=== PATIENT | male | born 1960 | race Caucasian/White ===

== ENCOUNTER → 2016-05-15 | Outpatient (CLI) | payer BC ==
[~2016-05-15] MED LIST: ASPI-808 PO; HYDR-3720 PO; TRAM50TA2 PO
[2016-05-15 11:01] LABS: BASOPHILS % (AUTO) 0 % (0-10); EOSINOPHILS # (AUTO) 0.2 10^3/uL (0.0-0.3); EOSINOPHILS % (AUTO) 3 % (0-10); LYMPHOCYTES # (AUTO) 2.2 X 10^3 (1.0-4.0); LYMPHOCYTES % (AUTO) 31 % (12-44); MEAN CORPUSCULAR HEMOGLOBIN 32 PG (25-34); MEAN CORPUSCULAR HGB CONC 36 G/DL (32-36); MEAN CORPUSCULAR VOLUME 90 FL (80-99); MEAN PLATELET VOLUME 10.5 FL (7.4-10.4); MONOCYTES # (AUTO) 0.4 X 10^3 (0.0-1.0); MONOCYTES % (AUTO) 6 % (0-12); NEUTROPHILS # (AUTO) 4.2 X 10^3 (1.8-7.8); NEUTROPHILS % (AUTO) 59 % (42-75); PLATELET COUNT 172 10^3/uL (130-400); RED BLOOD COUNT 4.81 10^6/uL (4.35-5.85); RED CELL DISTRIBUTION WIDTH 12.9 % (10.0-14.5); WHITE BLOOD COUNT 7.1 10^3/uL (4.3-11.0)
[2016-05-15 11:22] LABS: ALANINE AMINOTRANSFERASE 24 U/L (0-55); ALBUMIN 4.1 G/DL (3.2-4.5); ANION GAP 6 MMOL/L (5-14); ASPARTATE AMINO TRANSFERASE 23 U/L (5-34); BILIRUBIN,TOTAL 0.4 MG/DL (0.1-1.0); BLOOD UREA NITROGEN 10 MG/DL (7-18); BUN/CREATININE RATIO 10; CALCIUM 9.3 MG/DL (8.5-10.1); CARBON DIOXIDE 27 MMOL/L (21-32); CHLORIDE 107 MMOL/L (98-107); CHOLESTEROL 194 MG/DL (< 200); CREATININE SERUM 0.97 MG/DL (0.60-1.30); DIRECT LDL 136 MG/DL (1-129); GFR ESTIMATED > 60; GLUCOSE 147 MG/DL (70-105); MAGNESIUM 2.2 MG/DL (1.8-2.4); SODIUM 140 MMOL/L (135-145); TOTAL PROTEIN 7.5 G/DL (6.4-8.2); TRIGLYCERIDES 196 MG/DL (<150); VLDL CHOLESTEROL 39 MG/DL (5-40)
[2016-05-15 11:44] LABS: THYROID STIMULATING HORMONE 0.64 UIU/ML (0.35-4.94)
== END ==
LOC: LAB 10:39
PROVIDERS: ATTEND Internal Medicine Cardiovascular Disease
DX: I70.212 Atherosclerosis of native arteries of extremities with intermittent claudication, left leg (principal); R94.31 Abnormal electrocardiogram [ECG] [EKG]; Z72.0 Tobacco use
CPT/HCPCS: 36415; 80053; 80061; 83735; 84443; 85025

== ENCOUNTER → 2016-06-03 | Outpatient (CLI) | payer BC | LOC: RAD 11:46 | PROVIDERS: ATTEND Internal Medicine Cardiovascular Disease | DX: I70.212 Atherosclerosis of native arteries of extremities with intermittent claudication, left leg (principal); Z72.0 Tobacco use; R94.31 Abnormal electrocardiogram [ECG] [EKG] | CPT/HCPCS: 93923 ==

== ENCOUNTER 2016-07-22 07:27 | Day surgery (SDC) | payer BC ==
[2016-07-22] VITALS (10 sets, daily range): BP systolic 113–136; BP diastolic 54–81
[~2016-07-22] VITALS: Ht 193 cm; Wt 72.6 kg
[2016-07-22] MEDS ORDERED: NS IV 1000 ML 1,000 ML ONE (07:30)
[2016-07-22] MEDS ORDERED: LIDOCAINE 1% INJ 20 ML (XYLOCAINE) VIAL ONE ×3 (07:30→08:54)
[2016-07-22] MEDS ORDERED: HEParin (CATH LAB) 2,000 ML IV ONE (07:30)
[2016-07-22] MEDS ORDERED: PRAV20TA3 PO (07:49)
[2016-07-22 07:56] LABS: MEAN PLATELET VOLUME 10.3 FL (7.4-10.4); RED BLOOD COUNT 4.7 10^6/uL (4.35-5.85); RED CELL DISTRIBUTION WIDTH 12.9 % (10.0-14.5); WHITE BLOOD COUNT 7.1 10^3/uL (4.3-11.0)
[2016-07-22] MEDS ORDERED: NS IV 1000 ML 1,000 ML IV SCH (08:00)
[2016-07-22 08:05] LABS: INR 0.9 (0.8-1.4); PROTHROMBIN TIME PATIENT 12.2 SEC (12.2-14.7)
[2016-07-22 08:14] LABS: ANION GAP 11 MMOL/L (5-14); BLOOD UREA NITROGEN 12 MG/DL (7-18); BUN/CREATININE RATIO 13; CALCIUM 9.2 MG/DL (8.5-10.1); CARBON DIOXIDE 26 MMOL/L (21-32); CHLORIDE 104 MMOL/L (98-107); CREATININE SERUM 0.95 MG/DL (0.60-1.30); GFR ESTIMATED > 60; GLUCOSE 90 MG/DL (70-105); POTASSIUM 3.3 MMOL/L (3.6-5.0); SODIUM 141 MMOL/L (135-145)
[2016-07-22 08:15] LABS: ALANINE AMINOTRANSFERASE 23 U/L (0-55); ALBUMIN 4.2 G/DL (3.2-4.5); ASPARTATE AMINO TRANSFERASE 23 U/L (5-34); BILIRUBIN,TOTAL 0.7 MG/DL (0.1-1.0); CHOLESTEROL 160 MG/DL (< 200); DIRECT LDL 94 MG/DL (1-129); TOTAL PROTEIN 7.8 G/DL (6.4-8.2); TRIGLYCERIDES 224 MG/DL (<150); VLDL CHOLESTEROL 45 MG/DL (5-40)
[2016-07-22] MEDS ORDERED: diphenhydrAMINE 50 MG/ML INJ (BENADRYL) ONE (08:27)
[2016-07-22] MEDS ORDERED: MIDAZOLAM 5 MG/5 ML (VERSED) VIAL ONE (08:27)
[2016-07-22] MEDS ORDERED: fentaNYL INJECTION 100 MCG/2 ML AMP ONE ×2 (08:27→15:11)
[2016-07-22] MEDS ORDERED: HEParin 1000 UNIT/ML (10ML VIAL) FOR BOLUS ONE (09:17)
[2016-07-22] MEDS ORDERED: NITROGLYCERIN DRIP 25 MG/D5W 0 ML IV ONE (09:17)
[2016-07-22] MEDS ORDERED: CLOPIDOGREL 300 MG (PLAVIX) TABLET PO ONE (10:33)
[2016-07-22] MEDS ORDERED: ASPIRIN 81 MG CHEW (CHILDREN'S ASA) ONE (10:33)
[2016-07-22] MEDS ORDERED: PATIENT MAY USE OWN MEDS, ALL PO SCH (12:30)
--- NOTE | 2016-07-22 13:05 | Cardiac Procedure Note-CS/ASA ---
Pre-Procedure Note Pre-Op Procedure Note H&P Reviewed The H&P was reviewed, patient examined and no changes noted. Date H&P Reviewed: Jul 22, 2016 Time H&P Reviewed: 08:30 Conscious Sedation Pre-Proced Time Reviewed: 08:30 ASA Class: 3 Airway Mallampati Classification: (wichita appropriate class) I. II. III, IV Lungs Heart ASA score ASA 1: a normal healthy patient ASA 2: a patient with a mild systemic disease (mid diabetes, controlled hypertension, obesity ASA 3: a patient with a severe systemic disease that limits activity (angina , COPD, prior Myocardial infarction) ASA 4: a patient with an incapacitating disease that is a constant threat to life (CHF, renal failure) ASA 5: a moribund patient not expected to survive 24 hrs. (ruptured aneurysm) ASA 6: a declared brain patient whose organs are being harvested. For emergent operations, add the letter E after the classification Grade 2 Sedation Plan: Analgesia, Amnesia, Plan communicated to team members, Discussed options with patient/fam, Discussed risks with patient/fam Note The patient is an appropriate candidate to undergo the planned procedure, sedation, and anesthesia. The patient immediately re-assessed prior to indication. ZEE SOUSA MD FACP FACC CCDS Jul 22, 2016 13:05
--- NOTE | 2016-07-22 13:26 | CARDIAC CATHETERIZATION ---
DATE OF SERVICE: 07/22/2016 PERIPHERAL ANGIOGRAPHY AND INTERVENTION REPORT INDICATION FOR PROCEDURE: The patient is a 56-year-old man who has multiple coronary artery disease risk factors and is known to have peripheral arterial disease. He has been experiencing leg claudication and segmental pressures have been normal and indicative of significant bilateral peripheral arterial disease. Informed consent was obtained for peripheral angiography and ad hoc peripheral intervention, if needed. PROCEDURE: He was brought to the cardiac catheterization laboratory in a fasting state. Both groins were prepared and draped in the usual sterile fashion. Lidocaine 1% for local anesthesia. With considerable difficulty, we were able to access the right common femoral artery and able to advance a 5-[place] sheath using the Seldinger technique. This allowed angiography of the abdominal aorta with a 5-[place] pigtail catheter. The pigtail was then pulled back to the level just above the aortoiliac bifurcation and bilateral leg artery angiography was performed with runoff down to the level of the ankles. PERCUTANEOUS INTERVENTION TO THE LEFT COMMON ILIAC, RIGHT COMMON ILIAC AND LEFT EXTERNAL ILIAC ARTERIES: Following completion of the diagnostic procedure, we gained access into the left common femoral artery using the Seldinger technique. This was with the intent to carry out percutaneous intervention to the left common and external iliac arteries that were completely occluded. We used a 6-[place] sheath. We were then able to advance a [employer] wire across the lesion and the tip of the wire was placed in the descending thoracic aorta and we subsequently carried out balloon angioplasty with 7.0 mm x 100 mm balloon and an 8.0 mm x 60 mm balloon. The patient had a previously placed stent in the left common iliac artery, which is known to be an 8 mm x 57 mm stent placed by Dr. Muhammad at [facility] in 05/2013. Following balloon angioplasty, antegrade flow was restored. However, there was still considerable stenosis beyond the distal edge of the stent in the left external iliac artery. We proceeded with stenting to this part of the vessel. We used a self-expanding 7.0 mm x 100 mm stent. This was deployed to cover the lesion. The proximal portion of the stent extends into the distal portion of the previous stent. We then carried out balloon angioplasty of the overlapping areas in the middle portion of the newly placed stent with an 8.0 mm x 60 mm balloon. Full stent expansion was demonstrated. The stenosis was reduced from 100% to 0% and there was normal antegrade flow in the iliac and femoral arteries on the left side. During the balloon expansion of the proximal left common iliac artery, we also carried out kissing balloon angioplasty of the ostia of both common iliac arteries. On the L side we used first 7.0 x 100 mm balloon and then 8 x 60 mm baloon. On the right side, after exchanging the sheath over a wire for a 6-[place] sheath, we had advanced an 0.035 inch wire, over which we were able to advance a 7.0 mm x 60 mm balloon for kissing balloon angioplasty. The patient received a total of 6000 units of intravenous heparin. At the end of the procedure, we had carried out angiography of the femoral artery through the sheath, but the site of sheath deployment was not suitable for device closure. The sheaths were sutured in place and the patient was transferred to the floor for manual sheath removal. He tolerated the procedure well. ABDOMINAL AORTIC ANGIOGRAPHY: Did not indicate any significant abdominal aortic aneurysm or dissection. The renal arteries do not exhibit significant disease. The left common iliac artery was found to be occluded in its proximal portion. BILATERAL ILIAC ARTERY ANGIOGRAPHY: Indicated complete proximal occlusion of the left common iliac artery. This was a long lesion extending down to the distal portion of the left common iliac artery. To this, successful balloon angioplasty, followed by stenting, was carried out as detailed above. Following balloon angioplasty and stenting, there is 0% residual stenosis. The superficial and deep femoral arteries and the popliteal arteries on the left side are intact and do not exhibit significant disease. There is a 3-vessel runoff on the left side. On the right side, the left common iliac artery had approximately 50-60% stenosis. Kissing balloon angioplasty was carried out to both ostia (both common iliac arteries) and there is less than 30% residual stenosis in both ostia. The right external iliac artery, the right common femoral and the right deep femoral arteries are intact. The right superficial femoral artery is occluded in its distal portion. The very distal part of the right superficial femoral artery reconstitutes via collaterals and the popliteal artery is intact with an intact trifurcation. CONCLUSIONS: 1. 100% occlusion of the proximal left common iliac and the left external iliac arteries, to which successful balloon angioplasty and, then, successful stenting was carried out today, as detailed above. Following balloon angioplasty to a previously placed 8.0 mm x 57 mm stent (05/[address] Muhammad at [facility]) and placement of a new 7.0 mm x 100 mm stent in the left common and external iliac arteries, there is 0% residual stenosis and there is normal antegrade flow. 2. Balloon angioplasty of the ostia of both common iliac arteries with a residual stenosis of less than 30%. 3. 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 DISCUSSION AND RECOMMENDATIONS: Dual antiplatelet therapy has been initiated. He is being hospitalized for observation after today's procedure. Risk factor modification has been reviewed. Further recommendations will be based on the hospital course. Job ID: [id number] DocumentID: [id number] Dictated Date: 07/22/2016 10:46:38 Crm Coordinator Date: 07/22/2016 12:23:37 Dictated By: ZEE SOUSA MD, MA, FACP, FACC, MTDD
[2016-07-22] MEDS ORDERED: ATROPINE INJ 0.4 MG/ML SDV ONE (13:43)
[2016-07-22] MEDS: NS IV 1000 ML 1,000 ML IV SCH ×2 (15:08→22:27)
[2016-07-22] MEDS: fentaNYL INJECTION 100 MCG/2 ML AMP IVP PRN ×4 (16:41→22:08)
[2016-07-22] MEDS ORDERED: SIMvastatin 10 MG (ZOCOR) TAB PO SCH (21:00)
[2016-07-23] VITALS: BP 136/64
[2016-07-23] MEDS: fentaNYL INJECTION 100 MCG/2 ML AMP IVP PRN ×3 (00:45→05:48)
[2016-07-23 04:00] VITALS: BP 111/66
[2016-07-23 04:11] LABS: MEAN PLATELET VOLUME 10.7 FL (7.4-10.4); RED BLOOD COUNT 4.46 10^6/uL (4.35-5.85); RED CELL DISTRIBUTION WIDTH 12.7 % (10.0-14.5); WHITE BLOOD COUNT 8.6 10^3/uL (4.3-11.0)
[2016-07-23 04:27] LABS: ANION GAP 10 MMOL/L (5-14); BLOOD UREA NITROGEN 10 MG/DL (7-18); BUN/CREATININE RATIO 13; CALCIUM 8.7 MG/DL (8.5-10.1); CARBON DIOXIDE 21 MMOL/L (21-32); CHLORIDE 107 MMOL/L (98-107); GFR ESTIMATED > 60; GLUCOSE 108 MG/DL (70-105); POTASSIUM 3.9 MMOL/L (3.6-5.0); SODIUM 138 MMOL/L (135-145)
[2016-07-23 08:00] VITALS: BP 109/69
--- NOTE | 2016-07-23 08:08 | Progress Note-Cardiology ---
Cardiology SOAP Progress Note Subjective: No leg or groin discomfort No cp or palp or syncope Wishes to go home Objective: I&O/Vital Signs Vital Sign - Last 12Hours 07/22/16 07/22/16 07/23/16 07/23/16 21:00 22:00 00:00 01:00 Temp 99.8 Pulse 96 95 111 104 Resp 16 11 16 B/P (MAP) 118/62 127/64 136/64 Pulse Ox 99 99 98 07/23/16 04:00 Temp 100.1 Pulse 105 Resp 18 B/P (MAP) 111/66 Pulse Ox 96 Intake and Output 07/23/16 00:00 Intake Total 1900 ml Balance 1900 ml Weight (Pounds): 160 Weight (Ounces): 0.0 Weight (Calculated Kilograms): [id number] Groin site without hematoma: Yes Bruising: moderated bruising (mild bruising in the R groin; mod bruising and mild swelling in the L groin) Constitutional: AAO x 3, well-developed, well-nourished Respiratory: No accessory muscle use, No respiratory distress, lungs clear to percussion, lungs clear to auscultation Cardiovascular: regular rate-rhythm, S1 and S2, systolic murmur (soft MARCO A at cardiac base) Gastrointestional: No tender, soft, No guarding, No rebound, audible bowel sounds Extremities: No clubbing, No cyanosis, No significant edema Neurologic/Psychiatric: oriented x 3, grossly intact, power is 5/5 both on sides Skin: No rash on exposed areas, No ulcerations on exposed areas Results/Procedures: Labs Laboratory Tests 07/22/16 13:02: Activated Partial Thromboplast Time 50H 07/23/16 03:39: White Blood Count 8.6, Red Blood Count 4.46, Hemoglobin 14.0, Hematocrit 40, Mean Corpuscular Volume 90, Mean Corpuscular Hemoglobin 31, Mean Corpuscular Hemoglobin Concent 35, Red Cell Distribution Width 12.7, Platelet Count 163, Mean Platelet Volume 10.7H, Sodium Level 138, Potassium Level 3.9, Chloride Level 107, Carbon Dioxide Level 21, Anion Gap 10, Blood Urea Nitrogen 10, Creatinine 0.80, Estimat Glomerular Filtration Rate > 60, BUN/Creatinine Ratio 13, Glucose Level 108H, Calcium Level 8.7 Laboratory Tests 07/22/16 07:45 07/23/16 03:39 A/P: Assessment: PAD. Last peripheral angio and intervention on 07/22/16: 1) 100% occlusion of the proximal left common iliac and the left external iliac arteries, to which successful balloon angioplasty and, then, successful stenting was carried out today, as detailed above. Following balloon angioplasty to a previously placed 8.0 mm x 57 mm stent (05/[address] Muhammad at [facility]) and placement of a new 7.0 mm x 100 mm stent in the left common and external iliac arteries, there is 0% residual stenosis and there is normal antegrade flow. 2) Balloon angioplasty of the ostia of both common iliac arteries with a residual stenosis of less than 30%. 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 Trivial to mild MR and TR. No evidence of significant valvular stenosis. 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
[2016-07-23] MEDS ORDERED: ASPI-999 PO (08:16)
[2016-07-23] MEDS ORDERED: CLOP75TA28 PO (08:16)
--- NOTE | 2016-07-23 08:16 | Discharge Inst-Post CATH ---
Discharge Inst-CATH Post Cardiac Cath D/C Inst Follow Up/Plan F/u at our office next week CARDIAC CATH DISCHARGE INSTRUCTIONS *Hold Metformin for 48 hours post heart cath. ACTIVITY * Go Home directly and rest. * Limit activity of the leg (or wrist if it was used) for 7 days including aerobics, swimming, jogging, bicycling, etc. * Restrict stair-climbing for 7 days if possible, if not, climb up with your non -cath leg, then bring together on the same step. * Avoid lifting, pushing, pulling or excessive movement of the affected extremity for 7 days. * Customary sexual activity may be resumed after 2 days-use caution not to use a position that strains or causes pain to the affected extremity. * No driving for 24 hours. * NO SMOKING. * Avoid straining for bowel movements for 7 days. * Gentle walking on level ground is allowed. * Returning to work will depend on the type of procedure and the results. Your doctor will discuss this with you. CALL YOUR DOCTOR FOR ANY OF THE FOLLOWING: *If bleeding from the puncture site occurs- Apply gentle pressure to site with clean cloth and call your doctor or EMS. * If a knot or lump forms under the skin, increases in size, or causes pain. * If bruising appears to be worsening or moving further down your leg instead of disappearing. * Temperature above 101 F. CARE OF YOUR GROIN INCISION; * Bruising or purple discoloration of the skin near the puncture site is common. * You may shower only, no bathtub bathing for 5 days. Be careful to avoid slipping as your leg may feel stiff. * If a closure device was used on your femoral artery, please see the attached guide regarding care of the device and your leg. * REMOVE the dressing from your groin the next day after your procedure in the shower. CARE OF YOUR WRIST INCISION; * Bruising or purple discoloration of the skin near the puncture site is common. * You may shower. * DO NOT submerge wrist. * Remove dressing in 24 hours. ZEE SOUSA MD [facility] CCDS Jul 23, 2016 08:16
--- NOTE | 2016-07-23 08:17 | Discharge Inst-Cardiology ---
Discharge Inst-Cardiac Discharge Medications New Medications: Aspirin (Aspirin) 81 Mg Tab.chew 81 MG PO DAILY, #90 TAB 3 Refills Clopidogrel Bisulfate (Clopidogrel) 75 Mg Tablet 75 MG PO DAILY for 90 Days, #90 TAB 3 Refills Continued Medications: Pravastatin Sodium (Pravastatin Sodium) 20 Mg Tablet 20 MG PO DAILY, TAB Discontinued Medications: Aspirin (Aspirin) 325 Mg Tablet 325 MG PO DAILY, TAB Patient Instructions Patient Instructions: No tobacco use ZEE SOUSA MD FACP FAC CCDS Jul 23, 2016 08:17
--- NOTE | 2016-07-23 08:21 | Cardiology Discharge Summary ---
Diagnosis/Chief Complaint Date of Admission 07/22/16 Date of Discharge 07/23/16 Final/Discharge Diagnosis PAD. Last peripheral angio and intervention on 07/22/16: 1) 100% occlusion of the proximal left common iliac and the left external iliac arteries, to which successful balloon angioplasty and, then, successful stenting was carried out today, as detailed above. Following balloon angioplasty to a previously placed 8.0 mm x 57 mm stent (05/[address] Muhammad at [facility]) and placement of a new 7.0 mm x 100 mm stent in the left common and external iliac arteries, there is 0% residual stenosis and there is normal antegrade flow. 2) Balloon angioplasty of the ostia of both common iliac arteries with a residual stenosis of less than 30%. 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 Trivial to mild MR and TR. No evidence of significant valvular stenosis. 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 Please refer to peripheral angio and intervention report For condition at discharge please refer to today's progress note Time spent in pt interview, exam, labs review, discussion of results, answering questions, preparing discharge, and writing notes: 7:50 am to 8:20 Discharge Summary Procedures None. Hospital Course Pending Labs Laboratory Tests 07/23/16 03:39: White Blood Count 8.6, Red Blood Count 4.46, Hemoglobin 14.0, Hematocrit 40, Mean Corpuscular Volume 90, Mean Corpuscular Hemoglobin 31, Mean Corpuscular Hemoglobin Concent 35, Red Cell Distribution Width 12.7, Platelet Count 163, Mean Platelet Volume 10.7, Sodium Level 138, Potassium Level 3.9, Chloride Level 107, Carbon Dioxide Level 21, Anion Gap 10, Blood Urea Nitrogen 10, Creatinine 0.80, Estimat Glomerular Filtration Rate > 60, BUN/Creatinine Ratio 13, Glucose Level 108, Calcium Level 8.7 Discussion & Recommendations Home Medications Reviewed patient Home Medication Reconciliation Form Discharge Home Medications: Reviewed and agree with Discharge Medication list on patient's Discharge Instruction sheet Instructions to patient/family F/u at our office next week ZEE SOUSA MD FACP FACC CCDS Jul 23, 2016 08:21
[2016-07-23] MEDS ORDERED: ASPIRIN E.C. 81 MG (ECOTRIN) TAB PO SCH (09:00)
[2016-07-23] MEDS ORDERED: CLOPIDOGREL 75 MG (PLAVIX) TABLET PO SCH (09:00)
== END 2016-07-23 09:20 | disposition home or self-care (01) ==
LOC: CATH 07:27 → ICU 10:38 → CATH 07-23 09:20
PROVIDERS: ATTEND Internal Medicine Cardiovascular Disease
DX: I70.213 Atherosclerosis of native arteries of extremities with intermittent claudication, bilateral legs (principal); I70.92 Chronic total occlusion of artery of the extremities; R94.31 Abnormal electrocardiogram [ECG] [EKG]; Z72.0 Tobacco use; Z95.820 Peripheral vascular angioplasty status with implants and grafts
CPT/HCPCS: 36200; 36415; 37220; 37221; 75625; 75716; 80048; 80053; 80061; 85027; 85347; 85610; 85730; 87081; 93005

== ENCOUNTER 2016-08-05 07:07 | Day surgery (SDC) | payer BC ==
[~2016-08-05 07:07] MED LIST changes: +ASPI-999 PO; +CLOP75TA28 PO; +PRAV20TA3 PO
[2016-08-05] MEDS ORDERED: HEParin (CATH LAB) 2,000 ML IV ONE (07:10)
[2016-08-05] MEDS ORDERED: NS IV 1000 ML 1,000 ML ONE (07:10)
[2016-08-05] MEDS ORDERED: NITROGLYCERIN DRIP 25 MG/D5W 0 ML IV ONE (07:53)
[2016-08-05] MEDS ORDERED: diphenhydrAMINE 50 MG/ML INJ (BENADRYL) ONE (07:53)
[2016-08-05] MEDS ORDERED: MIDAZOLAM 5 MG/5 ML (VERSED) VIAL ONE ×2 (07:53→09:31)
[2016-08-05] MEDS ORDERED: HEParin 1000 UNIT/ML (10ML VIAL) FOR BOLUS ONE (07:53)
[2016-08-05] MEDS ORDERED: fentaNYL INJECTION 100 MCG/2 ML AMP ONE ×2 (07:53→09:15)
[2016-08-05] MEDS ORDERED: NS IV 1000 ML 1,000 ML IV SCH (08:00)
[2016-08-05] MEDS ORDERED: CLOPIDOGREL 300 MG (PLAVIX) TABLET PO ONE (11:14)
[2016-08-05] MEDS ORDERED: ASPIRIN 81 MG CHEW (CHILDREN'S ASA) ONE (11:14)
[2016-08-05] MEDS ORDERED: PATIENT MAY USE OWN MEDS, ALL PO SCH (11:15)
[2016-08-05] MEDS: fentaNYL INJECTION 100 MCG/2 ML AMP IVP PRN ×2 (15:29→16:30)
[2016-08-05] MEDS: NS IV 1000 ML 1,000 ML IV SCH ×2 (15:30→21:18)
[2016-08-05] MEDS ORDERED: ACETAMINOPHEN 500 MG TAB (TYLENOL) PO PRN (18:00)
[2016-08-05] MEDS ORDERED: TEMAZEPAM 15 MG (RESTORIL) CAP PO PRN (18:00)
[2016-08-05] MEDS ORDERED: SIMvastatin 10 MG (ZOCOR) TAB PO SCH (21:00)
[2016-08-06] MEDS: NS IV 1000 ML 1,000 ML IV SCH (07:59)
[2016-08-06] MEDS ORDERED: ASPIRIN 81 MG CHEW (CHILDREN'S ASA) PO SCH (09:00)
[2016-08-06] MEDS ORDERED: CLOPIDOGREL 75 MG (PLAVIX) TABLET PO SCH (09:00)
== END 2016-08-06 10:15 | disposition home or self-care (01) ==
DX: I70.213 Atherosclerosis of native arteries of extremities with intermittent claudication, bilateral legs (principal); I45.10 Unspecified right bundle-branch block; I70.92 Chronic total occlusion of artery of the extremities; Z79.899 Other long term (current) drug therapy; Z72.0 Tobacco use; Z95.820 Peripheral vascular angioplasty status with implants and grafts

== ENCOUNTER 2017-01-29 07:27 | Observation (INO) | payer BC ==
[2017-01-29] VITALS (12 sets, daily range): BP systolic 105–138; BP diastolic 52–90
[~2017-01-29] VITALS: Ht 193 cm; Wt 72.4 kg
[2017-01-29] MEDS ORDERED: NS IV 1000 ML 1,000 ML IV ONE (07:34)
[2017-01-29] MEDS ORDERED: NALOXONE 2 MG/2 ML (NARCAN) SYR IV ONE (07:45)
[2017-01-29 07:57] LABS: BASOPHILS % (AUTO) 0 % (0-10); EOSINOPHILS # (AUTO) 0.4 10^3/uL (0.0-0.3); EOSINOPHILS % (AUTO) 4 % (0-10); LYMPHOCYTES # (AUTO) 1.5 X 10^3 (1.0-4.0); LYMPHOCYTES % (AUTO) 15 % (12-44); MEAN CORPUSCULAR HEMOGLOBIN 31 PG (25-34); MEAN CORPUSCULAR HGB CONC 35 G/DL (32-36); MEAN CORPUSCULAR VOLUME 89 FL (80-99); MEAN PLATELET VOLUME 10.1 FL (7.4-10.4); MONOCYTES # (AUTO) 0.6 X 10^3 (0.0-1.0); MONOCYTES % (AUTO) 6 % (0-12); NEUTROPHILS # (AUTO) 7.2 X 10^3 (1.8-7.8); NEUTROPHILS % (AUTO) 75 % (42-75); PLATELET COUNT 205 10^3/uL (130-400); RED BLOOD COUNT 4.74 10^6/uL (4.35-5.85); RED CELL DISTRIBUTION WIDTH 12.8 % (10.0-14.5); WHITE BLOOD COUNT 9.6 10^3/uL (4.3-11.0)
[2017-01-29 08:18] LABS: ALANINE AMINOTRANSFERASE 34 U/L (0-55); ALBUMIN 4.1 GM/DL (3.2-4.5); ALCOHOL < 10 MG/DL (<10); ANION GAP 11 MMOL/L (5-14); ASPARTATE AMINO TRANSFERASE 30 U/L (5-34); BILIRUBIN,TOTAL 0.5 MG/DL (0.1-1.0); BLOOD UREA NITROGEN 13 MG/DL (7-18); BUN/CREATININE RATIO 15; CALCIUM 8.9 MG/DL (8.5-10.1); CARBON DIOXIDE 24 MMOL/L (21-32); CHLORIDE 103 MMOL/L (98-107); CREATININE SERUM 0.85 MG/DL (0.60-1.30); GFR ESTIMATED > 60; GLUCOSE 92 MG/DL (70-105); POTASSIUM 4.2 MMOL/L (3.6-5.0); SALICYLATE < 5.0 MG/DL (5.0-20.0); SODIUM 138 MMOL/L (135-145); TOTAL PROTEIN 7.6 GM/DL (6.4-8.2)
--- NOTE | 2017-01-29 08:20 | Diagnostic Imaging Report ---
PROCEDURE: CT head and CT cervical spine without contrast. TECHNIQUE: Multiple contiguous axial images were obtained through the brain and cervical spine without the use of intravenous contrast. Sagittal and coronal reformations through the cervical spine were then performed. INDICATION: Injury. FINDINGS: CT head: No intracranial hemorrhage, edema, or mass effect. The brain parenchyma demonstrates symmetric basal ganglial calcifications with no focal edema or mass effect seen. No hydrocephalus. No extra-axial fluid collection is seen. The calvarium, the paranasal sinuses, and orbits appear grossly unremarkable. CT cervical spine: There is satisfactory alignment of the cervical spine. The vertebral body heights are preserved. Disc heights are also preserved. No significant posterior osteophytes are seen. There is moderate narrowing of the left neural foramen at C3-C4 from osteophytes of the adjacent uncovertebral and facet joints. No fracture is seen. IMPRESSION: CT head: No intracranial hemorrhage. CT cervical spine: No fracture seen. Dictated by: Dictated on workstation # [id number]
[2017-01-29 08:22] LABS: ACETAMINOPHEN < 10 UG/ML (10-30)
--- NOTE | 2017-01-29 08:33 | ED Psychosocial ---
General Chief Complaint: Altered Mental Status Stated Complaint: OD,ETOH Nursing Triage Note: PT BROUGHT IN BY [facility] WITH C/O POSSIBLE OVERDOSE. PT STATES THAT THEY WERE "DRINKING A LITTLE" LAST NOC AND GOT INTO AN ARGUMENT. SHE STATES THAT AROUND MIDNIGHT PT REPORTEDLY TOOK AN UNKNOWN AMOUNT OF 3 MG LUNESTA. THERE APPEARS TO BE 6 PILLS MISSING FROM BOTTLE. PT IS DROWSY UPON ARRIVAL, BUT AWAKENS TO VERBAL STIMULI. PT ALSO STATES THAT PT STATED SHE WOULD BE BETTER OFF WITHOUT HIM PRIOR TO TAKING PILLS. PT ALSO HAS ABRASIONS TO FACE AND KNEE. C COLLAR PLACED AT THIS TIME PER DR ASHER. Source: patient, family, EMS Exam Limitations: clinical condition History of Present Illness Time seen by provider: 07:29 Initial Comments This 56 gentleman presents to the emergency room via EMS after overdosing on Lunesta. His activated EMS after she noted he was not able to walk or otherwise function on his own. He was incontinent of urine. EMS had reported no fall but upon 's arrival, she notes he did fall into a doorway. He has minor abrasions on his left knee and his right forehead/face. GCS is 13. reports they got into an argument when drinking alcohol last night regarding use of an e-cigarette and sharing it with their son. Patient became upset and stated he took 15-20 Lunesta. His received that text message around 21: 30. states he has never expressed any serious suicidal ideation in the past. Although EMS was unaware of trauma, a c-collar was placed upon arrival as the abrasions were noted. Based on date of filling and pelvic count in the Lunesta bottle, it is estimated that he took between 6 and 20 tablets. Poison control was contacted and recommended observation and IV hydration. Patient's overdosing with this quantity of Lunesta rarely require invasive support. Vital signs are normal upon arrival. Patient is answering some questions but is not coherent. He repeatedly asks for coffee. Allergies and Home Medications Allergies Coded Allergies: Penicillins (Unverified Allergy, Mild, 10/24/08) cefaclor (Unverified Allergy, Mild, 10/24/08) Home Medications Aspirin 81 Mg Tab.chew, 81 MG PO DAILY, #90 Ref 3 Prescribed by: ZEE SOUSA on 07/23/16 0816 Clopidogrel Bisulfate 75 Mg Tablet, 75 MG PO DAILY for 90 Days, #90 Ref 3 Prescribed by: ZEE SOUSA on 07/23/16 0816 Pravastatin Sodium 20 Mg Tablet, 20 MG PO DAILY, (Reported) Constitutional: see HPI EENTM: see HPI Respiratory: no symptoms reported Cardiovascular: no symptoms reported Gastrointestinal: no symptoms reported Genitourinary: no symptoms reported Musculoskeletal: see HPI Skin: see HPI Psychiatric/Neurological: See HPI Past Zjbuvsr-Lnvfhw-Ndsvdz Hx Patient Social History Alcohol Use: Occasionally Uses Recreational Drug Use: No Smoking Status: Current Everyday Smoker Type Used: Cigarettes Recent Foreign Travel: No Contact w/Someone Who Travel: No Recent Infectious Disease Expo: No Recent Hopitalizations: No Physical Abuse: No Sexual Abuse: No Seasonal Allergies Seasonal Allergies: No Surgeries History of Surgeries: Yes (RIGHT HAND FINGER AMPUTATION, HERNIAS X2 INGUINAL, TOE TENDON, AORTIC STENT) Respiratory History of Respiratory Disorde: No Cardiovascular History of Cardiac Disorders: Yes (HX OF AORTIC STENT) Cardiac Disorders: Deep Vein Thrombosis Neurological History of Neurological Disord: No Genitourinary History of Genitourinary Disor: No Gastrointestinal History of Gastrointestinal Di: No Musculoskeletal History of Musculoskeletal Dis: No Endocrine History of Endocrine Disorders: No HEENT History of HEENT Disorders: No Cancer History of Cancer: No Psychosocial History of Psychiatric Problem: Yes Behavioral Health Disorders: Sleep Difficulties Suicide Risk Score: 6 Integumentary History of Skin or Integumenta: No Physical Exam Vital Signs Vital Sign - Last 12Hours 01/29/17 07:30 Temp 96.7 Pulse 78 Resp 7 B/P (MAP) 145/91 (109) Pulse Ox 98 O2 Delivery Room Air Capillary Refill : Less Than 3 Seconds General Appearance: WD/WN, other (hypersomnolent) HEENT: PERRL/EOMI, normal ENT inspection, pharynx normal Neck: non-tender, supple, normal inspection Respiratory: lungs clear, normal breath sounds, no respiratory distress, no accessory muscle use Cardiovascular: regular rate, rhythm, no edema, no murmur Gastrointestinal: normal bowel sounds, non tender, soft Extremities: no pedal edema, other (mild abrasion on left knee) Neurologic/Psychiatric: other (hypersomnolent, does respond to questions but not appropriately, moves all 4 extremities independently, GCS 13) Skin: normal color, warm/dry Progress/Results/Core Measures Results/Orders Lab Results Laboratory Tests Test 01/29/17 07:39 01/29/17 07:49 Range/Units Glucometer 100 70-110 MG/DL White Blood Count 9.6 4.3-11.0 10^3/uL Red Blood Count 4.74 4.35-5.85 10^6/uL Hemoglobin 14.8 13.3-17.7 G/DL Hematocrit 42 40-54 % Mean Corpuscular Volume 89 80-99 FL Mean Corpuscular Hemoglobin 31 25-34 PG Mean Corpuscular Hemoglobin Concent 35 32-36 G/DL Red Cell Distribution Width 12.8 10.0-14.5 % Platelet Count 205 130-400 10^3/uL Mean Platelet Volume 10.1 7.4-10.4 FL Neutrophils (%) (Auto) 75 42-75 % Lymphocytes (%) (Auto) 15 12-44 % Monocytes (%) (Auto) 6 0-12 % Eosinophils (%) (Auto) 4 0-10 % Basophils (%) (Auto) 0 0-10 % Neutrophils # (Auto) 7.2 1.8-7.8 X 10^3 Lymphocytes # (Auto) 1.5 1.0-4.0 X 10^3 Monocytes # (Auto) 0.6 0.0-1.0 X 10^3 Eosinophils # (Auto) 0.4 H 0.0-0.3 10^3/uL Basophils # (Auto) 0.0 0.0-0.1 10^3/uL Sodium Level 138 135-145 MMOL/L Potassium Level 4.2 3.6-5.0 MMOL/L Chloride Level 103 98-107 MMOL/L Carbon Dioxide Level 24 21-32 MMOL/L Anion Gap 11 5-14 MMOL/L Blood Urea Nitrogen 13 7-18 MG/DL Creatinine 0.85 0.60-1.30 MG/DL Estimat Glomerular Filtration Rate > 60 BUN/Creatinine Ratio 15 Glucose Level 92 70-105 MG/DL Calcium Level 8.9 8.5-10.1 MG/DL Total Bilirubin 0.5 0.1-1.0 MG/DL Aspartate Amino Transf (AST/SGOT) 30 5-34 U/L Alanine Aminotransferase (ALT/SGPT) 34 0-55 U/L Alkaline Phosphatase 73 40-136 U/L Total Protein 7.6 6.4-8.2 GM/DL Albumin 4.1 3.2-4.5 GM/DL Salicylates Level < 5.0 L 5.0-20.0 MG/DL Acetaminophen Level < 10 L 10-30 UG/ML Serum Alcohol < 10 <10 MG/DL My Orders Orders - JUS ASHER MD Ct Head/Cervical Spine Wo (01/29/17 07:34) Acetaminophen (01/29/17 07:34) Alcohol (01/29/17 07:34) Cbc With Automated Diff (01/29/17 07:34) Comprehensive Metabolic Panel (01/29/17 07:34) Drug Screen Stat (Urine) (01/29/17 07:34) Salicylate (01/29/17 07:34) Thyroid Analyzer (01/29/17 07:34) Ua Culture If Indicated (01/29/17 07:34) Accucheck Stat ONCE (01/29/17 07:34) Saline Lock/Iv-Start (01/29/17 07:34) Ns Iv 1000 Ml (Sodium Chloride 0.9%) (01/29/17 07:34) Accucheck Stat ONCE (01/29/17 07:34) Naloxone Injection (Narcan Injection) (01/29/17 07:45) Medications Given in ED Current Medications Medications Dose Ordered Sig/Marilee Route Start Time Stop Time Status Last Admin Dose Admin Sodium Chloride 1,000 ml @ 0 mls/hr Q0M ONCE IV 01/29/17 07:34 01/29/17 07:37 DC 01/29/17 08:17 0 MLS/HR Vital Signs/I&O Vital Sign - Last 12Hours 01/29/17 07:30 Temp 96.7 Pulse 78 Resp 7 B/P (MAP) 145/91 (109) Pulse Ox 98 O2 Delivery Room Air Blood Pressure Mean: 109 Point of Care Testing Finger Stick Blood Glucose: 100 Progress Note : Progress Note IV hydration was initiated. Patient was gradually becoming more alert and talkative. Narcan was considered but not administered as patient was improving and reports there are no narcotics in the home. Presentation is consistent with Lunesta overdose. Patient will be admitted to the ICU for observation in anticipation of a psychiatric evaluation when he is alert enough. Diagnostic Imaging Diagonstic Imaging: CT Plain Films/CT/US/NM/MRI: c-spine, head Comments CT head and C-spine viewed by me and report reviewed. See report below: NAME: WILLIAM AVILA [facility] REC#: [id number] PT STATUS: REG ER : 1960 PHYSICIAN: JUS ASHER MD ADMIT DATE: 01/29/17/ER Draft Date of Exam:01/29/17 CT HEAD/CERVICAL SPINE WO PROCEDURE: CT head and CT cervical spine without contrast. TECHNIQUE: Multiple contiguous axial images were obtained through the brain and cervical spine without the use of intravenous contrast. Sagittal and coronal reformations through the cervical spine were then performed. INDICATION: Injury. FINDINGS: CT head: No intracranial hemorrhage, edema, or mass effect. The brain parenchyma demonstrates symmetric basal ganglial calcifications with no focal edema or mass effect seen. No hydrocephalus. No extra-axial fluid collection is seen. The calvarium, the paranasal sinuses, and orbits appear grossly unremarkable. CT cervical spine: There is satisfactory alignment of the cervical spine. The vertebral body heights are preserved. Disc heights are also preserved. No significant posterior osteophytes are seen. There is moderate narrowing of the left neural foramen at C3-C4 from osteophytes of the adjacent uncovertebral and facet joints. No fracture is seen. IMPRESSION: CT head: No intracranial hemorrhage. CT cervical spine: No fracture seen. Dictated on workstation # [id number] Dict: 01/29/17 0807 Trans: 01/29/17 0820 [id number] Interpreted by: CECY PARMAR MD Departure Communication (Admissions) Time/Spoke to Admitting Phy: 08:[address] Shrestha Time/Spoke to Consulting Phy: 08:47 Communication/Consulting Dr. Green Impression Impression: Primary Impression: Medication overdose Qualified Codes: T50.902A - Poisoning by unspecified drugs, medicaments and biological substances, intentional self-harm, initial encounter Additional Impression: Altered mental status Qualified Codes: R40.1 - Stupor Disposition: 09 ADMITTED INPATIENT Condition: Improved Admissions Decision to Admit Reason: Admit from ER (General) Decision to Admit/Date: Jan 29, 2017 Time/Decision to Admit Time: 07:40 Departure-Patient Inst. Referrals: SYLVIA SHRESTHA DO (PCP/Family) Primary Care Physician JUS ASHER MD Jan 29, 2017 08:33
[2017-01-29] MEDS ORDERED: CATHETER FLUSH 10 ML SYR IV PRN (09:30)
[2017-01-29] MEDS ORDERED: ONDANSETRON 4 MG/2 ML (SDV) Z0FRAN IV PRN (09:30)
[2017-01-29] MEDS ORDERED: ASPI81TA42 PO (11:09)
[2017-01-29] MEDS ORDERED: ESZO3TAB38 PO (11:09)
[2017-01-29] MEDS ORDERED: CLOP75TA69 PO (11:09)
[2017-01-29] MEDS ORDERED: INFLUENZA TRIvalent 2017-2018 0.5 ML/45 MCG SYR IM ONE (12:15)
[2017-01-29] MEDS: NS IV 1000 ML 1,000 ML IV SCH ×2 (13:40→17:30)
--- NOTE | 2017-01-29 18:31 | History & Physicial ---
History of Present Illness History of Present Illness Reason for visit/HPI This is a 56 year old male who was brought to the emergency room via EMS after ingestion of an unknown amount of Lunesta. He and his had been drinking the night before and got into an argument over and e-cigarette that he was sharing with their son. He apparently then took lunesta and his became concerned when she was unable to arouse him. He had also sustained a fall at some point and had abrasions to his right knee and left face. His CT of the head and cervical spine were negative in the emergency room. Poison control was contacted and the protocol for lunesta overdose is observation as it has to wear off and intubation is rarely needed. He will be admitted to the ICU and will have a psych evaluation once medically stable and awake and alert. Date of Admission Jan 29, 2017 at 8:42 am Date Seen by Provider: Jan 29, 2017 Time Seen by Provider: 18:26 I consulted on this patient on 01/29/17 18:26 Attending Physician Janneth Shrestha DO Admitting Physician Janneth Shrestha DO Consult Allergies and Home Medications Allergies Coded Allergies: Penicillins (Unverified Allergy, Mild, 10/24/08) cefaclor (Unverified Allergy, Mild, 10/24/08) Home Medications Aspirin 81 Mg Tab.chew, 81 MG PO DAILY, (Reported) Clopidogrel Bisulfate 75 Mg Tablet, 75 MG PO DAILY, (Reported) Eszopiclone 3 Mg Tablet, 3 MG PO HS, (Reported) Past Gpfgqul-Dmdrvz-Wjbkxc Hx Patient Social History Alcohol Use: Occasionally Uses Recreational Drug Use: No Smoking Status: Current Everyday Smoker Type Used: Electronic/Vapor Physical Abuse Screen: No Sexual Abuse: No Recent Foreign Travel: No Contact w/other who traveled: No Recent Hopitalizations: No Recent Infectious Disease Expo: No Seasonal Allergies Seasonal Allergies: No Surgeries Yes (RIGHT HAND FINGER AMPUTATION, HERNIAS X2 INGUINAL, TOE TENDON, AORTIC STENT ) Respiratory No Cardiovascular Yes (HX OF AORTIC STENT, multiple stents to lorin. lower extremities) Deep Vein Thrombosis Neurological No Reproductive System Sexually Transmitted Disease: No HIV/AIDS: No Genitourinary No Gastrointestinal No Musculoskeletal No Endocrine History of Endocrine Disorders: No HEENT History of HEENT Disorders: No Cancer No Psychosocial History of Psychiatric Problem: Yes Behavioral Health Disorders: Sleep Difficulties, Suicide Attempts Integumentary History of Skin or Integumenta: No Blood Transfusions History of Blood Disorders: No Adverse Reaction to a Blood Tr: No Constitutional: malaise EENTM: No see HPI, No no symptoms reported, No ear discharge, No hearing loss, No ear pain, No blurred vision, No double vision, No eye pain, No tearing, No vision loss, No dental problems, No hoarseness, No mouth pain, No mouth swelling , No epistaxis, No nose congestion, No nose pain, No throat pain, No throat swelling, No other Respiratory: No no symptoms reported, No see HPI, No cough, No dyspnea on exertion, No hemoptysis, No orthopnea, No phlegm, No short of breath, No stridor , No wheezing, No other Cardiovascular: No no symptoms reported, No see HPI, No chest pain, No edema, No Hx of Intervention, No palpitations, No syncope, No vascular heart diseas, No other Gastrointestinal: No RUQ, No LUQ, No RLQ, No LLQ, No no symptoms reported, No see HPI, No abdominal pain, No constipation, No diarrhea, No dysphagia, No hematemesis, No heartburn, No jaundice, No loss of appetite, No melena, No nausea, No vomiting, No other Genitourinary: No no symptoms reported, No see HPI, No decreased output, No discharge, No dysuria, No frequency, No hematuria, No hesitancy, No incontinence , No nocturia, No pain, No other Musculoskeletal: muscle weakness Skin: No no symptoms reported, No see HPI, No change in color, No change in hair/nails, No dryness, No hx of skin cancer, No lesions, No lumps, No pruritus , No rash, No other Psychiatric/Neurological: Weakness, Other (obtunded) Physical Exam Vital Signs Vital Sign - Last 12Hours 01/29/17 07:30 Temp 96.7 Pulse 78 Resp 7 B/P (MAP) 145/91 (109) Pulse Ox 98 O2 Delivery Room Air Capillary Refill : Less Than 3 Seconds General Appearance: No Apparent Distress Neck: Supple Respiratory: Lungs Clear Cardiovascular: Regular Rate, Rhythm Gastrointestinal: Normal Bowel Sounds, Non Tender, Soft Rectal: Deferred Back: No CVA Tenderness Extremity: Non Tender, No Calf Tenderness, No Pedal Edema Neurologic/Psychiatric: Alert, Oriented x3 Skin: Other Comments Laboratory Tests 12/14/17 07:39: Glucometer 100 01/29/17 07:49: White Blood Count 9.6, Red Blood Count 4.74, Hemoglobin 14.8, Hematocrit 42, Mean Corpuscular Volume 89, Mean Corpuscular Hemoglobin 31, Mean Corpuscular Hemoglobin Concent 35, Red Cell Distribution Width 12.8, Platelet Count 205, Mean Platelet Volume 10.1, Neutrophils (%) (Auto) 75, Lymphocytes (%) (Auto) 15 , Monocytes (%) (Auto) 6, Eosinophils (%) (Auto) 4, Basophils (%) (Auto) 0, Neutrophils # (Auto) 7.2, Lymphocytes # (Auto) 1.5, Monocytes # (Auto) 0.6, Eosinophils # (Auto) 0.4H, Basophils # (Auto) 0.0, Sodium Level 138, Potassium Level 4.2, Chloride Level 103, Carbon Dioxide Level 24, Anion Gap 11, Blood Urea Nitrogen 13, Creatinine 0.85, Estimat Glomerular Filtration Rate > 60, BUN/ Creatinine Ratio 15, Glucose Level 92, Calcium Level 8.9, Total Bilirubin 0.5, Aspartate Amino Transf (AST/SGOT) 30, Alanine Aminotransferase (ALT/SGPT) 34, Alkaline Phosphatase 73, Total Protein 7.6, Albumin 4.1, TSH [place] Testing 1.31, Salicylates Level < 5.0L, Acetaminophen Level < 10L, Serum Alcohol < 10 Assessment/Plan Assessment and Plan 1. Acute Drug Overdose with Lunesta--admit to ICU and hydrate and monitor vitals and respiratory status and consult psych once medically stable and awake and alert 2. Acute Alcohol Intoxication--hydrate and monitor 3. Marital Discord Problems: Clinical Quality Measures DVT/VTE Risk/Contraindication: Risk Factor Score Per Nursin RFS Level Per Nursing on Admit: 2=Moderate JANNETH SHRESTHA DO Jan 29, 2017 6:31 pm
[2017-01-29 18:47] LABS: BILIRUBIN,URINE NEGATIVE (NEGATIVE); KETONES,URINE NEGATIVE (NEGATIVE); LEUKOCYTE ESTERASE ,URINE NEGATIVE (NEGATIVE); NITRITE,URINE NEGATIVE (NEGATIVE); PH,URINE 7 (5-9); PROTEIN,URINE NEGATIVE (NEGATIVE); UROBILINOGEN,URINE NORMAL (NORMAL)
[2017-01-29 18:58] LABS: SQUAMOUS EPITHELIAL CELL,UR RARE /HPF
--- NOTE | 2017-01-29 19:19 | Consultation ---
History of Present Illness History of Present Illness Patient Consulted On(malu/time) 01/29/17 19:15 Date Seen by Provider: Jan 29, 2017 Time Seen by Provider: 18:32 Reason for Visit: overdose with Lunesta tablets and alcohol intoxication History of Present Illness his reports noticing the patient consuming 20 tablets of Lunesta and bourbon risky leading to loss of his physical balance and sustaining a fall. He has since been evaluated in the emergency room according to ATLS protocol. No significant injury has been found. Allergies and Home Medications Allergies Coded Allergies: Penicillins (Unverified Allergy, Mild, 10/24/08) cefaclor (Unverified Allergy, Mild, 10/24/08) Home Medications Aspirin 81 Mg Tab.chew, 81 MG PO DAILY, (Reported) Clopidogrel Bisulfate 75 Mg Tablet, 75 MG PO DAILY, (Reported) Eszopiclone 3 Mg Tablet, 3 MG PO HS, (Reported) Past Vgjvxiu-Mgczud-Lcpduo Hx Patient Social History Alcohol Use: Occasionally Uses Recreational Drug Use: No Smoking Status: Current Everyday Smoker Type Used: Electronic/Vapor Recent Foreign Travel: No Contact w/Someone Who Travel: No Recent Infectious Disease Expo: No Recent Hopitalizations: No Physical Abuse: No Sexual Abuse: No Seasonal Allergies Seasonal Allergies: No Surgeries History of Surgeries: Yes (RIGHT HAND FINGER AMPUTATION, HERNIAS X2 INGUINAL, TOE TENDON, AORTIC STENT) Respiratory History of Respiratory Disorde: No Cardiovascular History of Cardiac Disorders: Yes (HX OF AORTIC STENT, multiple stents to lorin. lower extremities) Cardiac Disorders: Deep Vein Thrombosis Neurological History of Neurological Disord: No Reproductive System Sexually Transmitted Disease: No HIV/AIDS: No Genitourinary History of Genitourinary Disor: No Gastrointestinal History of Gastrointestinal Di: No Musculoskeletal History of Musculoskeletal Dis: No Endocrine History of Endocrine Disorders: No HEENT History of HEENT Disorders: No Cancer History of Cancer: No Psychosocial History of Psychiatric Problem: Yes Behavioral Health Disorders: Sleep Difficulties, Suicide Attempts Suicide Risk Score: 6 Integumentary History of Skin or Integumenta: No Blood Transfusions History of Blood Disorders: No Adverse Reaction to a Blood Tr: No Review of Systems-General Constitutional: dizziness EENTM: no symptoms reported Respiratory: no symptoms reported Cardiovascular: no symptoms reported Gastrointestinal: no symptoms reported Genitourinary: no symptoms reported Musculoskeletal: back pain Skin: no symptoms reported Psychiatric/Neurological: Anxiety, Emotional Problems Physical Exam-General Problems Physical Exam Vital Signs Vital Sign - Last 12Hours 01/29/17 07:30 Temp 96.7 Pulse 78 Resp 7 B/P (MAP) 145/91 (109) Pulse Ox 98 O2 Delivery Room Air Capillary Refill : Less Than 3 Seconds General Appearance: mild distress HEENT: normal ENT inspection Neck: normal inspection Respiratory: lungs clear Cardiovascular: regular rate, rhythm Gastrointestinal: non tender, soft Rectal: deferred Back: normal inspection Extremities: normal inspection Neurologic/Psychiatric: depressed affect, disoriented x 3 Skin: warm/dry Comments patient with overdose of Lunesta tablets and I'll call intoxication. No acute traumatic injuries identified. Recommend medical management. Assessment/Plan Assessment/Plan Admission Diagnosis/Plan overdose with Lunesta tablets; alcohol intoxication Clinical Quality Measures DVT/VTE Risk/Contraindication: Risk Factor Score Per Nursin RFS Level Per Nursing on Admit: 2=Moderate QUINTEN ZENG MD Jan 29, 2017 7:19 pm
[2017-01-30] VITALS: BP 143/82
[2017-01-30] MEDS: NS IV 1000 ML 1,000 ML IV SCH ×2 (01:30→09:33)
[2017-01-30 06:24] LABS: ALANINE AMINOTRANSFERASE 34 U/L (0-55); ALBUMIN 3.8 GM/DL (3.2-4.5); ANION GAP 9 MMOL/L (5-14); ASPARTATE AMINO TRANSFERASE 27 U/L (5-34); BILIRUBIN,TOTAL 0.7 MG/DL (0.1-1.0); BLOOD UREA NITROGEN 14 MG/DL (7-18); BUN/CREATININE RATIO 16; CARBON DIOXIDE 26 MMOL/L (21-32); CHLORIDE 105 MMOL/L (98-107); CREATININE SERUM 0.89 MG/DL (0.60-1.30); GFR ESTIMATED > 60; GLUCOSE 101 MG/DL (70-105); POTASSIUM 4.1 MMOL/L (3.6-5.0); SODIUM 140 MMOL/L (135-145)
[2017-01-30 08:00] VITALS: BP 126/70
--- NOTE | 2017-01-30 10:54 | Discharge Inst-Simple/Standard ---
Discharge Inst-Standard Patient Instructions/Follow Up Plan of Care/Instructions/FU: Fwup with me in 1 week Activity as Tolerated: Yes Discharge Diet: Cardiac Diet SYLVIA MARIA DO Jan 30, 2017 10:54 am
[2017-01-30 12:00] VITALS: BP 134/76
--- NOTE | 2017-01-30 14:21 | Behavioral Health Consult ---
Consult- Consult Date Seen by Provider: Jan 30, 2017 Time Seen by Provider: 12:25 Patient: Maico Meza : 1960 Date: 01/30/2017 Referral: Dr. Shrestha CPT Code: 53431 Psychodiagnostic Examination [place] 06988 Interactive Complexity, 1 unit(s) Start Time: 1225 Stop Time: 1254 Chief Complaint: Overdose Referral: Maico Meza is a 56 year old male referred by Dr. Shrestha for a clinical diagnostic assessment. Information sources for this evaluation include self-report/observation. Presenting Problem: The presenting clinical problem is Overdose. The primary clinical theme and problem discussed during the appointment was the Mr. Meza had been admitted from the emergency room yesterday following an overdose of Lunesta. He and his shared how he had been drinking to celebrate the graduation of their daughter. They had been under a great deal of financial stress due to cardiac problems and loss of his work his had recently. They got into an argument, which they both state is rare for them. Mr. Meza states that he took some of his Lunesta and is unsure how many he took. He states that he just wanted to go to bed and that is what he did. They currently believe that he took 6 pills. He had sent his a text and told her he that he taken the pills. She could not arouse him and called 911. Mr. Meza currently states that he has not plan to harm himself. He states that he has never acted this way in the past and has no history of mental health problems. His family has visited him today and he realizes the importance of his life and the desire to spend it with them. Mr. Meza states that his employer has a hotline number that the employees can call and talk to a counselor. He states that he plans to utilize this if he needs to in the future. He was also given information for outpatient services at [facility]. Mr. Meza is not currently expressing any symptoms of depression of suicidal ideation. His recent overdose appears to be a stress induced and alcohol induced behavior. He is recommended for discharge home and his verbalized that she is comfortable with him going home. Symptoms observed or reported requiring current level of care include anxiety, familial stress/strain, sleep (onset delay/easily awakened), and worry. Observations/Mental Status: Mr. Meza came was seen in his hospital room with his . Overall appearance was unremarkable clinically. The patient was a good historian. Mr. Quinteros general approach to the evaluation indicated interest. He had reportedly been agitated earlier and wanted to leave the hospital. He currently he states he does not recall acting this way and was cooperative and pleasant. Orientation was intact for person, place, time, and situation. Mr. Meza evidenced good understanding of the reason for the appointment. Mr. Quinteros approach to the session was cooperative. The predominant mood was that of anxious with affect appropriate to expressed concerns and presenting problem. Immediate attention and concentration was unremarkable clinically during the interview. Level of intellectual functioning compared to same age peers was average range. Thought processes were found to be generally logical, coherent and goal directed. Thought content appeared normal. Psychomotor functioning was within normal limits. Tone of voice was normal and controlled and manner of speech was normal. Expressive speech was marked by fluent speech and language. Current destructive behavior patterns: none reported or indicated. Disturbance in sleep patterns: poor sleep onset. Eye contact was fair. Insight was average. Mr. Quinteros style of interacting during the appointment was appropriate and motivated. Current/Previous Mental Health Treatment: Past psychiatric history: None reported. History of self or other harm: recent overdose of Lunesta. History of abuse: denied. 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 Family and Social Histories: Mr. Meza currently lives with his and two children. Mr. Meza and his have been for 15 years. He adopted her children and they are 21 and 17 years old. Summary of Assessment Information/Prognosis: [place] presenting problem and symptoms appear consistent with a preliminary diagnosis of F43.21 Adjustment Disorder with Depressed Mood at this point. Current emotional symptoms are of moderate intensity. Prognosis is good. Diagnostic Impressions: ICD-10: F43.21 Adjustment Disorder with Depressed Mood Initial Treatment Plan/Recommendations: The recommendations at this time include the following: individual outpatient psychotherapy. Mr. Meza is recommended to return home. SHANE BHAKTA Jan 30, 2017 14:21
== END 2017-01-30 10:52 | disposition home or self-care (01) ==
LOC: EDUNIT# 07:27 → ER 07:29 → UNDOADMOB 08:42 → ICU 08:42 → UNDODISOB 01-30 13:00
PROVIDERS: ADMIT Family Medicine; ATTEND Family Medicine
DX: T42.6X2A Poisoning by other antiepileptic and sedative-hypnotic drugs, intentional self-harm, initial encounter (principal); T51.0X2A Toxic effect of ethanol, intentional self-harm, initial encounter; S00.81XA Abrasion of other part of head, initial encounter; S80.211A Abrasion, right knee, initial encounter; F10.129 Alcohol abuse with intoxication, unspecified; F17.210 Nicotine dependence, cigarettes, uncomplicated; W19.XXXA Unspecified fall, initial encounter; Y92.019 Unspecified place in single-family (private) house as the place of occurrence of the external cause; Z63.0 Problems in relationship with spouse or partner; Z95.828 Presence of other vascular implants and grafts; Z79.82 Long term (current) use of aspirin; Z79.899 Other long term (current) drug therapy
CPT/HCPCS: 36415; 70450; 72125; 80053; 80306; 80320; 80329; 81000; 82962; 84443; 85025; 96360; G0378

== ENCOUNTER 2017-04-14 06:34 | Day surgery (SDC) | payer BC ==
[~2017-04-14] VITALS: Ht 193 cm; Wt 79.4 kg
[2017-04-14] VITALS (10 sets, daily range): BP systolic 96–123; BP diastolic 55–75
[~2017-04-14 06:34] MED LIST changes: +ASPI81TA42 PO; +CLOP75TA69 PO; +ESZO3TAB38 PO
[2017-04-14] MEDS ORDERED: NS IV 1000 ML 1,000 ML ONE (06:49)
[2017-04-14] MEDS ORDERED: LIDOCAINE 1% INJ 50 ML (XYLOCAINE) VIAL ONE (06:49)
[2017-04-14] MEDS ORDERED: HEParin (CATH LAB) 2,000 ML IV ONE (06:49)
[2017-04-14] MEDS ORDERED: NS IV 1000 ML 1,000 ML IV SCH (07:00)
[2017-04-14 07:17] LABS: HEMOGLOBIN 13.9 G/DL (13.3-17.7); MEAN PLATELET VOLUME 10.3 FL (7.4-10.4); RED BLOOD COUNT 4.36 10^6/uL (4.35-5.85); RED CELL DISTRIBUTION WIDTH 12.8 % (10.0-14.5); WHITE BLOOD COUNT 6.4 10^3/uL (4.3-11.0)
[2017-04-14] MEDS ORDERED: MELA10TA7 PO (07:19)
[2017-04-14 07:26] LABS: INR 0.9 (0.8-1.4); PROTHROMBIN TIME PATIENT 12.1 SEC (12.2-14.7)
[2017-04-14 07:34] LABS: ALANINE AMINOTRANSFERASE 31 U/L (0-55); ALBUMIN 4.1 GM/DL (3.2-4.5); ALKALINE PHOSPHATASE 67 U/L (40-136); BILIRUBIN,TOTAL 0.5 MG/DL (0.1-1.0); BUN/CREATININE RATIO 19; CALCIUM 9.2 MG/DL (8.5-10.1); CARBON DIOXIDE 25 MMOL/L (21-32); CHLORIDE 108 MMOL/L (98-107); CHOLESTEROL 181 MG/DL (< 200); CREATININE SERUM 0.89 MG/DL (0.60-1.30); GFR ESTIMATED > 60; GLUCOSE 99 MG/DL (70-105); HDL CHOLESTEROL 31 MG/DL (40-60); SODIUM 140 MMOL/L (135-145); TOTAL PROTEIN 7.3 GM/DL (6.4-8.2); TRIGLYCERIDES 224 MG/DL (<150); VLDL CHOLESTEROL 45 MG/DL (5-40)
[2017-04-14] MEDS ORDERED: INFLUENZA TRIvalent 2017-2018 0.5 ML/45 MCG SYR IM ONE (07:45)
[2017-04-14] MEDS ORDERED: fentaNYL INJECTION 100 MCG/2 ML AMP ONE ×2 (08:01→11:29)
[2017-04-14] MEDS ORDERED: MIDAZOLAM 5 MG/5 ML (VERSED) VIAL ONE (08:01)
[2017-04-14] MEDS ORDERED: diphenhydrAMINE 50 MG/ML INJ (BENADRYL) ONE (08:02)
--- NOTE | 2017-04-14 08:17 | Cardiac Procedure Note-CS/ASA ---
Pre-Procedure Note Pre-Op Procedure Note H&P Reviewed The H&P was reviewed, patient examined and no changes noted. Date H&P Reviewed: Apr 14, 2017 Time H&P Reviewed: 08:17 Conscious Sedation Pre-Proced Time Reviewed: 08:17 ASA Class: 3 Airway Mallampati Classification: ([place]-apache appropriate class) I. II. III, IV Lungs Heart ASA score ASA 1: a normal healthy patient ASA 2: a patient with a mild systemic disease (mid diabetes, controlled hypertension, obesity ASA 3: a patient with a severe systemic disease that limits activity (angina , COPD, prior Myocardial infarction) ASA 4: a patient with an incapacitating disease that is a constant threat to life (CHF, renal failure) ASA 5: a moribund patient not expected to survive 24 hrs. (ruptured aneurysm) ASA 6: a declared brain patient whose organs are being harvested. For emergent operations, add the letter E after the classification Grade 2 Sedation Plan: Analgesia, Amnesia, Plan communicated to team members, Discussed options with patient/fam, Discussed risks with patient/fam Note The patient is an appropriate candidate to undergo the planned procedure, sedation, and anesthesia. The patient immediately re-assessed prior to indication. ZEE SOUSA MD FACP FACC CCDS Apr 14, 2017 08:17
[2017-04-14] MEDS ORDERED: HEParin 1000 UNIT/ML (10ML VIAL) FOR BOLUS ONE ×2 (08:44→12:18)
[2017-04-14] MEDS ORDERED: MIDAZOLAM 2 MG/2 ML (VERSED) VIAL ONE (11:30)
[2017-04-14] MEDS ORDERED: NITRO DRIP 25000 MCG/D5W 250 ML IV ONE (12:05)
[2017-04-14] MEDS: NS IV 1000 ML 1,000 ML IV SCH ×2 (12:48→22:49)
[2017-04-14] MEDS ORDERED: CLOPIDOGREL 300 MG (PLAVIX) TABLET PO ONE (12:51)
[2017-04-14] MEDS ORDERED: ASPIRIN 81 MG CHEW (CHILDREN'S ASA) ONE ×2 (12:51→12:52)
[2017-04-14] MEDS ORDERED: PATIENT MAY USE OWN MEDS, ALL PO SCH (13:00)
[2017-04-14] MEDS ORDERED: ACETAMINOPHEN 325 MG TABLET/CAPLET (TYLENOL) PO PRN (13:00)
--- NOTE | 2017-04-14 16:03 | CARDIAC CATHETERIZATION ---
DATE OF SERVICE: 04/14/2017 CARDIAC CATHETERIZATION REPORT The patient is a 56-year-old man who is known to have peripheral arterial disease and who continues to have risk factors, including continuing use of tobacco. He has had stenting of the right superficial femoral artery and has had recurrence of claudication in the right leg, indicating probable stent restenosis on the right side. Peripheral angiography was carried out today after having obtained an informed consent. PROCEDURE: He was brought to the cardiac catheterization laboratory in a fasting state. Right groin was prepared and draped in the usual sterile fashion. Lidocaine 1% for local anesthesia. Modified Seldinger technique was used to advance a 5-[place] sheath in the left femoral artery. A 5-[place] pigtail catheter was used for abdominal aortic angiography with bilateral runoff down to the level of the feet. Subsequently, we carried out percutaneous intervention to the right superficial femoral artery which was found to be occluded within previously placed stents. We used a 5-[place] crossover catheter and advanced a 0.035 inch wire into the proximal portion of the right superficial femoral artery from the left femoral approach (contralateral approach). We removed the 5-[place] sheath. We advanced a 45 cm 6-[place] sheath over the wire and the tip of this sheath was placed into the proximal portion of the right superficial femoral artery. The wire was removed. Selective angiography of the right superficial femoral artery was carried out. We then carried out percutaneous intervention. We used a Irina catheter and 0.018 inch Command wire to cross the long complete occlusion in the standard portion of the right superficial femoral artery. We were able to advance the wire with moderate difficulty. Subsequently, this was a very long procedure in which we carried out multiple balloon inflations, including regular balloon inflations, cutting balloon inflations, and drug-coated balloon inflations throughout the course of the standard portion of the right superficial femoral artery. Despite extensive effort and balloon angioplasty, we were not able to obtain satisfactory results with balloon angioplasty alone. We identified two areas within the standard portion of the right superficial femoral artery which appear to have significant recoil and continuing marked stenosis despite balloon angioplasty, cutting balloon angioplasty, and drug-coated balloon angioplasty. Therefore, we proceeded to stent these two sites with Absolute Pro stents. These are 6 mm x 30 mm distally and 6 mm x 60 mm proximally. Following deployment of these stents, we were able to restore good antegrade flow throughout the course of the right superficial femoral artery with a 3-vessel runoff. At that point, we removed the angioplasty equipment. We exchanged the sheath over a wire for a short 6-[place] sheath. We carried out angiography of the left femoral artery through the sheath. We used Mynx to achieve hemostasis. He tolerated the procedure well. He received a total of 11,000 units of heparin in divided doses during this procedure. CONCLUSIONS: Complete occlusion within previously placed stents in the right superficial femoral artery. These stents are known to be overlapping Supera stents measuring 5.5 x 100, 5.5 x 150, and 5.5 x 40 mm. To these, balloon angioplasty was carried out followed by stenting with Absolute Pro 6.0 x 60 mm proximally and 6.0 x 30 mm distally. This restored normal antegrade flow in the right superficial femoral artery with a 3 vessel runoff. Previously placed 7.0 x 100 mm stent in the left common and external iliac arteries, found to be patent during this study. DISCUSSION AND RECOMMENDATIONS: Dual antiplatelet therapy is being continued. Statins have been added to the regimen. Once again, he has been advised to quit smoking immediately and completely. Job ID: [id number] DocumentID: [id number] Dictated Date: 04/14/2017 13:36:25 Industrial Relations Worker Date: 04/14/2017 16:03:28 Dictated By: ZEE SOUSA MD, MA, FACP, FACC, MTDD
[2017-04-14] MEDS ORDERED: ATORVASTATIN 80 MG (LIPITOR) TABLET PO SCH (21:00)
[2017-04-14] MEDS ORDERED: MELATONIN 3 MG TABLET PO SCH (21:00)
[2017-04-15 03:04] VITALS: BP 101/59
[2017-04-15 06:22] LABS: HEMOGLOBIN 12.9 G/DL (13.3-17.7); RED BLOOD COUNT 4.06 10^6/uL (4.35-5.85); RED CELL DISTRIBUTION WIDTH 12.7 % (10.0-14.5); WHITE BLOOD COUNT 5.9 10^3/uL (4.3-11.0)
[2017-04-15 06:41] LABS: BUN/CREATININE RATIO 15; CALCIUM 8.7 MG/DL (8.5-10.1); CARBON DIOXIDE 22 MMOL/L (21-32); CHLORIDE 107 MMOL/L (98-107); CREATININE SERUM 0.81 MG/DL (0.60-1.30); GFR ESTIMATED > 60; GLUCOSE 112 MG/DL (70-105); SODIUM 139 MMOL/L (135-145)
[2017-04-15 08:00] VITALS: BP 111/53
--- NOTE | 2017-04-15 08:36 | Progress Note-Cardiology ---
Cardiology SOAP Progress Note Subjective: In bed. Spouse at the bedside. C/O some mild left groin discomfort with palpation. Has been up ambulating in the halls without difficulty. States he has no leg pain with ambulation. No c/o CP, dyspnea, syncope or near syncope. Objective: I&O/Vital Signs Vital Sign - Last 12Hours 04/15/17 04/15/17 04/15/17 04/15/17 03:04 07:00 08:00 08:00 Temp 98.0 98.2 Pulse 80 82 82 Resp 18 20 B/P (MAP) 101/59 (73) 111/53 (72) Pulse Ox 96 96 96 O2 Delivery Room Air Room Air Room Air 04/15/17 10:05 Pulse 82 Resp 20 B/P (MAP) 111/53 Pulse Ox 96 O2 Delivery Room Air Intake and Output 04/15/17 00:00 Intake Total 150 ml Output Total 900 ml Balance -750 ml Weight (Pounds): 175 Weight (Ounces): 0.0 Weight (Calculated Kilograms): [id number] Side: left Groin site without hematoma: Yes Condition: DP/PT pulses palpable Bruising: mild bruising Constitutional: AAO x 3 Respiratory: No accessory muscle use, No respiratory distress, chest expansion is symmetric, chest is bilaterally symmetric, lungs clear to auscultation, other (prolonged expiratory phase) Cardiovascular: regular rate-rhythm Gastrointestional: No tender, soft, audible bowel sounds Extremities: no lower extremity edema bilateral Neurologic/Psychiatric: grossly intact Skin: No rash, No ulcerations Results/Procedures: Labs Laboratory Tests 04/15/17 05:28: White Blood Count 5.9, Red Blood Count 4.06L, Hemoglobin 12.9L, Hematocrit 37L, Mean Corpuscular Volume 90, Mean Corpuscular Hemoglobin 32, Mean Corpuscular Hemoglobin Concent 35, Red Cell Distribution Width 12.7, Platelet Count 142, Mean Platelet Volume 11.0H, Sodium Level 139, Potassium Level 4.0, Chloride Level 107, Carbon Dioxide Level 22, Anion Gap 10, Blood Urea Nitrogen 12, Creatinine 0.81, Estimat Glomerular Filtration Rate > 60, BUN/Creatinine Ratio 15, Glucose Level 112H, Calcium Level 8.7 Procedures S/P peripheral angiogram with successful intervention on 04-14-17. Please refer to Dr. Reilly's procedure note for details. A/P: Assessment: PAD - Peripheral angiogram of 04-14-17: Complete occlusion within previously placed stents in the right superficial femoral artery. These stents are known to be overlapping Supera stents measuring 5.5 x 100, 5.5 x 150, and 5.5 x 40 mm. To these, balloon angioplasty was carried out followed by stenting with Absolute Pro 6.0 x 60 mm proximally and 6.0 x 30 mm distally. This restored normal antegrade flow in the right superficial femoral artery with a 3 vessel runoff. Previously placed 7.0 x 100 mm stent in the left common and external iliac arteries, found to be patent during this study Chronic tobacco use ETT of 07/31/15 did not show exercise-induced ischemia Echocardiogram of August 31, 2015 was a technically difficult study which showed global LV systolic function with an ejection fraction of approx 60%. Trivial to mild MR and TR. No evidence of significant valvular stenosis. 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 We have discussed the deleterious effects of continued tobaccoism. He verbalizes understanding We have advise compliance with medication regimen OK to discharge home today F/U as an out pt next week Physician Assessment Physician Assessment No cp or palp or shortness of breath or syncope. Wishes to go home Lungs: clear Cor: reg Ext: no c/c/e. No significant groin hematoma A&R * As documented in our note above that I updated (italics) * We reviewed and discussed his PAD findings and interventions undertaken * Risk factor modification, liliana cessation of smoking, is imperative. We discussed risk factor mod. He understands and states he will comply * We have recommended close outpatient f/u for now OTILIO MARKS Apr 15, 2017 08:36 [facility]ILLY [facility] CCDS Apr 15, 2017 13:21
[2017-04-15] MEDS ORDERED: ATOR80TA76 PO (08:47)
--- NOTE | 2017-04-15 08:50 | Discharge Inst-Cardiology ---
Discharge Inst-Cardiac Discharge Medications New Medications: Atorvastatin Calcium (Atorvastatin Calcium) 80 Mg Tablet 80 MG PO HS, #30 TAB 5 Refills Continued Medications: Aspirin (Children's Aspirin) 81 Mg Tab.chew 81 MG PO DAILY, TAB Clopidogrel Bisulfate (Plavix) 75 Mg Tablet 75 MG PO DAILY, TAB Melatonin (Melatonin) 10 Mg Tab.rapdis 10 MG PO HS PRN for SLEEP, TAB Patient Instructions Patient Instructions: Follow up appointment to see Dr. Reilly in a week Orders-Post D/C & Referrals Pneu Vac Indicated: Yes OTILIO MARKS Apr 15, 2017 08:50
[2017-04-15] MEDS ORDERED: CLOPIDOGREL 75 MG (PLAVIX) TABLET PO SCH (09:00)
[2017-04-15] MEDS ORDERED: ASPIRIN 81 MG CHEW (CHILDREN'S ASA) PO SCH (09:00)
[2017-04-15 10:05] VITALS: BP 111/53
== END 2017-04-15 10:05 | disposition home or self-care (01) ==
LOC: CATH 06:34 → ICU 13:13 → 4TH 22:15 → CATH 04-15 10:05
PROVIDERS: ATTEND Internal Medicine Cardiovascular Disease
DX: I73.9 Peripheral vascular disease, unspecified (principal); F17.210 Nicotine dependence, cigarettes, uncomplicated; Z79.02 Long term (current) use of antithrombotics/antiplatelets; Z89.021 Acquired absence of right finger(s)
CPT/HCPCS: 36415; 37226; 75630; 80048; 80053; 80061; 85027; 85610; 85730; 87081; 93005

== ENCOUNTER → 2017-07-07 | Outpatient (CLI) | payer BC ==
[~2017-07-07] VITALS: Ht 190.5 cm; Wt 72.6 kg
[~2017-07-07] MED LIST changes: -ASPI81TA42 PO; +ASPI81TA64 PO; +ATOR80TA76 PO; +CATHETER FLUSH 10 ML SYR IV PRN; +MELA10TA7 PO
[2017-07-07 08:58] VITALS: BP 110/61
[2017-07-07 09:09] VITALS: BP 148/46
[2017-07-07 09:12] VITALS: BP 137/66
--- NOTE | 2017-07-08 08:55 | STRESS TEST ---
DATE OF SERVICE: 07/07/2017 PROCEDURE: Resting and post exercise technetium-99m Tetrofosmin SPECT CT imaging. ORDERING PHYSICIAN: Dr. Reilly. PRIMARY CARE PHYSICIAN: Dr. Shrestha. CLINICAL DIAGNOSES: Abnormal electrocardiogram, hyperlipidemia, peripheral arterial disease. Baseline images were carried out after injection of 10.74 mCi technetium-99m Tetrofosmin. Subsequently, exercise was carried out on treadmill. Remington protocol was employed. Heart rate and blood pressure responses to exercise were normal. A 32 mCi of technetium-99m Tetrofosmin were injected after the patient had achieved approximately 85% of maximum predicted heart rate. The exercise was continued for another minute after that. The test was stopped on account of fatigue. He attained 85% of maximum predicted heart rate and 9.1 METS of workload. There did not appear to be significant ST segment deviation with exercise, although there is considerable baseline artifact at peak exercise. The baseline electrocardiogram shows incomplete right bundle branch block and this remains unchanged. No significant arrhythmia was seen. Review of images at rest and following stress does not indicate any significant perfusion defect consistent with myocardial ischemia or infarction. Gated images show normal global left ventricular systolic function with normal regional wall motion. Left ventricular ejection fraction is calculated to be 81%. No regional wall motion abnormalities are detected. CONCLUSIONS: 1. No evidence of any significant myocardial ischemia or infarction on this study. 2. Normal regional wall motion. 3. Normal global left ventricular systolic function with a calculated ejection fraction of 81%. Job ID: [id number] DocumentID: [id number] Dictated Date: 07/08/2017 08:10:59 Farrowing Worker Date: 07/08/2017 08:54:28 Dictated By: ZEE REILLY MD, MA, FACP, FACC,
== END ==
LOC: CARD 06-16 06:53
PROVIDERS: ATTEND Internal Medicine Cardiovascular Disease
DX: I70.212 Atherosclerosis of native arteries of extremities with intermittent claudication, left leg (principal); E78.5 Hyperlipidemia, unspecified; R94.31 Abnormal electrocardiogram [ECG] [EKG]
CPT/HCPCS: 78452; 93017

== ENCOUNTER 2017-12-15 08:21 | Day surgery (SDC) | payer BC, OTHER ==
[~2017-12-15] VITALS: Ht 190.5 cm; Wt 79.4 kg
[2017-12-15] VITALS (19 sets, daily range): BP systolic 120–162; BP diastolic 60–93
[~2017-12-15 08:21] MED LIST changes: -CATHETER FLUSH 10 ML SYR IV PRN; -ESZO3TAB38 PO; +ESZO3TAB39 PO
[2017-12-15] MEDS ORDERED: NS IV 1000 ML 1,000 ML ONE (08:32)
[2017-12-15] MEDS ORDERED: LIDOCAINE 1% INJ 20 ML 20 ML VIAL ONE (08:32)
[2017-12-15] MEDS ORDERED: HEParin (CATH LAB) 2,000 ML IV ONE (08:32)
[2017-12-15 09:00] LABS: HEMOGLOBIN 14.5 G/DL (13.3-17.7); MEAN PLATELET VOLUME 10.2 FL (7.4-10.4); RED BLOOD COUNT 4.65 10^6/uL (4.35-5.85); RED CELL DISTRIBUTION WIDTH 13.3 % (10.0-14.5); WHITE BLOOD COUNT 5.9 10^3/uL (4.3-11.0)
[2017-12-15 09:18] LABS: ALANINE AMINOTRANSFERASE 37 U/L (0-55); ALBUMIN 4.4 GM/DL (3.2-4.5); ALKALINE PHOSPHATASE 68 U/L (40-136); BILIRUBIN,TOTAL 0.5 MG/DL (0.1-1.0); BUN/CREATININE RATIO 10; CALCIUM 9.5 MG/DL (8.5-10.1); CARBON DIOXIDE 22 MMOL/L (21-32); CHLORIDE 107 MMOL/L (98-107); CHOLESTEROL 211 MG/DL (< 200); CREATININE SERUM 1.05 MG/DL (0.60-1.30); GFR ESTIMATED > 60; GLUCOSE 109 MG/DL (70-105); HDL CHOLESTEROL 38 MG/DL (40-60); POTASSIUM 4.4 MMOL/L (3.6-5.0); SODIUM 139 MMOL/L (135-145); TRIGLYCERIDES 228 MG/DL (<150); VLDL CHOLESTEROL 46 MG/DL (5-40)
[2017-12-15 09:21] LABS: INR 0.9 (0.8-1.4); PROTHROMBIN TIME PATIENT 12.2 SEC (12.2-14.7)
[2017-12-15] MEDS ORDERED: NS IV 1000 ML 1,000 ML IV SCH ×2 (09:30→14:18)
[2017-12-15] MEDS ORDERED: FLU QUADRIvalent (5+ YOA) 2018-2019 (AFLURIA) 0.5 ML IM ONE (09:30)
[2017-12-15] MEDS ORDERED: HEParin 1000 UNIT/ML (10ML VIAL) FOR BOLUS ONE (10:46)
[2017-12-15] MEDS ORDERED: fentaNYL INJECTION 100 MCG/2 ML AMP ONE ×3 (10:46→17:37)
[2017-12-15] MEDS ORDERED: MIDAZOLAM 5 MG/5 ML (VERSED) VIAL ONE ×2 (10:46→13:18)
--- NOTE | 2017-12-15 11:25 | Cardiac Procedure Note-CS/ASA ---
Pre-Procedure Note Pre-Op Procedure Note H&P Reviewed The H&P was reviewed, patient examined and no changes noted. Date H&P Reviewed: Dec 15, 2017 Time H&P Reviewed: 11:25 Conscious Sedation Pre-Proced Time 11:25 ASA Score 3 For ASA 3 and 4: Consider anesthesia and medical clearance. Also, for patients with a history of failed moderate sedation consider anesthesia. Airway Lungs Heart ASA score ASA 1: a normal healthy patient ASA 2: a patient with a mild systemic disease (mid diabetes, controlled hypertension, obesity ASA 3: a patient with a severe systemic disease that limits activity (angina , COPD, prior Myocardial infarction) ASA 4: a patient with an incapacitating disease that is a constant threat to life (CHF, renal failure) ASA 5: a moribund patient not expected to survive 24 hrs. (ruptured aneurysm) ASA 6: a declared brain patient whose organs are being harvested. For emergent operations, add the letter E after the classification Mallampati Classification Grade 2 Sedation Plan Analgesia, Amnesia, Plan communicated to team members, Discussed options with patient/fam, Discussed risks with patient/fam The patient is an appropriate candidate to undergo the planned procedure, sedation, and anesthesia. The patient immediately re-assessed prior to indication. ZEE SOUSA MD FACP FAC CCDS Dec 15, 2017 11:25
[2017-12-15] MEDS ORDERED: NITRO DRIP 25000 MCG/D5W 250 ML IV ONE (12:26)
[2017-12-15] MEDS ORDERED: NS (IVPB) 250 ML ONE (13:11)
[2017-12-15] MEDS ORDERED: niCARdipine 25 MG/10 ML (CARDENE) AMP IV ONE (13:11)
[2017-12-15] MEDS ORDERED: PATIENT MAY USE OWN MEDS, ALL PO SCH (14:30)
[2017-12-15] MEDS ORDERED: NON-FORMULARY MEDICATION 1 EA EA (Melatonin 10 MG) PO PRN (14:30)
[2017-12-15] MEDS ORDERED: ACETAMINOPHEN 325 MG TABLET PO PRN (14:30)
[2017-12-15] MEDS ORDERED: MELATONIN 3 MG TABLET PO PRN (15:00)
--- NOTE | 2017-12-15 15:37 | OPERATIVE REPORT ---
DATE OF SERVICE: 12/15/2017 PERIPHERAL ANGIOGRAPHY REPORT The patient is a 57-year-old man with peripheral arterial disease. He has had extensive percutaneous interventions on both legs. He has had recurrent leg claudication, more so on the right side. Peripheral angiography was carried out after having obtained informed consent for peripheral angiography and possible peripheral intervention, if needed. DESCRIPTION OF PROCEDURE: He was brought to the cardiac catheterization laboratory in a fasting state. The left groin was prepared and draped in the usual sterile fashion. Lidocaine 1% for local anesthesia. Modified Seldinger technique was used to advance a 5-Sudanese sheath in right femoral artery. We used a 5-Sudanese pigtail catheter to carry out abdominal aortic angiography with runoff down to the level of the ankles. Subsequently, percutaneous intervention was carried out to the right lower limb arterial circulation. PERCUTANEOUS INTERVENTION: To the arterial circulation of the right lower limb. We used a crossover catheter to advance a 0.035 inch Storq wire into the right common iliac and then into the right superficial femoral artery. The right superficial femoral artery was completely occluded, but we were able to negotiate the complete occlusion with the Storq wire and we were able to advance it through the entire stented length of the right superficial femoral artery and the wire was advanced into the right popliteal artery and the tip was placed in the distal branch. We then exchanged the 5-Sudanese sheath while maintaining the wire in position. We advanced a long 6-Sudanese sheath and the tip of the sheath was placed in the right common femoral artery to provide support for angioplasty equipment. We kept the wire in place. We carried out balloon angioplasty through the entire length of the occluded segment of the right superficial femoral artery. This is a very long segment all contained within a previously stented long segment. We carried out balloon angioplasty with Lutonix 5 x 150 mm, Lutonix 5 x 150 mm, and Lutonix 5 x 100 mm balloons, beginning distal and proceeding proximally. This was accomplished without significant difficulty. All stenting was kept within the stented segment, but approximately, the balloon angioplasty also extended beyond the proximal edge of the stented segment. Subsequent angiography revealed that there was dissection proximal to the proximal edge of the stented segment of the right superficial femoral artery and, therefore, we stented this segment with Absolute Pro 6.0 x 8 mm stent, which somewhat overlaps the previous stented segment. Subsequent angiography showed that the dissection had been well intact and there was no significant residual stenosis in proximal segment of the right superficial femoral artery, but there was still a very sluggish flow in the main body of the right superficial femoral artery. Therefore, keeping the same wire in position, we used [place] 35 6.0 x 200 mm balloon and carried out balloon angioplasty of the entire stented segment of the right superficial femoral artery. Following removal of this balloon, there is still sluggish flow in the right superficial femoral artery. It appears that the vessel is extensively diseased and may require treatment either with laser for debulking or consideration of femoral popliteal bypass surgery. At this moment, the distal circulation is protected by collaterals from the right deep femoral artery. The procedure was carried out without any significant complications and the patient tolerated it well. He received a total of 9000 units of intravenous heparin during the procedure. ABDOMINAL AORTIC ANGIOGRAPHY WITH RUNOFF: Abdominal aortic angiography with runoff indicated a infrarenal abdominal aortic aneurysm, which is small to moderate in size. The aortoiliac junction is intact. Both iliac arteries, both external iliac arteries, both internal iliac arteries and both common femoral and deep femoral arteries are intact. On the right side, there was an extensive segment of occlusion of the superficial femoral artery, which extends almost from the ostium of the artery down almost to the area of the adductor canal. To this, extensive balloon angioplasty was carried out. The very proximal right superficial femoral artery was also stented because of some dissection following balloon angioplasty within the area that had not previously been stented. The details are provided above. Despite extensive percutaneous intervention, the flow in the right superficial femoral artery remains sluggish. The distal artery reconstitutes via collaterals, mostly from the deep femoral artery. On the left side, the superficial femoral artery is intact. On both sides, the popliteal arteries are intact and on both sides, there is a 3-vessel runoff. The runoff on the left side, however, is quite sluggish compared to the right side. CONCLUSIONS: Peripheral arterial disease primarily consisting of an extensive segment of occlusion of the right superficial femoral artery, mostly within a previously stented segment. To this extensive balloon angioplasty was carried out and the very proximal segment of the right superficial femoral artery was stented with Absolute Pro 6.0 x 100 mm stent. There is no significant stenosis in the proximal segment of the right superficial femoral artery, following today's stenting, but the mid portion of the right superficial femoral artery remains with very sluggish flow and the distal artery reconstitutes via collaterals. Job ID: [id number] DocumentID: [id number] Dictated Date: 12/15/2017 13:57:32 Regulatory Analyst Date: 12/15/2017 15:36:15 Dictated By: ZEE SOUSA MD, MA, FACP, FACC, MTDD
[2017-12-15] MEDS: oxyCODONE/APAP 5/325MG (PERCOCET 5) TABLET PO PRN (17:01)
[2017-12-15] MEDS ORDERED: ATROPINE INJECTION 1 MG/10 ML SYR (ABBOTT) ONE (17:37)
[2017-12-15] MEDS ORDERED: fentaNYL INJECTION 100 MCG/2 ML AMP IVP ONE (17:45)
[2017-12-15] MEDS: RIVAROXABAN 2.5 MG TABLET (XARELTO) PO SCH (21:22)
[2017-12-16] VITALS: BP 145/75
[2017-12-16 01:00] VITALS: BP 146/114
[2017-12-16] MEDS: oxyCODONE/APAP 5/325MG (PERCOCET 5) TABLET PO PRN ×2 (01:17→09:04)
[2017-12-16 02:00] VITALS: BP 131/62
[2017-12-16 03:00] VITALS: BP 122/58
--- NOTE | 2017-12-16 08:07 | Progress Note-Cardiology ---
Cardiology SOAP Progress Note Subjective: Sitting up in bed. Wants to go home today. Refused lab draw this morning. No c/o CP, palpitations, syncope, dyspnea or near syncope. Previous reported symptoms of claudication have resolved.. C/O left groin discomfort. Objective: I&O/Vital Signs 12/15/17 12/15/17 12/15/17 12/16/17 21:00 22:00 23:00 00:00 Pulse 88 82 93 92 Resp 16 25 23 17 B/P (MAP) 129/66 (87) 120/72 (88) 143/66 (91) 145/75 (98) O2 Delivery Room Air Room Air Room Air Room Air 12/16/17 12/16/17 12/16/17 12/16/17 01:00 01:00 02:00 03:00 Pulse 91 91 92 87 Resp 17 17 12 B/P (MAP) 146/114 (125) 131/62 (85) 122/58 (79) O2 Delivery Room Air Room Air Room Air 12/16/17 04:00 Pulse 82 Resp 8 B/P (MAP) O2 Delivery Room Air 12/16/17 00:00 Intake Total 200 ml Output Total 400 ml Balance -200 ml Weight (Pounds): 175 Weight (Ounces): 0.0 Weight (Calculated Kilograms): [id number] Side: left Groin site without hematoma: Yes Condition: DP/PT pulses palpable, extremity w/d/p Bruising: mild bruising Constitutional: AAO x 3, well-developed, well-nourished Respiratory: No accessory muscle use, No respiratory distress; chest expansion is symmetric, chest is bilaterally symmetric, other (prolonged expiratory phase) Cardiovascular: regular rate-rhythm; No JVD; S1 and S2 Gastrointestional: No tender; soft, audible bowel sounds Extremities: no lower extremity edema bilateral Neurologic/Psychiatric: grossly intact Skin: No rash, No ulcerations Results/Procedures: Labs Laboratory Tests 12/15/17 08:51: White Blood Count 5.9, Red Blood Count 4.65, Hemoglobin 14.5, Hematocrit 41, Mean Corpuscular Volume 87, Mean Corpuscular Hemoglobin 31, Mean Corpuscular Hemoglobin Concent 36, Red Cell Distribution Width 13.3, Platelet Count 219, Mean Platelet Volume 10.2, Prothrombin Time 12.2, INR Comment 0.9, Activated Partial Thromboplast Time 32, Sodium Level 139, Potassium Level 4.4, Chloride Level 107, Carbon Dioxide Level 22, Anion Gap 10, Blood Urea Nitrogen 11, Creatinine 1.05, Estimat Glomerular Filtration Rate > 60, BUN/Creatinine Ratio 10, Glucose Level 109H, Calcium Level 9.5, Corrected Calcium 9.2, Total Bilirubin 0.5, Aspartate Amino Transf (AST/SGOT) 33, Alanine Aminotransferase ( ALT/SGPT) 37, Alkaline Phosphatase 68, Total Protein 8.0, Albumin 4.4, Triglycerides Level 228H, Cholesterol Level 211H, LDL Cholesterol Direct 142H, VLDL Cholesterol 46H, HDL Cholesterol 38L 12/15/17 15:32: Activated Partial Thromboplast Time 99H 12/15/17 17:08: Activated Partial Thromboplast Time 49H Procedures Peripheral angiogram with intervention. Please refer to Dr. Reilly's procedure note of 12-15-17 A/P: Assessment: PAD - Peripheral angiogram of 04-14-17: Complete occlusion within previously placed stents in the right superficial femoral artery. These stents are known to be overlapping Supera stents measuring 5.5 x 100, 5.5 x 150, and 5.5 x 40 mm. To these, balloon angioplasty was carried out followed by stenting with Absolute Pro 6.0 x 60 mm proximally and 6.0 x 30 mm distally. This restored normal antegrade flow in the right superficial femoral artery with a 3 vessel runoff. Previously placed 7.0 x 100 mm stent in the left common and external iliac arteries, found to be patent. Peripheral angiogram of December 15, 2017 showed: arterial disease primarily consisting of an extensive segment of occlusion of the right superficial femoral artery, mostly within a previously stented segment. To this extensive balloon angioplasty was carried out and the very proximal segment of the right superficial femoral artery was stented with Absolute Pro 6.0 x 100 mm stent. There is no significant stenosis in the proximal segment of the right superficial femoral artery, following today's stenting, but the mid portion of the right superficial femoral artery remains with very sluggish flow and the distal artery reconstitutes via collaterals. Exercise MPI of July 07, 2017 showed no evidence of any significant myocardial ischemia or infarction. Normal regional wall motion. LVEF 81% Palpitations of new onset. His phone chrissie recorded a heart beat of 160 bpm (at rest) on 04/15/17 (15 min episode) Chronic tobacco use, refraining since 04/15/17 Echocardiogram of August 31, 2015 was a technically difficult study which showed global LV systolic function with an ejection fraction of approx 60%. Trivial to mild MR and TR. No evidence of significant valvular stenosis. 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 Reilly when he may return to work F/U appt in 1-2 weeks OTILIO MARKS Dec 16, 2017 08:07
[2017-12-16] MEDS: RIVAROXABAN 2.5 MG TABLET (XARELTO) PO SCH (08:23)
[2017-12-16] MEDS ORDERED: CLOPIDOGREL 75 MG (PLAVIX) TABLET PO SCH (09:00)
[2017-12-16] MEDS ORDERED: RIVA10TA PO (09:30)
== END 2017-12-16 10:06 | disposition left against medical advice (07) ==
LOC: CATH 08:21 → ICU 14:03 → CATH 12-16 10:06
PROVIDERS: ATTEND Internal Medicine Cardiovascular Disease
DX: I70.201 Unspecified atherosclerosis of native arteries of extremities, right leg (principal); Z11.2 Encounter for screening for other bacterial diseases; E78.5 Hyperlipidemia, unspecified; Z89.021 Acquired absence of right finger(s); Z79.82 Long term (current) use of aspirin; Z79.01 Long term (current) use of anticoagulants; Z95.5 Presence of coronary angioplasty implant and graft; Z72.0 Tobacco use; R00.2 Palpitations; G62.9 Polyneuropathy, unspecified
CPT/HCPCS: 36415; 37226; 75716; 80053; 80061; 85027; 85610; 85730; 87081; 93005

== ENCOUNTER → 2018-01-15 | Outpatient (CLI) | payer BC ==
[~2018-01-15] MED LIST changes: +CATHETER FLUSH 10 ML SYR IV PRN; +GABA-486; +IOHEXOL 350 MG/ML 150 ML (OMNIPAQUE 350) VIAL IV ONE; +NS 250 ML (IVPB) BAG IV ONE; +OXYC-471; +RECEIVED CONTRAST (Hold Metformin) IV SCH; +RIVA10TA PO; +TRAM50TA2
[2018-01-15 13:02] LABS: BUN/CREATININE RATIO 19; GFR ESTIMATED > 60
--- NOTE | 2018-01-15 15:07 | Diagnostic Imaging Report ---
INDICATION: Patient is status post recent femoral popliteal graft. Patient now complains of right leg pain. TECHNIQUE: Axial imaging through the abdomen and pelvis and bilateral lower extremities was performed after the administration of intravenous contrast and utilizing CT angiography protocol. Multiplanar, 3D MIP reformations were also performed. FINDINGS: The lung bases are clear. The liver demonstrates generalized low density consistent with hepatic steatosis. No discrete liver mass is seen. Gallbladder is unremarkable. No biliary duct dilatation is identified. The pancreas and spleen are unremarkable. No adrenal mass is seen. Kidneys are unremarkable. There is focal ectasia of the distal abdominal aorta. There is a short segment dissection involving the most proximal aspect of the right common iliac artery. Right common iliac and external iliac artery are patent. Left common iliac does contain a stent which appears to be patent. Left external iliac is patent. Bilateral common femoral arteries are patent. There is a right femoral popliteal graft. The graft appears to be widely patent. Popliteal artery is patent. There is three-vessel flow below the knee. The peroneal is seen to just above the ankle. There is two-vessel flow to the ankle via the posterior tibial dorsalis pedis. On the left, the superficial femoral artery and popliteal artery are patent. Trifurcation vessels are patent below the knee. Peroneal is seen to approximately the level of the mid calf. Posterior tibial is identified to the ankle. The anterior tibial and dorsalis pedis appear to be very small. IMPRESSION: Right femoral popliteal graft appears to be widely patent. No focal stenosis or occlusion is seen. Dictated by: Dictated on workstation # [id number]
== END ==
LOC: RAD 12:30
PROVIDERS: ATTEND Internal Medicine Cardiovascular Disease
DX: I70.212 Atherosclerosis of native arteries of extremities with intermittent claudication, left leg (principal); M79.604 Pain in right leg; Z72.0 Tobacco use; Z95.828 Presence of other vascular implants and grafts
CPT/HCPCS: 36415; 75635; 82565; 84520

== ENCOUNTER 2018-01-19 14:02 | Emergency (ER) | payer BC ==
[~2018-01-19] VITALS: Ht 193 cm; Wt 72.6 kg
[~2018-01-19 14:02] MED LIST changes: -CATHETER FLUSH 10 ML SYR IV PRN; -GABA-486; -IOHEXOL 350 MG/ML 150 ML (OMNIPAQUE 350) VIAL IV ONE; -NS 250 ML (IVPB) BAG IV ONE; -OXYC-471; -RECEIVED CONTRAST (Hold Metformin) IV SCH; -TRAM50TA2
--- OUTSIDE RECORDS SUMMARY | 2018-01-19 14:08 | XMS REPORT | Continuity of Care Document ---
Author Author [facility] Organization [facility] Address Unknown Phone Unavailable Allergies Active Description Code Type Severity Reaction Onset Reported/Identified Relationship to Patient Clinical Status Yes cefaclor [id number] Drug Allergy Mild N/A 10/24/2008 Yes Penicillins [id number] Drug Allergy Mild N/A 10/24/2008 Medications There is no data. Problems Date Dx Coded Attending Type Code Diagnosis Diagnosed By 05/31/2015 JACKIE GONZALEZ MEDICATION COORDINATOR Ot R13.10 05/31/2015 JACKIE GONZALEZ APRN Ot R13.10 06/01/2015 AZUCENA AMATO, QUINTEN Narayanan Ot Z01.818 ENCOUNTER FOR OTHER PREPROCEDURAL EXAMIN 06/01/2015 JACKIE GONZALEZ MEDICATION COORDINATOR Ot R13.10 DYSPHAGIA, UNSPECIFIED 06/04/2015 JACKIE GONZALEZ MEDICATION COORDINATOR Ot R13.10 DYSPHAGIA, UNSPECIFIED 06/04/2015 JACKIE GONZALEZ MEDICATION COORDINATOR Ot R13.10 DYSPHAGIA, UNSPECIFIED 06/05/2015 QUINTEN ZENG MD Ot Z12.11 ENCOUNTER FOR SCREENING FOR MALIGNANT NE 06/06/2015 QUINTEN ZENG MD Ot Z12.11 ENCOUNTER FOR SCREENING FOR MALIGNANT NE 06/06/2015 QUINTEN ZENG MD Ot Z12.11 ENCOUNTER FOR SCREENING FOR MALIGNANT NE 06/07/2015 QUINTEN ZENG MD Ot Z01.818 ENCOUNTER FOR OTHER PREPROCEDURAL EXAMIN 06/10/2015 QUINTEN ZENG MD Ot Z12.11 ENCOUNTER FOR SCREENING FOR MALIGNANT NE 06/11/2015 JACKIE GONZALEZ APRN Ot R13.10 DYSPHAGIA, UNSPECIFIED 06/11/2015 QUINTEN ZENG MD Ot Z12.11 ENCOUNTER FOR SCREENING FOR MALIGNANT NE 06/14/2015 JACKIE GONZALEZ APRN Ot R13.10 DYSPHAGIA, UNSPECIFIED 06/20/2015 QUINTEN ZENG MD Ot Z12.11 ENCOUNTER FOR SCREENING FOR MALIGNANT NE 07/02/2015 CORINNE GONZALEZFrancesco Ramires APRN Ot M54.6 PAIN IN THORACIC SPINE 07/02/2015 CARLOS JACKIEMURIEL Ramires APRN Ot R07.81 PLEURODYNIA 07/03/2015 CORINNE GONZALEZFrancesco Ramires APRN Ot M54.6 PAIN IN THORACIC SPINE 07/03/2015 CARLOS JACKIEMURIEL Ramires APRN Ot R07.81 PLEURODYNIA 07/17/2015 CARLOS JACKIEMURIEL Ramires APRN Ot M54.6 PAIN IN THORACIC SPINE 07/17/2015 EDER GONZALEZMURIEL Ramires APRN Ot R07.81 PLEURODYNIA 08/01/2015 Ot F17.210 NICOTINE DEPENDENCE, CIGARETTES, UNCOMPL 08/23/2015 Ot F17.210 NICOTINE DEPENDENCE, CIGARETTES, UNCOMPL 09/13/2015 LARS AMATO FACC, ALI FACP CCDS Ot I70.212 ATHSCL COCOPAH ARTERIES OF EXTRM W INTRMT 09/13/2015 LARS AMATO FACC, ALI FACP CCDS Ot R94.31 ABNORMAL ELECTROCARDIOGRAM [ECG] [EKG] 09/13/2015 LARS AMATO FACC, ALI FACP CCDS Ot Z72.0 TOBACCO USE 11/01/2015 CARLOS JACKIEMURIEL Ramires APRN Ot M54.6 PAIN IN THORACIC SPINE 11/01/2015 CARLOS JACKIEMURIEL Ramires APRN Ot R07.81 PLEURODYNIA 11/01/2015 Ot F17.210 NICOTINE DEPENDENCE, CIGARETTES, UNCOMPL 11/01/2015 LARS AMATO FACC, ALI FACP CCDS Ot I70.212 ATHSCL COCOPAH ARTERIES OF EXTRM W INTRMT 11/01/2015 LARS AMATO FACC, ALI FACP CCDS Ot R94.31 ABNORMAL ELECTROCARDIOGRAM [ECG] [EKG] 11/01/2015 LARS AMATO FACC, ALI FACP CCDS Ot Z72.0 TOBACCO USE 05/09/2016 JACKIE GONZALEZ APRN Ot M54.6 PAIN IN THORACIC SPINE 05/09/2016 CARLOS JACKIEMURIEL Ramires APRN Ot R07.81 PLEURODYNIA 05/09/2016 Ot F17.210 NICOTINE DEPENDENCE, CIGARETTES, UNCOMPL 05/09/2016 LARS WATSONC, ALI FACP CCDS Ot I70.212 ATHSCL COCOPAH ARTERIES OF EXTRM W INTRMT 05/09/2016 LARS WATSONC, ALI FACP CCDS Ot R94.31 ABNORMAL ELECTROCARDIOGRAM [ECG] [EKG] 05/09/2016 LARS AMATO FACC, ALI FACP CCDS Ot Z72.0 TOBACCO USE 05/12/2016 JACKIE GONZALEZ Ike ABDIN Ot M54.6 PAIN IN THORACIC SPINE 05/12/2016 JACKIE GONZALEZ Ike MEDICATION COORDINATOR Ot R07.81 PLEURODYNIA 05/12/2016 Ot F17.210 NICOTINE DEPENDENCE, CIGARETTES, UNCOMPL 05/12/2016 LARS WATSONC, ALI FACP CCDS Ot I70.212 ATHSCL COCOPAH ARTERIES OF EXTRM W INTRMT 05/12/2016 LARS WATSONC, ALI FACP CCDS Ot R94.31 ABNORMAL ELECTROCARDIOGRAM [ECG] [EKG] 05/12/2016 LARS AMATO FACC, ALI FACP CCDS Ot Z72.0 TOBACCO USE 05/15/2016 EDER GONZALEZMURIEL Ramires APRN Ot M54.6 PAIN IN THORACIC SPINE 05/15/2016 CARLOS JACKIEMURIEL Ramires APRN Ot R07.81 PLEURODYNIA 05/15/2016 Ot F17.210 NICOTINE DEPENDENCE, CIGARETTES, UNCOMPL 05/15/2016 LARS AMATO FACC, ALI FACP CCDS Ot I70.212 ATHSCL COCOPAH ARTERIES OF EXTRM W INTRMT 05/15/2016 LARS AMATO FACC, ALI FACP CCDS Ot R94.31 ABNORMAL ELECTROCARDIOGRAM [ECG] [EKG] 05/15/2016 LARS AMATO FACC, ALI FACP CCDS Ot Z72.0 TOBACCO USE 05/16/2016 LARS WATSONC, ALI FACP CCDS Ot I70.212 ATHSCL COCOPAH ARTERIES OF EXTRM W INTRMT 05/16/2016 LARS WATSONC, ALI FACP CCDS Ot R94.31 ABNORMAL ELECTROCARDIOGRAM [ECG] [EKG] 05/16/2016 LARS WATSONC, ALI FACP CCDS Ot Z72.0 TOBACCO USE 06/02/2016 LARS WATSONC, ALI FACP CCDS Ot I70.212 ATHSCL COCOPAH ARTERIES OF EXTRM W INTRMT 06/02/2016 LARS WATSONC, ALI FACP CCDS Ot R94.31 ABNORMAL ELECTROCARDIOGRAM [ECG] [EKG] 06/02/2016 LARS MD FACC, ALI FACP CCDS Ot Z72.0 TOBACCO USE 06/18/2016 LARS WATSONC, ALI FACP CCDS Ot I70.212 ATHSCL COCOPAH ARTERIES OF EXTRM W INTRMT 06/18/2016 LARS WATSONC, ALI FACP CCDS Ot R94.31 ABNORMAL ELECTROCARDIOGRAM [ECG] [EKG] 06/18/2016 LARS AMATO FACC, ALI FACP CCDS Ot Z72.0 TOBACCO USE 07/16/2016 JACKIE GONZALEZ MEDICATION COORDINATOR Ot M54.6 PAIN IN THORACIC SPINE 07/16/2016 CARLOSJACKIE Ike MEDICATION COORDINATOR Ot R07.81 PLEURODYNIA 07/16/2016 Ot F17.210 NICOTINE DEPENDENCE, CIGARETTES, UNCOMPL 07/16/2016 LARS WATSONC, ALI FACP CCDS Ot I70.212 ATHSCL COCOPAH ARTERIES OF EXTRM W INTRMT 07/16/2016 LARS AMATO FACC, ALI FACP CCDS Ot R94.31 ABNORMAL ELECTROCARDIOGRAM [ECG] [EKG] 07/16/2016 LARS AMATO FACC, ALI FACP CCDS Ot Z72.0 TOBACCO USE 07/16/2016 LARS AMATO FACC, ALI FACP CCDS Ot I70.212 ATHSCL COCOPAH ARTERIES OF EXTRM W INTRMT 07/16/2016 LARS AMATO FACC, ALI FACP CCDS Ot R94.31 ABNORMAL ELECTROCARDIOGRAM [ECG] [EKG] 07/16/2016 LARS AMATO FACC, ALI FACP CCDS Ot Z72.0 TOBACCO USE 07/16/2016 LARS AMATO FACC, ALI FACP CCDS Ot I70.212 ATHSCL COCOPAH ARTERIES OF EXTRM W INTRMT 07/16/2016 LARS WATSONC, ALI FACP CCDS Ot R94.31 ABNORMAL ELECTROCARDIOGRAM [ECG] [EKG] 07/16/2016 LARS AMATO FACC, ALI FACP CCDS Ot Z72.0 TOBACCO USE 07/17/2016 JACKIE GONZALEZ MEDICATION COORDINATOR Ot M54.6 PAIN IN THORACIC SPINE 07/17/2016 CARLOS JACKIE N MEDICATION COORDINATOR Ot R07.81 PLEURODYNIA 07/17/2016 Ot F17.210 NICOTINE DEPENDENCE, CIGARETTES, UNCOMPL 07/17/2016 LARS WATSONC, ALI FACP CCDS Ot I70.212 ATHSCL COCOPAH ARTERIES OF EXTRM W INTRMT 07/17/2016 LARS AMATO FACC, ALI FACP CCDS Ot R94.31 ABNORMAL ELECTROCARDIOGRAM [ECG] [EKG] 07/17/2016 LARS AMATO FACC, ALI FACP CCDS Ot Z72.0 TOBACCO USE 07/17/2016 LARS WATSONC, ALI FACP CCDS Ot I70.212 ATHSCL COCOPAH ARTERIES OF EXTRM W INTRMT 07/17/2016 LARS WATSONC, ALI FACP CCDS Ot R94.31 ABNORMAL ELECTROCARDIOGRAM [ECG] [EKG] 07/17/2016 LARS AMATO FACC, ALI FACP CCDS Ot Z72.0 TOBACCO USE 07/17/2016 LARS AMATO FACC, ALI FACP CCDS Ot I70.212 ATHSCL COCOPAH ARTERIES OF EXTRM W INTRMT 07/17/2016 LARS AMATO FACC, ALI FACP CCDS Ot R94.31 ABNORMAL ELECTROCARDIOGRAM [ECG] [EKG] 07/17/2016 LARS AMATO FACC, ALI FACP CCDS Ot Z72.0 TOBACCO USE 07/21/2016 JACKIE GONZALEZ MEDICATION COORDINATOR Ot M54.6 PAIN IN THORACIC SPINE 07/21/2016 JACKIE GONZALEZ APRN Ot R07.81 PLEURODYNIA 07/21/2016 Ot F17.210 NICOTINE DEPENDENCE, CIGARETTES, UNCOMPL 07/21/2016 LARS AMATO FACC, ALI FACP CCDS Ot I70.212 ATHSCL COCOPAH ARTERIES OF EXTRM W INTRMT 07/21/2016 LARS AMATO FACC, ALI FACP CCDS Ot R94.31 ABNORMAL ELECTROCARDIOGRAM [ECG] [EKG] 07/21/2016 LARS AMATO FACC, ALI FACP CCDS Ot Z72.0 TOBACCO USE 07/21/2016 LARS AMATO FACC, ALI FACP CCDS Ot I70.212 ATHSCL COCOPAH ARTERIES OF EXTRM W INTRMT 07/21/2016 LARS AMATO FACC, ALI FACP CCDS Ot R94.31 ABNORMAL ELECTROCARDIOGRAM [ECG] [EKG] 07/21/2016 LARS AMATO FACC, ALI FACP CCDS Ot Z72.0 TOBACCO USE 07/21/2016 LARS WATSONC, ALI FACP CCDS Ot I70.212 ATHSCL COCOPAH ARTERIES OF EXTRM W INTRMT 07/21/2016 LARS MD FACC, ALI FACP CCDS Ot R94.31 ABNORMAL ELECTROCARDIOGRAM [ECG] [EKG] 07/21/2016 LARS AMATO FACC, ALI FACP CCDS Ot Z72.0 TOBACCO USE 07/22/2016 JACKIE GONZALEZ MEDICATION COORDINATOR Ot M54.6 PAIN IN THORACIC SPINE 07/22/2016 JACKIE GONZALEZ MEDICATION COORDINATOR Ot R07.81 PLEURODYNIA 07/22/2016 Ot F17.210 NICOTINE DEPENDENCE, CIGARETTES, UNCOMPL 07/22/2016 LARS WATSONC, ALI FACP CCDS Ot I70.212 ATHSCL COCOPAH ARTERIES OF EXTRM W INTRMT 07/22/2016 LARS WATSONC, ALI FACP CCDS Ot R94.31 ABNORMAL ELECTROCARDIOGRAM [ECG] [EKG] 07/22/2016 LARS AMATO FACC, ALI FACP CCDS Ot Z72.0 TOBACCO USE 07/22/2016 LARS WATSONC, ALI FACP CCDS Ot I70.212 ATHSCL COCOPAH ARTERIES OF EXTRM W INTRMT 07/22/2016 LARS AMATO FACC, ALI FACP CCDS Ot R94.31 ABNORMAL ELECTROCARDIOGRAM [ECG] [EKG] 07/22/2016 LARS AMATO FACC, ALI FACP CCDS Ot Z72.0 TOBACCO USE 07/22/2016 LARS AMATO FACC, ALI FACP CCDS Ot I70.212 ATHSCL COCOPAH ARTERIES OF EXTRM W INTRMT 07/22/2016 LARS AMATO FACC, ALI FACP CCDS Ot R94.31 ABNORMAL ELECTROCARDIOGRAM [ECG] [EKG] 07/22/2016 LARS AMATO FACC, ALI FACP CCDS Ot Z72.0 TOBACCO USE 07/23/2016 LARS AMATO FACC, ALI FACP CCDS Ot I70.213 ATHSCL COCOPAH ARTERIES OF EXTRM W INTRMT 07/23/2016 LARS AMATO FACC, ALI FACP CCDS Ot I70.92 CHRONIC TOTAL OCCLUSION OF ARTERY OF THE 07/23/2016 LARS AMATO FACC, ALI FACP CCDS Ot R94.31 ABNORMAL ELECTROCARDIOGRAM [ECG] [EKG] 07/23/2016 LARS AMATO FACC, ALI FACP CCDS Ot Z72.0 TOBACCO USE 07/23/2016 LARS AMATO FACC, ALI FACP CCDS Ot Z95.820 PERIPHERAL VASCULAR ANGIOPLASTY STATUS W 07/25/2016 LARS WATSONC, ALI FACP CCDS Ot I70.213 ATHSCL COCOPAH ARTERIES OF EXTRM W INTRCO 07/25/2016 LARS AMATO FACC, ALI FACP CCDS Ot I70.92 CHRONIC TOTAL OCCLUSION OF ARTERY OF THE 07/25/2016 LARS AMATO FACC, ALI FACP CCDS Ot R94.31 ABNORMAL ELECTROCARDIOGRAM [ECG] [EKG] 07/25/2016 LARS AMATO FACC, ALI FACP CCDS Ot Z72.0 TOBACCO USE 07/25/2016 LARS WATSONC, ALI FACP CCDS Ot Z95.820 PERIPHERAL VASCULAR ANGIOPLASTY STATUS W 08/06/2016 LARS AMATO FACC, ALI FACP CCDS Ot I45.10 UNSPECIFIED RIGHT BUNDLE-BRANCH BLOCK 08/06/2016 LARS AMATO FACC, ALI FACP CCDS Ot I70.213 ATHSCL COCOPAH ARTERIES OF EXTRM W [facility] 08/06/2016 LARS AMATO FACC, ALI FACP CCDS Ot I70.92 CHRONIC TOTAL OCCLUSION OF ARTERY OF THE 08/06/2016 LARS AMATO FACC, ALI FACP CCDS Ot Z72.0 TOBACCO USE 08/06/2016 LARS AMATO FACC, ALI FACP CCDS Ot Z79.899 OTHER CARE HOME (CURRENT) DRUG THERAPY 08/06/2016 LARS AMATO FACC, ALI FACP CCDS Ot Z95.820 PERIPHERAL VASCULAR ANGIOPLASTY STATUS W 08/08/2016 LARS AMATO FACC, ALI FACP CCDS Ot I45.10 UNSPECIFIED RIGHT BUNDLE-BRANCH BLOCK 08/08/2016 LARS AMATO FACC, ALI FACP CCDS Ot I70.213 ATHSCL COCOPAH ARTERIES OF EXTRM W 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 08/08/2016 LARS WATSONC, ALI FACP CCDS Ot Z95.820 PERIPHERAL VASCULAR ANGIOPLASTY STATUS W 08/11/2016 LARS WATSONC, ALI FACP CCDS Ot I45.10 UNSPECIFIED RIGHT BUNDLE-BRANCH BLOCK 08/11/2016 LARS AMATO FACC, ALI FACP CCDS Ot I70.213 ATHSCL COCOPAH ARTERIES OF EXTRM W INTRMT 08/11/2016 LARS AMATO FACC, ZEE FACP CCDS Ot I70.92 CHRONIC TOTAL OCCLUSION OF ARTERY OF THE 08/11/2016 LARS AMATO FACC, ALI FACP CCDS Ot Z72.0 TOBACCO USE 08/11/2016 LARS AMATO FACC, ALI FACP CCDS Ot Z79.899 OTHER CARE HOME (CURRENT) DRUG THERAPY 08/11/2016 LARS AMATO FACC, ALI FACP CCDS Ot Z95.820 PERIPHERAL VASCULAR ANGIOPLASTY STATUS W 01/30/2017 CANDACE CHILD SYLVIA S Ot F10.129 ALCOHOL ABUSE WITH INTOXICATION, UNSPECI 01/30/2017 CANDACE CHILD SYLVIA S Ot F17.210 NICOTINE DEPENDENCE, CIGARETTES, UNCOMPL 01/30/2017 CANDACE CHILD SYLVIA S Ot S00.81XA ABRASION OF OTHER PART OF HEAD, INITIAL 01/30/2017 CANDACE CHILD SYLVIA S Ot S80.211A ABRASION, RIGHT KNEE, INITIAL ENCOUNTER 01/30/2017 CANDACE CHILD SYLVIA S Ot T42.6X2A POISN BY OTH ANTIEPLPTC AND SED-HYPNTC D 01/30/2017 CANDACE CHILD SYLVIA S Ot T51.0X2A TOXIC EFFECT OF ETHANOL, INTENTIONAL JEAN-CLAUDE 01/30/2017 CANDACE CHILD SYLVIA S Ot W19.XXXA UNSPECIFIED FALL, INITIAL ENCOUNTER 01/30/2017 CANDACE CHILD SYLVIA S Ot Y92.[address] IN SINGLE-FAMILY (PRIVATE) HO 01/30/2017 CANDACE CHILD SYLVIA S Ot Z63.0 PROBLEMS IN RELATIONSHIP WITH SPOUSE OR 01/30/2017 ANGELIQUE MARIA DOLINE S Ot Z79.82 CARE HOME (CURRENT) USE OF ASPIRIN 01/30/2017 ANGELIQUE MARIA DOLINE S Ot 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 01/30/2017 ANGELIQUE MARIA DOLINE S Ot Z95.828 PRESENCE OF OTHER VASCULAR IMPLANTS AND 01/31/2017 JACKIE GONZALEZ APRN Ot M54.6 PAIN IN THORACIC SPINE 01/31/2017 JACKIE GONZALEZ Ike BEAULIEU Ot R07.81 PLEURODYNIA 01/31/2017 Ot F17.210 NICOTINE DEPENDENCE, CIGARETTES, UNCOMPL 01/31/2017 LARS AMATO FACC, ALI FACP CCDS Ot I70.212 ATHSCL COCOPAH ARTERIES OF EXTRM W INTRMT 01/31/2017 LARS AMATO FACC, ALI FACP CCDS Ot R94.31 ABNORMAL ELECTROCARDIOGRAM [ECG] [EKG] 01/31/2017 LARS AMATO FACC, ALI FACP CCDS Ot Z72.0 TOBACCO USE 01/31/2017 LARS AMATO FACC, ALI FACP CCDS Ot I70.212 ATHSCL COCOPAH ARTERIES OF EXTRM W INTRMT 01/31/2017 LARS AMATO FACC, ALI FACP CCDS Ot R94.31 ABNORMAL ELECTROCARDIOGRAM [ECG] [EKG] 01/31/2017 LARS AMATO FACC, ALI FACP CCDS Ot Z72.0 TOBACCO USE 01/31/2017 LARS AMATO FACC, ALI FACP CCDS Ot I70.212 ATHSCL COCOPAH ARTERIES OF EXTRM W INTRMT 01/31/2017 LARS WATSONC, ALI FACP CCDS Ot R94.31 ABNORMAL ELECTROCARDIOGRAM [ECG] [EKG] 01/31/2017 LARS WATSONC, ALI FACP CCDS Ot Z72.0 TOBACCO USE 01/31/2017 JACKIE GONZALEZ Ike BEAULIEU Ot M54.6 PAIN IN THORACIC SPINE 01/31/2017 JACKIE GONZALEZ Ike BEAULIEU Ot R07.81 PLEURODYNIA 01/31/2017 Ot F17.210 NICOTINE DEPENDENCE, CIGARETTES, UNCOMPL 01/31/2017 LARS AMATO FACC, ALI FACP CCDS Ot I70.212 ATHSCL COCOPAH ARTERIES OF EXTRM W INTRMT 01/31/2017 LARS AMATO FACC, ALI FACP CCDS Ot R94.31 ABNORMAL ELECTROCARDIOGRAM [ECG] [EKG] 01/31/2017 LARS WATSONC, ALI FACP CCDS Ot Z72.0 TOBACCO USE 01/31/2017 LARS AMATO FACC, ALI FACP CCDS Ot I70.212 ATHSCL COCOPAH ARTERIES OF EXTRM W INTRMT 01/31/2017 LARS AMATO FACC, ALI FACP CCDS Ot R94.31 ABNORMAL ELECTROCARDIOGRAM [ECG] [EKG] 01/31/2017 LARS WATSONC, ALI FACP CCDS Ot Z72.0 TOBACCO USE 01/31/2017 LARS AMATO FACC, ALI FACP CCDS Ot I70.212 ATHSCL COCOPAH ARTERIES OF EXTRM W INTRMT 01/31/2017 LARS AMATO FACC, ALI FACP CCDS Ot R94.31 ABNORMAL ELECTROCARDIOGRAM [ECG] [EKG] 01/31/2017 LARS AMATO FACC, ALI FACP CCDS Ot Z72.0 TOBACCO USE 04/15/2017 LARS AMATO FACC, ALI FACP CCDS Ot F17.210 NICOTINE DEPENDENCE, CIGARETTES, UNCOMPL 04/15/2017 LARS AMATO FACC, ALI FACP CCDS Ot I73.9 PERIPHERAL VASCULAR DISEASE, UNSPECIFIED 04/15/2017 LARS WATSONC, ALI FACP CCDS Ot Z79.02 CARE HOME (CURRENT) USE OF ANTITHROMBOTI 04/15/2017 LARS WATSONC, ALI FACP CCDS Ot 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) 04/16/2017 LARS AMATO FACC, ALI FACP CCDS Ot F17.210 NICOTINE DEPENDENCE, CIGARETTES, UNCOMPL 04/16/2017 LARS AMATO FACC, ALI FACP CCDS Ot I73.9 PERIPHERAL VASCULAR DISEASE, UNSPECIFIED 04/16/2017 LARS AMATO FACC, ALI FACP CCDS Ot Z79.02 CARE HOME (CURRENT) USE OF ANTITHROMBOTI 04/16/2017 LARS AMATO FACC, ALI FACP CCDS Ot 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) 06/17/2017 LARS AMATO FACC, ALI FACP CCDS Ot E78.5 HYPERLIPIDEMIA, UNSPECIFIED 06/17/2017 LARS AMATO FACC, ALI FACP CCDS Ot I70.212 ATHSCL COCOPAH ARTERIES OF EXTRM W INTRMT 06/17/2017 LARS WATSONC, ALI FACP CCDS Ot R94.31 ABNORMAL ELECTROCARDIOGRAM [ECG] [EKG] 06/22/2017 LARS AMATO FACC, ALI FACP CCDS Ot E78.5 HYPERLIPIDEMIA, UNSPECIFIED 06/22/2017 LARS AMATO FACC, ALI FACP CCDS Ot I70.212 ATHSCL COCOPAH ARTERIES OF EXTRM W INTRMT 06/22/2017 LARS MD FACC, ALI FACP CCDS Ot R94.31 ABNORMAL ELECTROCARDIOGRAM [ECG] [EKG] 07/06/2017 LARS WATSONC, ALI FACP CCDS Ot E78.5 HYPERLIPIDEMIA, UNSPECIFIED 07/06/2017 LARS AMATO FACC, ALI FACP CCDS Ot I70.212 ATHSCL COCOPAH ARTERIES OF EXTRM W INTRMT 07/06/2017 LARS AMATO FACC, ALI FACP CCDS Ot R94.31 ABNORMAL ELECTROCARDIOGRAM [ECG] [EKG] 07/07/2017 LARS WATSONC, ALI FACP CCDS Ot E78.5 HYPERLIPIDEMIA, UNSPECIFIED 07/07/2017 LARS AMATO FACC, ALI FACP CCDS Ot I70.212 ATHSCL COCOPAH ARTERIES OF EXTRM W INTRMT 07/07/2017 LARS WATSONC, ALI FACP CCDS Ot R94.31 ABNORMAL ELECTROCARDIOGRAM [ECG] [EKG] 07/07/2017 LARS WATSONC, ALI FACP CCDS Ot E78.5 HYPERLIPIDEMIA, UNSPECIFIED 07/07/2017 LARS WATSONC, ALI FACP CCDS Ot I70.212 ATHSCL COCOPAH ARTERIES OF EXTRM W INTRMT 07/07/2017 LARS WATSONC, ALI FACP CCDS Ot R94.31 ABNORMAL ELECTROCARDIOGRAM [ECG] [EKG] 07/23/2017 LARS AMATO FACC, ALI FACP CCDS Ot E78.5 HYPERLIPIDEMIA, UNSPECIFIED 07/23/2017 LARS WATSONC, ALI FACP CCDS Ot I70.212 ATHSCL COCOPAH ARTERIES OF EXTRM W INTRMT 07/23/2017 LARS WATSONC, ALI FACP CCDS Ot R94.31 ABNORMAL ELECTROCARDIOGRAM [ECG] [EKG] 11/23/2017 LARS WATSONC, ALI FACP CCDS Ot E78.5 HYPERLIPIDEMIA, UNSPECIFIED 11/23/2017 LARS WATSONC, ALI FACP CCDS Ot I70.212 ATHSCL COCOPAH ARTERIES OF EXTRM W INTRMT 11/23/2017 LARS WATSONC, ALI FACP CCDS Ot R94.31 ABNORMAL ELECTROCARDIOGRAM [ECG] [EKG] 12/16/2017 LARS WATSONC, ALI FACP CCDS Ot E78.5 HYPERLIPIDEMIA, UNSPECIFIED 12/16/2017 LARS WATSONC, ALI FACP CCDS Ot G62.9 POLYNEUROPATHY, UNSPECIFIED 12/16/2017 LARS AMATO FACC, ALI FACP CCDS Ot I70.201 [facility]SP [facility]CL [facility] 12/16/2017 LARS AMATO FACC, ALI FACP CCDS Ot R00.2 PALPITATIONS 12/16/2017 LARS AMATO FACC, ALI FACP CCDS Ot Z11.2 ENCOUNTER FOR SCREENING FOR OTHER BACTER 12/16/2017 LARS AMATO FACC, ALI FACP CCDS Ot Z72.0 TOBACCO USE 12/16/2017 LARS AMATO FACC, ALI FACP CCDS Ot Z79.01 LIQUID YEAST SUPERVISOR (CURRENT) USE OF ANTICOAGULANT 12/16/2017 LARS AMATO FACC, ALI FACP CCDS Ot Z79.82 CARE HOME (CURRENT) USE OF ASPIRIN 12/16/2017 LARS AMATO FACC, ALI FACP CCDS Ot 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) 12/16/2017 LARS AMATO FACC, ALI FACP CCDS Ot Z95.5 PRESENCE OF CORONARY ANGIOPLASTY IMPLANT 12/17/2017 LARS WATSONC, ALI FACP CCDS Ot E78.5 HYPERLIPIDEMIA, UNSPECIFIED 12/17/2017 LARS AMATO FACC, ALI FACP CCDS Ot G62.9 POLYNEUROPATHY, UNSPECIFIED 12/17/2017 LARS WATSONC, ALI FACP CCDS Ot I70.201 UNSP ATHSCL [facility] 12/17/2017 LARS AMATO FACC, ALI FACP CCDS Ot R00.2 PALPITATIONS 12/17/2017 LARS AMATO FACC, ALI FACP CCDS Ot Z11.2 ENCOUNTER FOR SCREENING FOR OTHER BACTER 12/17/2017 LARS AMATO FACC, ALI FACP CCDS Ot Z72.0 TOBACCO USE 12/17/2017 LARS AMATO FACC, ALI FACP CCDS Ot Z79.01 LIQUID 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 SUPERVISOR (CURRENT) USE OF ANTICOAGULANT 12/17/2017 LARS AMATO FACC, ALI FACP CCDS Ot Z79.82 LIQUID YEAST SUPERVISOR (CURRENT) USE OF ASPIRIN 12/17/2017 LARS AMATO FACC, ALI FACP CCDS Ot 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) 12/17/2017 LARS AMATO FACC, ALI FACP CCDS Ot Z95.5 PRESENCE OF CORONARY ANGIOPLASTY IMPLANT 12/21/2017 LARS AMATO FACC, ALI FACP CCDS Ot E78.5 HYPERLIPIDEMIA, UNSPECIFIED 12/21/2017 LARS AMATO FACC, ALI FACP CCDS Ot G62.9 POLYNEUROPATHY, UNSPECIFIED 12/21/2017 LARS AMATO FACC, ALI FACP CCDS Ot 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 12/21/2017 LARS AMATO FACC, ALI FACP CCDS Ot R00.2 PALPITATIONS 12/21/2017 LARS AMATO FACC, ALI FACP CCDS Ot Z11.2 ENCOUNTER FOR SCREENING FOR OTHER BACTER 12/21/2017 LARS AMATO FACC, ALI FACP CCDS Ot Z72.0 TOBACCO USE 12/21/2017 LARS AMATO FACC, ALI FACP CCDS Ot 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 Results Test Result Range Complete blood count (CBC) with automated white blood cell (WBC) differential - 05/15/16 10:57 Blood leukocytes automated count (number/volume) 7.1 10*3/uL 4.3-11.0 Blood erythrocytes automated count (number/volume) 4.81 10*6/uL 4.35-5.85 Venous blood hemoglobin measurement (mass/volume) 15.6 g/dL 13.3-17.7 Blood hematocrit (volume fraction) 43 % 40-54 Automated erythrocyte mean corpuscular volume 90 [foz_us] 80-99 Automated erythrocyte mean corpuscular hemoglobin (mass per erythrocyte) 32 pg 25-34 Automated erythrocyte mean corpuscular hemoglobin concentration measurement ( mass/volume) 36 g/dL 32-36 Automated erythrocyte distribution width ratio 12.9 % 10.0-14.5 Automated blood platelet count (count/volume) 172 10*3/uL 130-400 Automated blood platelet mean volume measurement 10.5 [foz_us] 7.4-10.4 Automated blood neutrophils/100 leukocytes 59 % 42-75 Automated blood lymphocytes/100 leukocytes 31 % 12-44 Blood monocytes/100 leukocytes 6 % 0-12 Automated blood eosinophils/100 leukocytes 3 % 0-10 Automated blood basophils/100 leukocytes 0 % 0-10 Blood neutrophils automated count (number/volume) 4.2 10*3 1.8-7.8 Blood lymphocytes automated count (number/volume) 2.2 10*3 1.0-4.0 Blood monocytes automated count (number/volume) 0.4 10*3 0.0-1.0 Automated eosinophil count 0.2 10*3/uL 0.0-0.3 Automated blood basophil count (count/volume) 0.0 10*3/uL 0.0-0.1 Comprehensive metabolic panel - 05/15/16 10:57 Serum or plasma sodium measurement (moles/volume) 140 mmol/L 135-145 Serum or plasma potassium measurement (moles/volume) 4.0 mmol/L 3.6-5.0 Serum or plasma chloride measurement (moles/volume) 107 mmol/L 98-107 Carbon dioxide 27 mmol/L 21-32 Serum or plasma anion gap determination (moles/volume) 6 mmol/L 5-14 Serum or plasma urea nitrogen measurement (mass/volume) 10 mg/dL 7-18 Serum or plasma creatinine measurement (mass/volume) 0.97 mg/dL 0.60-1.30 Serum or plasma urea nitrogen/creatinine mass ratio 10 NRG Serum or plasma creatinine measurement with calculation of estimated glomerular filtration rate > NRG Serum or plasma glucose measurement (mass/volume) 147 mg/dL 70-105 Serum or plasma calcium measurement (mass/volume) 9.3 mg/dL 8.5-10.1 Serum or plasma total bilirubin measurement (mass/volume) 0.4 mg/dL 0.1-1.0 Serum or plasma alkaline phosphatase measurement (enzymatic activity/volume) 78 U/L 40-136 Serum or plasma aspartate aminotransferase measurement (enzymatic activity/ volume) 23 U/L 5-34 Serum or plasma alanine aminotransferase measurement (enzymatic activity/volume ) 24 U/L 0-55 Serum or plasma protein measurement (mass/volume) 7.5 g/dL 6.4-8.2 Serum or plasma albumin measurement (mass/volume) 4.1 g/dL 3.2-4.5 Magnesium - 05/15/16 10:57 Magnesium 2.2 mg/dL 1.8-2.4 Lipid 1996 panel - 05/15/16 10:57 Serum or plasma triglyceride measurement (mass/volume) 196 mg/dL <150 Serum or plasma cholesterol measurement (mass/volume) 194 mg/dL < 200 Serum or plasma cholesterol in HDL measurement (mass/volume) 32 mg/ dL 40-60 Cholesterol in LDL [mass/volume] in serum or plasma by direct assay 136 mg/dL 1-129 Serum or plasma cholesterol in VLDL measurement (mass/volume) 39 mg/ dL 5-40 THYROID STIMULATING HORMONE - 05/15/16 10:57 THYROID STIMULATING HORMONE 0.64 u[iU]/mL 0.35-4.94 Automated blood complete blood count (hemogram) panel - 07/22/16 07:45 Blood leukocytes automated count (number/volume) 7.1 10*3/uL 4.3-11.0 Blood erythrocytes automated count (number/volume) 4.70 10*6/uL 4.35-5.85 Venous blood hemoglobin measurement (mass/volume) 14.9 g/dL 13.3-17.7 Blood hematocrit (volume fraction) 43 % 40-54 Automated erythrocyte mean corpuscular volume 91 [foz_us] 80-99 Automated erythrocyte mean corpuscular hemoglobin (mass per erythrocyte) 32 pg 25-34 Automated erythrocyte mean corpuscular hemoglobin concentration measurement ( mass/volume) 35 g/dL 32-36 Automated erythrocyte distribution width ratio 12.9 % 10.0-14.5 Automated blood platelet count (count/volume) 183 10*3/uL 130-400 Automated blood platelet mean volume measurement 10.3 [foz_us] 7.4-10.4 PT panel in platelet poor plasma by coagulation assay - 07/22/16 07:45 Prothrombin time (PT) in platelet poor plasma by coagulation assay 12.2 s 12.2-14.7 INR in platelet poor plasma or blood by coagulation assay 0.9 0.8-1.4 Activated partial thromboplastin time (aPTT) in platelet poor plasma bycoagulation assay - 07/22/16 07:45 Activated partial thromboplastin time (aPTT) in platelet poor plasma bycoagulation assay 37 s 24-35 Comprehensive metabolic panel - 07/22/16 07:45 Serum or plasma sodium measurement (moles/volume) 141 mmol/L 135-145 Serum or plasma potassium measurement (moles/volume) 3.3 mmol/L 3.6-5.0 Serum or plasma chloride measurement (moles/volume) 104 mmol/L 98-107 Carbon dioxide 26 mmol/L 21-32 Serum or plasma anion gap determination (moles/volume) 11 mmol/L 5-14 Serum or plasma urea nitrogen measurement (mass/volume) 12 mg/dL 7-18 Serum or plasma creatinine measurement (mass/volume) 0.95 mg/dL 0.60-1.30 Serum or plasma urea nitrogen/creatinine mass ratio 13 NRG Serum or plasma creatinine measurement with calculation of estimated glomerular filtration rate > NRG Serum or plasma glucose measurement (mass/volume) 90 mg/dL 70-105 Serum or plasma calcium measurement (mass/volume) 9.2 mg/dL 8.5-10.1 Serum or plasma total bilirubin measurement (mass/volume) 0.7 mg/dL 0.1-1.0 Serum or plasma alkaline phosphatase measurement (enzymatic activity/volume) 70 U/L 40-136 Serum or plasma aspartate aminotransferase measurement (enzymatic activity/ volume) 23 U/L 5-34 Serum or plasma alanine aminotransferase measurement (enzymatic activity/volume ) 23 U/L 0-55 Serum or plasma protein measurement (mass/volume) 7.8 g/dL 6.4-8.2 Serum or plasma albumin measurement (mass/volume) 4.2 g/dL 3.2-4.5 Lipid 1996 panel - 07/22/16 07:45 Serum or plasma triglyceride measurement (mass/volume) 224 mg/dL <150 Serum or plasma cholesterol measurement (mass/volume) 160 mg/dL < 200 Serum or plasma cholesterol in HDL measurement (mass/volume) 33 mg/ dL 40-60 Cholesterol in LDL [mass/volume] in serum or plasma by direct assay 94 mg/dL 1-129 Serum or plasma cholesterol in VLDL measurement (mass/volume) 45 mg/ dL 5-40 Methicillin resistant Staphylococcus aureus (MRSA) screening culture - 07:45 Methicillin resistant Staphylococcus aureus (MRSA) screening culture NEG NRG Activated partial thromboplastin time (aPTT) in platelet poor plasma bycoagulation assay - 07/22/16 13:02 Activated partial thromboplastin time (aPTT) in platelet poor plasma bycoagulation assay 50 s 24-35 Automated blood complete blood count (hemogram) panel - 07/23/16 03:39 Blood leukocytes automated count (number/volume) 8.6 10*3/uL 4.3-11.0 Blood erythrocytes automated count (number/volume) 4.46 10*6/uL 4.35-5.85 Venous blood hemoglobin measurement (mass/volume) 14.0 g/dL 13.3-17.7 Blood hematocrit (volume fraction) 40 % 40-54 Automated erythrocyte mean corpuscular volume 90 [foz_us] 80-99 Automated erythrocyte mean corpuscular hemoglobin (mass per erythrocyte) 31 pg 25-34 Automated erythrocyte mean corpuscular hemoglobin concentration measurement ( mass/volume) 35 g/dL 32-36 Automated erythrocyte distribution width ratio 12.7 % 10.0-14.5 Automated blood platelet count (count/volume) 163 10*3/uL 130-400 Automated blood platelet mean volume measurement 10.7 [foz_us] 7.4-10.4 Whole blood basic metabolic panel - 07/23/16 03:39 Serum or plasma sodium measurement (moles/volume) 138 mmol/L 135-145 Serum or plasma potassium measurement (moles/volume) 3.9 mmol/L 3.6-5.0 Serum or plasma chloride measurement (moles/volume) 107 mmol/L 98-107 Carbon dioxide 21 mmol/L 21-32 Serum or plasma anion gap determination (moles/volume) 10 mmol/L 5-14 Serum or plasma urea nitrogen measurement (mass/volume) 10 mg/dL 7-18 Serum or plasma creatinine measurement (mass/volume) 0.80 mg/dL 0.60-1.30 Serum or plasma urea nitrogen/creatinine mass ratio 13 NRG Serum or plasma creatinine measurement with calculation of estimated glomerular filtration rate > NRG Serum or plasma glucose measurement (mass/volume) 108 mg/dL 70-105 Serum or plasma calcium measurement (mass/volume) 8.7 mg/dL 8.5-10.1 Automated blood complete blood count (hemogram) panel - 08/05/16 07:40 Blood leukocytes automated count (number/volume) 6.0 10*3/uL 4.3-11.0 Blood erythrocytes automated count (number/volume) 4.26 10*6/uL 4.35-5.85 Venous blood hemoglobin measurement (mass/volume) 13.5 g/dL 13.3-17.7 Blood hematocrit (volume fraction) 39 % 40-54 Automated erythrocyte mean corpuscular volume 92 [foz_us] 80-99 Automated erythrocyte mean corpuscular hemoglobin (mass per erythrocyte) 32 pg 25-34 Automated erythrocyte mean corpuscular hemoglobin concentration measurement ( mass/volume) 35 g/dL 32-36 Automated erythrocyte distribution width ratio 12.7 % 10.0-14.5 Automated blood platelet count (count/volume) 243 10*3/uL 130-400 Automated blood platelet mean volume measurement 9.9 [foz_us] 7.4-10.4 Comprehensive metabolic panel - 08/05/16 07:40 Serum or plasma sodium measurement (moles/volume) 142 mmol/L 135-145 Serum or plasma potassium measurement (moles/volume) 3.8 mmol/L 3.6-5.0 Serum or plasma chloride measurement (moles/volume) 105 mmol/L 98-107 Carbon dioxide 28 mmol/L 21-32 Serum or plasma anion gap determination (moles/volume) 9 mmol/L 5-14 Serum or plasma urea nitrogen measurement (mass/volume) 11 mg/dL 7-18 Serum or plasma creatinine measurement (mass/volume) 0.94 mg/dL 0.60-1.30 Serum or plasma urea nitrogen/creatinine mass ratio 12 0 -20 Serum or plasma creatinine measurement with calculation of estimated glomerular filtration rate > NRG Serum or plasma glucose measurement (mass/volume) 91 mg/dL 70-105 Serum or plasma calcium measurement (mass/volume) 9.3 mg/dL 8.5-10.1 Serum or plasma total bilirubin measurement (mass/volume) 0.5 mg/dL 0.1-1.0 Serum or plasma alkaline phosphatase measurement (enzymatic activity/volume) 76 U/L 40-136 Serum or plasma aspartate aminotransferase measurement (enzymatic activity/ volume) 21 U/L 5-34 Serum or plasma alanine aminotransferase measurement (enzymatic activity/volume ) 19 U/L 0-55 Serum or plasma protein measurement (mass/volume) 7.5 g/dL 6.4-8.2 Serum or plasma albumin measurement (mass/volume) 4.0 g/dL 3.2-4.5 Lipid 1996 panel - 08/05/16 07:40 Serum or plasma triglyceride measurement (mass/volume) 157 mg/dL <150 Serum or plasma cholesterol measurement (mass/volume) 152 mg/dL < 200 Serum or plasma cholesterol in HDL measurement (mass/volume) 30 mg/ dL 40-60 Cholesterol in LDL [mass/volume] in serum or plasma by direct assay 99 mg/dL 1-129 Serum or plasma cholesterol in VLDL measurement (mass/volume) 31 mg/ dL 5-40 PT panel in platelet poor plasma by coagulation assay - 08/05/16 07:40 Prothrombin time (PT) in platelet poor plasma by coagulation assay 12.4 s 12.2-14.7 INR in platelet poor plasma or blood by coagulation assay 1.0 0.8-1.4 Activated partial thromboplastin time (aPTT) in platelet poor plasma bycoagulation assay - 08/05/16 07:40 Activated partial thromboplastin time (aPTT) in platelet poor plasma bycoagulation assay 37 s 24-35 Methicillin resistant Staphylococcus aureus (MRSA) screening culture - 07:41 Methicillin resistant Staphylococcus aureus (MRSA) screening culture NEG NRG Automated blood complete blood count (hemogram) panel - 08/06/16 03:35 Blood leukocytes automated count (number/volume) 5.6 10*3/uL 4.3-11.0 Blood erythrocytes automated count (number/volume) 3.84 10*6/uL 4.35-5.85 Venous blood hemoglobin measurement (mass/volume) 12.0 g/dL 13.3-17.7 Blood hematocrit (volume fraction) 35 % 40-54 Automated erythrocyte mean corpuscular volume 92 [foz_us] 80-99 Automated erythrocyte mean corpuscular hemoglobin (mass per erythrocyte) 31 pg 25-34 Automated erythrocyte mean corpuscular hemoglobin concentration measurement ( mass/volume) 34 g/dL 32-36 Automated erythrocyte distribution width ratio 12.8 % 10.0-14.5 Automated blood platelet count (count/volume) 197 10*3/uL 130-400 Automated blood platelet mean volume measurement 10.7 [foz_us] 7.4-10.4 Whole blood basic metabolic panel - 08/06/16 03:35 Serum or plasma sodium measurement (moles/volume) 140 mmol/L 135-145 Serum or plasma potassium measurement (moles/volume) 4.0 mmol/L 3.6-5.0 Serum or plasma chloride measurement (moles/volume) 108 mmol/L 98-107 Carbon dioxide 22 mmol/L 21-32 Serum or plasma anion gap determination (moles/volume) 10 mmol/L 5-14 Serum or plasma urea nitrogen measurement (mass/volume) 8 mg/dL 7-18 Serum or plasma creatinine measurement (mass/volume) 0.78 mg/dL 0.60-1.30 Serum or plasma urea nitrogen/creatinine mass ratio 10 0 -20 Serum or plasma creatinine measurement with calculation of estimated glomerular filtration rate > NRG Serum or plasma glucose measurement (mass/volume) 102 mg/dL 70-105 Serum or plasma calcium measurement (mass/volume) 8.6 mg/dL 8.5-10.1 Capillary blood glucose measurement by glucometer (mass/volume) - 01/29/17 07: 39 Capillary blood glucose measurement by glucometer (mass/volume) 100 mg/dL 70-110 Complete blood count (CBC) with automated white blood cell (WBC) differential - 01/29/17 07:49 Blood leukocytes automated count (number/volume) 9.6 10*3/uL 4.3-11.0 Blood erythrocytes automated count (number/volume) 4.74 10*6/uL 4.35-5.85 Venous blood hemoglobin measurement (mass/volume) 14.8 g/dL 13.3-17.7 Blood hematocrit (volume fraction) 42 % 40-54 Automated erythrocyte mean corpuscular volume 89 [foz_us] 80-99 Automated erythrocyte mean corpuscular hemoglobin (mass per erythrocyte) 31 pg 25-34 Automated erythrocyte mean corpuscular hemoglobin concentration measurement ( mass/volume) 35 g/dL 32-36 Automated erythrocyte distribution width ratio 12.8 % 10.0-14.5 Automated blood platelet count (count/volume) 205 10*3/uL 130-400 Automated blood platelet mean volume measurement 10.1 [foz_us] 7.4-10.4 Automated blood neutrophils/100 leukocytes 75 % 42-75 Automated blood lymphocytes/100 leukocytes 15 % 12-44 Blood monocytes/100 leukocytes 6 % 0-12 Automated blood eosinophils/100 leukocytes 4 % 0-10 Automated blood basophils/100 leukocytes 0 % 0-10 Blood neutrophils automated count (number/volume) 7.2 10*3 1.8-7.8 Blood lymphocytes automated count (number/volume) 1.5 10*3 1.0-4.0 Blood monocytes automated count (number/volume) 0.6 10*3 0.0-1.0 Automated eosinophil count 0.4 10*3/uL 0.0-0.3 Automated blood basophil count (count/volume) 0.0 10*3/uL 0.0-0.1 Comprehensive metabolic panel - 01/29/17 07:49 Serum or plasma sodium measurement (moles/volume) 138 mmol/L 135-145 Serum or plasma potassium measurement (moles/volume) 4.2 mmol/L 3.6-5.0 Serum or plasma chloride measurement (moles/volume) 103 mmol/L 98-107 Carbon dioxide 24 mmol/L 21-32 Serum or plasma anion gap determination (moles/volume) 11 mmol/L 5-14 Serum or plasma urea nitrogen measurement (mass/volume) 13 mg/dL 7-18 Serum or plasma creatinine measurement (mass/volume) 0.85 mg/dL 0.60-1.30 Serum or plasma urea nitrogen/creatinine mass ratio 15 NRG Serum or plasma creatinine measurement with calculation of estimated glomerular filtration rate > NRG Serum or plasma glucose measurement (mass/volume) 92 mg/dL 70-105 Serum or plasma calcium measurement (mass/volume) 8.9 mg/dL 8.5-10.1 Serum or plasma total bilirubin measurement (mass/volume) 0.5 mg/dL 0.1-1.0 Serum or plasma alkaline phosphatase measurement (enzymatic activity/volume) 73 U/L 40-136 Serum or plasma aspartate aminotransferase measurement (enzymatic activity/ volume) 30 U/L 5-34 Serum or plasma alanine aminotransferase measurement (enzymatic activity/volume ) 34 U/L 0-55 Serum or plasma protein measurement (mass/volume) 7.6 g/dL 6.4-8.2 Serum or plasma albumin measurement (mass/volume) 4.1 g/dL 3.2-4.5 Serum or plasma thyrotropin measurement by detection limit <=0.05 miu/l (units/ volume) - 01/29/17 07:49 Serum or plasma thyrotropin measurement by detection limit <=0.05 miu/l (units/ volume) 1.31 u[iU]/mL 0.35-4.94 Serum or plasma salicylates measurement (mass/volume) - 01/29/17 07:49 Serum or plasma salicylates measurement (mass/volume) < mg/dL 5.0-20.0 Serum or plasma acetaminophen measurement (mass/volume) - 01/29/17 07:49 Serum or plasma acetaminophen measurement (mass/volume) < ug/mL 10-30 Serum or plasma ethanol measurement (mass/volume) - 01/29/17 07:49 Serum or plasma ethanol measurement (mass/volume) < mg/dL <10 Complete urinalysis with reflex to culture - 01/29/17 16:00 Urine color determination YELLOW NRG Urine clarity determination CLEAR NRG Urine pH measurement by test strip 7 5-9 Specific gravity of urine by test strip 1.010 1.016- 1.022 Urine protein assay by test strip, semi-quantitative NEGATIVE NEGATIVE Urine glucose detection by automated test strip NEGATIVE NEGATIVE Erythrocytes detection in urine sediment by light microscopy NEGATIVE NEGATIVE Urine ketones detection by automated test strip NEGATIVE NEGATIVE Urine nitrite detection by test strip NEGATIVE NEGATIVE Urine total bilirubin detection by test strip NEGATIVE NEGATIVE Urine urobilinogen measurement by automated test strip (mass/volume) NORMAL NORMAL Urine leukocyte esterase detection by dipstick NEGATIVE NEGATIVE Automated urine sediment erythrocyte count by microscopy (number/high power field) NONE NRG Automated urine sediment leukocyte count by microscopy (number/high power field ) NONE NRG Bacteria detection in urine sediment by light microscopy NONE NRG Squamous epithelial cells detection in urine sediment by light microscopy RARE NRG Crystals detection in urine sediment by light microscopy NONE NRG Casts detection in urine sediment by light microscopy NONE NRG Mucus detection in urine sediment by light microscopy NEGATIVE NRG Complete urinalysis with reflex to culture NO NRG Urine drug screening test - 01/29/17 16:00 Urine phencyclidine detection by screening method NEGATIVE NEGATIVE Urine benzodiazepines detection by screening method NEGATIVE NEGATIVE Urine cocaine detection NEGATIVE NEGATIVE Urine amphetamines detection by screening method NEGATIVE NEGATIVE Urine methamphetamine detection by screening method NEGATIVE NEGATIVE Urine cannabinoids detection by screening method NEGATIVE NEGATIVE Urine opiates detection by screening method NEGATIVE NEGATIVE Urine barbiturates detection NEGATIVE NEGATIVE Screening urine tricyclic antidepressants detection NEGATIVE NEGATIVE Urine methadone detection by screening method NEGATIVE NEGATIVE Urine oxycodone detection NEGATIVE NEGATIVE Urine propoxyphene detection NEGATIVE NEGATIVE Comprehensive metabolic panel - 01/30/17 05:42 Serum or plasma sodium measurement (moles/volume) 140 mmol/L 135-145 Serum or plasma potassium measurement (moles/volume) 4.1 mmol/L 3.6-5.0 Serum or plasma chloride measurement (moles/volume) 105 mmol/L 98-107 Carbon dioxide 26 mmol/L 21-32 Serum or plasma anion gap determination (moles/volume) 9 mmol/L 5-14 Serum or plasma urea nitrogen measurement (mass/volume) 14 mg/dL 7-18 Serum or plasma creatinine measurement (mass/volume) 0.89 mg/dL 0.60-1.30 Serum or plasma urea nitrogen/creatinine mass ratio 16 NRG Serum or plasma creatinine measurement with calculation of estimated glomerular filtration rate > NRG Serum or plasma glucose measurement (mass/volume) 101 mg/dL 70-105 Serum or plasma calcium measurement (mass/volume) 9.0 mg/dL 8.5-10.1 Serum or plasma total bilirubin measurement (mass/volume) 0.7 mg/dL 0.1-1.0 Serum or plasma alkaline phosphatase measurement (enzymatic activity/volume) 73 U/L 40-136 Serum or plasma aspartate aminotransferase measurement (enzymatic activity/ volume) 27 U/L 5-34 Serum or plasma alanine aminotransferase measurement (enzymatic activity/volume ) 34 U/L 0-55 Serum or plasma protein measurement (mass/volume) 7.0 g/dL 6.4-8.2 Serum or plasma albumin measurement (mass/volume) 3.8 g/dL 3.2-4.5 Automated blood complete blood count (hemogram) panel - 04/14/17 07:05 Blood leukocytes automated count (number/volume) 6.4 10*3/uL 4.3-11.0 Blood erythrocytes automated count (number/volume) 4.36 10*6/uL 4.35-5.85 Venous blood hemoglobin measurement (mass/volume) 13.9 g/dL 13.3-17.7 Blood hematocrit (volume fraction) 39 % 40-54 Automated erythrocyte mean corpuscular volume 90 [foz_us] 80-99 Automated erythrocyte mean corpuscular hemoglobin (mass per erythrocyte) 32 pg 25-34 Automated erythrocyte mean corpuscular hemoglobin concentration measurement ( mass/volume) 36 g/dL 32-36 Automated erythrocyte distribution width ratio 12.8 % 10.0-14.5 Automated blood platelet count (count/volume) 174 10*3/uL 130-400 Automated blood platelet mean volume measurement 10.3 [foz_us] 7.4-10.4 PT panel in platelet poor plasma by coagulation assay - 02/27/18 07:05 Prothrombin time (PT) in platelet poor plasma by coagulation assay 12.1 s 12.2-14.7 INR in platelet poor plasma or blood by coagulation assay 0.9 0.8-1.4 Activated partial thromboplastin time (aPTT) in platelet poor plasma bycoagulation assay - 04/14/17 07:05 Activated partial thromboplastin time (aPTT) in platelet poor plasma bycoagulation assay 38 s 24-35 Comprehensive metabolic panel - 04/14/17 07:05 Serum or plasma sodium measurement (moles/volume) 140 mmol/L 135-145 Serum or plasma potassium measurement (moles/volume) 4.0 mmol/L 3.6-5.0 Serum or plasma chloride measurement (moles/volume) 108 mmol/L 98-107 Carbon dioxide 25 mmol/L 21-32 Serum or plasma anion gap determination (moles/volume) 7 mmol/L 5-14 Serum or plasma urea nitrogen measurement (mass/volume) 17 mg/dL 7-18 Serum or plasma creatinine measurement (mass/volume) 0.89 mg/dL 0.60-1.30 Serum or plasma urea nitrogen/creatinine mass ratio 19 NRG Serum or plasma creatinine measurement with calculation of estimated glomerular filtration rate > NRG Serum or plasma glucose measurement (mass/volume) 99 mg/dL 70-105 Serum or plasma calcium measurement (mass/volume) 9.2 mg/dL 8.5-10.1 Serum or plasma total bilirubin measurement (mass/volume) 0.5 mg/dL 0.1-1.0 Serum or plasma alkaline phosphatase measurement (enzymatic activity/volume) 67 U/L 40-136 Serum or plasma aspartate aminotransferase measurement (enzymatic activity/ volume) 24 U/L 5-34 Serum or plasma alanine aminotransferase measurement (enzymatic activity/volume ) 31 U/L 0-55 Serum or plasma protein measurement (mass/volume) 7.3 g/dL 6.4-8.2 Serum or plasma albumin measurement (mass/volume) 4.1 g/dL 3.2-4.5 Lipid 1996 panel - 04/14/17 07:05 Serum or plasma triglyceride measurement (mass/volume) 224 mg/dL <150 Serum or plasma cholesterol measurement (mass/volume) 181 mg/dL < 200 Serum or plasma cholesterol in HDL measurement (mass/volume) 31 mg/ dL 40-60 Cholesterol in LDL [mass/volume] in serum or plasma by direct assay 117 mg/dL 1-129 Serum or plasma cholesterol in VLDL measurement (mass/volume) 45 mg/ dL 5-40 Methicillin resistant Staphylococcus aureus (MRSA) screening culture - 07:05 Methicillin resistant Staphylococcus aureus (MRSA) screening culture NEG NRG Automated blood complete blood count (hemogram) panel - 04/15/17 05:28 Blood leukocytes automated count (number/volume) 5.9 10*3/uL 4.3-11.0 Blood erythrocytes automated count (number/volume) 4.06 10*6/uL 4.35-5.85 Venous blood hemoglobin measurement (mass/volume) 12.9 g/dL 13.3-17.7 Blood hematocrit (volume fraction) 37 % 40-54 Automated erythrocyte mean corpuscular volume 90 [foz_us] 80-99 Automated erythrocyte mean corpuscular hemoglobin (mass per erythrocyte) 32 pg 25-34 Automated erythrocyte mean corpuscular hemoglobin concentration measurement ( mass/volume) 35 g/dL 32-36 Automated erythrocyte distribution width ratio 12.7 % 10.0-14.5 Automated blood platelet count (count/volume) 142 10*3/uL 130-400 Automated blood platelet mean volume measurement 11.0 [foz_us] 7.4-10.4 Whole blood basic metabolic panel - 04/15/17 05:28 Serum or plasma sodium measurement (moles/volume) 139 mmol/L 135-145 Serum or plasma potassium measurement (moles/volume) 4.0 mmol/L 3.6-5.0 Serum or plasma chloride measurement (moles/volume) 107 mmol/L 98-107 Carbon dioxide 22 mmol/L 21-32 Serum or plasma anion gap determination (moles/volume) 10 mmol/L 5-14 Serum or plasma urea nitrogen measurement (mass/volume) 12 mg/dL 7-18 Serum or plasma creatinine measurement (mass/volume) 0.81 mg/dL 0.60-1.30 Serum or plasma urea nitrogen/creatinine mass ratio 15 NRG Serum or plasma creatinine measurement with calculation of estimated glomerular filtration rate > NRG Serum or plasma glucose measurement (mass/volume) 112 mg/dL 70-105 Serum or plasma calcium measurement (mass/volume) 8.7 mg/dL 8.5-10.1 Automated blood complete blood count (hemogram) panel - 12/15/17 08:51 Blood leukocytes automated count (number/volume) 5.9 10*3/uL 4.3-11.0 Blood erythrocytes automated count (number/volume) 4.65 10*6/uL 4.35-5.85 Venous blood hemoglobin measurement (mass/volume) 14.5 g/dL 13.3-17.7 Blood hematocrit (volume fraction) 41 % 40-54 Automated erythrocyte mean corpuscular volume 87 [foz_us] 80-99 Automated erythrocyte mean corpuscular hemoglobin (mass per erythrocyte) 31 pg 25-34 Automated erythrocyte mean corpuscular hemoglobin concentration measurement ( mass/volume) 36 g/dL 32-36 Automated erythrocyte distribution width ratio 13.3 % 10.0-14.5 Automated blood platelet count (count/volume) 219 10*3/uL 130-400 Automated blood platelet mean volume measurement 10.2 [foz_us] 7.4-10.4 Comprehensive metabolic panel - 12/15/17 08:51 Serum or plasma sodium measurement (moles/volume) 139 mmol/L 135-145 Serum or plasma potassium measurement (moles/volume) 4.4 mmol/L 3.6-5.0 Serum or plasma chloride measurement (moles/volume) 107 mmol/L 98-107 Carbon dioxide 22 mmol/L 21-32 Serum or plasma anion gap determination (moles/volume) 10 mmol/L 5-14 Serum or plasma urea nitrogen measurement (mass/volume) 11 mg/dL 7-18 Serum or plasma creatinine measurement (mass/volume) 1.05 mg/dL 0.60-1.30 Serum or plasma urea nitrogen/creatinine mass ratio 10 NRG Serum or plasma creatinine measurement with calculation of estimated glomerular filtration rate > NRG Serum or plasma glucose measurement (mass/volume) 109 mg/dL 70-105 Serum or plasma calcium measurement (mass/volume) 9.5 mg/dL 8.5-10.1 Serum or plasma total bilirubin measurement (mass/volume) 0.5 mg/dL 0.1-1.0 Serum or plasma alkaline phosphatase measurement (enzymatic activity/volume) 68 U/L 40-136 Serum or plasma aspartate aminotransferase measurement (enzymatic activity/ volume) 33 U/L 5-34 Serum or plasma alanine aminotransferase measurement (enzymatic activity/volume ) 37 U/L 0-55 Serum or plasma protein measurement (mass/volume) 8.0 g/dL 6.4-8.2 Serum or plasma albumin measurement (mass/volume) 4.4 g/dL 3.2-4.5 CALCIUM CORRECTED 9.2 mg/dL 8.5-10.1 Lipid 1996 panel - 12/15/17 08:51 Serum or plasma triglyceride measurement (mass/volume) 228 mg/dL <150 Serum or plasma cholesterol measurement (mass/volume) 211 mg/dL < 200 Serum or plasma cholesterol in HDL measurement (mass/volume) 38 mg/ dL 40-60 Cholesterol in LDL [mass/volume] in serum or plasma by direct assay 142 mg/dL 1-129 Serum or plasma cholesterol in VLDL measurement (mass/volume) 46 mg/ dL 5-40 PT panel in platelet poor plasma by coagulation assay - 12/15/17 08:51 Prothrombin time (PT) in platelet poor plasma by coagulation assay 12.2 s 12.2-14.7 INR in platelet poor plasma or blood by coagulation assay 0.9 0.8-1.4 Activated partial thromboplastin time (aPTT) in platelet poor plasma bycoagulation assay - 12/15/17 08:51 Activated partial thromboplastin time (aPTT) in platelet poor plasma bycoagulation assay 32 s 24-35 Methicillin resistant Staphylococcus aureus (MRSA) screening culture - 08:51 Methicillin resistant Staphylococcus aureus (MRSA) screening culture NEG NRG Activated partial thromboplastin time (aPTT) in platelet poor plasma bycoagulation assay - 12/15/17 15:32 Activated partial thromboplastin time (aPTT) in platelet poor plasma bycoagulation assay 99 s 24-35 Activated partial thromboplastin time (aPTT) in platelet poor plasma bycoagulation assay - 12/15/17 17:08 Activated partial thromboplastin time (aPTT) in platelet poor plasma bycoagulation assay 49 s 24-35 Encounters ACCT No. Visit Date/Time Discharge Status Pt. Type Provider Facility Loc./Unit Complaint [id number] 12/15/2017 08:21:00 12/16/2017 10:06:00 DIS Outpatient ZEE SOUSA MD, FACC, FACP CCDS [facility] [address] [id number] 07/07/2017 07:25:00 07/07/2017 23:59:59 CLS Outpatient ZEE SOUSA MD, FACC, FACP CCDS [facility] CARD I70.212 PAD [id number] 05/13/2017 08:00:00 05/13/2017 23:59:59 CLS Preadmit LARS AMATO FACC, ALI FACP CCDS [facility] CARD I70.212 PAD [id number] 04/14/2017 06:34:00 04/15/2017 10:05:00 DIS Outpatient LARS WATSONC, ALI FACP CCDS [facility] CATH PVD,LEG DISCOMFORT,CLAUDICATION [id number] 02/12/2017 07:45:00 02/12/2017 23:59:59 CLS Preadmit LARS AMATO FACC, ALI FACP CCDS [facility] CARD R06.02 SOB [id number] 01/29/2017 09:30:00 01/30/2017 10:52:00 DIS Inpatient ORENDER DO, SYLVIA S [facility] ICU OVERDOSE,AMS [id number] 08/05/2016 07:07:00 08/06/2016 10:15:00 DIS Outpatient LARS WATSONC, ALI FACP CCDS [facility] CATH PAD,HL [id number] 07/22/2016 07:27:00 07/23/2016 09:20:00 DIS Outpatient LARS WATSONC, ALI FACP CCDS [facility] CATH PAD, BILATERAL LEG DISCOMFORTS,HYPERLIPIDEMIA [id number] 06/03/2016 11:46:00 06/03/2016 23:59:59 CLS Outpatient LARS AMATO FACC, ALI FACP CCDS [facility] RAD PAD,TOBACCO USER,ABNORMAL ECG [id number] 05/15/2016 10:39:00 05/15/2016 23:59:59 CLS Outpatient LARS AMATO FACC, ALI FACP CCDS [facility] LAB PAD,TOBACCO USER,ABNORMAL ECG [id number] 08/31/2015 14:08:00 08/31/2015 23:59:59 CLS Outpatient LARS WATSONC, ALI FACP CCDS [facility] CARD PAD, TOBACCO USER, ABNORMAL EKG [id number] 06/29/2015 10:39:00 06/29/2015 23:59:59 CLS Outpatient JACKIE GONZALEZ APRN [facility] RAD THORACIC PAIN LT SCAPULA, LT POSRERIOR RIB PAIN [id number] 06/04/2015 08:47:00 06/04/2015 23:59:59 CLS Outpatient QUINTEN ZENG MD [facility] SDC [id number] 06/01/2015 05:39:00 06/01/2015 09:28:00 DIS Outpatient QUINTEN ZENG MD [facility] PREOP SCREENING [id number] 05/30/2015 11:48:00 05/30/2015 23:59:59 CLS Outpatient JACKIE GONZALEZ APRN [facility] RAD [id number] 07/31/2015 12:03:00 Document Registration
[2018-01-19] MEDS ORDERED: NS IV 1000 ML 1,000 ML IV SCH (14:14)
[2018-01-19] MEDS ORDERED: fentaNYL INJECTION 100 MCG/2 ML AMP IVP ONE ×3 (14:30→16:00)
[2018-01-19 14:40] LABS: BASOPHILS % (AUTO) 0 % (0-10); EOSINOPHILS # (AUTO) 0.2 10^3/uL (0.0-0.3); EOSINOPHILS % (AUTO) 2 % (0-10); HEMATOCRIT 37 % (40-54); HEMOGLOBIN 12.5 G/DL (13.3-17.7); LYMPHOCYTES # (AUTO) 1.8 X 10^3 (1.0-4.0); LYMPHOCYTES % (AUTO) 15 % (12-44); MEAN CORPUSCULAR HEMOGLOBIN 30 PG (25-34); MEAN CORPUSCULAR HGB CONC 34 G/DL (32-36); MEAN CORPUSCULAR VOLUME 88 FL (80-99); MEAN PLATELET VOLUME 10.1 FL (7.4-10.4); MONOCYTES # (AUTO) 0.8 X 10^3 (0.0-1.0); MONOCYTES % (AUTO) 7 % (0-12); NEUTROPHILS % (AUTO) 77 % (42-75); PLATELET COUNT 405 10^3/uL (130-400); RED BLOOD COUNT 4.21 10^6/uL (4.35-5.85); RED CELL DISTRIBUTION WIDTH 13.2 % (10.0-14.5); WHITE BLOOD COUNT 11.8 10^3/uL (4.3-11.0)
[2018-01-19 14:53] LABS: PROTHROMBIN TIME PATIENT 13.2 SEC (12.2-14.7)
[2018-01-19] MEDS ORDERED: TRAM50TA2 (14:57)
[2018-01-19] MEDS ORDERED: OXYC-471 (14:57)
[2018-01-19] MEDS ORDERED: GABA-486 (14:57)
[2018-01-19 14:59] LABS: ALANINE AMINOTRANSFERASE 77 U/L (0-55); ALBUMIN 3.5 GM/DL (3.2-4.5); ALKALINE PHOSPHATASE 143 U/L (40-136); BILIRUBIN,TOTAL 0.7 MG/DL (0.1-1.0); BUN/CREATININE RATIO 13; CALCIUM 9.4 MG/DL (8.5-10.1); CARBON DIOXIDE 22 MMOL/L (21-32); CHLORIDE 100 MMOL/L (98-107); CREATININE SERUM 0.87 MG/DL (0.60-1.30); GFR ESTIMATED > 60; GLUCOSE 171 MG/DL (70-105); POTASSIUM 3.2 MMOL/L (3.6-5.0); SODIUM 135 MMOL/L (135-145); TOTAL PROTEIN 7.9 GM/DL (6.4-8.2)
[2018-01-19 15:08] LABS: ERYTHROCYTE SEDIMENTATION RATE 87 MM/HR (0-30)
--- NOTE | 2018-01-19 15:23 | Diagnostic Imaging Report ---
PATIENT HISTORY: Tachycardia. TECHNIQUE: Single frontal view of the chest. COMPARISON: Radiographs from 06/29/2015. FINDINGS: Lung volumes are mildly large. There is an irregularly-shaped density overlying the left hilum, which was not present on the 2016 radiographs. The lung lai are otherwise clear. The heart is normal in size. No pericardial effusion or pneumothorax is seen. There is no acute osseous abnormality. IMPRESSION: 1. Irregular shaped density overlying the left hilum, appears artificial, may be external to the patient. Please correlate on exam and with patient history. Dictated by: Dictated on workstation # [id number]
[2018-01-19 15:30] VITALS: BP 116/66
[2018-01-19] MEDS ORDERED: CLINDAMYCIN 900 MG/50 ML IVPB 50 ML IV ONE (15:30)
[2018-01-19] MEDS ORDERED: VANCOMYCIN INJECTION 1,000 MG in NS (IVPB) 250 ML IV ONE (15:30)
[2018-01-19] MEDS ORDERED: NS IV 1000 ML 1,000 ML IV ONE (15:50)
--- NOTE | 2018-01-19 15:50 | Diagnostic Imaging Report ---
PROCEDURE: US right lower extremity venous. TECHNIQUE: Multiple real-time grayscale images were obtained over the right lower extremity in various projections. Additional spectral analysis and color Doppler duplex images were also obtained. INDICATION: Right leg pain for three weeks. Patient is status post femoropopliteal bypass. FINDINGS: There is no evidence of right lower extremity DVT. Right lower extremity deep venous system shows normal response to augmentation. Compression was difficult due to patient pain. No fluid collections are seen. IMPRESSION: No evidence of right lower extremity DVT. Dictated by: Dictated on workstation # [id number]
--- NOTE | 2018-01-19 15:57 | Diagnostic Imaging Report ---
INDICATION: Post right femoropopliteal bypass three weeks ago with increasing groin pain and thigh pain. FINDINGS: The [place] right SFA is occluded. Patient has a right femoropopliteal bypass graft. The graft is patent. Anterior tibial, posterior tibial, and dorsalis pedis arteries are patent. There is a small fluid collection medial to the graft proximally measuring 3.4 x 1.2 x 2.5 cm. No internal vascularity is present. IMPRESSION: 1. Patent right femoropopliteal bypass graft. 2. Small fluid collection along the anterior medial aspect of the proximal graft. This could represent a small residual hematoma although small abscess cannot be entirely excluded. Follow-up to confirm clearing could be obtained. Dictated by: Dictated on workstation # [id number]
[2018-01-19] MEDS ORDERED: DILTIAZEM 25 MG/5 ML INJ (CARDIZEM) VIAL IVP ONE (16:00)
[2018-01-19] MEDS ORDERED: DILTIAZEM INJECTION 125 MG in NS (IVPB) 100 ML IV SCH (16:00)
--- NOTE | 2018-01-19 16:09 | ED General ---
General Chief Complaint: Lower Extremity Stated Complaint: R LEG PAIN Nursing Triage Note: TO ROOM ACCOMPIED BY DAUGHTER. PATIENT REPORTS THAT HE HAS HAD R LEG PAIN SINCE STENT PLACED ON DEC 18 AT [facility] HAS POOR SENSTATION IN LEG. SAW DR SOUSA [address] AND WAS PLACED OXYCODONE 5MG ON RELEIF OF PAIN Nursing Sepsis Screen: No Definite Risk Source of Information: Patient Exam Limitations: No Limitations History of Present Illness Date Seen by Provider: Jan 19, 2018 Time Seen by Provider: 14:09 Initial Comments This 57 year old gentleman presents to the emergency room with primary complaint of right thigh pain. Patient had a femoral graft performed at [facility] about 3 weeks ago for peripheral vascular disease. He reports his pain is actually increased rather than decreased since surgery. He also reports fevers at home of up to 103. He had a CTA performed on January 15 which showed a patent graft. He is afebrile at present the heart rate is in the 130s. The areas around the right groin and around the incision near the knee are both very tender. He is having difficulty walking because of the pain. Pedal pulse is strong in the right foot. Capillary refill is 5 seconds or less in the toes. Patient is anticoagulated on Eliquis and denies missing any doses. He also takes Plavix. Allergies and Home Medications Allergies Coded Allergies: Penicillins (Unverified Allergy, Mild, 10/24/08) cefaclor (Unverified Allergy, Mild, 10/24/08) Home Medications Clopidogrel Bisulfate 75 Mg Tablet, 75 MG PO DAILY, (Reported) Melatonin 10 Mg Tab.rapdis, 10 MG PO HS PRN for SLEEP, (Reported) Rivaroxaban 10 Mg Tablet, 2.5 MG PO BID Prescribed by: OTILIO MARKS on 12/16/17 0930 Patient Home Medication List Home Medication List Reviewed: Yes Review of Systems Review of Systems Constitutional: see HPI EENTM: no symptoms reported Respiratory: no symptoms reported Cardiovascular: see HPI Gastrointestinal: no symptoms reported Genitourinary: no symptoms reported Musculoskeletal: no symptoms reported Skin: no symptoms reported Hematologic/Lymphatic: No Symptoms Reported Past Jlolhwb-Gxrntv-Tcovwk Hx Past Med/Social Hx: Reviewed and Corrections made Patient Social History Alcohol Use: Denies Use Recreational Drug Use: No Type Used: Cigarettes Former Smoker, Quit: Dec 15, 2016 Recent Foreign Travel: No Contact w/Someone Who Travel: No Recent Infectious Disease Expo: No Recent Hopitalizations: No Seasonal Allergies Seasonal Allergies: No Past Medical History Surgeries: Yes (RIGHT HAND FINGER AMPUTATION, HERNIAS X2 INGUINAL, TOE TENDON, AORTIC STENT) Orthopedic, Vascular Surgery (right femoral artery graft) Respiratory: No Currently Using CPAP: No Currently Using BIPAP: No Cardiac: Yes (HX OF AORTIC STENT, multiple stents to lorin. lower extremities) Deep Vein Thrombosis Neurological: No Sexually Transmitted Disease: No HIV/AIDS: No Genitourinary: No Gastrointestinal: No Musculoskeletal: No Endocrine: No HEENT: No Cancer: No Psychosocial: Yes Sleep Difficulties, Suicide Attempts Integumentary: No Blood Disorders: No Adverse Reaction/Blood Tranf: No Physical Exam-Suspected Sepsis Physical Exam Vital Signs Vital Signs - First Documented 01/19/18 01/19/18 14:07 15:30 Temp 98.1 Pulse 138 Resp 18 B/P (MAP) 104/44 (64) Pulse Ox 99 O2 Delivery Room Air Capillary Refill : Less Than 3 Seconds Blood Pressure Mean: 64 Height, Weight, BMI Height: 6'4.00" Weight: 160lbs. 0.0oz. 72.497383qi; 21.9 BMI Method:Stated General Appearance: WD/WN, Mild Distress HEENT: PERRL/EOMI, Normal ENT Inspection Neck: Normal Inspection Respiratory: Lungs Clear, Normal Breath Sounds, No Accessory Muscle Use, No Respiratory Distress Cardiovascular: No Edema, No Murmur, Normal Peripheral Pulses, Tachycardia Gastrointestinal: Non Tender, Soft Extremity: Other (amputation of right fingers. Positive pedal pulse in the right foot. Capillary refill 5 seconds or less in the toes. 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 Norm as Tested Skin: normal color, warm/dry, other (incisions clean, dry, and well healing) Focused Exam Lactate Level 01/19/18 14:27: Lactic Acid Level 2.07*H 01/19/18 17:57: Lactic Acid Level 1.55 Lactic Acid Level Laboratory Tests Test 01/19/18 17:57 Lactic Acid Level 1.55 MMOL/L (0.50-2.00) Progress/Results/Core Measures Suspected Sepsis Recent Fever Within 48 Hours: No Infection Criteria Present: None New/Unexplained Altered Menta: No Sepsis Screen: No Definite Risk SIRS Temperature:98.1 Pulse: 138 Respiratory Rate: 18 Laboratory Tests 01/19/18 14:27: White Blood Count 11.8H Blood Pressure 104 /44 Mean: 64 01/19/18 14:27: Lactic Acid Level 2.07*H 01/19/18 17:57: Lactic Acid Level 1.55 Laboratory Tests 01/19/18 14:27: Creatinine 0.87, INR Comment 1.0, Platelet Count 405H, Total Bilirubin 0.7 Results/Orders Lab Results Laboratory Tests Test 01/19/18 14:27 01/19/18 17:45 01/19/18 17:57 Range/Units White Blood Count 11.8 H 4.3-11.0 10^3/uL Red Blood Count 4.21 L 4.35-5.85 10^6/uL Hemoglobin 12.5 L 13.3-17.7 G/DL Hematocrit 37 L 40-54 % Mean Corpuscular Volume 88 80-99 FL Mean Corpuscular Hemoglobin 30 25-34 PG Mean Corpuscular Hemoglobin Concent 34 32-36 G/DL Red Cell Distribution Width 13.2 10.0-14.5 % Platelet Count 405 H 130-400 10^3/uL Mean Platelet Volume 10.1 7.4-10.4 FL Neutrophils (%) (Auto) 77 H 42-75 % Lymphocytes (%) (Auto) 15 12-44 % Monocytes (%) (Auto) 7 0-12 % Eosinophils (%) (Auto) 2 0-10 % Basophils (%) (Auto) 0 0-10 % Neutrophils # (Auto) 9.0 H 1.8-7.8 X 10^3 Lymphocytes # (Auto) 1.8 1.0-4.0 X 10^3 Monocytes # (Auto) 0.8 0.0-1.0 X 10^3 Eosinophils # (Auto) 0.2 0.0-0.3 10^3/uL Basophils # (Auto) 0.0 0.0-0.1 10^3/uL Erythrocyte Sedimentation Rate 87 H 0-30 MM/HR Prothrombin Time 13.2 12.2-14.7 SEC INR Comment 1.0 0.8-1.4 Activated Partial Thromboplast Time 39 H 24-35 SEC Sodium Level 135 135-145 MMOL/L Potassium Level 3.2 L 3.6-5.0 MMOL/L Chloride Level 100 98-107 MMOL/L Carbon Dioxide Level 22 21-32 MMOL/L Anion Gap 13 5-14 MMOL/L Blood Urea Nitrogen 11 7-18 MG/DL Creatinine 0.87 0.60-1.30 MG/DL Estimat Glomerular Filtration Rate > 60 BUN/Creatinine Ratio 13 Glucose Level 171 H 70-105 MG/DL Lactic Acid Level 2.07 *H 1.55 0.50-2.00 MMOL/L Calcium Level 9.4 8.5-10.1 MG/DL Corrected Calcium 9.8 8.5-10.1 MG/DL Total Bilirubin 0.7 0.1-1.0 MG/DL Aspartate Amino Transf (AST/SGOT) 45 H 5-34 U/L Alanine Aminotransferase (ALT/SGPT) 77 H 0-55 U/L Alkaline Phosphatase 143 H 40-136 U/L C-Reactive Protein High Sensitivity 22.20 H 0.00-0.50 MG/DL Total Protein 7.9 6.4-8.2 GM/DL Albumin 3.5 3.2-4.5 GM/DL Urine Color YELLOW Urine Clarity CLEAR Urine pH 6 5-9 Urine Specific [place] 1.020 1.016-1.022 Urine Protein 2+ H NEGATIVE Urine Glucose (UA) NEGATIVE NEGATIVE Urine Ketones NEGATIVE NEGATIVE Urine Nitrite NEGATIVE NEGATIVE Urine Bilirubin NEGATIVE NEGATIVE Urine Urobilinogen 4 H NORMAL MG/DL Urine Leukocyte Esterase 1+ H NEGATIVE Urine RBC (Auto) 2+ H NEGATIVE Urine RBC RARE /HPF Urine WBC NONE /HPF Urine Squamous Epithelial Cells RARE /HPF Urine Crystals NONE /LPF Urine Bacteria TRACE /HPF Urine Casts NONE /LPF Urine Mucus NEGATIVE /LPF Urine Culture Indicated NO My Orders Orders - JUS ASHER MD Cbc With Automated Diff (01/19/18 14:14) Comprehensive Metabolic Panel (01/19/18 14:14) Blood Culture (01/19/18 14:14) Sputum Culture (01/19/18 14:14) Urinalysis (01/19/18 14:14) Urine Culture (01/19/18 14:14) Protime With Inr (01/19/18 14:14) Partial Thromboplastin Time (01/19/18 14:14) Chest 1 View, Ap/Pa Only (01/19/18 14:14) Saline Lock/Iv-Start (01/19/18 14:14) Saline Lock/Iv-Start (01/19/18 14:14) Vital Signs Adult Sepsis Patie Q15M (01/19/18 14:14) O2 (01/19/18 14:14) Remove Rings In Anticipation O (01/19/18 14:14) Lactic Acid Analyzer (01/19/18 14:14) Ns Iv 1000 Ml (Sodium Chloride 0.9%) (01/19/18 14:14) Hs C Reactive Protein (01/19/18 14:16) Erythrocyte Sedimentation Rate (01/19/18 14:16) Us Right Low Ext [id number] (01/19/18 14:18) Us Venous Lower Ext Rt (01/19/18 14:18) Fentanyl Injection (Sublimaze Injection (01/19/18 14:30) Clindamycin 900 Mg/50 Ml Ivpb (Cleocin P (01/19/18 15:30) Vancomycin Injection (Vancomycin Injecti (01/19/18 15:30) Ekg Tracing (01/19/18 15:21) Monitor-Rhythm Ecg Trace Only (01/19/18 15:21) Diltiazem Injection (Cardizem Injection) (01/19/18 16:00) Ns (Ivpb) (Sodium C... W/Diltiazem Injec (01/19/18 16:00) Fentanyl Injection (Sublimaze Injection (01/19/18 16:00) Saline Lock/Iv-Start (01/19/18 15:50) Ns Iv 1000 Ml (Sodium Chloride 0.9%) (01/19/18 15:50) Fentanyl Injection (Sublimaze Injection (01/19/18 16:00) Morphine Injection (Morphine Injection (01/19/18 17:30) Potassium Cl 10meq/50ml Ivpb (Kcl 10 Meq (01/19/18 18:30) Medications Given in ED Current Medications Medications Dose Ordered Sig/Marilee Route Start Time Stop Time Status Last Admin Dose Admin Clindamycin Phosphate/Dextrose 50 ml @ 100 mls/hr ONCE ONCE IV 01/19/18 15:30 01/19/18 15:59 DC 01/19/18 15:35 100 MLS/HR Fentanyl Citrate 50 mcg ONCE ONCE IVP 01/19/18 14:30 01/19/18 14:31 DC 01/19/18 14:38 50 MCG Fentanyl Citrate 75 mcg ONCE ONCE IVP 01/19/18 16:00 01/19/18 16:01 DC 01/19/18 16:12 75 MCG Morphine Sulfate 5 mg ONCE ONCE IVP 01/19/18 17:30 01/19/18 17:31 DC 01/19/18 17:27 5 MG Potassium Chloride 50 ml @ 50 mls/hr ONCE ONCE IV 01/19/18 18:30 01/19/18 19:29 01/19/18 18:30 50 MLS/HR Sodium Chloride 1,000 ml @ 0 mls/hr Q0M ONCE IV 01/19/18 15:50 01/19/18 15:51 DC 01/19/18 16:39 1,000 MLS/HR Vancomycin HCl 1000 mg/Sodium Chloride 250 ml @ 250 mls/hr ONCE ONCE IV 01/19/18 15:30 01/19/18 16:29 DC 01/19/18 16:03 250 MLS/HR Vital Signs/I&O 01/19/18 01/19/18 01/19/18 14:07 15:30 16:56 Temp 98.1 Pulse 138 95 88 Resp 18 18 18 B/P (MAP) 104/44 (64) 116/66 (83) 99/63 (75) Pulse Ox 99 93 100 O2 Delivery Room Air Room Air Capillary Refill : Less Than 3 Seconds Blood Pressure Mean: 64 Progress Note #1: Time: 16:20 Progress Note Patient was found to have tachycardia on initial assessment. He also reported having fevers up to 103 at home. For this reason septic workup was pursued. IV fluids were initiated. Clindamycin was selected as the initial antibiotic of choice as patient has allergies to penicillin and cephalosporins. Vancomycin will be given as the second antibiotic. Tachycardia was assessed by EKG. Patient was found to have atrial fibrillation with RVR. A Cardizem drip is being initiated. Patient has received 1 L of IV normal saline. A second liter will be given as well. Source of infection has not yet been identified. There is no evidence of pneumonia on chest x-ray. UA is pending as patient has not been able to urinate. There is a fluid collection at the superior aspect of the graft in the right thigh. I discussed this with the radiologist. This is a possible source of infection, but the size of this fluid collection has decreased since the CT scan performed January 15. UA is still pending. Progress Note #2: Time: 17:00 Progress Note Patient has been unable to urinate. Rhythm has converted to sinus rhythm on cardizem drip. Progress Note #3: Time: 17:39 Progress Note Case was discussed with Dr. Randle, hospitalist at [facility]. She felt this patient deserved admission to the ICU given the need for Cardizem drip and presence of suspected sepsis. Case was then discussed with Dr. Laureano, marketing production specialist. He agreed to admit the patient to the ICU at [facility]. He requested a UA be obtained as soon as possible even if catheterization is necessary. He also requested the Cardizem rate to be decreased to 5 mg per hour. The reason for transfer is that abscess around the surgical site cannot be completely ruled out as source of infection. Vascular surgery is not available at this facility and continuity of care at [facility] is felt very important in this case. Progress Note #4: Time: 18:27 Progress Note Patient completed clindamycin and vancomycin. UA revealed no evidence of urinary tract infection. He completed 2 full liters of IV normal saline. 10 mEq of potassium will be hung prior to departure. Patient continues on the Cardizem drip. EMS is here now for transport. ECG Initial ECG Impression Date: Jan 19, 2018 Initial ECG Impression Time: 15:39 Initial ECG Rate: 137 Initial ECG Rhythm: A Fib/Flutter Initial ECG Impression: Atrial Fibrillation w/RVR Comment Atrial fibrillation with RVR. No ST elevation or depression. Diagnostic Imaging Comments Chest x-ray viewed by me and report reviewed. The density over the left hilum is a plastic or resin turtle necklace and is external to the patient. See report below: NAME: WILLIAM AVILA [facility] REC#: [id number] PT STATUS: REG ER : 1960 PHYSICIAN: JUS ASHER MD ADMIT DATE: 01/19/18/ER Draft Date of Exam:01/19/18 CHEST 1 VIEW, AP/PA ONLY PATIENT HISTORY: Tachycardia. TECHNIQUE: Single frontal view of the chest. COMPARISON: Radiographs from 06/29/2015. FINDINGS: Lung volumes are mildly large. There is an irregularly-shaped density overlying the left hilum, which was not present on the 2016 radiographs. The lung lai are otherwise clear. The heart is normal in size. No pericardial effusion or pneumothorax is seen. There is no acute osseous abnormality. IMPRESSION: 1. Irregular shaped density overlying the left hilum, appears artificial, may be external to the patient. Please correlate on exam and with patient history. Dictated on workstation # [id number] Dict: 01/19/18 1452 Trans: 01/19/18 1522 [id number] Interpreted by: JUDE DANIEL MD Diagonstic Imaging: Ultrasound Plain Films/CT/US/NM/MRI: leg Comments NAME: WILLIAM AVILA MED REC#: [id number] PT STATUS: REG ER : 1960 PHYSICIAN: JUS ASHER MD ADMIT DATE: 01/19/18/ER Draft Date of Exam:01/19/18 US VENOUS LOWER EXT RT PROCEDURE: US right lower extremity venous. TECHNIQUE: Multiple real-time grayscale images were obtained over the right lower extremity in various projections. Additional spectral analysis and color Doppler duplex images were also obtained. INDICATION: Right leg pain for three weeks. Patient is status post femoropopliteal bypass. FINDINGS: There is no evidence of right lower extremity DVT. Right lower extremity deep venous system shows normal response to augmentation. Compression was difficult due to patient pain. No fluid collections are seen. IMPRESSION: No evidence of right lower extremity DVT. Dictated on workstation # [id number] Dict: 01/19/18 1538 Trans: 01/19/18 1550 [id number] Interpreted by: PM WOMACK MD Diagonstic Imaging: Ultrasound Plain Films/CT/US/NM/MRI: leg Comments NAME: WILLIAM AVILA MED REC#: [id number] PT STATUS: REG ER : 1960 PHYSICIAN: JUS ASHER MD ADMIT DATE: 01/19/18/ER Draft Date of Exam:01/19/18 US RIGHT LOW EXT [id number] INDICATION: Post right femoropopliteal bypass three weeks ago with increasing groin pain and thigh pain. FINDINGS: The [place] right SFA is occluded. Patient has a right femoropopliteal bypass graft. The graft is patent. Anterior tibial, posterior tibial, and dorsalis pedis arteries are patent. There is a small fluid collection medial to the graft proximally measuring 3.4 x 1.2 x 2.5 cm. No internal vascularity is present. IMPRESSION: 1. Patent right femoropopliteal bypass graft. 2. Small fluid collection along the anterior medial aspect of the proximal graft. This could represent a small residual hematoma although small abscess cannot be entirely excluded. Follow-up to confirm clearing could be obtained. Dictated on workstation # [id number] Dict: 01/19/18 1539 Trans: 01/19/18 1556 [id number] Interpreted by: MP WOMACK MD Departure Impression Primary Impression: Sepsis Qualified Codes: A41.9 - Sepsis, unspecified organism Additional Impressions: Atrial fibrillation with RVR Postoperative pain postoperative fluid collection Hypokalemia Disposition: 02 XFER SHT-TRM HOSP Condition: Improved Transfer Time Spoke to Accepting Phy: 17:30 Transfer Time: 18:37 Transfer Facility: [facility] Method of Transfer: EMS Departure-Patient Inst. Referrals: ZEE SOUSA MD FACP FAC CCDS (PCP) Primary Care Physician JUS ASHER MD Jan 19, 2018 16:09
[2018-01-19 16:56] VITALS: BP 99/63
[2018-01-19] MEDS ORDERED: morphine INJ 10 MG/ML 1ML (SYR OR VIAL) IVP ONE (17:30)
[2018-01-19 18:03] LABS: BILIRUBIN,URINE NEGATIVE (NEGATIVE); CLARITY,URINE CLEAR; COLOR,URINE YELLOW; GLUCOSE, URINE (UA) NEGATIVE (NEGATIVE); KETONES,URINE NEGATIVE (NEGATIVE); LEUKOCYTE ESTERASE ,URINE 1+ (NEGATIVE); NITRITE,URINE NEGATIVE (NEGATIVE); PH,URINE 6 (5-9); PROTEIN,URINE 2+ (NEGATIVE); UROBILINOGEN,URINE 4 MG/DL (NORMAL)
[2018-01-19 18:21] LABS: BACTERIA,URINE TRACE /HPF; RBC,URINE RARE /HPF; SQUAMOUS EPITHELIAL CELL,UR RARE /HPF
[2018-01-19 18:27] VITALS: BP 103/60
[2018-01-19] MEDS ORDERED: POTASSIUM CL 10MEQ/50ML IVPB 50 ML IV ONE (18:30)
== END 2018-01-19 18:37 | disposition short-term general hospital (02) ==
LOC: EDUNIT# 14:02 → ER 14:02
DX: M96.89 Other intraoperative and postprocedural complications and disorders of the musculoskeletal system (principal); A41.9 Sepsis, unspecified organism; G89.18 Other acute postprocedural pain; I48.91 Unspecified atrial fibrillation; E87.6 Hypokalemia; I73.9 Peripheral vascular disease, unspecified; Z88.0 Allergy status to penicillin; Z88.8 Allergy status to other drugs, medicaments and biological substances; Z86.718 Personal history of other venous thrombosis and embolism; Z91.5 Personal history of self-harm; Z79.02 Long term (current) use of antithrombotics/antiplatelets; Z79.01 Long term (current) use of anticoagulants; Z87.891 Personal history of nicotine dependence; Z87.19 Personal history of other diseases of the digestive system; Z95.820 Peripheral vascular angioplasty status with implants and grafts
CPT/HCPCS: 36415; 71045; 80053; 81000; 83605; 85025; 85610; 85652; 85730; 86141; 87040; 87088; 93005; 93041; 93926

== ENCOUNTER 2018-01-27 13:21 | Outpatient (RCR) | payer BC ==
[~2018-01-27 13:21] MED LIST changes: +GABA-486; +OXYC-471; +TRAM50TA2
== END 2018-04-08 12:02 | disposition home or self-care (01) ==
PROVIDERS: ATTEND Nurse Practitioner Family
DX: I70.213 Atherosclerosis of native arteries of extremities with intermittent claudication, bilateral legs (principal)

== ENCOUNTER 2018-09-21 11:30 | Outpatient (CLI) | payer BC ==
[~2018-09-21] VITALS: Ht 193 cm; Wt 81.6 kg
[~2018-09-21 11:30] MED LIST changes: +CYCL10TA9 PO; +PANT40TA2 PO; +RIVA10T PO; -RIVA10TA PO
[2018-09-22] MEDS ORDERED: RANI150T90 PO (11:38)
== END 2018-09-21 12:12 | disposition home or self-care (01) ==
LOC: PREOP 11:30
PROVIDERS: ATTEND Surgery
DX: Z01.818 Encounter for other preprocedural examination (principal)

== ENCOUNTER → 2018-10-13 | Outpatient (CLI) | payer BC ==
[~2018-10-13] MED LIST changes: +RANI150T90 PO
--- NOTE | 2018-10-13 13:33 | Diagnostic Imaging Report ---
PROCEDURE: US right lower extremity venous. TECHNIQUE: Multiple real-time grayscale images were obtained over the right lower extremity in various projections. Additional spectral analysis and color Doppler duplex images were also obtained. INDICATION: Foot pain and swelling. FINDINGS: The right femoropopliteal deep venous system is widely patent. No deep or superficial thrombi. Color flow, compressibility, and waveforms are normal. Mass with thin cortex predominantly occupied by a fatty hilus in the groin measures 2.8 x 1.8 cm is most compatible with a lymph node, likely reactive. IMPRESSION: Negative for venous thrombus. Fatty likely reactive lymph node in the groin noted. Dictated by: Dictated on workstation # [id number]
== END ==
LOC: RAD 10:42
PROVIDERS: ATTEND Nurse Practitioner Family
DX: M79.89 Other specified soft tissue disorders (principal)

== ENCOUNTER → 2018-10-14 | Outpatient (CLI) | payer BC | LOC: WOUNDCARE 07:59 | PROVIDERS: ATTEND Nurse Practitioner | DX: I87.333 Chronic venous hypertension (idiopathic) with ulcer and inflammation of bilateral lower extremity (principal); L97.512 Non-pressure chronic ulcer of other part of right foot with fat layer exposed; L97.322 Non-pressure chronic ulcer of left ankle with fat layer exposed; I96 Gangrene, not elsewhere classified | CPT/HCPCS: 11042; 87070; 87075; 87077; 87186; 87205 ==

== ENCOUNTER 2018-11-10 09:55 | Inpatient (IN) | payer BC ==
[~2018-11-10] VITALS: Ht 187.9 cm; Wt 86.7 kg
[2018-11-10] MEDS ORDERED: fentaNYL INJECTION 100 MCG/2 ML AMP IVP STA ×2 (10:59→13:07)
[2018-11-10] MEDS ORDERED: KETOROLAC 30 MG/ML VIAL IVP STA (10:59)
--- NOTE | 2018-11-10 11:08 | ED Integumentary General ---
General Chief Complaint: Skin/Wound Problems Stated Complaint: L ANKLE WOUND Nursing Triage Note: Pt c/o wound to left medial ankle which started 3 months ago after a "misquito bite". Pt was evaluated in drs office yesterday and given IM antibiotics and told to come to ED for IV antibiotics. Source: patient Exam Limitations: no limitations (JUS RAMIREZ STUDENT) History of Present Illness Date Seen by Provider: Nov 10, 2018 Time Seen by Provider: 10:50 Initial Comments The patient is a wd/wn 58 y/o male who is here with a chief complaint of leg pain. He currently rates the pain at 8/10. He states that he has had an ongoing infection in his left lower medial leg. The nurse practitioner at Dr. Cadena's office has been managing the infection with continued antibiotic treatment. He was referred to wound care specialists and he reports they incised and drained the wound and made no other changes. The patient was seen in Dr. Cadena's office yesterday and was instructed to go to the ER today if his pain was not improving. He also is complaining of itching in his hands, legs, buttocks that started a few months ago. He denies any new rashes, abdominal pain, nausea, vomiting, diarrhea, or recent illnesses. Timing/Duration: changing over time Severity: mild Location: extremities Possible Cause: no cause identified Associated Symptoms: change in skin texture (JUS RAMIREZ MED STUDENT) Initial Comments Here with report of left lower extremity pain in the area of the cellulitis and wound to the medial aspect. The wound apparently is better but the increasing erythema around the wound is worse. Priests doxycycline and that was changed to clindamycin yesterday. Apparently he has been having itching of his hands, legs and buttocks. No rash noted. States the redness is about the same for the pain is getting much worse. Timing/Duration: changing over time Severity: mild, moderate Location: extremities (left lower extremity) Possible Cause: no cause identified Associated Symptoms: change in skin texture, other (pain) (JOSE RAMAN MD) Allergies and Home Medications Allergies Coded Allergies: Penicillins (Unverified Allergy, Mild, 09/21/18) cefaclor (Unverified Allergy, Mild, 09/21/18) Home Medications Clopidogrel Bisulfate 75 Mg Tablet, 75 MG PO DAILY, (Reported) Cyclobenzaprine HCl 10 Mg Tablet, 10 MG PO DAILY, (Reported) Pantoprazole Sodium 40 Mg Tablet.dr, 40 MG PO DAILY, (Reported) Ranitidine HCl 150 Mg Tablet, 150 MG PO BID Prescribed by: EVE PEACOCK on 09/22/18 9135 Patient Home Medication List Home Medication List Reviewed: Yes (JOSE RAMAN MD) Review of Systems Review of Systems Constitutional: No fever, No malaise EENTM: No blurred vision, No double vision Respiratory: No cough, No short of breath Cardiovascular: No chest pain, No palpitations Gastrointestinal: No abdominal pain, No diarrhea, No nausea, No vomiting Skin: change in color, lesions, pruritus (JUS RAMIREZ STUDENT) Constitutional: see HPI EENTM: no symptoms reported Gastrointestinal: no symptoms reported Musculoskeletal: No joint pain; muscle pain Skin: change in color, lesions, pruritus; No rash (JOSE RAMAN MD) All Other Systems Reviewed Negative Unless Noted: Yes (JOSE RAMAN MD) Past Vpegfyd-Ujccus-Crgfee Hx Past Med/Social Hx: Reviewed Nursing Past Med/Soc Hx (JOSE RAMAN MD) Patient Social History Alcohol Use: Denies Use Recreational Drug Use: No Type Used: Cigarettes Former Smoker, Quit: Dec 15, 2016 2nd Hand Smoke Exposure: No Recent Foreign Travel: No Contact w/Someone Who Travel: No Recent Infectious Disease Expo: No Recent Hopitalizations: No (JUS RAMIREZ) Seasonal Allergies Seasonal Allergies: No (JUS RAMIREZ) Past Medical History Surgeries: Yes (R FINGER AMPUTATION, ING HERNIA X2, TOE TENDON, AORTIC STENT, LEG BYPASS) Orthopedic, Vascular Surgery Respiratory: No Currently Using CPAP: No Currently Using BIPAP: No Cardiac: Yes (HX OF AORTIC STENT, multiple stents to lorin. lower extremities) Deep Vein Thrombosis Neurological: No Sexually Transmitted Disease: No HIV/AIDS: No Genitourinary: No Gastrointestinal: Yes (DYSPHAGIA) Chronic Constipation Musculoskeletal: No Endocrine: No HEENT: Yes (GLASSES) Loss of Vision: Denies Hearing Impairment: Denies Cancer: No Psychosocial: No Sleep Difficulties, Suicide Attempts Integumentary: No Blood Disorders: No Adverse Reaction/Blood Tranf: No (N/A) (JUS RAMIREZ STUDENT) Family Medical History Reviewed Nursing Family Hx (JOSE RAMAN MD) No Pertinent Family Hx (JOSE RAMAN MD) Physical Exam Vital Signs Vital Signs - First Documented 11/10/18 10:28 Temp 36.8 Pulse 87 Resp 13 B/P (MAP) 122/72 (89) Pulse Ox 97 (JOSE RAMAN MD) Vital Signs Capillary Refill : Less Than 3 Seconds (JUS RAMIREZ STUDENT) General Appearance: WD/WN, no apparent distress HEENT: PERRL/EOMI; No photophobia Cardiovascular: No normal peripheral pulses; regular rate, rhythm, no edema, no murmur Respiratory: chest non-tender, lungs clear, normal breath sounds Back: normal inspection, no CVA tenderness Extremities: No non-tender, No normal inspection; inflammation Neurologic/Psychiatric: alert, normal mood/affect, oriented x 3 Skin: normal color, warm/dry Skin Problem Location: lower extremities Skin Problem Character: abscess, erythema, tenderness, warm (JUS RAMIREZ STUDENT) General Appearance: WD/WN, no apparent distress Neck: full range of motion, supple Cardiovascular: regular rate, rhythm, no edema Respiratory: lungs clear, normal breath sounds Gastrointestinal: non tender, soft Extremities: other (healing ulcerative wound just above the left medial malleolus. Marked 8 x 15 cm area of erythema surrounding the wound) Neurologic/Psychiatric: alert, oriented x 3 Skin: warm/dry, other (wound as described above) (JOSE RAMAN MD) Progress/Results/Core Measures Results/Orders Lab Results Laboratory Tests Test 11/10/18 11:27 Range/Units White Blood Count 5.0 4.3-11.0 10^3/uL Red Blood Count 4.69 4.35-5.85 10^6/uL Hemoglobin 14.1 13.3-17.7 G/DL Hematocrit 41 40-54 % Mean Corpuscular Volume 87 80-99 FL Mean Corpuscular Hemoglobin 30 25-34 PG Mean Corpuscular Hemoglobin Concent 34 32-36 G/DL Red Cell Distribution Width 13.1 10.0-14.5 % Platelet Count 169 130-400 10^3/uL Mean Platelet Volume 11.2 H 7.4-10.4 FL Neutrophils (%) (Auto) 54 42-75 % Lymphocytes (%) (Auto) 29 12-44 % Monocytes (%) (Auto) 9 0-12 % Eosinophils (%) (Auto) 8 0-10 % Basophils (%) (Auto) 1 0-10 % Neutrophils # (Auto) 2.7 1.8-7.8 X 10^3 Lymphocytes # (Auto) 1.4 1.0-4.0 X 10^3 Monocytes # (Auto) 0.5 0.0-1.0 X 10^3 Eosinophils # (Auto) 0.4 H 0.0-0.3 10^3/uL Basophils # (Auto) 0.0 0.0-0.1 10^3/uL Sodium Level 140 135-145 MMOL/L Potassium Level 3.8 3.6-5.0 MMOL/L Chloride Level 108 H 98-107 MMOL/L Carbon Dioxide Level 23 21-32 MMOL/L Anion Gap 9 5-14 MMOL/L Blood Urea Nitrogen 10 7-18 MG/DL Creatinine 0.89 0.60-1.30 MG/DL Estimat Glomerular Filtration Rate > 60 BUN/Creatinine Ratio 11 Glucose Level 107 H 70-105 MG/DL Lactic Acid Level 2.09 *H 0.50-2.00 MMOL/L Calcium Level 9.2 8.5-10.1 MG/DL Corrected Calcium 8.9 8.5-10.1 MG/DL Total Bilirubin 0.4 0.1-1.0 MG/DL Aspartate Amino Transf (AST/SGOT) 28 5-34 U/L Alanine Aminotransferase (ALT/SGPT) 37 0-55 U/L Alkaline Phosphatase 69 40-136 U/L C-Reactive Protein High Sensitivity 0.53 H 0.00-0.50 MG/DL Total Protein 7.6 6.4-8.2 GM/DL Albumin 4.4 3.2-4.5 GM/DL (JOSE RAMAN MD) My Orders Orders - JOSE RAMAN MD Ed Iv/Invasive Line Start (11/10/18 10:59) Cbc With Automated Diff (11/10/18 10:59) Comprehensive Metabolic Panel (11/10/18 10:59) Hs C Reactive Protein (11/10/18 10:59) Fentanyl Injection (Sublimaze Injection (11/10/18 10:59) Ketorolac Injection (Toradol Injection) (11/10/18 10:59) Lactic Acid Analyzer (11/10/18 11:02) Blood Culture (11/10/18 11:02) Clindamycin 900 Mg/50 Ml Ivpb (Cleocin P (11/10/18 12:30) Levofloxacin 750 Mg/150 Ml Iv (Levaquin (11/10/18 12:35) Fentanyl Injection (Sublimaze Injection (11/10/18 13:07) (JOSE RAMAN MD) Vital Signs/I&O 11/10/18 10:28 Temp 36.8 Pulse 87 Resp 13 B/P (MAP) 122/72 (89) Pulse Ox 97 (JOSE RAMAN MD) Blood Pressure Mean: 89 Progress Progress Note : Time: 11:10 Progress Note The patient is resting comfortably in the exam room. He will be evaluated with CBC w/ culture, CMP, CRP, and lactic acid for possible sepsis. Fentanyl and torodol will be administered for pain control. (JUS RAMIREZ MED STUDENT) Progress Note : Progress Note I have seen and evaluated the patient and agree with above except as indicated. I have directed the plan of care. IV, labs, blood cultures and lactic acid ordered. Fentanyl 50 g IV and Toradol 30 mg IV ordered. Monitor patient. 1225: Labs are reviewed and lactic acid is slightly elevated. White count is not elevated and CRP is only minimally elevated. Does meet some standards for sepsis although it is not severe sepsis or septic shock. Patient does not require high- volume fluid resuscitation. I did review previous cultures. Patient had both pseudomonas and MRSA. Sensitive to clindamycin and Levaquin. We will initiate Levaquin although this is not my first choice. Patient does have penicillin and cephalosporin allergies. Admit, inpatient status. Patient and family agree with plan. Repeat dose of fentanyl 75 g IV for continued pain. Case was discussed with Dr. Shrestha who agrees with plan. Levaquin chosen versus meropenem as this will likely be the outpatient antibiotic and we are limited on choice is due to his allergies. (JOSE RAMAN MD) Departure Communication (Admissions) Time/Spoke to Admitting Phy: 12:25 (JOSE RAMAN MD) Impression Primary Impression: Left leg cellulitis Disposition: ADMITTED INPATIENT Condition: Stable Admissions Decision to Admit Reason: Admit from ER (General) Decision to Admit/Date: Nov 10, 2018 Time/Decision to Admit Time: 12:25 (JOSE RAMAN MD) Departure-Patient Inst. Referrals: SYLVIA SHRESTHA DO (PCP/Family) Primary Care Physician JUS RAMIREZ MED STUDENT Nov 10, 2018 11:08 JOSE RAMAN MD Nov 10, 2018 13:37
[2018-11-10 12:02] LABS: BASOPHILS % (AUTO) 1 % (0-10); EOSINOPHILS # (AUTO) 0.4 10^3/uL (0.0-0.3); EOSINOPHILS % (AUTO) 8 % (0-10); HEMATOCRIT 41 % (40-54); HEMOGLOBIN 14.1 G/DL (13.3-17.7); LYMPHOCYTES # (AUTO) 1.4 X 10^3 (1.0-4.0); LYMPHOCYTES % (AUTO) 29 % (12-44); MEAN CORPUSCULAR HEMOGLOBIN 30 PG (25-34); MEAN CORPUSCULAR HGB CONC 34 G/DL (32-36); MEAN CORPUSCULAR VOLUME 87 FL (80-99); MEAN PLATELET VOLUME 11.2 FL (7.4-10.4); MONOCYTES # (AUTO) 0.5 X 10^3 (0.0-1.0); MONOCYTES % (AUTO) 9 % (0-12); NEUTROPHILS # (AUTO) 2.7 X 10^3 (1.8-7.8); NEUTROPHILS % (AUTO) 54 % (42-75); PLATELET COUNT 169 10^3/uL (130-400); RED CELL DISTRIBUTION WIDTH 13.1 % (10.0-14.5)
[2018-11-10 12:20] LABS: ALANINE AMINOTRANSFERASE 37 U/L (0-55); ALBUMIN 4.4 GM/DL (3.2-4.5); ALKALINE PHOSPHATASE 69 U/L (40-136); BILIRUBIN,TOTAL 0.4 MG/DL (0.1-1.0); BUN/CREATININE RATIO 11; CALCIUM 9.2 MG/DL (8.5-10.1); CARBON DIOXIDE 23 MMOL/L (21-32); CHLORIDE 108 MMOL/L (98-107); CREATININE SERUM 0.89 MG/DL (0.60-1.30); GFR ESTIMATED > 60; GLUCOSE 107 MG/DL (70-105); POTASSIUM 3.8 MMOL/L (3.6-5.0); SODIUM 140 MMOL/L (135-145); TOTAL PROTEIN 7.6 GM/DL (6.4-8.2)
[2018-11-10] MEDS ORDERED: CLINDAMYCIN 900 MG/50 ML IVPB 50 ML IV ONE (12:30)
[2018-11-10] MEDS ORDERED: LEVOFLOXACIN 750 MG/150 ML IV 150 ML IV STA (12:35)
--- NOTE | 2018-11-10 13:34 | NUR ---
Pt experiencing redness and itching over the left wrist IV site with vancomycin infusing. Pt denies any other pain or problem. This RN started a larger 18ga IV in Rt forearm and infusing vancomycin at the new IV site at this time. This RN is assessing for further reaction.
[2018-11-10] MEDS ORDERED: diphenhydrAMINE 50 MG/ML INJ (BENADRYL) IV ONE (13:45)
--- NOTE | 2018-11-10 13:45 | NUR ---
1345- This RN attempted report to Aminta LEIGH. She instructed she is in pt room and would call back.
--- NOTE | 2018-11-10 14:15 | NUR ---
WILLIAM AVILA admitted to room 417-1, with an admitting diagnosis of CELLULITIS LLE, on 11/10/18 from ED via , accompanied by STAFF. WILLIAM AVILA introduced to surroundings, call light, bed controls, phone, TV, temperature control, lights, meal times, smoking policy, visitor policy, side rail policy, bathrooms and showers. WILLIAM AVILA verbalizes understanding that [facility] is not responsible for the loss or damage to any personal effects or valuables that are kept in the patients posession during their hospitalization. The following Patient Care Plans were discussed with the PT: Discharge Planning, PAIN, AND CELLULITIS. WILLIAM AVILA verbalizes understanding of Interdisciplinary Patient Education. Patient and/or family were informed about the Rapid Response Team and its purpose.
[2018-11-10 14:27] VITALS: BP 134/72
[2018-11-10] MEDS ORDERED: CLINDAMYCIN 900 MG/50 ML IVPB 50 ML IV SCH (14:30)
[2018-11-10] MEDS ORDERED: CATHETER FLUSH 10 ML SYR IV PRN (14:45)
[2018-11-10] MEDS ORDERED: HYDROcodone/APAP 5 MG/325 MG (LORTAB) TAB PO PRN (14:45)
[2018-11-10] MEDS ORDERED: CLOP75TA28 PO (14:55)
[2018-11-10] MEDS ORDERED: MULT1TAB69 PO (14:55)
[2018-11-10] MEDS ORDERED: RANI150T11 PO (14:55)
[2018-11-10] MEDS ORDERED: CLIN300C11 PO (14:55)
[2018-11-10] MEDS ORDERED: FLT22013 INH (14:55)
[2018-11-10] MEDS ORDERED: OMEP40CA36 PO (14:55)
--- NOTE | 2018-11-10 14:59 | NUR ---
SPOKE WITH THE PATIENT ABOUT HIS MEDICATIONS. HE HAD PICTURES ON HIS PHONE OF HIS MEDICATION BOTTLES. I COMPARED IT WITH THE EXT MED HX. IN ADDITION TO WHAT IS SHOWN ON THE EXT MED HX [facility] VERIFIED THEY FILLED OMEPRAZOLE 40MG HS #30 09-07-18. HE IS PAST DUE FOR REFILL ON SEVERAL OF HIS MEDICATIONS. I NOTED THE PAST DUE FILL DATES ON THE MED REC. HE STATES HE TAKES A [employer] DAILY OTC.
[2018-11-10] MEDS: NS IV 1000 ML 1,000 ML IV SCH ×2 (15:29→21:38)
[2018-11-10 16:45] VITALS: BP 118/57
[2018-11-10] MEDS ORDERED: KETOROLAC 15 MG/ML VIAL IV SCH (18:00)
--- NOTE | 2018-11-10 19:37 | History & Physical ---
History of Present Illness History of Present Illness Reason for visit/HPI This is a 58 year old male with a 3month history of a left lower extremity wound. He was treated and seen at wound care but did not follow up or continue care with them. He was seen in my office yesterday with some redness and drainage to the wound and was given rocephin IM and started on oral clindamycin. However, he called my office today stating that he was having increased pain in his leg and was told to go to the emergency room for evaluation. He was found to have cellulitis to his left lower leg wound and it was decided he should be admitted for IV antibiotics. Date of Admission Nov 10, 2018 at 13:24 Date Seen by a Provider: Nov 10, 2018 Time Seen by a Provider: 19:34 I consulted on this patient on 11/10/18 19:34 Attending Physician Janneth Maria DO Admitting Physician Janneth Maria DO Consult Allergies and Home Medications Allergies Coded Allergies: Penicillins (Verified Allergy, Mild, 11/10/18) cefaclor (Verified Allergy, Mild, 11/10/18) Home Medications Clindamycin HCl 300 Mg Capsule, 300 MG PO TID, (Reported) 10 DAY SUPPLY FILLED 11-08-18 Clopidogrel Bisulfate 75 Mg Tablet, 75 MG PO DAILY, (Reported) LAST FILLED #30 09-07-18 Cyclobenzaprine HCl 10 Mg Tablet, 10 MG PO HS PRN for MUSCLE SPASMS, (Reported) Fluticasone Propionate 1 Ea Aero, 4 PUFF INH BID PRN for SHORTNESS OF BREATH, (Reported) Multivitamin 1 Each Tablet, 1 TAB PO DAILY, (Reported) Omeprazole 40 Mg Capsule.dr, 40 MG PO HS, (Reported) LAST FILLED #30 09-07-18 Ranitidine HCl 150 Mg Tablet, 150 MG PO BID, (Reported) LAST FILLED #60 09-23-18 Patient Home Medication List Home Medication List Reviewed: Yes Past Sazyjfx-Vbuwzq-Vwpghp Hx Past Med/Social Hx: Reviewed Nursing Past Med/Soc Hx Patient Social History Marrital Status: Alcohol Use: Denies Use Recreational Drug Use: No Smoking Status: Former Smoker Former Smoker, Quit: Dec 15, 2016 Type Used: Cigarettes 2nd Hand Smoke Exposure: No Physical Abuse Screen: No Sexual Abuse: No Recent Foreign Travel: No Contact w/other who traveled: No Recent Hopitalizations: No Recent Infectious Disease Expo: No Seasonal Allergies Seasonal Allergies: No Past Medical History Surgeries: Orthopedic, Vascular Surgery Currently Using CPAP: No Currently Using BIPAP: No Cardiac: Deep Vein Thrombosis Sexually Transmitted Disease: No HIV/AIDS: No Gastrointestinal: Chronic Constipation Musculoskeletal: Amputee Loss of Vision: Denies Hearing Impairment: Denies Psychosocial: Sleep Difficulties, Suicide Attempts History of Blood Disorders: No Adverse Reaction to Blood [place]: No (N/A) Family History Reviewed Nursing Family Hx No Pertinent Family Hx Review of Systems Constitutional: weakness EENTM: No see HPI, No no symptoms reported, No ear discharge, No hearing loss, No ear pain, No blurred vision, No double vision, No eye pain, No tearing, No vision loss, No dental problems, No hoarseness, No mouth pain, No mouth swelling, No epistaxis, No nose congestion, No nose pain, No throat pain, No throat swelling, No other Respiratory: No no symptoms reported, No see HPI, No cough, No dyspnea on exertion, No hemoptysis, No orthopnea, No phlegm, No short of breath, No stridor, No wheezing, No other Cardiovascular: No no symptoms reported, No see HPI, No chest pain, No edema, No Hx of Intervention, No palpitations, No syncope, No vascular heart diseas, No other Gastrointestinal: No RUQ, No LUQ, No RLQ, No LLQ, No no symptoms reported, No see HPI, No abdominal pain, No constipation, No diarrhea, No dysphagia, No hematemesis, No heartburn, No jaundice, No loss of appetite, No melena, No nausea, No vomiting, No other Genitourinary: No no symptoms reported, No see HPI, No decreased output, No discharge, No dysuria, No frequency, No hematuria, No hesitancy, No incontinence, No nocturia, No pain, No other Musculoskeletal: joint swelling Skin: lesions Psychiatric/Neurological: Denies No Symptoms Reported, Denies See HPI, Denies Anxiety, Denies Depressed, Denies Emotional Problems, Denies Headache, Denies Numbness, Denies Paresthesia, Denies Pre-Existing Deficit, Denies Seizure, Denies Tingling, Denies Tremors, Denies Weakness, Denies Other Physical Exam Vital Signs Vital Signs - First Documented 11/10/18 11/10/18 10:28 14:27 Temp 36.8 Pulse 87 Resp 13 B/P (MAP) 122/72 (89) Pulse Ox 97 O2 Delivery Room Air Capillary Refill : Less Than 3 SecondsLess Than 3 Seconds Height, Weight, BMI Height: 6'4.00" Weight: 180lbs. 0.0oz. 81.739977sy; 24.10 BMI Method:Stated General Appearance: No Apparent Distress HEENT: Normal ENT Inspection Neck: Supple Respiratory: Lungs Clear Cardiovascular: Regular Rate, Rhythm Gastrointestinal: Normal Bowel Sounds, Non Tender, Soft Rectal: Deferred Back: No CVA Tenderness Extremity: Non Tender, No Calf Tenderness, No Pedal Edema Neurologic/Psychiatric: Alert, Oriented x3 Skin: Warm/Dry, Other (left medial ankle area with sore and erythema--has not spread over line marked yesterday) Comments Laboratory Tests 11/10/18 11:27: White Blood Count 5.0, Red Blood Count 4.69, Hemoglobin 14.1, Hematocrit 41, Mean Corpuscular Volume 87, Mean Corpuscular Hemoglobin 30, Mean Corpuscular Hemoglobin Concent 34, Red Cell Distribution Width 13.1, Platelet Count 169, Mean Platelet Volume 11.2H, Neutrophils (%) (Auto) 54, Lymphocytes (%) (Auto) 29, Monocytes (%) (Auto) 9, Eosinophils (%) (Auto) 8, Basophils (%) (Auto) 1, Neutrophils # (Auto) 2.7, Lymphocytes # (Auto) 1.4, Monocytes # (Auto) 0.5, Eosinophils # (Auto) 0.4H, Basophils # (Auto) 0.0, Sodium Level 140, Potassium Level 3.8, Chloride Level 108H, Carbon Dioxide Level 23, Anion Gap 9, Blood Urea Nitrogen 10, Creatinine 0.89, Estimat Glomerular Filtration Rate > 60, BUN/Creatinine Ratio 11, Glucose Level 107H, Lactic Acid Level 2.09*H, Calcium Level 9.2, Corrected Calcium 8.9, Total Bilirubin 0.4, Aspartate Amino Transf (AST/SGOT) 28, Alanine Aminotransferase (ALT/SGPT) 37, Alkaline Phosphatase 69, C-Reactive Protein High Sensitivity 0.53H, Total Protein 7.6, Albumin 4.4 11/10/18 13:43: Lactic Acid Level 1.39 Assessment/Plan Assessment and Plan 1. Acute Left LE Cellulitis--admit for IV clindamycin 2. History of PAD--resume plavix Admission Diagnosis Admission Status: Inpatient Order (span 2 midnights) Reason for Inpatient Admission: Failed outpatient abx so will need at least 48hrs IV abx Clinical Quality Measures DVT/VTE Risk/Contraindication: Risk Factor Score Per Nursin RFS Level Per Nursing on Admit: 3=High JANNETH MARIA DO Nov 10, 2018 19:37
[2018-11-10] MEDS ORDERED: methylPREDNISolone 125 MG (Solu-MEDROL) VIAL IVP NR (20:00)
[2018-11-10] MEDS ORDERED: diphenhydrAMINE 25 MG TAB (BENADRYL) PO PRN (20:00)
[2018-11-10] MEDS ORDERED: ONDANSETRON 4 MG/2 ML (SDV) Z0FRAN IVP PRN (20:00)
[2018-11-10] MEDS ORDERED: FAMOTIDINE 20MG/2ML IV (PEPCID) IVP NR (20:00)
[2018-11-10] MEDS ORDERED: diphenhydrAMINE 25 MG TAB (BENADRYL) PO NR (20:00)
[2018-11-10 20:35] VITALS: BP 104/52
[2018-11-10] MEDS: HYDROcodone/APAP 5 MG/325 MG (LORTAB) TAB PO PRN (21:33)
[2018-11-10] MEDS: CLINDAMYCIN 900 MG/50 ML IVPB 50 ML IV SCH (21:44)
[2018-11-10] MEDS: KETOROLAC 15 MG/ML VIAL IV SCH (23:45)
[2018-11-11] VITALS: BP 115/57
[2018-11-11 04:30] VITALS: BP 120/58
[2018-11-11] MEDS: HYDROcodone/APAP 5 MG/325 MG (LORTAB) TAB PO PRN ×4 (04:50→20:30)
[2018-11-11 05:00] LABS: BASOPHILS % (AUTO) 0 % (0-10); EOSINOPHILS % (AUTO) 0 % (0-10); HEMATOCRIT 39 % (40-54); HEMOGLOBIN 13.5 G/DL (13.3-17.7); LYMPHOCYTES # (AUTO) 0.6 X 10^3 (1.0-4.0); LYMPHOCYTES % (AUTO) 8 % (12-44); MEAN CORPUSCULAR HEMOGLOBIN 30 PG (25-34); MEAN CORPUSCULAR HGB CONC 34 G/DL (32-36); MEAN CORPUSCULAR VOLUME 86 FL (80-99); MEAN PLATELET VOLUME 10.6 FL (7.4-10.4); MONOCYTES # (AUTO) 0.1 X 10^3 (0.0-1.0); MONOCYTES % (AUTO) 1 % (0-12); NEUTROPHILS # (AUTO) 6.3 X 10^3 (1.8-7.8); NEUTROPHILS % (AUTO) 91 % (42-75); PLATELET COUNT 156 10^3/uL (130-400); RED CELL DISTRIBUTION WIDTH 13.1 % (10.0-14.5); WHITE BLOOD COUNT 6.9 10^3/uL (4.3-11.0)
[2018-11-11 05:20] LABS: BAND NEUTROPHILS 1 %; BASOPHILS % (MANUAL) 0 %; EOSINOPHILS % (MANUAL) 0 %; LYMPHOCYTES % (MANUAL) 4 %; MONOCYTES % (MANUAL) 1 %; NEUTROPHILS % (MANUAL) 92 %; RBC MORPH NORMAL; REACTIVE LYMPHOCYTES 2 %
[2018-11-11 05:23] LABS: ALANINE AMINOTRANSFERASE 38 U/L (0-55); ALBUMIN 4.1 GM/DL (3.2-4.5); ALKALINE PHOSPHATASE 75 U/L (40-136); BILIRUBIN,TOTAL 0.4 MG/DL (0.1-1.0); BUN/CREATININE RATIO 12; CALCIUM 9.1 MG/DL (8.5-10.1); CARBON DIOXIDE 21 MMOL/L (21-32); CHLORIDE 107 MMOL/L (98-107); CREATININE SERUM 1.13 MG/DL (0.60-1.30); GFR ESTIMATED > 60; GLUCOSE 222 MG/DL (70-105); POTASSIUM 4.3 MMOL/L (3.6-5.0); SODIUM 137 MMOL/L (135-145); TOTAL PROTEIN 7.1 GM/DL (6.4-8.2)
[2018-11-11] MEDS: PANTOPRAZOLE 40 MG (PROTONIX) TAB PO SCH (06:15)
[2018-11-11] MEDS: KETOROLAC 15 MG/ML VIAL IV SCH ×4 (06:15→23:06)
[2018-11-11] MEDS: NS IV 1000 ML 1,000 ML IV SCH (06:19)
[2018-11-11] MEDS: CLINDAMYCIN 900 MG/50 ML IVPB 50 ML IV SCH ×3 (06:22→23:05)
[2018-11-11 08:00] VITALS: BP 152/77
[2018-11-11] MEDS: CLOPIDOGREL 75 MG (PLAVIX) TABLET PO SCH (09:12)
[2018-11-11] MEDS: LEVOFLOXACIN 750 MG/D5W 150 ML PRE-MIX IV SCH (09:12)
--- NOTE | 2018-11-11 12:16 | Progress Note ---
Subjective Date Seen by a Provider: Nov 11, 2018 Time Seen by a Provider: 12:12 Subjective/Events-last exam Fwup left ankle cellulitis, PAD. Still c/o significant pain in left ankle. Itching resolved. Focused Exam Lactate Level 11/10/18 11:27: Lactic Acid Level 2.09*H 11/10/18 13:43: Lactic Acid Level 1.39 Objective Exam Vital Signs Date Time Temp Pulse Resp B/P (MAP) Pulse Ox O2 Delivery O2 Flow Rate FiO2 11/11/18 08:00 96 Room Air 11/11/18 08:00 36.2 98 20 152/77 (102) 96 Room Air 11/11/18 04:30 36.7 80 20 120/58 (78) 96 Room Air 11/11/18 00:00 36.1 79 18 115/57 (76) 96 Room Air 11/10/18 20:35 36.4 85 20 104/52 (69) 99 Room Air 11/10/18 20:00 Room Air 11/10/18 16:45 36.2 87 20 118/57 (77) 97 Room Air 11/10/18 16:20 Room Air 11/10/18 14:28 81 14 122/75 97 11/10/18 14:27 36.2 82 20 134/72 98 Room Air I & O 11/11/18 07:00 Intake Total 1500 ml Output Total 1200 ml Balance 300 ml Capillary Refill : Less Than 3 SecondsLess Than 3 Seconds General Appearance: No Apparent Distress Extremity: No Pedal Edema Neurologic/Psychiatric: Alert Skin: Erythema (left medial ankle with ongoing erythema and scaling with central open cracked wound) Results Lab Laboratory Tests 11/10/18 13:43: Lactic Acid Level 1.39 11/11/18 04:45: White Blood Count 6.9, Red Blood Count 4.55, Hemoglobin 13.5, Hematocrit 39L, Mean Corpuscular Volume 86, Mean Corpuscular Hemoglobin 30, Mean Corpuscular Hemoglobin Concent 34, Red Cell Distribution Width 13.1, Platelet Count 156, Mean Platelet Volume 10.6H, Neutrophils (%) (Auto) 91H, Lymphocytes (%) (Auto) 8L, Monocytes (%) (Auto) 1, Eosinophils (%) (Auto) 0, Basophils (%) (Auto) 0, Neutrophils # (Auto) 6.3, Lymphocytes # (Auto) 0.6L, Monocytes # (Auto) 0.1, Eosinophils # (Auto) 0.0, Basophils # (Auto) 0.0, Neutrophils % (Manual) 92, Lymphocytes % (Manual) 4, Monocytes % (Manual) 1, Eosinophils % (Manual) 0, Basophils % (Manual) 0, Band Neutrophils 1, Reactive Lymphocytes 2, Blood Morphology Comment NORMAL, Sodium Level 137, Potassium Level 4.3, Chloride Level 107, Carbon Dioxide Level 21, Anion Gap 9, Blood Urea Nitrogen 13, Creatinine 1.13, Estimat Glomerular Filtration Rate > 60, BUN/Creatinine Ratio 12, Glucose Level 222H, Calcium Level 9.1, Corrected Calcium 9.0, Total Bilirubin 0.4, Aspartate Amino Transf (AST/SGOT) 29, Alanine Aminotransferase (ALT/SGPT) 38, Alkaline Phosphatase 75, Total Protein 7.1, Albumin 4.1 Assessment/Plan Assessment/Plan Assess & Plan/Chief Complaint 1. Left Ankle Cellulitis--continue clindamycin and levaquin, Check MRI of left ankle to rule out osteomyelitis 2. PAD--back on Plavix Clinical Quality Measures Admission Status Admission Dx 1. Acute Left LE Cellulitis--admit for IV clindamycin 2. History of PAD--resume plavix DVT/VTE Risk/Contraindication: Risk Factor Score Per Nursin RFS Level Per Nursing on Admit: 3=High SYLVIA MARIA DO Nov 11, 2018 12:16
[2018-11-11 12:56] VITALS: BP 116/65
--- NOTE | 2018-11-11 15:43 | Diagnostic Imaging Report ---
PROCEDURE: MRI left joint lower extremity without contrast. TECHNIQUE: Multiplanar, multisequence non contrast-enhanced MRI of the left lower extremity was accomplished. INDICATION: Insect bite directly medial to the left ankle 3 months ago. Continued pain. Irritated the skin with scabbing. Interval development of an ulceration which was lanced by wound care. Medial skin redness. EXAMINATION: MRI of the left lower extremity without contrast 11/11/2018. FINDINGS: There is diffuse abnormal signal intensity within the medial soft tissues of the foot and ankle. This is likely due to cellulitis given the history. There is no measurable or drainable fluid collection appreciated. Mild edema is seen in the lateral soft tissues of the ankle. There is a small amount of fluid within the posterior subtalar joint and in the posterior tibiotalar joint space. The osseous structures demonstrate diffuse abnormal signal intensity within the visualized aspects of the medial most cuneiform with multiple subchondral cysts and mild surrounding edema. These findings are consistent with degenerative disease. Remaining visualized osseous structures are unremarkable. Talar dome is unremarkable. Ankle mortise is intact. The deltoid ligament is intact. The anterior talofibular ligament and posterior talofibular ligament are intact. The anterior and posterior inferior tibiofibular ligaments are intact. The peroneus longus tendon demonstrates a focal longitudinal split tear submalleolar in location. No complete discontinuity is seen. More distally, the tendon appears to be intact. Peroneus brevis tendon is intact. The extensor tendons in the anterior ankle and foot are intact. The posterior tibial tendon appears intact. The remaining extensor and flexor tendons are within normal limits. IMPRESSION: 1. Diffuse soft tissue abnormal signal intensity especially medially likely due to the known history of soft tissue abnormality perhaps due to cellulitis and/or edema. No measurable or drainable fluid collection seen at this time. 2. Longitudinal split tear of the peroneus longus tendon with remaining tendons intact. 3. Visualized ligaments intact. 4. Findings within the visualized tarsals most consistent with degenerative change. Dictated by: Dictated on workstation # [id number]
[2018-11-11 16:00] VITALS: BP 124/62
--- NOTE | 2018-11-11 16:13 | NUR ---
THIS RN TRIED TO CALL DR. ANDERSON PHONE AT THIS TIME, TO OBTAIN ORDERS FOR LOVENOX, NO ANSWER AT THIS TIME. THIS RN WILL CONT. TO TRY TO REACH HER VIA TELEPHONE TO RECEIVE ORDERS FOR DVT PROPHYLAXIS.
[2018-11-11] MEDS ORDERED: ENOXAPARIN 40 MG/0.4 ML (LOVENOX) SYR SC ONE (16:30)
[2018-11-11] MEDS ORDERED: ENOXAPARIN 40 MG/0.4 ML (LOVENOX) SYR SC SCH ×2 (16:30)
[2018-11-11 19:42] VITALS: BP 122/60
[2018-11-12 00:15] VITALS: BP 120/70
[2018-11-12] MEDS: HYDROcodone/APAP 5 MG/325 MG (LORTAB) TAB PO PRN ×4 (01:39→21:11)
[2018-11-12 04:25] VITALS: BP 112/66
[2018-11-12] MEDS: KETOROLAC 15 MG/ML VIAL IV SCH ×4 (05:11→23:28)
[2018-11-12] MEDS: PANTOPRAZOLE 40 MG (PROTONIX) TAB PO SCH (05:59)
[2018-11-12] MEDS: CLINDAMYCIN 900 MG/50 ML IVPB 50 ML IV SCH ×3 (05:59→23:27)
[2018-11-12 06:23] LABS: BASOPHILS % (AUTO) 0 % (0-10); EOSINOPHILS # (AUTO) 0.1 10^3/uL (0.0-0.3); EOSINOPHILS % (AUTO) 1 % (0-10); HEMATOCRIT 39 % (40-54); HEMOGLOBIN 13.3 G/DL (13.3-17.7); LYMPHOCYTES # (AUTO) 2.6 X 10^3 (1.0-4.0); LYMPHOCYTES % (AUTO) 23 % (12-44); MEAN CORPUSCULAR HEMOGLOBIN 30 PG (25-34); MEAN CORPUSCULAR HGB CONC 34 G/DL (32-36); MEAN CORPUSCULAR VOLUME 88 FL (80-99); MEAN PLATELET VOLUME 11.5 FL (7.4-10.4); MONOCYTES # (AUTO) 0.7 X 10^3 (0.0-1.0); MONOCYTES % (AUTO) 6 % (0-12); NEUTROPHILS # (AUTO) 7.9 X 10^3 (1.8-7.8); NEUTROPHILS % (AUTO) 70 % (42-75); PLATELET COUNT 163 10^3/uL (130-400); RED CELL DISTRIBUTION WIDTH 13.3 % (10.0-14.5); WHITE BLOOD COUNT 11.2 10^3/uL (4.3-11.0)
[2018-11-12 06:45] LABS: ALANINE AMINOTRANSFERASE 37 U/L (0-55); ALBUMIN 4.2 GM/DL (3.2-4.5); ALKALINE PHOSPHATASE 69 U/L (40-136); BILIRUBIN,TOTAL 0.3 MG/DL (0.1-1.0); BUN/CREATININE RATIO 13; CALCIUM 9.1 MG/DL (8.5-10.1); CARBON DIOXIDE 20 MMOL/L (21-32); CHLORIDE 108 MMOL/L (98-107); CREATININE SERUM 1.06 MG/DL (0.60-1.30); GFR ESTIMATED > 60; GLUCOSE 212 MG/DL (70-105); SODIUM 139 MMOL/L (135-145)
[2018-11-12 07:48] VITALS: BP 122/63
[2018-11-12] MEDS: CLOPIDOGREL 75 MG (PLAVIX) TABLET PO SCH (08:44)
[2018-11-12] MEDS: LEVOFLOXACIN 750 MG/D5W 150 ML PRE-MIX IV SCH (08:44)
--- NOTE | 2018-11-12 10:44 | Progress Note ---
Subjective Date Seen by a Provider: Nov 12, 2018 Time Seen by a Provider: 10:39 Subjective/Events-last exam Fwup LLE cellulitis, PAD. MRI shows no evidence of osteomyelitis but does show a split tear in the peroneus longus tendon. Focused Exam Lactate Level 11/10/18 11:27: Lactic Acid Level 2.09*H 11/10/18 13:43: Lactic Acid Level 1.39 Objective Exam Vital Signs Date Time Temp Pulse Resp B/P (MAP) Pulse Ox O2 Delivery O2 Flow Rate FiO2 11/12/18 08:00 Room Air 11/12/18 07:48 35.9 79 18 122/63 (82) 100 Room Air 11/12/18 07:40 35.8 11/12/18 04:25 35.8 91 18 112/66 (81) 98 Room Air 11/12/18 00:15 35.8 82 18 120/70 (87) 99 Room Air 11/11/18 23:30 36.4 11/11/18 20:00 100 Room Air 11/11/18 19:42 36.4 88 18 122/60 (80) 100 Room Air 11/11/18 16:00 36.0 86 20 124/62 (82) 98 Room Air 11/11/18 12:56 36.4 93 20 116/65 (82) 96 Room Air I & O 11/12/18 07:00 Intake Total 3502 ml Output Total 1500 ml Balance 2002 ml Capillary Refill : Less Than 3 SecondsLess Than 3 Seconds General Appearance: No Apparent Distress Neck: Supple Extremity: Non Tender, No Calf Tenderness, No Pedal Edema Neurologic/Psychiatric: Alert, Oriented x3 Skin: Erythema (medial left ankle less erythemic today) Results Lab Laboratory Tests 11/12/18 05:40: White Blood Count 11.2H, Red Blood Count 4.41, Hemoglobin 13.3, Hematocrit 39L, Mean Corpuscular Volume 88, Mean Corpuscular Hemoglobin 30, Mean Corpuscular Hemoglobin Concent 34, Red Cell Distribution Width 13.3, Platelet Count 163, Mean Platelet Volume 11.5H, Neutrophils (%) (Auto) 70, Lymphocytes (%) (Auto) 23, Monocytes (%) (Auto) 6, Eosinophils (%) (Auto) 1, Basophils (%) (Auto) 0, Neutrophils # (Auto) 7.9H, Lymphocytes # (Auto) 2.6, Monocytes # (Auto) 0.7, Eos inophils # (Auto) 0.1, Basophils # (Auto) 0.0, Sodium Level 139, Potassium Level 4.0, Chloride Level 108H, Carbon Dioxide Level 20L, Anion Gap 11, Blood Urea Nitrogen 14, Creatinine 1.06, Estimat Glomerular Filtration Rate > 60, BUN/Creatinine Ratio 13, Glucose Level 212H, Calcium Level 9.1, Corrected Calcium 8.9, Total Bilirubin 0.3, Aspartate Amino Transf (AST/SGOT) 22, Alanine Aminotransferase (ALT/SGPT) 37, Alkaline Phosphatase 69, Total Protein 7.0, Albumin 4.2 Microbiology 11/10/18 Blood Culture - Preliminary, Resulted No growth Assessment/Plan Assessment/Plan Assess & Plan/Chief Complaint 1. Left Ankle Cellulitis--continue clindamycin and levaquin, add probiotic 2. PAD--back on Plavix 3. Left Split tear of peroneus longus tendon--will plan on ortho consult on [place] Clinical Quality Measures Admission Status Admission Dx 1. Acute Left LE Cellulitis--admit for IV clindamycin 2. History of PAD--resume plavix DVT/VTE Risk/Contraindication: Risk Factor Score Per Nursin RFS Level Per Nursing on Admit: 3=High Contraindications-Mechi: Other *list below* Other: PATIENT IS ON PLAVIX SYLVIA MARIA DO Nov 12, 2018 10:44
[2018-11-12] MEDS ORDERED: TRAM50TA2 PO (10:47)
[2018-11-12] MEDS ORDERED: LEVO750T9 PO (10:47)
[2018-11-12] MEDS ORDERED: LACT1CAP87 PO (10:50)
[2018-11-12] MEDS: LACTOBACILLUS ACIDOPHILUS (PROBIOTIC) CAPSULE PO SCH ×2 (11:58→17:50)
[2018-11-12 15:50] VITALS: BP 117/62
[2018-11-13] VITALS: BP 108/66
[2018-11-13] MEDS: HYDROcodone/APAP 5 MG/325 MG (LORTAB) TAB PO PRN ×2 (01:15→05:13)
[2018-11-13 05:58] LABS: BASOPHILS % (AUTO) 0 % (0-10); EOSINOPHILS # (AUTO) 0.4 10^3/uL (0.0-0.3); EOSINOPHILS % (AUTO) 5 % (0-10); HEMATOCRIT 37 % (40-54); HEMOGLOBIN 12.7 G/DL (13.3-17.7); LYMPHOCYTES # (AUTO) 2.5 X 10^3 (1.0-4.0); LYMPHOCYTES % (AUTO) 30 % (12-44); MEAN CORPUSCULAR HEMOGLOBIN 30 PG (25-34); MEAN CORPUSCULAR HGB CONC 34 G/DL (32-36); MEAN CORPUSCULAR VOLUME 88 FL (80-99); MEAN PLATELET VOLUME 10.7 FL (7.4-10.4); MONOCYTES # (AUTO) 0.6 X 10^3 (0.0-1.0); MONOCYTES % (AUTO) 7 % (0-12); NEUTROPHILS # (AUTO) 4.8 X 10^3 (1.8-7.8); NEUTROPHILS % (AUTO) 58 % (42-75); PLATELET COUNT 177 10^3/uL (130-400); RED CELL DISTRIBUTION WIDTH 13.8 % (10.0-14.5); WHITE BLOOD COUNT 8.4 10^3/uL (4.3-11.0)
[2018-11-13 06:16] LABS: ALANINE AMINOTRANSFERASE 26 U/L (0-55); ALBUMIN 3.8 GM/DL (3.2-4.5); ALKALINE PHOSPHATASE 70 U/L (40-136); BILIRUBIN,TOTAL 0.3 MG/DL (0.1-1.0); BUN/CREATININE RATIO 16; CALCIUM 8.8 MG/DL (8.5-10.1); CARBON DIOXIDE 22 MMOL/L (21-32); CHLORIDE 106 MMOL/L (98-107); CREATININE SERUM 1.18 MG/DL (0.60-1.30); GFR ESTIMATED > 60; GLUCOSE 145 MG/DL (70-105); POTASSIUM 4.2 MMOL/L (3.6-5.0); SODIUM 138 MMOL/L (135-145); TOTAL PROTEIN 6.4 GM/DL (6.4-8.2)
[2018-11-13] MEDS: CLINDAMYCIN 900 MG/50 ML IVPB 50 ML IV SCH (06:38)
[2018-11-13] MEDS: KETOROLAC 15 MG/ML VIAL IV SCH (06:38)
[2018-11-13] MEDS: LACTOBACILLUS ACIDOPHILUS (PROBIOTIC) CAPSULE PO SCH (06:38)
[2018-11-13] MEDS: PANTOPRAZOLE 40 MG (PROTONIX) TAB PO SCH (06:38)
[2018-11-13 08:00] VITALS: BP 107/59
[2018-11-13] MEDS: LEVOFLOXACIN 750 MG/D5W 150 ML PRE-MIX IV SCH (08:58)
[2018-11-13] MEDS: CLOPIDOGREL 75 MG (PLAVIX) TABLET PO SCH (08:58)
--- NOTE | 2018-11-13 11:36 | Discharge Inst-Simple/Standard ---
Discharge Inst-Standard Reconcile Patient Problems Problems Reviewed?: Yes Discharge Medications New, Converted or Re-Newed RX: Transmitted to Pharmacy Patient Instructions/Follow Up Plan of Care/Instructions/FU: Please continue to take your medications as written. Please follow up with Dr Shrestha in the next 1-2 weeks and with the Orthopedic Surgeon you were referred today. Activity as Tolerated: Yes Discharge Diet: Cardiac Diet Return to The Hospital For: Fever, worsenign redness, pain, or swelling, if you feel you are getting worse. ARACELY REYES MD Nov 13, 2018 11:36
--- NOTE | 2018-11-13 12:03 | Discharge Summary ---
Diagnosis/Chief Complaint Date of Admission Nov 10, 2018 at 13:24 Date of Discharge Discharge Date: Nov 13, 2018 Primary Care Janneth Shrestha DO Discharge Summary Discharge Physical Exam Allergies: Coded Allergies: Penicillins (Verified Allergy, Mild, 11/10/18) cefaclor (Verified Allergy, Mild, 11/10/18) Vitals & I&Os Vital Signs Date Time Temp Pulse Resp B/P (MAP) Pulse Ox O2 Delivery O2 Flow Rate FiO2 11/13/18 08:00 Room Air 11/13/18 08:00 35.4 80 16 107/59 (75) 95 Hospital Course Labs (last 24 hrs) Laboratory Tests 11/13/18 05:31: White Blood Count 8.4, Red Blood Count 4.24L, Hemoglobin 12.7L, Hematocrit 37L, Mean Corpuscular Volume 88, Mean Corpuscular Hemoglobin 30, Mean Corpuscular Hemoglobin Concent 34, Red Cell Distribution Width 13.8, Platelet Count 177, Mean Platelet Volume 10.7H, Neutrophils (%) (Auto) 58, Lymphocytes (%) (Auto) 30, Monocytes (%) (Auto) 7, Eosinophils (%) (Auto) 5, Basophils (%) (Auto) 0, Neutrophils # (Auto) 4.8, Lymphocytes # (Auto) 2.5, Monocytes # (Auto) 0.6, Eosinophils # (Auto) 0.4H, Basophils # (Auto) 0.0, Sodium Level 138, Potassium Level 4.2, Chloride Level 106, Carbon Dioxide Level 22, Anion Gap 10, Blood Urea Nitrogen 19H, Creatinine 1.18, Estimat Glomerular Filtration Rate > 60, BUN/Creatinine Ratio 16, Glucose Level 145H, Calcium Level 8.8, Corrected Calcium 9.0, Total Bilirubin 0.3, Aspartate Amino Transf (AST/SGOT) 17, Alanine Aminotransferase (ALT/SGPT) 26, Alkaline Phosphatase 70, Total Protein 6.4, Albumin 3.8 Microbiology 11/10/18 Blood Culture - Preliminary, Resulted No growth Patient resulted labs reviewed. Pending Labs Laboratory Tests 11/13/18 05:31: White Blood Count 8.4, Red Blood Count 4.24, Hemoglobin 12.7, Hematocrit 37, M robert Corpuscular Volume 88, Mean Corpuscular Hemoglobin 30, Mean Corpuscular Hemoglobin Concent 34, Red Cell Distribution Width 13.8, Platelet Count 177, Mean Platelet Volume 10.7, Neutrophils (%) (Auto) 58, Lymphocytes (%) (Auto) 30, Monocytes (%) (Auto) 7, Eosinophils (%) (Auto) 5, Basophils (%) (Auto) 0, Neutrophils # (Auto) 4.8, Lymphocytes # (Auto) 2.5, Monocytes # (Auto) 0.6, Eosinophils # (Auto) 0.4, Basophils # (Auto) 0.0, Sodium Level 138, Potassium Level 4.2, Chloride Level 106, Carbon Dioxide Level 22, Anion Gap 10, Blood Urea Nitrogen 19, Creatinine 1.18, Estimat Glomerular Filtration Rate > 60, BUN/Creatinine Ratio 16, Glucose Level 145, Calcium Level 8.8, Corrected Calcium 9.0, Total Bilirubin 0.3, Aspartate Amino Transf (AST/SGOT) 17, Alanine A minotransferase (ALT/SGPT) 26, Alkaline Phosphatase 70, Total Protein 6.4, Albumin 3.8 Discharge Home Medications: Active Scripts Active Acidophilus Lactobacilli (Lactobacillus Acidophilus) 1 Each Capsule 2 Each PO TID Tramadol HCl 50 Mg Tablet 100 Mg PO TID Levaquin (Levofloxacin) 750 Mg Tablet 750 Mg PO DAILY Reported Multivitamins (Multivitamin) 1 Each Tablet 1 Tab PO DAILY Flovent Hfa 220 mcg (Fluticasone Propionate) 1 Ea Aero 4 Puff INH BID PRN Ranitidine HCl 150 Mg Tablet 150 Mg PO BID LAST FILLED #60 09-23-18 Clindamycin HCl 300 Mg Capsule 300 Mg PO TID 10 Days 10 DAY SUPPLY FILLED 11-08-18 Omeprazole 40 Mg Capsule.dr 40 Mg PO HS LAST FILLED #30 09-07-18 Clopidogrel (Clopidogrel Bisulfate) 75 Mg Tablet 75 Mg PO DAILY LAST FILLED #30 09-07-18 Cyclobenzaprine HCl 10 Mg Tablet 10 Mg PO HS PRN Instructions to patient/family Please see electronic discharge instructions given to patient. Clinical Quality Measures DVT/VTE Risk/Contraindication: Risk Factor Score Per Nursin RFS Level Per Nursing on Admit: 3=High Contraindications-Mechi: Other *list below* Other: PATIENT IS ON PLAVIX ARACELY REYES MD Nov 13, 2018 12:03
[2018-11-13 12:44] VITALS: BP 107/59
== END 2018-11-13 12:50 | disposition home or self-care (01) | DRG 603 ==
LOC: EDUNIT# 09:55 → ER 09:56 → 4TH 13:24
PROVIDERS: ADMIT Family Medicine; ATTEND Family Medicine
DX: L03.116 Cellulitis of left lower limb (principal); I73.9 Peripheral vascular disease, unspecified; S86.312A Strain of muscle(s) and tendon(s) of peroneal muscle group at lower leg level, left leg, initial encounter; K59.09 Other constipation; Z87.891 Personal history of nicotine dependence; Z86.718 Personal history of other venous thrombosis and embolism; Z89.021 Acquired absence of right finger(s); Z95.828 Presence of other vascular implants and grafts; Z88.0 Allergy status to penicillin
CPT/HCPCS: 36415; 73721; 80053; 83605; 85007; 85025; 85027; 86141; 87040; 96365; 96375; 96376

== ENCOUNTER 2019-05-09 13:32 | Outpatient (RCR) | payer BC ==
[~2019-05-09 13:32] MED LIST changes: +CLIN300C11 PO; +FLT22013 INH; +LACT1CAP87 PO; +LEVO750T9 PO; +MULT1TAB69 PO; +OMEP40CA27 PO; +RANI150T11 PO; -TRAM50TA2; -TRAM50TA2 PO; +TRM50T; +TRM50T PO
== END 2019-08-02 | disposition home or self-care (01) ==
PROVIDERS: ATTEND Internal Medicine Cardiovascular Disease
DX: I70.212 Atherosclerosis of native arteries of extremities with intermittent claudication, left leg (principal); E11.9 Type 2 diabetes mellitus without complications; I48.0 Paroxysmal atrial fibrillation; R26.89 Other abnormalities of gait and mobility; Z98.890 Other specified postprocedural states

== ENCOUNTER 2019-08-06 10:12 | Inpatient (IN) | payer BC ==
[~2019-08-06] VITALS: Ht 193 cm; Wt 83.1 kg
[~2019-08-06 10:12] MED LIST changes: +MULT-567 PO; -MULT1TAB69 PO
--- OUTSIDE RECORDS SUMMARY | 2019-08-06 10:20 | XMS REPORT | CCD ---
Author Author [place] Organization JANNETH SHRESTHA DO [facility] Address [address] [place] [address] Phone Unavailable Care Team Providers Care Mental Health Advanced Practice Nurse Name Role Phone Janneth Shrestha D.O., PP Unavailable CCM Unavailable Summary Purpose Interface Exchange Insurance Providers Payer name Policy type / Coverage type Covered libertarian ID Effective Begin Date Effective End Date Blue Cross Blue Shield Blue Cross/Blue Shield [id number] Unknown Family History Family History data not found Social History Social History Element Codes Description Effective Dates Marital status Unknown 05/24/2015 Number of children Unknown 2 05/24/2015 Employment Unknown Currently employed 05/24/[address]: 57144710 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 05/24/2015 Allergies, Adverse Reactions, Alerts Substance Reaction Codes Entered Date Inactivated Date Status * NO KNOWN FOOD ALLERGIES Unknown 05/24/2015 No Inactiv e Date Active * NO KNOWN ENVIRONMENTAL ALLERGIES Unknown 05/24/2015 N o Inactive Date Active _ Unknown 05/24/2015 No Inactive Date Active Problems Condition Codes Effective Dates Condition Status DM w/o complication type II, uncontrolled ICD-9: 250.0 2 ICD-10: E11.65 04/11/2019 Active Other specified local infections of the skin and subcu taneous tissue ICD-9: 686.8 ICD-10: L08.89 11/14/2016 Active Right leg DVT ICD-9: 453.40 ICD-10: I82.401 04/25/2019 Active 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, implant, or graft ICD-9: 996 .70 ICD-10: T85.818A 04/11/2019 Active Acute dermatitis ICD-9: 692.9 ICD-10: L30.9 05/02/2019 Active Allergic dermatitis ICD-9: 692.9 ICD-10: L23.9 04/25/2019 Active Paroxysmal atrial fibrillation ICD-9: 427.31 ICD-10: I48.0 04/25/2019 Active Right calf pain ICD-9: 729.5 ICD-10: M79.661 04/25/2019 Active Hypertension Unknown 04/11/2019 Active Essential hypertension ICD-9: 401.9 ICD-10: I10 04/11/2019 Active Folliculitis ICD-9: 704.8 ICD-10: L73.9 03/01/2019 Active Sinus tachycardia ICD-9: 427.89 ICD-10: R00.0 03/01/2019 Active Cellulitis of left lower limb ICD-9: 682.6 ICD-10: L03.116 10/13/2018 Active Tendinitis of left peroneus longus tendon ICD-9: 727.0 6 ICD-10: M76.72 11/18/2018 Active Cellulitis of left foot ICD-9: 682.7 ICD-10: L03.116 11/09/2018 Active Mixed hyperlipidemia ICD-9: 272.4 ICD-10: E78.2 2018 Active Spontaneous ecchymoses ICD-9: 782.7 ICD-10: R23.3 11/14/2016 Active Venous insufficiency (chronic) (peripheral) ICD-9: 459 .81 ICD-10: I87.2 10/13/2018 Active Pain in right foot ICD-9: 729.5 ICD-10: M79.671 10/13/2018 Active Low back pain ICD-9: 724.2 ICD-10: M54.5 09/23/2018 Active Dysphagia, pharyngoesophageal phase ICD-9: 787.24 ICD-10: R13.14 09/06/2018 Active Gastro-esophageal reflux disease without esophagitis I CD-9: 530.81 ICD-10: K21.9 09/06/2018 Active Tinea corporis ICD-9: 110.5 ICD-10: B35.4 07/15/2018 Active Cellulitis of left toe ICD-9: 681.10 ICD-10: L03.032 03/18/2018 Active Rash and other nonspecific skin eruption ICD-9: 782.1 ICD-10: R21 01/26/2018 Active Unspecified disturbances of skin sensation ICD-9: 782. 0 ICD-10: R20.9 10/06/2017 Active Insomnia, unspecified ICD-9: 780.52 ICD-10: G47.00 11/14/2016 Active Other postprocedural complications and d isorders of the circulatory system, not elsewhere classified ICD-9: 997.1 ICD-10: I97.89 12/22/2017 Active Pain in right leg ICD-9: 729.5 ICD-10: M79.604 01/26/2018 Active Cellulitis of right lower limb ICD-9: 682.6 ICD-10: L03.115 12/22/2017 Active Acute sinusitis, unspecified ICD-9: 461.9 ICD-10: J01.90 10/06/2017 Active Pain in left shoulder ICD-9: 719.41 ICD-10: M25.512 02/03/2017 Active Poisoning by other parasympatholytics [a nticholinergics and antimuscarinics] and spasmolytics, accidental (unintentional), sequela ICD-9: 909.0 ICD-10: T44.3X1S 02/03/2017 Active Primary insomnia ICD-9: 780.52 ICD-10: F51.01 02/03/2017 Active Constipation, unspecified ICD-9: 564.00 ICD-10: K59.00 11/14/2016 Active Pain in left foot ICD-9: 729.5 ICD-10: M79.672 11/25/2016 Active Acute upper respiratory infection, unspecified ICD-9: 465.9 ICD-10: J06.9 04/02/2016 Active Dysphagia, unspecified ICD-9: 787.20 ICD-10: R13.10 06/26/2015 Active Pain in thoracic spine ICD-9: 724.1 ICD-10: M54.6 06/26/2015 Active Paresthesia of skin ICD-9: 782.0 ICD-10: R20.2 06/26/2015 Active Male erectile dysfunction, unspecified ICD-9: 607.84 ICD-10: N52.9 05/23/2015 Active Pain in left leg ICD-9: 729.5 ICD-10: M79.605 05/23/2015 Active Medications Medication Codes Instructions Start Date Stop Date Status Fill Instructions metoprolol succinate ER 50 mg tablet,extended release 24 hr RxNorm: 777051 1 Tablet(s) Oral QD 08/01/2019 10/30/2019 Active cyclobenzaprine 10 mg tablet RxNorm: 546637 TAKE ONE TA BLET BY MOUTH AT BEDTIME NEEDED 07/12/2019 No Stop Date Active cephalexin 500 mg tablet RxNorm: 724619 1 Tablet(s) Oral three times a day 07/05/2019 07/12/2019 Inactive cyclobenzaprine 10 mg tablet RxNorm: 646251 TAKE ONE TA BLET BY MOUTH AT BEDTIME NEEDED 05/20/2019 07/11/2019 Inactive metformin ER 1,000 mg tablet,extended release 24hr RxNorm: 1 468775 1 Tablet(s) Oral two times a day replaces 500mg dose 05/17/2019 11/13/2019 Active [AttnRPh: Saving apply/adjudicate RxGRP:[id number] RxBIN:[id number] RxPCN: ID#:[id number]] ReliOn Prime Test Strips RxNorm: 1 Unit Dose Miscellaneo us two times a day 05/02/2019 07/15/2022 Active ReliOn Thin Lancets 26 gauge RxNorm: 1 Unit Dose Miscell aneous two times a day 05/02/2019 05/02/2019 Inactive ReliOn Thin Lancets 26 gauge RxNorm: 1 Unit Dose Miscell aneous two times a day 05/02/2019 05/01/2019 Inactive ReliOn Prime Test Strips RxNorm: 1 Unit Dose Miscellaneo us two times a day 05/02/2019 05/01/2019 Inactive Plavix 75 mg tablet RxNorm: 417447 TAKE ONE TABLET BY MOUTH DAILY 0 04/25/2019 04/26/2019 Inactive Plavix 75 mg tablet RxNorm: 966484 TAKE ONE TABLET BY MOUTH DAILY 0 04/25/2019 04/24/2019 Inactive Xarelto 20 mg tablet RxNorm: 7721499 1 Tablet(s) Oral QD 04/25/2019 0 07/04/2019 Inactive amiodarone 200 mg tablet RxNorm: 930873 1 Tablet(s) Oral QD 020 07/04/2019 Inactive metformin ER 500 mg 24 hr tablet,extended release RxNorm: 18 49021 1 Tablet(s) Oral two times a day 04/25/2019 05/16/2019 Inactive prednisone 20 mg tablet RxNorm: 667916 1 Tablet(s) Oral two jn es a day 04/25/2019 05/01/2019 Inactive aspirin 81 mg tablet,delayed release RxNorm: 490492 1 Tablet(s) Oral QD 04/11/2019 No Stop Date Active pantoprazole 40 mg tablet,delayed release RxNorm: 415426 1 Tabl et(s) Oral QAM 04/11/2019 No Stop Date Active Vitamin C 1,000 mg tablet RxNorm: 048812 1 Tablet(s) Oral QD 2019 No Stop Date Active Xarelto 15 mg tablet RxNorm: 3211391 1 Tablet(s) Oral QD 04/11/2019 0 04/24/2019 Inactive metformin ER 500 mg 24 hr tablet,extended release RxNorm: 18 49819 1 Tablet(s) Oral QD 04/11/2019 04/24/2019 Inactive cephalexin 500 mg capsule RxNorm: 321207 1 Capsule(s) Oral thre e times a day 04/11/2019 04/18/2019 Inactive metoprolol succinate ER 50 mg tablet,extended release 24 hr RxNorm: 540555 1 Tablet(s) Oral QD replaces 25mg dose 04/11/2019 05/01/2019 Inactive cyclobenzaprine 10 mg tablet RxNorm: 843128 TAKE ONE TA BLET BY MOUTH EVERY NIGHT AT BEDTIME NEEDED 03/11/2019 No Stop Date Active mupirocin 2 % topical ointment RxNorm: 716074 Applicati on Topical two times a day 03/01/2019 04/10/2019 Inactive metoprolol succinate ER 25 mg tablet,extended release 24 hr RxNorm: 507743 1 Tablet(s) Oral QD 03/01/2019 04/24/2019 Inactive Bactrim DS 800 mg-160 mg tablet RxNorm: 261192 1 Tablet(s) Oral two times a day 03/01/2019 03/11/2019 Inactive cyclobenzaprine 10 mg tablet RxNorm: 327777 TAKE ONE TA BLET BY MOUTH EVERY NIGHT AT BEDTIME NEEDED 01/10/2019 03/10/2019 Inactive Plavix 75 mg tablet RxNorm: 015963 TAKE ONE TABLET BY MOUTH DAILY 1 03/12/2018 04/24/2019 Inactive omeprazole 40 mg capsule,delayed release RxNorm: 567407 TAKE ONE CAPSULE BY MOUTH EVERY NIGHT AT BEDTIME FOR REFLUX 01/10/2019 05/16/2019 Inactive tramadol 50 mg tablet RxNorm: 619914 1 Tablet(s) Oral f our times a day as needed 01/03/2019 01/03/2019 Inactive doxycycline monohydrate 100 mg capsule RxNorm: 2733316 1 Capsule(s) Oral two times a day 11/22/2018 12/13/2018 Inactive prednisone 20 mg tablet RxNorm: 340031 1 Tablet(s) Oral two jn es a day 11/22/2018 11/29/2018 Inactive Levaquin 750 mg tablet RxNorm: 109589 Tablet(s) Oral 11/18/201802/28 Inactive prednisone 20 mg tablet RxNorm: 974471 1 Tablet(s) Oral two jn es a day 11/18/2018 11/21/2018 Inactive tramadol 50 mg tablet RxNorm: 595850 Tablet(s) Oral 11/18/20182018 Inactive doxycycline monohydrate 100 mg capsule RxNorm: 1361776 1 Capsule(s) Oral two times a day 11/18/2018 11/21/2018 Inactive Plavix 75 mg tablet RxNorm: 679624 TAKE ONE TABLET BY MOUTH DAILY 0 11/10/2018 01/08/2019 Inactive clindamycin HCl 300 mg capsule RxNorm: 140006 1 Capsule (s) Oral three times a day 11/09/2018 11/19/2018 Inactive Keflex 500 mg capsule RxNorm: 706713 1 Capsule(s) PO BID 10/13/2018 0 10/22/2018 Inactive Medrol ([place]) 4 mg tablets in a dose pack RxNorm: 410530 Tablet(s) take as directed PO 09/23/2018 10/12/2018 Inactive omeprazole 40 mg capsule,delayed release RxNorm: 755780 1 Capsule(s) PO QHS for reflux 09/06/2018 11/04/2018 Inactive Diflucan 150 mg tablet RxNorm: 669218 1 Tablet(s) PO Q72H 07/15/2018 09/05/2018 Inactive cyclobenzaprine 10 mg tablet RxNorm: 585409 1 Tablet(s) PO QHS as needed 07/15/2018 10/12/2018 Inactive nystatin 100,000 unit/gram topical cream RxNorm: 658406 1 Gram( s) TOP BID 07/15/2018 09/05/2018 Inactive Plavix 75 mg tablet RxNorm: 972631 1 Tablet(s) PO QD 07/15/201810/12 Inactive cyclobenzaprine 10 mg tablet RxNorm: 246839 1 Tablet(s) PO QHS as needed 06/10/2018 06/09/2018 Inactive cyclobenzaprine 10 mg tablet RxNorm: 474970 TAKE ONE TA BLET BY MOUTH EVERY NIGHT AT BEDTIME NEEDED 05/10/2018 06/10/2018 Inactive mupirocin 2 % topical ointment RxNorm: 672115 1 Application TOP BID 2018 05/25/2018 Inactive 22 gram cyclobenzaprine 10 mg tablet RxNorm: 110432 1 Tablet(s) PO QHS as needed 04/14/2018 06/09/2018 Inactive doxycycline hyclate 100 mg tablet RxNorm: 4549722 1 Tablet(s) PO BI D 04/14/2018 04/23/2018 Inactive cyclobenzaprine 10 mg tablet RxNorm: 766478 1 Tablet(s) PO QHS as needed 04/07/2018 04/13/2018 Inactive Bactrim DS 800 mg-160 mg tablet RxNorm: 801036 1 Tablet(s) PO BID 0 03/18/2018 03/27/2018 Inactive cyclobenzaprine 10 mg tablet RxNorm: 608221 1 Tablet(s) PO QHS as needed 03/18/2018 04/06/2018 Inactive triamcinolone acetonide 0.1 % topical cream RxNorm: 3520089 APPLY TO AFFECTED AREA(S) TWO TIMES A DAY 02/03/2018 02/12/2018 Inactive triamcinolone acetonide 0.1 % topical cream RxNorm: 3519639 1 Application TOP BID 01/26/2018 02/02/2018 Inactive Medrol ([place]) 4 mg tablets in a dose pack RxNorm: 912368 TAKE BY MOUTH INSTRUCTED - PER PACKAGE INSTRUCTIONS 12/11/2017 12/16/2017 Inactive Medrol (B[place]den) 4 mg tablets in a dose pack RxNorm: 436401 Tablet(s) P O 10/06/2017 12/10/2017 Inactive Lunesta 3 mg tablet RxNorm: 547943 1 Tablet(s) PO QHS 11/25/201608/2016 Inactive Lunesta 3 mg tablet RxNorm: 078219 1 Tablet(s) PO QHS 11/14/201610/2016 Inactive Bactrim DS 800 mg-160 mg tablet RxNorm: 885160 1 Tablet(s) PO BID 0 11/14/2016 11/23/2016 Inactive Epi E-Z Pen 0.3 mg/0.3 mL injection, auto-injector RxNorm: 1 475559 Milliliter(s) IM Use as Directed 06/25/2016 09/05/2018 Inactive amoxicillin 875 mg tablet RxNorm: 133672 1 Tablet(s) PO BID 017 04/11/2016 Inactive prednisone 20 mg tablet RxNorm: 078397 1 Tablet(s) PO BID 04/02/2016 04/06/2016 Inactive azithromycin 250 mg tablet RxNorm: 682654 2 Tablet(s) P O on day one then 1 tab on days 2-5 11/29/2015 11/28/2015 Inactive Medrol (B[place]den) 4 mg tablets in a dose pack RxNorm: 025568 Take as directed 11/29/2015 11/13/2016 Inactive meloxicam 15 mg tablet RxNorm: 598807 1 Tablet(s) PO QD 07/02/2015 Inactive Chantix Starting Month Box 0.5 mg (11)-1 mg (42) table ts in dose pack RxNorm: 381299 Tablet(s) PO As Directed 06/20/2015 07/10/2015 Inactive omeprazole 40 mg capsule,delayed release RxNorm: 688634 1 Capsu le(s) PO QD 05/31/2015 11/13/2016 Inactive omeprazole 40 mg capsule,delayed release RxNorm: 979878 1 Capsu le(s) PO QD 05/31/2015 05/30/2015 Inactive Multivitamin And Mineral oral RxNorm: oral No Start Date Active Wellbutrin SR 150 mg tablet,sustained-release RxNorm: 886272 1 Tablet(s) PO BID No Start Date 11/13/2016 Inactive gabapentin 100 mg capsule RxNorm: 922689 1 Capsule(s) PO TID No Sta rt Date 03/17/2018 Inactive Chantix Starting Month Box 0.5 mg (11)-1 mg (42) table ts in dose pack RxNorm: 689283 Tablet(s) PO As Directed No Start Date 06/19/2015 Inactive Eliquis 5 mg tablet RxNorm: 1287563 1 Tablet(s) PO BID No Start Date 03/17/2018 Inactive Lactobacillus acidophilus-Bifidobacterium longum oral RxNorm: oral No Start Date 07/04/2019 Inactive aspirin 325 mg tablet RxNorm: 931128 1 Tablet(s) PO QD No Start Date 11/13/2016 Inactive clindamycin HCl 300 mg capsule RxNorm: 042531 2 Capsule(s) PO Q8H N o Start Date 03/17/2018 Inactive Fish Oil 1,000 mg (120 mg-180 mg) capsule RxNorm: 1 Caps ule(s) PO QD No Start Date 09/05/2018 Inactive aspirin 81 mg tablet RxNorm: 037186 1 Tablet(s) PO QD No Start Date 1 03/28/2017 Inactive Fish Oil 1,000 mg capsule RxNorm: 1 Capsule(s) PO QD No Start Date 11/13/2016 Inactive Baby Aspirin 81 mg chewable tablet RxNorm: 615346 1 Tablet(s) P O BID No Start Date 02/02/2017 Inactive Xarelto 10 mg tablet RxNorm: 4563040 1 Tablet(s) PO QD No Start Date 01/25/2018 Inactive tramadol 50 mg tablet RxNorm: 894767 1-2 Tablet(s) PO Q6H No Start Date 03/17/2018 Inactive meloxicam 15 mg tablet RxNorm: 048703 1 Tablet(s) PO QD No Start Da te 07/01/2015 Inactive Epi E-Z Pen 0.3 mg/0.3 mL injection, auto-injector RxNorm: 1 070120 Milliliter(s) IM Use as Directed No Start Date 06/24/2016 Inactive Plavix 75 mg tablet RxNorm: 906074 1 Tablet(s) PO QD No Start Date Inactive Medication Administered No Medication Administered data Immunizations No Immunization data Results Observation Observation Code Item Item Code Result Date S ervice Location COMPREHENSIVE METABOLIC 83020 AST 25 U/L 2018 Unknown COMPREHENSIVE METABOLIC 96242 ALT 28 U/L 2018 Unknown COMPREHENSIVE METABOLIC 33169 BUN 13 mg/dL 2018 Unknown COMPREHENSIVE METABOLIC 15248 ALBUMIN 4.2 g/dL 2018 Unknown COMPREHENSIVE METABOLIC 32528 CHLORIDE 104 mmol/L 11/09 Unknown COMPREHENSIVE METABOLIC 27123 Bili Total 0.5 mg/dL 11/09 Unknown COMPREHENSIVE METABOLIC 99104 ALK PHOS 72 U/L 2018 Unknown COMPREHENSIVE METABOLIC 40115 SODIUM 139 mmol/L 11/09 Unknown COMPREHENSIVE METABOLIC 93441 CREATININE 0.98 mg/dL 10/18 Unknown COMPREHENSIVE METABOLIC 70511 CALCIUM 9.1 mg/dL 2018 Unknown COMPREHENSIVE METABOLIC 09228 POTASSIUM 3.7 mmol/L 11/09 Unknown COMPREHENSIVE METABOLIC 84893 Total Protein 7.2 g/dL Unknown COMPREHENSIVE METABOLIC 00464 Glucose 137 mg/dL 2018 Unknown COMPREHENSIVE METABOLIC 79977 Bicarbonate 24 mmol/L 10/18 Unknown COMPREHENSIVE METABOLIC 86927 AGAP 11 mmol/L 2018 Unknown COMPLETE BLOOD COUNT [id number] WBC 4.6 10e9/L 11/10/19 19 Unknown COMPLETE BLOOD COUNT [id number] RBC 4.88 10e12/L 2018 Unknown COMPLETE BLOOD COUNT [id number] HEMOGLOBIN 14.7 g/dL 11/10/19 19 Unknown COMPLETE BLOOD COUNT [id number] HEMATOCRIT 43.7 % 11/10/19 19 Unknown COMPLETE BLOOD COUNT 9129982 MCV 89.5 fL 9 Unknown COMPLETE BLOOD COUNT [id number] MCH 30.1 pg 9 Unknown COMPLETE BLOOD COUNT 0175657 MCHC 33.6 g/dL 9 Unknown COMPLETE BLOOD COUNT [id number] PLATELET COUNT 179 10e9/L Unknown COMPLETE BLOOD COUNT 4687542 Mean Plt Volume 11.6 fL Unknown COMPLETE BLOOD COUNT 9755149 Neut Auto 55.5 % 9 Unknown COMPLETE BLOOD COUNT [id number] Lymph Auto 28.7 % 11/10/19 19 Unknown COMPLETE BLOOD COUNT 5034959 [place] Auto 7.9 % 9 Unknown COMPLETE BLOOD COUNT 1834358 RDW 13.2 % 9 Unknown COMPLETE BLOOD COUNT 8115810 Eos Auto 7.7 % 9 Unknown COMPLETE BLOOD COUNT 7301370 Baso Auto 0.2 % 9 Unknown COMPLETE BLOOD COUNT [id number] Neutrophil Abs 2.55 10e9/L Unknown COMPLETE BLOOD COUNT [id number] Lymphocyte Abs 1.32 10e9/L Unknown COMPLETE BLOOD COUNT [id number] Monocyte Abs 0.36 10e9/L 10/18 Unknown COMPLETE BLOOD COUNT [id number] Eosinophil Abs 0.35 10e9/L Unknown COMPLETE BLOOD COUNT 5651244 RDW-SD 42.2 fL 9 Unknown COMPLETE BLOOD COUNT [id number] Basophil Abs 0.01 10e9/L 10/18 Unknown [facility] 15628 Cholesterol 205 mg/dL 11/09/2018 Unkno wn LIPID GROUP 41583 Triglyceride 268 mg/dL 11/09/2018 Unkn own [facility] 47759 HDL CHOLESTEROL 35 mg/dL 11/09/2018 U nknown L[facility] 59422 Chol/HDL Ratio 5.86 ratio 11/09/2018 U nknown L[facility] GROUP 63436 NON-HDL Chol 170 mg/dL 11/09/2018 Unkn own [facility] 54942 LDL Cholesterol 116 mg/dL 11/09/2018 U nknown PT 9408256 PT 12.7 Seconds 11/09/2018 Unknow n PT 9622003 INR 0.9 11/09/2018 Unknown GFR CALC 0335568 GFR Non Afr Amr >60 mL/min 11/09/2018 Un known GFR CALC 6299513 GFR Afr Amr >60 mL/min 11/09/2018 Unknow n ACT PARTIAL THRMBOPLASTIN TIME 70321 PTT 34.0 Sec[place] nds 11/09/2018 Unknown LIP[facility] GROUP 47924 Cholesterol 186 mg/dL 2018 Unkno wn L[facility] 98785 Triglyceride 229 mg/dL 2018 Unkn own [facility] 19162 HDL CHOLESTEROL 36 mg/dL 2018 U nknown [facility] 36360 Chol/HDL Ratio 5.17 ratio 2018 U nknown [facility] 55401 NON-HDL Chol 150 mg/dL 2018 Unkn own [facility] 87081 LDL Cholesterol 104 mg/dL 2018 U nknown GFR CALC 0093516 GFR Afr Amr >60 mL/min 2018 Unknow n GFR CALC 4685732 GFR Non Afr Amr >60 mL/min 2018 Un known COMPREHENSIVE METABOLIC 20909 AST 23 U/L 2018 Unknown COMPREHENSIVE METABOLIC 99990 ALT 22 U/L 2018 Unknown COMPREHENSIVE METABOLIC 44286 BUN 15 mg/dL 2018 Unknown COMPREHENSIVE METABOLIC 83267 ALBUMIN 4.1 g/dL 2018 Unknown COMPREHENSIVE METABOLIC 25342 CHLORIDE 106 mmol/L 05/06 Unknown COMPREHENSIVE METABOLIC 45936 Bili Total 0.6 mg/dL 05/06 Unknown COMPREHENSIVE METABOLIC 41827 ALK PHOS 61 U/L 2018 Unknown COMPREHENSIVE METABOLIC 79713 SODIUM 141 mmol/L 05/06 Unknown COMPREHENSIVE METABOLIC 13985 CREATININE 0.91 mg/dL 04/17 Unknown COMPREHENSIVE METABOLIC 38194 CALCIUM 9.2 mg/dL 2018 Unknown COMPREHENSIVE METABOLIC 28803 POTASSIUM 3.8 mmol/L 05/06 Unknown COMPREHENSIVE METABOLIC 93454 Total Protein 7.0 g/dL Unknown COMPREHENSIVE METABOLIC 46286 Glucose 97 mg/dL 2018 Unknown COMPREHENSIVE METABOLIC 82978 Bicarbonate 28 mmol/L 04/17 Unknown COMPREHENSIVE METABOLIC 61734 AGAP 7 mmol/L 2018 Unknown THYROID STIMULATING HORMONE 46797 TSH 2.094 uIU/mL 2018 Unknown COMPLETE BLOOD COUNT 6007234 WBC 5.5 10e9/L 05/07/19 19 Unknown COMPLETE BLOOD COUNT [id number] RBC 4.61 10e12/L 2018 Unknown COMPLETE BLOOD COUNT [id number] HEMOGLOBIN 13.6 g/dL 05/07/19 19 Unknown COMPLETE BLOOD COUNT 6740276 HEMATOCRIT 40.0 % 05/07/19 19 Unknown COMPLETE BLOOD COUNT 7308370 MCV 86.8 fL 9 Unknown COMPLETE BLOOD COUNT 5099051 MCH 29.5 pg 9 Unknown COMPLETE BLOOD COUNT 2611602 MCHC 34.0 g/dL 9 Unknown COMPLETE BLOOD COUNT 2370960 PLATELET COUNT 197 10e9/L Unknown COMPLETE BLOOD COUNT 9700589 Mean Plt Volume 10.8 fL Unknown COMPLETE BLOOD COUNT 4328375 Neut Auto 49.6 % 9 Unknown COMPLETE BLOOD COUNT 4698026 Lymph Auto 36.8 % 05/07/19 19 Unknown COMPLETE BLOOD COUNT 1987450 [place] Auto 8.1 % 9 Unknown COMPLETE BLOOD COUNT 0973265 RDW 15.3 % 9 Unknown COMPLETE BLOOD COUNT 5070855 Eos Auto 5.3 % 9 Unknown COMPLETE BLOOD COUNT 5563940 Baso Auto 0.2 % 9 Unknown COMPLETE BLOOD COUNT 5756475 Neutrophil Abs 2.73 10e9/L Unknown COMPLETE BLOOD COUNT 6472367 Lymphocyte Abs 2.02 10e9/L Unknown COMPLETE BLOOD COUNT [id number] Monocyte Abs 0.45 10e9/L 04/17 Unknown COMPLETE BLOOD COUNT 0737302 Eosinophil Abs 0.29 10e9/L Unknown COMPLETE BLOOD COUNT 5267269 RDW-SD 47.9 fL 9 Unknown COMPLETE BLOOD COUNT [id number] Basophil Abs 0.01 10e9/L 04/17 Unknown Procedures Procedure Codes Date CEFTRIAXONE SODIUM INJECTION CPT-4: J0696 11/09/2018 THER/PROPH/DIAG INJ SC/IM CPT-4: 35427 11/09/2018 ROUTINE VENIPUNCTURE CPT-4: 77578 11/09/2018 COMPREHEN METABOLIC PANEL CPT-4: 65961 11/09/2018 COMPLETE CBC W/AUTO DIFF WBC CPT-4: 45954 11/09/2018 LIPID PANEL CPT-4: 89300 11/09/2018 PROTHROMBIN TIME CPT-4: 70938 11/09/2018 THROMBOPLASTIN TIME PARTIAL CPT-4: 30255 11/09/2018 THER/PROPH/DIAG INJ SC/IM CPT-4: 25391 09/23/2018 KETOROLAC TROMETHAMINE INJ CPT-4: J1885 09/23/2018 ROUTINE VENIPUNCTURE CPT-4: 24633 2018 ASSAY THYROID STIM HORMONE CPT-4: 32434 2018 COMPREHEN METABOLIC PANEL CPT-4: 17694 2018 COMPLETE CBC W/AUTO DIFF WBC CPT-4: 54325 2018 LIPID PANEL CPT-4: 38239 2018 CEFTRIAXONE SODIUM INJECTION CPT-4: J0696 04/14/2018 THER/PROPH/DIAG INJ SC/IM CPT-4: 36716 04/14/2018 CEFTRIAXONE SODIUM INJECTION CPT-4: J0696 03/18/2018 THER/PROPH/DIAG INJ SC/IM CPT-4: 41142 03/18/2018 THER/PROPH/DIAG INJ SC/IM CPT-4: 94357 01/26/2018 KETOROLAC TROMETHAMINE INJ CPT-4: J1885 01/26/2018 CEFTRIAXONE SODIUM INJECTION CPT-4: J0696 12/22/2017 THER/PROPH/DIAG INJ SC/IM CPT-4: 28347 12/22/2017 ROUTINE VENIPUNCTURE CPT-4: 57592 11/14/2016 COMPLETE CBC W/AUTO DIFF WBC CPT-4: 22927 11/14/2016 PT/PTT CPT-4: 7413422 11/14/2016 Vital Signs Date Vital 07/05/2019 Blood Pressure 1: 122/66 Code: 8480-6 Heart Rate 1: 108 bpm Respiratory Rate: 20 bpm SpO2: 92% Temperature: 36.5 (C) / 97.7 (F) We ight: 184 lbs 05/17/2019 Blood Pressure 1: 112/78 Code: 8480-6 Heart Rate 1: 72 bpm Respiratory Rate: 20 bpm SpO2: 100% Temperature: 36.6 (C) / 97.9 (F) 05/02/2019 Blood Pressure 1: 132/80 Code: 8480-6 Heart Rate 1: 72 bpm Respiratory Rate: 20 bpm SpO2: 99% Temperature: 36.3 (C) / 97.4 (F) We ight: 190 lbs 04/25/2019 Blood Pressure 1: 131/76 Code: 8480-6 Heart Rate 1: 94 bpm Respiratory Rate: 16 bpm SpO2: 100% Temperature: 36.3 (C) / 97.4 (F) We ight: 184 lbs 04/11/2019 Blood Pressure 1: 152/86 Code: 8480-6 Heart Rate 1: 100 bpm Respiratory Rate: 20 bpm SpO2: 96% Temperature: 37.0 (C) / 98.6 (F) We ight: 192 lbs 03/01/2019 Blood Pressure 1: 134/82 Code: 8480-6 BMI: 23.9 Code: 90110-4 Heart Rate 1: 100 bpm Height: 6'4" Respiratory Rate: 20 bpm SpO2: 96% Tempera ture: 36.9 (C) / 98.4 (F) Weight: 196 lbs 11/18/2018 Blood Pressure 1: 118/70 Code: 8480-6 Heart Rate 1: 101 bpm SpO2: 100% Temperature: 35.9 (C) / 96.7 (F) Weight: 188 lbs 11/09/2018 Blood Pressure 1: 132/80 Code: 8480-6 Heart Rate 1: 103 bpm SpO2: 99% Temperature: 35.7 (C) / 96.3 (F) Weight: 187 lbs 10/13/2018 Blood Pressure 1: 150/98 Code: 8480-6 Heart Rate 1: 87 bpm SpO2: 98% Temperature: 36.0 (C) / 96.8 (F) Weight: 188 lbs 09/23/2018 Blood Pressure 1: 132/80 Code: 8480-6 Heart Rate 1: 95 bpm SpO2: 94% Temperature: 36.1 (C) / 96.9 (F) Weight: 185 lbs 09/06/2018 Blood Pressure 1: 138/70 Code: 8480-6 BMI: 22.6 Code: 07140-9 Heart Rate 1: 97 bpm Height: 6'4" SpO2: 97% Temperature: 35.8 (C) / 96.4 (F) Weight: 186 lbs 07/15/2018 Blood Pressure 1: 112/82 Code: 8480-6 Heart Rate 1: 95 bpm Respiratory Rate: 18 bpm SpO2: 97% Temperature: 36.2 (C) / 97.2 (F) We ight: 189 lbs 2018 Blood Pressure 1: 104/60 Code: 8480-6 Heart Rate 1: 88 bpm Respiratory Rate: 18 bpm SpO2: 96% Temperature: 36.0 (C) / 96.8 (F) We ight: 179 lbs 04/14/2018 Blood Pressure 1: 110/60 Code: 8480-6 Heart Rate 1: 92 bpm Respiratory Rate: 18 bpm SpO2: 96% Temperature: 35.7 (C) / 96.3 (F) We ight: 175 lbs 03/18/2018 Blood Pressure 1: 142/80 Code: 8480-6 BMI: 20.9 Code: 05213-7 Heart Rate 1: 108 bpm Height: 6'4" Respiratory Rate: 20 bpm SpO2: 97% Tempera ture: 36.6 (C) / 97.9 (F) Weight: 172 lbs 01/26/2018 Blood Pressure 1: 130/82 Code: 8480-6 Heart Rate 1: 98 bpm Respiratory Rate: 18 bpm SpO2: 99% Temperature: 35.7 (C) / 96.3 (F) We ight: 175 lbs 12/22/2017 Blood Pressure 1: 124/68 Code: 8480-6 BMI: 22.3 Code: 76057-8 Heart Rate 1: 100 bpm Height: 6'4" Respiratory Rate: 20 bpm SpO2: 98% Tempera ture: 36.7 (C) / 98.0 (F) Weight: 183 lbs 10/06/2017 Blood Pressure 1: 130/86 Code: 8480-6 BMI: 21.1 Code: 97617-7 Heart Rate 1: 92 bpm Height: 6'4" Respiratory Rate: 18 bpm SpO2: 98% Tempera ture: 36.9 (C) / 98.5 (F) Weight: 173 lbs 02/03/2017 Blood Pressure 1: 144/92 Code: 8480-6 BMI: 20.8 Code: 21789-5 Heart Rate 1: 88 bpm Height: 6'4" Respiratory Rate: 20 bpm SpO2: 97% Tempera ture: 36.7 (C) / 98.1 (F) Weight: 171 lbs 11/25/2016 Blood Pressure 1: 126/84 Code: 8480-6 Heart Rate 1: 76 bpm Respiratory Rate: 20 bpm SpO2: 96% Temperature: 36.9 (C) / 98.4 (F) We ight: 170 lbs 11/14/2016 Blood Pressure 1: 126/82 Code: 8480-6 BMI: 20.7 Code: 07387-5 Heart Rate 1: 86 bpm Height: 6'4" Respiratory Rate: 18 bpm SpO2: 96% Tempera ture: 35.8 (C) / 96.5 (F) Weight: 170 lbs 04/02/2016 Blood Pressure 1: 124/78 Code: 8480-6 Heart Rate 1: 88 bpm Respiratory Rate: 24 bpm SpO2: 97% Temperature: 36.1 (C) / 97.0 (F) We ight: 161 lbs 11/29/2015 Blood Pressure 1: 124/68 Code: 8480-6 BMI: 19.2 Code: 30080-6 Heart Rate 1: 94 bpm Height: 6'4" Respiratory Rate: 18 bpm SpO2: 97% Tempera ture: 36.1 (C) / 97.0 (F) Weight: 158 lbs 06/27/2015 Blood Pressure 1: 128/78 Code: 8480-6 BMI: 18.7 Code: 44038-2 Heart Rate 1: 72 bpm Height: 6'4" Respiratory Rate: 22 bpm SpO2: 98% Tempera ture: 35.9 (C) / 96.6 (F) Weight: 154 lbs 05/24/2015 Blood Pressure 1: 112/78 Code: 8480-6 BMI: 19.7 Code: 56361-4 Heart Rate 1: 78 bpm Height: 6'4" Respiratory Rate: 24 bpm SpO2: 97% Tempera ture: 36.4 (C) / 97.6 (F) Weight: 162 lbs Functional Status No Functional Status data Reason For Visit Reason For Visit Effective Dates Notes follow up 07/05/2019 follow up 05/17/2019 follow up 05/02/2019 follow up 04/25/2019 post surgery for dvt follow up 04/11/2019 rash 03/01/2019 pruritus 11/18/2018 wound on left foot/a nkle erythema 11/09/2018 wound left medial si de of ankle edema 10/13/2018 right lower extremit y. Patient states the swelling started 2 weeks ago low back pain 09/23/2018 started about 2 days ago dysphagia 09/06/2018 Vomiting during slee p ~generic 07/15/2018 jock itch follow up 2018 follow up 04/14/2018 on his toe cellulitis 03/18/2018 follow up 01/26/2018 hospital follow up follow up 12/22/2017 fatigue 10/06/2017 follow up 02/03/2017 Hospital fwup follow up 11/25/2016 ~generic 11/14/2016 Family History of Le ukemia and would like checked for this cough 04/02/2016 cough 11/29/2015 follow up 06/27/2015 1 month ~generic 05/24/2015 Establishing care Encounters Encounter Performer Location Codes Date () OFFICE/OUTPATIENT VISIT EST Diagnosis: Other specified local infections of the skin and subcutaneous tissue[ICD10: L08.89] Diagnosis: DM w/o complication type II, uncontrolled[ICD10: E11.65] Diagnosis: Right leg DVT[ICD10: I82.401] Janneth SHRESTHA DO [facility] CPT-4: 11179 07/05/2019 ([id number]) OFFICE/OUTPATIENT VISIT EST Diagnosis: 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, implant, or graft[ICD10: T85.818A] Diagnosis: DM w/o complication type II, uncontrolled[ICD10: E11.65] Janneth MERINOLINE MeetLisandra CANDACE CHILD [facility] CPT-4: 02731 05/17/2019 ([id number]) OFFICE/OUTPATIENT VISIT EST Diagnosis: Acute dermatitis[ICD10: L30.9] Diagnosis: DM w/o complication type II, uncontrolled[ICD10: E11.65] Diagnosis: Right leg DVT[ICD10: I82.401] Janneth Shrestha JANNETH MeetLisandra C[facility]ILD [facility] CPT-4: 38347 05/02/2019 ([id number]) OFFICE/OUTPATIENT VISIT EST Diagnosis: DM w/o complication type II, uncontrolled[ICD10: E11.65] Diagnosis: Allergic dermatitis[ICD10: L23.9] Diagnosis: Right leg DVT[ICD10: I82.401] Diagnosis: Paroxysmal atrial fibrillation[ICD10: I48.0] Diagnosis: Right calf pain[ICD10: M79.661] Janneth Shrestha JANNETH MeetLisandra CANDACE [employer] [facility] CPT-4: 23203 04/25/2019 ([id number]) OFFICE/OUTPATIENT VISIT EST Diagnosis: DM w/o complication type II, uncontrolled[ICD10: E11.65] Diagnosis: 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, implant, or graft[ICD10: T85.818A] Diagnosis: Essential hypertension[ICD10: I10] Janneth RAY MeetLisandra CANDACE [employer] [facility] CPT-4: 61809 04/11/2019 ([id number]) OFFICE/OUTPATIENT VISIT EST Diagnosis: Sinus tachycardia[ICD10: R00.0] Diagnosis: Folliculitis[ICD10: L73.9] Janneth De Jesus ZHANNA HARDY [employer] [facility] CPT-4: 95508 03/01/2019 ([id number]) OFFICE/OUTPATIENT VISIT EST Diagnosis: Cellulitis of left lower limb[ICD10: L03.116] Diagnosis: Tendinitis of left peroneus longus tendon[ICD10: M76.72] Janneth WARD [facility]isandra [facility] CPT-[facility]: 97302 11/18/2018 ([id number]) OFFICE/OUTPATIENT VISIT EST Diagnosis: Cellulitis of left foot[ICD10: L03.116] Diagnosis: Spontaneous ecchymoses[ICD10: R23.3] Diagnosis: Venous insufficiency (chronic) (peripheral)[ICD10: I87.2] Diagnosis: Mixed hyperlipidemia[ICD10: E78.2] Vania RAY Faction SkisLisandra [facility] CPT-4: 93203 11/09/2018 ([id number]) OFFICE/OUTPATIENT VISIT EST Diagnosis: Venous insufficiency (chronic) (peripheral)[ICD10: I87.2] Diagnosis: Cellulitis of left lower limb[ICD10: L03.116] Diagnosis: Pain in right foot[ICD10: M79.671] Vania RAY Faction SkisLisandra [facility] CPT-4: 21588 10/13/2018 ([id number]) OFFICE/OUTPATIENT VISIT EST Diagnosis: Low back pain[ICD10: M54.5] Vania Taylor [facility] CPT-4: 20115 09/23/2018 ([id number]) OFFICE/OUTPATIENT VISIT EST Diagnosis: Gastro-esophageal reflux disease without esophagitis[ICD10: K21.9] Diagnosis: Dysphagia, pharyngoesophageal phase[ICD10: R13.14] Janneth [facility] CPT-4: 17673 09/06/2018 ([id number]) OFFICE/OUTPATIENT VISIT EST Diagnosis: Tinea corporis[ICD10: B35.4] Vania [facility] CPT-4: 41764 07/15/2018 ([id number]) OFFICE/OUTPATIENT VISIT EST Diagnosis: Cellulitis of left toe[ICD10: L03.032] Diagnosis: Mixed hyperlipidemia[ICD10: E78.2] Mandy MERINOGINNY RAY Faction SkisLisandra CLARK [employer] [facility] CPT-4: 75942 2018 OFFICE/OUTPATIENT VISIT EST Diagnosis: Cellulitis of left toe[ICD10: L03.032] Diagnosis: Unspecified disturbances of skin sensation[ICD10: R20.9] Mandy SHRESTHA [facility] CPT-4: 92518 04/14/2018 ([id number]) OFFICE/OUTPATIENT VISIT EST Diagnosis: Cellulitis of left toe[ICD10: L03.032] Diagnosis: Insomnia, unspecified[ICD10: G47.00] Vania SHRESTHA [facility] CPT-4: 61091 03/18/2018 ([id number]) OFFICE/OUTPATIENT VISIT EST Diagnosis: Other postprocedural complications and disorders of the circulatory system, not elsewhere classified[ICD10: I97.89] Diagnosis: Rash and other nonspecific skin eruption[ICD10: R21] Diagnosis: Pain in right leg[ICD10: M79.604] Vania SHRESTHA [facility] CPT-4: 91715 01/26/2018 ([id number]) OFFICE/OUTPATIENT VISIT EST Diagnosis: Other postprocedural complications and disorders of the circulatory system, not elsewhere classified[ICD10: I97.89] Diagnosis: Cellulitis of right lower limb[ICD10: L03.115] Vania SHRESTHA DO [facility] CPT-4: 79379 12/22/2017 ([id number]) OFFICE/OUTPATIENT VISIT EST Diagnosis: Acute sinusitis, unspecified[ICD10: J01.90] Diagnosis: Unspecified disturbances of skin sensation[ICD10: R20.9] Vania SHRESTHA [facility] CPT-4: 27708 10/06/2017 ([id number]) OFFICE/OUTPATIENT VISIT EST Diagnosis: Primary insomnia[ICD10: F51.01] Diagnosis: Pain in left shoulder[ICD10: M25.512] Diagnosis: Poisoning by other parasympatholytics [anticholinergics and antimuscarinics] and spasmolytics, accidental (unintentional), sequela[ICD10: T44.3X1S] Janneth SHRESTHA [facility] CPT-4: 62137 02/03/2017 OFFICE/OUTPATIENT VISIT EST Diagnosis: Insomnia, unspecified[ICD10: G47.00] Diagnosis: Constipation, unspecified[ICD10: K59.00] Diagnosis: Spontaneous ecchymoses[ICD10: R23.3] Diagnosis: Pain in left foot[ICD10: M79.672] Vania SHRESTHA [employer] [facility] CPT-4: 43222 11/25/2016 OFFICE/OUTPATIENT VISIT EST Diagnosis: Insomnia, unspecified[ICD10: G47.00] Diagnosis: Constipation, unspecified[ICD10: K59.00] Diagnosis: Spontaneous ecchymoses[ICD10: R23.3] Diagnosis: Other specified local infections of the skin and subcutaneous tissue[ICD10: L08.89] Vania SHRESTHA [employer] [facility] CPT-4: 99 213 11/14/2016 ([id number]) OFFICE/OUTPATIENT VISIT EST Diagnosis: Acute upper respiratory infection, unspecified[ICD10: J06.9] Ester SHRESTHA [employer] [facility] CPT-4: 26875 04/02/2016 ([id number]) OFFICE/OUTPATIENT VISIT EST Diagnosis: Acute upper respiratory infection, unspecified[ICD10: J06.9] Ester Dsouza AMBER [employer] [facility] CPT-4: 31492 11/29/2015 ([id number]) OFFICE/OUTPATIENT VISIT EST Diagnosis: Pain in thoracic spine[ICD10: M54.6] Diagnosis: Paresthesia of skin[ICD10: R20.2] Diagnosis: Dysphagia, unspecified[ICD10: R13.10] Ester CLARK [employer] [facility] CPT-4: 09082 06/27/2015 ([id number]) OFFICE/OUTPATIENT VISIT NEW Diagnosis: Pain in left leg[ICD10: M79.605] Diagnosis: Male erectile dysfunction, unspecified[ICD10: N52.9] Diagnosis: Dysphagia, unspecified[ICD10: R13.10] Ester SHRESTHA [facility] CPT-4: 68417 05/24/2015 Plan of Care Planned Activity Notes Codes Status Date Visit Diagnosis Plan: Right leg DVT Discussion: Releas e to work with no restrictions ICD-9 : 453.40 ICD-10 : I82.401 07/05/2019 Visit Diagnosis Plan: DM w/o complication type II, unc ontrolled Discussion: Will plan on lab and fwup end of July ICD-9 : 250.02 ICD-10 : E11.65 07/05/2019 Visit Diagnosis Plan: Other specified lo gisel infections of the skin and subcutaneous tissue Discussion: Keflex and notify if worseni ng ICD-9 : 686.8 ICD-10 : L08.89 07/05/2019 Appointment: Janneth Shrestha [facility]el: [facility] [place] [place] [facility] 07/05/2019 Patient Education: cephalexin- [employer] Coupon [id number] https://www.ReDoc Software/Zoomingo/resources/getResource/61/[email or web address]-i1 Completed 07/05/2019 Visit Diagnosis Plan: DM w/o complication type II, unc ontrolled Discussion: Increase metformin to 1000mg po BID Accuchecks BID Fwup 2mos with lab ICD-9 : 250.02 ICD-10 : E11.65 05/17/2019 Visit Diagnosis Plan: 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, implan t, or graft Discussion: Patient has not been released to return to work by CV surgery yet but I am okay for return to work as soon as they release him ICD-9 : 996.70 ICD-10 : T85.818A 05/17/2019 Appointment: Janneth Shrestha WPtel: [address] [place], [place] [address] [place] FOLLOW UP 05/17/2019 Patient Education: Metformin Patient Savings Message Alert Completed 05/17/2019 Visit Diagnosis Plan: Acute dermatitis Discussion: Fin kalin prednisone then if rash worsens will need to consider allergic reaction to one of new meds llike Xarelto, amiodarone or metformin ICD-9 : 692.9 ICD-10 : L30.9 05/02/2019 Visit Diagnosis Plan: Right leg DVT Discussion: Starts PTon Thursday ICD-9 : 453.40 ICD-10 : I82.401 05/02/2019 Visit Diagnosis Plan: DM w/o complication type II, unc ontrolled Discussion: Continue metformin and accuchecks--BS should come down after off steroids ICD-9 : 250.02 ICD-10 : E11.65 05/02/2019 Appointment: Janneth Shrestha WPtel: [address] [facility] [place] [place] FOLLOW [facility] 05/02/2019 Patient Education: metoprolol succinate- [employer] Co upon [id number] https://www.Re[employer] Software/Zoomingo/resources/getResource/61/62100ut5-[email or web address]-[email or web address] Completed 05/02/2019 Visit Diagnosis Plan: Paroxysmal atrial fibrillation D iscussion: Now in NSR ICD-9 : 427.31 ICD-10 : I48.0 04/25/2019 Visit Diagnosis Plan: Allergic dermatitis Discussion: Prednisone--warned of elevated BS ICD-9 : 692.9 ICD-10 : L23.9 04/25/2019 Visit Diagnosis Plan: Right calf pain Discussion: Will likely need PT but sees surgery tomorrow ICD-9 : 729.5 ICD-10 : M79.661 04/25/2019 Visit Diagnosis Plan: Right leg DVT Discussion: S/P romo luba Sees Dr. Cortez tomorrow ICD-9 : 453.40 ICD-10 : I82.401 04/25/2019 Visit Diagnosis Plan: DM w/o complication type II, unc ontrolled Discussion: Improving with increased dose of metformin ICD-9 : 250.02 ICD-10 : E11.65 04/25/2019 Appointment: Janneth Shrestha WPtel: [facility] [place] [place] FOLLOW [facility] 04/25/2019 Patient Education: Metformin Patient Savings Message Alert Completed 04/25/2019 Patient Education: prednisone- [employer] Coupon [id number] https://www.ReDoc Software/Zoomingo/resources/getResource/61/2nw44sb0-q0cp-1n95-ot Completed 04/25/2019 Visit Diagnosis Plan: DM w/o complication type II, unc ontrolled Discussion: Start Metformin ER 500mg po daily Accuchecks BID Long discussion about diet--patient drinks regular Mtn Dew all day long and eats sweets including candy daily Follow Up: 3 weeks ICD-9 : 250.02 ICD-10 : E11.65 04/11/2019 Visit Diagnosis Plan: Essential hypertension Discussio n: Increase metoprolol to 50mg daily for both BP and pulse ICD-9 : 401.9 ICD-10 : I10 04/11/2019 Visit Diagnosis Plan: 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, implan t, or graft Discussion: S/P removal of graft and stent placement by Dr. Allen--on xarelto ICD-9 : 996.70 ICD-10 : T85.818A 04/11/2019 Appointment: Janneth Shrestha WPtel: [facility] [place] [place] [facility]LL[facility] 04/11/2019 Patient Education: metoprolol succinate- [employer] Co upon [id number] https://www.ReDoc Software/Zoomingo/resources/getResource/61/qk792028-49bo-9z37-14 Completed 04/11/2019 Patient Education: Metformin Patient Savings Message Alert Completed 04/11/2019 Patient Education: cephalexin- [employer] Coupon [phone] https://www.ReDoc Software/Zoomingo/resources/getResource/61/0nws4671-9b0j-8449-sz Completed 04/11/2019 Visit Diagnosis Plan: Folliculitis Discussion: Bactrim and topical bactroban ICD-9 : 704.8 ICD-10 : L73.9 03/01/2019 Visit Diagnosis Plan: Sinus tachycardia Discussion: St art low dose metoprolol ER 25mg daily Monitor pulse Sees Cardiology next month ICD-9 : 427.89 ICD-10 : R00.0 03/01/2019 Appointment: Janneth Shrestha WPtel: [address] [place] [address] [place] FOLLOW UP 03/01/2019 Patient Education: mupirocin- [employer] Coupon [id number] [id number] https://www.ReDoc Software/Zoomingo/resources/getResource/61/el362cs8-95jz-503r-di Completed 03/01/2019 Appointment: Janneth Shrestha WPtel: [address] [place] [address] [place] CANCELED 12/20/2018 Visit Diagnosis Plan: Cellulitis of left lower limb Di scussion: Finish clindamycin and then start doxycycline Continue probiotic Patient will fwup in 3 weeks as he will be leaving for work tomorrow and not be back for 3 weeks ICD-9 : 682.6 ICD-10 : L03.116 11/18/2018 Visit Diagnosis Plan: Tendinitis of left peroneus long us tendon Discussion: Referral to ortho to assess MRI and possible tear in tendon--possibly chronic ICD-9 : 727.06 ICD-10 : M76.72 11/18/2018 Appointment: Vania García [address] [place], [place] [address] US CANCELED 11/18/2018 Appointment: Janneth Shrestha WPtel: [address] [facility] [place] [place] FOLLOW UP 11/18/2018 Patient Education: doxycycline monohydrate- [employer] Coupon [id number] https://www.ReDoc Software/samplemd/resources/getResource/61/dxs36373-r0p8-12i2-7b Completed 11/18/2018 Patient Education: prednisone- [employer] Coupon [phone] https://www.ReDoc Software/samplemd/resources/getResource/61/94zp0m2m-5qr8-3297-ra Completed 11/18/2018 Care Plan: Referral Order SNOMED-CT : 30 [id number] Pending 11/18/2018 Visit Diagnosis Plan: Venous insufficiency (chronic) ( peripheral) Discussion: follow up with next week ICD-9 : 459.81 ICD-10 : I87.2 11/09/2018 Visit Diagnosis Plan: Mixed hyperlipidemia Discussion: updated labs ordered ICD-9 : 272.4 ICD-10 : E78.2 11/09/2018 Visit Diagnosis Plan: Cellulitis of left foot Discussi on: patient quit going to wound care after one visit because he felt as if they didn't do anything. educated patient that wound care if a process and will take multiple visits for wound to be treated. reddened area was marked with marker. given rocephin in office and clindamycin was prescribed to take as directed. patient is going on the road tomorrow for his [employer] job and won't be back until 11/17. instructed patient that if reddened area goes outside of line tomorrow, he needs to be evaluated in an ED whether it be [place] or wherever he's traveling. discussed the risk of bone involvement and the importance of having it evaluated if worsens. follow up in office when he returns though if no worsening symptoms. ICD-9 : 682.7 ICD-10 : L03.116 11/09/2018 Visit Diagnosis Plan: Spontaneous ecchymoses Discussio n: cbc, cmp, pt/inr, ptt ordered to rule out acute issues. ICD-9 : 782.7 ICD-10 : R23.3 11/09/2018 Appointment: Vania García [address] [place], [place] [id number] ACUTE ILLNESS 11/09/2018 Patient Education: clindamycin HCl- [employer] Coupon [id number] https://www.Zoomingo.JJS Media/samplemd/resources/getResource/61/66dj81d6-sl66-4uz9-2m Completed 11/09/2018 Appointment: Janneth Shrestha WPtel: [address] [facility] [place] [place] CANCELED 10/19/2018 Visit Diagnosis Plan: Pain in right foot Discussion: u ltrasound ordered to rule out embolus due to patient's hx. instructed patient that he will most likely need to go back to see dr. cortez. ICD-9 : 729.5 ICD-10 : M79.671 10/13/2018 Visit Diagnosis Plan: Cellulitis of left lower limb Di scussion: keflex bid for 10 days to cover infection. will refer to outpatient wound care due to patient's chronic insufficiency and symptoms. ICD-9 : 682.6 ICD-10 : L03.116 10/13/2018 Appointment: Vania García [address] [place], [place] [id number] Patient cant pay copay till when he gets paid. ACUTE ILLNESS 10/13/2018 Visit Diagnosis Plan: Low back pain Discussion: 60 mg toradol given in office. medrol pack prescribed to start taking tomorrow. continue with heat to area and perform low back pain exercises. discussed with patient to go to ed if he devel ops any incontinence with bowel/bladder or worsening pain. call office if no improvement and may need imaging and possible PT. patient verbalized understanding ICD-9 : 724.2 ICD-10 : M54.5 09/23/2018 Appointment: Vania García [address] [place] [address] ACUTE ILLNESS 09/23/2018 Patient Education: Medrol (Brenden)- OptimizeRX Coupon [phone] https://www.ReDoc Software/samplemyWebRoom/resources/getResource/61/jugc651a-4691-87i2-49 Completed 09/23/2018 Visit Diagnosis Plan: Dysphagia, pharyngoesophageal ph ase Discussion: Referral for EGD ICD-9 : 787.24 ICD-10 : R13.14 09/06/2018 Visit Diagnosis Plan: Gastro-esophageal reflux disease without esophagitis Discussion: Start omeprazole ICD-9 : 530.81 ICD-10 : K21.9 09/06/2018 Appointment: Janneth Shrestha WPtel: [address] [place], [place] [id number] [place] [address] ACUTE ILLNESS 09/06/2018 Patient Education: omeprazole- Opt[employer]RX Coupon [phone] https://www.ReDoc Software/Zoomingo/resources/getResource/61/133yu205-88k9-967m-24 Completed 09/06/2018 Care Plan: Referral Order SNOMED-CT : 30 [id number] Pending 09/06/2018 Visit Diagnosis Plan: Tinea corporis Discussion: nysta tin to be used bid until rash gone and then an additional 2 days. diflucan every 3 days for 3 doses. keep area clean and dry with no moisturizers. call office if no improvement in 2 weeks or if worsening. ICD-9 : 110.5 ICD-10 : B35.4 07/15/2018 Appointment: Vania García [address] [place], [place] [id number] ACUTE ILLNESS 07/15/2018 Patient Education: nystatin- [employer] Coupon [id number] https://www.ReDoc Software/samplemd/resources/getResource/61/09mhv059-l9no-19ri-0u Completed 07/15/2018 Patient Education: Plavix- OptimizeRX Coupon [id number] https://www.Zoomingo.JJS [employer]/samplemd/resources/getResource/61/44yw4r96-g42o-97zw-84 fa-e319c8177368.pdf Completed 07/15/2018 Patient Education: cyclobenzaprine- [employer]RX Coupon [id number] https://www.ReDoc Software/samplemyWebRoom/resources/getResource/61/47851z9n-7c48-79t6-lw Completed 07/15/2018 Visit Diagnosis Plan: Cellulitis of left toe Discussio n: Much improved. Continue cleansing twice daily with antibacterial soap and water. Apply Bactoban twice daily and keep covered when wearing a shoe. No oral antibiotics needed at this time. Fasting lab work today- CBC, CMP, TSH, lipid. Will call with results. Patient states understanding. ICD-9 : 681.10 ICD-10 : L03.032 2018 Appointment: Mandy Hollins [address] [place] [address] FOLLOW UP 2018 Patient Education: mupirocin- [employer] Coupon [phone] [id number] https://www.ReDoc Software/samplemd/resources/getResource/61/z8zf38d1-8886-9950-1u Completed 2018 Visit Diagnosis Plan: Cellulitis of left toe Discussio n: Rocephin 1 gram- administered in clinic. Doxycycline- start today. Stress keeping feet clean and dry. Wash with antibacterial soap and water. Pat dry. Keep covered with clean bandage when wearing shoes. Advised to wear socks with shoes or slippers. Return for fasting labs and follow up appointment when first available. Patient will be on the road for 2 weeks. ICD-9 : 681.10 ICD-10 : L03.032 04/14/2018 Visit Diagnosis Plan: Unspecified disturbances of skin sensation Discussion: Fasting labs when first available- CBC, CMP, Lipid, TSH ICD-9 : 782.0 ICD-10 : R20.9 04/14/2018 Appointment: [facility] [facility] [facility] 04/14/2018 Visit Diagnosis Plan: Cellulitis of left toe Discussio n: rocephin injection given in office. bactrim prescribed to take as directed. area was cleansed with wound cleanser and covered with telfa and gauze. instructed patient to change daily and place neosporin on it daily. wash with antimicrobial soap daily as well. patient is going to be gone for a month on the road and instructed patient to be seen at an urgent care if no improvement after antibiotics. needs to follow up here in 1 month when he returns from his job though. ICD-9 : 681.10 ICD-10 : L03.032 03/18/2018 Visit Diagnosis Plan: Insomnia, unspecified Discussion : rx of flexeril prescribed for patient. instructed to only take as directed. he verbalized understanding. ICD-9 : 780.52 ICD-10 : G47.00 03/18/2018 Appointment: Vania García [address] [facility] ACUTE ILLNESS 03/18/2018 Patient Education: cyclobenzaprine- Opt[employer]RX Coupon [id number] https://www.Zoomingo.com/samplemd/resources/getResource/61/9814u660-5ml6-451f-k1 Completed 03/18/2018 Visit Diagnosis Plan: Rash and other nonspecific skin eruption Discussion: triamcinolone ordered to be used as directed. ICD-9 : 782.1 ICD-10 : R21 01/26/2018 Visit Diagnosis Plan: Other postprocedur al complications and disorders of the circulatory system, not elsewhere classified Discussion: discussed with dr. shrestha and patient was instructed to contact the [place] [facility] de[facility]. due to uncontrolled pain, continued erythema, patient needs to be re-evaluated by the surgeon. 60 mg toradol given to patient. patient verbalized understanding and voiced he will contact them today for an appointment. ICD-9 : 997.1 ICD-10 : I97.89 01/26/2018 Appointment: [facility] [facility] 01/26/2018 Appointment: Janneth Shrestha WPtel: [address] [facility] 2[facility] NO SHOW 01/06/2018 Visit Diagnosis Plan: Other postprocedur al complications and disorders of the circulatory system, not elsewhere classified Discussion: called dr. cortez's office who were able to get patient in tomorrow at 1300 and patient voiced understanding. patient given 1 gm rocephin in clinic today to help assist with infection. instructed to continue with tramadol prn pain and tylenol prn fever. ICD-9 : 997.1 ICD-10 : I97.89 12/22/2017 Appointment: Vania García [address] [facility] ACUTE ILLNESS 12/22/2017 Visit Diagnosis Plan: Unspecified disturbances of skin sensation Discussion: will start with blood work which he is to come back for in the am fasting to assess for any diabetes/elevated lipids, etc. discussed with patient that even though he "vapes", any form of nicotine constricts the blood vessels and he needs to stop for his health. if labs negative, may need to proceed with AILIN or other testing. discussed importance ot checking feet regularly for any sores or lesions due to risk of reduced healing time. ICD-9 : 782.0 ICD-10 : R20.9 10/06/2017 Visit Diagnosis Plan: Acute sinusitis, unspecified Dis cussion: medrol dose pack prescribed for patient. instructed to take as directed. call later this week if no improvement or worsening symptoms. ICD-9 : 461.9 ICD-10 : J01.90 10/06/2017 Appointment: [facility] García [address] [id number] 10/06/2017 Patient Education: Patient Medication Summary Completed 10/06/2017 Appointment: Vania García [address] [id number] [facility] Follow UP 08/17/2017 Appointment: Vania García [address] [id number] CANCELED 07/03/2017 Appointment: Janneth Shrestha WPtel: [phone] [facility] [place] canceled at 8:05 this morning. CANCELED 0 03/11/2017 Visit Diagnosis Plan: Pain in left shoulder Discussion : Ice, topical muscle rub, ROM If persists will need ortho eval ICD-9 : 719.41 ICD-10 : M25.512 02/03/2017 Visit Diagnosis Plan: Primary insomnia Discussion: No lunesta or sleeping pills due to recent drug overdose Bedtime routine and may increase melatonin to 10mg q HS ICD-9 : 780.52 ICD-10 : F51.01 02/03/2017 Visit Diagnosis Plan: Poisoning by other parasympatholytics [anticholinergics and antimuscarinics] and spasmolytics, accidental (unintentional), sequela Discussion: Psych determined not suicidal or intentional so no fwup scheduled ICD-9 : 909.0 ICD-10 : T44.3X1S 02/03/2017 Appointment: Janneth Shrestha WPtel: [phone] [facility] [facility] Follow Up 02/03/2017 Patient Education: Patient Medication Summary Completed 02/03/2017 Visit Diagnosis Plan: Spontaneous ecchymoses Discussio n: labs wnl. instructed patient on side effects of plavix and aspirin. will continue to monitor. educated on being careful with movements to prevent injuries. ICD-9 : 782.7 ICD-10 : R23.3 11/25/2016 Visit Diagnosis Plan: Constipation, unspecified Discus jaxson: miralax daily was ineffective as well as increasing fiber. samples of trulance were given to pt. instructed to call clinic in 1-2 weeks to inform us of efficacy of medication ICD-9 : 564.00 ICD-10 : K59.00 11/25/2016 Visit Diagnosis Plan: Pain in left foot Discussion: re isabella sent for dr rose registration clerk. ICD-9 : 729.5 ICD-10 : M79.672 11/25/2016 Visit Diagnosis Plan: Insomnia, unspecified Recommenda tions: resolved with lunesta. continue taking as prescribed. ICD-9 : 780.52 ICD-10 : G47.00 11/25/2016 Appointment: Vania García [address] [place], [place] [id number] FOLLOW UP 11/25/2016 Patient Education: Patient Medication Summary Completed 11/25/2016 Visit Diagnosis Plan: Insomnia, unspecified Discussion : lunesta 3 mg q hs ordered to be taken daily to assist with sleep disturbance Follow Up: 2 weeks ICD-9 : 780.52 ICD-10 : G47.00 11/14/2016 Visit Diagnosis Plan: Other specified lo gisel infections of the skin and subcutaneous tissue Recommendations: bactrim DS ordered bid for 10 days to assist with infection. RTC in 2 weeks to assess infection and informed him that he may need I&D of infection if not healed. Follow Up: 2 weeks ICD-9 : 686.8 ICD-10 : L08.89 11/14/2016 Visit Diagnosis Plan: Spontaneous ecchymoses Discussio n: educated on side effects of plavix with increased bleeding risk. will notify patient of results when they arrive. Recommendations: be cautious with activity. CBC, PT/INR, PTT ordered to check bleeding risk ICD-9 : 782.7 ICD-10 : R23.3 11/14/2016 Visit Diagnosis Plan: Constipation, unspecified Recomm endations: Miralax samples given for 2 weeks. instructed on purchasing generic miralax to take daily if effective and take with large amount of water. Diet: Fluids Follow Up: 2 weeks ICD-9 : 564.00 ICD-10 : K59.00 11/14/2016 Appointment: Vania García [address] [place] [address] ACUTE ILLNESS 11/14/2016 Patient Education: Patient Medication Summary Completed 11/14/2016 Visit Diagnosis Plan: Acute upper respiratory infectio n, unspecified Discussion: Rxs as above Continue OTC and supportive meds Encouraged smoking cessation Follow up PRN ICD-9 : 465.9 ICD-10 : J06.9 04/02/2016 Appointment: Ester Grande [address] [facility] ACUTE ILLNESS 04/02/2016 Patient Education: Patient Medication Summary Completed 04/02/2016 Visit Plan: Rxs as above Supportive care reviewed Follow up PRN 11/29/2015 Appointment: Ester Grande [address] [place] [address] 11/27 confirmed~sl ACUTE ILLNESS 11/29/2015 Patient Education: Patient Medication Summary Completed 11/29/2015 Visit Plan: Continue omeprazole Labs reo rdered since patient never did routine - CBC, CMP, Lipids, PSA - also added TSH and b12 to eval his abnormal sensation to feet If labs negative, will refer to podiatry for eval and tx of foot sensation disturbance Xrays of ribs and thoracic spine ordered - suspect mostly muscular involvement, maybe some arthritis - sample of pennsaid given to try topically for off label use for pain 06/27/2015 Appointment: Ester Grande [address] [facility] 06/25 ~ 06/26 phone not on~ FOLLOW UP 06/27/2015 Patient Education: Patient Medication Summary Completed 06/27/2015 Care Plan: X-RAY EXAM RIBS UNI 2 VIEWS L OINC : 11561-1 Pending 06/27/2015 Referral: Héctor Woodard WPtel: [phone] [facility] 05/29 Scheduled with [facility] Appointment Re quested 06/26/2015 Referral: Cameron Khanna WPtel: [phone] [facility] Referral Initiated 06/11/2015 Referral: Marco Antonio Green WPtel: [phone] [id number] 05/30/15 Needs to be there at pre op time per ~ Initiated 06/04/2015 Visit Plan: Will get all necessary refer rals set up - CTS, Uro and G/S Swallow study and routine labs ordered Will further investigate left leg pain with EMG if not cardio related 05/24/2015 Appointment: Ester Grande [address] [facility] NEW PATIENT 05/24/2015 Patient Education: Patient Medication Summary Completed 05/24/2015 Care Plan: Referral Order SNOMED-CT : 30 [id number] Pending 05/24/2015 Care Plan: Referral Order SNOMED-CT : 30 [id number] Pending 05/24/2015 Care Plan: Referral Order SNOMED-CT : 30 [id number] Pending 05/24/2015 Referral: Sudheer Gann WPtel: [address] Referral Appointment Requested Referral: Alfonzo Andujar WPtel: [address] [facility] [place] Referral Initiated Referral: [facility] [address] [id number] [place] Referral Completed Referral: Cameron Khanna WPtel: [phone] [id number] [place] Referral Appointment Requested Referral: Brianna Rose WPtel: [address] [place] [address] [place] Referral Initiated Referral: Héctor Woodard WPtel: [address] [place] [place] [address] [place] [facility] ~sl Initiated Referral: Alfonzo Andujar WPtel: [address] [facility] [place] Referral Appointment Requested Referral: Marco Antonio Green WPtel: [phone] [place] [address] [place] Referral Appointment Requested Instructions Comment . Rxs as above Supportive care reviewed Follow up PRN . Continue omeprazole Labs reordered since patient never did routine - CBC, CMP, Lipids, PSA - also added TSH and b12 to eval his abnormal sensation to feet If labs negative, will refer to podiatry for eval and tx of foot sensation disturbance Xrays of ribs and thoracic spine ordered - suspect mostly muscular involvement, maybe some arthritis - sample of pennsaid given to try topically for off label use for pain . Will get all necessary referrals set u p - CTS, Uro and G/S Swallow study and routine labs ordered Will further investigate left leg pain with EMG if not cardio related Medical Equipment No Medical Equipment data Health Concerns Section Health Concerns data not found Goals Section Goals data not found Interventions Section Interventions data not found Health Status Evaluations/Outcomes Section Health Status Evaluations/Outcomes data not found Advance Directives No Advance Directive data
--- OUTSIDE RECORDS SUMMARY | 2019-08-06 10:21 | XMS REPORT | CCD ---
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 Name Role Phone Janneth Shrestha D.O., PP Unavailable CCM Unavailable Summary Purpose Interface Exchange Insurance Providers Payer name Policy type / Coverage type Covered alliance party ID Effective Begin Date Effective End Date Blue Cross Blue Shield Blue Cross/Blue Shield [id number] Unknown Family History Family History data not found Social History Social History Element Codes Description Effective Dates Marital status Unknown 05/24/2015 Number of children Unknown 2 05/24/2015 Employment Unknown Currently employed 05/24/[address]: 28329078 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 [...] 50 mg tablet,extended release 24 hr RxNorm: 223102 1 Tablet(s) Oral QD 08/01/2019 10/30/2019 Active cephalexin 500 mg tablet RxNorm: 790933 1 Tablet(s) Oral three times a day 07/05/2019 07/12/2019 Active cyclobenzaprine 10 mg tablet RxNorm: 646838 TAKE ONE TA BLET BY MOUTH AT BEDTIME NEEDED 05/20/2019 No Stop Date Active metformin ER 1,000 mg tablet,extended release 24hr RxNorm: 1 587214 1 Tablet(s) Oral two times a day replaces 500mg dose 05/17/2019 11/13/2019 Active [AttnRPh: Saving apply/adjudicate RxGRP:[id number] RxBIN:[id number] RxPCN: ID#:[id number]] ReliOn Prime Test Strips RxNorm: 1 Unit [...] 05/01/2019 Inactive Plavix 75 mg tablet RxNorm: 964231 TAKE ONE TABLET BY MOUTH DAILY 0 04/25/2019 04/26/2019 Inactive Plavix 75 mg tablet RxNorm: 114771 TAKE ONE TABLET BY MOUTH DAILY 0 04/25/2019 04/24/2019 Inactive Xarelto 20 mg tablet RxNorm: 0044053 1 Tablet(s) Oral QD 04/25/2019 0 07/04/2019 Inactive amiodarone 200 mg tablet RxNorm: 119630 1 Tablet(s) Oral QD 020 07/04/2019 Inactive metformin ER 500 mg 24 hr tablet,extended release RxNorm: 18 24720 1 Tablet(s) Oral two times a day 04/25/2019 05/16/2019 Inactive prednisone 20 mg tablet RxNorm: 145822 1 Tablet(s) Oral two jn es a day 04/25/2019 05/01/2019 Inactive aspirin 81 mg tablet,delayed release RxNorm: 516010 1 Tablet(s) Oral QD 04/11/2019 No Stop Date Active pantoprazole 40 mg tablet,delayed release RxNorm: 047261 1 Tabl et(s) Oral QAM 04/11/2019 No Stop Date Active Vitamin C 1,000 mg tablet RxNorm: 060729 1 Tablet(s) Oral QD 2019 No Stop Date Active Xarelto 15 mg tablet RxNorm: 6951594 1 Tablet(s) Oral QD 04/11/2019 0 04/24/2019 Inactive metformin ER 500 mg 24 hr tablet,extended release RxNorm: 18 21867 1 Tablet(s) Oral QD 04/11/2019 04/24/2019 Inactive cephalexin 500 mg capsule RxNorm: 388404 1 Capsule(s) Oral thre e times a day 04/11/2019 04/18/2019 Inactive metoprolol succinate ER 50 mg tablet,extended release 24 hr RxNorm: 667925 1 Tablet(s) Oral QD replaces 25mg dose 04/11/2019 05/01/2019 Inactive cyclobenzaprine 10 mg tablet RxNorm: 791412 TAKE ONE TA BLET BY MOUTH EVERY NIGHT AT BEDTIME NEEDED 03/11/2019 No Stop Date Active mupirocin 2 % topical ointment RxNorm: 101251 Applicati on Topical two times a day 03/01/2019 04/10/2019 Inactive metoprolol succinate ER 25 mg tablet,extended release 24 hr RxNorm: 540268 1 Tablet(s) Oral QD 03/01/2019 04/24/2019 Inactive Bactrim DS 800 mg-160 mg tablet RxNorm: 660425 1 Tablet(s) Oral two times a day 03/01/2019 03/11/2019 Inactive cyclobenzaprine 10 mg tablet RxNorm: 012767 TAKE ONE TA BLET BY MOUTH EVERY NIGHT AT BEDTIME NEEDED 01/10/2019 03/10/2019 Inactive Plavix 75 mg tablet RxNorm: 358618 TAKE ONE TABLET BY MOUTH DAILY 1 03/12/2018 04/24/2019 Inactive omeprazole 40 mg capsule,delayed release RxNorm: 298133 TAKE ONE CAPSULE BY MOUTH EVERY NIGHT AT BEDTIME FOR REFLUX 01/10/2019 05/16/2019 Inactive tramadol 50 mg tablet RxNorm: 615019 1 Tablet(s) Oral f our times a day as needed 01/03/2019 01/03/2019 Inactive doxycycline monohydrate 100 mg capsule RxNorm: 6032381 1 Capsule(s) Oral two times a day 11/22/2018 12/13/2018 Inactive prednisone 20 mg tablet RxNorm: 023312 1 Tablet(s) Oral two jn es a day 11/22/2018 11/29/2018 Inactive Levaquin 750 mg tablet RxNorm: 103913 Tablet(s) Oral 11/18/201802/28 Inactive prednisone 20 mg tablet RxNorm: 809672 1 Tablet(s) Oral two jn es a day 11/18/2018 11/21/2018 Inactive tramadol 50 mg tablet RxNorm: 652421 Tablet(s) Oral 11/18/20182018 Inactive doxycycline monohydrate 100 mg capsule RxNorm: 5632937 1 Capsule(s) Oral two times a day 11/18/2018 11/21/2018 Inactive Plavix 75 mg tablet RxNorm: 942731 TAKE ONE TABLET BY MOUTH DAILY 0 11/10/2018 01/08/2019 Inactive clindamycin HCl 300 mg capsule RxNorm: 754199 1 Capsule (s) Oral three times a day 11/09/2018 11/19/2018 Inactive Keflex 500 mg capsule RxNorm: 066683 1 Capsule(s) PO BID 10/13/2018 0 10/22/2018 Inactive Medrol (Brenden) 4 mg tablets in a dose pack RxNorm: 610994 Tablet(s) take as directed PO 09/23/2018 10/12/2018 Inactive omeprazole 40 mg capsule,delayed release RxNorm: 394070 1 Capsule(s) PO QHS for reflux 09/06/2018 11/04/2018 Inactive Diflucan 150 mg tablet RxNorm: 448265 1 Tablet(s) PO Q72H 07/15/2018 09/05/2018 Inactive cyclobenzaprine 10 mg tablet RxNorm: 901021 1 Tablet(s) PO QHS as needed 07/15/2018 10/12/2018 Inactive nystatin 100,000 unit/gram topical cream RxNorm: 668343 1 Gram( s) TOP BID 07/15/2018 09/05/2018 Inactive Plavix 75 mg tablet RxNorm: 480807 1 Tablet(s) PO QD 07/15/201810/12 Inactive cyclobenzaprine 10 mg tablet RxNorm: 121003 1 Tablet(s) PO QHS as needed 06/10/2018 06/09/2018 Inactive cyclobenzaprine 10 mg tablet RxNorm: 219040 TAKE ONE TA BLET BY MOUTH EVERY NIGHT AT BEDTIME NEEDED 05/10/2018 06/10/2018 Inactive mupirocin 2 % topical ointment RxNorm: 536044 1 Application TOP BID 2018 05/25/2018 Inactive 22 gram cyclobenzaprine 10 mg tablet RxNorm: 829133 1 Tablet(s) PO QHS as needed 04/14/2018 06/09/2018 Inactive doxycycline hyclate 100 mg tablet RxNorm: 8157744 1 Tablet(s) PO BI D 04/14/2018 04/23/2018 Inactive cyclobenzaprine 10 mg tablet RxNorm: 974989 1 Tablet(s) PO QHS as needed 04/07/2018 04/13/2018 Inactive Bactrim DS 800 mg-160 mg tablet RxNorm: 079335 1 Tablet(s) PO BID 0 03/18/2018 03/27/2018 Inactive cyclobenzaprine 10 mg tablet RxNorm: 519579 1 Tablet(s) PO QHS as needed 03/18/2018 04/06/2018 Inactive triamcinolone acetonide 0.1 % topical cream RxNorm: 0675386 APPLY TO AFFECTED AREA(S) TWO TIMES A DAY 02/03/2018 02/12/2018 Inactive triamcinolone acetonide 0.1 % topical cream RxNorm: 7538101 1 Application TOP BID 01/26/2018 02/02/2018 Inactive Medrol (Brenden) 4 mg tablets in a dose pack RxNorm: 164197 TAKE BY MOUTH INSTRUCTED - PER PACKAGE INSTRUCTIONS 12/11/2017 12/16/2017 Inactive Medrol (Brenden) 4 mg tablets in a dose pack RxNorm: 899579 Tablet(s) P O 10/06/2017 12/10/2017 Inactive Lunesta 3 mg tablet RxNorm: 658314 1 Tablet(s) PO QHS 11/25/201608/2016 Inactive Lunesta 3 mg tablet RxNorm: 937196 1 Tablet(s) PO QHS 11/14/201610/2016 Inactive Bactrim DS 800 mg-160 mg tablet RxNorm: 855484 1 Tablet(s) PO BID 0 11/14/2016 11/23/2016 Inactive Epi E-Z Pen 0.3 mg/0.3 mL injection, auto-injector RxNorm: 1 855873 Milliliter(s) IM Use as Directed 06/25/2016 09/05/2018 Inactive amoxicillin 875 mg tablet RxNorm: 858503 1 Tablet(s) PO BID 017 04/11/2016 Inactive prednisone 20 mg tablet RxNorm: 193430 1 Tablet(s) PO BID 04/02/2016 04/06/2016 Inactive azithromycin 250 mg tablet RxNorm: 557010 2 Tablet(s) P O on day one then 1 tab on days 2-5 11/29/2015 11/28/2015 Inactive Medrol (Brenden) 4 mg tablets in a dose pack RxNorm: 372824 Take as directed 11/29/2015 11/13/2016 Inactive meloxicam 15 mg tablet RxNorm: 125233 1 Tablet(s) PO QD 07/02/2015 Inactive Chantix Starting Month Box 0.5 mg (11)-1 mg (42) table ts in dose pack RxNorm: 782965 Tablet(s) PO As Directed 06/20/2015 07/10/2015 Inactive omeprazole 40 mg capsule,delayed release RxNorm: 099810 1 Capsu le(s) PO QD 05/31/2015 11/13/2016 Inactive omeprazole 40 mg capsule,delayed release RxNorm: 088155 1 Capsu le(s) PO QD 05/31/2015 05/30/2015 Inactive Multivitamin And Mineral oral RxNorm: oral No Start Date Active Wellbutrin SR 150 mg tablet,sustained-release RxNorm: 057739 1 Tablet(s) PO BID No Start Date 11/13/2016 Inactive gabapentin 100 mg capsule RxNorm: 459706 1 Capsule(s) PO TID No Sta rt Date 03/17/2018 Inactive Chantix Starting Month Box 0.5 mg (11)-1 mg (42) table ts in dose pack RxNorm: 923667 Tablet(s) PO As Directed No Start Date 06/19/2015 Inactive Eliquis 5 mg tablet RxNorm: 2495801 1 Tablet(s) PO BID No Start Date 03/17/2018 Inactive Lactobacillus acidophilus-Bifidobacterium longum oral RxNorm: oral No Start Date 07/04/2019 Inactive aspirin 325 mg tablet RxNorm: 472486 1 Tablet(s) PO QD No Start Date 11/13/2016 Inactive clindamycin HCl 300 mg capsule RxNorm: 410850 2 Capsule(s) PO Q8H N o Start Date 03/17/2018 Inactive Fish Oil 1,000 mg (120 mg-180 mg) capsule RxNorm: 1 Caps ule(s) PO QD No Start Date 09/05/2018 Inactive aspirin 81 mg tablet RxNorm: 027740 1 Tablet(s) PO QD No Start Date 1 03/28/2017 Inactive Fish Oil 1,000 mg capsule RxNorm: 1 Capsule(s) PO QD No Start Date 11/13/2016 Inactive Baby Aspirin 81 mg chewable tablet RxNorm: 585569 1 Tablet(s) P O BID No Start Date 02/02/2017 Inactive Xarelto 10 mg tablet RxNorm: 5580415 1 Tablet(s) PO QD No Start Date 01/25/2018 Inactive tramadol 50 mg tablet RxNorm: 930864 1-2 Tablet(s) PO Q6H No Start Date 03/17/2018 Inactive meloxicam 15 mg tablet RxNorm: 601492 1 Tablet(s) PO QD No Start Da te 07/01/2015 Inactive Epi E-Z Pen 0.3 mg/0.3 mL injection, auto-injector RxNorm: 1 673344 Milliliter(s) IM Use as Directed No Start Date 06/24/2016 Inactive Plavix 75 mg tablet RxNorm: 424502 1 Tablet(s) PO QD No Start Date Inactive Medication Administered No Medication Administered data Immunizations No Immunization data Results Observation Observation Code Item Item Code Result Date S [facility] Location COMPREHENSIVE METABOLIC 82668 AST 25 U/L 2018 Unknown COMPREHENSIVE METABOLIC 12575 ALT 28 U/L 2018 Unknown COMPREHENSIVE METABOLIC 98582 BUN 13 mg/dL 2018 Unknown COMPREHENSIVE METABOLIC 75535 ALBUMIN 4.2 g/dL 2018 Unknown COMPREHENSIVE METABOLIC 52302 CHLORIDE 104 mmol/L 11/09 Unknown COMPREHENSIVE METABOLIC 58681 Bili Total 0.5 mg/dL 11/09 Unknown COMPREHENSIVE METABOLIC 15338 ALK PHOS 72 U/L 2018 Unknown COMPREHENSIVE METABOLIC 84030 SODIUM 139 mmol/L 11/09 Unknown COMPREHENSIVE METABOLIC 70645 CREATININE 0.98 mg/dL 10/18 Unknown COMPREHENSIVE METABOLIC 72360 CALCIUM 9.1 mg/dL 2018 Unknown COMPREHENSIVE METABOLIC 35979 POTASSIUM 3.7 mmol/L 11/09 Unknown COMPREHENSIVE METABOLIC 31992 Total Protein 7.2 g/dL Unknown COMPREHENSIVE METABOLIC 68063 Glucose 137 mg/dL 2018 Unknown COMPREHENSIVE METABOLIC 00800 Bicarbonate 24 mmol/L 10/18 Unknown COMPREHENSIVE METABOLIC 86569 AGAP 11 mmol/L 2018 Unknown COMPLETE BLOOD COUNT [id number] WBC 4.6 10e9/L 11/10/19 19 Unknown COMPLETE BLOOD COUNT [id number] RBC 4.88 10e12/L 2018 Unknown COMPLETE BLOOD COUNT [id number] HEMOGLOBIN 14.7 g/dL 11/10/19 19 Unknown COMPLETE BLOOD COUNT [id number] HEMATOCRIT 43.7 % 11/10/19 19 Unknown COMPLETE BLOOD COUNT [id number] MCV 89.5 fL 9 Unknown COMPLETE BLOOD COUNT 7730006 MCH 30.1 pg 9 Unknown COMPLETE BLOOD COUNT 4390736 MCHC 33.6 g/dL 9 Unknown COMPLETE BLOOD COUNT 0455798 PLATELET COUNT 179 10e9/L Unknown COMPLETE BLOOD COUNT 8085261 Mean Plt Volume 11.6 fL Unknown COMPLETE BLOOD COUNT 9019895 Neut Auto 55.5 % 9 Unknown COMPLETE BLOOD COUNT 8347831 Lymph Auto 28.7 % 11/10/19 19 Unknown COMPLETE BLOOD COUNT 8334467 Posey Auto 7.9 % 9 Unknown COMPLETE BLOOD COUNT 4439627 RDW 13.2 % 9 Unknown COMPLETE BLOOD COUNT 6335922 Eos Auto 7.7 % 9 Unknown COMPLETE BLOOD COUNT [id number] Baso Auto 0.2 % 9 Unknown COMPLETE BLOOD COUNT 9854999 Neutrophil Abs 2.55 10e9/L Unknown COMPLETE BLOOD COUNT 7841623 Lymphocyte Abs 1.32 10e9/L Unknown COMPLETE BLOOD COUNT [id number] Monocyte Abs 0.36 10e9/L 10/18 Unknown COMPLETE BLOOD COUNT 0603033 Eosinophil Abs 0.35 10e9/L Unknown COMPLETE BLOOD COUNT 7274474 RDW-SD 42.2 fL 9 Unknown COMPLETE BLOOD COUNT [id number] Basophil Abs 0.01 10e9/L 10/18 Unknown LIPID GROUP 39850 Cholesterol 205 mg/dL 11/09/2018 Unkno wn LIPID GROUP 07495 Triglyceride 268 mg/dL 11/09/2018 Unkn own LIPID GROUP 83485 HDL CHOLESTEROL 35 mg/dL 11/09/2018 U nknown LIPID GROUP 84963 Chol/HDL Ratio 5.86 ratio 11/09/2018 U nknown LIPID GROUP 45089 NON-HDL Chol 170 mg/dL 11/09/2018 Unkn own LIPID GROUP 61733 LDL Cholesterol 116 mg/dL 11/09/2018 U nknown PT [id number] PT 12.7 Seconds 11/09/2018 Unknow n PT 2529881 INR 0.9 11/09/2018 Unknown GFR CALC 3571964 GFR Non Afr Amr >60 mL/min 11/09/2018 Un known GFR CALC 6525516 GFR Afr Amr >60 mL/min 11/09/2018 Unknow n ACT PARTIAL THRMBOPLASTIN TIME 50197 PTT 34.0 Seco nds 11/09/2018 Unknown LIPID GROUP 08563 Cholesterol 186 mg/dL 2018 Unkno wn LIPID GROUP 54874 Triglyceride 229 mg/dL 2018 Unkn own LIPID GROUP 81732 HDL CHOLESTEROL 36 mg/dL 2018 U nknown LIPID GROUP 25073 Chol/HDL Ratio 5.17 ratio 2018 U nknown LIPID GROUP 91082 NON-HDL Chol 150 mg/dL 2018 Unkn own LIPID GROUP 12147 LDL Cholesterol 104 mg/dL 2018 U nknown GFR CALC 1050737 GFR Non Afr Amr >60 mL/min 2018 Un known GFR CALC 9686776 GFR Afr Amr >60 mL/min 2018 Unknow n COMPREHENSIVE METABOLIC 92880 AST 23 U/L 2018 Unknown COMPREHENSIVE METABOLIC 17138 ALT 22 U/L 2018 Unknown COMPREHENSIVE METABOLIC 24175 BUN 15 mg/dL 2018 Unknown COMPREHENSIVE METABOLIC 14867 ALBUMIN 4.1 g/dL 2018 Unknown COMPREHENSIVE METABOLIC 97833 CHLORIDE 106 mmol/L 05/06 Unknown COMPREHENSIVE METABOLIC 43396 Bili Total 0.6 mg/dL 05/06 Unknown COMPREHENSIVE METABOLIC 58095 ALK PHOS 61 U/L 2018 Unknown COMPREHENSIVE METABOLIC 26913 SODIUM 141 mmol/L 05/06 Unknown COMPREHENSIVE METABOLIC 11140 CREATININE 0.91 mg/dL 04/17 Unknown COMPREHENSIVE METABOLIC 58084 CALCIUM 9.2 mg/dL 2018 Unknown COMPREHENSIVE METABOLIC 02803 POTASSIUM 3.8 mmol/L 05/06 Unknown COMPREHENSIVE METABOLIC 85513 Total Protein 7.0 g/dL Unknown COMPREHENSIVE METABOLIC 87000 Glucose 97 mg/dL 2018 Unknown COMPREHENSIVE METABOLIC 25213 Bicarbonate 28 mmol/L 04/17 Unknown COMPREHENSIVE METABOLIC 56204 AGAP 7 mmol/L 2018 Unknown THYROID STIMULATING HORMONE 28033 TSH 2.094 uIU/mL 2018 Unknown COMPLETE BLOOD COUNT 9863924 WBC 5.5 10e9/L 05/07/19 19 Unknown COMPLETE BLOOD COUNT 7934804 RBC 4.61 10e12/L 2018 Unknown COMPLETE BLOOD COUNT 7267902 HEMOGLOBIN 13.6 g/dL 05/07/19 19 Unknown COMPLETE BLOOD COUNT [id number] HEMATOCRIT 40.0 % 05/07/19 19 Unknown COMPLETE BLOOD COUNT 7892127 MCV 86.8 fL 9 Unknown COMPLETE BLOOD COUNT 4455592 MCH 29.5 pg 9 Unknown COMPLETE BLOOD COUNT 3433119 MCHC 34.0 g/dL 9 Unknown COMPLETE BLOOD COUNT 3517035 PLATELET COUNT 197 10e9/L Unknown COMPLETE BLOOD COUNT 0484335 Mean Plt Volume 10.8 fL Unknown COMPLETE BLOOD COUNT 4510910 Neut Auto 49.6 % 9 Unknown COMPLETE BLOOD COUNT 6180640 Lymph Auto 36.8 % 05/07/19 19 Unknown COMPLETE BLOOD COUNT 3297627 Posey Auto 8.1 % 9 Unknown COMPLETE BLOOD COUNT 7457224 RDW 15.3 % 9 Unknown COMPLETE BLOOD COUNT 6308395 Eos Auto 5.3 % 9 Unknown COMPLETE BLOOD COUNT 9159959 Baso Auto 0.2 % 9 Unknown COMPLETE BLOOD COUNT 9153147 Neutrophil Abs 2.73 10e9/L Unknown COMPLETE BLOOD COUNT 1372309 Lymphocyte Abs 2.02 10e9/L Unknown COMPLETE BLOOD COUNT 1356568 Monocyte Abs 0.45 10e9/L 04/17 Unknown COMPLETE BLOOD COUNT [id number] Eosinophil Abs 0.29 10e9/L Unknown COMPLETE BLOOD COUNT 6345995 RDW-SD 47.9 fL 9 Unknown COMPLETE BLOOD COUNT [id number] Basophil Abs 0.01 10e9/L 04/17 Unknown Procedures Procedure Codes Date CEFTRIAXONE SODIUM INJECTION CPT-4: J0696 11/09/2018 THER/PROPH/DIAG INJ SC/IM CPT-4: 09268 11/09/2018 ROUTINE VENIPUNCTURE CPT-4: 94840 11/09/2018 COMPREHEN METABOLIC PANEL CPT-4: 68399 11/09/2018 COMPLETE CBC W/AUTO DIFF WBC CPT-4: 07458 11/09/2018 LIPID PANEL CPT-4: 91363 11/09/2018 PROTHROMBIN TIME CPT-4: 88988 11/09/2018 THROMBOPLASTIN TIME PARTIAL CPT-4: 33498 11/09/2018 THER/PROPH/DIAG INJ SC/IM CPT-4: 18858 09/23/2018 KETOROLAC TROMETHAMINE INJ CPT-4: J1885 09/23/2018 ROUTINE VENIPUNCTURE CPT-4: 53828 2018 ASSAY THYROID STIM HORMONE CPT-4: 21073 2018 COMPREHEN METABOLIC PANEL CPT-4: 60714 2018 COMPLETE CBC W/AUTO DIFF WBC CPT-4: 78223 2018 LIPID PANEL CPT-4: 73474 2018 CEFTRIAXONE SODIUM INJECTION CPT-4: J0696 04/14/2018 THER/PROPH/DIAG INJ SC/IM CPT-4: 37335 04/14/2018 CEFTRIAXONE SODIUM INJECTION CPT-4: J0696 03/18/2018 THER/PROPH/DIAG INJ SC/IM CPT-4: 69503 03/18/2018 THER/PROPH/DIAG INJ SC/IM CPT-4: 08760 01/26/2018 KETOROLAC TROMETHAMINE INJ CPT-4: J1885 01/26/2018 CEFTRIAXONE SODIUM INJECTION CPT-4: J0696 12/22/2017 THER/PROPH/DIAG INJ SC/IM CPT-4: 60792 12/22/2017 ROUTINE VENIPUNCTURE CPT-4: 54036 11/14/2016 COMPLETE CBC W/AUTO DIFF WBC CPT-4: 46526 11/14/2016 PT/PTT CPT-4: 9390518 11/14/2016 Vital Signs Date Vital 07/05/2019 Blood [...] 1: 134/82 Code: 8480-6 BMI: 23.9 Code: 60242-8 Heart Rate 1: 100 bpm Height: 6'4" [...] 1: 138/70 Code: 8480-6 BMI: 22.6 Code: 72021-5 Heart Rate 1: 97 bpm Height: 6'4" [...] 1: 142/80 Code: 8480-6 BMI: 20.9 Code: 09318-5 Heart Rate 1: 108 bpm Height: 6'4" Respiratory Rate: 20 bpm SpO2: 97% Tempera ture: 36.6 (C) / 97.9 (F) Weight: 172 lbs 01/26/2018 Blood Pressure 1: 130/82 Code: 8480-6 Heart Rate 1: 98 bpm Respiratory Rate: 18 bpm SpO2: 99% Temperature: 35.7 (C) / 96.3 (F) We ight: 175 lbs 12/22/2017 Blood Pressure 1: 124/68 Code: 8480-6 BMI: 22.3 Code: 54157-8 Heart Rate 1: 100 bpm Height: 6'4" Respiratory Rate: 20 bpm SpO2: 98% Tempera ture: 36.7 (C) / 98.0 (F) Weight: 183 lbs 10/06/2017 Blood Pressure 1: 130/86 Code: 8480-6 BMI: 21.1 Code: 76220-9 Heart Rate 1: 92 bpm Height: 6'4" Respiratory Rate: 18 bpm SpO2: 98% Tempera ture: 36.9 (C) / 98.5 (F) Weight: 173 lbs 02/03/2017 Blood Pressure 1: 144/92 Code: 8480-6 BMI: 20.8 Code: 35214-5 Heart Rate 1: 88 bpm Height: 6'4" Respiratory Rate: 20 bpm SpO2: 97% Tempera ture: 36.7 (C) / 98.1 (F) Weight: 171 lbs 11/25/2016 Blood Pressure 1: 126/84 Code: 8480-6 Heart Rate 1: 76 bpm Respiratory Rate: 20 bpm SpO2: 96% Temperature: 36.9 (C) / 98.4 (F) We ight: 170 lbs 11/14/2016 Blood Pressure 1: 126/82 Code: 8480-6 BMI: 20.7 Code: 87186-8 Heart Rate 1: 86 bpm Height: 6'4" Respiratory Rate: 18 bpm SpO2: 96% Tempera ture: 35.8 (C) / 96.5 (F) Weight: 170 lbs 04/02/2016 Blood Pressure 1: 124/78 Code: 8480-6 Heart Rate 1: 88 bpm Respiratory Rate: 24 bpm SpO2: 97% Temperature: 36.1 (C) / 97.0 (F) We ight: 161 lbs 11/29/2015 Blood Pressure 1: 124/68 Code: 8480-6 BMI: 19.2 Code: 33002-9 Heart Rate 1: 94 bpm Height: 6'4" Respiratory Rate: 18 bpm SpO2: 97% Tempera ture: 36.1 (C) / 97.0 (F) Weight: 158 lbs 06/27/2015 Blood Pressure 1: 128/78 Code: 8480-6 BMI: 18.7 Code: 81749-7 Heart Rate 1: 72 bpm Height: 6'4" Respiratory Rate: 22 bpm SpO2: 98% Tempera ture: 35.9 (C) / 96.6 (F) Weight: 154 lbs 05/24/2015 Blood Pressure 1: 112/78 Code: 8480-6 BMI: 19.7 Code: 98027-6 Heart Rate 1: 78 bpm Height: 6'4" [...] care Encounters Encounter Performer Location Codes Date ([id number]) OFFICE/OUTPATIENT VISIT EST Diagnosis: Other specified local infections of the skin and subcutaneous tissue[ICD10: L08.89] Diagnosis: DM w/o complication type II, uncontrolled[ICD10: E11.65] Diagnosis: Right leg DVT[ICD10: I82.401] Janneth SHRESTHA DO [facility] CPT-4: 37516 07/05/2019 ([id number]) OFFICE/OUTPATIENT VISIT EST Diagnosis: 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, implant, or graft[ICD10: T85.818A] Diagnosis: DM w/o complication type II, uncontrolled[ICD10: E11.65] Janneth SHRESTHA DO [facility] CPT-4: 03589 05/17/2019 ([id number]) OFFICE/OUTPATIENT VISIT EST Diagnosis: Acute dermatitis[ICD10: L30.9] Diagnosis: DM w/o complication type II, uncontrolled[ICD10: E11.65] Diagnosis: Right leg DVT[ICD10: I82.401] Janneth SHRESTHA DO [facility] CPT-4: 60536 05/02/2019 ([id number]) OFFICE/OUTPATIENT VISIT EST Diagnosis: DM w/o complication type II, uncontrolled[ICD10: E11.65] Diagnosis: Allergic dermatitis[ICD10: L23.9] Diagnosis: Right leg DVT[ICD10: I82.401] Diagnosis: Paroxysmal atrial fibrillation[ICD10: I48.0] Diagnosis: Right calf pain[ICD10: M79.661] Janneth SHRESTHA [facility] CPT-4: 67645 04/25/2019 ([id number]) OFFICE/OUTPATIENT VISIT EST Diagnosis: DM w/o complication type II, uncontrolled[ICD10: E11.65] Diagnosis: 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, implant, or graft[ICD10: T85.818A] Diagnosis: Essential hypertension[ICD10: I10] Janneth SHRESTHA [employer] [facility] CPT-4: 01858 04/11/2019 ([id number]) OFFICE/OUTPATIENT VISIT EST Diagnosis: Sinus tachycardia[ICD10: R00.0] Diagnosis: Folliculitis[ICD10: L73.9] Janneth HARDY [facility] CPT-4: 59050 03/01/2019 ([id number]) OFFICE/OUTPATIENT VISIT EST Diagnosis: Cellulitis of left lower limb[ICD10: L03.116] Diagnosis: Tendinitis of left peroneus longus tendon[ICD10: M76.72] Janneth SHRESTHA [facility] CPT-4: 68045 11/18/2018 ([id number]) OFFICE/OUTPATIENT VISIT EST Diagnosis: Cellulitis of left foot[ICD10: L03.116] Diagnosis: Spontaneous ecchymoses[ICD10: R23.3] Diagnosis: Venous insufficiency (chronic) (peripheral)[ICD10: I87.2] Diagnosis: Mixed hyperlipidemia[ICD10: E78.2] Vania RAY [employer]Lisandra CLARK [employer] [facility] CPT-4: 73906 11/09/2018 ([id number]) OFFICE/OUTPATIENT VISIT EST Diagnosis: Venous insufficiency (chronic) (peripheral)[ICD10: I87.2] Diagnosis: Cellulitis of left lower limb[ICD10: L03.116] Diagnosis: Pain in right foot[ICD10: M79.671] Vania RAY [employer] AMBER [employer] [facility] CPT-4: 91421 10/13/2018 ([id number]) OFFICE/OUTPATIENT VISIT EST Diagnosis: Low back pain[ICD10: M54.5] Vania Taylor [facility] [employer] [facility] CPT-4: 59850 09/23/2018 ([id number]) OFFICE/OUTPATIENT VISIT EST Diagnosis: Gastro-esophageal reflux disease without esophagitis[ICD10: K21.9] Diagnosis: Dysphagia, pharyngoesophageal phase[ICD10: R13.14] Janneth Sriramchrista NORWOODJANNETH Liza [employer] [facility] CPT-4: 62154 09/06/2018 ([id number]) OFFICE/OUTPATIENT VISIT EST Diagnosis: Tinea corporis[ICD10: B35.4] Vania CLARK [employer] [facility] CPT-4: 41808 07/15/2018 ([id number]) OFFICE/OUTPATIENT VISIT EST Diagnosis: Cellulitis of left toe[ICD10: L03.032] Diagnosis: Mixed hyperlipidemia[ICD10: E78.2] Mandy RAY [employer] AMBER [employer] [facility] CPT-4: 29514 2018 OFFICE/OUTPATIENT VISIT EST Diagnosis: Cellulitis of left toe[ICD10: L03.032] Diagnosis: Unspecified disturbances of skin sensation[ICD10: R20.9] Mandy WARD Meet[employer] AMBER [employer] [facility] CPT-4: 46737 04/14/2018 ([id number]) OFFICE/OUTPATIENT VISIT EST Diagnosis: Cellulitis of left toe[ICD10: L03.032] Diagnosis: Insomnia, unspecified[ICD10: G47.00] Vania SHRESTHA [facility] CPT-4: 62742 03/18/2018 ([id number]) OFFICE/OUTPATIENT VISIT EST Diagnosis: Other postprocedural complications and disorders of the circulatory system, not elsewhere classified[ICD10: I97.89] Diagnosis: Rash and other nonspecific skin eruption[ICD10: R21] Diagnosis: Pain in right leg[ICD10: M79.604] Vania SHRESTHA DO [facility] CPT-4: 18062 01/26/2018 ([id number]) OFFICE/OUTPATIENT VISIT EST Diagnosis: Other postprocedural complications and disorders of the circulatory system, not elsewhere classified[ICD10: I97.89] Diagnosis: Cellulitis of right lower limb[ICD10: L03.115] Vania SHRESTHA Pelago CPT-4: 09124 12/22/2017 ([id number]) OFFICE/OUTPATIENT VISIT EST Diagnosis: Acute sinusitis, unspecified[ICD10: J01.90] Diagnosis: Unspecified disturbances of skin sensation[ICD10: R20.9] Vania SHRESTHA Pelago CPT-4: 49279 10/06/2017 ([id number]) OFFICE/OUTPATIENT VISIT EST Diagnosis: Primary insomnia[ICD10: F51.01] Diagnosis: Pain in left shoulder[ICD10: M25.512] Diagnosis: Poisoning by other parasympatholytics [anticholinergics and antimuscarinics] and spasmolytics, accidental (unintentional), sequela[ICD10: T44.3X1S] Janneth SHRESTHA Pelago CPT-4: 94908 02/03/2017 OFFICE/OUTPATIENT VISIT EST Diagnosis: Insomnia, unspecified[ICD10: G47.00] Diagnosis: Constipation, unspecified[ICD10: K59.00] Diagnosis: Spontaneous ecchymoses[ICD10: R23.3] Diagnosis: Pain in left foot[ICD10: M79.672] [facility] CPT-4: 85351 11/25/2016 OFFICE/OUTPATIENT VISIT EST Diagnosis: Insomnia, unspecified[ICD10: G47.00] Diagnosis: Constipation, unspecified[ICD10: K59.00] Diagnosis: Spontaneous ecchymoses[ICD10: R23.3] Diagnosis: Other specified local infections of the skin and subcutaneous tissue[ICD10: L08.89] [facility] 99 213 11/14/2016 ([id number]) OFFICE/OUTPATIENT VISIT EST Diagnosis: Acute upper respiratory infection, unspecified[ICD10: J06.9] [facility] CPT-4: 41134 04/02/2016 ([id number]) OFFICE/OUTPATIENT VISIT EST Diagnosis: Acute upper respiratory infection, unspecified[ICD10: J06.9] [facility]: 25756 11/29/2015 ([id number]) OFFICE/OUTPATIENT VISIT EST Diagnosis: Pain in thoracic spine[ICD10: M54.6] Diagnosis: Paresthesia of skin[ICD10: R20.2] Diagnosis: Dysphagia, unspecified[ICD10: R13.10] Ester Grande [facility] CPT-4: 61427 06/27/2015 ([id number]) OFFICE/OUTPATIENT VISIT NEW Diagnosis: Pain in left leg[ICD10: M79.605] Diagnosis: Male erectile dysfunction, unspecified[ICD10: N52.9] Diagnosis: Dysphagia, unspecified[ICD10: R13.10] Ester Grande [facility] CPT-4: 52352 05/24/2015 Plan of Care Planned Activity Notes Codes Status Date Visit Diagnosis Plan: Right leg DVT Discussion: Vandana collier to work with no restrictions ICD-9 : 453.40 ICD-10 : I82.401 07/05/2019 Visit Diagnosis Plan: Other specified lo gisel infections of the skin and subcutaneous tissue Discussion: Keflex and notify if worseni ng ICD-9 : 686.8 ICD-10 : L08.89 07/05/2019 Visit Diagnosis Plan: DM w/o complication type II, unc ontrolled Discussion: Will plan on lab and fwup end of July ICD-9 : 250.02 ICD-10 : E11.65 07/05/2019 Patient Education: cephalexin- OptimizeRX Coupon [id number] https://www.Kallik/[facility]/resources/getResource/61/[email or web address]-g7 Completed 07/05/2019 Visit Diagnosis Plan: DM w/o [...] : T85.818A 05/17/2019 Appointment: Janneth Shrestha WPtel: [address] [place], [place] [phone] FOLLOW UP 05/17/2019 Patient Education: Metformin Patient Savings Message Alert Completed 05/17/2019 Visit Diagnosis Plan: Acute dermatitis Discussion: Fin klain prednisone then if rash worsens will need [...] E11.65 05/02/2019 Appointment: Janneth Shrestha WPtel: [phone] [facility] [place] FOLLOW UP 05/02/2019 Patient Education: metoprolol succinate- OptimizeRX Co upon [id number] https://www.Kallik/[facility]/resources/getResource/61/66166lb5-h1n2-319b-f0 Completed 05/02/2019 Visit Diagnosis Plan: Paroxysmal atrial [...] Plan: Right leg DVT Discussion: S/P romo rgery Sees Dr. Cortez tomorrow ICD-9 : 453.40 ICD-10 : I82.401 04/25/2019 Visit Diagnosis Plan: DM w/o complication type II, unc ontrolled Discussion: Improving with increased dose of metformin ICD-9 : 250.02 ICD-10 : E11.65 04/25/2019 Appointment: [facility]rest[phone] [facility] [facility] 04/25/2019 Patient Education: Metformin Patient Savings Message Alert Completed 04/25/2019 Patient Education: prednisone- Opt[employer]RX Coupon [id number] https://www.Kallik/[facility]/resources/getResource/61/1if97vd8-h3ud-0e29-ae Completed 04/25/2019 Visit Diagnosis Plan: DM w/o [...] : T85.818A 04/11/2019 Appointment: Janneth Shrestha WPtel: [address] [place] [address] ACUTE ILLNESS 04/11/2019 Patient Education: metoprolol succinate- OptimizeRX Co upon [id number] https://www.Kallik/[facility]/resources/getResource/61/bu414859-01ya-2e70-79 Completed 04/11/2019 Patient Education: Metformin Patient Savings Message Alert Completed 04/11/2019 Patient Education: cephalexin- OptimizeRX Coupon [id number] https://www.Kallik/[facility]/resources/EachpalResource/61/2sno4470-6z5c-8193-cg Completed 04/11/2019 Visit Diagnosis Plan: Folliculitis Discussion: Bactrim and topical bactroban ICD-9 : 704.8 ICD-10 : L73.9 03/01/2019 Visit Diagnosis Plan: Sinus tachycardia Discussion: St art low dose metoprolol ER 25mg daily Monitor pulse Sees Cardiology next month ICD-9 : 427.89 ICD-10 : R00.0 03/01/2019 Appointment: Janneth Shrestha WPtel: [address] [place] [address] FOLLOW UP 03/01/2019 Patient Education: mupirocin- [employer] Coupon [id number] https://www.Kallik/[facility]/resources/getResource/61/fr906ie7-58nz-520u-od Completed 03/01/2019 Appointment: Janneth Shrestha WPtel: [address] [place], [place] [phone] [place] CANCELED 12/20/2018 Visit Diagnosis Plan: Cellulitis [...] ICD-10 : M76.72 11/18/2018 [facility]ment[facility] [place] [facility] 11/18/2018 Appointment: Janneth Shrestha WPtel: [phone] [facility] [place] FO[facility] 11/18/2018 Patient Education: doxycycline monohydrate- Optimize[employer] Coupon [id number] https://www.Kallik/[facility]/resources/getResource/61/pmk86426-s6g5-32l3-5d Completed 11/18/2018 Patient Education: prednisone- OptimizeRX Coupon [id number] https://www.Kallik/[facility]/resources/getResource/61/71mr4n6g-5mg6-9742-jl Completed 11/18/2018 Care Plan: Referral Order SNOMED-CT : 30 [id number] Pending 11/18/2018 Visit Diagnosis Plan: Venous insufficiency [...] evaluated in an ED whether it be [place] or wherever he's traveling. discussed the risk [...] ICD-10 : R23.3 11/09/2018 Appointment: Vania García [address] [place], [place] [id number] ACUTE ILLNESS 11/09/2018 Patient Education: clindamycin HCl- Optimize[employer] Coupon [id number] https://www.[facility].MSDSonline.com/[facility]/resources/getResource/61/65zv80g8-yz74-9oj7-5f Completed 11/09/2018 Appointment: Janneth Shrestha WPtel: [phone] [id number] CANCELED 10/19/2018 Visit Diagnosis Plan: Pain in [...] ICD-10 : L03.116 10/13/2018 Appointment: Vania García [address] [place], [place] [phone] Patient cant pay copay till when he [...] ICD-10 : M54.5 09/23/2018 Appointment: Vania García [address] [place], [place] [address] ACUTE ILLNESS 09/23/2018 Patient Education: Medrol (Brenden)- OptimizeRX Coupon [phone] https://www.Kallik/[facility]/resources/getResource/61/vlpy068s-5818-59z4-47 Completed 09/23/2018 Visit Diagnosis Plan: Dysphagia, pharyngoesophageal ph ase Discussion: Referral for EGD ICD-9 : 787.24 ICD-10 : R13.14 09/06/2018 Visit Diagnosis Plan: Gastro-esophageal reflux disease without esophagitis Discussion: Start omeprazole ICD-9 : 530.81 ICD-10 : K21.9 09/06/2018 Appointment: aJnneth Shrestha WPtel: [phone] [facility] [facility] ACUTE ILLNESS 09/06/2018 Patient Education: omeprazole- OptimizeRX Coupon [phone] https://www.Kallik/[facility]/resources/getResource/61/742oa261-47w2-382f-39 Completed 09/06/2018 Care Plan: Referral Order SNOMED-CT : 30 8503706 Pending 09/06/2018 Visit Diagnosis Plan: Tinea corporis Discussion: nysta tin to be used bid until rash gone and then an additional 2 days. diflucan every 3 days for 3 doses. keep area clean and dry with no moisturizers. call office if no improvement in 2 weeks or if worsening. ICD-9 : 110.5 ICD-10 : B35.4 07/15/2018 Appointment: Vania Garc[facility] [facility] 07/15/2018 Patient Education: nystatin- OptimizeRX Coupon [id number] https://www.Kallik/[facility]/resources/getResource/61/90lcj572-k6vs-25gy-6g Completed 07/15/2018 Patient Education: Plavix- OptimizeRX Coupon [id number] https://www.Kallik/[facility]/resources/getResource/61/80eb8a36-r91p-86nq-69 fa-q249y1532714.pdf Completed 07/15/2018 Patient Education: cyclobenzaprine- OptimizeRX Coupon [id number] https://www.[facility].MSDSonline.com/samplemd/resources/getResource/61/24947m6h-3i93-84p1-gk Completed 07/15/2018 Visit Diagnosis Plan: Cellulitis of [...] ICD-10 : L03.032 2018 Appointment: Mandy Hollins [facility] [place] [address] FOLLOW UP 2018 Patient Education: mupirocin- OptimizeRX Coupon [id number] [id number] https://www.[facility] [facility].MSDSonline.com/samplemd/resources/getResource/61/f9mm31h3-8261-5367-1q Completed 2018 Visit Diagnosis Plan: Cellulitis of [...] ICD-10 : R20.9 04/14/2018 Appointment: Mandy Hollins [address] [place] [address] FOLLOW UP 04/14/2018 Visit Diagnosis Plan: Cellulitis [...] ICD-10 : G47.00 03/18/2018 Appointment: Vania García [address] [place], [place] [phone] ACUTE ILLNESS 03/18/2018 Patient Education: cyclobenzaprine- OptimizeRX Coupon [id number] https://www.[facility].com/samplemd/resources/getResource/61/1144u955-1yo5-961t-f6 Completed 03/18/2018 Visit Diagnosis Plan: Rash and other nonspecific skin eruption Discussion: triamcinolone ordered to be used as directed. ICD-9 : 782.1 ICD-10 : R21 01/26/2018 Visit Diagnosis Plan: Other postprocedur al complications and disorders of the circulatory system, not elsewhere classified Discussion: discussed with dr. shrestha and patient was instructed to contact the [facility]. due to uncontrolled pain, continued erythema, patient needs to be re-evaluated by the surgeon. 60 mg toradol given to patient. patient verbalized understanding and voiced he will contact them today for an appointment. ICD-9 : 997.1 ICD-10 : I97.89 01/26/2018 [facility]ment[facility] [facility] 01/26/2018 Appointment: Janneth Shrestha WPtel: [phone] [facility] [address] NO SHOW 01/06/2018 Visit Diagnosis Plan: Other [...] ICD-10 : I97.89 12/22/2017 Appointment: Vania García [address] [place], [place] [phone] ACUTE ILLNESS 12/22/2017 Visit Diagnosis Plan: Unspecified [...] ICD-10 : J01.90 10/06/2017 Appointment: Vania García [address] [place], [place] [phone] ACUTE ILLNESS 10/06/2017 Patient Education: Patient Medication Summary Completed 10/06/2017 Appointment: Vania García [address] [place], [place] [phone] ER Follow UP 08/17/2017 Appointment: Vania García [address] [place], [place] [phone] [place] CANCELED 07/03/2017 Appointment: Janneth Shrestha WPtel: [phone] [facility] [place] canceled at 8:05 this morning. 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 ICD-9 : 729.5 ICD-10 : M79.672 11/25/2016 Visit Diagnosis Plan: Insomnia, unspecified Recommenda tions: resolved with lunesta. continue taking as prescribed. ICD-9 : 780.52 ICD-10 : G47.00 11/25/2016 Appointment: Vania García [address] [place], [place] [address] FOLLOW UP 11/25/2016 Patient Education: Patient Medication [...] ICD-10 : K59.00 11/14/2016 Appointment: Vania García [address] [place] [address] ACUTE ILLNESS 11/14/2016 Patient Education: Patient Medication Summary Completed 11/14/2016 Visit Diagnosis Plan: Acute upper respiratory infectio n, unspecified Discussion: Rxs as above Continue OTC and supportive meds Encouraged smoking cessation Follow up PRN ICD-9 : 465.9 ICD-10 : J06.9 04/02/2016 Appointment: Ester Grande [address] [place] [address] ACUTE ILLNESS 04/02/2016 Patient Education: Patient Medication Summary Completed 04/02/2016 Visit Plan: Rxs as above Supportive care reviewed Follow up PRN 11/29/2015 Appointment: Ester Grande [address] [place] [address] 11/27 confirmed~sl ACUTE ILLNESS 11/29/2015 Patient Education: [...] for pain 06/27/2015 Appointment: [facility] [place] 06/25 lm ~sl 06/26 phone not on~sl FOLLOW UP 06/27/2015 Patient Education: Patient Medication Summary Completed 06/27/2015 Care Plan: X-RAY EXAM RIBS UNI 2 VIEWS L OINC : 54774-3 Pending 06/27/2015 Referral: Héctor Woodard [facility]el[phone] [place] 05/29 Scheduled with sena ~sl Appointment Re quested 06/26/2015 Referral: Cameron Khanna WPtel: [phone] [facility] [place] Referral Initiated 06/11/2015 Referral: Marco Antonio Green WPtel: [phone] [id number] [place] 05/30/15 Needs to be there at pre op time per ~sl Initiated 06/04/2015 Visit Plan: Will get all necessary refer rals set up - CTS, Uro and G/S Swallow study and routine labs ordered Will further investigate left leg pain with EMG if not cardio related 05/24/2015 Appointment: Ester Grande [facility] [facility] NEW [facility]IENT 05/24/2015 Patient Education: Patient Medication Summary Completed 05/24/2015 Care Plan: Referral Order SNOMED-CT : 30 [id number] Pending 05/24/2015 Care Plan: Referral Order SNOMED-CT : 30 7839997 Pending 05/24/2015 Care Plan: Referral Order SNOMED-CT : 30 0925930 Pending 05/24/2015 Referral: Sudheer Gann [facility]el[phone] [facility] [place] Referral Appointment Requested Referral: Alfonzo Andujar WPtel: [address] [facility] [place] Referral Initiated Referral: [facility] [address] [id number] [place] Referral Completed Referral: Cameron Khanna WPtel: [phone] [facility] [place] Referral Appointment Requested Referral: RoseBrianna Katherine WPtel: [phone] [address] [place] Referral Initiated Referral: Yamilet Alannavenice WPtel: [phone] [id number] [place] 05/24/15 [facility] office suggested he see another card. ~sl Initiated Referral: Alfonzo Andujar WPtel: [address] [place] [address] [place] Referral Appointment Requested Referral: Marco Antonio Green WPtel: [phone] [place] [address] [place] Referral Appointment Requested Instructions Comment . [...]
--- OUTSIDE RECORDS SUMMARY | 2019-08-06 10:21 | XMS REPORT | CCD ---
Author Author [place] Organization JANNETH SHRESTHA DO [facility] Address [address] [place] [address] Phone Unavailable Care Team Providers Care Braille Typist Name Role Phone Janneth Shrestha D.O., PP Unavailable CCM Unavailable Summary Purpose Interface Exchange Insurance Providers Payer name Policy type / Coverage type Covered libertarian ID Effective Begin Date Effective End Date Blue Cross Blue Shield Blue Cross/Blue Shield [id number] Unknown Family History Family History data not found Social History Social History Element Codes Description Effective Dates Marital status Unknown 05/24/2015 Number of children Unknown 2 05/24/2015 Employment Unknown Currently employed 05/24/[address]: 12931125 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 [...] 50 mg tablet,extended release 24 hr RxNorm: 450702 1 Tablet(s) Oral QD 08/01/2019 10/30/2019 Active cephalexin 500 mg tablet RxNorm: 310395 1 Tablet(s) Oral three times a day 07/05/2019 07/12/2019 Active cyclobenzaprine 10 mg tablet RxNorm: 060426 TAKE ONE TA BLET BY MOUTH AT BEDTIME NEEDED 05/20/2019 No Stop Date Active metformin ER 1,000 mg tablet,extended release 24hr RxNorm: 1 071383 1 Tablet(s) Oral two times a day replaces 500mg dose 05/17/2019 11/13/2019 Active [AttnRPh: Saving apply/adjudicate RxGRP:[id number] RxBIN:[id number] RxPCN: ID#:[id number]] ReliOn Prime Test Strips RxNorm: 1 Unit [...] 05/01/2019 Inactive Plavix 75 mg tablet RxNorm: 022839 TAKE ONE TABLET BY MOUTH DAILY 0 04/25/2019 04/26/2019 Inactive Plavix 75 mg tablet RxNorm: 512854 TAKE ONE TABLET BY MOUTH DAILY 0 04/25/2019 04/24/2019 Inactive Xarelto 20 mg tablet RxNorm: 3514699 1 Tablet(s) Oral QD 04/25/2019 0 07/04/2019 Inactive amiodarone 200 mg tablet RxNorm: 209159 1 Tablet(s) Oral QD 020 07/04/2019 Inactive metformin ER 500 mg 24 hr tablet,extended release RxNorm: 18 49717 1 Tablet(s) Oral two times a day 04/25/2019 05/16/2019 Inactive prednisone 20 mg tablet RxNorm: 076759 1 Tablet(s) Oral two jn es a day 04/25/2019 05/01/2019 Inactive aspirin 81 mg tablet,delayed release RxNorm: 281738 1 Tablet(s) Oral QD 04/11/2019 No Stop Date Active pantoprazole 40 mg tablet,delayed release RxNorm: 821883 1 Tabl et(s) Oral QAM 04/11/2019 No Stop Date Active Vitamin C 1,000 mg tablet RxNorm: 569022 1 Tablet(s) Oral QD 2019 No Stop Date Active Xarelto 15 mg tablet RxNorm: 6508004 1 Tablet(s) Oral QD 04/11/2019 0 04/24/2019 Inactive metformin ER 500 mg 24 hr tablet,extended release RxNorm: 18 11487 1 Tablet(s) Oral QD 04/11/2019 04/24/2019 Inactive cephalexin 500 mg capsule RxNorm: 949060 1 Capsule(s) Oral thre e times a day 04/11/2019 04/18/2019 Inactive metoprolol succinate ER 50 mg tablet,extended release 24 hr RxNorm: 341168 1 Tablet(s) Oral QD replaces 25mg dose 04/11/2019 05/01/2019 Inactive cyclobenzaprine 10 mg tablet RxNorm: 934330 TAKE ONE TA BLET BY MOUTH EVERY NIGHT AT BEDTIME NEEDED 03/11/2019 No Stop Date Active mupirocin 2 % topical ointment RxNorm: 728034 Applicati on Topical two times a day 03/01/2019 04/10/2019 Inactive metoprolol succinate ER 25 mg tablet,extended release 24 hr RxNorm: 587339 1 Tablet(s) Oral QD 03/01/2019 04/24/2019 Inactive Bactrim DS 800 mg-160 mg tablet RxNorm: 567511 1 Tablet(s) Oral two times a day 03/01/2019 03/11/2019 Inactive cyclobenzaprine 10 mg tablet RxNorm: 692771 TAKE ONE TA BLET BY MOUTH EVERY NIGHT AT BEDTIME NEEDED 01/10/2019 03/10/2019 Inactive Plavix 75 mg tablet RxNorm: 149418 TAKE ONE TABLET BY MOUTH DAILY 1 03/12/2018 04/24/2019 Inactive omeprazole 40 mg capsule,delayed release RxNorm: 661837 TAKE ONE CAPSULE BY MOUTH EVERY NIGHT AT BEDTIME FOR REFLUX 01/10/2019 05/16/2019 Inactive tramadol 50 mg tablet RxNorm: 079384 1 Tablet(s) Oral f our times a day as needed 01/03/2019 01/03/2019 Inactive doxycycline monohydrate 100 mg capsule RxNorm: 4726973 1 Capsule(s) Oral two times a day 11/22/2018 12/13/2018 Inactive prednisone 20 mg tablet RxNorm: 152071 1 Tablet(s) Oral two jn es a day 11/22/2018 11/29/2018 Inactive Levaquin 750 mg tablet RxNorm: 822942 Tablet(s) Oral 11/18/201802/28 Inactive prednisone 20 mg tablet RxNorm: 825808 1 Tablet(s) Oral two jn es a day 11/18/2018 11/21/2018 Inactive tramadol 50 mg tablet RxNorm: 166621 Tablet(s) Oral 11/18/20182018 Inactive doxycycline monohydrate 100 mg capsule RxNorm: 0768249 1 Capsule(s) Oral two times a day 11/18/2018 11/21/2018 Inactive Plavix 75 mg tablet RxNorm: 826154 TAKE ONE TABLET BY MOUTH DAILY 0 11/10/2018 01/08/2019 Inactive clindamycin HCl 300 mg capsule RxNorm: 453006 1 Capsule (s) Oral three times a day 11/09/2018 11/19/2018 Inactive Keflex 500 mg capsule RxNorm: 383902 1 Capsule(s) PO BID 10/13/2018 0 10/22/2018 Inactive Medrol (Brenden) 4 mg tablets in a dose pack RxNorm: 670993 Tablet(s) take as directed PO 09/23/2018 10/12/2018 Inactive omeprazole 40 mg capsule,delayed release RxNorm: 853659 1 Capsule(s) PO QHS for reflux 09/06/2018 11/04/2018 Inactive Diflucan 150 mg tablet RxNorm: 043807 1 Tablet(s) PO Q72H 07/15/2018 09/05/2018 Inactive cyclobenzaprine 10 mg tablet RxNorm: 118689 1 Tablet(s) PO QHS as needed 07/15/2018 10/12/2018 Inactive nystatin 100,000 unit/gram topical cream RxNorm: 676470 1 Gram( s) TOP BID 07/15/2018 09/05/2018 Inactive Plavix 75 mg tablet RxNorm: 075342 1 Tablet(s) PO QD 07/15/201810/12 Inactive cyclobenzaprine 10 mg tablet RxNorm: 564390 1 Tablet(s) PO QHS as needed 06/10/2018 06/09/2018 Inactive cyclobenzaprine 10 mg tablet RxNorm: 289151 TAKE ONE TA BLET BY MOUTH EVERY NIGHT AT BEDTIME NEEDED 05/10/2018 06/10/2018 Inactive mupirocin 2 % topical ointment RxNorm: 355599 1 Application TOP BID 2018 05/25/2018 Inactive 22 gram cyclobenzaprine 10 mg tablet RxNorm: 220529 1 Tablet(s) PO QHS as needed 04/14/2018 06/09/2018 Inactive doxycycline hyclate 100 mg tablet RxNorm: 6548021 1 Tablet(s) PO BI D 04/14/2018 04/23/2018 Inactive cyclobenzaprine 10 mg tablet RxNorm: 086894 1 Tablet(s) PO QHS as needed 04/07/2018 04/13/2018 Inactive Bactrim DS 800 mg-160 mg tablet RxNorm: 539895 1 Tablet(s) PO BID 0 03/18/2018 03/27/2018 Inactive cyclobenzaprine 10 mg tablet RxNorm: 856449 1 Tablet(s) PO QHS as needed 03/18/2018 04/06/2018 Inactive triamcinolone acetonide 0.1 % topical cream RxNorm: 4996977 APPLY TO AFFECTED AREA(S) TWO TIMES A DAY 02/03/2018 02/12/2018 Inactive triamcinolone acetonide 0.1 % topical cream RxNorm: 9380702 1 Application TOP BID 01/26/2018 02/02/2018 Inactive Medrol (Brenden) 4 mg tablets in a dose pack RxNorm: 722897 TAKE BY MOUTH INSTRUCTED - PER PACKAGE INSTRUCTIONS 12/11/2017 12/16/2017 Inactive Medrol (Brenden) 4 mg tablets in a dose pack RxNorm: 866505 Tablet(s) P O 10/06/2017 12/10/2017 Inactive Lunesta 3 mg tablet RxNorm: 379927 1 Tablet(s) PO QHS 11/25/201608/2016 Inactive Lunesta 3 mg tablet RxNorm: 627226 1 Tablet(s) PO QHS 11/14/201610/2016 Inactive Bactrim DS 800 mg-160 mg tablet RxNorm: 872261 1 Tablet(s) PO BID 0 11/14/2016 11/23/2016 Inactive Epi E-Z Pen 0.3 mg/0.3 mL injection, auto-injector RxNorm: 1 359767 Milliliter(s) IM Use as Directed 06/25/2016 09/05/2018 Inactive amoxicillin 875 mg tablet RxNorm: 967223 1 Tablet(s) PO BID 017 04/11/2016 Inactive prednisone 20 mg tablet RxNorm: 350206 1 Tablet(s) PO BID 04/02/2016 04/06/2016 Inactive azithromycin 250 mg tablet RxNorm: 108509 2 Tablet(s) P O on day one then 1 tab on days 2-5 11/29/2015 11/28/2015 Inactive Medrol (Brenden) 4 mg tablets in a dose pack RxNorm: 732667 Take as directed 11/29/2015 11/13/2016 Inactive meloxicam 15 mg tablet RxNorm: 128685 1 Tablet(s) PO QD 07/02/2015 Inactive Chantix Starting Month Box 0.5 mg (11)-1 mg (42) table ts in dose pack RxNorm: 994217 Tablet(s) PO As Directed 06/20/2015 07/10/2015 Inactive omeprazole 40 mg capsule,delayed release RxNorm: 737705 1 Capsu le(s) PO QD 05/31/2015 11/13/2016 Inactive omeprazole 40 mg capsule,delayed release RxNorm: 193436 1 Capsu le(s) PO QD 05/31/2015 05/30/2015 Inactive Multivitamin And Mineral oral RxNorm: oral No Start Date Active Wellbutrin SR 150 mg tablet,sustained-release RxNorm: 446972 1 Tablet(s) PO BID No Start Date 11/13/2016 Inactive gabapentin 100 mg capsule RxNorm: 510235 1 Capsule(s) PO TID No Sta rt Date 03/17/2018 Inactive Chantix Starting Month Box 0.5 mg (11)-1 mg (42) table ts in dose pack RxNorm: 543233 Tablet(s) PO As Directed No Start Date 06/19/2015 Inactive Eliquis 5 mg tablet RxNorm: 7894109 1 Tablet(s) PO BID No Start Date 03/17/2018 Inactive Lactobacillus acidophilus-Bifidobacterium longum oral RxNorm: oral No Start Date 07/04/2019 Inactive aspirin 325 mg tablet RxNorm: 689531 1 Tablet(s) PO QD No Start Date 11/13/2016 Inactive clindamycin HCl 300 mg capsule RxNorm: 373807 2 Capsule(s) PO Q8H N o Start Date 03/17/2018 Inactive Fish Oil 1,000 mg (120 mg-180 mg) capsule RxNorm: 1 Caps ule(s) PO QD No Start Date 09/05/2018 Inactive aspirin 81 mg tablet RxNorm: 272361 1 Tablet(s) PO QD No Start Date 1 03/28/2017 Inactive Fish Oil 1,000 mg capsule RxNorm: 1 Capsule(s) PO QD No Start Date 11/13/2016 Inactive Baby Aspirin 81 mg chewable tablet RxNorm: 688380 1 Tablet(s) P O BID No Start Date 02/02/2017 Inactive Xarelto 10 mg tablet RxNorm: 8284221 1 Tablet(s) PO QD No Start Date 01/25/2018 Inactive tramadol 50 mg tablet RxNorm: 905272 1-2 Tablet(s) PO Q6H No Start Date 03/17/2018 Inactive meloxicam 15 mg tablet RxNorm: 479526 1 Tablet(s) PO QD No Start Da te 07/01/2015 Inactive Epi E-Z Pen 0.3 mg/0.3 mL injection, auto-injector RxNorm: 1 536148 Milliliter(s) IM Use as Directed No Start Date 06/24/2016 Inactive Plavix 75 mg tablet RxNorm: 049907 1 Tablet(s) PO QD No Start Date Inactive Medication Administered No Medication Administered data Immunizations No Immunization data Results Observation Observation Code Item Item Code Result Date S smallpox hospital Location COMPREHENSIVE METABOLIC 64838 AST 25 U/L 2018 Unknown COMPREHENSIVE METABOLIC 44396 ALT 28 U/L 2018 Unknown COMPREHENSIVE METABOLIC 76986 BUN 13 mg/dL 2018 Unknown COMPREHENSIVE METABOLIC 82488 ALBUMIN 4.2 g/dL 2018 Unknown COMPREHENSIVE METABOLIC 93364 CHLORIDE 104 mmol/L 11/09 Unknown COMPREHENSIVE METABOLIC 84494 Bili Total 0.5 mg/dL 11/09 Unknown COMPREHENSIVE METABOLIC 45397 ALK PHOS 72 U/L 2018 Unknown COMPREHENSIVE METABOLIC 59235 SODIUM 139 mmol/L 11/09 Unknown COMPREHENSIVE METABOLIC 12534 CREATININE 0.98 mg/dL 10/18 Unknown COMPREHENSIVE METABOLIC 32606 CALCIUM 9.1 mg/dL 2018 Unknown COMPREHENSIVE METABOLIC 34173 POTASSIUM 3.7 mmol/L 11/09 Unknown COMPREHENSIVE METABOLIC 89248 Total Protein 7.2 g/dL Unknown COMPREHENSIVE METABOLIC 22705 Glucose 137 mg/dL 2018 Unknown COMPREHENSIVE METABOLIC 62913 Bicarbonate 24 mmol/L 10/18 Unknown COMPREHENSIVE METABOLIC 20008 AGAP 11 mmol/L 2018 Unknown COMPLETE BLOOD COUNT [id number] WBC 4.6 10e9/L 11/10/19 19 Unknown COMPLETE BLOOD COUNT [id number] RBC 4.88 10e12/L 2018 Unknown COMPLETE BLOOD COUNT [id number] HEMOGLOBIN 14.7 g/dL 11/10/19 19 Unknown COMPLETE BLOOD COUNT [id number] HEMATOCRIT 43.7 % 11/10/19 19 Unknown COMPLETE BLOOD COUNT [id number] MCV 89.5 fL 9 Unknown COMPLETE BLOOD COUNT [id number] MCH 30.1 pg 9 Unknown COMPLETE BLOOD COUNT [id number] MCHC 33.6 g/dL 9 Unknown COMPLETE BLOOD COUNT 0514980 PLATELET COUNT 179 10e9/L Unknown COMPLETE BLOOD COUNT 6591625 Mean Plt Volume 11.6 fL Unknown COMPLETE BLOOD COUNT 6140145 Neut Auto 55.5 % 9 Unknown COMPLETE BLOOD COUNT [id number] Lymph Auto 28.7 % 11/10/19 19 Unknown COMPLETE BLOOD COUNT [id number] [place] Auto 7.9 % 9 Unknown COMPLETE BLOOD COUNT 5264045 RDW 13.2 % 9 Unknown COMPLETE BLOOD COUNT [id number] Eos Auto 7.7 % 9 Unknown COMPLETE BLOOD COUNT 0871115 Baso Auto 0.2 % 9 Unknown COMPLETE BLOOD COUNT [id number] Neutrophil Abs 2.55 10e9/L Unknown COMPLETE BLOOD COUNT [id number] Lymphocyte Abs 1.32 10e9/L Unknown COMPLETE BLOOD COUNT [id number] Monocyte Abs 0.36 10e9/L 10/18 Unknown COMPLETE BLOOD COUNT [id number] Eosinophil Abs 0.35 10e9/L Unknown COMPLETE BLOOD COUNT [id number] RDW-SD 42.2 fL 9 Unknown COMPLETE BLOOD COUNT [id number] Basophil Abs 0.01 10e9/L 10/18 Unknown [facility] 53039 Cholesterol 205 mg/dL 11/09/2018 Unkno wn L[facility] 43129 Triglyceride 268 mg/dL 11/09/2018 Unkn own [facility] 99054 HDL CHOLESTEROL 35 mg/dL 11/09/2018 U nknown [facility] 26871 Chol/HDL Ratio 5.86 ratio 11/09/2018 U nknown [facility] 63103 NON-HDL Chol 170 mg/dL 11/09/2018 Unkn own [facility] 03166 LDL Cholesterol 116 mg/dL 11/09/2018 U nknown PT 4639051 PT 12.7 Seconds 11/09/2018 Unknow n PT 8694795 INR 0.9 11/09/2018 Unknown GFR CALC 8763484 GFR Non Afr Amr >60 mL/min 11/09/2018 Un known GFR CALC 6612543 GFR Afr Amr >60 mL/min 11/09/2018 Unknow n ACT PARTIAL THRMBOPLASTIN TIME 21122 PTT 34.0 [place] nds 11/09/2018 Unknown LIP[facility] GROUP 55359 Cholesterol 186 mg/dL 2018 Unkno wn [facility] 79787 Triglyceride 229 mg/dL 2018 Unkn own [facility] 51368 HDL CHOLESTEROL 36 mg/dL 2018 U nknown [facility] 79724 Chol/HDL Ratio 5.17 ratio 2018 U nknown L[facility] 09614 NON-HDL Chol 150 mg/dL 2018 Unkn own [facility] 70891 LDL Cholesterol 104 mg/dL 2018 U nknown GFR CALC 4947519 GFR Non Afr Amr >60 mL/min 2018 Un known GFR CALC 9919005 GFR Afr Amr >60 mL/min 2018 Unknow n COMPREHENSIVE METABOLIC 27102 AST 23 U/L 2018 Unknown COMPREHENSIVE METABOLIC 24846 ALT 22 U/L 2018 Unknown COMPREHENSIVE METABOLIC 35031 BUN 15 mg/dL 2018 Unknown COMPREHENSIVE METABOLIC 15696 ALBUMIN 4.1 g/dL 2018 Unknown COMPREHENSIVE METABOLIC 86584 CHLORIDE 106 mmol/L 05/06 Unknown COMPREHENSIVE METABOLIC 63105 Bili Total 0.6 mg/dL 05/06 Unknown COMPREHENSIVE METABOLIC 19023 ALK PHOS 61 U/L 2018 Unknown COMPREHENSIVE METABOLIC 19018 SODIUM 141 mmol/L 05/06 Unknown COMPREHENSIVE METABOLIC 37534 CREATININE 0.91 mg/dL 04/17 Unknown COMPREHENSIVE METABOLIC 55879 CALCIUM 9.2 mg/dL 2018 Unknown COMPREHENSIVE METABOLIC 78835 POTASSIUM 3.8 mmol/L 05/06 Unknown COMPREHENSIVE METABOLIC 75241 Total Protein 7.0 g/dL Unknown COMPREHENSIVE METABOLIC 58741 Glucose 97 mg/dL 2018 Unknown COMPREHENSIVE METABOLIC 66769 Bicarbonate 28 mmol/L 04/17 Unknown COMPREHENSIVE METABOLIC 52940 AGAP 7 mmol/L 2018 Unknown THYROID STIMULATING HORMONE 99028 TSH 2.094 uIU/mL 2018 Unknown COMPLETE BLOOD COUNT 8292672 WBC 5.5 10e9/L 05/07/19 19 Unknown COMPLETE BLOOD COUNT [id number] RBC 4.61 10e12/L 2018 Unknown COMPLETE BLOOD COUNT 0015570 HEMOGLOBIN 13.6 g/dL 05/07/19 19 Unknown COMPLETE BLOOD COUNT 1220509 HEMATOCRIT 40.0 % 05/07/19 19 Unknown COMPLETE BLOOD COUNT 4504940 MCV 86.8 fL 9 Unknown COMPLETE BLOOD COUNT 7454882 MCH 29.5 pg 9 Unknown COMPLETE BLOOD COUNT 1324871 MCHC 34.0 g/dL 9 Unknown COMPLETE BLOOD COUNT 7820148 PLATELET COUNT 197 10e9/L Unknown COMPLETE BLOOD COUNT 0492085 Mean Plt Volume 10.8 fL Unknown COMPLETE BLOOD COUNT 6269335 Neut Auto 49.6 % 9 Unknown COMPLETE BLOOD COUNT 9300320 Lymph Auto 36.8 % 05/07/19 19 Unknown COMPLETE BLOOD COUNT 6746215 [place] Auto 8.1 % 9 Unknown COMPLETE BLOOD COUNT 7357543 RDW 15.3 % 9 Unknown COMPLETE BLOOD COUNT 0353531 Eos Auto 5.3 % 9 Unknown COMPLETE BLOOD COUNT 0106837 Baso Auto 0.2 % 9 Unknown COMPLETE BLOOD COUNT 7227549 Neutrophil Abs 2.73 10e9/L Unknown COMPLETE BLOOD COUNT 7449008 Lymphocyte Abs 2.02 10e9/L Unknown COMPLETE BLOOD COUNT 9574472 Monocyte Abs 0.45 10e9/L 04/17 Unknown COMPLETE BLOOD COUNT [id number] Eosinophil Abs 0.29 10e9/L Unknown COMPLETE BLOOD COUNT [id number] RDW-SD 47.9 fL 9 Unknown COMPLETE BLOOD COUNT [id number] Basophil Abs 0.01 10e9/L 04/17 Unknown Procedures Procedure Codes Date CEFTRIAXONE SODIUM INJECTION CPT-4: J0696 11/09/2018 THER/PROPH/DIAG INJ SC/IM CPT-4: 32643 11/09/2018 ROUTINE VENIPUNCTURE CPT-4: 61530 11/09/2018 COMPREHEN METABOLIC PANEL CPT-4: 13823 11/09/2018 COMPLETE CBC W/AUTO DIFF WBC CPT-4: 05004 11/09/2018 LIPID PANEL CPT-4: 97177 11/09/2018 PROTHROMBIN TIME CPT-4: 86047 11/09/2018 THROMBOPLASTIN TIME PARTIAL CPT-4: 93559 11/09/2018 THER/PROPH/DIAG INJ SC/IM CPT-4: 57069 09/23/2018 KETOROLAC TROMETHAMINE INJ CPT-4: J1885 09/23/2018 ROUTINE VENIPUNCTURE CPT-4: 72730 2018 ASSAY THYROID STIM HORMONE CPT-4: 99320 2018 COMPREHEN METABOLIC PANEL CPT-4: 17461 2018 COMPLETE CBC W/AUTO DIFF WBC CPT-4: 82229 2018 LIPID PANEL CPT-4: 05114 2018 CEFTRIAXONE SODIUM INJECTION CPT-4: J0696 04/14/2018 THER/PROPH/DIAG INJ SC/IM CPT-4: 42902 04/14/2018 CEFTRIAXONE SODIUM INJECTION CPT-4: J0696 03/18/2018 THER/PROPH/DIAG INJ SC/IM CPT-4: 89717 03/18/2018 THER/PROPH/DIAG INJ SC/IM CPT-4: 80874 01/26/2018 KETOROLAC TROMETHAMINE INJ CPT-4: J1885 01/26/2018 CEFTRIAXONE SODIUM INJECTION CPT-4: J0696 12/22/2017 THER/PROPH/DIAG INJ SC/IM CPT-4: 22124 12/22/2017 ROUTINE VENIPUNCTURE CPT-4: 82013 11/14/2016 COMPLETE CBC W/AUTO DIFF WBC CPT-4: 03966 11/14/2016 PT/PTT CPT-4: 5536353 11/14/2016 Vital Signs Date Vital 07/05/2019 Blood [...] 1: 134/82 Code: 8480-6 BMI: 23.9 Code: 36285-0 Heart Rate 1: 100 bpm Height: 6'4" [...] 1: 138/70 Code: 8480-6 BMI: 22.6 Code: 18179-8 Heart Rate 1: 97 bpm Height: 6'4" [...] 1: 142/80 Code: 8480-6 BMI: 20.9 Code: 56316-6 Heart Rate 1: 108 bpm Height: 6'4" Respiratory Rate: 20 bpm SpO2: 97% Tempera ture: 36.6 (C) / 97.9 (F) Weight: 172 lbs 01/26/2018 Blood Pressure 1: 130/82 Code: 8480-6 Heart Rate 1: 98 bpm Respiratory Rate: 18 bpm SpO2: 99% Temperature: 35.7 (C) / 96.3 (F) We ight: 175 lbs 12/22/2017 Blood Pressure 1: 124/68 Code: 8480-6 BMI: 22.3 Code: 95761-3 Heart Rate 1: 100 bpm Height: 6'4" Respiratory Rate: 20 bpm SpO2: 98% Tempera ture: 36.7 (C) / 98.0 (F) Weight: 183 lbs 10/06/2017 Blood Pressure 1: 130/86 Code: 8480-6 BMI: 21.1 Code: 23419-9 Heart Rate 1: 92 bpm Height: 6'4" Respiratory Rate: 18 bpm SpO2: 98% Tempera ture: 36.9 (C) / 98.5 (F) Weight: 173 lbs 02/03/2017 Blood Pressure 1: 144/92 Code: 8480-6 BMI: 20.8 Code: 14840-3 Heart Rate 1: 88 bpm Height: 6'4" Respiratory Rate: 20 bpm SpO2: 97% Tempera ture: 36.7 (C) / 98.1 (F) Weight: 171 lbs 11/25/2016 Blood Pressure 1: 126/84 Code: 8480-6 Heart Rate 1: 76 bpm Respiratory Rate: 20 bpm SpO2: 96% Temperature: 36.9 (C) / 98.4 (F) We ight: 170 lbs 11/14/2016 Blood Pressure 1: 126/82 Code: 8480-6 BMI: 20.7 Code: 42117-1 Heart Rate 1: 86 bpm Height: 6'4" Respiratory Rate: 18 bpm SpO2: 96% Tempera ture: 35.8 (C) / 96.5 (F) Weight: 170 lbs 04/02/2016 Blood Pressure 1: 124/78 Code: 8480-6 Heart Rate 1: 88 bpm Respiratory Rate: 24 bpm SpO2: 97% Temperature: 36.1 (C) / 97.0 (F) We ight: 161 lbs 11/29/2015 Blood Pressure 1: 124/68 Code: 8480-6 BMI: 19.2 Code: 80368-9 Heart Rate 1: 94 bpm Height: 6'4" Respiratory Rate: 18 bpm SpO2: 97% Tempera ture: 36.1 (C) / 97.0 (F) Weight: 158 lbs 06/27/2015 Blood Pressure 1: 128/78 Code: 8480-6 BMI: 18.7 Code: 53181-4 Heart Rate 1: 72 bpm Height: 6'4" Respiratory Rate: 22 bpm SpO2: 98% Tempera ture: 35.9 (C) / 96.6 (F) Weight: 154 lbs 05/24/2015 Blood Pressure 1: 112/78 Code: 8480-6 BMI: 19.7 Code: 35635-1 Heart Rate 1: 78 bpm Height: 6'4" [...] care Encounters Encounter Performer Location Codes Date ([id number]) OFFICE/OUTPATIENT VISIT EST Diagnosis: Other specified local infections of the skin and subcutaneous tissue[ICD10: L08.89] Diagnosis: DM w/o complication type II, uncontrolled[ICD10: E11.65] Diagnosis: Right leg DVT[ICD10: I82.401] Janneth SHRESTHA DO [facility] CPT-4: 86258 07/05/2019 ([id number]) OFFICE/OUTPATIENT VISIT EST Diagnosis: 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, implant, or graft[ICD10: T85.818A] Diagnosis: DM w/o complication type II, uncontrolled[ICD10: E11.65] Janneth SHRESTHA DO [facility] CPT-4: 99581 05/17/2019 ([id number]) OFFICE/OUTPATIENT VISIT EST Diagnosis: Acute dermatitis[ICD10: L30.9] Diagnosis: DM w/o complication type II, uncontrolled[ICD10: E11.65] Diagnosis: Right leg DVT[ICD10: I82.401] Janneth SHRESTHA DO [facility] CPT-4: 76501 05/02/2019 ([id number]) OFFICE/OUTPATIENT VISIT EST Diagnosis: DM w/o complication type II, uncontrolled[ICD10: E11.65] Diagnosis: Allergic dermatitis[ICD10: L23.9] Diagnosis: Right leg DVT[ICD10: I82.401] Diagnosis: Paroxysmal atrial fibrillation[ICD10: I48.0] Diagnosis: Right calf pain[ICD10: M79.661] Janneth SHRESTHA [facility] CPT-4: 62336 04/25/2019 ([id number]) OFFICE/OUTPATIENT VISIT EST Diagnosis: DM w/o complication type II, uncontrolled[ICD10: E11.65] Diagnosis: 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, implant, or graft[ICD10: T85.818A] Diagnosis: Essential hypertension[ICD10: I10] Janneth SHRESTHA [facility] CPT-4: 14797 04/11/2019 ([id number]) OFFICE/OUTPATIENT VISIT EST Diagnosis: Sinus tachycardia[ICD10: R00.0] Diagnosis: Folliculitis[ICD10: L73.9] Janneth HARDY [facility] CPT-4: 10244 03/01/2019 ([id number]) OFFICE/OUTPATIENT VISIT EST Diagnosis: Cellulitis of left lower limb[ICD10: L03.116] Diagnosis: Tendinitis of left peroneus longus tendon[ICD10: M76.72] Janneth SHRESTHA [facility] CPT-4: 76675 11/18/2018 ([id number]) OFFICE/OUTPATIENT VISIT EST Diagnosis: Cellulitis of left foot[ICD10: L03.116] Diagnosis: Spontaneous ecchymoses[ICD10: R23.3] Diagnosis: Venous insufficiency (chronic) (peripheral)[ICD10: I87.2] Diagnosis: Mixed hyperlipidemia[ICD10: E78.2] Vania RAY CloutexLisandra CLARK [facility] CPT-4: 23529 11/09/2018 ([id number]) OFFICE/OUTPATIENT VISIT EST Diagnosis: Venous insufficiency (chronic) (peripheral)[ICD10: I87.2] Diagnosis: Cellulitis of left lower limb[ICD10: L03.116] Diagnosis: Pain in right foot[ICD10: M79.671] Vania RAY Cloutex AMBER [facility] CPT-4: 98172 10/13/2018 ([id number]) OFFICE/OUTPATIENT VISIT EST Diagnosis: Low back pain[ICD10: M54.5] Vania [facility] CPT-4: 20446 09/23/2018 ([id number]) OFFICE/OUTPATIENT VISIT EST Diagnosis: Gastro-esophageal reflux disease without esophagitis[ICD10: K21.9] Diagnosis: Dysphagia, pharyngoesophageal phase[ICD10: R13.14] Janneth Sriramchrista NORWOODJANNETH Liza ROGERSChujian [facility] CPT-4: 88140 09/06/2018 ([id number]) OFFICE/OUTPATIENT VISIT EST Diagnosis: Tinea corporis[ICD10: B35.4] Vania CLARK [facility] CPT-4: 94109 07/15/2018 ([id number]) OFFICE/OUTPATIENT VISIT EST Diagnosis: Cellulitis of left toe[ICD10: L03.032] Diagnosis: Mixed hyperlipidemia[ICD10: E78.2] Mandy RAY Cl[employer]. AMBER [facility] CPT-4: 55268 2018 OFFICE/OUTPATIENT VISIT EST Diagnosis: Cellulitis of left toe[ICD10: L03.032] Diagnosis: Unspecified disturbances of skin sensation[ICD10: R20.9] Mandy WARD MeetLisandra AMBER [facility] CPT-4: 00677 04/14/2018 ([id number]) OFFICE/OUTPATIENT VISIT EST Diagnosis: Cellulitis of left toe[ICD10: L03.032] Diagnosis: Insomnia, unspecified[ICD10: G47.00] Vania SHRESTHA [employer] CPT-4: 27150 03/18/2018 ([id number]) OFFICE/OUTPATIENT VISIT EST Diagnosis: Other postprocedural complications and disorders of the circulatory system, not elsewhere classified[ICD10: I97.89] Diagnosis: Rash and other nonspecific skin eruption[ICD10: R21] Diagnosis: Pain in right leg[ICD10: M79.604] Vania SHRESTHA DO [employer] CPT-4: 93760 01/26/2018 ([id number]) OFFICE/OUTPATIENT VISIT EST Diagnosis: Other postprocedural complications and disorders of the circulatory system, not elsewhere classified[ICD10: I97.89] Diagnosis: Cellulitis of right lower limb[ICD10: L03.115] Vania SHRESTHA [employer] CPT-4: 18666 12/22/2017 ([id number]) OFFICE/OUTPATIENT VISIT EST Diagnosis: Acute sinusitis, unspecified[ICD10: J01.90] Diagnosis: Unspecified disturbances of skin sensation[ICD10: R20.9] Vania SHRESTHA [employer] CPT-4: 21622 10/06/2017 ([id number]) OFFICE/OUTPATIENT VISIT EST Diagnosis: Primary insomnia[ICD10: F51.01] Diagnosis: Pain in left shoulder[ICD10: M25.512] Diagnosis: Poisoning by other parasympatholytics [anticholinergics and antimuscarinics] and spasmolytics, accidental (unintentional), sequela[ICD10: T44.3X1S] Janneth SHRESTHA [employer] CPT-4: 53219 02/03/2017 OFFICE/OUTPATIENT VISIT EST Diagnosis: Insomnia, unspecified[ICD10: G47.00] Diagnosis: Constipation, unspecified[ICD10: K59.00] Diagnosis: Spontaneous ecchymoses[ICD10: R23.3] Diagnosis: Pain in left foot[ICD10: M79.672] [facility] CPT-4: 58031 11/25/2016 OFFICE/OUTPATIENT VISIT EST Diagnosis: Insomnia, unspecified[ICD10: G47.00] Diagnosis: Constipation, unspecified[ICD10: K59.00] Diagnosis: Spontaneous ecchymoses[ICD10: R23.3] Diagnosis: Other specified local infections of the skin and subcutaneous tissue[ICD10: L08.89] [facility] 99 213 11/14/2016 ([id number]) OFFICE/OUTPATIENT VISIT EST Diagnosis: Acute upper respiratory infection, unspecified[ICD10: J06.9] Ester [facility] CPT-4: 65617 04/02/2016 ([id number]) OFFICE/OUTPATIENT VISIT EST Diagnosis: Acute upper respiratory infection, unspecified[ICD10: J06.9] [facility] CPT[facility]: 81225 11/29/2015 ([id number]) OFFICE/OUTPATIENT VISIT EST Diagnosis: Pain in thoracic spine[ICD10: M54.6] Diagnosis: Paresthesia of skin[ICD10: R20.2] Diagnosis: Dysphagia, unspecified[ICD10: R13.10] Ester Grande THERON KUHN [facility] CPT-4: 32445 06/27/2015 ([id number]) OFFICE/OUTPATIENT VISIT NEW Diagnosis: Pain in left leg[ICD10: M79.605] Diagnosis: Male erectile dysfunction, unspecified[ICD10: N52.9] Diagnosis: Dysphagia, unspecified[ICD10: R13.10] Ester Grande THERON KUHN [facility] CPT-4: 79033 05/24/2015 Plan of Care Planned Activity Notes [...] E11.65 07/05/2019 Patient Education: cephalexin- [employer] Coupon [id number] https://www.[employer]/sampleGranData/resources/getResource/61/l5285u13-2796-4516-f6 Completed 07/05/2019 Visit Diagnosis Plan: DM w/o [...] : T85.818A 05/17/2019 Appointment: Janneth Shrestha WPtel: [address] [place], [place] [phone] FOLLOW UP 05/17/2019 Patient Education: Metformin Patient [...] E11.65 05/02/2019 Appointment: Janneth Shrestha WPtel: [phone] [facility] [place] FOLLOW UP 05/02/2019 Patient Education: metoprolol succinate- OptimizeRX Co upon [id number] https://www.[employer]/sampleGranData/resources/getResource/61/61357dl3-y0d5-591b-s8 Completed 05/02/2019 Visit Diagnosis Plan: Paroxysmal atrial [...] E11.65 04/25/2019 Appointment: [facility]rest[facility]el[phone] [facility] [facility] 04/25/2019 Patient Education: Metformin Patient Savings Message Alert Completed 04/25/2019 Patient Education: prednisone- [employer] Coupon [id number] https://www.[employer]/fflick/resources/getResource/61/5lq33fk7-s8vp-3e28-ca Completed 04/25/2019 Visit Diagnosis Plan: DM w/o [...] : T85.818A 04/11/2019 Appointment: Janneth Shrestha WPtel: [address] [place] [address] ACUTE ILLNESS 04/11/2019 Patient Education: metoprolol succinate- [employer] Co upon [id number] https://www.[employer]/fflick/resources/getResource/61/yn564524-24yt-9s17-32 Completed 04/11/2019 Patient Education: Metformin Patient Savings Message Alert Completed 04/11/2019 Patient Education: cephalexin- [employer] Coupon [id number] https://www.[employer]/fflick/resources/Eqiancheng.comResource/61/5xtw2440-9o8t-6538-su Completed 04/11/2019 Visit Diagnosis Plan: Folliculitis Discussion: Bactrim and topical bactroban ICD-9 : 704.8 ICD-10 : L73.9 03/01/2019 Visit Diagnosis Plan: Sinus tachycardia Discussion: St art low dose metoprolol ER 25mg daily Monitor pulse Sees Cardiology next month ICD-9 : 427.89 ICD-10 : R00.0 03/01/2019 Appointment: Janneth Shrestha WPtel: [address] [place] [address] FOLLOW UP 03/01/2019 Patient Education: mupirocin- [employer] Coupon [id number] https://www.[employer]/fflick/resources/getResource/61/ch263td0-57yw-012d-zo Completed 03/01/2019 Appointment: Janneth Shrestha WPtel: [address] [place], [place] [phone] [place] CANCELED 12/20/2018 Visit Diagnosis Plan: Cellulitis [...] : M76.72 11/18/2018 [facility]ment[facility] [place] [facility] 11/18/2018 Appointment: Janneth [facility]restha WPtel[facility] [address] [facility] [place] FOLLOW [facility] 11/18/2018 Patient Education: doxycycline monohydrate- [employer] Coupon [id number] https://www.[employer]/sampleGranData/resources/getResource/61/ffj70155-a2j9-16q5-5g Completed 11/18/2018 Patient Education: prednisone- [employer] Coupon [id number] https://www.[employer]/samplemd/resources/getResource/61/71yv0i8o-8tn7-1798-sx Completed 11/18/2018 Care Plan: Referral Order SNOMED-CT : 30 0433651 Pending 11/18/2018 Visit Diagnosis Plan: Venous insufficiency [...] evaluated in an ED whether it be [place] or wherever he's traveling. discussed the risk [...] ICD-10 : R23.3 11/09/2018 Appointment: Vania García [address] [place], [place] [phone] ACUTE ILLNESS 11/09/2018 Patient Education: clindamycin HCl- [employer] Coupon [id number] https://www.fflick.[employer]/sampleGranData/resources/getResource/61/55qt83e7-bz63-5iw7-3e Completed 11/09/2018 Appointment: Janneth Shrestha WPtel: [phone] [id number] CANCELED 10/19/2018 Visit Diagnosis Plan: Pain in [...] ICD-10 : L03.116 10/13/2018 Appointment: Vania García [address] [place], [place] [phone] Patient cant pay copay till when he [...] ICD-10 : M54.5 09/23/2018 Appointment: Vania García [address] [place] [address] ACUTE ILLNESS 09/23/2018 Patient Education: Medrol (Brenden)- OptimizeRX Coupon [phone] https://www.[employer]/fflick/resources/getResource/61/cwkn428l-8761-56w2-31 Completed 09/23/2018 Visit Diagnosis Plan: Dysphagia, pharyngoesophageal ph ase Discussion: Referral for EGD ICD-9 : 787.24 ICD-10 : R13.14 09/06/2018 Visit Diagnosis Plan: Gastro-esophageal reflux disease without esophagitis Discussion: Start omeprazole ICD-9 : 530.81 ICD-10 : K21.9 09/06/2018 Appointment: Janneth Shrestha WPtel[facility] [address] [facility] [facility] ACUTE ILLNESS 09/06/2018 Patient Education: omeprazole- [employer]imizeRX Coupon [phone] https://www.[employer]/fflick/resources/getResource/61/739ba015-62k6-212e-83 Completed 09/06/2018 Care Plan: Referral Order SNOMED-CT : 30 7089616 Pending 09/06/2018 Visit Diagnosis Plan: Tinea corporis Discussion: nysta tin to be used bid until rash gone and then an additional 2 days. diflucan every 3 days for 3 doses. keep area clean and dry with no moisturizers. call office if no improvement in 2 weeks or if worsening. ICD-9 : 110.5 ICD-10 : B35.4 07/15/2018 Appointment: Vania García [address] [facility] [facility] 07/15/2018 Patient Education: nystatin- [employer] Coupon [id number] https://www.[employer]/fflick/resources/getResource/61/65njk763-i6sf-54ow-2f Completed 07/15/2018 Patient Education: Plavix- OptimizeRX Coupon [id number] https://www.[employer]/fflick/resources/getResource/61/73ki7c02-j07v-87tj-78 fa-u647l1948962.pdf Completed 07/15/2018 Patient Education: cyclobenzaprine- [employer]imize[employer] Coupon 21797189 https://www.fflick.[employer]/samplemd/resources/getResource/61/96132s0c-9a09-78t1-uf Completed 07/15/2018 Visit Diagnosis Plan: Cellulitis of [...] ICD-10 : L03.032 2018 Appointment: Mandy Hollins [facility] [place] [address] FOLLOW UP 2018 Patient Education: mupirocin- [employer] Coupon [id number] https://www.fflick.[employer]/samplemd/resources/getResource/61/x7gi59n9-3228-2791-0j Completed 2018 Visit Diagnosis Plan: Cellulitis of [...] ICD-10 : R20.9 04/14/2018 Appointment: Mandy Hollins [address] [place] [address] FOLLOW UP 04/14/2018 Visit Diagnosis Plan: Cellulitis [...] ICD-10 : G47.00 03/18/2018 Appointment: Vania García [address] [place], [place] [phone] ACUTE ILLNESS 03/18/2018 Patient Education: cyclobenzaprine- Optimize[employer] Coupon [id number] https://www.fflick.com/samplemd/resources/getResource/61/5010n387-9ls1-454j-x0 Completed 03/18/2018 Visit Diagnosis Plan: Rash and other nonspecific skin eruption Discussion: triamcinolone ordered to be used as directed. ICD-9 : 782.1 ICD-10 : R21 01/26/2018 Visit Diagnosis Plan: Other postprocedur al complications and disorders of the circulatory system, not elsewhere classified Discussion: discussed with dr. shrestha and patient was instructed to contact the [place] [facility]ology dept. due to uncontrolled pain, continued erythema, patient needs to be re-evaluated by the surgeon. 60 mg toradol given to patient. patient verbalized understanding and voiced he will contact them today for an appointment. ICD-9 : 997.1 ICD-10 : I97.89 01/26/2018 App[facility]ment[facility] [facility] Follow Up 01/26/2018 Appointment: Janneth Shrestha WPtel: [phone] [facility] [address] NO SHOW 01/06/2018 Visit Diagnosis Plan: [...] ICD-10 : I97.89 12/22/2017 Appointment: Vania García [address] [place], [place] [phone] ACUTE ILLNESS 12/22/2017 Visit Diagnosis Plan: Unspecified [...] ICD-10 : J01.90 10/06/2017 Appointment: Vania García [address] [place], [place] [phone] ACUTE ILLNESS 10/06/2017 Patient Education: Patient Medication Summary Completed 10/06/2017 Appointment: Vania García [address] [place], [place] [phone] ER Follow UP 08/17/2017 Appointment: Vania García [address] [place], [place] [phone] [place] CANCELED 07/03/2017 Appointment: Janneth Shrestha WPtel: [phone] [facility] [place] canceled at 8:05 this morning. 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 ICD-9 : 729.5 ICD-10 : M79.672 11/25/2016 Visit Diagnosis Plan: Insomnia, unspecified Recommenda tions: resolved with lunesta. continue taking as prescribed. ICD-9 : 780.52 ICD-10 : G47.00 11/25/2016 Appointment: Vania García [address] [place], [place] [address] FOLLOW UP 11/25/2016 Patient Education: Patient Medication [...] ICD-10 : K59.00 11/14/2016 Appointment: Vania García [address] [place] [address] ACUTE ILLNESS 11/14/2016 Patient Education: Patient Medication Summary Completed 11/14/2016 Visit Diagnosis Plan: Acute upper respiratory infectio n, unspecified Discussion: Rxs as above Continue OTC and supportive meds Encouraged smoking cessation Follow up PRN ICD-9 : 465.9 ICD-10 : J06.9 04/02/2016 Appointment: Ester Grande [address] [place] [address] ACUTE ILLNESS 04/02/2016 Patient Education: Patient Medication Summary Completed 04/02/2016 Visit Plan: Rxs as above Supportive care reviewed Follow up PRN 11/29/2015 Appointment: Ester Grande [address] [place] [address] 11/27 confirmed~sl ACUTE ILLNESS 11/29/2015 Patient Education: [...] for pain 06/27/2015 Appointment: [facility] [facility] [place] 06/25 lm ~sl 06/26 phone not on~sl FOLLOW UP 06/27/2015 Patient Education: Patient Medication Summary Completed 06/27/2015 Care Plan: X-RAY EXAM RIBS UNI 2 VIEWS L OINC : 98664-2 Pending 06/27/2015 Referral: Héctor Woodard [facility] [facility] [place] 05/29 Scheduled with sena ~sl Appointment Re quested 06/26/2015 Referral: Cameron Khanna WPtel: [address] [facility] [place] Referral Initiated 06/11/2015 Referral: Marco Antonio Green WPtel: [address] [id number] [place] 05/30/15 Needs to be there at pre op time per ~sl Initiated 06/04/2015 Visit Plan: Will get all necessary refer rals set up - CTS, Uro and G/S Swallow study and routine labs ordered Will further investigate left leg pain with EMG if not cardio related 05/24/2015 Appointment: Ester Grande [facility] [facility] NEW [facility]IENT 05/24/2015 Patient Education: Patient Medication Summary Completed 05/24/2015 Care Plan: Referral Order SNOMED-CT : 30 [id number] Pending 05/24/2015 Care Plan: Referral Order SNOMED-CT : 30 3070045 Pending 05/24/2015 Care Plan: Referral Order SNOMED-CT : 30 [id number] Pending 05/24/2015 Referral: Sudheer [facility]ann [facility] [address] [facility] [place] Referral Appointment Requested Referral: Alfonzo Andujar WPtel: [address] [facility] [place] Referral Initiated Referral: [facility] [address] [id number] [place] Referral Completed Referral: Cameron Khanna WPtel: [address] [facility] [place] Referral Appointment Requested Referral: RoseBrianna Katherine WPtel: [address] [address] [place] Referral Initiated Referral: Yamilet Alannavenice WPtel: [address] [id number] [place] 05/24/15 [facility] office suggested he see another card. ~sl Initiated Referral: Alfonzo Andujar WPtel: [address] [place] [address] [place] Referral Appointment Requested Referral: Marco Antonio Green WPtel: [address] [place] [address] [place] Referral Appointment Requested Instructions Comment . [...]
--- OUTSIDE RECORDS SUMMARY | 2019-08-06 10:22 | XMS REPORT | CCD ---
Author Author [place] Organization JANNETH SHRESTHA DO [facility] Address [address] [place] [address] Phone Unavailable Care Team Providers Care Television Antenna Installer Name Role Phone Janneth Shrestha D.O., PP Unavailable CCM Unavailable Summary Purpose Interface Exchange Insurance Providers Payer name Policy type / Coverage type Covered alliance party ID Effective Begin Date Effective End Date Blue Cross Blue Shield Blue Cross/Blue Shield [id number] Unknown Family History Family History data not found Social History Social History Element Codes Description Effective Dates Marital status Unknown 05/24/2015 Number of children Unknown 2 05/24/2015 Employment Unknown Currently employed 05/24/[address]: [id number] 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 [...] 50 mg tablet,extended release 24 hr RxNorm: 876030 1 Tablet(s) Oral QD 08/01/2019 10/30/2019 Active cephalexin 500 mg tablet RxNorm: 930020 1 Tablet(s) Oral three times a day 07/05/2019 07/12/2019 Active cyclobenzaprine 10 mg tablet RxNorm: 289310 TAKE ONE TA BLET BY MOUTH AT BEDTIME NEEDED 05/20/2019 No Stop Date Active metformin ER 1,000 mg tablet,extended release 24hr RxNorm: 1 898901 1 Tablet(s) Oral two times a day replaces 500mg dose 05/17/2019 11/13/2019 Active [AttnRPh: Saving apply/adjudicate RxGRP:[id number] RxBIN:[id number] RxPCN: ID#:[id number]] ReliOn Prime Test Strips RxNorm: 1 Unit [...] 05/01/2019 Inactive Plavix 75 mg tablet RxNorm: 056976 TAKE ONE TABLET BY MOUTH DAILY 0 04/25/2019 04/26/2019 Inactive Plavix 75 mg tablet RxNorm: 267886 TAKE ONE TABLET BY MOUTH DAILY 0 04/25/2019 04/24/2019 Inactive Xarelto 20 mg tablet RxNorm: 9760657 1 Tablet(s) Oral QD 04/25/2019 0 07/04/2019 Inactive amiodarone 200 mg tablet RxNorm: 002830 1 Tablet(s) Oral QD 020 07/04/2019 Inactive metformin ER 500 mg 24 hr tablet,extended release RxNorm: 18 09931 1 Tablet(s) Oral two times a day 04/25/2019 05/16/2019 Inactive prednisone 20 mg tablet RxNorm: 958961 1 Tablet(s) Oral two jn es a day 04/25/2019 05/01/2019 Inactive aspirin 81 mg tablet,delayed release RxNorm: 120278 1 Tablet(s) Oral QD 04/11/2019 No Stop Date Active pantoprazole 40 mg tablet,delayed release RxNorm: 491743 1 Tabl et(s) Oral QAM 04/11/2019 No Stop Date Active Vitamin C 1,000 mg tablet RxNorm: 218992 1 Tablet(s) Oral QD 2019 No Stop Date Active Xarelto 15 mg tablet RxNorm: 9357851 1 Tablet(s) Oral QD 04/11/2019 0 04/24/2019 Inactive metformin ER 500 mg 24 hr tablet,extended release RxNorm: 18 00699 1 Tablet(s) Oral QD 04/11/2019 04/24/2019 Inactive cephalexin 500 mg capsule RxNorm: 063563 1 Capsule(s) Oral thre e times a day 04/11/2019 04/18/2019 Inactive metoprolol succinate ER 50 mg tablet,extended release 24 hr RxNorm: 642521 1 Tablet(s) Oral QD replaces 25mg dose 04/11/2019 05/01/2019 Inactive cyclobenzaprine 10 mg tablet RxNorm: 912786 TAKE ONE TA BLET BY MOUTH EVERY NIGHT AT BEDTIME NEEDED 03/11/2019 No Stop Date Active mupirocin 2 % topical ointment RxNorm: 816363 Applicati on Topical two times a day 03/01/2019 04/10/2019 Inactive metoprolol succinate ER 25 mg tablet,extended release 24 hr RxNorm: 027135 1 Tablet(s) Oral QD 03/01/2019 04/24/2019 Inactive Bactrim DS 800 mg-160 mg tablet RxNorm: 323415 1 Tablet(s) Oral two times a day 03/01/2019 03/11/2019 Inactive cyclobenzaprine 10 mg tablet RxNorm: 825481 TAKE ONE TA BLET BY MOUTH EVERY NIGHT AT BEDTIME NEEDED 01/10/2019 03/10/2019 Inactive Plavix 75 mg tablet RxNorm: 765118 TAKE ONE TABLET BY MOUTH DAILY 1 03/12/2018 04/24/2019 Inactive omeprazole 40 mg capsule,delayed release RxNorm: 100515 TAKE ONE CAPSULE BY MOUTH EVERY NIGHT AT BEDTIME FOR REFLUX 01/10/2019 05/16/2019 Inactive tramadol 50 mg tablet RxNorm: 131110 1 Tablet(s) Oral f our times a day as needed 01/03/2019 01/03/2019 Inactive doxycycline monohydrate 100 mg capsule RxNorm: 1776404 1 Capsule(s) Oral two times a day 11/22/2018 12/13/2018 Inactive prednisone 20 mg tablet RxNorm: 116392 1 Tablet(s) Oral two jn es a day 11/22/2018 11/29/2018 Inactive Levaquin 750 mg tablet RxNorm: 625753 Tablet(s) Oral 11/18/201802/28 Inactive prednisone 20 mg tablet RxNorm: 699187 1 Tablet(s) Oral two jn es a day 11/18/2018 11/21/2018 Inactive tramadol 50 mg tablet RxNorm: 112743 Tablet(s) Oral 11/18/20182018 Inactive doxycycline monohydrate 100 mg capsule RxNorm: 0674884 1 Capsule(s) Oral two times a day 11/18/2018 11/21/2018 Inactive Plavix 75 mg tablet RxNorm: 982161 TAKE ONE TABLET BY MOUTH DAILY 0 11/10/2018 01/08/2019 Inactive clindamycin HCl 300 mg capsule RxNorm: 902860 1 Capsule (s) Oral three times a day 11/09/2018 11/19/2018 Inactive Keflex 500 mg capsule RxNorm: 960313 1 Capsule(s) PO BID 10/13/2018 0 10/22/2018 Inactive Medrol (Brenden) 4 mg tablets in a dose pack RxNorm: 891516 Tablet(s) take as directed PO 09/23/2018 10/12/2018 Inactive omeprazole 40 mg capsule,delayed release RxNorm: 357344 1 Capsule(s) PO QHS for reflux 09/06/2018 11/04/2018 Inactive Diflucan 150 mg tablet RxNorm: 300877 1 Tablet(s) PO Q72H 07/15/2018 09/05/2018 Inactive cyclobenzaprine 10 mg tablet RxNorm: 241094 1 Tablet(s) PO QHS as needed 07/15/2018 10/12/2018 Inactive nystatin 100,000 unit/gram topical cream RxNorm: 747333 1 Gram( s) TOP BID 07/15/2018 09/05/2018 Inactive Plavix 75 mg tablet RxNorm: 223830 1 Tablet(s) PO QD 07/15/201810/12 Inactive cyclobenzaprine 10 mg tablet RxNorm: 882321 1 Tablet(s) PO QHS as needed 06/10/2018 06/09/2018 Inactive cyclobenzaprine 10 mg tablet RxNorm: 631061 TAKE ONE TA BLET BY MOUTH EVERY NIGHT AT BEDTIME NEEDED 05/10/2018 06/10/2018 Inactive mupirocin 2 % topical ointment RxNorm: 206539 1 Application TOP BID 2018 05/25/2018 Inactive 22 gram cyclobenzaprine 10 mg tablet RxNorm: 829776 1 Tablet(s) PO QHS as needed 04/14/2018 06/09/2018 Inactive doxycycline hyclate 100 mg tablet RxNorm: 5890124 1 Tablet(s) PO BI D 04/14/2018 04/23/2018 Inactive cyclobenzaprine 10 mg tablet RxNorm: 418076 1 Tablet(s) PO QHS as needed 04/07/2018 04/13/2018 Inactive Bactrim DS 800 mg-160 mg tablet RxNorm: 613321 1 Tablet(s) PO BID 0 03/18/2018 03/27/2018 Inactive cyclobenzaprine 10 mg tablet RxNorm: 928842 1 Tablet(s) PO QHS as needed 03/18/2018 04/06/2018 Inactive triamcinolone acetonide 0.1 % topical cream RxNorm: 1374423 APPLY TO AFFECTED AREA(S) TWO TIMES A DAY 02/03/2018 02/12/2018 Inactive triamcinolone acetonide 0.1 % topical cream RxNorm: 4528218 1 Application TOP BID 01/26/2018 02/02/2018 Inactive Medrol (Brenden) 4 mg tablets in a dose pack RxNorm: 443329 TAKE BY MOUTH INSTRUCTED - PER PACKAGE INSTRUCTIONS 12/11/2017 12/16/2017 Inactive Medrol (Brenden) 4 mg tablets in a dose pack RxNorm: 035112 Tablet(s) P O 10/06/2017 12/10/2017 Inactive Lunesta 3 mg tablet RxNorm: 748470 1 Tablet(s) PO QHS 11/25/201608/2016 Inactive Lunesta 3 mg tablet RxNorm: 800297 1 Tablet(s) PO QHS 11/14/201610/2016 Inactive Bactrim DS 800 mg-160 mg tablet RxNorm: 526422 1 Tablet(s) PO BID 0 11/14/2016 11/23/2016 Inactive Epi E-Z Pen 0.3 mg/0.3 mL injection, auto-injector RxNorm: 1 686035 Milliliter(s) IM Use as Directed 06/25/2016 09/05/2018 Inactive amoxicillin 875 mg tablet RxNorm: 005533 1 Tablet(s) PO BID 017 04/11/2016 Inactive prednisone 20 mg tablet RxNorm: 338989 1 Tablet(s) PO BID 04/02/2016 04/06/2016 Inactive azithromycin 250 mg tablet RxNorm: 133167 2 Tablet(s) P O on day one then 1 tab on days 2-5 11/29/2015 11/28/2015 Inactive Medrol (Brenden) 4 mg tablets in a dose pack RxNorm: 189492 Take as directed 11/29/2015 11/13/2016 Inactive meloxicam 15 mg tablet RxNorm: 425178 1 Tablet(s) PO QD 07/02/2015 Inactive Chantix Starting Month Box 0.5 mg (11)-1 mg (42) table ts in dose pack RxNorm: 788179 Tablet(s) PO As Directed 06/20/2015 07/10/2015 Inactive omeprazole 40 mg capsule,delayed release RxNorm: 383480 1 Capsu le(s) PO QD 05/31/2015 11/13/2016 Inactive omeprazole 40 mg capsule,delayed release RxNorm: 692255 1 Capsu le(s) PO QD 05/31/2015 05/30/2015 Inactive Multivitamin And Mineral oral RxNorm: oral No Start Date Active Wellbutrin SR 150 mg tablet,sustained-release RxNorm: 224755 1 Tablet(s) PO BID No Start Date 11/13/2016 Inactive gabapentin 100 mg capsule RxNorm: 364072 1 Capsule(s) PO TID No Sta rt Date 03/17/2018 Inactive Chantix Starting Month Box 0.5 mg (11)-1 mg (42) table ts in dose pack RxNorm: 210279 Tablet(s) PO As Directed No Start Date 06/19/2015 Inactive Eliquis 5 mg tablet RxNorm: 6285599 1 Tablet(s) PO BID No Start Date 03/17/2018 Inactive Lactobacillus acidophilus-Bifidobacterium longum oral RxNorm: oral No Start Date 07/04/2019 Inactive aspirin 325 mg tablet RxNorm: 150058 1 Tablet(s) PO QD No Start Date 11/13/2016 Inactive clindamycin HCl 300 mg capsule RxNorm: 981363 2 Capsule(s) PO Q8H N o Start Date 03/17/2018 Inactive Fish Oil 1,000 mg (120 mg-180 mg) capsule RxNorm: 1 Caps ule(s) PO QD No Start Date 09/05/2018 Inactive aspirin 81 mg tablet RxNorm: 630648 1 Tablet(s) PO QD No Start Date 1 03/28/2017 Inactive Fish Oil 1,000 mg capsule RxNorm: 1 Capsule(s) PO QD No Start Date 11/13/2016 Inactive Baby Aspirin 81 mg chewable tablet RxNorm: 476265 1 Tablet(s) P O BID No Start Date 02/02/2017 Inactive Xarelto 10 mg tablet RxNorm: 0458823 1 Tablet(s) PO QD No Start Date 01/25/2018 Inactive tramadol 50 mg tablet RxNorm: 604782 1-2 Tablet(s) PO Q6H No Start Date 03/17/2018 Inactive meloxicam 15 mg tablet RxNorm: 314252 1 Tablet(s) PO QD No Start Da te 07/01/2015 Inactive Epi E-Z Pen 0.3 mg/0.3 mL injection, auto-injector RxNorm: 1 318642 Milliliter(s) IM Use as Directed No Start Date 06/24/2016 Inactive Plavix 75 mg tablet RxNorm: 107564 1 Tablet(s) PO QD No Start Date Inactive Medication Administered No Medication Administered data Immunizations No Immunization data Results Observation Observation Code Item Item Code Result Date S [facility] Location COMPREHENSIVE METABOLIC 30137 AST 25 U/L 2018 Unknown COMPREHENSIVE METABOLIC 62217 ALT 28 U/L 2018 Unknown COMPREHENSIVE METABOLIC 84046 BUN 13 mg/dL 2018 Unknown COMPREHENSIVE METABOLIC 21688 ALBUMIN 4.2 g/dL 2018 Unknown COMPREHENSIVE METABOLIC 79817 CHLORIDE 104 mmol/L 11/09 Unknown COMPREHENSIVE METABOLIC 39806 Bili Total 0.5 mg/dL 11/09 Unknown COMPREHENSIVE METABOLIC 59183 ALK PHOS 72 U/L 2018 Unknown COMPREHENSIVE METABOLIC 79865 SODIUM 139 mmol/L 11/09 Unknown COMPREHENSIVE METABOLIC 16067 CREATININE 0.98 mg/dL 10/18 Unknown COMPREHENSIVE METABOLIC 96235 CALCIUM 9.1 mg/dL 2018 Unknown COMPREHENSIVE METABOLIC 89121 POTASSIUM 3.7 mmol/L 11/09 Unknown COMPREHENSIVE METABOLIC 22825 Total Protein 7.2 g/dL Unknown COMPREHENSIVE METABOLIC 45137 Glucose 137 mg/dL 2018 Unknown COMPREHENSIVE METABOLIC 62224 Bicarbonate 24 mmol/L 10/18 Unknown COMPREHENSIVE METABOLIC 02153 AGAP 11 mmol/L 2018 Unknown COMPLETE BLOOD COUNT [id number] WBC 4.6 10e9/L 11/10/19 19 Unknown COMPLETE BLOOD COUNT [id number] RBC 4.88 10e12/L 2018 Unknown COMPLETE BLOOD COUNT [id number] HEMOGLOBIN 14.7 g/dL 11/10/19 19 Unknown COMPLETE BLOOD COUNT [id number] HEMATOCRIT 43.7 % 11/10/19 19 Unknown COMPLETE BLOOD COUNT 1758115 MCV 89.5 fL 9 Unknown COMPLETE BLOOD COUNT [id number] MCH 30.1 pg 9 Unknown COMPLETE BLOOD COUNT 7674207 MCHC 33.6 g/dL 9 Unknown COMPLETE BLOOD COUNT 6382389 PLATELET COUNT 179 10e9/L Unknown COMPLETE BLOOD COUNT 0615041 Mean Plt Volume 11.6 fL Unknown COMPLETE BLOOD COUNT 8039006 Neut Auto 55.5 % 9 Unknown COMPLETE BLOOD COUNT 1710555 Lymph Auto 28.7 % 11/10/19 19 Unknown COMPLETE BLOOD COUNT 6048663 Starke Auto 7.9 % 9 Unknown COMPLETE BLOOD COUNT 0468239 RDW 13.2 % 9 Unknown COMPLETE BLOOD COUNT 3483772 Eos Auto 7.7 % 9 Unknown COMPLETE BLOOD COUNT 4779864 Baso Auto 0.2 % 9 Unknown COMPLETE BLOOD COUNT [id number] Neutrophil Abs 2.55 10e9/L Unknown COMPLETE BLOOD COUNT 0560036 Lymphocyte Abs 1.32 10e9/L Unknown COMPLETE BLOOD COUNT [id number] Monocyte Abs 0.36 10e9/L 10/18 Unknown COMPLETE BLOOD COUNT 3739624 Eosinophil Abs 0.35 10e9/L Unknown COMPLETE BLOOD COUNT 8850422 RDW-SD 42.2 fL 9 Unknown COMPLETE BLOOD COUNT 2347714 Basophil Abs 0.01 10e9/L 10/18 Unknown [facility] 42428 Cholesterol 205 mg/dL 11/09/2018 Unkno wn LIPID GROUP 51500 Triglyceride 268 mg/dL 11/09/2018 Unkn own LIPID GROUP 63007 HDL CHOLESTEROL 35 mg/dL 11/09/2018 U nknown L[facility] GROUP 30852 Chol/HDL Ratio 5.86 ratio 11/09/2018 U nknown LIP[facility] GROUP 74621 NON-HDL Chol 170 mg/dL 11/09/2018 Unkn own L[facility] GROUP 20242 LDL Cholesterol 116 mg/dL 11/09/2018 U nknown PT [id number] PT 12.7 Seconds 11/09/2018 Unknow n PT 9805675 INR 0.9 11/09/2018 Unknown GFR CALC 7678476 GFR Non Afr Amr >60 mL/min 11/09/2018 Un known GFR CALC 6788706 GFR Afr Amr >60 mL/min 11/09/2018 Unknow n ACT PARTIAL THRMBOPLASTIN TIME 66596 PTT 34.0 Sec[place] nds 11/09/2018 Unknown LIPID GROUP 75307 Cholesterol 186 mg/dL 2018 Unkno wn LIP[facility] GROUP 21170 Triglyceride 229 mg/dL 2018 Unkn own LIPID GROUP 82782 HDL CHOLESTEROL 36 mg/dL 2018 U nknown LIP[facility] GROUP 76070 Chol/HDL Ratio 5.17 ratio 2018 U nknown LIP[facility] GROUP 27107 NON-HDL Chol 150 mg/dL 2018 Unkn own LIP[facility] GROUP 13293 LDL Cholesterol 104 mg/dL 2018 U nknown GFR CALC 8262811 GFR Non Afr Amr >60 mL/min 2018 Un known GFR CALC 8809583 GFR Afr Amr >60 mL/min 2018 Unknow n COMPREHENSIVE METABOLIC 48755 AST 23 U/L 2018 Unknown COMPREHENSIVE METABOLIC 84406 ALT 22 U/L 2018 Unknown COMPREHENSIVE METABOLIC 35414 BUN 15 mg/dL 2018 Unknown COMPREHENSIVE METABOLIC 07240 ALBUMIN 4.1 g/dL 2018 Unknown COMPREHENSIVE METABOLIC 82377 CHLORIDE 106 mmol/L 05/06 Unknown COMPREHENSIVE METABOLIC 97477 Bili Total 0.6 mg/dL 05/06 Unknown COMPREHENSIVE METABOLIC 09814 ALK PHOS 61 U/L 2018 Unknown COMPREHENSIVE METABOLIC 85932 SODIUM 141 mmol/L 05/06 Unknown COMPREHENSIVE METABOLIC 89955 CREATININE 0.91 mg/dL 04/17 Unknown COMPREHENSIVE METABOLIC 43195 CALCIUM 9.2 mg/dL 2018 Unknown COMPREHENSIVE METABOLIC 50987 POTASSIUM 3.8 mmol/L 05/06 Unknown COMPREHENSIVE METABOLIC 24501 Total Protein 7.0 g/dL Unknown COMPREHENSIVE METABOLIC 34893 Glucose 97 mg/dL 2018 Unknown COMPREHENSIVE METABOLIC 19231 Bicarbonate 28 mmol/L 04/17 Unknown COMPREHENSIVE METABOLIC 05951 AGAP 7 mmol/L 2018 Unknown THYROID STIMULATING HORMONE 41595 TSH 2.094 uIU/mL 2018 Unknown COMPLETE BLOOD COUNT 9981626 WBC 5.5 10e9/L 05/07/19 19 Unknown COMPLETE BLOOD COUNT 6467657 RBC 4.61 10e12/L 2018 Unknown COMPLETE BLOOD COUNT 8677862 HEMOGLOBIN 13.6 g/dL 05/07/19 19 Unknown COMPLETE BLOOD COUNT 0119484 HEMATOCRIT 40.0 % 05/07/19 19 Unknown COMPLETE BLOOD COUNT 0396509 MCV 86.8 fL 9 Unknown COMPLETE BLOOD COUNT 3770785 MCH 29.5 pg 9 Unknown COMPLETE BLOOD COUNT 0831027 MCHC 34.0 g/dL 9 Unknown COMPLETE BLOOD COUNT 0400050 PLATELET COUNT 197 10e9/L Unknown COMPLETE BLOOD COUNT 2707933 Mean Plt Volume 10.8 fL Unknown COMPLETE BLOOD COUNT 4526749 Neut Auto 49.6 % 9 Unknown COMPLETE BLOOD COUNT 6405348 Lymph Auto 36.8 % 05/07/19 19 Unknown COMPLETE BLOOD COUNT 7373333 Starke Auto 8.1 % 9 Unknown COMPLETE BLOOD COUNT 5513575 RDW 15.3 % 9 Unknown COMPLETE BLOOD COUNT 2641267 Eos Auto 5.3 % 9 Unknown COMPLETE BLOOD COUNT 3323668 Baso Auto 0.2 % 9 Unknown COMPLETE BLOOD COUNT 4989064 Neutrophil Abs 2.73 10e9/L Unknown COMPLETE BLOOD COUNT 0212481 Lymphocyte Abs 2.02 10e9/L Unknown COMPLETE BLOOD COUNT 0677011 Monocyte Abs 0.45 10e9/L 04/17 Unknown COMPLETE BLOOD COUNT 9293535 Eosinophil Abs 0.29 10e9/L Unknown COMPLETE BLOOD COUNT 4094410 RDW-SD 47.9 fL 9 Unknown COMPLETE BLOOD COUNT [id number] Basophil Abs 0.01 10e9/L 04/17 Unknown Procedures Procedure Codes Date CEFTRIAXONE SODIUM INJECTION CPT-4: J0696 11/09/2018 THER/PROPH/DIAG INJ SC/IM CPT-4: 62047 11/09/2018 ROUTINE VENIPUNCTURE CPT-4: 03522 11/09/2018 COMPREHEN METABOLIC PANEL CPT-4: 52509 11/09/2018 COMPLETE CBC W/AUTO DIFF WBC CPT-4: 69574 11/09/2018 LIPID PANEL CPT-4: 33677 11/09/2018 PROTHROMBIN TIME CPT-4: 30774 11/09/2018 THROMBOPLASTIN TIME PARTIAL CPT-4: 95488 11/09/2018 THER/PROPH/DIAG INJ SC/IM CPT-4: 56854 09/23/2018 KETOROLAC TROMETHAMINE INJ CPT-4: J1885 09/23/2018 ROUTINE VENIPUNCTURE CPT-4: 19614 2018 ASSAY THYROID STIM HORMONE CPT-4: 88898 2018 COMPREHEN METABOLIC PANEL CPT-4: 93999 2018 COMPLETE CBC W/AUTO DIFF WBC CPT-4: 91169 2018 LIPID PANEL CPT-4: 43233 2018 CEFTRIAXONE SODIUM INJECTION CPT-4: J0696 04/14/2018 THER/PROPH/DIAG INJ SC/IM CPT-4: 11094 04/14/2018 CEFTRIAXONE SODIUM INJECTION CPT-4: J0696 03/18/2018 THER/PROPH/DIAG INJ SC/IM CPT-4: 84585 03/18/2018 THER/PROPH/DIAG INJ SC/IM CPT-4: 44806 01/26/2018 KETOROLAC TROMETHAMINE INJ CPT-4: J1885 01/26/2018 CEFTRIAXONE SODIUM INJECTION CPT-4: J0696 12/22/2017 THER/PROPH/DIAG INJ SC/IM CPT-4: 37995 12/22/2017 ROUTINE VENIPUNCTURE CPT-4: 09569 11/14/2016 COMPLETE CBC W/AUTO DIFF WBC CPT-4: 41417 11/14/2016 PT/PTT CPT-4: 1144980 11/14/2016 Vital Signs Date Vital 07/05/2019 Blood [...] 1: 134/82 Code: 8480-6 BMI: 23.9 Code: 13730-7 Heart Rate 1: 100 bpm Height: 6'4" [...] 1: 138/70 Code: 8480-6 BMI: 22.6 Code: 05957-5 Heart Rate 1: 97 bpm Height: 6'4" [...] 1: 142/80 Code: 8480-6 BMI: 20.9 Code: 87568-2 Heart Rate 1: 108 bpm Height: 6'4" Respiratory Rate: 20 bpm SpO2: 97% Tempera ture: 36.6 (C) / 97.9 (F) Weight: 172 lbs 01/26/2018 Blood Pressure 1: 130/82 Code: 8480-6 Heart Rate 1: 98 bpm Respiratory Rate: 18 bpm SpO2: 99% Temperature: 35.7 (C) / 96.3 (F) We ight: 175 lbs 12/22/2017 Blood Pressure 1: 124/68 Code: 8480-6 BMI: 22.3 Code: 74529-5 Heart Rate 1: 100 bpm Height: 6'4" Respiratory Rate: 20 bpm SpO2: 98% Tempera ture: 36.7 (C) / 98.0 (F) Weight: 183 lbs 10/06/2017 Blood Pressure 1: 130/86 Code: 8480-6 BMI: 21.1 Code: 24370-5 Heart Rate 1: 92 bpm Height: 6'4" Respiratory Rate: 18 bpm SpO2: 98% Tempera ture: 36.9 (C) / 98.5 (F) Weight: 173 lbs 02/03/2017 Blood Pressure 1: 144/92 Code: 8480-6 BMI: 20.8 Code: 06307-9 Heart Rate 1: 88 bpm Height: 6'4" Respiratory Rate: 20 bpm SpO2: 97% Tempera ture: 36.7 (C) / 98.1 (F) Weight: 171 lbs 11/25/2016 Blood Pressure 1: 126/84 Code: 8480-6 Heart Rate 1: 76 bpm Respiratory Rate: 20 bpm SpO2: 96% Temperature: 36.9 (C) / 98.4 (F) We ight: 170 lbs 11/14/2016 Blood Pressure 1: 126/82 Code: 8480-6 BMI: 20.7 Code: 22012-1 Heart Rate 1: 86 bpm Height: 6'4" Respiratory Rate: 18 bpm SpO2: 96% Tempera ture: 35.8 (C) / 96.5 (F) Weight: 170 lbs 04/02/2016 Blood Pressure 1: 124/78 Code: 8480-6 Heart Rate 1: 88 bpm Respiratory Rate: 24 bpm SpO2: 97% Temperature: 36.1 (C) / 97.0 (F) We ight: 161 lbs 11/29/2015 Blood Pressure 1: 124/68 Code: 8480-6 BMI: 19.2 Code: 98512-3 Heart Rate 1: 94 bpm Height: 6'4" Respiratory Rate: 18 bpm SpO2: 97% Tempera ture: 36.1 (C) / 97.0 (F) Weight: 158 lbs 06/27/2015 Blood Pressure 1: 128/78 Code: 8480-6 BMI: 18.7 Code: 24751-9 Heart Rate 1: 72 bpm Height: 6'4" Respiratory Rate: 22 bpm SpO2: 98% Tempera ture: 35.9 (C) / 96.6 (F) Weight: 154 lbs 05/24/2015 Blood Pressure 1: 112/78 Code: 8480-6 BMI: 19.7 Code: 72238-7 Heart Rate 1: 78 bpm Height: 6'4" [...] care Encounters Encounter Performer Location Codes Date ([id number]) OFFICE/OUTPATIENT VISIT EST Diagnosis: Other specified local infections of the skin and subcutaneous tissue[ICD10: L08.89] Diagnosis: DM w/o complication type II, uncontrolled[ICD10: E11.65] Diagnosis: Right leg DVT[ICD10: I82.401] Janneth SHRESTHA DO [facility] CPT-4: 10818 07/05/2019 ([id number]) OFFICE/OUTPATIENT VISIT EST Diagnosis: 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, implant, or graft[ICD10: T85.818A] Diagnosis: DM w/o complication type II, uncontrolled[ICD10: E11.65] Janneth SHRESTHA DO [facility] CPT-4: 72271 05/17/2019 ([id number]) OFFICE/OUTPATIENT VISIT EST Diagnosis: Acute dermatitis[ICD10: L30.9] Diagnosis: DM w/o complication type II, uncontrolled[ICD10: E11.65] Diagnosis: Right leg DVT[ICD10: I82.401] Janneth SHRESTHA DO [facility] CPT-4: 98267 05/02/2019 ([id number]) OFFICE/OUTPATIENT VISIT EST Diagnosis: DM w/o complication type II, uncontrolled[ICD10: E11.65] Diagnosis: Allergic dermatitis[ICD10: L23.9] Diagnosis: Right leg DVT[ICD10: I82.401] Diagnosis: Paroxysmal atrial fibrillation[ICD10: I48.0] Diagnosis: Right calf pain[ICD10: M79.661] Janneth SHRESTHA [facility] CPT-4: 28958 04/25/2019 ([id number]) OFFICE/OUTPATIENT VISIT EST Diagnosis: DM w/o complication type II, uncontrolled[ICD10: E11.65] Diagnosis: 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, implant, or graft[ICD10: T85.818A] Diagnosis: Essential hypertension[ICD10: I10] Janneth SHRESTHA [employer] [facility] CPT-4: 68123 04/11/2019 ([id number]) OFFICE/OUTPATIENT VISIT EST Diagnosis: Sinus tachycardia[ICD10: R00.0] Diagnosis: Folliculitis[ICD10: L73.9] Janneth HARDY [facility] CPT-4: 30071 03/01/2019 ([id number]) OFFICE/OUTPATIENT VISIT EST Diagnosis: Cellulitis of left lower limb[ICD10: L03.116] Diagnosis: Tendinitis of left peroneus longus tendon[ICD10: M76.72] Janneth SHRESTHA [facility] CPT-4: 50502 11/18/2018 ([id number]) OFFICE/OUTPATIENT VISIT EST Diagnosis: Cellulitis of left foot[ICD10: L03.116] Diagnosis: Spontaneous ecchymoses[ICD10: R23.3] Diagnosis: Venous insufficiency (chronic) (peripheral)[ICD10: I87.2] Diagnosis: Mixed hyperlipidemia[ICD10: E78.2] Vania RAY [employer]andra CLARK [employer] [facility] CPT-4: 53487 11/09/2018 ([id number]) OFFICE/OUTPATIENT VISIT EST Diagnosis: Venous insufficiency (chronic) (peripheral)[ICD10: I87.2] Diagnosis: Cellulitis of left lower limb[ICD10: L03.116] Diagnosis: Pain in right foot[ICD10: M79.671] Vania RAY [employer] AMBER [employer] [facility] CPT-4: 07032 10/13/2018 ([id number]) OFFICE/OUTPATIENT VISIT EST Diagnosis: Low back pain[ICD10: M54.5] Vania Taylor [facility] [employer] [facility] CPT-4: 23392 09/23/2018 ([id number]) OFFICE/OUTPATIENT VISIT EST Diagnosis: Gastro-esophageal reflux disease without esophagitis[ICD10: K21.9] Diagnosis: Dysphagia, pharyngoesophageal phase[ICD10: R13.14] Janneth Sriramchrista NORWOODJANNETH Liza [employer]OG[employer] [facility] CPT-4: 71475 09/06/2018 ([id number]) OFFICE/OUTPATIENT VISIT EST Diagnosis: Tinea corporis[ICD10: B35.4] Vania CLARK [employer] [facility] CPT-4: 19190 07/15/2018 ([id number]) OFFICE/OUTPATIENT VISIT EST Diagnosis: Cellulitis of left toe[ICD10: L03.032] Diagnosis: Mixed hyperlipidemia[ICD10: E78.2] Mandy RAY [employer] AMBER [employer] [facility] CPT-4: 12132 2018 OFFICE/OUTPATIENT VISIT EST Diagnosis: Cellulitis of left toe[ICD10: L03.032] Diagnosis: Unspecified disturbances of skin sensation[ICD10: R20.9] Mandy WARD [employer] AMBER [employer] [facility] CPT-4: 53040 04/14/2018 ([id number]) OFFICE/OUTPATIENT VISIT EST Diagnosis: Cellulitis of left toe[ICD10: L03.032] Diagnosis: Insomnia, unspecified[ICD10: G47.00] Vania SHRESTHA [facility] CPT-4: 82019 03/18/2018 ([id number]) OFFICE/OUTPATIENT VISIT EST Diagnosis: Other postprocedural complications and disorders of the circulatory system, not elsewhere classified[ICD10: I97.89] Diagnosis: Rash and other nonspecific skin eruption[ICD10: R21] Diagnosis: Pain in right leg[ICD10: M79.604] Vania SHRESTHA DO [facility] CPT-4: 15170 01/26/2018 ([id number]) OFFICE/OUTPATIENT VISIT EST Diagnosis: Other postprocedural complications and disorders of the circulatory system, not elsewhere classified[ICD10: I97.89] Diagnosis: Cellulitis of right lower limb[ICD10: L03.115] Vania SHRESTHA [facility] CPT-4: 66235 12/22/2017 ([id number]) OFFICE/OUTPATIENT VISIT EST Diagnosis: Acute sinusitis, unspecified[ICD10: J01.90] Diagnosis: Unspecified disturbances of skin sensation[ICD10: R20.9] Vania SHRESTHA [facility] CPT-4: 40115 10/06/2017 ([id number]) OFFICE/OUTPATIENT VISIT EST Diagnosis: Primary insomnia[ICD10: F51.01] Diagnosis: Pain in left shoulder[ICD10: M25.512] Diagnosis: Poisoning by other parasympatholytics [anticholinergics and antimuscarinics] and spasmolytics, accidental (unintentional), sequela[ICD10: T44.3X1S] Janneth SHRESTHA [facility] CPT-4: 03814 02/03/2017 OFFICE/OUTPATIENT VISIT EST Diagnosis: Insomnia, unspecified[ICD10: G47.00] Diagnosis: Constipation, unspecified[ICD10: K59.00] Diagnosis: Spontaneous ecchymoses[ICD10: R23.3] Diagnosis: Pain in left foot[ICD10: M79.672] [facility] CPT-4: 67407 11/25/2016 OFFICE/OUTPATIENT VISIT EST Diagnosis: Insomnia, unspecified[ICD10: G47.00] Diagnosis: Constipation, unspecified[ICD10: K59.00] Diagnosis: Spontaneous ecchymoses[ICD10: R23.3] Diagnosis: Other specified local infections of the skin and subcutaneous tissue[ICD10: L08.89] Vania [facility] CPT-4: 99 213 11/14/2016 ([id number]) OFFICE/OUTPATIENT VISIT EST Diagnosis: Acute upper respiratory infection, unspecified[ICD10: J06.9] Ester [facility]ODQUELINE [facility] CPT-4: 73048 04/02/2016 ([id number]) OFFICE/OUTPATIENT VISIT EST Diagnosis: Acute upper respiratory infection, unspecified[ICD10: J06.9] Ester [facility]ODQUEFORMERLY [facility] CPT-4: 15299 11/29/2015 ([id number]) OFFICE/OUTPATIENT VISIT EST Diagnosis: Pain in thoracic spine[ICD10: M54.6] Diagnosis: Paresthesia of skin[ICD10: R20.2] Diagnosis: Dysphagia, unspecified[ICD10: R13.10] Ester Grande THERON KUHN [facility] CPT-4: 22991 06/27/2015 ([id number]) OFFICE/OUTPATIENT VISIT NEW Diagnosis: Pain in left leg[ICD10: M79.605] Diagnosis: Male erectile dysfunction, unspecified[ICD10: N52.9] Diagnosis: Dysphagia, unspecified[ICD10: R13.10] Ester Grande THERON KUHN [facility] CPT-4: 18956 05/24/2015 Plan of Care Planned Activity Notes [...] E11.65 07/05/2019 Patient Education: cephalexin- [employer] Coupon [id number] https://www.myRete/sampleDasher/resources/getResource/61/l9462a95-8808-9897-b7 Completed 07/05/2019 Visit Diagnosis Plan: DM w/o [...] : T85.818A 05/17/2019 Appointment: Janneth Shrestha WPtel: [address] [place], [place] [phone] FOLLOW UP 05/17/2019 Patient Education: Metformin Patient [...] E11.65 05/02/2019 Appointment: Janneth Shrestha WPtel: [phone] [facility] [place] FOLLOW UP 05/02/2019 Patient Education: metoprolol succinate- [employer] Co upon [id number] https://www.myRete/sampleDasher/resources/getResource/61/46345hb9-u1m4-259e-q1 Completed 05/02/2019 Visit Diagnosis Plan: Paroxysmal atrial [...] E11.65 04/25/2019 Appointment: [phone] [facility] [facility] 04/25/2019 Patient Education: Metformin Patient Savings Message Alert Completed 04/25/2019 Patient Education: prednisone- [employer] Coupon [id number] https://www.myRete/Taifatech/resources/getResource/61/7zy84qu9-h7hh-4e69-ax Completed 04/25/2019 Visit Diagnosis Plan: DM w/o [...] : T85.818A 04/11/2019 Appointment: Janneth Shrestha WPtel: [address] [place] [address] ACUTE ILLNESS 04/11/2019 Patient Education: metoprolol succinate- [employer] Co upon [id number] https://www.myRete/Taifatech/resources/getResource/61/dw093810-80ta-3w96-56 Completed 04/11/2019 Patient Education: Metformin Patient Savings Message Alert Completed 04/11/2019 Patient Education: cephalexin- [employer] Coupon [id number] https://www.myRete/Taifatech/resources/OY LX TherapiesResource/61/9jyz5802-5r3o-9733-xe Completed 04/11/2019 Visit Diagnosis Plan: Folliculitis Discussion: Bactrim and topical bactroban ICD-9 : 704.8 ICD-10 : L73.9 03/01/2019 Visit Diagnosis Plan: Sinus tachycardia Discussion: St art low dose metoprolol ER 25mg daily Monitor pulse Sees Cardiology next month ICD-9 : 427.89 ICD-10 : R00.0 03/01/2019 Appointment: Janneth Shrestha WPtel: [address] [place] [address] FOLLOW UP 03/01/2019 Patient Education: mupirocin- [employer] Coupon [id number] https://www.myRete/Taifatech/resources/getResource/61/sh278vl6-66jc-863f-hb Completed 03/01/2019 Appointment: Janneth Shrestha WPtel: [address] [place], [place] [phone] [place] CANCELED 12/20/2018 Visit Diagnosis Plan: Cellulitis [...] : M76.72 11/18/2018 Appointment: [facility] [place] CANC[facility] 11/18/2018 Appointment: [facility]ann[facility]restha [facility]Ptel[facility] [phone] [facility] [place] FOLLOW [facility] 11/18/2018 Patient Education: doxycycline monohydrate- [employer] Coupon [id number] https://www.myRete/sampleDasher/resources/getResource/61/ekp66902-k8b7-18b3-9t Completed 11/18/2018 Patient Education: prednisone- [employer] Coupon [id number] https://www.myRete/samplemd/resources/getResource/61/01kz7v7o-4ff9-6662-th Completed 11/18/2018 Care Plan: Referral Order SNOMED-CT : 30 [id number] Pending 11/18/2018 Visit Diagnosis Plan: Venous insufficiency [...] evaluated in an ED whether it be [place] or wherever he's traveling. discussed the risk [...] ICD-10 : R23.3 11/09/2018 Appointment: Vania García [address] [place], [place] [phone] ACUTE ILLNESS 11/09/2018 Patient Education: clindamycin HCl- [employer] Coupon [id number] https://www.Taifatech.unbound technologies/sampleDasher/resources/getResource/61/54yz48e4-gk95-1kh8-8b Completed 11/09/2018 Appointment: Janneth Shrestha WPtel: [phone] [id number] CANCELED 10/19/2018 Visit Diagnosis Plan: Pain in [...] ICD-10 : L03.116 10/13/2018 Appointment: Vania García [address] [place], [place] [phone] Patient cant pay copay till when he [...] ICD-10 : M54.5 09/23/2018 Appointment: Vania García [address] [place] [address] ACUTE ILLNESS 09/23/2018 Patient Education: Medrol (Brenden)- [employer] Coupon [phone] [id number] https://www.myRete/Taifatech/resources/getResource/61/ikxo431l-7413-16k2-23 Completed 09/23/2018 Visit Diagnosis Plan: Dysphagia, pharyngoesophageal ph ase Discussion: Referral for EGD ICD-9 : 787.24 ICD-10 : R13.14 09/06/2018 Visit Diagnosis Plan: Gastro-esophageal reflux disease without esophagitis Discussion: Start omeprazole ICD-9 : 530.81 ICD-10 : K21.9 09/06/2018 Appointment: [facility]ann[facility]restha [facility]Ptel[facility] [phone] [facility] [facility] ACUTE ILLNESS 09/06/2018 Patient Education: omeprazole- [employer] Coupon [id number] [id number] https://www.myRete/Taifatech/resources/getResource/61/986qe608-47h7-670x-00 Completed 09/06/2018 Care Plan: Referral Order SNOMED-CT : 30 5295738 Pending 09/06/2018 Visit Diagnosis Plan: Tinea corporis Discussion: nysta tin to be used bid until rash gone and then an additional 2 days. diflucan every 3 days for 3 doses. keep area clean and dry with no moisturizers. call office if no improvement in 2 weeks or if worsening. ICD-9 : 110.5 ICD-10 : B35.4 07/15/2018 Appointment: Vania García [facility] [facility] 07/15/2018 Patient Education: nystatin- [employer] Coupon [id number] https://www.myRete/Taifatech/resources/getResource/61/30shf918-w7el-52rd-1g Completed 07/15/2018 Patient Education: Plavix- [employer] Coupon 98359480 https://www.myRete/Taifatech/resources/getResource/61/50bo5s17-f69i-29qc-05 fa-a464m7102162.pdf Completed 07/15/2018 Patient Education: cyclobenzaprine- [employer] Coupon [id number] https://www.Taifatech.unbound technologies/samplemd/resources/getResource/61/98043a1n-9a84-59m2-ma Completed 07/15/2018 Visit Diagnosis Plan: Cellulitis of [...] ICD-10 : L03.032 2018 Appointment: Mandy Hollins [facility] [place] [address] FOLLOW UP 2018 Patient Education: mupirocin- [employer] Coupon [id number] https://www.Taifatech.unbound technologies/samplemd/resources/getResource/61/y4eu03v8-0088-7148-0o Completed 2018 Visit Diagnosis Plan: Cellulitis of [...] ICD-10 : R20.9 04/14/2018 Appointment: Mandy Hollins [address] [place] [address] FOLLOW UP 04/14/2018 Visit Diagnosis Plan: Cellulitis [...] ICD-10 : G47.00 03/18/2018 Appointment: Vania García [address] [place], [place] [phone] ACUTE ILLNESS 03/18/2018 Patient Education: cyclobenzaprine- [employer] Coupon [id number] https://www.Taifatech.com/samplemd/resources/getResource/61/1126i037-3hg0-619s-p7 Completed 03/18/2018 Visit Diagnosis Plan: Rash and other nonspecific skin eruption Discussion: triamcinolone ordered to be used as directed. ICD-9 : 782.1 ICD-10 : R21 01/26/2018 Visit Diagnosis Plan: Other postprocedur al complications and disorders of the circulatory system, not elsewhere classified Discussion: discussed with dr. shrestha and patient was instructed to contact [facility] due to uncontrolled pain, continued erythema, patient needs to be re-evaluated by the surgeon. 60 mg toradol given to patient. patient verbalized understanding and voiced he will contact them today for an appointment. ICD-9 : 997.1 ICD-10 : I97.89 01/26/2018 Appointment: Van[facility] Garc[facility] [facility] Follow Up 01/26/2018 Appointment: Janneth Shrestha WPtel: [phone] [facility] [address] NO SHOW 01/06/2018 Visit Diagnosis Plan: [...] ICD-10 : I97.89 12/22/2017 Appointment: Vania García [address] [place], [place] [phone] ACUTE ILLNESS 12/22/2017 Visit Diagnosis Plan: Unspecified [...] ICD-10 : J01.90 10/06/2017 Appointment: Vania García [address] [place], [place] [phone] ACUTE ILLNESS 10/06/2017 Patient Education: Patient Medication Summary Completed 10/06/2017 Appointment: Vania García [address] [place], [place] [phone] ER Follow UP 08/17/2017 Appointment: Vania García [address] [place], [place] [phone] [place] CANCELED 07/03/2017 Appointment: Janneth Shrestha WPtel: [address] [facility] [place] canceled at 8:05 this morning. 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 ICD-9 : 729.5 ICD-10 : M79.672 11/25/2016 Visit Diagnosis Plan: Insomnia, unspecified Recommenda tions: resolved with lunesta. continue taking as prescribed. ICD-9 : 780.52 ICD-10 : G47.00 11/25/2016 Appointment: Vania García [address] [place] [address] FOLLOW UP 11/25/2016 Patient Education: Patient Medication [...] ICD-10 : K59.00 11/14/2016 Appointment: Vania García [address] [place] [address] ACUTE ILLNESS 11/14/2016 Patient Education: Patient Medication Summary Completed 11/14/2016 Visit Diagnosis Plan: Acute upper respiratory infectio n, unspecified Discussion: Rxs as above Continue OTC and supportive meds Encouraged smoking cessation Follow up PRN ICD-9 : 465.9 ICD-10 : J06.9 04/02/2016 Appointment: Ester Grande [address] [place] [address] ACUTE ILLNESS 04/02/2016 Patient Education: Patient Medication Summary Completed 04/02/2016 Visit Plan: Rxs as above Supportive care reviewed Follow up PRN 11/29/2015 Appointment: Ester Grande [address] [place] [address] 11/27 confirmed~sl ACUTE ILLNESS 11/29/2015 Patient Education: [...] for pain 06/27/2015 Appointment: [facility] [place] 06/25 lm ~sl 06/26 phone not on~sl FOLLOW UP 06/27/2015 Patient Education: Patient Medication Summary Completed 06/27/2015 Care Plan: X-RAY EXAM RIBS UNI 2 VIEWS L OINC : 61900-0 Pending 06/27/2015 Referral: Héctor Woodard [phone] [facility] [place] 05/29 Scheduled with sena ~sl Appointment Re quested 06/26/2015 Referral: Cameron Khanna WPtel: [phone] [facility] [place] Referral Initiated 06/11/2015 Referral: Marco Antonio Green WPtel: [phone] [id number] [place] 05/30/15 Needs to be there at pre op time per ~sl Initiated 06/04/2015 Visit Plan: Will get all necessary refer rals set up - CTS, Uro and G/S Swallow study and routine labs ordered Will further investigate left leg pain with EMG if not cardio related 05/24/2015 Appointment: [facility] [facility] 05/24/2015 Patient Education: Patient Medication Summary Completed 05/24/2015 Care Plan: Referral Order SNOMED-CT : 30 [id number] Pending 05/24/2015 Care Plan: Referral Order SNOMED-CT : 30 7416255 Pending 05/24/2015 Care Plan: Referral Order SNOMED-CT : 30 1226529 Pending 05/24/2015 Referral: Sudheer [facility]ann [phone] [facility] [place] Referral Appointment Requested Referral: Alfonzo Andujar WPtel: [address] [facility] [place] Referral Initiated Referral: [facility] [address] [id number] [place] Referral Completed Referral: Cameron Khanna WPtel: [address] [facility] [place] Referral Appointment Requested Referral: RoseBrianna Katherine WPtel: [address] [address] [place] Referral Initiated Referral: Yamilet Alannavenice WPtel: [address] [id number] [place] 05/24/15 [facility] office suggested he see another card. ~sl Initiated Referral: Alfonzo Andujar WPtel: [address] [place] [address] [place] Referral Appointment Requested Referral: Marco Antonio Green WPtel: [address] [place] [address] [place] Referral Appointment Requested Instructions Comment . [...]
--- OUTSIDE RECORDS SUMMARY | 2019-08-06 10:22 | XMS REPORT | CCD ---
Author Author [place] Organization JANNETH SHRESTHA DO [facility] Address [address] [place] [address] Phone Unavailable Care Team Providers Care E Learning Developer Name Role Phone Janneth Shrestha D.O., PP Unavailable CCM Unavailable Summary Purpose Interface Exchange Insurance Providers Payer name Policy type / Coverage type Covered green party ID Effective Begin Date Effective End Date Blue Cross Blue Shield Blue Cross/Blue Shield [id number] Unknown Family History Family History data not found Social History Social History Element Codes Description Effective Dates Marital status Unknown 05/24/2015 Number of children Unknown 2 05/24/2015 Employment Unknown Currently employed 05/24/[address]: [id number] 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 [...] 50 mg tablet,extended release 24 hr RxNorm: 766257 1 Tablet(s) Oral QD 08/01/2019 10/30/2019 Active cephalexin 500 mg tablet RxNorm: 801014 1 Tablet(s) Oral three times a day 07/05/2019 07/12/2019 Active cyclobenzaprine 10 mg tablet RxNorm: 278507 TAKE ONE TA BLET BY MOUTH AT BEDTIME NEEDED 05/20/2019 No Stop Date Active metformin ER 1,000 mg tablet,extended release 24hr RxNorm: 1 666877 1 Tablet(s) Oral two times a day replaces 500mg dose 05/17/2019 11/13/2019 Active [AttnRPh: Saving apply/adjudicate RxGRP:[id number] RxBIN:[id number] RxPCN: ID#:[id number]] ReliOn Prime Test Strips RxNorm: 1 Unit [...] 05/01/2019 Inactive Plavix 75 mg tablet RxNorm: 954458 TAKE ONE TABLET BY MOUTH DAILY 0 04/25/2019 04/26/2019 Inactive Plavix 75 mg tablet RxNorm: 185760 TAKE ONE TABLET BY MOUTH DAILY 0 04/25/2019 04/24/2019 Inactive Xarelto 20 mg tablet RxNorm: 4840461 1 Tablet(s) Oral QD 04/25/2019 0 07/04/2019 Inactive amiodarone 200 mg tablet RxNorm: 235200 1 Tablet(s) Oral QD 020 07/04/2019 Inactive metformin ER 500 mg 24 hr tablet,extended release RxNorm: 18 13535 1 Tablet(s) Oral two times a day 04/25/2019 05/16/2019 Inactive prednisone 20 mg tablet RxNorm: 543642 1 Tablet(s) Oral two jn es a day 04/25/2019 05/01/2019 Inactive aspirin 81 mg tablet,delayed release RxNorm: 114008 1 Tablet(s) Oral QD 04/11/2019 No Stop Date Active pantoprazole 40 mg tablet,delayed release RxNorm: 047999 1 Tabl et(s) Oral QAM 04/11/2019 No Stop Date Active Vitamin C 1,000 mg tablet RxNorm: 326723 1 Tablet(s) Oral QD 2019 No Stop Date Active Xarelto 15 mg tablet RxNorm: 9960881 1 Tablet(s) Oral QD 04/11/2019 0 04/24/2019 Inactive metformin ER 500 mg 24 hr tablet,extended release RxNorm: 18 04621 1 Tablet(s) Oral QD 04/11/2019 04/24/2019 Inactive cephalexin 500 mg capsule RxNorm: 671261 1 Capsule(s) Oral thre e times a day 04/11/2019 04/18/2019 Inactive metoprolol succinate ER 50 mg tablet,extended release 24 hr RxNorm: 085428 1 Tablet(s) Oral QD replaces 25mg dose 04/11/2019 05/01/2019 Inactive cyclobenzaprine 10 mg tablet RxNorm: 367734 TAKE ONE TA BLET BY MOUTH EVERY NIGHT AT BEDTIME NEEDED 03/11/2019 No Stop Date Active mupirocin 2 % topical ointment RxNorm: 944734 Applicati on Topical two times a day 03/01/2019 04/10/2019 Inactive metoprolol succinate ER 25 mg tablet,extended release 24 hr RxNorm: 284091 1 Tablet(s) Oral QD 03/01/2019 04/24/2019 Inactive Bactrim DS 800 mg-160 mg tablet RxNorm: 073335 1 Tablet(s) Oral two times a day 03/01/2019 03/11/2019 Inactive cyclobenzaprine 10 mg tablet RxNorm: 600459 TAKE ONE TA BLET BY MOUTH EVERY NIGHT AT BEDTIME NEEDED 01/10/2019 03/10/2019 Inactive Plavix 75 mg tablet RxNorm: 239854 TAKE ONE TABLET BY MOUTH DAILY 1 03/12/2018 04/24/2019 Inactive omeprazole 40 mg capsule,delayed release RxNorm: 197518 TAKE ONE CAPSULE BY MOUTH EVERY NIGHT AT BEDTIME FOR REFLUX 01/10/2019 05/16/2019 Inactive tramadol 50 mg tablet RxNorm: 612934 1 Tablet(s) Oral f our times a day as needed 01/03/2019 01/03/2019 Inactive doxycycline monohydrate 100 mg capsule RxNorm: 1226408 1 Capsule(s) Oral two times a day 11/22/2018 12/13/2018 Inactive prednisone 20 mg tablet RxNorm: 995794 1 Tablet(s) Oral two jn es a day 11/22/2018 11/29/2018 Inactive Levaquin 750 mg tablet RxNorm: 958247 Tablet(s) Oral 11/18/201802/28 Inactive prednisone 20 mg tablet RxNorm: 564925 1 Tablet(s) Oral two jn es a day 11/18/2018 11/21/2018 Inactive tramadol 50 mg tablet RxNorm: 391322 Tablet(s) Oral 11/18/20182018 Inactive doxycycline monohydrate 100 mg capsule RxNorm: 7689982 1 Capsule(s) Oral two times a day 11/18/2018 11/21/2018 Inactive Plavix 75 mg tablet RxNorm: 804636 TAKE ONE TABLET BY MOUTH DAILY 0 11/10/2018 01/08/2019 Inactive clindamycin HCl 300 mg capsule RxNorm: 383780 1 Capsule (s) Oral three times a day 11/09/2018 11/19/2018 Inactive Keflex 500 mg capsule RxNorm: 279627 1 Capsule(s) PO BID 10/13/2018 0 10/22/2018 Inactive Medrol (Brenden) 4 mg tablets in a dose pack RxNorm: 131848 Tablet(s) take as directed PO 09/23/2018 10/12/2018 Inactive omeprazole 40 mg capsule,delayed release RxNorm: 118944 1 Capsule(s) PO QHS for reflux 09/06/2018 11/04/2018 Inactive Diflucan 150 mg tablet RxNorm: 575926 1 Tablet(s) PO Q72H 07/15/2018 09/05/2018 Inactive cyclobenzaprine 10 mg tablet RxNorm: 401204 1 Tablet(s) PO QHS as needed 07/15/2018 10/12/2018 Inactive nystatin 100,000 unit/gram topical cream RxNorm: 140962 1 Gram( s) TOP BID 07/15/2018 09/05/2018 Inactive Plavix 75 mg tablet RxNorm: 656758 1 Tablet(s) PO QD 07/15/201810/12 Inactive cyclobenzaprine 10 mg tablet RxNorm: 173130 1 Tablet(s) PO QHS as needed 06/10/2018 06/09/2018 Inactive cyclobenzaprine 10 mg tablet RxNorm: 215557 TAKE ONE TA BLET BY MOUTH EVERY NIGHT AT BEDTIME NEEDED 05/10/2018 06/10/2018 Inactive mupirocin 2 % topical ointment RxNorm: 129683 1 Application TOP BID 2018 05/25/2018 Inactive 22 gram cyclobenzaprine 10 mg tablet RxNorm: 661665 1 Tablet(s) PO QHS as needed 04/14/2018 06/09/2018 Inactive doxycycline hyclate 100 mg tablet RxNorm: 0177710 1 Tablet(s) PO BI D 04/14/2018 04/23/2018 Inactive cyclobenzaprine 10 mg tablet RxNorm: 731842 1 Tablet(s) PO QHS as needed 04/07/2018 04/13/2018 Inactive Bactrim DS 800 mg-160 mg tablet RxNorm: 374185 1 Tablet(s) PO BID 0 03/18/2018 03/27/2018 Inactive cyclobenzaprine 10 mg tablet RxNorm: 825973 1 Tablet(s) PO QHS as needed 03/18/2018 04/06/2018 Inactive triamcinolone acetonide 0.1 % topical cream RxNorm: 2272711 APPLY TO AFFECTED AREA(S) TWO TIMES A DAY 02/03/2018 02/12/2018 Inactive triamcinolone acetonide 0.1 % topical cream RxNorm: 5583699 1 Application TOP BID 01/26/2018 02/02/2018 Inactive Medrol (Brenden) 4 mg tablets in a dose pack RxNorm: 605301 TAKE BY MOUTH INSTRUCTED - PER PACKAGE INSTRUCTIONS 12/11/2017 12/16/2017 Inactive Medrol (Brenden) 4 mg tablets in a dose pack RxNorm: 602450 Tablet(s) P O 10/06/2017 12/10/2017 Inactive Lunesta 3 mg tablet RxNorm: 396882 1 Tablet(s) PO QHS 11/25/201608/2016 Inactive Lunesta 3 mg tablet RxNorm: 005709 1 Tablet(s) PO QHS 11/14/201610/2016 Inactive Bactrim DS 800 mg-160 mg tablet RxNorm: 413334 1 Tablet(s) PO BID 0 11/14/2016 11/23/2016 Inactive Epi E-Z Pen 0.3 mg/0.3 mL injection, auto-injector RxNorm: 1 025633 Milliliter(s) IM Use as Directed 06/25/2016 09/05/2018 Inactive amoxicillin 875 mg tablet RxNorm: 953069 1 Tablet(s) PO BID 017 04/11/2016 Inactive prednisone 20 mg tablet RxNorm: 816891 1 Tablet(s) PO BID 04/02/2016 04/06/2016 Inactive azithromycin 250 mg tablet RxNorm: 244300 2 Tablet(s) P O on day one then 1 tab on days 2-5 11/29/2015 11/28/2015 Inactive Medrol (Brenden) 4 mg tablets in a dose pack RxNorm: 430928 Take as directed 11/29/2015 11/13/2016 Inactive meloxicam 15 mg tablet RxNorm: 153649 1 Tablet(s) PO QD 07/02/2015 Inactive Chantix Starting Month Box 0.5 mg (11)-1 mg (42) table ts in dose pack RxNorm: 228158 Tablet(s) PO As Directed 06/20/2015 07/10/2015 Inactive omeprazole 40 mg capsule,delayed release RxNorm: 215733 1 Capsu le(s) PO QD 05/31/2015 11/13/2016 Inactive omeprazole 40 mg capsule,delayed release RxNorm: 096988 1 Capsu le(s) PO QD 05/31/2015 05/30/2015 Inactive Multivitamin And Mineral oral RxNorm: oral No Start Date Active Wellbutrin SR 150 mg tablet,sustained-release RxNorm: 014567 1 Tablet(s) PO BID No Start Date 11/13/2016 Inactive gabapentin 100 mg capsule RxNorm: 330413 1 Capsule(s) PO TID No Sta rt Date 03/17/2018 Inactive Chantix Starting Month Box 0.5 mg (11)-1 mg (42) table ts in dose pack RxNorm: 665059 Tablet(s) PO As Directed No Start Date 06/19/2015 Inactive Eliquis 5 mg tablet RxNorm: 5278960 1 Tablet(s) PO BID No Start Date 03/17/2018 Inactive Lactobacillus acidophilus-Bifidobacterium longum oral RxNorm: oral No Start Date 07/04/2019 Inactive aspirin 325 mg tablet RxNorm: 485914 1 Tablet(s) PO QD No Start Date 11/13/2016 Inactive clindamycin HCl 300 mg capsule RxNorm: 603185 2 Capsule(s) PO Q8H N o Start Date 03/17/2018 Inactive Fish Oil 1,000 mg (120 mg-180 mg) capsule RxNorm: 1 Caps ule(s) PO QD No Start Date 09/05/2018 Inactive aspirin 81 mg tablet RxNorm: 998738 1 Tablet(s) PO QD No Start Date 1 03/28/2017 Inactive Fish Oil 1,000 mg capsule RxNorm: 1 Capsule(s) PO QD No Start Date 11/13/2016 Inactive Baby Aspirin 81 mg chewable tablet RxNorm: 724965 1 Tablet(s) P O BID No Start Date 02/02/2017 Inactive Xarelto 10 mg tablet RxNorm: 2648479 1 Tablet(s) PO QD No Start Date 01/25/2018 Inactive tramadol 50 mg tablet RxNorm: 138409 1-2 Tablet(s) PO Q6H No Start Date 03/17/2018 Inactive meloxicam 15 mg tablet RxNorm: 873259 1 Tablet(s) PO QD No Start Da te 07/01/2015 Inactive Epi E-Z Pen 0.3 mg/0.3 mL injection, auto-injector RxNorm: 1 093303 Milliliter(s) IM Use as Directed No Start Date 06/24/2016 Inactive Plavix 75 mg tablet RxNorm: 727995 1 Tablet(s) PO QD No Start Date Inactive Medication Administered No Medication Administered data Immunizations No Immunization data Results Observation Observation Code Item Item Code Result Date S [facility] Location COMPREHENSIVE METABOLIC 20254 AST 25 U/L 2018 Unknown COMPREHENSIVE METABOLIC 63110 ALT 28 U/L 2018 Unknown COMPREHENSIVE METABOLIC 70068 BUN 13 mg/dL 2018 Unknown COMPREHENSIVE METABOLIC 20431 ALBUMIN 4.2 g/dL 2018 Unknown COMPREHENSIVE METABOLIC 94716 CHLORIDE 104 mmol/L 11/09 Unknown COMPREHENSIVE METABOLIC 48150 Bili Total 0.5 mg/dL 11/09 Unknown COMPREHENSIVE METABOLIC 32973 ALK PHOS 72 U/L 2018 Unknown COMPREHENSIVE METABOLIC 78358 SODIUM 139 mmol/L 11/09 Unknown COMPREHENSIVE METABOLIC 82508 CREATININE 0.98 mg/dL 10/18 Unknown COMPREHENSIVE METABOLIC 54308 CALCIUM 9.1 mg/dL 2018 Unknown COMPREHENSIVE METABOLIC 69473 POTASSIUM 3.7 mmol/L 11/09 Unknown COMPREHENSIVE METABOLIC 02050 Total Protein 7.2 g/dL Unknown COMPREHENSIVE METABOLIC 06810 Glucose 137 mg/dL 2018 Unknown COMPREHENSIVE METABOLIC 25409 Bicarbonate 24 mmol/L 10/18 Unknown COMPREHENSIVE METABOLIC 77451 AGAP 11 mmol/L 2018 Unknown COMPLETE BLOOD COUNT 6004391 WBC 4.6 10e9/L 11/10/19 19 Unknown COMPLETE BLOOD COUNT 7058010 RBC 4.88 10e12/L 2018 Unknown COMPLETE BLOOD COUNT 3776651 HEMOGLOBIN 14.7 g/dL 11/10/19 19 Unknown COMPLETE BLOOD COUNT [id number] HEMATOCRIT 43.7 % 11/10/19 19 Unknown COMPLETE BLOOD COUNT 2301589 MCV 89.5 fL 9 Unknown COMPLETE BLOOD COUNT 8647404 MCH 30.1 pg 9 Unknown COMPLETE BLOOD COUNT 6872313 MCHC 33.6 g/dL 9 Unknown COMPLETE BLOOD COUNT [id number] PLATELET COUNT 179 10e9/L Unknown COMPLETE BLOOD COUNT [id number] Mean Plt Volume 11.6 fL Unknown COMPLETE BLOOD COUNT 0425122 Neut Auto 55.5 % 9 Unknown COMPLETE BLOOD COUNT [id number] Lymph Auto 28.7 % 11/10/19 19 Unknown COMPLETE BLOOD COUNT 0468445 Greer Auto 7.9 % 9 Unknown COMPLETE BLOOD COUNT 4317662 RDW 13.2 % 9 Unknown COMPLETE BLOOD COUNT 7315907 Eos Auto 7.7 % 9 Unknown COMPLETE BLOOD COUNT 7906722 Baso Auto 0.2 % 9 Unknown COMPLETE BLOOD COUNT 1357146 Neutrophil Abs 2.55 10e9/L Unknown COMPLETE BLOOD COUNT 9146605 Lymphocyte Abs 1.32 10e9/L Unknown COMPLETE BLOOD COUNT 0047761 Monocyte Abs 0.36 10e9/L 10/18 Unknown COMPLETE BLOOD COUNT 1082734 Eosinophil Abs 0.35 10e9/L Unknown COMPLETE BLOOD COUNT 5383198 RDW-SD 42.2 fL 9 Unknown COMPLETE BLOOD COUNT 9849445 Basophil Abs 0.01 10e9/L 10/18 Unknown [facility] 24934 Cholesterol 205 mg/dL 11/09/2018 Unkno wn LIPID GROUP 98221 Triglyceride 268 mg/dL 11/09/2018 Unkn own [facility] 54086 HDL CHOLESTEROL 35 mg/dL 11/09/2018 U nknown L[facility] 27285 Chol/HDL Ratio 5.86 ratio 11/09/2018 U nknown L[facility] GROUP 97650 NON-HDL Chol 170 mg/dL 11/09/2018 Unkn own [facility] 38775 LDL Cholesterol 116 mg/dL 11/09/2018 U nknown PT 6786896 PT 12.7 Seconds 11/09/2018 Unknow n PT 1270427 INR 0.9 11/09/2018 Unknown GFR CALC 2872487 GFR Non Afr Amr >60 mL/min 11/09/2018 Un known GFR CALC 8087888 GFR Afr Amr >60 mL/min 11/09/2018 Unknow n ACT PARTIAL THRMBOPLASTIN TIME 90042 PTT 34.0 Seco nds 11/09/2018 Unknown LIPID GROUP 35701 Cholesterol 186 mg/dL 2018 Unkno wn L[facility] GROUP 60339 Triglyceride 229 mg/dL 2018 Unkn own L[facility] GROUP 56785 HDL CHOLESTEROL 36 mg/dL 2018 U nknown L[facility] GROUP 76086 Chol/HDL Ratio 5.17 ratio 2018 U nknown L[facility] GROUP 75050 NON-HDL Chol 150 mg/dL 2018 Unkn own L[facility] GROUP 25399 LDL Cholesterol 104 mg/dL 2018 U nknown GFR CALC 1928516 GFR Non Afr Amr >60 mL/min 2018 Un known GFR CALC 2856979 GFR Afr Amr >60 mL/min 2018 Unknow n COMPREHENSIVE METABOLIC 81249 AST 23 U/L 2018 Unknown COMPREHENSIVE METABOLIC 34751 ALT 22 U/L 2018 Unknown COMPREHENSIVE METABOLIC 78750 BUN 15 mg/dL 2018 Unknown COMPREHENSIVE METABOLIC 14920 ALBUMIN 4.1 g/dL 2018 Unknown COMPREHENSIVE METABOLIC 85632 CHLORIDE 106 mmol/L 05/06 Unknown COMPREHENSIVE METABOLIC 27749 Bili Total 0.6 mg/dL 05/06 Unknown COMPREHENSIVE METABOLIC 14904 ALK PHOS 61 U/L 2018 Unknown COMPREHENSIVE METABOLIC 73431 SODIUM 141 mmol/L 05/06 Unknown COMPREHENSIVE METABOLIC 95046 CREATININE 0.91 mg/dL 04/17 Unknown COMPREHENSIVE METABOLIC 91724 CALCIUM 9.2 mg/dL 2018 Unknown COMPREHENSIVE METABOLIC 31988 POTASSIUM 3.8 mmol/L 05/06 Unknown COMPREHENSIVE METABOLIC 67309 Total Protein 7.0 g/dL Unknown COMPREHENSIVE METABOLIC 08803 Glucose 97 mg/dL 2018 Unknown COMPREHENSIVE METABOLIC 24374 Bicarbonate 28 mmol/L 04/17 Unknown COMPREHENSIVE METABOLIC 28804 AGAP 7 mmol/L 2018 Unknown THYROID STIMULATING HORMONE 29937 TSH 2.094 uIU/mL 2018 Unknown COMPLETE BLOOD COUNT 8479481 WBC 5.5 10e9/L 05/07/19 19 Unknown COMPLETE BLOOD COUNT 8664721 RBC 4.61 10e12/L 2018 Unknown COMPLETE BLOOD COUNT 9830631 HEMOGLOBIN 13.6 g/dL 05/07/19 19 Unknown COMPLETE BLOOD COUNT 3819869 HEMATOCRIT 40.0 % 05/07/19 19 Unknown COMPLETE BLOOD COUNT 0276789 MCV 86.8 fL 9 Unknown COMPLETE BLOOD COUNT 9557179 MCH 29.5 pg 9 Unknown COMPLETE BLOOD COUNT 3913895 MCHC 34.0 g/dL 9 Unknown COMPLETE BLOOD COUNT 0444497 PLATELET COUNT 197 10e9/L Unknown COMPLETE BLOOD COUNT 5833302 Mean Plt Volume 10.8 fL Unknown COMPLETE BLOOD COUNT 1719344 Neut Auto 49.6 % 9 Unknown COMPLETE BLOOD COUNT 3853998 Lymph Auto 36.8 % 05/07/19 19 Unknown COMPLETE BLOOD COUNT 7684905 Greer Auto 8.1 % 9 Unknown COMPLETE BLOOD COUNT 5718828 RDW 15.3 % 9 Unknown COMPLETE BLOOD COUNT 3522251 Eos Auto 5.3 % 9 Unknown COMPLETE BLOOD COUNT 9700529 Baso Auto 0.2 % 9 Unknown COMPLETE BLOOD COUNT 4034962 Neutrophil Abs 2.73 10e9/L Unknown COMPLETE BLOOD COUNT 9121112 Lymphocyte Abs 2.02 10e9/L Unknown COMPLETE BLOOD COUNT 5799415 Monocyte Abs 0.45 10e9/L 04/17 Unknown COMPLETE BLOOD COUNT 5077764 Eosinophil Abs 0.29 10e9/L Unknown COMPLETE BLOOD COUNT 1566829 RDW-SD 47.9 fL 9 Unknown COMPLETE BLOOD COUNT [id number] Basophil Abs 0.01 10e9/L 04/17 Unknown Procedures Procedure Codes Date CEFTRIAXONE SODIUM INJECTION CPT-4: J0696 11/09/2018 THER/PROPH/DIAG INJ SC/IM CPT-4: 43515 11/09/2018 ROUTINE VENIPUNCTURE CPT-4: 50454 11/09/2018 COMPREHEN METABOLIC PANEL CPT-4: 09536 11/09/2018 COMPLETE CBC W/AUTO DIFF WBC CPT-4: 57832 11/09/2018 LIPID PANEL CPT-4: 54391 11/09/2018 PROTHROMBIN TIME CPT-4: 17588 11/09/2018 THROMBOPLASTIN TIME PARTIAL CPT-4: 41629 11/09/2018 THER/PROPH/DIAG INJ SC/IM CPT-4: 92290 09/23/2018 KETOROLAC TROMETHAMINE INJ CPT-4: J1885 09/23/2018 ROUTINE VENIPUNCTURE CPT-4: 59255 2018 ASSAY THYROID STIM HORMONE CPT-4: 21279 2018 COMPREHEN METABOLIC PANEL CPT-4: 11981 2018 COMPLETE CBC W/AUTO DIFF WBC CPT-4: 04123 2018 LIPID PANEL CPT-4: 43282 2018 CEFTRIAXONE SODIUM INJECTION CPT-4: J0696 04/14/2018 THER/PROPH/DIAG INJ SC/IM CPT-4: 81441 04/14/2018 CEFTRIAXONE SODIUM INJECTION CPT-4: J0696 03/18/2018 THER/PROPH/DIAG INJ SC/IM CPT-4: 77967 03/18/2018 THER/PROPH/DIAG INJ SC/IM CPT-4: 87961 01/26/2018 KETOROLAC TROMETHAMINE INJ CPT-4: J1885 01/26/2018 CEFTRIAXONE SODIUM INJECTION CPT-4: J0696 12/22/2017 THER/PROPH/DIAG INJ SC/IM CPT-4: 52541 12/22/2017 ROUTINE VENIPUNCTURE CPT-4: 95059 11/14/2016 COMPLETE CBC W/AUTO DIFF WBC CPT-4: 06771 11/14/2016 PT/PTT CPT-4: 7564380 11/14/2016 Vital Signs Date Vital 07/05/2019 Blood [...] 1: 134/82 Code: 8480-6 BMI: 23.9 Code: 26200-2 Heart Rate 1: 100 bpm Height: 6'4" [...] 1: 138/70 Code: 8480-6 BMI: 22.6 Code: 06534-1 Heart Rate 1: 97 bpm Height: 6'4" [...] 1: 142/80 Code: 8480-6 BMI: 20.9 Code: 83918-9 Heart Rate 1: 108 bpm Height: 6'4" Respiratory Rate: 20 bpm SpO2: 97% Tempera ture: 36.6 (C) / 97.9 (F) Weight: 172 lbs 01/26/2018 Blood Pressure 1: 130/82 Code: 8480-6 Heart Rate 1: 98 bpm Respiratory Rate: 18 bpm SpO2: 99% Temperature: 35.7 (C) / 96.3 (F) We ight: 175 lbs 12/22/2017 Blood Pressure 1: 124/68 Code: 8480-6 BMI: 22.3 Code: 57901-0 Heart Rate 1: 100 bpm Height: 6'4" Respiratory Rate: 20 bpm SpO2: 98% Tempera ture: 36.7 (C) / 98.0 (F) Weight: 183 lbs 10/06/2017 Blood Pressure 1: 130/86 Code: 8480-6 BMI: 21.1 Code: 59518-4 Heart Rate 1: 92 bpm Height: 6'4" Respiratory Rate: 18 bpm SpO2: 98% Tempera ture: 36.9 (C) / 98.5 (F) Weight: 173 lbs 02/03/2017 Blood Pressure 1: 144/92 Code: 8480-6 BMI: 20.8 Code: 88917-9 Heart Rate 1: 88 bpm Height: 6'4" Respiratory Rate: 20 bpm SpO2: 97% Tempera ture: 36.7 (C) / 98.1 (F) Weight: 171 lbs 11/25/2016 Blood Pressure 1: 126/84 Code: 8480-6 Heart Rate 1: 76 bpm Respiratory Rate: 20 bpm SpO2: 96% Temperature: 36.9 (C) / 98.4 (F) We ight: 170 lbs 11/14/2016 Blood Pressure 1: 126/82 Code: 8480-6 BMI: 20.7 Code: 70901-6 Heart Rate 1: 86 bpm Height: 6'4" Respiratory Rate: 18 bpm SpO2: 96% Tempera ture: 35.8 (C) / 96.5 (F) Weight: 170 lbs 04/02/2016 Blood Pressure 1: 124/78 Code: 8480-6 Heart Rate 1: 88 bpm Respiratory Rate: 24 bpm SpO2: 97% Temperature: 36.1 (C) / 97.0 (F) We ight: 161 lbs 11/29/2015 Blood Pressure 1: 124/68 Code: 8480-6 BMI: 19.2 Code: 92542-9 Heart Rate 1: 94 bpm Height: 6'4" Respiratory Rate: 18 bpm SpO2: 97% Tempera ture: 36.1 (C) / 97.0 (F) Weight: 158 lbs 06/27/2015 Blood Pressure 1: 128/78 Code: 8480-6 BMI: 18.7 Code: 74551-4 Heart Rate 1: 72 bpm Height: 6'4" Respiratory Rate: 22 bpm SpO2: 98% Tempera ture: 35.9 (C) / 96.6 (F) Weight: 154 lbs 05/24/2015 Blood Pressure 1: 112/78 Code: 8480-6 BMI: 19.7 Code: 58951-2 Heart Rate 1: 78 bpm Height: 6'4" [...] care Encounters Encounter Performer Location Codes Date ([id number]) OFFICE/OUTPATIENT VISIT EST Diagnosis: Other specified local infections of the skin and subcutaneous tissue[ICD10: L08.89] Diagnosis: DM w/o complication type II, uncontrolled[ICD10: E11.65] Diagnosis: Right leg DVT[ICD10: I82.401] Janneth SHRESTHA DO [facility] CPT-4: 69445 07/05/2019 ([id number]) OFFICE/OUTPATIENT VISIT EST Diagnosis: 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, implant, or graft[ICD10: T85.818A] Diagnosis: DM w/o complication type II, uncontrolled[ICD10: E11.65] Janneth SHRESTHA DO [facility] CPT-4: 84579 05/17/2019 ([id number]) OFFICE/OUTPATIENT VISIT EST Diagnosis: Acute dermatitis[ICD10: L30.9] Diagnosis: DM w/o complication type II, uncontrolled[ICD10: E11.65] Diagnosis: Right leg DVT[ICD10: I82.401] Janneth SHRESTHA DO [facility] CPT-4: 13359 05/02/2019 ([id number]) OFFICE/OUTPATIENT VISIT EST Diagnosis: DM w/o complication type II, uncontrolled[ICD10: E11.65] Diagnosis: Allergic dermatitis[ICD10: L23.9] Diagnosis: Right leg DVT[ICD10: I82.401] Diagnosis: Paroxysmal atrial fibrillation[ICD10: I48.0] Diagnosis: Right calf pain[ICD10: M79.661] Janneth SHRESTHA [facility] CPT-4: 89616 04/25/2019 ([id number]) OFFICE/OUTPATIENT VISIT EST Diagnosis: DM w/o complication type II, uncontrolled[ICD10: E11.65] Diagnosis: 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, implant, or graft[ICD10: T85.818A] Diagnosis: Essential hypertension[ICD10: I10] Janneth SHRESTHA Hoods [facility] CPT-4: 60668 04/11/2019 ([id number]) OFFICE/OUTPATIENT VISIT EST Diagnosis: Sinus tachycardia[ICD10: R00.0] Diagnosis: Folliculitis[ICD10: L73.9] Janneth HARDY [facility] CPT-4: 39741 03/01/2019 ([id number]) OFFICE/OUTPATIENT VISIT EST Diagnosis: Cellulitis of left lower limb[ICD10: L03.116] Diagnosis: Tendinitis of left peroneus longus tendon[ICD10: M76.72] Janneth SHRESTHA [facility] CPT-4: 01367 11/18/2018 ([id number]) OFFICE/OUTPATIENT VISIT EST Diagnosis: Cellulitis of left foot[ICD10: L03.116] Diagnosis: Spontaneous ecchymoses[ICD10: R23.3] Diagnosis: Venous insufficiency (chronic) (peripheral)[ICD10: I87.2] Diagnosis: Mixed hyperlipidemia[ICD10: E78.2] Vania RAY Saut MediaLisandra CLARK Hoods [facility] CPT-4: 85802 11/09/2018 ([id number]) OFFICE/OUTPATIENT VISIT EST Diagnosis: Venous insufficiency (chronic) (peripheral)[ICD10: I87.2] Diagnosis: Cellulitis of left lower limb[ICD10: L03.116] Diagnosis: Pain in right foot[ICD10: M79.671] Vania RAY [employer] AMBER Hoods [facility] CPT-4: 73987 10/13/2018 ([id number]) OFFICE/OUTPATIENT VISIT EST Diagnosis: Low back pain[ICD10: M54.5] Vania Taylor [facility] Hoods [facility] CPT-4: 02650 09/23/2018 ([id number]) OFFICE/OUTPATIENT VISIT EST Diagnosis: Gastro-esophageal reflux disease without esophagitis[ICD10: K21.9] Diagnosis: Dysphagia, pharyngoesophageal phase[ICD10: R13.14] Janneth Sriramchrista NORWOODJANNETH Liza ROGERSZapMe Hoods [facility] CPT-4: 42569 09/06/2018 ([id number]) OFFICE/OUTPATIENT VISIT EST Diagnosis: Tinea corporis[ICD10: B35.4] Vania CLARK Hoods [facility] CPT-4: 17447 07/15/2018 ([id number]) OFFICE/OUTPATIENT VISIT EST Diagnosis: Cellulitis of left toe[ICD10: L03.032] Diagnosis: Mixed hyperlipidemia[ICD10: E78.2] Mandy RAY [employer] AMBER Hoods [facility] CPT-4: 44396 2018 OFFICE/OUTPATIENT VISIT EST Diagnosis: Cellulitis of left toe[ICD10: L03.032] Diagnosis: Unspecified disturbances of skin sensation[ICD10: R20.9] Mandy WARD MeetLisandra AMBER Hoods [facility] CPT-4: 34793 04/14/2018 ([id number]) OFFICE/OUTPATIENT VISIT EST Diagnosis: Cellulitis of left toe[ICD10: L03.032] Diagnosis: Insomnia, unspecified[ICD10: G47.00] Vania SHRESTHA [employer] CPT-4: 90026 03/18/2018 ([id number]) OFFICE/OUTPATIENT VISIT EST Diagnosis: Other postprocedural complications and disorders of the circulatory system, not elsewhere classified[ICD10: I97.89] Diagnosis: Rash and other nonspecific skin eruption[ICD10: R21] Diagnosis: Pain in right leg[ICD10: M79.604] Vania SHRESTHA DO [employer] CPT-4: 10538 01/26/2018 ([id number]) OFFICE/OUTPATIENT VISIT EST Diagnosis: Other postprocedural complications and disorders of the circulatory system, not elsewhere classified[ICD10: I97.89] Diagnosis: Cellulitis of right lower limb[ICD10: L03.115] Vnaia SHRESTHA [facility] CPT-4: 16866 12/22/2017 ([id number]) OFFICE/OUTPATIENT VISIT EST Diagnosis: Acute sinusitis, unspecified[ICD10: J01.90] Diagnosis: Unspecified disturbances of skin sensation[ICD10: R20.9] Vania SHRESTHA [facility] CPT-4: 72019 10/06/2017 ([id number]) OFFICE/OUTPATIENT VISIT EST Diagnosis: Primary insomnia[ICD10: F51.01] Diagnosis: Pain in left shoulder[ICD10: M25.512] Diagnosis: Poisoning by other parasympatholytics [anticholinergics and antimuscarinics] and spasmolytics, accidental (unintentional), sequela[ICD10: T44.3X1S] Janneth SHRESTHA [facility] CPT-4: 88697 02/03/2017 OFFICE/OUTPATIENT VISIT EST Diagnosis: Insomnia, unspecified[ICD10: G47.00] Diagnosis: Constipation, unspecified[ICD10: K59.00] Diagnosis: Spontaneous ecchymoses[ICD10: R23.3] Diagnosis: Pain in left foot[ICD10: M79.672] [facility] CPT-4: 85862 11/25/2016 OFFICE/OUTPATIENT VISIT EST Diagnosis: Insomnia, unspecified[ICD10: G47.00] Diagnosis: Constipation, unspecified[ICD10: K59.00] Diagnosis: Spontaneous ecchymoses[ICD10: R23.3] Diagnosis: Other specified local infections of the skin and subcutaneous tissue[ICD10: L08.89] [facility] 99 213 11/14/2016 ([id number]) OFFICE/OUTPATIENT VISIT EST Diagnosis: Acute upper respiratory infection, unspecified[ICD10: J06.9] [facility] CPT-[facility]: 67779 04/02/2016 ([id number]) OFFICE/OUTPATIENT VISIT EST Diagnosis: Acute upper respiratory infection, unspecified[ICD10: J06.9] [facility] CPT-[facility]: 69403 11/29/2015 ([id number]) OFFICE/OUTPATIENT VISIT EST Diagnosis: Pain in thoracic spine[ICD10: M54.6] Diagnosis: Paresthesia of skin[ICD10: R20.2] Diagnosis: Dysphagia, unspecified[ICD10: R13.10] Ester Grande [facility] CPT-4: 64904 06/27/2015 ([id number]) OFFICE/OUTPATIENT VISIT NEW Diagnosis: Pain in left leg[ICD10: M79.605] Diagnosis: Male erectile dysfunction, unspecified[ICD10: N52.9] Diagnosis: Dysphagia, unspecified[ICD10: R13.10] Ester Grande [facility] CPT-4: 40606 05/24/2015 Plan of Care Planned Activity Notes [...] E11.65 07/05/2019 Patient Education: cephalexin- [employer] Coupon [id number] https://www.[facility]/resources/getResource/61/a0814c47-0944-5885-u3 Completed 07/05/2019 Visit Diagnosis Plan: DM w/o [...] : T85.818A 05/17/2019 Appointment: Janneth Shrestha WPtel: [address] [place], [place] [phone] FOLLOW UP 05/17/2019 Patient Education: Metformin Patient [...] E11.65 05/02/2019 Appointment: Janneth Shrestha WPtel: [phone] [facility] [place] FOLLOW UP 05/02/2019 Patient Education: metoprolol succinate- [employer]imize[employer] Co upon [id number] https://www.[facility]/resources/getResource/61/70460lh6-d7n5-670v-a4 Completed 05/02/2019 Visit Diagnosis Plan: Paroxysmal atrial [...] 250.02 ICD-10 : E11.65 04/25/2019 Appointment: [facility]rest[facility]el[phone] [facility] [facility] 04/25/2019 Patient Education: Metformin Patient Savings Message Alert Completed 04/25/2019 Patient Education: prednisone- [employer] Coupon [phone] https://www.[facility]/resources/getResource/61/2zd77gf6-s1to-6q82-cw Completed 04/25/2019 Visit Diagnosis Plan: DM w/o [...] : T85.818A 04/11/2019 Appointment: Janneth Shrestha WPtel: [address] [place] [address] ACUTE ILLNESS 04/11/2019 Patient Education: metoprolol succinate- [employer] Co upon [id number] https://www.[facility]/resources/getResource/61/eq019563-12it-5o12-67 Completed 04/11/2019 Patient Education: Metformin Patient Savings Message Alert Completed 04/11/2019 Patient Education: cephalexin- [employer] Coupon [phone] https://www.[facility]/resources/Puppet LabsResource/61/1mmt5737-5w3r-2286-tz Completed 04/11/2019 Visit Diagnosis Plan: Folliculitis Discussion: Bactrim and topical bactroban ICD-9 : 704.8 ICD-10 : L73.9 03/01/2019 Visit Diagnosis Plan: Sinus tachycardia Discussion: St art low dose metoprolol ER 25mg daily Monitor pulse Sees Cardiology next month ICD-9 : 427.89 ICD-10 : R00.0 03/01/2019 Appointment: Janneth Shrestha WPtel: [address] [place] [address] FOLLOW UP 03/01/2019 Patient Education: mupirocin- [employer] Coupon [id number] https://www.[facility]/resources/getResource/61/on555uo7-95ck-635e-cc Completed 03/01/2019 Appointment: Janneth Shrestha WPtel: [address] [place], [place] [phone] [place] CANCELED 12/20/2018 Visit Diagnosis Plan: Cellulitis [...] : M76.72 11/18/2018 Appointment: [facility] [facility] 11/18/2018 Appointment: Janneth [facility]restha WPtel: [phone] [facility] [place] FOLLOW UP 11/18/2018 Patient Education: doxycycline monohydrate- [employer] Coupon [id number] https://www.[facility]/resources/getResource/61/ytc26136-y4z3-71k3-2h Completed 11/18/2018 Patient Education: prednisone- [employer] Coupon [id number] https://www.[facility]/resources/getResource/61/80ua4m8k-4jq0-9719-zl Completed 11/18/2018 Care Plan: Referral Order SNOMED-CT : 30 3041053 Pending 11/18/2018 Visit Diagnosis Plan: Venous insufficiency [...] evaluated in an ED whether it be [place] or wherever he's traveling. discussed the risk [...] ICD-10 : R23.3 11/09/2018 Appointment: Vania García [address] [place], [place] [phone] ACUTE ILLNESS 11/09/2018 Patient Education: clindamycin HCl- [employer] Coupon [id number] https://www.[facility]/resources/getResource/61/07ou77q3-fl22-1de6-9g Completed 11/09/2018 Appointment: Janneth Shrestha WPtel: [phone] [id number] CANCELED 10/19/2018 Visit Diagnosis Plan: Pain in [...] ICD-10 : L03.116 10/13/2018 Appointment: Vania García [address] [place], [place] [phone] Patient cant pay copay till when he [...] ICD-10 : M54.5 09/23/2018 Appointment: Vania García [address] [place], [place] [address] ACUTE ILLNESS 09/23/2018 Patient Education: Medrol (Brenden)- OptimizeRX Coupon [phone] https://www.[facility]/resources/getResource/61/mvrt409k-5460-15c6-10 Completed 09/23/2018 Visit Diagnosis Plan: Dysphagia, pharyngoesophageal ph ase Discussion: Referral for EGD ICD-9 : 787.24 ICD-10 : R13.14 09/06/2018 Visit Diagnosis Plan: Gastro-esophageal reflux disease without esophagitis Discussion: Start omeprazole ICD-9 : 530.81 ICD-10 : K21.9 09/06/2018 Appointment: Janneth Shrestha WPtel: [phone] [facility] [facility] ACUTE ILLNESS 09/06/2018 Patient Education: omeprazole- [employer] Coupon [id number] https://www.[facility]/resources/getResource/61/987ld867-51n6-394c-89 Completed 09/06/2018 Care Plan: Referral Order SNOMED-CT : 30 9867517 Pending 09/06/2018 Visit Diagnosis Plan: Tinea corporis Discussion: nysta tin to be used bid until rash gone and then an additional 2 days. diflucan every 3 days for 3 doses. keep area clean and dry with no moisturizers. call office if no improvement in 2 weeks or if worsening. ICD-9 : 110.5 ICD-10 : B35.4 07/15/2018 Appointment: Vania Garc[facility] [facility] 07/15/2018 Patient Education: nystatin- [employer] Coupon [id number] https://www.[facility]/resources/getResource/61/55sue223-o5pc-38wr-9k Completed 07/15/2018 Patient Education: Plavix- Optimize[employer] Coupon [id number] https://www.[facility]/resources/getResource/61/80cm5l19-p53o-34mj-00 fa-k730w3855670.pdf Completed 07/15/2018 Patient Education: cyclobenzaprine- [employer]imize[employer] Coupon [id number] https://www.[place].[facility]ix[facility]/resources/getResource/61/75022a3v-1i05-96f1-ag Completed 07/15/2018 Visit Diagnosis Plan: Cellulitis of [...] ICD-10 : L03.032 2018 Appointment: Mandy Hollins [facility] [place] [address] FOLLOW UP 2018 Patient Education: mupirocin- [employer] Coupon [id number] https://www.[place].[facility]/resources/getResource/61/e1xo32q6-0337-5730-7w Completed 2018 Visit Diagnosis Plan: Cellulitis of [...] ICD-10 : R20.9 04/14/2018 Appointment: Mandy Hollins [address] [place] [address] FOLLOW UP 04/14/2018 Visit Diagnosis Plan: Cellulitis [...] ICD-10 : G47.00 03/18/2018 Appointment: Vania García [address] [place], [place] [phone] ACUTE ILLNESS 03/18/2018 Patient Education: cyclobenzaprine- [employer]imizeRX Coupon [id number] https://www.[facility].com/[facility]/resources/getResource/61/4771x782-6lx7-918k-j7 Completed 03/18/2018 Visit Diagnosis Plan: Rash and other nonspecific skin eruption Discussion: triamcinolone ordered to be used as directed. ICD-9 : 782.1 ICD-10 : R21 01/26/2018 Visit Diagnosis Plan: Other postprocedur al complications and disorders of the circulatory system, not elsewhere classified Discussion: discussed with dr. shrestha and patient was instructed to contact the [place] [facility] dept. due to uncontrolled pain, continued erythema, patient needs to be re-evaluated by the surgeon. 60 mg toradol given to patient. patient verbalized understanding and voiced he will contact them today for an appointment. ICD-9 : 997.1 ICD-10 : I97.89 01/26/2018 Appointment: [facility] [facility] 01/26/2018 Appointment: Janneth Shrestha WPtel: [phone] [facility] NO SHOW 01/06/2018 Visit Diagnosis [...] ICD-10 : I97.89 12/22/2017 Appointment: Vania García [address] [place], [place] [phone] ACUTE ILLNESS 12/22/2017 Visit Diagnosis Plan: Unspecified [...] ICD-10 : J01.90 10/06/2017 Appointment: Vania García [address] [place], [place] [phone] ACUTE ILLNESS 10/06/2017 Patient Education: Patient Medication Summary Completed 10/06/2017 Appointment: Vania García [address] [place], [place] [phone] ER Follow UP 08/17/2017 Appointment: Vania García [address] [place], [place] [phone] [place] CANCELED 07/03/2017 Appointment: Janneth Shrestha WPtel: [phone] [facility] [place] canceled at 8:05 this morning. CANCELED [...] T44.3X1S 02/03/2017 Appointment: [facility]ann[facility]restha [facility]Ptel[phone] [id number] Follow Up 02/03/2017 Patient Education: Patient [...] Discussion: re isabella sent for dr garcia account services associate. ICD-9 : 729.5 ICD-10 : M79.672 11/25/2016 Visit Diagnosis Plan: Insomnia, unspecified Recommenda tions: resolved with lunesta. continue taking as prescribed. ICD-9 : 780.52 ICD-10 : G47.00 11/25/2016 Appointment: Vania García [address] [place], [place] [address] FOLLOW UP 11/25/2016 Patient Education: Patient Medication [...] ICD-10 : K59.00 11/14/2016 Appointment: Vania García [address] [place] [address] ACUTE ILLNESS 11/14/2016 Patient Education: Patient Medication Summary Completed 11/14/2016 Visit Diagnosis Plan: Acute upper respiratory infectio n, unspecified Discussion: Rxs as above Continue OTC and supportive meds Encouraged smoking cessation Follow up PRN ICD-9 : 465.9 ICD-10 : J06.9 04/02/2016 Appointment: Ester Grande [address] [place] [address] ACUTE ILLNESS 04/02/2016 Patient Education: Patient Medication Summary Completed 04/02/2016 Visit Plan: Rxs as above Supportive care reviewed Follow up PRN 11/29/2015 Appointment: Ester Grande [address] [place] [address] 11/27 confirmed~sl ACUTE ILLNESS 11/29/2015 Patient Education: [...] for pain 06/27/2015 Appointment: [facility] [facility] 06/25 lm ~sl 06/26 phone not on~sl FOLLOW UP 06/27/2015 Patient Education: Patient Medication Summary Completed 06/27/2015 Care Plan: X-RAY EXAM RIBS UNI 2 VIEWS L OINC : 56224-6 Pending 06/27/2015 Referral: Héctor Woodard [phone] [place] 05/29 Scheduled with sena ~sl Appointment Re quested 06/26/2015 Referral: Camreon Khanna WPtel: [phone] [facility] [place] Referral Initiated 06/11/2015 Referral: Marco Antonio Green WPtel: [phone] [id number] [place] 05/30/15 Needs to be there at pre op time per ~sl Initiated 06/04/2015 Visit Plan: Will get all necessary refer rals set up - CTS, Uro and G/S Swallow study and routine labs ordered Will further investigate left leg pain with EMG if not cardio related 05/24/2015 Appointment: [facility] NEW [facility]IENT 05/24/2015 Patient Education: Patient Medication Summary Completed 05/24/2015 Care Plan: Referral Order SNOMED-CT : 30 6506243 Pending 05/24/2015 Care Plan: Referral Order SNOMED-CT : 30 5087408 Pending 05/24/2015 Care Plan: Referral Order SNOMED-CT : 30 6796923 Pending 05/24/2015 Ref[facility]: Sudheer [facility]ann [phone] [facility] [place] Referral Appointment Requested Referral: Alfonzo Andujar WPtel: [address] [facility] [place] Referral Initiated Referral: [facility] [address] [id number] [place] Referral Completed Referral: Cameron Khanna WPtel: [phone] [facility] [place] Referral Appointment Requested Referral: RoseBrianna Katherine WPtel: [phone] [address] [place] Referral Initiated Referral: Yamilet Alannavenice WPtel: [address] [id number] [place] 05/24/15 [facility] office suggested he see another card. ~sl Initiated Referral: Alfonzo Andujar WPtel: [address] [place] [address] [place] Referral Appointment Requested Referral: Marco Antonio Green WPtel: [phone] [place] [address] [place] Referral Appointment Requested Instructions Comment . [...]
--- OUTSIDE RECORDS SUMMARY | 2019-08-06 10:23 | XMS REPORT | CCD ---
Author Author [place] Organization JANNETH SHRESTHA DO [facility] Address [address] [place] [address] Phone Unavailable Care Team Providers Care Manager Inside Name Role Phone Janneth Shrestha D.O., PP Unavailable CCM Unavailable Summary Purpose Interface Exchange Insurance Providers Payer name Policy type / Coverage type Covered republican ID Effective Begin Date Effective End Date Blue Cross Blue Shield Blue Cross/Blue Shield [id number] Unknown Family History Family History data not found Social History Social History Element Codes Description Effective Dates Marital status Unknown 05/24/2015 Number of children Unknown 2 05/24/2015 Employment Unknown Currently employed 05/24/[address]: 08527150 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 05/24/2015 Allergies, Adverse Reactions, Alerts Substance Reaction Codes Entered Date Inactivated Date Status * NO KNOWN FOOD ALLERGIES Unknown 05/24/2015 No Inactiv e Date Active * NO KNOWN ENVIRONMENTAL ALLERGIES Unknown 05/24/2015 N o Inactive Date Active _ Unknown 05/24/2015 No Inactive Date Active Problems Condition Codes Effective Dates Condition Status 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, implant, or graft ICD-9: 996 .70 ICD-10: T85.818A 04/11/2019 Active DM w/o complication type II, uncontrolled ICD-9: 250.0 2 ICD-10: E11.65 04/11/2019 Active Acute dermatitis ICD-9: 692.9 ICD-10: L30.9 05/02/2019 Active Right leg DVT ICD-9: 453.40 ICD-10: I82.401 04/25/2019 Active Allergic dermatitis ICD-9: 692.9 ICD-10: L23.9 [...] unspecified ICD-9: 564.00 ICD-10: K59.00 11/14/2016 Active Other specified local infections of the skin and subcu taneous tissue ICD-9: 686.8 ICD-10: L08.89 11/14/2016 Active Pain in left foot ICD-9: [...] 50 mg tablet,extended release 24 hr RxNorm: 223738 1 Tablet(s) Oral QD 08/01/2019 10/30/2019 Active metformin ER 1,000 mg tablet,extended release 24hr RxNorm: 1 383463 1 Tablet(s) Oral two times a day replaces 500mg dose 05/17/2019 11/13/2019 Active [AttnRPh: Saving apply/adjudicate RxGRP:[id number] RxBIN:[id number] RxPCN: ID#:[id number]] ReliOn Prime Test Strips RxNorm: 1 Unit [...] two times a day 05/02/2019 05/01/2019 Inactive Xarelto 20 mg tablet RxNorm: 9043402 1 Tablet(s) Oral QD 04/25/2019 No Stop Date Active Plavix 75 mg tablet RxNorm: 946692 TAKE ONE TABLET BY MOUTH DAILY 0 04/25/2019 04/26/2019 Inactive amiodarone 200 mg tablet RxNorm: 865141 1 Tablet(s) Oral QD 020 No Stop Date Active Plavix 75 mg tablet RxNorm: 352365 TAKE ONE TABLET BY MOUTH DAILY 0 04/25/2019 04/24/2019 Inactive metformin ER 500 mg 24 hr tablet,extended release RxNorm: 18 57864 1 Tablet(s) Oral two times a day 04/25/2019 05/16/2019 Inactive prednisone 20 mg tablet RxNorm: 257208 1 Tablet(s) Oral two jn es a day 04/25/2019 05/01/2019 Inactive aspirin 81 mg tablet,delayed release RxNorm: 079158 1 Tablet(s) Oral QD 04/11/2019 No Stop Date Active pantoprazole 40 mg tablet,delayed release RxNorm: 784502 1 Tabl et(s) Oral QAM 04/11/2019 No Stop Date Active Vitamin C 1,000 mg tablet RxNorm: 830020 1 Tablet(s) Oral QD 2019 No Stop Date Active Xarelto 15 mg tablet RxNorm: 3033794 1 Tablet(s) Oral QD 04/11/2019 0 04/24/2019 Inactive metformin ER 500 mg 24 hr tablet,extended release RxNorm: 18 92657 1 Tablet(s) Oral QD 04/11/2019 04/24/2019 Inactive cephalexin 500 mg capsule RxNorm: 580504 1 Capsule(s) Oral thre e times a day 04/11/2019 04/18/2019 Inactive metoprolol succinate ER 50 mg tablet,extended release 24 hr RxNorm: 225731 1 Tablet(s) Oral QD replaces 25mg dose 04/11/2019 05/01/2019 Inactive cyclobenzaprine 10 mg tablet RxNorm: 539035 TAKE ONE TA BLET BY MOUTH EVERY NIGHT AT BEDTIME NEEDED 03/11/2019 No Stop Date Active mupirocin 2 % topical ointment RxNorm: 235071 Applicati on Topical two times a day 03/01/2019 04/10/2019 Inactive metoprolol succinate ER 25 mg tablet,extended release 24 hr RxNorm: 401208 1 Tablet(s) Oral QD 03/01/2019 04/24/2019 Inactive Bactrim DS 800 mg-160 mg tablet RxNorm: 991364 1 Tablet(s) Oral two times a day 03/01/2019 03/11/2019 Inactive cyclobenzaprine 10 mg tablet RxNorm: 486243 TAKE ONE TA BLET BY MOUTH EVERY NIGHT AT BEDTIME NEEDED 01/10/2019 03/10/2019 Inactive Plavix 75 mg tablet RxNorm: 451423 TAKE ONE TABLET BY MOUTH DAILY 1 03/12/2018 04/24/2019 Inactive omeprazole 40 mg capsule,delayed release RxNorm: 430104 TAKE ONE CAPSULE BY MOUTH EVERY NIGHT AT BEDTIME FOR REFLUX 01/10/2019 05/16/2019 Inactive tramadol 50 mg tablet RxNorm: 124342 1 Tablet(s) Oral f our times a day as needed 01/03/2019 01/03/2019 Inactive doxycycline monohydrate 100 mg capsule RxNorm: 7657127 1 Capsule(s) Oral two times a day 11/22/2018 12/13/2018 Inactive prednisone 20 mg tablet RxNorm: 524898 1 Tablet(s) Oral two jn es a day 11/22/2018 11/29/2018 Inactive Levaquin 750 mg tablet RxNorm: 893232 Tablet(s) Oral 11/18/201802/28 Inactive prednisone 20 mg tablet RxNorm: 822118 1 Tablet(s) Oral two jn es a day 11/18/2018 11/21/2018 Inactive tramadol 50 mg tablet RxNorm: 632100 Tablet(s) Oral 11/18/20182018 Inactive doxycycline monohydrate 100 mg capsule RxNorm: 8143523 1 Capsule(s) Oral two times a day 11/18/2018 11/21/2018 Inactive Plavix 75 mg tablet RxNorm: 612521 TAKE ONE TABLET BY MOUTH DAILY 0 11/10/2018 01/08/2019 Inactive clindamycin HCl 300 mg capsule RxNorm: 533515 1 Capsule (s) Oral three times a day 11/09/2018 11/19/2018 Inactive Keflex 500 mg capsule RxNorm: 721339 1 Capsule(s) PO BID 10/13/2018 0 10/22/2018 Inactive Medrol (Brenden) 4 mg tablets in a dose pack RxNorm: 498248 Tablet(s) take as directed PO 09/23/2018 10/12/2018 Inactive omeprazole 40 mg capsule,delayed release RxNorm: 592244 1 Capsule(s) PO QHS for reflux 09/06/2018 11/04/2018 Inactive cyclobenzaprine 10 mg tablet RxNorm: 382599 1 Tablet(s) PO QHS as needed 07/15/2018 10/12/2018 Inactive Diflucan 150 mg tablet RxNorm: 437421 1 Tablet(s) PO Q72H 07/15/2018 09/05/2018 Inactive nystatin 100,000 unit/gram topical cream RxNorm: 376304 1 Gram( s) TOP BID 07/15/2018 09/05/2018 Inactive Plavix 75 mg tablet RxNorm: 417349 1 Tablet(s) PO QD 07/15/201810/12 Inactive cyclobenzaprine 10 mg tablet RxNorm: 813626 1 Tablet(s) PO QHS as needed 06/10/2018 06/09/2018 Inactive cyclobenzaprine 10 mg tablet RxNorm: 801611 TAKE ONE TA BLET BY MOUTH EVERY NIGHT AT BEDTIME NEEDED 05/10/2018 06/10/2018 Inactive mupirocin 2 % topical ointment RxNorm: 956259 1 Application TOP BID 2018 05/25/2018 Inactive 22 gram cyclobenzaprine 10 mg tablet RxNorm: 170192 1 Tablet(s) PO QHS as needed 04/14/2018 06/09/2018 Inactive doxycycline hyclate 100 mg tablet RxNorm: 5421158 1 Tablet(s) PO BI D 04/14/2018 04/23/2018 Inactive cyclobenzaprine 10 mg tablet RxNorm: 048935 1 Tablet(s) PO QHS as needed 04/07/2018 04/13/2018 Inactive Bactrim DS 800 mg-160 mg tablet RxNorm: 332099 1 Tablet(s) PO BID 0 03/18/2018 03/27/2018 Inactive cyclobenzaprine 10 mg tablet RxNorm: 514118 1 Tablet(s) PO QHS as needed 03/18/2018 04/06/2018 Inactive triamcinolone acetonide 0.1 % topical cream RxNorm: 8849199 APPLY TO AFFECTED AREA(S) TWO TIMES A DAY 02/03/2018 02/12/2018 Inactive triamcinolone acetonide 0.1 % topical cream RxNorm: 0012530 1 Application TOP BID 01/26/2018 02/02/2018 Inactive Medrol (Brenden) 4 mg tablets in a dose pack RxNorm: 273705 TAKE BY MOUTH INSTRUCTED - PER PACKAGE INSTRUCTIONS 12/11/2017 12/16/2017 Inactive Medrol (Brenden) 4 mg tablets in a dose pack RxNorm: 393028 Tablet(s) P O 10/06/2017 12/10/2017 Inactive Lunesta 3 mg tablet RxNorm: 849509 1 Tablet(s) PO QHS 11/25/201608/2016 Inactive Lunesta 3 mg tablet RxNorm: 852309 1 Tablet(s) PO QHS 11/14/201610/2016 Inactive Bactrim DS 800 mg-160 mg tablet RxNorm: 280810 1 Tablet(s) PO BID 0 11/14/2016 11/23/2016 Inactive Epi E-Z Pen 0.3 mg/0.3 mL injection, auto-injector RxNorm: 1 338937 Milliliter(s) IM Use as Directed 06/25/2016 09/05/2018 Inactive amoxicillin 875 mg tablet RxNorm: 697348 1 Tablet(s) PO BID 017 04/11/2016 Inactive prednisone 20 mg tablet RxNorm: 963363 1 Tablet(s) PO BID 04/02/2016 04/06/2016 Inactive azithromycin 250 mg tablet RxNorm: 451496 2 Tablet(s) P O on day one then 1 tab on days 2-5 11/29/2015 11/28/2015 Inactive Medrol (Brenden) 4 mg tablets in a dose pack RxNorm: 889295 Take as directed 11/29/2015 11/13/2016 Inactive meloxicam 15 mg tablet RxNorm: 214891 1 Tablet(s) PO QD 07/02/2015 Inactive Chantix Starting Month Box 0.5 mg (11)-1 mg (42) table ts in dose pack RxNorm: 940703 Tablet(s) PO As Directed 06/20/2015 07/10/2015 Inactive omeprazole 40 mg capsule,delayed release RxNorm: 783566 1 Capsu le(s) PO QD 05/31/2015 11/13/2016 Inactive omeprazole 40 mg capsule,delayed release RxNorm: 694769 1 Capsu le(s) PO QD 05/31/2015 05/30/2015 Inactive Lactobacillus acidophilus-Bifidobacterium longum oral RxNorm: oral No Start Date Active Multivitamin And Mineral oral RxNorm: oral No Start Date Active Wellbutrin SR 150 mg tablet,sustained-release RxNorm: 973555 1 Tablet(s) PO BID No Start Date 11/13/2016 Inactive gabapentin 100 mg capsule RxNorm: 106573 1 Capsule(s) PO TID No Sta rt Date 03/17/2018 Inactive Chantix Starting Month Box 0.5 mg (11)-1 mg (42) table ts in dose pack RxNorm: 407667 Tablet(s) PO As Directed No Start Date 06/19/2015 Inactive Eliquis 5 mg tablet RxNorm: 2468663 1 Tablet(s) PO BID No Start Date 03/17/2018 Inactive aspirin 325 mg tablet RxNorm: 852460 1 Tablet(s) PO QD No Start Date 11/13/2016 Inactive clindamycin HCl 300 mg capsule RxNorm: 826648 2 Capsule(s) PO Q8H N o Start Date 03/17/2018 Inactive Fish Oil 1,000 mg (120 mg-180 mg) capsule RxNorm: 1 Caps ule(s) PO QD No Start Date 09/05/2018 Inactive aspirin 81 mg tablet RxNorm: 895210 1 Tablet(s) PO QD No Start Date 1 03/28/2017 Inactive Fish Oil 1,000 mg capsule RxNorm: 1 Capsule(s) PO QD No Start Date 11/13/2016 Inactive Baby Aspirin 81 mg chewable tablet RxNorm: 922557 1 Tablet(s) P O BID No Start Date 02/02/2017 Inactive Xarelto 10 mg tablet RxNorm: 7154568 1 Tablet(s) PO QD No Start Date 01/25/2018 Inactive tramadol 50 mg tablet RxNorm: 588234 1-2 Tablet(s) PO Q6H No Start Date 03/17/2018 Inactive meloxicam 15 mg tablet RxNorm: 036398 1 Tablet(s) PO QD No Start Da te 07/01/2015 Inactive Epi E-Z Pen 0.3 mg/0.3 mL injection, auto-injector RxNorm: 1 842126 Milliliter(s) IM Use as Directed No Start Date 06/24/2016 Inactive Plavix 75 mg tablet RxNorm: 693225 1 Tablet(s) PO QD No Start Date Inactive Medication Administered No Medication Administered data Immunizations No Immunization data Results Observation Observation Code Item Item Code Result Date S [facility] Location COMPREHENSIVE METABOLIC 98105 AST 25 U/L 2018 Unknown COMPREHENSIVE METABOLIC 28621 ALT 28 U/L 2018 Unknown COMPREHENSIVE METABOLIC 33517 BUN 13 mg/dL 2018 Unknown COMPREHENSIVE METABOLIC 67011 ALBUMIN 4.2 g/dL 2018 Unknown COMPREHENSIVE METABOLIC 67344 CHLORIDE 104 mmol/L 11/09 Unknown COMPREHENSIVE METABOLIC 44256 Bili Total 0.5 mg/dL 11/09 Unknown COMPREHENSIVE METABOLIC 18732 ALK PHOS 72 U/L 2018 Unknown COMPREHENSIVE METABOLIC 72714 SODIUM 139 mmol/L 11/09 Unknown COMPREHENSIVE METABOLIC 24589 CREATININE 0.98 mg/dL 10/18 Unknown COMPREHENSIVE METABOLIC 15479 CALCIUM 9.1 mg/dL 2018 Unknown COMPREHENSIVE METABOLIC 87960 POTASSIUM 3.7 mmol/L 11/09 Unknown COMPREHENSIVE METABOLIC 77024 Total Protein 7.2 g/dL Unknown COMPREHENSIVE METABOLIC 00973 Glucose 137 mg/dL 2018 Unknown COMPREHENSIVE METABOLIC 36100 Bicarbonate 24 mmol/L 10/18 Unknown COMPREHENSIVE METABOLIC 10208 AGAP 11 mmol/L 2018 Unknown COMPLETE BLOOD COUNT [id number] WBC 4.6 10e9/L 11/10/19 19 Unknown COMPLETE BLOOD COUNT [id number] RBC 4.88 10e12/L 2018 Unknown COMPLETE BLOOD COUNT 5650614 HEMOGLOBIN 14.7 g/dL 11/10/19 19 Unknown COMPLETE BLOOD COUNT [id number] HEMATOCRIT 43.7 % 11/10/19 19 Unknown COMPLETE BLOOD COUNT [id number] MCV 89.5 fL 9 Unknown COMPLETE BLOOD COUNT [id number] MCH 30.1 pg 9 Unknown COMPLETE BLOOD COUNT 9097474 MCHC 33.6 g/dL 9 Unknown COMPLETE BLOOD COUNT [id number] PLATELET COUNT 179 10e9/L Unknown COMPLETE BLOOD COUNT 8040049 Mean Plt Volume 11.6 fL Unknown COMPLETE BLOOD COUNT 2839828 Neut Auto 55.5 % 9 Unknown COMPLETE BLOOD COUNT [id number] Lymph Auto 28.7 % 11/10/19 19 Unknown COMPLETE BLOOD COUNT 5976272 [place] Auto 7.9 % 9 Unknown COMPLETE BLOOD COUNT 6900252 RDW 13.2 % 9 Unknown COMPLETE BLOOD COUNT 8541234 Eos Auto 7.7 % 9 Unknown COMPLETE BLOOD COUNT 8395525 Baso Auto 0.2 % 9 Unknown COMPLETE BLOOD COUNT 5803107 Neutrophil Abs 2.55 10e9/L Unknown COMPLETE BLOOD COUNT 6064139 Lymphocyte Abs 1.32 10e9/L Unknown COMPLETE BLOOD COUNT 8793957 Monocyte Abs 0.36 10e9/L 10/18 Unknown COMPLETE BLOOD COUNT [id number] Eosinophil Abs 0.35 10e9/L Unknown COMPLETE BLOOD COUNT 5937349 RDW-SD 42.2 fL 9 Unknown COMPLETE BLOOD COUNT 5507817 Basophil Abs 0.01 10e9/L 10/18 Unknown LIP[facility] GROUP 08780 Cholesterol 205 mg/dL 11/09/2018 Unkno wn LIPID GROUP 36367 Triglyceride 268 mg/dL 11/09/2018 Unkn own LIPID GROUP 55144 HDL CHOLESTEROL 35 mg/dL 11/09/2018 U nknown LIPID GROUP 94128 Chol/HDL Ratio 5.86 ratio 11/09/2018 U nknown LIPID GROUP 18039 NON-HDL Chol 170 mg/dL 11/09/2018 Unkn own LIPID GROUP 44269 LDL Cholesterol 116 mg/dL 11/09/2018 U nknown PT 2421541 PT 12.7 Seconds 11/09/2018 Unknow n PT 5693172 INR 0.9 11/09/2018 Unknown GFR CALC 7483880 GFR Non Afr Amr >60 mL/min 11/09/2018 Un known GFR CALC 8035878 GFR Afr Amr >60 mL/min 11/09/2018 Unknow n ACT PARTIAL THRMBOPLASTIN TIME 54409 PTT 34.0 [place] nds 11/09/2018 Unknown LIPID GROUP 90348 Cholesterol 186 mg/dL 2018 Unkno wn LIPID GROUP 19350 Triglyceride 229 mg/dL 2018 Unkn own LIPID GROUP 00065 HDL CHOLESTEROL 36 mg/dL 2018 U nknown LIPID GROUP 33491 Chol/HDL Ratio 5.17 ratio 2018 U nknown LIPID GROUP 19771 NON-HDL Chol 150 mg/dL 2018 Unkn own LIPID GROUP 20577 LDL Cholesterol 104 mg/dL 2018 U nknown GFR CALC 0174406 GFR Non Afr Amr >60 mL/min 2018 Un known GFR CALC 4581525 GFR Afr Amr >60 mL/min 2018 Unknow n COMPREHENSIVE METABOLIC 24398 AST 23 U/L 2018 Unknown COMPREHENSIVE METABOLIC 27135 ALT 22 U/L 2018 Unknown COMPREHENSIVE METABOLIC 47902 BUN 15 mg/dL 2018 Unknown COMPREHENSIVE METABOLIC 10992 ALBUMIN 4.1 g/dL 2018 Unknown COMPREHENSIVE METABOLIC 82444 CHLORIDE 106 mmol/L 05/06 Unknown COMPREHENSIVE METABOLIC 17730 Bili Total 0.6 mg/dL 05/06 Unknown COMPREHENSIVE METABOLIC 83247 ALK PHOS 61 U/L 2018 Unknown COMPREHENSIVE METABOLIC 95776 SODIUM 141 mmol/L 05/06 Unknown COMPREHENSIVE METABOLIC 64611 CREATININE 0.91 mg/dL 04/17 Unknown COMPREHENSIVE METABOLIC 61062 CALCIUM 9.2 mg/dL 2018 Unknown COMPREHENSIVE METABOLIC 83116 POTASSIUM 3.8 mmol/L 05/06 Unknown COMPREHENSIVE METABOLIC 92277 Total Protein 7.0 g/dL Unknown COMPREHENSIVE METABOLIC 48381 Glucose 97 mg/dL 2018 Unknown COMPREHENSIVE METABOLIC 34986 Bicarbonate 28 mmol/L 04/17 Unknown COMPREHENSIVE METABOLIC 04204 AGAP 7 mmol/L 2018 Unknown THYROID STIMULATING HORMONE 55366 TSH 2.094 uIU/mL 2018 Unknown COMPLETE BLOOD COUNT 1862470 WBC 5.5 10e9/L 05/07/19 19 Unknown COMPLETE BLOOD COUNT 7334058 RBC 4.61 10e12/L 2018 Unknown COMPLETE BLOOD COUNT 7860046 HEMOGLOBIN 13.6 g/dL 05/07/19 19 Unknown COMPLETE BLOOD COUNT 9452647 HEMATOCRIT 40.0 % 05/07/19 19 Unknown COMPLETE BLOOD COUNT 9972412 MCV 86.8 fL 9 Unknown COMPLETE BLOOD COUNT 4078974 MCH 29.5 pg 9 Unknown COMPLETE BLOOD COUNT 3450355 MCHC 34.0 g/dL 9 Unknown COMPLETE BLOOD COUNT 1772184 PLATELET COUNT 197 10e9/L Unknown COMPLETE BLOOD COUNT 5914857 Mean Plt Volume 10.8 fL Unknown COMPLETE BLOOD COUNT 3673608 Neut Auto 49.6 % 9 Unknown COMPLETE BLOOD COUNT 4972168 Lymph Auto 36.8 % 05/07/19 19 Unknown COMPLETE BLOOD COUNT 9640035 [place] Auto 8.1 % 9 Unknown COMPLETE BLOOD COUNT 9525700 RDW 15.3 % 9 Unknown COMPLETE BLOOD COUNT 0861704 Eos Auto 5.3 % 9 Unknown COMPLETE BLOOD COUNT 6146780 Baso Auto 0.2 % 9 Unknown COMPLETE BLOOD COUNT 6233329 Neutrophil Abs 2.73 10e9/L Unknown COMPLETE BLOOD COUNT 9826721 Lymphocyte Abs 2.02 10e9/L Unknown COMPLETE BLOOD COUNT 8504464 Monocyte Abs 0.45 10e9/L 04/17 Unknown COMPLETE BLOOD COUNT 0213988 Eosinophil Abs 0.29 10e9/L Unknown COMPLETE BLOOD COUNT 7541909 RDW-SD 47.9 fL 9 Unknown COMPLETE BLOOD COUNT [id number] Basophil Abs 0.01 10e9/L 04/17 Unknown Procedures Procedure Codes Date CEFTRIAXONE SODIUM INJECTION CPT-4: J0696 11/09/2018 THER/PROPH/DIAG INJ SC/IM CPT-4: 81339 11/09/2018 ROUTINE VENIPUNCTURE CPT-4: 21383 11/09/2018 COMPREHEN METABOLIC PANEL CPT-4: 11866 11/09/2018 COMPLETE CBC W/AUTO DIFF WBC CPT-4: 41312 11/09/2018 LIPID PANEL CPT-4: 32717 11/09/2018 PROTHROMBIN TIME CPT-4: 71139 11/09/2018 THROMBOPLASTIN TIME PARTIAL CPT-4: 58213 11/09/2018 THER/PROPH/DIAG INJ SC/IM CPT-4: 52782 09/23/2018 KETOROLAC TROMETHAMINE INJ CPT-4: J1885 09/23/2018 ROUTINE VENIPUNCTURE CPT-4: 07296 2018 ASSAY THYROID STIM HORMONE CPT-4: 63412 2018 COMPREHEN METABOLIC PANEL CPT-4: 43328 2018 COMPLETE CBC W/AUTO DIFF WBC CPT-4: 50646 2018 LIPID PANEL CPT-4: 02564 2018 CEFTRIAXONE SODIUM INJECTION CPT-4: J0696 04/14/2018 THER/PROPH/DIAG INJ SC/IM CPT-4: 13959 04/14/2018 CEFTRIAXONE SODIUM INJECTION CPT-4: J0696 03/18/2018 THER/PROPH/DIAG INJ SC/IM CPT-4: 30854 03/18/2018 THER/PROPH/DIAG INJ SC/IM CPT-4: 04640 01/26/2018 KETOROLAC TROMETHAMINE INJ CPT-4: J1885 01/26/2018 CEFTRIAXONE SODIUM INJECTION CPT-4: J0696 12/22/2017 THER/PROPH/DIAG INJ SC/IM CPT-4: 44840 12/22/2017 ROUTINE VENIPUNCTURE CPT-4: 01946 11/14/2016 COMPLETE CBC W/AUTO DIFF WBC CPT-4: 77079 11/14/2016 PT/PTT CPT-4: 1105113 11/14/2016 Vital Signs Date Vital 05/17/2019 Blood Pressure 1: 112/78 Code: 8480-6 [...] 1: 134/82 Code: 8480-6 BMI: 23.9 Code: 88892-3 Heart Rate 1: 100 bpm Height: 6'4" [...] 1: 138/70 Code: 8480-6 BMI: 22.6 Code: 30202-9 Heart Rate 1: 97 bpm Height: 6'4" [...] 1: 142/80 Code: 8480-6 BMI: 20.9 Code: 56787-8 Heart Rate 1: 108 bpm Height: 6'4" Respiratory Rate: 20 bpm SpO2: 97% Tempera ture: 36.6 (C) / 97.9 (F) Weight: 172 lbs 01/26/2018 Blood Pressure 1: 130/82 Code: 8480-6 Heart Rate 1: 98 bpm Respiratory Rate: 18 bpm SpO2: 99% Temperature: 35.7 (C) / 96.3 (F) We ight: 175 lbs 12/22/2017 Blood Pressure 1: 124/68 Code: 8480-6 BMI: 22.3 Code: 07143-7 Heart Rate 1: 100 bpm Height: 6'4" Respiratory Rate: 20 bpm SpO2: 98% Tempera ture: 36.7 (C) / 98.0 (F) Weight: 183 lbs 10/06/2017 Blood Pressure 1: 130/86 Code: 8480-6 BMI: 21.1 Code: 15852-5 Heart Rate 1: 92 bpm Height: 6'4" Respiratory Rate: 18 bpm SpO2: 98% Tempera ture: 36.9 (C) / 98.5 (F) Weight: 173 lbs 02/03/2017 Blood Pressure 1: 144/92 Code: 8480-6 BMI: 20.8 Code: 41565-7 Heart Rate 1: 88 bpm Height: 6'4" Respiratory Rate: 20 bpm SpO2: 97% Tempera ture: 36.7 (C) / 98.1 (F) Weight: 171 lbs 11/25/2016 Blood Pressure 1: 126/84 Code: 8480-6 Heart Rate 1: 76 bpm Respiratory Rate: 20 bpm SpO2: 96% Temperature: 36.9 (C) / 98.4 (F) We ight: 170 lbs 11/14/2016 Blood Pressure 1: 126/82 Code: 8480-6 BMI: 20.7 Code: 59927-2 Heart Rate 1: 86 bpm Height: 6'4" Respiratory Rate: 18 bpm SpO2: 96% Tempera ture: 35.8 (C) / 96.5 (F) Weight: 170 lbs 04/02/2016 Blood Pressure 1: 124/78 Code: 8480-6 Heart Rate 1: 88 bpm Respiratory Rate: 24 bpm SpO2: 97% Temperature: 36.1 (C) / 97.0 (F) We ight: 161 lbs 11/29/2015 Blood Pressure 1: 124/68 Code: 8480-6 BMI: 19.2 Code: 50883-7 Heart Rate 1: 94 bpm Height: 6'4" Respiratory Rate: 18 bpm SpO2: 97% Tempera ture: 36.1 (C) / 97.0 (F) Weight: 158 lbs 06/27/2015 Blood Pressure 1: 128/78 Code: 8480-6 BMI: 18.7 Code: 34067-7 Heart Rate 1: 72 bpm Height: 6'4" Respiratory Rate: 22 bpm SpO2: 98% Tempera ture: 35.9 (C) / 96.6 (F) Weight: 154 lbs 05/24/2015 Blood Pressure 1: 112/78 Code: 8480-6 BMI: 19.7 Code: 25591-7 Heart Rate 1: 78 bpm Height: 6'4" Respiratory Rate: 24 bpm SpO2: 97% Tempera ture: 36.4 (C) / 97.6 (F) Weight: 162 lbs Functional Status No Functional Status data Reason For Visit Reason For Visit Effective Dates Notes follow up 05/17/2019 follow up 05/02/2019 follow [...] care Encounters Encounter Performer Location Codes Date ([id number]) OFFICE/OUTPATIENT VISIT EST Diagnosis: 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, implant, or graft[ICD10: T85.818A] Diagnosis: DM w/o complication type II, uncontrolled[ICD10: E11.65] Janneth SHRESTHA [employer] CPT-4: 01445 05/17/2019 ([id number]) OFFICE/OUTPATIENT VISIT EST Diagnosis: Acute dermatitis[ICD10: L30.9] Diagnosis: DM w/o complication type II, uncontrolled[ICD10: E11.65] Diagnosis: Right leg DVT[ICD10: I82.401] Janneth SHRESTHA [employer] CPT-4: 84545 05/02/2019 ([id number]) OFFICE/OUTPATIENT VISIT EST Diagnosis: DM w/o complication type II, uncontrolled[ICD10: E11.65] Diagnosis: Allergic dermatitis[ICD10: L23.9] Diagnosis: Right leg DVT[ICD10: I82.401] Diagnosis: Paroxysmal atrial fibrillation[ICD10: I48.0] Diagnosis: Right calf pain[ICD10: M79.661] [facility] CPT-[facility]: 77082 04/25/2019 ([id number]) OFFICE/OUTPATIENT VISIT EST Diagnosis: DM w/o complication type II, uncontrolled[ICD10: E11.65] Diagnosis: 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, implant, or graft[ICD10: T85.818A] Diagnosis: Essential hypertension[ICD10: I10] Janneth NORWOODCELINE FLOR SHRESTHA [employer] [facility] CPT-4: 07849 04/11/2019 ([id number]) OFFICE/OUTPATIENT VISIT EST Diagnosis: Sinus tachycardia[ICD10: R00.0] Diagnosis: Folliculitis[ICD10: L73.9] [facility]OLINE [facility]: 65394 03/01/2019 ([id number]) OFFICE/OUTPATIENT VISIT EST Diagnosis: Cellulitis of left lower limb[ICD10: L03.116] Diagnosis: Tendinitis of left peroneus longus tendon[ICD10: M76.72] Janneth MEIRNOLINE L[facility] CPT-[facility]: 79547 11/18/2018 ([id number]) OFFICE/OUTPATIENT VISIT EST Diagnosis: Cellulitis of left foot[ICD10: L03.116] Diagnosis: Spontaneous ecchymoses[ICD10: R23.3] Diagnosis: Venous insufficiency (chronic) (peripheral)[ICD10: I87.2] Diagnosis: Mixed hyperlipidemia[ICD10: E78.2] Vania García REGINE RAY Liza SHRESTHA [employer] [facility] CPT-4: 15530 11/09/2018 ([id number]) OFFICE/OUTPATIENT VISIT EST Diagnosis: Venous insufficiency (chronic) (peripheral)[ICD10: I87.2] Diagnosis: Cellulitis of left lower limb[ICD10: L03.116] Diagnosis: Pain in right foot[ICD10: M79.671] Vania Cohenshahram RAY POW. AMBER [employer] [facility] CPT-4: 14006 10/13/2018 ([id number]) OFFICE/OUTPATIENT VISIT EST Diagnosis: Low back pain[ICD10: M54.5] Vania Gironmary Dsouza. Brandon [facility] CPT-4: 33899 09/23/2018 ([id number]) OFFICE/OUTPATIENT VISIT EST Diagnosis: Gastro-esophageal reflux disease without esophagitis[ICD10: K21.9] Diagnosis: Dysphagia, pharyngoesophageal phase[ICD10: R13.14] Janneth SHRESTHA [facility] CPT-4: 07275 09/06/2018 ([id number]) OFFICE/OUTPATIENT VISIT EST Diagnosis: Tinea corporis[ICD10: B35.4] Vania SHRESTHA [facility] CPT-4: 65034 07/15/2018 ([id number]) OFFICE/OUTPATIENT VISIT EST Diagnosis: Cellulitis of left toe[ICD10: L03.032] Diagnosis: Mixed hyperlipidemia[ICD10: E78.2] Mandy MERINOGINNY RAY Liza [facility]: 42359 2018 OFFICE/OUTPATIENT VISIT EST Diagnosis: Cellulitis of left toe[ICD10: L03.032] Diagnosis: Unspecified disturbances of skin sensation[ICD10: R20.9] [facility] CPT[facility]: 29840 04/14/2018 ([id number]) OFFICE/OUTPATIENT VISIT EST Diagnosis: Cellulitis of left toe[ICD10: L03.032] Diagnosis: Insomnia, unspecified[ICD10: G47.00] [facility] C[facility]: 76762 03/18/2018 ([id number]) OFFICE/OUTPATIENT VISIT EST Diagnosis: Other postprocedural complications and disorders of the circulatory system, not elsewhere classified[ICD10: I97.89] Diagnosis: Rash and other nonspecific skin eruption[ICD10: R21] Diagnosis: Pain in right leg[ICD10: M79.604] Vania SHRESTHA [facility] CPT-4: 43912 01/26/2018 ([id number]) OFFICE/OUTPATIENT VISIT EST Diagnosis: Other postprocedural complications and disorders of the circulatory system, not elsewhere classified[ICD10: I97.89] Diagnosis: Cellulitis of right lower limb[ICD10: L03.115] Vania SHRESTHA [facility] CPT-4: 46424 12/22/2017 ([id number]) OFFICE/OUTPATIENT VISIT EST Diagnosis: Acute sinusitis, unspecified[ICD10: J01.90] Diagnosis: Unspecified disturbances of skin sensation[ICD10: R20.9] Vania SHRESTHA DO [facility] CPT-4: 91181 10/06/2017 ([id number]) OFFICE/OUTPATIENT VISIT EST Diagnosis: Primary insomnia[ICD10: F51.01] Diagnosis: Pain in left shoulder[ICD10: M25.512] Diagnosis: Poisoning by other parasympatholytics [anticholinergics and antimuscarinics] and spasmolytics, accidental (unintentional), sequela[ICD10: T44.3X1S] Janneth SHRESTHA DO [facility] CPT-4: 69601 02/03/2017 OFFICE/OUTPATIENT VISIT EST Diagnosis: Insomnia, unspecified[ICD10: G47.00] Diagnosis: Constipation, unspecified[ICD10: K59.00] Diagnosis: Spontaneous ecchymoses[ICD10: R23.3] Diagnosis: Pain in left foot[ICD10: M79.672] Vania SHRESTHA [employer] [facility] CPT-4: 52086 11/25/2016 OFFICE/OUTPATIENT VISIT EST Diagnosis: Insomnia, unspecified[ICD10: G47.00] Diagnosis: Constipation, unspecified[ICD10: K59.00] Diagnosis: Spontaneous ecchymoses[ICD10: R23.3] Diagnosis: Other specified local infections of the skin and subcutaneous tissue[ICD10: L08.89] Vania SHRESTHA DO [facility] CPT-4: 99 213 11/14/2016 ([id number]) OFFICE/OUTPATIENT VISIT EST Diagnosis: Acute upper respiratory infection, unspecified[ICD10: J06.9] Ester MERINOLINE Liza SHRESTHA [employer] [facility] CPT-4: 11372 04/02/2016 ([id number]) OFFICE/OUTPATIENT VISIT EST Diagnosis: Acute upper respiratory infection, unspecified[ICD10: J06.9] Ester Grande JANNETH Liza SHRESTHA [employer] [facility] CPT-4: 25091 11/29/2015 ([id number]) OFFICE/OUTPATIENT VISIT EST Diagnosis: Pain in thoracic spine[ICD10: M54.6] Diagnosis: Paresthesia of skin[ICD10: R20.2] Diagnosis: Dysphagia, unspecified[ICD10: R13.10] Ester SHRESTHA [employer] CPT-4: 63221 06/27/2015 ([id number]) OFFICE/OUTPATIENT VISIT NEW Diagnosis: Pain in left leg[ICD10: M79.605] Diagnosis: Male erectile dysfunction, unspecified[ICD10: N52.9] Diagnosis: Dysphagia, unspecified[ICD10: R13.10] Ester SHRESTHA [employer] [facility] CPT-4: 98791 05/24/2015 Plan of Care Planned Activity Notes Codes Status Date Visit Diagnosis Plan: DM w/o complication type [...] ICD-9 : 996.70 ICD-10 : T85.818A 05/17/2019 Patient Education: Metformin Patient Savings Message [...] E11.65 05/02/2019 Appointment: [facility]rest[phone] [facility] [facility] 05/02/2019 Patient Education: metoprolol succinate- [employer] Co upon [id number] https://www.[employer]/resources/getResource/61/26333ii7-d5f1-884u-o3 Completed 05/02/2019 Visit Diagnosis Plan: Paroxysmal atrial [...] E11.65 04/25/2019 Appointment: [facility]rest[phone] [facility] [facility] 04/25/2019 Patient Education: Metformin Patient Savings Message Alert Completed 04/25/2019 Patient Education: prednisone- [employer] Coupon [id number] https://www.[employer]/resources/getResource/61/5ot74mt7-k5yp-7u73-in Completed 04/25/2019 Visit Diagnosis Plan: DM w/o [...] graft and stent placement by Dr. Allen--on jaradto ICD-9 : 996.70 ICD-10 : T85.818A 04/11/2019 Appointment: Janneth Shrestha WPtel: [address] [place], [place] [phone] ACUTE ILLNESS 04/11/2019 Patient Education: metoprolol succinate- [employer] Co upon [id number] https://www.[employer]/resources/getResource/61/br950832-41ny-9i22-45 Completed 04/11/2019 Patient Education: Metformin Patient Savings Message Alert Completed 04/11/2019 Patient Education: cephalexin- [employer] Coupon [id number] https://www.[employer]/resources/getResource/61/5yyz9680-5q8v-9982-lu Completed 04/11/2019 Visit Diagnosis Plan: Folliculitis Discussion: Bactrim and topical bactroban ICD-9 : 704.8 ICD-10 : L73.9 03/01/2019 Visit Diagnosis Plan: Sinus tachycardia Discussion: St art low dose metoprolol ER 25mg daily Monitor pulse Sees Cardiology next month ICD-9 : 427.89 ICD-10 : R00.0 03/01/2019 Appointment: Janneth Shrestha WPtel: [address] [place], [place] [phone] [place] FOLLOW UP 03/01/2019 Patient Education: mupirocin- [employer] Coupon [id number] https://www.[employer]/resources/getResource/61/ui267ko1-66be-763u-kz Completed 03/01/2019 Appointment: Janneth Shrestha WPtel: [address] [place], [place] [phone] [place] CANCELED 12/20/2018 Visit Diagnosis Plan: Cellulitis [...] : M76.72 11/18/2018 Appointment: Vania García [address] [facility] [place] CANCELED 11/18/2018 Appointment: Janneth Shrestha WPtel: [address] [facility] [place] FOLLOW UP 11/18/2018 Patient Education: doxycycline monohydrate- [employer] Coupon [id number] https://www.[employer]/resources/getResource/61/shk39520-a1a1-16e5-8g Completed 11/18/2018 Patient Education: prednisone- [employer] Coupon [id number] https://www.[employer]/resources/getResource/61/31fq5t3x-9kj6-8758-ts Completed 11/18/2018 Care Plan: Referral Order SNOMED-CT : 30 1832620 Pending 11/18/2018 Visit Diagnosis Plan: Venous insufficiency [...] evaluated in an ED whether it be [place] or wherever he's traveling. discussed the risk [...] ICD-10 : R23.3 11/09/2018 Appointment: Vania García [address] [place], [place] [phone] ACUTE ILLNESS 11/09/2018 Patient Education: clindamycin HCl- [employer] Coupon [id number] https://www.[employer].com/samplemd/resources/getResource/61/48bw09z2-js25-3xj8-6t Completed 11/09/2018 Appointment: Janneth Shrestha WPtel: [phone] [facility] [place] CANCELED 10/19/2018 Visit Diagnosis Plan: Pain [...] ICD-10 : L03.116 10/13/2018 Appointment: Vania García [address] [place], [place] [id number] [place] Patient cant pay copay till when he [...] ICD-10 : M54.5 09/23/2018 Appointment: Vania García [address] [place] [address] ACUTE ILLNESS 09/23/2018 Patient Education: Medrol (Brenden)- [employer] Coupon [phone] https://www.[employer]/resources/getResource/61/qurm424r-8176-30b3-20 Completed 09/23/2018 Visit Diagnosis Plan: Dysphagia, pharyngoesophageal ph ase Discussion: Referral for EGD ICD-9 : 787.24 ICD-10 : R13.14 09/06/2018 Visit Diagnosis Plan: Gastro-esophageal reflux disease without esophagitis Discussion: Start omeprazole ICD-9 : 530.81 ICD-10 : K21.9 09/06/2018 Appointment: Janneth Shrestha WPtel: [facility] [place] [id number] [place] [address] ACUTE ILLNESS 09/06/2018 Patient Education: omeprazole- [employer] Coupon [phone] https://www.[employer]/resources/getResource/61/954lg871-25k3-615o-79 Completed 09/06/2018 Care Plan: Referral Order SNOMED-CT : 30 0615579 Pending 09/06/2018 Visit Diagnosis Plan: Tinea corporis Discussion: nysta tin to be used bid until rash gone and then an additional 2 days. diflucan every 3 days for 3 doses. keep area clean and dry with no moisturizers. call office if no improvement in 2 weeks or if worsening. ICD-9 : 110.5 ICD-10 : B35.4 07/15/2018 Appointment: Vania García [address] [place] [address] ACUTE ILLNESS 07/15/2018 Patient Education: nystatin- [employer] Coupon [id number] https://www.[employer]ole[employer]/samplemd/resources/getResource/61/47iry468-p0qs-22yq-4z Completed 07/15/2018 Patient Education: Plavix- [employer] Coupon [id number] https://www.[employer]/samplemd/resources/getResource/61/98te7f56-o73m-35ia-74 fa-t187w4520161.pdf Completed 07/15/2018 Patient Education: cyclobenzaprine- [employer] Coupon [id number] https://www.[employer]/resources/getResource/61/29124z3f-5t70-34j5-ez Completed 07/15/2018 Visit Diagnosis Plan: Cellulitis of [...] ICD-10 : L03.032 2018 Appointment: Mandy Hollins [facility] [employer] [address] FOLLOW UP 2018 Patient Education: mupirocin- [employer] Coupon [id number] https://www.[employer]ole[employer]/resources/getResource/61/g6js35u2-4730-9533-9t Completed 2018 Visit Diagnosis Plan: Cellulitis of [...] ICD-10 : R20.9 04/14/2018 Appointment: Mandy Hollins [facility] [employer] [address] FOLLOW UP 04/14/2018 Visit Diagnosis Plan: Cellulitis [...] ICD-10 : G47.00 03/18/2018 Appointment: Vania García [address] [place] [address] ACUTE ILLNESS 03/18/2018 Patient Education: cyclobenzaprine- [employer] Coupon [id number] https://www.[employer]/samplemd/resources/getResource/61/4558h025-5sm7-568r-y0 Completed 03/18/2018 Visit Diagnosis Plan: Rash and other nonspecific skin eruption Discussion: triamcinolone ordered to be used as directed. ICD-9 : 782.1 ICD-10 : R21 01/26/2018 Visit Diagnosis Plan: Other postprocedur al complications and disorders of the circulatory system, not elsewhere classified Discussion: discussed with dr. shrestha and patient was instructed to contact the [place] [facility] de[facility]. due to uncontrolled pain, continued erythema, patient needs to be re-evaluated by the surgeon. 60 mg toradol given to patient. patient verbalized understanding and voiced he will contact them today for an appointment. ICD-9 : 997.1 ICD-10 : I97.89 01/26/2018 Appointment: Vania García [address] [place] [address] Follow Up 01/26/2018 Appointment: Janneth Shrestha WPtel: [phone] [facility] [place] [address] NO SHOW 01/06/2018 Visit Diagnosis Plan: Other [...] : I97.89 12/22/2017 Appointment: Vania García [address] [facility] ACUTE ILLNESS 12/22/2017 Visit Diagnosis Plan: [...] : J01.90 10/06/2017 Appointment: Vania García [address] [facility] ACUTE ILLNESS 10/06/2017 Patient Education: Patient Medication Summary Completed 10/06/2017 Appointment: Vania García [address] [facility] ER Follow UP 08/17/2017 Appointment: Vania García [address] [place], [place] [address] [place] CANCELED 07/03/2017 Appointment: [facility]restha [facility]el[phone] [id number] [place] canceled at 8:05 this morning. CANCELED [...] T44.3X1S 02/03/2017 Appointment: Janneth Shrestha WPtel: [address] [facility] [place] [address] Follow Up 02/03/2017 Patient Education: Patient Medication [...] Discussion: re isabella sent for dr garcia waterproof material folder. ICD-9 : 729.5 ICD-10 : M79.672 11/25/2016 Visit Diagnosis Plan: Insomnia, unspecified Recommenda tions: resolved with lunesta. continue taking as prescribed. ICD-9 : 780.52 ICD-10 : G47.00 11/25/2016 Appointment: Vania García [address] [place], [place] [id number] FOLLOW UP 11/25/2016 Patient Education: Patient Medication [...] ICD-10 : K59.00 11/14/2016 Appointment: Vania García [address] [place] [address] ACUTE ILLNESS 11/14/2016 Patient Education: Patient Medication Summary Completed 11/14/2016 Visit Diagnosis Plan: Acute upper respiratory infectio n, unspecified Discussion: Rxs as above Continue OTC and supportive meds Encouraged smoking cessation Follow up PRN ICD-9 : 465.9 ICD-10 : J06.9 04/02/2016 Appointment: Ester Grande [address] [place] [address] ACUTE ILLNESS 04/02/2016 Patient Education: Patient Medication Summary Completed 04/02/2016 Visit Plan: Rxs as above Supportive care reviewed Follow up PRN 11/29/2015 Appointment: Ester Grande [address] [place] [address] 11/27 confirmed~sl ACUTE ILLNESS 11/29/2015 Patient Education: [...] for pain 06/27/2015 Appointment: Ester Grande [address] [facility] 06/25 lm ~sl 06/26 phone not on~sl FOLLOW UP 06/27/2015 Patient Education: Patient Medication Summary Completed 06/27/2015 Care Plan: X-RAY EXAM RIBS UNI 2 VIEWS L OINC : 32344-3 Pending 06/27/2015 Referral: Héctor Woodard WPtel: [phone] [facility] 05/29 Scheduled with sena ~ Appointment Re quested 06/26/2015 Referral: Cameron Khanna WPtel: [phone] [facility] [place] Referral Initiated 06/11/2015 Referral: Marco Antonio Green WPtel: [address] [id number] 05/30/15 Needs to be there at pre op time per ~sl Initiated 06/04/2015 Visit Plan: Will get all necessary refer rals set up - CTS, Uro and G/S Swallow study and routine labs ordered Will further investigate left leg pain with EMG if not cardio related 05/24/2015 Appointment: Ester Grande [address] [facility] [place] NEW PATIENT 05/24/2015 Patient Education: Patient Medication Summary Completed 05/24/2015 Care Plan: Referral Order SNOMED-CT : 30 [id number] Pending 05/24/2015 Care Plan: Referral Order SNOMED-CT : 30 [id number] Pending 05/24/2015 Care Plan: Referral Order SNOMED-CT : 30 1378540 Pending 05/24/2015 Referral: Sudheer Gann WPtel: [address] [facility] [place] Referral Appointment Requested Referral: Alfonzo Andujar WPtel: [address] [facility] [place] Referral Initiated Referral: [facility] [address] [facility] [place] Referral Completed Referral: Cameron Khanna WPtel: [address] [place] [address] [place] Referral Appointment Requested Referral: RoseBrianna WPtel: [address] [place] [address] [place] Referral Initiated Referral: YamiletHéctor jones WPtel: [address] [address] [place] 05/24/15 [facility] office suggested he see another card. ~sl Initiated Referral: Alfonzo Andujar WPtel: [address] [place] [address] [place] Referral Appointment Requested Referral: Marco Antonio Green WPtel: [address] [place] [address] [place] Referral Appointment Requested Instructions Comment . [...]
--- OUTSIDE RECORDS SUMMARY | 2019-08-06 10:23 | XMS REPORT | CCD ---
Author Author [place] Organization JANNETH SHRESTHA DO [facility] Address [address] [place] [address] Phone Unavailable Care Team Providers Care Chef De Froid Name Role Phone Janneth Shrestha D.O., PP Unavailable CCM Unavailable Summary Purpose Interface Exchange Insurance Providers Payer name Policy type / Coverage type Covered alliance party ID Effective Begin Date Effective End Date Blue Cross Blue Shield Blue Cross/Blue Shield [id number] Unknown Family History Family History data not found Social History Social History Element Codes Description Effective Dates Marital status Unknown 05/24/2015 Number of children Unknown 2 05/24/2015 Employment Unknown Currently employed 05/24/[address]: 53467044 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 [...] 50 mg tablet,extended release 24 hr RxNorm: 398468 1 Tablet(s) Oral QD 08/01/2019 10/30/2019 Active cyclobenzaprine 10 mg tablet RxNorm: 347520 TAKE ONE TA BLET BY MOUTH AT BEDTIME NEEDED 05/20/2019 No Stop Date Active metformin ER 1,000 mg tablet,extended release 24hr RxNorm: 1 507133 1 Tablet(s) Oral two times a day replaces 500mg dose 05/17/2019 11/13/2019 Active [AttnRPh: Saving apply/adjudicate RxGRP:[id number] RxBIN:[id number] RxPCN: ID#:[id number]] ReliOn Prime Test Strips RxNorm: 1 Unit [...] 05/01/2019 Inactive Xarelto 20 mg tablet RxNorm: 2054655 1 Tablet(s) Oral QD 04/25/2019 No Stop Date Active Plavix 75 mg tablet RxNorm: 439150 TAKE ONE TABLET BY MOUTH DAILY 0 04/25/2019 04/26/2019 Inactive amiodarone 200 mg tablet RxNorm: 441291 1 Tablet(s) Oral QD 020 No Stop Date Active Plavix 75 mg tablet RxNorm: 470385 TAKE ONE TABLET BY MOUTH DAILY 0 04/25/2019 04/24/2019 Inactive metformin ER 500 mg 24 hr tablet,extended release RxNorm: 18 43828 1 Tablet(s) Oral two times a day 04/25/2019 05/16/2019 Inactive prednisone 20 mg tablet RxNorm: 751912 1 Tablet(s) Oral two jn es a day 04/25/2019 05/01/2019 Inactive aspirin 81 mg tablet,delayed release RxNorm: 976954 1 Tablet(s) Oral QD 04/11/2019 No Stop Date Active pantoprazole 40 mg tablet,delayed release RxNorm: 807772 1 Tabl et(s) Oral QAM 04/11/2019 No Stop Date Active Vitamin C 1,000 mg tablet RxNorm: 482786 1 Tablet(s) Oral QD 2019 No Stop Date Active Xarelto 15 mg tablet RxNorm: 0872103 1 Tablet(s) Oral QD 04/11/2019 0 04/24/2019 Inactive metformin ER 500 mg 24 hr tablet,extended release RxNorm: 18 77409 1 Tablet(s) Oral QD 04/11/2019 04/24/2019 Inactive cephalexin 500 mg capsule RxNorm: 710696 1 Capsule(s) Oral thre e times a day 04/11/2019 04/18/2019 Inactive metoprolol succinate ER 50 mg tablet,extended release 24 hr RxNorm: 223960 1 Tablet(s) Oral QD replaces 25mg dose 04/11/2019 05/01/2019 Inactive cyclobenzaprine 10 mg tablet RxNorm: 531994 TAKE ONE TA BLET BY MOUTH EVERY NIGHT AT BEDTIME NEEDED 03/11/2019 No Stop Date Active mupirocin 2 % topical ointment RxNorm: 342942 Applicati on Topical two times a day 03/01/2019 04/10/2019 Inactive metoprolol succinate ER 25 mg tablet,extended release 24 hr RxNorm: 204409 1 Tablet(s) Oral QD 03/01/2019 04/24/2019 Inactive Bactrim DS 800 mg-160 mg tablet RxNorm: 789609 1 Tablet(s) Oral two times a day 03/01/2019 03/11/2019 Inactive cyclobenzaprine 10 mg tablet RxNorm: 138958 TAKE ONE TA BLET BY MOUTH EVERY NIGHT AT BEDTIME NEEDED 01/10/2019 03/10/2019 Inactive Plavix 75 mg tablet RxNorm: 592997 TAKE ONE TABLET BY MOUTH DAILY 1 03/12/2018 04/24/2019 Inactive omeprazole 40 mg capsule,delayed release RxNorm: 735468 TAKE ONE CAPSULE BY MOUTH EVERY NIGHT AT BEDTIME FOR REFLUX 01/10/2019 05/16/2019 Inactive tramadol 50 mg tablet RxNorm: 088986 1 Tablet(s) Oral f our times a day as needed 01/03/2019 01/03/2019 Inactive doxycycline monohydrate 100 mg capsule RxNorm: 0669819 1 Capsule(s) Oral two times a day 11/22/2018 12/13/2018 Inactive prednisone 20 mg tablet RxNorm: 060247 1 Tablet(s) Oral two jn es a day 11/22/2018 11/29/2018 Inactive Levaquin 750 mg tablet RxNorm: 180401 Tablet(s) Oral 11/18/201802/28 Inactive prednisone 20 mg tablet RxNorm: 564488 1 Tablet(s) Oral two jn es a day 11/18/2018 11/21/2018 Inactive tramadol 50 mg tablet RxNorm: 894750 Tablet(s) Oral 11/18/20182018 Inactive doxycycline monohydrate 100 mg capsule RxNorm: 8181915 1 Capsule(s) Oral two times a day 11/18/2018 11/21/2018 Inactive Plavix 75 mg tablet RxNorm: 880810 TAKE ONE TABLET BY MOUTH DAILY 0 11/10/2018 01/08/2019 Inactive clindamycin HCl 300 mg capsule RxNorm: 098122 1 Capsule (s) Oral three times a day 11/09/2018 11/19/2018 Inactive Keflex 500 mg capsule RxNorm: 947508 1 Capsule(s) PO BID 10/13/2018 0 10/22/2018 Inactive Medrol (Brenden) 4 mg tablets in a dose pack RxNorm: 278890 Tablet(s) take as directed PO 09/23/2018 10/12/2018 Inactive omeprazole 40 mg capsule,delayed release RxNorm: 018337 1 Capsule(s) PO QHS for reflux 09/06/2018 11/04/2018 Inactive Diflucan 150 mg tablet RxNorm: 211322 1 Tablet(s) PO Q72H 07/15/2018 09/05/2018 Inactive cyclobenzaprine 10 mg tablet RxNorm: 370317 1 Tablet(s) PO QHS as needed 07/15/2018 10/12/2018 Inactive nystatin 100,000 unit/gram topical cream RxNorm: 773170 1 Gram( s) TOP BID 07/15/2018 09/05/2018 Inactive Plavix 75 mg tablet RxNorm: 035692 1 Tablet(s) PO QD 07/15/201810/12 Inactive cyclobenzaprine 10 mg tablet RxNorm: 510709 1 Tablet(s) PO QHS as needed 06/10/2018 06/09/2018 Inactive cyclobenzaprine 10 mg tablet RxNorm: 084614 TAKE ONE TA BLET BY MOUTH EVERY NIGHT AT BEDTIME NEEDED 05/10/2018 06/10/2018 Inactive mupirocin 2 % topical ointment RxNorm: 985530 1 Application TOP BID 2018 05/25/2018 Inactive 22 gram cyclobenzaprine 10 mg tablet RxNorm: 064332 1 Tablet(s) PO QHS as needed 04/14/2018 06/09/2018 Inactive doxycycline hyclate 100 mg tablet RxNorm: 4932488 1 Tablet(s) PO BI D 04/14/2018 04/23/2018 Inactive cyclobenzaprine 10 mg tablet RxNorm: 090589 1 Tablet(s) PO QHS as needed 04/07/2018 04/13/2018 Inactive Bactrim DS 800 mg-160 mg tablet RxNorm: 434195 1 Tablet(s) PO BID 0 03/18/2018 03/27/2018 Inactive cyclobenzaprine 10 mg tablet RxNorm: 521050 1 Tablet(s) PO QHS as needed 03/18/2018 04/06/2018 Inactive triamcinolone acetonide 0.1 % topical cream RxNorm: 5496751 APPLY TO AFFECTED AREA(S) TWO TIMES A DAY 02/03/2018 02/12/2018 Inactive triamcinolone acetonide 0.1 % topical cream RxNorm: 5036241 1 Application TOP BID 01/26/2018 02/02/2018 Inactive Medrol (Brenden) 4 mg tablets in a dose pack RxNorm: 570522 TAKE BY MOUTH INSTRUCTED - PER PACKAGE INSTRUCTIONS 12/11/2017 12/16/2017 Inactive Medrol (Brenden) 4 mg tablets in a dose pack RxNorm: 515602 Tablet(s) P O 10/06/2017 12/10/2017 Inactive Lunesta 3 mg tablet RxNorm: 263871 1 Tablet(s) PO QHS 11/25/201608/2016 Inactive Lunesta 3 mg tablet RxNorm: 705641 1 Tablet(s) PO QHS 11/14/201610/2016 Inactive Bactrim DS 800 mg-160 mg tablet RxNorm: 759072 1 Tablet(s) PO BID 0 11/14/2016 11/23/2016 Inactive Epi E-Z Pen 0.3 mg/0.3 mL injection, auto-injector RxNorm: 1 102607 Milliliter(s) IM Use as Directed 06/25/2016 09/05/2018 Inactive amoxicillin 875 mg tablet RxNorm: 896109 1 Tablet(s) PO BID 017 04/11/2016 Inactive prednisone 20 mg tablet RxNorm: 568219 1 Tablet(s) PO BID 04/02/2016 04/06/2016 Inactive azithromycin 250 mg tablet RxNorm: 986933 2 Tablet(s) P O on day one then 1 tab on days 2-5 11/29/2015 11/28/2015 Inactive Medrol (Brenden) 4 mg tablets in a dose pack RxNorm: 546318 Take as directed 11/29/2015 11/13/2016 Inactive meloxicam 15 mg tablet RxNorm: 724780 1 Tablet(s) PO QD 07/02/2015 Inactive Chantix Starting Month Box 0.5 mg (11)-1 mg (42) table ts in dose pack RxNorm: 897768 Tablet(s) PO As Directed 06/20/2015 07/10/2015 Inactive omeprazole 40 mg capsule,delayed release RxNorm: 551012 1 Capsu le(s) PO QD 05/31/2015 11/13/2016 Inactive omeprazole 40 mg capsule,delayed release RxNorm: 730106 1 Capsu le(s) PO QD 05/31/2015 05/30/2015 Inactive Lactobacillus acidophilus-Bifidobacterium longum oral RxNorm: oral No Start Date Active Multivitamin And Mineral oral RxNorm: oral No Start Date Active Wellbutrin SR 150 mg tablet,sustained-release RxNorm: 949470 1 Tablet(s) PO BID No Start Date 11/13/2016 Inactive gabapentin 100 mg capsule RxNorm: 790236 1 Capsule(s) PO TID No Sta rt Date 03/17/2018 Inactive Chantix Starting Month Box 0.5 mg (11)-1 mg (42) table ts in dose pack RxNorm: 718650 Tablet(s) PO As Directed No Start Date 06/19/2015 Inactive Eliquis 5 mg tablet RxNorm: 5113492 1 Tablet(s) PO BID No Start Date 03/17/2018 Inactive aspirin 325 mg tablet RxNorm: 544216 1 Tablet(s) PO QD No Start Date 11/13/2016 Inactive clindamycin HCl 300 mg capsule RxNorm: 662859 2 Capsule(s) PO Q8H N o Start Date 03/17/2018 Inactive Fish Oil 1,000 mg (120 mg-180 mg) capsule RxNorm: 1 Caps ule(s) PO QD No Start Date 09/05/2018 Inactive aspirin 81 mg tablet RxNorm: 133906 1 Tablet(s) PO QD No Start Date 1 03/28/2017 Inactive Fish Oil 1,000 mg capsule RxNorm: 1 Capsule(s) PO QD No Start Date 11/13/2016 Inactive Baby Aspirin 81 mg chewable tablet RxNorm: 124490 1 Tablet(s) P O BID No Start Date 02/02/2017 Inactive Xarelto 10 mg tablet RxNorm: 1049038 1 Tablet(s) PO QD No Start Date 01/25/2018 Inactive tramadol 50 mg tablet RxNorm: 388960 1-2 Tablet(s) PO Q6H No Start Date 03/17/2018 Inactive meloxicam 15 mg tablet RxNorm: 945005 1 Tablet(s) PO QD No Start Da te 07/01/2015 Inactive Epi E-Z Pen 0.3 mg/0.3 mL injection, auto-injector RxNorm: 1 768894 Milliliter(s) IM Use as Directed No Start Date 06/24/2016 Inactive Plavix 75 mg tablet RxNorm: 389499 1 Tablet(s) PO QD No Start Date Inactive Medication Administered No Medication Administered data Immunizations No Immunization data Results Observation Observation Code Item Item Code Result Date S ervice Location COMPREHENSIVE METABOLIC 61393 AST 25 U/L 2018 Unknown COMPREHENSIVE METABOLIC 73928 ALT 28 U/L 2018 Unknown COMPREHENSIVE METABOLIC 47217 BUN 13 mg/dL 2018 Unknown COMPREHENSIVE METABOLIC 01601 ALBUMIN 4.2 g/dL 2018 Unknown COMPREHENSIVE METABOLIC 03405 CHLORIDE 104 mmol/L 11/09 Unknown COMPREHENSIVE METABOLIC 45042 Bili Total 0.5 mg/dL 11/09 Unknown COMPREHENSIVE METABOLIC 90300 ALK PHOS 72 U/L 2018 Unknown COMPREHENSIVE METABOLIC 72132 SODIUM 139 mmol/L 11/09 Unknown COMPREHENSIVE METABOLIC 61046 CREATININE 0.98 mg/dL 10/18 Unknown COMPREHENSIVE METABOLIC 81633 CALCIUM 9.1 mg/dL 2018 Unknown COMPREHENSIVE METABOLIC 29480 POTASSIUM 3.7 mmol/L 11/09 Unknown COMPREHENSIVE METABOLIC 56722 Total Protein 7.2 g/dL Unknown COMPREHENSIVE METABOLIC 04262 Glucose 137 mg/dL 2018 Unknown COMPREHENSIVE METABOLIC 82294 Bicarbonate 24 mmol/L 10/18 Unknown COMPREHENSIVE METABOLIC 18781 AGAP 11 mmol/L 2018 Unknown COMPLETE BLOOD COUNT [id number] WBC 4.6 10e9/L 11/10/19 19 Unknown COMPLETE BLOOD COUNT [id number] RBC 4.88 10e12/L 2018 Unknown COMPLETE BLOOD COUNT [id number] HEMOGLOBIN 14.7 g/dL 11/10/19 19 Unknown COMPLETE BLOOD COUNT [id number] HEMATOCRIT 43.7 % 11/10/19 19 Unknown COMPLETE BLOOD COUNT [id number] MCV 89.5 fL 9 Unknown COMPLETE BLOOD COUNT [id number] MCH 30.1 pg 9 Unknown COMPLETE BLOOD COUNT 7726550 MCHC 33.6 g/dL 9 Unknown COMPLETE BLOOD COUNT [id number] PLATELET COUNT 179 10e9/L Unknown COMPLETE BLOOD COUNT 3778897 Mean Plt Volume 11.6 fL Unknown COMPLETE BLOOD COUNT 7702077 Neut Auto 55.5 % 9 Unknown COMPLETE BLOOD COUNT [id number] Lymph Auto 28.7 % 11/10/19 19 Unknown COMPLETE BLOOD COUNT 6046298 [place] Auto 7.9 % 9 Unknown COMPLETE BLOOD COUNT 2977294 RDW 13.2 % 9 Unknown COMPLETE BLOOD COUNT 8968762 Eos Auto 7.7 % 9 Unknown COMPLETE BLOOD COUNT 6400793 Baso Auto 0.2 % 9 Unknown COMPLETE BLOOD COUNT 0914980 Neutrophil Abs 2.55 10e9/L Unknown COMPLETE BLOOD COUNT 2978349 Lymphocyte Abs 1.32 10e9/L Unknown COMPLETE BLOOD COUNT [id number] Monocyte Abs 0.36 10e9/L 10/18 Unknown COMPLETE BLOOD COUNT [id number] Eosinophil Abs 0.35 10e9/L Unknown COMPLETE BLOOD COUNT 1775632 RDW-SD 42.2 fL 9 Unknown COMPLETE BLOOD COUNT 4394447 Basophil Abs 0.01 10e9/L 10/18 Unknown LIPID GROUP 60274 Cholesterol 205 mg/dL 11/09/2018 Unkno wn LIPID GROUP 66066 Triglyceride 268 mg/dL 11/09/2018 Unkn own LIPID GROUP 66211 HDL CHOLESTEROL 35 mg/dL 11/09/2018 U nknown LIPID GROUP 60796 Chol/HDL Ratio 5.86 ratio 11/09/2018 U nknown LIPID GROUP 21100 NON-HDL Chol 170 mg/dL 11/09/2018 Unkn own LIP[facility] GROUP 22074 LDL Cholesterol 116 mg/dL 11/09/2018 U nknown PT 7630302 PT 12.7 Seconds 11/09/2018 Unknow n PT [id number] INR 0.9 11/09/2018 Unknown GFR CALC 1546908 GFR Non Afr Amr >60 mL/min 11/09/2018 Un known GFR CALC 7764091 GFR Afr Amr >60 mL/min 11/09/2018 Unknow n ACT PARTIAL THRMBOPLASTIN TIME 25220 PTT 34.0 [place] nds 11/09/2018 Unknown LIPID GROUP 65319 Cholesterol 186 mg/dL 2018 Unkno wn LIPID GROUP 24979 Triglyceride 229 mg/dL 2018 Unkn own LIPID GROUP 95890 HDL CHOLESTEROL 36 mg/dL 2018 U nknown LIP[facility] GROUP 75275 Chol/HDL Ratio 5.17 ratio 2018 U nknown LIPID GROUP 08213 NON-HDL Chol 150 mg/dL 2018 Unkn own LIPID GROUP 00569 LDL Cholesterol 104 mg/dL 2018 U nknown GFR CALC 5715273 GFR Non Afr Amr >60 mL/min 2018 Un known GFR CALC 5734565 GFR Afr Amr >60 mL/min 2018 Unknow n COMPREHENSIVE METABOLIC 86070 AST 23 U/L 2018 Unknown COMPREHENSIVE METABOLIC 27762 ALT 22 U/L 2018 Unknown COMPREHENSIVE METABOLIC 96558 BUN 15 mg/dL 2018 Unknown COMPREHENSIVE METABOLIC 12708 ALBUMIN 4.1 g/dL 2018 Unknown COMPREHENSIVE METABOLIC 42719 CHLORIDE 106 mmol/L 05/06 Unknown COMPREHENSIVE METABOLIC 20798 Bili Total 0.6 mg/dL 05/06 Unknown COMPREHENSIVE METABOLIC 27730 ALK PHOS 61 U/L 2018 Unknown COMPREHENSIVE METABOLIC 86364 SODIUM 141 mmol/L 05/06 Unknown COMPREHENSIVE METABOLIC 51245 CREATININE 0.91 mg/dL 04/17 Unknown COMPREHENSIVE METABOLIC 16132 CALCIUM 9.2 mg/dL 2018 Unknown COMPREHENSIVE METABOLIC 55419 POTASSIUM 3.8 mmol/L 05/06 Unknown COMPREHENSIVE METABOLIC 55895 Total Protein 7.0 g/dL Unknown COMPREHENSIVE METABOLIC 38535 Glucose 97 mg/dL 2018 Unknown COMPREHENSIVE METABOLIC 68567 Bicarbonate 28 mmol/L 04/17 Unknown COMPREHENSIVE METABOLIC 55744 AGAP 7 mmol/L 2018 Unknown THYROID STIMULATING HORMONE 24505 TSH 2.094 uIU/mL 2018 Unknown COMPLETE BLOOD COUNT 4057347 WBC 5.5 10e9/L 05/07/19 19 Unknown COMPLETE BLOOD COUNT 4064719 RBC 4.61 10e12/L 2018 Unknown COMPLETE BLOOD COUNT 2966251 HEMOGLOBIN 13.6 g/dL 05/07/19 19 Unknown COMPLETE BLOOD COUNT 5207996 HEMATOCRIT 40.0 % 05/07/19 19 Unknown COMPLETE BLOOD COUNT 8560522 MCV 86.8 fL 9 Unknown COMPLETE BLOOD COUNT 1962429 MCH 29.5 pg 9 Unknown COMPLETE BLOOD COUNT 7191033 MCHC 34.0 g/dL 9 Unknown COMPLETE BLOOD COUNT 3557619 PLATELET COUNT 197 10e9/L Unknown COMPLETE BLOOD COUNT 0114762 Mean Plt Volume 10.8 fL Unknown COMPLETE BLOOD COUNT 7945419 Neut Auto 49.6 % 9 Unknown COMPLETE BLOOD COUNT 2571527 Lymph Auto 36.8 % 05/07/19 19 Unknown COMPLETE BLOOD COUNT 9207116 [place] Auto 8.1 % 9 Unknown COMPLETE BLOOD COUNT 0490579 RDW 15.3 % 9 Unknown COMPLETE BLOOD COUNT 1387324 Eos Auto 5.3 % 9 Unknown COMPLETE BLOOD COUNT 5690558 Baso Auto 0.2 % 9 Unknown COMPLETE BLOOD COUNT 0318587 Neutrophil Abs 2.73 10e9/L Unknown COMPLETE BLOOD COUNT 8926769 Lymphocyte Abs 2.02 10e9/L Unknown COMPLETE BLOOD COUNT 4411650 Monocyte Abs 0.45 10e9/L 04/17 Unknown COMPLETE BLOOD COUNT [id number] Eosinophil Abs 0.29 10e9/L Unknown COMPLETE BLOOD COUNT 8445896 RDW-SD 47.9 fL 9 Unknown COMPLETE BLOOD COUNT [id number] Basophil Abs 0.01 10e9/L 04/17 Unknown Procedures Procedure Codes Date CEFTRIAXONE SODIUM INJECTION CPT-4: J0696 11/09/2018 THER/PROPH/DIAG INJ SC/IM CPT-4: 44765 11/09/2018 ROUTINE VENIPUNCTURE CPT-4: 04117 11/09/2018 COMPREHEN METABOLIC PANEL CPT-4: 93849 11/09/2018 COMPLETE CBC W/AUTO DIFF WBC CPT-4: 19631 11/09/2018 LIPID PANEL CPT-4: 46275 11/09/2018 PROTHROMBIN TIME CPT-4: 95022 11/09/2018 THROMBOPLASTIN TIME PARTIAL CPT-4: 63250 11/09/2018 THER/PROPH/DIAG INJ SC/IM CPT-4: 35598 09/23/2018 KETOROLAC TROMETHAMINE INJ CPT-4: J1885 09/23/2018 ROUTINE VENIPUNCTURE CPT-4: 59390 2018 ASSAY THYROID STIM HORMONE CPT-4: 02887 2018 COMPREHEN METABOLIC PANEL CPT-4: 77061 2018 COMPLETE CBC W/AUTO DIFF WBC CPT-4: 22939 2018 LIPID PANEL CPT-4: 14569 2018 CEFTRIAXONE SODIUM INJECTION CPT-4: J0696 04/14/2018 THER/PROPH/DIAG INJ SC/IM CPT-4: 78184 04/14/2018 CEFTRIAXONE SODIUM INJECTION CPT-4: J0696 03/18/2018 THER/PROPH/DIAG INJ SC/IM CPT-4: 90298 03/18/2018 THER/PROPH/DIAG INJ SC/IM CPT-4: 26310 01/26/2018 KETOROLAC TROMETHAMINE INJ CPT-4: J1885 01/26/2018 CEFTRIAXONE SODIUM INJECTION CPT-4: J0696 12/22/2017 THER/PROPH/DIAG INJ SC/IM CPT-4: 74739 12/22/2017 ROUTINE VENIPUNCTURE CPT-4: 77314 11/14/2016 COMPLETE CBC W/AUTO DIFF WBC CPT-4: 95466 11/14/2016 PT/PTT CPT-4: 2680308 11/14/2016 Vital Signs Date Vital 05/17/2019 Blood [...] 1: 134/82 Code: 8480-6 BMI: 23.9 Code: 14665-7 Heart Rate 1: 100 bpm Height: 6'4" [...] 1: 138/70 Code: 8480-6 BMI: 22.6 Code: 32537-6 Heart Rate 1: 97 bpm Height: 6'4" [...] 1: 142/80 Code: 8480-6 BMI: 20.9 Code: 02105-5 Heart Rate 1: 108 bpm Height: 6'4" Respiratory Rate: 20 bpm SpO2: 97% Tempera ture: 36.6 (C) / 97.9 (F) Weight: 172 lbs 01/26/2018 Blood Pressure 1: 130/82 Code: 8480-6 Heart Rate 1: 98 bpm Respiratory Rate: 18 bpm SpO2: 99% Temperature: 35.7 (C) / 96.3 (F) We ight: 175 lbs 12/22/2017 Blood Pressure 1: 124/68 Code: 8480-6 BMI: 22.3 Code: 22890-8 Heart Rate 1: 100 bpm Height: 6'4" Respiratory Rate: 20 bpm SpO2: 98% Tempera ture: 36.7 (C) / 98.0 (F) Weight: 183 lbs 10/06/2017 Blood Pressure 1: 130/86 Code: 8480-6 BMI: 21.1 Code: 20620-3 Heart Rate 1: 92 bpm Height: 6'4" Respiratory Rate: 18 bpm SpO2: 98% Tempera ture: 36.9 (C) / 98.5 (F) Weight: 173 lbs 02/03/2017 Blood Pressure 1: 144/92 Code: 8480-6 BMI: 20.8 Code: 85641-1 Heart Rate 1: 88 bpm Height: 6'4" Respiratory Rate: 20 bpm SpO2: 97% Tempera ture: 36.7 (C) / 98.1 (F) Weight: 171 lbs 11/25/2016 Blood Pressure 1: 126/84 Code: 8480-6 Heart Rate 1: 76 bpm Respiratory Rate: 20 bpm SpO2: 96% Temperature: 36.9 (C) / 98.4 (F) We ight: 170 lbs 11/14/2016 Blood Pressure 1: 126/82 Code: 8480-6 BMI: 20.7 Code: 23703-8 Heart Rate 1: 86 bpm Height: 6'4" Respiratory Rate: 18 bpm SpO2: 96% Tempera ture: 35.8 (C) / 96.5 (F) Weight: 170 lbs 04/02/2016 Blood Pressure 1: 124/78 Code: 8480-6 Heart Rate 1: 88 bpm Respiratory Rate: 24 bpm SpO2: 97% Temperature: 36.1 (C) / 97.0 (F) We ight: 161 lbs 11/29/2015 Blood Pressure 1: 124/68 Code: 8480-6 BMI: 19.2 Code: 56952-2 Heart Rate 1: 94 bpm Height: 6'4" Respiratory Rate: 18 bpm SpO2: 97% Tempera ture: 36.1 (C) / 97.0 (F) Weight: 158 lbs 06/27/2015 Blood Pressure 1: 128/78 Code: 8480-6 BMI: 18.7 Code: 39269-0 Heart Rate 1: 72 bpm Height: 6'4" Respiratory Rate: 22 bpm SpO2: 98% Tempera ture: 35.9 (C) / 96.6 (F) Weight: 154 lbs 05/24/2015 Blood Pressure 1: 112/78 Code: 8480-6 BMI: 19.7 Code: 95999-5 Heart Rate 1: 78 bpm Height: 6'4" [...] care Encounters Encounter Performer Location Codes Date ([id number]) OFFICE/OUTPATIENT VISIT EST Diagnosis: 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, implant, or graft[ICD10: T85.818A] Diagnosis: DM w/o complication type II, uncontrolled[ICD10: E11.65] Janneth WARD [employer] CPT-4: 61420 05/17/2019 ([id number]) OFFICE/OUTPATIENT VISIT EST Diagnosis: Acute dermatitis[ICD10: L30.9] Diagnosis: DM w/o complication type II, uncontrolled[ICD10: E11.65] Diagnosis: Right leg DVT[ICD10: I82.401] Janneth WARD [employer] CPT-4: 60594 05/02/2019 ([id number]) OFFICE/OUTPATIENT VISIT EST Diagnosis: DM w/o complication type II, uncontrolled[ICD10: E11.65] Diagnosis: Allergic dermatitis[ICD10: L23.9] Diagnosis: Right leg DVT[ICD10: I82.401] Diagnosis: Paroxysmal atrial fibrillation[ICD10: I48.0] Diagnosis: Right calf pain[ICD10: M79.661] Janneth SHRESTHA DO [facility] CPT-4: 69064 04/25/2019 ([id number]) OFFICE/OUTPATIENT VISIT EST Diagnosis: DM w/o complication type II, uncontrolled[ICD10: E11.65] Diagnosis: 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, implant, or graft[ICD10: T85.818A] Diagnosis: Essential hypertension[ICD10: I10] Janneth SHRESTHA DO [employer] CPT-4: 99154 04/11/2019 ([id number]) OFFICE/OUTPATIENT VISIT EST Diagnosis: Sinus tachycardia[ICD10: R00.0] Diagnosis: Folliculitis[ICD10: L73.9] Janneth HARDY [facility] CPT-4: 89963 03/01/2019 ([id number]) OFFICE/OUTPATIENT VISIT EST Diagnosis: Cellulitis of left lower limb[ICD10: L03.116] Diagnosis: Tendinitis of left peroneus longus tendon[ICD10: M76.72] Janneth SHRESTHA Ziegler CPT-4: 33504 11/18/2018 ([id number]) OFFICE/OUTPATIENT VISIT EST Diagnosis: Cellulitis of left foot[ICD10: L03.116] Diagnosis: Spontaneous ecchymoses[ICD10: R23.3] Diagnosis: Venous insufficiency (chronic) (peripheral)[ICD10: I87.2] Diagnosis: Mixed hyperlipidemia[ICD10: E78.2] Vania SHRESTHA Ziegler CPT-4: 22354 11/09/2018 ([id number]) OFFICE/OUTPATIENT VISIT EST Diagnosis: Venous insufficiency (chronic) (peripheral)[ICD10: I87.2] Diagnosis: Cellulitis of left lower limb[ICD10: L03.116] Diagnosis: Pain in right foot[ICD10: M79.671] Vania SHRESTHA Ziegler CPT-4: 55094 10/13/2018 ([id number]) OFFICE/OUTPATIENT VISIT EST Diagnosis: Low back pain[ICD10: M54.5] Vania DEY [facility] CPT-4: 49601 09/23/2018 ([id number]) OFFICE/OUTPATIENT VISIT EST Diagnosis: Gastro-esophageal reflux disease without esophagitis[ICD10: K21.9] Diagnosis: Dysphagia, pharyngoesophageal phase[ICD10: R13.14] [facility] CPT-[facility]: 46361 09/06/2018 ([id number]) OFFICE/OUTPATIENT VISIT EST Diagnosis: Tinea corporis[ICD10: B35.4] Vania [facility] CPT-4: 48299 07/15/2018 ([id number]) OFFICE/OUTPATIENT VISIT EST Diagnosis: Cellulitis of left toe[ICD10: L03.032] Diagnosis: Mixed hyperlipidemia[ICD10: E78.2] Mandy Hollins REGINE RAY [facility] CPT-4: 78073 2018 OFFICE/OUTPATIENT VISIT EST Diagnosis: Cellulitis of left toe[ICD10: L03.032] Diagnosis: Unspecified disturbances of skin sensation[ICD10: R20.9] Mandy MERINOLINE Liza [facility] CPT-4: 97308 04/14/2018 ([id number]) OFFICE/OUTPATIENT VISIT EST Diagnosis: Cellulitis of left toe[ICD10: L03.032] Diagnosis: Insomnia, unspecified[ICD10: G47.00] Vania [facility] CPT-4: 37573 03/18/2018 ([id number]) OFFICE/OUTPATIENT VISIT EST Diagnosis: Other postprocedural complications and disorders of the circulatory system, not elsewhere classified[ICD10: I97.89] Diagnosis: Rash and other nonspecific skin eruption[ICD10: R21] Diagnosis: Pain in right leg[ICD10: M79.604] Vania Diaz S. [facility] CPT-4: 54835 01/26/2018 ([id number]) OFFICE/OUTPATIENT VISIT EST Diagnosis: Other postprocedural complications and disorders of the circulatory system, not elsewhere classified[ICD10: I97.89] Diagnosis: Cellulitis of right lower limb[ICD10: L03.115] Vania SHRESTHA [employer] [facility] CPT-4: 23316 12/22/2017 ([id number]) OFFICE/OUTPATIENT VISIT EST Diagnosis: Acute sinusitis, unspecified[ICD10: J01.90] Diagnosis: Unspecified disturbances of skin sensation[ICD10: R20.9] Vania SHRESTHA DO [facility] CPT-4: 17361 10/06/2017 ([id number]) OFFICE/OUTPATIENT VISIT EST Diagnosis: Primary insomnia[ICD10: F51.01] Diagnosis: Pain in left shoulder[ICD10: M25.512] Diagnosis: Poisoning by other parasympatholytics [anticholinergics and antimuscarinics] and spasmolytics, accidental (unintentional), sequela[ICD10: T44.3X1S] Janneth SHRESTHA [employer] [facility] CPT-4: 73488 02/03/2017 OFFICE/OUTPATIENT VISIT EST Diagnosis: Insomnia, unspecified[ICD10: G47.00] Diagnosis: Constipation, unspecified[ICD10: K59.00] Diagnosis: Spontaneous ecchymoses[ICD10: R23.3] Diagnosis: Pain in left foot[ICD10: M79.672] Vania SHRESTHA [employer] [facility] CPT-4: 75662 11/25/2016 OFFICE/OUTPATIENT VISIT EST Diagnosis: Insomnia, unspecified[ICD10: G47.00] Diagnosis: Constipation, unspecified[ICD10: K59.00] Diagnosis: Spontaneous ecchymoses[ICD10: R23.3] Diagnosis: Other specified local infections of the skin and subcutaneous tissue[ICD10: L08.89] Vania SHRESTHA [employer] [facility] CPT-4: 99 213 11/14/2016 ([id number]) OFFICE/OUTPATIENT VISIT EST Diagnosis: Acute upper respiratory infection, unspecified[ICD10: J06.9] Ester Grande JANNETH SHRESTHA [employer] [facility] CPT-4: 94777 04/02/2016 ([id number]) OFFICE/OUTPATIENT VISIT EST Diagnosis: Acute upper respiratory infection, unspecified[ICD10: J06.9] Ester SHRESTHA DO [facility] CPT-4: 52731 11/29/2015 ([id number]) OFFICE/OUTPATIENT VISIT EST Diagnosis: Pain in thoracic spine[ICD10: M54.6] Diagnosis: Paresthesia of skin[ICD10: R20.2] Diagnosis: Dysphagia, unspecified[ICD10: R13.10] Ester SHRESTHA DO [facility] CPT-4: 17912 06/27/2015 ([id number]) OFFICE/OUTPATIENT VISIT NEW Diagnosis: Pain in left leg[ICD10: M79.605] Diagnosis: Male erectile dysfunction, unspecified[ICD10: N52.9] Diagnosis: Dysphagia, unspecified[ICD10: R13.10] Ester SHRESTHA DO [facility] CPT-4: 10516 05/24/2015 Plan of Care Planned Activity Notes [...] : T85.818A 05/17/2019 Appointment: Janneth Shrestha WPtel: [facility] FOLLOW UP 05/17/2019 Patient Education: Metformin Patient [...] : 250.02 ICD-10 : E11.65 05/02/2019 Appointment: Jannteh Shrestha WPtel: [phone] [facility] [place] FOLLOW UP 05/02/2019 Patient Education: metoprolol succinate- [employer] Co upon [id number] https://www.Profyle/Amaru/resources/getResource/61/53247gi2-t8p6-620i-x6 Completed 05/02/2019 Visit Diagnosis Plan: DM w/o complication type II, unc ontrolled Discussion: Improving with increased dose of metformin ICD-9 : 250.02 ICD-10 : E11.65 04/25/2019 Visit Diagnosis Plan: Right leg DVT Discussion: S/P clarissa verduzco Sees Dr. Cortez tomorrow ICD-9 : 453.40 ICD-10 : I82.401 04/25/2019 Visit Diagnosis Plan: Paroxysmal atrial fibrillation D iscussion: Now in NSR ICD-9 : 427.31 ICD-10 : I48.0 04/25/2019 Visit Diagnosis Plan: Allergic dermatitis Discussion: Prednisone--warned of elevated BS ICD-9 : 692.9 ICD-10 : L23.9 04/25/2019 Visit Diagnosis Plan: Right calf pain Discussion: Will likely need PT but sees surgery tomorrow ICD-9 : 729.5 ICD-10 : M79.661 04/25/2019 Appointment: Janneth Shrestha WPtel: [phone] [facility] [place] FOLLOW UP 04/25/2019 Patient Education: Metformin Patient Savings Message Alert Completed 04/25/2019 Patient Education: prednisone- [employer] Coupon [id number] https://www.Profyle/Amaru/resources/getResource/61/0df71gi9-l2ti-6e92-rq Completed 04/25/2019 Visit Diagnosis Plan: DM w/o [...] : T85.818A 04/11/2019 Appointment: Janneth Shrestha WPtel: [phone] [facility] ACUTE ILLNESS 04/11/2019 Patient Education: metoprolol succinate- [employer] Co upon [id number] https://www.Profyle/Amaru/resources/getResource/61/nx665742-73uv-8a49-37 Completed 04/11/2019 Patient Education: Metformin Patient Savings Message Alert Completed 04/11/2019 Patient Education: cephalexin- [employer] Coupon [id number] https://www.Profyle/Amaru/resources/getResource/61/1chk5473-2k1r-6379-lt Completed 04/11/2019 Visit Diagnosis Plan: Folliculitis Discussion: Bactrim and topical bactroban ICD-9 : 704.8 ICD-10 : L73.9 03/01/2019 Visit Diagnosis Plan: Sinus tachycardia Discussion: St art low dose metoprolol ER 25mg daily Monitor pulse Sees Cardiology next month ICD-9 : 427.89 ICD-10 : R00.0 03/01/2019 Appointment: Janneth Shrestha WPtel: [phone] [facility] FOLLOW UP 03/01/2019 Patient Education: mupirocin- [employer] Coupon [id number] https://www.Profyle/Amaru/resources/getResource/61/pb697pg7-42ra-428p-bx Completed 03/01/2019 Appointment: Janneth Shrestha WPtel: [address] [place], [place] [id number] [place] CANCELED 12/20/2018 Visit Diagnosis Plan: Tendinitis of left peroneus long us tendon Discussion: Referral to ortho to assess MRI and possible tear in tendon--possibly chronic ICD-9 : 727.06 ICD-10 : M76.72 11/18/2018 Visit Diagnosis Plan: Cellulitis of left lower limb Di scussion: Finish clindamycin and then start doxycycline Continue probiotic Patient will fwup in 3 weeks as he will be leaving for work tomorrow and not be back for 3 weeks ICD-9 : 682.6 ICD-10 : L03.116 11/18/2018 Appointment: Vania García [address] [place] [address] [place] CANCELED 11/18/2018 Appointment: Janneth Shrestha WPtel: [address] [place], [place] [address] [place] FOLLOW UP 11/18/2018 Patient Education: doxycycline monohydrate- [employer] Coupon [id number] https://www.Profyle/samplemd/resources/getResource/61/fmr66384-v2b0-11k6-5k Completed 11/18/2018 Patient Education: prednisone- [employer] Coupon [id number] https://www.Profyle/samplemd/resources/getResource/61/77lq1n6k-4su4-7022-zn Completed 11/18/2018 Care Plan: Referral Order SNOMED-CT : 30 [id number] Pending 11/18/2018 Visit Diagnosis Plan: Venous insufficiency (chronic) ( peripheral) Discussion: follow up with next week ICD-9 : 459.81 ICD-10 : I87.2 11/09/2018 Visit Diagnosis Plan: Spontaneous ecchymoses Discussio n: cbc, cmp, pt/inr, ptt ordered to rule out acute issues. ICD-9 : 782.7 ICD-10 : R23.3 11/09/2018 Visit Diagnosis Plan: Mixed hyperlipidemia Discussion: [...] evaluated in an ED whether it be [place] or wherever he's traveling. discussed the risk of bone involvement and the importance of having it evaluated if worsens. follow up in office when he returns though if no worsening symptoms. ICD-9 : 682.7 ICD-10 : L03.116 11/09/2018 Appointment: Vania García [address] [place], [place] [address]a [id number] 11/09/2018 Patient Education: clindamycin HCl- [employer] Coupon [id number] https://www.Amaru.Pagevamp/samplemd/resources/getResource/61/08xq28g2-dq03-0md9-5s Completed 11/09/2018 Appointment: Janneth Shrestha WPtel: [phone] [facility] [place] CANCELED 10/19/2018 Visit Diagnosis Plan: Cellulitis of left lower limb Di scussion: keflex bid for 10 days to cover infection. will refer to outpatient wound care due to patient's chronic insufficiency and symptoms. ICD-9 : 682.6 ICD-10 : L03.116 10/13/2018 Visit Diagnosis Plan: Pain in right foot Discussion: u ltrasound ordered to rule out embolus due to patient's hx. instructed patient that he will most likely need to go back to see dr. cortez. ICD-9 : 729.5 ICD-10 : M79.671 10/13/2018 Appointment: [facility]ia García [facility] Patient cant pay copay till when he [...] ICD-10 : M54.5 09/23/2018 Appointment: Vania García [address] [place] [address] ACUTE ILLNESS 09/23/2018 Patient Education: Medrol (Brenden)- [employer] Coupon [phone] https://www.Profyle/Amaru/resources/getResource/61/xpmk501x-8730-79b5-40 Completed 09/23/2018 Visit Diagnosis Plan: Dysphagia, pharyngoesophageal ph ase Discussion: Referral for EGD ICD-9 : 787.24 ICD-10 : R13.14 09/06/2018 Visit Diagnosis Plan: Gastro-esophageal reflux disease without esophagitis Discussion: Start omeprazole ICD-9 : 530.81 ICD-10 : K21.9 09/06/2018 Appointment: Janneth Shrestha WPtel: [address] [place] [address] ACUTE ILLNESS 09/06/2018 Patient Education: omeprazole- [employer] Coupon [id number] https://www.Profyle/Amaru/resources/getResource/61/497zs198-58k1-999b-74 Completed 09/06/2018 Care Plan: Referral Order SNOMED-CT : 30 [id number] Pending 09/06/2018 Visit Diagnosis Plan: Tinea corporis Discussion: nysta tin to be used bid until rash gone and then an additional 2 days. diflucan every 3 days for 3 doses. keep area clean and dry with no moisturizers. call office if no improvement in 2 weeks or if worsening. ICD-9 : 110.5 ICD-10 : B35.4 07/15/2018 Appointment: Vania García [address] [place] [address] ACUTE ILLNESS 07/15/2018 Patient Education: nystatin- [employer] Coupon [id number] https://www.Amaru.Pagevamp/samplemd/resources/getResource/61/06wgi511-u0sp-24hb-6z Completed 07/15/2018 Patient Education: Plavix- [employer] Coupon [id number] https://www.Profyle/sampleAudionamix/resources/getResource/61/87vt0o49-u20w-51us-16 fa-z404s9268504.pdf Completed 07/15/2018 Patient Education: cyclobenzaprine- [employer] Coupon [id number] https://www.Profyle/sampleAudionamix/resources/getResource/61/22584u9t-5q68-24l8-na Completed 07/15/2018 Visit Diagnosis Plan: Cellulitis of [...] ICD-10 : L03.032 2018 Appointment: Mandy Hollins [facility] [address] FOLLOW UP 2018 Patient Education: mupirocin- [employer] Coupon [id number] https://www.Profyle/samplemd/resources/getResource/61/a3to23w3-1786-3962-3d Completed 2018 Visit Diagnosis Plan: Cellulitis of [...] : R20.9 04/14/2018 Appointment: Mandy Hollins 1010 [facility] FOLLOW UP 04/14/2018 Visit Diagnosis Plan: Insomnia, unspecified Discussion : rx of flexeril prescribed for patient. instructed to only take as directed. he verbalized understanding. ICD-9 : 780.52 ICD-10 : G47.00 03/18/2018 Visit Diagnosis Plan: Cellulitis of left toe [...] ICD-9 : 681.10 ICD-10 : L03.032 03/18/2018 Appointment: Vania García 504 [facility] ACUTE ILLNESS 03/18/2018 Patient Education: cyclobenzaprine- [employer] Coupon [id number] https://www.Amaru.com/samplemd/resources/getResource/61/2631i307-1wb4-381j-z4 Completed 03/18/2018 Visit Diagnosis Plan: Rash and other nonspecific skin eruption Discussion: triamcinolone ordered to be used as directed. ICD-9 : 782.1 ICD-10 : R21 01/26/2018 Visit Diagnosis Plan: Other postprocedur al complications and disorders of the circulatory system, not elsewhere classified Discussion: discussed with dr. shrestha and patient was instructed to contact the [place] de[facility]. due to uncontrolled pain, continued erythema, patient needs to be re-evaluated by the surgeon. 60 mg toradol given to patient. patient verbalized understanding and voiced he will contact them today for an appointment. ICD-9 : 997.1 ICD-10 : I97.89 01/26/2018 Appointment: Vania García [address] [place], [place] [id number] Hospital Follow Up 01/26/2018 Appointment: Janneth Shrestha WPtel: [phone] [id number] [place] 2nd LM NO SHOW 01/06/2018 Visit Diagnosis [...] ICD-10 : I97.89 12/22/2017 Appointment: Vania García [address] [place], [place] [address] ACUTE ILLNESS 12/22/2017 Visit Diagnosis Plan: Acute sinusitis, unspecified Dis cussion: medrol dose pack prescribed for patient. instructed to take as directed. call later this week if no improvement or worsening symptoms. ICD-9 : 461.9 ICD-10 : J01.90 10/06/2017 Visit Diagnosis Plan: Unspecified disturbances of skin [...] ICD-9 : 782.0 ICD-10 : R20.9 10/06/2017 Appointment: Vania García [address] [place], [place] [id number] ACUTE ILLNESS 10/06/2017 Patient Education: Patient Medication Summary Completed 10/06/2017 Appointment: Vania García [address] [place], [place] [id number] ER Follow UP 08/17/2017 Appointment: Vania García 504 [facility] CANCELED 07/03/2017 Appointment: Janneth Shrestha WPtel: [phone] [facility] [place] canceled at 8:05 this morning. CANCELED 0 03/11/2017 Visit Diagnosis Plan: Poisoning by other parasympatholytics [anticholinergics and antimuscarinics] and spasmolytics, accidental (unintentional), sequela Discussion: Psych determined not suicidal or intentional so no fwup scheduled ICD-9 : 909.0 ICD-10 : T44.3X1S 02/03/2017 Visit Diagnosis Plan: Primary insomnia Discussion: No lunesta or sleeping pills due to recent drug overdose Bedtime routine and may increase melatonin to 10mg q HS ICD-9 : 780.52 ICD-10 : F51.01 02/03/2017 Visit Diagnosis Plan: Pain in left shoulder Discussion : Ice, topical muscle rub, ROM If persists will need ortho eval ICD-9 : 719.41 ICD-10 : M25.512 02/03/2017 Appointment: Janneth Shrestha WPtel: [phone] [facility] [facility] Follow Up 02/03/2017 Patient Education: Patient Medication Summary Completed 02/03/2017 Visit Diagnosis Plan: Insomnia, unspecified Recommenda tions: resolved with lunesta. continue taking as prescribed. ICD-9 : 780.52 ICD-10 : G47.00 11/25/2016 Visit Diagnosis Plan: Constipation, unspecified Discus jaxson: miralax daily was ineffective as well as increasing fiber. samples of trulance were given to pt. instructed to call clinic in 1-2 weeks to inform us of efficacy of medication ICD-9 : 564.00 ICD-10 : K59.00 11/25/2016 Visit Diagnosis Plan: Pain in left foot Discussion: re ferral sent for dr rose ladle mechanic. ICD-9 : 729.5 ICD-10 : M79.672 11/25/2016 Visit Diagnosis Plan: Spontaneous ecchymoses Discussio n: labs wnl. instructed patient on side effects of plavix and aspirin. will continue to monitor. educated on being careful with movements to prevent injuries. ICD-9 : 782.7 ICD-10 : R23.3 11/25/2016 App[facility]ment: [facility] [facility] 11/25/2016 Patient Education: Patient Medication Summary Completed 11/25/2016 Visit Diagnosis Plan: Insomnia, unspecified Discussion : lunesta 3 mg q hs ordered to be taken daily to assist with sleep disturbance Follow Up: 2 weeks ICD-9 : 780.52 ICD-10 : G47.00 11/14/2016 Visit Diagnosis Plan: Constipation, unspecified Recomm endations: Miralax samples given for 2 weeks. instructed on purchasing generic miralax to take daily if effective and take with large amount of water. Diet: Fluids Follow Up: 2 weeks ICD-9 : 564.00 ICD-10 : K59.00 11/14/2016 Visit Diagnosis Plan: Other specified lo [...] ICD-9 : 782.7 ICD-10 : R23.3 11/14/2016 Appointment: Vania García 504 [facility] ACUTE ILLNESS 11/14/2016 Patient Education: Patient Medication Summary Completed 11/14/2016 Visit Diagnosis Plan: Acute upper respiratory infectio n, unspecified Discussion: Rxs as above Continue OTC and supportive meds Encouraged smoking cessation Follow up PRN ICD-9 : 465.9 ICD-10 : J06.9 04/02/2016 Appointment: Ester Grande 2305 [facility] ACUTE ILLNESS 04/02/2016 Patient Education: Patient Medication Summary Completed 04/02/2016 Visit Plan: Rxs as above Supportive care reviewed Follow up PRN 11/29/2015 Appointment: Ester Gradne 2305 [facility] 11/27 confirmed~sl ACUTE ILLNESS 11/29/2015 Patient Education: [...] for pain 06/27/2015 Appointment: Ester Grande 2305 [facility] 06/25 ~ 06/26 phone not on~ FOLLOW UP 06/27/2015 Patient Education: Patient Medication Summary Completed 06/27/2015 Care Plan: X-RAY EXAM RIBS UNI 2 VIEWS L OINC : 54720-0 Pending 06/27/2015 Referral: [facility]éctor Woodard [phone] 05/29 Scheduled with sena ~ Appointment Re quested 06/26/2015 Referral: Cameron Khanna WPtel: [phone] [facility] Referral Initiated 06/11/2015 Referral: Marco Antonio Green WPtel: [phone] [id number] 05/30/15 Needs to be there at pre op time per ~ Initiated 06/04/2015 Visit Plan: Will get all necessary refer rals set up - CTS, Uro and G/S Swallow study and routine labs ordered Will further investigate left leg pain with EMG if not cardio related 05/24/2015 Appointment: Ester Grande 2305 [facility] NEW PATIENT 05/24/2015 Patient Education: Patient Medication Summary Completed 05/24/2015 Care Plan: Referral Order SNOMED-CT : 30 [id number] Pending 05/24/2015 Care Plan: Referral Order SNOMED-CT : 30 [id number] Pending 05/24/2015 Care Plan: Referral Order SNOMED-CT : 30 [id number] Pending 05/24/2015 Referral: Sudheer Gann WPtel: [phone] [place] [address] [place] Referral Appointment Requested Referral: Alfonzo Andujar WPtel: [address] [place] [address] [place] Referral Initiated Referral: [facility] [address] [id number] [place] Referral Completed Referral: Cameron Khanna WPtel: [phone] [place] [address] [place] Referral Appointment Requested Referral: Brianna Rose WPtel: [address] [place] [address] [place] Referral Initiated Referral: Héctor Woodard WPtel: [address] [place] [address] [place] 05/24/15 [facility] office suggested he see another card. ~sl Initiated Referral: Alfonzo Andujar WPtel: [address] [place] [address] [place] Referral Appointment Requested Referral: Marco Antonio Green WPtel: [phone] [place] [address] [place] Referral Appointment Requested Instructions Comment . [...]
--- OUTSIDE RECORDS SUMMARY | 2019-08-06 10:24 | XMS REPORT | CCD ---
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 Role Phone Janneth Shrestha D.O., PP Unavailable CCM Unavailable Summary Purpose Interface Exchange Insurance Providers Payer name Policy type / Coverage type Covered democrat ID Effective Begin Date Effective End Date Blue Cross Blue Shield Blue Cross/Blue Shield [id number] Unknown Family History Family History data not found Social History Social History Element Codes Description Effective Dates Marital status Unknown 05/24/2015 Number of children Unknown 2 05/24/2015 Employment Unknown Currently employed 05/24/[address]: [id number] 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 [...] 50 mg tablet,extended release 24 hr RxNorm: 855075 1 Tablet(s) Oral QD 08/01/2019 10/30/2019 Active metformin ER 1,000 mg tablet,extended release 24hr RxNorm: 1 501690 1 Tablet(s) Oral two times a day replaces 500mg dose 05/17/2019 11/13/2019 Active [AttnRPh: Saving apply/adjudicate RxGRP:[id number] RxBIN:[id number] RxPCN: ID#:[id number]] ReliOn Prime Test Strips RxNorm: 1 Unit [...] 05/01/2019 Inactive Xarelto 20 mg tablet RxNorm: 9387462 1 Tablet(s) Oral QD 04/25/2019 No Stop Date Active Plavix 75 mg tablet RxNorm: 781306 TAKE ONE TABLET BY MOUTH DAILY 0 04/25/2019 04/26/2019 Inactive amiodarone 200 mg tablet RxNorm: 786130 1 Tablet(s) Oral QD 020 No Stop Date Active Plavix 75 mg tablet RxNorm: 874508 TAKE ONE TABLET BY MOUTH DAILY 0 04/25/2019 04/24/2019 Inactive metformin ER 500 mg 24 hr tablet,extended release RxNorm: 18 50292 1 Tablet(s) Oral two times a day 04/25/2019 05/16/2019 Inactive prednisone 20 mg tablet RxNorm: 142795 1 Tablet(s) Oral two jn es a day 04/25/2019 05/01/2019 Inactive aspirin 81 mg tablet,delayed release RxNorm: 278049 1 Tablet(s) Oral QD 04/11/2019 No Stop Date Active pantoprazole 40 mg tablet,delayed release RxNorm: 218903 1 Tabl et(s) Oral QAM 04/11/2019 No Stop Date Active Vitamin C 1,000 mg tablet RxNorm: 740490 1 Tablet(s) Oral QD 2019 No Stop Date Active Xarelto 15 mg tablet RxNorm: 4720115 1 Tablet(s) Oral QD 04/11/2019 0 04/24/2019 Inactive metformin ER 500 mg 24 hr tablet,extended release RxNorm: 18 37323 1 Tablet(s) Oral QD 04/11/2019 04/24/2019 Inactive cephalexin 500 mg capsule RxNorm: 410649 1 Capsule(s) Oral thre e times a day 04/11/2019 04/18/2019 Inactive metoprolol succinate ER 50 mg tablet,extended release 24 hr RxNorm: 340218 1 Tablet(s) Oral QD replaces 25mg dose 04/11/2019 05/01/2019 Inactive cyclobenzaprine 10 mg tablet RxNorm: 154234 TAKE ONE TA BLET BY MOUTH EVERY NIGHT AT BEDTIME NEEDED 03/11/2019 No Stop Date Active mupirocin 2 % topical ointment RxNorm: 166481 Applicati on Topical two times a day 03/01/2019 04/10/2019 Inactive metoprolol succinate ER 25 mg tablet,extended release 24 hr RxNorm: 725591 1 Tablet(s) Oral QD 03/01/2019 04/24/2019 Inactive Bactrim DS 800 mg-160 mg tablet RxNorm: 816867 1 Tablet(s) Oral two times a day 03/01/2019 03/11/2019 Inactive cyclobenzaprine 10 mg tablet RxNorm: 353514 TAKE ONE TA BLET BY MOUTH EVERY NIGHT AT BEDTIME NEEDED 01/10/2019 03/10/2019 Inactive Plavix 75 mg tablet RxNorm: 916955 TAKE ONE TABLET BY MOUTH DAILY 1 03/12/2018 04/24/2019 Inactive omeprazole 40 mg capsule,delayed release RxNorm: 935839 TAKE ONE CAPSULE BY MOUTH EVERY NIGHT AT BEDTIME FOR REFLUX 01/10/2019 05/16/2019 Inactive tramadol 50 mg tablet RxNorm: 443406 1 Tablet(s) Oral f our times a day as needed 01/03/2019 01/03/2019 Inactive doxycycline monohydrate 100 mg capsule RxNorm: 6274643 1 Capsule(s) Oral two times a day 11/22/2018 12/13/2018 Inactive prednisone 20 mg tablet RxNorm: 471115 1 Tablet(s) Oral two jn es a day 11/22/2018 11/29/2018 Inactive Levaquin 750 mg tablet RxNorm: 078042 Tablet(s) Oral 11/18/201802/28 Inactive prednisone 20 mg tablet RxNorm: 430222 1 Tablet(s) Oral two jn es a day 11/18/2018 11/21/2018 Inactive tramadol 50 mg tablet RxNorm: 630557 Tablet(s) Oral 11/18/20182018 Inactive doxycycline monohydrate 100 mg capsule RxNorm: 7189976 1 Capsule(s) Oral two times a day 11/18/2018 11/21/2018 Inactive Plavix 75 mg tablet RxNorm: 509155 TAKE ONE TABLET BY MOUTH DAILY 0 11/10/2018 01/08/2019 Inactive clindamycin HCl 300 mg capsule RxNorm: 488180 1 Capsule (s) Oral three times a day 11/09/2018 11/19/2018 Inactive Keflex 500 mg capsule RxNorm: 590731 1 Capsule(s) PO BID 10/13/2018 0 10/22/2018 Inactive Medrol (Brenden) 4 mg tablets in a dose pack RxNorm: 549988 Tablet(s) take as directed PO 09/23/2018 10/12/2018 Inactive omeprazole 40 mg capsule,delayed release RxNorm: 909851 1 Capsule(s) PO QHS for reflux 09/06/2018 11/04/2018 Inactive cyclobenzaprine 10 mg tablet RxNorm: 697615 1 Tablet(s) PO QHS as needed 07/15/2018 10/12/2018 Inactive Diflucan 150 mg tablet RxNorm: 708384 1 Tablet(s) PO Q72H 07/15/2018 09/05/2018 Inactive nystatin 100,000 unit/gram topical cream RxNorm: 761766 1 Gram( s) TOP BID 07/15/2018 09/05/2018 Inactive Plavix 75 mg tablet RxNorm: 717262 1 Tablet(s) PO QD 07/15/201810/12 Inactive cyclobenzaprine 10 mg tablet RxNorm: 423085 1 Tablet(s) PO QHS as needed 06/10/2018 06/09/2018 Inactive cyclobenzaprine 10 mg tablet RxNorm: 888635 TAKE ONE TA BLET BY MOUTH EVERY NIGHT AT BEDTIME NEEDED 05/10/2018 06/10/2018 Inactive mupirocin 2 % topical ointment RxNorm: 328502 1 Application TOP BID 2018 05/25/2018 Inactive 22 gram cyclobenzaprine 10 mg tablet RxNorm: 111716 1 Tablet(s) PO QHS as needed 04/14/2018 06/09/2018 Inactive doxycycline hyclate 100 mg tablet RxNorm: 1742424 1 Tablet(s) PO BI D 04/14/2018 04/23/2018 Inactive cyclobenzaprine 10 mg tablet RxNorm: 376468 1 Tablet(s) PO QHS as needed 04/07/2018 04/13/2018 Inactive Bactrim DS 800 mg-160 mg tablet RxNorm: 620321 1 Tablet(s) PO BID 0 03/18/2018 03/27/2018 Inactive cyclobenzaprine 10 mg tablet RxNorm: 359190 1 Tablet(s) PO QHS as needed 03/18/2018 04/06/2018 Inactive triamcinolone acetonide 0.1 % topical cream RxNorm: 2282295 APPLY TO AFFECTED AREA(S) TWO TIMES A DAY 02/03/2018 02/12/2018 Inactive triamcinolone acetonide 0.1 % topical cream RxNorm: 8746168 1 Application TOP BID 01/26/2018 02/02/2018 Inactive Medrol (Brenden) 4 mg tablets in a dose pack RxNorm: 268884 TAKE BY MOUTH INSTRUCTED - PER PACKAGE INSTRUCTIONS 12/11/2017 12/16/2017 Inactive Medrol (Brenden) 4 mg tablets in a dose pack RxNorm: 239923 Tablet(s) P O 10/06/2017 12/10/2017 Inactive Lunesta 3 mg tablet RxNorm: 772844 1 Tablet(s) PO QHS 11/25/201608/2016 Inactive Lunesta 3 mg tablet RxNorm: 576129 1 Tablet(s) PO QHS 11/14/201610/2016 Inactive Bactrim DS 800 mg-160 mg tablet RxNorm: 855537 1 Tablet(s) PO BID 0 11/14/2016 11/23/2016 Inactive Epi E-Z Pen 0.3 mg/0.3 mL injection, auto-injector RxNorm: 1 340376 Milliliter(s) IM Use as Directed 06/25/2016 09/05/2018 Inactive amoxicillin 875 mg tablet RxNorm: 776441 1 Tablet(s) PO BID 017 04/11/2016 Inactive prednisone 20 mg tablet RxNorm: 035140 1 Tablet(s) PO BID 04/02/2016 04/06/2016 Inactive azithromycin 250 mg tablet RxNorm: 086457 2 Tablet(s) P O on day one then 1 tab on days 2-5 11/29/2015 11/28/2015 Inactive Medrol (Brenden) 4 mg tablets in a dose pack RxNorm: 219124 Take as directed 11/29/2015 11/13/2016 Inactive meloxicam 15 mg tablet RxNorm: 233942 1 Tablet(s) PO QD 07/02/2015 Inactive Chantix Starting Month Box 0.5 mg (11)-1 mg (42) table ts in dose pack RxNorm: 275636 Tablet(s) PO As Directed 06/20/2015 07/10/2015 Inactive omeprazole 40 mg capsule,delayed release RxNorm: 138856 1 Capsu le(s) PO QD 05/31/2015 11/13/2016 Inactive omeprazole 40 mg capsule,delayed release RxNorm: 225199 1 Capsu le(s) PO QD 05/31/2015 05/30/2015 Inactive Lactobacillus acidophilus-Bifidobacterium longum oral RxNorm: oral No Start Date Active Multivitamin And Mineral oral RxNorm: oral No Start Date Active Wellbutrin SR 150 mg tablet,sustained-release RxNorm: 659541 1 Tablet(s) PO BID No Start Date 11/13/2016 Inactive gabapentin 100 mg capsule RxNorm: 343120 1 Capsule(s) PO TID No Sta rt Date 03/17/2018 Inactive Chantix Starting Month Box 0.5 mg (11)-1 mg (42) table ts in dose pack RxNorm: 410752 Tablet(s) PO As Directed No Start Date 06/19/2015 Inactive Eliquis 5 mg tablet RxNorm: 9073927 1 Tablet(s) PO BID No Start Date 03/17/2018 Inactive aspirin 325 mg tablet RxNorm: 940036 1 Tablet(s) PO QD No Start Date 11/13/2016 Inactive clindamycin HCl 300 mg capsule RxNorm: 971378 2 Capsule(s) PO Q8H N o Start Date 03/17/2018 Inactive Fish Oil 1,000 mg (120 mg-180 mg) capsule RxNorm: 1 Caps ule(s) PO QD No Start Date 09/05/2018 Inactive aspirin 81 mg tablet RxNorm: 797180 1 Tablet(s) PO QD No Start Date 1 03/28/2017 Inactive Fish Oil 1,000 mg capsule RxNorm: 1 Capsule(s) PO QD No Start Date 11/13/2016 Inactive Baby Aspirin 81 mg chewable tablet RxNorm: 425588 1 Tablet(s) P O BID No Start Date 02/02/2017 Inactive Xarelto 10 mg tablet RxNorm: 2574884 1 Tablet(s) PO QD No Start Date 01/25/2018 Inactive tramadol 50 mg tablet RxNorm: 082768 1-2 Tablet(s) PO Q6H No Start Date 03/17/2018 Inactive meloxicam 15 mg tablet RxNorm: 841383 1 Tablet(s) PO QD No Start Da te 07/01/2015 Inactive Epi E-Z Pen 0.3 mg/0.3 mL injection, auto-injector RxNorm: 1 668821 Milliliter(s) IM Use as Directed No Start Date 06/24/2016 Inactive Plavix 75 mg tablet RxNorm: 753506 1 Tablet(s) PO QD No Start Date Inactive Medication Administered No Medication Administered data Immunizations No Immunization data Results Observation Observation Code Item Item Code Result Date S [facility] Location COMPREHENSIVE METABOLIC 86886 AST 25 U/L 2018 Unknown COMPREHENSIVE METABOLIC 29142 ALT 28 U/L 2018 Unknown COMPREHENSIVE METABOLIC 14120 BUN 13 mg/dL 2018 Unknown COMPREHENSIVE METABOLIC 84137 ALBUMIN 4.2 g/dL 2018 Unknown COMPREHENSIVE METABOLIC 69470 CHLORIDE 104 mmol/L 11/09 Unknown COMPREHENSIVE METABOLIC 91884 Bili Total 0.5 mg/dL 11/09 Unknown COMPREHENSIVE METABOLIC 64068 ALK PHOS 72 U/L 2018 Unknown COMPREHENSIVE METABOLIC 74458 SODIUM 139 mmol/L 11/09 Unknown COMPREHENSIVE METABOLIC 63476 CREATININE 0.98 mg/dL 10/18 Unknown COMPREHENSIVE METABOLIC 74126 CALCIUM 9.1 mg/dL 2018 Unknown COMPREHENSIVE METABOLIC 11537 POTASSIUM 3.7 mmol/L 11/09 Unknown COMPREHENSIVE METABOLIC 22800 Total Protein 7.2 g/dL Unknown COMPREHENSIVE METABOLIC 40738 Glucose 137 mg/dL 2018 Unknown COMPREHENSIVE METABOLIC 92020 Bicarbonate 24 mmol/L 10/18 Unknown COMPREHENSIVE METABOLIC 86164 AGAP 11 mmol/L 2018 Unknown COMPLETE BLOOD COUNT [id number] WBC 4.6 10e9/L 11/10/19 19 Unknown COMPLETE BLOOD COUNT [id number] RBC 4.88 10e12/L 2018 Unknown COMPLETE BLOOD COUNT [id number] HEMOGLOBIN 14.7 g/dL 11/10/19 19 Unknown COMPLETE BLOOD COUNT [id number] HEMATOCRIT 43.7 % 11/10/19 19 Unknown COMPLETE BLOOD COUNT [id number] MCV 89.5 fL 9 Unknown COMPLETE BLOOD COUNT [id number] MCH 30.1 pg 9 Unknown COMPLETE BLOOD COUNT 1513663 MCHC 33.6 g/dL 9 Unknown COMPLETE BLOOD COUNT [id number] PLATELET COUNT 179 10e9/L Unknown COMPLETE BLOOD COUNT 1287431 Mean Plt Volume 11.6 fL Unknown COMPLETE BLOOD COUNT 2200896 Neut Auto 55.5 % 9 Unknown COMPLETE BLOOD COUNT [id number] Lymph Auto 28.7 % 11/10/19 19 Unknown COMPLETE BLOOD COUNT [id number] [place] Auto 7.9 % 9 Unknown COMPLETE BLOOD COUNT 3382294 RDW 13.2 % 9 Unknown COMPLETE BLOOD COUNT 2251634 Eos Auto 7.7 % 9 Unknown COMPLETE BLOOD COUNT [id number] Baso Auto 0.2 % 9 Unknown COMPLETE BLOOD COUNT [id number] Neutrophil Abs 2.55 10e9/L Unknown COMPLETE BLOOD COUNT [id number] Lymphocyte Abs 1.32 10e9/L Unknown COMPLETE BLOOD COUNT [id number] Monocyte Abs 0.36 10e9/L 10/18 Unknown COMPLETE BLOOD COUNT 1429623 Eosinophil Abs 0.35 10e9/L Unknown COMPLETE BLOOD COUNT [id number] RDW-SD 42.2 fL 9 Unknown COMPLETE BLOOD COUNT [id number] Basophil Abs 0.01 10e9/L 10/18 Unknown LIPID GROUP 15834 Cholesterol 205 mg/dL 11/09/2018 Unkno wn LIPID GROUP 50429 Triglyceride 268 mg/dL 11/09/2018 Unkn own LIPID GROUP 67978 HDL CHOLESTEROL 35 mg/dL 11/09/2018 U nknown LIPID GROUP 00509 Chol/HDL Ratio 5.86 ratio 11/09/2018 U nknown LIPID GROUP 88827 NON-HDL Chol 170 mg/dL 11/09/2018 Unkn own LIPID GROUP 86729 LDL Cholesterol 116 mg/dL 11/09/2018 U nknown PT [id number] PT 12.7 Seconds 11/09/2018 Unknow n PT 1346737 INR 0.9 11/09/2018 Unknown GFR CALC 8363064 GFR Non Afr Amr >60 mL/min 11/09/2018 Un known GFR CALC 6183901 GFR Afr Amr >60 mL/min 11/09/2018 Unknow n ACT PARTIAL THRMBOPLASTIN TIME 79679 PTT 34.0 Sec[place] nds 11/09/2018 Unknown LIPID GROUP 08751 Cholesterol 186 mg/dL 2018 Unkno wn LIPID GROUP 41917 Triglyceride 229 mg/dL 2018 Unkn own LIPID GROUP 53211 HDL CHOLESTEROL 36 mg/dL 2018 U nknown LIPID GROUP 86914 Chol/HDL Ratio 5.17 ratio 2018 U nknown LIPID GROUP 39765 NON-HDL Chol 150 mg/dL 2018 Unkn own LIPID GROUP 61280 LDL Cholesterol 104 mg/dL 2018 U nknown GFR CALC 8925056 GFR Non Afr Amr >60 mL/min 2018 Un known GFR CALC 1677974 GFR Afr Amr >60 mL/min 2018 Unknow n COMPREHENSIVE METABOLIC 91504 AST 23 U/L 2018 Unknown COMPREHENSIVE METABOLIC 52702 ALT 22 U/L 2018 Unknown COMPREHENSIVE METABOLIC 17200 BUN 15 mg/dL 2018 Unknown COMPREHENSIVE METABOLIC 76813 ALBUMIN 4.1 g/dL 2018 Unknown COMPREHENSIVE METABOLIC 50748 CHLORIDE 106 mmol/L 05/06 Unknown COMPREHENSIVE METABOLIC 54457 Bili Total 0.6 mg/dL 05/06 Unknown COMPREHENSIVE METABOLIC 18996 ALK PHOS 61 U/L 2018 Unknown COMPREHENSIVE METABOLIC 05487 SODIUM 141 mmol/L 05/06 Unknown COMPREHENSIVE METABOLIC 65533 CREATININE 0.91 mg/dL 04/17 Unknown COMPREHENSIVE METABOLIC 35949 CALCIUM 9.2 mg/dL 2018 Unknown COMPREHENSIVE METABOLIC 86087 POTASSIUM 3.8 mmol/L 05/06 Unknown COMPREHENSIVE METABOLIC 13783 Total Protein 7.0 g/dL Unknown COMPREHENSIVE METABOLIC 30206 Glucose 97 mg/dL 2018 Unknown COMPREHENSIVE METABOLIC 59542 Bicarbonate 28 mmol/L 04/17 Unknown COMPREHENSIVE METABOLIC 30351 AGAP 7 mmol/L 2018 Unknown THYROID STIMULATING HORMONE 58755 TSH 2.094 uIU/mL 2018 Unknown COMPLETE BLOOD COUNT 0832759 WBC 5.5 10e9/L 05/07/19 19 Unknown COMPLETE BLOOD COUNT [id number] RBC 4.61 10e12/L 2018 Unknown COMPLETE BLOOD COUNT [id number] HEMOGLOBIN 13.6 g/dL 05/07/19 19 Unknown COMPLETE BLOOD COUNT [id number] HEMATOCRIT 40.0 % 05/07/19 19 Unknown COMPLETE BLOOD COUNT 1158068 MCV 86.8 fL 9 Unknown COMPLETE BLOOD COUNT 4110760 MCH 29.5 pg 9 Unknown COMPLETE BLOOD COUNT 5418166 MCHC 34.0 g/dL 9 Unknown COMPLETE BLOOD COUNT 8955789 PLATELET COUNT 197 10e9/L Unknown COMPLETE BLOOD COUNT 8283631 Mean Plt Volume 10.8 fL Unknown COMPLETE BLOOD COUNT 3656464 Neut Auto 49.6 % 9 Unknown COMPLETE BLOOD COUNT 3662638 Lymph Auto 36.8 % 05/07/19 19 Unknown COMPLETE BLOOD COUNT 2106232 [place] Auto 8.1 % 9 Unknown COMPLETE BLOOD COUNT 8164114 RDW 15.3 % 9 Unknown COMPLETE BLOOD COUNT 2001992 Eos Auto 5.3 % 9 Unknown COMPLETE BLOOD COUNT 8723894 Baso Auto 0.2 % 9 Unknown COMPLETE BLOOD COUNT 6773787 Neutrophil Abs 2.73 10e9/L Unknown COMPLETE BLOOD COUNT [id number] Lymphocyte Abs 2.02 10e9/L Unknown COMPLETE BLOOD COUNT [id number] Monocyte Abs 0.45 10e9/L 04/17 Unknown COMPLETE BLOOD COUNT 9412950 Eosinophil Abs 0.29 10e9/L Unknown COMPLETE BLOOD COUNT [id number] RDW-SD 47.9 fL 9 Unknown COMPLETE BLOOD COUNT [id number] Basophil Abs 0.01 10e9/L 04/17 Unknown Procedures Procedure Codes Date CEFTRIAXONE SODIUM INJECTION CPT-4: J0696 11/09/2018 THER/PROPH/DIAG INJ SC/IM CPT-4: 02154 11/09/2018 ROUTINE VENIPUNCTURE CPT-4: 92240 11/09/2018 COMPREHEN METABOLIC PANEL CPT-4: 95997 11/09/2018 COMPLETE CBC W/AUTO DIFF WBC CPT-4: 49867 11/09/2018 LIPID PANEL CPT-4: 72571 11/09/2018 PROTHROMBIN TIME CPT-4: 32978 11/09/2018 THROMBOPLASTIN TIME PARTIAL CPT-4: 48855 11/09/2018 THER/PROPH/DIAG INJ SC/IM CPT-4: 61608 09/23/2018 KETOROLAC TROMETHAMINE INJ CPT-4: J1885 09/23/2018 ROUTINE VENIPUNCTURE CPT-4: 97067 2018 ASSAY THYROID STIM HORMONE CPT-4: 10170 2018 COMPREHEN METABOLIC PANEL CPT-4: 24644 2018 COMPLETE CBC W/AUTO DIFF WBC CPT-4: 45519 2018 LIPID PANEL CPT-4: 35964 2018 CEFTRIAXONE SODIUM INJECTION CPT-4: J0696 04/14/2018 THER/PROPH/DIAG INJ SC/IM CPT-4: 96521 04/14/2018 CEFTRIAXONE SODIUM INJECTION CPT-4: J0696 03/18/2018 THER/PROPH/DIAG INJ SC/IM CPT-4: 05384 03/18/2018 THER/PROPH/DIAG INJ SC/IM CPT-4: 90732 01/26/2018 KETOROLAC TROMETHAMINE INJ CPT-4: J1885 01/26/2018 CEFTRIAXONE SODIUM INJECTION CPT-4: J0696 12/22/2017 THER/PROPH/DIAG INJ SC/IM CPT-4: 07495 12/22/2017 ROUTINE VENIPUNCTURE CPT-4: 71083 11/14/2016 COMPLETE CBC W/AUTO DIFF WBC CPT-4: 10030 11/14/2016 PT/PTT CPT-4: 3750506 11/14/2016 Vital Signs Date Vital 05/17/2019 Blood [...] 1: 134/82 Code: 8480-6 BMI: 23.9 Code: 34310-7 Heart Rate 1: 100 bpm Height: 6'4" [...] 1: 138/70 Code: 8480-6 BMI: 22.6 Code: 80514-6 Heart Rate 1: 97 bpm Height: 6'4" [...] 1: 142/80 Code: 8480-6 BMI: 20.9 Code: 72570-9 Heart Rate 1: 108 bpm Height: 6'4" Respiratory Rate: 20 bpm SpO2: 97% Tempera ture: 36.6 (C) / 97.9 (F) Weight: 172 lbs 01/26/2018 Blood Pressure 1: 130/82 Code: 8480-6 Heart Rate 1: 98 bpm Respiratory Rate: 18 bpm SpO2: 99% Temperature: 35.7 (C) / 96.3 (F) We ight: 175 lbs 12/22/2017 Blood Pressure 1: 124/68 Code: 8480-6 BMI: 22.3 Code: 01718-1 Heart Rate 1: 100 bpm Height: 6'4" Respiratory Rate: 20 bpm SpO2: 98% Tempera ture: 36.7 (C) / 98.0 (F) Weight: 183 lbs 10/06/2017 Blood Pressure 1: 130/86 Code: 8480-6 BMI: 21.1 Code: 53750-6 Heart Rate 1: 92 bpm Height: 6'4" Respiratory Rate: 18 bpm SpO2: 98% Tempera ture: 36.9 (C) / 98.5 (F) Weight: 173 lbs 02/03/2017 Blood Pressure 1: 144/92 Code: 8480-6 BMI: 20.8 Code: 25700-8 Heart Rate 1: 88 bpm Height: 6'4" Respiratory Rate: 20 bpm SpO2: 97% Tempera ture: 36.7 (C) / 98.1 (F) Weight: 171 lbs 11/25/2016 Blood Pressure 1: 126/84 Code: 8480-6 Heart Rate 1: 76 bpm Respiratory Rate: 20 bpm SpO2: 96% Temperature: 36.9 (C) / 98.4 (F) We ight: 170 lbs 11/14/2016 Blood Pressure 1: 126/82 Code: 8480-6 BMI: 20.7 Code: 97474-7 Heart Rate 1: 86 bpm Height: 6'4" Respiratory Rate: 18 bpm SpO2: 96% Tempera ture: 35.8 (C) / 96.5 (F) Weight: 170 lbs 04/02/2016 Blood Pressure 1: 124/78 Code: 8480-6 Heart Rate 1: 88 bpm Respiratory Rate: 24 bpm SpO2: 97% Temperature: 36.1 (C) / 97.0 (F) We ight: 161 lbs 11/29/2015 Blood Pressure 1: 124/68 Code: 8480-6 BMI: 19.2 Code: 58287-6 Heart Rate 1: 94 bpm Height: 6'4" Respiratory Rate: 18 bpm SpO2: 97% Tempera ture: 36.1 (C) / 97.0 (F) Weight: 158 lbs 06/27/2015 Blood Pressure 1: 128/78 Code: 8480-6 BMI: 18.7 Code: 24789-0 Heart Rate 1: 72 bpm Height: 6'4" Respiratory Rate: 22 bpm SpO2: 98% Tempera ture: 35.9 (C) / 96.6 (F) Weight: 154 lbs 05/24/2015 Blood Pressure 1: 112/78 Code: 8480-6 BMI: 19.7 Code: 94933-5 Heart Rate 1: 78 bpm Height: 6'4" [...] care Encounters Encounter Performer Location Codes Date ([id number]) OFFICE/OUTPATIENT VISIT EST Diagnosis: 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, implant, or graft[ICD10: T85.818A] Diagnosis: DM w/o complication type II, uncontrolled[ICD10: E11.65] Janneth SHRESTHA Meedor CPT-4: 37434 05/17/2019 ([id number]) OFFICE/OUTPATIENT VISIT EST Diagnosis: Acute dermatitis[ICD10: L30.9] Diagnosis: DM w/o complication type II, uncontrolled[ICD10: E11.65] Diagnosis: Right leg DVT[ICD10: I82.401] Janneth SHRESTHA Meedor CPT-4: 76130 05/02/2019 ([id number]) OFFICE/OUTPATIENT VISIT EST Diagnosis: DM w/o complication type II, uncontrolled[ICD10: E11.65] Diagnosis: Allergic dermatitis[ICD10: L23.9] Diagnosis: Right leg DVT[ICD10: I82.401] Diagnosis: Paroxysmal atrial fibrillation[ICD10: I48.0] Diagnosis: Right calf pain[ICD10: M79.661] Janneth De Jesus SprinkleOLIVIA [facility] CPT-4: 59638 04/25/2019 ([id number]) OFFICE/OUTPATIENT VISIT EST Diagnosis: DM w/o complication type II, uncontrolled[ICD10: E11.65] Diagnosis: 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, implant, or graft[ICD10: T85.818A] Diagnosis: Essential hypertension[ICD10: I10] Janneth NORWOODCELINE FLOR SHRESTHA [employer] [facility] CPT-4: 16954 04/11/2019 ([id number]) OFFICE/OUTPATIENT VISIT EST Diagnosis: Sinus tachycardia[ICD10: R00.0] Diagnosis: Folliculitis[ICD10: L73.9] [facility]INE [facility] CPT-[facility]: 11632 03/01/2019 ([id number]) OFFICE/OUTPATIENT VISIT EST Diagnosis: Cellulitis of left lower limb[ICD10: L03.116] Diagnosis: Tendinitis of left peroneus longus tendon[ICD10: M76.72] Janneth MERINOLINE Liza [facility] CPT-4: 03077 11/18/2018 ([id number]) OFFICE/OUTPATIENT VISIT EST Diagnosis: Cellulitis of left foot[ICD10: L03.116] Diagnosis: Spontaneous ecchymoses[ICD10: R23.3] Diagnosis: Venous insufficiency (chronic) (peripheral)[ICD10: I87.2] Diagnosis: Mixed hyperlipidemia[ICD10: E78.2] Vania García REGINE RAY Liza SHRESTHA [employer] [facility] CPT-4: 84632 11/09/2018 ([id number]) OFFICE/OUTPATIENT VISIT EST Diagnosis: Venous insufficiency (chronic) (peripheral)[ICD10: I87.2] Diagnosis: Cellulitis of left lower limb[ICD10: L03.116] Diagnosis: Pain in right foot[ICD10: M79.671] Vania Cohenshahram RAY [employer] AMBER [employer] [facility] CPT-4: 90442 10/13/2018 ([id number]) OFFICE/OUTPATIENT VISIT EST Diagnosis: Low back pain[ICD10: M54.5] Vania Gironmary Dsouza. Brandon [facility] CPT-4: 07317 09/23/2018 ([id number]) OFFICE/OUTPATIENT VISIT EST Diagnosis: Gastro-esophageal reflux disease without esophagitis[ICD10: K21.9] Diagnosis: Dysphagia, pharyngoesophageal phase[ICD10: R13.14] Janneth SHRESTHA [facility] CPT-4: 91868 09/06/2018 ([id number]) OFFICE/OUTPATIENT VISIT EST Diagnosis: Tinea corporis[ICD10: B35.4] Vania SHRESTHA [facility] CPT-4: 15556 07/15/2018 ([id number]) OFFICE/OUTPATIENT VISIT EST Diagnosis: Cellulitis of left toe[ICD10: L03.032] Diagnosis: Mixed hyperlipidemia[ICD10: E78.2] Mandy MERINOGINNY RAY Liza [facility] CPT-4: 02910 2018 OFFICE/OUTPATIENT VISIT EST Diagnosis: Cellulitis of left toe[ICD10: L03.032] Diagnosis: Unspecified disturbances of skin sensation[ICD10: R20.9] Mandy [facility] CPT-4: 36108 04/14/2018 ([id number]) OFFICE/OUTPATIENT VISIT EST Diagnosis: Cellulitis of left toe[ICD10: L03.032] Diagnosis: Insomnia, unspecified[ICD10: G47.00] Vania [facility] CPT-4: 16154 03/18/2018 ([id number]) OFFICE/OUTPATIENT VISIT EST Diagnosis: Other postprocedural complications and disorders of the circulatory system, not elsewhere classified[ICD10: I97.89] Diagnosis: Rash and other nonspecific skin eruption[ICD10: R21] Diagnosis: Pain in right leg[ICD10: M79.604] Vania SHRESTHA [facility] CPT-4: 79792 01/26/2018 ([id number]) OFFICE/OUTPATIENT VISIT EST Diagnosis: Other postprocedural complications and disorders of the circulatory system, not elsewhere classified[ICD10: I97.89] Diagnosis: Cellulitis of right lower limb[ICD10: L03.115] Vania SHRESTHA [facility] CPT-4: 37397 12/22/2017 ([id number]) OFFICE/OUTPATIENT VISIT EST Diagnosis: Acute sinusitis, unspecified[ICD10: J01.90] Diagnosis: Unspecified disturbances of skin sensation[ICD10: R20.9] aVnia SHRESTHA DO [facility] CPT-4: 93607 10/06/2017 ([id number]) OFFICE/OUTPATIENT VISIT EST Diagnosis: Primary insomnia[ICD10: F51.01] Diagnosis: Pain in left shoulder[ICD10: M25.512] Diagnosis: Poisoning by other parasympatholytics [anticholinergics and antimuscarinics] and spasmolytics, accidental (unintentional), sequela[ICD10: T44.3X1S] Janneth SHRESTHA DO [facility] CPT-4: 81871 02/03/2017 OFFICE/OUTPATIENT VISIT EST Diagnosis: Insomnia, unspecified[ICD10: G47.00] Diagnosis: Constipation, unspecified[ICD10: K59.00] Diagnosis: Spontaneous ecchymoses[ICD10: R23.3] Diagnosis: Pain in left foot[ICD10: M79.672] Vania SHRESTHA [employer] [facility] CPT-4: 94211 11/25/2016 OFFICE/OUTPATIENT VISIT EST Diagnosis: Insomnia, unspecified[ICD10: G47.00] Diagnosis: Constipation, unspecified[ICD10: K59.00] Diagnosis: Spontaneous ecchymoses[ICD10: R23.3] Diagnosis: Other specified local infections of the skin and subcutaneous tissue[ICD10: L08.89] Vania SHRESTHA DO [facility] CPT-4: 99 213 11/14/2016 ([id number]) OFFICE/OUTPATIENT VISIT EST Diagnosis: Acute upper respiratory infection, unspecified[ICD10: J06.9] Ester MERINOLINE Liza SHRESTHA [employer] [facility] CPT-4: 32084 04/02/2016 ([id number]) OFFICE/OUTPATIENT VISIT EST Diagnosis: Acute upper respiratory infection, unspecified[ICD10: J06.9] Ester Grande JANNETH Liza SHRESTHA [employer] [facility] CPT-4: 44777 11/29/2015 ([id number]) OFFICE/OUTPATIENT VISIT EST Diagnosis: Pain in thoracic spine[ICD10: M54.6] Diagnosis: Paresthesia of skin[ICD10: R20.2] Diagnosis: Dysphagia, unspecified[ICD10: R13.10] Ester SHRESTHA Meedor CPT-4: 82640 06/27/2015 ([id number]) OFFICE/OUTPATIENT VISIT NEW Diagnosis: Pain in left leg[ICD10: M79.605] Diagnosis: Male erectile dysfunction, unspecified[ICD10: N52.9] Diagnosis: Dysphagia, unspecified[ICD10: R13.10] Ester SHRESTHA [employer] [facility] CPT-4: 56742 05/24/2015 Plan of Care Planned Activity Notes [...] E11.65 05/02/2019 Appointment: Janneth Shrestha [facility]el[facility] [address] [facility] [facility] 05/02/2019 Patient Education: metoprolol succinate- [employer] Co upon [id number] https://www.Arledia/Rawporter/resources/getResource/61/16960xv4-v9b2-556r-m7 Completed 05/02/2019 Visit Diagnosis Plan: Paroxysmal atrial [...] E11.65 04/25/2019 Appointment: Janneth Shrestha [facility]el[facility] [phone] [facility] [facility] 04/25/2019 Patient Education: Metformin Patient Savings Message Alert Completed 04/25/2019 Patient Education: prednisone- [employer] Coupon [id number] https://www.Arledia/Rawporter/resources/getResource/61/8nf91nc5-h1bp-6r31-ng Completed 04/25/2019 Visit Diagnosis Plan: DM w/o [...] : T85.818A 04/11/2019 Appointment: Janneth Shrestha WPtel: [address] [place], [place] [id number] ACUTE ILLNESS 04/11/2019 Patient Education: metoprolol succinate- [employer] Co upon [id number] https://www.Arledia/Rawporter/resources/getResource/61/oz438353-23oy-3u29-76 Completed 04/11/2019 Patient Education: Metformin Patient Savings Message Alert Completed 04/11/2019 Patient Education: cephalexin- [employer] Coupon [id number] https://www.Arledia/Rawporter/resources/getResource/61/1rhd8620-4j0v-1612-qg Completed 04/11/2019 Visit Diagnosis Plan: Folliculitis Discussion: Bactrim and topical bactroban ICD-9 : 704.8 ICD-10 : L73.9 03/01/2019 Visit Diagnosis Plan: Sinus tachycardia Discussion: St art low dose metoprolol ER 25mg daily Monitor pulse Sees Cardiology next month ICD-9 : 427.89 ICD-10 : R00.0 03/01/2019 Appointment: Janneth Shrestha WPtel: [address] [place], [place] [phone] [place] FOLLOW UP 03/01/2019 Patient Education: mupirocin- [employer] Coupon [id number] https://www.Arledia/Rawporter/resources/getResource/61/iw170ov1-81yv-407h-lt Completed 03/01/2019 Appointment: Janneth Shrestha WPtel: [address] [place], [place] [phone] [place] CANCELED 12/20/2018 Visit Diagnosis Plan: Cellulitis [...] : M76.72 11/18/2018 Appointment: Vania García [facility] [place] CANCELED 11/18/2018 Appointment: Janneth Shrestha WPtel: [phone] [facility] [place] FOLLOW UP 11/18/2018 Patient Education: doxycycline monohydrate- [employer] Coupon [id number] https://www.Arledia/sampleLeap Motion/resources/getResource/61/ors44065-u6l2-52m3-3e Completed 11/18/2018 Patient Education: prednisone- [employer] Coupon [id number] https://www.Arledia/sampleLeap Motion/resources/getResource/61/66nr7w0t-9js7-3166-uh Completed 11/18/2018 Care Plan: Referral Order SNOMED-CT : 30 [id number] Pending 11/18/2018 Visit Diagnosis Plan: Venous insufficiency [...] evaluated in an ED [place] he[place] traveling. discussed the risk [...] ICD-10 : R23.3 11/09/2018 Appointment: Vania García [address] [place], [place] [id number] ACUTE ILLNESS 11/09/2018 Patient Education: clindamycin HCl- [employer] Coupon [id number] https://www.Rawporter.com/samplemd/resources/getResource/61/86mj72p2-lh99-8pw2-4g Completed 11/09/2018 Appointment: Janneth Shrestha WPtel: [phone] [facility] [place] CANCELED 10/19/2018 Visit Diagnosis Plan: Pain [...] ICD-10 : L03.116 10/13/2018 Appointment: Vania García [address] [place], [place] [phone] [place] Patient cant pay copay till when [...] ICD-10 : M54.5 09/23/2018 Appointment: Vania García [address] [place] [address] ACUTE ILLNESS 09/23/2018 Patient Education: Medrol (Brenden)- [employer] Coupon [phone] https://www.Arledia/sampleLeap Motion/resources/getResource/61/vppe603w-5645-18z8-29 Completed 09/23/2018 Visit Diagnosis Plan: Dysphagia, pharyngoesophageal ph ase Discussion: Referral for EGD ICD-9 : 787.24 ICD-10 : R13.14 09/06/2018 Visit Diagnosis Plan: Gastro-esophageal reflux disease without esophagitis Discussion: Start omeprazole ICD-9 : 530.81 ICD-10 : K21.9 09/06/2018 Appointment: Janneth Shrestha WPtel: [facility] [place] [phone] [place] [address] ACUTE ILLNESS 09/06/2018 Patient Education: omeprazole- [employer] Coupon [id number] https://www.Rawporter.Lucid Software/Rawporter/resources/getResource/61/494ap223-46q0-066n-87 Completed 09/06/2018 Care Plan: Referral Order SNOMED-CT : 30 [id number] Pending 09/06/2018 Visit Diagnosis Plan: Tinea corporis Discussion: nysta tin to be used bid until rash gone and then an additional 2 days. diflucan every 3 days for 3 doses. keep area clean and dry with no moisturizers. call office if no improvement in 2 weeks or if worsening. ICD-9 : 110.5 ICD-10 : B35.4 07/15/2018 Appointment: Vania García [address] [place] [address] ACUTE ILLNESS 07/15/2018 Patient Education: nystatin- [employer] Coupon [id number] https://www.Arledia/samplemd/resources/getResource/61/85rft801-a6tq-29ao-3d Completed 07/15/2018 Patient Education: Plavix- [employer] Coupon [id number] https://www.Arledia/samplemd/resources/getResource/61/81ep7i92-u64k-47qi-80 fa-g663r8091780.pdf Completed 07/15/2018 Patient Education: cyclobenzaprine- [employer] Coupon [id number] https://www.Arledia/sampleLeap Motion/resources/getResource/61/90882e3l-8h30-03o2-pq Completed 07/15/2018 Visit Diagnosis Plan: Cellulitis of [...] : L03.032 2018 Appointment: Mandy Hollins [facility] [employer] [address] FOLLOW UP 2018 Patient Education: mupirocin- [employer] Coupon [id number] https://www.Arledia/sampleLeap Motion/resources/getResource/61/i1ai72e3-4381-4485-8n Completed 2018 Visit Diagnosis Plan: Cellulitis of [...] ICD-10 : R20.9 04/14/2018 Appointment: Mandy Hollins [facility] [employer] [address] FOLLOW UP 04/14/2018 Visit Diagnosis Plan: [...] ICD-10 : G47.00 03/18/2018 Appointment: Vania García [address] [place] [address] ACUTE ILLNESS 03/18/2018 Patient Education: cyclobenzaprine- [employer] Coupon [id number] https://www.Rawporter.Lucid Software/samplemd/resources/getResource/61/9694u508-8mu4-913d-s6 Completed 03/18/2018 Visit Diagnosis Plan: Rash and other nonspecific skin eruption Discussion: triamcinolone ordered to be used as directed. ICD-9 : 782.1 ICD-10 : R21 01/26/2018 Visit Diagnosis Plan: Other postprocedur al complications and disorders of the circulatory system, not elsewhere classified Discussion: discussed with dr. shrestha and patient was instructed to contact the [place] [facility] de[facility]. due to uncontrolled pain, continued erythema, patient needs to be re-evaluated by the surgeon. 60 mg toradol given to patient. patient verbalized understanding and voiced he will contact them today for an appointment. ICD-9 : 997.1 ICD-10 : I97.89 01/26/2018 Appointment: Vania García [address] [place] [address] Follow Up 01/26/2018 Appointment: Janneth Shrestha WPtel: [phone] [facility] [place] [address] NO SHOW 01/06/2018 Visit Diagnosis Plan: Other [...] : I97.89 12/22/2017 Appointment: Vania García [address] [facility] ACUTE ILLNESS 12/22/2017 Visit Diagnosis Plan: [...] : J01.90 10/06/2017 Appointment: Vania García [address] [facility] ACUTE ILLNESS 10/06/2017 Patient Education: Patient Medication Summary Completed 10/06/2017 Appointment: Vania García [facility] ER Follow UP 08/17/2017 Appointment: Vania García [address] [place], [place] [address] [place] CANCELED 07/03/2017 Appointment: [facility]rest[facility]el[facility] [id number] [place] canceled at 8:05 this morning. 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 ICD-9 : 729.5 ICD-10 : M79.672 11/25/2016 Visit Diagnosis Plan: Insomnia, unspecified Recommenda tions: resolved with lunesta. continue taking as prescribed. ICD-9 : 780.52 ICD-10 : G47.00 11/25/2016 Appointment: Vania García [address] [place], [place] [phone] FOLLOW UP 11/25/2016 Patient Education: [...] ICD-10 : K59.00 11/14/2016 Appointment: Vania García [address] [place] [address] ACUTE ILLNESS 11/14/2016 Patient Education: Patient Medication Summary Completed 11/14/2016 Visit Diagnosis Plan: Acute upper respiratory infectio n, unspecified Discussion: Rxs as above Continue OTC and supportive meds Encouraged smoking cessation Follow up PRN ICD-9 : 465.9 ICD-10 : J06.9 04/02/2016 Appointment: Ester Grande [address] [place] [address] ACUTE ILLNESS 04/02/2016 Patient Education: Patient Medication Summary Completed 04/02/2016 Visit Plan: Rxs as above Supportive care reviewed Follow up PRN 11/29/2015 Appointment: Ester Grande [address] [place] [address] 11/27 confirmed~sl ACUTE ILLNESS 11/29/2015 Patient Education: [...] for pain 06/27/2015 Appointment: Ester Grande [address] [facility] 06/25 lm ~sl 06/26 phone not on~sl FOLLOW UP 06/27/2015 Patient Education: Patient Medication Summary Completed 06/27/2015 Care Plan: X-RAY EXAM RIBS UNI 2 VIEWS L OINC : 56333-0 Pending 06/27/2015 Referral: Héctor Woodard WPtel: [address] [facility] 05/29 Scheduled with sena ~ Appointment Re quested 06/26/2015 Referral: Cameron Khanna WPtel: [address] [facility] [place] Referral Initiated 06/11/2015 Referral: Marco Antonio Green WPtel: [address] [id number] 05/30/15 Needs to be there at pre op time per ~sl Initiated 06/04/2015 Visit Plan: Will get all necessary refer rals set up - CTS, Uro and G/S Swallow study and routine labs ordered Will further investigate left leg pain with EMG if not cardio related 05/24/2015 Appointment: Ester Grande [address] [facility] [place] NEW PATIENT 05/24/2015 Patient Education: Patient Medication Summary Completed 05/24/2015 Care Plan: Referral Order SNOMED-CT : 30 [id number] Pending 05/24/2015 Care Plan: Referral Order SNOMED-CT : 30 [id number] Pending 05/24/2015 Care Plan: Referral Order SNOMED-CT : 30 6583053 Pending 05/24/2015 Referral: Sudheer Gann WPtel: [address] [facility] [place] Referral Appointment Requested Referral: Alfonzo Andujar WPtel: [address] [facility] [place] Referral Initiated Referral: [facility] [address] [id number] [place] Referral Completed Referral: Cameron Khanna WPtel: [address] [place] [address] [place] Referral Appointment Requested Referral: RoseBrianna WPtel: [address] [place] [address] [place] Referral Initiated Referral: YamiletHéctor jones WPtel: [address] [place] [address] [place] 05/24/15 [facility] office suggested he see another card. ~sl Initiated Referral: Alfonzo Andujar WPtel: [address] [place] [address] [place] Referral Appointment Requested Referral: Marco Antonio Green WPtel: [address] [place] [address] [place] Referral Appointment Requested Instructions Comment . [...]
--- OUTSIDE RECORDS SUMMARY | 2019-08-06 10:25 | XMS REPORT | CCD ---
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 Role Phone Janneth Shrestha D.O., PP Unavailable CCM Unavailable Summary Purpose Interface Exchange Insurance Providers Payer name Policy type / Coverage type Covered republican ID Effective Begin Date Effective End Date Blue Cross Blue Shield Blue Cross/Blue Shield [id number] Unknown Family History Family History data not found Social History Social History Element Codes Description Effective Dates Marital status Unknown 05/24/2015 Number of children Unknown 2 05/24/2015 Employment Unknown Currently employed 05/24/[address]: 36669964 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 05/24/2015 Allergies, Adverse Reactions, Alerts Substance Reaction Codes Entered Date Inactivated Date Status * NO KNOWN FOOD ALLERGIES Unknown 05/24/2015 No Inactiv e Date Active * NO KNOWN ENVIRONMENTAL ALLERGIES Unknown 05/24/2015 N o Inactive Date Active _ Unknown 05/24/2015 No Inactive Date Active Problems Condition Codes Effective Dates Condition Status Acute dermatitis ICD-9: 692.9 ICD-10: L30.9 05/02/2019 Active DM w/o complication type II, uncontrolled ICD-9: 250.0 2 ICD-10: E11.65 04/11/2019 Active Right leg DVT ICD-9: 453.40 ICD-10: I82.401 04/25/2019 Active Allergic dermatitis ICD-9: 692.9 ICD-10: L23.9 04/25/2019 Active Paroxysmal atrial fibrillation ICD-9: 427.31 ICD-10: I48.0 04/25/2019 Active Right calf pain ICD-9: 729.5 ICD-10: M79.661 04/25/2019 Active Hypertension Unknown 04/11/2019 Active 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, implant, or graft ICD-9: 996 .70 ICD-10: T85.818A 04/11/2019 Active Essential hypertension ICD-9: 401.9 ICD-10: [...] 50 mg tablet,extended release 24 hr RxNorm: 374935 1 Tablet(s) Oral QD 08/01/2019 10/30/2019 Active ReliOn Thin Lancets 26 gauge RxNorm: 1 Unit Dose Miscell aneous two times a day 05/02/2019 05/02/2019 Inactive ReliOn Prime Test Strips RxNorm: 1 Unit Dose Miscellaneo us two times a day 05/02/2019 07/15/2022 Active ReliOn Thin Lancets 26 gauge RxNorm: 1 Unit Dose Miscell aneous two times a day 05/02/2019 05/01/2019 Inactive ReliOn Prime Test Strips RxNorm: 1 Unit Dose Miscellaneo us two times a day 05/02/2019 05/01/2019 Inactive Xarelto 20 mg tablet RxNorm: 3173246 1 Tablet(s) Oral QD 04/25/2019 No Stop Date Active Plavix 75 mg tablet RxNorm: 116861 TAKE ONE TABLET BY MOUTH DAILY 0 04/25/2019 04/26/2019 Inactive amiodarone 200 mg tablet RxNorm: 493365 1 Tablet(s) Oral QD 020 No Stop Date Active metformin ER 500 mg 24 hr tablet,extended release RxNorm: 18 93529 1 Tablet(s) Oral two times a day 04/25/2019 07/24/2019 Active Plavix 75 mg tablet RxNorm: 727021 TAKE ONE TABLET BY MOUTH DAILY 0 04/25/2019 04/24/2019 Inactive prednisone 20 mg tablet RxNorm: 103876 1 Tablet(s) Oral two jn es a day 04/25/2019 05/01/2019 Inactive aspirin 81 mg tablet,delayed release RxNorm: 609055 1 Tablet(s) Oral QD 04/11/2019 No Stop Date Active pantoprazole 40 mg tablet,delayed release RxNorm: 814430 1 Tabl et(s) Oral QAM 04/11/2019 No Stop Date Active Vitamin C 1,000 mg tablet RxNorm: 795378 1 Tablet(s) Oral QD 2019 No Stop Date Active Xarelto 15 mg tablet RxNorm: 4025236 1 Tablet(s) Oral QD 04/11/2019 0 04/24/2019 Inactive metformin ER 500 mg 24 hr tablet,extended release RxNorm: 18 30087 1 Tablet(s) Oral QD 04/11/2019 04/24/2019 Inactive cephalexin 500 mg capsule RxNorm: 703425 1 Capsule(s) Oral thre e times a day 04/11/2019 04/18/2019 Inactive metoprolol succinate ER 50 mg tablet,extended release 24 hr RxNorm: 155496 1 Tablet(s) Oral QD replaces 25mg dose 04/11/2019 05/01/2019 Inactive cyclobenzaprine 10 mg tablet RxNorm: 251808 TAKE ONE TA BLET BY MOUTH EVERY NIGHT AT BEDTIME NEEDED 03/11/2019 No Stop Date Active mupirocin 2 % topical ointment RxNorm: 403530 Applicati on Topical two times a day 03/01/2019 04/10/2019 Inactive metoprolol succinate ER 25 mg tablet,extended release 24 hr RxNorm: 397604 1 Tablet(s) Oral QD 03/01/2019 04/24/2019 Inactive Bactrim DS 800 mg-160 mg tablet RxNorm: 233129 1 Tablet(s) Oral two times a day 03/01/2019 03/11/2019 Inactive omeprazole 40 mg capsule,delayed release RxNorm: 379809 TAKE ONE CAPSULE BY MOUTH EVERY NIGHT AT BEDTIME FOR REFLUX 01/10/2019 No Stop Date Active cyclobenzaprine 10 mg tablet RxNorm: 201173 TAKE ONE TA BLET BY MOUTH EVERY NIGHT AT BEDTIME NEEDED 01/10/2019 03/10/2019 Inactive Plavix 75 mg tablet RxNorm: 314394 TAKE ONE TABLET BY MOUTH DAILY 1 03/12/2018 04/24/2019 Inactive tramadol 50 mg tablet RxNorm: 187570 1 Tablet(s) Oral f our times a day as needed 01/03/2019 01/03/2019 Inactive doxycycline monohydrate 100 mg capsule RxNorm: 4462931 1 Capsule(s) Oral two times a day 11/22/2018 12/13/2018 Inactive prednisone 20 mg tablet RxNorm: 423487 1 Tablet(s) Oral two jn es a day 11/22/2018 11/29/2018 Inactive Levaquin 750 mg tablet RxNorm: 758490 Tablet(s) Oral 11/18/201802/28 Inactive prednisone 20 mg tablet RxNorm: 888903 1 Tablet(s) Oral two jn es a day 11/18/2018 11/21/2018 Inactive tramadol 50 mg tablet RxNorm: 634145 Tablet(s) Oral 11/18/20182018 Inactive doxycycline monohydrate 100 mg capsule RxNorm: 4912581 1 Capsule(s) Oral two times a day 11/18/2018 11/21/2018 Inactive Plavix 75 mg tablet RxNorm: 766147 TAKE ONE TABLET BY MOUTH DAILY 0 11/10/2018 01/08/2019 Inactive clindamycin HCl 300 mg capsule RxNorm: 941434 1 Capsule (s) Oral three times a day 11/09/2018 11/19/2018 Inactive Keflex 500 mg capsule RxNorm: 434416 1 Capsule(s) PO BID 10/13/2018 0 10/22/2018 Inactive Medrol (Brenden) 4 mg tablets in a dose pack RxNorm: 849725 Tablet(s) take as directed PO 09/23/2018 10/12/2018 Inactive omeprazole 40 mg capsule,delayed release RxNorm: 214788 1 Capsule(s) PO QHS for reflux 09/06/2018 11/04/2018 Inactive cyclobenzaprine 10 mg tablet RxNorm: 521090 1 Tablet(s) PO QHS as needed 07/15/2018 10/12/2018 Inactive Diflucan 150 mg tablet RxNorm: 682616 1 Tablet(s) PO Q72H 07/15/2018 09/05/2018 Inactive nystatin 100,000 unit/gram topical cream RxNorm: 651321 1 Gram( s) TOP BID 07/15/2018 09/05/2018 Inactive Plavix 75 mg tablet RxNorm: 942796 1 Tablet(s) PO QD 07/15/201810/12 Inactive cyclobenzaprine 10 mg tablet RxNorm: 245160 1 Tablet(s) PO QHS as needed 06/10/2018 06/09/2018 Inactive cyclobenzaprine 10 mg tablet RxNorm: 695065 TAKE ONE TA BLET BY MOUTH EVERY NIGHT AT BEDTIME NEEDED 05/10/2018 06/10/2018 Inactive mupirocin 2 % topical ointment RxNorm: 528438 1 Application TOP BID 2018 05/25/2018 Inactive 22 gram cyclobenzaprine 10 mg tablet RxNorm: 605332 1 Tablet(s) PO QHS as needed 04/14/2018 06/09/2018 Inactive doxycycline hyclate 100 mg tablet RxNorm: 9933626 1 Tablet(s) PO BI D 04/14/2018 04/23/2018 Inactive cyclobenzaprine 10 mg tablet RxNorm: 379494 1 Tablet(s) PO QHS as needed 04/07/2018 04/13/2018 Inactive Bactrim DS 800 mg-160 mg tablet RxNorm: 286383 1 Tablet(s) PO BID 0 03/18/2018 03/27/2018 Inactive cyclobenzaprine 10 mg tablet RxNorm: 190408 1 Tablet(s) PO QHS as needed 03/18/2018 04/06/2018 Inactive triamcinolone acetonide 0.1 % topical cream RxNorm: 8221124 APPLY TO AFFECTED AREA(S) TWO TIMES A DAY 02/03/2018 02/12/2018 Inactive triamcinolone acetonide 0.1 % topical cream RxNorm: 2255873 1 Application TOP BID 01/26/2018 02/02/2018 Inactive Medrol (Brenden) 4 mg tablets in a dose pack RxNorm: 844063 TAKE BY MOUTH INSTRUCTED - PER PACKAGE INSTRUCTIONS 12/11/2017 12/16/2017 Inactive Medrol (Brenden) 4 mg tablets in a dose pack RxNorm: 721680 Tablet(s) P O 10/06/2017 12/10/2017 Inactive Lunesta 3 mg tablet RxNorm: 744523 1 Tablet(s) PO QHS 11/25/201608/2016 Inactive Lunesta 3 mg tablet RxNorm: 454549 1 Tablet(s) PO QHS 11/14/201610/2016 Inactive Bactrim DS 800 mg-160 mg tablet RxNorm: 719346 1 Tablet(s) PO BID 0 11/14/2016 11/23/2016 Inactive Epi E-Z Pen 0.3 mg/0.3 mL injection, auto-injector RxNorm: 1 162813 Milliliter(s) IM Use as Directed 06/25/2016 09/05/2018 Inactive amoxicillin 875 mg tablet RxNorm: 621400 1 Tablet(s) PO BID 017 04/11/2016 Inactive prednisone 20 mg tablet RxNorm: 647426 1 Tablet(s) PO BID 04/02/2016 04/06/2016 Inactive azithromycin 250 mg tablet RxNorm: 956652 2 Tablet(s) P O on day one then 1 tab on days 2-5 11/29/2015 11/28/2015 Inactive Medrol (Brenden) 4 mg tablets in a dose pack RxNorm: 871636 Take as directed 11/29/2015 11/13/2016 Inactive meloxicam 15 mg tablet RxNorm: 862340 1 Tablet(s) PO QD 07/02/2015 Inactive Chantix Starting Month Box 0.5 mg (11)-1 mg (42) table ts in dose pack RxNorm: 269064 Tablet(s) PO As Directed 06/20/2015 07/10/2015 Inactive omeprazole 40 mg capsule,delayed release RxNorm: 253031 1 Capsu le(s) PO QD 05/31/2015 11/13/2016 Inactive omeprazole 40 mg capsule,delayed release RxNorm: 750579 1 Capsu le(s) PO QD 05/31/2015 05/30/2015 Inactive Lactobacillus acidophilus-Bifidobacterium longum oral RxNorm: oral No Start Date Active Multivitamin And Mineral oral RxNorm: oral No Start Date Active Wellbutrin SR 150 mg tablet,sustained-release RxNorm: 865065 1 Tablet(s) PO BID No Start Date 11/13/2016 Inactive gabapentin 100 mg capsule RxNorm: 227575 1 Capsule(s) PO TID No Sta rt Date 03/17/2018 Inactive Chantix Starting Month Box 0.5 mg (11)-1 mg (42) table ts in dose pack RxNorm: 636574 Tablet(s) PO As Directed No Start Date 06/19/2015 Inactive Eliquis 5 mg tablet RxNorm: 5524437 1 Tablet(s) PO BID No Start Date 03/17/2018 Inactive aspirin 325 mg tablet RxNorm: 684734 1 Tablet(s) PO QD No Start Date 11/13/2016 Inactive clindamycin HCl 300 mg capsule RxNorm: 781044 2 Capsule(s) PO Q8H N o Start Date 03/17/2018 Inactive Fish Oil 1,000 mg (120 mg-180 mg) capsule RxNorm: 1 Caps ule(s) PO QD No Start Date 09/05/2018 Inactive aspirin 81 mg tablet RxNorm: 309214 1 Tablet(s) PO QD No Start Date 1 03/28/2017 Inactive Fish Oil 1,000 mg capsule RxNorm: 1 Capsule(s) PO QD No Start Date 11/13/2016 Inactive Baby Aspirin 81 mg chewable tablet RxNorm: 686720 1 Tablet(s) P O BID No Start Date 02/02/2017 Inactive Xarelto 10 mg tablet RxNorm: 4042437 1 Tablet(s) PO QD No Start Date 01/25/2018 Inactive tramadol 50 mg tablet RxNorm: 829287 1-2 Tablet(s) PO Q6H No Start Date 03/17/2018 Inactive meloxicam 15 mg tablet RxNorm: 284745 1 Tablet(s) PO QD No Start Da te 07/01/2015 Inactive Epi E-Z Pen 0.3 mg/0.3 mL injection, auto-injector RxNorm: 1 660097 Milliliter(s) IM Use as Directed No Start Date 06/24/2016 Inactive Plavix 75 mg tablet RxNorm: 008084 1 Tablet(s) PO QD No Start Date Inactive Medication Administered No Medication Administered data Immunizations No Immunization data Results Observation Observation Code Item Item Code Result Date S ervice Location COMPREHENSIVE METABOLIC 79706 AST 25 U/L 2018 Unknown COMPREHENSIVE METABOLIC 61172 ALT 28 U/L 2018 Unknown COMPREHENSIVE METABOLIC 54455 BUN 13 mg/dL 2018 Unknown COMPREHENSIVE METABOLIC 02039 ALBUMIN 4.2 g/dL 2018 Unknown COMPREHENSIVE METABOLIC 28847 CHLORIDE 104 mmol/L 11/09 Unknown COMPREHENSIVE METABOLIC 99836 Bili Total 0.5 mg/dL 11/09 Unknown COMPREHENSIVE METABOLIC 14133 ALK PHOS 72 U/L 2018 Unknown COMPREHENSIVE METABOLIC 37198 SODIUM 139 mmol/L 11/09 Unknown COMPREHENSIVE METABOLIC 37896 CREATININE 0.98 mg/dL 10/18 Unknown COMPREHENSIVE METABOLIC 90436 CALCIUM 9.1 mg/dL 2018 Unknown COMPREHENSIVE METABOLIC 85048 POTASSIUM 3.7 mmol/L 11/09 Unknown COMPREHENSIVE METABOLIC 04080 Total Protein 7.2 g/dL Unknown COMPREHENSIVE METABOLIC 47934 Glucose 137 mg/dL 2018 Unknown COMPREHENSIVE METABOLIC 23199 Bicarbonate 24 mmol/L 10/18 Unknown COMPREHENSIVE METABOLIC 46438 AGAP 11 mmol/L 2018 Unknown COMPLETE BLOOD COUNT 0136912 WBC 4.6 10e9/L 11/10/19 19 Unknown COMPLETE BLOOD COUNT [id number] RBC 4.88 10e12/L 2018 Unknown COMPLETE BLOOD COUNT [id number] HEMOGLOBIN 14.7 g/dL 11/10/19 19 Unknown COMPLETE BLOOD COUNT [id number] HEMATOCRIT 43.7 % 11/10/19 19 Unknown COMPLETE BLOOD COUNT 6860554 MCV 89.5 fL 9 Unknown COMPLETE BLOOD COUNT [id number] MCH 30.1 pg 9 Unknown COMPLETE BLOOD COUNT 0467775 MCHC 33.6 g/dL 9 Unknown COMPLETE BLOOD COUNT [id number] PLATELET COUNT 179 10e9/L Unknown COMPLETE BLOOD COUNT [id number] Mean Plt Volume 11.6 fL Unknown COMPLETE BLOOD COUNT [id number] Neut Auto 55.5 % 9 Unknown COMPLETE BLOOD COUNT [id number] Lymph Auto 28.7 % 11/10/19 19 Unknown COMPLETE BLOOD COUNT 5014453 [place] Auto 7.9 % 9 Unknown COMPLETE BLOOD COUNT [id number] RDW 13.2 % 9 Unknown COMPLETE BLOOD COUNT [id number] Eos Auto 7.7 % 9 Unknown COMPLETE BLOOD COUNT [id number] Baso Auto 0.2 % 9 Unknown COMPLETE BLOOD COUNT [id number] Neutrophil Abs 2.55 10e9/L Unknown COMPLETE BLOOD COUNT [id number] Lymphocyte Abs 1.32 10e9/L Unknown COMPLETE BLOOD COUNT [id number] Monocyte Abs 0.36 10e9/L 10/18 Unknown COMPLETE BLOOD COUNT [id number] Eosinophil Abs 0.35 10e9/L Unknown COMPLETE BLOOD COUNT 1484623 RDW-SD 42.2 fL 9 Unknown COMPLETE BLOOD COUNT [id number] Basophil Abs 0.01 10e9/L 10/18 Unknown LIPID GROUP 35485 Cholesterol 205 mg/dL 11/09/2018 Unkno wn LIPID GROUP 60265 Triglyceride 268 mg/dL 11/09/2018 Unkn own LIPID GROUP 93272 HDL CHOLESTEROL 35 mg/dL 11/09/2018 U nknown LIPID GROUP 04851 Chol/HDL Ratio 5.86 ratio 11/09/2018 U nknown LIPID GROUP 70809 NON-HDL Chol 170 mg/dL 11/09/2018 Unkn own LIPID GROUP 28478 LDL Cholesterol 116 mg/dL 11/09/2018 U nknown PT [id number] PT 12.7 Seconds 11/09/2018 Unknow n PT 8153250 INR 0.9 11/09/2018 Unknown GFR CALC 3546863 GFR Non Afr Amr >60 mL/min 11/09/2018 Un known GFR CALC 5517917 GFR Afr Amr >60 mL/min 11/09/2018 Unknow n ACT PARTIAL THRMBOPLASTIN TIME 24756 PTT 34.0 Sec[place] nds 11/09/2018 Unknown LIPID GROUP 09517 Cholesterol 186 mg/dL 2018 Unkno wn LIPID GROUP 33440 Triglyceride 229 mg/dL 2018 Unkn own LIPID GROUP 28348 HDL CHOLESTEROL 36 mg/dL 2018 U nknown LIPID GROUP 14374 Chol/HDL Ratio 5.17 ratio 2018 U nknown LIPID GROUP 75309 NON-HDL Chol 150 mg/dL 2018 Unkn own LIPID GROUP 78145 LDL Cholesterol 104 mg/dL 2018 U nknown GFR CALC 3508670 GFR Non Afr Amr >60 mL/min 2018 Un known GFR CALC 0289703 GFR Afr Amr >60 mL/min 2018 Unknow n COMPREHENSIVE METABOLIC 34336 AST 23 U/L 2018 Unknown COMPREHENSIVE METABOLIC 98042 ALT 22 U/L 2018 Unknown COMPREHENSIVE METABOLIC 06548 BUN 15 mg/dL 2018 Unknown COMPREHENSIVE METABOLIC 69034 ALBUMIN 4.1 g/dL 2018 Unknown COMPREHENSIVE METABOLIC 02982 CHLORIDE 106 mmol/L 05/06 Unknown COMPREHENSIVE METABOLIC 71920 Bili Total 0.6 mg/dL 05/06 Unknown COMPREHENSIVE METABOLIC 85011 ALK PHOS 61 U/L 2018 Unknown COMPREHENSIVE METABOLIC 46553 SODIUM 141 mmol/L 05/06 Unknown COMPREHENSIVE METABOLIC 66772 CREATININE 0.91 mg/dL 04/17 Unknown COMPREHENSIVE METABOLIC 41509 CALCIUM 9.2 mg/dL 2018 Unknown COMPREHENSIVE METABOLIC 60668 POTASSIUM 3.8 mmol/L 05/06 Unknown COMPREHENSIVE METABOLIC 25973 Total Protein 7.0 g/dL Unknown COMPREHENSIVE METABOLIC 12342 Glucose 97 mg/dL 2018 Unknown COMPREHENSIVE METABOLIC 68324 Bicarbonate 28 mmol/L 04/17 Unknown COMPREHENSIVE METABOLIC 40047 AGAP 7 mmol/L 2018 Unknown THYROID STIMULATING HORMONE 73251 TSH 2.094 uIU/mL 2018 Unknown COMPLETE BLOOD COUNT 4142290 WBC 5.5 10e9/L 05/07/19 19 Unknown COMPLETE BLOOD COUNT [id number] RBC 4.61 10e12/L 2018 Unknown COMPLETE BLOOD COUNT 4598107 HEMOGLOBIN 13.6 g/dL 05/07/19 19 Unknown COMPLETE BLOOD COUNT [id number] HEMATOCRIT 40.0 % 05/07/19 19 Unknown COMPLETE BLOOD COUNT 5416389 MCV 86.8 fL 9 Unknown COMPLETE BLOOD COUNT 1614922 MCH 29.5 pg 9 Unknown COMPLETE BLOOD COUNT 4805853 MCHC 34.0 g/dL 9 Unknown COMPLETE BLOOD COUNT 2249481 PLATELET COUNT 197 10e9/L Unknown COMPLETE BLOOD COUNT 4156399 Mean Plt Volume 10.8 fL Unknown COMPLETE BLOOD COUNT 3895543 Neut Auto 49.6 % 9 Unknown COMPLETE BLOOD COUNT 5938896 Lymph Auto 36.8 % 05/07/19 19 Unknown COMPLETE BLOOD COUNT 8340007 [place] Auto 8.1 % 9 Unknown COMPLETE BLOOD COUNT 8270789 RDW 15.3 % 9 Unknown COMPLETE BLOOD COUNT 1549615 Eos Auto 5.3 % 9 Unknown COMPLETE BLOOD COUNT 9297538 Baso Auto 0.2 % 9 Unknown COMPLETE BLOOD COUNT 4501442 Neutrophil Abs 2.73 10e9/L Unknown COMPLETE BLOOD COUNT [id number] Lymphocyte Abs 2.02 10e9/L Unknown COMPLETE BLOOD COUNT [id number] Monocyte Abs 0.45 10e9/L 04/17 Unknown COMPLETE BLOOD COUNT 1527019 Eosinophil Abs 0.29 10e9/L Unknown COMPLETE BLOOD COUNT 1361805 RDW-SD 47.9 fL 9 Unknown COMPLETE BLOOD COUNT [id number] Basophil Abs 0.01 10e9/L 04/17 Unknown Procedures Procedure Codes Date CEFTRIAXONE SODIUM INJECTION CPT-4: J0696 11/09/2018 THER/PROPH/DIAG INJ SC/IM CPT-4: 53035 11/09/2018 ROUTINE VENIPUNCTURE CPT-4: 22213 11/09/2018 COMPREHEN METABOLIC PANEL CPT-4: 34609 11/09/2018 COMPLETE CBC W/AUTO DIFF WBC CPT-4: 37949 11/09/2018 LIPID PANEL CPT-4: 51450 11/09/2018 PROTHROMBIN TIME CPT-4: 98099 11/09/2018 THROMBOPLASTIN TIME PARTIAL CPT-4: 72711 11/09/2018 THER/PROPH/DIAG INJ SC/IM CPT-4: 16168 09/23/2018 KETOROLAC TROMETHAMINE INJ CPT-4: J1885 09/23/2018 ROUTINE VENIPUNCTURE CPT-4: 32992 2018 ASSAY THYROID STIM HORMONE CPT-4: 69803 2018 COMPREHEN METABOLIC PANEL CPT-4: 57061 2018 COMPLETE CBC W/AUTO DIFF WBC CPT-4: 27276 2018 LIPID PANEL CPT-4: 30283 2018 CEFTRIAXONE SODIUM INJECTION CPT-4: J0696 04/14/2018 THER/PROPH/DIAG INJ SC/IM CPT-4: 54941 04/14/2018 CEFTRIAXONE SODIUM INJECTION CPT-4: J0696 03/18/2018 THER/PROPH/DIAG INJ SC/IM CPT-4: 05540 03/18/2018 THER/PROPH/DIAG INJ SC/IM CPT-4: 34293 01/26/2018 KETOROLAC TROMETHAMINE INJ CPT-4: J1885 01/26/2018 CEFTRIAXONE SODIUM INJECTION CPT-4: J0696 12/22/2017 THER/PROPH/DIAG INJ SC/IM CPT-4: 73352 12/22/2017 ROUTINE VENIPUNCTURE CPT-4: 81997 11/14/2016 COMPLETE CBC W/AUTO DIFF WBC CPT-4: 78695 11/14/2016 PT/PTT CPT-4: 3305082 11/14/2016 Vital Signs Date Vital 05/02/2019 Blood Pressure 1: 132/80 Code: 8480-6 [...] 1: 134/82 Code: 8480-6 BMI: 23.9 Code: 10182-0 Heart Rate 1: 100 bpm Height: 6'4" [...] 1: 138/70 Code: 8480-6 BMI: 22.6 Code: 53211-4 Heart Rate 1: 97 bpm Height: 6'4" [...] 1: 142/80 Code: 8480-6 BMI: 20.9 Code: 87073-2 Heart Rate 1: 108 bpm Height: 6'4" Respiratory Rate: 20 bpm SpO2: 97% Tempera ture: 36.6 (C) / 97.9 (F) Weight: 172 lbs 01/26/2018 Blood Pressure 1: 130/82 Code: 8480-6 Heart Rate 1: 98 bpm Respiratory Rate: 18 bpm SpO2: 99% Temperature: 35.7 (C) / 96.3 (F) We ight: 175 lbs 12/22/2017 Blood Pressure 1: 124/68 Code: 8480-6 BMI: 22.3 Code: 19054-1 Heart Rate 1: 100 bpm Height: 6'4" Respiratory Rate: 20 bpm SpO2: 98% Tempera ture: 36.7 (C) / 98.0 (F) Weight: 183 lbs 10/06/2017 Blood Pressure 1: 130/86 Code: 8480-6 BMI: 21.1 Code: 14756-4 Heart Rate 1: 92 bpm Height: 6'4" Respiratory Rate: 18 bpm SpO2: 98% Tempera ture: 36.9 (C) / 98.5 (F) Weight: 173 lbs 02/03/2017 Blood Pressure 1: 144/92 Code: 8480-6 BMI: 20.8 Code: 19109-2 Heart Rate 1: 88 bpm Height: 6'4" Respiratory Rate: 20 bpm SpO2: 97% Tempera ture: 36.7 (C) / 98.1 (F) Weight: 171 lbs 11/25/2016 Blood Pressure 1: 126/84 Code: 8480-6 Heart Rate 1: 76 bpm Respiratory Rate: 20 bpm SpO2: 96% Temperature: 36.9 (C) / 98.4 (F) We ight: 170 lbs 11/14/2016 Blood Pressure 1: 126/82 Code: 8480-6 BMI: 20.7 Code: 78251-7 Heart Rate 1: 86 bpm Height: 6'4" Respiratory Rate: 18 bpm SpO2: 96% Tempera ture: 35.8 (C) / 96.5 (F) Weight: 170 lbs 04/02/2016 Blood Pressure 1: 124/78 Code: 8480-6 Heart Rate 1: 88 bpm Respiratory Rate: 24 bpm SpO2: 97% Temperature: 36.1 (C) / 97.0 (F) We ight: 161 lbs 11/29/2015 Blood Pressure 1: 124/68 Code: 8480-6 BMI: 19.2 Code: 71030-0 Heart Rate 1: 94 bpm Height: 6'4" Respiratory Rate: 18 bpm SpO2: 97% Tempera ture: 36.1 (C) / 97.0 (F) Weight: 158 lbs 06/27/2015 Blood Pressure 1: 128/78 Code: 8480-6 BMI: 18.7 Code: 75304-4 Heart Rate 1: 72 bpm Height: 6'4" Respiratory Rate: 22 bpm SpO2: 98% Tempera ture: 35.9 (C) / 96.6 (F) Weight: 154 lbs 05/24/2015 Blood Pressure 1: 112/78 Code: 8480-6 BMI: 19.7 Code: 58906-5 Heart Rate 1: 78 bpm Height: 6'4" Respiratory Rate: 24 bpm SpO2: 97% Tempera ture: 36.4 (C) / 97.6 (F) Weight: 162 lbs Functional Status No Functional Status data Reason For Visit Reason For Visit Effective Dates Notes follow up 05/02/2019 follow up 04/25/2019 post [...] care Encounters Encounter Performer Location Codes Date ([id number]) OFFICE/OUTPATIENT VISIT EST Diagnosis: Acute dermatitis[ICD10: L30.9] Diagnosis: DM w/o complication type II, uncontrolled[ICD10: E11.65] Diagnosis: Right leg DVT[ICD10: I82.401] Janneth De Jesus [employer] CPT-4: 71768 05/02/2019 ([id number]) OFFICE/OUTPATIENT VISIT EST Diagnosis: DM w/o complication type II, uncontrolled[ICD10: E11.65] Diagnosis: Allergic dermatitis[ICD10: L23.9] Diagnosis: Right leg DVT[ICD10: I82.401] Diagnosis: Paroxysmal atrial fibrillation[ICD10: I48.0] Diagnosis: Right calf pain[ICD10: M79.661] Janneth [facility] CPT-4: 71502 04/25/2019 ([id number]) OFFICE/OUTPATIENT VISIT EST Diagnosis: DM w/o complication type II, uncontrolled[ICD10: E11.65] Diagnosis: 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, implant, or graft[ICD10: T85.818A] Diagnosis: Essential hypertension[ICD10: I10] Janneth [employer] [facility] CPT-4: 10329 04/11/2019 ([id number]) OFFICE/OUTPATIENT VISIT EST Diagnosis: Sinus tachycardia[ICD10: R00.0] Diagnosis: Folliculitis[ICD10: L73.9] Janneth HARDY [employer] CPT-4: 72526 03/01/2019 ([id number]) OFFICE/OUTPATIENT VISIT EST Diagnosis: Cellulitis of left lower limb[ICD10: L03.116] Diagnosis: Tendinitis of left peroneus longus tendon[ICD10: M76.72] [facility] 96843 11/18/2018 ([id number]) OFFICE/OUTPATIENT VISIT EST Diagnosis: Cellulitis of left foot[ICD10: L03.116] Diagnosis: Spontaneous ecchymoses[ICD10: R23.3] Diagnosis: Venous insufficiency (chronic) (peripheral)[ICD10: I87.2] Diagnosis: Mixed hyperlipidemia[ICD10: E78.2] [facility] 97695 11/09/2018 ([id number]) OFFICE/OUTPATIENT VISIT EST Diagnosis: Venous insufficiency (chronic) (peripheral)[ICD10: I87.2] Diagnosis: Cellulitis of left lower limb[ICD10: L03.116] Diagnosis: Pain in right foot[ICD10: M79.671] [facility] C[facility]: 34573 10/13/2018 ([id number]) OFFICE/OUTPATIENT VISIT EST Diagnosis: Low back pain[ICD10: M54.5] Vania WARD S. Brandon [facility] CPT-4: 60240 09/23/2018 ([id number]) OFFICE/OUTPATIENT VISIT EST Diagnosis: Gastro-esophageal reflux disease without esophagitis[ICD10: K21.9] Diagnosis: Dysphagia, pharyngoesophageal phase[ICD10: R13.14] Janneth MERINOLINE L[facility] CPT-[facility]: 36219 09/06/2018 ([id number]) OFFICE/OUTPATIENT VISIT EST Diagnosis: Tinea corporis[ICD10: B35.4] Vania WARD SLisandra SHRESTHA [facility] CPT-4: 89715 07/15/2018 ([id number]) OFFICE/OUTPATIENT VISIT EST Diagnosis: Cellulitis of left toe[ICD10: L03.032] Diagnosis: Mixed hyperlipidemia[ICD10: E78.2] Mandy Hollins REGINE RAY S. CANDACE [facility] CPT-4: 01605 2018 OFFICE/OUTPATIENT VISIT EST Diagnosis: Cellulitis of left toe[ICD10: L03.032] Diagnosis: Unspecified disturbances of skin sensation[ICD10: R20.9] Mandy SHRESTHA DO [facility] CPT-4: 60383 04/14/2018 ([id number]) OFFICE/OUTPATIENT VISIT EST Diagnosis: Cellulitis of left toe[ICD10: L03.032] Diagnosis: Insomnia, unspecified[ICD10: G47.00] Vania SHRESTHA DO [facility] CPT-4: 13631 03/18/2018 ([id number]) OFFICE/OUTPATIENT VISIT EST Diagnosis: Other postprocedural complications and disorders of the circulatory system, not elsewhere classified[ICD10: I97.89] Diagnosis: Rash and other nonspecific skin eruption[ICD10: R21] Diagnosis: Pain in right leg[ICD10: M79.604] Vania SHRESTHA [employer] [facility] CPT-4: 79443 01/26/2018 ([id number]) OFFICE/OUTPATIENT VISIT EST Diagnosis: Other postprocedural complications and disorders of the circulatory system, not elsewhere classified[ICD10: I97.89] Diagnosis: Cellulitis of right lower limb[ICD10: L03.115] Vania SHRESTHA DO [facility] CPT-4: 68793 12/22/2017 ([id number]) OFFICE/OUTPATIENT VISIT EST Diagnosis: Acute sinusitis, unspecified[ICD10: J01.90] Diagnosis: Unspecified disturbances of skin sensation[ICD10: R20.9] Vania SHRESTHA DO [facility] CPT-4: 98408 10/06/2017 ([id number]) OFFICE/OUTPATIENT VISIT EST Diagnosis: Primary insomnia[ICD10: F51.01] Diagnosis: Pain in left shoulder[ICD10: M25.512] Diagnosis: Poisoning by other parasympatholytics [anticholinergics and antimuscarinics] and spasmolytics, accidental (unintentional), sequela[ICD10: T44.3X1S] Janneth SHRESTHA [employer] [facility] CPT-4: 29331 02/03/2017 OFFICE/OUTPATIENT VISIT EST Diagnosis: Insomnia, unspecified[ICD10: G47.00] Diagnosis: Constipation, unspecified[ICD10: K59.00] Diagnosis: Spontaneous ecchymoses[ICD10: R23.3] Diagnosis: Pain in left foot[ICD10: M79.672] Vania SHRESTHA [facility] CPT-4: 42240 11/25/2016 OFFICE/OUTPATIENT VISIT EST Diagnosis: Insomnia, unspecified[ICD10: G47.00] Diagnosis: Constipation, unspecified[ICD10: K59.00] Diagnosis: Spontaneous ecchymoses[ICD10: R23.3] Diagnosis: Other specified local infections of the skin and subcutaneous tissue[ICD10: L08.89] Vania MERINOLINE Liza SHRESTHA [facility] CPT-4: 99 213 11/14/2016 ([id number]) OFFICE/OUTPATIENT VISIT EST Diagnosis: Acute upper respiratory infection, unspecified[ICD10: J06.9] Ester [facility]OLINE [facility]: 45592 04/02/2016 ([id number]) OFFICE/OUTPATIENT VISIT EST Diagnosis: Acute upper respiratory infection, unspecified[ICD10: J06.9] Ester NOR[facility]ODQUELINE [facility]: 87007 11/29/2015 ([id number]) OFFICE/OUTPATIENT VISIT EST Diagnosis: Pain in thoracic spine[ICD10: M54.6] Diagnosis: Paresthesia of skin[ICD10: R20.2] Diagnosis: Dysphagia, unspecified[ICD10: R13.10] Ester Grande THERON KUHN Lisandra [facility] C[facility]: 65297 06/27/2015 ([id number]) OFFICE/OUTPATIENT VISIT NEW Diagnosis: Pain in left leg[ICD10: M79.605] Diagnosis: Male erectile dysfunction, unspecified[ICD10: N52.9] Diagnosis: Dysphagia, unspecified[ICD10: R13.10] Ester KUHN Lisandra [facility] C[facility]: 48884 05/24/2015 Plan of Care Planned Activity Notes Codes Status Date Visit Diagnosis Plan: Acute dermatitis Discussion: Fin [...] ICD-9 : 250.02 ICD-10 : E11.65 05/02/2019 Patient Education: metoprolol succinate- [employer] Co upon [id number] https://www.[employer]/[place]/resources/getResource/61/93441qo8-e8t4-301e-c2 Completed 05/02/2019 Visit Diagnosis Plan: Paroxysmal atrial [...] E11.65 04/25/2019 Appointment: [facility]anneth [facility]restha [facility]el[facility] [address] [facility] [facility] 04/25/2019 Patient Education: Metformin Patient Savings Message Alert Completed 04/25/2019 Patient Education: prednisone- [employer] Coupon [id number] https://www.[employer]/[place]/resources/getResource/61/0zx57bn6-k6jg-4a74-gg Completed 04/25/2019 Visit Diagnosis Plan: DM w/o [...] T85.818A 04/11/2019 Appointment: Janneth Shrestha WPtel: [address] [facility] [facility] 04/11/2019 Patient Education: metoprolol succinate- [employer] Co upon [id number] https://www.[employer]/[place]/resources/getResource/61/kn759663-87vo-4u79-85 Completed 04/11/2019 Patient Education: Metformin Patient Savings Message Alert Completed 04/11/2019 Patient Education: cephalexin- [employer] Coupon [id number] https://www.[employer]/[place]/resources/getResource/61/0kkf3544-4g7w-1358-dn Completed 04/11/2019 Visit Diagnosis Plan: Folliculitis Discussion: Bactrim and topical bactroban ICD-9 : 704.8 ICD-10 : L73.9 03/01/2019 Visit Diagnosis Plan: Sinus tachycardia Discussion: St art low dose metoprolol ER 25mg daily Monitor pulse Sees Cardiology next month ICD-9 : 427.89 ICD-10 : R00.0 03/01/2019 Appointment: Janneth Shrestha WPtel[facility] [address] [facility] [facility] 03/01/2019 Patient Education: mupirocin- [employer] Coupon [id number] https://www.[employer]/[place]/resources/getResource/61/bq736fu6-30ii-827j-eo Completed 03/01/2019 Appointment: Janneth Shrestha WPtel: [address] [place], [place] [address] [place] CANCELED 12/20/2018 Visit Diagnosis Plan: Cellulitis [...] ICD-10 : M76.72 11/18/2018 Appointment: Vania García [address] [place] [address] [place] CANCELED 11/18/2018 Appointment: Janneth Shrestha WPtel: [address] [place], [place] [id number] [place] FOLLOW UP 11/18/2018 Patient Education: doxycycline monohydrate- [employer] Coupon [id number] https://www.[employer]/samplemd/resources/getResource/61/ibm64741-m9z1-93c8-1x Completed 11/18/2018 Patient Education: prednisone- [employer] Coupon [id number] https://www.[employer]/samplemd/resources/getResource/61/03ut8c2o-0tu2-9143-vc Completed 11/18/2018 Care Plan: Referral Order SNOMED-CT : 30 [id number] Pending 11/18/2018 Visit Diagnosis Plan: Venous insufficiency [...] evaluated in an ED whether it be [place] or wherever he's traveling. discussed the risk [...] ICD-10 : R23.3 11/09/2018 Appointment: Vania García [address] [place], [place] [address] ACUTE ILLNESS 11/09/2018 Patient Education: clindamycin HCl- [employer] Coupon [id number] https://www.[employer]/samplemd/resources/getResource/61/18bv67s0-by83-1ut7-1m Completed 11/09/2018 Appointment: Janneth Shrestha WPtel: [facility] [place] CANC[facility]ED 10/19/2018 Visit Diagnosis Plan: Pain [...] ICD-10 : L03.116 10/13/2018 Appointment: Vania García [facility] Patient cant pay copay till when he [...] ICD-10 : M54.5 09/23/2018 Appointment: Vania García [facility] ACUTE ILLNESS 09/23/2018 Patient Education: Medrol ([place]ren[place])- [employer] Coupon [phone] https://www.[employer]/[place]/resources/getResource/61/auzm184i-6551-42p8-42 Completed 09/23/2018 Visit Diagnosis Plan: Dysphagia, pharyngoesophageal ph ase Discussion: Referral for EGD ICD-9 : 787.24 ICD-10 : R13.14 09/06/2018 Visit Diagnosis Plan: Gastro-esophageal reflux disease without esophagitis Discussion: Start omeprazole ICD-9 : 530.81 ICD-10 : K21.9 09/06/2018 Appointment: Janneth Shrestha WPtel: [facility] [facility] ACUTE ILLNESS 09/06/2018 Patient Education: omeprazole- [employer] Coupon 50832 [id number] https://www.[employer]/[place]/resources/getResource/61/869bf516-17f3-027v-54 Completed 09/06/2018 Care Plan: Referral Order SNOMED-CT : 30 2849110 Pending 09/06/2018 Visit Diagnosis Plan: Tinea corporis Discussion: nysta tin to be used bid until rash gone and then an additional 2 days. diflucan every 3 days for 3 doses. keep area clean and dry with no moisturizers. call office if no improvement in 2 weeks or if worsening. ICD-9 : 110.5 ICD-10 : B35.4 07/15/2018 Appointment: [facility]Vania Afshin [facility] [facility] 07/15/2018 Patient Education: nystatin- [employer] Coupon [id number] https://www.[employer]/samplemd/resources/getResource/61/12jjv906-s1tv-07wl-4z Completed 07/15/2018 Patient Education: Plavix- [employer] Coupon [id number] https://www.[employer]/sampleSP3H/resources/getResource/61/80vq7g14-m35j-38zt-13 fa-w233i7954159.pdf Completed 07/15/2018 Patient Education: cyclobenzaprine- [employer] Coupon [id number] https://www.[employer]/sampleSP3H/resources/getResource/61/95748z4j-8o99-40o7-hb Completed 07/15/2018 Visit Diagnosis Plan: Cellulitis of [...] ICD-10 : L03.032 2018 Appointment: [facility] [facility] FOLLOW UP 2018 Patient Education: mupirocin- [employer] Coupon [id number] https://www.[employer]/samplemd/resources/getResource/61/g0av49t8-5253-6298-0c Completed 2018 Visit Diagnosis Plan: Cellulitis of [...] : R20.9 04/14/2018 Appointment: Mandy Hollins [address] FOLLOW UP 04/14/2018 Visit Diagnosis Plan: [...] : G47.00 03/18/2018 Appointment: Vania García [address] ACUTE ILLNESS 03/18/2018 Patient Education: cyclobenzaprine- [employer] Coupon [id number] https://www.[place].[employer]/samplemd/resources/getResource/61/8902u324-1gn5-460d-x1 Completed 03/18/2018 Visit Diagnosis Plan: Rash and other nonspecific skin eruption Discussion: triamcinolone ordered to be used as directed. ICD-9 : 782.1 ICD-10 : R21 01/26/2018 Visit Diagnosis Plan: Other postprocedur al complications and disorders of the circulatory system, not elsewhere classified Discussion: discussed with dr. shrestha and patient was instructed to contact the [facility] due to uncontrolled pain, continued erythema, patient needs to be re-evaluated by the surgeon. 60 mg toradol given to patient. patient verbalized understanding and voiced he will contact them today for an appointment. ICD-9 : 997.1 ICD-10 : I97.89 01/26/2018 Appointment: Vania García 504 [facility] Hospital Follow Up 01/26/2018 Appointment: Janneth Shrestha WPtel: [phone] [id number] 2nd LM NO SHOW 01/06/2018 Visit Diagnosis [...] : I97.89 12/22/2017 Appointment: Vania García 504 [facility] ACUTE ILLNESS 12/22/2017 Visit Diagnosis Plan: [...] : J01.90 10/06/2017 Appointment: Vania García 504 [facility] ACUTE ILLNESS 10/06/2017 Patient Education: Patient Medication Summary Completed 10/06/2017 Appointment: Vania García [facility] ER Follow UP 08/17/2017 Appointment: Vania García [address] [place], [place] [id number] [place] CANCELED 07/03/2017 Appointment: Janneth Shrestha WPtel: [address] [facility] [place] canceled at 8:05 this morning. 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 ICD-9 : 729.5 ICD-10 : M79.672 11/25/2016 Visit Diagnosis Plan: Insomnia, unspecified Recommenda tions: resolved with lunesta. continue taking as prescribed. ICD-9 : 780.52 ICD-10 : G47.00 11/25/2016 Appointment: Vania García [facility] [facility] 11/25/2016 Patient Education: Patient Medication [...] ICD-10 : K59.00 11/14/2016 Appointment: Vania García 504 [facility] ACUTE ILLNESS 11/14/2016 Patient Education: Patient Medication Summary Completed 11/14/2016 Visit Diagnosis Plan: Acute upper respiratory infectio n, unspecified Discussion: Rxs as above Continue OTC and supportive meds Encouraged smoking cessation Follow up PRN ICD-9 : 465.9 ICD-10 : J06.9 04/02/2016 Appointment: Ester Grande [address] [place] [id number] ACUTE ILLNESS 04/02/2016 Patient Education: Patient Medication Summary Completed 04/02/2016 Visit Plan: Rxs as above Supportive care reviewed Follow up PRN 11/29/2015 Appointment: Ester Grande [address] [facility] 11/27 confirmed~ ACUTE ILLNESS 11/29/2015 Patient Education: Patient Medication [...] for pain 06/27/2015 Appointment: Ester Grande [address] [facility] 06/25 lm ~ 06/26 phone not on~ FOLLOW UP 06/27/2015 Patient Education: Patient Medication Summary Completed 06/27/2015 Care Plan: X-RAY EXAM RIBS UNI 2 VIEWS L OINC : 60810-8 Pending 06/27/2015 Referral: Héctor Woodard WPtel: [address] [facility] 05/29 [facility]uled with [facility] Appointment Re quested 06/26/2015 Referral: Cameron Khanna WPtel: [address] Referral Initiated 06/11/2015 Referral: Marco Antonio Green WPtel: [address] [id number] 05/30/15 Needs to be there at pre op time per ~ Initiated 06/04/2015 Visit Plan: Will get all necessary refer rals set up - CTS, Uro and G/S Swallow study and routine labs ordered Will further investigate left leg pain with EMG if not cardio related 05/24/2015 Appointment: Ester Grande [address] NEW PATIENT 05/24/2015 Patient Education: Patient Medication Summary Completed 05/24/2015 Care Plan: Referral Order SNOMED-CT : 30 [id number] Pending 05/24/2015 Care Plan: Referral Order SNOMED-CT : 30 9026749 Pending 05/24/2015 Care Plan: Referral Order SNOMED-CT : 30 5109574 Pending 05/24/2015 Referral: Sudheer Gann WPtel: [address] [place] [address] [place] Referral Appointment Requested Referral: Alfonzo Andujar WPtel: [address] [place] [address] [place] Referral Initiated Referral: [facility] [address] [id number] [place] Referral Completed Referral: Cameron Khanna WPtel: [address] [place] [address] [place] Referral Appointment Requested Referral: Brianna Rose WPtel: [address] [place] [address] [place] Referral Initiated Referral: Héctor Woodard WPtel: [address] [place] [address] [place] 05/24/15 [facility] suggested he see another card. ~sl Initiated Referral: Alfonzo Andujar WPtel: [address] [facility] [place] Referral Appointment Requested Referral: Marco Antonio Green WPtel: [address] [place] [address] [place] Referral Appointment Requested Instructions Comment . [...]
--- OUTSIDE RECORDS SUMMARY | 2019-08-06 10:25 | XMS REPORT | CCD ---
Author Author [place] Organization [facility] SHRESTHA [facility] Address [address] [place] [address] Phone Unavailable Care Team Providers Care Electrolysist Name Role Phone Janneth Shrestha D.O., PP Unavailable CCM Unavailable Summary Purpose Interface Exchange Insurance Providers Payer name Policy type / Coverage type Covered alliance party ID Effective Begin Date Effective End Date Blue Cross Blue Shield Blue Cross/Blue Shield [id number] Unknown Family History Family History data not found Social History Social History Element Codes Description Effective Dates Marital status Unknown 05/24/2015 Number of children Unknown 2 05/24/2015 Employment Unknown Currently employed 05/24/[address]: 59125399 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 [...] 50 mg tablet,extended release 24 hr RxNorm: 678939 1 Tablet(s) Oral QD 08/01/2019 10/30/2019 Active Xarelto 20 mg tablet RxNorm: 2425571 1 Tablet(s) Oral QD 04/25/2019 No Stop Date Active Plavix 75 mg tablet RxNorm: 879371 TAKE ONE TABLET BY MOUTH DAILY 0 04/25/2019 04/26/2019 Inactive amiodarone 200 mg tablet RxNorm: 320782 1 Tablet(s) Oral QD No Stop Date Active metformin ER 500 mg 24 hr tablet,extended release RxNorm: 18 72897 1 Tablet(s) Oral two times a day 04/25/2019 07/24/2019 Active Plavix 75 mg tablet RxNorm: 772135 TAKE ONE TABLET BY MOUTH DAILY 0 04/25/2019 04/24/2019 Inactive prednisone 20 mg tablet RxNorm: 620639 1 Tablet(s) Oral two jn es a day 04/25/2019 05/01/2019 Inactive aspirin 81 mg tablet,delayed release RxNorm: 567274 1 Tablet(s) Oral QD 04/11/2019 No Stop Date Active pantoprazole 40 mg tablet,delayed release RxNorm: 474272 1 Tabl et(s) Oral QAM 04/11/2019 No Stop Date Active Vitamin C 1,000 mg tablet RxNorm: 841622 1 Tablet(s) Oral QD 2019 No Stop Date Active Xarelto 15 mg tablet RxNorm: 9082576 1 Tablet(s) Oral QD 04/11/2019 0 04/24/2019 Inactive metformin ER 500 mg 24 hr tablet,extended release RxNorm: 18 11511 1 Tablet(s) Oral QD 04/11/2019 04/24/2019 Inactive cephalexin 500 mg capsule RxNorm: 409090 1 Capsule(s) Oral thre e times a day 04/11/2019 04/18/2019 Inactive metoprolol succinate ER 50 mg tablet,extended release 24 hr RxNorm: 641123 1 Tablet(s) Oral QD replaces 25mg dose 04/11/2019 05/01/2019 Inactive cyclobenzaprine 10 mg tablet RxNorm: 662157 TAKE ONE TA BLET BY MOUTH EVERY NIGHT AT BEDTIME NEEDED 03/11/2019 No Stop Date Active mupirocin 2 % topical ointment RxNorm: 718845 Applicati on Topical two times a day 03/01/2019 04/10/2019 Inactive metoprolol succinate ER 25 mg tablet,extended release 24 hr RxNorm: 970303 1 Tablet(s) Oral QD 03/01/2019 04/24/2019 Inactive Bactrim DS 800 mg-160 mg tablet RxNorm: 423476 1 Tablet(s) Oral two times a day 03/01/2019 03/11/2019 Inactive omeprazole 40 mg capsule,delayed release RxNorm: 809850 TAKE ONE CAPSULE BY MOUTH EVERY NIGHT AT BEDTIME FOR REFLUX 01/10/2019 No Stop Date Active cyclobenzaprine 10 mg tablet RxNorm: 453999 TAKE ONE TA BLET BY MOUTH EVERY NIGHT AT BEDTIME NEEDED 01/10/2019 03/10/2019 Inactive Plavix 75 mg tablet RxNorm: 015717 TAKE ONE TABLET BY MOUTH DAILY 1 03/12/2018 04/24/2019 Inactive tramadol 50 mg tablet RxNorm: 177367 1 Tablet(s) Oral f our times a day as needed 01/03/2019 01/03/2019 Inactive doxycycline monohydrate 100 mg capsule RxNorm: 4676140 1 Capsule(s) Oral two times a day 11/22/2018 12/13/2018 Inactive prednisone 20 mg tablet RxNorm: 690119 1 Tablet(s) Oral two jn es a day 11/22/2018 11/29/2018 Inactive Levaquin 750 mg tablet RxNorm: 309254 Tablet(s) Oral 11/18/201802/28 Inactive prednisone 20 mg tablet RxNorm: 711698 1 Tablet(s) Oral two jn es a day 11/18/2018 11/21/2018 Inactive tramadol 50 mg tablet RxNorm: 168771 Tablet(s) Oral 11/18/20182018 Inactive doxycycline monohydrate 100 mg capsule RxNorm: 2142531 1 Capsule(s) Oral two times a day 11/18/2018 11/21/2018 Inactive Plavix 75 mg tablet RxNorm: 584674 TAKE ONE TABLET BY MOUTH DAILY 0 11/10/2018 01/08/2019 Inactive clindamycin HCl 300 mg capsule RxNorm: 220899 1 Capsule (s) Oral three times a day 11/09/2018 11/19/2018 Inactive Keflex 500 mg capsule RxNorm: 174587 1 Capsule(s) PO BID 10/13/2018 0 10/22/2018 Inactive Medrol (Brenden) 4 mg tablets in a dose pack RxNorm: 611420 Tablet(s) take as directed PO 09/23/2018 10/12/2018 Inactive omeprazole 40 mg capsule,delayed release RxNorm: 608130 1 Capsule(s) PO QHS for reflux 09/06/2018 11/04/2018 Inactive cyclobenzaprine 10 mg tablet RxNorm: 044949 1 Tablet(s) PO QHS as needed 07/15/2018 10/12/2018 Inactive Diflucan 150 mg tablet RxNorm: 359697 1 Tablet(s) PO Q72H 07/15/2018 09/05/2018 Inactive nystatin 100,000 unit/gram topical cream RxNorm: 597218 1 Gram( s) TOP BID 07/15/2018 09/05/2018 Inactive Plavix 75 mg tablet RxNorm: 705391 1 Tablet(s) PO QD 07/15/201810/12 Inactive cyclobenzaprine 10 mg tablet RxNorm: 179172 1 Tablet(s) PO QHS as needed 06/10/2018 06/09/2018 Inactive cyclobenzaprine 10 mg tablet RxNorm: 181974 TAKE ONE TA BLET BY MOUTH EVERY NIGHT AT BEDTIME NEEDED 05/10/2018 06/10/2018 Inactive mupirocin 2 % topical ointment RxNorm: 575664 1 Application TOP BID 2018 05/25/2018 Inactive 22 gram cyclobenzaprine 10 mg tablet RxNorm: 407179 1 Tablet(s) PO QHS as needed 04/14/2018 06/09/2018 Inactive doxycycline hyclate 100 mg tablet RxNorm: 0481706 1 Tablet(s) PO BI D 04/14/2018 04/23/2018 Inactive cyclobenzaprine 10 mg tablet RxNorm: 632329 1 Tablet(s) PO QHS as needed 04/07/2018 04/13/2018 Inactive Bactrim DS 800 mg-160 mg tablet RxNorm: 462146 1 Tablet(s) PO BID 0 03/18/2018 03/27/2018 Inactive cyclobenzaprine 10 mg tablet RxNorm: 882104 1 Tablet(s) PO QHS as needed 03/18/2018 04/06/2018 Inactive triamcinolone acetonide 0.1 % topical cream RxNorm: 1198312 APPLY TO AFFECTED AREA(S) TWO TIMES A DAY 02/03/2018 02/12/2018 Inactive triamcinolone acetonide 0.1 % topical cream RxNorm: 4462327 1 Application TOP BID 01/26/2018 02/02/2018 Inactive Medrol (Brenden) 4 mg tablets in a dose pack RxNorm: 878885 TAKE BY MOUTH INSTRUCTED - PER PACKAGE INSTRUCTIONS 12/11/2017 12/16/2017 Inactive Medrol (Brenden) 4 mg tablets in a dose pack RxNorm: 598562 Tablet(s) P O 10/06/2017 12/10/2017 Inactive Lunesta 3 mg tablet RxNorm: 504246 1 Tablet(s) PO QHS 11/25/201608/2016 Inactive Lunesta 3 mg tablet RxNorm: 441608 1 Tablet(s) PO QHS 11/14/201610/2016 Inactive Bactrim DS 800 mg-160 mg tablet RxNorm: 845382 1 Tablet(s) PO BID 0 11/14/2016 11/23/2016 Inactive Epi E-Z Pen 0.3 mg/0.3 mL injection, auto-injector RxNorm: 1 021716 Milliliter(s) IM Use as Directed 06/25/2016 09/05/2018 Inactive amoxicillin 875 mg tablet RxNorm: 431672 1 Tablet(s) PO BID 017 04/11/2016 Inactive prednisone 20 mg tablet RxNorm: 308993 1 Tablet(s) PO BID 04/02/2016 04/06/2016 Inactive azithromycin 250 mg tablet RxNorm: 770784 2 Tablet(s) P O on day one then 1 tab on days 2-5 11/29/2015 11/28/2015 Inactive Medrol (Brenden) 4 mg tablets in a dose pack RxNorm: 857423 Take as directed 11/29/2015 11/13/2016 Inactive meloxicam 15 mg tablet RxNorm: 982433 1 Tablet(s) PO QD 07/02/2015 Inactive Chantix Starting Month Box 0.5 mg (11)-1 mg (42) table ts in dose pack RxNorm: 133882 Tablet(s) PO As Directed 06/20/2015 07/10/2015 Inactive omeprazole 40 mg capsule,delayed release RxNorm: 355592 1 Capsu le(s) PO QD 05/31/2015 11/13/2016 Inactive omeprazole 40 mg capsule,delayed release RxNorm: 980687 1 Capsu le(s) PO QD 05/31/2015 05/30/2015 Inactive Lactobacillus acidophilus-Bifidobacterium longum oral RxNorm: oral No Start Date Active Multivitamin And Mineral oral RxNorm: oral No Start Date Active Wellbutrin SR 150 mg tablet,sustained-release RxNorm: 083471 1 Tablet(s) PO BID No Start Date 11/13/2016 Inactive gabapentin 100 mg capsule RxNorm: 008750 1 Capsule(s) PO TID No Sta rt Date 03/17/2018 Inactive Chantix Starting Month Box 0.5 mg (11)-1 mg (42) table ts in dose pack RxNorm: 080423 Tablet(s) PO As Directed No Start Date 06/19/2015 Inactive Eliquis 5 mg tablet RxNorm: 3461087 1 Tablet(s) PO BID No Start Date 03/17/2018 Inactive aspirin 325 mg tablet RxNorm: 533977 1 Tablet(s) PO QD No Start Date 11/13/2016 Inactive clindamycin HCl 300 mg capsule RxNorm: 920122 2 Capsule(s) PO Q8H N o Start Date 03/17/2018 Inactive Fish Oil 1,000 mg (120 mg-180 mg) capsule RxNorm: 1 Caps ule(s) PO QD No Start Date 09/05/2018 Inactive aspirin 81 mg tablet RxNorm: 139648 1 Tablet(s) PO QD No Start Date 1 03/28/2017 Inactive Fish Oil 1,000 mg capsule RxNorm: 1 Capsule(s) PO QD No Start Date 11/13/2016 Inactive Baby Aspirin 81 mg chewable tablet RxNorm: 637164 1 Tablet(s) P O BID No Start Date 02/02/2017 Inactive Xarelto 10 mg tablet RxNorm: 9392782 1 Tablet(s) PO QD No Start Date 01/25/2018 Inactive tramadol 50 mg tablet RxNorm: 247012 1-2 Tablet(s) PO Q6H No Start Date 03/17/2018 Inactive meloxicam 15 mg tablet RxNorm: 976783 1 Tablet(s) PO QD No Start Da te 07/01/2015 Inactive Epi E-Z Pen 0.3 mg/0.3 mL injection, auto-injector RxNorm: 1 159057 Milliliter(s) IM Use as Directed No Start Date 06/24/2016 Inactive Plavix 75 mg tablet RxNorm: 229869 1 Tablet(s) PO QD No Start Date Inactive Medication Administered No Medication Administered data Immunizations No Immunization data Results Observation Observation Code Item Item Code Result Date S vice Location COMPREHENSIVE METABOLIC 57725 AST 25 U/L 2018 Unknown COMPREHENSIVE METABOLIC 43715 ALT 28 U/L 2018 Unknown COMPREHENSIVE METABOLIC 56367 BUN 13 mg/dL 2018 Unknown COMPREHENSIVE METABOLIC 44075 ALBUMIN 4.2 g/dL 2018 Unknown COMPREHENSIVE METABOLIC 65771 CHLORIDE 104 mmol/L 11/09 Unknown COMPREHENSIVE METABOLIC 98586 Bili Total 0.5 mg/dL 11/09 Unknown COMPREHENSIVE METABOLIC 94926 ALK PHOS 72 U/L 2018 Unknown COMPREHENSIVE METABOLIC 91283 SODIUM 139 mmol/L 11/09 Unknown COMPREHENSIVE METABOLIC 56064 CREATININE 0.98 mg/dL 10/18 Unknown COMPREHENSIVE METABOLIC 57001 CALCIUM 9.1 mg/dL 2018 Unknown COMPREHENSIVE METABOLIC 84880 POTASSIUM 3.7 mmol/L 11/09 Unknown COMPREHENSIVE METABOLIC 03220 Total Protein 7.2 g/dL Unknown COMPREHENSIVE METABOLIC 83493 Glucose 137 mg/dL 2018 Unknown COMPREHENSIVE METABOLIC 07247 Bicarbonate 24 mmol/L 10/18 Unknown COMPREHENSIVE METABOLIC 14003 AGAP 11 mmol/L 2018 Unknown COMPLETE BLOOD COUNT [id number] WBC 4.6 10e9/L 11/10/19 19 Unknown COMPLETE BLOOD COUNT [id number] RBC 4.88 10e12/L 2018 Unknown COMPLETE BLOOD COUNT 1085027 HEMOGLOBIN 14.7 g/dL 11/10/19 19 Unknown COMPLETE BLOOD COUNT [id number] HEMATOCRIT 43.7 % 11/10/19 19 Unknown COMPLETE BLOOD COUNT [id number] MCV 89.5 fL 9 Unknown COMPLETE BLOOD COUNT 5705823 MCH 30.1 pg 9 Unknown COMPLETE BLOOD COUNT 7695513 MCHC 33.6 g/dL 9 Unknown COMPLETE BLOOD COUNT [id number] PLATELET COUNT 179 10e9/L Unknown COMPLETE BLOOD COUNT [id number] Mean Plt Volume 11.6 fL Unknown COMPLETE BLOOD COUNT 8410087 Neut Auto 55.5 % 9 Unknown COMPLETE BLOOD COUNT [id number] Lymph Auto 28.7 % 11/10/19 19 Unknown COMPLETE BLOOD COUNT [id number] [place] Auto 7.9 % 9 Unknown COMPLETE BLOOD COUNT [id number] RDW 13.2 % 9 Unknown COMPLETE BLOOD COUNT 8196719 Eos Auto 7.7 % 9 Unknown COMPLETE BLOOD COUNT 5310304 Baso Auto 0.2 % 9 Unknown COMPLETE BLOOD COUNT 0248138 Neutrophil Abs 2.55 10e9/L Unknown COMPLETE BLOOD COUNT [id number] Lymphocyte Abs 1.32 10e9/L Unknown COMPLETE BLOOD COUNT [id number] Monocyte Abs 0.36 10e9/L 10/18 Unknown COMPLETE BLOOD COUNT [id number] Eosinophil Abs 0.35 10e9/L Unknown COMPLETE BLOOD COUNT 5306167 RDW-SD 42.2 fL 9 Unknown COMPLETE BLOOD COUNT [id number] Basophil Abs 0.01 10e9/L 10/18 Unknown LIPID GROUP 70285 Cholesterol 205 mg/dL 11/09/2018 Unkno wn LIPID GROUP 13008 Triglyceride 268 mg/dL 11/09/2018 Unkn own LIPID GROUP 50035 HDL CHOLESTEROL 35 mg/dL 11/09/2018 U nknown LIPID GROUP 97719 Chol/HDL Ratio 5.86 ratio 11/09/2018 U nknown LIPID GROUP 64055 NON-HDL Chol 170 mg/dL 11/09/2018 Unkn own LIPID GROUP 56514 LDL Cholesterol 116 mg/dL 11/09/2018 U nknown PT 5400089 PT 12.7 Seconds 11/09/2018 Unknow n PT 9175663 INR 0.9 11/09/2018 Unknown GFR CALC 5750716 GFR Non Afr Amr >60 mL/min 11/09/2018 Un known GFR CALC 2036935 GFR Afr Amr >60 mL/min 11/09/2018 Unknow n ACT PARTIAL THRMBOPLASTIN TIME 10427 PTT 34.0 Sec[place] nds 11/09/2018 Unknown LIPID GROUP 59756 Cholesterol 186 mg/dL 2018 Unkno wn LIPID GROUP 54268 Triglyceride 229 mg/dL 2018 Unkn own LIPID GROUP 63418 HDL CHOLESTEROL 36 mg/dL 2018 U nknown LIPID GROUP 33479 Chol/HDL Ratio 5.17 ratio 2018 U nknown LIPID GROUP 86334 NON-HDL Chol 150 mg/dL 2018 Unkn own LIPID GROUP 23499 LDL Cholesterol 104 mg/dL 2018 U nknown GFR CALC 0950432 GFR Non Afr Amr >60 mL/min 2018 Un known GFR CALC 3416510 GFR Afr Amr >60 mL/min 2018 Unknow n COMPREHENSIVE METABOLIC 21341 AST 23 U/L 2018 Unknown COMPREHENSIVE METABOLIC 03087 ALT 22 U/L 2018 Unknown COMPREHENSIVE METABOLIC 49420 BUN 15 mg/dL 2018 Unknown COMPREHENSIVE METABOLIC 11138 ALBUMIN 4.1 g/dL 2018 Unknown COMPREHENSIVE METABOLIC 24727 CHLORIDE 106 mmol/L 05/06 Unknown COMPREHENSIVE METABOLIC 28110 Bili Total 0.6 mg/dL 05/06 Unknown COMPREHENSIVE METABOLIC 51066 ALK PHOS 61 U/L 2018 Unknown COMPREHENSIVE METABOLIC 89524 SODIUM 141 mmol/L 05/06 Unknown COMPREHENSIVE METABOLIC 30582 CREATININE 0.91 mg/dL 04/17 Unknown COMPREHENSIVE METABOLIC 63634 CALCIUM 9.2 mg/dL 2018 Unknown COMPREHENSIVE METABOLIC 25286 POTASSIUM 3.8 mmol/L 05/06 Unknown COMPREHENSIVE METABOLIC 76855 Total Protein 7.0 g/dL Unknown COMPREHENSIVE METABOLIC 67797 Glucose 97 mg/dL 2018 Unknown COMPREHENSIVE METABOLIC 73377 Bicarbonate 28 mmol/L 04/17 Unknown COMPREHENSIVE METABOLIC 66374 AGAP 7 mmol/L 2018 Unknown THYROID STIMULATING HORMONE 82671 TSH 2.094 uIU/mL 2018 Unknown COMPLETE BLOOD COUNT 2540352 WBC 5.5 10e9/L 05/07/19 19 Unknown COMPLETE BLOOD COUNT [id number] RBC 4.61 10e12/L 2018 Unknown COMPLETE BLOOD COUNT 6847671 HEMOGLOBIN 13.6 g/dL 05/07/19 19 Unknown COMPLETE BLOOD COUNT 8389579 HEMATOCRIT 40.0 % 05/07/19 19 Unknown COMPLETE BLOOD COUNT 9486124 MCV 86.8 fL 9 Unknown COMPLETE BLOOD COUNT 4135199 MCH 29.5 pg 9 Unknown COMPLETE BLOOD COUNT 2748773 MCHC 34.0 g/dL 9 Unknown COMPLETE BLOOD COUNT 0134087 PLATELET COUNT 197 10e9/L Unknown COMPLETE BLOOD COUNT 2450584 Mean Plt Volume 10.8 fL Unknown COMPLETE BLOOD COUNT 5498868 Neut Auto 49.6 % 9 Unknown COMPLETE BLOOD COUNT 7093625 Lymph Auto 36.8 % 05/07/19 19 Unknown COMPLETE BLOOD COUNT 1179601 [place] Auto 8.1 % 9 Unknown COMPLETE BLOOD COUNT 0785314 RDW 15.3 % 9 Unknown COMPLETE BLOOD COUNT 1546686 Eos Auto 5.3 % 9 Unknown COMPLETE BLOOD COUNT 6942804 Baso Auto 0.2 % 9 Unknown COMPLETE BLOOD COUNT 7676394 Neutrophil Abs 2.73 10e9/L Unknown COMPLETE BLOOD COUNT 6488959 Lymphocyte Abs 2.02 10e9/L Unknown COMPLETE BLOOD COUNT 4709121 Monocyte Abs 0.45 10e9/L 04/17 Unknown COMPLETE BLOOD COUNT 1070629 Eosinophil Abs 0.29 10e9/L Unknown COMPLETE BLOOD COUNT [id number] RDW-SD 47.9 fL 9 Unknown COMPLETE BLOOD COUNT [id number] Basophil Abs 0.01 10e9/L 04/17 Unknown Procedures Procedure Codes Date CEFTRIAXONE SODIUM INJECTION CPT-4: J0696 11/09/2018 THER/PROPH/DIAG INJ SC/IM CPT-4: 40983 11/09/2018 ROUTINE VENIPUNCTURE CPT-4: 76264 11/09/2018 COMPREHEN METABOLIC PANEL CPT-4: 39432 11/09/2018 COMPLETE CBC W/AUTO DIFF WBC CPT-4: 05705 11/09/2018 LIPID PANEL CPT-4: 87370 11/09/2018 PROTHROMBIN TIME CPT-4: 41770 11/09/2018 THROMBOPLASTIN TIME PARTIAL CPT-4: 21135 11/09/2018 THER/PROPH/DIAG INJ SC/IM CPT-4: 22778 09/23/2018 KETOROLAC TROMETHAMINE INJ CPT-4: J1885 09/23/2018 ROUTINE VENIPUNCTURE CPT-4: 01499 2018 ASSAY THYROID STIM HORMONE CPT-4: 31639 2018 COMPREHEN METABOLIC PANEL CPT-4: 37698 2018 COMPLETE CBC W/AUTO DIFF WBC CPT-4: 89327 2018 LIPID PANEL CPT-4: 40982 2018 CEFTRIAXONE SODIUM INJECTION CPT-4: J0696 04/14/2018 THER/PROPH/DIAG INJ SC/IM CPT-4: 84808 04/14/2018 CEFTRIAXONE SODIUM INJECTION CPT-4: J0696 03/18/2018 THER/PROPH/DIAG INJ SC/IM CPT-4: 03351 03/18/2018 THER/PROPH/DIAG INJ SC/IM CPT-4: 03676 01/26/2018 KETOROLAC TROMETHAMINE INJ CPT-4: J1885 01/26/2018 CEFTRIAXONE SODIUM INJECTION CPT-4: J0696 12/22/2017 THER/PROPH/DIAG INJ SC/IM CPT-4: 95134 12/22/2017 ROUTINE VENIPUNCTURE CPT-4: 99897 11/14/2016 COMPLETE CBC W/AUTO DIFF WBC CPT-4: 38214 11/14/2016 PT/PTT CPT-4: 5281954 11/14/2016 Vital Signs Date Vital 05/02/2019 Blood [...] 1: 134/82 Code: 8480-6 BMI: 23.9 Code: 12969-9 Heart Rate 1: 100 bpm Height: 6'4" [...] 1: 138/70 Code: 8480-6 BMI: 22.6 Code: 42059-7 Heart Rate 1: 97 bpm Height: 6'4" [...] 1: 142/80 Code: 8480-6 BMI: 20.9 Code: 45395-2 Heart Rate 1: 108 bpm Height: 6'4" Respiratory Rate: 20 bpm SpO2: 97% Tempera ture: 36.6 (C) / 97.9 (F) Weight: 172 lbs 01/26/2018 Blood Pressure 1: 130/82 Code: 8480-6 Heart Rate 1: 98 bpm Respiratory Rate: 18 bpm SpO2: 99% Temperature: 35.7 (C) / 96.3 (F) We ight: 175 lbs 12/22/2017 Blood Pressure 1: 124/68 Code: 8480-6 BMI: 22.3 Code: 44425-5 Heart Rate 1: 100 bpm Height: 6'4" Respiratory Rate: 20 bpm SpO2: 98% Tempera ture: 36.7 (C) / 98.0 (F) Weight: 183 lbs 10/06/2017 Blood Pressure 1: 130/86 Code: 8480-6 BMI: 21.1 Code: 75313-1 Heart Rate 1: 92 bpm Height: 6'4" Respiratory Rate: 18 bpm SpO2: 98% Tempera ture: 36.9 (C) / 98.5 (F) Weight: 173 lbs 02/03/2017 Blood Pressure 1: 144/92 Code: 8480-6 BMI: 20.8 Code: 20516-7 Heart Rate 1: 88 bpm Height: 6'4" Respiratory Rate: 20 bpm SpO2: 97% Tempera ture: 36.7 (C) / 98.1 (F) Weight: 171 lbs 11/25/2016 Blood Pressure 1: 126/84 Code: 8480-6 Heart Rate 1: 76 bpm Respiratory Rate: 20 bpm SpO2: 96% Temperature: 36.9 (C) / 98.4 (F) We ight: 170 lbs 11/14/2016 Blood Pressure 1: 126/82 Code: 8480-6 BMI: 20.7 Code: 58736-3 Heart Rate 1: 86 bpm Height: 6'4" Respiratory Rate: 18 bpm SpO2: 96% Tempera ture: 35.8 (C) / 96.5 (F) Weight: 170 lbs 04/02/2016 Blood Pressure 1: 124/78 Code: 8480-6 Heart Rate 1: 88 bpm Respiratory Rate: 24 bpm SpO2: 97% Temperature: 36.1 (C) / 97.0 (F) We ight: 161 lbs 11/29/2015 Blood Pressure 1: 124/68 Code: 8480-6 BMI: 19.2 Code: 21870-3 Heart Rate 1: 94 bpm Height: 6'4" Respiratory Rate: 18 bpm SpO2: 97% Tempera ture: 36.1 (C) / 97.0 (F) Weight: 158 lbs 06/27/2015 Blood Pressure 1: 128/78 Code: 8480-6 BMI: 18.7 Code: 29292-6 Heart Rate 1: 72 bpm Height: 6'4" Respiratory Rate: 22 bpm SpO2: 98% Tempera ture: 35.9 (C) / 96.6 (F) Weight: 154 lbs 05/24/2015 Blood Pressure 1: 112/78 Code: 8480-6 BMI: 19.7 Code: 17857-4 Heart Rate 1: 78 bpm Height: 6'4" [...] care Encounters Encounter Performer Location Codes Date ([id number]) OFFICE/OUTPATIENT VISIT EST Diagnosis: Acute dermatitis[ICD10: L30.9] Diagnosis: DM w/o complication type II, uncontrolled[ICD10: E11.65] Diagnosis: Right leg DVT[ICD10: I82.401] Janneth SHRESTHA [facility] CPT-4: 08897 05/02/2019 ([id number]) OFFICE/OUTPATIENT VISIT EST Diagnosis: DM w/o complication type II, uncontrolled[ICD10: E11.65] Diagnosis: Allergic dermatitis[ICD10: L23.9] Diagnosis: Right leg DVT[ICD10: I82.401] Diagnosis: Paroxysmal atrial fibrillation[ICD10: I48.0] Diagnosis: Right calf pain[ICD10: M79.661] Janneth SHRESTHA [facility] CPT-4: 79703 04/25/2019 ([id number]) OFFICE/OUTPATIENT VISIT EST Diagnosis: DM w/o complication type II, uncontrolled[ICD10: E11.65] Diagnosis: 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, implant, or graft[ICD10: T85.818A] Diagnosis: Essential hypertension[ICD10: I10] Janneth Clarkguanako REGINE FLOR SHRESTHA [facility] CPT-4: 08875 04/11/2019 ([id number]) OFFICE/OUTPATIENT VISIT EST Diagnosis: Sinus tachycardia[ICD10: R00.0] Diagnosis: Folliculitis[ICD10: L73.9] Janneth HARDY [facility] CPT-4: 17337 03/01/2019 ([id number]) OFFICE/OUTPATIENT VISIT EST Diagnosis: Cellulitis of left lower limb[ICD10: L03.116] Diagnosis: Tendinitis of left peroneus longus tendon[ICD10: M76.72] Janneth SHRESTHA [facility] CPT-4: 25636 11/18/2018 ([id number]) OFFICE/OUTPATIENT VISIT EST Diagnosis: Cellulitis of left foot[ICD10: L03.116] Diagnosis: Spontaneous ecchymoses[ICD10: R23.3] Diagnosis: Venous insufficiency (chronic) (peripheral)[ICD10: I87.2] Diagnosis: Mixed hyperlipidemia[ICD10: E78.2] Vaniamelly WEINER FLOR SHRESTHA [facility] CPT-4: 14052 11/09/2018 ([id number]) OFFICE/OUTPATIENT VISIT EST Diagnosis: Venous insufficiency (chronic) (peripheral)[ICD10: I87.2] Diagnosis: Cellulitis of left lower limb[ICD10: L03.116] Diagnosis: Pain in right foot[ICD10: M79.671] Vania RAY Banki[employer]ruLisandra CLARK [facility] CPT-4: 41589 10/13/2018 ([id number]) OFFICE/OUTPATIENT VISIT EST Diagnosis: Low back pain[ICD10: M54.5] Vania Dsouza. Brandon [facility] CPT-4: 19809 09/23/2018 ([id number]) OFFICE/OUTPATIENT VISIT EST Diagnosis: Gastro-esophageal reflux disease without esophagitis[ICD10: K21.9] Diagnosis: Dysphagia, pharyngoesophageal phase[ICD10: R13.14] Janneth MERINOLINE [employer] [facility] CPT-4: 59905 09/06/2018 ([id number]) OFFICE/OUTPATIENT VISIT EST Diagnosis: Tinea corporis[ICD10: B35.4] Vania ROGERSPythian [facility] CPT-4: 97791 07/15/2018 ([id number]) OFFICE/OUTPATIENT VISIT EST Diagnosis: Cellulitis of left toe[ICD10: L03.032] Diagnosis: Mixed hyperlipidemia[ICD10: E78.2] Mandy MERINOGINNY RAY [facility] [address] [facility] CPT-4: 64967 2018 OFFICE/OUTPATIENT VISIT EST Diagnosis: Cellulitis of left toe[ICD10: L03.032] Diagnosis: Unspecified disturbances of skin sensation[ICD10: R20.9] Mandy MERINOLINE [employer] [facility] CPT-4: 98686 04/14/2018 ([id number]) OFFICE/OUTPATIENT VISIT EST Diagnosis: Cellulitis of left toe[ICD10: L03.032] Diagnosis: Insomnia, unspecified[ICD10: G47.00] Vania BUCHANAN [employer] [address] [facility] CPT-4: 34255 03/18/2018 ([id number]) OFFICE/OUTPATIENT VISIT EST Diagnosis: Other postprocedural complications and disorders of the circulatory system, not elsewhere classified[ICD10: I97.89] Diagnosis: Rash and other nonspecific skin eruption[ICD10: R21] Diagnosis: Pain in right leg[ICD10: M79.604] Vania SHRESTHA [facility] CPT-4: 04167 01/26/2018 ([id number]) OFFICE/OUTPATIENT VISIT EST Diagnosis: Other postprocedural complications and disorders of the circulatory system, not elsewhere classified[ICD10: I97.89] Diagnosis: Cellulitis of right lower limb[ICD10: L03.115] Vania SHRESTHA DO [facility] CPT-4: 07604 12/22/2017 ([id number]) OFFICE/OUTPATIENT VISIT EST Diagnosis: Acute sinusitis, unspecified[ICD10: J01.90] Diagnosis: Unspecified disturbances of skin sensation[ICD10: R20.9] Vania SHRESTHA [facility] CPT-4: 28923 10/06/2017 ([id number]) OFFICE/OUTPATIENT VISIT EST Diagnosis: Primary insomnia[ICD10: F51.01] Diagnosis: Pain in left shoulder[ICD10: M25.512] Diagnosis: Poisoning by other parasympatholytics [anticholinergics and antimuscarinics] and spasmolytics, accidental (unintentional), sequela[ICD10: T44.3X1S] Janneth SHRESTHA [facility] CPT-4: 79947 02/03/2017 OFFICE/OUTPATIENT VISIT EST Diagnosis: Insomnia, unspecified[ICD10: G47.00] Diagnosis: Constipation, unspecified[ICD10: K59.00] Diagnosis: Spontaneous ecchymoses[ICD10: R23.3] Diagnosis: Pain in left foot[ICD10: M79.672] Vania SHRESTHA [facility] CPT-4: 90402 11/25/2016 OFFICE/OUTPATIENT VISIT EST Diagnosis: Insomnia, unspecified[ICD10: G47.00] Diagnosis: Constipation, unspecified[ICD10: K59.00] Diagnosis: Spontaneous ecchymoses[ICD10: R23.3] Diagnosis: Other specified local infections of the skin and subcutaneous tissue[ICD10: L08.89] Vania SHRESTHA [facility] CPT-4: 99 213 11/14/2016 ([id number]) OFFICE/OUTPATIENT VISIT EST Diagnosis: Acute upper respiratory infection, unspecified[ICD10: J06.9] Ester SHRESTHA DO [facility] CPT-4: 88656 04/02/2016 ([id number]) OFFICE/OUTPATIENT VISIT EST Diagnosis: Acute upper respiratory infection, unspecified[ICD10: J06.9] Ester SHRESTHA [facility] CPT-4: 49052 11/29/2015 ([id number]) OFFICE/OUTPATIENT VISIT EST Diagnosis: Pain in thoracic spine[ICD10: M54.6] Diagnosis: Paresthesia of skin[ICD10: R20.2] Diagnosis: Dysphagia, unspecified[ICD10: R13.10] E[facility] CPT-4: 80857 06/27/2015 ([id number]) OFFICE/OUTPATIENT VISIT NEW Diagnosis: Pain in left leg[ICD10: M79.605] Diagnosis: Male erectile dysfunction, unspecified[ICD10: N52.9] Diagnosis: Dysphagia, unspecified[ICD10: R13.10] Ester SHRESTHA [facility] CPT-4: 88136 05/24/2015 Plan of Care Planned Activity Notes [...] Patient Education: metoprolol succinate- [employer] Co upon [id number] https://www.[employer]samplemd/resources/getResource/61/12631wa8-d5u3-026b-r2 Completed 05/02/2019 Visit Diagnosis Plan: Paroxysmal atrial [...] E11.65 04/25/2019 Appointment: [facility]rest[phone] [facility] [facility] 04/25/2019 Patient Education: Metformin Patient Savings Message Alert Completed 04/25/2019 Patient Education: prednisone- [employer] Coupon [id number] https://www.[employer]samplemd/resources/getResource/61/9tn48je0-z0fa-9a51-cx Completed 04/25/2019 Visit Diagnosis Plan: DM w/o [...] : T85.818A 04/11/2019 Appointment: Janneth Shrestha WPtel: [address] [place], [place] [phone] ACUTE ILLNESS 04/11/2019 Patient Education: metoprolol succinate- [employer] Co upon [id number] https://www.1DayLater/Magnetic/resources/getResource/61/gi207582-41pu-4g84-71 Completed 04/11/2019 Patient Education: Metformin Patient Savings Message Alert Completed 04/11/2019 Patient Education: cephalexin- [employer] Coupon [id number] https://www.1DayLater/Magnetic/resources/Autology Worldource/61/3khm2591-7p3f-6370-oi Completed 04/11/2019 Visit Diagnosis Plan: Folliculitis Discussion: Bactrim and topical bactroban ICD-9 : 704.8 ICD-10 : L73.9 03/01/2019 Visit Diagnosis Plan: Sinus tachycardia Discussion: St art low dose metoprolol ER 25mg daily Monitor pulse Sees Cardiology next month ICD-9 : 427.89 ICD-10 : R00.0 03/01/2019 Appointment: Janneth Shrestha WPtel: [address] [place] [address] [place] FOLLOW UP 03/01/2019 Patient Education: mupirocin- [employer] Coupon [id number] https://www.1DayLater/Magnetic/resources/getResource/61/gj163ni0-30qv-376p-ef Completed 03/01/2019 Appointment: Janneth Shrestha WPtel: [address] [place] [address] [place] CANCELED 12/20/2018 Visit Diagnosis Plan: Cellulitis [...] : M76.72 11/18/2018 Appointment: [facility] [place] CANC[facility]ED 11/18/2018 Appointment: [facility]restha [facility]el[phone] [facility] [place] FOLLOW UP 11/18/2018 Patient Education: doxycycline monohydrate- [employer] Coupon [id number] https://www.1DayLater/sampleStand In/resources/getResource/61/mhk13937-c2k2-08m0-4y Completed 11/18/2018 Patient Education: prednisone- [employer] Coupon 16948 321 https://www.1DayLater/sampleStand In/resources/getResource/61/14ys7a2m-2md1-8845-rz Completed 11/18/2018 Care Plan: Referral Order SNOMED-CT : 30 [id number] Pending 11/18/2018 Visit Diagnosis Plan: Venous insufficiency [...] evaluated in an ED whether it be [place] or wherever he's traveling. discussed the risk [...] ICD-10 : R23.3 11/09/2018 Appointment: Vania García [address] [facility] ACUTE ILLNESS 11/09/2018 Patient Education: clindamycin HCl- [employer] Coupon [id number] https://www.[employer]sampleStand In/resources/getResource/61/05gf33w3-tg01-3wy8-2m Completed 11/09/2018 Appointment: Janneth Shrestha [facility]Ptel: [phone] [facility] CANCELED 10/19/2018 Visit Diagnosis Plan: Pain in [...] ICD-10 : L03.116 10/13/2018 Appointment: Vania García [address] [place], [place] [id number] Patient cant pay copay till when he [...] : M54.5 09/23/2018 Appointment: Vania García [facility] [facility] 09/23/2018 Patient Education: Medrol ([place]ren[place])- [employer] Coupon [phone] https://www.1DayLater/Magnetic/resources/getResource/61/clvq445c-6787-33i8-36 Completed 09/23/2018 Visit Diagnosis Plan: Dysphagia, pharyngoesophageal ph ase Discussion: Referral for EGD ICD-9 : 787.24 ICD-10 : R13.14 09/06/2018 Visit Diagnosis Plan: Gastro-esophageal reflux disease without esophagitis Discussion: Start omeprazole ICD-9 : 530.81 ICD-10 : K21.9 09/06/2018 Appointment: Janneth Shrestha WPtel: [phone] [facility] [facility] ACUTE ILLNESS 09/06/2018 Patient Education: omeprazole- [employer] Coupon 21588 [id number] https://www.1DayLater/Magnetic/resources/getResource/61/517ff746-48a6-761b-13 Completed 09/06/2018 Care Plan: Referral Order SNOMED-CT : 30 9085220 Pending 09/06/2018 Visit Diagnosis Plan: Tinea corporis Discussion: nysta tin to be used bid until rash gone and then an additional 2 days. diflucan every 3 days for 3 doses. keep area clean and dry with no moisturizers. call office if no improvement in 2 weeks or if worsening. ICD-9 : 110.5 ICD-10 : B35.4 07/15/2018 Appointment: Vania García [facility] [facility] 07/15/2018 Patient Education: nystatin- [employer] Coupon [id number] https://www.1DayLater/Magnetic/resources/getResource/61/82biv352-j7ay-07vd-3z Completed 07/15/2018 Patient Education: Plavix- [employer] Coupon 92803182 https://www.1DayLater/samplemd/resources/getResource/61/89do0x28-m22y-20xf-05 fa-i318w5025149.pdf Completed 07/15/2018 Patient Education: cyclobenzaprine- [employer] Coupon 07323893 https://www.1DayLater/samplemd/resources/getResource/61/18462v2e-3t83-18i9-cn Completed 07/15/2018 Visit Diagnosis Plan: Cellulitis of [...] ICD-10 : L03.032 2018 Appointment: Mandy Hollins [address] [place] [address] FOLLOW UP 2018 Patient Education: mupirocin- [employer] Coupon [id number] https://www.M[employer]samplemd/resources/getResource/61/x1kq63q7-5330-6668-8b Completed 2018 Visit Diagnosis Plan: Cellulitis of [...] ICD-10 : R20.9 04/14/2018 Appointment: Mandy Hollins [address] [place] [address] FOLLOW UP 04/14/2018 Visit Diagnosis Plan: Cellulitis [...] ICD-10 : G47.00 03/18/2018 Appointment: Vania García [address] [place], [place] [id number] ACUTE ILLNESS 03/18/2018 Patient Education: cyclobenzaprine- [employer] Coupon [id number] https://www.Magnetic.com/samplemd/resources/getResource/61/3922a599-2dz3-739b-s7 Completed 03/18/2018 Visit Diagnosis Plan: Rash and other nonspecific skin eruption Discussion: triamcinolone ordered to be used as directed. ICD-9 : 782.1 ICD-10 : R21 01/26/2018 Visit Diagnosis Plan: Other postprocedur al complications and disorders of the circulatory system, not elsewhere classified Discussion: discussed with dr. shrestha and patient was instructed to contact the [place] [facility] de[facility]. due to uncontrolled pain, continued erythema, patient needs to be re-evaluated by the surgeon. 60 mg toradol given to patient. patient verbalized understanding and voiced he will contact them today for an appointment. ICD-9 : 997.1 ICD-10 : I97.89 01/26/2018 App[facility]ment: [facility] [facility] Up 01/26/2018 Appointment: Janneth Shrestha WPtel: [phone] [facility] [address] NO SHOW 01/06/2018 Visit Diagnosis Plan: [...] : I97.89 12/22/2017 Appointment: Vania García [facility] [facility] 12/22/2017 Visit Diagnosis Plan: Unspecified [...] ICD-10 : J01.90 10/06/2017 Appointment: Vania García [address] [place], [place] [phone] ACUTE ILLNESS 10/06/2017 Patient Education: Patient Medication Summary Completed 10/06/2017 Appointment: Vania García [address] [place], [place] [phone] ER Follow UP 08/17/2017 Appointment: Vania García [address] [place], [place] [phone] [place] CANCELED 07/03/2017 Appointment: Janneth Shrestha WPtel: [phone] [facility] [place] canceled at 8:05 this morning. 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 ICD-9 : 729.5 ICD-10 : M79.672 11/25/2016 Visit Diagnosis Plan: Insomnia, unspecified Recommenda tions: resolved with lunesta. continue taking as prescribed. ICD-9 : 780.52 ICD-10 : G47.00 11/25/2016 Appointment: Vania García [address] [place], [place] [phone] FOLLOW UP 11/25/2016 Patient Education: Patient Medication [...] ICD-10 : K59.00 11/14/2016 Appointment: Vania García [address] [place] [address] ACUTE ILLNESS 11/14/2016 Patient Education: Patient Medication Summary Completed 11/14/2016 Visit Diagnosis Plan: Acute upper respiratory infectio n, unspecified Discussion: Rxs as above Continue OTC and supportive meds Encouraged smoking cessation Follow up PRN ICD-9 : 465.9 ICD-10 : J06.9 04/02/2016 Appointment: Ester Grande [address] [place] [address] ACUTE ILLNESS 04/02/2016 Patient Education: Patient Medication Summary Completed 04/02/2016 Visit Plan: Rxs as above Supportive care reviewed Follow up PRN 11/29/2015 Appointment: Ester Grande [address] 11/27 confirmed~sl ACUTE ILLNESS 11/29/2015 Patient Education: [...] for pain 06/27/2015 Appointment: [facility] [place] 06/25 lm ~sl 06/26 phone not on~sl FOLLOW UP 06/27/2015 Patient Education: Patient Medication Summary Completed 06/27/2015 Care Plan: X-RAY EXAM RIBS UNI 2 VIEWS L OINC : 46954-3 Pending 06/27/2015 Referral: Héctor Woodard WPtel: [phone] [facility] 05/29 Scheduled with sena ~sl Appointment Re quested 06/26/2015 Referral: Cameron Khanna WPtel: [phone] [facility] [place] Referral Initiated 06/11/2015 Referral: Marco Antonio Green WPtel: [phone] [id number] 05/30/15 Needs to be there at pre op time per ~sl Initiated 06/04/2015 Visit Plan: Will get all necessary refer rals set up - CTS, Uro and G/S Swallow study and routine labs ordered Will further investigate left leg pain with EMG if not cardio related 05/24/2015 Appointment: Ester Grande [address] [facility] NEW PATIENT 05/24/2015 Patient Education: Patient Medication Summary Completed 05/24/2015 Care Plan: Referral Order SNOMED-CT : 30 [id number] Pending 05/24/2015 Care Plan: Referral Order SNOMED-CT : 30 6032893 Pending 05/24/2015 Care Plan: Referral Order SNOMED-CT : 30 [id number] Pending 05/24/2015 Referral: Sudheer Gann WPtel: [phone] [facility] [place] Referral Appointment Requested Referral: Alfonzo Andujar WPtel: [address] [facility] [place] Referral Initiated Referral: [facility] [address] [id number] [place] Referral Completed Referral: Cameron Khanna WPtel: [phone] [facility] [place] Referral Appointment Requested Referral: Brianna Rose WPtel: [address] [place] [address] [place] Referral Initiated Referral: Héctor Woodard WPtel: [phone] [address] 05/24/15 [facility] office suggested he see another card. ~sl Initiated Referral: Alfonzo Andujar WPtel: [address] [place] [address] [place] Referral Appointment Requested Referral: Marco Antonio Green WPtel: [address] [place] [address] [place] Referral Appointment Requested Instructions Comment . [...]
--- OUTSIDE RECORDS SUMMARY | 2019-08-06 10:26 | XMS REPORT | CCD ---
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 Name Role Phone Janneth Shrestha D.O., PP Unavailable CCM Unavailable Summary Purpose Interface Exchange Insurance Providers Payer name Policy type / Coverage type Covered democrat ID Effective Begin Date Effective End Date Blue Cross Blue Shield Blue Cross/Blue Shield [id number] Unknown Family History Family History data not found Social History Social History Element Codes Description Effective Dates Marital status Unknown 05/24/2015 Number of children Unknown 2 05/24/2015 Employment Unknown Currently employed 05/24/[address]: 78211300 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 [...] 50 mg tablet,extended release 24 hr RxNorm: 070504 1 Tablet(s) Oral QD 08/01/2019 10/30/2019 Active Xarelto 20 mg tablet RxNorm: 8259402 1 Tablet(s) Oral QD 04/25/2019 No Stop Date Active Plavix 75 mg tablet RxNorm: 080880 TAKE ONE TABLET BY MOUTH DAILY 0 04/25/2019 04/26/2019 Inactive amiodarone 200 mg tablet RxNorm: 875732 1 Tablet(s) Oral QD No Stop Date Active metformin ER 500 mg 24 hr tablet,extended release RxNorm: 18 54045 1 Tablet(s) Oral two times a day 04/25/2019 07/24/2019 Active Plavix 75 mg tablet RxNorm: 120675 TAKE ONE TABLET BY MOUTH DAILY 0 04/25/2019 04/24/2019 Inactive prednisone 20 mg tablet RxNorm: 387274 1 Tablet(s) Oral two jn es a day 04/25/2019 05/01/2019 Inactive aspirin 81 mg tablet,delayed release RxNorm: 714465 1 Tablet(s) Oral QD 04/11/2019 No Stop Date Active pantoprazole 40 mg tablet,delayed release RxNorm: 896841 1 Tabl et(s) Oral QAM 04/11/2019 No Stop Date Active Vitamin C 1,000 mg tablet RxNorm: 509567 1 Tablet(s) Oral QD 2019 No Stop Date Active Xarelto 15 mg tablet RxNorm: 6939931 1 Tablet(s) Oral QD 04/11/2019 0 04/24/2019 Inactive metformin ER 500 mg 24 hr tablet,extended release RxNorm: 18 28521 1 Tablet(s) Oral QD 04/11/2019 04/24/2019 Inactive cephalexin 500 mg capsule RxNorm: 472598 1 Capsule(s) Oral thre e times a day 04/11/2019 04/18/2019 Inactive metoprolol succinate ER 50 mg tablet,extended release 24 hr RxNorm: 569933 1 Tablet(s) Oral QD replaces 25mg dose 04/11/2019 05/01/2019 Inactive cyclobenzaprine 10 mg tablet RxNorm: 314582 TAKE ONE TA BLET BY MOUTH EVERY NIGHT AT BEDTIME NEEDED 03/11/2019 No Stop Date Active mupirocin 2 % topical ointment RxNorm: 349645 Applicati on Topical two times a day 03/01/2019 04/10/2019 Inactive metoprolol succinate ER 25 mg tablet,extended release 24 hr RxNorm: 259306 1 Tablet(s) Oral QD 03/01/2019 04/24/2019 Inactive Bactrim DS 800 mg-160 mg tablet RxNorm: 698788 1 Tablet(s) Oral two times a day 03/01/2019 03/11/2019 Inactive omeprazole 40 mg capsule,delayed release RxNorm: 846121 TAKE ONE CAPSULE BY MOUTH EVERY NIGHT AT BEDTIME FOR REFLUX 01/10/2019 No Stop Date Active cyclobenzaprine 10 mg tablet RxNorm: 725128 TAKE ONE TA BLET BY MOUTH EVERY NIGHT AT BEDTIME NEEDED 01/10/2019 03/10/2019 Inactive Plavix 75 mg tablet RxNorm: 752988 TAKE ONE TABLET BY MOUTH DAILY 1 03/12/2018 04/24/2019 Inactive tramadol 50 mg tablet RxNorm: 350868 1 Tablet(s) Oral f our times a day as needed 01/03/2019 01/03/2019 Inactive doxycycline monohydrate 100 mg capsule RxNorm: 3306972 1 Capsule(s) Oral two times a day 11/22/2018 12/13/2018 Inactive prednisone 20 mg tablet RxNorm: 441756 1 Tablet(s) Oral two jn es a day 11/22/2018 11/29/2018 Inactive Levaquin 750 mg tablet RxNorm: 383254 Tablet(s) Oral 11/18/201802/28 Inactive prednisone 20 mg tablet RxNorm: 357396 1 Tablet(s) Oral two jn es a day 11/18/2018 11/21/2018 Inactive tramadol 50 mg tablet RxNorm: 582993 Tablet(s) Oral 11/18/20182018 Inactive doxycycline monohydrate 100 mg capsule RxNorm: 6722405 1 Capsule(s) Oral two times a day 11/18/2018 11/21/2018 Inactive Plavix 75 mg tablet RxNorm: 430521 TAKE ONE TABLET BY MOUTH DAILY 0 11/10/2018 01/08/2019 Inactive clindamycin HCl 300 mg capsule RxNorm: 546460 1 Capsule (s) Oral three times a day 11/09/2018 11/19/2018 Inactive Keflex 500 mg capsule RxNorm: 628579 1 Capsule(s) PO BID 10/13/2018 0 10/22/2018 Inactive Medrol (Brenden) 4 mg tablets in a dose pack RxNorm: 680676 Tablet(s) take as directed PO 09/23/2018 10/12/2018 Inactive omeprazole 40 mg capsule,delayed release RxNorm: 484019 1 Capsule(s) PO QHS for reflux 09/06/2018 11/04/2018 Inactive cyclobenzaprine 10 mg tablet RxNorm: 920403 1 Tablet(s) PO QHS as needed 07/15/2018 10/12/2018 Inactive Diflucan 150 mg tablet RxNorm: 337811 1 Tablet(s) PO Q72H 07/15/2018 09/05/2018 Inactive nystatin 100,000 unit/gram topical cream RxNorm: 777224 1 Gram( s) TOP BID 07/15/2018 09/05/2018 Inactive Plavix 75 mg tablet RxNorm: 717631 1 Tablet(s) PO QD 07/15/201810/12 Inactive cyclobenzaprine 10 mg tablet RxNorm: 826542 1 Tablet(s) PO QHS as needed 06/10/2018 06/09/2018 Inactive cyclobenzaprine 10 mg tablet RxNorm: 492051 TAKE ONE TA BLET BY MOUTH EVERY NIGHT AT BEDTIME NEEDED 05/10/2018 06/10/2018 Inactive mupirocin 2 % topical ointment RxNorm: 982360 1 Application TOP BID 2018 05/25/2018 Inactive 22 gram cyclobenzaprine 10 mg tablet RxNorm: 609483 1 Tablet(s) PO QHS as needed 04/14/2018 06/09/2018 Inactive doxycycline hyclate 100 mg tablet RxNorm: 1114996 1 Tablet(s) PO BI D 04/14/2018 04/23/2018 Inactive cyclobenzaprine 10 mg tablet RxNorm: 576077 1 Tablet(s) PO QHS as needed 04/07/2018 04/13/2018 Inactive Bactrim DS 800 mg-160 mg tablet RxNorm: 975454 1 Tablet(s) PO BID 0 03/18/2018 03/27/2018 Inactive cyclobenzaprine 10 mg tablet RxNorm: 064941 1 Tablet(s) PO QHS as needed 03/18/2018 04/06/2018 Inactive triamcinolone acetonide 0.1 % topical cream RxNorm: 6624742 APPLY TO AFFECTED AREA(S) TWO TIMES A DAY 02/03/2018 02/12/2018 Inactive triamcinolone acetonide 0.1 % topical cream RxNorm: 2118469 1 Application TOP BID 01/26/2018 02/02/2018 Inactive Medrol (Brenden) 4 mg tablets in a dose pack RxNorm: 475159 TAKE BY MOUTH INSTRUCTED - PER PACKAGE INSTRUCTIONS 12/11/2017 12/16/2017 Inactive Medrol (Brenden) 4 mg tablets in a dose pack RxNorm: 422646 Tablet(s) P O 10/06/2017 12/10/2017 Inactive Lunesta 3 mg tablet RxNorm: 647461 1 Tablet(s) PO QHS 11/25/201608/2016 Inactive Lunesta 3 mg tablet RxNorm: 436070 1 Tablet(s) PO QHS 11/14/201610/2016 Inactive Bactrim DS 800 mg-160 mg tablet RxNorm: 764260 1 Tablet(s) PO BID 0 11/14/2016 11/23/2016 Inactive Epi E-Z Pen 0.3 mg/0.3 mL injection, auto-injector RxNorm: 1 680422 Milliliter(s) IM Use as Directed 06/25/2016 09/05/2018 Inactive amoxicillin 875 mg tablet RxNorm: 652737 1 Tablet(s) PO BID 017 04/11/2016 Inactive prednisone 20 mg tablet RxNorm: 156737 1 Tablet(s) PO BID 04/02/2016 04/06/2016 Inactive azithromycin 250 mg tablet RxNorm: 501723 2 Tablet(s) P O on day one then 1 tab on days 2-5 11/29/2015 11/28/2015 Inactive Medrol (Brenden) 4 mg tablets in a dose pack RxNorm: 637430 Take as directed 11/29/2015 11/13/2016 Inactive meloxicam 15 mg tablet RxNorm: 823333 1 Tablet(s) PO QD 07/02/2015 Inactive Chantix Starting Month Box 0.5 mg (11)-1 mg (42) table ts in dose pack RxNorm: 095052 Tablet(s) PO As Directed 06/20/2015 07/10/2015 Inactive omeprazole 40 mg capsule,delayed release RxNorm: 617223 1 Capsu le(s) PO QD 05/31/2015 11/13/2016 Inactive omeprazole 40 mg capsule,delayed release RxNorm: 486519 1 Capsu le(s) PO QD 05/31/2015 05/30/2015 Inactive Lactobacillus acidophilus-Bifidobacterium longum oral RxNorm: oral No Start Date Active Multivitamin And Mineral oral RxNorm: oral No Start Date Active Wellbutrin SR 150 mg tablet,sustained-release RxNorm: 422350 1 Tablet(s) PO BID No Start Date 11/13/2016 Inactive gabapentin 100 mg capsule RxNorm: 299796 1 Capsule(s) PO TID No Sta rt Date 03/17/2018 Inactive Chantix Starting Month Box 0.5 mg (11)-1 mg (42) table ts in dose pack RxNorm: 559339 Tablet(s) PO As Directed No Start Date 06/19/2015 Inactive Eliquis 5 mg tablet RxNorm: 6567894 1 Tablet(s) PO BID No Start Date 03/17/2018 Inactive aspirin 325 mg tablet RxNorm: 128703 1 Tablet(s) PO QD No Start Date 11/13/2016 Inactive clindamycin HCl 300 mg capsule RxNorm: 057159 2 Capsule(s) PO Q8H N o Start Date 03/17/2018 Inactive Fish Oil 1,000 mg (120 mg-180 mg) capsule RxNorm: 1 Caps ule(s) PO QD No Start Date 09/05/2018 Inactive aspirin 81 mg tablet RxNorm: 065764 1 Tablet(s) PO QD No Start Date 1 03/28/2017 Inactive Fish Oil 1,000 mg capsule RxNorm: 1 Capsule(s) PO QD No Start Date 11/13/2016 Inactive Baby Aspirin 81 mg chewable tablet RxNorm: 323961 1 Tablet(s) P O BID No Start Date 02/02/2017 Inactive Xarelto 10 mg tablet RxNorm: 4625289 1 Tablet(s) PO QD No Start Date 01/25/2018 Inactive tramadol 50 mg tablet RxNorm: 209392 1-2 Tablet(s) PO Q6H No Start Date 03/17/2018 Inactive meloxicam 15 mg tablet RxNorm: 648643 1 Tablet(s) PO QD No Start Da te 07/01/2015 Inactive Epi E-Z Pen 0.3 mg/0.3 mL injection, auto-injector RxNorm: 1 035017 Milliliter(s) IM Use as Directed No Start Date 06/24/2016 Inactive Plavix 75 mg tablet RxNorm: 972897 1 Tablet(s) PO QD No Start Date Inactive Medication Administered No Medication Administered data Immunizations No Immunization data Results Observation Observation Code Item Item Code Result Date S vice Location COMPREHENSIVE METABOLIC 78236 AST 25 U/L 2018 Unknown COMPREHENSIVE METABOLIC 33580 ALT 28 U/L 2018 Unknown COMPREHENSIVE METABOLIC 38459 BUN 13 mg/dL 2018 Unknown COMPREHENSIVE METABOLIC 94799 ALBUMIN 4.2 g/dL 2018 Unknown COMPREHENSIVE METABOLIC 34452 CHLORIDE 104 mmol/L 11/09 Unknown COMPREHENSIVE METABOLIC 16150 Bili Total 0.5 mg/dL 11/09 Unknown COMPREHENSIVE METABOLIC 40210 ALK PHOS 72 U/L 2018 Unknown COMPREHENSIVE METABOLIC 67224 SODIUM 139 mmol/L 11/09 Unknown COMPREHENSIVE METABOLIC 45897 CREATININE 0.98 mg/dL 10/18 Unknown COMPREHENSIVE METABOLIC 83647 CALCIUM 9.1 mg/dL 2018 Unknown COMPREHENSIVE METABOLIC 41963 POTASSIUM 3.7 mmol/L 11/09 Unknown COMPREHENSIVE METABOLIC 43363 Total Protein 7.2 g/dL Unknown COMPREHENSIVE METABOLIC 81107 Glucose 137 mg/dL 2018 Unknown COMPREHENSIVE METABOLIC 75290 Bicarbonate 24 mmol/L 10/18 Unknown COMPREHENSIVE METABOLIC 81176 AGAP 11 mmol/L 2018 Unknown COMPLETE BLOOD COUNT 2836012 WBC 4.6 10e9/L 11/10/19 19 Unknown COMPLETE BLOOD COUNT [id number] RBC 4.88 10e12/L 2018 Unknown COMPLETE BLOOD COUNT 2763000 HEMOGLOBIN 14.7 g/dL 11/10/19 19 Unknown COMPLETE BLOOD COUNT 8851149 HEMATOCRIT 43.7 % 11/10/19 19 Unknown COMPLETE BLOOD COUNT [id number] MCV 89.5 fL 9 Unknown COMPLETE BLOOD COUNT 9450260 MCH 30.1 pg 9 Unknown COMPLETE BLOOD COUNT 6046902 MCHC 33.6 g/dL 9 Unknown COMPLETE BLOOD COUNT [id number] PLATELET COUNT 179 10e9/L Unknown COMPLETE BLOOD COUNT 5231527 Mean Plt Volume 11.6 fL Unknown COMPLETE BLOOD COUNT [id number] Neut Auto 55.5 % 9 Unknown COMPLETE BLOOD COUNT 2209198 Lymph Auto 28.7 % 11/10/19 19 Unknown COMPLETE BLOOD COUNT 1810301 [place] Auto 7.9 % 9 Unknown COMPLETE BLOOD COUNT 6216122 RDW 13.2 % 9 Unknown COMPLETE BLOOD COUNT 3742518 Eos Auto 7.7 % 9 Unknown COMPLETE BLOOD COUNT 9288334 Baso Auto 0.2 % 9 Unknown COMPLETE BLOOD COUNT [id number] Neutrophil Abs 2.55 10e9/L Unknown COMPLETE BLOOD COUNT [id number] Lymphocyte Abs 1.32 10e9/L Unknown COMPLETE BLOOD COUNT [id number] Monocyte Abs 0.36 10e9/L 10/18 Unknown COMPLETE BLOOD COUNT [id number] Eosinophil Abs 0.35 10e9/L Unknown COMPLETE BLOOD COUNT [id number] RDW-SD 42.2 fL 9 Unknown COMPLETE BLOOD COUNT 0744254 Basophil Abs 0.01 10e9/L 10/18 Unknown LIPID GROUP 50066 Cholesterol 205 mg/dL 11/09/2018 Unkno wn LIPID GROUP 19224 Triglyceride 268 mg/dL 11/09/2018 Unkn own LIPID GROUP 16664 HDL CHOLESTEROL 35 mg/dL 11/09/2018 U nknown LIPID GROUP 18857 Chol/HDL Ratio 5.86 ratio 11/09/2018 U nknown LIPID GROUP 94389 NON-HDL Chol 170 mg/dL 11/09/2018 Unkn own LIPID GROUP 38292 LDL Cholesterol 116 mg/dL 11/09/2018 U nknown PT 1241406 PT 12.7 Seconds 11/09/2018 Unknow n PT 1590198 INR 0.9 11/09/2018 Unknown GFR CALC 3439207 GFR Non Afr Amr >60 mL/min 11/09/2018 Un known GFR CALC 9965008 GFR Afr Amr >60 mL/min 11/09/2018 Unknow n ACT PARTIAL THRMBOPLASTIN TIME 31527 PTT 34.0 [place] nds 11/09/2018 Unknown LIPID GROUP 72557 Cholesterol 186 mg/dL 2018 Unkno wn LIPID GROUP 96561 Triglyceride 229 mg/dL 2018 Unkn own LIPID GROUP 10501 HDL CHOLESTEROL 36 mg/dL 2018 U nknown LIPID GROUP 35996 Chol/HDL Ratio 5.17 ratio 2018 U nknown LIPID GROUP 38963 NON-HDL Chol 150 mg/dL 2018 Unkn own LIPID GROUP 87378 LDL Cholesterol 104 mg/dL 2018 U nknown GFR CALC 2765357 GFR Non Afr Amr >60 mL/min 2018 Un known GFR CALC 6435497 GFR Afr Amr >60 mL/min 2018 Unknow n COMPREHENSIVE METABOLIC 86784 AST 23 U/L 2018 Unknown COMPREHENSIVE METABOLIC 77769 ALT 22 U/L 2018 Unknown COMPREHENSIVE METABOLIC 18138 BUN 15 mg/dL 2018 Unknown COMPREHENSIVE METABOLIC 28383 ALBUMIN 4.1 g/dL 2018 Unknown COMPREHENSIVE METABOLIC 79240 CHLORIDE 106 mmol/L 05/06 Unknown COMPREHENSIVE METABOLIC 63114 Bili Total 0.6 mg/dL 05/06 Unknown COMPREHENSIVE METABOLIC 83196 ALK PHOS 61 U/L 2018 Unknown COMPREHENSIVE METABOLIC 02200 SODIUM 141 mmol/L 05/06 Unknown COMPREHENSIVE METABOLIC 49143 CREATININE 0.91 mg/dL 04/17 Unknown COMPREHENSIVE METABOLIC 68958 CALCIUM 9.2 mg/dL 2018 Unknown COMPREHENSIVE METABOLIC 45606 POTASSIUM 3.8 mmol/L 05/06 Unknown COMPREHENSIVE METABOLIC 70582 Total Protein 7.0 g/dL Unknown COMPREHENSIVE METABOLIC 62869 Glucose 97 mg/dL 2018 Unknown COMPREHENSIVE METABOLIC 33078 Bicarbonate 28 mmol/L 04/17 Unknown COMPREHENSIVE METABOLIC 48981 AGAP 7 mmol/L 2018 Unknown THYROID STIMULATING HORMONE 17531 TSH 2.094 uIU/mL 2018 Unknown COMPLETE BLOOD COUNT 8695404 WBC 5.5 10e9/L 05/07/19 19 Unknown COMPLETE BLOOD COUNT 1956654 RBC 4.61 10e12/L 2018 Unknown COMPLETE BLOOD COUNT 3814916 HEMOGLOBIN 13.6 g/dL 05/07/19 19 Unknown COMPLETE BLOOD COUNT 4181376 HEMATOCRIT 40.0 % 05/07/19 19 Unknown COMPLETE BLOOD COUNT 4412009 MCV 86.8 fL 9 Unknown COMPLETE BLOOD COUNT 1559821 MCH 29.5 pg 9 Unknown COMPLETE BLOOD COUNT 6807972 MCHC 34.0 g/dL 9 Unknown COMPLETE BLOOD COUNT 0151622 PLATELET COUNT 197 10e9/L Unknown COMPLETE BLOOD COUNT 6492191 Mean Plt Volume 10.8 fL Unknown COMPLETE BLOOD COUNT 2313151 Neut Auto 49.6 % 9 Unknown COMPLETE BLOOD COUNT 1351536 Lymph Auto 36.8 % 05/07/19 19 Unknown COMPLETE BLOOD COUNT 9797380 [place] Auto 8.1 % 9 Unknown COMPLETE BLOOD COUNT 3816133 RDW 15.3 % 9 Unknown COMPLETE BLOOD COUNT 4912512 Eos Auto 5.3 % 9 Unknown COMPLETE BLOOD COUNT 1998119 Baso Auto 0.2 % 9 Unknown COMPLETE BLOOD COUNT 6368361 Neutrophil Abs 2.73 10e9/L Unknown COMPLETE BLOOD COUNT 9984206 Lymphocyte Abs 2.02 10e9/L Unknown COMPLETE BLOOD COUNT 3105452 Monocyte Abs 0.45 10e9/L 04/17 Unknown COMPLETE BLOOD COUNT 1504653 Eosinophil Abs 0.29 10e9/L Unknown COMPLETE BLOOD COUNT 2960939 RDW-SD 47.9 fL 9 Unknown COMPLETE BLOOD COUNT [id number] Basophil Abs 0.01 10e9/L 04/17 Unknown Procedures Procedure Codes Date CEFTRIAXONE SODIUM INJECTION CPT-4: J0696 11/09/2018 THER/PROPH/DIAG INJ SC/IM CPT-4: 30938 11/09/2018 ROUTINE VENIPUNCTURE CPT-4: 56836 11/09/2018 COMPREHEN METABOLIC PANEL CPT-4: 29921 11/09/2018 COMPLETE CBC W/AUTO DIFF WBC CPT-4: 73014 11/09/2018 LIPID PANEL CPT-4: 49837 11/09/2018 PROTHROMBIN TIME CPT-4: 34029 11/09/2018 THROMBOPLASTIN TIME PARTIAL CPT-4: 09157 11/09/2018 THER/PROPH/DIAG INJ SC/IM CPT-4: 03651 09/23/2018 KETOROLAC TROMETHAMINE INJ CPT-4: J1885 09/23/2018 ROUTINE VENIPUNCTURE CPT-4: 65790 2018 ASSAY THYROID STIM HORMONE CPT-4: 24947 2018 COMPREHEN METABOLIC PANEL CPT-4: 68114 2018 COMPLETE CBC W/AUTO DIFF WBC CPT-4: 18881 2018 LIPID PANEL CPT-4: 98307 2018 CEFTRIAXONE SODIUM INJECTION CPT-4: J0696 04/14/2018 THER/PROPH/DIAG INJ SC/IM CPT-4: 95040 04/14/2018 CEFTRIAXONE SODIUM INJECTION CPT-4: J0696 03/18/2018 THER/PROPH/DIAG INJ SC/IM CPT-4: 08450 03/18/2018 THER/PROPH/DIAG INJ SC/IM CPT-4: 11678 01/26/2018 KETOROLAC TROMETHAMINE INJ CPT-4: J1885 01/26/2018 CEFTRIAXONE SODIUM INJECTION CPT-4: J0696 12/22/2017 THER/PROPH/DIAG INJ SC/IM CPT-4: 04567 12/22/2017 ROUTINE VENIPUNCTURE CPT-4: 09636 11/14/2016 COMPLETE CBC W/AUTO DIFF WBC CPT-4: 55892 11/14/2016 PT/PTT CPT-4: 5325222 11/14/2016 Vital Signs Date Vital 05/02/2019 Blood [...] 1: 134/82 Code: 8480-6 BMI: 23.9 Code: 60152-2 Heart Rate 1: 100 bpm Height: 6'4" [...] 1: 138/70 Code: 8480-6 BMI: 22.6 Code: 62370-5 Heart Rate 1: 97 bpm Height: 6'4" [...] 1: 142/80 Code: 8480-6 BMI: 20.9 Code: 26916-3 Heart Rate 1: 108 bpm Height: 6'4" Respiratory Rate: 20 bpm SpO2: 97% Tempera ture: 36.6 (C) / 97.9 (F) Weight: 172 lbs 01/26/2018 Blood Pressure 1: 130/82 Code: 8480-6 Heart Rate 1: 98 bpm Respiratory Rate: 18 bpm SpO2: 99% Temperature: 35.7 (C) / 96.3 (F) We ight: 175 lbs 12/22/2017 Blood Pressure 1: 124/68 Code: 8480-6 BMI: 22.3 Code: 58373-4 Heart Rate 1: 100 bpm Height: 6'4" Respiratory Rate: 20 bpm SpO2: 98% Tempera ture: 36.7 (C) / 98.0 (F) Weight: 183 lbs 10/06/2017 Blood Pressure 1: 130/86 Code: 8480-6 BMI: 21.1 Code: 21799-1 Heart Rate 1: 92 bpm Height: 6'4" Respiratory Rate: 18 bpm SpO2: 98% Tempera ture: 36.9 (C) / 98.5 (F) Weight: 173 lbs 02/03/2017 Blood Pressure 1: 144/92 Code: 8480-6 BMI: 20.8 Code: 50858-5 Heart Rate 1: 88 bpm Height: 6'4" Respiratory Rate: 20 bpm SpO2: 97% Tempera ture: 36.7 (C) / 98.1 (F) Weight: 171 lbs 11/25/2016 Blood Pressure 1: 126/84 Code: 8480-6 Heart Rate 1: 76 bpm Respiratory Rate: 20 bpm SpO2: 96% Temperature: 36.9 (C) / 98.4 (F) We ight: 170 lbs 11/14/2016 Blood Pressure 1: 126/82 Code: 8480-6 BMI: 20.7 Code: 74452-9 Heart Rate 1: 86 bpm Height: 6'4" Respiratory Rate: 18 bpm SpO2: 96% Tempera ture: 35.8 (C) / 96.5 (F) Weight: 170 lbs 04/02/2016 Blood Pressure 1: 124/78 Code: 8480-6 Heart Rate 1: 88 bpm Respiratory Rate: 24 bpm SpO2: 97% Temperature: 36.1 (C) / 97.0 (F) We ight: 161 lbs 11/29/2015 Blood Pressure 1: 124/68 Code: 8480-6 BMI: 19.2 Code: 70819-9 Heart Rate 1: 94 bpm Height: 6'4" Respiratory Rate: 18 bpm SpO2: 97% Tempera ture: 36.1 (C) / 97.0 (F) Weight: 158 lbs 06/27/2015 Blood Pressure 1: 128/78 Code: 8480-6 BMI: 18.7 Code: 47488-7 Heart Rate 1: 72 bpm Height: 6'4" Respiratory Rate: 22 bpm SpO2: 98% Tempera ture: 35.9 (C) / 96.6 (F) Weight: 154 lbs 05/24/2015 Blood Pressure 1: 112/78 Code: 8480-6 BMI: 19.7 Code: 03145-6 Heart Rate 1: 78 bpm Height: 6'4" [...] care Encounters Encounter Performer Location Codes Date ([id number]) OFFICE/OUTPATIENT VISIT EST Diagnosis: Acute dermatitis[ICD10: L30.9] Diagnosis: DM w/o complication type II, uncontrolled[ICD10: E11.65] Diagnosis: Right leg DVT[ICD10: I82.401] Janneth SHRESTHA [employer] [facility] CPT-4: 80204 05/02/2019 ([id number]) OFFICE/OUTPATIENT VISIT EST Diagnosis: DM w/o complication type II, uncontrolled[ICD10: E11.65] Diagnosis: Allergic dermatitis[ICD10: L23.9] Diagnosis: Right leg DVT[ICD10: I82.401] Diagnosis: Paroxysmal atrial fibrillation[ICD10: I48.0] Diagnosis: Right calf pain[ICD10: M79.661] Janneth SHRESTHA [employer] [facility] CPT-4: 63614 04/25/2019 ([id number]) OFFICE/OUTPATIENT VISIT EST Diagnosis: DM w/o complication type II, uncontrolled[ICD10: E11.65] Diagnosis: 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, implant, or graft[ICD10: T85.818A] Diagnosis: Essential hypertension[ICD10: I10] Janneth Clarkguanako REGINE FLOR SHRESTHA [employer] [facility] CPT-4: 97844 04/11/2019 ([id number]) OFFICE/OUTPATIENT VISIT EST Diagnosis: Sinus tachycardia[ICD10: R00.0] Diagnosis: Folliculitis[ICD10: L73.9] Janneth HARDY [employer] [facility] CPT-4: 79387 03/01/2019 ([id number]) OFFICE/OUTPATIENT VISIT EST Diagnosis: Cellulitis of left lower limb[ICD10: L03.116] Diagnosis: Tendinitis of left peroneus longus tendon[ICD10: M76.72] Janneth SHRESTHA [employer] [facility] CPT-4: 76689 11/18/2018 ([id number]) OFFICE/OUTPATIENT VISIT EST Diagnosis: Cellulitis of left foot[ICD10: L03.116] Diagnosis: Spontaneous ecchymoses[ICD10: R23.3] Diagnosis: Venous insufficiency (chronic) (peripheral)[ICD10: I87.2] Diagnosis: Mixed hyperlipidemia[ICD10: E78.2] Vaniamelly WIENER FLOR SHRESTHA [employer] [facility] CPT-4: 30312 11/09/2018 ([id number]) OFFICE/OUTPATIENT VISIT EST Diagnosis: Venous insufficiency (chronic) (peripheral)[ICD10: I87.2] Diagnosis: Cellulitis of left lower limb[ICD10: L03.116] Diagnosis: Pain in right foot[ICD10: M79.671] Vania RAY [employer] MedicalLisandra CLARK [employer] [facility] CPT-4: 39311 10/13/2018 ([id number]) OFFICE/OUTPATIENT VISIT EST Diagnosis: Low back pain[ICD10: M54.5] Vania Dsouza. Brandon [facility] [employer] [facility] CPT-4: 68561 09/23/2018 ([id number]) OFFICE/OUTPATIENT VISIT EST Diagnosis: Gastro-esophageal reflux disease without esophagitis[ICD10: K21.9] Diagnosis: Dysphagia, pharyngoesophageal phase[ICD10: R13.14] Janneth MERINOLINE [employer] MedicalLisandra [employer] [facility] CPT-4: 71811 09/06/2018 ([id number]) OFFICE/OUTPATIENT VISIT EST Diagnosis: Tinea corporis[ICD10: B35.4] Vania ROGERSCollective Intellect [employer] [facility] CPT-4: 50496 07/15/2018 ([id number]) OFFICE/OUTPATIENT VISIT EST Diagnosis: Cellulitis of left toe[ICD10: L03.032] Diagnosis: Mixed hyperlipidemia[ICD10: E78.2] Mandy MERINOGINNY RAY [employer] CPT-4: 96834 2018 OFFICE/OUTPATIENT VISIT EST Diagnosis: Cellulitis of left toe[ICD10: L03.032] Diagnosis: Unspecified disturbances of skin sensation[ICD10: R20.9] Mandy MERINOLINE [employer]Lisandra [employer] [facility] CPT-4: 61188 04/14/2018 ([id number]) OFFICE/OUTPATIENT VISIT EST Diagnosis: Cellulitis of left toe[ICD10: L03.032] Diagnosis: Insomnia, unspecified[ICD10: G47.00] Vania BUCHANAN [employer]Lisandra [employer] CPT-4: 96809 03/18/2018 ([id number]) OFFICE/OUTPATIENT VISIT EST Diagnosis: Other postprocedural complications and disorders of the circulatory system, not elsewhere classified[ICD10: I97.89] Diagnosis: Rash and other nonspecific skin eruption[ICD10: R21] Diagnosis: Pain in right leg[ICD10: M79.604] Vania SHRESTHA DO [employer] CPT-4: 78407 01/26/2018 ([id number]) OFFICE/OUTPATIENT VISIT EST Diagnosis: Other postprocedural complications and disorders of the circulatory system, not elsewhere classified[ICD10: I97.89] Diagnosis: Cellulitis of right lower limb[ICD10: L03.115] Vania SHRESTHA DO [employer] CPT-4: 39931 12/22/2017 ([id number]) OFFICE/OUTPATIENT VISIT EST Diagnosis: Acute sinusitis, unspecified[ICD10: J01.90] Diagnosis: Unspecified disturbances of skin sensation[ICD10: R20.9] Vania SHRESTHA [employer] CPT-4: 97626 10/06/2017 ([id number]) OFFICE/OUTPATIENT VISIT EST Diagnosis: Primary insomnia[ICD10: F51.01] Diagnosis: Pain in left shoulder[ICD10: M25.512] Diagnosis: Poisoning by other parasympatholytics [anticholinergics and antimuscarinics] and spasmolytics, accidental (unintentional), sequela[ICD10: T44.3X1S] Janneth SHRESTHA Cerac CPT-4: 58004 02/03/2017 OFFICE/OUTPATIENT VISIT EST Diagnosis: Insomnia, unspecified[ICD10: G47.00] Diagnosis: Constipation, unspecified[ICD10: K59.00] Diagnosis: Spontaneous ecchymoses[ICD10: R23.3] Diagnosis: Pain in left foot[ICD10: M79.672] Vania SHRESTHA Cerac CPT-4: 69883 11/25/2016 OFFICE/OUTPATIENT VISIT EST Diagnosis: Insomnia, unspecified[ICD10: G47.00] Diagnosis: Constipation, unspecified[ICD10: K59.00] Diagnosis: Spontaneous ecchymoses[ICD10: R23.3] Diagnosis: Other specified local infections of the skin and subcutaneous tissue[ICD10: L08.89] Vania SHRESTHA [facility] CPT-4: 99 213 11/14/2016 ([id number]) OFFICE/OUTPATIENT VISIT EST Diagnosis: Acute upper respiratory infection, unspecified[ICD10: J06.9] Ester SHRESTHA DO [facility] CPT-4: 26058 04/02/2016 ([id number]) OFFICE/OUTPATIENT VISIT EST Diagnosis: Acute upper respiratory infection, unspecified[ICD10: J06.9] Ester SHRESTHA [facility] CPT-4: 88530 11/29/2015 ([id number]) OFFICE/OUTPATIENT VISIT EST Diagnosis: Pain in thoracic spine[ICD10: M54.6] Diagnosis: Paresthesia of skin[ICD10: R20.2] Diagnosis: Dysphagia, unspecified[ICD10: R13.10] [facility] C[facility]: 31523 06/27/2015 ([id number]) OFFICE/OUTPATIENT VISIT NEW Diagnosis: Pain in left leg[ICD10: M79.605] Diagnosis: Male erectile dysfunction, unspecified[ICD10: N52.9] Diagnosis: Dysphagia, unspecified[ICD10: R13.10] Ester SHRESTHA [facility] CPT-4: 82907 05/24/2015 Plan of Care Planned Activity Notes [...] Patient Education: metoprolol succinate- [employer] Co upon [id number] https://www.[employer].Care.com/samplemd/resources/getResource/61/60379sl6-x1e7-308s-x2 Completed 05/02/2019 Visit Diagnosis Plan: Paroxysmal atrial [...] E11.65 04/25/2019 Appointment: [facility]rest[facility] [facility] [facility] 04/25/2019 Patient Education: Metformin Patient Savings Message Alert Completed 04/25/2019 Patient Education: prednisone- [employer] Coupon [id number] https://www.[employer].Care.com/samplemd/resources/getResource/61/4qu50mi7-x7wt-3f39-ww Completed 04/25/2019 Visit Diagnosis Plan: DM w/o [...] T85.818A 04/11/2019 Appointment: Janneth Shrestha WPtel: [address] [place], [place] [id number] ACUTE ILLNESS 04/11/2019 Patient Education: metoprolol succinate- [employer] Co upon [id number] https://www.[employer]/resources/getResource/61/wn997711-44iq-9j76-13 Completed 04/11/2019 Patient Education: Metformin Patient Savings Message Alert Completed 04/11/2019 Patient Education: cephalexin- [employer] Coupon [id number] https://www.[employer]/resources/LiveRSVPource/61/4uww3505-0h3g-4567-in Completed 04/11/2019 Visit Diagnosis Plan: Folliculitis Discussion: Bactrim and topical bactroban ICD-9 : 704.8 ICD-10 : L73.9 03/01/2019 Visit Diagnosis Plan: Sinus tachycardia Discussion: St art low dose metoprolol ER 25mg daily Monitor pulse Sees Cardiology next month ICD-9 : 427.89 ICD-10 : R00.0 03/01/2019 Appointment: Janneth Shrestha WPtel: [address] [place] [address] [place] FOLLOW UP 03/01/2019 Patient Education: mupirocin- [employer] Coupon [id number] https://www.[employer]/resources/getResource/61/pa288us7-62yk-961c-zz Completed 03/01/2019 Appointment: Janneth Shrestha WPtel: [address] [place] [address] [place] CANCELED 12/20/2018 Visit Diagnosis Plan: Cellulitis [...] : M76.72 11/18/2018 Appointment: [facility] [place] CANCEL[facility] 11/18/2018 Appointment: [facility]rest[facility] [id number] [place] FOLLOW UP 11/18/2018 Patient Education: doxycycline monohydrate- [employer] Coupon [id number] https://www.[employer]Backpack/resources/getResource/61/drs71566-e7z4-25r2-5b Completed 11/18/2018 Patient Education: prednisone- [employer] Coupon [id number] https://www.[employer]pack/resources/getResource/61/01ot0s4y-8ka9-2924-vv Completed 11/18/2018 Care Plan: Referral Order SNOMED-CT : 30 [id number] Pending 11/18/2018 Visit Diagnosis Plan: Venous insufficiency [...] evaluated in an ED whether it be [place] or wherever he's traveling. discussed the risk [...] : R23.3 11/09/2018 Appointment: Vania García [address] [facility] ACUTE ILLNESS 11/09/2018 Patient Education: clindamycin HCl- [employer] Coupon [id number] https://www.[employer].Care.com/sampleBackpack/resources/getResource/61/84yh40u2-ut73-2kq8-5n Completed 11/09/2018 Appointment: [facility]rest[facility]el[facility] [facility] [facility]ED 10/19/2018 Visit Diagnosis Plan: Pain in [...] ICD-10 : L03.116 10/13/2018 Appointment: Vania García [address] [place], [place] [id number] Patient cant pay copay till when he [...] : M54.5 09/23/2018 Appointment: [facility] [facility] 09/23/2018 Patient Education: Medrol (Brenden)- [employer] Coupon [phone] https://www.[employer]/resources/getResource/61/zdec657k-0021-75v2-60 Completed 09/23/2018 Visit Diagnosis Plan: Dysphagia, pharyngoesophageal ph ase Discussion: Referral for EGD ICD-9 : 787.24 ICD-10 : R13.14 09/06/2018 Visit Diagnosis Plan: Gastro-esophageal reflux disease without esophagitis Discussion: Start omeprazole ICD-9 : 530.81 ICD-10 : K21.9 09/06/2018 Appointment: Janneth [facility]restha [facility]Ptel[facility] [facility] [facility] ACUTE ILLNESS 09/06/2018 Patient Education: omeprazole- [employer] Coupon [id number] https://www.[employer]/resources/getResource/61/350wa444-36p0-313t-44 Completed 09/06/2018 Care Plan: Referral Order SNOMED-CT : 30 [id number] Pending 09/06/2018 Visit Diagnosis Plan: Tinea corporis Discussion: nysta tin to be used bid until rash gone and then an additional 2 days. diflucan every 3 days for 3 doses. keep area clean and dry with no moisturizers. call office if no improvement in 2 weeks or if worsening. ICD-9 : 110.5 ICD-10 : B35.4 07/15/2018 Appointment: [facility] Garc[facility] [facility] 07/15/2018 Patient Education: nystatin- [employer] Coupon [id number] https://www.[employer]/resources/getResource/61/34zcb045-r6yo-00po-0x Completed 07/15/2018 Patient Education: Plavix- [employer] Coupon [id number] https://www.[employer]/samplemd/resources/getResource/61/24oq3a63-s63f-91hl-43 fa-k708j2078075.pdf Completed 07/15/2018 Patient Education: cyclobenzaprine- [employer] Coupon [id number] https://www.[employer]/samplemd/resources/getResource/61/14699g3x-4b24-81l9-vc Completed 07/15/2018 Visit Diagnosis Plan: Cellulitis of [...] ICD-10 : L03.032 2018 Appointment: Mandy Hollins [address] [place] [address] FOLLOW UP 2018 Patient Education: mupirocin- [employer] Coupon [id number] https://www.[employer].Care.com/samplemd/resources/getResource/61/q7cv26s9-8063-6369-4d Completed 2018 Visit Diagnosis Plan: Cellulitis of [...] : R20.9 04/14/2018 Appointment: Mandy Hollins [address] [place] [address] FOLLOW UP 04/14/2018 Visit Diagnosis Plan: Cellulitis [...] ICD-10 : G47.00 03/18/2018 Appointment: Vania García [address] [place], [place] [id number] ACUTE ILLNESS 03/18/2018 Patient Education: cyclobenzaprine- [employer] Coupon [id number] https://www.[employer].com/samplemd/resources/getResource/61/5695p491-9pv4-210e-r6 Completed 03/18/2018 Visit Diagnosis Plan: Rash and other nonspecific skin eruption Discussion: triamcinolone ordered to be used as directed. ICD-9 : 782.1 ICD-10 : R21 01/26/2018 Visit Diagnosis Plan: Other postprocedur al complications and disorders of the circulatory system, not elsewhere classified Discussion: discussed with dr. shrestha and patient was instructed [facility] due to uncontrolled pain, continued erythema, patient needs to be re-evaluated by the surgeon. 60 mg toradol given to patient. patient verbalized understanding and voiced he will contact them today for an appointment. ICD-9 : 997.1 ICD-10 : I97.89 01/26/2018 App[facility]ment: [facility] [facility] Up 01/26/2018 Appointment: Janneth Shrestha WPtel: [address] [facility] NO SHOW 01/06/2018 Visit Diagnosis Plan: [...] : I97.89 12/22/2017 Appointment: [facility] [facility] 12/22/2017 Visit Diagnosis Plan: Unspecified [...] ICD-10 : J01.90 10/06/2017 Appointment: Vania García [address] [place], [place] [id number] ACUTE ILLNESS 10/06/2017 Patient Education: Patient Medication Summary Completed 10/06/2017 Appointment: Vania García [address] [place], [place] [phone] ER Follow UP 08/17/2017 Appointment: Vania García [address] [place], [place] [phone] [place] CANCELED 07/03/2017 Appointment: Janneth Shrestha WPtel: [address] [facility] [place] canceled at 8:05 this [...] T44.3X1S 02/03/2017 Appointment: Janneth Shrestha WPtel: [address] [facility] [facility] Follow Up 02/03/2017 Patient Education: [...] Discussion: re isabella sent 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 ICD-9 : 729.5 ICD-10 : M79.672 11/25/2016 Visit Diagnosis Plan: Insomnia, unspecified Recommenda tions: resolved with lunesta. continue taking as prescribed. ICD-9 : 780.52 ICD-10 : G47.00 11/25/2016 Appointment: Vania García [address] [place], [place] [phone] FOLLOW UP 11/25/2016 Patient Education: Patient Medication [...] ICD-10 : K59.00 11/14/2016 Appointment: Vania García [address] [place] [address] ACUTE ILLNESS 11/14/2016 Patient Education: Patient Medication Summary Completed 11/14/2016 Visit Diagnosis Plan: Acute upper respiratory infectio n, unspecified Discussion: Rxs as above Continue OTC and supportive meds Encouraged smoking cessation Follow up PRN ICD-9 : 465.9 ICD-10 : J06.9 04/02/2016 Appointment: Ester Grande [address] [place] [address] ACUTE ILLNESS 04/02/2016 Patient Education: Patient Medication Summary Completed 04/02/2016 Visit Plan: Rxs as above Supportive care reviewed Follow up PRN 11/29/2015 Appointment: Ester Grande [address] 11/27 confirmed~sl ACUTE ILLNESS 11/29/2015 Patient [...] for pain 06/27/2015 [facility]ointment: [facility] [place] 06/25 lm ~sl 06/26 phone not on~sl FOLLOW UP 06/27/2015 Patient Education: Patient Medication Summary Completed 06/27/2015 Care Plan: X-RAY EXAM RIBS UNI 2 VIEWS L OINC : 78274-0 Pending 06/27/2015 Referral: Héctor Woodard WPtel: [address] [facility] 05/29 Scheduled with sena ~sl Appointment Re quested 06/26/2015 Referral: Cameron Khanna WPtel: [phone] [facility] [place] Referral Initiated 06/11/2015 Referral: Marco Antonio Green WPtel: [address] [id number] 05/30/15 Needs to be there at pre op time per ~sl Initiated 06/04/2015 Visit Plan: Will get all necessary refer rals set up - CTS, Uro and G/S Swallow study and routine labs ordered Will further investigate left leg pain with EMG if not cardio related 05/24/2015 Appointment: Ester Grande [address] [facility] NEW PATIENT 05/24/2015 Patient Education: Patient Medication Summary Completed 05/24/2015 Care Plan: Referral Order SNOMED-CT : 30 [id number] Pending 05/24/2015 Care Plan: Referral Order SNOMED-CT : 30 3405667 Pending 05/24/2015 Care Plan: Referral Order SNOMED-CT : 30 [id number] Pending 05/24/2015 Referral: Sudheer Gann WPtel: [address] [facility] [place] Referral Appointment Requested Referral: Alfonzo Andujar WPtel: [address] [facility] [place] Referral Initiated Referral: [facility] [address] [id number] [place] Referral Completed Referral: Cameron Khanna WPtel: [address] [facility] [place] Referral Appointment Requested Referral: Brianna Rose WPtel: [address] [place] [address] [place] Referral Initiated Referral: Héctor Woodard WPtel: [address] 05/24/15 [facility] office suggested he see another card. ~sl Initiated Referral: Alfonzo Andujar WPtel: [address] [place] [address] [place] Referral Appointment Requested Referral: Marco Antonio Green WPtel: [address] [place] [address] [place] Referral Appointment Requested Instructions Comment . [...]
--- OUTSIDE RECORDS SUMMARY | 2019-08-06 10:26 | XMS REPORT | CCD ---
Author Author [place] Organization JANNETH SHRESTHA DO [facility] Address [address] [place] [address] Phone Unavailable Care Team Providers Care Software Trainer Name Role Phone Janneth Shrestha D.O., PP Unavailable CCM Unavailable Summary Purpose Interface Exchange Insurance Providers Payer name Policy type / Coverage type Covered alliance party ID Effective Begin Date Effective End Date Blue Cross Blue Shield Blue Cross/Blue Shield [id number] Unknown Family History Family History data not found Social History Social History Element Codes Description Effective Dates Marital status Unknown 05/24/2015 Number of children Unknown 2 05/24/2015 Employment Unknown Currently employed 05/24/[address]: 43200101 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 [...] 50 mg tablet,extended release 24 hr RxNorm: 394032 1 Tablet(s) Oral QD 08/01/2019 10/30/2019 Active Xarelto 20 mg tablet RxNorm: 0743864 1 Tablet(s) Oral QD 04/25/2019 No Stop Date Active Plavix 75 mg tablet RxNorm: 461373 TAKE ONE TABLET BY MOUTH DAILY 0 04/25/2019 04/26/2019 Inactive amiodarone 200 mg tablet RxNorm: 851686 1 Tablet(s) Oral QD No Stop Date Active metformin ER 500 mg 24 hr tablet,extended release RxNorm: 18 60073 1 Tablet(s) Oral two times a day 04/25/2019 07/24/2019 Active Plavix 75 mg tablet RxNorm: 127319 TAKE ONE TABLET BY MOUTH DAILY 0 04/25/2019 04/24/2019 Inactive prednisone 20 mg tablet RxNorm: 452831 1 Tablet(s) Oral two jn es a day 04/25/2019 05/01/2019 Inactive aspirin 81 mg tablet,delayed release RxNorm: 165792 1 Tablet(s) Oral QD 04/11/2019 No Stop Date Active pantoprazole 40 mg tablet,delayed release RxNorm: 984225 1 Tabl et(s) Oral QAM 04/11/2019 No Stop Date Active Vitamin C 1,000 mg tablet RxNorm: 527111 1 Tablet(s) Oral QD 2019 No Stop Date Active Xarelto 15 mg tablet RxNorm: 2994549 1 Tablet(s) Oral QD 04/11/2019 0 04/24/2019 Inactive metformin ER 500 mg 24 hr tablet,extended release RxNorm: 18 09672 1 Tablet(s) Oral QD 04/11/2019 04/24/2019 Inactive cephalexin 500 mg capsule RxNorm: 716677 1 Capsule(s) Oral thre e times a day 04/11/2019 04/18/2019 Inactive metoprolol succinate ER 50 mg tablet,extended release 24 hr RxNorm: 326915 1 Tablet(s) Oral QD replaces 25mg dose 04/11/2019 05/01/2019 Inactive cyclobenzaprine 10 mg tablet RxNorm: 169261 TAKE ONE TA BLET BY MOUTH EVERY NIGHT AT BEDTIME NEEDED 03/11/2019 No Stop Date Active mupirocin 2 % topical ointment RxNorm: 732116 Applicati on Topical two times a day 03/01/2019 04/10/2019 Inactive metoprolol succinate ER 25 mg tablet,extended release 24 hr RxNorm: 784969 1 Tablet(s) Oral QD 03/01/2019 04/24/2019 Inactive Bactrim DS 800 mg-160 mg tablet RxNorm: 846272 1 Tablet(s) Oral two times a day 03/01/2019 03/11/2019 Inactive omeprazole 40 mg capsule,delayed release RxNorm: 063476 TAKE ONE CAPSULE BY MOUTH EVERY NIGHT AT BEDTIME FOR REFLUX 01/10/2019 No Stop Date Active cyclobenzaprine 10 mg tablet RxNorm: 856569 TAKE ONE TA BLET BY MOUTH EVERY NIGHT AT BEDTIME NEEDED 01/10/2019 03/10/2019 Inactive Plavix 75 mg tablet RxNorm: 993522 TAKE ONE TABLET BY MOUTH DAILY 1 03/12/2018 04/24/2019 Inactive tramadol 50 mg tablet RxNorm: 282771 1 Tablet(s) Oral f our times a day as needed 01/03/2019 01/03/2019 Inactive doxycycline monohydrate 100 mg capsule RxNorm: 9475064 1 Capsule(s) Oral two times a day 11/22/2018 12/13/2018 Inactive prednisone 20 mg tablet RxNorm: 563851 1 Tablet(s) Oral two jn es a day 11/22/2018 11/29/2018 Inactive Levaquin 750 mg tablet RxNorm: 511378 Tablet(s) Oral 11/18/201802/28 Inactive prednisone 20 mg tablet RxNorm: 457601 1 Tablet(s) Oral two jn es a day 11/18/2018 11/21/2018 Inactive tramadol 50 mg tablet RxNorm: 511013 Tablet(s) Oral 11/18/20182018 Inactive doxycycline monohydrate 100 mg capsule RxNorm: 4601661 1 Capsule(s) Oral two times a day 11/18/2018 11/21/2018 Inactive Plavix 75 mg tablet RxNorm: 661078 TAKE ONE TABLET BY MOUTH DAILY 0 11/10/2018 01/08/2019 Inactive clindamycin HCl 300 mg capsule RxNorm: 557476 1 Capsule (s) Oral three times a day 11/09/2018 11/19/2018 Inactive Keflex 500 mg capsule RxNorm: 354271 1 Capsule(s) PO BID 10/13/2018 0 10/22/2018 Inactive Medrol (Brenden) 4 mg tablets in a dose pack RxNorm: 473008 Tablet(s) take as directed PO 09/23/2018 10/12/2018 Inactive omeprazole 40 mg capsule,delayed release RxNorm: 878578 1 Capsule(s) PO QHS for reflux 09/06/2018 11/04/2018 Inactive cyclobenzaprine 10 mg tablet RxNorm: 878855 1 Tablet(s) PO QHS as needed 07/15/2018 10/12/2018 Inactive Diflucan 150 mg tablet RxNorm: 030574 1 Tablet(s) PO Q72H 07/15/2018 09/05/2018 Inactive nystatin 100,000 unit/gram topical cream RxNorm: 934445 1 Gram( s) TOP BID 07/15/2018 09/05/2018 Inactive Plavix 75 mg tablet RxNorm: 255405 1 Tablet(s) PO QD 07/15/201810/12 Inactive cyclobenzaprine 10 mg tablet RxNorm: 876078 1 Tablet(s) PO QHS as needed 06/10/2018 06/09/2018 Inactive cyclobenzaprine 10 mg tablet RxNorm: 621715 TAKE ONE TA BLET BY MOUTH EVERY NIGHT AT BEDTIME NEEDED 05/10/2018 06/10/2018 Inactive mupirocin 2 % topical ointment RxNorm: 257807 1 Application TOP BID 2018 05/25/2018 Inactive 22 gram cyclobenzaprine 10 mg tablet RxNorm: 726610 1 Tablet(s) PO QHS as needed 04/14/2018 06/09/2018 Inactive doxycycline hyclate 100 mg tablet RxNorm: 9866281 1 Tablet(s) PO BI D 04/14/2018 04/23/2018 Inactive cyclobenzaprine 10 mg tablet RxNorm: 277117 1 Tablet(s) PO QHS as needed 04/07/2018 04/13/2018 Inactive Bactrim DS 800 mg-160 mg tablet RxNorm: 335791 1 Tablet(s) PO BID 0 03/18/2018 03/27/2018 Inactive cyclobenzaprine 10 mg tablet RxNorm: 673287 1 Tablet(s) PO QHS as needed 03/18/2018 04/06/2018 Inactive triamcinolone acetonide 0.1 % topical cream RxNorm: 6635495 APPLY TO AFFECTED AREA(S) TWO TIMES A DAY 02/03/2018 02/12/2018 Inactive triamcinolone acetonide 0.1 % topical cream RxNorm: 5279420 1 Application TOP BID 01/26/2018 02/02/2018 Inactive Medrol (Brenden) 4 mg tablets in a dose pack RxNorm: 952319 TAKE BY MOUTH INSTRUCTED - PER PACKAGE INSTRUCTIONS 12/11/2017 12/16/2017 Inactive Medrol (Brenden) 4 mg tablets in a dose pack RxNorm: 423119 Tablet(s) P O 10/06/2017 12/10/2017 Inactive Lunesta 3 mg tablet RxNorm: 854762 1 Tablet(s) PO QHS 11/25/201608/2016 Inactive Lunesta 3 mg tablet RxNorm: 010897 1 Tablet(s) PO QHS 11/14/201610/2016 Inactive Bactrim DS 800 mg-160 mg tablet RxNorm: 968361 1 Tablet(s) PO BID 0 11/14/2016 11/23/2016 Inactive Epi E-Z Pen 0.3 mg/0.3 mL injection, auto-injector RxNorm: 1 045219 Milliliter(s) IM Use as Directed 06/25/2016 09/05/2018 Inactive amoxicillin 875 mg tablet RxNorm: 771238 1 Tablet(s) PO BID 017 04/11/2016 Inactive prednisone 20 mg tablet RxNorm: 940952 1 Tablet(s) PO BID 04/02/2016 04/06/2016 Inactive azithromycin 250 mg tablet RxNorm: 764472 2 Tablet(s) P O on day one then 1 tab on days 2-5 11/29/2015 11/28/2015 Inactive Medrol (Brenden) 4 mg tablets in a dose pack RxNorm: 956519 Take as directed 11/29/2015 11/13/2016 Inactive meloxicam 15 mg tablet RxNorm: 688915 1 Tablet(s) PO QD 07/02/2015 Inactive Chantix Starting Month Box 0.5 mg (11)-1 mg (42) table ts in dose pack RxNorm: 327398 Tablet(s) PO As Directed 06/20/2015 07/10/2015 Inactive omeprazole 40 mg capsule,delayed release RxNorm: 391035 1 Capsu le(s) PO QD 05/31/2015 11/13/2016 Inactive omeprazole 40 mg capsule,delayed release RxNorm: 724025 1 Capsu le(s) PO QD 05/31/2015 05/30/2015 Inactive Lactobacillus acidophilus-Bifidobacterium longum oral RxNorm: oral No Start Date Active Multivitamin And Mineral oral RxNorm: oral No Start Date Active Wellbutrin SR 150 mg tablet,sustained-release RxNorm: 020142 1 Tablet(s) PO BID No Start Date 11/13/2016 Inactive gabapentin 100 mg capsule RxNorm: 972851 1 Capsule(s) PO TID No Sta rt Date 03/17/2018 Inactive Chantix Starting Month Box 0.5 mg (11)-1 mg (42) table ts in dose pack RxNorm: 551862 Tablet(s) PO As Directed No Start Date 06/19/2015 Inactive Eliquis 5 mg tablet RxNorm: 2212140 1 Tablet(s) PO BID No Start Date 03/17/2018 Inactive aspirin 325 mg tablet RxNorm: 259379 1 Tablet(s) PO QD No Start Date 11/13/2016 Inactive clindamycin HCl 300 mg capsule RxNorm: 661624 2 Capsule(s) PO Q8H N o Start Date 03/17/2018 Inactive Fish Oil 1,000 mg (120 mg-180 mg) capsule RxNorm: 1 Caps ule(s) PO QD No Start Date 09/05/2018 Inactive aspirin 81 mg tablet RxNorm: 468959 1 Tablet(s) PO QD No Start Date 1 03/28/2017 Inactive Fish Oil 1,000 mg capsule RxNorm: 1 Capsule(s) PO QD No Start Date 11/13/2016 Inactive Baby Aspirin 81 mg chewable tablet RxNorm: 133087 1 Tablet(s) P O BID No Start Date 02/02/2017 Inactive Xarelto 10 mg tablet RxNorm: 1995985 1 Tablet(s) PO QD No Start Date 01/25/2018 Inactive tramadol 50 mg tablet RxNorm: 247428 1-2 Tablet(s) PO Q6H No Start Date 03/17/2018 Inactive meloxicam 15 mg tablet RxNorm: 363710 1 Tablet(s) PO QD No Start Da te 07/01/2015 Inactive Epi E-Z Pen 0.3 mg/0.3 mL injection, auto-injector RxNorm: 1 170786 Milliliter(s) IM Use as Directed No Start Date 06/24/2016 Inactive Plavix 75 mg tablet RxNorm: 219727 1 Tablet(s) PO QD No Start Date Inactive Medication Administered No Medication Administered data Immunizations No Immunization data Results Observation Observation Code Item Item Code Result Date S vice Location COMPREHENSIVE METABOLIC 07764 AST 25 U/L 2018 Unknown COMPREHENSIVE METABOLIC 60253 ALT 28 U/L 2018 Unknown COMPREHENSIVE METABOLIC 20543 BUN 13 mg/dL 2018 Unknown COMPREHENSIVE METABOLIC 03591 ALBUMIN 4.2 g/dL 2018 Unknown COMPREHENSIVE METABOLIC 72642 CHLORIDE 104 mmol/L 11/09 Unknown COMPREHENSIVE METABOLIC 61922 Bili Total 0.5 mg/dL 11/09 Unknown COMPREHENSIVE METABOLIC 86709 ALK PHOS 72 U/L 2018 Unknown COMPREHENSIVE METABOLIC 60565 SODIUM 139 mmol/L 11/09 Unknown COMPREHENSIVE METABOLIC 69180 CREATININE 0.98 mg/dL 10/18 Unknown COMPREHENSIVE METABOLIC 09071 CALCIUM 9.1 mg/dL 2018 Unknown COMPREHENSIVE METABOLIC 87847 POTASSIUM 3.7 mmol/L 11/09 Unknown COMPREHENSIVE METABOLIC 71308 Total Protein 7.2 g/dL Unknown COMPREHENSIVE METABOLIC 89718 Glucose 137 mg/dL 2018 Unknown COMPREHENSIVE METABOLIC 74721 Bicarbonate 24 mmol/L 10/18 Unknown COMPREHENSIVE METABOLIC 79327 AGAP 11 mmol/L 2018 Unknown COMPLETE BLOOD COUNT [id number] WBC 4.6 10e9/L 11/10/19 19 Unknown COMPLETE BLOOD COUNT [id number] RBC 4.88 10e12/L 2018 Unknown COMPLETE BLOOD COUNT [id number] HEMOGLOBIN 14.7 g/dL 11/10/19 19 Unknown COMPLETE BLOOD COUNT [id number] HEMATOCRIT 43.7 % 11/10/19 19 Unknown COMPLETE BLOOD COUNT [id number] MCV 89.5 fL 9 Unknown COMPLETE BLOOD COUNT [id number] MCH 30.1 pg 9 Unknown COMPLETE BLOOD COUNT 2893919 MCHC 33.6 g/dL 9 Unknown COMPLETE BLOOD COUNT [id number] PLATELET COUNT 179 10e9/L Unknown COMPLETE BLOOD COUNT 5001242 Mean Plt Volume 11.6 fL Unknown COMPLETE BLOOD COUNT [id number] Neut Auto 55.5 % 9 Unknown COMPLETE BLOOD COUNT [id number] Lymph Auto 28.7 % 11/10/19 19 Unknown COMPLETE BLOOD COUNT [id number] Taylor Auto 7.9 % 9 Unknown COMPLETE BLOOD COUNT [id number] RDW 13.2 % 9 Unknown COMPLETE BLOOD COUNT 0463299 Eos Auto 7.7 % 9 Unknown COMPLETE BLOOD COUNT 8384019 Baso Auto 0.2 % 9 Unknown COMPLETE BLOOD COUNT [id number] Neutrophil Abs 2.55 10e9/L Unknown COMPLETE BLOOD COUNT [id number] Lymphocyte Abs 1.32 10e9/L Unknown COMPLETE BLOOD COUNT [id number] Monocyte Abs 0.36 10e9/L 10/18 Unknown COMPLETE BLOOD COUNT [id number] Eosinophil Abs 0.35 10e9/L Unknown COMPLETE BLOOD COUNT 8045708 RDW-SD 42.2 fL 9 Unknown COMPLETE BLOOD COUNT [id number] Basophil Abs 0.01 10e9/L 10/18 Unknown LIPID GROUP 82953 Cholesterol 205 mg/dL 11/09/2018 Unkno wn LIPID GROUP 23825 Triglyceride 268 mg/dL 11/09/2018 Unkn own LIPID GROUP 80831 HDL CHOLESTEROL 35 mg/dL 11/09/2018 U nknown LIPID GROUP 86299 Chol/HDL Ratio 5.86 ratio 11/09/2018 U nknown LIPID GROUP 16043 NON-HDL Chol 170 mg/dL 11/09/2018 Unkn own L[facility] GROUP 12055 LDL Cholesterol 116 mg/dL 11/09/2018 U nknown PT 8756446 PT 12.7 Seconds 11/09/2018 Unknow n PT [id number] INR 0.9 11/09/2018 Unknown GFR CALC 0828266 GFR Non Afr Amr >60 mL/min 11/09/2018 Un known GFR CALC 6109961 GFR Afr Amr >60 mL/min 11/09/2018 Unknow n ACT PARTIAL THRMBOPLASTIN TIME 60513 PTT 34.0 Seco nds 11/09/2018 Unknown LIPID GROUP 03398 Cholesterol 186 mg/dL 2018 Unkno wn LIP[facility] GROUP 77103 Triglyceride 229 mg/dL 2018 Unkn own L[facility] GROUP 04195 HDL CHOLESTEROL 36 mg/dL 2018 U nknown LIP[facility] GROUP 08540 Chol/HDL Ratio 5.17 ratio 2018 U nknown LIP[facility] GROUP 35981 NON-HDL Chol 150 mg/dL 2018 Unkn own [facility] GROUP 09662 LDL Cholesterol 104 mg/dL 2018 U nknown GFR CALC 1711348 GFR Non Afr Amr >60 mL/min 2018 Un known GFR CALC 3187610 GFR Afr Amr >60 mL/min 2018 Unknow n COMPREHENSIVE METABOLIC 94491 AST 23 U/L 2018 Unknown COMPREHENSIVE METABOLIC 93548 ALT 22 U/L 2018 Unknown COMPREHENSIVE METABOLIC 66297 BUN 15 mg/dL 2018 Unknown COMPREHENSIVE METABOLIC 60017 ALBUMIN 4.1 g/dL 2018 Unknown COMPREHENSIVE METABOLIC 79589 CHLORIDE 106 mmol/L 05/06 Unknown COMPREHENSIVE METABOLIC 37751 Bili Total 0.6 mg/dL 05/06 Unknown COMPREHENSIVE METABOLIC 92478 ALK PHOS 61 U/L 2018 Unknown COMPREHENSIVE METABOLIC 89530 SODIUM 141 mmol/L 05/06 Unknown COMPREHENSIVE METABOLIC 96560 CREATININE 0.91 mg/dL 04/17 Unknown COMPREHENSIVE METABOLIC 69169 CALCIUM 9.2 mg/dL 2018 Unknown COMPREHENSIVE METABOLIC 31113 POTASSIUM 3.8 mmol/L 05/06 Unknown COMPREHENSIVE METABOLIC 06635 Total Protein 7.0 g/dL Unknown COMPREHENSIVE METABOLIC 36914 Glucose 97 mg/dL 2018 Unknown COMPREHENSIVE METABOLIC 04693 Bicarbonate 28 mmol/L 04/17 Unknown COMPREHENSIVE METABOLIC 92816 AGAP 7 mmol/L 2018 Unknown THYROID STIMULATING HORMONE 87097 TSH 2.094 uIU/mL 2018 Unknown COMPLETE BLOOD COUNT 5559484 WBC 5.5 10e9/L 05/07/19 19 Unknown COMPLETE BLOOD COUNT 7166575 RBC 4.61 10e12/L 2018 Unknown COMPLETE BLOOD COUNT 8140722 HEMOGLOBIN 13.6 g/dL 05/07/19 19 Unknown COMPLETE BLOOD COUNT 7251374 HEMATOCRIT 40.0 % 05/07/19 19 Unknown COMPLETE BLOOD COUNT 3255651 MCV 86.8 fL 9 Unknown COMPLETE BLOOD COUNT 5377400 MCH 29.5 pg 9 Unknown COMPLETE BLOOD COUNT 1760280 MCHC 34.0 g/dL 9 Unknown COMPLETE BLOOD COUNT 0690537 PLATELET COUNT 197 10e9/L Unknown COMPLETE BLOOD COUNT 8514082 Mean Plt Volume 10.8 fL Unknown COMPLETE BLOOD COUNT 3688822 Neut Auto 49.6 % 9 Unknown COMPLETE BLOOD COUNT [id number] Lymph Auto 36.8 % 05/07/19 19 Unknown COMPLETE BLOOD COUNT 8586055 Taylor Auto 8.1 % 9 Unknown COMPLETE BLOOD COUNT 4277648 RDW 15.3 % 9 Unknown COMPLETE BLOOD COUNT 8593661 Eos Auto 5.3 % 9 Unknown COMPLETE BLOOD COUNT 8324697 Baso Auto 0.2 % 9 Unknown COMPLETE BLOOD COUNT 8434957 Neutrophil Abs 2.73 10e9/L Unknown COMPLETE BLOOD COUNT 0159520 Lymphocyte Abs 2.02 10e9/L Unknown COMPLETE BLOOD COUNT 0113016 Monocyte Abs 0.45 10e9/L 04/17 Unknown COMPLETE BLOOD COUNT [id number] Eosinophil Abs 0.29 10e9/L Unknown COMPLETE BLOOD COUNT 5376205 RDW-SD 47.9 fL 9 Unknown COMPLETE BLOOD COUNT 1643404 Basophil Abs 0.01 10e9/L 04/17 Unknown Procedures Procedure Codes Date CEFTRIAXONE SODIUM INJECTION CPT-4: J0696 11/09/2018 THER/PROPH/DIAG INJ SC/IM CPT-4: 90690 11/09/2018 ROUTINE VENIPUNCTURE CPT-4: 06820 11/09/2018 COMPREHEN METABOLIC PANEL CPT-4: 60056 11/09/2018 COMPLETE CBC W/AUTO DIFF WBC CPT-4: 05039 11/09/2018 LIPID PANEL CPT-4: 37715 11/09/2018 PROTHROMBIN TIME CPT-4: 19372 11/09/2018 THROMBOPLASTIN TIME PARTIAL CPT-4: 29918 11/09/2018 THER/PROPH/DIAG INJ SC/IM CPT-4: 46450 09/23/2018 KETOROLAC TROMETHAMINE INJ CPT-4: J1885 09/23/2018 ROUTINE VENIPUNCTURE CPT-4: 89598 2018 ASSAY THYROID STIM HORMONE CPT-4: 01115 2018 COMPREHEN METABOLIC PANEL CPT-4: 44176 2018 COMPLETE CBC W/AUTO DIFF WBC CPT-4: 33474 2018 LIPID PANEL CPT-4: 10221 2018 CEFTRIAXONE SODIUM INJECTION CPT-4: J0696 04/14/2018 THER/PROPH/DIAG INJ SC/IM CPT-4: 81296 04/14/2018 CEFTRIAXONE SODIUM INJECTION CPT-4: J0696 03/18/2018 THER/PROPH/DIAG INJ SC/IM CPT-4: 92459 03/18/2018 THER/PROPH/DIAG INJ SC/IM CPT-4: 94085 01/26/2018 KETOROLAC TROMETHAMINE INJ CPT-4: J1885 01/26/2018 CEFTRIAXONE SODIUM INJECTION CPT-4: J0696 12/22/2017 THER/PROPH/DIAG INJ SC/IM CPT-4: 49397 12/22/2017 ROUTINE VENIPUNCTURE CPT-4: 74568 11/14/2016 COMPLETE CBC W/AUTO DIFF WBC CPT-4: 02311 11/14/2016 PT/PTT CPT-4: 1569809 11/14/2016 Vital Signs Date Vital 05/02/2019 Blood [...] 1: 134/82 Code: 8480-6 BMI: 23.9 Code: 06669-9 Heart Rate 1: 100 bpm Height: 6'4" [...] 1: 138/70 Code: 8480-6 BMI: 22.6 Code: 01196-0 Heart Rate 1: 97 bpm Height: 6'4" [...] 1: 142/80 Code: 8480-6 BMI: 20.9 Code: 22132-3 Heart Rate 1: 108 bpm Height: 6'4" Respiratory Rate: 20 bpm SpO2: 97% Tempera ture: 36.6 (C) / 97.9 (F) Weight: 172 lbs 01/26/2018 Blood Pressure 1: 130/82 Code: 8480-6 Heart Rate 1: 98 bpm Respiratory Rate: 18 bpm SpO2: 99% Temperature: 35.7 (C) / 96.3 (F) We ight: 175 lbs 12/22/2017 Blood Pressure 1: 124/68 Code: 8480-6 BMI: 22.3 Code: 69070-4 Heart Rate 1: 100 bpm Height: 6'4" Respiratory Rate: 20 bpm SpO2: 98% Tempera ture: 36.7 (C) / 98.0 (F) Weight: 183 lbs 10/06/2017 Blood Pressure 1: 130/86 Code: 8480-6 BMI: 21.1 Code: 65152-8 Heart Rate 1: 92 bpm Height: 6'4" Respiratory Rate: 18 bpm SpO2: 98% Tempera ture: 36.9 (C) / 98.5 (F) Weight: 173 lbs 02/03/2017 Blood Pressure 1: 144/92 Code: 8480-6 BMI: 20.8 Code: 19099-2 Heart Rate 1: 88 bpm Height: 6'4" Respiratory Rate: 20 bpm SpO2: 97% Tempera ture: 36.7 (C) / 98.1 (F) Weight: 171 lbs 11/25/2016 Blood Pressure 1: 126/84 Code: 8480-6 Heart Rate 1: 76 bpm Respiratory Rate: 20 bpm SpO2: 96% Temperature: 36.9 (C) / 98.4 (F) We ight: 170 lbs 11/14/2016 Blood Pressure 1: 126/82 Code: 8480-6 BMI: 20.7 Code: 58533-1 Heart Rate 1: 86 bpm Height: 6'4" Respiratory Rate: 18 bpm SpO2: 96% Tempera ture: 35.8 (C) / 96.5 (F) Weight: 170 lbs 04/02/2016 Blood Pressure 1: 124/78 Code: 8480-6 Heart Rate 1: 88 bpm Respiratory Rate: 24 bpm SpO2: 97% Temperature: 36.1 (C) / 97.0 (F) We ight: 161 lbs 11/29/2015 Blood Pressure 1: 124/68 Code: 8480-6 BMI: 19.2 Code: 25206-3 Heart Rate 1: 94 bpm Height: 6'4" Respiratory Rate: 18 bpm SpO2: 97% Tempera ture: 36.1 (C) / 97.0 (F) Weight: 158 lbs 06/27/2015 Blood Pressure 1: 128/78 Code: 8480-6 BMI: 18.7 Code: 30695-7 Heart Rate 1: 72 bpm Height: 6'4" Respiratory Rate: 22 bpm SpO2: 98% Tempera ture: 35.9 (C) / 96.6 (F) Weight: 154 lbs 05/24/2015 Blood Pressure 1: 112/78 Code: 8480-6 BMI: 19.7 Code: 23217-4 Heart Rate 1: 78 bpm Height: 6'4" [...] care Encounters Encounter Performer Location Codes Date ([id number]) OFFICE/OUTPATIENT VISIT EST Diagnosis: Acute dermatitis[ICD10: L30.9] Diagnosis: DM w/o complication type II, uncontrolled[ICD10: E11.65] Diagnosis: Right leg DVT[ICD10: I82.401] Janneth SHRESTHA [facility] CPT-[facility]: 95925 05/02/2019 ([id number]) OFFICE/OUTPATIENT VISIT EST Diagnosis: DM w/o complication type II, uncontrolled[ICD10: E11.65] Diagnosis: Allergic dermatitis[ICD10: L23.9] Diagnosis: Right leg DVT[ICD10: I82.401] Diagnosis: Paroxysmal atrial fibrillation[ICD10: I48.0] Diagnosis: Right calf pain[ICD10: M79.661] Janneth SHRESTHA [facility] CPT-4: 49485 04/25/2019 ([id number]) OFFICE/OUTPATIENT VISIT EST Diagnosis: DM w/o complication type II, uncontrolled[ICD10: E11.65] Diagnosis: 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, implant, or graft[ICD10: T85.818A] Diagnosis: Essential hypertension[ICD10: I10] Janneth Clarkguanako REGINE FLOR SHRESTHA [facility] CPT-4: 74006 04/11/2019 ([id number]) OFFICE/OUTPATIENT VISIT EST Diagnosis: Sinus tachycardia[ICD10: R00.0] Diagnosis: Folliculitis[ICD10: L73.9] Janneth HARDY [facility] CPT-4: 76471 03/01/2019 ([id number]) OFFICE/OUTPATIENT VISIT EST Diagnosis: Cellulitis of left lower limb[ICD10: L03.116] Diagnosis: Tendinitis of left peroneus longus tendon[ICD10: M76.72] Janneth SHRESTHA [facility] CPT-4: 67519 11/18/2018 ([id number]) OFFICE/OUTPATIENT VISIT EST Diagnosis: Cellulitis of left foot[ICD10: L03.116] Diagnosis: Spontaneous ecchymoses[ICD10: R23.3] Diagnosis: Venous insufficiency (chronic) (peripheral)[ICD10: I87.2] Diagnosis: Mixed hyperlipidemia[ICD10: E78.2] Vaniamelly WEINER FLOR SHRESTHA [facility] CPT-4: 22260 11/09/2018 ([id number]) OFFICE/OUTPATIENT VISIT EST Diagnosis: Venous insufficiency (chronic) (peripheral)[ICD10: I87.2] Diagnosis: Cellulitis of left lower limb[ICD10: L03.116] Diagnosis: Pain in right foot[ICD10: M79.671] Vania RAY Web[employer]asterLisandra CLARK [facility] CPT-4: 79378 10/13/2018 ([id number]) OFFICE/OUTPATIENT VISIT EST Diagnosis: Low back pain[ICD10: M54.5] Vania Dsouza. Brandon [facility] CPT-4: 08650 09/23/2018 ([id number]) OFFICE/OUTPATIENT VISIT EST Diagnosis: Gastro-esophageal reflux disease without esophagitis[ICD10: K21.9] Diagnosis: Dysphagia, pharyngoesophageal phase[ICD10: R13.14] Janneth MERINOLINE WebymasterLisandra [employer] [facility] CPT-4: 33075 09/06/2018 ([id number]) OFFICE/OUTPATIENT VISIT EST Diagnosis: Tinea corporis[ICD10: B35.4] Vania ROGERSYadwire [employer] [facility] CPT-4: 36308 07/15/2018 ([id number]) OFFICE/OUTPATIENT VISIT EST Diagnosis: Cellulitis of left toe[ICD10: L03.032] Diagnosis: Mixed hyperlipidemia[ICD10: E78.2] Mandy MERINOGINNY RAY [employer] CPT-4: 68486 2018 OFFICE/OUTPATIENT VISIT EST Diagnosis: Cellulitis of left toe[ICD10: L03.032] Diagnosis: Unspecified disturbances of skin sensation[ICD10: R20.9] Mandy MERINOLINE WebymasterLisandra [employer] [facility] CPT-4: 29011 04/14/2018 ([id number]) OFFICE/OUTPATIENT VISIT EST Diagnosis: Cellulitis of left toe[ICD10: L03.032] Diagnosis: Insomnia, unspecified[ICD10: G47.00] Vania BUCHANAN WebymasterLisandra [employer] CPT-4: 70895 03/18/2018 ([id number]) OFFICE/OUTPATIENT VISIT EST Diagnosis: Other postprocedural complications and disorders of the circulatory system, not elsewhere classified[ICD10: I97.89] Diagnosis: Rash and other nonspecific skin eruption[ICD10: R21] Diagnosis: Pain in right leg[ICD10: M79.604] Vania SHRESTHA DO [employer] CPT-4: 19527 01/26/2018 ([id number]) OFFICE/OUTPATIENT VISIT EST Diagnosis: Other postprocedural complications and disorders of the circulatory system, not elsewhere classified[ICD10: I97.89] Diagnosis: Cellulitis of right lower limb[ICD10: L03.115] Vania SHRESTHA DO [employer] CPT-4: 91379 12/22/2017 ([id number]) OFFICE/OUTPATIENT VISIT EST Diagnosis: Acute sinusitis, unspecified[ICD10: J01.90] Diagnosis: Unspecified disturbances of skin sensation[ICD10: R20.9] Vania SHRESTHA [employer] CPT-4: 56977 10/06/2017 ([id number]) OFFICE/OUTPATIENT VISIT EST Diagnosis: Primary insomnia[ICD10: F51.01] Diagnosis: Pain in left shoulder[ICD10: M25.512] Diagnosis: Poisoning by other parasympatholytics [anticholinergics and antimuscarinics] and spasmolytics, accidental (unintentional), sequela[ICD10: T44.3X1S] Janneth SHRESTHA [employer] CPT-4: 04008 02/03/2017 OFFICE/OUTPATIENT VISIT EST Diagnosis: Insomnia, unspecified[ICD10: G47.00] Diagnosis: Constipation, unspecified[ICD10: K59.00] Diagnosis: Spontaneous ecchymoses[ICD10: R23.3] Diagnosis: Pain in left foot[ICD10: M79.672] Vania SHRESTHA [employer] CPT-4: 69726 11/25/2016 OFFICE/OUTPATIENT VISIT EST Diagnosis: Insomnia, unspecified[ICD10: G47.00] Diagnosis: Constipation, unspecified[ICD10: K59.00] Diagnosis: Spontaneous ecchymoses[ICD10: R23.3] Diagnosis: Other specified local infections of the skin and subcutaneous tissue[ICD10: L08.89] Vania SHRESTHA [facility] CPT-4: 99 213 11/14/2016 ([id number]) OFFICE/OUTPATIENT VISIT EST Diagnosis: Acute upper respiratory infection, unspecified[ICD10: J06.9] Ester SHRESTHA DO [facility] CPT-4: 82314 04/02/2016 ([id number]) OFFICE/OUTPATIENT VISIT EST Diagnosis: Acute upper respiratory infection, unspecified[ICD10: J06.9] Ester SHRESTHA [facility] CPT-4: 04940 11/29/2015 ([id number]) OFFICE/OUTPATIENT VISIT EST Diagnosis: Pain in thoracic spine[ICD10: M54.6] Diagnosis: Paresthesia of skin[ICD10: R20.2] Diagnosis: Dysphagia, unspecified[ICD10: R13.10] [facility] CPT-4: 75253 06/27/2015 ([id number]) OFFICE/OUTPATIENT VISIT NEW Diagnosis: Pain in left leg[ICD10: M79.605] Diagnosis: Male erectile dysfunction, unspecified[ICD10: N52.9] Diagnosis: Dysphagia, unspecified[ICD10: R13.10] Ester SHRESTHA [facility] CPT-4: 75995 05/24/2015 Plan of Care Planned Activity Notes [...] Patient Education: metoprolol succinate- [employer] Co upon [id number] https://www.DNage.Getable/samplemd/resources/getResource/61/39779iz7-w9u2-123f-n2 Completed 05/02/2019 Visit Diagnosis Plan: DM w/o [...] M79.661 04/25/2019 Appointment[facility] [facility] [facility] 04/25/2019 Patient Education: Metformin Patient Savings Message Alert Completed 04/25/2019 Patient Education: prednisone- [employer] Coupon [id number] https://www.DNage.Getable/samplemd/resources/getResource/61/4cn11ba8-d7ac-0i41-bt Completed 04/25/2019 Visit Diagnosis Plan: DM w/o [...] : T85.818A 04/11/2019 Appointment: Janneth Shrestha WPtel: [address] [place], [place] [address] 04/11/2019 Patient Education: metoprolol succinate- [employer] Co upon [id number] https://www.ZAPITANO/DNage/resources/getResource/61/xs998228-49iq-6k36-89 Completed 04/11/2019 Patient Education: Metformin Patient Savings Message Alert Completed 04/11/2019 Patient Education: cephalexin- [employer] Coupon [id number] https://www.ZAPITANO/DNage/resources/Zila NetworksResource/61/7lpk0360-8u8j-2918-gy Completed 04/11/2019 Visit Diagnosis Plan: Folliculitis Discussion: Bactrim and topical bactroban ICD-9 : 704.8 ICD-10 : L73.9 03/01/2019 Visit Diagnosis Plan: Sinus tachycardia Discussion: St art low dose metoprolol ER 25mg daily Monitor pulse Sees Cardiology next month ICD-9 : 427.89 ICD-10 : R00.0 03/01/2019 Appointment: Janneth Shrestha WPtel: [address] [place] [address] [place] FOLLOW UP 03/01/2019 Patient Education: mupirocin- [employer] Coupon [id number] https://www.ZAPITANO/DNage/resources/getResource/61/oq569pd5-97bz-589e-ih Completed 03/01/2019 Appointment: Janneth Shrestha WPtel: [address] [place] [address] [place] CANCELED 12/20/2018 Visit Diagnosis Plan: Tendinitis [...] ICD-10 : L03.116 11/18/2018 Appointment: Vania García [address] [place], [place] [address] [place] CANCELED 11/18/2018 Appointment: [facility]rest[facility] [facility] [facility] 11/18/2018 Patient Education: doxycycline monohydrate- [employer] Coupon [id number] https://www.ZAPITANO/samplezappit/resources/getResource/61/kzz66243-k0n7-19r3-4w Completed 11/18/2018 Patient Education: prednisone- [employer] Coupon [id number] 321 https://www.ZAPITANO/samplezappit/resources/getResource/61/73gb3c7f-5mt9-8362-ne Completed 11/18/2018 Care Plan: Referral Order SNOMED-CT : 30 [id number] Pending 11/18/2018 Visit Diagnosis Plan: Venous insufficiency [...] evaluated in an ED whether it be [place] or wherever he's traveling. discussed the risk of bone involvement and the importance of having it evaluated if worsens. follow up in office when he returns though if no worsening symptoms. ICD-9 : 682.7 ICD-10 : L03.116 11/09/2018 [facility]ment: [facility] [facility] 11/09/2018 Patient Education: clindamycin HCl- [employer] Coupon [id number] https://www.DNage.com/samplemd/resources/getResource/61/00wn74c7-qg84-9zb8-9i Completed 11/09/2018 Appointment: [facility]ann[facility]restha [facility] [facility] CANC[facility]ED 10/19/2018 Visit Diagnosis Plan: Pain [...] : L03.116 10/13/2018 Appointment: [facility] Patient cant pay copay till when [...] : M54.5 09/23/2018 App[facility]ment: [facility] [facility] 09/23/2018 Patient Education: Medrol ([place])- [employer] Coupon [phone] https://www.ZAPITANO/DNage/resources/getResource/61/tbkj851e-5087-62z2-96 Completed 09/23/2018 Visit Diagnosis Plan: Dysphagia, pharyngoesophageal ph ase Discussion: Referral for EGD ICD-9 : 787.24 ICD-10 : R13.14 09/06/2018 Visit Diagnosis Plan: Gastro-esophageal reflux disease without esophagitis Discussion: Start omeprazole ICD-9 : 530.81 ICD-10 : K21.9 09/06/2018 Appointment: [facility]rest[facility] [facility] [facility] ACUTE ILLNESS 09/06/2018 Patient Education: omeprazole- [employer] Coupon [id number] https://www.ZAPITANO/DNage/resources/getResource/61/359bz107-46q2-126y-35 Completed 09/06/2018 Care Plan: Referral Order SNOMED-CT : 30 [id number] Pending 09/06/2018 Visit Diagnosis Plan: Tinea corporis Discussion: nysta tin to be used bid until rash gone and then an additional 2 days. diflucan every 3 days for 3 doses. keep area clean and dry with no moisturizers. call office if no improvement in 2 weeks or if worsening. ICD-9 : 110.5 ICD-10 : B35.4 07/15/2018 App[facility]ment: [facility] [facility] 07/15/2018 Patient Education: nystatin- [employer] Coupon [id number] https://www.ZAPITANO/DNage/resources/getResource/61/63unq341-l7cp-00to-8s Completed 07/15/2018 Patient Education: Plavix- [employer] Coupon [id number] https://www.ZAPITANO/samplemd/resources/getResource/61/49of8i45-c38i-22rw-70 fa-a698c4701383.pdf Completed 07/15/2018 Patient Education: cyclobenzaprine- [employer] Coupon [id number] https://www.ZAPITANO/samplemd/resources/getResource/61/52574m8t-4m94-57h5-zk Completed 07/15/2018 Visit Diagnosis Plan: Cellulitis of [...] ICD-10 : L03.032 2018 Appointment: Mandy Hollins [address] [place] [address] FOLLOW UP 2018 Patient Education: mupirocin- [employer] Coupon [id number] https://www.DNage.Getable/samplemd/resources/getResource/61/z8tf25o5-7813-9353-7l Completed 2018 Visit Diagnosis Plan: Cellulitis of [...] ICD-10 : R20.9 04/14/2018 Appointment: Mandy Hollins [address] [place] [address] FOLLOW UP 04/14/2018 Visit Diagnosis Plan: Cellulitis [...] ICD-10 : G47.00 03/18/2018 Appointment: Vania García [address] [place], [place] [id number] ACUTE ILLNESS 03/18/2018 Patient Education: cyclobenzaprine- [employer] Coupon [id number] https://www.DNage.com/samplemd/resources/getResource/61/4616o976-3cu1-143d-x6 Completed 03/18/2018 Visit Diagnosis Plan: Rash and other nonspecific skin eruption Discussion: triamcinolone ordered to be used as directed. ICD-9 : 782.1 ICD-10 : R21 01/26/2018 Visit Diagnosis Plan: Other postprocedur al complications and disorders of the circulatory system, not elsewhere classified Discussion: discussed with dr. shrestha and patient was instructed to contact the [facility] due to uncontrolled pain, continued erythema, patient needs to be re-evaluated by the surgeon. 60 mg toradol given to patient. patient verbalized understanding and voiced he will contact them today for an appointment. ICD-9 : 997.1 ICD-10 : I97.89 01/26/2018 [facility] [facility] 01/26/2018 Appointment: Janneth Shrestha WPtel: [phone] [facility] NO SHOW 01/06/2018 Visit Diagnosis Plan: [...] : I97.89 12/22/2017 Appointment: [facility] [facility] 12/22/2017 Visit Diagnosis Plan: [...] ICD-10 : J01.90 10/06/2017 Appointment: Vania García [address] [place], [place] [id number] ACUTE ILLNESS 10/06/2017 Patient Education: Patient Medication Summary Completed 10/06/2017 Appointment: Vania García [address] [place], [place] [id number] ER Follow UP 08/17/2017 Appointment: Vnaia García [address] [place], [place] [id number] [place] CANCELED 07/03/2017 Appointment: Janneth Shrestha WPtel: [address] [facility] [place] canceled at 8:05 this morning. 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 ICD-9 : 729.5 ICD-10 : M79.672 11/25/2016 Visit Diagnosis Plan: Insomnia, unspecified Recommenda tions: resolved with lunesta. continue taking as prescribed. ICD-9 : 780.52 ICD-10 : G47.00 11/25/2016 Appointment: Vania García [address] [place], [place] [id number] FOLLOW UP 11/25/2016 Patient Education: Patient Medication [...] ICD-10 : K59.00 11/14/2016 Appointment: Vania García [address] [place] [address] ACUTE ILLNESS 11/14/2016 Patient Education: Patient Medication Summary Completed 11/14/2016 Visit Diagnosis Plan: Acute upper respiratory infectio n, unspecified Discussion: Rxs as above Continue OTC and supportive meds Encouraged smoking cessation Follow up PRN ICD-9 : 465.9 ICD-10 : J06.9 04/02/2016 Appointment: Ester Grande [address] [place] [address] ACUTE ILLNESS 04/02/2016 Patient Education: Patient Medication Summary Completed 04/02/2016 Visit Plan: Rxs as above Supportive care reviewed Follow up PRN 11/29/2015 Appointment: Ester Grande [address] 11/27 confirmed~sl ACUTE ILLNESS 11/29/2015 Patient [...] for pain 06/27/2015 [facility] [facility] 06/25 lm ~sl 06/26 phone not on~sl FOLLOW UP 06/27/2015 Patient Education: Patient Medication Summary Completed 06/27/2015 Care Plan: X-RAY EXAM RIBS UNI 2 VIEWS L OINC : 22096-1 Pending 06/27/2015 Referral: Héctor Woodard WPtel: [address] [facility] 05/29 Scheduled with sena ~sl Appointment Re quested 06/26/2015 Referral: Cameron Khanna WPtel: [address] [facility] [place] Referral Initiated 06/11/2015 Referral: Marco Antonio Green WPtel: [address] [id number] 05/30/15 Needs to be there at pre op time per ~sl Initiated 06/04/2015 Visit Plan: Will get all necessary refer rals set up - CTS, Uro and G/S Swallow study and routine labs ordered Will further investigate left leg pain with EMG if not cardio related 05/24/2015 Appointment: Ester Grande [address] [facility] NEW PATIENT 05/24/2015 Patient Education: Patient Medication Summary Completed 05/24/2015 Care Plan: Referral Order SNOMED-CT : 30 [id number] Pending 05/24/2015 Care Plan: Referral Order SNOMED-CT : 30 0750986 Pending 05/24/2015 Care Plan: Referral Order SNOMED-CT : 30 8487135 Pending 05/24/2015 Referral: Sudheer Gann WPtel: [address] [facility] [place] Referral Appointment Requested Referral: Alfonzo Andujar WPtel: [address] [facility] [place] Referral Initiated Referral: [facility] [address] [id number] [place] Referral Completed Referral: Cameron Khanna WPtel: [address] [facility] [place] Referral Appointment Requested Referral: Brianna Rose WPtel: [address] [place] [address] [place] Referral Initiated Referral: Héctor Woodard WPtel: [address] 05/24/15 [facility] office suggested he see another card. ~sl Initiated Referral: Alfonzo Andujar WPtel: [address] [place] [address] [place] Referral Appointment Requested Referral: Marco Antonio Green WPtel: [address] [place] [address] [place] Referral Appointment Requested Instructions Comment . [...]
--- OUTSIDE RECORDS SUMMARY | 2019-08-06 10:26 | XMS REPORT | CCD ---
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 Role Phone Janneth Shrestha D.O., PP Unavailable CCM Unavailable Summary Purpose Interface Exchange Insurance Providers Payer name Policy type / Coverage type Covered alliance party ID Effective Begin Date Effective End Date Blue Cross Blue Shield Blue Cross/Blue Shield [id number] Unknown Family History Family History data not found Social History Social History Element Codes Description Effective Dates Marital status Unknown 05/24/2015 Number of children Unknown 2 05/24/2015 Employment Unknown Currently employed 05/24/[address]: 34839681 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 [...] 50 mg tablet,extended release 24 hr RxNorm: 279648 1 Tablet(s) Oral QD 08/01/2019 10/30/2019 Active Xarelto 20 mg tablet RxNorm: 6907520 1 Tablet(s) Oral QD 04/25/2019 No Stop Date Active Plavix 75 mg tablet RxNorm: 108645 TAKE ONE TABLET BY MOUTH DAILY 0 04/25/2019 04/26/2019 Inactive amiodarone 200 mg tablet RxNorm: 854336 1 Tablet(s) Oral QD No Stop Date Active metformin ER 500 mg 24 hr tablet,extended release RxNorm: 18 82000 1 Tablet(s) Oral two times a day 04/25/2019 07/24/2019 Active Plavix 75 mg tablet RxNorm: 984412 TAKE ONE TABLET BY MOUTH DAILY 0 04/25/2019 04/24/2019 Inactive prednisone 20 mg tablet RxNorm: 830221 1 Tablet(s) Oral two jn es a day 04/25/2019 05/01/2019 Inactive aspirin 81 mg tablet,delayed release RxNorm: 040097 1 Tablet(s) Oral QD 04/11/2019 No Stop Date Active pantoprazole 40 mg tablet,delayed release RxNorm: 464140 1 Tabl et(s) Oral QAM 04/11/2019 No Stop Date Active Vitamin C 1,000 mg tablet RxNorm: 835153 1 Tablet(s) Oral QD 2019 No Stop Date Active Xarelto 15 mg tablet RxNorm: 1105464 1 Tablet(s) Oral QD 04/11/2019 0 04/24/2019 Inactive metformin ER 500 mg 24 hr tablet,extended release RxNorm: 18 33367 1 Tablet(s) Oral QD 04/11/2019 04/24/2019 Inactive cephalexin 500 mg capsule RxNorm: 673651 1 Capsule(s) Oral thre e times a day 04/11/2019 04/18/2019 Inactive metoprolol succinate ER 50 mg tablet,extended release 24 hr RxNorm: 793981 1 Tablet(s) Oral QD replaces 25mg dose 04/11/2019 05/01/2019 Inactive cyclobenzaprine 10 mg tablet RxNorm: 631399 TAKE ONE TA BLET BY MOUTH EVERY NIGHT AT BEDTIME NEEDED 03/11/2019 No Stop Date Active mupirocin 2 % topical ointment RxNorm: 700296 Applicati on Topical two times a day 03/01/2019 04/10/2019 Inactive metoprolol succinate ER 25 mg tablet,extended release 24 hr RxNorm: 058410 1 Tablet(s) Oral QD 03/01/2019 04/24/2019 Inactive Bactrim DS 800 mg-160 mg tablet RxNorm: 204798 1 Tablet(s) Oral two times a day 03/01/2019 03/11/2019 Inactive omeprazole 40 mg capsule,delayed release RxNorm: 920727 TAKE ONE CAPSULE BY MOUTH EVERY NIGHT AT BEDTIME FOR REFLUX 01/10/2019 No Stop Date Active cyclobenzaprine 10 mg tablet RxNorm: 353634 TAKE ONE TA BLET BY MOUTH EVERY NIGHT AT BEDTIME NEEDED 01/10/2019 03/10/2019 Inactive Plavix 75 mg tablet RxNorm: 045080 TAKE ONE TABLET BY MOUTH DAILY 1 03/12/2018 04/24/2019 Inactive tramadol 50 mg tablet RxNorm: 799502 1 Tablet(s) Oral f our times a day as needed 01/03/2019 01/03/2019 Inactive doxycycline monohydrate 100 mg capsule RxNorm: 2233946 1 Capsule(s) Oral two times a day 11/22/2018 12/13/2018 Inactive prednisone 20 mg tablet RxNorm: 764398 1 Tablet(s) Oral two jn es a day 11/22/2018 11/29/2018 Inactive Levaquin 750 mg tablet RxNorm: 500784 Tablet(s) Oral 11/18/201802/28 Inactive prednisone 20 mg tablet RxNorm: 200839 1 Tablet(s) Oral two jn es a day 11/18/2018 11/21/2018 Inactive tramadol 50 mg tablet RxNorm: 422653 Tablet(s) Oral 11/18/20182018 Inactive doxycycline monohydrate 100 mg capsule RxNorm: 6333080 1 Capsule(s) Oral two times a day 11/18/2018 11/21/2018 Inactive Plavix 75 mg tablet RxNorm: 195606 TAKE ONE TABLET BY MOUTH DAILY 0 11/10/2018 01/08/2019 Inactive clindamycin HCl 300 mg capsule RxNorm: 296148 1 Capsule (s) Oral three times a day 11/09/2018 11/19/2018 Inactive Keflex 500 mg capsule RxNorm: 610308 1 Capsule(s) PO BID 10/13/2018 0 10/22/2018 Inactive Medrol (Brenden) 4 mg tablets in a dose pack RxNorm: 347940 Tablet(s) take as directed PO 09/23/2018 10/12/2018 Inactive omeprazole 40 mg capsule,delayed release RxNorm: 382435 1 Capsule(s) PO QHS for reflux 09/06/2018 11/04/2018 Inactive cyclobenzaprine 10 mg tablet RxNorm: 963156 1 Tablet(s) PO QHS as needed 07/15/2018 10/12/2018 Inactive Diflucan 150 mg tablet RxNorm: 427562 1 Tablet(s) PO Q72H 07/15/2018 09/05/2018 Inactive nystatin 100,000 unit/gram topical cream RxNorm: 859810 1 Gram( s) TOP BID 07/15/2018 09/05/2018 Inactive Plavix 75 mg tablet RxNorm: 364241 1 Tablet(s) PO QD 07/15/201810/12 Inactive cyclobenzaprine 10 mg tablet RxNorm: 448116 1 Tablet(s) PO QHS as needed 06/10/2018 06/09/2018 Inactive cyclobenzaprine 10 mg tablet RxNorm: 851707 TAKE ONE TA BLET BY MOUTH EVERY NIGHT AT BEDTIME NEEDED 05/10/2018 06/10/2018 Inactive mupirocin 2 % topical ointment RxNorm: 016320 1 Application TOP BID 2018 05/25/2018 Inactive 22 gram cyclobenzaprine 10 mg tablet RxNorm: 905018 1 Tablet(s) PO QHS as needed 04/14/2018 06/09/2018 Inactive doxycycline hyclate 100 mg tablet RxNorm: 4199601 1 Tablet(s) PO BI D 04/14/2018 04/23/2018 Inactive cyclobenzaprine 10 mg tablet RxNorm: 593245 1 Tablet(s) PO QHS as needed 04/07/2018 04/13/2018 Inactive Bactrim DS 800 mg-160 mg tablet RxNorm: 269612 1 Tablet(s) PO BID 0 03/18/2018 03/27/2018 Inactive cyclobenzaprine 10 mg tablet RxNorm: 179342 1 Tablet(s) PO QHS as needed 03/18/2018 04/06/2018 Inactive triamcinolone acetonide 0.1 % topical cream RxNorm: 1094144 APPLY TO AFFECTED AREA(S) TWO TIMES A DAY 02/03/2018 02/12/2018 Inactive triamcinolone acetonide 0.1 % topical cream RxNorm: 5986217 1 Application TOP BID 01/26/2018 02/02/2018 Inactive Medrol (Brenden) 4 mg tablets in a dose pack RxNorm: 255673 TAKE BY MOUTH INSTRUCTED - PER PACKAGE INSTRUCTIONS 12/11/2017 12/16/2017 Inactive Medrol (Brenden) 4 mg tablets in a dose pack RxNorm: 306420 Tablet(s) P O 10/06/2017 12/10/2017 Inactive Lunesta 3 mg tablet RxNorm: 680277 1 Tablet(s) PO QHS 11/25/201608/2016 Inactive Lunesta 3 mg tablet RxNorm: 971265 1 Tablet(s) PO QHS 11/14/201610/2016 Inactive Bactrim DS 800 mg-160 mg tablet RxNorm: 308310 1 Tablet(s) PO BID 0 11/14/2016 11/23/2016 Inactive Epi E-Z Pen 0.3 mg/0.3 mL injection, auto-injector RxNorm: 1 180498 Milliliter(s) IM Use as Directed 06/25/2016 09/05/2018 Inactive amoxicillin 875 mg tablet RxNorm: 872403 1 Tablet(s) PO BID 017 04/11/2016 Inactive prednisone 20 mg tablet RxNorm: 262625 1 Tablet(s) PO BID 04/02/2016 04/06/2016 Inactive azithromycin 250 mg tablet RxNorm: 665468 2 Tablet(s) P O on day one then 1 tab on days 2-5 11/29/2015 11/28/2015 Inactive Medrol (Brenden) 4 mg tablets in a dose pack RxNorm: 599156 Take as directed 11/29/2015 11/13/2016 Inactive meloxicam 15 mg tablet RxNorm: 825693 1 Tablet(s) PO QD 07/02/2015 Inactive Chantix Starting Month Box 0.5 mg (11)-1 mg (42) table ts in dose pack RxNorm: 301831 Tablet(s) PO As Directed 06/20/2015 07/10/2015 Inactive omeprazole 40 mg capsule,delayed release RxNorm: 357762 1 Capsu le(s) PO QD 05/31/2015 11/13/2016 Inactive omeprazole 40 mg capsule,delayed release RxNorm: 204203 1 Capsu le(s) PO QD 05/31/2015 05/30/2015 Inactive Lactobacillus acidophilus-Bifidobacterium longum oral RxNorm: oral No Start Date Active Multivitamin And Mineral oral RxNorm: oral No Start Date Active Wellbutrin SR 150 mg tablet,sustained-release RxNorm: 605407 1 Tablet(s) PO BID No Start Date 11/13/2016 Inactive gabapentin 100 mg capsule RxNorm: 169236 1 Capsule(s) PO TID No Sta rt Date 03/17/2018 Inactive Chantix Starting Month Box 0.5 mg (11)-1 mg (42) table ts in dose pack RxNorm: 217729 Tablet(s) PO As Directed No Start Date 06/19/2015 Inactive Eliquis 5 mg tablet RxNorm: 5947812 1 Tablet(s) PO BID No Start Date 03/17/2018 Inactive aspirin 325 mg tablet RxNorm: 055314 1 Tablet(s) PO QD No Start Date 11/13/2016 Inactive clindamycin HCl 300 mg capsule RxNorm: 807016 2 Capsule(s) PO Q8H N o Start Date 03/17/2018 Inactive Fish Oil 1,000 mg (120 mg-180 mg) capsule RxNorm: 1 Caps ule(s) PO QD No Start Date 09/05/2018 Inactive aspirin 81 mg tablet RxNorm: 121136 1 Tablet(s) PO QD No Start Date 1 03/28/2017 Inactive Fish Oil 1,000 mg capsule RxNorm: 1 Capsule(s) PO QD No Start Date 11/13/2016 Inactive Baby Aspirin 81 mg chewable tablet RxNorm: 073940 1 Tablet(s) P O BID No Start Date 02/02/2017 Inactive Xarelto 10 mg tablet RxNorm: 2311722 1 Tablet(s) PO QD No Start Date 01/25/2018 Inactive tramadol 50 mg tablet RxNorm: 769098 1-2 Tablet(s) PO Q6H No Start Date 03/17/2018 Inactive meloxicam 15 mg tablet RxNorm: 607432 1 Tablet(s) PO QD No Start Da te 07/01/2015 Inactive Epi E-Z Pen 0.3 mg/0.3 mL injection, auto-injector RxNorm: 1 413800 Milliliter(s) IM Use as Directed No Start Date 06/24/2016 Inactive Plavix 75 mg tablet RxNorm: 639426 1 Tablet(s) PO QD No Start Date Inactive Medication Administered No Medication Administered data Immunizations No Immunization data Results Observation Observation Code Item Item Code Result Date S vice Location COMPREHENSIVE METABOLIC 26117 AST 25 U/L 2018 Unknown COMPREHENSIVE METABOLIC 47708 ALT 28 U/L 2018 Unknown COMPREHENSIVE METABOLIC 61506 BUN 13 mg/dL 2018 Unknown COMPREHENSIVE METABOLIC 81591 ALBUMIN 4.2 g/dL 2018 Unknown COMPREHENSIVE METABOLIC 99988 CHLORIDE 104 mmol/L 11/09 Unknown COMPREHENSIVE METABOLIC 73115 Bili Total 0.5 mg/dL 11/09 Unknown COMPREHENSIVE METABOLIC 99779 ALK PHOS 72 U/L 2018 Unknown COMPREHENSIVE METABOLIC 29651 SODIUM 139 mmol/L 11/09 Unknown COMPREHENSIVE METABOLIC 35568 CREATININE 0.98 mg/dL 10/18 Unknown COMPREHENSIVE METABOLIC 33430 CALCIUM 9.1 mg/dL 2018 Unknown COMPREHENSIVE METABOLIC 53965 POTASSIUM 3.7 mmol/L 11/09 Unknown COMPREHENSIVE METABOLIC 32121 Total Protein 7.2 g/dL Unknown COMPREHENSIVE METABOLIC 31087 Glucose 137 mg/dL 2018 Unknown COMPREHENSIVE METABOLIC 32218 Bicarbonate 24 mmol/L 10/18 Unknown COMPREHENSIVE METABOLIC 00718 AGAP 11 mmol/L 2018 Unknown COMPLETE BLOOD COUNT [id number] WBC 4.6 10e9/L 11/10/19 19 Unknown COMPLETE BLOOD COUNT [id number] RBC 4.88 10e12/L 2018 Unknown COMPLETE BLOOD COUNT 0270600 HEMOGLOBIN 14.7 g/dL 11/10/19 19 Unknown COMPLETE BLOOD COUNT [id number] HEMATOCRIT 43.7 % 11/10/19 19 Unknown COMPLETE BLOOD COUNT [id number] MCV 89.5 fL 9 Unknown COMPLETE BLOOD COUNT [id number] MCH 30.1 pg 9 Unknown COMPLETE BLOOD COUNT 7610527 MCHC 33.6 g/dL 9 Unknown COMPLETE BLOOD COUNT [id number] PLATELET COUNT 179 10e9/L Unknown COMPLETE BLOOD COUNT [id number] Mean Plt Volume 11.6 fL Unknown COMPLETE BLOOD COUNT [id number] Neut Auto 55.5 % 9 Unknown COMPLETE BLOOD COUNT [id number] Lymph Auto 28.7 % 11/10/19 19 Unknown COMPLETE BLOOD COUNT [id number] Rock Auto 7.9 % 9 Unknown COMPLETE BLOOD COUNT [id number] RDW 13.2 % 9 Unknown COMPLETE BLOOD COUNT 1905034 Eos Auto 7.7 % 9 Unknown COMPLETE BLOOD COUNT [id number] Baso Auto 0.2 % 9 Unknown COMPLETE BLOOD COUNT [id number] Neutrophil Abs 2.55 10e9/L Unknown COMPLETE BLOOD COUNT [id number] Lymphocyte Abs 1.32 10e9/L Unknown COMPLETE BLOOD COUNT [id number] Monocyte Abs 0.36 10e9/L 10/18 Unknown COMPLETE BLOOD COUNT [id number] Eosinophil Abs 0.35 10e9/L Unknown COMPLETE BLOOD COUNT [id number] RDW-SD 42.2 fL 9 Unknown COMPLETE BLOOD COUNT [id number] Basophil Abs 0.01 10e9/L 10/18 Unknown LIPID GROUP 82669 Cholesterol 205 mg/dL 11/09/2018 Unkno wn LIPID GROUP 28590 Triglyceride 268 mg/dL 11/09/2018 Unkn own LIPID GROUP 49118 HDL CHOLESTEROL 35 mg/dL 11/09/2018 U nknown LIPID GROUP 05450 Chol/HDL Ratio 5.86 ratio 11/09/2018 U nknown LIPID GROUP 76789 NON-HDL Chol 170 mg/dL 11/09/2018 Unkn own LIP[facility] GROUP 18249 LDL Cholesterol 116 mg/dL 11/09/2018 U nknown PT 8472791 PT 12.7 Seconds 11/09/2018 Unknow n PT 6294475 INR 0.9 11/09/2018 Unknown GFR CALC 3535901 GFR Non Afr Amr >60 mL/min 11/09/2018 Un known GFR CALC 3910853 GFR Afr Amr >60 mL/min 11/09/2018 Unknow n ACT PARTIAL THRMBOPLASTIN TIME 51418 PTT 34.0 Seco nds 11/09/2018 Unknown LIPID GROUP 93578 Cholesterol 186 mg/dL 2018 Unkno wn LIP[facility] GROUP 40033 Triglyceride 229 mg/dL 2018 Unkn own LIPID GROUP 06892 HDL CHOLESTEROL 36 mg/dL 2018 U nknown L[facility] 24963 Chol/HDL Ratio 5.17 ratio 2018 U nknown LIP[facility] GROUP 75014 NON-HDL Chol 150 mg/dL 2018 Unkn own L[facility] 52274 LDL Cholesterol 104 mg/dL 2018 U nknown GFR CALC 7954302 GFR Non Afr Amr >60 mL/min 2018 Un known GFR CALC 3724831 GFR Afr Amr >60 mL/min 2018 Unknow n COMPREHENSIVE METABOLIC 06052 AST 23 U/L 2018 Unknown COMPREHENSIVE METABOLIC 40654 ALT 22 U/L 2018 Unknown COMPREHENSIVE METABOLIC 22143 BUN 15 mg/dL 2018 Unknown COMPREHENSIVE METABOLIC 59386 ALBUMIN 4.1 g/dL 2018 Unknown COMPREHENSIVE METABOLIC 48470 CHLORIDE 106 mmol/L 05/06 Unknown COMPREHENSIVE METABOLIC 89272 Bili Total 0.6 mg/dL 05/06 Unknown COMPREHENSIVE METABOLIC 02370 ALK PHOS 61 U/L 2018 Unknown COMPREHENSIVE METABOLIC 86076 SODIUM 141 mmol/L 05/06 Unknown COMPREHENSIVE METABOLIC 36031 CREATININE 0.91 mg/dL 04/17 Unknown COMPREHENSIVE METABOLIC 85947 CALCIUM 9.2 mg/dL 2018 Unknown COMPREHENSIVE METABOLIC 99508 POTASSIUM 3.8 mmol/L 05/06 Unknown COMPREHENSIVE METABOLIC 38114 Total Protein 7.0 g/dL Unknown COMPREHENSIVE METABOLIC 11794 Glucose 97 mg/dL 2018 Unknown COMPREHENSIVE METABOLIC 67530 Bicarbonate 28 mmol/L 04/17 Unknown COMPREHENSIVE METABOLIC 02125 AGAP 7 mmol/L 2018 Unknown THYROID STIMULATING HORMONE 19074 TSH 2.094 uIU/mL 2018 Unknown COMPLETE BLOOD COUNT 1815101 WBC 5.5 10e9/L 05/07/19 19 Unknown COMPLETE BLOOD COUNT [id number] RBC 4.61 10e12/L 2018 Unknown COMPLETE BLOOD COUNT 7692292 HEMOGLOBIN 13.6 g/dL 05/07/19 19 Unknown COMPLETE BLOOD COUNT 8988000 HEMATOCRIT 40.0 % 05/07/19 19 Unknown COMPLETE BLOOD COUNT 6559435 MCV 86.8 fL 9 Unknown COMPLETE BLOOD COUNT 1677594 MCH 29.5 pg 9 Unknown COMPLETE BLOOD COUNT 1196090 MCHC 34.0 g/dL 9 Unknown COMPLETE BLOOD COUNT 8634363 PLATELET COUNT 197 10e9/L Unknown COMPLETE BLOOD COUNT 5161366 Mean Plt Volume 10.8 fL Unknown COMPLETE BLOOD COUNT 9313123 Neut Auto 49.6 % 9 Unknown COMPLETE BLOOD COUNT 5102950 Lymph Auto 36.8 % 05/07/19 19 Unknown COMPLETE BLOOD COUNT 0963250 Rock Auto 8.1 % 9 Unknown COMPLETE BLOOD COUNT 9197396 RDW 15.3 % 9 Unknown COMPLETE BLOOD COUNT 4050335 Eos Auto 5.3 % 9 Unknown COMPLETE BLOOD COUNT 5855272 Baso Auto 0.2 % 9 Unknown COMPLETE BLOOD COUNT 7596625 Neutrophil Abs 2.73 10e9/L Unknown COMPLETE BLOOD COUNT [id number] Lymphocyte Abs 2.02 10e9/L Unknown COMPLETE BLOOD COUNT [id number] Monocyte Abs 0.45 10e9/L 04/17 Unknown COMPLETE BLOOD COUNT [id number] Eosinophil Abs 0.29 10e9/L Unknown COMPLETE BLOOD COUNT 2646025 RDW-SD 47.9 fL 9 Unknown COMPLETE BLOOD COUNT [id number] Basophil Abs 0.01 10e9/L 04/17 Unknown Procedures Procedure Codes Date CEFTRIAXONE SODIUM INJECTION CPT-4: J0696 11/09/2018 THER/PROPH/DIAG INJ SC/IM CPT-4: 04502 11/09/2018 ROUTINE VENIPUNCTURE CPT-4: 09037 11/09/2018 COMPREHEN METABOLIC PANEL CPT-4: 78234 11/09/2018 COMPLETE CBC W/AUTO DIFF WBC CPT-4: 94163 11/09/2018 LIPID PANEL CPT-4: 33629 11/09/2018 PROTHROMBIN TIME CPT-4: 01338 11/09/2018 THROMBOPLASTIN TIME PARTIAL CPT-4: 50877 11/09/2018 THER/PROPH/DIAG INJ SC/IM CPT-4: 37807 09/23/2018 KETOROLAC TROMETHAMINE INJ CPT-4: J1885 09/23/2018 ROUTINE VENIPUNCTURE CPT-4: 72360 2018 ASSAY THYROID STIM HORMONE CPT-4: 00656 2018 COMPREHEN METABOLIC PANEL CPT-4: 93341 2018 COMPLETE CBC W/AUTO DIFF WBC CPT-4: 44376 2018 LIPID PANEL CPT-4: 32931 2018 CEFTRIAXONE SODIUM INJECTION CPT-4: J0696 04/14/2018 THER/PROPH/DIAG INJ SC/IM CPT-4: 86170 04/14/2018 CEFTRIAXONE SODIUM INJECTION CPT-4: J0696 03/18/2018 THER/PROPH/DIAG INJ SC/IM CPT-4: 96353 03/18/2018 THER/PROPH/DIAG INJ SC/IM CPT-4: 22681 01/26/2018 KETOROLAC TROMETHAMINE INJ CPT-4: J1885 01/26/2018 CEFTRIAXONE SODIUM INJECTION CPT-4: J0696 12/22/2017 THER/PROPH/DIAG INJ SC/IM CPT-4: 09935 12/22/2017 ROUTINE VENIPUNCTURE CPT-4: 56497 11/14/2016 COMPLETE CBC W/AUTO DIFF WBC CPT-4: 46532 11/14/2016 PT/PTT CPT-4: 2333885 11/14/2016 Vital Signs Date Vital 05/02/2019 Blood [...] 1: 134/82 Code: 8480-6 BMI: 23.9 Code: 74372-7 Heart Rate 1: 100 bpm Height: 6'4" [...] 1: 138/70 Code: 8480-6 BMI: 22.6 Code: 39607-6 Heart Rate 1: 97 bpm Height: 6'4" [...] 1: 142/80 Code: 8480-6 BMI: 20.9 Code: 60775-1 Heart Rate 1: 108 bpm Height: 6'4" Respiratory Rate: 20 bpm SpO2: 97% Tempera ture: 36.6 (C) / 97.9 (F) Weight: 172 lbs 01/26/2018 Blood Pressure 1: 130/82 Code: 8480-6 Heart Rate 1: 98 bpm Respiratory Rate: 18 bpm SpO2: 99% Temperature: 35.7 (C) / 96.3 (F) We ight: 175 lbs 12/22/2017 Blood Pressure 1: 124/68 Code: 8480-6 BMI: 22.3 Code: 98970-5 Heart Rate 1: 100 bpm Height: 6'4" Respiratory Rate: 20 bpm SpO2: 98% Tempera ture: 36.7 (C) / 98.0 (F) Weight: 183 lbs 10/06/2017 Blood Pressure 1: 130/86 Code: 8480-6 BMI: 21.1 Code: 98679-6 Heart Rate 1: 92 bpm Height: 6'4" Respiratory Rate: 18 bpm SpO2: 98% Tempera ture: 36.9 (C) / 98.5 (F) Weight: 173 lbs 02/03/2017 Blood Pressure 1: 144/92 Code: 8480-6 BMI: 20.8 Code: 75118-3 Heart Rate 1: 88 bpm Height: 6'4" Respiratory Rate: 20 bpm SpO2: 97% Tempera ture: 36.7 (C) / 98.1 (F) Weight: 171 lbs 11/25/2016 Blood Pressure 1: 126/84 Code: 8480-6 Heart Rate 1: 76 bpm Respiratory Rate: 20 bpm SpO2: 96% Temperature: 36.9 (C) / 98.4 (F) We ight: 170 lbs 11/14/2016 Blood Pressure 1: 126/82 Code: 8480-6 BMI: 20.7 Code: 84805-1 Heart Rate 1: 86 bpm Height: 6'4" Respiratory Rate: 18 bpm SpO2: 96% Tempera ture: 35.8 (C) / 96.5 (F) Weight: 170 lbs 04/02/2016 Blood Pressure 1: 124/78 Code: 8480-6 Heart Rate 1: 88 bpm Respiratory Rate: 24 bpm SpO2: 97% Temperature: 36.1 (C) / 97.0 (F) We ight: 161 lbs 11/29/2015 Blood Pressure 1: 124/68 Code: 8480-6 BMI: 19.2 Code: 47974-2 Heart Rate 1: 94 bpm Height: 6'4" Respiratory Rate: 18 bpm SpO2: 97% Tempera ture: 36.1 (C) / 97.0 (F) Weight: 158 lbs 06/27/2015 Blood Pressure 1: 128/78 Code: 8480-6 BMI: 18.7 Code: 18828-1 Heart Rate 1: 72 bpm Height: 6'4" Respiratory Rate: 22 bpm SpO2: 98% Tempera ture: 35.9 (C) / 96.6 (F) Weight: 154 lbs 05/24/2015 Blood Pressure 1: 112/78 Code: 8480-6 BMI: 19.7 Code: 95448-0 Heart Rate 1: 78 bpm Height: 6'4" [...] care Encounters Encounter Performer Location Codes Date ([id number]) OFFICE/OUTPATIENT VISIT EST Diagnosis: Acute dermatitis[ICD10: L30.9] Diagnosis: DM w/o complication type II, uncontrolled[ICD10: E11.65] Diagnosis: Right leg DVT[ICD10: I82.401] Janneth SHRESTHA [employer] [facility] CPT-4: 94157 05/02/2019 ([id number]) OFFICE/OUTPATIENT VISIT EST Diagnosis: DM w/o complication type II, uncontrolled[ICD10: E11.65] Diagnosis: Allergic dermatitis[ICD10: L23.9] Diagnosis: Right leg DVT[ICD10: I82.401] Diagnosis: Paroxysmal atrial fibrillation[ICD10: I48.0] Diagnosis: Right calf pain[ICD10: M79.661] Janneth SHRESTHA [employer] [facility] CPT-4: 53484 04/25/2019 ([id number]) OFFICE/OUTPATIENT VISIT EST Diagnosis: DM w/o complication type II, uncontrolled[ICD10: E11.65] Diagnosis: 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, implant, or graft[ICD10: T85.818A] Diagnosis: Essential hypertension[ICD10: I10] Janneth Clarkguanako REGINE FLOR SHRESTHA [employer] [facility] CPT-4: 74208 04/11/2019 ([id number]) OFFICE/OUTPATIENT VISIT EST Diagnosis: Sinus tachycardia[ICD10: R00.0] Diagnosis: Folliculitis[ICD10: L73.9] Janneth HARDY [employer] [facility] CPT-4: 01347 03/01/2019 ([id number]) OFFICE/OUTPATIENT VISIT EST Diagnosis: Cellulitis of left lower limb[ICD10: L03.116] Diagnosis: Tendinitis of left peroneus longus tendon[ICD10: M76.72] Janneth SHRESTHA [employer] [facility] CPT-4: 12481 11/18/2018 ([id number]) OFFICE/OUTPATIENT VISIT EST Diagnosis: Cellulitis of left foot[ICD10: L03.116] Diagnosis: Spontaneous ecchymoses[ICD10: R23.3] Diagnosis: Venous insufficiency (chronic) (peripheral)[ICD10: I87.2] Diagnosis: Mixed hyperlipidemia[ICD10: E78.2] Vaniamelly WEINER FLOR SHRESTHA [employer] [facility] CPT-4: 53186 11/09/2018 ([id number]) OFFICE/OUTPATIENT VISIT EST Diagnosis: Venous insufficiency (chronic) (peripheral)[ICD10: I87.2] Diagnosis: Cellulitis of left lower limb[ICD10: L03.116] Diagnosis: Pain in right foot[ICD10: M79.671] Vania RAY [employer] CLARK [employer] [facility] CPT-4: 01983 10/13/2018 ([id number]) OFFICE/OUTPATIENT VISIT EST Diagnosis: Low back pain[ICD10: M54.5] Vania Dsouza. Brandon [facility] [employer] [facility] CPT-4: 83387 09/23/2018 ([id number]) OFFICE/OUTPATIENT VISIT EST Diagnosis: Gastro-esophageal reflux disease without esophagitis[ICD10: K21.9] Diagnosis: Dysphagia, pharyngoesophageal phase[ICD10: R13.14] Janneth MERINOLINE [employer] [facility] CPT-4: 17469 09/06/2018 ([id number]) OFFICE/OUTPATIENT VISIT EST Diagnosis: Tinea corporis[ICD10: B35.4] Vania [employer] [facility] CPT-4: 69507 07/15/2018 ([id number]) OFFICE/OUTPATIENT VISIT EST Diagnosis: Cellulitis of left toe[ICD10: L03.032] Diagnosis: Mixed hyperlipidemia[ICD10: E78.2] Mandy MERINOGINNY RAY [employer] CPT-4: 23883 2018 OFFICE/OUTPATIENT VISIT EST Diagnosis: Cellulitis of left toe[ICD10: L03.032] Diagnosis: Unspecified disturbances of skin sensation[ICD10: R20.9] Mandy MERINOLINE [employer] [facility] CPT-4: 06653 04/14/2018 ([id number]) OFFICE/OUTPATIENT VISIT EST Diagnosis: Cellulitis of left toe[ICD10: L03.032] Diagnosis: Insomnia, unspecified[ICD10: G47.00] Vania BUCHANAN [employer] CPT-4: 44999 03/18/2018 ([id number]) OFFICE/OUTPATIENT VISIT EST Diagnosis: Other postprocedural complications and disorders of the circulatory system, not elsewhere classified[ICD10: I97.89] Diagnosis: Rash and other nonspecific skin eruption[ICD10: R21] Diagnosis: Pain in right leg[ICD10: M79.604] Vania SHRESTHA DO [employer] CPT-4: 08955 01/26/2018 ([id number]) OFFICE/OUTPATIENT VISIT EST Diagnosis: Other postprocedural complications and disorders of the circulatory system, not elsewhere classified[ICD10: I97.89] Diagnosis: Cellulitis of right lower limb[ICD10: L03.115] Vania SHRESTHA DO [employer] CPT-4: 64902 12/22/2017 ([id number]) OFFICE/OUTPATIENT VISIT EST Diagnosis: Acute sinusitis, unspecified[ICD10: J01.90] Diagnosis: Unspecified disturbances of skin sensation[ICD10: R20.9] Vania SHRESTHA [employer] CPT-4: 61760 10/06/2017 ([id number]) OFFICE/OUTPATIENT VISIT EST Diagnosis: Primary insomnia[ICD10: F51.01] Diagnosis: Pain in left shoulder[ICD10: M25.512] Diagnosis: Poisoning by other parasympatholytics [anticholinergics and antimuscarinics] and spasmolytics, accidental (unintentional), sequela[ICD10: T44.3X1S] Janneth SHRESTHA [employer] CPT-4: 57188 02/03/2017 OFFICE/OUTPATIENT VISIT EST Diagnosis: Insomnia, unspecified[ICD10: G47.00] Diagnosis: Constipation, unspecified[ICD10: K59.00] Diagnosis: Spontaneous ecchymoses[ICD10: R23.3] Diagnosis: Pain in left foot[ICD10: M79.672] Vania SHRESTHA [facility] CPT-4: 83195 11/25/2016 OFFICE/OUTPATIENT VISIT EST Diagnosis: Insomnia, unspecified[ICD10: G47.00] Diagnosis: Constipation, unspecified[ICD10: K59.00] Diagnosis: Spontaneous ecchymoses[ICD10: R23.3] Diagnosis: Other specified local infections of the skin and subcutaneous tissue[ICD10: L08.89] Vania SHRESTHA [facility] CPT-4: 99 213 11/14/2016 ([id number]) OFFICE/OUTPATIENT VISIT EST Diagnosis: Acute upper respiratory infection, unspecified[ICD10: J06.9] Ester SHRESTHA DO [facility] CPT-4: 70640 04/02/2016 ([id number]) OFFICE/OUTPATIENT VISIT EST Diagnosis: Acute upper respiratory infection, unspecified[ICD10: J06.9] Ester SHRESTHA [facility] CPT-4: 39652 11/29/2015 ([id number]) OFFICE/OUTPATIENT VISIT EST Diagnosis: Pain in thoracic spine[ICD10: M54.6] Diagnosis: Paresthesia of skin[ICD10: R20.2] Diagnosis: Dysphagia, unspecified[ICD10: R13.10] [facility] 75703 06/27/2015 ([id number]) OFFICE/OUTPATIENT VISIT NEW Diagnosis: Pain in left leg[ICD10: M79.605] Diagnosis: Male erectile dysfunction, unspecified[ICD10: N52.9] Diagnosis: Dysphagia, unspecified[ICD10: R13.10] Ester SHRESTHA [facility] CPT-4: 06792 05/24/2015 Plan of Care Planned Activity Notes [...] Patient Education: metoprolol succinate- [employer] Co upon [id number] https://www.[employer].[facility]/samplemd/resources/getResource/61/34617ib0-e0b9-016j-o2 Completed 05/02/2019 Visit Diagnosis Plan: Paroxysmal atrial [...] E11.65 04/25/2019 Appointment: [facility]rest[facility] [phone] [facility] [facility] 04/25/2019 Patient Education: Metformin Patient Savings Message Alert Completed 04/25/2019 Patient Education: prednisone- [employer] Coupon [id number] https://www.[employer].[facility]/samplemd/resources/getResource/61/9rt16cp6-p9lx-2z66-ml Completed 04/25/2019 Visit Diagnosis Plan: DM w/o [...] : T85.818A 04/11/2019 Appointment: Janneth Shrestha WPtel: [address] [place], [place] [address] ACUTE ILLNESS 04/11/2019 Patient Education: metoprolol succinate- [employer] Co upon [id number] https://www.[employer]/resources/getResource/61/th091186-16du-4d27-63 Completed 04/11/2019 Patient Education: Metformin Patient Savings Message Alert Completed 04/11/2019 Patient Education: cephalexin- [employer] Coupon [id number] https://www.[employer]/resources/[employer]/61/8dsb7767-7o0p-5300-nu Completed 04/11/2019 Visit Diagnosis Plan: Folliculitis Discussion: Bactrim and topical bactroban ICD-9 : 704.8 ICD-10 : L73.9 03/01/2019 Visit Diagnosis Plan: Sinus tachycardia Discussion: St art low dose metoprolol ER 25mg daily Monitor pulse Sees Cardiology next month ICD-9 : 427.89 ICD-10 : R00.0 03/01/2019 Appointment: Janneth Shrestha WPtel: [address] [place] [address] [place] FOLLOW UP 03/01/2019 Patient Education: mupirocin- [employer] Coupon [id number] https://www.[employer]/resources/getResource/61/vb270xv4-78du-422k-qe Completed 03/01/2019 Appointment: Janneth Shrestha WPtel: [address] [place] [address] [place] CANCELED 12/20/2018 Visit Diagnosis Plan: Tendinitis [...] ICD-10 : L03.116 11/18/2018 Appointment: Vania García [address] [place], [place] [address] [place] CANCELED 11/18/2018 Appointment: [facility]rest[facility]el[facility] [address] [facility] [facility] 11/18/2018 Patient Education: doxycycline monohydrate- [employer] Coupon [id number] https://www.[employer]Gamestaq/resources/getResource/61/pej50918-y8e0-43j2-8s Completed 11/18/2018 Patient Education: prednisone- [employer] Coupon [id number] [id number] https://www.[employer]am[employer]/resources/getResource/61/02os4x9c-7di5-7231-ld Completed 11/18/2018 Care Plan: Referral Order SNOMED-CT : 30 [id number] Pending 11/18/2018 Visit Diagnosis Plan: Venous insufficiency [...] evaluated in an ED whether it be [place] or wherever he's traveling. discussed the risk of bone involvement and the importance of having it evaluated if worsens. follow up in office when he returns though if no worsening symptoms. ICD-9 : 682.7 ICD-10 : L03.116 11/09/2018 Appointment: [facility] [facility] 11/09/2018 Patient Education: clindamycin HCl- [employer] Coupon [id number] https://www.[employer].[facility]/samplemd/resources/getResource/61/46rz82c8-tx93-0jl3-3k Completed 11/09/2018 Appointment: [facility]restha [facility]el[facility] [address] [facility] [place] CANC[facility] 10/19/2018 Visit Diagnosis Plan: Cellulitis [...] : M79.671 10/13/2018 Appointment: [facility] Patient cant pay copay till when he [...] : M54.5 09/23/2018 Appointment: [facility] [facility] 09/23/2018 Patient Education: Medrol (Brenden)- [employer] Coupon [phone] https://www.[employer]/resources/getResource/61/aqjx799n-6372-25l1-84 Completed 09/23/2018 Visit Diagnosis Plan: Dysphagia, pharyngoesophageal ph ase Discussion: Referral for EGD ICD-9 : 787.24 ICD-10 : R13.14 09/06/2018 Visit Diagnosis Plan: Gastro-esophageal reflux disease without esophagitis Discussion: Start omeprazole ICD-9 : 530.81 ICD-10 : K21.9 09/06/2018 Appointment: Janneth Shrestha WPtel: [phone] [facility] [facility] ACUTE ILLNESS 09/06/2018 Patient Education: omeprazole- [employer] Coupon [id number] https://www.[employer]/resources/getResource/61/185wz327-91u7-864o-22 Completed 09/06/2018 Care Plan: Referral Order SNOMED-CT : 30 7405834 Pending 09/06/2018 Visit Diagnosis Plan: Tinea corporis Discussion: nysta tin to be used bid until rash gone and then an additional 2 days. diflucan every 3 days for 3 doses. keep area clean and dry with no moisturizers. call office if no improvement in 2 weeks or if worsening. ICD-9 : 110.5 ICD-10 : B35.4 07/15/2018 Appointment: [facility] Garc[facility] [facility] 07/15/2018 Patient Education: nystatin- [employer] Coupon [id number] https://www.[employer]/resources/getResource/61/13jkg365-j3jb-17nu-7p Completed 07/15/2018 Patient Education: Plavix- [employer] Coupon [id number] https://www.[employer]/samplemd/resources/getResource/61/61sd2y72-k77z-53jk-43 fa-z998n2155418.pdf Completed 07/15/2018 Patient Education: cyclobenzaprine- [employer] Coupon 19010945 https://www.[employer]/samplemd/resources/getResource/61/54742m1t-1a08-96y1-ll Completed 07/15/2018 Visit Diagnosis Plan: Cellulitis of [...] ICD-10 : L03.032 2018 Appointment: Mandy Hollins [address] [place] [address] FOLLOW UP 2018 Patient Education: mupirocin- [employer] Coupon 201661 [id number] https://www.[employer].[facility]/samplemd/resources/getResource/61/v7vr03g0-5519-6102-0e Completed 2018 Visit Diagnosis Plan: Cellulitis of [...] ICD-10 : R20.9 04/14/2018 Appointment: Mandy Hollins [address] [place] [address] FOLLOW UP 04/14/2018 Visit Diagnosis Plan: Insomnia, [...] ICD-10 : L03.032 03/18/2018 Appointment: Vania García [address] [place], [place] [address] ACUTE ILLNESS 03/18/2018 Patient Education: cyclobenzaprine- [employer] Coupon [id number] https://www.[employer].com/samplemd/resources/getResource/61/7039r242-5sg1-305n-o6 Completed 03/18/2018 Visit Diagnosis Plan: Rash and other nonspecific skin eruption Discussion: triamcinolone ordered to be used as directed. ICD-9 : 782.1 ICD-10 : R21 01/26/2018 Visit Diagnosis Plan: Other postprocedur al complications and disorders of the circulatory system, not elsewhere classified Discussion: discussed with dr. shrestha and patient was instructed to contact the [place] [facility] de[facility]. due to uncontrolled pain, continued erythema, patient needs to be re-evaluated by the surgeon. 60 mg toradol given to patient. patient verbalized understanding and voiced he will contact them today for an appointment. ICD-9 : 997.1 ICD-10 : I97.89 01/26/2018 App[facility]ment[facility] [facility] 01/26/2018 Appointment: Janneth Shrestha WPtel: [phone] [facility] NO SHOW 01/06/2018 Visit Diagnosis Plan: [...] ICD-10 : I97.89 12/22/2017 Appointment: Vania García [address] [place], [place] [address] ACUTE ILLNESS 12/22/2017 Visit Diagnosis Plan: Acute [...] : R20.9 10/06/2017 Appointment: Vania García [address] [place], [place] [address] ACUTE ILLNESS 10/06/2017 Patient Education: Patient Medication Summary Completed 10/06/2017 Appointment: Vania García [address] [place], [place] [address] ER Follow UP 08/17/2017 Appointment: Vania García [address] [place], [place] [address] [place] CANCELED 07/03/2017 Appointment: Janneth Shrestha WPtel: [address] [facility] [place] canceled at 8:05 this morning. 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 ICD-9 : 729.5 ICD-10 : M79.672 11/25/2016 Visit Diagnosis Plan: Spontaneous ecchymoses Discussio n: labs wnl. instructed patient on side effects of plavix and aspirin. will continue to monitor. educated on being careful with movements to prevent injuries. ICD-9 : 782.7 ICD-10 : R23.3 11/25/2016 Appointment: Vania García [address] [place], [place] [address] FOLLOW UP 11/25/2016 Patient Education: Patient Medication [...] ICD-10 : R23.3 11/14/2016 Appointment: Vania García [address] [place] [address] ACUTE ILLNESS 11/14/2016 Patient Education: Patient Medication Summary Completed 11/14/2016 Visit Diagnosis Plan: Acute upper respiratory infectio n, unspecified Discussion: Rxs as above Continue OTC and supportive meds Encouraged smoking cessation Follow up PRN ICD-9 : 465.9 ICD-10 : J06.9 04/02/2016 Appointment: Ester Grande [address] [place] [address] ACUTE ILLNESS 04/02/2016 Patient Education: Patient Medication Summary Completed 04/02/2016 Visit Plan: Rxs as above Supportive care reviewed Follow up PRN 11/29/2015 Appointment: Ester Grande [address] 11/27 confirmed~sl ACUTE ILLNESS 11/29/2015 Patient [...] for pain 06/27/2015 Appointment: [facility] [place] 06/25 lm ~sl 06/26 phone not on~sl FOLLOW UP 06/27/2015 Patient Education: Patient Medication Summary Completed 06/27/2015 Care Plan: X-RAY EXAM RIBS UNI 2 VIEWS L OINC : 92420-2 Pending 06/27/2015 Referral: Héctor Woodard WPtel: [phone] [facility] 05/29 Scheduled with sena ~sl Appointment Re quested 06/26/2015 Referral: Cameron Khanna WPtel: [phone] [facility] [place] Referral Initiated 06/11/2015 Referral: Marco Antonio Green WPtel: [phone] [id number] 05/30/15 Needs to be there at pre op time per ~sl Initiated 06/04/2015 Visit Plan: Will get all necessary refer rals set up - CTS, Uro and G/S Swallow study and routine labs ordered Will further investigate left leg pain with EMG if not cardio related 05/24/2015 Appointment: Ester Grande [address] [facility] NEW PATIENT 05/24/2015 Patient Education: Patient Medication Summary Completed 05/24/2015 Care Plan: Referral Order SNOMED-CT : 30 [id number] Pending 05/24/2015 Care Plan: Referral Order SNOMED-CT : 30 [id number] Pending 05/24/2015 Care Plan: Referral Order SNOMED-CT : 30 4686565 Pending 05/24/2015 Referral: Sudheer Gann WPtel: [phone] [facility] [place] Referral Appointment Requested Referral: Alfonzo Andujar WPtel: [address] [facility] [place] Referral Initiated Referral: [facility] [address] [id number] [place] Referral Completed Referral: Cameron Khanna WPtel: [phone] [facility] [place] Referral Appointment Requested Referral: Brianna Rose WPtel: [address] [address] [place] Referral Initiated Referral: Héctor Woodard WPtel: [address] 05/24/15 [facility] office suggested he see another card. ~sl Initiated Referral: Alfonzo Andujar WPtel: [address] [place] [address] [place] Referral Appointment Requested Referral: Marco Antonio Green WPtel: [phone] [place] [address] [place] Referral Appointment Requested Instructions Comment . [...]
--- OUTSIDE RECORDS SUMMARY | 2019-08-06 10:27 | XMS REPORT | CCD ---
Author Author [place] Organization JANNETH SHRESTHA DO [facility] Address [address] [place] [address] Phone Unavailable Care Team Providers Care Healthcare Financial Analyst Name Role Phone Janneth Shrestha D.O., PP Unavailable CCM Unavailable Summary Purpose Interface Exchange Insurance Providers Payer name Policy type / Coverage type Covered republican ID Effective Begin Date Effective End Date Blue Cross Blue Shield Blue Cross/Blue Shield [id number] Unknown Family History Family History data not found Social History Social History Element Codes Description Effective Dates Marital status Unknown 05/24/2015 Number of children Unknown 2 05/24/2015 Employment Unknown Currently employed 05/24/[address]: 02726552 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 05/24/2015 Allergies, Adverse Reactions, Alerts Substance Reaction Codes Entered Date Inactivated Date Status * NO KNOWN FOOD ALLERGIES Unknown 05/24/2015 No Inactiv e Date Active * NO KNOWN ENVIRONMENTAL ALLERGIES Unknown 05/24/2015 N o Inactive Date Active _ Unknown 05/24/2015 No Inactive Date Active Problems Condition Codes Effective Dates Condition Status Allergic dermatitis ICD-9: 692.9 ICD-10: L23.9 04/25/2019 Active DM w/o complication type II, uncontrolled ICD-9: 250.0 2 ICD-10: E11.65 04/11/2019 Active Paroxysmal atrial fibrillation ICD-9: 427.31 ICD-10: I48.0 04/25/2019 Active Right calf pain ICD-9: 729.5 ICD-10: M79.661 04/25/2019 Active Right leg DVT ICD-9: 453.40 ICD-10: I82.401 04/25/2019 Active Hypertension Unknown 04/11/2019 Active Blood [...] Start Date Stop Date Status Fill Instructions Xarelto 20 mg tablet RxNorm: 9445343 1 Tablet(s) Oral QD 04/25/2019 No Stop Date Active Plavix 75 mg tablet RxNorm: 722838 TAKE ONE TABLET BY MOUTH DAILY 0 04/25/2019 04/26/2019 Active amiodarone 200 mg tablet RxNorm: 633408 1 Tablet(s) Oral QD No Stop Date Active metformin ER 500 mg 24 hr tablet,extended release RxNorm: 18 70236 1 Tablet(s) Oral two times a day 04/25/2019 07/24/2019 Active prednisone 20 mg tablet RxNorm: 971841 1 Tablet(s) Oral two jn es a day 04/25/2019 05/02/2019 Active Plavix 75 mg tablet RxNorm: 462560 TAKE ONE TABLET BY MOUTH DAILY 0 04/25/2019 04/24/2019 Inactive aspirin 81 mg tablet,delayed release RxNorm: 429089 1 Tablet(s) Oral QD 04/11/2019 No Stop Date Active pantoprazole 40 mg tablet,delayed release RxNorm: 397761 1 Tabl et(s) Oral QAM 04/11/2019 No Stop Date Active Vitamin C 1,000 mg tablet RxNorm: 883189 1 Tablet(s) Oral QD 2019 No Stop Date Active metoprolol succinate ER 50 mg tablet,extended release 24 hr RxNorm: 325419 1 Tablet(s) Oral QD replaces 25mg dose 04/11/2019 07/10/2019 Active Xarelto 15 mg tablet RxNorm: 0516346 1 Tablet(s) Oral QD 04/11/2019 0 04/24/2019 Inactive metformin ER 500 mg 24 hr tablet,extended release RxNorm: 18 42708 1 Tablet(s) Oral QD 04/11/2019 04/24/2019 Inactive cephalexin 500 mg capsule RxNorm: 350407 1 Capsule(s) Oral thre e times a day 04/11/2019 04/18/2019 Inactive cyclobenzaprine 10 mg tablet RxNorm: 534254 TAKE ONE TA BLET BY MOUTH EVERY NIGHT AT BEDTIME NEEDED 03/11/2019 No Stop Date Active mupirocin 2 % topical ointment RxNorm: 903516 Applicati on Topical two times a day 03/01/2019 04/10/2019 Inactive metoprolol succinate ER 25 mg tablet,extended release 24 hr RxNorm: 653147 1 Tablet(s) Oral QD 03/01/2019 04/24/2019 Inactive Bactrim DS 800 mg-160 mg tablet RxNorm: 047564 1 Tablet(s) Oral two times a day 03/01/2019 03/11/2019 Inactive omeprazole 40 mg capsule,delayed release RxNorm: 020753 TAKE ONE CAPSULE BY MOUTH EVERY NIGHT AT BEDTIME FOR REFLUX 01/10/2019 No Stop Date Active cyclobenzaprine 10 mg tablet RxNorm: 950413 TAKE ONE TA BLET BY MOUTH EVERY NIGHT AT BEDTIME NEEDED 01/10/2019 03/10/2019 Inactive Plavix 75 mg tablet RxNorm: 761127 TAKE ONE TABLET BY MOUTH DAILY 1 03/12/2018 04/24/2019 Inactive tramadol 50 mg tablet RxNorm: 956377 1 Tablet(s) Oral f our times a day as needed 01/03/2019 01/03/2019 Inactive doxycycline monohydrate 100 mg capsule RxNorm: 3424126 1 Capsule(s) Oral two times a day 11/22/2018 12/13/2018 Inactive prednisone 20 mg tablet RxNorm: 390813 1 Tablet(s) Oral two jn es a day 11/22/2018 11/29/2018 Inactive Levaquin 750 mg tablet RxNorm: 561570 Tablet(s) Oral 11/18/201802/28 Inactive prednisone 20 mg tablet RxNorm: 082653 1 Tablet(s) Oral two jn es a day 11/18/2018 11/21/2018 Inactive tramadol 50 mg tablet RxNorm: 694073 Tablet(s) Oral 11/18/20182018 Inactive doxycycline monohydrate 100 mg capsule RxNorm: 5278306 1 Capsule(s) Oral two times a day 11/18/2018 11/21/2018 Inactive Plavix 75 mg tablet RxNorm: 625296 TAKE ONE TABLET BY MOUTH DAILY 0 11/10/2018 01/08/2019 Inactive clindamycin HCl 300 mg capsule RxNorm: 731895 1 Capsule (s) Oral three times a day 11/09/2018 11/19/2018 Inactive Keflex 500 mg capsule RxNorm: 957879 1 Capsule(s) PO BID 10/13/2018 0 10/22/2018 Inactive Medrol (Brenden) 4 mg tablets in a dose pack RxNorm: 146885 Tablet(s) take as directed PO 09/23/2018 10/12/2018 Inactive omeprazole 40 mg capsule,delayed release RxNorm: 826456 1 Capsule(s) PO QHS for reflux 09/06/2018 11/04/2018 Inactive cyclobenzaprine 10 mg tablet RxNorm: 398600 1 Tablet(s) PO QHS as needed 07/15/2018 10/12/2018 Inactive Diflucan 150 mg tablet RxNorm: 173752 1 Tablet(s) PO Q72H 07/15/2018 09/05/2018 Inactive nystatin 100,000 unit/gram topical cream RxNorm: 482996 1 Gram( s) TOP BID 07/15/2018 09/05/2018 Inactive Plavix 75 mg tablet RxNorm: 699095 1 Tablet(s) PO QD 07/15/201810/12 Inactive cyclobenzaprine 10 mg tablet RxNorm: 500243 1 Tablet(s) PO QHS as needed 06/10/2018 06/09/2018 Inactive cyclobenzaprine 10 mg tablet RxNorm: 903931 TAKE ONE TA BLET BY MOUTH EVERY NIGHT AT BEDTIME NEEDED 05/10/2018 06/10/2018 Inactive mupirocin 2 % topical ointment RxNorm: 806211 1 Application TOP BID 2018 05/25/2018 Inactive 22 gram cyclobenzaprine 10 mg tablet RxNorm: 524245 1 Tablet(s) PO QHS as needed 04/14/2018 06/09/2018 Inactive doxycycline hyclate 100 mg tablet RxNorm: 9281242 1 Tablet(s) PO BI D 04/14/2018 04/23/2018 Inactive cyclobenzaprine 10 mg tablet RxNorm: 872227 1 Tablet(s) PO QHS as needed 04/07/2018 04/13/2018 Inactive Bactrim DS 800 mg-160 mg tablet RxNorm: 360833 1 Tablet(s) PO BID 0 03/18/2018 03/27/2018 Inactive cyclobenzaprine 10 mg tablet RxNorm: 307016 1 Tablet(s) PO QHS as needed 03/18/2018 04/06/2018 Inactive triamcinolone acetonide 0.1 % topical cream RxNorm: 7900373 APPLY TO AFFECTED AREA(S) TWO TIMES A DAY 02/03/2018 02/12/2018 Inactive triamcinolone acetonide 0.1 % topical cream RxNorm: 7364302 1 Application TOP BID 01/26/2018 02/02/2018 Inactive Medrol (Brenden) 4 mg tablets in a dose pack RxNorm: 208205 TAKE BY MOUTH INSTRUCTED - PER PACKAGE INSTRUCTIONS 12/11/2017 12/16/2017 Inactive Medrol (Brenden) 4 mg tablets in a dose pack RxNorm: 667885 Tablet(s) P O 10/06/2017 12/10/2017 Inactive Lunesta 3 mg tablet RxNorm: 853241 1 Tablet(s) PO QHS 11/25/201608/2016 Inactive Lunesta 3 mg tablet RxNorm: 168557 1 Tablet(s) PO QHS 11/14/201610/2016 Inactive Bactrim DS 800 mg-160 mg tablet RxNorm: 325442 1 Tablet(s) PO BID 0 11/14/2016 11/23/2016 Inactive Epi E-Z Pen 0.3 mg/0.3 mL injection, auto-injector RxNorm: 1 782605 Milliliter(s) IM Use as Directed 06/25/2016 09/05/2018 Inactive amoxicillin 875 mg tablet RxNorm: 771039 1 Tablet(s) PO BID 017 04/11/2016 Inactive prednisone 20 mg tablet RxNorm: 967043 1 Tablet(s) PO BID 04/02/2016 04/06/2016 Inactive azithromycin 250 mg tablet RxNorm: 820500 2 Tablet(s) P O on day one then 1 tab on days 2-5 11/29/2015 11/28/2015 Inactive Medrol (Brenden) 4 mg tablets in a dose pack RxNorm: 290106 Take as directed 11/29/2015 11/13/2016 Inactive meloxicam 15 mg tablet RxNorm: 121682 1 Tablet(s) PO QD 07/02/2015 Inactive Chantix Starting Month Box 0.5 mg (11)-1 mg (42) table ts in dose pack RxNorm: 098923 Tablet(s) PO As Directed 06/20/2015 07/10/2015 Inactive omeprazole 40 mg capsule,delayed release RxNorm: 453740 1 Capsu le(s) PO QD 05/31/2015 11/13/2016 Inactive omeprazole 40 mg capsule,delayed release RxNorm: 395855 1 Capsu le(s) PO QD 05/31/2015 05/30/2015 Inactive Lactobacillus acidophilus-Bifidobacterium longum oral RxNorm: oral No Start Date Active Multivitamin And Mineral oral RxNorm: oral No Start Date Active Wellbutrin SR 150 mg tablet,sustained-release RxNorm: 231904 1 Tablet(s) PO BID No Start Date 11/13/2016 Inactive gabapentin 100 mg capsule RxNorm: 375914 1 Capsule(s) PO TID No Sta rt Date 03/17/2018 Inactive Chantix Starting Month Box 0.5 mg (11)-1 mg (42) table ts in dose pack RxNorm: 026722 Tablet(s) PO As Directed No Start Date 06/19/2015 Inactive Eliquis 5 mg tablet RxNorm: 2872140 1 Tablet(s) PO BID No Start Date 03/17/2018 Inactive aspirin 325 mg tablet RxNorm: 709054 1 Tablet(s) PO QD No Start Date 11/13/2016 Inactive clindamycin HCl 300 mg capsule RxNorm: 114086 2 Capsule(s) PO Q8H N o Start Date 03/17/2018 Inactive Fish Oil 1,000 mg (120 mg-180 mg) capsule RxNorm: 1 Caps ule(s) PO QD No Start Date 09/05/2018 Inactive aspirin 81 mg tablet RxNorm: 251252 1 Tablet(s) PO QD No Start Date 1 03/28/2017 Inactive Fish Oil 1,000 mg capsule RxNorm: 1 Capsule(s) PO QD No Start Date 11/13/2016 Inactive Baby Aspirin 81 mg chewable tablet RxNorm: 799574 1 Tablet(s) P O BID No Start Date 02/02/2017 Inactive Xarelto 10 mg tablet RxNorm: 3301078 1 Tablet(s) PO QD No Start Date 01/25/2018 Inactive tramadol 50 mg tablet RxNorm: 092778 1-2 Tablet(s) PO Q6H No Start Date 03/17/2018 Inactive meloxicam 15 mg tablet RxNorm: 263237 1 Tablet(s) PO QD No Start Da te 07/01/2015 Inactive Epi E-Z Pen 0.3 mg/0.3 mL injection, auto-injector RxNorm: 1 122267 Milliliter(s) IM Use as Directed No Start Date 06/24/2016 Inactive Plavix 75 mg tablet RxNorm: 282354 1 Tablet(s) PO QD No Start Date Inactive Medication Administered No Medication Administered data Immunizations No Immunization data Results Observation Observation Code Item Item Code Result Date S ervice Location COMPREHENSIVE METABOLIC 96852 AST 25 U/L 2018 Unknown COMPREHENSIVE METABOLIC 70257 ALT 28 U/L 2018 Unknown COMPREHENSIVE METABOLIC 48664 BUN 13 mg/dL 2018 Unknown COMPREHENSIVE METABOLIC 46384 ALBUMIN 4.2 g/dL 2018 Unknown COMPREHENSIVE METABOLIC 73124 CHLORIDE 104 mmol/L 11/09 Unknown COMPREHENSIVE METABOLIC 51590 Bili Total 0.5 mg/dL 11/09 Unknown COMPREHENSIVE METABOLIC 05470 ALK PHOS 72 U/L 2018 Unknown COMPREHENSIVE METABOLIC 89756 SODIUM 139 mmol/L 11/09 Unknown COMPREHENSIVE METABOLIC 81861 CREATININE 0.98 mg/dL 10/18 Unknown COMPREHENSIVE METABOLIC 39925 CALCIUM 9.1 mg/dL 2018 Unknown COMPREHENSIVE METABOLIC 19980 POTASSIUM 3.7 mmol/L 11/09 Unknown COMPREHENSIVE METABOLIC 60528 Total Protein 7.2 g/dL Unknown COMPREHENSIVE METABOLIC 90251 Glucose 137 mg/dL 2018 Unknown COMPREHENSIVE METABOLIC 03725 Bicarbonate 24 mmol/L 10/18 Unknown COMPREHENSIVE METABOLIC 71143 AGAP 11 mmol/L 2018 Unknown COMPLETE BLOOD COUNT [id number] WBC 4.6 10e9/L 11/10/19 19 Unknown COMPLETE BLOOD COUNT [id number] RBC 4.88 10e12/L 2018 Unknown COMPLETE BLOOD COUNT [id number] HEMOGLOBIN 14.7 g/dL 11/10/19 19 Unknown COMPLETE BLOOD COUNT [id number] HEMATOCRIT 43.7 % 11/10/19 19 Unknown COMPLETE BLOOD COUNT [id number] MCV 89.5 fL 9 Unknown COMPLETE BLOOD COUNT [id number] MCH 30.1 pg 9 Unknown COMPLETE BLOOD COUNT 4800913 MCHC 33.6 g/dL 9 Unknown COMPLETE BLOOD COUNT 5554481 PLATELET COUNT 179 10e9/L Unknown COMPLETE BLOOD COUNT [id number] Mean Plt Volume 11.6 fL Unknown COMPLETE BLOOD COUNT 0949802 Neut Auto 55.5 % 9 Unknown COMPLETE BLOOD COUNT [id number] Lymph Auto 28.7 % 11/10/19 19 Unknown COMPLETE BLOOD COUNT [id number] [place] Auto 7.9 % 9 Unknown COMPLETE BLOOD COUNT 1259710 RDW 13.2 % 9 Unknown COMPLETE BLOOD COUNT 5302740 Eos Auto 7.7 % 9 Unknown COMPLETE BLOOD COUNT [id number] Baso Auto 0.2 % 9 Unknown COMPLETE BLOOD COUNT 0650319 Neutrophil Abs 2.55 10e9/L Unknown COMPLETE BLOOD COUNT [id number] Lymphocyte Abs 1.32 10e9/L Unknown COMPLETE BLOOD COUNT [id number] Monocyte Abs 0.36 10e9/L 10/18 Unknown COMPLETE BLOOD COUNT 7307199 Eosinophil Abs 0.35 10e9/L Unknown COMPLETE BLOOD COUNT 7940009 RDW-SD 42.2 fL 9 Unknown COMPLETE BLOOD COUNT [id number] Basophil Abs 0.01 10e9/L 10/18 Unknown [facility] 74350 Cholesterol 205 mg/dL 11/09/2018 Unkno wn LIPID GROUP 71567 Triglyceride 268 mg/dL 11/09/2018 Unkn own L[facility] 61433 HDL CHOLESTEROL 35 mg/dL 11/09/2018 U nknown L[facility] 73334 Chol/HDL Ratio 5.86 ratio 11/09/2018 U nknown LIP[facility] GROUP 98144 NON-HDL Chol 170 mg/dL 11/09/2018 Unkn own [facility] 56598 LDL Cholesterol 116 mg/dL 11/09/2018 U nknown PT 0622843 PT 12.7 Seconds 11/09/2018 Unknow n PT 5093887 INR 0.9 11/09/2018 Unknown GFR CALC 5385425 GFR Non Afr Amr >60 mL/min 11/09/2018 Un known GFR CALC 9582895 GFR Afr Amr >60 mL/min 11/09/2018 Unknow n ACT PARTIAL THRMBOPLASTIN TIME 21605 PTT 34.0 [place] nds 11/09/2018 Unknown LIPID GROUP 54956 Cholesterol 186 mg/dL 2018 Unkno wn [facility] 00334 Triglyceride 229 mg/dL 2018 Unkn own [facility] 38801 HDL CHOLESTEROL 36 mg/dL 2018 U nknown L[facility] 64421 Chol/HDL Ratio 5.17 ratio 2018 U nknown LIP[facility] GROUP 09415 NON-HDL Chol 150 mg/dL 2018 Unkn own [facility] 14978 LDL Cholesterol 104 mg/dL 2018 U nknown GFR CALC 6992292 GFR Non Afr Amr >60 mL/min 2018 Un known GFR CALC 6868286 GFR Afr Amr >60 mL/min 2018 Unknow n COMPREHENSIVE METABOLIC 48890 AST 23 U/L 2018 Unknown COMPREHENSIVE METABOLIC 32957 ALT 22 U/L 2018 Unknown COMPREHENSIVE METABOLIC 10872 BUN 15 mg/dL 2018 Unknown COMPREHENSIVE METABOLIC 43991 ALBUMIN 4.1 g/dL 2018 Unknown COMPREHENSIVE METABOLIC 85541 CHLORIDE 106 mmol/L 05/06 Unknown COMPREHENSIVE METABOLIC 34981 Bili Total 0.6 mg/dL 05/06 Unknown COMPREHENSIVE METABOLIC 02105 ALK PHOS 61 U/L 2018 Unknown COMPREHENSIVE METABOLIC 11279 SODIUM 141 mmol/L 05/06 Unknown COMPREHENSIVE METABOLIC 50456 CREATININE 0.91 mg/dL 04/17 Unknown COMPREHENSIVE METABOLIC 38999 CALCIUM 9.2 mg/dL 2018 Unknown COMPREHENSIVE METABOLIC 12971 POTASSIUM 3.8 mmol/L 05/06 Unknown COMPREHENSIVE METABOLIC 46836 Total Protein 7.0 g/dL Unknown COMPREHENSIVE METABOLIC 51563 Glucose 97 mg/dL 2018 Unknown COMPREHENSIVE METABOLIC 53036 Bicarbonate 28 mmol/L 04/17 Unknown COMPREHENSIVE METABOLIC 45232 AGAP 7 mmol/L 2018 Unknown THYROID STIMULATING HORMONE 91052 TSH 2.094 uIU/mL 2018 Unknown COMPLETE BLOOD COUNT 7765450 WBC 5.5 10e9/L 05/07/19 19 Unknown COMPLETE BLOOD COUNT 7460800 RBC 4.61 10e12/L 2018 Unknown COMPLETE BLOOD COUNT 3122852 HEMOGLOBIN 13.6 g/dL 05/07/19 19 Unknown COMPLETE BLOOD COUNT 8076960 HEMATOCRIT 40.0 % 05/07/19 19 Unknown COMPLETE BLOOD COUNT 7849517 MCV 86.8 fL 9 Unknown COMPLETE BLOOD COUNT 8365193 MCH 29.5 pg 9 Unknown COMPLETE BLOOD COUNT 1870459 MCHC 34.0 g/dL 9 Unknown COMPLETE BLOOD COUNT 3835933 PLATELET COUNT 197 10e9/L Unknown COMPLETE BLOOD COUNT 7881625 Mean Plt Volume 10.8 fL Unknown COMPLETE BLOOD COUNT 3359356 Neut Auto 49.6 % 9 Unknown COMPLETE BLOOD COUNT 1508804 Lymph Auto 36.8 % 05/07/19 19 Unknown COMPLETE BLOOD COUNT 3100780 [place] Auto 8.1 % 9 Unknown COMPLETE BLOOD COUNT 2102564 RDW 15.3 % 9 Unknown COMPLETE BLOOD COUNT 3293217 Eos Auto 5.3 % 9 Unknown COMPLETE BLOOD COUNT 1062132 Baso Auto 0.2 % 9 Unknown COMPLETE BLOOD COUNT 7252189 Neutrophil Abs 2.73 10e9/L Unknown COMPLETE BLOOD COUNT [id number] Lymphocyte Abs 2.02 10e9/L Unknown COMPLETE BLOOD COUNT [id number] Monocyte Abs 0.45 10e9/L 04/17 Unknown COMPLETE BLOOD COUNT 3606080 Eosinophil Abs 0.29 10e9/L Unknown COMPLETE BLOOD COUNT [id number] RDW-SD 47.9 fL 9 Unknown COMPLETE BLOOD COUNT [id number] Basophil Abs 0.01 10e9/L 04/17 Unknown Procedures Procedure Codes Date CEFTRIAXONE SODIUM INJECTION CPT-4: J0696 11/09/2018 THER/PROPH/DIAG INJ SC/IM CPT-4: 92664 11/09/2018 ROUTINE VENIPUNCTURE CPT-4: 62517 11/09/2018 COMPREHEN METABOLIC PANEL CPT-4: 19355 11/09/2018 COMPLETE CBC W/AUTO DIFF WBC CPT-4: 17008 11/09/2018 LIPID PANEL CPT-4: 58502 11/09/2018 PROTHROMBIN TIME CPT-4: 91935 11/09/2018 THROMBOPLASTIN TIME PARTIAL CPT-4: 30453 11/09/2018 THER/PROPH/DIAG INJ SC/IM CPT-4: 11240 09/23/2018 KETOROLAC TROMETHAMINE INJ CPT-4: J1885 09/23/2018 ROUTINE VENIPUNCTURE CPT-4: 98571 2018 ASSAY THYROID STIM HORMONE CPT-4: 41738 2018 COMPREHEN METABOLIC PANEL CPT-4: 04818 2018 COMPLETE CBC W/AUTO DIFF WBC CPT-4: 03575 2018 LIPID PANEL CPT-4: 59954 2018 CEFTRIAXONE SODIUM INJECTION CPT-4: J0696 04/14/2018 THER/PROPH/DIAG INJ SC/IM CPT-4: 90855 04/14/2018 CEFTRIAXONE SODIUM INJECTION CPT-4: J0696 03/18/2018 THER/PROPH/DIAG INJ SC/IM CPT-4: 39465 03/18/2018 THER/PROPH/DIAG INJ SC/IM CPT-4: 87152 01/26/2018 KETOROLAC TROMETHAMINE INJ CPT-4: J1885 01/26/2018 CEFTRIAXONE SODIUM INJECTION CPT-4: J0696 12/22/2017 THER/PROPH/DIAG INJ SC/IM CPT-4: 05663 12/22/2017 ROUTINE VENIPUNCTURE CPT-4: 40371 11/14/2016 COMPLETE CBC W/AUTO DIFF WBC CPT-4: 45647 11/14/2016 PT/PTT CPT-4: 0122249 11/14/2016 Vital Signs Date Vital 04/25/2019 Blood Pressure 1: 131/76 Code: 8480-6 [...] 1: 134/82 Code: 8480-6 BMI: 23.9 Code: 91688-9 Heart Rate 1: 100 bpm Height: 6'4" [...] 1: 138/70 Code: 8480-6 BMI: 22.6 Code: 09407-6 Heart Rate 1: 97 bpm Height: 6'4" [...] 1: 142/80 Code: 8480-6 BMI: 20.9 Code: 72686-7 Heart Rate 1: 108 bpm Height: 6'4" Respiratory Rate: 20 bpm SpO2: 97% Tempera ture: 36.6 (C) / 97.9 (F) Weight: 172 lbs 01/26/2018 Blood Pressure 1: 130/82 Code: 8480-6 Heart Rate 1: 98 bpm Respiratory Rate: 18 bpm SpO2: 99% Temperature: 35.7 (C) / 96.3 (F) We ight: 175 lbs 12/22/2017 Blood Pressure 1: 124/68 Code: 8480-6 BMI: 22.3 Code: 47701-8 Heart Rate 1: 100 bpm Height: 6'4" Respiratory Rate: 20 bpm SpO2: 98% Tempera ture: 36.7 (C) / 98.0 (F) Weight: 183 lbs 10/06/2017 Blood Pressure 1: 130/86 Code: 8480-6 BMI: 21.1 Code: 45769-5 Heart Rate 1: 92 bpm Height: 6'4" Respiratory Rate: 18 bpm SpO2: 98% Tempera ture: 36.9 (C) / 98.5 (F) Weight: 173 lbs 02/03/2017 Blood Pressure 1: 144/92 Code: 8480-6 BMI: 20.8 Code: 70802-8 Heart Rate 1: 88 bpm Height: 6'4" Respiratory Rate: 20 bpm SpO2: 97% Tempera ture: 36.7 (C) / 98.1 (F) Weight: 171 lbs 11/25/2016 Blood Pressure 1: 126/84 Code: 8480-6 Heart Rate 1: 76 bpm Respiratory Rate: 20 bpm SpO2: 96% Temperature: 36.9 (C) / 98.4 (F) We ight: 170 lbs 11/14/2016 Blood Pressure 1: 126/82 Code: 8480-6 BMI: 20.7 Code: 81004-6 Heart Rate 1: 86 bpm Height: 6'4" Respiratory Rate: 18 bpm SpO2: 96% Tempera ture: 35.8 (C) / 96.5 (F) Weight: 170 lbs 04/02/2016 Blood Pressure 1: 124/78 Code: 8480-6 Heart Rate 1: 88 bpm Respiratory Rate: 24 bpm SpO2: 97% Temperature: 36.1 (C) / 97.0 (F) We ight: 161 lbs 11/29/2015 Blood Pressure 1: 124/68 Code: 8480-6 BMI: 19.2 Code: 57784-1 Heart Rate 1: 94 bpm Height: 6'4" Respiratory Rate: 18 bpm SpO2: 97% Tempera ture: 36.1 (C) / 97.0 (F) Weight: 158 lbs 06/27/2015 Blood Pressure 1: 128/78 Code: 8480-6 BMI: 18.7 Code: 57411-7 Heart Rate 1: 72 bpm Height: 6'4" Respiratory Rate: 22 bpm SpO2: 98% Tempera ture: 35.9 (C) / 96.6 (F) Weight: 154 lbs 05/24/2015 Blood Pressure 1: 112/78 Code: 8480-6 BMI: 19.7 Code: 64730-0 Heart Rate 1: 78 bpm Height: 6'4" Respiratory Rate: 24 bpm SpO2: 97% Tempera ture: 36.4 (C) / 97.6 (F) Weight: 162 lbs Functional Status No Functional Status data Reason For Visit Reason For Visit Effective Dates Notes follow up 04/25/2019 post surgery for dvt [...] care Encounters Encounter Performer Location Codes Date ([id number]) OFFICE/OUTPATIENT VISIT EST Diagnosis: DM w/o complication type II, uncontrolled[ICD10: E11.65] Diagnosis: Allergic dermatitis[ICD10: L23.9] Diagnosis: Right leg DVT[ICD10: I82.401] Diagnosis: Paroxysmal atrial fibrillation[ICD10: I48.0] Diagnosis: Right calf pain[ICD10: M79.661] Janneth SHRESTHA DO [facility] CPT-4: 31534 04/25/2019 ([id number]) OFFICE/OUTPATIENT VISIT EST Diagnosis: DM w/o complication type II, uncontrolled[ICD10: E11.65] Diagnosis: 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, implant, or graft[ICD10: T85.818A] Diagnosis: Essential hypertension[ICD10: I10] Janneth SHRESTHA [facility] CPT-4: 11570 04/11/2019 ([id number]) OFFICE/OUTPATIENT VISIT EST Diagnosis: Sinus tachycardia[ICD10: R00.0] Diagnosis: Folliculitis[ICD10: L73.9] [facility] 15[facility] 03/01/2019 ([id number]) OFFICE/OUTPATIENT VISIT EST Diagnosis: Cellulitis of left lower limb[ICD10: L03.116] Diagnosis: Tendinitis of left peroneus longus tendon[ICD10: M76.72] Janneth SHRESTHA [facility] CPT-4: 29552 11/18/2018 ([id number]) OFFICE/OUTPATIENT VISIT EST Diagnosis: Cellulitis of left foot[ICD10: L03.116] Diagnosis: Spontaneous ecchymoses[ICD10: R23.3] Diagnosis: Venous insufficiency (chronic) (peripheral)[ICD10: I87.2] Diagnosis: Mixed hyperlipidemia[ICD10: E78.2] Vania SHRESTHA Avinger [facility] CPT-4: 88659 11/09/2018 ([id number]) OFFICE/OUTPATIENT VISIT EST Diagnosis: Venous insufficiency (chronic) (peripheral)[ICD10: I87.2] Diagnosis: Cellulitis of left lower limb[ICD10: L03.116] Diagnosis: Pain in right foot[ICD10: M79.671] Vania Dsouza. AMBER Avinger [facility] CPT-4: 88529 10/13/2018 ([id number]) OFFICE/OUTPATIENT VISIT EST Diagnosis: Low back pain[ICD10: M54.5] Vania WARD S. Brandon [facility] CPT-4: 25762 09/23/2018 ([id number]) OFFICE/OUTPATIENT VISIT EST Diagnosis: Gastro-esophageal reflux disease without esophagitis[ICD10: K21.9] Diagnosis: Dysphagia, pharyngoesophageal phase[ICD10: R13.14] [facility] CPT-[facility]: 65173 09/06/2018 ([id number]) OFFICE/OUTPATIENT VISIT EST Diagnosis: Tinea corporis[ICD10: B35.4] Vania SHRESTHA DO [facility] CPT-4: 46081 07/15/2018 ([id number]) OFFICE/OUTPATIENT VISIT EST Diagnosis: Cellulitis of left toe[ICD10: L03.032] Diagnosis: Mixed hyperlipidemia[ICD10: E78.2] M[facility] CPT[facility]: 62591 2018 OFFICE/OUTPATIENT VISIT EST Diagnosis: Cellulitis of left toe[ICD10: L03.032] Diagnosis: Unspecified disturbances of skin sensation[ICD10: R20.9] [facility] CPT-[facility]: 89524 04/14/2018 ([id number]) OFFICE/OUTPATIENT VISIT EST Diagnosis: Cellulitis of left toe[ICD10: L03.032] Diagnosis: Insomnia, unspecified[ICD10: G47.00] [facility] CPT[facility]: 67573 03/18/2018 ([id number]) OFFICE/OUTPATIENT VISIT EST Diagnosis: Other postprocedural complications and disorders of the circulatory system, not elsewhere classified[ICD10: I97.89] Diagnosis: Rash and other nonspecific skin eruption[ICD10: R21] Diagnosis: Pain in right leg[ICD10: M79.604] [facility] CPT[facility]: 11546 01/26/2018 ([id number]) OFFICE/OUTPATIENT VISIT EST Diagnosis: Other postprocedural complications and disorders of the circulatory system, not elsewhere classified[ICD10: I97.89] Diagnosis: Cellulitis of right lower limb[ICD10: L03.115] Vania SHRESTHA [facility] CPT-4: 00941 12/22/2017 ([id number]) OFFICE/OUTPATIENT VISIT EST Diagnosis: Acute sinusitis, unspecified[ICD10: J01.90] Diagnosis: Unspecified disturbances of skin sensation[ICD10: R20.9] Vania SHRESTHA [facility] CPT-4: 07323 10/06/2017 ([id number]) OFFICE/OUTPATIENT VISIT EST Diagnosis: Primary insomnia[ICD10: F51.01] Diagnosis: Pain in left shoulder[ICD10: M25.512] Diagnosis: Poisoning by other parasympatholytics [anticholinergics and antimuscarinics] and spasmolytics, accidental (unintentional), sequela[ICD10: T44.3X1S] Janneth SHRESTHA [facility] CPT-4: 10951 02/03/2017 OFFICE/OUTPATIENT VISIT EST Diagnosis: Insomnia, unspecified[ICD10: G47.00] Diagnosis: Constipation, unspecified[ICD10: K59.00] Diagnosis: Spontaneous ecchymoses[ICD10: R23.3] Diagnosis: Pain in left foot[ICD10: M79.672] Vania [facility]RESTHA [facility] CPT-4: 28216 11/25/2016 OFFICE/OUTPATIENT VISIT EST Diagnosis: Insomnia, unspecified[ICD10: G47.00] Diagnosis: Constipation, unspecified[ICD10: K59.00] Diagnosis: Spontaneous ecchymoses[ICD10: R23.3] Diagnosis: Other specified local infections of the skin and subcutaneous tissue[ICD10: L08.89] Vania SHRESTHA [facility] CPT-4: 99 213 11/14/2016 ([id number]) OFFICE/OUTPATIENT VISIT EST Diagnosis: Acute upper respiratory infection, unspecified[ICD10: J06.9] [place]in [place] JANNETH Liza SHRESTHA [facility] CPT-4: 32489 04/02/2016 ([id number]) OFFICE/OUTPATIENT VISIT EST Diagnosis: Acute upper respiratory infection, unspecified[ICD10: J06.9] Ester WARD [facility] CPT-[facility]: 97583 11/29/2015 ([id number]) OFFICE/OUTPATIENT VISIT EST Diagnosis: Pain in thoracic spine[ICD10: M54.6] Diagnosis: Paresthesia of skin[ICD10: R20.2] Diagnosis: Dysphagia, unspecified[ICD10: R13.10] Ester SHRESTHA [facility] CPT-4: 89522 06/27/2015 ([id number]) OFFICE/OUTPATIENT VISIT NEW Diagnosis: Pain in left leg[ICD10: M79.605] Diagnosis: Male erectile dysfunction, unspecified[ICD10: N52.9] Diagnosis: Dysphagia, unspecified[ICD10: R13.10] Ester SHRESTHA [facility] CPT-4: 57325 05/24/2015 Plan of Care Planned Activity Notes Codes Status Date Visit Diagnosis Plan: Right calf pain Discussion: Will likely need PT but sees surgery tomorrow ICD-9 : 729.5 ICD-10 : M79.661 04/25/2019 Visit Diagnosis Plan: Allergic dermatitis Discussion: Prednisone--warned of elevated BS ICD-9 : 692.9 ICD-10 : L23.9 04/25/2019 Visit Diagnosis Plan: Right leg DVT Discussion: S/P romo esperanzaery Sees Dr. Cortez tomorrow ICD-9 : 453.40 ICD-10 : I82.401 04/25/2019 Visit Diagnosis Plan: Paroxysmal atrial fibrillation D iscussion: Now in NSR ICD-9 : 427.31 ICD-10 : I48.0 04/25/2019 Visit Diagnosis Plan: DM w/o complication type II, unc ontrolled Discussion: Improving with increased dose of metformin ICD-9 : 250.02 ICD-10 : E11.65 04/25/2019 Patient Education: Metformin Patient Savings Message Alert Completed 04/25/2019 Patient Education: prednisone- [employer] Coupon [id number] https://www.[employer].com/tritrue/resources/getResource/61/3bt65xb1-j1ls-5r63-dl Completed 04/25/2019 Visit Diagnosis Plan: DM w/o [...] : T85.818A 04/11/2019 Appointment: Janneth Shrestha WPtel: [address] [place], [place] [id number] ACUTE ILLNESS 04/11/2019 Patient Education: metoprolol succinate- [employer] Co upon [id number] https://www.[employer].com/tritrue/resources/getResource/61/ea106222-35ug-4e32-46 Completed 04/11/2019 Patient Education: Metformin Patient Savings Message Alert Completed 04/11/2019 Patient Education: cephalexin- [employer] Coupon [id number] https://www.[employer].com/tritrue/resources/getResource/61/5dzm0768-5k7e-0095-pj Completed 04/11/2019 Visit Diagnosis Plan: Folliculitis Discussion: Bactrim and topical bactroban ICD-9 : 704.8 ICD-10 : L73.9 03/01/2019 Visit Diagnosis Plan: Sinus tachycardia Discussion: St art low dose metoprolol ER 25mg daily Monitor pulse Sees Cardiology next month ICD-9 : 427.89 ICD-10 : R00.0 03/01/2019 Appointment: Janneth Shrestha WPtel: [address] [place], [place] [phone] [place] FOLLOW UP 03/01/2019 Patient Education: mupirocin- [employer] Coupon [id number] https://www.[employer].com/tritrue/resources/getResource/61/ae385po9-52bg-752f-fq Completed 03/01/2019 Appointment: Janneth Shrestha WPtel: [address] [place], [place] [address] [place] CANCELED 12/20/2018 Visit Diagnosis Plan: Cellulitis [...] ICD-10 : M76.72 11/18/2018 Appointment: Vania García [address] [place], [place] [id number] [place] CANCELED 11/18/2018 Appointment: Janneth Shrestha WPtel: [address] [facility] [place] FOLLOW UP 11/18/2018 Patient Education: doxycycline monohydrate- [employer] Coupon [id number] https://www.[employer].com/sampleRed[employer]/resources/getResource/61/zod03714-c0f9-14f7-9n Completed 11/18/2018 Patient Education: prednisone- [employer] Coupon [id number] https://www.[employer].com/samplemd/resources/getResource/61/44uq9j2x-0xn7-0531-bv Completed 11/18/2018 Care Plan: Referral Order SNOMED-CT : 30 [id number] Pending 11/18/2018 Visit Diagnosis Plan: Venous insufficiency [...] evaluated in an ED whether it be [place] or wherever he's traveling. discussed the risk [...] ICD-10 : R23.3 11/09/2018 Appointment: Vania García [address] [place], [place] [id number] ACUTE ILLNESS 11/09/2018 Patient Education: clindamycin HCl- [employer] Coupon [id number] https://www.[employer].com/samplemd/resources/getResource/61/25vt08d8-jq16-6lx4-7g Completed 11/09/2018 Appointment: Janneth Shrestha [facility]Ptel: [phone] [place] CANCELED 10/19/2018 Visit Diagnosis Plan: Pain [...] ICD-10 : L03.116 10/13/2018 Appointment: Vania García [address] [place], [place] [address] Patient cant pay copay till when he [...] ICD-10 : M54.5 09/23/2018 Appointment: Vania García [address] [place] [address] ACUTE ILLNESS 09/23/2018 Patient Education: Medrol (Brenden)- [employer] Coupon [phone] https://www.[employer].com/tritrue/resources/getResource/61/hhgg740c-9450-51m2-16 Completed 09/23/2018 Visit Diagnosis Plan: Dysphagia, pharyngoesophageal ph ase Discussion: Referral for EGD ICD-9 : 787.24 ICD-10 : R13.14 09/06/2018 Visit Diagnosis Plan: Gastro-esophageal reflux disease without esophagitis Discussion: Start omeprazole ICD-9 : 530.81 ICD-10 : K21.9 09/06/2018 Appointment: Janneth Shrestha WPtel: [facility] [address] ACUTE ILLNESS 09/06/2018 Patient Education: omeprazole- [employer] Coupon [id number] https://www.[employer].com/tritrue/resources/getResource/61/145br285-14d4-275z-05 Completed 09/06/2018 Care Plan: Referral Order SNOMED-CT : 30 [id number] Pending 09/06/2018 Visit Diagnosis Plan: Tinea corporis Discussion: nysta tin to be used bid until rash gone and then an additional 2 days. diflucan every 3 days for 3 doses. keep area clean and dry with no moisturizers. call office if no improvement in 2 weeks or if worsening. ICD-9 : 110.5 ICD-10 : B35.4 07/15/2018 Appointment: Vania García [address] [place] [address] ACUTE ILLNESS 07/15/2018 Patient Education: nystatin- [employer] Coupon [id number] https://www.[employer].com/tritrue/resources/getResource/61/57mic892-g7pj-32so-4q Completed 07/15/2018 Patient Education: Plavix- [employer] Coupon [id number] https://www.tritrue.[employer]/samplemd/resources/getResource/61/89wg8j46-z66q-04hu-67 fa-a515r9501065.pdf Completed 07/15/2018 Patient Education: cyclobenzaprine- [employer] Coupon [id number] https://www.tritrue.[employer]/samplemd/resources/getResource/61/66059c7d-0i72-29n7-xv Completed 07/15/2018 Visit Diagnosis Plan: Cellulitis of [...] ICD-10 : L03.032 2018 Appointment: Mandy Hollins [facility] [address] FOLLOW UP 2018 Patient Education: mupirocin- [employer] Coupon [id number] https://www.tritrue.[employer]/samplemd/resources/getResource/61/n0su20a7-8502-4427-2h Completed 2018 Visit Diagnosis Plan: Cellulitis of [...] ICD-10 : R20.9 04/14/2018 Appointment: Mandy Hollins [facility] [place] [address] FOLLOW UP 04/14/2018 Visit Diagnosis Plan: Cellulitis [...] ICD-10 : G47.00 03/18/2018 Appointment: Vania García [address] [place], [place] [id number] ACUTE ILLNESS 03/18/2018 Patient Education: cyclobenzaprine- [employer] Coupon [id number] https://www.tritrue.[employer]/samplemd/resources/getResource/61/5569x358-4jq1-742v-b9 Completed 03/18/2018 Visit Diagnosis Plan: Rash and other nonspecific skin eruption Discussion: triamcinolone ordered to be used as directed. ICD-9 : 782.1 ICD-10 : R21 01/26/2018 Visit Diagnosis Plan: Other postprocedur al complications and disorders of the circulatory system, not elsewhere classified Discussion: discussed with dr. shrestha and patient was instructed to contact the [facility]. due to uncontrolled pain, continued erythema, patient needs to be re-evaluated by the surgeon. 60 mg toradol given to patient. patient verbalized understanding and voiced he will contact them today for an appointment. ICD-9 : 997.1 ICD-10 : I97.89 01/26/2018 Appointment: Vania García [address] [place], [place] [id number] [facility] Follow Up 01/26/2018 Appointment: Janneth Shrestha WPtel: [address] [facility] [address] NO SHOW 01/06/2018 Visit Diagnosis Plan: [...] ICD-10 : I97.89 12/22/2017 Appointment: Vania García [address] [place], [place] [id number] ACUTE ILLNESS 12/22/2017 Visit Diagnosis Plan: Unspecified [...] : J01.90 10/06/2017 Appointment: Vania García [address] [facility] ACUTE ILLNESS 10/06/2017 Patient Education: Patient Medication Summary Completed 10/06/2017 Appointment: Vania García [address] [facility] ER Follow UP 08/17/2017 Appointment: Vania García [address] [place], [place] [id number] [place] CANCELED 07/03/2017 Appointment: Janneth Shrestha WPtel: [address] [facility] [place] canceled at 8:05 this morning. 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 ICD-9 : 729.5 ICD-10 : M79.672 11/25/2016 Visit Diagnosis Plan: Insomnia, unspecified Recommenda tions: resolved with lunesta. continue taking as prescribed. ICD-9 : 780.52 ICD-10 : G47.00 11/25/2016 Appointment: Vania García [address] [place], [place] [id number] FOLLOW UP 11/25/2016 Patient Education: Patient Medication Summary Completed 11/25/2016 Visit Diagnosis Plan: Insomnia, unspecified Discussion : lunesta 3 mg q hs ordered to be taken daily to assist with sleep disturbance Follow Up: 2 weeks ICD-9 : 780.52 ICD-10 : G47.00 11/14/2016 Visit Diagnosis Plan: Spontaneous ecchymoses Discussio [...] ICD-9 : 686.8 ICD-10 : L08.89 11/14/2016 Appointment: Vania García [address] [place], [place] [address] ACUTE ILLNESS 11/14/2016 Patient Education: Patient Medication Summary Completed 11/14/2016 Visit Diagnosis Plan: Acute upper respiratory infectio n, unspecified Discussion: Rxs as above Continue OTC and supportive meds Encouraged smoking cessation Follow up PRN ICD-9 : 465.9 ICD-10 : J06.9 04/02/2016 Appointment: Ester Grande [address] [place], [place] [id number] ACUTE ILLNESS 04/02/2016 Patient Education: Patient Medication Summary Completed 04/02/2016 Visit Plan: Rxs as above Supportive care reviewed Follow up PRN 11/29/2015 Appointment: Ester Grande [address] [place], [place] [id number] 11/27 confirmed~sl ACUTE ILLNESS 11/29/2015 Patient Education: [...] Ester Grande [address] [facility] 06/25 lm ~sl 06/26 phone not on~sl FOLLOW UP 06/27/2015 Patient Education: Patient Medication Summary Completed 06/27/2015 Care Plan: X-RAY EXAM RIBS UNI 2 VIEWS L OINC : 23682-9 Pending 06/27/2015 Referral: Héctor Woodard WPtel: [address] [facility]66[facility] 05/29 Scheduled with sena ~ Appointment Re quested 06/26/2015 Referral: Cameron Khanna WPtel: [address] [facility] [place] Referral Initiated 06/11/2015 Referral: Marco Antonio Green WPtel: [address] [id number] 05/30/15 Needs to be there at pre op time per ~sl Initiated 06/04/2015 Visit Plan: Will get all necessary refer rals set up - CTS, Uro and G/S Swallow study and routine labs ordered Will further investigate left leg pain with EMG if not cardio related 05/24/2015 Appointment: Ester Grande [address] [facility] NEW PATIENT 05/24/2015 Patient Education: Patient Medication Summary Completed 05/24/2015 Care Plan: Referral Order SNOMED-CT : 30 [id number] Pending 05/24/2015 Care Plan: Referral Order SNOMED-CT : 30 [id number] Pending 05/24/2015 Care Plan: Referral Order SNOMED-CT : 30 3976605 Pending 05/24/2015 Referral: Sudheer Gann WPtel: [address] [facility] [place] Referral Appointment Requested Referral: Alfonzo Andujar WPtel: [address] [facility] [place] Referral Initiated Referral: Cameron Khanna WPtel: [address] [place] [address] [place] Referral Appointment Requested Referral: RoseBrianna WPtel: [address] [place] [address] [place] Referral Initiated Referral: YamiletHéctor WPtel: [address] [place] [address] [place] [facility] ~sl Initiated Referral: Alfonzo Andujar WPtel: [address] [place] [address] [place] Referral Appointment Requested Referral: Marco Antonio Green WPtel: [address] [id number] [place] Referral Appointment Requested Instructions Comment . [...]
--- OUTSIDE RECORDS SUMMARY | 2019-08-06 10:27 | XMS REPORT | CCD ---
Author Author [place] Organization JANNETH SHRESTHA DO [facility] Address [address] [place] [address] Phone Unavailable Care Team Providers Care Insurance Verification Specialist Name Role Phone Janneth Shrestha D.O., PP Unavailable CCM Unavailable Summary Purpose Interface Exchange Insurance Providers Payer name Policy type / Coverage type Covered alliance party ID Effective Begin Date Effective End Date Blue Cross Blue Shield Blue Cross/Blue Shield [id number] Unknown Family History Family History data not found Social History Social History Element Codes Description Effective Dates Marital status Unknown 05/24/2015 Number of children Unknown 2 05/24/2015 Employment Unknown Currently employed 05/24/[address]: [id number] 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 [...] Start Date Stop Date Status Fill Instructions Plavix 75 mg tablet RxNorm: 132649 TAKE ONE TABLET BY MOUTH DAILY 0 04/25/2019 No Stop Date Active Xarelto 20 mg tablet RxNorm: 0893624 1 Tablet(s) Oral QD 04/25/2019 No Stop Date Active amiodarone 200 mg tablet RxNorm: 831589 1 Tablet(s) Oral QD No Stop Date Active metformin ER 500 mg 24 hr tablet,extended release RxNorm: 18 69358 1 Tablet(s) Oral two times a day 04/25/2019 07/24/2019 Active prednisone 20 mg tablet RxNorm: 848392 1 Tablet(s) Oral two jn es a day 04/25/2019 05/02/2019 Active aspirin 81 mg tablet,delayed release RxNorm: 494867 1 Tablet(s) Oral QD 04/11/2019 No Stop Date Active pantoprazole 40 mg tablet,delayed release RxNorm: 676663 1 Tabl et(s) Oral QAM 04/11/2019 No Stop Date Active Vitamin C 1,000 mg tablet RxNorm: 352065 1 Tablet(s) Oral QD 2019 No Stop Date Active metoprolol succinate ER 50 mg tablet,extended release 24 hr RxNorm: 891633 1 Tablet(s) Oral QD replaces 25mg dose 04/11/2019 07/10/2019 Active Xarelto 15 mg tablet RxNorm: 1145555 1 Tablet(s) Oral QD 04/11/2019 0 04/24/2019 Inactive metformin ER 500 mg 24 hr tablet,extended release RxNorm: 18 96725 1 Tablet(s) Oral QD 04/11/2019 04/24/2019 Inactive cephalexin 500 mg capsule RxNorm: 291738 1 Capsule(s) Oral thre e times a day 04/11/2019 04/18/2019 Inactive cyclobenzaprine 10 mg tablet RxNorm: 888001 TAKE ONE TA BLET BY MOUTH EVERY NIGHT AT BEDTIME NEEDED 03/11/2019 No Stop Date Active mupirocin 2 % topical ointment RxNorm: 383749 Applicati on Topical two times a day 03/01/2019 04/10/2019 Inactive metoprolol succinate ER 25 mg tablet,extended release 24 hr RxNorm: 577888 1 Tablet(s) Oral QD 03/01/2019 04/24/2019 Inactive Bactrim DS 800 mg-160 mg tablet RxNorm: 247976 1 Tablet(s) Oral two times a day 03/01/2019 03/11/2019 Inactive omeprazole 40 mg capsule,delayed release RxNorm: 834638 TAKE ONE CAPSULE BY MOUTH EVERY NIGHT AT BEDTIME FOR REFLUX 01/10/2019 No Stop Date Active cyclobenzaprine 10 mg tablet RxNorm: 138433 TAKE ONE TA BLET BY MOUTH EVERY NIGHT AT BEDTIME NEEDED 01/10/2019 03/10/2019 Inactive Plavix 75 mg tablet RxNorm: 260843 TAKE ONE TABLET BY MOUTH DAILY 1 03/12/2018 04/24/2019 Inactive tramadol 50 mg tablet RxNorm: 717198 1 Tablet(s) Oral f our times a day as needed 01/03/2019 01/03/2019 Inactive doxycycline monohydrate 100 mg capsule RxNorm: 7277346 1 Capsule(s) Oral two times a day 11/22/2018 12/13/2018 Inactive prednisone 20 mg tablet RxNorm: 798491 1 Tablet(s) Oral two jn es a day 11/22/2018 11/29/2018 Inactive Levaquin 750 mg tablet RxNorm: 276757 Tablet(s) Oral 11/18/201802/28 Inactive prednisone 20 mg tablet RxNorm: 509742 1 Tablet(s) Oral two jn es a day 11/18/2018 11/21/2018 Inactive tramadol 50 mg tablet RxNorm: 162299 Tablet(s) Oral 11/18/20182018 Inactive doxycycline monohydrate 100 mg capsule RxNorm: 4447255 1 Capsule(s) Oral two times a day 11/18/2018 11/21/2018 Inactive Plavix 75 mg tablet RxNorm: 445716 TAKE ONE TABLET BY MOUTH DAILY 0 11/10/2018 01/08/2019 Inactive clindamycin HCl 300 mg capsule RxNorm: 506042 1 Capsule (s) Oral three times a day 11/09/2018 11/19/2018 Inactive Keflex 500 mg capsule RxNorm: 186261 1 Capsule(s) PO BID 10/13/2018 0 10/22/2018 Inactive Medrol (Brenden) 4 mg tablets in a dose pack RxNorm: 384275 Tablet(s) take as directed PO 09/23/2018 10/12/2018 Inactive omeprazole 40 mg capsule,delayed release RxNorm: 952634 1 Capsule(s) PO QHS for reflux 09/06/2018 11/04/2018 Inactive cyclobenzaprine 10 mg tablet RxNorm: 848962 1 Tablet(s) PO QHS as needed 07/15/2018 10/12/2018 Inactive Diflucan 150 mg tablet RxNorm: 617357 1 Tablet(s) PO Q72H 07/15/2018 09/05/2018 Inactive nystatin 100,000 unit/gram topical cream RxNorm: 178306 1 Gram( s) TOP BID 07/15/2018 09/05/2018 Inactive Plavix 75 mg tablet RxNorm: 004491 1 Tablet(s) PO QD 07/15/201810/12 Inactive cyclobenzaprine 10 mg tablet RxNorm: 238247 1 Tablet(s) PO QHS as needed 06/10/2018 06/09/2018 Inactive cyclobenzaprine 10 mg tablet RxNorm: 163486 TAKE ONE TA BLET BY MOUTH EVERY NIGHT AT BEDTIME NEEDED 05/10/2018 06/10/2018 Inactive mupirocin 2 % topical ointment RxNorm: 252766 1 Application TOP BID 2018 05/25/2018 Inactive 22 gram cyclobenzaprine 10 mg tablet RxNorm: 398270 1 Tablet(s) PO QHS as needed 04/14/2018 06/09/2018 Inactive doxycycline hyclate 100 mg tablet RxNorm: 4202849 1 Tablet(s) PO BI D 04/14/2018 04/23/2018 Inactive cyclobenzaprine 10 mg tablet RxNorm: 902674 1 Tablet(s) PO QHS as needed 04/07/2018 04/13/2018 Inactive Bactrim DS 800 mg-160 mg tablet RxNorm: 500946 1 Tablet(s) PO BID 0 03/18/2018 03/27/2018 Inactive cyclobenzaprine 10 mg tablet RxNorm: 798773 1 Tablet(s) PO QHS as needed 03/18/2018 04/06/2018 Inactive triamcinolone acetonide 0.1 % topical cream RxNorm: 4774760 APPLY TO AFFECTED AREA(S) TWO TIMES A DAY 02/03/2018 02/12/2018 Inactive triamcinolone acetonide 0.1 % topical cream RxNorm: 6018712 1 Application TOP BID 01/26/2018 02/02/2018 Inactive Medrol (Brenden) 4 mg tablets in a dose pack RxNorm: 188204 TAKE BY MOUTH INSTRUCTED - PER PACKAGE INSTRUCTIONS 12/11/2017 12/16/2017 Inactive Medrol (Brenden) 4 mg tablets in a dose pack RxNorm: 297389 Tablet(s) P O 10/06/2017 12/10/2017 Inactive Lunesta 3 mg tablet RxNorm: 936364 1 Tablet(s) PO QHS 11/25/201608/2016 Inactive Lunesta 3 mg tablet RxNorm: 645371 1 Tablet(s) PO QHS 11/14/201610/2016 Inactive Bactrim DS 800 mg-160 mg tablet RxNorm: 711675 1 Tablet(s) PO BID 0 11/14/2016 11/23/2016 Inactive Epi E-Z Pen 0.3 mg/0.3 mL injection, auto-injector RxNorm: 1 845480 Milliliter(s) IM Use as Directed 06/25/2016 09/05/2018 Inactive amoxicillin 875 mg tablet RxNorm: 974697 1 Tablet(s) PO BID 017 04/11/2016 Inactive prednisone 20 mg tablet RxNorm: 113610 1 Tablet(s) PO BID 04/02/2016 04/06/2016 Inactive azithromycin 250 mg tablet RxNorm: 409700 2 Tablet(s) P O on day one then 1 tab on days 2-5 11/29/2015 11/28/2015 Inactive Medrol (Brenden) 4 mg tablets in a dose pack RxNorm: 675861 Take as directed 11/29/2015 11/13/2016 Inactive meloxicam 15 mg tablet RxNorm: 556494 1 Tablet(s) PO QD 07/02/2015 Inactive Chantix Starting Month Box 0.5 mg (11)-1 mg (42) table ts in dose pack RxNorm: 129276 Tablet(s) PO As Directed 06/20/2015 07/10/2015 Inactive omeprazole 40 mg capsule,delayed release RxNorm: 967340 1 Capsu le(s) PO QD 05/31/2015 11/13/2016 Inactive omeprazole 40 mg capsule,delayed release RxNorm: 571331 1 Capsu le(s) PO QD 05/31/2015 05/30/2015 Inactive Lactobacillus acidophilus-Bifidobacterium longum oral RxNorm: oral No Start Date Active Multivitamin And Mineral oral RxNorm: oral No Start Date Active Wellbutrin SR 150 mg tablet,sustained-release RxNorm: 290712 1 Tablet(s) PO BID No Start Date 11/13/2016 Inactive gabapentin 100 mg capsule RxNorm: 309895 1 Capsule(s) PO TID No Sta rt Date 03/17/2018 Inactive Chantix Starting Month Box 0.5 mg (11)-1 mg (42) table ts in dose pack RxNorm: 085714 Tablet(s) PO As Directed No Start Date 06/19/2015 Inactive Eliquis 5 mg tablet RxNorm: 8597169 1 Tablet(s) PO BID No Start Date 03/17/2018 Inactive aspirin 325 mg tablet RxNorm: 557918 1 Tablet(s) PO QD No Start Date 11/13/2016 Inactive clindamycin HCl 300 mg capsule RxNorm: 444706 2 Capsule(s) PO Q8H N o Start Date 03/17/2018 Inactive Fish Oil 1,000 mg (120 mg-180 mg) capsule RxNorm: 1 Caps ule(s) PO QD No Start Date 09/05/2018 Inactive aspirin 81 mg tablet RxNorm: 160309 1 Tablet(s) PO QD No Start Date 1 03/28/2017 Inactive Fish Oil 1,000 mg capsule RxNorm: 1 Capsule(s) PO QD No Start Date 11/13/2016 Inactive Baby Aspirin 81 mg chewable tablet RxNorm: 640683 1 Tablet(s) P O BID No Start Date 02/02/2017 Inactive Xarelto 10 mg tablet RxNorm: 1940329 1 Tablet(s) PO QD No Start Date 01/25/2018 Inactive tramadol 50 mg tablet RxNorm: 781310 1-2 Tablet(s) PO Q6H No Start Date 03/17/2018 Inactive meloxicam 15 mg tablet RxNorm: 935120 1 Tablet(s) PO QD No Start Da te 07/01/2015 Inactive Epi E-Z Pen 0.3 mg/0.3 mL injection, auto-injector RxNorm: 1 019182 Milliliter(s) IM Use as Directed No Start Date 06/24/2016 Inactive Plavix 75 mg tablet RxNorm: 428438 1 Tablet(s) PO QD No Start Date Inactive Medication Administered No Medication Administered data Immunizations No Immunization data Results Observation Observation Code Item Item Code Result Date S vice Location COMPREHENSIVE METABOLIC 60503 AST 25 U/L 2018 Unknown COMPREHENSIVE METABOLIC 22942 ALT 28 U/L 2018 Unknown COMPREHENSIVE METABOLIC 99776 BUN 13 mg/dL 2018 Unknown COMPREHENSIVE METABOLIC 56032 ALBUMIN 4.2 g/dL 2018 Unknown COMPREHENSIVE METABOLIC 66822 CHLORIDE 104 mmol/L 11/09 Unknown COMPREHENSIVE METABOLIC 66551 Bili Total 0.5 mg/dL 11/09 Unknown COMPREHENSIVE METABOLIC 48320 ALK PHOS 72 U/L 2018 Unknown COMPREHENSIVE METABOLIC 63667 SODIUM 139 mmol/L 11/09 Unknown COMPREHENSIVE METABOLIC 53857 CREATININE 0.98 mg/dL 10/18 Unknown COMPREHENSIVE METABOLIC 30560 CALCIUM 9.1 mg/dL 2018 Unknown COMPREHENSIVE METABOLIC 53117 POTASSIUM 3.7 mmol/L 11/09 Unknown COMPREHENSIVE METABOLIC 06006 Total Protein 7.2 g/dL Unknown COMPREHENSIVE METABOLIC 32693 Glucose 137 mg/dL 2018 Unknown COMPREHENSIVE METABOLIC 02466 Bicarbonate 24 mmol/L 10/18 Unknown COMPREHENSIVE METABOLIC 13499 AGAP 11 mmol/L 2018 Unknown COMPLETE BLOOD COUNT [id number] WBC 4.6 10e9/L 11/10/19 19 Unknown COMPLETE BLOOD COUNT [id number] RBC 4.88 10e12/L 2018 Unknown COMPLETE BLOOD COUNT [id number] HEMOGLOBIN 14.7 g/dL 11/10/19 19 Unknown COMPLETE BLOOD COUNT [id number] HEMATOCRIT 43.7 % 11/10/19 19 Unknown COMPLETE BLOOD COUNT [id number] MCV 89.5 fL 9 Unknown COMPLETE BLOOD COUNT [id number] MCH 30.1 pg 9 Unknown COMPLETE BLOOD COUNT [id number] MCHC 33.6 g/dL 9 Unknown COMPLETE BLOOD COUNT [id number] PLATELET COUNT 179 10e9/L Unknown COMPLETE BLOOD COUNT [id number] Mean Plt Volume 11.6 fL Unknown COMPLETE BLOOD COUNT [id number] Neut Auto 55.5 % 9 Unknown COMPLETE BLOOD COUNT [id number] Lymph Auto 28.7 % 09/24/20 19 Unknown COMPLETE BLOOD COUNT [id number] Cowley Auto 7.9 % 9 Unknown COMPLETE BLOOD COUNT [id number] RDW 13.2 % 9 Unknown COMPLETE BLOOD COUNT [id number] Eos Auto 7.7 % 9 Unknown COMPLETE BLOOD COUNT 2354623 Baso Auto 0.2 % 9 Unknown COMPLETE BLOOD COUNT [id number] Neutrophil Abs 2.55 10e9/L Unknown COMPLETE BLOOD COUNT [id number] Lymphocyte Abs 1.32 10e9/L Unknown COMPLETE BLOOD COUNT [id number] Monocyte Abs 0.36 10e9/L 10/18 Unknown COMPLETE BLOOD COUNT [id number] Eosinophil Abs 0.35 10e9/L Unknown COMPLETE BLOOD COUNT [id number] RDW-SD 42.2 fL 9 Unknown COMPLETE BLOOD COUNT [id number] Basophil Abs 0.01 10e9/L 10/18 Unknown LIPID GROUP 70357 Cholesterol 205 mg/dL 11/09/2018 Unkno wn LIPID GROUP 87729 Triglyceride 268 mg/dL 11/09/2018 Unkn own LIPID GROUP 33905 HDL CHOLESTEROL 35 mg/dL 11/09/2018 U nknown LIPID GROUP 56268 Chol/HDL Ratio 5.86 ratio 11/09/2018 U nknown LIPID GROUP 31730 NON-HDL Chol 170 mg/dL 11/09/2018 Unkn own LIPID GROUP 81718 LDL Cholesterol 116 mg/dL 11/09/2018 U nknown PT [id number] PT 12.7 Seconds 11/09/2018 Unknow n PT 8377911 INR 0.9 11/09/2018 Unknown GFR CALC 8155848 GFR Non Afr Amr >60 mL/min 11/09/2018 Un known GFR CALC 4635818 GFR Afr Amr >60 mL/min 11/09/2018 Unknow n ACT PARTIAL THRMBOPLASTIN TIME 01110 PTT 34.0 Seco nds 11/09/2018 Unknown LIPID GROUP 58709 Cholesterol 186 mg/dL 2018 Unkno wn LIPID GROUP 68714 Triglyceride 229 mg/dL 2018 Unkn own LIPID GROUP 31512 HDL CHOLESTEROL 36 mg/dL 2018 U nknown LIP[facility] GROUP 57953 Chol/HDL Ratio 5.17 ratio 2018 U nknown LIPID GROUP 15245 NON-HDL Chol 150 mg/dL 2018 Unkn own LIP[facility] GROUP 31254 LDL Cholesterol 104 mg/dL 2018 U nknown GFR CALC 9066598 GFR Non Afr Amr >60 mL/min 2018 Un known GFR CALC [id number] GFR Afr Amr >60 mL/min 2018 Unknow n COMPREHENSIVE METABOLIC 87764 AST 23 U/L 2018 Unknown COMPREHENSIVE METABOLIC 73887 ALT 22 U/L 2018 Unknown COMPREHENSIVE METABOLIC 32222 BUN 15 mg/dL 2018 Unknown COMPREHENSIVE METABOLIC 51553 ALBUMIN 4.1 g/dL 2018 Unknown COMPREHENSIVE METABOLIC 23838 CHLORIDE 106 mmol/L 05/06 Unknown COMPREHENSIVE METABOLIC 59521 Bili Total 0.6 mg/dL 05/06 Unknown COMPREHENSIVE METABOLIC 75375 ALK PHOS 61 U/L 2018 Unknown COMPREHENSIVE METABOLIC 62463 SODIUM 141 mmol/L 05/06 Unknown COMPREHENSIVE METABOLIC 04325 CREATININE 0.91 mg/dL 04/17 Unknown COMPREHENSIVE METABOLIC 42629 CALCIUM 9.2 mg/dL 2018 Unknown COMPREHENSIVE METABOLIC 79205 POTASSIUM 3.8 mmol/L 05/06 Unknown COMPREHENSIVE METABOLIC 86078 Total Protein 7.0 g/dL Unknown COMPREHENSIVE METABOLIC 71504 Glucose 97 mg/dL 2018 Unknown COMPREHENSIVE METABOLIC 68936 Bicarbonate 28 mmol/L 04/17 Unknown COMPREHENSIVE METABOLIC 13865 AGAP 7 mmol/L 2018 Unknown THYROID STIMULATING HORMONE 71127 TSH 2.094 uIU/mL 2018 Unknown COMPLETE BLOOD COUNT [id number] WBC 5.5 10e9/L 05/07/19 19 Unknown COMPLETE BLOOD COUNT [id number] RBC 4.61 10e12/L 2018 Unknown COMPLETE BLOOD COUNT [id number] HEMOGLOBIN 13.6 g/dL 05/07/19 19 Unknown COMPLETE BLOOD COUNT [id number] HEMATOCRIT 40.0 % 05/07/19 19 Unknown COMPLETE BLOOD COUNT [id number] MCV 86.8 fL 9 Unknown COMPLETE BLOOD COUNT [id number] MCH 29.5 pg 9 Unknown COMPLETE BLOOD COUNT [id number] MCHC 34.0 g/dL 9 Unknown COMPLETE BLOOD COUNT [id number] PLATELET COUNT 197 10e9/L Unknown COMPLETE BLOOD COUNT [id number] Mean Plt Volume 10.8 fL Unknown COMPLETE BLOOD COUNT 5768774 Neut Auto 49.6 % 9 Unknown COMPLETE BLOOD COUNT 3378908 Lymph Auto 36.8 % 05/07/19 19 Unknown COMPLETE BLOOD COUNT 7458883 Cowley Auto 8.1 % 9 Unknown COMPLETE BLOOD COUNT [id number] RDW 15.3 % 9 Unknown COMPLETE BLOOD COUNT 4588148 Eos Auto 5.3 % 9 Unknown COMPLETE BLOOD COUNT [id number] Baso Auto 0.2 % 9 Unknown COMPLETE BLOOD COUNT [id number] Neutrophil Abs 2.73 10e9/L Unknown COMPLETE BLOOD COUNT [id number] Lymphocyte Abs 2.02 10e9/L Unknown COMPLETE BLOOD COUNT [id number] Monocyte Abs 0.45 10e9/L 04/17 Unknown COMPLETE BLOOD COUNT [id number] Eosinophil Abs 0.29 10e9/L Unknown COMPLETE BLOOD COUNT [id number] RDW-SD 47.9 fL 9 Unknown COMPLETE BLOOD COUNT [id number] Basophil Abs 0.01 10e9/L 04/17 Unknown Procedures Procedure Codes Date CEFTRIAXONE SODIUM INJECTION CPT-4: J0696 11/09/2018 THER/PROPH/DIAG INJ SC/IM CPT-4: 36677 11/09/2018 ROUTINE VENIPUNCTURE CPT-4: 12642 11/09/2018 COMPREHEN METABOLIC PANEL CPT-4: 34294 11/09/2018 COMPLETE CBC W/AUTO DIFF WBC CPT-4: 87031 11/09/2018 LIPID PANEL CPT-4: 75091 11/09/2018 PROTHROMBIN TIME CPT-4: 77042 11/09/2018 THROMBOPLASTIN TIME PARTIAL CPT-4: 09004 11/09/2018 THER/PROPH/DIAG INJ SC/IM CPT-4: 34569 09/23/2018 KETOROLAC TROMETHAMINE INJ CPT-4: J1885 09/23/2018 ROUTINE VENIPUNCTURE CPT-4: 38122 2018 ASSAY THYROID STIM HORMONE CPT-4: 51472 2018 COMPREHEN METABOLIC PANEL CPT-4: 86964 2018 COMPLETE CBC W/AUTO DIFF WBC CPT-4: 32475 2018 LIPID PANEL CPT-4: 15783 2018 CEFTRIAXONE SODIUM INJECTION CPT-4: J0696 04/14/2018 THER/PROPH/DIAG INJ SC/IM CPT-4: 95015 04/14/2018 CEFTRIAXONE SODIUM INJECTION CPT-4: J0696 03/18/2018 THER/PROPH/DIAG INJ SC/IM CPT-4: 64943 03/18/2018 THER/PROPH/DIAG INJ SC/IM CPT-4: 19148 01/26/2018 KETOROLAC TROMETHAMINE INJ CPT-4: J1885 01/26/2018 CEFTRIAXONE SODIUM INJECTION CPT-4: J0696 12/22/2017 THER/PROPH/DIAG INJ SC/IM CPT-4: 69914 12/22/2017 ROUTINE VENIPUNCTURE CPT-4: 86278 11/14/2016 COMPLETE CBC W/AUTO DIFF WBC CPT-4: 55556 11/14/2016 PT/PTT CPT-4: 1144830 11/14/2016 Vital Signs Date Vital 04/25/2019 Blood [...] 1: 134/82 Code: 8480-6 BMI: 23.9 Code: 28290-3 Heart Rate 1: 100 bpm Height: 6'4" [...] 1: 138/70 Code: 8480-6 BMI: 22.6 Code: 01278-3 Heart Rate 1: 97 bpm Height: 6'4" [...] 1: 142/80 Code: 8480-6 BMI: 20.9 Code: 51670-5 Heart Rate 1: 108 bpm Height: 6'4" Respiratory Rate: 20 bpm SpO2: 97% Tempera ture: 36.6 (C) / 97.9 (F) Weight: 172 lbs 01/26/2018 Blood Pressure 1: 130/82 Code: 8480-6 Heart Rate 1: 98 bpm Respiratory Rate: 18 bpm SpO2: 99% Temperature: 35.7 (C) / 96.3 (F) We ight: 175 lbs 12/22/2017 Blood Pressure 1: 124/68 Code: 8480-6 BMI: 22.3 Code: 34126-8 Heart Rate 1: 100 bpm Height: 6'4" Respiratory Rate: 20 bpm SpO2: 98% Tempera ture: 36.7 (C) / 98.0 (F) Weight: 183 lbs 10/06/2017 Blood Pressure 1: 130/86 Code: 8480-6 BMI: 21.1 Code: 46759-0 Heart Rate 1: 92 bpm Height: 6'4" Respiratory Rate: 18 bpm SpO2: 98% Tempera ture: 36.9 (C) / 98.5 (F) Weight: 173 lbs 02/03/2017 Blood Pressure 1: 144/92 Code: 8480-6 BMI: 20.8 Code: 35416-0 Heart Rate 1: 88 bpm Height: 6'4" Respiratory Rate: 20 bpm SpO2: 97% Tempera ture: 36.7 (C) / 98.1 (F) Weight: 171 lbs 11/25/2016 Blood Pressure 1: 126/84 Code: 8480-6 Heart Rate 1: 76 bpm Respiratory Rate: 20 bpm SpO2: 96% Temperature: 36.9 (C) / 98.4 (F) We ight: 170 lbs 11/14/2016 Blood Pressure 1: 126/82 Code: 8480-6 BMI: 20.7 Code: 55841-7 Heart Rate 1: 86 bpm Height: 6'4" Respiratory Rate: 18 bpm SpO2: 96% Tempera ture: 35.8 (C) / 96.5 (F) Weight: 170 lbs 04/02/2016 Blood Pressure 1: 124/78 Code: 8480-6 Heart Rate 1: 88 bpm Respiratory Rate: 24 bpm SpO2: 97% Temperature: 36.1 (C) / 97.0 (F) We ight: 161 lbs 11/29/2015 Blood Pressure 1: 124/68 Code: 8480-6 BMI: 19.2 Code: 56756-8 Heart Rate 1: 94 bpm Height: 6'4" Respiratory Rate: 18 bpm SpO2: 97% Tempera ture: 36.1 (C) / 97.0 (F) Weight: 158 lbs 06/27/2015 Blood Pressure 1: 128/78 Code: 8480-6 BMI: 18.7 Code: 83685-2 Heart Rate 1: 72 bpm Height: 6'4" Respiratory Rate: 22 bpm SpO2: 98% Tempera ture: 35.9 (C) / 96.6 (F) Weight: 154 lbs 05/24/2015 Blood Pressure 1: 112/78 Code: 8480-6 BMI: 19.7 Code: 73892-0 Heart Rate 1: 78 bpm Height: 6'4" [...] care Encounters Encounter Performer Location Codes Date ([id number]) OFFICE/OUTPATIENT VISIT EST Diagnosis: DM w/o complication type II, uncontrolled[ICD10: E11.65] Diagnosis: Allergic dermatitis[ICD10: L23.9] Diagnosis: Right leg DVT[ICD10: I82.401] Diagnosis: Paroxysmal atrial fibrillation[ICD10: I48.0] Diagnosis: Right calf pain[ICD10: M79.661] Janneth SHRESTHA DO [facility] CPT-4: 07918 04/25/2019 ([id number]) OFFICE/OUTPATIENT VISIT EST Diagnosis: DM w/o complication type II, uncontrolled[ICD10: E11.65] Diagnosis: 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, implant, or graft[ICD10: T85.818A] Diagnosis: Essential hypertension[ICD10: I10] Jannethrodrigo SHRESTHA [facility] CPT-4: 66136 04/11/2019 ([id number]) OFFICE/OUTPATIENT VISIT EST Diagnosis: Sinus tachycardia[ICD10: R00.0] Diagnosis: Folliculitis[ICD10: L73.9] Janneth HARDY [facility] CPT-4: 30782 03/01/2019 ([id number]) OFFICE/OUTPATIENT VISIT EST Diagnosis: Cellulitis of left lower limb[ICD10: L03.116] Diagnosis: Tendinitis of left peroneus longus tendon[ICD10: M76.72] Janneth SHRESTHA [facility] CPT-4: 16061 11/18/2018 ([id number]) OFFICE/OUTPATIENT VISIT EST Diagnosis: Cellulitis of left foot[ICD10: L03.116] Diagnosis: Spontaneous ecchymoses[ICD10: R23.3] Diagnosis: Venous insufficiency (chronic) (peripheral)[ICD10: I87.2] Diagnosis: Mixed hyperlipidemia[ICD10: E78.2] Vania SHRESTHA [facility] CPT-4: 00871 11/09/2018 ([id number]) OFFICE/OUTPATIENT VISIT EST Diagnosis: Venous insufficiency (chronic) (peripheral)[ICD10: I87.2] Diagnosis: Cellulitis of left lower limb[ICD10: L03.116] Diagnosis: Pain in right foot[ICD10: M79.671] Vania RAY S. HENRIETTA [facility] CPT-4: 12694 10/13/2018 ([id number]) OFFICE/OUTPATIENT VISIT EST Diagnosis: Low back pain[ICD10: M54.5] Vania WARD S. O RENDER [facility] CPT-4: 40676 09/23/2018 ([id number]) OFFICE/OUTPATIENT VISIT EST Diagnosis: Gastro-esophageal reflux disease without esophagitis[ICD10: K21.9] Diagnosis: Dysphagia, pharyngoesophageal phase[ICD10: R13.14] Janneth SHRESTHA [facility] CPT-4: 02012 09/06/2018 ([id number]) OFFICE/OUTPATIENT VISIT EST Diagnosis: Tinea corporis[ICD10: B35.4] Vania SHRESTHA [facility] CPT-4: 41885 07/15/2018 ([id number]) OFFICE/OUTPATIENT VISIT EST Diagnosis: Cellulitis of left toe[ICD10: L03.032] Diagnosis: Mixed hyperlipidemia[ICD10: E78.2] Mandy SHRESTHA [facility] CPT-4: 78260 2018 OFFICE/OUTPATIENT VISIT EST Diagnosis: Cellulitis of left toe[ICD10: L03.032] Diagnosis: Unspecified disturbances of skin sensation[ICD10: R20.9] Mandy SHRESTHA [facility] CPT-4: 88816 04/14/2018 ([id number]) OFFICE/OUTPATIENT VISIT EST Diagnosis: Cellulitis of left toe[ICD10: L03.032] Diagnosis: Insomnia, unspecified[ICD10: G47.00] Vania SHRESTHA [facility] CPT-4: 26674 03/18/2018 ([id number]) OFFICE/OUTPATIENT VISIT EST Diagnosis: Other postprocedural complications and disorders of the circulatory system, not elsewhere classified[ICD10: I97.89] Diagnosis: Rash and other nonspecific skin eruption[ICD10: R21] Diagnosis: Pain in right leg[ICD10: M79.604] Vania SHRESTHA [facility] CPT-4: 87673 01/26/2018 ([id number]) OFFICE/OUTPATIENT VISIT EST Diagnosis: Other postprocedural complications and disorders of the circulatory system, not elsewhere classified[ICD10: I97.89] Diagnosis: Cellulitis of right lower limb[ICD10: L03.115] Vania SHRESTHA [facility] CPT-4: 55552 12/22/2017 ([id number]) OFFICE/OUTPATIENT VISIT EST Diagnosis: Acute sinusitis, unspecified[ICD10: J01.90] Diagnosis: Unspecified disturbances of skin sensation[ICD10: R20.9] Vania SHRESTHA [facility] CPT-4: 77623 10/06/2017 ([id number]) OFFICE/OUTPATIENT VISIT EST Diagnosis: Primary insomnia[ICD10: F51.01] Diagnosis: Pain in left shoulder[ICD10: M25.512] Diagnosis: Poisoning by other parasympatholytics [anticholinergics and antimuscarinics] and spasmolytics, accidental (unintentional), sequela[ICD10: T44.3X1S] Janneth Henrietta JANNETH Liza SHRESTHA [facility] CPT-4: 91521 02/03/2017 OFFICE/OUTPATIENT VISIT EST Diagnosis: Insomnia, unspecified[ICD10: G47.00] Diagnosis: Constipation, unspecified[ICD10: K59.00] Diagnosis: Spontaneous ecchymoses[ICD10: R23.3] Diagnosis: Pain in left foot[ICD10: M79.672] Vania SHRESTHA [facility] CPT-4: 08268 11/25/2016 OFFICE/OUTPATIENT VISIT EST Diagnosis: Insomnia, unspecified[ICD10: G47.00] Diagnosis: Constipation, unspecified[ICD10: K59.00] Diagnosis: Spontaneous ecchymoses[ICD10: R23.3] Diagnosis: Other specified local infections of the skin and subcutaneous tissue[ICD10: L08.89] Vania SHRESTHA [facility] CPT-4: 99 213 11/14/2016 ([id number]) OFFICE/OUTPATIENT VISIT EST Diagnosis: Acute upper respiratory infection, unspecified[ICD10: J06.9] Ester NORWOODQUELINE Liza SHRESTHA [facility] CPT-4: 97731 04/02/2016 ([id number]) OFFICE/OUTPATIENT VISIT EST Diagnosis: Acute upper respiratory infection, unspecified[ICD10: J06.9] Ester NORWOODQUELINE Liza [facility] CPT-4: 87675 11/29/2015 ([id number]) OFFICE/OUTPATIENT VISIT EST Diagnosis: Pain in thoracic spine[ICD10: M54.6] Diagnosis: Paresthesia of skin[ICD10: R20.2] Diagnosis: Dysphagia, unspecified[ICD10: R13.10] Estersimin KUHN [facility] CPT-4: 30855 06/27/2015 ([id number]) OFFICE/OUTPATIENT VISIT NEW Diagnosis: Pain in left leg[ICD10: M79.605] Diagnosis: Male erectile dysfunction, unspecified[ICD10: N52.9] Diagnosis: Dysphagia, unspecified[ICD10: R13.10] Ester Harjinder THERON KUHN [facility] CPT-4: 26369 05/24/2015 Plan of Care Planned Activity Notes [...] Completed 04/25/2019 Patient Education: prednisone- [employer] Coupon [id number] [email or web address] Completed 04/25/2019 Visit Diagnosis Plan: DM w/o [...] graft and stent placement by Dr. Allen--on [email or web address] ICD-9 : 996.70 ICD-10 : T85.818A 04/11/2019 Appointment: Janneth Shrestha WPtel: [address] [place] [address] ACUTE ILLNESS 04/11/2019 Patient Education: metoprolol succinate- [employer] Co upon [id number] https://www.MeinProspekt/Anygma/resources/getResource/61/vm589926-20oi-8i08-48 Completed 04/11/2019 Patient Education: Metformin Patient Savings Message Alert Completed 04/11/2019 Patient Education: cephalexin- [employer] Coupon [id number] https://www.MeinProspekt/Anygma/resources/getResource/61/2ysl6414-6b5q-2840-ey Completed 04/11/2019 Visit Diagnosis Plan: Folliculitis Discussion: Bactrim and topical bactroban ICD-9 : 704.8 ICD-10 : L73.9 03/01/2019 Visit Diagnosis Plan: Sinus tachycardia Discussion: St art low dose metoprolol ER 25mg daily Monitor pulse Sees Cardiology next month ICD-9 : 427.89 ICD-10 : R00.0 03/01/2019 Appointment: Janneth Shrestha WPtel: [address] [place] [address] [place] FOLLOW UP 03/01/2019 Patient Education: mupirocin- [employer] Coupon [id number] https://www.MeinProspekt/Anygma/resources/getResource/61/yw141qn5-56ib-146r-mm Completed 03/01/2019 Appointment: Janneth Shrestha WPtel: [address] [place] [address] [place] CANCELED 12/20/2018 Visit Diagnosis Plan: Cellulitis [...] M76.72 11/18/2018 App[facility]ment[facility] [facility] 11/18/2018 Appointment: [facility]anneth [facility]restha WPtel[facility] [facility] [place] FOLLOW UP 11/18/2018 Patient Education: doxycycline monohydrate- [employer] Coupon [id number] https://www.MeinProspekt/sampleFetch It/resources/getResource/61/ach14329-x1f1-04d3-1g Completed 11/18/2018 Patient Education: prednisone- [employer] Coupon [id number] https://www.MeinProspekt/sampleFetch It/resources/getResource/61/98an3y8n-2ve0-0145-ov Completed 11/18/2018 Care Plan: Referral Order SNOMED-CT : 30 [id number] Pending 11/18/2018 Visit Diagnosis Plan: Venous insufficiency [...] evaluated in an ED whether it be [place] or wherever he's traveling. discussed the risk [...] ICD-10 : R23.3 11/09/2018 Appointment: Vania García [address] [place], [place] [id number] ACUTE ILLNESS 11/09/2018 Patient Education: clindamycin HCl- [employer] Coupon [id number] https://www.Anygma.com/samplemd/resources/getResource/61/21gl64a3-no80-7om5-9g Completed 11/09/2018 Appointment: Janneth [facility]restha [facility]el[facility] [facility] [facility]ED 10/19/2018 Visit Diagnosis Plan: Pain [...] : L03.116 10/13/2018 Appointment: Vania García 504 [facility] Patient cant pay copay till when he [...] : M54.5 09/23/2018 App[facility]ment: [facility] [facility] 09/23/2018 Patient Education: Medrol (Brenden)- [employer] Coupon [id number] https://www.MeinProspekt/samplemd/resources/getResource/61/sztj642k-9367-12x3-96 Completed 09/23/2018 Visit Diagnosis Plan: Dysphagia, pharyngoesophageal ph ase Discussion: Referral for EGD ICD-9 : 787.24 ICD-10 : R13.14 09/06/2018 Visit Diagnosis Plan: Gastro-esophageal reflux disease without esophagitis Discussion: Start omeprazole ICD-9 : 530.81 ICD-10 : K21.9 09/06/2018 Appointment: Janneth Shrestha WPtel: [facility] [facility] ACUTE ILLNESS 09/06/2018 Patient Education: omeprazole- [employer] Coupon [id number] https://www.MeinProspekt/Food Evolutionmd/resources/getResource/61/570bs133-02v8-472q-35 Completed 09/06/2018 Care Plan: Referral Order SNOMED-CT : 30 4140016 Pending 09/06/2018 Visit Diagnosis Plan: Tinea corporis Discussion: nysta tin to be used bid until rash gone and then an additional 2 days. diflucan every 3 days for 3 doses. keep area clean and dry with no moisturizers. call office if no improvement in 2 weeks or if worsening. ICD-9 : 110.5 ICD-10 : B35.4 07/15/2018 Appointment: Van[facility] [facility] 07/15/2018 Patient Education: nystatin- [employer] Coupon [id number] https://www.MeinProspekt/samplemd/resources/getResource/61/58qbb395-f9tl-56ly-5n Completed 07/15/2018 Patient Education: Plavix- [employer] Coupon [id number] https://www.MeinProspekt/samplemd/resources/getResource/61/36iy5t03-m15p-48aw-36 fa-c945s9296207.pdf Completed 07/15/2018 Patient Education: cyclobenzaprine- [employer] Coupon [id number] https://www.MeinProspekt/sampleFetch It/resources/getResource/61/84422b0d-1v08-85z2-sr Completed 07/15/2018 Visit Diagnosis Plan: Cellulitis of [...] ICD-10 : L03.032 2018 Appointment: Mandy Hollins [address] [place] [address] FOLLOW UP 2018 Patient Education: mupirocin- [employer] Coupon [id number] https://www.MeinProspekt/sampleFetch It/resources/getResource/61/v0ig68x7-0252-3243-9a Completed 2018 Visit Diagnosis Plan: Cellulitis of [...] ICD-10 : R20.9 04/14/2018 Appointment: Mandy Hollins [address] [place] [address] FOLLOW UP 04/14/2018 Visit Diagnosis Plan: Cellulitis [...] : G47.00 03/18/2018 Appointment: Vania García [address] [place] [id number] ACUTE [facility]LL[facility] 03/18/2018 Patient Education: cyclobenzaprine- [employer] Coupon [id number] https://www.Anygma.Jule Game/samplemd/resources/getResource/61/6137p160-7zl1-856a-e0 Completed 03/18/2018 Visit Diagnosis Plan: Rash and other nonspecific skin eruption Discussion: triamcinolone ordered to be used as directed. ICD-9 : 782.1 ICD-10 : R21 01/26/2018 Visit Diagnosis Plan: Other postprocedur al complications and disorders of the circulatory system, not elsewhere classified Discussion: discussed with dr. shrestha and patient was instructed to contact the [facility] dept. due to uncontrolled pain, continued erythema, patient needs to be re-evaluated by the surgeon. 60 mg toradol given to patient. patient verbalized understanding and voiced he will contact them today for an appointment. ICD-9 : 997.1 ICD-10 : I97.89 01/26/2018 Appointment: Vania García 504 [facility] Hospital Follow Up 01/26/2018 Appointment: Janneth Shrestha WPtel: [address] [facility] NO SHOW 01/06/2018 Visit Diagnosis Plan: [...] : I97.89 12/22/2017 Appointment: Vania García 504 [facility] ACUTE ILLNESS 12/22/2017 Visit Diagnosis Plan: Unspecified [...] ICD-10 : J01.90 10/06/2017 Appointment: Vania García [address] [place], [place] [id number] ACUTE ILLNESS 10/06/2017 Patient Education: Patient Medication Summary Completed 10/06/2017 Appointment: Vania García [address] [place], [place] [id number] ER Follow UP 08/17/2017 Appointment: Vania García [address] [place], [place] [id number] [place] CANCELED 07/03/2017 Appointment: Janneth [facility]restha WPtel: [id number] [place] canceled at 8:05 this morning. 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 ICD-9 : 729.5 ICD-10 : M79.672 11/25/2016 Visit Diagnosis Plan: Insomnia, unspecified Recommenda tions: resolved with lunesta. continue taking as prescribed. ICD-9 : 780.52 ICD-10 : G47.00 11/25/2016 Appointment: Vania García [address] [place], [place] [id number] FOLLOW UP 11/25/2016 Patient Education: Patient Medication [...] ICD-10 : L08.89 11/14/2016 Appointment: Vania García [address] [place] [address] ACUTE ILLNESS 11/14/2016 Patient Education: Patient Medication Summary Completed 11/14/2016 Visit Diagnosis Plan: Acute upper respiratory infectio n, unspecified Discussion: Rxs as above Continue OTC and supportive meds Encouraged smoking cessation Follow up PRN ICD-9 : 465.9 ICD-10 : J06.9 04/02/2016 Appointment: Ester Grande [address] ACUTE ILLNESS 04/02/2016 Patient Education: Patient Medication Summary Completed 04/02/2016 Visit Plan: Rxs as above Supportive care reviewed Follow up PRN 11/29/2015 Appointment: Ester Grande [address] 11/27 confirmed~sl ACUTE ILLNESS 11/29/2015 Patient [...] off label use for pain 06/27/2015 [facility]ointment[facility] [facility]/25 lm ~sl 06/26 phone not on~sl FOLLOW UP 06/27/2015 Patient Education: Patient Medication Summary Completed 06/27/2015 Care Plan: X-RAY EXAM RIBS UNI 2 VIEWS L OINC : 15114-1 Pending 06/27/2015 Referral: Héctor Woodard WPtel: [address] [facility] 05/29 Scheduled with sena ~sl Appointment Re quested 06/26/2015 Referral: Cameron Khanna WPtel: [facility] [place] Referral Initiated 06/11/2015 Referral: Marco Antonio Green WPtel: [address] [id number] 05/30/15 Needs to be there at pre op time per ~sl Initiated 06/04/2015 Visit Plan: Will get all necessary refer rals set up - CTS, Uro and G/S Swallow study and routine labs ordered Will further investigate left leg pain with EMG if not cardio related 05/24/2015 Appointment: HarjinderEster [address] [facility] NEW PATIENT 05/24/2015 Patient Education: Patient Medication Summary Completed 05/24/2015 Care Plan: Referral Order SNOMED-CT : 30 [id number] Pending 05/24/2015 Care Plan: Referral Order SNOMED-CT : 30 [id number] Pending 05/24/2015 Care Plan: Referral Order SNOMED-CT : 30 [id number] Pending 05/24/2015 Referral: Sudheer Gann WPtel: [address] [facility] [place] Referral Appointment Requested Referral: Alfonzo Andujar WPtel: [address] [facility] [place] Referral Initiated Referral: Cameron Khanna WPtel: [facility] [place] [id number] [place] Referral Appointment Requested Referral: RoseBrianna WPtel: [address] [facility] [place] Referral Initiated Referral: Héctor Woodard WPtel: [address] [place] [place] [facility] [id number] 05/24/15 [facility] office suggested he see another card. ~sl Initiated Referral: Alfonzo Andujar WPtel: [address] [id number] [place] Referral Appointment Requested Referral: Marco Antonio Green WPtel: [address] [id number] [place] Referral Appointment Requested Instructions Comment . [...]
--- OUTSIDE RECORDS SUMMARY | 2019-08-06 10:28 | XMS REPORT | CCD ---
Author Author [place] Organization JANNETH SHRESTHA DO [facility] Address [address] [place] [address] Phone Unavailable Care Team Providers Care Supply Chain Tech Name Role Phone Janneth Shrestha D.O., PP Unavailable CCM Unavailable Summary Purpose Interface Exchange Insurance Providers Payer name Policy type / Coverage type Covered democrat ID Effective Begin Date Effective End Date Blue Cross Blue Shield Blue Cross/Blue Shield [id number] Unknown Family History Family History data not found Social History Social History Element Codes Description Effective Dates Marital status Unknown 05/24/2015 Number of children Unknown 2 05/24/2015 Employment Unknown Currently employed 05/24/[address]: [id number] 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 05/24/2015 Allergies, Adverse Reactions, Alerts Substance Reaction Codes Entered Date Inactivated Date Status * NO KNOWN FOOD ALLERGIES Unknown 05/24/2015 No Inactiv e Date Active * NO KNOWN ENVIRONMENTAL ALLERGIES Unknown 05/24/2015 N o Inactive Date Active _ Unknown 05/24/2015 No Inactive Date Active Problems Condition Codes Effective Dates Condition Status Hypertension Unknown 04/11/2019 Active 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, implant, or graft ICD-9: 996 .70 ICD-10: T85.818A 04/11/2019 Active DM w/o complication type II, uncontrolled ICD-9: 250.0 2 ICD-10: E11.65 04/11/2019 Active Essential hypertension ICD-9: 401.9 ICD-10: [...] Fill Instructions Plavix 75 mg tablet RxNorm: 065720 TAKE ONE TABLET BY MOUTH DAILY 0 04/25/2019 No Stop Date Active aspirin 81 mg tablet,delayed release RxNorm: 232889 1 Tablet(s) Oral QD 04/11/2019 No Stop Date Active pantoprazole 40 mg tablet,delayed release RxNorm: 059482 1 Tabl et(s) Oral QAM 04/11/2019 No Stop Date Active Vitamin C 1,000 mg tablet RxNorm: 386726 1 Tablet(s) Oral QD 2019 No Stop Date Active Xarelto 15 mg tablet RxNorm: 2206064 1 Tablet(s) Oral QD 04/11/2019 No Stop Date Active metformin ER 500 mg 24 hr tablet,extended release RxNorm: 18 24241 1 Tablet(s) Oral QD 04/11/2019 07/10/2019 Active metoprolol succinate ER 50 mg tablet,extended release 24 hr RxNorm: 987966 1 Tablet(s) Oral QD replaces 25mg dose 04/11/2019 07/10/2019 Active cephalexin 500 mg capsule RxNorm: 793388 1 Capsule(s) Oral thre e times a day 04/11/2019 04/18/2019 Inactive cyclobenzaprine 10 mg tablet RxNorm: 144779 TAKE ONE TA BLET BY MOUTH EVERY NIGHT AT BEDTIME NEEDED 03/11/2019 No Stop Date Active metoprolol succinate ER 25 mg tablet,extended release 24 hr RxNorm: 450380 1 Tablet(s) Oral QD 03/01/2019 05/30/2019 Active mupirocin 2 % topical ointment RxNorm: 697960 Applicati on Topical two times a day 03/01/2019 04/10/2019 Inactive Bactrim DS 800 mg-160 mg tablet RxNorm: 696356 1 Tablet(s) Oral two times a day 03/01/2019 03/11/2019 Inactive omeprazole 40 mg capsule,delayed release RxNorm: 481894 TAKE ONE CAPSULE BY MOUTH EVERY NIGHT AT BEDTIME FOR REFLUX 01/10/2019 No Stop Date Active cyclobenzaprine 10 mg tablet RxNorm: 439818 TAKE ONE TA BLET BY MOUTH EVERY NIGHT AT BEDTIME NEEDED 01/10/2019 03/10/2019 Inactive Plavix 75 mg tablet RxNorm: 460796 TAKE ONE TABLET BY MOUTH DAILY 1 03/12/2018 04/24/2019 Inactive tramadol 50 mg tablet RxNorm: 807454 1 Tablet(s) Oral f our times a day as needed 01/03/2019 01/03/2019 Inactive doxycycline monohydrate 100 mg capsule RxNorm: 7163719 1 Capsule(s) Oral two times a day 11/22/2018 12/13/2018 Inactive prednisone 20 mg tablet RxNorm: 061445 1 Tablet(s) Oral two jn es a day 11/22/2018 11/29/2018 Inactive Levaquin 750 mg tablet RxNorm: 885802 Tablet(s) Oral 11/18/201802/28 Inactive prednisone 20 mg tablet RxNorm: 536251 1 Tablet(s) Oral two jn es a day 11/18/2018 11/21/2018 Inactive tramadol 50 mg tablet RxNorm: 684429 Tablet(s) Oral 11/18/20182018 Inactive doxycycline monohydrate 100 mg capsule RxNorm: 3331406 1 Capsule(s) Oral two times a day 11/18/2018 11/21/2018 Inactive Plavix 75 mg tablet RxNorm: 165880 TAKE ONE TABLET BY MOUTH DAILY 0 11/10/2018 01/08/2019 Inactive clindamycin HCl 300 mg capsule RxNorm: 385066 1 Capsule (s) Oral three times a day 11/09/2018 11/19/2018 Inactive Keflex 500 mg capsule RxNorm: 669728 1 Capsule(s) PO BID 10/13/2018 0 10/22/2018 Inactive Medrol (Brenden) 4 mg tablets in a dose pack RxNorm: 653363 Tablet(s) take as directed PO 09/23/2018 10/12/2018 Inactive omeprazole 40 mg capsule,delayed release RxNorm: 565006 1 Capsule(s) PO QHS for reflux 09/06/2018 11/04/2018 Inactive cyclobenzaprine 10 mg tablet RxNorm: 820448 1 Tablet(s) PO QHS as needed 07/15/2018 10/12/2018 Inactive Diflucan 150 mg tablet RxNorm: 561691 1 Tablet(s) PO Q72H 07/15/2018 09/05/2018 Inactive nystatin 100,000 unit/gram topical cream RxNorm: 672324 1 Gram( s) TOP BID 07/15/2018 09/05/2018 Inactive Plavix 75 mg tablet RxNorm: 135717 1 Tablet(s) PO QD 07/15/201810/12 Inactive cyclobenzaprine 10 mg tablet RxNorm: 779829 1 Tablet(s) PO QHS as needed 06/10/2018 06/09/2018 Inactive cyclobenzaprine 10 mg tablet RxNorm: 504026 TAKE ONE TA BLET BY MOUTH EVERY NIGHT AT BEDTIME NEEDED 05/10/2018 06/10/2018 Inactive mupirocin 2 % topical ointment RxNorm: 963619 1 Application TOP BID 2018 05/25/2018 Inactive 22 gram cyclobenzaprine 10 mg tablet RxNorm: 619082 1 Tablet(s) PO QHS as needed 04/14/2018 06/09/2018 Inactive doxycycline hyclate 100 mg tablet RxNorm: 5044567 1 Tablet(s) PO BI D 04/14/2018 04/23/2018 Inactive cyclobenzaprine 10 mg tablet RxNorm: 134737 1 Tablet(s) PO QHS as needed 04/07/2018 04/13/2018 Inactive Bactrim DS 800 mg-160 mg tablet RxNorm: 270155 1 Tablet(s) PO BID 0 03/18/2018 03/27/2018 Inactive cyclobenzaprine 10 mg tablet RxNorm: 148909 1 Tablet(s) PO QHS as needed 03/18/2018 04/06/2018 Inactive triamcinolone acetonide 0.1 % topical cream RxNorm: 1673600 APPLY TO AFFECTED AREA(S) TWO TIMES A DAY 02/03/2018 02/12/2018 Inactive triamcinolone acetonide 0.1 % topical cream RxNorm: 8738500 1 Application TOP BID 01/26/2018 02/02/2018 Inactive Medrol (Brenden) 4 mg tablets in a dose pack RxNorm: 035050 TAKE BY MOUTH INSTRUCTED - PER PACKAGE INSTRUCTIONS 12/11/2017 12/16/2017 Inactive Medrol (Brenden) 4 mg tablets in a dose pack RxNorm: 121582 Tablet(s) P O 10/06/2017 12/10/2017 Inactive Lunesta 3 mg tablet RxNorm: 989372 1 Tablet(s) PO QHS 11/25/201608/2016 Inactive Lunesta 3 mg tablet RxNorm: 956701 1 Tablet(s) PO QHS 11/14/201610/2016 Inactive Bactrim DS 800 mg-160 mg tablet RxNorm: 207478 1 Tablet(s) PO BID 0 11/14/2016 11/23/2016 Inactive Epi E-Z Pen 0.3 mg/0.3 mL injection, auto-injector RxNorm: 1 479879 Milliliter(s) IM Use as Directed 06/25/2016 09/05/2018 Inactive amoxicillin 875 mg tablet RxNorm: 759623 1 Tablet(s) PO BID 017 04/11/2016 Inactive prednisone 20 mg tablet RxNorm: 932197 1 Tablet(s) PO BID 04/02/2016 04/06/2016 Inactive azithromycin 250 mg tablet RxNorm: 018089 2 Tablet(s) P O on day one then 1 tab on days 2-5 11/29/2015 11/28/2015 Inactive Medrol (Brenden) 4 mg tablets in a dose pack RxNorm: 071128 Take as directed 11/29/2015 11/13/2016 Inactive meloxicam 15 mg tablet RxNorm: 707505 1 Tablet(s) PO QD 07/02/2015 Inactive Chantix Starting Month Box 0.5 mg (11)-1 mg (42) table ts in dose pack RxNorm: 365203 Tablet(s) PO As Directed 06/20/2015 07/10/2015 Inactive omeprazole 40 mg capsule,delayed release RxNorm: 678244 1 Capsu le(s) PO QD 05/31/2015 11/13/2016 Inactive omeprazole 40 mg capsule,delayed release RxNorm: 070023 1 Capsu le(s) PO QD 05/31/2015 05/30/2015 Inactive Lactobacillus acidophilus-Bifidobacterium longum oral RxNorm: oral No Start Date Active Multivitamin And Mineral oral RxNorm: oral No Start Date Active Wellbutrin SR 150 mg tablet,sustained-release RxNorm: 145379 1 Tablet(s) PO BID No Start Date 11/13/2016 Inactive gabapentin 100 mg capsule RxNorm: 830207 1 Capsule(s) PO TID No Sta rt Date 03/17/2018 Inactive Chantix Starting Month Box 0.5 mg (11)-1 mg (42) table ts in dose pack RxNorm: 128985 Tablet(s) PO As Directed No Start Date 06/19/2015 Inactive Eliquis 5 mg tablet RxNorm: 8346026 1 Tablet(s) PO BID No Start Date 03/17/2018 Inactive aspirin 325 mg tablet RxNorm: 103365 1 Tablet(s) PO QD No Start Date 11/13/2016 Inactive clindamycin HCl 300 mg capsule RxNorm: 763814 2 Capsule(s) PO Q8H N o Start Date 03/17/2018 Inactive Fish Oil 1,000 mg (120 mg-180 mg) capsule RxNorm: 1 Caps ule(s) PO QD No Start Date 09/05/2018 Inactive aspirin 81 mg tablet RxNorm: 111293 1 Tablet(s) PO QD No Start Date 1 03/28/2017 Inactive Fish Oil 1,000 mg capsule RxNorm: 1 Capsule(s) PO QD No Start Date 11/13/2016 Inactive Baby Aspirin 81 mg chewable tablet RxNorm: 428228 1 Tablet(s) P O BID No Start Date 02/02/2017 Inactive Xarelto 10 mg tablet RxNorm: 0756247 1 Tablet(s) PO QD No Start Date 01/25/2018 Inactive tramadol 50 mg tablet RxNorm: 814727 1-2 Tablet(s) PO Q6H No Start Date 03/17/2018 Inactive meloxicam 15 mg tablet RxNorm: 486443 1 Tablet(s) PO QD No Start Da te 07/01/2015 Inactive Epi E-Z Pen 0.3 mg/0.3 mL injection, auto-injector RxNorm: 1 253900 Milliliter(s) IM Use as Directed No Start Date 06/24/2016 Inactive Plavix 75 mg tablet RxNorm: 386265 1 Tablet(s) PO QD No Start Date Inactive Medication Administered No Medication Administered data Immunizations No Immunization data Results Observation Observation Code Item Item Code Result Date S [facility] Location COMPREHENSIVE METABOLIC 94304 AST 25 U/L 2018 Unknown COMPREHENSIVE METABOLIC 42603 ALT 28 U/L 2018 Unknown COMPREHENSIVE METABOLIC 40502 BUN 13 mg/dL 2018 Unknown COMPREHENSIVE METABOLIC 99577 ALBUMIN 4.2 g/dL 2018 Unknown COMPREHENSIVE METABOLIC 66685 CHLORIDE 104 mmol/L 11/09 Unknown COMPREHENSIVE METABOLIC 85162 Bili Total 0.5 mg/dL 11/09 Unknown COMPREHENSIVE METABOLIC 46519 ALK PHOS 72 U/L 2018 Unknown COMPREHENSIVE METABOLIC 27257 SODIUM 139 mmol/L 11/09 Unknown COMPREHENSIVE METABOLIC 12644 CREATININE 0.98 mg/dL 10/18 Unknown COMPREHENSIVE METABOLIC 96962 CALCIUM 9.1 mg/dL 2018 Unknown COMPREHENSIVE METABOLIC 34337 POTASSIUM 3.7 mmol/L 11/09 Unknown COMPREHENSIVE METABOLIC 12880 Total Protein 7.2 g/dL Unknown COMPREHENSIVE METABOLIC 10787 Glucose 137 mg/dL 2018 Unknown COMPREHENSIVE METABOLIC 74233 Bicarbonate 24 mmol/L 10/18 Unknown COMPREHENSIVE METABOLIC 79354 AGAP 11 mmol/L 2018 Unknown COMPLETE BLOOD COUNT [id number] WBC 4.6 10e9/L 11/10/19 19 Unknown COMPLETE BLOOD COUNT [id number] RBC 4.88 10e12/L 2018 Unknown COMPLETE BLOOD COUNT [id number] HEMOGLOBIN 14.7 g/dL 11/10/19 19 Unknown COMPLETE BLOOD COUNT [id number] HEMATOCRIT 43.7 % 11/10/19 19 Unknown COMPLETE BLOOD COUNT [id number] MCV 89.5 fL 9 Unknown COMPLETE BLOOD COUNT [id number] MCH 30.1 pg 9 Unknown COMPLETE BLOOD COUNT [id number] MCHC 33.6 g/dL 9 Unknown COMPLETE BLOOD COUNT [id number] PLATELET COUNT 179 10e9/L Unknown COMPLETE BLOOD COUNT 9968020 Mean Plt Volume 11.6 fL Unknown COMPLETE BLOOD COUNT 6608511 Neut Auto 55.5 % 9 Unknown COMPLETE BLOOD COUNT 9001071 Lymph Auto 28.7 % 11/10/19 19 Unknown COMPLETE BLOOD COUNT 7280411 [place] Auto 7.9 % 9 Unknown COMPLETE BLOOD COUNT 0605658 Eos Auto 7.7 % 9 Unknown COMPLETE BLOOD COUNT 6703463 RDW 13.2 % 9 Unknown COMPLETE BLOOD COUNT 7979293 Baso Auto 0.2 % 9 Unknown COMPLETE BLOOD COUNT [id number] Neutrophil Abs 2.55 10e9/L Unknown COMPLETE BLOOD COUNT [id number] Lymphocyte Abs 1.32 10e9/L Unknown COMPLETE BLOOD COUNT [id number] Monocyte Abs 0.36 10e9/L 10/18 Unknown COMPLETE BLOOD COUNT [id number] Eosinophil Abs 0.35 10e9/L Unknown COMPLETE BLOOD COUNT [id number] Basophil Abs 0.01 10e9/L 10/18 Unknown COMPLETE BLOOD COUNT 3129129 RDW-SD 42.2 fL 9 Unknown LIP[facility] GROUP 64886 Cholesterol 205 mg/dL 11/09/2018 Unkno wn LIPID GROUP 18041 Triglyceride 268 mg/dL 11/09/2018 Unkn own LIPID GROUP 86014 HDL CHOLESTEROL 35 mg/dL 11/09/2018 U nknown LIPID GROUP 90419 Chol/HDL Ratio 5.86 ratio 11/09/2018 U nknown LIPID GROUP 15577 NON-HDL Chol 170 mg/dL 11/09/2018 Unkn own LIP[facility] GROUP 61627 LDL Cholesterol 116 mg/dL 11/09/2018 U nknown PT [id number] PT 12.7 Seconds 11/09/2018 Unknow n PT [id number] INR 0.9 11/09/2018 Unknown GFR CALC 8991398 GFR Non Afr Amr >60 mL/min 11/09/2018 Un known GFR CALC 1772738 GFR Afr Amr >60 mL/min 11/09/2018 Unknow n ACT PARTIAL THRMBOPLASTIN TIME 63722 PTT 34.0 Sec[place] nds 11/09/2018 Unknown LIPID GROUP 03975 Cholesterol 186 mg/dL 2018 Unkno wn LIP[facility] GROUP 73870 Triglyceride 229 mg/dL 2018 Unkn own LIPID GROUP 33042 HDL CHOLESTEROL 36 mg/dL 2018 U nknown L[facility] GROUP 88861 Chol/HDL Ratio 5.17 ratio 2018 U nknown LIPID GROUP 45492 NON-HDL Chol 150 mg/dL 2018 Unkn own LIPID GROUP 95283 LDL Cholesterol 104 mg/dL 2018 U nknown GFR CALC 1171843 GFR Non Afr Amr >60 mL/min 2018 Un known GFR CALC 3195314 GFR Afr Amr >60 mL/min 2018 Unknow n COMPREHENSIVE METABOLIC 11489 AST 23 U/L 2018 Unknown COMPREHENSIVE METABOLIC 02304 ALT 22 U/L 2018 Unknown COMPREHENSIVE METABOLIC 96702 BUN 15 mg/dL 2018 Unknown COMPREHENSIVE METABOLIC 50082 ALBUMIN 4.1 g/dL 2018 Unknown COMPREHENSIVE METABOLIC 72379 CHLORIDE 106 mmol/L 05/06 Unknown COMPREHENSIVE METABOLIC 70521 Bili Total 0.6 mg/dL 05/06 Unknown COMPREHENSIVE METABOLIC 42633 ALK PHOS 61 U/L 2018 Unknown COMPREHENSIVE METABOLIC 86136 SODIUM 141 mmol/L 05/06 Unknown COMPREHENSIVE METABOLIC 83609 CREATININE 0.91 mg/dL 04/17 Unknown COMPREHENSIVE METABOLIC 65642 CALCIUM 9.2 mg/dL 2018 Unknown COMPREHENSIVE METABOLIC 53676 POTASSIUM 3.8 mmol/L 05/06 Unknown COMPREHENSIVE METABOLIC 70958 Total Protein 7.0 g/dL Unknown COMPREHENSIVE METABOLIC 54224 Glucose 97 mg/dL 2018 Unknown COMPREHENSIVE METABOLIC 25041 Bicarbonate 28 mmol/L 04/17 Unknown COMPREHENSIVE METABOLIC 02191 AGAP 7 mmol/L 2018 Unknown THYROID STIMULATING HORMONE 38283 TSH 2.094 uIU/mL 2018 Unknown COMPLETE BLOOD COUNT [id number] WBC 5.5 10e9/L 05/07/19 19 Unknown COMPLETE BLOOD COUNT [id number] RBC 4.61 10e12/L 2018 Unknown COMPLETE BLOOD COUNT 0106263 HEMOGLOBIN 13.6 g/dL 05/07/19 19 Unknown COMPLETE BLOOD COUNT 7725873 HEMATOCRIT 40.0 % 05/07/19 19 Unknown COMPLETE BLOOD COUNT 4270759 MCV 86.8 fL 9 Unknown COMPLETE BLOOD COUNT 5415763 MCH 29.5 pg 9 Unknown COMPLETE BLOOD COUNT 2495532 MCHC 34.0 g/dL 9 Unknown COMPLETE BLOOD COUNT 9669851 PLATELET COUNT 197 10e9/L Unknown COMPLETE BLOOD COUNT 5484250 Mean Plt Volume 10.8 fL Unknown COMPLETE BLOOD COUNT 1885258 Neut Auto 49.6 % 9 Unknown COMPLETE BLOOD COUNT 4970419 Lymph Auto 36.8 % 05/07/19 19 Unknown COMPLETE BLOOD COUNT 7790778 [place] Auto 8.1 % 9 Unknown COMPLETE BLOOD COUNT 3549779 Eos Auto 5.3 % 9 Unknown COMPLETE BLOOD COUNT [id number] RDW 15.3 % 9 Unknown COMPLETE BLOOD COUNT 6989369 Baso Auto 0.2 % 9 Unknown COMPLETE BLOOD COUNT 1488743 Neutrophil Abs 2.73 10e9/L Unknown COMPLETE BLOOD COUNT [id number] Lymphocyte Abs 2.02 10e9/L Unknown COMPLETE BLOOD COUNT [id number] Monocyte Abs 0.45 10e9/L 04/17 Unknown COMPLETE BLOOD COUNT 5086044 Eosinophil Abs 0.29 10e9/L Unknown COMPLETE BLOOD COUNT [id number] Basophil Abs 0.01 10e9/L 04/17 Unknown COMPLETE BLOOD COUNT [id number] RDW-SD 47.9 fL 9 Unknown Procedures Procedure Codes Date CEFTRIAXONE SODIUM INJECTION CPT-4: J0696 11/09/2018 THER/PROPH/DIAG INJ SC/IM CPT-4: 70976 11/09/2018 ROUTINE VENIPUNCTURE CPT-4: 83901 11/09/2018 COMPREHEN METABOLIC PANEL CPT-4: 11378 11/09/2018 COMPLETE CBC W/AUTO DIFF WBC CPT-4: 27825 11/09/2018 LIPID PANEL CPT-4: 37080 11/09/2018 PROTHROMBIN TIME CPT-4: 24653 11/09/2018 THROMBOPLASTIN TIME PARTIAL CPT-4: 52230 11/09/2018 THER/PROPH/DIAG INJ SC/IM CPT-4: 63416 09/23/2018 KETOROLAC TROMETHAMINE INJ CPT-4: J1885 09/23/2018 ROUTINE VENIPUNCTURE CPT-4: 69255 2018 ASSAY THYROID STIM HORMONE CPT-4: 04271 2018 COMPREHEN METABOLIC PANEL CPT-4: 46745 2018 COMPLETE CBC W/AUTO DIFF WBC CPT-4: 62613 2018 LIPID PANEL CPT-4: 98526 2018 CEFTRIAXONE SODIUM INJECTION CPT-4: J0696 04/14/2018 THER/PROPH/DIAG INJ SC/IM CPT-4: 20790 04/14/2018 CEFTRIAXONE SODIUM INJECTION CPT-4: J0696 03/18/2018 THER/PROPH/DIAG INJ SC/IM CPT-4: 04663 03/18/2018 THER/PROPH/DIAG INJ SC/IM CPT-4: 40264 01/26/2018 KETOROLAC TROMETHAMINE INJ CPT-4: J1885 01/26/2018 CEFTRIAXONE SODIUM INJECTION CPT-4: J0696 12/22/2017 THER/PROPH/DIAG INJ SC/IM CPT-4: 71522 12/22/2017 ROUTINE VENIPUNCTURE CPT-4: 38822 11/14/2016 COMPLETE CBC W/AUTO DIFF WBC CPT-4: 85863 11/14/2016 PT/PTT CPT-4: 6023784 11/14/2016 Vital Signs Date Vital 04/11/2019 Blood Pressure 1: 152/86 Code: 8480-6 Heart Rate 1: 100 bpm Respiratory Rate: 20 bpm SpO2: 96% Temperature: 37.0 (C) / 98.6 (F) We ight: 192 lbs 03/01/2019 Blood Pressure 1: 134/82 Code: 8480-6 BMI: 23.9 Code: 32481-7 Heart Rate 1: 100 bpm Height: 6'4" [...] 1: 138/70 Code: 8480-6 BMI: 22.6 Code: 31264-2 Heart Rate 1: 97 bpm Height: 6'4" [...] 1: 142/80 Code: 8480-6 BMI: 20.9 Code: 09472-5 Heart Rate 1: 108 bpm Height: 6'4" Respiratory Rate: 20 bpm SpO2: 97% Tempera ture: 36.6 (C) / 97.9 (F) Weight: 172 lbs 01/26/2018 Blood Pressure 1: 130/82 Code: 8480-6 Heart Rate 1: 98 bpm Respiratory Rate: 18 bpm SpO2: 99% Temperature: 35.7 (C) / 96.3 (F) We ight: 175 lbs 12/22/2017 Blood Pressure 1: 124/68 Code: 8480-6 BMI: 22.3 Code: 32194-4 Heart Rate 1: 100 bpm Height: 6'4" Respiratory Rate: 20 bpm SpO2: 98% Tempera ture: 36.7 (C) / 98.0 (F) Weight: 183 lbs 10/06/2017 Blood Pressure 1: 130/86 Code: 8480-6 BMI: 21.1 Code: 35847-4 Heart Rate 1: 92 bpm Height: 6'4" Respiratory Rate: 18 bpm SpO2: 98% Tempera ture: 36.9 (C) / 98.5 (F) Weight: 173 lbs 02/03/2017 Blood Pressure 1: 144/92 Code: 8480-6 BMI: 20.8 Code: 65834-1 Heart Rate 1: 88 bpm Height: 6'4" Respiratory Rate: 20 bpm SpO2: 97% Tempera ture: 36.7 (C) / 98.1 (F) Weight: 171 lbs 11/25/2016 Blood Pressure 1: 126/84 Code: 8480-6 Heart Rate 1: 76 bpm Respiratory Rate: 20 bpm SpO2: 96% Temperature: 36.9 (C) / 98.4 (F) We ight: 170 lbs 11/14/2016 Blood Pressure 1: 126/82 Code: 8480-6 BMI: 20.7 Code: 54576-6 Heart Rate 1: 86 bpm Height: 6'4" Respiratory Rate: 18 bpm SpO2: 96% Tempera ture: 35.8 (C) / 96.5 (F) Weight: 170 lbs 04/02/2016 Blood Pressure 1: 124/78 Code: 8480-6 Heart Rate 1: 88 bpm Respiratory Rate: 24 bpm SpO2: 97% Temperature: 36.1 (C) / 97.0 (F) We ight: 161 lbs 11/29/2015 Blood Pressure 1: 124/68 Code: 8480-6 BMI: 19.2 Code: 83889-1 Heart Rate 1: 94 bpm Height: 6'4" Respiratory Rate: 18 bpm SpO2: 97% Tempera ture: 36.1 (C) / 97.0 (F) Weight: 158 lbs 06/27/2015 Blood Pressure 1: 128/78 Code: 8480-6 BMI: 18.7 Code: 36205-3 Heart Rate 1: 72 bpm Height: 6'4" Respiratory Rate: 22 bpm SpO2: 98% Tempera ture: 35.9 (C) / 96.6 (F) Weight: 154 lbs 05/24/2015 Blood Pressure 1: 112/78 Code: 8480-6 BMI: 19.7 Code: 86023-8 Heart Rate 1: 78 bpm Height: 6'4" Respiratory Rate: 24 bpm SpO2: 97% Tempera ture: 36.4 (C) / 97.6 (F) Weight: 162 lbs Functional Status No Functional Status data Reason For Visit Reason For Visit Effective Dates Notes follow up 04/11/2019 rash 03/01/2019 pruritus 11/18/2018 [...] care Encounters Encounter Performer Location Codes Date ([id number]) OFFICE/OUTPATIENT VISIT EST Diagnosis: DM w/o complication type II, uncontrolled[ICD10: E11.65] Diagnosis: 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, implant, or graft[ICD10: T85.818A] Diagnosis: Essential hypertension[ICD10: I10] Janneth RAY SLisandra CANDACE [employer] CPT-4: 65038 04/11/2019 ([id number]) OFFICE/OUTPATIENT VISIT EST Diagnosis: Sinus tachycardia[ICD10: R00.0] Diagnosis: Folliculitis[ICD10: L73.9] Janneth De Jesus OR ANTONY [employer] CPT-4: 57461 03/01/2019 ([id number]) OFFICE/OUTPATIENT VISIT EST Diagnosis: Cellulitis of left lower limb[ICD10: L03.116] Diagnosis: Tendinitis of left peroneus longus tendon[ICD10: M76.72] Janneth WARD MeetLisandra CANDACE [employer] CPT-4: 35518 11/18/2018 ([id number]) OFFICE/OUTPATIENT VISIT EST Diagnosis: Cellulitis of left foot[ICD10: L03.116] Diagnosis: Spontaneous ecchymoses[ICD10: R23.3] Diagnosis: Venous insufficiency (chronic) (peripheral)[ICD10: I87.2] Diagnosis: Mixed hyperlipidemia[ICD10: E78.2] Vania Gironmary RAY [employer] CPT-4: 82657 11/09/2018 ([id number]) OFFICE/OUTPATIENT VISIT EST Diagnosis: Venous insufficiency (chronic) (peripheral)[ICD10: I87.2] Diagnosis: Cellulitis of left lower limb[ICD10: L03.116] Diagnosis: Pain in right foot[ICD10: M79.671] Vania RAY S. SUENDER [employer] CPT-4: 10293 10/13/2018 ([id number]) OFFICE/OUTPATIENT VISIT EST Diagnosis: Low back pain[ICD10: M54.5] Vania WARD S. O YISSEL [employer] CPT-4: 87829 09/23/2018 ([id number]) OFFICE/OUTPATIENT VISIT EST Diagnosis: Gastro-esophageal reflux disease without esophagitis[ICD10: K21.9] Diagnosis: Dysphagia, pharyngoesophageal phase[ICD10: R13.14] Janneth SHRESTHA [facility] CPT-4: 92723 09/06/2018 ([id number]) OFFICE/OUTPATIENT VISIT EST Diagnosis: Tinea corporis[ICD10: B35.4] Vania SHRESTHA [facility] CPT-4: 36624 07/15/2018 ([id number]) OFFICE/OUTPATIENT VISIT EST Diagnosis: Cellulitis of left toe[ICD10: L03.032] Diagnosis: Mixed hyperlipidemia[ICD10: E78.2] Mandy MERINOGINNY RAY Liza SHRESTHA [facility] CPT-4: 70699 2018 OFFICE/OUTPATIENT VISIT EST Diagnosis: Cellulitis of left toe[ICD10: L03.032] Diagnosis: Unspecified disturbances of skin sensation[ICD10: R20.9] Mandy SHRESTHA [facility] CPT-4: 85168 04/14/2018 ([id number]) OFFICE/OUTPATIENT VISIT EST Diagnosis: Cellulitis of left toe[ICD10: L03.032] Diagnosis: Insomnia, unspecified[ICD10: G47.00] Vania SHRESTHA [facility] CPT-4: 65624 03/18/2018 ([id number]) OFFICE/OUTPATIENT VISIT EST Diagnosis: Other postprocedural complications and disorders of the circulatory system, not elsewhere classified[ICD10: I97.89] Diagnosis: Rash and other nonspecific skin eruption[ICD10: R21] Diagnosis: Pain in right leg[ICD10: M79.604] Vania SHRESTHA [facility] CPT-4: 03678 01/26/2018 ([id number]) OFFICE/OUTPATIENT VISIT EST Diagnosis: Other postprocedural complications and disorders of the circulatory system, not elsewhere classified[ICD10: I97.89] Diagnosis: Cellulitis of right lower limb[ICD10: L03.115] Vania SHRESTHA [facility] CPT-4: 04314 12/22/2017 ([id number]) OFFICE/OUTPATIENT VISIT EST Diagnosis: Acute sinusitis, unspecified[ICD10: J01.90] Diagnosis: Unspecified disturbances of skin sensation[ICD10: R20.9] Vania SHRESTHA DO [facility] CPT-4: 78962 10/06/2017 ([id number]) OFFICE/OUTPATIENT VISIT EST Diagnosis: Primary insomnia[ICD10: F51.01] Diagnosis: Pain in left shoulder[ICD10: M25.512] Diagnosis: Poisoning by other parasympatholytics [anticholinergics and antimuscarinics] and spasmolytics, accidental (unintentional), sequela[ICD10: T44.3X1S] Janneth SHRESTHA Loku [facility] CPT-4: 75049 02/03/2017 OFFICE/OUTPATIENT VISIT EST Diagnosis: Insomnia, unspecified[ICD10: G47.00] Diagnosis: Constipation, unspecified[ICD10: K59.00] Diagnosis: Spontaneous ecchymoses[ICD10: R23.3] Diagnosis: Pain in left foot[ICD10: M79.672] Vania SHRESTHA Loku [facility] CPT-4: 34544 11/25/2016 OFFICE/OUTPATIENT VISIT EST Diagnosis: Insomnia, unspecified[ICD10: G47.00] Diagnosis: Constipation, unspecified[ICD10: K59.00] Diagnosis: Spontaneous ecchymoses[ICD10: R23.3] Diagnosis: Other specified local infections of the skin and subcutaneous tissue[ICD10: L08.89] Vania SHRESTHA Loku [facility] CPT-4: 99 213 11/14/2016 ([id number]) OFFICE/OUTPATIENT VISIT EST Diagnosis: Acute upper respiratory infection, unspecified[ICD10: J06.9] Ester Harjinder JANNETH SHRESTHA Loku [facility] CPT-4: 18177 04/02/2016 ([id number]) OFFICE/OUTPATIENT VISIT EST Diagnosis: Acute upper respiratory infection, unspecified[ICD10: J06.9] Ester Grande JANNETH Liza SHRESTHA Loku [facility] CPT-4: 10538 11/29/2015 ([id number]) OFFICE/OUTPATIENT VISIT EST Diagnosis: Pain in thoracic spine[ICD10: M54.6] Diagnosis: Paresthesia of skin[ICD10: R20.2] Diagnosis: Dysphagia, unspecified[ICD10: R13.10] Ester SHRESTHA DO [facility] CPT-4: 44053 06/27/2015 ([id number]) OFFICE/OUTPATIENT VISIT NEW Diagnosis: Pain in left leg[ICD10: M79.605] Diagnosis: Male erectile dysfunction, unspecified[ICD10: N52.9] Diagnosis: Dysphagia, unspecified[ICD10: R13.10] Ester SHRESTHA DO [facility] CPT-4: 53810 05/24/2015 Plan of Care Planned Activity Notes [...] T85.818A 04/11/2019 Appointment: Janneth Shrestha [facility]el[phone] [id number] [facility] 04/11/2019 Patient Education: metoprolol succinate- [employer] Co upon [id number] [email or web address] TV/resources/getResource/61/[id number] Completed 04/11/2019 Patient Education: Metformin Patient Savings Message Alert Completed 04/11/2019 Patient Education: cephalexin- OptimizeRX Coupon [id number] https://www.Wysiwyg/WorkshopLivemd/resources/getResource/61/6hzz7534-2a1u-4873-yp Completed 04/11/2019 Visit Diagnosis Plan: Folliculitis Discussion: Bactrim and topical bactroban ICD-9 : 704.8 ICD-10 : L73.9 03/01/2019 Visit Diagnosis Plan: Sinus tachycardia Discussion: St art low dose metoprolol ER 25mg daily Monitor pulse Sees Cardiology next month ICD-9 : 427.89 ICD-10 : R00.0 03/01/2019 Appointment: Janneth Shrestha WPtel: [address] [place], [place] [id number] [place] FOLLOW UP 03/01/2019 Patient Education: mupirocin- [employer]imize[employer] Coupon [id number] https://www.Wysiwyg/sampleConsensus [facility]/resources/getResource/61/ml605lc4-43ib-757z-cn Completed 03/01/2019 Appointment: Janneth Shrestha WPtel: [address] [place], [place] [id number] [place] CANCELED 12/20/2018 Visit Diagnosis Plan: Cellulitis [...] ICD-10 : M76.72 11/18/2018 Appointment: Vania García [address] [place], [place] [id number] [place] CANCELED 11/18/2018 Appointment: Janneth Shrestha WPtel: [address] [place], [place] [phone] [place] FOLLOW UP 11/18/2018 Patient Education: doxycycline monohydrate- OptimizeRX Coupon [id number] https://www.Wysiwyg/Voice Of TV/resources/getResource/61/rgn70438-f2i2-18o7-9k Completed 11/18/2018 Patient Education: prednisone- OptimizeRX Coupon [id number] https://www.Voice Of TV.[employer] Collar/samplemd/resources/getResource/61/23ta1c3g-5ny1-5644-am Completed 11/18/2018 Care Plan: Referral Order SNOMED-CT : 30 [id number] Pending 11/18/2018 Visit Diagnosis Plan: Venous insufficiency [...] evaluated in an ED whether it be [place] or wherever he's traveling. discussed the risk [...] ICD-10 : R23.3 11/09/2018 Appointment: Vania García [address] [place], [place] [id number] ACUTE ILLNESS 11/09/2018 Patient Education: clindamycin HCl- OptimizeRX Coupon [id number] https://www.Voice Of TV.com/samplemd/resources/getResource/61/20oj48x6-ki16-3ek5-8y Completed 11/09/2018 Appointment: Janneth Shresthatel: [address] [id number] [place] CANCELED 10/19/2018 Visit Diagnosis Plan: Pain [...] ICD-10 : L03.116 10/13/2018 Appointment: Vania García [address] [place], [place] [id number] Patient cant pay copay till when he [...] ICD-10 : M54.5 09/23/2018 Appointment: Vania García [address] [place], [place] [id number] ACUTE ILLNESS 09/23/2018 Patient Education: Medrol (Bren[place])- OptimizeRX Coupon [phone] [id number] https://www.Voice Of TV.[employer]/samplemd/resources/getResource/61/uxyd487w-6880-07l2-83 Completed 09/23/2018 Visit Diagnosis Plan: Dysphagia, pharyngoesophageal ph ase Discussion: Referral for EGD ICD-9 : 787.24 ICD-10 : R13.14 09/06/2018 Visit Diagnosis Plan: Gastro-esophageal reflux disease without esophagitis Discussion: Start omeprazole ICD-9 : 530.81 ICD-10 : K21.9 09/06/2018 Appointment: [facility] [place] [facility] 09/06/2018 Patient Education: omeprazole- OptimizeRX Coupon 34944 [id number] https://www.Wysiwyg/samplemd/resources/getResource/61/289rd213-47z9-148w-27 Completed 09/06/2018 Care Plan: Referral Order SNOMED-CT : 30 5543306 Pending 09/06/2018 Visit Diagnosis Plan: Tinea corporis Discussion: nysta tin to be used bid until rash gone and then an additional 2 days. diflucan every 3 days for 3 doses. keep area clean and dry with no moisturizers. call office if no improvement in 2 weeks or if worsening. ICD-9 : 110.5 ICD-10 : B35.4 07/15/2018 Appointment: Vania García [address] [place], [place] [address] ACUTE ILLNESS 07/15/2018 Patient Education: nystatin- OptimizeRX Coupon [id number] https://www.Wysiwyg/samplemd/resources/getResource/61/29uil739-a2xk-72ah-4r Completed 07/15/2018 Patient Education: Plavix- OptimizeRX Coupon [id number] https://www.Voice Of TV.[employer]lar/samplemd/resources/getResource/61/98dv4s77-g45f-05zt-99 fa-i362w1613242.pdf Completed 07/15/2018 Patient Education: cyclobenzaprine- OptimizeRX Coupon 13638776 https://www.Wysiwyg/samplemd/resources/getResource/61/43133o8d-6q06-80a7-rs Completed 07/15/2018 Visit Diagnosis Plan: Cellulitis of [...] ICD-10 : L03.032 2018 Appointment: Mandy Hollins [address] [place], [place] [id number] FOLLOW UP 2018 Patient Education: mupirocin- OptimizeRX Courox [id number] https://www.Voice Of TV.com/samplemd/resources/getResource/61/f2xo05r4-5308-0127-5y Completed 2018 Visit Diagnosis Plan: Cellulitis of [...] ICD-10 : R20.9 04/14/2018 Appointment: Mandy Hollins [address] [place], [place] [id number] FOLLOW UP 04/14/2018 Visit Diagnosis Plan: Cellulitis [...] ICD-10 : G47.00 03/18/2018 Appointment: Vania García [address] [place], [place] [id number] ACUTE ILLNESS 03/18/2018 Patient Education: cyclobenzaprine- OptimizeRX Coupon 10234475 https://www.Voice Of TV.com/samplemd/resources/getResource/61/4038u169-5mr6-415h-b9 Completed 03/18/2018 Visit Diagnosis Plan: Rash and other nonspecific skin eruption Discussion: triamcinolone ordered to be used as directed. ICD-9 : 782.1 ICD-10 : R21 01/26/2018 Visit Diagnosis Plan: Other postprocedur al complications and disorders of the circulatory system, not elsewhere classified Discussion: discussed with dr. shrestha and patient was instructed to contact the [place] [facility]. due to uncontrolled pain, continued erythema, patient needs to be re-evaluated by the surgeon. 60 mg toradol given to patient. patient verbalized understanding and voiced he will contact them today for an appointment. ICD-9 : 997.1 ICD-10 : I97.89 01/26/2018 Appointment: Vania García [address] Hospital Follow Up 01/26/2018 Appointment: Janneth Shrestha WPtel: [address] [facility] [place] [address] NO SHOW 01/06/2018 Visit Diagnosis Plan: Other [...] ICD-10 : I97.89 12/22/2017 Appointment: Vania García [facility] ACUTE ILLNESS 12/22/2017 Visit Diagnosis Plan: Unspecified [...] ICD-10 : J01.90 10/06/2017 Appointment: Vania García [address] [place] [address] ACUTE ILLNESS 10/06/2017 Patient Education: Patient Medication Summary Completed 10/06/2017 Appointment: Vania García [address] [place] [address] ER Follow UP 08/17/2017 Appointment: Vania García [address] [place] [address] [place] CANCELED 07/03/2017 Appointment: Janneth Shrestha WPtel: [facility] [address] canceled at 8:05 this morning. 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 ICD-9 : 729.5 ICD-10 : M79.672 11/25/2016 Visit Diagnosis Plan: Insomnia, unspecified Recommenda tions: resolved with lunesta. continue taking as prescribed. ICD-9 : 780.52 ICD-10 : G47.00 11/25/2016 Appointment: Vania García [address] [place], [place] [address] FOLLOW UP 11/25/2016 Patient Education: Patient [...] ICD-10 : L08.89 11/14/2016 Appointment: Vania García [address] ACUTE ILLNESS 11/14/2016 Patient Education: Patient Medication Summary Completed 11/14/2016 Visit Diagnosis Plan: Acute upper respiratory infectio n, unspecified Discussion: Rxs as above Continue OTC and supportive meds Encouraged smoking cessation Follow up PRN ICD-9 : 465.9 ICD-10 : J06.9 04/02/2016 Appointment: Ester Grande [address] ACUTE ILLNESS 04/02/2016 Patient Education: Patient Medication Summary Completed 04/02/2016 Visit Plan: Rxs as above Supportive care reviewed Follow up PRN 11/29/2015 Appointment: Ester Grande [address] [place] [address] 11/27 confirmed~ ACUTE ILLNESS 11/29/2015 Patient Education: [...] use for pain 06/27/2015 Appointment: Ester Grande [address] [place] [address] 06/25 [facility] 06/26 phone not on~ FOLLOW UP 06/27/2015 Patient Education: Patient Medication Summary Completed 06/27/2015 Care Plan: X-RAY EXAM RIBS UNI 2 VIEWS L OINC : 54067-3 Pending 06/27/2015 Referral: Héctor Woodard WPtel: [address] [facility]66[facility] 05/29 Scheduled with [facility] Appointment Re quested 06/26/2015 Referral: Cameron Khanna WPtel: [address] [address] [place] Referral Initiated 06/11/2015 Referral: Marco Antonio Green WPtel: [address] [facility] 05/30/15 Needs to be there at pre op time per ~sl Initiated 06/04/2015 Visit Plan: Will get all necessary refer rals set up - CTS, Uro and G/S Swallow study and routine labs ordered Will further investigate left leg pain with EMG if not cardio related 05/24/2015 Appointment: Ester Grande [address] NEW PATIENT 05/24/2015 Patient Education: Patient Medication Summary Completed 05/24/2015 Care Plan: Referral Order SNOMED-CT : 30 [id number] Pending 05/24/2015 Care Plan: Referral Order SNOMED-CT : 30 1505792 Pending 05/24/2015 Care Plan: Referral Order SNOMED-CT : 30 5373021 Pending 05/24/2015 Referral: Sudheer Gann WPtel: [address] [address] [place] Referral Appointment Requested Referral: Alfonzo Andujar WPtel: [address] [address] [place] Referral Initiated Referral: Cameron Khanna WPtel: [address] [address] [place] Referral Appointment Requested Referral: Brianna Rose WPtel: [address] [address] [place] Referral Initiated Referral: Héctor Woodard WPtel: [address] 05/24/15 Vets office suggested he see another card. ~sl Initiated Referral: Alfonzo Andujar WPtel: [address] [address] [place] Referral Appointment Requested Referral: Marco Antonio Green WPtel: [address] [id number] [place] Referral Appointment Requested Instructions Comment . [...]
--- OUTSIDE RECORDS SUMMARY | 2019-08-06 10:28 | XMS REPORT | CCD ---
Author Author [place] Organization JANNETH SHRESTHA DO [facility] Address [address] [place] [address] Phone Unavailable Care Team Providers Care Dispatcher Radio Name Role Phone Janneth Shrestha D.O., PP Unavailable CCM Unavailable Summary Purpose Interface Exchange Insurance Providers Payer name Policy type / Coverage type Covered green party ID Effective Begin Date Effective End Date Blue Cross Blue Shield Blue Cross/Blue Shield [id number] Unknown Family History Family History data not found Social History Social History Element Codes Description Effective Dates Marital status Unknown 05/24/2015 Number of children Unknown 2 05/24/2015 Employment Unknown Currently employed 05/24/[address]: [id number] 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 [...] Fill Instructions Plavix 75 mg tablet RxNorm: 677709 TAKE ONE TABLET BY MOUTH DAILY 0 04/25/2019 No Stop Date Active Xarelto 20 mg tablet RxNorm: 0583795 1 Tablet(s) Oral QD 04/25/2019 No Stop Date Active amiodarone 200 mg tablet RxNorm: 613797 1 Tablet(s) Oral QD No Stop Date Active metformin ER 500 mg 24 hr tablet,extended release RxNorm: 18 33569 1 Tablet(s) Oral two times a day 04/25/2019 07/24/2019 Active prednisone 20 mg tablet RxNorm: 263615 1 Tablet(s) Oral two jn es a day 04/25/2019 05/02/2019 Active aspirin 81 mg tablet,delayed release RxNorm: 078023 1 Tablet(s) Oral QD 04/11/2019 No Stop Date Active pantoprazole 40 mg tablet,delayed release RxNorm: 844422 1 Tabl et(s) Oral QAM 04/11/2019 No Stop Date Active Vitamin C 1,000 mg tablet RxNorm: 192348 1 Tablet(s) Oral QD 2019 No Stop Date Active metoprolol succinate ER 50 mg tablet,extended release 24 hr RxNorm: 857033 1 Tablet(s) Oral QD replaces 25mg dose 04/11/2019 07/10/2019 Active Xarelto 15 mg tablet RxNorm: 0806941 1 Tablet(s) Oral QD 04/11/2019 0 04/24/2019 Inactive metformin ER 500 mg 24 hr tablet,extended release RxNorm: 18 53865 1 Tablet(s) Oral QD 04/11/2019 04/24/2019 Inactive cephalexin 500 mg capsule RxNorm: 127841 1 Capsule(s) Oral thre e times a day 04/11/2019 04/18/2019 Inactive cyclobenzaprine 10 mg tablet RxNorm: 713266 TAKE ONE TA BLET BY MOUTH EVERY NIGHT AT BEDTIME NEEDED 03/11/2019 No Stop Date Active mupirocin 2 % topical ointment RxNorm: 887292 Applicati on Topical two times a day 03/01/2019 04/10/2019 Inactive metoprolol succinate ER 25 mg tablet,extended release 24 hr RxNorm: 683534 1 Tablet(s) Oral QD 03/01/2019 04/24/2019 Inactive Bactrim DS 800 mg-160 mg tablet RxNorm: 300951 1 Tablet(s) Oral two times a day 03/01/2019 03/11/2019 Inactive omeprazole 40 mg capsule,delayed release RxNorm: 827743 TAKE ONE CAPSULE BY MOUTH EVERY NIGHT AT BEDTIME FOR REFLUX 01/10/2019 No Stop Date Active cyclobenzaprine 10 mg tablet RxNorm: 414491 TAKE ONE TA BLET BY MOUTH EVERY NIGHT AT BEDTIME NEEDED 01/10/2019 03/10/2019 Inactive Plavix 75 mg tablet RxNorm: 796570 TAKE ONE TABLET BY MOUTH DAILY 1 03/12/2018 04/24/2019 Inactive tramadol 50 mg tablet RxNorm: 454219 1 Tablet(s) Oral f our times a day as needed 01/03/2019 01/03/2019 Inactive doxycycline monohydrate 100 mg capsule RxNorm: 3497370 1 Capsule(s) Oral two times a day 11/22/2018 12/13/2018 Inactive prednisone 20 mg tablet RxNorm: 247358 1 Tablet(s) Oral two jn es a day 11/22/2018 11/29/2018 Inactive Levaquin 750 mg tablet RxNorm: 932011 Tablet(s) Oral 11/18/201802/28 Inactive prednisone 20 mg tablet RxNorm: 823555 1 Tablet(s) Oral two jn es a day 11/18/2018 11/21/2018 Inactive tramadol 50 mg tablet RxNorm: 370581 Tablet(s) Oral 11/18/20182018 Inactive doxycycline monohydrate 100 mg capsule RxNorm: 6041907 1 Capsule(s) Oral two times a day 11/18/2018 11/21/2018 Inactive Plavix 75 mg tablet RxNorm: 093273 TAKE ONE TABLET BY MOUTH DAILY 0 11/10/2018 01/08/2019 Inactive clindamycin HCl 300 mg capsule RxNorm: 638362 1 Capsule (s) Oral three times a day 11/09/2018 11/19/2018 Inactive Keflex 500 mg capsule RxNorm: 006638 1 Capsule(s) PO BID 10/13/2018 0 10/22/2018 Inactive Medrol (Brenden) 4 mg tablets in a dose pack RxNorm: 581027 Tablet(s) take as directed PO 09/23/2018 10/12/2018 Inactive omeprazole 40 mg capsule,delayed release RxNorm: 482701 1 Capsule(s) PO QHS for reflux 09/06/2018 11/04/2018 Inactive cyclobenzaprine 10 mg tablet RxNorm: 034150 1 Tablet(s) PO QHS as needed 07/15/2018 10/12/2018 Inactive Diflucan 150 mg tablet RxNorm: 935282 1 Tablet(s) PO Q72H 07/15/2018 09/05/2018 Inactive nystatin 100,000 unit/gram topical cream RxNorm: 308591 1 Gram( s) TOP BID 07/15/2018 09/05/2018 Inactive Plavix 75 mg tablet RxNorm: 418237 1 Tablet(s) PO QD 07/15/201810/12 Inactive cyclobenzaprine 10 mg tablet RxNorm: 847440 1 Tablet(s) PO QHS as needed 06/10/2018 06/09/2018 Inactive cyclobenzaprine 10 mg tablet RxNorm: 815918 TAKE ONE TA BLET BY MOUTH EVERY NIGHT AT BEDTIME NEEDED 05/10/2018 06/10/2018 Inactive mupirocin 2 % topical ointment RxNorm: 718756 1 Application TOP BID 2018 05/25/2018 Inactive 22 gram cyclobenzaprine 10 mg tablet RxNorm: 626335 1 Tablet(s) PO QHS as needed 04/14/2018 06/09/2018 Inactive doxycycline hyclate 100 mg tablet RxNorm: 7101380 1 Tablet(s) PO BI D 04/14/2018 04/23/2018 Inactive cyclobenzaprine 10 mg tablet RxNorm: 557189 1 Tablet(s) PO QHS as needed 04/07/2018 04/13/2018 Inactive Bactrim DS 800 mg-160 mg tablet RxNorm: 655263 1 Tablet(s) PO BID 0 03/18/2018 03/27/2018 Inactive cyclobenzaprine 10 mg tablet RxNorm: 039790 1 Tablet(s) PO QHS as needed 03/18/2018 04/06/2018 Inactive triamcinolone acetonide 0.1 % topical cream RxNorm: 9783571 APPLY TO AFFECTED AREA(S) TWO TIMES A DAY 02/03/2018 02/12/2018 Inactive triamcinolone acetonide 0.1 % topical cream RxNorm: 2121678 1 Application TOP BID 01/26/2018 02/02/2018 Inactive Medrol (Brenden) 4 mg tablets in a dose pack RxNorm: 224817 TAKE BY MOUTH INSTRUCTED - PER PACKAGE INSTRUCTIONS 12/11/2017 12/16/2017 Inactive Medrol (Brenden) 4 mg tablets in a dose pack RxNorm: 179941 Tablet(s) P O 10/06/2017 12/10/2017 Inactive Lunesta 3 mg tablet RxNorm: 590877 1 Tablet(s) PO QHS 11/25/201608/2016 Inactive Lunesta 3 mg tablet RxNorm: 917136 1 Tablet(s) PO QHS 11/14/201610/2016 Inactive Bactrim DS 800 mg-160 mg tablet RxNorm: 592517 1 Tablet(s) PO BID 0 11/14/2016 11/23/2016 Inactive Epi E-Z Pen 0.3 mg/0.3 mL injection, auto-injector RxNorm: 1 546017 Milliliter(s) IM Use as Directed 06/25/2016 09/05/2018 Inactive amoxicillin 875 mg tablet RxNorm: 825929 1 Tablet(s) PO BID 017 04/11/2016 Inactive prednisone 20 mg tablet RxNorm: 284472 1 Tablet(s) PO BID 04/02/2016 04/06/2016 Inactive azithromycin 250 mg tablet RxNorm: 330746 2 Tablet(s) P O on day one then 1 tab on days 2-5 11/29/2015 11/28/2015 Inactive Medrol (Brenden) 4 mg tablets in a dose pack RxNorm: 288643 Take as directed 11/29/2015 11/13/2016 Inactive meloxicam 15 mg tablet RxNorm: 861423 1 Tablet(s) PO QD 07/02/2015 Inactive Chantix Starting Month Box 0.5 mg (11)-1 mg (42) table ts in dose pack RxNorm: 466525 Tablet(s) PO As Directed 06/20/2015 07/10/2015 Inactive omeprazole 40 mg capsule,delayed release RxNorm: 014475 1 Capsu le(s) PO QD 05/31/2015 11/13/2016 Inactive omeprazole 40 mg capsule,delayed release RxNorm: 132523 1 Capsu le(s) PO QD 05/31/2015 05/30/2015 Inactive Lactobacillus acidophilus-Bifidobacterium longum oral RxNorm: oral No Start Date Active Multivitamin And Mineral oral RxNorm: oral No Start Date Active Wellbutrin SR 150 mg tablet,sustained-release RxNorm: 532535 1 Tablet(s) PO BID No Start Date 11/13/2016 Inactive gabapentin 100 mg capsule RxNorm: 566129 1 Capsule(s) PO TID No Sta rt Date 03/17/2018 Inactive Chantix Starting Month Box 0.5 mg (11)-1 mg (42) table ts in dose pack RxNorm: 878222 Tablet(s) PO As Directed No Start Date 06/19/2015 Inactive Eliquis 5 mg tablet RxNorm: 8097498 1 Tablet(s) PO BID No Start Date 03/17/2018 Inactive aspirin 325 mg tablet RxNorm: 149612 1 Tablet(s) PO QD No Start Date 11/13/2016 Inactive clindamycin HCl 300 mg capsule RxNorm: 877965 2 Capsule(s) PO Q8H N o Start Date 03/17/2018 Inactive Fish Oil 1,000 mg (120 mg-180 mg) capsule RxNorm: 1 Caps ule(s) PO QD No Start Date 09/05/2018 Inactive aspirin 81 mg tablet RxNorm: 317014 1 Tablet(s) PO QD No Start Date 1 03/28/2017 Inactive Fish Oil 1,000 mg capsule RxNorm: 1 Capsule(s) PO QD No Start Date 11/13/2016 Inactive Baby Aspirin 81 mg chewable tablet RxNorm: 558287 1 Tablet(s) P O BID No Start Date 02/02/2017 Inactive Xarelto 10 mg tablet RxNorm: 5365890 1 Tablet(s) PO QD No Start Date 01/25/2018 Inactive tramadol 50 mg tablet RxNorm: 975252 1-2 Tablet(s) PO Q6H No Start Date 03/17/2018 Inactive meloxicam 15 mg tablet RxNorm: 482304 1 Tablet(s) PO QD No Start Da te 07/01/2015 Inactive Epi E-Z Pen 0.3 mg/0.3 mL injection, auto-injector RxNorm: 1 696813 Milliliter(s) IM Use as Directed No Start Date 06/24/2016 Inactive Plavix 75 mg tablet RxNorm: 134026 1 Tablet(s) PO QD No Start Date Inactive Medication Administered No Medication Administered data Immunizations No Immunization data Results Observation Observation Code Item Item Code Result Date S vice Location COMPREHENSIVE METABOLIC 55694 AST 25 U/L 2018 Unknown COMPREHENSIVE METABOLIC 15764 ALT 28 U/L 2018 Unknown COMPREHENSIVE METABOLIC 32340 BUN 13 mg/dL 2018 Unknown COMPREHENSIVE METABOLIC 15639 ALBUMIN 4.2 g/dL 2018 Unknown COMPREHENSIVE METABOLIC 86372 CHLORIDE 104 mmol/L 11/09 Unknown COMPREHENSIVE METABOLIC 29720 Bili Total 0.5 mg/dL 11/09 Unknown COMPREHENSIVE METABOLIC 11893 ALK PHOS 72 U/L 2018 Unknown COMPREHENSIVE METABOLIC 48958 SODIUM 139 mmol/L 11/09 Unknown COMPREHENSIVE METABOLIC 74347 CREATININE 0.98 mg/dL 10/18 Unknown COMPREHENSIVE METABOLIC 64641 CALCIUM 9.1 mg/dL 2018 Unknown COMPREHENSIVE METABOLIC 92263 POTASSIUM 3.7 mmol/L 11/09 Unknown COMPREHENSIVE METABOLIC 25648 Total Protein 7.2 g/dL Unknown COMPREHENSIVE METABOLIC 21514 Glucose 137 mg/dL 2018 Unknown COMPREHENSIVE METABOLIC 46590 Bicarbonate 24 mmol/L 10/18 Unknown COMPREHENSIVE METABOLIC 89541 AGAP 11 mmol/L 2018 Unknown COMPLETE BLOOD COUNT [id number] WBC 4.6 10e9/L 11/10/19 19 Unknown COMPLETE BLOOD COUNT [id number] RBC 4.88 10e12/L 2018 Unknown COMPLETE BLOOD COUNT [id number] HEMOGLOBIN 14.7 g/dL 11/10/19 19 Unknown COMPLETE BLOOD COUNT [id number] HEMATOCRIT 43.7 % 11/10/19 19 Unknown COMPLETE BLOOD COUNT [id number] MCV 89.5 fL 9 Unknown COMPLETE BLOOD COUNT [id number] MCH 30.1 pg 9 Unknown COMPLETE BLOOD COUNT 6812830 MCHC 33.6 g/dL 9 Unknown COMPLETE BLOOD COUNT [id number] PLATELET COUNT 179 10e9/L Unknown COMPLETE BLOOD COUNT 8754005 Mean Plt Volume 11.6 fL Unknown COMPLETE BLOOD COUNT 6828790 Neut Auto 55.5 % 9 Unknown COMPLETE BLOOD COUNT 9952020 Lymph Auto 28.7 % 09/24/20 19 Unknown COMPLETE BLOOD COUNT [id number] [place] Auto 7.9 % 9 Unknown COMPLETE BLOOD COUNT 3887967 RDW 13.2 % 9 Unknown COMPLETE BLOOD COUNT 6468988 Eos Auto 7.7 % 9 Unknown COMPLETE BLOOD COUNT 9340961 Baso Auto 0.2 % 9 Unknown COMPLETE BLOOD COUNT [id number] Neutrophil Abs 2.55 10e9/L Unknown COMPLETE BLOOD COUNT 7270922 Lymphocyte Abs 1.32 10e9/L Unknown COMPLETE BLOOD COUNT [id number] Monocyte Abs 0.36 10e9/L 10/18 Unknown COMPLETE BLOOD COUNT [id number] Eosinophil Abs 0.35 10e9/L Unknown COMPLETE BLOOD COUNT [id number] RDW-SD 42.2 fL 9 Unknown COMPLETE BLOOD COUNT [id number] Basophil Abs 0.01 10e9/L 10/18 Unknown LIPID GROUP 90674 Cholesterol 205 mg/dL 11/09/2018 Unkno wn LIPID GROUP 68086 Triglyceride 268 mg/dL 11/09/2018 Unkn own LIPID GROUP 24146 HDL CHOLESTEROL 35 mg/dL 11/09/2018 U nknown LIPID GROUP 62415 Chol/HDL Ratio 5.86 ratio 11/09/2018 U nknown LIPID GROUP 83752 NON-HDL Chol 170 mg/dL 11/09/2018 Unkn own LIPID GROUP 20429 LDL Cholesterol 116 mg/dL 11/09/2018 U nknown PT [id number] PT 12.7 Seconds 11/09/2018 Unknow n PT [id number] INR 0.9 11/09/2018 Unknown GFR CALC 0269958 GFR Non Afr Amr >60 mL/min 11/09/2018 Un known GFR CALC 2583132 GFR Afr Amr >60 mL/min 11/09/2018 Unknow n ACT PARTIAL THRMBOPLASTIN TIME 76603 PTT 34.0 [place] nds 11/09/2018 Unknown LIPID GROUP 50125 Cholesterol 186 mg/dL 2018 Unkno wn LIPID GROUP 69364 Triglyceride 229 mg/dL 2018 Unkn own LIPID GROUP 07996 HDL CHOLESTEROL 36 mg/dL 2018 U nknown LIPID GROUP 08343 Chol/HDL Ratio 5.17 ratio 2018 U nknown LIPID GROUP 80643 NON-HDL Chol 150 mg/dL 2018 Unkn own LIPID GROUP 96867 LDL Cholesterol 104 mg/dL 2018 U nknown GFR CALC [id number] GFR Non Afr Amr >60 mL/min 2018 Un known GFR CALC 1619470 GFR Afr Amr >60 mL/min 2018 Unknow n COMPREHENSIVE METABOLIC 46058 AST 23 U/L 2018 Unknown COMPREHENSIVE METABOLIC 76221 ALT 22 U/L 2018 Unknown COMPREHENSIVE METABOLIC 73385 BUN 15 mg/dL 2018 Unknown COMPREHENSIVE METABOLIC 95172 ALBUMIN 4.1 g/dL 2018 Unknown COMPREHENSIVE METABOLIC 27253 CHLORIDE 106 mmol/L 05/06 Unknown COMPREHENSIVE METABOLIC 84103 Bili Total 0.6 mg/dL 05/06 Unknown COMPREHENSIVE METABOLIC 21034 ALK PHOS 61 U/L 2018 Unknown COMPREHENSIVE METABOLIC 96356 SODIUM 141 mmol/L 05/06 Unknown COMPREHENSIVE METABOLIC 02337 CREATININE 0.91 mg/dL 04/17 Unknown COMPREHENSIVE METABOLIC 46110 CALCIUM 9.2 mg/dL 2018 Unknown COMPREHENSIVE METABOLIC 33166 POTASSIUM 3.8 mmol/L 05/06 Unknown COMPREHENSIVE METABOLIC 58614 Total Protein 7.0 g/dL Unknown COMPREHENSIVE METABOLIC 14129 Glucose 97 mg/dL 2018 Unknown COMPREHENSIVE METABOLIC 72793 Bicarbonate 28 mmol/L 04/17 Unknown COMPREHENSIVE METABOLIC 95406 AGAP 7 mmol/L 2018 Unknown THYROID STIMULATING HORMONE 13495 TSH 2.094 uIU/mL 2018 Unknown COMPLETE BLOOD COUNT 0515162 WBC 5.5 10e9/L 05/07/19 19 Unknown COMPLETE BLOOD COUNT [id number] RBC 4.61 10e12/L 2018 Unknown COMPLETE BLOOD COUNT 8850319 HEMOGLOBIN 13.6 g/dL 05/07/19 19 Unknown COMPLETE BLOOD COUNT 7507136 HEMATOCRIT 40.0 % 05/07/19 19 Unknown COMPLETE BLOOD COUNT 1271285 MCV 86.8 fL 9 Unknown COMPLETE BLOOD COUNT 8341108 MCH 29.5 pg 9 Unknown COMPLETE BLOOD COUNT 1604342 MCHC 34.0 g/dL 9 Unknown COMPLETE BLOOD COUNT 8479580 PLATELET COUNT 197 10e9/L Unknown COMPLETE BLOOD COUNT 7072848 Mean Plt Volume 10.8 fL Unknown COMPLETE BLOOD COUNT 9228923 Neut Auto 49.6 % 9 Unknown COMPLETE BLOOD COUNT 8067676 Lymph Auto 36.8 % 05/07/19 19 Unknown COMPLETE BLOOD COUNT 9781856 [place] Auto 8.1 % 9 Unknown COMPLETE BLOOD COUNT 3319204 RDW 15.3 % 9 Unknown COMPLETE BLOOD COUNT 8364829 Eos Auto 5.3 % 9 Unknown COMPLETE BLOOD COUNT 3249458 Baso Auto 0.2 % 9 Unknown COMPLETE BLOOD COUNT 4048285 Neutrophil Abs 2.73 10e9/L Unknown COMPLETE BLOOD COUNT 7039951 Lymphocyte Abs 2.02 10e9/L Unknown COMPLETE BLOOD COUNT 2281221 Monocyte Abs 0.45 10e9/L 04/17 Unknown COMPLETE BLOOD COUNT 0828820 Eosinophil Abs 0.29 10e9/L Unknown COMPLETE BLOOD COUNT 7735495 RDW-SD 47.9 fL 9 Unknown COMPLETE BLOOD COUNT [id number] Basophil Abs 0.01 10e9/L 04/17 Unknown Procedures Procedure Codes Date CEFTRIAXONE SODIUM INJECTION CPT-4: J0696 11/09/2018 THER/PROPH/DIAG INJ SC/IM CPT-4: 89274 11/09/2018 ROUTINE VENIPUNCTURE CPT-4: 71589 11/09/2018 COMPREHEN METABOLIC PANEL CPT-4: 60261 11/09/2018 COMPLETE CBC W/AUTO DIFF WBC CPT-4: 70143 11/09/2018 LIPID PANEL CPT-4: 01307 11/09/2018 PROTHROMBIN TIME CPT-4: 77011 11/09/2018 THROMBOPLASTIN TIME PARTIAL CPT-4: 60070 11/09/2018 THER/PROPH/DIAG INJ SC/IM CPT-4: 83543 09/23/2018 KETOROLAC TROMETHAMINE INJ CPT-4: J1885 09/23/2018 ROUTINE VENIPUNCTURE CPT-4: 13391 2018 ASSAY THYROID STIM HORMONE CPT-4: 00221 2018 COMPREHEN METABOLIC PANEL CPT-4: 86566 2018 COMPLETE CBC W/AUTO DIFF WBC CPT-4: 35297 2018 LIPID PANEL CPT-4: 55938 2018 CEFTRIAXONE SODIUM INJECTION CPT-4: J0696 04/14/2018 THER/PROPH/DIAG INJ SC/IM CPT-4: 03892 04/14/2018 CEFTRIAXONE SODIUM INJECTION CPT-4: J0696 03/18/2018 THER/PROPH/DIAG INJ SC/IM CPT-4: 23968 03/18/2018 THER/PROPH/DIAG INJ SC/IM CPT-4: 16137 01/26/2018 KETOROLAC TROMETHAMINE INJ CPT-4: J1885 01/26/2018 CEFTRIAXONE SODIUM INJECTION CPT-4: J0696 12/22/2017 THER/PROPH/DIAG INJ SC/IM CPT-4: 92331 12/22/2017 ROUTINE VENIPUNCTURE CPT-4: 56041 11/14/2016 COMPLETE CBC W/AUTO DIFF WBC CPT-4: 19037 11/14/2016 PT/PTT CPT-4: 2436520 11/14/2016 Vital Signs Date Vital 04/25/2019 Blood [...] 1: 134/82 Code: 8480-6 BMI: 23.9 Code: 16723-0 Heart Rate 1: 100 bpm Height: 6'4" [...] 1: 138/70 Code: 8480-6 BMI: 22.6 Code: 53524-8 Heart Rate 1: 97 bpm Height: 6'4" [...] 1: 142/80 Code: 8480-6 BMI: 20.9 Code: 26998-3 Heart Rate 1: 108 bpm Height: 6'4" Respiratory Rate: 20 bpm SpO2: 97% Tempera ture: 36.6 (C) / 97.9 (F) Weight: 172 lbs 01/26/2018 Blood Pressure 1: 130/82 Code: 8480-6 Heart Rate 1: 98 bpm Respiratory Rate: 18 bpm SpO2: 99% Temperature: 35.7 (C) / 96.3 (F) We ight: 175 lbs 12/22/2017 Blood Pressure 1: 124/68 Code: 8480-6 BMI: 22.3 Code: 48135-9 Heart Rate 1: 100 bpm Height: 6'4" Respiratory Rate: 20 bpm SpO2: 98% Tempera ture: 36.7 (C) / 98.0 (F) Weight: 183 lbs 10/06/2017 Blood Pressure 1: 130/86 Code: 8480-6 BMI: 21.1 Code: 27713-4 Heart Rate 1: 92 bpm Height: 6'4" Respiratory Rate: 18 bpm SpO2: 98% Tempera ture: 36.9 (C) / 98.5 (F) Weight: 173 lbs 02/03/2017 Blood Pressure 1: 144/92 Code: 8480-6 BMI: 20.8 Code: 90267-0 Heart Rate 1: 88 bpm Height: 6'4" Respiratory Rate: 20 bpm SpO2: 97% Tempera ture: 36.7 (C) / 98.1 (F) Weight: 171 lbs 11/25/2016 Blood Pressure 1: 126/84 Code: 8480-6 Heart Rate 1: 76 bpm Respiratory Rate: 20 bpm SpO2: 96% Temperature: 36.9 (C) / 98.4 (F) We ight: 170 lbs 11/14/2016 Blood Pressure 1: 126/82 Code: 8480-6 BMI: 20.7 Code: 45821-1 Heart Rate 1: 86 bpm Height: 6'4" Respiratory Rate: 18 bpm SpO2: 96% Tempera ture: 35.8 (C) / 96.5 (F) Weight: 170 lbs 04/02/2016 Blood Pressure 1: 124/78 Code: 8480-6 Heart Rate 1: 88 bpm Respiratory Rate: 24 bpm SpO2: 97% Temperature: 36.1 (C) / 97.0 (F) We ight: 161 lbs 11/29/2015 Blood Pressure 1: 124/68 Code: 8480-6 BMI: 19.2 Code: 50302-1 Heart Rate 1: 94 bpm Height: 6'4" Respiratory Rate: 18 bpm SpO2: 97% Tempera ture: 36.1 (C) / 97.0 (F) Weight: 158 lbs 06/27/2015 Blood Pressure 1: 128/78 Code: 8480-6 BMI: 18.7 Code: 54878-9 Heart Rate 1: 72 bpm Height: 6'4" Respiratory Rate: 22 bpm SpO2: 98% Tempera ture: 35.9 (C) / 96.6 (F) Weight: 154 lbs 05/24/2015 Blood Pressure 1: 112/78 Code: 8480-6 BMI: 19.7 Code: 31502-8 Heart Rate 1: 78 bpm Height: 6'4" [...] care Encounters Encounter Performer Location Codes Date ([id number]) OFFICE/OUTPATIENT VISIT EST Diagnosis: DM w/o complication type II, uncontrolled[ICD10: E11.65] Diagnosis: Allergic dermatitis[ICD10: L23.9] Diagnosis: Right leg DVT[ICD10: I82.401] Diagnosis: Paroxysmal atrial fibrillation[ICD10: I48.0] Diagnosis: Right calf pain[ICD10: M79.661] Janneth SHRESTHA DO [facility] CPT-4: 32680 04/25/2019 ([id number]) OFFICE/OUTPATIENT VISIT EST Diagnosis: DM w/o complication type II, uncontrolled[ICD10: E11.65] Diagnosis: 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, implant, or graft[ICD10: T85.818A] Diagnosis: Essential hypertension[ICD10: I10] Jannethrodrigo SHRESTHA [facility] CPT-4: 48904 04/11/2019 ([id number]) OFFICE/OUTPATIENT VISIT EST Diagnosis: Sinus tachycardia[ICD10: R00.0] Diagnosis: Folliculitis[ICD10: L73.9] Janneth HARDY [facility] CPT-4: 94637 03/01/2019 ([id number]) OFFICE/OUTPATIENT VISIT EST Diagnosis: Cellulitis of left lower limb[ICD10: L03.116] Diagnosis: Tendinitis of left peroneus longus tendon[ICD10: M76.72] Janneth SHRESTHA [facility] CPT-4: 28259 11/18/2018 ([id number]) OFFICE/OUTPATIENT VISIT EST Diagnosis: Cellulitis of left foot[ICD10: L03.116] Diagnosis: Spontaneous ecchymoses[ICD10: R23.3] Diagnosis: Venous insufficiency (chronic) (peripheral)[ICD10: I87.2] Diagnosis: Mixed hyperlipidemia[ICD10: E78.2] Vania SHRESTHA [employer] [facility] CPT-4: 15826 11/09/2018 ([id number]) OFFICE/OUTPATIENT VISIT EST Diagnosis: Venous insufficiency (chronic) (peripheral)[ICD10: I87.2] Diagnosis: Cellulitis of left lower limb[ICD10: L03.116] Diagnosis: Pain in right foot[ICD10: M79.671] Vania RAY S. HENRIETTA [employer] [facility] CPT-4: 79128 10/13/2018 ([id number]) OFFICE/OUTPATIENT VISIT EST Diagnosis: Low back pain[ICD10: M54.5] Vania WARD S. O RENDER [facility] CPT-4: 86667 09/23/2018 ([id number]) OFFICE/OUTPATIENT VISIT EST Diagnosis: Gastro-esophageal reflux disease without esophagitis[ICD10: K21.9] Diagnosis: Dysphagia, pharyngoesophageal phase[ICD10: R13.14] Janneth SHRESTHA [facility] CPT-4: 86452 09/06/2018 ([id number]) OFFICE/OUTPATIENT VISIT EST Diagnosis: Tinea corporis[ICD10: B35.4] Vania SHRESTHA [employer] [facility] CPT-4: 29593 07/15/2018 ([id number]) OFFICE/OUTPATIENT VISIT EST Diagnosis: Cellulitis of left toe[ICD10: L03.032] Diagnosis: Mixed hyperlipidemia[ICD10: E78.2] Mandy SHRESTHA [employer] [facility] CPT-4: 16398 2018 OFFICE/OUTPATIENT VISIT EST Diagnosis: Cellulitis of left toe[ICD10: L03.032] Diagnosis: Unspecified disturbances of skin sensation[ICD10: R20.9] Mandy SHRESTHA [employer] [facility] CPT-4: 37169 04/14/2018 ([id number]) OFFICE/OUTPATIENT VISIT EST Diagnosis: Cellulitis of left toe[ICD10: L03.032] Diagnosis: Insomnia, unspecified[ICD10: G47.00] Vania SHRESTHA [employer] [facility] CPT-4: 03734 03/18/2018 ([id number]) OFFICE/OUTPATIENT VISIT EST Diagnosis: Other postprocedural complications and disorders of the circulatory system, not elsewhere classified[ICD10: I97.89] Diagnosis: Rash and other nonspecific skin eruption[ICD10: R21] Diagnosis: Pain in right leg[ICD10: M79.604] Vania SHRESTHA [employer] [facility] CPT-4: 51418 01/26/2018 ([id number]) OFFICE/OUTPATIENT VISIT EST Diagnosis: Other postprocedural complications and disorders of the circulatory system, not elsewhere classified[ICD10: I97.89] Diagnosis: Cellulitis of right lower limb[ICD10: L03.115] Vania SHRESTHA [employer] [facility] CPT-4: 58337 12/22/2017 ([id number]) OFFICE/OUTPATIENT VISIT EST Diagnosis: Acute sinusitis, unspecified[ICD10: J01.90] Diagnosis: Unspecified disturbances of skin sensation[ICD10: R20.9] Vania SHRESTHA [employer] [facility] CPT-4: 04345 10/06/2017 ([id number]) OFFICE/OUTPATIENT VISIT EST Diagnosis: Primary insomnia[ICD10: F51.01] Diagnosis: Pain in left shoulder[ICD10: M25.512] Diagnosis: Poisoning by other parasympatholytics [anticholinergics and antimuscarinics] and spasmolytics, accidental (unintentional), sequela[ICD10: T44.3X1S] Janneth Henrietta JANNETH Liza SHRESTHA [facility] CPT-4: 65511 02/03/2017 OFFICE/OUTPATIENT VISIT EST Diagnosis: Insomnia, unspecified[ICD10: G47.00] Diagnosis: Constipation, unspecified[ICD10: K59.00] Diagnosis: Spontaneous ecchymoses[ICD10: R23.3] Diagnosis: Pain in left foot[ICD10: M79.672] Vania SHRESTHA [facility] CPT-4: 16004 11/25/2016 OFFICE/OUTPATIENT VISIT EST Diagnosis: Insomnia, unspecified[ICD10: G47.00] Diagnosis: Constipation, unspecified[ICD10: K59.00] Diagnosis: Spontaneous ecchymoses[ICD10: R23.3] Diagnosis: Other specified local infections of the skin and subcutaneous tissue[ICD10: L08.89] Vania SHRESTHA [facility] CPT-4: 99 213 11/14/2016 ([id number]) OFFICE/OUTPATIENT VISIT EST Diagnosis: Acute upper respiratory infection, unspecified[ICD10: J06.9] Ester NORWOODQUELINE Liza SHRESTHA [facility] CPT-4: 92036 04/02/2016 ([id number]) OFFICE/OUTPATIENT VISIT EST Diagnosis: Acute upper respiratory infection, unspecified[ICD10: J06.9] Ester NORWOODQUELINE Liza [facility] CPT-4: 68033 11/29/2015 ([id number]) OFFICE/OUTPATIENT VISIT EST Diagnosis: Pain in thoracic spine[ICD10: M54.6] Diagnosis: Paresthesia of skin[ICD10: R20.2] Diagnosis: Dysphagia, unspecified[ICD10: R13.10] Estersimin KUHN [facility] CPT-4: 88545 06/27/2015 ([id number]) OFFICE/OUTPATIENT VISIT NEW Diagnosis: Pain in left leg[ICD10: M79.605] Diagnosis: Male erectile dysfunction, unspecified[ICD10: N52.9] Diagnosis: Dysphagia, unspecified[ICD10: R13.10] Ester Harjinder THERON KUHN [facility] CPT-4: 66869 05/24/2015 Plan of Care Planned Activity Notes [...] Completed 04/25/2019 Patient Education: prednisone- [employer] Coupon [id number] https://www.[employer]/resources/getResource/61/9mb36ki1-a8za-9l42-se Completed 04/25/2019 Visit Diagnosis Plan: DM w/o [...] : T85.818A 04/11/2019 Appointment: Janneth Shrestha WPtel: [address] [place] [address] ACUTE ILLNESS 04/11/2019 Patient Education: metoprolol succinate- Optimize[employer] Co upon [id number] https://www.[employer]/resources/getResource/61/fv795230-29hy-5g37-70 Completed 04/11/2019 Patient Education: Metformin Patient Savings Message Alert Completed 04/11/2019 Patient Education: cephalexin- [employer] Coupon [id number] https://www.[employer]/resources/getResource/61/1qbx5896-7z8s-5852-ds Completed 04/11/2019 Visit Diagnosis Plan: Folliculitis Discussion: Bactrim and topical bactroban ICD-9 : 704.8 ICD-10 : L73.9 03/01/2019 Visit Diagnosis Plan: Sinus tachycardia Discussion: St art low dose metoprolol ER 25mg daily Monitor pulse Sees Cardiology next month ICD-9 : 427.89 ICD-10 : R00.0 03/01/2019 Appointment: Janneth Shrestha WPtel: [address] [place] [address] [place] FOLLOW UP 03/01/2019 Patient Education: mupirocin- [employer] Coupon [id number] https://www.[employer]/resources/getResource/61/pa488dy7-90qw-109r-ai Completed 03/01/2019 Appointment: Janneth Shrestha WPtel: [address] [place] [address] [place] CANCELED 12/20/2018 Visit Diagnosis Plan: Cellulitis [...] : M76.72 11/18/2018 [facility] [place] [facility] 11/18/2018 Appointment: Janneth Shrestha WPtel[facility] [id number] [place] FOLLOW UP 11/18/2018 Patient Education: doxycycline monohydrate- [employer] Coupon [id number] https://www.[employer]sampleKILTR/resources/getResource/61/aii73157-k1t1-36u7-4c Completed 11/18/2018 Patient Education: prednisone- [employer] Coupon [id number] https://www.[employer]ILTR/resources/getResource/61/78yz8r9g-5tz2-2878-yb Completed 11/18/2018 Care Plan: Referral Order SNOMED-CT : 30 [id number] Pending 11/18/2018 Visit Diagnosis Plan: Venous insufficiency [...] evaluated in an ED whether it be [place] or wherever he's traveling. discussed the risk [...] : R23.3 11/09/2018 Appointment: Vania García [address] [place], [place] [id number] ACUTE ILLNESS 11/09/2018 Patient Education: clindamycin HCl- [employer] Coupon [id number] https://www.[employer].com/samplemd/resources/getResource/61/54nf06h3-tt96-0sz8-5q Completed 11/09/2018 Appointment: [facility]ann[facility]restha [facility]Ptel[facility] [facility] CANCELED 10/19/2018 Visit Diagnosis Plan: Pain in [...] : L03.116 10/13/2018 Appointment: Vania García 504 [facility] Patient cant pay copay till when he [...] : M54.5 09/23/2018 Appointment: [facility] [facility] 09/23/2018 Patient Education: Medrol (Bren[place])- [employer] Coupon [phone] https://www.[employer]samplemd/resources/getResource/61/vgnf611m-4436-50h7-83 Completed 09/23/2018 Visit Diagnosis Plan: Dysphagia, pharyngoesophageal ph ase Discussion: Referral for EGD ICD-9 : 787.24 ICD-10 : R13.14 09/06/2018 Visit Diagnosis Plan: Gastro-esophageal reflux disease without esophagitis Discussion: Start omeprazole ICD-9 : 530.81 ICD-10 : K21.9 09/06/2018 Appointment: Janneth Shrestha WPtel: [facility] [facility] ACUTE ILLNESS 09/06/2018 Patient Education: omeprazole- [employer] Coupon [id number] https://www.[employer]Quackenworthmd/resources/getResource/61/240ht666-56q4-765r-68 Completed 09/06/2018 Care Plan: Referral Order SNOMED-CT : 30 0350039 Pending 09/06/2018 Visit Diagnosis Plan: Tinea corporis Discussion: nysta tin to be used bid until rash gone and then an additional 2 days. diflucan every 3 days for 3 doses. keep area clean and dry with no moisturizers. call office if no improvement in 2 weeks or if worsening. ICD-9 : 110.5 ICD-10 : B35.4 07/15/2018 Appointment: [facility] [facility] 07/15/2018 Patient Education: nystatin- [employer] Coupon [id number] https://www.[employer]samplemd/resources/getResource/61/78odr085-n7ta-98yf-7d Completed 07/15/2018 Patient Education: Plavix- [employer] Coupon [id number] https://www.[employer]samplemd/resources/getResource/61/64cf8h80-t91y-21oq-23 fa-p502e3379752.pdf Completed 07/15/2018 Patient Education: cyclobenzaprine- [employer] Coupon [id number] https://www.[employer]sampleKILTR/resources/getResource/61/11153c1a-4v02-62m2-jd Completed 07/15/2018 Visit Diagnosis Plan: Cellulitis of [...] ICD-10 : L03.032 2018 Appointment: Mandy Hollins [address] [place] [address] FOLLOW UP 2018 Patient Education: mupirocin- [employer] Coupon [id number] https://www.[employer]sampleKILTR/resources/getResource/61/f4la01o0-0293-5893-7e Completed 2018 Visit Diagnosis Plan: Cellulitis of [...] ICD-10 : R20.9 04/14/2018 Appointment: Mandy Hollins [address] [place] [address] FOLLOW UP 04/14/2018 Visit Diagnosis Plan: Cellulitis [...] : G47.00 03/18/2018 Appointment: Vania García [address] [place] [id number] ACUTE [facility]LL[facility] 03/18/2018 Patient Education: cyclobenzaprine- [employer] Coupon [id number] https://www.[employer].com/samplemd/resources/getResource/61/5239r970-2sb7-164r-f4 Completed 03/18/2018 Visit Diagnosis Plan: Rash and other nonspecific skin eruption Discussion: triamcinolone ordered to be used as directed. ICD-9 : 782.1 ICD-10 : R21 01/26/2018 Visit Diagnosis Plan: Other postprocedur al complications and disorders of the circulatory system, not elsewhere classified Discussion: discussed with dr. shrestha and patient was instructed to contact the [place] [facility] de[facility]. due to uncontrolled pain, continued erythema, patient needs to be re-evaluated by the surgeon. 60 mg toradol given to patient. patient verbalized understanding and voiced he will contact them today for an appointment. ICD-9 : 997.1 ICD-10 : I97.89 01/26/2018 Appointment: Vania García 504 [facility] Hospital Follow Up 01/26/2018 Appointment: Janneth Shrestha WPtel: [address] [facility] NO SHOW 01/06/2018 Visit Diagnosis Plan: [...] ICD-10 : I97.89 12/22/2017 Appointment: Vania García [address] [place] [id number] ACUTE ILLNESS 12/22/2017 Visit Diagnosis Plan: Acute [...] ICD-10 : R20.9 10/06/2017 Appointment: Vania García [address] [place] [id number] ACUTE ILLNESS 10/06/2017 Patient Education: Patient Medication Summary Completed 10/06/2017 Appointment: Vania García [address] [place] [id number] ER Follow UP 08/17/2017 Appointment: Vania García [address] [place] [address] [place] CANCELED 07/03/2017 Appointment: Janneth Shrestha WPtel: [address] [id number] [place] canceled at 8:05 this morning. 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 ICD-9 : 729.5 ICD-10 : M79.672 11/25/2016 Visit Diagnosis Plan: Spontaneous ecchymoses Discussio n: labs wnl. instructed patient on side effects of plavix and aspirin. will continue to monitor. educated on being careful with movements to prevent injuries. ICD-9 : 782.7 ICD-10 : R23.3 11/25/2016 Appointment: Vania García [address] [place], [place] [address] FOLLOW UP 11/25/2016 Patient Education: Patient Medication [...] ICD-10 : R23.3 11/14/2016 Appointment: Vania García [address] [place] [address] ACUTE ILLNESS 11/14/2016 Patient Education: Patient Medication Summary Completed 11/14/2016 Visit Diagnosis Plan: Acute upper respiratory infectio n, unspecified Discussion: Rxs as above Continue OTC and supportive meds Encouraged smoking cessation Follow up PRN ICD-9 : 465.9 ICD-10 : J06.9 04/02/2016 Appointment: Ester Grande [address] ACUTE ILLNESS 04/02/2016 Patient Education: Patient Medication Summary Completed 04/02/2016 Visit Plan: Rxs as above Supportive care reviewed Follow up PRN 11/29/2015 Appointment: Ester Grande [address] 11/27 confirmed~sl ACUTE ILLNESS 11/29/2015 Patient [...] use for pain 06/27/2015 Appointment: [facility]inderEster [facility] 06/25 lm ~sl 06/26 phone not on~sl FOLLOW UP 06/27/2015 Patient Education: Patient Medication Summary Completed 06/27/2015 Care Plan: X-RAY EXAM RIBS UNI 2 VIEWS L OINC : 57903-0 Pending 06/27/2015 Referral: Héctor Woodard WPtel: [address] [facility] 05/29 Scheduled with sena ~sl Appointment Re quested 06/26/2015 Referral: Cameron Khanna WPtel: [facility] [place] Referral Initiated 06/11/2015 Referral: Marco Antonio Green WPtel: [address] [id number] 05/30/15 Needs to be there at pre op time per ~sl Initiated 06/04/2015 Visit Plan: Will get all necessary refer rals set up - CTS, Uro and G/S Swallow study and routine labs ordered Will further investigate left leg pain with EMG if not cardio related 05/24/2015 Appointment: HarjinderEster [address] [facility] NEW PATIENT 05/24/2015 Patient Education: Patient Medication Summary Completed 05/24/2015 Care Plan: Referral Order SNOMED-CT : 30 [id number] Pending 05/24/2015 Care Plan: Referral Order SNOMED-CT : 30 6340487 Pending 05/24/2015 Care Plan: Referral Order SNOMED-CT : 30 6849532 Pending 05/24/2015 Referral: Sudheer Gann WPtel: [address] [facility] [place] Referral Appointment Requested Referral: Alfonzo Andujar WPtel: [address] [facility] [place] Referral Initiated Referral: Cameron Khanna WPtel: [facility] [id number] [place] Referral Appointment Requested Referral: RoseBrianna WPtel: [address] [facility] [place] Referral Initiated Referral: Héctor Woodard WPtel: [address] [id number] 05/24/15 [facility] office suggested he see another card. ~sl Initiated Referral: Alfonzo Andujar WPtel: [address] [id number] [place] Referral Appointment Requested Referral: Marco Antonio Green WPtel: [address] [id number] [place] Referral Appointment Requested Instructions Comment . [...]
--- OUTSIDE RECORDS SUMMARY | 2019-08-06 10:29 | XMS REPORT | CCD ---
Author Author [place] Organization JANNETH SHRESTHA DO [facility] Address [address] [place] [address] Phone Unavailable Care Team Providers Care Architect In Training Name Role Phone Janneth Shrestha D.O., PP Unavailable CCM Unavailable Summary Purpose Interface Exchange Insurance Providers Payer name Policy type / Coverage type Covered green party ID Effective Begin Date Effective End Date Blue Cross Blue Shield Blue Cross/Blue Shield [id number] Unknown Family History Family History data not found Social History Social History Element Codes Description Effective Dates Marital status Unknown 05/24/2015 Number of children Unknown 2 05/24/2015 Employment Unknown Currently employed 05/24/[address]: [id number] 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 [...] Start Date Stop Date Status Fill Instructions aspirin 81 mg tablet,delayed release RxNorm: 980694 1 Tablet(s) Oral QD 04/11/2019 No Stop Date Active pantoprazole 40 mg tablet,delayed release RxNorm: 161403 1 Tabl et(s) Oral QAM 04/11/2019 No Stop Date Active Vitamin C 1,000 mg tablet RxNorm: 989157 1 Tablet(s) Oral QD 2019 No Stop Date Active Xarelto 15 mg tablet RxNorm: 0318487 1 Tablet(s) Oral QD 04/11/2019 No Stop Date Active metformin ER 500 mg 24 hr tablet,extended release RxNorm: 18 34214 1 Tablet(s) Oral QD 04/11/2019 07/10/2019 Active cephalexin 500 mg capsule RxNorm: 239532 1 Capsule(s) Oral thre e times a day 04/11/2019 04/18/2019 Active metoprolol succinate ER 50 mg tablet,extended release 24 hr RxNorm: 216336 1 Tablet(s) Oral QD replaces 25mg dose 04/11/2019 07/10/2019 Active cyclobenzaprine 10 mg tablet RxNorm: 238732 TAKE ONE TA BLET BY MOUTH EVERY NIGHT AT BEDTIME NEEDED 03/11/2019 No Stop Date Active metoprolol succinate ER 25 mg tablet,extended release 24 hr RxNorm: 699303 1 Tablet(s) Oral QD 03/01/2019 05/30/2019 Active mupirocin 2 % topical ointment RxNorm: 442671 Applicati on Topical two times a day 03/01/2019 04/10/2019 Inactive Bactrim DS 800 mg-160 mg tablet RxNorm: 953285 1 Tablet(s) Oral two times a day 03/01/2019 03/11/2019 Inactive Plavix 75 mg tablet RxNorm: 423924 TAKE ONE TABLET BY MOUTH DAILY 1 03/12/2018 No Stop Date Active omeprazole 40 mg capsule,delayed release RxNorm: 166477 TAKE ONE CAPSULE BY MOUTH EVERY NIGHT AT BEDTIME FOR REFLUX 01/10/2019 No Stop Date Active cyclobenzaprine 10 mg tablet RxNorm: 174594 TAKE ONE TA BLET BY MOUTH EVERY NIGHT AT BEDTIME NEEDED 01/10/2019 03/10/2019 Inactive tramadol 50 mg tablet RxNorm: 579977 1 Tablet(s) Oral f our times a day as needed 01/03/2019 01/03/2019 Inactive doxycycline monohydrate 100 mg capsule RxNorm: 4699485 1 Capsule(s) Oral two times a day 11/22/2018 12/13/2018 Inactive prednisone 20 mg tablet RxNorm: 945830 1 Tablet(s) Oral two jn es a day 11/22/2018 11/29/2018 Inactive Levaquin 750 mg tablet RxNorm: 827089 Tablet(s) Oral 11/18/201802/28 Inactive prednisone 20 mg tablet RxNorm: 470675 1 Tablet(s) Oral two jn es a day 11/18/2018 11/21/2018 Inactive tramadol 50 mg tablet RxNorm: 207918 Tablet(s) Oral 11/18/20182018 Inactive doxycycline monohydrate 100 mg capsule RxNorm: 2078191 1 Capsule(s) Oral two times a day 11/18/2018 11/21/2018 Inactive Plavix 75 mg tablet RxNorm: 670492 TAKE ONE TABLET BY MOUTH DAILY 0 11/10/2018 01/08/2019 Inactive clindamycin HCl 300 mg capsule RxNorm: 054198 1 Capsule (s) Oral three times a day 11/09/2018 11/19/2018 Inactive Keflex 500 mg capsule RxNorm: 176176 1 Capsule(s) PO BID 10/13/2018 0 10/22/2018 Inactive Medrol (Brenden) 4 mg tablets in a dose pack RxNorm: 047684 Tablet(s) take as directed PO 09/23/2018 10/12/2018 Inactive omeprazole 40 mg capsule,delayed release RxNorm: 193988 1 Capsule(s) PO QHS for reflux 09/06/2018 11/04/2018 Inactive cyclobenzaprine 10 mg tablet RxNorm: 831574 1 Tablet(s) PO QHS as needed 07/15/2018 10/12/2018 Inactive Diflucan 150 mg tablet RxNorm: 511576 1 Tablet(s) PO Q72H 07/15/2018 09/05/2018 Inactive nystatin 100,000 unit/gram topical cream RxNorm: 391775 1 Gram( s) TOP BID 07/15/2018 09/05/2018 Inactive Plavix 75 mg tablet RxNorm: 751868 1 Tablet(s) PO QD 07/15/201810/12 Inactive cyclobenzaprine 10 mg tablet RxNorm: 753730 1 Tablet(s) PO QHS as needed 06/10/2018 06/09/2018 Inactive cyclobenzaprine 10 mg tablet RxNorm: 326816 TAKE ONE TA BLET BY MOUTH EVERY NIGHT AT BEDTIME NEEDED 05/10/2018 06/10/2018 Inactive mupirocin 2 % topical ointment RxNorm: 195514 1 Application TOP BID 2018 05/25/2018 Inactive 22 gram cyclobenzaprine 10 mg tablet RxNorm: 479269 1 Tablet(s) PO QHS as needed 04/14/2018 06/09/2018 Inactive doxycycline hyclate 100 mg tablet RxNorm: 5852552 1 Tablet(s) PO BI D 04/14/2018 04/23/2018 Inactive cyclobenzaprine 10 mg tablet RxNorm: 349137 1 Tablet(s) PO QHS as needed 04/07/2018 04/13/2018 Inactive Bactrim DS 800 mg-160 mg tablet RxNorm: 373009 1 Tablet(s) PO BID 0 03/18/2018 03/27/2018 Inactive cyclobenzaprine 10 mg tablet RxNorm: 456615 1 Tablet(s) PO QHS as needed 03/18/2018 04/06/2018 Inactive triamcinolone acetonide 0.1 % topical cream RxNorm: 9135859 APPLY TO AFFECTED AREA(S) TWO TIMES A DAY 02/03/2018 02/12/2018 Inactive triamcinolone acetonide 0.1 % topical cream RxNorm: 2188193 1 Application TOP BID 01/26/2018 02/02/2018 Inactive Medrol (Brenden) 4 mg tablets in a dose pack RxNorm: 509564 TAKE BY MOUTH INSTRUCTED - PER PACKAGE INSTRUCTIONS 12/11/2017 12/16/2017 Inactive Medrol (Brenden) 4 mg tablets in a dose pack RxNorm: 629833 Tablet(s) P O 10/06/2017 12/10/2017 Inactive Lunesta 3 mg tablet RxNorm: 022864 1 Tablet(s) PO QHS 11/25/201608/2016 Inactive Lunesta 3 mg tablet RxNorm: 430162 1 Tablet(s) PO QHS 11/14/201610/2016 Inactive Bactrim DS 800 mg-160 mg tablet RxNorm: 557101 1 Tablet(s) PO BID 0 11/14/2016 11/23/2016 Inactive Epi E-Z Pen 0.3 mg/0.3 mL injection, auto-injector RxNorm: 1 131046 Milliliter(s) IM Use as Directed 06/25/2016 09/05/2018 Inactive amoxicillin 875 mg tablet RxNorm: 997550 1 Tablet(s) PO BID 017 04/11/2016 Inactive prednisone 20 mg tablet RxNorm: 867510 1 Tablet(s) PO BID 04/02/2016 04/06/2016 Inactive azithromycin 250 mg tablet RxNorm: 160544 2 Tablet(s) P O on day one then 1 tab on days 2-5 11/29/2015 11/28/2015 Inactive Medrol (Brenden) 4 mg tablets in a dose pack RxNorm: 145508 Take as directed 11/29/2015 11/13/2016 Inactive meloxicam 15 mg tablet RxNorm: 294370 1 Tablet(s) PO QD 07/02/2015 Inactive Chantix Starting Month Box 0.5 mg (11)-1 mg (42) table ts in dose pack RxNorm: 225698 Tablet(s) PO As Directed 06/20/2015 07/10/2015 Inactive omeprazole 40 mg capsule,delayed release RxNorm: 323998 1 Capsu le(s) PO QD 05/31/2015 11/13/2016 Inactive omeprazole 40 mg capsule,delayed release RxNorm: 090240 1 Capsu le(s) PO QD 05/31/2015 05/30/2015 Inactive Lactobacillus acidophilus-Bifidobacterium longum oral RxNorm: oral No Start Date Active Multivitamin And Mineral oral RxNorm: oral No Start Date Active Wellbutrin SR 150 mg tablet,sustained-release RxNorm: 102462 1 Tablet(s) PO BID No Start Date 11/13/2016 Inactive gabapentin 100 mg capsule RxNorm: 708062 1 Capsule(s) PO TID No Sta rt Date 03/17/2018 Inactive Chantix Starting Month Box 0.5 mg (11)-1 mg (42) table ts in dose pack RxNorm: 049186 Tablet(s) PO As Directed No Start Date 06/19/2015 Inactive Eliquis 5 mg tablet RxNorm: 3447230 1 Tablet(s) PO BID No Start Date 03/17/2018 Inactive aspirin 325 mg tablet RxNorm: 278118 1 Tablet(s) PO QD No Start Date 11/13/2016 Inactive clindamycin HCl 300 mg capsule RxNorm: 545001 2 Capsule(s) PO Q8H N o Start Date 03/17/2018 Inactive Fish Oil 1,000 mg (120 mg-180 mg) capsule RxNorm: 1 Caps ule(s) PO QD No Start Date 09/05/2018 Inactive aspirin 81 mg tablet RxNorm: 559232 1 Tablet(s) PO QD No Start Date 1 03/28/2017 Inactive Fish Oil 1,000 mg capsule RxNorm: 1 Capsule(s) PO QD No Start Date 11/13/2016 Inactive Baby Aspirin 81 mg chewable tablet RxNorm: 921133 1 Tablet(s) P O BID No Start Date 02/02/2017 Inactive Xarelto 10 mg tablet RxNorm: 0879051 1 Tablet(s) PO QD No Start Date 01/25/2018 Inactive tramadol 50 mg tablet RxNorm: 995743 1-2 Tablet(s) PO Q6H No Start Date 03/17/2018 Inactive meloxicam 15 mg tablet RxNorm: 501096 1 Tablet(s) PO QD No Start Da te 07/01/2015 Inactive Epi E-Z Pen 0.3 mg/0.3 mL injection, auto-injector RxNorm: 1 427713 Milliliter(s) IM Use as Directed No Start Date 06/24/2016 Inactive Plavix 75 mg tablet RxNorm: 186630 1 Tablet(s) PO QD No Start Date Inactive Medication Administered No Medication Administered data Immunizations No Immunization data Results Observation Observation Code Item Item Code Result Date [facility] Location COMPREHENSIVE METABOLIC 21136 AST 25 U/L 2018 Unknown COMPREHENSIVE METABOLIC 57994 ALT 28 U/L 2018 Unknown COMPREHENSIVE METABOLIC 72077 BUN 13 mg/dL 2018 Unknown COMPREHENSIVE METABOLIC 90011 ALBUMIN 4.2 g/dL 2018 Unknown COMPREHENSIVE METABOLIC 29700 CHLORIDE 104 mmol/L 11/09 Unknown COMPREHENSIVE METABOLIC 44042 Bili Total 0.5 mg/dL 11/09 Unknown COMPREHENSIVE METABOLIC 90823 ALK PHOS 72 U/L 2018 Unknown COMPREHENSIVE METABOLIC 88384 SODIUM 139 mmol/L 11/09 Unknown COMPREHENSIVE METABOLIC 10394 CREATININE 0.98 mg/dL 10/18 Unknown COMPREHENSIVE METABOLIC 42988 CALCIUM 9.1 mg/dL 2018 Unknown COMPREHENSIVE METABOLIC 79662 POTASSIUM 3.7 mmol/L 11/09 Unknown COMPREHENSIVE METABOLIC 67857 Total Protein 7.2 g/dL Unknown COMPREHENSIVE METABOLIC 63756 Glucose 137 mg/dL 2018 Unknown COMPREHENSIVE METABOLIC 85110 Bicarbonate 24 mmol/L 10/18 Unknown COMPREHENSIVE METABOLIC 87084 AGAP 11 mmol/L 2018 Unknown COMPLETE BLOOD COUNT 4326244 WBC 4.6 10e9/L 11/10/19 19 Unknown COMPLETE BLOOD COUNT [id number] RBC 4.88 10e12/L 2018 Unknown COMPLETE BLOOD COUNT [id number] HEMOGLOBIN 14.7 g/dL 11/10/19 19 Unknown COMPLETE BLOOD COUNT [id number] HEMATOCRIT 43.7 % 11/10/19 19 Unknown COMPLETE BLOOD COUNT [id number] MCV 89.5 fL 9 Unknown COMPLETE BLOOD COUNT [id number] MCH 30.1 pg 9 Unknown COMPLETE BLOOD COUNT 2438150 MCHC 33.6 g/dL 9 Unknown COMPLETE BLOOD COUNT [id number] PLATELET COUNT 179 10e9/L Unknown COMPLETE BLOOD COUNT 1649502 Mean Plt Volume 11.6 fL Unknown COMPLETE BLOOD COUNT 9659889 Neut Auto 55.5 % 9 Unknown COMPLETE BLOOD COUNT [id number] Lymph Auto 28.7 % 11/10/19 19 Unknown COMPLETE BLOOD COUNT 2365187 Villalba Auto 7.9 % 9 Unknown COMPLETE BLOOD COUNT 1607131 RDW 13.2 % 9 Unknown COMPLETE BLOOD COUNT 5618914 Eos Auto 7.7 % 9 Unknown COMPLETE BLOOD COUNT [id number] Baso Auto 0.2 % 9 Unknown COMPLETE BLOOD COUNT [id number] Neutrophil Abs 2.55 10e9/L Unknown COMPLETE BLOOD COUNT [id number] Lymphocyte Abs 1.32 10e9/L Unknown COMPLETE BLOOD COUNT [id number] Monocyte Abs 0.36 10e9/L 10/18 Unknown COMPLETE BLOOD COUNT [id number] Eosinophil Abs 0.35 10e9/L Unknown COMPLETE BLOOD COUNT [id number] RDW-SD 42.2 fL 9 Unknown COMPLETE BLOOD COUNT [id number] Basophil Abs 0.01 10e9/L 10/18 Unknown [facility] 82417 Cholesterol 205 mg/dL 11/09/2018 Unkno wn [facility] 97128 Triglyceride 268 mg/dL 11/09/2018 Unkn own [facility] 70168 HDL CHOLESTEROL 35 mg/dL 11/09/2018 U nknown [facility] 80997 Chol/HDL Ratio 5.86 ratio 11/09/2018 U nknown [facility] 07332 NON-HDL Chol 170 mg/dL 11/09/2018 Unkn own [facility] 76892 LDL Cholesterol 116 mg/dL 11/09/2018 U nknown PT 4126804 PT 12.7 Seconds 11/09/2018 Unknow n PT 3716807 INR 0.9 11/09/2018 Unknown GFR CALC 9414760 GFR Non Afr Amr >60 mL/min 11/09/2018 Un known GFR CALC 9896737 GFR Afr Amr >60 mL/min 11/09/2018 Unknow n ACT PARTIAL THRMBOPLASTIN TIME 67841 PTT 34.0 Sec[place] nds 11/09/2018 Unknown [facility] 06700 Cholesterol 186 mg/dL 2018 Unkno wn [facility] 31989 Triglyceride 229 mg/dL 2018 Unkn own [facility] 24409 HDL CHOLESTEROL 36 mg/dL 2018 U nknown [facility] 51272 Chol/HDL Ratio 5.17 ratio 2018 U nknown [facility] 21012 NON-HDL Chol 150 mg/dL 2018 Unkn own [facility] 55604 LDL Cholesterol 104 mg/dL 2018 U nknown GFR CALC 8135175 GFR Non Afr Amr >60 mL/min 2018 Un known GFR CALC 1305833 GFR Afr Amr >60 mL/min 2018 Unknow n COMPREHENSIVE METABOLIC 72120 AST 23 U/L 2018 Unknown COMPREHENSIVE METABOLIC 48056 ALT 22 U/L 2018 Unknown COMPREHENSIVE METABOLIC 85510 BUN 15 mg/dL 2018 Unknown COMPREHENSIVE METABOLIC 27895 ALBUMIN 4.1 g/dL 2018 Unknown COMPREHENSIVE METABOLIC 26251 CHLORIDE 106 mmol/L 05/06 Unknown COMPREHENSIVE METABOLIC 76744 Bili Total 0.6 mg/dL 05/06 Unknown COMPREHENSIVE METABOLIC 46453 ALK PHOS 61 U/L 2018 Unknown COMPREHENSIVE METABOLIC 56639 SODIUM 141 mmol/L 05/06 Unknown COMPREHENSIVE METABOLIC 23318 CREATININE 0.91 mg/dL 04/17 Unknown COMPREHENSIVE METABOLIC 65224 CALCIUM 9.2 mg/dL 2018 Unknown COMPREHENSIVE METABOLIC 22613 POTASSIUM 3.8 mmol/L 05/06 Unknown COMPREHENSIVE METABOLIC 04490 Total Protein 7.0 g/dL Unknown COMPREHENSIVE METABOLIC 25561 Glucose 97 mg/dL 2018 Unknown COMPREHENSIVE METABOLIC 75502 Bicarbonate 28 mmol/L 04/17 Unknown COMPREHENSIVE METABOLIC 91544 AGAP 7 mmol/L 2018 Unknown THYROID STIMULATING HORMONE 17158 TSH 2.094 uIU/mL 2018 Unknown COMPLETE BLOOD COUNT 9011665 WBC 5.5 10e9/L 05/07/19 19 Unknown COMPLETE BLOOD COUNT [id number] RBC 4.61 10e12/L 2018 Unknown COMPLETE BLOOD COUNT 2157997 HEMOGLOBIN 13.6 g/dL 05/07/19 19 Unknown COMPLETE BLOOD COUNT 6429766 HEMATOCRIT 40.0 % 05/07/19 19 Unknown COMPLETE BLOOD COUNT 0579045 MCV 86.8 fL 9 Unknown COMPLETE BLOOD COUNT 7475923 MCH 29.5 pg 9 Unknown COMPLETE BLOOD COUNT 3242095 MCHC 34.0 g/dL 9 Unknown COMPLETE BLOOD COUNT 5289154 PLATELET COUNT 197 10e9/L Unknown COMPLETE BLOOD COUNT 4781787 Mean Plt Volume 10.8 fL Unknown COMPLETE BLOOD COUNT 2731406 Neut Auto 49.6 % 9 Unknown COMPLETE BLOOD COUNT 1008004 Lymph Auto 36.8 % 05/07/19 19 Unknown COMPLETE BLOOD COUNT 6551235 Villalba Auto 8.1 % 9 Unknown COMPLETE BLOOD COUNT 2461531 RDW 15.3 % 9 Unknown COMPLETE BLOOD COUNT 2972822 Eos Auto 5.3 % 9 Unknown COMPLETE BLOOD COUNT 6874905 Baso Auto 0.2 % 9 Unknown COMPLETE BLOOD COUNT 9713214 Neutrophil Abs 2.73 10e9/L Unknown COMPLETE BLOOD COUNT [id number] Lymphocyte Abs 2.02 10e9/L Unknown COMPLETE BLOOD COUNT [id number] Monocyte Abs 0.45 10e9/L 04/17 Unknown COMPLETE BLOOD COUNT 2243363 Eosinophil Abs 0.29 10e9/L Unknown COMPLETE BLOOD COUNT [id number] RDW-SD 47.9 fL 9 Unknown COMPLETE BLOOD COUNT [id number] Basophil Abs 0.01 10e9/L 04/17 Unknown Procedures Procedure Codes Date CEFTRIAXONE SODIUM INJECTION CPT-4: J0696 11/09/2018 THER/PROPH/DIAG INJ SC/IM CPT-4: 38308 11/09/2018 ROUTINE VENIPUNCTURE CPT-4: 44229 11/09/2018 COMPREHEN METABOLIC PANEL CPT-4: 59577 11/09/2018 COMPLETE CBC W/AUTO DIFF WBC CPT-4: 88767 11/09/2018 LIPID PANEL CPT-4: 46073 11/09/2018 PROTHROMBIN TIME CPT-4: 56607 11/09/2018 THROMBOPLASTIN TIME PARTIAL CPT-4: 40169 11/09/2018 THER/PROPH/DIAG INJ SC/IM CPT-4: 24065 09/23/2018 KETOROLAC TROMETHAMINE INJ CPT-4: J1885 09/23/2018 ROUTINE VENIPUNCTURE CPT-4: 91585 2018 ASSAY THYROID STIM HORMONE CPT-4: 39495 2018 COMPREHEN METABOLIC PANEL CPT-4: 02998 2018 COMPLETE CBC W/AUTO DIFF WBC CPT-4: 68083 2018 LIPID PANEL CPT-4: 58558 2018 CEFTRIAXONE SODIUM INJECTION CPT-4: J0696 04/14/2018 THER/PROPH/DIAG INJ SC/IM CPT-4: 75357 04/14/2018 CEFTRIAXONE SODIUM INJECTION CPT-4: J0696 03/18/2018 THER/PROPH/DIAG INJ SC/IM CPT-4: 75971 03/18/2018 THER/PROPH/DIAG INJ SC/IM CPT-4: 24678 01/26/2018 KETOROLAC TROMETHAMINE INJ CPT-4: J1885 01/26/2018 CEFTRIAXONE SODIUM INJECTION CPT-4: J0696 12/22/2017 THER/PROPH/DIAG INJ SC/IM CPT-4: 00141 12/22/2017 ROUTINE VENIPUNCTURE CPT-4: 22448 11/14/2016 COMPLETE CBC W/AUTO DIFF WBC CPT-4: 32303 11/14/2016 PT/PTT CPT-4: 7189355 11/14/2016 Vital Signs Date Vital 04/11/2019 Blood Pressure 1: 152/86 Code: 8480-6 Heart Rate 1: 100 bpm Respiratory Rate: 20 bpm SpO2: 96% Temperature: 37.0 (C) / 98.6 (F) We ight: 192 lbs 03/01/2019 Blood Pressure 1: 134/82 Code: 8480-6 BMI: 23.9 Code: 33758-4 Heart Rate 1: 100 bpm Height: 6'4" [...] 1: 138/70 Code: 8480-6 BMI: 22.6 Code: 58729-5 Heart Rate 1: 97 bpm Height: 6'4" [...] 1: 142/80 Code: 8480-6 BMI: 20.9 Code: 08599-9 Heart Rate 1: 108 bpm Height: 6'4" Respiratory Rate: 20 bpm SpO2: 97% Tempera ture: 36.6 (C) / 97.9 (F) Weight: 172 lbs 01/26/2018 Blood Pressure 1: 130/82 Code: 8480-6 Heart Rate 1: 98 bpm Respiratory Rate: 18 bpm SpO2: 99% Temperature: 35.7 (C) / 96.3 (F) We ight: 175 lbs 12/22/2017 Blood Pressure 1: 124/68 Code: 8480-6 BMI: 22.3 Code: 44562-3 Heart Rate 1: 100 bpm Height: 6'4" Respiratory Rate: 20 bpm SpO2: 98% Tempera ture: 36.7 (C) / 98.0 (F) Weight: 183 lbs 10/06/2017 Blood Pressure 1: 130/86 Code: 8480-6 BMI: 21.1 Code: 22167-3 Heart Rate 1: 92 bpm Height: 6'4" Respiratory Rate: 18 bpm SpO2: 98% Tempera ture: 36.9 (C) / 98.5 (F) Weight: 173 lbs 02/03/2017 Blood Pressure 1: 144/92 Code: 8480-6 BMI: 20.8 Code: 37941-5 Heart Rate 1: 88 bpm Height: 6'4" Respiratory Rate: 20 bpm SpO2: 97% Tempera ture: 36.7 (C) / 98.1 (F) Weight: 171 lbs 11/25/2016 Blood Pressure 1: 126/84 Code: 8480-6 Heart Rate 1: 76 bpm Respiratory Rate: 20 bpm SpO2: 96% Temperature: 36.9 (C) / 98.4 (F) We ight: 170 lbs 11/14/2016 Blood Pressure 1: 126/82 Code: 8480-6 BMI: 20.7 Code: 98848-4 Heart Rate 1: 86 bpm Height: 6'4" Respiratory Rate: 18 bpm SpO2: 96% Tempera ture: 35.8 (C) / 96.5 (F) Weight: 170 lbs 04/02/2016 Blood Pressure 1: 124/78 Code: 8480-6 Heart Rate 1: 88 bpm Respiratory Rate: 24 bpm SpO2: 97% Temperature: 36.1 (C) / 97.0 (F) We ight: 161 lbs 11/29/2015 Blood Pressure 1: 124/68 Code: 8480-6 BMI: 19.2 Code: 20671-2 Heart Rate 1: 94 bpm Height: 6'4" Respiratory Rate: 18 bpm SpO2: 97% Tempera ture: 36.1 (C) / 97.0 (F) Weight: 158 lbs 06/27/2015 Blood Pressure 1: 128/78 Code: 8480-6 BMI: 18.7 Code: 89404-2 Heart Rate 1: 72 bpm Height: 6'4" Respiratory Rate: 22 bpm SpO2: 98% Tempera ture: 35.9 (C) / 96.6 (F) Weight: 154 lbs 05/24/2015 Blood Pressure 1: 112/78 Code: 8480-6 BMI: 19.7 Code: 69963-1 Heart Rate 1: 78 bpm Height: 6'4" [...] care Encounters Encounter Performer Location Codes Date ([id number]) OFFICE/OUTPATIENT VISIT EST Diagnosis: DM w/o complication type II, uncontrolled[ICD10: E11.65] Diagnosis: 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, implant, or graft[ICD10: T85.818A] Diagnosis: Essential hypertension[ICD10: I10] Janneth RAY Data [facility] [email or web address] CPT-4: 20426 04/11/2019 ([id number]) OFFICE/OUTPATIENT VISIT EST Diagnosis: Sinus tachycardia[ICD10: R00.0] Diagnosis: Folliculitis[ICD10: L73.9] Janneth TAFOYAER Vidyo [facility] CPT-4: 96965 03/01/2019 ([id number]) OFFICE/OUTPATIENT VISIT EST Diagnosis: Cellulitis of left lower limb[ICD10: L03.116] Diagnosis: Tendinitis of left peroneus longus tendon[ICD10: M76.72] aJnneth CLARK [email or web address] CPT-4: 58393 11/18/2018 ([id number]) OFFICE/OUTPATIENT VISIT EST Diagnosis: Cellulitis of left foot[ICD10: L03.116] Diagnosis: Spontaneous ecchymoses[ICD10: R23.3] Diagnosis: Venous insufficiency (chronic) (peripheral)[ICD10: I87.2] Diagnosis: Mixed hyperlipidemia[ICD10: E78.2] Vania RAY [employer] [facility] [email or web address] CPT-4: 44297 11/09/2018 ([id number]) OFFICE/OUTPATIENT VISIT EST Diagnosis: Venous insufficiency (chronic) (peripheral)[ICD10: I87.2] Diagnosis: Cellulitis of left lower limb[ICD10: L03.116] Diagnosis: Pain in right foot[ICD10: M79.671] Vania RAY [employer] CPT-4: 02142 10/13/2018 ([id number]) OFFICE/OUTPATIENT VISIT EST Diagnosis: Low back pain[ICD10: M54.5] Vania WARD S. Brandon [facility] [email or web address] CPT-4: 31596 09/23/2018 ([id number]) OFFICE/OUTPATIENT VISIT EST Diagnosis: Gastro-esophageal reflux disease without esophagitis[ICD10: K21.9] Diagnosis: Dysphagia, pharyngoesophageal phase[ICD10: R13.14] Janneth SHRESTHA [facility] CPT-4: 32938 09/06/2018 ([id number]) OFFICE/OUTPATIENT VISIT EST Diagnosis: Tinea corporis[ICD10: B35.4] Vania SHRESTHA DO [facility] CPT-4: 59091 07/15/2018 ([id number]) OFFICE/OUTPATIENT VISIT EST Diagnosis: Cellulitis of left toe[ICD10: L03.032] Diagnosis: Mixed hyperlipidemia[ICD10: E78.2] Mandy SHRESTHA [facility] CPT-4: 98629 2018 OFFICE/OUTPATIENT VISIT EST Diagnosis: Cellulitis of left toe[ICD10: L03.032] Diagnosis: Unspecified disturbances of skin sensation[ICD10: R20.9] Mandy SHRESTHA [facility] CPT-4: 71622 04/14/2018 ([id number]) OFFICE/OUTPATIENT VISIT EST Diagnosis: Cellulitis of left toe[ICD10: L03.032] Diagnosis: Insomnia, unspecified[ICD10: G47.00] Vania SHRESTHA Vidyo [facility] CPT-4: 99807 03/18/2018 ([id number]) OFFICE/OUTPATIENT VISIT EST Diagnosis: Other postprocedural complications and disorders of the circulatory system, not elsewhere classified[ICD10: I97.89] Diagnosis: Rash and other nonspecific skin eruption[ICD10: R21] Diagnosis: Pain in right leg[ICD10: M79.604] Vania SHRESTHA Vidyo [facility] CPT-4: 39720 01/26/2018 ([id number]) OFFICE/OUTPATIENT VISIT EST Diagnosis: Other postprocedural complications and disorders of the circulatory system, not elsewhere classified[ICD10: I97.89] Diagnosis: Cellulitis of right lower limb[ICD10: L03.115] Vania SHRESTHA Vidyo [facility] CPT-4: 89253 12/22/2017 ([id number]) OFFICE/OUTPATIENT VISIT EST Diagnosis: Acute sinusitis, unspecified[ICD10: J01.90] Diagnosis: Unspecified disturbances of skin sensation[ICD10: R20.9] Vania SHRESTHA Vidyo [facility] CPT-4: 68898 10/06/2017 ([id number]) OFFICE/OUTPATIENT VISIT EST Diagnosis: Primary insomnia[ICD10: F51.01] Diagnosis: Pain in left shoulder[ICD10: M25.512] Diagnosis: Poisoning by other parasympatholytics [anticholinergics and antimuscarinics] and spasmolytics, accidental (unintentional), sequela[ICD10: T44.3X1S] Janneth SHRESTHA [facility] CPT-4: 43503 02/03/2017 OFFICE/OUTPATIENT VISIT EST Diagnosis: Insomnia, unspecified[ICD10: G47.00] Diagnosis: Constipation, unspecified[ICD10: K59.00] Diagnosis: Spontaneous ecchymoses[ICD10: R23.3] Diagnosis: Pain in left foot[ICD10: M79.672] Vania SHRESTHA Vidyo [facility] CPT-4: 30988 11/25/2016 OFFICE/OUTPATIENT VISIT EST Diagnosis: Insomnia, unspecified[ICD10: G47.00] Diagnosis: Constipation, unspecified[ICD10: K59.00] Diagnosis: Spontaneous ecchymoses[ICD10: R23.3] Diagnosis: Other specified local infections of the skin and subcutaneous tissue[ICD10: L08.89] Vania SHRESTHA Vidyo [facility] CPT-4: 99 213 11/14/2016 ([id number]) OFFICE/OUTPATIENT VISIT EST Diagnosis: Acute upper respiratory infection, unspecified[ICD10: J06.9] Ester SHRESTHA Vidyo [facility] CPT-4: 12104 04/02/2016 ([id number]) OFFICE/OUTPATIENT VISIT EST Diagnosis: Acute upper respiratory infection, unspecified[ICD10: J06.9] Ester SHRESTHA Vidyo [facility] CPT-4: 70647 11/29/2015 ([id number]) OFFICE/OUTPATIENT VISIT EST Diagnosis: Pain in thoracic spine[ICD10: M54.6] Diagnosis: Paresthesia of skin[ICD10: R20.2] Diagnosis: Dysphagia, unspecified[ICD10: R13.10] Ester SHRESTHA DO [employer] CPT-4: 98964 06/27/2015 ([id number]) OFFICE/OUTPATIENT VISIT NEW Diagnosis: Pain in left leg[ICD10: M79.605] Diagnosis: Male erectile dysfunction, unspecified[ICD10: N52.9] Diagnosis: Dysphagia, unspecified[ICD10: R13.10] Ester SHRESTHA DO [facility] CPT-4: 89760 05/24/2015 Plan of Care Planned Activity Notes Codes Status Date Visit Diagnosis Plan: Essential hypertension Discussio n: Increase metoprolol to 50mg daily for both BP and pulse ICD-9 : 401.9 ICD-10 : I10 04/11/2019 Visit Diagnosis Plan: 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, implan t, or graft Discussion: S/P removal of graft and stent placement by Dr. Allen--on xarelto ICD-9 : 996.70 ICD-10 : T85.818A 04/11/2019 Visit Diagnosis Plan: DM w/o complication type II, unc ontrolled Discussion: Start Metformin ER 500mg po daily Accuchecks BID Long discussion about diet--patient drinks regular Mtn Dew all day long and eats sweets including candy daily Follow Up: 3 weeks ICD-9 : 250.02 ICD-10 : E11.65 04/11/2019 Patient Education: metoprolol succinate- [employer] Co upon [phone] [email or web address] Completed 04/11/2019 Patient Education: Metformin Patient Savings Message Alert Completed 04/11/2019 Patient Education: cephalexin- [employer] Coupon [phone] [email or web address] Completed 04/11/2019 Visit Diagnosis Plan: Folliculitis Discussion: Bactrim and topical bactroban ICD-9 : 704.8 ICD-10 : L73.9 03/01/2019 Visit Diagnosis Plan: Sinus tachycardia Discussion: St art low dose metoprolol ER 25mg daily Monitor pulse Sees Cardiology next month ICD-9 : 427.89 ICD-10 : R00.0 03/01/2019 Appointment: Janneth Shrestha WPtel: [address] [place], [place] [phone] [place] FOLLOW UP 03/01/2019 Patient Education: mupirocin- [employer] Coupon [id number] https://www.[employer]/resources/getResource/61/sk568cd7-99ig-405e-ym Completed 03/01/2019 Appointment: Janneth Shrestha WPtel: [address] [place] [address] [place] CANCELED 12/20/2018 Visit Diagnosis Plan: Cellulitis [...] ICD-10 : M76.72 11/18/2018 Appointment: Vania García [address] [place], [place] [id number] [place] CANCELED 11/18/2018 Appointment: Janneth Shrestha WPtel: [address] [place], [place] [phone] [place] FOLLOW UP 11/18/2018 Patient Education: doxycycline monohydrate- [employer] Coupon [id number] https://www.[employer]/resources/getResource/61/hec41705-d5f9-77p8-9p Completed 11/18/2018 Patient Education: prednisone- OptimizeRX Coupon [id number] https://www.[employer]/resources/getResource/61/28iy2a8q-3dt9-6923-og Completed 11/18/2018 Care Plan: Referral Order SNOMED-CT : 30 [id number] Pending 11/18/2018 Visit Diagnosis Plan: Venous insufficiency [...] evaluated in an ED whether it be [place] or wherever he's traveling. discussed the risk [...] ICD-10 : R23.3 11/09/2018 Appointment: Vania García [address] [place] [address] [place] ACUTE ILLNESS 11/09/2018 Patient Education: clindamycin HCl- [employer] Coupon [id number] https://www.[employer].com/samplemd/resources/getResource/61/41iv38y9-ag89-1xf2-0h Completed 11/09/2018 Appointment: Janneth Shrestha WPtel: [address] [facility] [place] CANCELED 10/19/2018 Visit Diagnosis Plan: [...] ICD-10 : L03.116 10/13/2018 Appointment: Vania García [address] [place] [address] Patient cant pay copay till when he [...] ICD-10 : M54.5 09/23/2018 Appointment: Vania García [address] [place], [place] [address] AC[facility]LL[facility] 09/23/2018 Patient Education: Medrol (Brenden)- OptimizeRX Coupon [phone] https://www.[employer]/resources/getResource/61/jlox527m-8833-12l3-70 Completed 09/23/2018 Visit Diagnosis Plan: Dysphagia, pharyngoesophageal ph ase Discussion: Referral for EGD ICD-9 : 787.24 ICD-10 : R13.14 09/06/2018 Visit Diagnosis Plan: Gastro-esophageal reflux disease without esophagitis Discussion: Start omeprazole ICD-9 : 530.81 ICD-10 : K21.9 09/06/2018 Appointment: [facility]rest[facility] [facility] [facility] AC[facility] I[facility] 09/06/2018 Patient Education: omeprazole- OptimizeRX Coupon [phone] https://www.[employer]/resources/getResource/61/881fm956-23q2-214x-47 Completed 09/06/2018 Care Plan: Referral Order SNOMED-CT : 30 [id number] Pending 09/06/2018 Visit Diagnosis Plan: Tinea corporis Discussion: nysta tin to be used bid until rash gone and then an additional 2 days. diflucan every 3 days for 3 doses. keep area clean and dry with no moisturizers. call office if no improvement in 2 weeks or if worsening. ICD-9 : 110.5 ICD-10 : B35.4 07/15/2018 Appointment: Vania García [address] ACUTE ILLNESS 07/15/2018 Patient Education: nystatin- Opt[employer] Coupon [id number] https://www.[employer]/sampleChangeYourFlight/resources/getResource/61/76vai821-b7sx-72sq-4a Completed 07/15/2018 Patient Education: Plavix- OptimizeRX Coupon [id number] https://www.[employer]/resources/getResource/61/07ib2w85-m97e-57wk-54 fa-i116x2980794.pdf Completed 07/15/2018 Patient Education: cyclobenzaprine- Opt[employer]RX Coupon [id number] https://www.[employer]/sample[employer]/resources/getResource/61/18229r9x-3t65-45t7-kn Completed 07/15/2018 Visit Diagnosis Plan: Cellulitis of [...] : L03.032 2018 Appointment: Mandy Hollins [address] FOLLOW UP 2018 Patient Education: mupirocin- Optimize[employer] Coupon [id number] https://www.[employer]/sample[employer]/resources/getResource/61/f4nq21s6-9608-9813-3h Completed 2018 Visit Diagnosis Plan: Cellulitis of [...] : R20.9 04/14/2018 Appointment: Mandy Hollins [address] FOLLOW UP 04/14/2018 Visit Diagnosis Plan: [...] : G47.00 03/18/2018 Appointment: Vania García [address] ACUTE ILLNESS 03/18/2018 Patient Education: cyclobenzaprine- OptimizeRX Coupon [id number] https://www.[employer].com/samplemd/resources/getResource/61/2347n969-6rv8-425o-q2 Completed 03/18/2018 Visit Diagnosis Plan: Rash and other nonspecific skin eruption Discussion: triamcinolone ordered to be used as directed. ICD-9 : 782.1 ICD-10 : R21 01/26/2018 Visit Diagnosis Plan: Other postprocedur al complications and disorders of the circulatory system, not elsewhere classified Discussion: discussed with dr. shrestha and patient was instructed to contact the [facility] due to uncontrolled pain, continued erythema, patient needs to be re-evaluated by the surgeon. 60 mg toradol given to patient. patient verbalized understanding and voiced he will contact them today for an appointment. ICD-9 : 997.1 ICD-10 : I97.89 01/26/2018 Appointment: Vania García 504 [facility] Hospital Follow Up 01/26/2018 Appointment: Janneth Shrestha WPtel: [address] [facility] NO SHOW 01/06/2018 Visit Diagnosis Plan: [...] : I97.89 12/22/2017 Appointment: Vania García 504 [facility] ACUTE ILLNESS 12/22/2017 Visit Diagnosis Plan: Unspecified [...] : J01.90 10/06/2017 Appointment: Vania García 504 [facility] ACUTE ILLNESS 10/06/2017 Patient Education: Patient Medication Summary Completed 10/06/2017 Appointment: Vania García [address] [place] [address] ER Follow UP 08/17/2017 Appointment: Vania García [address] [place] [address] [place] CANCELED 07/03/2017 Appointment: Janneth Shrestha WPtel: [facility] [place] [address] [place] canceled at 8:05 this morning. CANCELED [...] : T44.3X1S 02/03/2017 Appointment: Janneth Shrestha WPtel: [facility] [place] [id number] Hospital Follow Up 02/03/2017 Patient Education: Patient [...] Discussion: re isabella sent for dr rose bricklayer paving brick. ICD-9 : 729.5 ICD-10 : M79.672 11/25/2016 Visit Diagnosis Plan: Insomnia, unspecified Recommenda tions: resolved with lunesta. continue taking as prescribed. ICD-9 : 780.52 ICD-10 : G47.00 11/25/2016 Appointment: Vania García [address] [id number] FOLLOW UP 11/25/2016 Patient Education: Patient Medication [...] : L08.89 11/14/2016 Appointment: Vania García [address] [id number] ACUTE ILLNESS 11/14/2016 Patient Education: Patient Medication Summary Completed 11/14/2016 Visit Diagnosis Plan: Acute upper respiratory infectio n, unspecified Discussion: Rxs as above Continue OTC and supportive meds Encouraged smoking cessation Follow up PRN ICD-9 : 465.9 ICD-10 : J06.9 04/02/2016 Appointment: Ester Grande [address] [facility] ACUTE ILLNESS 04/02/2016 Patient Education: Patient Medication Summary Completed 04/02/2016 Visit Plan: Rxs as above Supportive care reviewed Follow up PRN 11/29/2015 Appointment: Ester Grande [facility]66[facility] 11/27 confirmed~ ACUTE ILLNESS 11/29/2015 Patient Education: [...] off label use for pain 06/27/2015 Appointment: Tanner Grandefany Yessi [facility]6[address] 06/25 ~ 06/26 phone not on~ FOLLOW UP 06/27/2015 Patient Education: Patient Medication Summary Completed 06/27/2015 Care Plan: X-RAY EXAM RIBS UNI 2 VIEWS L OINC : 06144-5 Pending 06/27/2015 Referral: Héctor Woodard WPtel: [address] [facility] 05/29 Scheduled with [facility] Appointment Re quested 06/26/2015 Referral: Cameron Khanna WPtel: [address] [facility] [place] Referral Initiated 06/11/2015 Referral: Macro Antonio Green WPtel: [address] [id number] 05/30/15 Needs to be there at pre op time per ~sl Initiated 06/04/2015 Visit Plan: Will get all necessary refer rals set up - CTS, Uro and G/S Swallow study and routine labs ordered Will further investigate left leg pain with EMG if not cardio related 05/24/2015 Appointment: Ester Grande [address] NEW PATIENT 05/24/2015 Patient Education: Patient Medication Summary Completed 05/24/2015 Care Plan: Referral Order SNOMED-CT : 30 [id number] Pending 05/24/2015 Care Plan: Referral Order SNOMED-CT : 30 7597970 Pending 05/24/2015 Care Plan: Referral Order SNOMED-CT : 30 0280921 Pending 05/24/2015 Referral: Sudheer Gann WPtel: [address] [place] [address] [place] Referral Appointment Requested Referral: Alfonzo Andujar WPtel: [address] [place] [address] [place] Referral Initiated Referral: Cameron Khanna WPtel: [address] [place] [address] [place] Referral Appointment Requested Referral: Brianna Rose WPtel: [address] [place] [address] [place] Referral Initiated Referral: Héctor Woodard WPtel: [address] 05/24/15 [facility] office suggested he see another card. ~sl Initiated Referral: Alfonzo Andujar WPtel: [address] [place] [address] [place] Referral Appointment Requested Referral: Marco Antonio Green WPtel: [address] [place] [address] [place] Referral Appointment Requested Instructions Comment . [...]
--- OUTSIDE RECORDS SUMMARY | 2019-08-06 10:29 | XMS REPORT | CCD ---
Author Author [place] Organization JANNETH SHRESTHA DO [facility] Address [address] [place] [address] Phone Unavailable Care Team Providers Care Felt Carbonizer Name Role Phone Janneth Shrestha D.O., PP Unavailable CCM Unavailable Summary Purpose Interface Exchange Insurance Providers Payer name Policy type / Coverage type Covered libertarian ID Effective Begin Date Effective End Date Blue Cross Blue Shield Blue Cross/Blue Shield [id number] Unknown Family History Family History data not found Social History Social History Element Codes Description Effective Dates Marital status Unknown 05/24/2015 Number of children Unknown 2 05/24/2015 Employment Unknown Currently employed 05/24/[address]: [id number] 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 [...] Instructions aspirin 81 mg tablet,delayed release RxNorm: 974747 1 Tablet(s) Oral QD 04/11/2019 No Stop Date Active pantoprazole 40 mg tablet,delayed release RxNorm: 159789 1 Tabl et(s) Oral QAM 04/11/2019 No Stop Date Active Vitamin C 1,000 mg tablet RxNorm: 967984 1 Tablet(s) Oral QD 2019 No Stop Date Active Xarelto 15 mg tablet RxNorm: 1267333 1 Tablet(s) Oral QD 04/11/2019 No Stop Date Active metformin ER 500 mg 24 hr tablet,extended release RxNorm: 18 94835 1 Tablet(s) Oral QD 04/11/2019 07/10/2019 Active cephalexin 500 mg capsule RxNorm: 994610 1 Capsule(s) Oral thre e times a day 04/11/2019 04/18/2019 Active metoprolol succinate ER 50 mg tablet,extended release 24 hr RxNorm: 998330 1 Tablet(s) Oral QD replaces 25mg dose 04/11/2019 07/10/2019 Active cyclobenzaprine 10 mg tablet RxNorm: 207907 TAKE ONE TA BLET BY MOUTH EVERY NIGHT AT BEDTIME NEEDED 03/11/2019 No Stop Date Active metoprolol succinate ER 25 mg tablet,extended release 24 hr RxNorm: 191678 1 Tablet(s) Oral QD 03/01/2019 05/30/2019 Active mupirocin 2 % topical ointment RxNorm: 487806 Applicati on Topical two times a day 03/01/2019 04/10/2019 Inactive Bactrim DS 800 mg-160 mg tablet RxNorm: 533461 1 Tablet(s) Oral two times a day 03/01/2019 03/11/2019 Inactive Plavix 75 mg tablet RxNorm: 633131 TAKE ONE TABLET BY MOUTH DAILY 1 03/12/2018 No Stop Date Active omeprazole 40 mg capsule,delayed release RxNorm: 570667 TAKE ONE CAPSULE BY MOUTH EVERY NIGHT AT BEDTIME FOR REFLUX 01/10/2019 No Stop Date Active cyclobenzaprine 10 mg tablet RxNorm: 119792 TAKE ONE TA BLET BY MOUTH EVERY NIGHT AT BEDTIME NEEDED 01/10/2019 03/10/2019 Inactive tramadol 50 mg tablet RxNorm: 309100 1 Tablet(s) Oral f our times a day as needed 01/03/2019 01/03/2019 Inactive doxycycline monohydrate 100 mg capsule RxNorm: 7855960 1 Capsule(s) Oral two times a day 11/22/2018 12/13/2018 Inactive prednisone 20 mg tablet RxNorm: 128498 1 Tablet(s) Oral two jn es a day 11/22/2018 11/29/2018 Inactive Levaquin 750 mg tablet RxNorm: 082409 Tablet(s) Oral 11/18/201802/28 Inactive prednisone 20 mg tablet RxNorm: 312889 1 Tablet(s) Oral two jn es a day 11/18/2018 11/21/2018 Inactive tramadol 50 mg tablet RxNorm: 009259 Tablet(s) Oral 11/18/20182018 Inactive doxycycline monohydrate 100 mg capsule RxNorm: 4736985 1 Capsule(s) Oral two times a day 11/18/2018 11/21/2018 Inactive Plavix 75 mg tablet RxNorm: 925909 TAKE ONE TABLET BY MOUTH DAILY 0 11/10/2018 01/08/2019 Inactive clindamycin HCl 300 mg capsule RxNorm: 264919 1 Capsule (s) Oral three times a day 11/09/2018 11/19/2018 Inactive Keflex 500 mg capsule RxNorm: 760575 1 Capsule(s) PO BID 10/13/2018 0 10/22/2018 Inactive Medrol (Brenden) 4 mg tablets in a dose pack RxNorm: 581806 Tablet(s) take as directed PO 09/23/2018 10/12/2018 Inactive omeprazole 40 mg capsule,delayed release RxNorm: 348958 1 Capsule(s) PO QHS for reflux 09/06/2018 11/04/2018 Inactive cyclobenzaprine 10 mg tablet RxNorm: 480525 1 Tablet(s) PO QHS as needed 07/15/2018 10/12/2018 Inactive Diflucan 150 mg tablet RxNorm: 865001 1 Tablet(s) PO Q72H 07/15/2018 09/05/2018 Inactive nystatin 100,000 unit/gram topical cream RxNorm: 598809 1 Gram( s) TOP BID 07/15/2018 09/05/2018 Inactive Plavix 75 mg tablet RxNorm: 007606 1 Tablet(s) PO QD 07/15/201810/12 Inactive cyclobenzaprine 10 mg tablet RxNorm: 888742 1 Tablet(s) PO QHS as needed 06/10/2018 06/09/2018 Inactive cyclobenzaprine 10 mg tablet RxNorm: 646172 TAKE ONE TA BLET BY MOUTH EVERY NIGHT AT BEDTIME NEEDED 05/10/2018 06/10/2018 Inactive mupirocin 2 % topical ointment RxNorm: 603074 1 Application TOP BID 2018 05/25/2018 Inactive 22 gram cyclobenzaprine 10 mg tablet RxNorm: 013528 1 Tablet(s) PO QHS as needed 04/14/2018 06/09/2018 Inactive doxycycline hyclate 100 mg tablet RxNorm: 9564256 1 Tablet(s) PO BI D 04/14/2018 04/23/2018 Inactive cyclobenzaprine 10 mg tablet RxNorm: 426564 1 Tablet(s) PO QHS as needed 04/07/2018 04/13/2018 Inactive Bactrim DS 800 mg-160 mg tablet RxNorm: 375621 1 Tablet(s) PO BID 0 03/18/2018 03/27/2018 Inactive cyclobenzaprine 10 mg tablet RxNorm: 576491 1 Tablet(s) PO QHS as needed 03/18/2018 04/06/2018 Inactive triamcinolone acetonide 0.1 % topical cream RxNorm: 6661280 APPLY TO AFFECTED AREA(S) TWO TIMES A DAY 02/03/2018 02/12/2018 Inactive triamcinolone acetonide 0.1 % topical cream RxNorm: 0227909 1 Application TOP BID 01/26/2018 02/02/2018 Inactive Medrol (Brenden) 4 mg tablets in a dose pack RxNorm: 149289 TAKE BY MOUTH INSTRUCTED - PER PACKAGE INSTRUCTIONS 12/11/2017 12/16/2017 Inactive Medrol (Brenden) 4 mg tablets in a dose pack RxNorm: 120654 Tablet(s) P O 10/06/2017 12/10/2017 Inactive Lunesta 3 mg tablet RxNorm: 398737 1 Tablet(s) PO QHS 11/25/201608/2016 Inactive Lunesta 3 mg tablet RxNorm: 494848 1 Tablet(s) PO QHS 11/14/201610/2016 Inactive Bactrim DS 800 mg-160 mg tablet RxNorm: 708349 1 Tablet(s) PO BID 0 11/14/2016 11/23/2016 Inactive Epi E-Z Pen 0.3 mg/0.3 mL injection, auto-injector RxNorm: 1 987210 Milliliter(s) IM Use as Directed 06/25/2016 09/05/2018 Inactive amoxicillin 875 mg tablet RxNorm: 523401 1 Tablet(s) PO BID 017 04/11/2016 Inactive prednisone 20 mg tablet RxNorm: 596425 1 Tablet(s) PO BID 04/02/2016 04/06/2016 Inactive azithromycin 250 mg tablet RxNorm: 812982 2 Tablet(s) P O on day one then 1 tab on days 2-5 11/29/2015 11/28/2015 Inactive Medrol (Brenden) 4 mg tablets in a dose pack RxNorm: 531777 Take as directed 11/29/2015 11/13/2016 Inactive meloxicam 15 mg tablet RxNorm: 627567 1 Tablet(s) PO QD 07/02/2015 Inactive Chantix Starting Month Box 0.5 mg (11)-1 mg (42) table ts in dose pack RxNorm: 945049 Tablet(s) PO As Directed 06/20/2015 07/10/2015 Inactive omeprazole 40 mg capsule,delayed release RxNorm: 318938 1 Capsu le(s) PO QD 05/31/2015 11/13/2016 Inactive omeprazole 40 mg capsule,delayed release RxNorm: 432711 1 Capsu le(s) PO QD 05/31/2015 05/30/2015 Inactive Lactobacillus acidophilus-Bifidobacterium longum oral RxNorm: oral No Start Date Active Multivitamin And Mineral oral RxNorm: oral No Start Date Active Wellbutrin SR 150 mg tablet,sustained-release RxNorm: 692409 1 Tablet(s) PO BID No Start Date 11/13/2016 Inactive gabapentin 100 mg capsule RxNorm: 018317 1 Capsule(s) PO TID No Sta rt Date 03/17/2018 Inactive Chantix Starting Month Box 0.5 mg (11)-1 mg (42) table ts in dose pack RxNorm: 082061 Tablet(s) PO As Directed No Start Date 06/19/2015 Inactive Eliquis 5 mg tablet RxNorm: 9812173 1 Tablet(s) PO BID No Start Date 03/17/2018 Inactive aspirin 325 mg tablet RxNorm: 726780 1 Tablet(s) PO QD No Start Date 11/13/2016 Inactive clindamycin HCl 300 mg capsule RxNorm: 877532 2 Capsule(s) PO Q8H N o Start Date 03/17/2018 Inactive Fish Oil 1,000 mg (120 mg-180 mg) capsule RxNorm: 1 Caps ule(s) PO QD No Start Date 09/05/2018 Inactive aspirin 81 mg tablet RxNorm: 986770 1 Tablet(s) PO QD No Start Date 1 03/28/2017 Inactive Fish Oil 1,000 mg capsule RxNorm: 1 Capsule(s) PO QD No Start Date 11/13/2016 Inactive Baby Aspirin 81 mg chewable tablet RxNorm: 572284 1 Tablet(s) P O BID No Start Date 02/02/2017 Inactive Xarelto 10 mg tablet RxNorm: 1501845 1 Tablet(s) PO QD No Start Date 01/25/2018 Inactive tramadol 50 mg tablet RxNorm: 915425 1-2 Tablet(s) PO Q6H No Start Date 03/17/2018 Inactive meloxicam 15 mg tablet RxNorm: 595590 1 Tablet(s) PO QD No Start Da te 07/01/2015 Inactive Epi E-Z Pen 0.3 mg/0.3 mL injection, auto-injector RxNorm: 1 338236 Milliliter(s) IM Use as Directed No Start Date 06/24/2016 Inactive Plavix 75 mg tablet RxNorm: 933285 1 Tablet(s) PO QD No Start Date Inactive Medication Administered No Medication Administered data Immunizations No Immunization data Results Observation Observation Code Item Item Code Result Date [facility] COMPREHENSIVE METABOLIC 54968 AST 25 U/L 2018 Unknown COMPREHENSIVE METABOLIC 69893 ALT 28 U/L 2018 Unknown COMPREHENSIVE METABOLIC 16023 BUN 13 mg/dL 2018 Unknown COMPREHENSIVE METABOLIC 54863 ALBUMIN 4.2 g/dL 2018 Unknown COMPREHENSIVE METABOLIC 88162 CHLORIDE 104 mmol/L 11/09 Unknown COMPREHENSIVE METABOLIC 09141 Bili Total 0.5 mg/dL 11/09 Unknown COMPREHENSIVE METABOLIC 58101 ALK PHOS 72 U/L 2018 Unknown COMPREHENSIVE METABOLIC 92468 SODIUM 139 mmol/L 11/09 Unknown COMPREHENSIVE METABOLIC 67608 CREATININE 0.98 mg/dL 10/18 Unknown COMPREHENSIVE METABOLIC 29404 CALCIUM 9.1 mg/dL 2018 Unknown COMPREHENSIVE METABOLIC 24637 POTASSIUM 3.7 mmol/L 11/09 Unknown COMPREHENSIVE METABOLIC 05780 Total Protein 7.2 g/dL Unknown COMPREHENSIVE METABOLIC 31838 Glucose 137 mg/dL 2018 Unknown COMPREHENSIVE METABOLIC 04956 Bicarbonate 24 mmol/L 10/18 Unknown COMPREHENSIVE METABOLIC 94485 AGAP 11 mmol/L 2018 Unknown COMPLETE BLOOD COUNT [id number] WBC 4.6 10e9/L 11/10/19 19 Unknown COMPLETE BLOOD COUNT [id number] RBC 4.88 10e12/L 2018 Unknown COMPLETE BLOOD COUNT [id number] HEMOGLOBIN 14.7 g/dL 11/10/19 19 Unknown COMPLETE BLOOD COUNT [id number] HEMATOCRIT 43.7 % 11/10/19 19 Unknown COMPLETE BLOOD COUNT [id number] MCV 89.5 fL 9 Unknown COMPLETE BLOOD COUNT 1017385 MCH 30.1 pg 9 Unknown COMPLETE BLOOD COUNT 2404059 MCHC 33.6 g/dL 9 Unknown COMPLETE BLOOD COUNT [id number] PLATELET COUNT 179 10e9/L Unknown COMPLETE BLOOD COUNT 7671497 Mean Plt Volume 11.6 fL Unknown COMPLETE BLOOD COUNT 0826210 Neut Auto 55.5 % 9 Unknown COMPLETE BLOOD COUNT [id number] Lymph Auto 28.7 % 11/10/19 19 Unknown COMPLETE BLOOD COUNT [id number] Rabun Auto 7.9 % 9 Unknown COMPLETE BLOOD COUNT 7499122 RDW 13.2 % 9 Unknown COMPLETE BLOOD COUNT 3888483 Eos Auto 7.7 % 9 Unknown COMPLETE BLOOD COUNT 3686981 Baso Auto 0.2 % 9 Unknown COMPLETE BLOOD COUNT 2854878 Neutrophil Abs 2.55 10e9/L Unknown COMPLETE BLOOD COUNT [id number] Lymphocyte Abs 1.32 10e9/L Unknown COMPLETE BLOOD COUNT [id number] Monocyte Abs 0.36 10e9/L 10/18 Unknown COMPLETE BLOOD COUNT [id number] Eosinophil Abs 0.35 10e9/L Unknown COMPLETE BLOOD COUNT [id number] RDW-SD 42.2 fL 9 Unknown COMPLETE BLOOD COUNT 6064050 Basophil Abs 0.01 10e9/L 10/18 Unknown [facility] 30702 Cholesterol 205 mg/dL 11/09/2018 Unkno wn LIPID GROUP 05494 Triglyceride 268 mg/dL 11/09/2018 Unkn own LIPID GROUP 08561 HDL CHOLESTEROL 35 mg/dL 11/09/2018 U nknown LIPID GROUP 85751 Chol/HDL Ratio 5.86 ratio 11/09/2018 U nknown LIPID GROUP 41194 NON-HDL Chol 170 mg/dL 11/09/2018 Unkn own LIP[facility] GROUP 07868 LDL Cholesterol 116 mg/dL 11/09/2018 U nknown PT [id number] PT 12.7 Seconds 11/09/2018 Unknow n PT [id number] INR 0.9 11/09/2018 Unknown GFR CALC 3137051 GFR Non Afr Amr >60 mL/min 11/09/2018 Un known GFR CALC 1411046 GFR Afr Amr >60 mL/min 11/09/2018 Unknow n ACT PARTIAL THRMBOPLASTIN TIME 51828 PTT 34.0 Sec[place] nds 11/09/2018 Unknown LIPID GROUP 14917 Cholesterol 186 mg/dL 2018 Unkno wn LIPID GROUP 71661 Triglyceride 229 mg/dL 2018 Unkn own LIPID GROUP 89150 HDL CHOLESTEROL 36 mg/dL 2018 U nknown LIP[facility] GROUP 57251 Chol/HDL Ratio 5.17 ratio 2018 U nknown LIPID GROUP 10715 NON-HDL Chol 150 mg/dL 2018 Unkn own LIPID GROUP 64740 LDL Cholesterol 104 mg/dL 2018 U nknown GFR CALC 3764096 GFR Non Afr Amr >60 mL/min 2018 Un known GFR CALC 8740193 GFR Afr Amr >60 mL/min 2018 Unknow n COMPREHENSIVE METABOLIC 41061 AST 23 U/L 2018 Unknown COMPREHENSIVE METABOLIC 46073 ALT 22 U/L 2018 Unknown COMPREHENSIVE METABOLIC 88248 BUN 15 mg/dL 2018 Unknown COMPREHENSIVE METABOLIC 62898 ALBUMIN 4.1 g/dL 2018 Unknown COMPREHENSIVE METABOLIC 76257 CHLORIDE 106 mmol/L 05/06 Unknown COMPREHENSIVE METABOLIC 74832 Bili Total 0.6 mg/dL 05/06 Unknown COMPREHENSIVE METABOLIC 90063 ALK PHOS 61 U/L 2018 Unknown COMPREHENSIVE METABOLIC 20797 SODIUM 141 mmol/L 05/06 Unknown COMPREHENSIVE METABOLIC 65322 CREATININE 0.91 mg/dL 04/17 Unknown COMPREHENSIVE METABOLIC 80718 CALCIUM 9.2 mg/dL 2018 Unknown COMPREHENSIVE METABOLIC 42279 POTASSIUM 3.8 mmol/L 05/06 Unknown COMPREHENSIVE METABOLIC 05655 Total Protein 7.0 g/dL Unknown COMPREHENSIVE METABOLIC 01649 Glucose 97 mg/dL 2018 Unknown COMPREHENSIVE METABOLIC 15267 Bicarbonate 28 mmol/L 04/17 Unknown COMPREHENSIVE METABOLIC 11246 AGAP 7 mmol/L 2018 Unknown THYROID STIMULATING HORMONE 99108 TSH 2.094 uIU/mL 2018 Unknown COMPLETE BLOOD COUNT 2397238 WBC 5.5 10e9/L 05/07/19 19 Unknown COMPLETE BLOOD COUNT [id number] RBC 4.61 10e12/L 2018 Unknown COMPLETE BLOOD COUNT 6342647 HEMOGLOBIN 13.6 g/dL 05/07/19 19 Unknown COMPLETE BLOOD COUNT 5294611 HEMATOCRIT 40.0 % 05/07/19 19 Unknown COMPLETE BLOOD COUNT 9238865 MCV 86.8 fL 9 Unknown COMPLETE BLOOD COUNT 8840115 MCH 29.5 pg 9 Unknown COMPLETE BLOOD COUNT 4020745 MCHC 34.0 g/dL 9 Unknown COMPLETE BLOOD COUNT 1288603 PLATELET COUNT 197 10e9/L Unknown COMPLETE BLOOD COUNT 4169041 Mean Plt Volume 10.8 fL Unknown COMPLETE BLOOD COUNT 4902723 Neut Auto 49.6 % 9 Unknown COMPLETE BLOOD COUNT 5430867 Lymph Auto 36.8 % 05/07/19 19 Unknown COMPLETE BLOOD COUNT 2490810 Rabun Auto 8.1 % 9 Unknown COMPLETE BLOOD COUNT 9597767 RDW 15.3 % 9 Unknown COMPLETE BLOOD COUNT 0793424 Eos Auto 5.3 % 9 Unknown COMPLETE BLOOD COUNT 3309509 Baso Auto 0.2 % 9 Unknown COMPLETE BLOOD COUNT 5389113 Neutrophil Abs 2.73 10e9/L Unknown COMPLETE BLOOD COUNT 1344036 Lymphocyte Abs 2.02 10e9/L Unknown COMPLETE BLOOD COUNT 9348419 Monocyte Abs 0.45 10e9/L 04/17 Unknown COMPLETE BLOOD COUNT 5372045 Eosinophil Abs 0.29 10e9/L Unknown COMPLETE BLOOD COUNT 4384359 RDW-SD 47.9 fL 9 Unknown COMPLETE BLOOD COUNT [id number] Basophil Abs 0.01 10e9/L 04/17 Unknown Procedures Procedure Codes Date CEFTRIAXONE SODIUM INJECTION CPT-4: J0696 11/09/2018 THER/PROPH/DIAG INJ SC/IM CPT-4: 00794 11/09/2018 ROUTINE VENIPUNCTURE CPT-4: 47537 11/09/2018 COMPREHEN METABOLIC PANEL CPT-4: 80255 11/09/2018 COMPLETE CBC W/AUTO DIFF WBC CPT-4: 38038 11/09/2018 LIPID PANEL CPT-4: 95384 11/09/2018 PROTHROMBIN TIME CPT-4: 65564 11/09/2018 THROMBOPLASTIN TIME PARTIAL CPT-4: 26032 11/09/2018 THER/PROPH/DIAG INJ SC/IM CPT-4: 34514 09/23/2018 KETOROLAC TROMETHAMINE INJ CPT-4: J1885 09/23/2018 ROUTINE VENIPUNCTURE CPT-4: 38363 2018 ASSAY THYROID STIM HORMONE CPT-4: 90117 2018 COMPREHEN METABOLIC PANEL CPT-4: 47771 2018 COMPLETE CBC W/AUTO DIFF WBC CPT-4: 06421 2018 LIPID PANEL CPT-4: 28684 2018 CEFTRIAXONE SODIUM INJECTION CPT-4: J0696 04/14/2018 THER/PROPH/DIAG INJ SC/IM CPT-4: 13101 04/14/2018 CEFTRIAXONE SODIUM INJECTION CPT-4: J0696 03/18/2018 THER/PROPH/DIAG INJ SC/IM CPT-4: 66955 03/18/2018 THER/PROPH/DIAG INJ SC/IM CPT-4: 19365 01/26/2018 KETOROLAC TROMETHAMINE INJ CPT-4: J1885 01/26/2018 CEFTRIAXONE SODIUM INJECTION CPT-4: J0696 12/22/2017 THER/PROPH/DIAG INJ SC/IM CPT-4: 16333 12/22/2017 ROUTINE VENIPUNCTURE CPT-4: 67831 11/14/2016 COMPLETE CBC W/AUTO DIFF WBC CPT-4: 09098 11/14/2016 PT/PTT CPT-4: 1581674 11/14/2016 Vital Signs Date Vital 04/11/2019 Blood Pressure 1: 152/86 Code: 8480-6 Heart Rate 1: 100 bpm Respiratory Rate: 20 bpm SpO2: 96% Temperature: 37.0 (C) / 98.6 (F) We ight: 192 lbs 03/01/2019 Blood Pressure 1: 134/82 Code: 8480-6 BMI: 23.9 Code: 82495-7 Heart Rate 1: 100 bpm Height: 6'4" [...] 1: 138/70 Code: 8480-6 BMI: 22.6 Code: 17543-8 Heart Rate 1: 97 bpm Height: 6'4" [...] 1: 142/80 Code: 8480-6 BMI: 20.9 Code: 18753-2 Heart Rate 1: 108 bpm Height: 6'4" Respiratory Rate: 20 bpm SpO2: 97% Tempera ture: 36.6 (C) / 97.9 (F) Weight: 172 lbs 01/26/2018 Blood Pressure 1: 130/82 Code: 8480-6 Heart Rate 1: 98 bpm Respiratory Rate: 18 bpm SpO2: 99% Temperature: 35.7 (C) / 96.3 (F) We ight: 175 lbs 12/22/2017 Blood Pressure 1: 124/68 Code: 8480-6 BMI: 22.3 Code: 65229-8 Heart Rate 1: 100 bpm Height: 6'4" Respiratory Rate: 20 bpm SpO2: 98% Tempera ture: 36.7 (C) / 98.0 (F) Weight: 183 lbs 10/06/2017 Blood Pressure 1: 130/86 Code: 8480-6 BMI: 21.1 Code: 13768-1 Heart Rate 1: 92 bpm Height: 6'4" Respiratory Rate: 18 bpm SpO2: 98% Tempera ture: 36.9 (C) / 98.5 (F) Weight: 173 lbs 02/03/2017 Blood Pressure 1: 144/92 Code: 8480-6 BMI: 20.8 Code: 84413-2 Heart Rate 1: 88 bpm Height: 6'4" Respiratory Rate: 20 bpm SpO2: 97% Tempera ture: 36.7 (C) / 98.1 (F) Weight: 171 lbs 11/25/2016 Blood Pressure 1: 126/84 Code: 8480-6 Heart Rate 1: 76 bpm Respiratory Rate: 20 bpm SpO2: 96% Temperature: 36.9 (C) / 98.4 (F) We ight: 170 lbs 11/14/2016 Blood Pressure 1: 126/82 Code: 8480-6 BMI: 20.7 Code: 21956-1 Heart Rate 1: 86 bpm Height: 6'4" Respiratory Rate: 18 bpm SpO2: 96% Tempera ture: 35.8 (C) / 96.5 (F) Weight: 170 lbs 04/02/2016 Blood Pressure 1: 124/78 Code: 8480-6 Heart Rate 1: 88 bpm Respiratory Rate: 24 bpm SpO2: 97% Temperature: 36.1 (C) / 97.0 (F) We ight: 161 lbs 11/29/2015 Blood Pressure 1: 124/68 Code: 8480-6 BMI: 19.2 Code: 30214-3 Heart Rate 1: 94 bpm Height: 6'4" Respiratory Rate: 18 bpm SpO2: 97% Tempera ture: 36.1 (C) / 97.0 (F) Weight: 158 lbs 06/27/2015 Blood Pressure 1: 128/78 Code: 8480-6 BMI: 18.7 Code: 91714-0 Heart Rate 1: 72 bpm Height: 6'4" Respiratory Rate: 22 bpm SpO2: 98% Tempera ture: 35.9 (C) / 96.6 (F) Weight: 154 lbs 05/24/2015 Blood Pressure 1: 112/78 Code: 8480-6 BMI: 19.7 Code: 09311-0 Heart Rate 1: 78 bpm Height: 6'4" [...] care Encounters Encounter Performer Location Codes Date ([id number]) OFFICE/OUTPATIENT VISIT EST Diagnosis: DM w/o complication type II, uncontrolled[ICD10: E11.65] Diagnosis: 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, implant, or graft[ICD10: T85.818A] Diagnosis: Essential hypertension[ICD10: I10] Janneth RAY Grupo [facility] SHRESTHA Dime CPT-4: 40034 04/11/2019 ([id number]) OFFICE/OUTPATIENT VISIT EST Diagnosis: Sinus tachycardia[ICD10: R00.0] Diagnosis: Folliculitis[ICD10: L73.9] Janneth TAFOYAER [employer] [facility] CPT-4: 18779 03/01/2019 ([id number]) OFFICE/OUTPATIENT VISIT EST Diagnosis: Cellulitis of left lower limb[ICD10: L03.116] Diagnosis: Tendinitis of left peroneus longus tendon[ICD10: M76.72] Janneth CLARK [facility] CPT-4: 09266 11/18/2018 ([id number]) OFFICE/OUTPATIENT VISIT EST Diagnosis: Cellulitis of left foot[ICD10: L03.116] Diagnosis: Spontaneous ecchymoses[ICD10: R23.3] Diagnosis: Venous insufficiency (chronic) (peripheral)[ICD10: I87.2] Diagnosis: Mixed hyperlipidemia[ICD10: E78.2] Vania RAY [employer] [facility] SHRESTHA [facility] CPT-4: 18099 11/09/2018 ([id number]) OFFICE/OUTPATIENT VISIT EST Diagnosis: Venous insufficiency (chronic) (peripheral)[ICD10: I87.2] Diagnosis: Cellulitis of left lower limb[ICD10: L03.116] Diagnosis: Pain in right foot[ICD10: M79.671] Vania RAY [facility] CPT-4: 68810 10/13/2018 ([id number]) OFFICE/OUTPATIENT VISIT EST Diagnosis: Low back pain[ICD10: M54.5] Vania WARD S. Brandon [facility] Dime CPT-4: 18382 09/23/2018 ([id number]) OFFICE/OUTPATIENT VISIT EST Diagnosis: Gastro-esophageal reflux disease without esophagitis[ICD10: K21.9] Diagnosis: Dysphagia, pharyngoesophageal phase[ICD10: R13.14] Janneth SHRESTHA [employer] [facility] CPT-4: 12056 09/06/2018 ([id number]) OFFICE/OUTPATIENT VISIT EST Diagnosis: Tinea corporis[ICD10: B35.4] Vania SHRESTHA DO [facility] CPT-4: 03854 07/15/2018 ([id number]) OFFICE/OUTPATIENT VISIT EST Diagnosis: Cellulitis of left toe[ICD10: L03.032] Diagnosis: Mixed hyperlipidemia[ICD10: E78.2] Mandy SHRESTHA [facility] CPT-4: 85774 2018 OFFICE/OUTPATIENT VISIT EST Diagnosis: Cellulitis of left toe[ICD10: L03.032] Diagnosis: Unspecified disturbances of skin sensation[ICD10: R20.9] Mandy SHRESTHA [facility] CPT-4: 61288 04/14/2018 ([id number]) OFFICE/OUTPATIENT VISIT EST Diagnosis: Cellulitis of left toe[ICD10: L03.032] Diagnosis: Insomnia, unspecified[ICD10: G47.00] Vania SHRESTHA [employer] [facility] CPT-4: 59721 03/18/2018 ([id number]) OFFICE/OUTPATIENT VISIT EST Diagnosis: Other postprocedural complications and disorders of the circulatory system, not elsewhere classified[ICD10: I97.89] Diagnosis: Rash and other nonspecific skin eruption[ICD10: R21] Diagnosis: Pain in right leg[ICD10: M79.604] Vania SHRESTHA [employer] [facility] CPT-4: 24635 01/26/2018 ([id number]) OFFICE/OUTPATIENT VISIT EST Diagnosis: Other postprocedural complications and disorders of the circulatory system, not elsewhere classified[ICD10: I97.89] Diagnosis: Cellulitis of right lower limb[ICD10: L03.115] Vania SHRESTHA [employer] [facility] CPT-4: 34624 12/22/2017 ([id number]) OFFICE/OUTPATIENT VISIT EST Diagnosis: Acute sinusitis, unspecified[ICD10: J01.90] Diagnosis: Unspecified disturbances of skin sensation[ICD10: R20.9] Vania SHRESTHA [employer] [facility] CPT-4: 61341 10/06/2017 ([id number]) OFFICE/OUTPATIENT VISIT EST Diagnosis: Primary insomnia[ICD10: F51.01] Diagnosis: Pain in left shoulder[ICD10: M25.512] Diagnosis: Poisoning by other parasympatholytics [anticholinergics and antimuscarinics] and spasmolytics, accidental (unintentional), sequela[ICD10: T44.3X1S] Janneth SHRESTHA [employer] [facility] CPT-4: 39257 02/03/2017 OFFICE/OUTPATIENT VISIT EST Diagnosis: Insomnia, unspecified[ICD10: G47.00] Diagnosis: Constipation, unspecified[ICD10: K59.00] Diagnosis: Spontaneous ecchymoses[ICD10: R23.3] Diagnosis: Pain in left foot[ICD10: M79.672] Vania SHRESTHA [employer] [facility] CPT-4: 14134 11/25/2016 OFFICE/OUTPATIENT VISIT EST Diagnosis: Insomnia, unspecified[ICD10: G47.00] Diagnosis: Constipation, unspecified[ICD10: K59.00] Diagnosis: Spontaneous ecchymoses[ICD10: R23.3] Diagnosis: Other specified local infections of the skin and subcutaneous tissue[ICD10: L08.89] Vania SHRESTHA [employer] [facility] CPT-4: 99 213 11/14/2016 ([id number]) OFFICE/OUTPATIENT VISIT EST Diagnosis: Acute upper respiratory infection, unspecified[ICD10: J06.9] Ester SHRESTHA [employer] [facility] CPT-4: 15088 04/02/2016 ([id number]) OFFICE/OUTPATIENT VISIT EST Diagnosis: Acute upper respiratory infection, unspecified[ICD10: J06.9] Ester SHRESTHA [employer] [facility] CPT-4: 51443 11/29/2015 ([id number]) OFFICE/OUTPATIENT VISIT EST Diagnosis: Pain in thoracic spine[ICD10: M54.6] Diagnosis: Paresthesia of skin[ICD10: R20.2] Diagnosis: Dysphagia, unspecified[ICD10: R13.10] Ester SHRESTHA DO [facility] [employer] CPT-4: 47747 06/27/2015 ([id number]) OFFICE/OUTPATIENT VISIT NEW Diagnosis: Pain in left leg[ICD10: M79.605] Diagnosis: Male erectile dysfunction, unspecified[ICD10: N52.9] Diagnosis: Dysphagia, unspecified[ICD10: R13.10] Ester SHRESTHA DO [facility] CPT-4: 63932 05/24/2015 Plan of Care Planned Activity Notes [...] ICD-9 : 996.70 ICD-10 : T85.818A 04/11/2019 Patient Education: metoprolol succinate- [employer] Co upon [id number] https://www.[employer]/resources/getResource/[email or web address] Completed 04/11/2019 Patient Education: Metformin Patient Savings Message Alert Completed 04/11/2019 Patient Education: cephalexin- [employer] Coupon [phone] https://www.[employer]/resources/getResource/61/[email or web address] Completed 04/11/2019 Visit Diagnosis Plan: Folliculitis Discussion: Bactrim and topical bactroban ICD-9 : 704.8 ICD-10 : L73.9 03/01/2019 Visit Diagnosis Plan: Sinus tachycardia Discussion: St art low dose metoprolol ER 25mg daily Monitor pulse Sees Cardiology next month ICD-9 : 427.89 ICD-10 : R00.0 03/01/2019 Appointment: Janneth Shrestha WPtel: [address] [place], [place] [phone] [place] FOLLOW UP 03/01/2019 Patient Education: mupirocin- [employer] Coupon [phone] https://www.[employer]/resources/getResource/61/[email or web address] Completed 03/01/2019 Appointment: Janneth Shrestha WPtel: 55 [place] [address] [place] CANCELED 12/20/2018 Visit Diagnosis Plan: Tendinitis [...] ICD-10 : L03.116 11/18/2018 Appointment: Vania García [address] [place] [address] [place] CANCELED 11/18/2018 Appointment: Janneth Shrestha WPtel: [address] [place], [place] [id number] [place] FOLLOW UP 11/18/2018 Patient Education: doxycycline monohydrate- [employer] C[employer]on [id number] https://www.[employer]/LTG Exam Prep Platform/resources/getResource/61/asl22678-o0r5-84s2-2w Completed 11/18/2018 Patient Education: prednisone- [employer] Coupon [id number] https://www.[employer]/samplemd/resources/getResource/61/81nk0m0a-7nq8-9467-qm Completed 11/18/2018 Care Plan: Referral Order SNOMED-CT : 30 0635694 Pending 11/18/2018 Visit Diagnosis Plan: Venous insufficiency [...] in an ED whether it be [place] or wherever he's traveling. discussed the risk of bone involvement and the importance of having it evaluated if worsens. follow up in office when he returns though if no worsening symptoms. ICD-9 : 682.7 ICD-10 : L03.116 11/09/2018 Appointment: Vania García [address] [place], [place] [id number] [place] ACUTE ILLNESS 11/09/2018 Patient Education: clindamycin HCl- [employer] Coupon [id number] https://www.samplemd.com/samplemd/resources/getResource/61/54zj35v1-nj63-7xt0-4y Completed 11/09/2018 Appointment: Janneth Shrestha WPtel: [address] [facility] [place] CANCELED 10/19/2018 Visit Diagnosis Plan: Cellulitis [...] ICD-10 : M79.671 10/13/2018 Appointment: Vania García [address] [place], [place] [address] Patient cant pay copay till when he [...] ICD-10 : M54.5 09/23/2018 Appointment: Vania García [address] [place], [place] [address] ACUTE ILLNESS 09/23/2018 Patient Education: Medrol ([place])- [employer] Coupon [phone] [id number] https://www.[employer]/LTG Exam Prep Platform/resources/getResource/61/fcxl087u-6207-48y5-26 Completed 09/23/2018 Visit Diagnosis Plan: Dysphagia, pharyngoesophageal ph ase Discussion: Referral for EGD ICD-9 : 787.24 ICD-10 : R13.14 09/06/2018 Visit Diagnosis Plan: Gastro-esophageal reflux disease without esophagitis Discussion: Start omeprazole ICD-9 : 530.81 ICD-10 : K21.9 09/06/2018 Appointment: [facility]restha [facility]el[facility] [facility] ACUTE ILLNESS 09/06/2018 Patient Education: omeprazole- [employer] Coupon [id number] https://www.[employer]/LTG Exam Prep Platform/resources/getResource/61/712sj909-22e9-289f-85 Completed 09/06/2018 Care Plan: Referral Order SNOMED-CT : 30 6343429 Pending 09/06/2018 Visit Diagnosis Plan: Tinea corporis Discussion: nysta tin to be used bid until rash gone and then an additional 2 days. diflucan every 3 days for 3 doses. keep area clean and dry with no moisturizers. call office if no improvement in 2 weeks or if worsening. ICD-9 : 110.5 ICD-10 : B35.4 07/15/2018 Appointment: Vania García [address] ACUTE ILLNESS 07/15/2018 Patient Education: nystatin- [employer] Coupon [id number] https://www.[employer]/sampleBackupAgent/resources/getResource/61/69god367-i9qe-71be-2p Completed 07/15/2018 Patient Education: Plavix- [employer] Coupon 40043135 https://www.[employer]/LTG Exam Prep Platform/resources/getResource/61/00rk0l69-c37z-36hr-26 fa-q378z0968992.pdf Completed 07/15/2018 Patient Education: cyclobenzaprine- [employer] Coupon 15548407 https://www.[employer]/sampleBackupAgent/resources/getResource/61/78767f9g-6s12-28q9-ag Completed 07/15/2018 Visit Diagnosis Plan: Cellulitis of [...] : L03.032 2018 Appointment: Mandy Hollins [address] FOLLOW UP 2018 Patient Education: mupirocin- [employer] Coupon [id number] https://www.[employer]/sampleBackupAgent/resources/getResource/61/k7dl07m6-2724-8288-0k Completed 2018 Visit Diagnosis Plan: Cellulitis of [...] : R20.9 04/14/2018 Appointment: Mandy Hollins [address] FOLLOW UP 04/14/2018 Visit Diagnosis Plan: Insomnia, [...] : L03.032 03/18/2018 Appointment: Vania García [address] ACUTE ILLNESS 03/18/2018 Patient Education: cyclobenzaprine- [employer] Coupon [id number] https://www.LTG Exam Prep Platform.com/samplemd/resources/getResource/61/3109e875-5aa0-955q-q3 Completed 03/18/2018 Visit Diagnosis Plan: Rash and other nonspecific skin eruption Discussion: triamcinolone ordered to be used as directed. ICD-9 : 782.1 ICD-10 : R21 01/26/2018 Visit Diagnosis Plan: Other postprocedur al complications and disorders of the circulatory system, not elsewhere classified Discussion: discussed with dr. shrestha and patient was instructed to contact the [place] [facility]. due to uncontrolled pain, continued erythema, patient needs to be re-evaluated by the surgeon. 60 mg toradol given to patient. patient verbalized understanding and voiced he will contact them today for an appointment. ICD-9 : 997.1 ICD-10 : I97.89 01/26/2018 Appointment: Vania García 504 [facility] Hospital Follow Up 01/26/2018 Appointment: Janneth Shrestha WPtel: [address] [facility] NO SHOW 01/06/2018 Visit Diagnosis Plan: [...] : I97.89 12/22/2017 Appointment: Vania García 504 [facility] ACUTE ILLNESS 12/22/2017 Visit Diagnosis Plan: Acute [...] ICD-10 : R20.9 10/06/2017 Appointment: Vania García 504 [facility] ACUTE ILLNESS 10/06/2017 Patient Education: Patient Medication Summary Completed 10/06/2017 Appointment: Vania García 504 [facility] ER Follow UP 08/17/2017 Appointment: Vania García 504 [facility] [place] CANCELED 07/03/2017 Appointment: Janneth Shrestha WPtel: [facility] [place] [address] [place] canceled at 8:05 this morning. CANCELED [...] : M25.512 02/03/2017 Appointment: Janneth Shrestha WPtel: [facility] Hospital Follow Up 02/03/2017 Patient Education: Patient [...] Discussion: re isabella sent for dr rose manager special events. ICD-9 : 729.5 ICD-10 : M79.672 11/25/2016 Visit Diagnosis Plan: Spontaneous ecchymoses Discussio n: labs wnl. instructed patient on side effects of plavix and aspirin. will continue to monitor. educated on being careful with movements to prevent injuries. ICD-9 : 782.7 ICD-10 : R23.3 11/25/2016 Appointment: Vania García [address] [id number] [place] FOLLOW UP 11/25/2016 Patient Education: Patient Medication [...] : R23.3 11/14/2016 Appointment: Vania García [address] [facility] [id number] ACUTE ILLNESS 11/14/2016 Patient Education: Patient Medication Summary Completed 11/14/2016 Visit Diagnosis Plan: Acute upper respiratory infectio n, unspecified Discussion: Rxs as above Continue OTC and supportive meds Encouraged smoking cessation Follow up PRN ICD-9 : 465.9 ICD-10 : J06.9 04/02/2016 Appointment: Ester Grande 2[address] [facility] ACUTE ILLNESS 04/02/2016 Patient Education: Patient Medication Summary Completed 04/02/2016 Visit Plan: Rxs as above Supportive care reviewed Follow up PRN 11/29/2015 Appointment: Ester Grande [facility]66[facility] 11/27 confirmed~ ACUTE ILLNESS 11/29/2015 Patient Education: [...] for pain 06/27/2015 Appointment: Tanner Grandefany Yessi [facility]6[address] 06/25 ~ 06/26 phone not on~ FOLLOW UP 06/27/2015 Patient Education: Patient Medication Summary Completed 06/27/2015 Care Plan: X-RAY EXAM RIBS UNI 2 VIEWS L OINC : 12747-3 Pending 06/27/2015 Referral: Héctor Woodard WPtel: [address] [facility] 05/29 Scheduled with sena [facility] Appointment Re quested 06/26/2015 Referral: Cameron Khanna WPtel: [address] [facility] [place] Referral Initiated 06/11/2015 Referral: Marco Antonio Green WPtel: [address] [id number] 05/30/15 Needs to be there at pre op time per ~sl Initiated 06/04/2015 Visit Plan: Will get all necessary refer rals set up - CTS, Uro and G/S Swallow study and routine labs ordered Will further investigate left leg pain with EMG if not cardio related 05/24/2015 Appointment: Ester Grande [address] NEW PATIENT 05/24/2015 Patient Education: Patient Medication Summary Completed 05/24/2015 Care Plan: Referral Order SNOMED-CT : 30 6236703 Pending 05/24/2015 Care Plan: Referral Order SNOMED-CT : 30 5696000 Pending 05/24/2015 Care Plan: Referral Order SNOMED-CT : 30 9609207 Pending 05/24/2015 Referral: Sudheer Gann WPtel: [address] [place] [address] [place] Referral Appointment Requested Referral: Alfonzo Andujar WPtel: [address] [place] [address] [place] Referral Initiated Referral: Cameron Khanna WPtel: [address] [place] [address] [place] Referral Appointment Requested Referral: Brianna Rose WPtel: [address] [place] [address] [place] Referral Initiated Referral: Héctor Woodard WPtel: [address] 05/24/15 [facility] office suggested he see another card. ~sl Initiated Referral: Alfonzo Andujar WPtel: [address] [place] [address] [place] Referral Appointment Requested Referral: Marco Antonio Green WPtel: [address] [place] [address] [place] Referral Appointment Requested Instructions Comment . [...]
--- OUTSIDE RECORDS SUMMARY | 2019-08-06 10:30 | XMS REPORT | CCD ---
Author Author [place] Organization JANNETH SHRESTHA DO [facility] Address [address] [place] [address] Phone Unavailable Care Team Providers Care Driver Supervisor Name Role Phone Janneth Shrestha D.O., PP Unavailable CCM Unavailable Summary Purpose Interface Exchange Insurance Providers Payer name Policy type / Coverage type Covered republican ID Effective Begin Date Effective End Date Blue Cross Blue Shield Blue Cross/Blue Shield [id number] Unknown Family History Family History data not found Social History Social History Element Codes Description Effective Dates Marital status Unknown 05/24/2015 Number of children Unknown 2 05/24/2015 Employment Unknown Currently employed 05/24/[address]: [id number] 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 05/24/2015 Allergies, Adverse Reactions, Alerts Substance Reaction Codes Entered Date Inactivated Date Status * NO KNOWN FOOD ALLERGIES Unknown 05/24/2015 No Inactiv e Date Active * NO KNOWN ENVIRONMENTAL ALLERGIES Unknown 05/24/2015 N o Inactive Date Active _ Unknown 05/24/2015 No Inactive Date Active Problems Condition Codes Effective Dates Condition Status Folliculitis ICD-9: 704.8 ICD-10: L73.9 03/01/2019 Active [...] Start Date Stop Date Status Fill Instructions cyclobenzaprine 10 mg tablet RxNorm: 438255 TAKE ONE TA BLET BY MOUTH EVERY NIGHT AT BEDTIME NEEDED 03/11/2019 No Stop Date Active mupirocin 2 % topical ointment RxNorm: 457431 Applicati on Topical two times a day 03/01/2019 No Stop Date Active metoprolol succinate ER 25 mg tablet,extended release 24 hr RxNorm: 383426 1 Tablet(s) Oral QD 03/01/2019 05/30/2019 Active Bactrim DS 800 mg-160 mg tablet RxNorm: 096943 1 Tablet(s) Oral two times a day 03/01/2019 03/11/2019 Inactive Plavix 75 mg tablet RxNorm: 788957 TAKE ONE TABLET BY MOUTH DAILY 1 03/12/2018 No Stop Date Active omeprazole 40 mg capsule,delayed release RxNorm: 418289 TAKE ONE CAPSULE BY MOUTH EVERY NIGHT AT BEDTIME FOR REFLUX 01/10/2019 No Stop Date Active cyclobenzaprine 10 mg tablet RxNorm: 338472 TAKE ONE TA BLET BY MOUTH EVERY NIGHT AT BEDTIME NEEDED 01/10/2019 03/10/2019 Inactive tramadol 50 mg tablet RxNorm: 666365 1 Tablet(s) Oral f our times a day as needed 01/03/2019 01/03/2019 Inactive doxycycline monohydrate 100 mg capsule RxNorm: 4014422 1 Capsule(s) Oral two times a day 11/22/2018 12/13/2018 Inactive prednisone 20 mg tablet RxNorm: 321789 1 Tablet(s) Oral two jn es a day 11/22/2018 11/29/2018 Inactive Levaquin 750 mg tablet RxNorm: 226318 Tablet(s) Oral 11/18/201802/28 Inactive prednisone 20 mg tablet RxNorm: 885863 1 Tablet(s) Oral two jn es a day 11/18/2018 11/21/2018 Inactive tramadol 50 mg tablet RxNorm: 175401 Tablet(s) Oral 11/18/20182018 Inactive doxycycline monohydrate 100 mg capsule RxNorm: 5293553 1 Capsule(s) Oral two times a day 11/18/2018 11/21/2018 Inactive Plavix 75 mg tablet RxNorm: 288304 TAKE ONE TABLET BY MOUTH DAILY 0 11/10/2018 01/08/2019 Inactive clindamycin HCl 300 mg capsule RxNorm: 188273 1 Capsule (s) Oral three times a day 11/09/2018 11/19/2018 Inactive Keflex 500 mg capsule RxNorm: 722297 1 Capsule(s) PO BID 10/13/2018 0 10/22/2018 Inactive Medrol (Brenden) 4 mg tablets in a dose pack RxNorm: 955790 Tablet(s) take as directed PO 09/23/2018 10/12/2018 Inactive omeprazole 40 mg capsule,delayed release RxNorm: 394246 1 Capsule(s) PO QHS for reflux 09/06/2018 11/04/2018 Inactive cyclobenzaprine 10 mg tablet RxNorm: 435028 1 Tablet(s) PO QHS as needed 07/15/2018 10/12/2018 Inactive Diflucan 150 mg tablet RxNorm: 934622 1 Tablet(s) PO Q72H 07/15/2018 09/05/2018 Inactive nystatin 100,000 unit/gram topical cream RxNorm: 585917 1 Gram( s) TOP BID 07/15/2018 09/05/2018 Inactive Plavix 75 mg tablet RxNorm: 897357 1 Tablet(s) PO QD 07/15/201810/12 Inactive cyclobenzaprine 10 mg tablet RxNorm: 199900 1 Tablet(s) PO QHS as needed 06/10/2018 06/09/2018 Inactive cyclobenzaprine 10 mg tablet RxNorm: 283421 TAKE ONE TA BLET BY MOUTH EVERY NIGHT AT BEDTIME NEEDED 05/10/2018 06/10/2018 Inactive mupirocin 2 % topical ointment RxNorm: 309386 1 Application TOP BID 2018 05/25/2018 Inactive 22 gram cyclobenzaprine 10 mg tablet RxNorm: 602952 1 Tablet(s) PO QHS as needed 04/14/2018 06/09/2018 Inactive doxycycline hyclate 100 mg tablet RxNorm: 8919337 1 Tablet(s) PO BI D 04/14/2018 04/23/2018 Inactive cyclobenzaprine 10 mg tablet RxNorm: 622975 1 Tablet(s) PO QHS as needed 04/07/2018 04/13/2018 Inactive Bactrim DS 800 mg-160 mg tablet RxNorm: 486675 1 Tablet(s) PO BID 0 03/18/2018 03/27/2018 Inactive cyclobenzaprine 10 mg tablet RxNorm: 697944 1 Tablet(s) PO QHS as needed 03/18/2018 04/06/2018 Inactive triamcinolone acetonide 0.1 % topical cream RxNorm: 7344890 APPLY TO AFFECTED AREA(S) TWO TIMES A DAY 02/03/2018 02/12/2018 Inactive triamcinolone acetonide 0.1 % topical cream RxNorm: 7687968 1 Application TOP BID 01/26/2018 02/02/2018 Inactive Medrol (Brenden) 4 mg tablets in a dose pack RxNorm: 245166 TAKE BY MOUTH INSTRUCTED - PER PACKAGE INSTRUCTIONS 12/11/2017 12/16/2017 Inactive Medrol (Brenden) 4 mg tablets in a dose pack RxNorm: 956057 Tablet(s) P O 10/06/2017 12/10/2017 Inactive Lunesta 3 mg tablet RxNorm: 001776 1 Tablet(s) PO QHS 11/25/201608/2016 Inactive Lunesta 3 mg tablet RxNorm: 714970 1 Tablet(s) PO QHS 11/14/201610/2016 Inactive Bactrim DS 800 mg-160 mg tablet RxNorm: 388573 1 Tablet(s) PO BID 0 11/14/2016 11/23/2016 Inactive Epi E-Z Pen 0.3 mg/0.3 mL injection, auto-injector RxNorm: 1 780140 Milliliter(s) IM Use as Directed 06/25/2016 09/05/2018 Inactive amoxicillin 875 mg tablet RxNorm: 174166 1 Tablet(s) PO BID 017 04/11/2016 Inactive prednisone 20 mg tablet RxNorm: 246882 1 Tablet(s) PO BID 04/02/2016 04/06/2016 Inactive azithromycin 250 mg tablet RxNorm: 814791 2 Tablet(s) P O on day one then 1 tab on days 2-5 11/29/2015 11/28/2015 Inactive Medrol (Brenden) 4 mg tablets in a dose pack RxNorm: 448156 Take as directed 11/29/2015 11/13/2016 Inactive meloxicam 15 mg tablet RxNorm: 463170 1 Tablet(s) PO QD 07/02/2015 Inactive Chantix Starting Month Box 0.5 mg (11)-1 mg (42) table ts in dose pack RxNorm: 740729 Tablet(s) PO As Directed 06/20/2015 07/10/2015 Inactive omeprazole 40 mg capsule,delayed release RxNorm: 528168 1 Capsu le(s) PO QD 05/31/2015 11/13/2016 Inactive omeprazole 40 mg capsule,delayed release RxNorm: 179302 1 Capsu le(s) PO QD 05/31/2015 05/30/2015 Inactive Lactobacillus acidophilus-Bifidobacterium longum oral RxNorm: oral No Start Date Active Multivitamin And Mineral oral RxNorm: oral No Start Date Active Wellbutrin SR 150 mg tablet,sustained-release RxNorm: 448889 1 Tablet(s) PO BID No Start Date 11/13/2016 Inactive gabapentin 100 mg capsule RxNorm: 017032 1 Capsule(s) PO TID No Sta rt Date 03/17/2018 Inactive Chantix Starting Month Box 0.5 mg (11)-1 mg (42) table ts in dose pack RxNorm: 027162 Tablet(s) PO As Directed No Start Date 06/19/2015 Inactive Eliquis 5 mg tablet RxNorm: 6598874 1 Tablet(s) PO BID No Start Date 03/17/2018 Inactive aspirin 325 mg tablet RxNorm: 452733 1 Tablet(s) PO QD No Start Date 11/13/2016 Inactive clindamycin HCl 300 mg capsule RxNorm: 056605 2 Capsule(s) PO Q8H N o Start Date 03/17/2018 Inactive Fish Oil 1,000 mg (120 mg-180 mg) capsule RxNorm: 1 Caps ule(s) PO QD No Start Date 09/05/2018 Inactive aspirin 81 mg tablet RxNorm: 954150 1 Tablet(s) PO QD No Start Date 1 03/28/2017 Inactive Fish Oil 1,000 mg capsule RxNorm: 1 Capsule(s) PO QD No Start Date 11/13/2016 Inactive Baby Aspirin 81 mg chewable tablet RxNorm: 993875 1 Tablet(s) P O BID No Start Date 02/02/2017 Inactive Xarelto 10 mg tablet RxNorm: 4583336 1 Tablet(s) PO QD No Start Date 01/25/2018 Inactive tramadol 50 mg tablet RxNorm: 173263 1-2 Tablet(s) PO Q6H No Start Date 03/17/2018 Inactive meloxicam 15 mg tablet RxNorm: 927618 1 Tablet(s) PO QD No Start Da te 07/01/2015 Inactive Epi E-Z Pen 0.3 mg/0.3 mL injection, auto-injector RxNorm: 1 084045 Milliliter(s) IM Use as Directed No Start Date 06/24/2016 Inactive Plavix 75 mg tablet RxNorm: 433964 1 Tablet(s) PO QD No Start Date Inactive Medication Administered No Medication Administered data Immunizations No Immunization data Results Observation Observation Code Item Item Code Result Date S ervice Location COMPREHENSIVE METABOLIC 19879 AST 25 U/L 2018 Unknown COMPREHENSIVE METABOLIC 04207 ALT 28 U/L 2018 Unknown COMPREHENSIVE METABOLIC 88395 BUN 13 mg/dL 2018 Unknown COMPREHENSIVE METABOLIC 99890 ALBUMIN 4.2 g/dL 2018 Unknown COMPREHENSIVE METABOLIC 44202 CHLORIDE 104 mmol/L 11/09 Unknown COMPREHENSIVE METABOLIC 64251 Bili Total 0.5 mg/dL 11/09 Unknown COMPREHENSIVE METABOLIC 54824 ALK PHOS 72 U/L 2018 Unknown COMPREHENSIVE METABOLIC 51805 SODIUM 139 mmol/L 11/09 Unknown COMPREHENSIVE METABOLIC 20678 CREATININE 0.98 mg/dL 10/18 Unknown COMPREHENSIVE METABOLIC 76183 CALCIUM 9.1 mg/dL 2018 Unknown COMPREHENSIVE METABOLIC 33329 POTASSIUM 3.7 mmol/L 11/09 Unknown COMPREHENSIVE METABOLIC 20076 Total Protein 7.2 g/dL Unknown COMPREHENSIVE METABOLIC 86904 Glucose 137 mg/dL 2018 Unknown COMPREHENSIVE METABOLIC 38923 Bicarbonate 24 mmol/L 10/18 Unknown COMPREHENSIVE METABOLIC 29949 AGAP 11 mmol/L 2018 Unknown COMPLETE BLOOD COUNT [id number] WBC 4.6 10e9/L 11/10/19 19 Unknown COMPLETE BLOOD COUNT [id number] RBC 4.88 10e12/L 2018 Unknown COMPLETE BLOOD COUNT [id number] HEMOGLOBIN 14.7 g/dL 11/10/19 19 Unknown COMPLETE BLOOD COUNT [id number] HEMATOCRIT 43.7 % 11/10/19 19 Unknown COMPLETE BLOOD COUNT [id number] MCV 89.5 fL 9 Unknown COMPLETE BLOOD COUNT 1366125 MCH 30.1 pg 9 Unknown COMPLETE BLOOD COUNT [id number] MCHC 33.6 g/dL 9 Unknown COMPLETE BLOOD COUNT [id number] PLATELET COUNT 179 10e9/L Unknown COMPLETE BLOOD COUNT [id number] Mean Plt Volume 11.6 fL Unknown COMPLETE BLOOD COUNT 1109923 Neut Auto 55.5 % 9 Unknown COMPLETE BLOOD COUNT [id number] Lymph Auto 28.7 % 11/10/19 19 Unknown COMPLETE BLOOD COUNT 4015006 [place] Auto 7.9 % 9 Unknown COMPLETE BLOOD COUNT [id number] Eos Auto 7.7 % 9 Unknown COMPLETE BLOOD COUNT [id number] RDW 13.2 % 9 Unknown COMPLETE BLOOD COUNT [id number] Baso Auto 0.2 % 9 Unknown COMPLETE BLOOD COUNT [id number] Neutrophil Abs 2.55 10e9/L Unknown COMPLETE BLOOD COUNT [id number] Lymphocyte Abs 1.32 10e9/L Unknown COMPLETE BLOOD COUNT 1341039 Monocyte Abs 0.36 10e9/L 10/18 Unknown COMPLETE BLOOD COUNT 3324543 Eosinophil Abs 0.35 10e9/L Unknown COMPLETE BLOOD COUNT 8324909 RDW-SD 42.2 fL 9 Unknown COMPLETE BLOOD COUNT [id number] Basophil Abs 0.01 10e9/L 10/18 Unknown [facility] 18486 Cholesterol 205 mg/dL 11/09/2018 Unkno wn LIPID GROUP 05753 Triglyceride 268 mg/dL 11/09/2018 Unkn own L[facility] GROUP 26259 HDL CHOLESTEROL 35 mg/dL 11/09/2018 U nknown L[facility] GROUP 97455 Chol/HDL Ratio 5.86 ratio 11/09/2018 U nknown L[facility] GROUP 19565 NON-HDL Chol 170 mg/dL 11/09/2018 Unkn own [facility] GROUP 74286 LDL Cholesterol 116 mg/dL 11/09/2018 U nknown PT [id number] PT 12.7 Seconds 11/09/2018 Unknow n PT 0343660 INR 0.9 11/09/2018 Unknown GFR CALC 8381142 GFR Non Afr Amr >60 mL/min 11/09/2018 Un known GFR CALC 4372940 GFR Afr Amr >60 mL/min 11/09/2018 Unknow n ACT PARTIAL THRMBOPLASTIN TIME 40106 PTT 34.0 Sec[place] nds 11/09/2018 Unknown LIPID GROUP 11413 Cholesterol 186 mg/dL 2018 Unkno wn LIP[facility] GROUP 71615 Triglyceride 229 mg/dL 2018 Unkn own LIP[facility] GROUP 81730 HDL CHOLESTEROL 36 mg/dL 2018 U nknown L[facility] GROUP 74895 Chol/HDL Ratio 5.17 ratio 2018 U nknown LIPID GROUP 70798 NON-HDL Chol 150 mg/dL 2018 Unkn own L[facility] GROUP 10539 LDL Cholesterol 104 mg/dL 2018 U nknown GFR CALC 5267448 GFR Non Afr Amr >60 mL/min 2018 Un known GFR CALC [id number] GFR Afr Amr >60 mL/min 2018 Unknow n COMPREHENSIVE METABOLIC 41478 AST 23 U/L 2018 Unknown COMPREHENSIVE METABOLIC 82711 ALT 22 U/L 2018 Unknown COMPREHENSIVE METABOLIC 11804 BUN 15 mg/dL 2018 Unknown COMPREHENSIVE METABOLIC 25795 ALBUMIN 4.1 g/dL 2018 Unknown COMPREHENSIVE METABOLIC 53389 CHLORIDE 106 mmol/L 05/06 Unknown COMPREHENSIVE METABOLIC 90553 Bili Total 0.6 mg/dL 05/06 Unknown COMPREHENSIVE METABOLIC 76162 ALK PHOS 61 U/L 2018 Unknown COMPREHENSIVE METABOLIC 94149 SODIUM 141 mmol/L 05/06 Unknown COMPREHENSIVE METABOLIC 89420 CREATININE 0.91 mg/dL 04/17 Unknown COMPREHENSIVE METABOLIC 12161 CALCIUM 9.2 mg/dL 2018 Unknown COMPREHENSIVE METABOLIC 48558 POTASSIUM 3.8 mmol/L 05/06 Unknown COMPREHENSIVE METABOLIC 70425 Total Protein 7.0 g/dL Unknown COMPREHENSIVE METABOLIC 87736 Glucose 97 mg/dL 2018 Unknown COMPREHENSIVE METABOLIC 19179 Bicarbonate 28 mmol/L 04/17 Unknown COMPREHENSIVE METABOLIC 34196 AGAP 7 mmol/L 2018 Unknown THYROID STIMULATING HORMONE 33305 TSH 2.094 uIU/mL 2018 Unknown COMPLETE BLOOD COUNT 2211531 WBC 5.5 10e9/L 05/07/19 19 Unknown COMPLETE BLOOD COUNT 4684625 RBC 4.61 10e12/L 2018 Unknown COMPLETE BLOOD COUNT 4656791 HEMOGLOBIN 13.6 g/dL 05/07/19 19 Unknown COMPLETE BLOOD COUNT 3307370 HEMATOCRIT 40.0 % 05/07/19 19 Unknown COMPLETE BLOOD COUNT 8198362 MCV 86.8 fL 9 Unknown COMPLETE BLOOD COUNT 0104691 MCH 29.5 pg 9 Unknown COMPLETE BLOOD COUNT 3459829 MCHC 34.0 g/dL 9 Unknown COMPLETE BLOOD COUNT 8896956 PLATELET COUNT 197 10e9/L Unknown COMPLETE BLOOD COUNT 6332669 Mean Plt Volume 10.8 fL Unknown COMPLETE BLOOD COUNT 1802909 Neut Auto 49.6 % 9 Unknown COMPLETE BLOOD COUNT 1616552 Lymph Auto 36.8 % 05/07/19 19 Unknown COMPLETE BLOOD COUNT 9124161 [place] Auto 8.1 % 9 Unknown COMPLETE BLOOD COUNT 5010117 RDW 15.3 % 9 Unknown COMPLETE BLOOD COUNT 6765784 Eos Auto 5.3 % 9 Unknown COMPLETE BLOOD COUNT 8831826 Baso Auto 0.2 % 9 Unknown COMPLETE BLOOD COUNT 2846355 Neutrophil Abs 2.73 10e9/L Unknown COMPLETE BLOOD COUNT 5100164 Lymphocyte Abs 2.02 10e9/L Unknown COMPLETE BLOOD COUNT [id number] Monocyte Abs 0.45 10e9/L 04/17 Unknown COMPLETE BLOOD COUNT [id number] Eosinophil Abs 0.29 10e9/L Unknown COMPLETE BLOOD COUNT [id number] Basophil Abs 0.01 10e9/L 04/17 Unknown COMPLETE BLOOD COUNT [id number] RDW-SD 47.9 fL 9 Unknown Procedures Procedure Codes Date CEFTRIAXONE SODIUM INJECTION CPT-4: J0696 11/09/2018 THER/PROPH/DIAG INJ SC/IM CPT-4: 70833 11/09/2018 ROUTINE VENIPUNCTURE CPT-4: 86878 11/09/2018 COMPREHEN METABOLIC PANEL CPT-4: 34359 11/09/2018 COMPLETE CBC W/AUTO DIFF WBC CPT-4: 42484 11/09/2018 LIPID PANEL CPT-4: 56009 11/09/2018 PROTHROMBIN TIME CPT-4: 75574 11/09/2018 THROMBOPLASTIN TIME PARTIAL CPT-4: 46840 11/09/2018 THER/PROPH/DIAG INJ SC/IM CPT-4: 77153 09/23/2018 KETOROLAC TROMETHAMINE INJ CPT-4: J1885 09/23/2018 ROUTINE VENIPUNCTURE CPT-4: 33024 2018 ASSAY THYROID STIM HORMONE CPT-4: 85248 2018 COMPREHEN METABOLIC PANEL CPT-4: 19283 2018 COMPLETE CBC W/AUTO DIFF WBC CPT-4: 59508 2018 LIPID PANEL CPT-4: 50704 2018 CEFTRIAXONE SODIUM INJECTION CPT-4: J0696 04/14/2018 THER/PROPH/DIAG INJ SC/IM CPT-4: 13199 04/14/2018 CEFTRIAXONE SODIUM INJECTION CPT-4: J0696 03/18/2018 THER/PROPH/DIAG INJ SC/IM CPT-4: 42350 03/18/2018 THER/PROPH/DIAG INJ SC/IM CPT-4: 53174 01/26/2018 KETOROLAC TROMETHAMINE INJ CPT-4: J1885 01/26/2018 CEFTRIAXONE SODIUM INJECTION CPT-4: J0696 12/22/2017 THER/PROPH/DIAG INJ SC/IM CPT-4: 96321 12/22/2017 ROUTINE VENIPUNCTURE CPT-4: 07115 11/14/2016 COMPLETE CBC W/AUTO DIFF WBC CPT-4: 93277 11/14/2016 PT/PTT CPT-4: 1847373 11/14/2016 Vital Signs Date Vital 03/01/2019 Blood Pressure 1: 134/82 Code: 8480-6 BMI: 23.9 Code: 91771-0 Heart Rate 1: 100 bpm Height: 6'4" [...] 1: 138/70 Code: 8480-6 BMI: 22.6 Code: 43838-3 Heart Rate 1: 97 bpm Height: 6'4" [...] 1: 142/80 Code: 8480-6 BMI: 20.9 Code: 48254-9 Heart Rate 1: 108 bpm Height: 6'4" Respiratory Rate: 20 bpm SpO2: 97% Tempera ture: 36.6 (C) / 97.9 (F) Weight: 172 lbs 01/26/2018 Blood Pressure 1: 130/82 Code: 8480-6 Heart Rate 1: 98 bpm Respiratory Rate: 18 bpm SpO2: 99% Temperature: 35.7 (C) / 96.3 (F) We ight: 175 lbs 12/22/2017 Blood Pressure 1: 124/68 Code: 8480-6 BMI: 22.3 Code: 11199-7 Heart Rate 1: 100 bpm Height: 6'4" Respiratory Rate: 20 bpm SpO2: 98% Tempera ture: 36.7 (C) / 98.0 (F) Weight: 183 lbs 10/06/2017 Blood Pressure 1: 130/86 Code: 8480-6 BMI: 21.1 Code: 13968-0 Heart Rate 1: 92 bpm Height: 6'4" Respiratory Rate: 18 bpm SpO2: 98% Tempera ture: 36.9 (C) / 98.5 (F) Weight: 173 lbs 02/03/2017 Blood Pressure 1: 144/92 Code: 8480-6 BMI: 20.8 Code: 08607-0 Heart Rate 1: 88 bpm Height: 6'4" Respiratory Rate: 20 bpm SpO2: 97% Tempera ture: 36.7 (C) / 98.1 (F) Weight: 171 lbs 11/25/2016 Blood Pressure 1: 126/84 Code: 8480-6 Heart Rate 1: 76 bpm Respiratory Rate: 20 bpm SpO2: 96% Temperature: 36.9 (C) / 98.4 (F) We ight: 170 lbs 11/14/2016 Blood Pressure 1: 126/82 Code: 8480-6 BMI: 20.7 Code: 40227-6 Heart Rate 1: 86 bpm Height: 6'4" Respiratory Rate: 18 bpm SpO2: 96% Tempera ture: 35.8 (C) / 96.5 (F) Weight: 170 lbs 04/02/2016 Blood Pressure 1: 124/78 Code: 8480-6 Heart Rate 1: 88 bpm Respiratory Rate: 24 bpm SpO2: 97% Temperature: 36.1 (C) / 97.0 (F) We ight: 161 lbs 11/29/2015 Blood Pressure 1: 124/68 Code: 8480-6 BMI: 19.2 Code: 22626-1 Heart Rate 1: 94 bpm Height: 6'4" Respiratory Rate: 18 bpm SpO2: 97% Tempera ture: 36.1 (C) / 97.0 (F) Weight: 158 lbs 06/27/2015 Blood Pressure 1: 128/78 Code: 8480-6 BMI: 18.7 Code: 98929-0 Heart Rate 1: 72 bpm Height: 6'4" Respiratory Rate: 22 bpm SpO2: 98% Tempera ture: 35.9 (C) / 96.6 (F) Weight: 154 lbs 05/24/2015 Blood Pressure 1: 112/78 Code: 8480-6 BMI: 19.7 Code: 15274-8 Heart Rate 1: 78 bpm Height: 6'4" Respiratory Rate: 24 bpm SpO2: 97% Tempera ture: 36.4 (C) / 97.6 (F) Weight: 162 lbs Functional Status No Functional Status data Reason For Visit Reason For Visit Effective Dates Notes rash 03/01/2019 pruritus 11/18/2018 wound on left [...] care Encounters Encounter Performer Location Codes Date ([id number]) OFFICE/OUTPATIENT VISIT EST Diagnosis: Sinus tachycardia[ICD10: R00.0] Diagnosis: Folliculitis[ICD10: L73.9] Janneth WARD [employer] CPT-4: 30050 03/01/2019 ([id number]) OFFICE/OUTPATIENT VISIT EST Diagnosis: Cellulitis of left lower limb[ICD10: L03.116] Diagnosis: Tendinitis of left peroneus longus tendon[ICD10: M76.72] Janneth WARD [employer] CPT-4: 81267 11/18/2018 ([id number]) OFFICE/OUTPATIENT VISIT EST Diagnosis: Cellulitis of left foot[ICD10: L03.116] Diagnosis: Spontaneous ecchymoses[ICD10: R23.3] Diagnosis: Venous insufficiency (chronic) (peripheral)[ICD10: I87.2] Diagnosis: Mixed hyperlipidemia[ICD10: E78.2] Vania RAY [employer] CPT-4: 91553 11/09/2018 ([id number]) OFFICE/OUTPATIENT VISIT EST Diagnosis: Venous insufficiency (chronic) (peripheral)[ICD10: I87.2] Diagnosis: Cellulitis of left lower limb[ICD10: L03.116] Diagnosis: Pain in right foot[ICD10: M79.671] Vania RAY [employer] CPT-4: 99378 10/13/2018 ([id number]) OFFICE/OUTPATIENT VISIT EST Diagnosis: Low back pain[ICD10: M54.5] Vania WARD [employer] CPT-4: 26695 09/23/2018 ([id number]) OFFICE/OUTPATIENT VISIT EST Diagnosis: Gastro-esophageal reflux disease without esophagitis[ICD10: K21.9] Diagnosis: Dysphagia, pharyngoesophageal phase[ICD10: R13.14] [facility]: 40143 09/06/2018 ([id number]) OFFICE/OUTPATIENT VISIT EST Diagnosis: Tinea corporis[ICD10: B35.4] Vania SHRESTHA [facility] CPT-4: 58424 07/15/2018 ([id number]) OFFICE/OUTPATIENT VISIT EST Diagnosis: Cellulitis of left toe[ICD10: L03.032] Diagnosis: Mixed hyperlipidemia[ICD10: E78.2] Mandy MERINOGINNY RAY Liza [facility] CPT-4: 28494 2018 OFFICE/OUTPATIENT VISIT EST Diagnosis: Cellulitis of left toe[ICD10: L03.032] Diagnosis: Unspecified disturbances of skin sensation[ICD10: R20.9] Mandy Gurvinder [facility] CPT-4: 22085 04/14/2018 ([id number]) OFFICE/OUTPATIENT VISIT EST Diagnosis: Cellulitis of left toe[ICD10: L03.032] Diagnosis: Insomnia, unspecified[ICD10: G47.00] [facility]: 53795 03/18/2018 ([id number]) OFFICE/OUTPATIENT VISIT EST Diagnosis: Other postprocedural complications and disorders of the circulatory system, not elsewhere classified[ICD10: I97.89] Diagnosis: Rash and other nonspecific skin eruption[ICD10: R21] Diagnosis: Pain in right leg[ICD10: M79.604] [facility] CPT-4: 14759 01/26/2018 ([id number]) OFFICE/OUTPATIENT VISIT EST Diagnosis: Other postprocedural complications and disorders of the circulatory system, not elsewhere classified[ICD10: I97.89] Diagnosis: Cellulitis of right lower limb[ICD10: L03.115] [facility] CPT-4: 44270 12/22/2017 ([id number]) OFFICE/OUTPATIENT VISIT EST Diagnosis: Acute sinusitis, unspecified[ICD10: J01.90] Diagnosis: Unspecified disturbances of skin sensation[ICD10: R20.9] Vania SHRESTHA DO [facility] CPT-4: 85629 10/06/2017 ([id number]) OFFICE/OUTPATIENT VISIT EST Diagnosis: Primary insomnia[ICD10: F51.01] Diagnosis: Pain in left shoulder[ICD10: M25.512] Diagnosis: Poisoning by other parasympatholytics [anticholinergics and antimuscarinics] and spasmolytics, accidental (unintentional), sequela[ICD10: T44.3X1S] Janneth SHRESTHA [facility] CPT-4: 62210 02/03/2017 OFFICE/OUTPATIENT VISIT EST Diagnosis: Insomnia, unspecified[ICD10: G47.00] Diagnosis: Constipation, unspecified[ICD10: K59.00] Diagnosis: Spontaneous ecchymoses[ICD10: R23.3] Diagnosis: Pain in left foot[ICD10: M79.672] Vania SHRESTHA [facility] CPT-4: 20050 11/25/2016 OFFICE/OUTPATIENT VISIT EST Diagnosis: Insomnia, unspecified[ICD10: G47.00] Diagnosis: Constipation, unspecified[ICD10: K59.00] Diagnosis: Spontaneous ecchymoses[ICD10: R23.3] Diagnosis: Other specified local infections of the skin and subcutaneous tissue[ICD10: L08.89] Vania SHRESTHA Plibber [facility] CPT-4: 99 213 11/14/2016 ([id number]) OFFICE/OUTPATIENT VISIT EST Diagnosis: Acute upper respiratory infection, unspecified[ICD10: J06.9] Estersuraj MERINOLINE Liza SHRESTHA [facility] CPT-4: 33920 04/02/2016 ([id number]) OFFICE/OUTPATIENT VISIT EST Diagnosis: Acute upper respiratory infection, unspecified[ICD10: J06.9] Estersimin [place] JANNETH Liza SHRESTHA [facility] CPT-4: 00006 11/29/2015 ([id number]) OFFICE/OUTPATIENT VISIT EST Diagnosis: Pain in thoracic spine[ICD10: M54.6] Diagnosis: Paresthesia of skin[ICD10: R20.2] Diagnosis: Dysphagia, unspecified[ICD10: R13.10] Ester SHRESTHA [employer] CPT-4: 13371 06/27/2015 ([id number]) OFFICE/OUTPATIENT VISIT NEW Diagnosis: Pain in left leg[ICD10: M79.605] Diagnosis: Male erectile dysfunction, unspecified[ICD10: N52.9] Diagnosis: Dysphagia, unspecified[ICD10: R13.10] Ester SHRESTHA [employer] CPT-4: 88392 05/24/2015 Plan of Care Planned Activity Notes Codes Status Date Visit Diagnosis Plan: Sinus tachycardia Discussion: St art low dose metoprolol ER 25mg daily Monitor pulse Sees Cardiology next month ICD-9 : 427.89 ICD-10 : R00.0 03/01/2019 Visit Diagnosis Plan: Folliculitis Discussion: Bactrim and topical bactroban ICD-9 : 704.8 ICD-10 : L73.9 03/01/2019 Appointment: [id number] [facility] 03/01/2019 Patient Education: mupirocin- Optimize[employer] Coupon [id number] [email or web address] Completed 03/01/2019 Appointment: Janneth Shrestha [facility]el[id number] [facility] CANCELED 12/20/2018 Visit Diagnosis Plan: Cellulitis [...] : M76.72 11/18/2018 Appointment: Vania García [address] [id number] [place] CANCELED 11/18/2018 Appointment: Janneth Shrestha WPtel: [id number] [id number] [place] FOLLOW UP 11/18/2018 Patient Education: doxycycline monohydrate- [employer] Coupon [id number] https://www.[employer]/sampleFocus/resources/getResource/61/[email or web address] Completed 11/18/2018 Patient Education: prednisone- OptimizeRX Coupon [id number] https://www.[employer]/resources/getResource/61/[email or web address]-1tn7-2757-dm Completed 11/18/2018 Care Plan: Referral Order SNOMED-CT : [id number] Pending 11/18/2018 Visit Diagnosis Plan: Spontaneous ecchymoses Discussio n: [...] evaluated in an ED whether it be [place] or wherever he's traveling. discussed the risk of bone involvement and the importance of having it evaluated if worsens. follow up in office when he returns though if no worsening symptoms. ICD-9 : 682.7 ICD-10 : L03.116 11/09/2018 Visit Diagnosis Plan: Venous insufficiency (chronic) ( peripheral) Discussion: follow up with next week ICD-9 : 459.81 ICD-10 : I87.2 11/09/2018 Appointment: Vania García [address] [place], [place] [id number] ACUTE ILLNESS 11/09/2018 Patient Education: clindamycin HCl- [employer] Coupon [id number] https://www.Recensus/[employer]/resources/getResource/61/60ji81n1-yq37-5ws4-5z Completed 11/09/2018 Appointment: Janneth Shrestha WPtel: [phone] [id number] US CANCELED 10/19/2018 Visit Diagnosis Plan: Pain [...] ICD-10 : L03.116 10/13/2018 Appointment: Vania García [address] [place], [place] [id number] Patient cant pay copay till when he [...] ICD-10 : M54.5 09/23/2018 Appointment: Vania García [address] [place], [place] [id number] ACUTE ILLNESS 09/23/2018 Patient Education: Medrol ([place])- [employer] Coupon [phone] [id number] https://www.Recensus/samplemd/resources/getResource/61/yvrx003d-5247-53j4-19 Completed 09/23/2018 Visit Diagnosis Plan: Dysphagia, pharyngoesophageal ph ase Discussion: Referral for EGD ICD-9 : 787.24 ICD-10 : R13.14 09/06/2018 Visit Diagnosis Plan: Gastro-esophageal reflux disease without esophagitis Discussion: Start omeprazole ICD-9 : 530.81 ICD-10 : K21.9 09/06/2018 Appointment: Janneth Shrestha WPtel: [phone] ACUTE ILLNESS 09/06/2018 Patient Education: omeprazole- [employer] Coupon [id number] https://www.Recensus/[employer]/resources/getResource/61/138or121-10o5-511x-44 Completed 09/06/2018 Care Plan: Referral Order SNOMED-CT : 30 [id number] Pending 09/06/2018 Visit Diagnosis Plan: Tinea corporis Discussion: nysta tin to be used bid until rash gone and then an additional 2 days. diflucan every 3 days for 3 doses. keep area clean and dry with no moisturizers. call office if no improvement in 2 weeks or if worsening. ICD-9 : 110.5 ICD-10 : B35.4 07/15/2018 Appointment: Vania García [address] [place] [address] ACUTE ILLNESS 07/15/2018 Patient Education: nystatin- [employer] Coupon [id number] https://www.Recensus/samplemd/resources/getResource/61/27wxy882-n9vq-44lq-9i Completed 07/15/2018 Patient Education: Plavix- [employer] Coupon [id number] https://www.Recensus/samplemd/resources/getResource/61/09yl3q06-v88d-09yy-27 fa-w854d4492820.pdf Completed 07/15/2018 Patient Education: cyclobenzaprine- Opt[employer] Coupon [id number] https://www.[employer].Revol[employer]/samplemd/resources/getResource/61/52702j2z-4a02-22e9-co Completed 07/15/2018 Visit Diagnosis Plan: Cellulitis of [...] ICD-10 : L03.032 2018 [facility] [id number] FOLLOW UP 2018 Patient Education: mupirocin- [employer] Coupon [id number] https://www.Recensus/samplemd/resources/getResource/61/b4ps93j0-0139-4714-6p Completed 2018 Visit Diagnosis Plan: Cellulitis of [...] ICD-10 : R20.9 04/14/2018 Appointment: Mandy Hollins [facility] [place] [employer] [id number] FOLLOW UP 04/14/2018 Visit Diagnosis Plan: Cellulitis [...] ICD-10 : G47.00 03/18/2018 Appointment: Vania García [address] [place], [place] [id number] ACUTE ILLNESS 03/18/2018 Patient Education: cyclobenzaprine- [employer] Coupon [id number] https://www.[employer].com/samplemd/resources/getResource/61/8914n951-1qz5-184o-n4 Completed 03/18/2018 Visit Diagnosis Plan: Rash and other nonspecific skin eruption Discussion: triamcinolone ordered to be used as directed. ICD-9 : 782.1 ICD-10 : R21 01/26/2018 Visit Diagnosis Plan: Other postprocedur al complications and disorders of the circulatory system, not elsewhere classified Discussion: discussed with dr. shrestha and patient was instructed to contact the [facility] due to uncontrolled pain, continued erythema, patient needs to be re-evaluated by the surgeon. 60 mg toradol given to patient. patient verbalized understanding and voiced he will contact them today for an appointment. ICD-9 : 997.1 ICD-10 : I97.89 01/26/2018 Appointment: Vania García [address] [place], [place] [id number] Hospital Follow Up 01/26/2018 Appointment: Janneth Shrestha WPtel: [phone] [facility] NO SHOW 01/06/2018 Visit Diagnosis Plan: [...] ICD-10 : I97.89 12/22/2017 Appointment: Vania García [address] [place], [place] [address] ACUTE ILLNESS 12/22/2017 Visit Diagnosis Plan: Unspecified [...] ICD-10 : J01.90 10/06/2017 Appointment: Vania García [address] [place], [place] [address] ACUTE ILLNESS 10/06/2017 Patient Education: Patient Medication Summary Completed 10/06/2017 Appointment: Vania García [address] [place] [address] ER Follow UP 08/17/2017 Appointment: Vania García [address] [place], [place] [id number] US CANCELED 07/03/2017 Appointment: Janneth Shrestha WPtel: [phone] [facility] US canceled at 8:05 this morning. 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 ICD-9 : 729.5 ICD-10 : M79.672 11/25/2016 Visit Diagnosis Plan: Insomnia, unspecified Recommenda tions: resolved with lunesta. continue taking as prescribed. ICD-9 : 780.52 ICD-10 : G47.00 11/25/2016 Appointment: Vania García [address] [place], [place] [id number] FOLLOW UP 11/25/2016 Patient Education: Patient Medication [...] ICD-10 : L08.89 11/14/2016 Appointment: Vania García [address] [place] [address] ACUTE ILLNESS 11/14/2016 Patient Education: Patient Medication Summary Completed 11/14/2016 Visit Diagnosis Plan: Acute upper respiratory infectio n, unspecified Discussion: Rxs as above Continue OTC and supportive meds Encouraged smoking cessation Follow up PRN ICD-9 : 465.9 ICD-10 : J06.9 04/02/2016 Appointment: Ester Grande [address] [place] [address] ACUTE ILLNESS 04/02/2016 Patient Education: Patient Medication Summary Completed 04/02/2016 Visit Plan: Rxs as above Supportive care reviewed Follow up PRN 11/29/2015 Appointment: Ester Grande [address] [place], [place] [id number] 11/27 confirmed~ ACUTE ILLNESS 11/29/2015 Patient Education: [...] use for pain 06/27/2015 Appointment: Ester Grande [address] [place], [place] [address] 06/25 lm ~sl 06/26 phone not on~sl FOLLOW UP 06/27/2015 Patient Education: Patient Medication Summary Completed 06/27/2015 Care Plan: X-RAY EXAM RIBS UNI 2 VIEWS L OINC : 53254-5 Pending 06/27/2015 Referral: Héctor Woodard WPtel: [phone] 05/29 Scheduled with sena ~sl Appointment Re quested 06/26/2015 Referral: Cameron Khanna WPtel: [phone] [address] [place] Referral Initiated 06/11/2015 Referral: Marco Antonio Green WPtel: [phone] 05/30/15 Needs to be there at pre op time per ~sl Initiated 06/04/2015 Visit Plan: Will get all necessary refer rals set up - CTS, Uro and G/S Swallow study and routine labs ordered Will further investigate left leg pain with EMG if not cardio related 05/24/2015 Appointment: Ester Grande [address] NEW PATIENT 05/24/2015 Patient Education: Patient Medication Summary Completed 05/24/2015 Care Plan: Referral Order SNOMED-CT : 30 [id number] Pending 05/24/2015 Care Plan: Referral Order SNOMED-CT : 30 5983183 Pending 05/24/2015 Care Plan: Referral Order SNOMED-CT : 30 7460703 Pending 05/24/2015 Referral: Sudheer Gann WPtel: [phone] [place] [address] [place] Referral Appointment Requested Referral: Alfonzo Andujar WPtel: [address] [address] [place] Referral Initiated Referral: aCmeron Khanna WPtel: [facility] [address] [place] Referral Appointment Requested Referral: Brianna Rose WPtel: [phone] [address] [place] Referral Initiated Referral: Héctor Woodard WPtel: [phone] [id number] 05/24/15 [facility] office suggested he see another card. ~sl Initiated Referral: Alfonzo Andujar WPtel: [address] [id number] [place] Referral Appointment Requested Referral: Marco Antonio Green Panda WPtel: [phone] [id number] [place] Referral Appointment Requested Instructions Comment . [...]
--- OUTSIDE RECORDS SUMMARY | 2019-08-06 10:30 | XMS REPORT | CCD ---
Author Author [place] Organization JANNETH SHRESTHA DO [facility] Address [address] [place] [address] Phone Unavailable Care Team Providers Care Medical Pathology Teacher Name Role Phone Janneth Shrestha D.O., PP Unavailable CCM Unavailable Summary Purpose Interface Exchange Insurance Providers Payer name Policy type / Coverage type Covered libertarian ID Effective Begin Date Effective End Date Blue Cross Blue Shield Blue Cross/Blue Shield [id number] Unknown Family History Family History data not found Social History Social History Element Codes Description Effective Dates Marital status Unknown 05/24/2015 Number of children Unknown 2 05/24/2015 Employment Unknown Currently employed 05/24/[address]: 11599719 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 [...] Start Date Stop Date Status Fill Instructions mupirocin 2 % topical ointment RxNorm: 410636 Applicati on Topical two times a day 03/01/2019 No Stop Date Active metoprolol succinate ER 25 mg tablet,extended release 24 hr RxNorm: 085792 1 Tablet(s) Oral QD 03/01/2019 05/30/2019 Active Bactrim DS 800 mg-160 mg tablet RxNorm: 655238 1 Tablet(s) Oral two times a day 03/01/2019 03/11/2019 Active cyclobenzaprine 10 mg tablet RxNorm: 618674 TAKE ONE TA BLET BY MOUTH EVERY NIGHT AT BEDTIME NEEDED 01/10/2019 No Stop Date Active Plavix 75 mg tablet RxNorm: 283103 TAKE ONE TABLET BY MOUTH DAILY 1 03/12/2018 No Stop Date Active omeprazole 40 mg capsule,delayed release RxNorm: 165281 TAKE ONE CAPSULE BY MOUTH EVERY NIGHT AT BEDTIME FOR REFLUX 01/10/2019 No Stop Date Active tramadol 50 mg tablet RxNorm: 647292 1 Tablet(s) Oral f our times a day as needed 01/03/2019 01/03/2019 Inactive doxycycline monohydrate 100 mg capsule RxNorm: 4699362 1 Capsule(s) Oral two times a day 11/22/2018 12/13/2018 Inactive prednisone 20 mg tablet RxNorm: 604959 1 Tablet(s) Oral two jn es a day 11/22/2018 11/29/2018 Inactive Levaquin 750 mg tablet RxNorm: 123438 Tablet(s) Oral 11/18/201802/28 Inactive prednisone 20 mg tablet RxNorm: 952623 1 Tablet(s) Oral two jn es a day 11/18/2018 11/21/2018 Inactive tramadol 50 mg tablet RxNorm: 867358 Tablet(s) Oral 11/18/20182018 Inactive doxycycline monohydrate 100 mg capsule RxNorm: 8357260 1 Capsule(s) Oral two times a day 11/18/2018 11/21/2018 Inactive Plavix 75 mg tablet RxNorm: 835709 TAKE ONE TABLET BY MOUTH DAILY 0 11/10/2018 01/08/2019 Inactive clindamycin HCl 300 mg capsule RxNorm: 015901 1 Capsule (s) Oral three times a day 11/09/2018 11/19/2018 Inactive Keflex 500 mg capsule RxNorm: 143144 1 Capsule(s) PO BID 10/13/2018 0 10/22/2018 Inactive Medrol (Brenden) 4 mg tablets in a dose pack RxNorm: 614632 Tablet(s) take as directed PO 09/23/2018 10/12/2018 Inactive omeprazole 40 mg capsule,delayed release RxNorm: 227568 1 Capsule(s) PO QHS for reflux 09/06/2018 11/04/2018 Inactive cyclobenzaprine 10 mg tablet RxNorm: 928097 1 Tablet(s) PO QHS as needed 07/15/2018 10/12/2018 Inactive Diflucan 150 mg tablet RxNorm: 862573 1 Tablet(s) PO Q72H 07/15/2018 09/05/2018 Inactive nystatin 100,000 unit/gram topical cream RxNorm: 903463 1 Gram( s) TOP BID 07/15/2018 09/05/2018 Inactive Plavix 75 mg tablet RxNorm: 192490 1 Tablet(s) PO QD 07/15/201810/12 Inactive cyclobenzaprine 10 mg tablet RxNorm: 007013 1 Tablet(s) PO QHS as needed 06/10/2018 06/09/2018 Inactive cyclobenzaprine 10 mg tablet RxNorm: 728562 TAKE ONE TA BLET BY MOUTH EVERY NIGHT AT BEDTIME NEEDED 05/10/2018 06/10/2018 Inactive mupirocin 2 % topical ointment RxNorm: 309591 1 Application TOP BID 2018 05/25/2018 Inactive 22 gram cyclobenzaprine 10 mg tablet RxNorm: 564271 1 Tablet(s) PO QHS as needed 04/14/2018 06/09/2018 Inactive doxycycline hyclate 100 mg tablet RxNorm: 4879189 1 Tablet(s) PO BI D 04/14/2018 04/23/2018 Inactive cyclobenzaprine 10 mg tablet RxNorm: 879695 1 Tablet(s) PO QHS as needed 04/07/2018 04/13/2018 Inactive Bactrim DS 800 mg-160 mg tablet RxNorm: 058838 1 Tablet(s) PO BID 0 03/18/2018 03/27/2018 Inactive cyclobenzaprine 10 mg tablet RxNorm: 021781 1 Tablet(s) PO QHS as needed 03/18/2018 04/06/2018 Inactive triamcinolone acetonide 0.1 % topical cream RxNorm: 7704475 APPLY TO AFFECTED AREA(S) TWO TIMES A DAY 02/03/2018 02/12/2018 Inactive triamcinolone acetonide 0.1 % topical cream RxNorm: 6608163 1 Application TOP BID 01/26/2018 02/02/2018 Inactive Medrol (Brenden) 4 mg tablets in a dose pack RxNorm: 677960 TAKE BY MOUTH INSTRUCTED - PER PACKAGE INSTRUCTIONS 12/11/2017 12/16/2017 Inactive Medrol (Brenden) 4 mg tablets in a dose pack RxNorm: 738728 Tablet(s) P O 10/06/2017 12/10/2017 Inactive Lunesta 3 mg tablet RxNorm: 264439 1 Tablet(s) PO QHS 11/25/201608/2016 Inactive Lunesta 3 mg tablet RxNorm: 859875 1 Tablet(s) PO QHS 11/14/201610/2016 Inactive Bactrim DS 800 mg-160 mg tablet RxNorm: 059904 1 Tablet(s) PO BID 0 11/14/2016 11/23/2016 Inactive Epi E-Z Pen 0.3 mg/0.3 mL injection, auto-injector RxNorm: 1 511460 Milliliter(s) IM Use as Directed 06/25/2016 09/05/2018 Inactive amoxicillin 875 mg tablet RxNorm: 908333 1 Tablet(s) PO BID 017 04/11/2016 Inactive prednisone 20 mg tablet RxNorm: 066289 1 Tablet(s) PO BID 04/02/2016 04/06/2016 Inactive azithromycin 250 mg tablet RxNorm: 632273 2 Tablet(s) P O on day one then 1 tab on days 2-5 11/29/2015 11/28/2015 Inactive Medrol (Brenden) 4 mg tablets in a dose pack RxNorm: 981513 Take as directed 11/29/2015 11/13/2016 Inactive meloxicam 15 mg tablet RxNorm: 480457 1 Tablet(s) PO QD 07/02/2015 Inactive Chantix Starting Month Box 0.5 mg (11)-1 mg (42) table ts in dose pack RxNorm: 857874 Tablet(s) PO As Directed 06/20/2015 07/10/2015 Inactive omeprazole 40 mg capsule,delayed release RxNorm: 184142 1 Capsu le(s) PO QD 05/31/2015 11/13/2016 Inactive omeprazole 40 mg capsule,delayed release RxNorm: 195254 1 Capsu le(s) PO QD 05/31/2015 05/30/2015 Inactive Lactobacillus acidophilus-Bifidobacterium longum oral RxNorm: oral No Start Date Active Multivitamin And Mineral oral RxNorm: oral No Start Date Active Wellbutrin SR 150 mg tablet,sustained-release RxNorm: 495195 1 Tablet(s) PO BID No Start Date 11/13/2016 Inactive gabapentin 100 mg capsule RxNorm: 287939 1 Capsule(s) PO TID No Sta rt Date 03/17/2018 Inactive Chantix Starting Month Box 0.5 mg (11)-1 mg (42) table ts in dose pack RxNorm: 972598 Tablet(s) PO As Directed No Start Date 06/19/2015 Inactive Eliquis 5 mg tablet RxNorm: 7037791 1 Tablet(s) PO BID No Start Date 03/17/2018 Inactive aspirin 325 mg tablet RxNorm: 516511 1 Tablet(s) PO QD No Start Date 11/13/2016 Inactive clindamycin HCl 300 mg capsule RxNorm: 769704 2 Capsule(s) PO Q8H N o Start Date 03/17/2018 Inactive Fish Oil 1,000 mg (120 mg-180 mg) capsule RxNorm: 1 Caps ule(s) PO QD No Start Date 09/05/2018 Inactive aspirin 81 mg tablet RxNorm: 972747 1 Tablet(s) PO QD No Start Date 1 03/28/2017 Inactive Fish Oil 1,000 mg capsule RxNorm: 1 Capsule(s) PO QD No Start Date 11/13/2016 Inactive Baby Aspirin 81 mg chewable tablet RxNorm: 422513 1 Tablet(s) P O BID No Start Date 02/02/2017 Inactive Xarelto 10 mg tablet RxNorm: 6288569 1 Tablet(s) PO QD No Start Date 01/25/2018 Inactive tramadol 50 mg tablet RxNorm: 140942 1-2 Tablet(s) PO Q6H No Start Date 03/17/2018 Inactive meloxicam 15 mg tablet RxNorm: 213604 1 Tablet(s) PO QD No Start Da te 07/01/2015 Inactive Epi E-Z Pen 0.3 mg/0.3 mL injection, auto-injector RxNorm: 1 645373 Milliliter(s) IM Use as Directed No Start Date 06/24/2016 Inactive Plavix 75 mg tablet RxNorm: 139343 1 Tablet(s) PO QD No Start Date Inactive Medication Administered No Medication Administered data Immunizations No Immunization data Results Observation Observation Code Item Item Code Result Date S ervice Location COMPREHENSIVE METABOLIC 97341 AST 25 U/L 2018 Unknown COMPREHENSIVE METABOLIC 28614 ALT 28 U/L 2018 Unknown COMPREHENSIVE METABOLIC 21173 BUN 13 mg/dL 2018 Unknown COMPREHENSIVE METABOLIC 77888 ALBUMIN 4.2 g/dL 2018 Unknown COMPREHENSIVE METABOLIC 99457 CHLORIDE 104 mmol/L 11/09 Unknown COMPREHENSIVE METABOLIC 97450 Bili Total 0.5 mg/dL 11/09 Unknown COMPREHENSIVE METABOLIC 81153 ALK PHOS 72 U/L 2018 Unknown COMPREHENSIVE METABOLIC 17100 SODIUM 139 mmol/L 11/09 Unknown COMPREHENSIVE METABOLIC 49650 CREATININE 0.98 mg/dL 10/18 Unknown COMPREHENSIVE METABOLIC 85995 CALCIUM 9.1 mg/dL 2018 Unknown COMPREHENSIVE METABOLIC 79400 POTASSIUM 3.7 mmol/L 11/09 Unknown COMPREHENSIVE METABOLIC 50455 Total Protein 7.2 g/dL Unknown COMPREHENSIVE METABOLIC 14896 Glucose 137 mg/dL 2018 Unknown COMPREHENSIVE METABOLIC 27012 Bicarbonate 24 mmol/L 10/18 Unknown COMPREHENSIVE METABOLIC 10139 AGAP 11 mmol/L 2018 Unknown COMPLETE BLOOD COUNT [id number] WBC 4.6 10e9/L 11/10/19 19 Unknown COMPLETE BLOOD COUNT [id number] RBC 4.88 10e12/L 2018 Unknown COMPLETE BLOOD COUNT [id number] HEMOGLOBIN 14.7 g/dL 11/10/19 19 Unknown COMPLETE BLOOD COUNT [id number] HEMATOCRIT 43.7 % 11/10/19 19 Unknown COMPLETE BLOOD COUNT [id number] MCV 89.5 fL 9 Unknown COMPLETE BLOOD COUNT [id number] MCH 30.1 pg 9 Unknown COMPLETE BLOOD COUNT [id number] MCHC 33.6 g/dL 9 Unknown COMPLETE BLOOD COUNT [id number] PLATELET COUNT 179 10e9/L Unknown COMPLETE BLOOD COUNT 6580094 Mean Plt Volume 11.6 fL Unknown COMPLETE BLOOD COUNT [id number] Neut Auto 55.5 % 9 Unknown COMPLETE BLOOD COUNT [id number] Lymph Auto 28.7 % 11/10/19 19 Unknown COMPLETE BLOOD COUNT [id number] [place] Auto 7.9 % 9 Unknown COMPLETE BLOOD COUNT 1092980 RDW 13.2 % 9 Unknown COMPLETE BLOOD COUNT 1669559 Eos Auto 7.7 % 9 Unknown COMPLETE BLOOD COUNT 9458411 Baso Auto 0.2 % 9 Unknown COMPLETE BLOOD COUNT [id number] Neutrophil Abs 2.55 10e9/L Unknown COMPLETE BLOOD COUNT [id number] Lymphocyte Abs 1.32 10e9/L Unknown COMPLETE BLOOD COUNT [id number] Monocyte Abs 0.36 10e9/L 10/18 Unknown COMPLETE BLOOD COUNT 1721505 Eosinophil Abs 0.35 10e9/L Unknown COMPLETE BLOOD COUNT [id number] RDW-SD 42.2 fL 9 Unknown COMPLETE BLOOD COUNT [id number] Basophil Abs 0.01 10e9/L 10/18 Unknown L[facility] GROUP 18223 Cholesterol 205 mg/dL 11/09/2018 Unkno wn LIPID GROUP 82632 Triglyceride 268 mg/dL 11/09/2018 Unkn own LIPID GROUP 43399 HDL CHOLESTEROL 35 mg/dL 11/09/2018 U nknown LIPID GROUP 65670 Chol/HDL Ratio 5.86 ratio 11/09/2018 U nknown LIPID GROUP 33318 NON-HDL Chol 170 mg/dL 11/09/2018 Unkn own LIPID GROUP 78871 LDL Cholesterol 116 mg/dL 11/09/2018 U nknown PT 7383682 PT 12.7 Seconds 11/09/2018 Unknow n PT 8590126 INR 0.9 11/09/2018 Unknown GFR CALC 6031330 GFR Non Afr Amr >60 mL/min 11/09/2018 Un known GFR CALC 0887533 GFR Afr Amr >60 mL/min 11/09/2018 Unknow n ACT PARTIAL THRMBOPLASTIN TIME 69977 PTT 34.0 [place] nds 11/09/2018 Unknown LIPID GROUP 60757 Cholesterol 186 mg/dL 2018 Unkno wn LIPID GROUP 21829 Triglyceride 229 mg/dL 2018 Unkn own LIPID GROUP 73322 HDL CHOLESTEROL 36 mg/dL 2018 U nknown LIP[facility] GROUP 18331 Chol/HDL Ratio 5.17 ratio 2018 U nknown LIPID GROUP 61144 NON-HDL Chol 150 mg/dL 2018 Unkn own LIPID GROUP 76491 LDL Cholesterol 104 mg/dL 2018 U nknown GFR CALC 0823884 GFR Non Afr Amr >60 mL/min 2018 Un known GFR CALC 9698546 GFR Afr Amr >60 mL/min 2018 Unknow n COMPREHENSIVE METABOLIC 03035 AST 23 U/L 2018 Unknown COMPREHENSIVE METABOLIC 12615 ALT 22 U/L 2018 Unknown COMPREHENSIVE METABOLIC 83704 BUN 15 mg/dL 2018 Unknown COMPREHENSIVE METABOLIC 02302 ALBUMIN 4.1 g/dL 2018 Unknown COMPREHENSIVE METABOLIC 63416 CHLORIDE 106 mmol/L 05/06 Unknown COMPREHENSIVE METABOLIC 49692 Bili Total 0.6 mg/dL 05/06 Unknown COMPREHENSIVE METABOLIC 05895 ALK PHOS 61 U/L 2018 Unknown COMPREHENSIVE METABOLIC 02335 SODIUM 141 mmol/L 05/06 Unknown COMPREHENSIVE METABOLIC 86319 CREATININE 0.91 mg/dL 04/17 Unknown COMPREHENSIVE METABOLIC 06633 CALCIUM 9.2 mg/dL 2018 Unknown COMPREHENSIVE METABOLIC 46612 POTASSIUM 3.8 mmol/L 05/06 Unknown COMPREHENSIVE METABOLIC 65082 Total Protein 7.0 g/dL Unknown COMPREHENSIVE METABOLIC 25867 Glucose 97 mg/dL 2018 Unknown COMPREHENSIVE METABOLIC 08837 Bicarbonate 28 mmol/L 04/17 Unknown COMPREHENSIVE METABOLIC 46815 AGAP 7 mmol/L 2018 Unknown THYROID STIMULATING HORMONE 27888 TSH 2.094 uIU/mL 2018 Unknown COMPLETE BLOOD COUNT 4537558 WBC 5.5 10e9/L 05/07/19 19 Unknown COMPLETE BLOOD COUNT [id number] RBC 4.61 10e12/L 2018 Unknown COMPLETE BLOOD COUNT 3512938 HEMOGLOBIN 13.6 g/dL 05/07/19 19 Unknown COMPLETE BLOOD COUNT 2989252 HEMATOCRIT 40.0 % 05/07/19 19 Unknown COMPLETE BLOOD COUNT 9955196 MCV 86.8 fL 9 Unknown COMPLETE BLOOD COUNT 1988143 MCH 29.5 pg 9 Unknown COMPLETE BLOOD COUNT 1784993 MCHC 34.0 g/dL 9 Unknown COMPLETE BLOOD COUNT 5251922 PLATELET COUNT 197 10e9/L Unknown COMPLETE BLOOD COUNT 8613681 Mean Plt Volume 10.8 fL Unknown COMPLETE BLOOD COUNT 5022132 Neut Auto 49.6 % 9 Unknown COMPLETE BLOOD COUNT 4269875 Lymph Auto 36.8 % 05/07/19 19 Unknown COMPLETE BLOOD COUNT 9183555 [place] Auto 8.1 % 9 Unknown COMPLETE BLOOD COUNT 8818040 RDW 15.3 % 9 Unknown COMPLETE BLOOD COUNT 1886379 Eos Auto 5.3 % 9 Unknown COMPLETE BLOOD COUNT 1770829 Baso Auto 0.2 % 9 Unknown COMPLETE BLOOD COUNT 1711356 Neutrophil Abs 2.73 10e9/L Unknown COMPLETE BLOOD COUNT 7101271 Lymphocyte Abs 2.02 10e9/L Unknown COMPLETE BLOOD COUNT [id number] Monocyte Abs 0.45 10e9/L 04/17 Unknown COMPLETE BLOOD COUNT 4654999 Eosinophil Abs 0.29 10e9/L Unknown COMPLETE BLOOD COUNT 4654195 RDW-SD 47.9 fL 9 Unknown COMPLETE BLOOD COUNT [id number] Basophil Abs 0.01 10e9/L 04/17 Unknown Procedures Procedure Codes Date CEFTRIAXONE SODIUM INJECTION CPT-4: J0696 11/09/2018 THER/PROPH/DIAG INJ SC/IM CPT-4: 39684 11/09/2018 ROUTINE VENIPUNCTURE CPT-4: 42013 11/09/2018 COMPREHEN METABOLIC PANEL CPT-4: 29130 11/09/2018 COMPLETE CBC W/AUTO DIFF WBC CPT-4: 81124 11/09/2018 LIPID PANEL CPT-4: 21172 11/09/2018 PROTHROMBIN TIME CPT-4: 43989 11/09/2018 THROMBOPLASTIN TIME PARTIAL CPT-4: 11674 11/09/2018 THER/PROPH/DIAG INJ SC/IM CPT-4: 55750 09/23/2018 KETOROLAC TROMETHAMINE INJ CPT-4: J1885 09/23/2018 ROUTINE VENIPUNCTURE CPT-4: 01016 2018 ASSAY THYROID STIM HORMONE CPT-4: 72512 2018 COMPREHEN METABOLIC PANEL CPT-4: 48240 2018 COMPLETE CBC W/AUTO DIFF WBC CPT-4: 17265 2018 LIPID PANEL CPT-4: 59318 2018 CEFTRIAXONE SODIUM INJECTION CPT-4: J0696 04/14/2018 THER/PROPH/DIAG INJ SC/IM CPT-4: 41289 04/14/2018 CEFTRIAXONE SODIUM INJECTION CPT-4: J0696 03/18/2018 THER/PROPH/DIAG INJ SC/IM CPT-4: 46539 03/18/2018 THER/PROPH/DIAG INJ SC/IM CPT-4: 53404 01/26/2018 KETOROLAC TROMETHAMINE INJ CPT-4: J1885 01/26/2018 CEFTRIAXONE SODIUM INJECTION CPT-4: J0696 12/22/2017 THER/PROPH/DIAG INJ SC/IM CPT-4: 40934 12/22/2017 ROUTINE VENIPUNCTURE CPT-4: 52322 11/14/2016 COMPLETE CBC W/AUTO DIFF WBC CPT-4: 02705 11/14/2016 PT/PTT CPT-4: 2426550 11/14/2016 Vital Signs Date Vital 03/01/2019 Blood Pressure 1: 134/82 Code: 8480-6 BMI: 23.9 Code: 98374-8 Heart Rate 1: 100 bpm Height: 6'4" [...] 1: 138/70 Code: 8480-6 BMI: 22.6 Code: 53665-3 Heart Rate 1: 97 bpm Height: 6'4" [...] 1: 142/80 Code: 8480-6 BMI: 20.9 Code: 00125-6 Heart Rate 1: 108 bpm Height: 6'4" Respiratory Rate: 20 bpm SpO2: 97% Tempera ture: 36.6 (C) / 97.9 (F) Weight: 172 lbs 01/26/2018 Blood Pressure 1: 130/82 Code: 8480-6 Heart Rate 1: 98 bpm Respiratory Rate: 18 bpm SpO2: 99% Temperature: 35.7 (C) / 96.3 (F) We ight: 175 lbs 12/22/2017 Blood Pressure 1: 124/68 Code: 8480-6 BMI: 22.3 Code: 20182-1 Heart Rate 1: 100 bpm Height: 6'4" Respiratory Rate: 20 bpm SpO2: 98% Tempera ture: 36.7 (C) / 98.0 (F) Weight: 183 lbs 10/06/2017 Blood Pressure 1: 130/86 Code: 8480-6 BMI: 21.1 Code: 21337-7 Heart Rate 1: 92 bpm Height: 6'4" Respiratory Rate: 18 bpm SpO2: 98% Tempera ture: 36.9 (C) / 98.5 (F) Weight: 173 lbs 02/03/2017 Blood Pressure 1: 144/92 Code: 8480-6 BMI: 20.8 Code: 13075-2 Heart Rate 1: 88 bpm Height: 6'4" Respiratory Rate: 20 bpm SpO2: 97% Tempera ture: 36.7 (C) / 98.1 (F) Weight: 171 lbs 11/25/2016 Blood Pressure 1: 126/84 Code: 8480-6 Heart Rate 1: 76 bpm Respiratory Rate: 20 bpm SpO2: 96% Temperature: 36.9 (C) / 98.4 (F) We ight: 170 lbs 11/14/2016 Blood Pressure 1: 126/82 Code: 8480-6 BMI: 20.7 Code: 85675-9 Heart Rate 1: 86 bpm Height: 6'4" Respiratory Rate: 18 bpm SpO2: 96% Tempera ture: 35.8 (C) / 96.5 (F) Weight: 170 lbs 04/02/2016 Blood Pressure 1: 124/78 Code: 8480-6 Heart Rate 1: 88 bpm Respiratory Rate: 24 bpm SpO2: 97% Temperature: 36.1 (C) / 97.0 (F) We ight: 161 lbs 11/29/2015 Blood Pressure 1: 124/68 Code: 8480-6 BMI: 19.2 Code: 91279-8 Heart Rate 1: 94 bpm Height: 6'4" Respiratory Rate: 18 bpm SpO2: 97% Tempera ture: 36.1 (C) / 97.0 (F) Weight: 158 lbs 06/27/2015 Blood Pressure 1: 128/78 Code: 8480-6 BMI: 18.7 Code: 75448-6 Heart Rate 1: 72 bpm Height: 6'4" Respiratory Rate: 22 bpm SpO2: 98% Tempera ture: 35.9 (C) / 96.6 (F) Weight: 154 lbs 05/24/2015 Blood Pressure 1: 112/78 Code: 8480-6 BMI: 19.7 Code: 31299-8 Heart Rate 1: 78 bpm Height: 6'4" [...] care Encounters Encounter Performer Location Codes Date ([id number]) OFFICE/OUTPATIENT VISIT EST Diagnosis: Sinus tachycardia[ICD10: R00.0] Diagnosis: Folliculitis[ICD10: L73.9] Janneth De Jesus OR ANTONY [employer] CPT-4: 51202 03/01/2019 ([id number]) OFFICE/OUTPATIENT VISIT EST Diagnosis: Cellulitis of left lower limb[ICD10: L03.116] Diagnosis: Tendinitis of left peroneus longus tendon[ICD10: M76.72] Janneth De Jesus SUEANNA [employer] CPT-4: 43823 11/18/2018 ([id number]) OFFICE/OUTPATIENT VISIT EST Diagnosis: Cellulitis of left foot[ICD10: L03.116] Diagnosis: Spontaneous ecchymoses[ICD10: R23.3] Diagnosis: Venous insufficiency (chronic) (peripheral)[ICD10: I87.2] Diagnosis: Mixed hyperlipidemia[ICD10: E78.2] Vania RAY S. AMBERER [employer] CPT-4: 77799 11/09/2018 ([id number]) OFFICE/OUTPATIENT VISIT EST Diagnosis: Venous insufficiency (chronic) (peripheral)[ICD10: I87.2] Diagnosis: Cellulitis of left lower limb[ICD10: L03.116] Diagnosis: Pain in right foot[ICD10: M79.671] Vania RAY S. SUENDER [employer] CPT-4: 74825 10/13/2018 ([id number]) OFFICE/OUTPATIENT VISIT EST Diagnosis: Low back pain[ICD10: M54.5] Vania WARD S. O RENDER [employer] CPT-4: 48755 09/23/2018 ([id number]) OFFICE/OUTPATIENT VISIT EST Diagnosis: Gastro-esophageal reflux disease without esophagitis[ICD10: K21.9] Diagnosis: Dysphagia, pharyngoesophageal phase[ICD10: R13.14] Janneth SHRESTHA [facility] CPT-4: 57564 09/06/2018 ([id number]) OFFICE/OUTPATIENT VISIT EST Diagnosis: Tinea corporis[ICD10: B35.4] Vania SHRESTHA DO [facility] CPT-4: 77072 07/15/2018 ([id number]) OFFICE/OUTPATIENT VISIT EST Diagnosis: Cellulitis of left toe[ICD10: L03.032] Diagnosis: Mixed hyperlipidemia[ICD10: E78.2] Mandy SHRESTHA [facility] CPT-4: 69939 2018 OFFICE/OUTPATIENT VISIT EST Diagnosis: Cellulitis of left toe[ICD10: L03.032] Diagnosis: Unspecified disturbances of skin sensation[ICD10: R20.9] Mandy SHRESTHA [facility] CPT-4: 66835 04/14/2018 ([id number]) OFFICE/OUTPATIENT VISIT EST Diagnosis: Cellulitis of left toe[ICD10: L03.032] Diagnosis: Insomnia, unspecified[ICD10: G47.00] Vania SHRESTHA [facility] CPT-4: 13773 03/18/2018 ([id number]) OFFICE/OUTPATIENT VISIT EST Diagnosis: Other postprocedural complications and disorders of the circulatory system, not elsewhere classified[ICD10: I97.89] Diagnosis: Rash and other nonspecific skin eruption[ICD10: R21] Diagnosis: Pain in right leg[ICD10: M79.604] Vania SHRESTHA [facility] CPT-4: 11544 01/26/2018 ([id number]) OFFICE/OUTPATIENT VISIT EST Diagnosis: Other postprocedural complications and disorders of the circulatory system, not elsewhere classified[ICD10: I97.89] Diagnosis: Cellulitis of right lower limb[ICD10: L03.115] Vania SHRESTHA DO [facility] CPT-4: 81775 12/22/2017 ([id number]) OFFICE/OUTPATIENT VISIT EST Diagnosis: Acute sinusitis, unspecified[ICD10: J01.90] Diagnosis: Unspecified disturbances of skin sensation[ICD10: R20.9] Vania SHRESTHA [employer] [facility] CPT-4: 17475 10/06/2017 ([id number]) OFFICE/OUTPATIENT VISIT EST Diagnosis: Primary insomnia[ICD10: F51.01] Diagnosis: Pain in left shoulder[ICD10: M25.512] Diagnosis: Poisoning by other parasympatholytics [anticholinergics and antimuscarinics] and spasmolytics, accidental (unintentional), sequela[ICD10: T44.3X1S] Janneth SHRESTHA [employer] [facility] CPT-4: 03277 02/03/2017 OFFICE/OUTPATIENT VISIT EST Diagnosis: Insomnia, unspecified[ICD10: G47.00] Diagnosis: Constipation, unspecified[ICD10: K59.00] Diagnosis: Spontaneous ecchymoses[ICD10: R23.3] Diagnosis: Pain in left foot[ICD10: M79.672] Vania SHRESTHA [employer] [facility] CPT-4: 71274 11/25/2016 OFFICE/OUTPATIENT VISIT EST Diagnosis: Insomnia, unspecified[ICD10: G47.00] Diagnosis: Constipation, unspecified[ICD10: K59.00] Diagnosis: Spontaneous ecchymoses[ICD10: R23.3] Diagnosis: Other specified local infections of the skin and subcutaneous tissue[ICD10: L08.89] Vania SHRESTHA [employer] [facility] CPT-4: 99 213 11/14/2016 ([id number]) OFFICE/OUTPATIENT VISIT EST Diagnosis: Acute upper respiratory infection, unspecified[ICD10: J06.9] Ester CLARK [employer] [facility] CPT-4: 97227 04/02/2016 ([id number]) OFFICE/OUTPATIENT VISIT EST Diagnosis: Acute upper respiratory infection, unspecified[ICD10: J06.9] Ester SHRESTHA [facility] CPT-4: 51875 11/29/2015 ([id number]) OFFICE/OUTPATIENT VISIT EST Diagnosis: Pain in thoracic spine[ICD10: M54.6] Diagnosis: Paresthesia of skin[ICD10: R20.2] Diagnosis: Dysphagia, unspecified[ICD10: R13.10] Ester SHRESTHA DO [employer] CPT-4: 60129 06/27/2015 ([id number]) OFFICE/OUTPATIENT VISIT NEW Diagnosis: Pain in left leg[ICD10: M79.605] Diagnosis: Male erectile dysfunction, unspecified[ICD10: N52.9] Diagnosis: Dysphagia, unspecified[ICD10: R13.10] Ester SHRESTHA DO [employer] CPT-4: 96123 05/24/2015 Plan of Care Planned Activity Notes Codes Status Date Visit Diagnosis Plan: Sinus tachycardia Discussion: St art low dose metoprolol ER 25mg daily Monitor pulse Sees Cardiology next month ICD-9 : 427.89 ICD-10 : R00.0 03/01/2019 Visit Diagnosis Plan: Folliculitis Discussion: Bactrim and topical bactroban ICD-9 : 704.8 ICD-10 : L73.9 03/01/2019 Patient Education: mupirocin- [employer] Coupon [id number] [email or web address] Completed 03/01/2019 Appointment: Janneth Shrestha WPtel: [address] [place], [place] [id number] US CANCELED 12/20/2018 Visit Diagnosis Plan: Cellulitis [...] ICD-10 : M76.72 11/18/2018 Appointment: Vania García [address] [place], [place] [id number] US CANCELED 11/18/2018 Appointment: Janneth Shrestha WPtel: [address] [place], [place] [id number] US FOLLOW UP 11/18/2018 Patient Education: doxycycline monohydrate- [employer] Coupon [id number] [email or web address]/resources/[email or web address] Completed 11/18/2018 Patient Education: prednisone- [employer] Coupon [phone] [email or web address]/getResource/[email or web address] Completed 11/18/2018 Care Plan: Referral Order SNOMED-CT : 30 [id number] Pending 11/18/2018 Visit Diagnosis Plan: Spontaneous ecchymoses [...] evaluated in an ED whether it be [place] or wherever he's traveling. discussed the risk of bone involvement and the importance of having it evaluated if worsens. follow up in office when he returns though if no worsening symptoms. ICD-9 : 682.7 ICD-10 : L03.116 11/09/2018 Visit Diagnosis Plan: Venous insufficiency (chronic) ( peripheral) Discussion: follow up with next week ICD-9 : 459.81 ICD-10 : I87.2 11/09/2018 Appointment: Vania García [address] [place], [place] [id number] ACUTE [facility] 11/09/2018 Patient Education: clindamycin HCl- [employer] Coupon [id number] [email or web address] Completed 11/09/2018 Appointment: Janneth Shrestha WPtel: [phone] [id number] US CANCELED 10/19/2018 Visit Diagnosis Plan: Pain [...] : L03.116 10/13/2018 Appointment: Vania García [address] [place], [place] [id number] Patient cant pay copay till when he [...] : M54.5 09/23/2018 App[facility]ment: [facility] Garc[facility] [address] [id number] [facility] 09/23/2018 Patient Education: Medrol ([place])- [employer] Coupon [phone] [email or web address] Completed 09/23/2018 Visit Diagnosis Plan: Dysphagia, pharyngoesophageal ph ase Discussion: Referral for EGD ICD-9 : 787.24 ICD-10 : R13.14 09/06/2018 Visit Diagnosis Plan: Gastro-esophageal reflux disease without esophagitis Discussion: Start omeprazole ICD-9 : 530.81 ICD-10 : K21.9 09/06/2018 Appointment: Janneth Shrestha [facility]Ptel: [phone] [id number] [facility] ACUTE ILLNESS 09/06/2018 Patient Education: omeprazole- [employer] Coupon [id number] https://www.[employer]/sampleWeShow/resources/getResource/61/977pj493-73k2-991q-26 Completed 09/06/2018 Care Plan: Referral Order SNOMED-CT : 30 [id number] Pending 09/06/2018 Visit Diagnosis Plan: Tinea corporis Discussion: nysta tin to be used bid until rash gone and then an additional 2 days. diflucan every 3 days for 3 doses. keep area clean and dry with no moisturizers. call office if no improvement in 2 weeks or if worsening. ICD-9 : 110.5 ICD-10 : B35.4 07/15/2018 Appointment: Vania García [address] [place], [place] [address] ACUTE ILLNESS 07/15/2018 Patient Education: nystatin- [employer] Coupon [id number] https://www.[employer]/sampleWeShow/resources/getResource/61/72paj644-z5zb-65fw-8t Completed 07/15/2018 Patient Education: Plavix- [employer] Coupon [id number] https://www.[employer]/samplemd/resources/getResource/61/34gb8o62-v94c-19az-26 fa-j852d3353550.pdf Completed 07/15/2018 Patient Education: cyclobenzaprine- [employer] Coupon [id number] https://www.[employer]/samplemd/resources/getResource/61/44543e9t-9u13-87j3-pa Completed 07/15/2018 Visit Diagnosis Plan: Cellulitis of [...] ICD-10 : L03.032 2018 Appointment: Mandy Hollins [address] [place], [place] [id number] FOLLOW UP 2018 Patient Education: mupirocin- [employer] Coupon [id number] https://www.[employer]/sampleWeShow/resources/getResource/61/t8zt29s9-0064-1287-7y Completed 2018 Visit Diagnosis Plan: Cellulitis of [...] ICD-10 : R20.9 04/14/2018 Appointment: Mandy Hollins [address] [place], [place] [id number] FOLLOW UP 04/14/2018 Visit Diagnosis Plan: Cellulitis [...] ICD-10 : G47.00 03/18/2018 Appointment: Vania García [address] [place], [place] [id number] ACUTE ILLNESS 03/18/2018 Patient Education: cyclobenzaprine- Opt[employer] Cash [id number] https://www.[employer]/samplemd/resources/getResource/61/7745v691-7cz7-602h-n0 Completed 03/18/2018 Visit Diagnosis Plan: Rash and other nonspecific skin eruption Discussion: triamcinolone ordered to be used as directed. ICD-9 : 782.1 ICD-10 : R21 01/26/2018 Visit Diagnosis Plan: Other postprocedur al complications and disorders of the circulatory system, not elsewhere classified Discussion: discussed with dr. shrestha and patient was instructed to contact the [facility] due to uncontrolled pain, continued erythema, patient needs to be re-evaluated by the surgeon. 60 mg toradol given to patient. patient verbalized understanding and voiced he will contact them today for an appointment. ICD-9 : 997.1 ICD-10 : I97.89 01/26/2018 Appointment: Vania García [address] [place] [address] Hospital Follow Up 01/26/2018 Appointment: Janneth Shrestha WPtel: [phone] [facility] [place] [address] LM NO SHOW 01/06/2018 Visit Diagnosis Plan: [...] : I97.89 12/22/2017 Appointment: Vania García [address] [place], [place] [id number] ACUTE ILLNESS 12/22/2017 Visit Diagnosis Plan: Unspecified [...] ICD-10 : J01.90 10/06/2017 Appointment: Vania García [address] [place] [address] ACUTE ILLNESS 10/06/2017 Patient Education: Patient Medication Summary Completed 10/06/2017 Appointment: Vania García [address] [place] [address] ER Follow UP 08/17/2017 Appointment: Vania García [address] [place] [address] [place] CANCELED 07/03/2017 Appointment: Janneth Shrestha WPtel: [phone] [address] [place] canceled at 8:05 this morning. CANCELED [...] : T44.3X1S 02/03/2017 Appointment: Janneth Shrestha WPtel: [phone] [facility] [facility] 02/03/2017 Patient Education: Patient [...] Discussion: re isabella sent for dr rose strip polisher. ICD-9 : 729.5 ICD-10 : M79.672 11/25/2016 Visit Diagnosis Plan: Insomnia, unspecified Recommenda tions: resolved with lunesta. continue taking as prescribed. ICD-9 : 780.52 ICD-10 : G47.00 11/25/2016 Appointment: Vania García [address] [place], [place] [address] FOLLOW UP 11/25/2016 Patient Education: Patient Medication [...] ICD-10 : L08.89 11/14/2016 Appointment: Vania García [address] [place] [address] ACUTE ILLNESS 11/14/2016 Patient Education: Patient Medication Summary Completed 11/14/2016 Visit Diagnosis Plan: Acute upper respiratory infectio n, unspecified Discussion: Rxs as above Continue OTC and supportive meds Encouraged smoking cessation Follow up PRN ICD-9 : 465.9 ICD-10 : J06.9 04/02/2016 Appointment: Ester Grande [address] [place] [address] ACUTE ILLNESS 04/02/2016 Patient Education: Patient Medication Summary Completed 04/02/2016 Visit Plan: Rxs as above Supportive care reviewed Follow up PRN 11/29/2015 Appointment: Ester Grande [address] [place] [address] 11/27 confirmed~ ACUTE ILLNESS 11/29/2015 Patient Education: [...] use for pain 06/27/2015 Appointment: Ester Grande [address] [place], [place] [id number] 06/25 lm ~ 06/26 phone not on~ FOLLOW UP 06/27/2015 Patient Education: Patient Medication Summary Completed 06/27/2015 Care Plan: X-RAY EXAM RIBS UNI 2 VIEWS L OINC : 91596-5 Pending 06/27/2015 Referral: Héctor Woodard WPtel: [phone] [facility]66[facility] 05/29 Scheduled with sena ~sl Appointment Re quested 06/26/2015 Referral: Cameron Khanna WPtel: [phone] [address] [place] Referral Initiated 06/11/2015 Referral: Marco Antonio Green WPtel: [phone] 05/30/15 Needs to be there at pre op time per ~sl Initiated 06/04/2015 Visit Plan: Will get all necessary refer rals set up - CTS, Uro and G/S Swallow study and routine labs ordered Will further investigate left leg pain with EMG if not cardio related 05/24/2015 Appointment: Ester Grande [address] NEW PATIENT 05/24/2015 Patient Education: Patient Medication Summary Completed 05/24/2015 Care Plan: Referral Order SNOMED-CT : 30 8225007 Pending 05/24/2015 Care Plan: Referral Order SNOMED-CT : 30 5175662 Pending 05/24/2015 Care Plan: Referral Order SNOMED-CT : 30 4703529 Pending 05/24/2015 Referral: Sudheer Gann WPtel: [phone] [address] [place] Referral Appointment Requested Referral: Alfonzo Andujar WPtel: [address] [address] [place] Referral Initiated Referral: Cameron Khanna WPtel: [phone] [address] [place] Referral Appointment Requested Referral: Brianna Rose WPtel: [phone] [address] [place] Referral Initiated Referral: Héctor Woodard WPtel: [phone] 05/24/15 [facility]. ~sl Initiated Referral: Alfonzo Andujar WPtel: [address] [address] [place] Referral Appointment Requested Referral: Marco Antonio Green WPtel: [phone] [id number] [place] Referral Appointment Requested Instructions Comment . [...]
--- OUTSIDE RECORDS SUMMARY | 2019-08-06 10:34 | XMS REPORT | Continuity of Care Document ---
Author Organization Unknown Address Unknown Phone Unavailable Allergies Active Description Code Type Severity Reaction Onset Reported/Identified Relationship to Patient Clinical Status Yes cefaclor [id number] Drug Allergy Mild N/A 11/10/2018 Yes Penicillins [id number] Drug Aller gy Mild N/A 11/10/2018 Medications There is no data. Problems Date Dx Coded Attending Type Code Diagnosis Diagnosed By 01/15/1201 OTILIO MARKS Ot I70.213 [facility] [place] ARTERIES OF EXTRM W INTRMT 05/31/2015 JACKIE GONZALEZ APRN Ot R13.10 05/31/2015 JACKIE GONZALEZ APRN Ot R13.10 06/01/2015 AZUCENA MAATO, QUINTEN Narayanan Ot Z01.818 ENCOUNTER FOR OTHER PREPROCEDURAL EXAMIN 06/01/2015 JACKIE GONZALEZ APRN Ot R13.10 DYSPHAGIA, UNSPECIFIED 06/04/2015 JACKIE GONZALEZ APRN Ot R13.10 DYSPHAGIA, UNSPECIFIED 06/04/2015 JACKIE GONZALEZ APRN Ot R13.10 DYSPHAGIA, UNSPECIFIED 06/05/2015 AZUCENA AMATO, QUINTEN Narayanan Ot Z12.11 ENCOUNTER FOR SCREENING FOR MALIGNANT NE 06/06/2015 AZUCENA AMATO, QUINTEN Narayanan Ot Z12.11 ENCOUNTER FOR SCREENING FOR MALIGNANT NE 06/06/2015 AZUCENA AMATO, QUINTEN Narayanan Ot Z12.11 ENCOUNTER FOR SCREENING FOR MALIGNANT NE 06/07/2015 AZUCENA AMATO, QUINTEN Narayanan Ot Z01.818 ENCOUNTER FOR OTHER PREPROCEDURAL EXAMIN 06/10/2015 AZUCENA AMATO, QUINTEN Narayanan Ot Z12.11 ENCOUNTER FOR SCREENING FOR MALIGNANT NE 06/11/2015 JACKIE GONZALEZ APRN Ot R13.10 DYSPHAGIA, UNSPECIFIED 06/11/2015 AZUCENA AMATO, QUINTEN Narayanan Ot Z12.11 ENCOUNTER FOR SCREENING FOR MALIGNANT NE 06/14/2015 JACKIE GONZALEZ APRN Ot R13.10 DYSPHAGIA, UNSPECIFIED 06/20/2015 AZUCENA AMATO, QUINTEN Narayanan Ot Z12.11 ENCOUNTER FOR SCREENING FOR MALIGNANT NE 07/02/2015 JACKIE GONZALEZ APRN Ot M54.6 PAIN IN THORACIC SPINE 07/02/2015 JACKIE GONZALEZ APRN Ot R07.81 PLEURODYNIA 07/03/2015 JACKIE GONZALEZ APRN Ot M54.6 PAIN IN THORACIC SPINE 07/03/2015 JACKIE GONZALEZ APRN Ot R07.81 PLEURODYNIA 07/17/2015 JACKIE GONZALEZ APRN Ot M54.6 PAIN IN THORACIC SPINE 07/17/2015 JACKIE GONZALEZ APRN Ot R07.81 PLEURODYNIA 08/01/2015 Ot F17.210 NI COTINE DEPENDENCE, CIGARETTES, UNCOMPL 08/23/2015 Ot F17.210 NI COTINE DEPENDENCE, CIGARETTES, UNCOMPL 09/13/2015 LARS AMATO FACC, ALI FACP CCDS Ot 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 09/13/2015 LARS WATSONC, ALI FACP CCDS Ot R94.31 ABNORMAL ELECTROCARDIOGRAM [ECG] [EKG] 09/13/2015 LARS AMATO FACC, ALI FACP CCDS Ot Z72.0 TOBACCO USE 11/01/2015 JACKIE GONZALEZ APRN Ot M54.6 PAIN IN THORACIC SPINE 11/01/2015 JACKIE GONZALEZ APRN Ot R07.81 PLEURODYNIA 11/01/2015 Ot F17.210 NI COTINE DEPENDENCE, CIGARETTES, UNCOMPL 11/01/2015 LARS AMATO FACC, ALI FACP CCDS Ot 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 11/01/2015 LARS AMATO FACC, ALI FACP CCDS Ot R94.31 ABNORMAL ELECTROCARDIOGRAM [ECG] [EKG] 11/01/2015 LARS AMATO FACC, ALI FACP CCDS Ot Z72.0 TOBACCO USE 05/09/2016 JACKIE GONZALEZ APRN Ot M54.6 PAIN IN THORACIC SPINE 05/09/2016 JACKIE GONZALEZ APRN Ot R07.81 PLEURODYNIA 05/09/2016 Ot F17.210 NI COTINE DEPENDENCE, CIGARETTES, UNCOMPL 05/09/2016 LARS AMATO FACC, ALI FACP CCDS Ot 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 05/09/2016 LARS WATSONC, ALI FACP CCDS Ot R94.31 ABNORMAL ELECTROCARDIOGRAM [ECG] [EKG] 05/09/2016 LARS AMATO FACC, ALI FACP CCDS Ot Z72.0 TOBACCO USE 05/12/2016 JACKIE GONZALEZ SALES MANAGEMENT TRAINEE Ot M54.6 PAIN IN THORACIC SPINE 05/12/2016 JACKIE GONZALEZ SALES MANAGEMENT TRAINEE Ot R07.81 PLEURODYNIA 05/12/2016 Ot F17.210 NI COTINE DEPENDENCE, CIGARETTES, UNCOMPL 05/12/2016 LARS AMATO FACC, ALI FACP CCDS Ot 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 05/12/2016 LARS AMATO FACC, ALI FACP CCDS Ot R94.31 ABNORMAL ELECTROCARDIOGRAM [ECG] [EKG] 05/12/2016 LARS AMATO FACC, ALI FACP CCDS Ot Z72.0 TOBACCO USE 05/15/2016 JACKIE GONZALEZ SALES MANAGEMENT TRAINEE Ot M54.6 PAIN IN THORACIC SPINE 05/15/2016 JACKIE GONZALEZ SALES MANAGEMENT TRAINEE Ot R07.81 PLEURODYNIA 05/15/2016 Ot F17.210 NI COTINE DEPENDENCE, CIGARETTES, UNCOMPL 05/15/2016 LARS AMATO FACC, ALI FACP CCDS Ot 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 05/15/2016 LARS AMATO FACC, ALI FACP CCDS Ot R94.31 ABNORMAL ELECTROCARDIOGRAM [ECG] [EKG] 05/15/2016 LARS AMATO FACC, ALI FACP CCDS Ot Z72.0 TOBACCO USE 05/16/2016 LARS AMATO FACC, ALI FACP CCDS Ot 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 05/16/2016 LARS AMATO FACC, ALI FACP CCDS Ot R94.31 ABNORMAL ELECTROCARDIOGRAM [ECG] [EKG] 05/16/2016 LARS AMATO FACC, ALI FACP CCDS Ot Z72.0 TOBACCO USE 06/02/2016 LARS WATSONC, ALI FACP CCDS Ot 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 06/02/2016 LARS AMATO FACC, ALI FACP CCDS Ot R94.31 ABNORMAL ELECTROCARDIOGRAM [ECG] [EKG] 06/02/2016 LARS WATSONC, ALI FACP CCDS Ot Z72.0 TOBACCO USE 06/18/2016 LARS WATSONC, ALI FACP CCDS Ot 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 06/18/2016 LARS WATSONC, ALI FACP CCDS Ot R94.31 ABNORMAL ELECTROCARDIOGRAM [ECG] [EKG] 06/18/2016 LARS AMATO FACC, ALI FACP CCDS Ot Z72.0 TOBACCO USE 07/16/2016 JACKIE GONZALEZ SALES MANAGEMENT TRAINEE Ot M54.6 PAIN IN THORACIC SPINE 07/16/2016 JACKIE GONZALEZ APRN Ot R07.81 PLEURODYNIA 07/16/2016 Ot F17.210 NI COTINE DEPENDENCE, CIGARETTES, UNCOMPL 07/16/2016 LARS WATSONC, ALI FACP CCDS Ot 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 07/16/2016 LARS AMATO FACC, ALI FACP CCDS Ot R94.31 ABNORMAL ELECTROCARDIOGRAM [ECG] [EKG] 07/16/2016 LARS AMATO FACC, ALI FACP CCDS Ot Z72.0 TOBACCO USE 07/16/2016 LARS AMATO FACC, ALI FACP CCDS Ot 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 07/16/2016 LARS WATSONC, ALI FACP CCDS Ot R94.31 ABNORMAL ELECTROCARDIOGRAM [ECG] [EKG] 07/16/2016 LARS AMATO FACC, ALI FACP CCDS Ot Z72.0 TOBACCO USE 07/16/2016 LARS AMATO FACC, ALI FACP CCDS Ot 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 07/16/2016 LARS WATSONC, ALI FACP CCDS Ot R94.31 ABNORMAL ELECTROCARDIOGRAM [ECG] [EKG] 07/16/2016 LARS AMATO FACC, ALI FACP CCDS Ot Z72.0 TOBACCO USE 07/17/2016 JACKIE GONZALEZ SALES MANAGEMENT TRAINEE Ot M54.6 PAIN IN THORACIC SPINE 07/17/2016 JACKIE GONZALEZ SALES MANAGEMENT TRAINEE Ot R07.81 PLEURODYNIA 07/17/2016 Ot F17.210 NI COTINE DEPENDENCE, CIGARETTES, UNCOMPL 07/17/2016 LARS WATSONC, ALI FACP CCDS Ot 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 07/17/2016 LARS AMATO FACC, ALI FACP CCDS Ot R94.31 ABNORMAL ELECTROCARDIOGRAM [ECG] [EKG] 07/17/2016 LARS AMATO FACC, ALI FACP CCDS Ot Z72.0 TOBACCO USE 07/17/2016 LARS WATSONC, ALI FACP CCDS Ot 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 07/17/2016 LARS AMATO FACC, ALI FACP CCDS Ot R94.31 ABNORMAL ELECTROCARDIOGRAM [ECG] [EKG] 07/17/2016 LARS AMATO FACC, ALI FACP CCDS Ot Z72.0 TOBACCO USE 07/17/2016 LARS WATSONC, ALI FACP CCDS Ot 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 07/17/2016 LARS AMATO FACC, ZEE FACP CCDS Ot R94.31 ABNORMAL ELECTROCARDIOGRAM [ECG] [EKG] 07/17/2016 LARS AMATO FACC, ALI FACP CCDS Ot Z72.0 TOBACCO USE 07/21/2016 JACKIE GONZALEZ SALES MANAGEMENT TRAINEE Ot M54.6 PAIN IN THORACIC SPINE 07/21/2016 JACKIE GONZALEZ SALES MANAGEMENT TRAINEE Ot R07.81 PLEURODYNIA 07/21/2016 Ot F17.210 NI COTINE DEPENDENCE, CIGARETTES, UNCOMPL 07/21/2016 LARS WATSONC, ALI FACP CCDS Ot 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 07/21/2016 LARS AMATO FACC, ZEE FACP CCDS Ot R94.31 ABNORMAL ELECTROCARDIOGRAM [ECG] [EKG] 07/21/2016 LARS AMATO FACC, ALI FACP CCDS Ot Z72.0 TOBACCO USE 07/21/2016 LARS AMATO FACC, ALI FACP CCDS Ot 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 07/21/2016 LARS AMATO FACC, ALI FACP CCDS Ot R94.31 ABNORMAL ELECTROCARDIOGRAM [ECG] [EKG] 07/21/2016 LARS AMATO FACC, ALI FACP CCDS Ot Z72.0 TOBACCO USE 07/21/2016 LARS MD FACC, ALI FACP CCDS Ot 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 07/21/2016 LARS AMATO FACC, ALI FACP CCDS Ot R94.31 ABNORMAL ELECTROCARDIOGRAM [ECG] [EKG] 07/21/2016 LARS AMATO FACC, ALI FACP CCDS Ot Z72.0 TOBACCO USE 07/22/2016 JACKIE GONZALEZ SALES MANAGEMENT TRAINEE Ot M54.6 PAIN IN THORACIC SPINE 07/22/2016 JACKIE GONZALEZ SALES MANAGEMENT TRAINEE Ot R07.81 PLEURODYNIA 07/22/2016 Ot F17.210 NI COTINE DEPENDENCE, CIGARETTES, UNCOMPL 07/22/2016 LARS AMATO FACC, ALI FACP CCDS Ot 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 07/22/2016 LARS AMATO FACC, ALI FACP CCDS Ot R94.31 ABNORMAL ELECTROCARDIOGRAM [ECG] [EKG] 07/22/2016 LARS AMATO FACC, ALI FACP CCDS Ot Z72.0 TOBACCO USE 07/22/2016 LARS AMATO FACC, ALI FACP CCDS Ot 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 07/22/2016 LARS AMATO FACC, ALI FACP CCDS Ot R94.31 ABNORMAL ELECTROCARDIOGRAM [ECG] [EKG] 07/22/2016 LARS AMATO FACC, ALI FACP CCDS Ot Z72.0 TOBACCO USE 07/22/2016 LARS AMATO FACC, ALI FACP CCDS Ot 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 07/22/2016 LARS AMATO FACC, ALI FACP CCDS Ot R94.31 ABNORMAL ELECTROCARDIOGRAM [ECG] [EKG] 07/22/2016 LARS AMATO FACC, ALI FACP CCDS Ot Z72.0 TOBACCO USE 07/23/2016 LARS AMATO FACC, ALI FACP CCDS Ot I70.213 [facility] [place] [facility] OF EXTRM W INTRMT 07/23/2016 LARS AMATO FACC, ALI FACP CCDS Ot I70.92 CHRONIC TOTAL OCCLUSION OF ARTERY OF THE 07/23/2016 LARS AMATO FACC, ALI FACP CCDS Ot R94.31 ABNORMAL ELECTROCARDIOGRAM [ECG] [EKG] 07/23/2016 LARS AMATO FACC, ALI FACP CCDS Ot Z72.0 TOBACCO USE 07/23/2016 LARS WATSONC, ALI FACP CCDS Ot Z95.820 PERIPHERAL VASCULAR ANGIOPLASTY STATUS W 07/25/2016 LARS AMATO FACC, ALI FACP CCDS Ot I70.213 [facility] [place] [facility] OF EXTRM W [facility] 07/25/2016 LARS AMATO FACC, ALI FACP CCDS Ot I70.92 CHRONIC TOTAL OCCLUSION OF ARTERY OF THE 07/25/2016 LARS AMATO FACC, ALI FACP CCDS Ot R94.31 ABNORMAL ELECTROCARDIOGRAM [ECG] [EKG] 07/25/2016 LARS AMATO FACC, ALI FACP CCDS Ot Z72.0 TOBACCO USE 07/25/2016 LARS AMATO FACC, ALI FACP CCDS Ot Z95.820 PERIPHERAL VASCULAR ANGIOPLASTY STATUS W 08/06/2016 LARS AMATO FACC, ALI FACP CCDS Ot I45.10 UNSPECIFIED RIGHT BUNDLE-BRANCH BLOCK 08/06/2016 LARS AMATO FACC, ALI FACP CCDS Ot I70.213 [facility] [place] [facility] OF EXTRM W [facility] 08/06/2016 LARS AMATO FACC, ALI FACP CCDS Ot I70.92 CHRONIC TOTAL OCCLUSION OF ARTERY OF THE 08/06/2016 LARS AMATO FACC, ALI FACP CCDS Ot Z72.0 TOBACCO USE 08/06/2016 LARS AMATO FACC, ALI FACP CCDS Ot Z79.899 OTHER BUSINESS MANAGEMENT ASSOCIATE (CURRENT) DRUG THERAPY 08/06/2016 LARS AMATO FACC, ALI FACP CCDS Ot Z95.820 PERIPHERAL VASCULAR ANGIOPLASTY STATUS W 08/08/2016 LARS AMATO FACC, ALI FACP CCDS Ot I45.10 UNSPECIFIED RIGHT BUNDLE-BRANCH BLOCK 08/08/2016 LARS AMATO FACC, ALI FACP CCDS Ot I70.213 [facility] [place] [facility] OF EXTRM W [facility] 08/08/2016 LARS AMATO FACC, ALI FACP CCDS Ot I70.92 CHRONIC TOTAL OCCLUSION OF ARTERY OF THE 08/08/2016 LARS AMATO FACC, ALI FACP CCDS Ot Z72.0 TOBACCO USE 08/08/2016 LARS AMATO FACC, ALI FACP CCDS Ot Z79.899 OTHER SNF (CURRENT) DRUG THERAPY 08/08/2016 LARS AMATO FACC, ALI FACP CCDS Ot Z95.820 PERIPHERAL VASCULAR ANGIOPLASTY STATUS W 08/11/2016 LARS AMATO FACC, ALI FACP CCDS Ot I45.10 UNSPECIFIED RIGHT BUNDLE-BRANCH BLOCK 08/11/2016 LARS AMATO FACC, ALI FACP CCDS Ot I70.213 A[facility]CL [place] ARTERIES OF EXTRM W INTRMT 08/11/2016 LARS AMATO FACC, ALI FACP CCDS Ot I70.92 CHRONIC TOTAL OCCLUSION OF ARTERY OF THE 08/11/2016 LARS AMATO FACC, ALI FACP CCDS Ot Z72.0 TOBACCO USE 08/11/2016 LARS AMATO FACC, ALI FACP CCDS Ot Z79.899 OTHER SNF (CURRENT) DRUG THERAPY 08/11/2016 LARS AMATO FACC, ALI FACP CCDS Ot Z95.820 PERIPHERAL VASCULAR ANGIOPLASTY STATUS W 01/30/2017 JANNETH SHRESTHA DO S Ot F10.129 ALCOHOL ABUSE WITH INTOXICATION, UNSPECI 01/30/2017 JANNETH SHRESTHA DO S Ot F17.210 NICOTINE DEPENDENCE, CIGARETTES, UNCOMPL 01/30/2017 ANGELIQUE SHRESTHA DOLINE S Ot S00.81XA ABRASION OF OTHER PART OF HEAD, INITIAL 01/30/2017 ANGELIQUE SHRESTHA DOLINE S Ot S80.211A ABRASION, RIGHT KNEE, INITIAL ENCOUNTER 01/30/2017 JANNETH SHRESTHA DO S Ot T42.6X2A POISN BY OTH ANTIEPLPTC AND SED-HYPNTC D 01/30/2017 JANNETH SHRESTHA DO S Ot T51.0X2A TOXIC EFFECT OF ETHANOL, INTENTIONAL JEAN-CLAUDE 01/30/2017 JANNETH SHRESTHA DO S Ot W19.XXXA UNSPECIFIED FALL, INITIAL ENCOUNTER 01/30/2017 JANNETH SHRESTHA DO S Ot Y92.[address] IN SINGLE-FAMILY (PRIVATE) HO 01/30/2017 JANNETH SHRESTHA DO S Ot Z63.0 PROBLEMS IN RELATIONSHIP WITH SPOUSE OR 01/30/2017 ANGELIQUE SHRESTHA DOLINE S Ot Z79.82 SNF (CURRENT) USE OF ASPIRIN 01/30/2017 ANGELIQUE SHRESTHA DOLINE S Ot Z79.899 OTHER BUSINESS MANAGEMENT ASSOCIATE (CURRENT) DRUG THERAPY 01/30/2017 ANGELIQUE SHRESTHA DOLINE S Ot Z95.828 PRESENCE OF OTHER VASCULAR IMPLANTS AND 01/31/2017 CARLOS JACKIE Ramires APRN Ot M54.6 PAIN IN THORACIC SPINE 01/31/2017 CARLOS JACKIEMURIEL Ramires APRN Ot R07.81 PLEURODYNIA 01/31/2017 Ot F17.210 NI COTINE DEPENDENCE, CIGARETTES, UNCOMPL 01/31/2017 LARS AMATO FACC, ALI FACP CCDS Ot 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 01/31/2017 LARS AMATO FACC, ALI FACP CCDS Ot R94.31 ABNORMAL ELECTROCARDIOGRAM [ECG] [EKG] 01/31/2017 LARS AMATO FACC, ALI FACP CCDS Ot Z72.0 TOBACCO USE 01/31/2017 LARS AMATO FACC, ALI FACP CCDS Ot 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 01/31/2017 LARS AMATO FACC, ALI FACP CCDS Ot R94.31 ABNORMAL ELECTROCARDIOGRAM [ECG] [EKG] 01/31/2017 LARS AMATO FACC, ALI FACP CCDS Ot Z72.0 TOBACCO USE 01/31/2017 LARS AMATO FACC, ALI FACP CCDS Ot 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 01/31/2017 LARS AMATO FACC, ALI FACP CCDS Ot R94.31 ABNORMAL ELECTROCARDIOGRAM [ECG] [EKG] 01/31/2017 LARS WATSONC, ALI FACP CCDS Ot Z72.0 TOBACCO USE 01/31/2017 JACKIE GONZALEZ APRN Ot M54.6 PAIN IN THORACIC SPINE 01/31/2017 JACKIE GONZALEZ APRN Ot R07.81 PLEURODYNIA 01/31/2017 Ot F17.210 NI COTINE DEPENDENCE, CIGARETTES, UNCOMPL 01/31/2017 LARS AMATO FACC, ALI FACP CCDS Ot 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 01/31/2017 LARS AMATO FACC, ALI FACP CCDS Ot R94.31 ABNORMAL ELECTROCARDIOGRAM [ECG] [EKG] 01/31/2017 LARS AMATO FACC, ALI FACP CCDS Ot Z72.0 TOBACCO USE 01/31/2017 LARS AMATO FACC, ALI FACP CCDS Ot 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 01/31/2017 LARS AMATO FACC, ALI FACP CCDS Ot R94.31 ABNORMAL ELECTROCARDIOGRAM [ECG] [EKG] 01/31/2017 LARS AMATO FACC, ALI FACP CCDS Ot Z72.0 TOBACCO USE 01/31/2017 LARS AMATO FACC, ALI FACP CCDS Ot 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 01/31/2017 LARS AMATO FACC, ALI FACP CCDS Ot R94.31 ABNORMAL ELECTROCARDIOGRAM [ECG] [EKG] 01/31/2017 LARS AMATO FACC, ALI FACP CCDS Ot Z72.0 TOBACCO USE 04/15/2017 LARS AMATO FACC, ALI FACP CCDS Ot F17.210 NICOTINE DEPENDENCE, CIGARETTES, UNCOMPL 04/15/2017 LARS AMATO FACC, ALI FACP CCDS Ot I73.9 PERIPHERAL VASCULAR DISEASE, UNSPECIFIED 04/15/2017 LARS AMATO FACC, ALI FACP CCDS Ot Z79.02 BUSINESS MANAGEMENT ASSOCIATE (CURRENT) USE OF ANTITHROMBOTI 04/15/2017 LARS AMATO FACC, ALI FACP CCDS Ot 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) 04/16/2017 LARS WATSONC, ALI FACP CCDS Ot F17.210 NICOTINE DEPENDENCE, CIGARETTES, UNCOMPL 04/16/2017 LARS WATSONC, ALI FACP CCDS Ot I73.9 PERIPHERAL VASCULAR DISEASE, UNSPECIFIED 04/16/2017 LARS AMATO FACC, ALI FACP CCDS Ot Z79.02 SNF (CURRENT) USE OF ANTITHROMBOTI 04/16/2017 LARS WATSONC, ALI FACP CCDS Ot 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) 06/17/2017 LARS WATSONC, ALI FACP CCDS Ot E78.5 HYPERLIPIDEMIA, UNSPECIFIED 06/17/2017 LARS AMATO FACC, ALI FACP CCDS Ot 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 06/17/2017 LARS AMATO FACC, ALI FACP CCDS Ot R94.31 ABNORMAL ELECTROCARDIOGRAM [ECG] [EKG] 06/22/2017 LARS WATSONC, ALI FACP CCDS Ot E78.5 HYPERLIPIDEMIA, UNSPECIFIED 06/22/2017 LARS MD FACC, ALI FACP CCDS Ot 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 06/22/2017 LARS AMATO FACC, ALI FACP CCDS Ot R94.31 ABNORMAL ELECTROCARDIOGRAM [ECG] [EKG] 07/06/2017 LARS WATSONC, ALI FACP CCDS Ot E78.5 HYPERLIPIDEMIA, UNSPECIFIED 07/06/2017 LARS AMATO FACC, ALI FACP CCDS Ot 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 07/06/2017 LARS AMATO FACC, ALI FACP CCDS Ot R94.31 ABNORMAL ELECTROCARDIOGRAM [ECG] [EKG] 07/07/2017 LARS WATSONC, ALI FACP CCDS Ot E78.5 HYPERLIPIDEMIA, UNSPECIFIED 07/07/2017 LARS AMATO FACC, ALI FACP CCDS Ot 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 07/07/2017 LARS WATSONC, ALI FACP CCDS Ot R94.31 ABNORMAL ELECTROCARDIOGRAM [ECG] [EKG] 07/07/2017 LARS AMATO FACC, ALI FACP CCDS Ot E78.5 HYPERLIPIDEMIA, UNSPECIFIED 07/07/2017 LARS WATSONC, ALI FACP CCDS Ot 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 07/07/2017 LARS AMATO FACC, ALI FACP CCDS Ot R94.31 ABNORMAL ELECTROCARDIOGRAM [ECG] [EKG] 07/23/2017 LARS AMATO FACC, ALI FACP CCDS Ot E78.5 HYPERLIPIDEMIA, UNSPECIFIED 07/23/2017 LARS WATSONC, ALI FACP CCDS Ot 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 07/23/2017 LARS WATSONC, ALI FACP CCDS Ot R94.31 ABNORMAL ELECTROCARDIOGRAM [ECG] [EKG] 11/23/2017 LARS AMATO FACC, ALI FACP CCDS Ot E78.5 HYPERLIPIDEMIA, UNSPECIFIED 11/23/2017 LARS AMATO FACC, ALI FACP CCDS Ot 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 11/23/2017 ALRS WATSONC, ALI FACP CCDS Ot R94.31 ABNORMAL ELECTROCARDIOGRAM [ECG] [EKG] 12/16/2017 LARS MD FACC, ALI FACP CCDS Ot E78.5 HYPERLIPIDEMIA, UNSPECIFIED 12/16/2017 LARS AMATO FACC, ALI FACP CCDS Ot G62.9 POLYNEUROPATHY, UNSPECIFIED 12/16/2017 LARS AMATO FACC, ALI FACP CCDS Ot I70.201 UNSP A[facility]SCL [place] [facility] 12/16/2017 LARS AMATO FACC, ALI FACP CCDS Ot R00.2 PALPITATIONS 12/16/2017 LARS AMATO FACC, ALI FACP CCDS Ot Z11.2 ENCOUNTER FOR SCREENING FOR OTHER BACTER 12/16/2017 LARS WATSONC, ALI FACP CCDS Ot Z72.0 TOBACCO USE 12/16/2017 LARS AMATO FACC, ALI FACP CCDS Ot Z79.01 SNF (CURRENT) USE OF ANTICOAGULANT 12/16/2017 LARS AMATO FACC, ALI FACP CCDS Ot Z79.82 BUSINESS MANAGEMENT ASSOCIATE (CURRENT) USE OF ASPIRIN 12/16/2017 LARS AMATO FACC, ALI FACP CCDS Ot 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) 12/16/2017 LARS AMATO FACC, ALI FACP CCDS Ot Z95.5 PRESENCE OF CORONARY ANGIOPLASTY IMPLANT 12/17/2017 LARS AMATO FACC, ALI FACP CCDS Ot E78.5 HYPERLIPIDEMIA, UNSPECIFIED 12/17/2017 LARS AMATO FACC, ALI FACP CCDS Ot G62.9 POLYNEUROPATHY, UNSPECIFIED 12/17/2017 LARS AMATO FACC, ALI FACP CCDS Ot I70.201 UNSP ATHSCL [place] [facility] 12/17/2017 LARS AMATO FACC, ALI FACP CCDS Ot R00.2 PALPITATIONS 12/17/2017 LARS AMATO FACC, ALI FACP CCDS Ot Z11.2 ENCOUNTER FOR SCREENING FOR OTHER BACTER 12/17/2017 LARS AMATO FACC, ALI FACP CCDS Ot Z72.0 TOBACCO USE 12/17/2017 LARS AMATO FACC, ALI FACP CCDS Ot Z79.01 SNF (CURRENT) USE OF ANTICOAGULANT 12/17/2017 LARS AMATO FACC, ALI FACP CCDS Ot Z79.82 BUSINESS MANAGEMENT 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 (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) USE OF ASPIRIN 12/17/2017 LARS WATSONC, ALI FACP CCDS Ot 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) 12/17/2017 LARS AMATO FACC, ZEE FACP CCDS Ot Z95.5 PRESENCE OF CORONARY ANGIOPLASTY IMPLANT 12/21/2017 LARS AMATO FACC, ZEE FACP CCDS Ot E78.5 HYPERLIPIDEMIA, UNSPECIFIED 12/21/2017 LARS AMATO FACC, ALI FACP CCDS Ot G62.9 POLYNEUROPATHY, UNSPECIFIED 12/21/2017 LARS AMATO FACC, ZEE FACP CCDS Ot 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 12/21/2017 ZEE SOUSA MD, FACC FACP CCDS Ot R00.2 PALPITATIONS 12/21/2017 ZEE SOUSA MD, FACC FACP CCDS Ot Z11.2 ENCOUNTER FOR SCREENING FOR OTHER BACTER 12/21/2017 ZEE SOUSA MD, FACC FACP CCDS Ot Z72.0 TOBACCO USE 12/21/2017 LARS AMATO FACC ALI FACP CCDS Ot Z79.01 BUSINESS MANAGEMENT ASSOCIATE (CURRENT) USE OF ANTICOAGULANT 12/21/2017 ZEE SOUSA MD, FACC FACP CCDS Ot Z79.82 BUSINESS MANAGEMENT ASSOCIATE (CURRENT) USE OF ASPIRIN 12/21/2017 LARS AMATO FACC, ALI FACP CCDS Ot 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) 12/21/2017 LARS AMATO FACC, ZEE FACP CCDS Ot Z95.5 PRESENCE OF CORONARY ANGIOPLASTY IMPLANT 01/18/2018 LARS AMATO FACC, ZEE FACP CCDS Ot 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 01/18/2018 ZEE SOUSA MD, FACC FACP CCDS Ot M79.604 PAIN IN RIGHT LEG 01/18/2018 LARS AMATO FACC, ALI FACP CCDS Ot Z72.0 TOBACCO USE 01/18/2018 LARS AMATO FACC, ALI FACP CCDS Ot Z95.828 PRESENCE OF OTHER VASCULAR IMPLANTS AND 01/19/2018 ZEE SOUSA MD, FACC FACP CCDS Ot E78.5 HYPERLIPIDEMIA, UNSPECIFIED 01/19/2018 LARS AMATO FACC, ALI FACP CCDS Ot 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 01/19/2018 ZEE SOUSA MD, FACC FACP CCDS Ot R94.31 ABNORMAL ELECTROCARDIOGRAM [ECG] [EKG] 01/19/2018 ZEE SOUSA MD, FACC [facility] CCDS Ot 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 01/19/2018 LARS AMATO FACC, ALI FACP CCDS Ot M79.604 PAIN IN RIGHT LEG 01/19/2018 LARS AMATO FACC, ALI FACP CCDS Ot Z72.0 TOBACCO USE 01/19/2018 LARS AMATO FACC, ALI FACP CCDS Ot Z95.828 PRESENCE OF OTHER VASCULAR IMPLANTS AND 01/19/2018 JUS ASHER MD Ot A41.9 SEPSIS, UNSPECIFIED ORGANISM 01/19/2018 JUS ASHER MD Ot E87.6 HYPOKALEMIA 01/19/2018 JUS ASHER MD Ot G89.18 OTHER ACUTE POSTPROCEDURAL PAIN 01/19/2018 JUS ASHER MD, Ot I48.91 UNSPECIFIED ATRIAL FIBRILLATION 01/19/2018 JUS ASHER MD Ot I73.9 PERIPHERAL VASCULAR DISEASE, UNSPECIFIED 01/19/2018 JUS ASHER MD Ot M79.651 PAIN IN RIGHT THIGH 01/19/2018 JUS ASHER MD, Ot M96.89 OTH INTRAOP AND POSTPROC COMP AND DISORD 01/19/2018 JUS ASHER MD, Ot Z79.01 BUSINESS MANAGEMENT ASSOCIATE (CURRENT) USE OF ANTICOAGULANT 01/19/2018 JUS ASHER MD Ot Z79.02 BUSINESS MANAGEMENT ASSOCIATE (CURRENT) USE OF ANTITHROMBOTI 01/19/2018 JUS ASHER MD Ot Z86.718 PERSONAL HISTORY OF OTHER VENOUS THROMBO 01/19/2018 JUS ASHER MD, Ot Z87.19 PERSONAL HISTORY OF OTHER DISEASES OF TH 01/19/2018 JUS ASHER MD, Ot Z87.891 PERSONAL HISTORY OF NICOTINE DEPENDENCE 01/19/2018 JUS ASHER MD, Ot Z88.0 ALLERGY STATUS TO PENICILLIN 01/19/2018 JUS ASHER MD, Ot Z88.8 ALLERGY STATUS TO OT DRUG/MEDS/BIOL SUB 01/19/2018 JUS ASHER MD, Ot Z91.5 PERSONAL HISTORY OF SELF-HARM 01/19/2018 JUS ASHER MD, Ot Z95.820 PERIPHERAL VASCULAR ANGIOPLASTY STATUS W 01/27/2018 JUS ASHER MD Ot A41.9 SEPSIS, UNSPECIFIED ORGANISM 01/27/2018 JUS ASHER MD Ot E87.6 HYPOKALEMIA 01/27/2018 JUS ASHER MD Ot G89.18 OTHER ACUTE POSTPROCEDURAL PAIN 01/27/2018 JUS ASHER MD Ot I48.91 UNSPECIFIED ATRIAL FIBRILLATION 01/27/2018 JUS ASHER MD Ot I73.9 PERIPHERAL VASCULAR DISEASE, UNSPECIFIED 01/27/2018 JUS ASHER MD Ot M79.651 PAIN IN RIGHT THIGH 01/27/2018 JUS ASHER MD, Ot M96.89 OTH INTRAOP AND POSTPROC COMP AND DISORD 01/27/2018 JUS ASHER MD, Ot Z79.01 SNF (CURRENT) USE OF ANTICOAGULANT 01/27/2018 JUS ASHER MD Ot Z79.02 SNF (CURRENT) USE OF ANTITHROMBOTI 01/27/2018 JUS ASHER MD, Ot Z86.718 PERSONAL HISTORY OF OTHER VENOUS THROMBO 01/27/2018 JUS ASHER MD, Ot Z87.19 PERSONAL HISTORY OF OTHER DISEASES OF TH 01/27/2018 JUS ASHER MD, Ot Z87.891 PERSONAL HISTORY OF NICOTINE DEPENDENCE 01/27/2018 JUS ASHER MD Ot Z88.0 ALLERGY STATUS TO PENICILLIN 01/27/2018 JUS ASHER MD Ot Z88.8 ALLERGY STATUS TO OTH DRUG/MEDS/BIOL SUB 01/27/2018 JUS ASHER MD Ot Z91.5 PERSONAL HISTORY OF SELF-HARM 01/27/2018 JUS ASHER MD, Ot Z95.820 PERIPHERAL VASCULAR ANGIOPLASTY STATUS W 02/17/2018 OTILIO MARKS DISPATCHER MAINTENANCE SERVICE Ot I70.213 ATHSCL [place] ARTERIES OF EXTRM W INTRMT 03/04/2018 OTILIO MARKS DISPATCHER MAINTENANCE SERVICE Ot I70.213 ATHSCL [place] ARTERIES OF EXTRM W INTRMT 04/08/2018 MARQUISOTILIO CRUZ DISPATCHER MAINTENANCE SERVICE Ot I70.213 ATHSCL [place] ARTERIES OF EXTRM W INTRMT 09/16/2018 GIANCARLO OREILLY MD, Ot Z01.81 8 ENCOUNTER FOR OTHER PREPROCEDURAL EXAMIN 09/21/2018 GIANCARLO OREILLY MD, Ot Z01.81 8 ENCOUNTER FOR OTHER PREPROCEDURAL EXAMIN 09/21/2018 GIANCARLO OREILLY MD, Ot Z01.81 8 ENCOUNTER FOR OTHER PREPROCEDURAL EXAMIN 09/22/2018 LARS AMATO FACC, ALI FACP CCDS Ot E78.5 HYPERLIPIDEMIA, UNSPECIFIED 09/22/2018 LARS AMATO FACC, ALI FACP CCDS Ot 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 09/22/2018 LARS AMATO FACC, ALI FACP CCDS Ot R94.31 ABNORMAL ELECTROCARDIOGRAM [ECG] [EKG] 09/22/2018 LARS AMATO FACC, ALI FACP CCDS Ot 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 09/22/2018 LARS AMATO FACC, ALI FACP CCDS Ot M79.604 PAIN IN RIGHT LEG 09/22/2018 LARS AMATO FACC, ALI FACP CCDS Ot Z72.0 TOBACCO USE 09/22/2018 LARS AMATO FACC, ALI FACP CCDS Ot Z95.828 PRESENCE OF OTHER VASCULAR IMPLANTS AND 10/03/2018 GIANCARLO OREILLY MD, Ot E11.9 TYPE 2 DIABETES MELLITUS WITHOUT COMPLIC 10/03/2018 GIANCARLO OREILLY MD, Ot I25.10 ATHSCL HEART DISEASE OF [place] CORONARY 10/03/2018 GIANCARLO OREILLY MD Ot K21.0 GASTRO-ESOPHAGEAL REFLUX DISEASE WITH ES 10/03/2018 GIANCARLO OREILLY MD, Ot K22.10 ULCER OF ESOPHAGUS WITHOUT BLEEDING 10/03/2018 GIANCARLO OREILLY MD, Ot K22.2 ESOPHAGEAL OBSTRUCTION 10/03/2018 GIANCARLO OREILLY MD, Ot K22.8 OTHER SPECIFIED DISEASES OF ESOPHAGUS 10/03/2018 GIANCARLO OREILLY MD, Ot K29.50 UNSPECIFIED CHRONIC GASTRITIS WITHOUT BL 10/03/2018 GIANCARLO OREILLY MD, Ot K31.9 DISEASE OF STOMACH AND DUODENUM, UNSPECI 10/03/2018 GIANCARLO OREILLY MD, Ot K44.9 DIAPHRAGMATIC HERNIA WITHOUT OBSTRUCTION 10/03/2018 GIANCARLO OREILLY MD, Ot 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 10/03/2018 GIANCARLO OREILLY MD, Ot Z80.0 FAMILY HISTORY OF MALIGNANT NEOPLASM OF 10/03/2018 GIANCARLO OREILLY MD, Ot Z82.3 FAMILY HISTORY OF STROKE 10/03/2018 GIANCARLO OREILLY MD, Ot Z83.3 FAMILY HISTORY OF DIABETES MELLITUS 10/03/2018 GIANCARLO OREILLY MD, Ot Z86.71 8 PERSONAL HISTORY OF OTHER VENOUS THROMBO 10/03/2018 GIANCARLO OREILLY MD, Ot Z87.89 1 PERSONAL HISTORY OF NICOTINE DEPENDENCE 10/03/2018 GIANCARLO OREILLY MD, Ot Z88.0 ALLERGY STATUS TO PENICILLIN 10/03/2018 GIANCARLO OREILLY MD, Ot Z88.1 ALLERGY STATUS TO OTHER ANTIBIOTIC AGENT 10/15/2018 MIRIAM PLUMMER SALES MANAGEMENT TRAINEE Ot M79.89 OTHER SPECIFIED SOFT TISSUE DISORDERS 10/19/2018 SREE RICHTER SALES MANAGEMENT TRAINEE Ot I87.333 CHRONIC VENOUS HTN W ULCER AND INFLAM OF 10/19/2018 SREE RICHTER SALES MANAGEMENT TRAINEE Ot I 96 GANGRENE, NOT ELSEWHERE CLASSIFIED 10/19/2018 SREE RICHTER SALES MANAGEMENT TRAINEE Ot L97.322 NON-PRESSURE CHRONIC ULCER OF LEFT ANKLE 10/19/2018 SREE RICHTER SALES MANAGEMENT TRAINEE Ot L97.512 NON-PRS CHRONIC ULCER OTH PRT RIGHT FOOT 11/10/2018 LARS AMATO FACC, ALI FACP CCDS Ot E78.5 HYPERLIPIDEMIA, UNSPECIFIED 11/10/2018 LARS AMATO FACC, ALI FACP CCDS Ot 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 11/10/2018 LARS AMATO FACC, ALI FACP CCDS Ot R94.31 ABNORMAL ELECTROCARDIOGRAM [ECG] [EKG] 11/13/2018 JANNETH SHRESTHA DO Ot I73.9 PERIPHERAL VASCULAR DISEASE, UNSPECIFIED 11/13/2018 JANNETH SHRESTHA DO Ot K59.09 OTHER CONSTIPATION 11/13/2018 JANNETH SHRESTHA DO Ot L03.116 CELLULITIS OF LEFT LOWER LIMB 11/13/2018 JANNETH SHRESTHA DO Ot S86.312A STRAIN MUSC/TEND PERONEAL GRP AT LOW LEG 11/13/2018 JANNETH SHRESTHA DO Ot Z86.718 PERSONAL HISTORY OF OTHER VENOUS THROMBO 11/13/2018 JANNETH SHRESTHA DO Ot Z87.891 PERSONAL HISTORY OF NICOTINE DEPENDENCE 11/13/2018 JANNETH SHRESTHA DO Ot Z88.0 ALLERGY STATUS TO PENICILLIN 11/13/2018 JANNETH SHRESTHA DO Ot 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) 11/13/2018 JANNETH SHRESTHA DO Ot Z95.828 PRESENCE OF OTHER VASCULAR IMPLANTS AND 02/28/2019 JACKIE GONZALEZ APRN Ot R13.10 DYSPHAGIA, UNSPECIFIED 02/28/2019 AZUCENA AMATO, QUINTEN Narayanan Ot Z12.11 ENCOUNTER FOR SCREENING FOR MALIGNANT NE 04/15/2019 W E11.65 DM w/o complication type II, uncontrolled Sriramndguanako, Janneth S. 04/15/2019 W I10 Essent ial hypertension Gualberto Shresthaqueline S. 04/15/2019 W T85.818A B lood clot due to device, implant, or graft Sriramnder, Janneth S. 04/15/2019 W L73.9 Foll iculitis Henrietta, Janneth S. 04/15/2019 W R00.0 Sinu s tachycardia Angelique Shresthaline S. 04/25/2019 W E11.65 DM w/o complication type II, uncontrolled Sriramnder, Janneth S. 04/25/2019 W I48.0 Paro xysmal atrial fibrillation Henrietta, Janneth S. 04/25/2019 W I82.401 Ri ght leg DVT Sriramnder, Janneth S. 04/25/2019 W L23.9 Alfonso rgic dermatitis Henrietta, Janneth S. 04/25/2019 W M79.661 Ri ght calf pain Sriramnder, Janneth S. 05/02/2019 W E11.65 DM w/o complication type II, uncontrolled Orender, Janneth S. 05/02/2019 W I82.401 Ri ght leg DVT Sriramndguanako, Janneth S. 05/02/2019 W L30.9 Acut e dermatitis OreGualberto goodwinJanneth S. 05/17/2019 W E11.65 DM w/o complication type II, uncontrolled Orender, Janneth S. 05/17/2019 W T85.818A B lood clot due to device, implant, or graft DominikguanakoGualbertoJanneth S. 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 05/24/2019 LARS MD FACC, ALI FACP CCDS Ot R26.89 OTHER ABNORMALITIES OF GAIT AND MOBILITY 05/24/2019 LARS MD FACC, ALI FACP CCDS Ot Z98.890 OTHER SPECIFIED POSTPROCEDURAL STATES 06/02/2019 LARS AMATO FACC, ALI FACP CCDS Ot E11.9 TYPE 2 DIABETES MELLITUS WITHOUT COMPLIC 06/02/2019 LARS FACC, ALI FACP CCDS Ot I48.0 PAROXYSMAL ATRIAL FIBRILLATION 06/02/2019 LARS FACC, ALI FACP CCDS Ot 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 07/05/2019 W I82.401 Ri ght leg DVT SriramnderGualbertoJanneth S. 07/05/2019 W L08.89 Oth er specified local infections of the skin and subcutaneous tissue SriramnderGualbertoJanneth S. 07/05/2019 W E11.65 DM w/o complication type II, uncontrolled Orender, Janneth S. 07/05/2019 W I82.401 Ri ght leg DVT Sriramnder, Janneth S. 07/05/2019 W L08.89 Oth er specified local infections of the skin and subcutaneous tissue Janneth Shrestha. 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 08/02/2019 LARS MD FACC, ALI FACP CCDS Ot R26.89 OTHER ABNORMALITIES OF GAIT AND MOBILITY 08/02/2019 LARS MD FACC, ALI FACP CCDS Ot Z98.890 OTHER SPECIFIED POSTPROCEDURAL STATES 08/04/2019 LARS MD FACC, ALI FACP CCDS Ot E11.9 TYPE 2 DIABETES MELLITUS WITHOUT COMPLIC 08/04/2019 LARS MD FACC, ALI FACP CCDS Ot I48.0 PAROXYSMAL ATRIAL FIBRILLATION 08/04/2019 LARS MD FACC, ALI FACP CCDS Ot 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 Results Test Result Range Complete blood count (CBC) with automate d white blood cell (WBC) differential - 05/15/16 10:57 Blood leukocytes automated count (number/volume) 7.1 10*3/uL 4.3-11.0 Blood erythrocytes automated count (number/volume) 4.81 10*6/uL 4.35-5.85 Venous blood hemoglobin measurement (mass/volume) 15.6 g/dL 13.3-17.7 Blood hematocrit (volume fraction) 43 % 40-54 Automated erythrocyte mean corpuscular volume 90 [ foz_us] 80-99 Automated erythrocyte mean corpuscular h emoglobin (mass per erythrocyte) 32 pg 25-34 Automated erythrocyte mean corpuscular h emoglobin concentration measurement (mass/volume) 36 g/dL 32-36 Automated erythrocyte distribution width ratio 12. 9 % 10.0- 14.5 Automated blood platelet count (count/volume) 172 10*3/uL [...] 10*3 1.0-4.0 Blood monocytes automated count (number/volume) 0. 4 10*3 0.0-1.0 Automated eosinophil count 0.2 10*3/uL 0 .0-0.3 Automated blood basophil count (count/volume) 0.0 10*3/uL 0.0-0.1 Comprehensive metabolic panel - 05/15/16 10:57 Serum or plasma sodium measurement (moles/volume) 140 mmol/L 135-145 Serum or plasma potassium measurement (moles/volume) 4.0 mmol/L 3.6-5.0 Serum or plasma chloride measurement (moles/volume) 107 mmol/L 98-107 Carbon dioxide 27 mmol/L 21-32 Serum or plasma anion gap determination (moles/volume) 6 mmol/L 5-14 Serum or plasma urea nitrogen measurement (mass/volume ) 10 mg/dL 7-18 Serum or plasma creatinine measurement (mass/volume) 0.97 mg/dL 0.60-1.30 Serum or plasma urea nitrogen/creatinine mass ratio 10 NRG Serum or plasma creatinine measurement w ith calculation of estimated glomerular filtration rate > NRG Serum or plasma glucose measurement (mass/volume) 147 mg/dL 70-105 Serum or plasma calcium measurement (mass/volume) 9.3 mg/dL 8.5-10.1 Serum or plasma total bilirubin measurement (mass/volu me) 0.4 mg/dL 0.1-1.0 Serum or plasma alkaline phosphatase karen surement (enzymatic activity/volume) 78 U/L 40-136 Serum or plasma aspartate aminotransfera se measurement (enzymatic activity/volume) 23 U/L 5-34 Serum or plasma alanine aminotransferase measurement (enzymatic activity/volume) 24 U/L 0-55 Serum or plasma protein measurement (mass/volume) 7.5 g/dL 6.4-8.2 Serum or plasma albumin measurement (mass/volume) 4.1 g/dL 3.2-4.5 Magnesium - 05/15/16 10:57 Magnesium 2.2 mg/dL 1.8-2.4 Lipid 1996 panel - 05/15/16 10:57 Serum or plasma triglyceride measurement (mass/volume) 196 mg/dL <150 Serum or plasma cholesterol measurement (mass/volume) 194 mg/dL < 200 Serum or plasma cholesterol in HDL measurement (mass/v olume) 32 mg/dL 40-60 Cholesterol in LDL [mass/volume] in serum or plasma by direct assay 136 mg/dL 1-129 Serum or plasma cholesterol in VLDL measurement (mass/ volume) 39 mg/dL 5-40 THYROID STIMULATING HORMONE - 05/15/16 1 0:57 THYROID STIMULATING HORMONE 0.64 u[iU]/mL 0.35-4.94 Automated blood complete blood count (he mogram) panel - 07/22/16 07:45 Blood leukocytes automated count (number/volume) 7.1 10*3/uL 4.3-11.0 Blood erythrocytes automated count (number/volume) 4.70 10*6/uL 4.35-5.85 Venous blood hemoglobin measurement (mass/volume) 14.9 g/dL 13.3-17.7 Blood hematocrit (volume fraction) 43 % 40-54 Automated erythrocyte mean corpuscular volume 91 [ foz_us] 80-99 Automated erythrocyte mean corpuscular h emoglobin (mass per erythrocyte) 32 pg 25-34 Automated erythrocyte mean corpuscular h emoglobin concentration measurement (mass/volume) 35 g/dL 32-36 Automated erythrocyte distribution width ratio 12. 9 % 10.0- 14.5 Automated blood platelet count (count/volume) 183 10*3/uL 130-400 Automated blood platelet mean volume measurement 10.3 [foz_us] 7.4-10.4 PT panel in platelet poor plasma by coag ulation assay - 07/22/16 07:45 Prothrombin time (PT) in platelet poor plasma by coagu lation assay 12.2 s 12.2-14.7 INR in platelet poor plasma or blood by coagulation as say 0.9 0.8-1.4 Activated partial thromboplastin time (a PTT) in platelet poor plasma bycoagulation assay - 07/22/16 07:45 Activated partial thromboplastin time (a PTT) in platelet poor plasma bycoagulation assay 37 s 24-35 Comprehensive metabolic panel - 07/22/16 07:45 Serum or plasma sodium measurement (moles/volume) 141 mmol/L 135-145 Serum or plasma potassium measurement (moles/volume) 3.3 mmol/L 3.6-5.0 Serum or plasma chloride measurement (moles/volume) 104 mmol/L 98-107 Carbon dioxide 26 mmol/L 21-32 Serum or plasma anion gap determination (moles/volume) 11 mmol/L 5-14 Serum or plasma urea nitrogen measurement (mass/volume ) 12 mg/dL 7-18 Serum or plasma creatinine measurement (mass/volume) 0.95 mg/dL 0.60-1.30 Serum or plasma urea nitrogen/creatinine mass ratio 13 NRG Serum or plasma creatinine measurement w ith calculation of estimated glomerular filtration rate > NRG Serum or plasma glucose measurement (mass/volume) 90 mg/dL 70-105 Serum or plasma calcium measurement (mass/volume) 9.2 mg/dL 8.5-10.1 Serum or plasma total bilirubin measurement (mass/volu me) 0.7 mg/dL 0.1-1.0 Serum or plasma alkaline phosphatase karen surement (enzymatic activity/volume) 70 U/L 40-136 Serum or plasma aspartate aminotransfera se measurement (enzymatic activity/volume) 23 U/L 5-34 Serum or plasma alanine aminotransferase measurement (enzymatic activity/volume) 23 U/L 0-55 Serum or plasma protein measurement (mass/volume) 7.8 g/dL 6.4-8.2 Serum or plasma albumin measurement (mass/volume) 4.2 g/dL 3.2-4.5 Lipid 1996 panel - 07/22/16 07:45 Serum or plasma triglyceride measurement (mass/volume) 224 mg/dL <150 Serum or plasma cholesterol measurement (mass/volume) 160 mg/dL < 200 Serum or plasma cholesterol in HDL measurement (mass/v olume) 33 mg/dL 40-60 Cholesterol in LDL [mass/volume] in serum or plasma by direct assay 94 mg/dL 1-129 Serum or plasma cholesterol in VLDL measurement (mass/ volume) 45 mg/dL 5-40 Methicillin resistant Staphylococcus aur eus (MRSA) screening culture - 07/22/16 07:45 Methicillin resistant Staphylococcus aureus (MRSA) scr eening culture NEG NRG Activated partial thromboplastin time (a PTT) in platelet poor plasma bycoagulation assay - 07/22/16 13:02 Activated partial thromboplastin time (a PTT) in platelet poor plasma bycoagulation assay 50 s 24-35 Automated blood complete blood count (he mogram) panel - 07/23/16 03:39 Blood leukocytes automated count (number/volume) 8.6 10*3/uL 4.3-11.0 Blood erythrocytes automated count (number/volume) 4.46 10*6/uL 4.35-5.85 Venous blood hemoglobin measurement (mass/volume) 14.0 g/dL 13.3-17.7 Blood hematocrit (volume fraction) 40 % 40-54 Automated erythrocyte mean corpuscular volume 90 [ foz_us] 80-99 Automated erythrocyte mean corpuscular h emoglobin (mass per erythrocyte) 31 pg 25-34 Automated erythrocyte mean corpuscular h emoglobin concentration measurement (mass/volume) 35 g/dL 32-36 Automated erythrocyte distribution width ratio 12. 7 % 10.0- 14.5 Automated blood platelet count (count/volume) 163 10*3/uL 130-400 Automated blood platelet mean volume measurement 10.7 [foz_us] 7.4-10.4 Whole blood basic metabolic panel - 09/01 03:39 Serum or plasma sodium measurement (moles/volume) 138 mmol/L 135-145 Serum or plasma potassium measurement (moles/volume) 3.9 mmol/L 3.6-5.0 Serum or plasma chloride measurement (moles/volume) 107 mmol/L 98-107 Carbon dioxide 21 mmol/L 21-32 Serum or plasma anion gap determination (moles/volume) 10 mmol/L 5-14 Serum or plasma urea nitrogen measurement (mass/volume ) 10 mg/dL 7-18 Serum or plasma creatinine measurement (mass/volume) 0.80 mg/dL 0.60-1.30 Serum or plasma urea nitrogen/creatinine mass ratio 13 NRG Serum or plasma creatinine measurement w ith calculation of estimated glomerular filtration rate > NRG Serum or plasma glucose measurement (mass/volume) 108 mg/dL 70-105 Serum or plasma calcium measurement (mass/volume) 8.7 mg/dL 8.5-10.1 Automated blood complete blood count (he mogram) panel - 08/05/16 07:40 Blood leukocytes automated count (number/volume) 6.0 10*3/uL 4.3-11.0 Blood erythrocytes automated count (number/volume) 4.26 10*6/uL 4.35-5.85 Venous blood hemoglobin measurement (mass/volume) 13.5 g/dL 13.3-17.7 Blood hematocrit (volume fraction) 39 % 40-54 Automated erythrocyte mean corpuscular volume 92 [ foz_us] 80-99 Automated erythrocyte mean corpuscular h emoglobin (mass per erythrocyte) 32 pg 25-34 Automated erythrocyte mean corpuscular h emoglobin concentration measurement (mass/volume) 35 g/dL 32-36 Automated erythrocyte distribution width ratio 12. 7 % 10.0- 14.5 Automated blood platelet count (count/volume) 243 10*3/uL [...] 5-14 Serum or plasma urea nitrogen measurement (mass/volume ) 11 mg/dL 7-18 Serum or plasma creatinine measurement (mass/volume) 0.94 mg/dL 0.60-1.30 Serum or plasma urea nitrogen/creatinine mass ratio 12 0-20 Serum or plasma creatinine measurement w ith calculation of estimated glomerular filtration rate > NRG Serum or plasma glucose measurement (mass/volume) 91 mg/dL 70-105 Serum or plasma calcium measurement (mass/volume) 9.3 mg/dL 8.5-10.1 Serum or plasma total bilirubin measurement (mass/volu me) 0.5 mg/dL 0.1-1.0 Serum or plasma alkaline phosphatase karen surement (enzymatic activity/volume) 76 U/L 40-136 Serum or plasma aspartate aminotransfera se measurement (enzymatic activity/volume) 21 U/L 5-34 Serum or plasma alanine aminotransferase measurement (enzymatic activity/volume) 19 U/L 0-55 Serum or plasma protein measurement (mass/volume) 7.5 g/dL 6.4-8.2 Serum or plasma albumin measurement (mass/volume) 4.0 g/dL 3.2-4.5 Lipid 1996 panel - 08/05/16 07:40 Serum or plasma triglyceride measurement (mass/volume) 157 mg/dL <150 Serum or plasma cholesterol measurement (mass/volume) 152 mg/dL < 200 Serum or plasma cholesterol in HDL measurement (mass/v olume) 30 mg/dL 40-60 Cholesterol in LDL [mass/volume] in serum or plasma by direct assay 99 mg/dL 1-129 Serum or plasma cholesterol in VLDL measurement (mass/ volume) 31 mg/dL 5-40 PT panel in platelet poor plasma by coag ulation assay - 08/05/16 07:40 Prothrombin time (PT) in platelet poor plasma by coagu lation assay 12.4 s 12.2-14.7 INR in platelet poor plasma or blood by coagulation as say 1.0 0.8-1.4 Activated partial thromboplastin time (a PTT) in platelet poor plasma bycoagulation assay - 08/05/16 07:40 Activated partial thromboplastin time (a PTT) in platelet poor plasma bycoagulation assay 37 s 24-35 Methicillin resistant Staphylococcus aur eus (MRSA) screening culture - 08/05/16 07:41 Methicillin resistant Staphylococcus aureus (MRSA) scr eening culture NEG NRG Automated blood complete blood count (he mogram) panel - 08/06/16 03:35 Blood leukocytes automated count (number/volume) 5.6 10*3/uL 4.3-11.0 Blood erythrocytes automated count (number/volume) 3.84 10*6/uL 4.35-5.85 Venous blood hemoglobin measurement (mass/volume) 12.0 g/dL 13.3-17.7 Blood hematocrit (volume fraction) 35 % 40-54 Automated erythrocyte mean corpuscular volume 92 [ foz_us] 80-99 Automated erythrocyte mean corpuscular h emoglobin (mass per erythrocyte) 31 pg 25-34 Automated erythrocyte mean corpuscular h emoglobin concentration measurement (mass/volume) 34 g/dL 32-36 Automated erythrocyte distribution width ratio 12. 8 % 10.0- 14.5 Automated blood platelet count (count/volume) 197 10*3/uL 130-400 Automated blood platelet mean volume measurement 10.7 [foz_us] 7.4-10.4 Whole blood basic metabolic panel - 07/18 03/04 03:35 Serum or plasma sodium measurement (moles/volume) 140 mmol/L 135-145 Serum or plasma potassium measurement (moles/volume) 4.0 mmol/L 3.6-5.0 Serum or plasma chloride measurement (moles/volume) 108 mmol/L 98-107 Carbon dioxide 22 mmol/L 21-32 Serum or plasma anion gap determination (moles/volume) 10 mmol/L 5-14 Serum or plasma urea nitrogen measurement (mass/volume ) 8 mg/dL 7-18 Serum or plasma creatinine measurement (mass/volume) 0.78 mg/dL 0.60-1.30 Serum or plasma urea nitrogen/creatinine mass ratio 10 0-20 Serum or plasma creatinine measurement w ith calculation of estimated glomerular filtration rate > NRG Serum or plasma glucose measurement (mass/volume) 102 mg/dL 70-105 Serum or plasma calcium measurement (mass/volume) 8.6 mg/dL 8.5-10.1 Capillary blood glucose measurement by g lucometer (mass/volume) - 01/29/17 07:39 Capillary blood glucose measurement by glucometer (mas s/volume) 100 mg/dL 70-110 Complete blood count (CBC) with automate d white blood cell (WBC) differential - 01/29/17 07:49 Blood leukocytes automated count (number/volume) 9.6 10*3/uL 4.3-11.0 Blood erythrocytes automated count (number/volume) 4.74 10*6/uL 4.35-5.85 Venous blood hemoglobin measurement (mass/volume) 14.8 g/dL 13.3-17.7 Blood hematocrit (volume fraction) 42 % 40-54 Automated erythrocyte mean corpuscular volume 89 [ foz_us] 80-99 Automated erythrocyte mean corpuscular h emoglobin (mass per erythrocyte) 31 pg 25-34 Automated erythrocyte mean corpuscular h emoglobin concentration measurement (mass/volume) 35 g/dL 32-36 Automated erythrocyte distribution width ratio 12. 8 % 10.0- 14.5 Automated blood platelet count (count/volume) 205 10*3/uL [...] 10*3 1.0-4.0 Blood monocytes automated count (number/volume) 0. 6 10*3 0.0-1.0 Automated eosinophil count 0.4 10*3/uL 0 .0-0.3 Automated blood basophil count (count/volume) 0.0 10*3/uL 0.0-0.1 Comprehensive metabolic panel - 01/29/17 07:49 Serum or plasma sodium measurement (moles/volume) 138 mmol/L 135-145 Serum or plasma potassium measurement (moles/volume) 4.2 mmol/L 3.6-5.0 Serum or plasma chloride measurement (moles/volume) 103 mmol/L 98-107 Carbon dioxide 24 mmol/L 21-32 Serum or plasma anion gap determination (moles/volume) 11 mmol/L 5-14 Serum or plasma urea nitrogen measurement (mass/volume ) 13 mg/dL 7-18 Serum or plasma creatinine measurement (mass/volume) 0.85 mg/dL 0.60-1.30 Serum or plasma urea nitrogen/creatinine mass ratio 15 NRG Serum or plasma creatinine measurement w ith calculation of estimated glomerular filtration rate > NRG Serum or plasma glucose measurement (mass/volume) 92 mg/dL 70-105 Serum or plasma calcium measurement (mass/volume) 8.9 mg/dL 8.5-10.1 Serum or plasma total bilirubin measurement (mass/volu me) 0.5 mg/dL 0.1-1.0 Serum or plasma alkaline phosphatase karen surement (enzymatic activity/volume) 73 U/L 40-136 Serum or plasma aspartate aminotransfera se measurement (enzymatic activity/volume) 30 U/L 5-34 Serum or plasma alanine aminotransferase measurement (enzymatic activity/volume) 34 U/L 0-55 Serum or plasma protein measurement (mass/volume) 7.6 g/dL 6.4-8.2 Serum or plasma albumin measurement (mass/volume) 4.1 g/dL 3.2-4.5 Serum or plasma thyrotropin measurement by detection limit <=0.05 miu/l (units/volume) - 01/29/17 07:49 Serum or plasma thyrotropin measurement by detection limit <=0.05 miu/l (units/volume) 1.31 u[iU]/mL 0.35-4.94 Serum or plasma salicylates measurement (mass/volume) - 01/29/17 07:49 Serum or plasma salicylates measurement (mass/volume) < mg/dL 5.0-20.0 Serum or plasma acetaminophen measuremen t (mass/volume) - 01/29/17 07:49 Serum or plasma acetaminophen measurement (mass/volume ) < ug/mL 10-30 Serum or plasma ethanol measurement (mas s/volume) - 01/29/17 07:49 Serum or plasma ethanol measurement (mass/volume) < mg/dL <10 Complete urinalysis with reflex to cultu re - 01/29/17 16:00 Urine color determination YELLOW NRG Urine clarity determination CLEAR NR G Urine pH measurement by test strip 7 5-9 Specific gravity of urine by test strip 1.010 1.016-1.022 Urine protein assay by test strip, semi-quantitative NEGATIVE NEGATIVE Urine glucose detection by automated test strip NE GATIVE NEGATIVE Erythrocytes detection in urine sediment by light micr oscopy NEGATIVE NEGATIVE Urine ketones detection by automated test strip NE GATIVE NEGATIVE Urine nitrite detection by test strip NEGATIVE NEGATIVE Urine total bilirubin detection by test strip NEGA TIVE NEGATIVE Urine urobilinogen measurement by automated test strip (mass/volume) NORMAL NORMAL Urine leukocyte esterase detection by dipstick NEG ATIVE NEGATIVE Automated urine sediment erythrocyte cou nt by microscopy (number/high power field) NONE NRG Automated urine sediment leukocyte count by microscopy (number/high power field) NONE NRG Bacteria detection in urine sediment by light microsco py NONE NRG Squamous epithelial cells detection in u rine sediment by light microscopy RARE NRG Crystals detection in urine sediment by light microsco py NONE NRG Casts detection in urine sediment by light microscopy NONE NRG Mucus detection in urine sediment by light microscopy NEGATIVE NRG Complete urinalysis with reflex to culture NO NRG Urine drug screening test - 01/29/17 16: 00 Urine phencyclidine detection by screening method NEGATIVE NEGATIVE Urine benzodiazepines detection by screening method NEGATIVE NEGATIVE Urine cocaine detection NEGATIVE NEGATI VE Urine amphetamines detection by screening method N EGATIVE NEGATIVE Urine methamphetamine detection by screening method NEGATIVE NEGATIVE Urine cannabinoids detection by screening method N EGATIVE NEGATIVE Urine opiates detection by screening method NEGATI VE NEGATIVE Urine barbiturates detection NEGATIVE N EGATIVE Screening urine tricyclic antidepressants detection NEGATIVE NEGATIVE Urine methadone detection by screening method NEGA TIVE NEGATIVE Urine oxycodone detection NEGATIVE NEGA TIVE Urine propoxyphene detection NEGATIVE N EGATIVE Comprehensive metabolic panel - 01/30/17 05:42 Serum or plasma sodium measurement (moles/volume) 140 mmol/L 135-145 Serum or plasma potassium measurement (moles/volume) 4.1 mmol/L 3.6-5.0 Serum or plasma chloride measurement (moles/volume) 105 mmol/L 98-107 Carbon dioxide 26 mmol/L 21-32 Serum or plasma anion gap determination (moles/volume) 9 mmol/L 5-14 Serum or plasma urea nitrogen measurement (mass/volume ) 14 mg/dL 7-18 Serum or plasma creatinine measurement (mass/volume) 0.89 mg/dL 0.60-1.30 Serum or plasma urea nitrogen/creatinine mass ratio 16 NRG Serum or plasma creatinine measurement w ith calculation of estimated glomerular filtration rate > NRG Serum or plasma glucose measurement (mass/volume) 101 mg/dL 70-105 Serum or plasma calcium measurement (mass/volume) 9.0 mg/dL 8.5-10.1 Serum or plasma total bilirubin measurement (mass/volu me) 0.7 mg/dL 0.1-1.0 Serum or plasma alkaline phosphatase karen surement (enzymatic activity/volume) 73 U/L 40-136 Serum or plasma aspartate aminotransfera se measurement (enzymatic activity/volume) 27 U/L 5-34 Serum or plasma alanine aminotransferase measurement (enzymatic activity/volume) 34 U/L 0-55 Serum or plasma protein measurement (mass/volume) 7.0 g/dL 6.4-8.2 Serum or plasma albumin measurement (mass/volume) 3.8 g/dL 3.2-4.5 Automated blood complete blood count (he mogram) panel - 04/14/17 07:05 Blood leukocytes automated count (number/volume) 6.4 10*3/uL 4.3-11.0 Blood erythrocytes automated count (number/volume) 4.36 10*6/uL 4.35-5.85 Venous blood hemoglobin measurement (mass/volume) 13.9 g/dL 13.3-17.7 Blood hematocrit (volume fraction) 39 % 40-54 Automated erythrocyte mean corpuscular volume 90 [ foz_us] 80-99 Automated erythrocyte mean corpuscular h emoglobin (mass per erythrocyte) 32 pg 25-34 Automated erythrocyte mean corpuscular h emoglobin concentration measurement (mass/volume) 36 g/dL 32-36 Automated erythrocyte distribution width ratio 12. 8 % 10.0- 14.5 Automated blood platelet count (count/volume) 174 10*3/uL 130-400 Automated blood platelet mean volume measurement 10.3 [foz_us] 7.4-10.4 PT panel in platelet poor plasma by coag ulation assay - 04/14/17 07:05 Prothrombin time (PT) in platelet poor plasma by coagu lation assay 12.1 s 12.2-14.7 INR in platelet poor plasma or blood by coagulation as say 0.9 0.8-1.4 Activated partial thromboplastin time (a PTT) in platelet poor plasma bycoagulation assay - 04/14/17 07:05 Activated partial thromboplastin time (a PTT) in platelet poor plasma bycoagulation assay 38 s 24-35 Comprehensive metabolic panel - 04/14/17 07:05 Serum or plasma sodium measurement (moles/volume) 140 mmol/L 135-145 Serum or plasma potassium measurement (moles/volume) 4.0 mmol/L 3.6-5.0 Serum or plasma chloride measurement (moles/volume) 108 mmol/L 98-107 Carbon dioxide 25 mmol/L 21-32 Serum or plasma anion gap determination (moles/volume) 7 mmol/L 5-14 Serum or plasma urea nitrogen measurement (mass/volume ) 17 mg/dL 7-18 Serum or plasma creatinine measurement (mass/volume) 0.89 mg/dL 0.60-1.30 Serum or plasma urea nitrogen/creatinine mass ratio 19 NRG Serum or plasma creatinine measurement w ith calculation of estimated glomerular filtration rate > NRG Serum or plasma glucose measurement (mass/volume) 99 mg/dL 70-105 Serum or plasma calcium measurement (mass/volume) 9.2 mg/dL 8.5-10.1 Serum or plasma total bilirubin measurement (mass/volu me) 0.5 mg/dL 0.1-1.0 Serum or plasma alkaline phosphatase karen surement (enzymatic activity/volume) 67 U/L 40-136 Serum or plasma aspartate aminotransfera se measurement (enzymatic activity/volume) 24 U/L 5-34 Serum or plasma alanine aminotransferase measurement (enzymatic activity/volume) 31 U/L 0-55 Serum or plasma protein measurement (mass/volume) 7.3 g/dL 6.4-8.2 Serum or plasma albumin measurement (mass/volume) 4.1 g/dL 3.2-4.5 Lipid 1996 panel - 04/14/17 07:05 Serum or plasma triglyceride measurement (mass/volume) 224 mg/dL <150 Serum or plasma cholesterol measurement (mass/volume) 181 mg/dL < 200 Serum or plasma cholesterol in HDL measurement (mass/v olume) 31 mg/dL 40-60 Cholesterol in LDL [mass/volume] in serum or plasma by direct assay 117 mg/dL 1-129 Serum or plasma cholesterol in VLDL measurement (mass/ volume) 45 mg/dL 5-40 Methicillin resistant Staphylococcus aur eus (MRSA) screening culture - 04/14/17 07:05 Methicillin resistant Staphylococcus aureus (MRSA) scr eening culture NEG NRG Automated blood complete blood count (he mogram) panel - 04/15/17 05:28 Blood leukocytes automated count (number/volume) 5.9 10*3/uL 4.3-11.0 Blood erythrocytes automated count (number/volume) 4.06 10*6/uL 4.35-5.85 Venous blood hemoglobin measurement (mass/volume) 12.9 g/dL 13.3-17.7 Blood hematocrit (volume fraction) 37 % 40-54 Automated erythrocyte mean corpuscular volume 90 [ foz_us] 80-99 Automated erythrocyte mean corpuscular h emoglobin (mass per erythrocyte) 32 pg 25-34 Automated erythrocyte mean corpuscular h emoglobin concentration measurement (mass/volume) 35 g/dL 32-36 Automated erythrocyte distribution width ratio 12. 7 % 10.0- 14.5 Automated blood platelet count (count/volume) 142 10*3/uL 130-400 Automated blood platelet mean volume measurement 11.0 [foz_us] 7.4-10.4 Whole blood basic metabolic panel - 03/20 10/03 05:28 Serum or plasma sodium measurement (moles/volume) 139 mmol/L 135-145 Serum or plasma potassium measurement (moles/volume) 4.0 mmol/L 3.6-5.0 Serum or plasma chloride measurement (moles/volume) 107 mmol/L 98-107 Carbon dioxide 22 mmol/L 21-32 Serum or plasma anion gap determination (moles/volume) 10 mmol/L 5-14 Serum or plasma urea nitrogen measurement (mass/volume ) 12 mg/dL 7-18 Serum or plasma creatinine measurement (mass/volume) 0.81 mg/dL 0.60-1.30 Serum or plasma urea nitrogen/creatinine mass ratio 15 NRG Serum or plasma creatinine measurement w ith calculation of estimated glomerular filtration rate > NRG Serum or plasma glucose measurement (mass/volume) 112 mg/dL 70-105 Serum or plasma calcium measurement (mass/volume) 8.7 mg/dL 8.5-10.1 Automated blood complete blood count (he mogram) panel - 12/15/17 08:51 Blood leukocytes automated count (number/volume) 5.9 10*3/uL 4.3-11.0 Blood erythrocytes automated count (number/volume) 4.65 10*6/uL 4.35-5.85 Venous blood hemoglobin measurement (mass/volume) 14.5 g/dL 13.3-17.7 Blood hematocrit (volume fraction) 41 % 40-54 Automated erythrocyte mean corpuscular volume 87 [ foz_us] 80-99 Automated erythrocyte mean corpuscular h emoglobin (mass per erythrocyte) 31 pg 25-34 Automated erythrocyte mean corpuscular h emoglobin concentration measurement (mass/volume) 36 g/dL 32-36 Automated erythrocyte distribution width ratio 13. 3 % 10.0- 14.5 Automated blood platelet count (count/volume) 219 10*3/uL [...] 5-14 Serum or plasma urea nitrogen measurement (mass/volume ) 11 mg/dL 7-18 Serum or plasma creatinine measurement (mass/volume) 1.05 mg/dL 0.60-1.30 Serum or plasma urea nitrogen/creatinine mass ratio 10 NRG Serum or plasma creatinine measurement w ith calculation of estimated glomerular filtration rate > NRG Serum or plasma glucose measurement (mass/volume) 109 mg/dL 70-105 Serum or plasma calcium measurement (mass/volume) 9.5 mg/dL 8.5-10.1 Serum or plasma total bilirubin measurement (mass/volu me) 0.5 mg/dL 0.1-1.0 Serum or plasma alkaline phosphatase karen surement (enzymatic activity/volume) 68 U/L 40-136 Serum or plasma aspartate aminotransfera se measurement (enzymatic activity/volume) 33 U/L 5-34 Serum or plasma alanine aminotransferase measurement (enzymatic activity/volume) 37 U/L 0-55 Serum or plasma protein measurement (mass/volume) 8.0 g/dL 6.4-8.2 Serum or plasma albumin measurement (mass/volume) 4.4 g/dL 3.2-4.5 CALCIUM CORRECTED 9.2 mg/dL 8.5-10.1 Lipid 1996 panel - 12/15/17 08:51 Serum or plasma triglyceride measurement (mass/volume) 228 mg/dL <150 Serum or plasma cholesterol measurement (mass/volume) 211 mg/dL < 200 Serum or plasma cholesterol in HDL measurement (mass/v olume) 38 mg/dL 40-60 Cholesterol in LDL [mass/volume] in serum or plasma by direct assay 142 mg/dL 1-129 Serum or plasma cholesterol in VLDL measurement (mass/ volume) 46 mg/dL 5-40 PT panel in platelet poor plasma by coag ulation assay - 12/15/17 08:51 Prothrombin time (PT) in platelet poor plasma by coagu lation assay 12.2 s 12.2-14.7 INR in platelet poor plasma or blood by coagulation as say 0.9 0.8-1.4 Activated partial thromboplastin time (a PTT) in platelet poor plasma bycoagulation assay - 12/15/17 08:51 Activated partial thromboplastin time (a PTT) in platelet poor plasma bycoagulation assay 32 s 24-35 Methicillin resistant Staphylococcus aur eus (MRSA) screening culture - 12/15/17 08:51 Methicillin resistant Staphylococcus aureus (MRSA) scr eening culture NEG NRG Activated partial thromboplastin time (a PTT) in platelet poor plasma bycoagulation assay - 12/15/17 15:32 Activated partial thromboplastin time (a PTT) in platelet poor plasma bycoagulation assay 99 s 24-35 Activated partial thromboplastin time (a PTT) in platelet poor plasma bycoagulation assay - 12/15/17 17:08 Activated partial thromboplastin time (a PTT) in platelet poor plasma bycoagulation assay 49 s 24-35 Complete blood count (CBC) with automate d white blood cell (WBC) differential - 01/19/18 14:27 Blood leukocytes automated count (number/volume) 11.8 10*3/uL 4.3-11.0 Blood erythrocytes automated count (number/volume) 4.21 10*6/uL 4.35-5.85 Venous blood hemoglobin measurement (mass/volume) 12.5 g/dL 13.3-17.7 Blood hematocrit (volume fraction) 37 % 40-54 Automated erythrocyte mean corpuscular volume 88 [ foz_us] 80-99 Automated erythrocyte mean corpuscular h emoglobin (mass per erythrocyte) 30 pg 25-34 Automated erythrocyte mean corpuscular h emoglobin concentration measurement (mass/volume) 34 g/dL 32-36 Automated erythrocyte distribution width ratio 13. 2 % 10.0- 14.5 Automated blood platelet count (count/volume) 405 10*3/uL 130-400 Automated blood platelet mean volume measurement 10.1 [foz_us] 7.4-10.4 Automated blood neutrophils/100 leukocytes 77 % 42-75 Automated blood lymphocytes/100 leukocytes 15 % 12-44 Blood monocytes/100 leukocytes 7 % 0-12 Automated blood eosinophils/100 leukocytes 2 % 0-10 Automated blood basophils/100 leukocytes 0 % 0-10 Blood neutrophils automated count (number/volume) 9.0 10*3 1.8-7.8 Blood lymphocytes automated count (number/volume) 1.8 10*3 1.0-4.0 Blood monocytes automated count (number/volume) 0. 8 10*3 0.0-1.0 Automated eosinophil count 0.2 10*3/uL 0 .0-0.3 Automated blood basophil count (count/volume) 0.0 10*3/uL 0.0-0.1 PT panel in platelet poor plasma by coag ulation assay - 01/19/18 14:27 Prothrombin time (PT) in platelet poor plasma by coagu lation assay 13.2 s 12.2-14.7 INR in platelet poor plasma or blood by coagulation as say 1.0 0.8-1.4 Activated partial thromboplastin time (a PTT) in platelet poor plasma bycoagulation assay - 01/19/18 14:27 Activated partial thromboplastin time (a PTT) in platelet poor plasma bycoagulation assay 39 s 24-35 Blood lactic acid measurement (moles/vol ume) - 01/19/18 14:27 Blood lactic acid measurement (moles/volume) 2.07 mmol/L 0.50-2.00 Comprehensive metabolic panel - 01/19/18 14:27 Serum or plasma sodium measurement (moles/volume) 135 mmol/L 135-145 Serum or plasma potassium measurement (moles/volume) 3.2 mmol/L 3.6-5.0 Serum or plasma chloride measurement (moles/volume) 100 mmol/L 98-107 Carbon dioxide 22 mmol/L 21-32 Serum or plasma anion gap determination (moles/volume) 13 mmol/L 5-14 Serum or plasma urea nitrogen measurement (mass/volume ) 11 mg/dL 7-18 Serum or plasma creatinine measurement (mass/volume) 0.87 mg/dL 0.60-1.30 Serum or plasma urea nitrogen/creatinine mass ratio 13 NRG Serum or plasma creatinine measurement w ith calculation of estimated glomerular filtration rate > NRG Serum or plasma glucose measurement (mass/volume) 171 mg/dL 70-105 Serum or plasma calcium measurement (mass/volume) 9.4 mg/dL 8.5-10.1 Serum or plasma total bilirubin measurement (mass/volu me) 0.7 mg/dL 0.1-1.0 Serum or plasma alkaline phosphatase karen surement (enzymatic activity/volume) 143 U/L 40-136 Serum or plasma aspartate aminotransfera se measurement (enzymatic activity/volume) 45 U/L 5-34 Serum or plasma alanine aminotransferase measurement (enzymatic activity/volume) 77 U/L 0-55 Serum or plasma protein measurement (mass/volume) 7.9 g/dL 6.4-8.2 Serum or plasma albumin measurement (mass/volume) 3.5 g/dL 3.2-4.5 CALCIUM CORRECTED 9.8 mg/dL 8.5-10.1 Erythrocyte sedimentation rate by mikhail gren method - 01/19/18 14:27 Erythrocyte sedimentation rate by westergren method 87 mm 0- 30 Serum or plasma C reactive protein measu rement (mass/volume) - 01/19/18 14:27 Serum or plasma C reactive protein measurement (mass/v olume) 22.20 mg/dL 0.00-0.50 Bacterial blood culture - 01/19/18 14:27 Bacterial blood culture NG NRG Bacterial blood culture - 01/19/18 15:26 Bacterial blood culture NG NRG Complete urinalysis with reflex to cultu re - 01/19/18 17:45 Urine color determination YELLOW NRG Urine clarity determination CLEAR NR G Urine pH measurement by test strip 6 5-9 Specific gravity of urine by test strip 1.020 1.016-1.022 Urine protein assay by test strip, semi-quantitative 2+ NEGATIVE Urine glucose detection by automated test strip NE GATIVE NEGATIVE Erythrocytes detection in urine sediment by light micr oscopy 2+ NEGATIVE Urine ketones detection by automated test strip NE GATIVE NEGATIVE Urine nitrite detection by test strip NEGATIVE NEGATIVE Urine total bilirubin detection by test strip NEGA TIVE NEGATIVE Urine urobilinogen measurement by automated test strip (mass/volume) 4 mg/dL NORMAL Urine leukocyte esterase detection by dipstick 1+ NEGATIVE Automated urine sediment erythrocyte cou nt by microscopy (number/high power field) RARE NRG Automated urine sediment leukocyte count by microscopy (number/high power field) NONE NRG Bacteria detection in urine sediment by light microsco py TRACE NRG Squamous epithelial cells detection in u rine sediment by light microscopy RARE NRG Crystals detection in urine sediment by light microsco py NONE NRG Casts detection in urine sediment by light microscopy NONE NRG Mucus detection in urine sediment by light microscopy NEGATIVE NRG Complete urinalysis with reflex to culture NO NRG Bacterial urine culture - 01/19/18 17:45 Bacterial urine culture NG NRG Serum or plasma lactate measurement (mol es/volume) - 01/19/18 17:57 Serum or plasma lactate measurement (moles/volume) 1.55 mmol/L 0.50-2.00 Bacteria identification in isolate by an aerobe culture - 10/14/18 09:18 Bacteria identification in isolate by anaerobe culture NOANA NRG Gram stain microscopy - 10/14/18 09:18 Gram stain microscopy No bacteria seen NRG Bacteria identification in wound by cult ure - 10/14/18 09:18 Bacteria identification in wound by culture SEE CO MMEN NRG FREE TEXT EXTERNAL SUSCEPTIBILITY REPORTED [id number] NRG QUANTITY OF GROWTH . NRG MRSA AGAR METHICILLIN RESISTANT STAPH AUREUS NRG FREE TEXT ENTRY 2 ID REPORTED 10/15/18 13:05 NRG PBP2 RESISTANT ORGANISM/CONTACT PRECAUTIONS NRG Dirithromycin susceptibility test by dis k diffusion - 10/14/18 09:18 Gentamicin susceptibility test by minimum inhibitory c oncentration <= NRG Levofloxacin susceptibility test by minimum inhibitory concentration 2 NRG Tobramycin susceptibility test by minimum inhibitory c oncentration <= NRG Piperacillin/tazobactam susceptibility t est by minimum inhibitory concentration S NRG Ciprofloxacin susceptibility test by minimum inhibitor y concentration <= NRG Meropenem susceptibility test by minimum inhibitory co ncentration 2 NRG Aztreonam susceptibility test by minimum inhibitory co ncentration 8 NRG Cefepime susceptibility test by minimum inhibitory con centration 2 NRG Imipenem susceptibility test by minimum inhibitory con centration 2 NRG Ceftazidime susceptibility test by minimum inhibitory concentration S NRG Dirithromycin susceptibility test by dis k diffusion - 10/14/18 09:18 Oxacillin susceptibility test by minimum inhibitory co ncentration > NRG Clindamycin susceptibility test by minimum inhibitory concentration <= NRG Erythromycin susceptibility test by minimum inhibitory concentration > NRG Trimethoprim/sulfamethoxazole susceptibi lity test by minimum inhibitoryconcentration <= NRG Vancomycin susceptibility test by minimum inhibitory c oncentration 1 NRG Levofloxacin susceptibility test by minimum inhibitory concentration <= NRG Rifampin susceptibility test by minimum inhibitory con centration <= NRG Cefazolin susceptibility test by minimum inhibitory co ncentration > NRG Linezolid susceptibility test by minimum inhibitory co ncentration <= NRG Penicillin G susceptibility test by minimum inhibitory concentration > NRG Moxifloxacin susceptibility test by minimum inhibitory concentration <= NRG Minocycline susc CÉSAR <= NRG Complete blood count (CBC) with automate d white blood cell (WBC) differential - 11/10/18 11:27 Blood leukocytes automated count (number/volume) 5.0 10*3/uL 4.3-11.0 Blood erythrocytes automated count (number/volume) 4.69 10*6/uL 4.35-5.85 Venous blood hemoglobin measurement (mass/volume) 14.1 g/dL 13.3-17.7 Blood hematocrit (volume fraction) 41 % 40-54 Automated erythrocyte mean corpuscular volume 87 [ foz_us] 80-99 Automated erythrocyte mean corpuscular h emoglobin (mass per erythrocyte) 30 pg 25-34 Automated erythrocyte mean corpuscular h emoglobin concentration measurement (mass/volume) 34 g/dL 32-36 Automated erythrocyte distribution width ratio 13. 1 % 10.0- 14.5 Automated blood platelet count (count/volume) 169 10*3/uL 130-400 Automated blood platelet mean volume measurement 11.2 [foz_us] 7.4-10.4 Automated blood neutrophils/100 leukocytes 54 % 42-75 Automated blood lymphocytes/100 leukocytes 29 % 12-44 Blood monocytes/100 leukocytes 9 % 0-12 Automated blood eosinophils/100 leukocytes 8 % 0-10 Automated blood basophils/100 leukocytes 1 % 0-10 Blood neutrophils automated count (number/volume) 2.7 10*3 1.8-7.8 Blood lymphocytes automated count (number/volume) 1.4 10*3 1.0-4.0 Blood monocytes automated count (number/volume) 0. 5 10*3 0.0-1.0 Automated eosinophil count 0.4 10*3/uL 0 .0-0.3 Automated blood basophil count (count/volume) 0.0 10*3/uL 0.0-0.1 Comprehensive metabolic panel - 11/10/18 11:27 Serum or plasma sodium measurement (moles/volume) 140 mmol/L 135-145 Serum or plasma potassium measurement (moles/volume) 3.8 mmol/L 3.6-5.0 Serum or plasma chloride measurement (moles/volume) 108 mmol/L 98-107 Carbon dioxide 23 mmol/L 21-32 Serum or plasma anion gap determination (moles/volume) 9 mmol/L 5-14 Serum or plasma urea nitrogen measurement (mass/volume ) 10 mg/dL 7-18 Serum or plasma creatinine measurement (mass/volume) 0.89 mg/dL 0.60-1.30 Serum or plasma urea nitrogen/creatinine mass ratio 11 NRG Serum or plasma creatinine measurement w ith calculation of estimated glomerular filtration rate > NRG Serum or plasma glucose measurement (mass/volume) 107 mg/dL 70-105 Serum or plasma calcium measurement (mass/volume) 9.2 mg/dL 8.5-10.1 Serum or plasma total bilirubin measurement (mass/volu me) 0.4 mg/dL 0.1-1.0 Serum or plasma alkaline phosphatase karen surement (enzymatic activity/volume) 69 U/L 40-136 Serum or plasma aspartate aminotransfera se measurement (enzymatic activity/volume) 28 U/L 5-34 Serum or plasma alanine aminotransferase measurement (enzymatic activity/volume) 37 U/L 0-55 Serum or plasma protein measurement (mass/volume) 7.6 g/dL 6.4-8.2 Serum or plasma albumin measurement (mass/volume) 4.4 g/dL 3.2-4.5 CALCIUM CORRECTED 8.9 mg/dL 8.5-10.1 Serum or plasma C reactive protein measu rement (mass/volume) - 11/10/18 11:27 Serum or plasma C reactive protein measurement (mass/v olume) 0.53 mg/dL 0.00-0.50 Blood lactic acid measurement (moles/vol ume) - 11/10/18 11:27 Blood lactic acid measurement (moles/volume) 2.09 mmol/L 0.50-2.00 Bacterial blood culture - 11/10/18 11:27 Bacterial blood culture NG NRG Bacterial blood culture - 11/10/18 12:12 Bacterial blood culture NG NRG Serum or plasma lactate measurement (mol es/volume) - 11/10/18 13:43 Serum or plasma lactate measurement (moles/volume) 1.39 mmol/L 0.50-2.00 Complete blood count (CBC) with automate d white blood cell (WBC) differential - 11/11/18 04:45 Blood leukocytes automated count (number/volume) 6.9 10*3/uL 4.3-11.0 Blood erythrocytes automated count (number/volume) 4.55 10*6/uL 4.35-5.85 Venous blood hemoglobin measurement (mass/volume) 13.5 g/dL 13.3-17.7 Blood hematocrit (volume fraction) 39 % 40-54 Automated erythrocyte mean corpuscular volume 86 [ foz_us] 80-99 Automated erythrocyte mean corpuscular h emoglobin (mass per erythrocyte) 30 pg 25-34 Automated erythrocyte mean corpuscular h emoglobin concentration measurement (mass/volume) 34 g/dL 32-36 Automated erythrocyte distribution width ratio 13. 1 % 10.0- 14.5 Automated blood platelet count (count/volume) 156 10*3/uL 130-400 Automated blood platelet mean volume measurement 10.6 [foz_us] 7.4-10.4 Automated blood neutrophils/100 leukocytes 91 % 42-75 Automated blood lymphocytes/100 leukocytes 8 % 12-44 Blood monocytes/100 leukocytes 1 % 0-12 Automated blood eosinophils/100 leukocytes 0 % 0-10 Automated blood basophils/100 leukocytes 0 % 0-10 Blood neutrophils automated count (number/volume) 6.3 10*3 1.8-7.8 Blood lymphocytes automated count (number/volume) 0.6 10*3 1.0-4.0 Blood monocytes automated count (number/volume) 0. 1 10*3 0.0-1.0 Automated eosinophil count 0.0 10*3/uL 0 .0-0.3 Automated blood basophil count (count/volume) 0.0 10*3/uL 0.0-0.1 Manual absolute plasma cell count - 10/18 08/04 04:45 Blood monocytes/100 leukocytes 1 % NR Manual blood segmented neutrophils/100 leukocytes 92 % NRG Blood band neutrophils/100 leukocytes 1 % NRG Manual blood lymphocytes/100 leukocytes 4 % NRG Manual eosinophils/100 leukocytes in nose 0 % NRG Manual blood basophils/100 leukocytes 0 % NRG Blood lymphocytes variant/100 leukocytes 2 % NRG Blood erythrocyte morphology finding identification [facility] Comprehensive metabolic panel - 11/11/18 04:45 Serum or plasma sodium measurement (moles/volume) 137 mmol/L 135-145 Serum or plasma potassium measurement (moles/volume) 4.3 mmol/L 3.6-5.0 Serum or plasma chloride measurement (moles/volume) 107 mmol/L 98-107 Carbon dioxide 21 mmol/L 21-32 Serum or plasma anion gap determination (moles/volume) 9 mmol/L 5-14 Serum or plasma urea nitrogen measurement (mass/volume ) 13 mg/dL 7-18 Serum or plasma creatinine measurement (mass/volume) 1.13 mg/dL 0.60-1.30 Serum or plasma urea nitrogen/creatinine mass ratio 12 NRG Serum or plasma creatinine measurement w ith calculation of estimated glomerular filtration rate > NRG Serum or plasma glucose measurement (mass/volume) 222 mg/dL 70-105 Serum or plasma calcium measurement (mass/volume) 9.1 mg/dL 8.5-10.1 Serum or plasma total bilirubin measurement (mass/volu me) 0.4 mg/dL 0.1-1.0 Serum or plasma alkaline phosphatase karen surement (enzymatic activity/volume) 75 U/L 40-136 Serum or plasma aspartate aminotransfera se measurement (enzymatic activity/volume) 29 U/L 5-34 Serum or plasma alanine aminotransferase measurement (enzymatic activity/volume) 38 U/L 0-55 Serum or plasma protein measurement (mass/volume) 7.1 g/dL 6.4-8.2 Serum or plasma albumin measurement (mass/volume) 4.1 g/dL 3.2-4.5 CALCIUM CORRECTED 9.0 mg/dL 8.5-10.1 Complete blood count (CBC) with automate d white blood cell (WBC) differential - 11/12/18 05:40 Blood leukocytes automated count (number/volume) 11.2 10*3/uL 4.3-11.0 Blood erythrocytes automated count (number/volume) 4.41 10*6/uL 4.35-5.85 Venous blood hemoglobin measurement (mass/volume) 13.3 g/dL 13.3-17.7 Blood hematocrit (volume fraction) 39 % 40-54 Automated erythrocyte mean corpuscular volume 88 [ foz_us] 80-99 Automated erythrocyte mean corpuscular h emoglobin (mass per erythrocyte) 30 pg 25-34 Automated erythrocyte mean corpuscular h emoglobin concentration measurement (mass/volume) 34 g/dL 32-36 Automated erythrocyte distribution width ratio 13. 3 % 10.0- 14.5 Automated blood platelet count (count/volume) 163 10*3/uL 130-400 Automated blood platelet mean volume measurement 11.5 [foz_us] 7.4-10.4 Automated blood neutrophils/100 leukocytes 70 % 42-75 Automated blood lymphocytes/100 leukocytes 23 % 12-44 Blood monocytes/100 leukocytes 6 % 0-12 Automated blood eosinophils/100 leukocytes 1 % 0-10 Automated blood basophils/100 leukocytes 0 % 0-10 Blood neutrophils automated count (number/volume) 7.9 10*3 1.8-7.8 Blood lymphocytes automated count (number/volume) 2.6 10*3 1.0-4.0 Blood monocytes automated count (number/volume) 0. 7 10*3 0.0-1.0 Automated eosinophil count 0.1 10*3/uL 0 .0-0.3 Automated blood basophil count (count/volume) 0.0 10*3/uL 0.0-0.1 Comprehensive metabolic panel - 11/12/18 05:40 Serum or plasma sodium measurement (moles/volume) 139 mmol/L 135-145 Serum or plasma potassium measurement (moles/volume) 4.0 mmol/L 3.6-5.0 Serum or plasma chloride measurement (moles/volume) 108 mmol/L 98-107 Carbon dioxide 20 mmol/L 21-32 Serum or plasma anion gap determination (moles/volume) 11 mmol/L 5-14 Serum or plasma urea nitrogen measurement (mass/volume ) 14 mg/dL 7-18 Serum or plasma creatinine measurement (mass/volume) 1.06 mg/dL 0.60-1.30 Serum or plasma urea nitrogen/creatinine mass ratio 13 NRG Serum or plasma creatinine measurement w ith calculation of estimated glomerular filtration rate > NRG Serum or plasma glucose measurement (mass/volume) 212 mg/dL 70-105 Serum or plasma calcium measurement (mass/volume) 9.1 mg/dL 8.5-10.1 Serum or plasma total bilirubin measurement (mass/volu me) 0.3 mg/dL 0.1-1.0 Serum or plasma alkaline phosphatase karen surement (enzymatic activity/volume) 69 U/L 40-136 Serum or plasma aspartate aminotransfera se measurement (enzymatic activity/volume) 22 U/L 5-34 Serum or plasma alanine aminotransferase measurement (enzymatic activity/volume) 37 U/L 0-55 Serum or plasma protein measurement (mass/volume) 7.0 g/dL 6.4-8.2 Serum or plasma albumin measurement (mass/volume) 4.2 g/dL 3.2-4.5 CALCIUM CORRECTED 8.9 mg/dL 8.5-10.1 Complete blood count (CBC) with automate d white blood cell (WBC) differential - 11/13/18 05:31 Blood leukocytes automated count (number/volume) 8.4 10*3/uL 4.3-11.0 Blood erythrocytes automated count (number/volume) 4.24 10*6/uL 4.35-5.85 Venous blood hemoglobin measurement (mass/volume) 12.7 g/dL 13.3-17.7 Blood hematocrit (volume fraction) 37 % 40-54 Automated erythrocyte mean corpuscular volume 88 [ foz_us] 80-99 Automated erythrocyte mean corpuscular h emoglobin (mass per erythrocyte) 30 pg 25-34 Automated erythrocyte mean corpuscular h emoglobin concentration measurement (mass/volume) 34 g/dL 32-36 Automated erythrocyte distribution width ratio 13. 8 % 10.0- 14.5 Automated blood platelet count (count/volume) 177 10*3/uL 130-400 Automated blood platelet mean volume measurement 10.7 [foz_us] 7.4-10.4 Automated blood neutrophils/100 leukocytes 58 % 42-75 Automated blood lymphocytes/100 leukocytes 30 % 12-44 Blood monocytes/100 leukocytes 7 % 0-12 Automated blood eosinophils/100 leukocytes 5 % 0-10 Automated blood basophils/100 leukocytes 0 % 0-10 Blood neutrophils automated count (number/volume) 4.8 10*3 1.8-7.8 Blood lymphocytes automated count (number/volume) 2.5 10*3 1.0-4.0 Blood monocytes automated count (number/volume) 0. 6 10*3 0.0-1.0 Automated eosinophil count 0.4 10*3/uL 0 .0-0.3 Automated blood basophil count (count/volume) 0.0 10*3/uL 0.0-0.1 Comprehensive metabolic panel - 11/13/18 05:31 Serum or plasma sodium measurement (moles/volume) 138 mmol/L 135-145 Serum or plasma potassium measurement (moles/volume) 4.2 mmol/L 3.6-5.0 Serum or plasma chloride measurement (moles/volume) 106 mmol/L 98-107 Carbon dioxide 22 mmol/L 21-32 Serum or plasma anion gap determination (moles/volume) 10 mmol/L 5-14 Serum or plasma urea nitrogen measurement (mass/volume ) 19 mg/dL 7-18 Serum or plasma creatinine measurement (mass/volume) 1.18 mg/dL 0.60-1.30 Serum or plasma urea nitrogen/creatinine mass ratio 16 NRG Serum or plasma creatinine measurement w ith calculation of estimated glomerular filtration rate > NRG Serum or plasma glucose measurement (mass/volume) 145 mg/dL 70-105 Serum or plasma calcium measurement (mass/volume) 8.8 mg/dL 8.5-10.1 Serum or plasma total bilirubin measurement (mass/volu me) 0.3 mg/dL 0.1-1.0 Serum or plasma alkaline phosphatase karen surement (enzymatic activity/volume) 70 U/L 40-136 Serum or plasma aspartate aminotransfera se measurement (enzymatic activity/volume) 17 U/L 5-34 Serum or plasma alanine aminotransferase measurement (enzymatic activity/volume) 26 U/L 0-55 Serum or plasma protein measurement (mass/volume) 6.4 g/dL 6.4-8.2 Serum or plasma albumin measurement (mass/volume) 3.8 g/dL 3.2-4.5 CALCIUM CORRECTED 9.0 mg/dL 8.5-10.1 Encounters ACCT No. Visit Date/Time Discharge Status Pt. Type Provider Facility Loc./Unit Complaint 06/201703/01/2019 16:53:33 03/01/2019 23:59: 59 CLS Outpatient Janneth Shrestha 5615 04/11/2019 14:14:00 Document Registration [id number] 05/09/2019 13:32:00 020 00:01:00 DIS Outpatient LARS AMATO FACC, ZEE AMATO CC DS [facility] REHAB PAD OF Bartolome GLYNN [id number] 11/10/2018 13:24:00 019 12:50:00 DIS Inpatient JANNETH SHRESTHA DO [facility] 4TH CELLULITIS LLB [id number] 10/19/2018 08:30:00 019 23:59:59 CLS Preadmit OTILIO MARKS [facility] CARD PAD [id number] 10/14/2018 07:59:00 23:59:59 CLS Outpatient SREE RICHTER [employer] [facility] WOUNDCARE [id number] 10/13/2018 10:42:00 23:59:59 CLS Outpatient MIRIAM PLUMMER [employer] [facility] RAD R FOOT PAIN AND SWELLING [id number] 09/22/2018 14:15:00 23:59:59 CLS Preadmit GIANCARLO OREILLY MD [facility] ENDO DYSPHAGIA [id number] 09/22/2018 09:15:00 12:05:00 DIS Outpatient GIANCARLO OREILLY MD [facility] ENDO DYSPHAGIA [id number] 09/21/2018 11:30:00 12:12:00 DIS Outpatient GIANCARLO OREILLY MD [facility] PREOP EGD [id number] 01/27/2018 13:21:00 019 12:02:00 DIS Outpatient OTILIO MARKS [facility] REHAB B LEG PAIN [id number] 01/19/2018 14:02:00 18:37:00 DIS Emergency LAKESHIA AMATO, JUS Hernandez [facility] ER R LEG PAIN [id number] 01/15/2018 12:30:00 23:59:59 CLS Outpatient ZEE SOUSA MD, FACC, FACP DS [facility] RAD RT HIP PAIN ,RT KNEE PAIN,PAD [id number] 12/15/2017 08:21:00 10:06:00 DIS Outpatient ZEE SOUSA MD, FACC, FACP CC DS [facility] CATH PAD [id number] 07/07/2017 07:25:00 23:59:59 CLS Outpatient ZEE SOUSA MD, FACC, FACP CC DS [facility] CARD I70.212 PAD [id number] 05/13/2017 08:00:00 03/28/2 018 23:59:59 CLS Preadmit LARS AMATO FACC, ALI FACP CCDS [facility] CARD I70.212 PAD [id number] 04/14/2017 06:34:00 018 10:05:00 DIS Outpatient LARS WATSONC, ALI FACP CC DS [facility] CATH PVD,LEG DISCOMFORT,CLAUDICATION [id number] 02/12/2017 07:45:00 017 23:59:59 CLS Preadmit LARS AMATO FACC, ALI FACP CCDS [facility] CARD R06.02 SOB [id number] 01/29/2017 09:30:00 017 10:52:00 DIS Inpatient JANNETH SHRESTHA DO S [facility] ICU OVERDOSE,AMS [id number] 08/05/2016 07:07:00 017 10:15:00 DIS Outpatient LARS AMATO FACC, ALI FACP CC DS [facility] CATH PAD,HL [id number] 07/22/2016 07:27:00 017 09:20:00 DIS Outpatient LARS AMATO FACC, ALI FACP CC DS [facility] CATH PAD,BILATER AL LEG DISCOMFORTS,HYPERLIPIDEMIA [id number] 06/03/2016 11:46:00 017 23:59:59 CLS Outpatient LARS AMATO FACC, ALI FACP CC DS [facility] RAD PAD,TOBACCO USER,ABNORMAL ECG [id number] 05/15/2016 10:39:00 017 23:59:59 CLS Outpatient LARS AMATO FACC, ALI FACP CC DS [facility] LAB PAD,TOBACCO USER,ABNORMAL ECG [id number] 08/31/2015 14:08:00 016 23:59:59 CLS Outpatient LARS AMATO FACC, ALI FACP CC DS [facility] CARD PAD, TOBACC O USER, ABNORMAL EKG [id number] 06/29/2015 10:39:00 016 23:59:59 CLS Outpatient JACKIE GONZALEZ APRN [facility] RAD THORACIC PAIN L T SCAPULA, LT POSRERIOR RIB PAIN [id number] 06/04/2015 08:47:00 23:59:59 CLS Outpatient QUINTEN ZENG MD [facility] SDC SCREENING [id number] 06/01/2015 05:39:00 09:28:00 DIS Outpatient QUINTEN ZENG MD [facility] PREOP SCREENING [id number] 05/30/2015 11:48:00 23:59:59 CLS Outpatient JACKIE GONZALEZ APRN [facility] RAD DYSPHAGIA [id number] 07/31/2015 12:03:00 Document Registration
[2019-08-06] MEDS ORDERED: VANCOMYCIN INJECTION 1,000 MG in NS (IVPB) 250 ML IV SCH (12:30)
--- NOTE | 2019-08-06 12:30 | ED Lower Extremity ---
General Chief Complaint: Lower Extremity Stated Complaint: STEPPED ON NAIL Nursing Triage Note: PT AMB TO [facility] 5 WITH COMPLAINT OF WOUND ON RIGHT FOOT. STATES HE STEPPED ON NAIL FOR DAYS AGO. STATES HE IS NOT UP TO DATE ON TETANUS. FOOT IS RED AND SWOLLEN Nursing Sepsis Screen: No Definite Risk Source: patient Exam Limitations: no limitations History of Present Illness Date Seen by Provider: Aug 06, 2019 Time Seen by Provider: 12:27 Initial Comments 2 days ago scraped the lateral aspect of his right foot with a nail while wearing sandals. He has history of diabetes neuropathy. Now the wound is purulent and foot is red and swollen. He denies fevers or chills. Allergies and Home Medications Allergies Coded Allergies: Penicillins (Verified Allergy, Mild, 11/10/18) cefaclor (Verified Allergy, Mild, 11/10/18) Home Medications Clindamycin HCl 300 Mg Capsule, 300 MG PO TID, (Reported) 10 DAY SUPPLY FILLED 11-08-18 Clopidogrel Bisulfate 75 Mg Tablet, 75 MG PO DAILY, (Reported) LAST FILLED #30 09-07-18 Cyclobenzaprine HCl 10 Mg Tablet, 10 MG PO HS PRN for MUSCLE SPASMS, (Reported) Fluticasone Propionate 1 Ea Aero, 4 PUFF INH BID PRN for SHORTNESS OF BREATH, (Reported) Lactobacillus Acidophilus 1 Each Capsule, 2 EACH PO TID Prescribed by: SYLVIA MARIA on 11/12/18 1050 Levofloxacin 750 Mg Tablet, 750 MG PO DAILY Prescribed by: SYLVIA MARIA on 11/12/18 1047 Multivitamin 1 Each Tablet, 1 TAB PO DAILY, (Reported) Omeprazole 40 Mg Capsule.dr, 40 MG PO HS, (Reported) LAST FILLED #30 09-07-18 Tramadol HCl 50 Mg Tablet, 100 MG PO TID Prescribed by: SYLVIA MARIA on 11/12/18 1047 Patient Home Medication List Home Medication List Reviewed: Yes Review of Systems Constitutional: no symptoms reported Respiratory: no symptoms reported Cardiovascular: no symptoms reported Genitourinary: no symptoms reported Musculoskeletal: see HPI Skin: see HPI All Other Systems Reviewed Negative Unless Noted: Yes Past Qfprxzj-Mtimea-Hwcxql Hx Patient Social History Alcohol Use: Denies Use Recreational Drug Use: No Smoking Status: Former Smoker Type Used: Cigarettes Former Smoker, Quit: Dec 15, 2016 2nd Hand Smoke Exposure: No Recent Foreign Travel: No Contact w/Someone Who Travel: No Recent Infectious Disease Expo: No Recent Hopitalizations: No Immunizations Up To Date Tetanus Booster (TDap): More than 5yrs PED Vaccines UTD: Yes Seasonal Allergies Seasonal Allergies: No Past Medical History Surgeries: Yes (R FINGER AMPUTATION, ING HERNIA X2, TOE TENDON, AORTIC STENT, LEG BYPASS) Orthopedic, Vascular Surgery Respiratory: No Currently Using CPAP: No Currently Using BIPAP: No Cardiac: Yes (HX OF AORTIC STENT, multiple stents to lorin. lower extremities) Deep Vein Thrombosis Neurological: No Sexually Transmitted Disease: No HIV/AIDS: No Genitourinary: No Gastrointestinal: Yes (DYSPHAGIA) Chronic Constipation Musculoskeletal: No (FINGERS AMP ) Amputee Endocrine: No HEENT: Yes (GLASSES) Loss of Vision: Denies Hearing Impairment: Denies Cancer: No Psychosocial: No Sleep Difficulties, Suicide Attempts Integumentary: No Blood Disorders: No Adverse Reaction/Blood Tranf: No (N/A) Family Medical History No Pertinent Family Hx Physical Exam Vital Signs Vital Signs - First Documented 08/06/19 10:17 Temp 36.5 Pulse 106 Resp 20 B/P (MAP) 152/88 (109) Pulse Ox 97 O2 Delivery Room Air Capillary Refill : Less Than 3 Seconds Height, Weight, BMI Height: 6'4.00" Weight: 180lbs. 0.0oz. 81.022883pk; 22.00 BMI Method:Stated General Appearance: WD/WN, no apparent distress Neck: supple Cardiovascular: regular rate, rhythm, no edema Respiratory: lungs clear, normal breath sounds Gastrointestinal: soft Feet: right foot other (there is a wound over the lateral aspect of the dorsum of the right foot. There is surrounding erythema all over the dorsum of the foot and it is swollen. He is insensate to touch and feels no pain. There is no lymphangitis up the leg) Neurologic/Tendon: sensory deficit Neurologic/Psychiatric: alert, normal mood/affect Skin: normal color, warm/dry Progress/Results/Core Measures Results/Orders My Orders Orders - TAWNY CRAVEN MD Foot, Right, 3 View (08/06/19 12:10) Vancomycin Injection (Vancomycin Injecti (08/06/19 12:30) Cbc With Automated Diff (08/06/19 12:16) Comprehensive Metabolic Panel (08/06/19 12:16) Hs C Reactive Protein (08/06/19 12:16) Wound Culture (08/06/19 12:16) Erythrocyte Sedimentation Rate (08/06/19 12:16) Vital Signs/I&O 08/06/19 10:17 Temp 36.5 Pulse 106 Resp 20 B/P (MAP) 152/88 (109) Pulse Ox 97 O2 Delivery Room Air Blood Pressure Mean: 109 Progress Progress Note : Time: 12:29 Progress Note I ordered x-ray antibiotics and labs. I think he has a significant cellulitis and is at high risk for worsening due to his diabetes. I strongly encouraged admission for IV antibiotics. He refused noting financial reasons. I told him he could easily lose his foot or . He understands and will sign out AMA if he decides to leave. 1240: agreed to stay Departure Communication (Admissions) Time/Spoke to Admitting Phy: 13:[address] Shahid Impression Primary Impression: Puncture wound of foot excluding toes with infection Additional Impression: Cellulitis of foot Disposition: ADMITTED INPATIENT Condition: Stable Admissions Decision to Admit Reason: Admit from ER (General) Decision to Admit/Date: Aug 06, 2019 Time/Decision to Admit Time: 13:08 Departure-Patient Inst. Referrals: ZEE SOUSA MD FACP FACC CCDS (PCP) Primary Care Physician TAWNY CRAVEN MD Aug 06, 2019 12:30
--- NOTE | 2019-08-06 12:59 | Diagnostic Imaging Report ---
HISTORY: Stepped on a nail 2 days ago. No feeling in the right foot from previous blood clots. COMPARISON: None TECHNIQUE: 3 views of the right foot. FINDINGS: There are claw toe deformities of the toes. This results in suboptimal evaluation in the toes, but no acute fracture or dislocation is seen in the right foot. No cortical erosion is seen. There is soft tissue swelling about the right forefoot. No radiopaque foreign body is seen. Joint spaces are generally preserved. IMPRESSION: 1. Soft tissue swelling about the right forefoot with no radiopaque foreign body or acute osseous abnormality seen. Dictated by: Dictated on workstation # [id number]
[2019-08-06] MEDS ORDERED: cefTRIAXone FOR IV USE 1,000 MG in WATER (STERILE) FOR INJECTION 10 ML IV ONE (14:00)
[2019-08-06] MEDS ORDERED: VANCOMYCIN 1,750 MG/NS 500 ML IVPB IV ONE ×2 (14:00)
--- NOTE | 2019-08-06 14:33 | NUR ---
WILLIAM AVILA admitted to room 417-1, with an admitting diagnosis of right foot cellulitis , on 08/06/19 from ER VIA wheelchair, accompanied by staff.WILLIAM AVILA introduced to surroundings, call light, bed controls, phone, TV, temperature control, lights, meal times, smoking policy, visitor policy, side rail policy, bathrooms and showers. Patient Rights given to patient in the handbook. WILLIAM AVILA verbalizes understanding that [facility] is not responsible for the loss or damage to any personal effects or valuables that are kept in the patients posession during their hospitalization. WILLIAM AVILA verbalizes understanding of Interdisciplinary Patient Education. Patient and/or family were informed about the Rapid Response Team and its purpose.
[2019-08-06 14:40] VITALS: BP 151/83
[2019-08-06 14:48] LABS: BASOPHILS % (AUTO) 0 % (0-10); EOSINOPHILS # (AUTO) 0.2 10^3/uL (0.0-0.3); EOSINOPHILS % (AUTO) 3 % (0-10); HEMATOCRIT 40 % (40-54); HEMOGLOBIN 13.6 G/DL (13.3-17.7); LYMPHOCYTES # (AUTO) 1.7 X 10^3 (1.0-4.0); LYMPHOCYTES % (AUTO) 22 % (12-44); MEAN CORPUSCULAR HEMOGLOBIN 29 PG (25-34); MEAN CORPUSCULAR HGB CONC 34 G/DL (32-36); MEAN CORPUSCULAR VOLUME 86 FL (80-99); MEAN PLATELET VOLUME 10.2 FL (7.4-10.4); MONOCYTES # (AUTO) 0.7 X 10^3 (0.0-1.0); MONOCYTES % (AUTO) 9 % (0-12); NEUTROPHILS # (AUTO) 5.2 X 10^3 (1.8-7.8); NEUTROPHILS % (AUTO) 67 % (42-75); PLATELET COUNT 215 10^3/uL (130-400); RED CELL DISTRIBUTION WIDTH 13.5 % (10.0-14.5); WHITE BLOOD COUNT 7.8 10^3/uL (4.3-11.0)
[2019-08-06 15:05] LABS: ALANINE AMINOTRANSFERASE 50 U/L (0-55); ALBUMIN 4.4 GM/DL (3.2-4.5); ALKALINE PHOSPHATASE 106 U/L (40-136); BILIRUBIN,TOTAL 0.5 MG/DL (0.1-1.0); BUN/CREATININE RATIO 13; CALCIUM 9.9 MG/DL (8.5-10.1); CARBON DIOXIDE 22 MMOL/L (21-32); CHLORIDE 104 MMOL/L (98-107); CREATININE SERUM 0.99 MG/DL (0.60-1.30); GFR ESTIMATED > 60; GLUCOSE 102 MG/DL (70-105); POTASSIUM 4.3 MMOL/L (3.6-5.0); SODIUM 140 MMOL/L (135-145); TOTAL PROTEIN 8.3 GM/DL (6.4-8.2)
--- NOTE | 2019-08-06 15:20 | NUR ---
VANCOMYCIN PHARMACY TO DOSE: PATIENT WEIGHT 83.1KG, SCr 0.99, CrCl 95.6; LOADING DOSE 20MG/KG X 83.1 KG = 1662 ~ 1750MG GIVEN 08/04 @ 1500; MAINT DOSE 15MG/KG X 83.1KG = 1247 ~ 1250MG Q12H; VANCOMYCIN TROUGH DUE 08/07 @ 0200. IF TROUGH >20, HOLD DOSE AND CONTACT PHARMACY FOR ADJUSTMENTS.
[2019-08-06 15:51] LABS: ERYTHROCYTE SEDIMENTATION RATE 95 MM/HR (0-30)
[2019-08-06 16:30] VITALS: BP 118/68
[2019-08-06] MEDS: HYDROcodone/APAP 5 MG/325 MG (LORTAB) TAB PO PRN ×2 (17:04→21:13)
[2019-08-06 19:35] VITALS: BP 148/73
[2019-08-06] MEDS ORDERED: BENZONATATE 100 MG (TESSALON) CAPSULE PO PRN (20:15)
[2019-08-06] MEDS ORDERED: ANTACID SUSP 30 ML UDC (MYLANTA) PO PRN (20:15)
[2019-08-06] MEDS ORDERED: ONDANSETRON 4 MG/2 ML (SDV) Z0FRAN IV PRN (20:15)
[2019-08-06] MEDS ORDERED: ACETAMINOPHEN 325 MG TABLET PO PRN (20:15)
[2019-08-07] VITALS: BP 125/70
[2019-08-07] MEDS: VANCOMYCIN 1250 MG/NS 250 ML IVPB IV SCH ×4 (03:31→15:43)
[2019-08-07 08:09] VITALS: BP 132/70
[2019-08-07] MEDS: HYDROcodone/APAP 5 MG/325 MG (LORTAB) TAB PO PRN ×3 (11:09→21:01)
[2019-08-07] MEDS: MILK OF MAGNESIA 400 MG/5 ML 30 ML UDC PO PRN ×2 (11:09→14:45)
--- NOTE | 2019-08-07 12:05 | History & Physical-Hospitalist ---
History of Present Illness HPI/Chief Complaint CC: Right foot cellulitis HPI: This is a 59yoWM clinic patient of Dr Shrestha who has a h/o DM, PVD and chronic lower extremity wounds in 2019 who presented to the ER with right foot edema and erythema. Apparently he unknowingly has been walking on a screw inside his right shoe since Thursday and then noted the wound and swelling yesterday so he came to ER for evaluation. He has severe neuropathy causing the loss of pain sensation to both of his feet. Tetanus vaccine will be given. IV abx will be maintained along with Dr Gann consultation. DVT PPx and Plavix will be maintained. Source: patient, family, RN/MD, old records Exam Limitations: no limitations Date Seen 08/07/19 Time Seen by a Provider: 11:45 Attending Physician Desirae Shahid MD PCP No,Local Physician Referring Physician Date of Admission Aug 06, 2019 at 13:06 Home Medications & Allergies Home Medications Reviewed patient Home Medication Reconciliation performed by pharmacy medication reconciliations milieu technician and/or nursing. Patients Allergies have been reviewed. 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[employer]) Alcohol Use: Denies Use Recreational Drug Use: No Smoking Status: Former Smoker Former Smoker, Quit: Dec 15, 2016 Type Used: Cigarettes 2nd Hand Smoke Exposure: No Recent Foreign Travel: No Contact w/other who traveled: No Recent Hopitalizations: No Recent Infectious Disease Expo: No Immunizations Up To Date Tetanus Booster (TDap): More than 5yrs Pediatric: Yes Seasonal Allergies Seasonal Allergies: No Past Medical History Surgeries: Orthopedic, Vascular Surgery Currently Using CPAP: No Currently Using BIPAP: No Cardiac: Deep Vein Thrombosis, Peripheral Vascular Neurological: Neuropathy Sexually Transmitted Disease: No HIV/AIDS: No Gastrointestinal: Chronic Constipation Musculoskeletal: Amputee Loss of Vision: Denies Hearing Impairment: Denies Psychosocial: Sleep Difficulties, Suicide Attempts History of Blood Disorders: No Adverse Reaction to Blood [place]: No (N/A) Family History No Pertinent Family Hx Review of Systems Constitutional: see HPI Musculoskeletal: other (right foot pain) Physical Exam Physical Exam Vital Signs Vital Signs - First Documented 08/06/19 10:17 Temp 36.5 Pulse 106 Resp 20 B/P (MAP) 152/88 (109) Pulse Ox 97 O2 Delivery Room Air Capillary Refill : Less Than 3 Seconds Height, Weight, BMI Height: 6'4.00" Weight: 180lbs. 0.0oz. 81.266529hk; 22.30 BMI Method:Stated General Appearance: No Apparent Distress, Chronically ill, Thin Eyes: Right Eye Normal Inspection, Right Eye PERRL HEENT: PERRL/EOMI, Normal ENT Inspection, Pharynx Normal, Moist Mucous M embranes Neck: Full Range of Motion, Normal Inspection, Non Tender Respiratory: Chest Non Tender, Lungs Clear, Normal Breath Sounds, No Accessory Muscle Use, No Respiratory Distress Cardiovascular: Regular Rate, Rhythm, No Edema, No Gallop, No JVD, No Murmur, Normal Peripheral Pulses Gastrointestinal: Normal Bowel Sounds, No Organomegaly, No Pulsatile Mass, Non Tender, Soft Back: Normal Inspection, No CVA Tenderness, No Vertebral Tenderness Extremity: Normal Capillary Refill, Normal Inspection, Normal Range of Motion, Non Tender, No Calf Tenderness, No Pedal Edema Neurologic/Psychiatric: Alert, Oriented x3, No Motor/Sensory Deficits, Normal Mood/Affect Skin: Normal Color, Warm/Dry, Other (right foot with erythema and edema and ttp) Lymphatic: No Adenopathy Results Results/Procedures Labs Laboratory Tests 08/06/19 14:20 Patient resulted labs reviewed. Assessment/Plan Admission Diagnosis Assessment: Right foot cellulitis Severe lower extremity neuropathy DM PVD h/o leg wounds Former smoker h/o DVT Plan: IV abx Pain meds Lovenox Plavix Dr Gann Admission Status: Inpatient Order (span 2 midnights) Reason for Inpatient Admission: foot cellulitis with PVD and DM Diagnosis/Problems Diagnosis/Problems (1) Cellulitis of foot Status: Acute (2) Diabetes (3) PAD (peripheral artery disease) Clinical Quality Measures DVT/VTE Risk/Contraindication: Risk Factor Score Per Nursin RFS Level Per Nursing on Admit: 4+=Very High YESENIA ANDREWS DO Aug 07, 2019 12:05
[2019-08-07] MEDS ORDERED: ONDANSETRON 4 MG (ZOFRAN) ORAL DISSOLVE TAB PO PRN (12:15)
[2019-08-07] MEDS ORDERED: MELATONIN 3 MG TABLET PO PRN (12:15)
[2019-08-07] MEDS ORDERED: TETANUS & DIPHTHERIA TOX,ADULT 0.5 ML (TENIVAC) IM ONE (13:15)
--- NOTE | 2019-08-07 13:30 | CONSULTATION REPORT ---
DATE OF SERVICE: 08/07/2019 ATTENDING PRIMARY CARE ILLNESS: The patient is a 59-year-old male who presented with pain and swelling along the right lateral foot. He was running sandals and states approximately 2 days ago scraped or hitting nail. He also does have a history of diabetes as well as diabetic neuropathy. He then presented to the Emergency Department and found to have redness, swelling of the right lateral foot. PAST MEDICAL HISTORY: Diabetes, peripheral vascular disease, history of DVT, gastroesophageal reflux disease. PAST SURGICAL HISTORY: Bilateral inguinal hernia repair, aortic stent placement, lower extremity bypass. ALLERGIES: PENICILLIN, CEFACLOR. MEDICATIONS: Plavix 75 mg daily, cyclobenzaprine 10 mg p.r.n., omeprazole 40 mg daily, tramadol t.i.d., clindamycin 300 mg t.i.d. SOCIAL HISTORY: Previous smoker, negative alcohol. FAMILY HISTORY: Noncontributory. VITAL SIGNS: Temperature 36.4, blood pressure 132/70, pulse 91, respirations 20, pulse oximetry 94% on room air. REVIEW OF SYSTEMS: Well-nourished male currently in no acute distress. He is not experiencing any shortness of breath or difficulty breathing. No chest pain, palpitations, diaphoresis. No nausea, vomiting, no diarrhea or constipation. No fever, chills, no recent inadvertent weight loss. All other review of systems negative. PHYSICAL EXAMINATION: CHEST: Clear. Good breath sounds bilaterally. HEART: Regular, no murmurs. EXTREMITIES: There is swelling and edema as well as erythema along the right lateral foot consistent with cellulitis. There is no fluctuance at this time to indicate an abscess. HEENT: No scleral icterus. NECK: No cervical lymphadenopathy. ABDOMEN: Soft, nontender, nondistended. SKIN: Warm, dry. LABORATORY DATA: WBC 7.8, hemoglobin 13.6, hematocrit 40, and platelets 215. BUN 13, creatinine 0.99. ASSESSMENT AND PLAN: A 59-year-old male with a history of diabetes and diabetic neuropathy with right foot cellulitis. Due to his history, this could be a Staph epidermidis versus a methicillin-resistant Staph aureus and he is currently on vancomycin, which we will continue. We will continue to monitor the wound for developing abscess as well. Job ID: [id number] DocumentID: [id number] Dictated Date: 08/07/2019 12:53:43 Bundle Wrapper Date: 08/07/2019 13:29:33 Dictated By: GIANCARLO OREILLY MD
[2019-08-07] MEDS: ENOXAPARIN 40 MG/0.4 ML (LOVENOX) SYR SC SCH (14:48)
[2019-08-07 16:01] VITALS: BP 137/76
[2019-08-07] MEDS ORDERED: METO50TA7 PO (16:12)
[2019-08-07] MEDS ORDERED: METF-865 PO (16:12)
[2019-08-07] MEDS ORDERED: CYCLOBENZAPRINE 10 MG (FLEXERIL) TAB PO PRN (16:15)
[2019-08-07] MEDS: LEVOFLOXACIN 750 MG/150 ML IV 150 ML IV SCH (17:00)
[2019-08-07] MEDS: MELATONIN 3 MG TABLET PO PRN (22:12)
[2019-08-08 00:26] VITALS: BP 103/54
[2019-08-08] MEDS ORDERED: TROUGH ORDER-PHARMACY XX NR (02:00)
[2019-08-08] MEDS: VANCOMYCIN 1250 MG/NS 250 ML IVPB IV SCH ×6 (03:00→19:28)
--- NOTE | 2019-08-08 07:11 | NUR ---
PHARMACY TO DOSE VANCOMYCIN LABS: SCR 0.99 VANCOMYCIN LEVEL 20.3 08/07 @ 0203(PREVIOUS DOSE GIVEN 45 MINUTES LATE; PRIOR TO 4TH DOSE) PLAN: CONTINUE WITH CURRENT DOSING AND RESCHEDULED FOR 0800 TODAY, RECHECK A LEVEL MID WEEK AND ADJUST DOSE IF GREATER THAN 20.
[2019-08-08 08:00] VITALS: BP 113/57
[2019-08-08] MEDS: LEVOFLOXACIN 750 MG/150 ML IV 150 ML IV SCH (08:36)
[2019-08-08] MEDS: CLOPIDOGREL 75 MG (PLAVIX) TABLET PO SCH (08:36)
[2019-08-08] MEDS: HYDROcodone/APAP 5 MG/325 MG (LORTAB) TAB PO PRN ×3 (08:39→21:38)
--- NOTE | 2019-08-08 08:54 | NUR ---
this nurse checked with pharmacy to make sure vancomycin was ok to give after last trough of 20.3. pharmacy told this nurse that the trough was only a 10 hr not a 12 hr and to give the antibiotic.
--- NOTE | 2019-08-08 10:41 | Diagnostic Imaging Report ---
PROCEDURE: US Bilateral lower extremity arterial. TECHNIQUE: Multiple real-time grayscale images are obtained through both lower extremity arterial systems with color Doppler imaging and color Doppler spectral analysis. INDICATION: Peripheral vascular disease and neuropathy. Left lower extremity arterial system demonstrates biphasic waveforms within the common femoral as well as the proximal and mid superficial femoral arteries. Monophasic waveforms in the distal SFA and popliteal artery as well as at the ankle and the posterior tibial and dorsalis pedis arteries. No high-grade stenosis or occlusion on the left is identified. On the right, patient has stents throughout the superficial femoral artery which appear to be completely occluded. The right common femoral artery is monophasic but shows normal velocities. There is a femoral popliteal graft which is patent and shows monophasic waveforms. There is monophasic waveforms at the ankle and the posterior tibial and dorsalis pedis arteries. IMPRESSION: 1. Unremarkable left lower extremity arterial Doppler. 2. Occluded [place] right SFA. There is a right femoropopliteal graft which is patent. There are monophasic waveforms throughout the right lower extremity arterial system as well as distal left SFA and popliteal as well as at the ankle. Dictated by: Dictated on workstation # [id number]
[2019-08-08] MEDS ORDERED: METF-478 PO (11:11)
[2019-08-08] MEDS ORDERED: MULT9LIQ6 PO (11:12)
[2019-08-08] MEDS ORDERED: ASPI-983 PO (11:12)
--- NOTE | 2019-08-08 11:13 | NUR ---
SPOKE WITH THE PT AND WENT THRU THE EXT MED HISTORY TO COMPLETE THE MED REC PT WAS ABLE TO TELL ME HOW/WHEN HE TAKES EACH MED AND HIS INFORMATION MATCHED THE EXT MED HISTORY OTC MEDS: [employer] LIQUID ASPIRIN 81
[2019-08-08] MEDS: ENOXAPARIN 40 MG/0.4 ML (LOVENOX) SYR SC SCH (11:40)
--- NOTE | 2019-08-08 13:07 | Progress Note ---
Subjective Date Seen by a Provider: Aug 08, 2019 Time Seen by a Provider: 12:30 Subjective/Events-last exam Fwup Right foot cellulitis, DMII with neuropathy, Hx of PVD. States foot is still red and swollen. Objective Exam Vital Signs Date Time Temp Pulse Resp B/P (MAP) Pulse Ox O2 Delivery O2 Flow Rate FiO2 08/08/19 08:00 36.2 91 18 113/57 (75) 94 Room Air 08/08/19 08:00 94 Room Air 08/08/19 00:26 37.7 99 20 103/54 (70) 97 Room Air 08/07/19 19:30 Room Air 08/07/19 16:01 36.0 88 20 137/76 (96) 97 Room Air I & O 08/08/19 07:00 Intake Total 2473 ml Output Total 752 ml Balance 1721 ml Capillary Refill : Less Than 3 SecondsLess Than 3 Seconds General Appearance: No Apparent Distress Respiratory: Lungs Clear Cardiovascular: Regular Rate, Rhythm Extremity: Non Tender, No Calf Tenderness, No Pedal Edema Neurologic/Psychiatric: Alert, Oriented x3 Skin: Erythema (to top of right foot with some edema) Results Lab Laboratory Tests 08/08/19 02:03: Vancomycin Level Trough 20.3H Assessment/Plan Assessment/Plan Assess & Plan/Chief Complaint 1. Right Foot Cellulitis--on Levaquin/Vanc--ESR/CRP/CBC in AM 2. DMII with neuropathy--start accuchecks with SSI 3. History of PVD and DVT--start lovenox for DVT prophylaxis Clinical Quality Measures DVT/VTE Risk/Contraindication: Risk Factor Score Per Nursin RFS Level Per Nursing on Admit: 4+=Very High SYLVIA MARIA DO Aug 08, 2019 13:07
[2019-08-08 16:18] VITALS: BP 126/75
[2019-08-08] MEDS: inSUlin ASPART (NovoLOG) 1 UNIT/0.01 ML (CHARGE PER UNIT) SC SCH ×2 (16:19→21:24)
--- NOTE | 2019-08-08 16:36 | Progress Note ---
Subjective Date Seen by a Provider: Aug 08, 2019 Time Seen by a Provider: 16:00 Subjective/Events-last exam doing better. less redness/erythema. no fever/chills. Objective Exam Vital Signs Date Time Temp Pulse Resp B/P (MAP) Pulse Ox O2 Delivery O2 Flow Rate FiO2 08/08/19 16:18 36.2 87 20 126/75 (92) 97 Room Air 08/08/19 08:00 36.2 91 18 113/57 (75) 94 Room Air 08/08/19 08:00 94 Room Air 08/08/19 00:26 37.7 99 20 103/54 (70) 97 Room Air 08/07/19 19:30 Room Air I & O 08/08/19 07:00 Intake Total 2473 ml Output Total 752 ml Balance 1721 ml Capillary Refill : Less Than 3 SecondsLess Than 3 Seconds General Appearance: No Apparent Distress HEENT: PERRL/EOMI Neck: Full Range of Motion Respiratory: Chest Non Tender, Lungs Clear, Normal Breath Sounds Cardiovascular: Regular Rate, Rhythm Gastrointestinal: normal bowel sounds, non tender, soft Extremity: Slow Capillary Refill, Other (right foot redness/erythema) Neurologic/Psychiatric: Alert, Oriented x3 Skin: Normal Color Lymphatic: No Adenopathy Results Lab Laboratory Tests 08/08/19 02:03: Vancomycin Level Trough 20.3H 08/08/19 16:02: Glucometer 113H Assessment/Plan Assessment/Plan Assess & Plan/Chief Complaint right foot cellulitis. cont abx. no abscess. duplex u/s shows adequate large vessel arterial flow. Clinical Quality Measures DVT/VTE Risk/Contraindication: Risk Factor Score Per Nursin RFS Level Per Nursing on Admit: 4+=Very High GIANCARLO OREILLY MD Aug 08, 2019 16:36
[2019-08-08] MEDS: MELATONIN 3 MG TABLET PO PRN (21:38)
[2019-08-09 00:44] VITALS: BP 105/53
[2019-08-09] MEDS: inSUlin ASPART (NovoLOG) 1 UNIT/0.01 ML (CHARGE PER UNIT) SC SCH ×4 (05:37→21:09)
[2019-08-09 05:50] LABS: MEAN PLATELET VOLUME 10.2 FL (7.4-10.4); RED CELL DISTRIBUTION WIDTH 13.5 % (10.0-14.5); WHITE BLOOD COUNT 5.7 10^3/uL (4.3-11.0)
[2019-08-09] MEDS: HYDROcodone/APAP 5 MG/325 MG (LORTAB) TAB PO PRN ×4 (05:50→21:23)
[2019-08-09 08:00] VITALS: BP 115/69
[2019-08-09] MEDS: VANCOMYCIN 1250 MG/NS 250 ML IVPB IV SCH ×2 (08:50)
[2019-08-09] MEDS: CLOPIDOGREL 75 MG (PLAVIX) TABLET PO SCH (08:51)
[2019-08-09] MEDS: LEVOFLOXACIN 750 MG/150 ML IV 150 ML IV SCH (08:51)
--- NOTE | 2019-08-09 11:25 | Progress Note ---
Subjective Date Seen by a Provider: Aug 09, 2019 Time Seen by a Provider: 11:00 Subjective/Events-last exam doing well. less redness/erythema right foot. no fluctuance.. no fever/chills. Objective Exam Vital Signs Date Time Temp Pulse Resp B/P (MAP) Pulse Ox O2 Delivery O2 Flow Rate FiO2 08/09/19 08:00 36.4 80 16 115/69 (84) 97 Room Air 08/09/19 00:44 37.0 80 18 105/53 (70) 96 Room Air 08/08/19 19:10 Room Air 08/08/19 16:18 36.2 87 20 126/75 (92) 97 Room Air I & O 08/09/19 07:00 Intake Total 2599 ml Output Total 2925 ml Balance -326 ml Capillary Refill : Less Than 3 SecondsLess Than 3 Seconds General Appearance: No Apparent Distress HEENT: PERRL/EOMI Neck: Full Range of Motion Respiratory: Chest Non Tender, Decreased Breath Sounds Cardiovascular: Regular Rate, Rhythm Gastrointestinal: normal bowel sounds, non tender, soft Extremity: Normal Capillary Refill Neurologic/Psychiatric: Alert, Oriented x3 Skin: Normal Color Lymphatic: No Adenopathy Results Lab Laboratory Tests 08/08/19 16:02: Glucometer 113H 08/08/19 20:12: Glucometer 106 08/09/19 05:10: White Blood Count 5.7, Red Blood Count 4.24L, Hemoglobin 12.0L, Hematocrit 36L, Mean Corpuscular Volume 86, Mean Corpuscular Hemoglobin 28, Mean Corpuscular Hemoglobin Concent 33, Red Cell Distribution Width 13.5, Platelet Count 256, Mean Platelet Volume 10.2, Erythrocyte Sedimentation Rate 69H, C-Reactive Protein High Sensitivity 6.98H 08/09/19 05:32: Glucometer 171H Assessment/Plan Assessment/Plan Assess & Plan/Chief Complaint right foot cellulitis. cont abx. no abscess. duplex u/s shows adequate large vessel arterial flow. will need to be fitted for proper orthotics and regular monitoring long-term by podiatry. Clinical Quality Measures DVT/VTE Risk/Contraindication: Risk Factor Score Per Nursin RFS Level Per Nursing on Admit: 4+=Very High GIANCARLO OREILLY MD Aug 09, 2019 11:25
[2019-08-09] MEDS: ENOXAPARIN 40 MG/0.4 ML (LOVENOX) SYR SC SCH (12:31)
--- NOTE | 2019-08-09 15:05 | NUR ---
RD ASSESSMENT PMHx: chronic LE wounds; DM; amputation; PVD PT INTERACTION: Pt was awake and pleasant during nutrition assessment. Pt states current appetite is okay. Note avg PO intake 95% x3d, per chart review. Pt states following a regular diet at home, and has no issues with chewing/swallowing food despite having no teeth. Pt states no recent issues with nausea, vomiting, or constipation. Pt states recent issues with diarrhea. Note last BM was 08/08, and pt not currently on bowel regimen per chart review. Pt states recent 30# wt gain x6mon. Note unable to determine recent wt hx, per chart review. Pt states current DM management is "pretty good." Pt states he notices his blood glucose levels rise to "about 170 when I drink coffee, but it drops back down to 130 if I drink regular Mountain Dew." When asked what he puts in his coffee, pt responded with "a lot of sugar." Note unable to determine recent HbA1c, per chart review. Note presence of wounds (lower extremities and R foot), per chart review. ABNORMAL NUTRITION-RELATED LAB VALUES LOW: HIGH: glu 171 Est. kcal needs: 7888-7557 kcal | 25-30 kcal/kg Est. Pro needs: 100-116 g Pro | 1.2-1.4 g Pro/kg PES STATEMENT: Inadequate protein intake (NI-5.6.1) related to increased protein needs as evidenced by presence of wounds (lower extremities and R foot) INTERVENTION: Continue with current diet order of CHO 60g/m 3snack diet. Add Ensure HP (vary) to meals TID. Provides 160 kcal and 16 g Pro per serving, for perceived benefit to wound healing. Discussed current DM management with pt concerning CHO intake. Discussed CHO counting, DM and wounds, and smartphone applications. Pt verbalized understanding of material presented. Will continue to follow and reassess as pt needs, intake, and status change. MONITOR/EVALUATE: PO Intake; Plan of Care; Hydration Status; Weight Status; Lab Values Liza Rojas, MS, RD, LD
[2019-08-09 16:37] VITALS: BP 120/79
--- NOTE | 2019-08-09 17:01 | Progress Note ---
Subjective Date Seen by a Provider: Aug 09, 2019 Time Seen by a Provider: 12:30 Subjective/Events-last exam Fwup Right foot cellulitis, DMII with neuropathy, Hx of PVD. Foot less red and less swollen. Objective Exam Vital Signs Date Time Temp Pulse Resp B/P (MAP) Pulse Ox O2 Delivery O2 Flow Rate FiO2 08/09/19 16:37 36.7 84 15 120/79 (93) 100 Room Air 08/09/19 08:00 97 Room Air 08/09/19 08:00 36.4 80 16 115/69 (84) 97 Room Air 08/09/19 00:44 37.0 80 18 105/53 (70) 96 Room Air 08/08/19 19:10 Room Air I & O 08/09/19 07:00 Intake Total 2599 ml Output Total 2925 ml Balance -326 ml Capillary Refill : Less Than 3 SecondsLess Than 3 Seconds General Appearance: No Apparent Distress Extremity: Non Tender, No Calf Tenderness, No Pedal Edema Neurologic/Psychiatric: Alert, Oriented x3 Skin: Other (right foot with dressing in place and less erythema and less swelling) Results Lab Laboratory Tests 08/08/19 20:12: Glucometer 106 08/09/19 05:10: White Blood Count 5.7, Red Blood Count 4.24L, Hemoglobin 12.0L, Hematocrit 36L, Mean Corpuscular Volume 86, Mean Corpuscular Hemoglobin 28, Mean Corpuscular Hemoglobin Concent 33, Red Cell Distribution Width 13.5, Platelet Count 256, Mean Platelet Volume 10.2, Erythrocyte Sedimentation Rate 69H, C-Reactive Protein High Sensitivity 6.98H 08/09/19 05:32: Glucometer 171H 08/09/19 12:08: Glucometer 81 08/09/19 16:21: Glucometer 118H Assessment/Plan Assessment/Plan Assess & Plan/Chief Complaint 1. Right Foot Cellulitis--on Levaquin/Vanc--ESR/CRP improving, possibly home tomorrow on oral abx 2. DMII with neuropathy--start metformin 3. History of PVD and DVT--on lovenox for DVT prophylaxis Clinical Quality Measures DVT/VTE Risk/Contraindication: Risk Factor Score Per Nursin RFS Level Per Nursing on Admit: 4+=Very High SYLVIA MARIA DO Aug 09, 2019 17:01
[2019-08-09] MEDS: metFORMIN XR 500 MG (GLUCOPHAGE XR) TAB PO SCH (18:29)
[2019-08-09] MEDS ORDERED: TROUGH ORDER-PHARMACY XX NR (19:00)
[2019-08-09] MEDS: MELATONIN 3 MG TABLET PO PRN (21:23)
[2019-08-10] VITALS: BP 116/60
[2019-08-10] MEDS: HYDROcodone/APAP 5 MG/325 MG (LORTAB) TAB PO PRN ×2 (01:32→11:23)
[2019-08-10] MEDS: inSUlin ASPART (NovoLOG) 1 UNIT/0.01 ML (CHARGE PER UNIT) SC SCH ×2 (06:31→11:01)
[2019-08-10] MEDS ORDERED: TROUGH ORDER-PHARMACY XX NR (07:00)
[2019-08-10 07:18] VITALS: BP 118/75
--- NOTE | 2019-08-10 07:31 | NUR ---
VANCOMYCIN DOSING TROUGH LEVEL LAST NIGHT 24.0 REPEAT LEVEL THIS AM 15.2 - WILL CHANGE FREQUENCY TO VANC 1250 MG Q24H
[2019-08-10] MEDS ORDERED: VANCOMYCIN 1250 MG/NS 250 ML IVPB IV SCH ×2 (08:00)
[2019-08-10] MEDS: CLOPIDOGREL 75 MG (PLAVIX) TABLET PO SCH (08:27)
[2019-08-10] MEDS: metFORMIN XR 500 MG (GLUCOPHAGE XR) TAB PO SCH (08:27)
[2019-08-10] MEDS ORDERED: LEVOFLOXACIN 750 MG TAB (LEVAQUIN) PO SCH (11:00)
[2019-08-10] MEDS: ENOXAPARIN 40 MG/0.4 ML (LOVENOX) SYR SC SCH (11:18)
--- NOTE | 2019-08-10 11:26 | Progress Note ---
Subjective Date Seen by a Provider: Aug 10, 2019 Time Seen by a Provider: 11:20 Subjective/Events-last exam doing well. no complaints. redness/erythema/edema improved considerably since admission. no abscess. Objective Exam Vital Signs Date Time Temp Pulse Resp B/P (MAP) Pulse Ox O2 Delivery O2 Flow Rate FiO2 08/10/19 08:00 95 Room Air 08/10/19 07:18 36.2 84 16 118/75 (89) 95 Room Air 08/10/19 00:00 36.5 85 21 116/60 (78) 96 Room Air 08/09/19 21:15 Room Air 08/09/19 16:37 36.7 84 15 120/79 (93) 100 Room Air I & O 08/10/19 07:00 Intake Total 3294 ml Output Total 2000 ml Balance 1294 ml Capillary Refill : Less Than 3 SecondsLess Than 3 Seconds General Appearance: No Apparent Distress HEENT: PERRL/EOMI Neck: Full Range of Motion Respiratory: Chest Non Tender, Lungs Clear, Normal Breath Sounds Cardiovascular: Regular Rate, Rhythm Gastrointestinal: normal bowel sounds, non tender, soft Extremity: Slow Capillary Refill, Other (decreased redness/erythema right lateral foot) Neurologic/Psychiatric: Alert, Oriented x3 Skin: Normal Color Lymphatic: No Adenopathy Results Lab Laboratory Tests 08/09/19 12:08: Glucometer 81 08/09/19 16:21: Glucometer 118H 08/09/19 18:58: Vancomycin Level Trough 24.0H 08/09/19 20:11: Glucometer 166H 08/10/19 06:30: Glucometer 119H 08/10/19 06:54: Vancomycin Level Trough 15.2 08/10/19 10:55: Glucometer 128H Assessment/Plan Assessment/Plan Assess & Plan/Chief Complaint right foot cellulitis. cont abx. no abscess. duplex u/s shows adequate large vessel arterial flow. will need to be fitted for proper orthotics and regular monitoring snf by podiatry. Clinical Quality Measures DVT/VTE Risk/Contraindication: Risk Factor Score Per Nursin RFS Level Per Nursing on Admit: 4+=Very High GIANCARLO OREILLY MD Aug 10, 2019 11:26
--- NOTE | 2019-08-10 12:30 | NUR ---
CM/SS visited with patient for discharge planning. Plan: The patient will discharge home today with oral antibiotics. The patient reports that the physician stated he will be on oral antibiotics and not IV. The patient states that at home he is completely independent but has neuropathy in his legs which causes him to injury his feet. The patient reports multiple injuries to his legs and feet in the past that have lead to hospitalization. Per the patient, the physician is having him check his feet daily to be proactive with injuries. He does not feel he needs any additional help in his home due to having his , daughter, and son present in the home. No further needs at this time.
[2019-08-10] MEDS ORDERED: LEVO750T39 PO (13:33)
[2019-08-10 13:53] VITALS: BP 118/75
== END 2019-08-10 14:01 | disposition home or self-care (01) | DRG 603 ==
LOC: EDUNIT# 10:12 → ER 10:13 → 4TH 13:06
PROVIDERS: ADMIT Family Medicine; ATTEND Family Medicine
DX: L03.115 Cellulitis of right lower limb (principal); S91.331A Puncture wound without foreign body, right foot, initial encounter; E11.42 Type 2 diabetes mellitus with diabetic polyneuropathy; E11.51 Type 2 diabetes mellitus with diabetic peripheral angiopathy without gangrene; K59.09 Other constipation; K21.9 Gastro-esophageal reflux disease without esophagitis; R13.10 Dysphagia, unspecified; G47.9 Sleep disorder, unspecified; Z86.718 Personal history of other venous thrombosis and embolism; Z87.891 Personal history of nicotine dependence; Z95.828 Presence of other vascular implants and grafts; Z91.5 Personal history of self-harm; Z23 Encounter for immunization; Z79.02 Long term (current) use of antithrombotics/antiplatelets; W45.0XXA Nail entering through skin, initial encounter
CPT/HCPCS: 36415; 73630; 80053; 80202; 82962; 85025; 85027; 85652; 86141; 90714; 93925; 96374

== ENCOUNTER 2019-09-02 10:27 | Emergency (ER) | payer BC ==
[~2019-09-02] VITALS: Ht 190 cm; Wt 82.0 kg
[~2019-09-02 10:27] MED LIST changes: +ASPI-983 PO; +LEVO750T39 PO; +METF-478 PO; +METF-865 PO; +METO50TA7 PO; +MULT9LIQ6 PO
--- NOTE | 2019-09-02 11:45 | ED Lower Extremity ---
General Chief Complaint: Lower Extremity Stated Complaint: TROUBLE WALKING;R LEG PAIN;SWELLING Source: patient Exam Limitations: no limitations History of Present Illness Date Seen by Provider: Sep 02, 2019 Time Seen by Provider: 11:40 Initial Comments To ER with increasing right leg pain for the past 2-3 days. He has diabetic neuropathy so his sensation is reduced but he's had some pain from the right foot all the way up to the right thigh. He was admitted here August 06 with infection of the lateral right foot after stepping on a screw. He was given IV antibiotics, surgery was consulted but no drainable abscess so no debridement was done. Symptoms improved and he was sent home. He had a recurrence of pain as well as a wound to the right lateral dorsal aspect of the foot that he noticed turned a blackish color about 2 days ago. 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 Muhammad in March of this year. He denies fevers. He is on aspirin and Plavix. Quit smoking 2016. Onset: other Severity: moderate Pain/Injury Location: right leg, right foot Modifying Factors: Worse With Movement Allergies and Home Medications Allergies Coded Allergies: Penicillins (Verified Allergy, Mild, 11/10/18) cefaclor (Verified Allergy, Mild, 11/10/18) Home Medications Aspirin 81 Mg Tablet.dr, 81 MG PO HS, (Reported) Clopidogrel Bisulfate 75 Mg Tablet, 75 MG PO DAILY, (Reported) Cyclobenzaprine HCl 10 Mg Tablet, 10 MG PO HS PRN for MUSCLE SPASMS, (Reported) Levofloxacin 750 Mg Tablet, 750 MG PO DAILY@1100 Prescribed by: SYLVIA MARIA on 08/10/19 1333 Metformin HCl 500 Mg Tab.er.24, 500 MG PO BID, (Reported) Metoprolol Succinate 50 Mg Tab.er.24h, 50 MG PO DAILY, (Reported) Multivit &Minerals/Ferrous Fum 9 Mg/15 Ml Liquid, 9 MG PO DAILY, (Reported) Patient Home Medication List Home Medication List Reviewed: Yes Review of Systems Constitutional: see HPI EENTM: see HPI Respiratory: no symptoms reported Cardiovascular: no symptoms reported Genitourinary: no symptoms reported Musculoskeletal: see HPI Skin: see HPI Past Ieakdkh-Ygwdnz-Uefbhy Hx Patient Social History Alcohol Use: Denies Use Recreational Drug Use: No Smoking Status: Former Smoker Type Used: Cigarettes Former Smoker, Quit: Dec 15, 2016 2nd Hand Smoke Exposure: No Recent Foreign Travel: No Contact w/Someone Who Travel: No Recent Hopitalizations: No Immunizations Up To Date Tetanus Booster (TDap): More than 5yrs PED Vaccines UTD: Yes Seasonal Allergies Seasonal Allergies: No Past Medical History Surgeries: Yes (R FINGER AMPUTATION, ING HERNIA X2, TOE TENDON, AORTIC STENT, LEG BYPASS) CABG, Orthopedic, Vascular Surgery Respiratory: No Currently Using CPAP: No Currently Using BIPAP: No Cardiac: Yes (HX OF AORTIC STENT, multiple stents to lorin. lower extremities) Deep Vein Thrombosis, Peripheral Vascular Neurological: No Neuropathy Sexually Transmitted Disease: No HIV/AIDS: No Genitourinary: No Gastrointestinal: Yes (DYSPHAGIA) Chronic Constipation Musculoskeletal: No (FINGERS AMP ) Amputee Endocrine: No HEENT: Yes (GLASSES) Loss of Vision: Denies Hearing Impairment: Denies Cancer: No Psychosocial: No Sleep Difficulties, Suicide Attempts Integumentary: No Blood Disorders: No Adverse Reaction/Blood Tranf: No (N/A) Family Medical History No Pertinent Family Hx Physical Exam Vital Signs Vital Signs - First Documented 09/02/19 11:31 Temp 36.4 Pulse 93 Resp 18 B/P (MAP) 153/98 (116) O2 Delivery Room Air Capillary Refill : Height, Weight, BMI Height: 6'4.00" Weight: 180lbs. 0.0oz. 81.454690md; 22.30 BMI Method:Stated General Appearance: WD/WN, no apparent distress HEENT: PERRL/EOMI, normal ENT inspection Respiratory: no respiratory distress, no accessory muscle use Hips: bilateral hip non-tender, bilateral hip normal inspection, bilateral hip normal range of motion Legs: bilateral leg non-tender, bilateral leg normal inspection, bilateral leg normal range of motion (healed incision over the medial right thigh) Knees: bilateral knee non-tender, bilateral knee normal inspection, bilateral knee normal range of motion Ankles: bilateral ankle non-tender, bilateral ankle normal inspection, bilateral ankle normal range of motion Feet: right foot other (to the right lateral foot dorsally there is a roughly 2 x 3 cm necrotic area of skin just proximal to the fourth and fifth MTP joints. There is a puncture wound seen on the plantar surface of the foot beneath this. I'm unable to palpate a posterior tibial or a dorsalis pedis pulse on the right. I can't palpate a posterior tibial pulse on the left. He does have capillary refill a bit delayed of the great toe at about 3-4 seconds. I am unable to Doppler blood flow in either of these arteries either.) Neurologic/Psychiatric: alert, normal mood/affect, oriented x 3 Skin: normal color, warm/dry Progress/Results/Core Measures Results/Orders Lab Results Laboratory Tests Test 09/02/19 12:05 09/02/19 13:15 Range/Units Sodium Level 138 135-145 MMOL/L Potassium Level 4.3 3.6-5.0 MMOL/L Chloride Level 105 98-107 MMOL/L Carbon Dioxide Level 21 21-32 MMOL/L Anion Gap 12 5-14 MMOL/L Blood Urea Nitrogen 20 H 7-18 MG/DL Creatinine 1.11 0.60-1.30 MG/DL Estimat Glomerular Filtration Rate > 60 BUN/Creatinine Ratio 18 Glucose Level 112 H 70-105 MG/DL Calcium Level 9.4 8.5-10.1 MG/DL Corrected Calcium 9.1 8.5-10.1 MG/DL Total Bilirubin 0.6 0.1-1.0 MG/DL Aspartate Amino Transf (AST/SGOT) 65 H 5-34 U/L Alanine Aminotransferase (ALT/SGPT) 94 H 0-55 U/L Alkaline Phosphatase 92 40-136 U/L Total Protein 7.9 6.4-8.2 GM/DL Albumin 4.4 3.2-4.5 GM/DL White Blood Count 6.7 4.3-11.0 10^3/uL Red Blood Count 4.39 4.35-5.85 10^6/uL Hemoglobin 12.4 L 13.3-17.7 G/DL Hematocrit 37 L 40-54 % Mean Corpuscular Volume 85 80-99 FL Mean Corpuscular Hemoglobin 28 25-34 PG Mean Corpuscular Hemoglobin Concent 33 32-36 G/DL Red Cell Distribution Width 14.5 10.0-14.5 % Platelet Count 181 130-400 10^3/uL Mean Platelet Volume 10.4 7.4-10.4 FL Neutrophils (%) (Auto) 60 42-75 % Lymphocytes (%) (Auto) 27 12-44 % Monocytes (%) (Auto) 9 0-12 % Eosinophils (%) (Auto) 4 0-10 % Basophils (%) (Auto) 0 0-10 % Neutrophils # (Auto) 4.0 1.8-7.8 X 10^3 Lymphocytes # (Auto) 1.8 1.0-4.0 X 10^3 Monocytes # (Auto) 0.6 0.0-1.0 X 10^3 Eosinophils # (Auto) 0.3 0.0-0.3 10^3/uL Basophils # (Auto) 0.0 0.0-0.1 10^3/uL Erythrocyte Sedimentation Rate 44 H 0-30 MM/HR My Orders Orders - TOMMY HOOPER APRN Us Right Low Ext [id number] (09/02/19 11:38) Cbc With Automated Diff (09/02/19 11:38) Comprehensive Metabolic Panel (09/02/19 11:38) Erythrocyte Sedimentation Rate (09/02/19 11:38) Foot, Right, 3 View (09/02/19 11:38) Hydrocodone/Apap 5/325 Tablet (Lortab 5 (09/02/19 12:15) Heparin Drip [id number] Unit/500ml (Heparin (09/02/19 12:57) Heparin (Bolus Per Protocol) (Heparin (B (09/02/19 13:00) Ns Iv 1000 Ml (Sodium Chloride 0.9%) (09/02/19 13:15) Fentanyl Injection (Sublimaze Injection (09/02/19 13:15) Medications Given in ED Current Medications Medications Dose Ordered Sig/Marilee Route Start Time Stop Time Status Last Admin Dose Admin Acetaminophen/ Hydrocodone Bitart 1 tab ONCE ONCE PO 09/02/19 12:15 09/02/19 12:16 DC 09/02/19 12:15 1 TAB Fentanyl Citrate 50 mcg ONCE ONCE IVP 09/02/19 13:15 09/02/19 13:16 DC 09/02/19 13:41 50 MCG Heparin Sodium (Porcine) HEPARIN FULL PROTOC... ONCE ONCE IV 09/02/19 13:00 09/02/19 13:01 DC 09/02/19 13:41 5,000 UNIT Heparin Sodium/ Dextrose 500 ml @ 0 mls/hr Q0M ONCE IV 09/02/19 12:57 09/02/19 12:59 DC 09/02/19 13:44 24 MLS/HR Vital Signs/I&O 09/02/19 11:31 Temp 36.4 Pulse 93 Resp 18 B/P (MAP) 153/98 (116) O2 Delivery Room Air Diagnostic Imaging Diagonstic Imaging: Xray Comments NAME: WILLIAM AVILA MED REC#: [id number] PT STATUS: REG ER : 1960 PHYSICIAN: TOMMY HOOPER APRN ADMIT DATE: 09/02/19/ER Draft Date of Exam:09/02/19 FOOT, RIGHT, 3 VIEW HISTORY: Stepped on nail. History of diabetes. COMPARISON: 08/06/2019 TECHNIQUE: 3 views of the right foot FINDINGS: There is a soft tissue defect in the lateral aspect of the right foot adjacent to the midshaft of the 5th metatarsal. No radiopaque foreign body is seen. No cortical erosion or periosteal reaction is seen. No acute fracture seen in the right foot. There are degenerative changes in the 2nd through 4th proximal interphalangeal joints of the right foot. IMPRESSION: 1. Soft tissue defect at the lateral right foot with no radiopaque foreign body or acute osseous abnormality seen. Dictated on workstation # [id number] Dict: 09/02/19 1226 Trans: 09/02/19 1230 [id number] Interpreted by: JUDE DANIEL MD Electronically signed by: Departure Communication (Admissions) Family Conversation [id number] spoke with philomena Bonds's physician covering vascular services at [place] in [facility] she agrees to accept the patient. NAME: WILLIAM AVILA MED REC#: [id number] PT STATUS: REG ER : 1960 PHYSICIAN: TOMMY HOOPER APRN ADMIT DATE: 09/02/19/ER Draft Date of Exam:09/02/19 FOOT, RIGHT, 3 VIEW HISTORY: Stepped on nail. History of diabetes. COMPARISON: 08/06/2019 TECHNIQUE: 3 views of the right foot FINDINGS: There is a soft tissue defect in the lateral aspect of the right foot adjacent to the midshaft of the 5th metatarsal. No radiopaque foreign body is seen. No cortical erosion or periosteal reaction is seen. No acute fracture seen in the right foot. There are degenerative changes in the 2nd through 4th proximal interphalangeal joints of the right foot. IMPRESSION: 1. Soft tissue defect at the lateral right foot with no radiopaque foreign body or acute osseous abnormality seen. Dictated on workstation # [id number] Dict: 09/02/19 1226 Trans: 09/02/19 1230 SA [id number] Interpreted by: JUDE DANIEL MD Electronically signed by: NAME: WILLIAM AVILA [facility] REC#: [id number] PT STATUS: REG ER : 1960 PHYSICIAN: TOMMY HOOPER APRN ADMIT DATE: 09/02/19/ER Draft Date of Exam:09/02/19 US RIGHT LOW EXT [id number] HISTORY: Severe right leg pain. COMPARISON: 08/08/2019. TECHNIQUE: Grayscale, color Doppler and spectral Doppler ultrasound of the arterial structures in the right lower extremity. FINDINGS: The right common femoral artery appears patent, with a slightly biphasic waveform, measuring 146 cm/s. The deep femoral artery has a monophasic waveform and measures 198 cm/s. The femoropopliteal bypass graft appears to be occluded proximally to distally. The mid popliteal artery measures 38 cm/s and has a monophasic waveform. The posterior tibial artery has a monophasic waveform and measures 26 cm/s. The anterior tibial artery is monophasic and measures 22 cm/s. The dorsalis pedis is monophasic and measures 10 cm/s. IMPRESSION: 1. 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 There is reconstitution of flow distally, although it is diminished with monophasic waveforms. 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 Referrals: SYLVIA MARIA DO (PCP/Family) Primary Care Physician Images Extremities-Lower 1 - Other-See Progress Note TOMMY HOOPER APRN Sep 02, 2019 11:44
--- NOTE | 2019-09-02 11:45 | NUR ---
Doppler used to assess R. pedal pulse, provider unable to detect pulse. US ordered
--- OUTSIDE RECORDS SUMMARY | 2019-09-02 12:10 | XMS REPORT | CCD ---
Author Author [place] Organization [facility]ANNETH SHRESTHA DO [facility] Address [address] [place] [address] Phone Unavailable Care Team Providers Care Log Feeder Name Role Phone Janneth Shrestha D.O., PP Unavailable CCM Unavailable Summary Purpose Interface Exchange Insurance Providers Payer name Policy type / Coverage type Covered alliance party ID Effective Begin Date Effective End Date Blue Cross Blue Shield Blue Cross/Blue Shield [id number] Unknown Family History Family History data not found Social History Social History Element Codes Description Effective Dates Marital status Unknown 05/24/2015 Number of children Unknown 2 05/24/2015 Employment Unknown Currently employed 05/24/[address]: [id number] 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 05/24/2015 Allergies, Adverse Reactions, Alerts Substance Reaction Codes Entered Date Inactivated Date Status * NO KNOWN FOOD ALLERGIES Unknown 05/24/2015 No Inactiv e Date Active * NO KNOWN ENVIRONMENTAL ALLERGIES Unknown 05/24/2015 N o Inactive Date Active _ Unknown 05/24/2015 No Inactive Date Active Problems Condition Codes Effective Dates Condition Status Cellulitis of right foot ICD-9: 682.7 ICD-10: L03.115 08/18/2019 Active DM w/o complication type II, uncontrolled ICD-9: 250.0 2 ICD-10: E11.65 04/11/2019 Active Puncture wound of right foot ICD-9: 892.0 ICD-10: S91.331A 08/18/2019 Active Other specified local infections of the [...] Start Date Stop Date Status Fill Instructions Levaquin 500 mg tablet RxNorm: 452993 1 Tablet(s) Oral QD 08/18/2019 08/25/2019 Active metoprolol succinate ER 50 mg tablet,extended release 24 hr RxNorm: 306958 1 Tablet(s) Oral QD 08/01/2019 08/18/2019 Inactive cyclobenzaprine 10 mg tablet RxNorm: 284442 TAKE ONE TA BLET BY MOUTH AT BEDTIME NEEDED 07/12/2019 No Stop Date Active cephalexin 500 mg tablet RxNorm: 071957 1 Tablet(s) Oral three times a day 07/05/2019 07/12/2019 Inactive cyclobenzaprine 10 mg tablet RxNorm: 998859 TAKE ONE TA BLET BY MOUTH AT BEDTIME NEEDED 05/20/2019 07/11/2019 Inactive metformin ER 1,000 mg tablet,extended release 24hr RxNorm: 1 172979 1 Tablet(s) Oral two times a day replaces 500mg dose 05/17/2019 11/13/2019 Active [AttnRPh: Saving apply/adjudicate RxGRP:[id number] RxBIN:[id number] RxPCN: ID#:[id number]] ReliOn Prime Test Strips RxNorm: 1 Unit [...] 05/01/2019 Inactive Plavix 75 mg tablet RxNorm: 918517 TAKE ONE TABLET BY MOUTH DAILY 0 04/25/2019 04/26/2019 Inactive Plavix 75 mg tablet RxNorm: 052252 TAKE ONE TABLET BY MOUTH DAILY 0 04/25/2019 04/24/2019 Inactive Xarelto 20 mg tablet RxNorm: 8125712 1 Tablet(s) Oral QD 04/25/2019 0 07/04/2019 Inactive amiodarone 200 mg tablet RxNorm: 172976 1 Tablet(s) Oral QD 020 07/04/2019 Inactive metformin ER 500 mg 24 hr tablet,extended release RxNorm: 18 38267 1 Tablet(s) Oral two times a day 04/25/2019 05/16/2019 Inactive prednisone 20 mg tablet RxNorm: 284927 1 Tablet(s) Oral two jn es a day 04/25/2019 05/01/2019 Inactive aspirin 81 mg tablet,delayed release RxNorm: 894004 1 Tablet(s) Oral QD 04/11/2019 No Stop Date Active pantoprazole 40 mg tablet,delayed release RxNorm: 238532 1 Tabl et(s) Oral QAM 04/11/2019 08/18/2019 Inactive Vitamin C 1,000 mg tablet RxNorm: 517917 1 Tablet(s) Oral QD 201908/18/2019 Inactive Xarelto 15 mg tablet RxNorm: 4197484 1 Tablet(s) Oral QD 04/11/2019 0 04/24/2019 Inactive metformin ER 500 mg 24 hr tablet,extended release RxNorm: 18 81788 1 Tablet(s) Oral QD 04/11/2019 04/24/2019 Inactive cephalexin 500 mg capsule RxNorm: 462471 1 Capsule(s) Oral thre e times a day 04/11/2019 04/18/2019 Inactive metoprolol succinate ER 50 mg tablet,extended release 24 hr RxNorm: 657408 1 Tablet(s) Oral QD replaces 25mg dose 04/11/2019 05/01/2019 Inactive cyclobenzaprine 10 mg tablet RxNorm: 848415 TAKE ONE TA BLET BY MOUTH EVERY NIGHT AT BEDTIME NEEDED 03/11/2019 No Stop Date Active mupirocin 2 % topical ointment RxNorm: 442483 Applicati on Topical two times a day 03/01/2019 04/10/2019 Inactive metoprolol succinate ER 25 mg tablet,extended release 24 hr RxNorm: 931882 1 Tablet(s) Oral QD 03/01/2019 04/24/2019 Inactive Bactrim DS 800 mg-160 mg tablet RxNorm: 576176 1 Tablet(s) Oral two times a day 03/01/2019 03/11/2019 Inactive cyclobenzaprine 10 mg tablet RxNorm: 172137 TAKE ONE TA BLET BY MOUTH EVERY NIGHT AT BEDTIME NEEDED 01/10/2019 03/10/2019 Inactive Plavix 75 mg tablet RxNorm: 730464 TAKE ONE TABLET BY MOUTH DAILY 1 03/12/2018 04/24/2019 Inactive omeprazole 40 mg capsule,delayed release RxNorm: 317767 TAKE ONE CAPSULE BY MOUTH EVERY NIGHT AT BEDTIME FOR REFLUX 01/10/2019 05/16/2019 Inactive tramadol 50 mg tablet RxNorm: 085260 1 Tablet(s) Oral f our times a day as needed 01/03/2019 01/03/2019 Inactive doxycycline monohydrate 100 mg capsule RxNorm: 6644099 1 Capsule(s) Oral two times a day 11/22/2018 12/13/2018 Inactive prednisone 20 mg tablet RxNorm: 292375 1 Tablet(s) Oral two jn es a day 11/22/2018 11/29/2018 Inactive Levaquin 750 mg tablet RxNorm: 607300 Tablet(s) Oral 11/18/201802/28 Inactive prednisone 20 mg tablet RxNorm: 034610 1 Tablet(s) Oral two jn es a day 11/18/2018 11/21/2018 Inactive tramadol 50 mg tablet RxNorm: 590659 Tablet(s) Oral 11/18/20182018 Inactive doxycycline monohydrate 100 mg capsule RxNorm: 8288400 1 Capsule(s) Oral two times a day 11/18/2018 11/21/2018 Inactive Plavix 75 mg tablet RxNorm: 472870 TAKE ONE TABLET BY MOUTH DAILY 0 11/10/2018 01/08/2019 Inactive clindamycin HCl 300 mg capsule RxNorm: 727449 1 Capsule (s) Oral three times a day 11/09/2018 11/19/2018 Inactive Keflex 500 mg capsule RxNorm: 409449 1 Capsule(s) PO BID 10/13/2018 0 10/22/2018 Inactive Medrol (Brenden) 4 mg tablets in a dose pack RxNorm: 799535 Tablet(s) take as directed PO 09/23/2018 10/12/2018 Inactive omeprazole 40 mg capsule,delayed release RxNorm: 335706 1 Capsule(s) PO QHS for reflux 09/06/2018 11/04/2018 Inactive Diflucan 150 mg tablet RxNorm: 110113 1 Tablet(s) PO Q72H 07/15/2018 09/05/2018 Inactive cyclobenzaprine 10 mg tablet RxNorm: 362196 1 Tablet(s) PO QHS as needed 07/15/2018 10/12/2018 Inactive nystatin 100,000 unit/gram topical cream RxNorm: 888587 1 Gram( s) TOP BID 07/15/2018 09/05/2018 Inactive Plavix 75 mg tablet RxNorm: 470288 1 Tablet(s) PO QD 07/15/201810/12 Inactive cyclobenzaprine 10 mg tablet RxNorm: 760328 1 Tablet(s) PO QHS as needed 06/10/2018 06/09/2018 Inactive cyclobenzaprine 10 mg tablet RxNorm: 747061 TAKE ONE TA BLET BY MOUTH EVERY NIGHT AT BEDTIME NEEDED 05/10/2018 06/10/2018 Inactive mupirocin 2 % topical ointment RxNorm: 685651 1 Application TOP BID 2018 05/25/2018 Inactive 22 gram cyclobenzaprine 10 mg tablet RxNorm: 534517 1 Tablet(s) PO QHS as needed 04/14/2018 06/09/2018 Inactive doxycycline hyclate 100 mg tablet RxNorm: 8699006 1 Tablet(s) PO BI D 04/14/2018 04/23/2018 Inactive cyclobenzaprine 10 mg tablet RxNorm: 965323 1 Tablet(s) PO QHS as needed 04/07/2018 04/13/2018 Inactive Bactrim DS 800 mg-160 mg tablet RxNorm: 743895 1 Tablet(s) PO BID 0 03/18/2018 03/27/2018 Inactive cyclobenzaprine 10 mg tablet RxNorm: 596630 1 Tablet(s) PO QHS as needed 03/18/2018 04/06/2018 Inactive triamcinolone acetonide 0.1 % topical cream RxNorm: 7247488 APPLY TO AFFECTED AREA(S) TWO TIMES A DAY 02/03/2018 02/12/2018 Inactive triamcinolone acetonide 0.1 % topical cream RxNorm: 9073592 1 Application TOP BID 01/26/2018 02/02/2018 Inactive Medrol (Brenden) 4 mg tablets in a dose pack RxNorm: 509105 TAKE BY MOUTH INSTRUCTED - PER PACKAGE INSTRUCTIONS 12/11/2017 12/16/2017 Inactive Medrol (Brenden) 4 mg tablets in a dose pack RxNorm: 859434 Tablet(s) P O 10/06/2017 12/10/2017 Inactive Lunesta 3 mg tablet RxNorm: 135424 1 Tablet(s) PO QHS 11/25/201608/2016 Inactive Lunesta 3 mg tablet RxNorm: 563970 1 Tablet(s) PO QHS 11/14/201610/2016 Inactive Bactrim DS 800 mg-160 mg tablet RxNorm: 718779 1 Tablet(s) PO BID 0 11/14/2016 11/23/2016 Inactive Epi E-Z Pen 0.3 mg/0.3 mL injection, auto-injector RxNorm: 1 546012 Milliliter(s) IM Use as Directed 06/25/2016 09/05/2018 Inactive amoxicillin 875 mg tablet RxNorm: 239425 1 Tablet(s) PO BID 017 04/11/2016 Inactive prednisone 20 mg tablet RxNorm: 110652 1 Tablet(s) PO BID 04/02/2016 04/06/2016 Inactive azithromycin 250 mg tablet RxNorm: 288128 2 Tablet(s) P O on day one then 1 tab on days 2-5 11/29/2015 11/28/2015 Inactive Medrol (Brenden) 4 mg tablets in a dose pack RxNorm: 587876 Take as directed 11/29/2015 11/13/2016 Inactive meloxicam 15 mg tablet RxNorm: 653725 1 Tablet(s) PO QD 07/02/2015 Inactive Chantix Starting Month Box 0.5 mg (11)-1 mg (42) table ts in dose pack RxNorm: 046933 Tablet(s) PO As Directed 06/20/2015 07/10/2015 Inactive omeprazole 40 mg capsule,delayed release RxNorm: 676338 1 Capsu le(s) PO QD 05/31/2015 11/13/2016 Inactive omeprazole 40 mg capsule,delayed release RxNorm: 752396 1 Capsu le(s) PO QD 05/31/2015 05/30/2015 Inactive Multivitamin And Mineral oral RxNorm: oral No Start Date Active Wellbutrin SR 150 mg tablet,sustained-release RxNorm: 478526 1 Tablet(s) PO BID No Start Date 11/13/2016 Inactive gabapentin 100 mg capsule RxNorm: 650956 1 Capsule(s) PO TID No Sta rt Date 03/17/2018 Inactive Chantix Starting Month Box 0.5 mg (11)-1 mg (42) table ts in dose pack RxNorm: 434378 Tablet(s) PO As Directed No Start Date 06/19/2015 Inactive Eliquis 5 mg tablet RxNorm: 6975943 1 Tablet(s) PO BID No Start Date 03/17/2018 Inactive Lactobacillus acidophilus-Bifidobacterium longum oral RxNorm: oral No Start Date 07/04/2019 Inactive aspirin 325 mg tablet RxNorm: 881574 1 Tablet(s) PO QD No Start Date 11/13/2016 Inactive clindamycin HCl 300 mg capsule RxNorm: 330975 2 Capsule(s) PO Q8H N o Start Date 03/17/2018 Inactive Fish Oil 1,000 mg (120 mg-180 mg) capsule RxNorm: 1 Caps ule(s) PO QD No Start Date 09/05/2018 Inactive aspirin 81 mg tablet RxNorm: 650503 1 Tablet(s) PO QD No Start Date 1 03/28/2017 Inactive Fish Oil 1,000 mg capsule RxNorm: 1 Capsule(s) PO QD No Start Date 11/13/2016 Inactive Baby Aspirin 81 mg chewable tablet RxNorm: 688769 1 Tablet(s) P O BID No Start Date 02/02/2017 Inactive Xarelto 10 mg tablet RxNorm: 7939214 1 Tablet(s) PO QD No Start Date 01/25/2018 Inactive tramadol 50 mg tablet RxNorm: 952739 1-2 Tablet(s) PO Q6H No Start Date 03/17/2018 Inactive meloxicam 15 mg tablet RxNorm: 273500 1 Tablet(s) PO QD No Start Da te 07/01/2015 Inactive Epi E-Z Pen 0.3 mg/0.3 mL injection, auto-injector RxNorm: 1 623229 Milliliter(s) IM Use as Directed No Start Date 06/24/2016 Inactive Plavix 75 mg tablet RxNorm: 511469 1 Tablet(s) PO QD No Start Date Inactive Medication Administered No Medication Administered data Immunizations No Immunization data Results Observation Observation Code Item Item Code Result Date S ervice Location MEAN GLUC 8890427 Calc Mean Gluc 151 mg/dL 08/18/2019 Unkn own GLYCOSYLATED HEMOGLOBIN TEST 64218 Hgb A1c 56496-1 6.9 % 0 08/18/2019 Unknown COMPREHENSIVE METABOLIC 68091 AST 25 U/L 2018 Unknown COMPREHENSIVE METABOLIC 45395 ALT 28 U/L 2018 Unknown COMPREHENSIVE METABOLIC 73577 BUN 13 mg/dL 2018 Unknown COMPREHENSIVE METABOLIC 69778 ALBUMIN 4.2 g/dL 2018 Unknown COMPREHENSIVE METABOLIC 63314 CHLORIDE 104 mmol/L 11/09 Unknown COMPREHENSIVE METABOLIC 84171 Bili Total 0.5 mg/dL 11/09 Unknown COMPREHENSIVE METABOLIC 13802 ALK PHOS 72 U/L 2018 Unknown COMPREHENSIVE METABOLIC 44940 SODIUM 139 mmol/L 11/09 Unknown COMPREHENSIVE METABOLIC 87644 CREATININE 0.98 mg/dL 10/18 Unknown COMPREHENSIVE METABOLIC 96144 CALCIUM 9.1 mg/dL 2018 Unknown COMPREHENSIVE METABOLIC 33758 POTASSIUM 3.7 mmol/L 11/09 Unknown COMPREHENSIVE METABOLIC 38519 Total Protein 7.2 g/dL Unknown COMPREHENSIVE METABOLIC 48846 Glucose 137 mg/dL 2018 Unknown COMPREHENSIVE METABOLIC 93317 Bicarbonate 24 mmol/L 10/18 Unknown COMPREHENSIVE METABOLIC 27405 AGAP 11 mmol/L 2018 Unknown COMPLETE BLOOD COUNT 8160799 WBC 4.6 10e9/L 11/10/19 19 Unknown COMPLETE BLOOD COUNT [id number] RBC 4.88 10e12/L 2018 Unknown COMPLETE BLOOD COUNT 0073081 HEMOGLOBIN 14.7 g/dL 11/10/19 19 Unknown COMPLETE BLOOD COUNT [id number] HEMATOCRIT 43.7 % 11/10/19 19 Unknown COMPLETE BLOOD COUNT 3093162 MCV 89.5 fL 9 Unknown COMPLETE BLOOD COUNT 6817170 MCH 30.1 pg 9 Unknown COMPLETE BLOOD COUNT 8253671 MCHC 33.6 g/dL 9 Unknown COMPLETE BLOOD COUNT 0029980 PLATELET COUNT 179 10e9/L Unknown COMPLETE BLOOD COUNT 1439901 Mean Plt Volume 11.6 fL Unknown COMPLETE BLOOD COUNT 4872792 Neut Auto 55.5 % 9 Unknown COMPLETE BLOOD COUNT 3277130 Lymph Auto 28.7 % 11/10/19 19 Unknown COMPLETE BLOOD COUNT [id number] [place] Auto 7.9 % 9 Unknown COMPLETE BLOOD COUNT 3971246 Eos Auto 7.7 % 9 Unknown COMPLETE BLOOD COUNT 8296083 RDW 13.2 % 9 Unknown COMPLETE BLOOD COUNT 3356146 Baso Auto 0.2 % 9 Unknown COMPLETE BLOOD COUNT 3800528 Neutrophil Abs 2.55 10e9/L Unknown COMPLETE BLOOD COUNT [id number] Lymphocyte Abs 1.32 10e9/L Unknown COMPLETE BLOOD COUNT [id number] Monocyte Abs 0.36 10e9/L 10/18 Unknown COMPLETE BLOOD COUNT 7396336 Eosinophil Abs 0.35 10e9/L Unknown COMPLETE BLOOD COUNT 8494809 RDW-SD 42.2 fL 9 Unknown COMPLETE BLOOD COUNT 0250873 Basophil Abs 0.01 10e9/L 10/18 Unknown LIPID GROUP 19702 Cholesterol 205 mg/dL 11/09/2018 Unkno wn LIPID GROUP 73424 Triglyceride 268 mg/dL 11/09/2018 Unkn own LIPID GROUP 18035 HDL CHOLESTEROL 35 mg/dL 11/09/2018 U nknown LIPID GROUP 91168 Chol/HDL Ratio 5.86 ratio 11/09/2018 U nknown LIPID GROUP 32875 NON-HDL Chol 170 mg/dL 11/09/2018 Unkn own LIPID GROUP 37821 LDL Cholesterol 116 mg/dL 11/09/2018 U nknown PT 7057332 PT 12.7 Seconds 11/09/2018 Unknow n PT [id number] INR 0.9 11/09/2018 Unknown GFR CALC 4244664 GFR Afr Amr >60 mL/min 11/09/2018 Unknow n GFR CALC 3993222 GFR Non Afr Amr >60 mL/min 11/09/2018 Un known ACT PARTIAL THRMBOPLASTIN TIME 34428 PTT 34.0 [place] nds 11/09/2018 Unknown LIPID GROUP 83220 Cholesterol 186 mg/dL 2018 Unkno wn LIPID GROUP 70535 Triglyceride 229 mg/dL 2018 Unkn own LIPID GROUP 95254 HDL CHOLESTEROL 36 mg/dL 2018 U nknown LIPID GROUP 38339 Chol/HDL Ratio 5.17 ratio 2018 U nknown LIPID GROUP 82998 NON-HDL Chol 150 mg/dL 2018 Unkn own LIPID GROUP 10064 LDL Cholesterol 104 mg/dL 2018 U nknown GFR CALC 4015542 GFR Non Afr Amr >60 mL/min 2018 Un known GFR CALC 0003080 GFR Afr Amr >60 mL/min 2018 Unknow n COMPREHENSIVE METABOLIC 83712 AST 23 U/L 2018 Unknown COMPREHENSIVE METABOLIC 34627 ALT 22 U/L 2018 Unknown COMPREHENSIVE METABOLIC 53499 BUN 15 mg/dL 2018 Unknown COMPREHENSIVE METABOLIC 69844 ALBUMIN 4.1 g/dL 2018 Unknown COMPREHENSIVE METABOLIC 96048 CHLORIDE 106 mmol/L 05/06 Unknown COMPREHENSIVE METABOLIC 33304 Bili Total 0.6 mg/dL 05/06 Unknown COMPREHENSIVE METABOLIC 56797 ALK PHOS 61 U/L 2018 Unknown COMPREHENSIVE METABOLIC 63218 SODIUM 141 mmol/L 05/06 Unknown COMPREHENSIVE METABOLIC 49742 CREATININE 0.91 mg/dL 04/17 Unknown COMPREHENSIVE METABOLIC 97036 CALCIUM 9.2 mg/dL 2018 Unknown COMPREHENSIVE METABOLIC 30457 POTASSIUM 3.8 mmol/L 05/06 Unknown COMPREHENSIVE METABOLIC 96602 Total Protein 7.0 g/dL Unknown COMPREHENSIVE METABOLIC 45565 Glucose 97 mg/dL 2018 Unknown COMPREHENSIVE METABOLIC 16505 Bicarbonate 28 mmol/L 04/17 Unknown COMPREHENSIVE METABOLIC 99456 AGAP 7 mmol/L 2018 Unknown THYROID STIMULATING HORMONE 71427 TSH 2.094 uIU/mL 2018 Unknown COMPLETE BLOOD COUNT 4273303 WBC 5.5 10e9/L 05/07/19 19 Unknown COMPLETE BLOOD COUNT 4848037 RBC 4.61 10e12/L 2018 Unknown COMPLETE BLOOD COUNT 7462261 HEMOGLOBIN 13.6 g/dL 05/07/19 19 Unknown COMPLETE BLOOD COUNT 5627221 HEMATOCRIT 40.0 % 05/07/19 19 Unknown COMPLETE BLOOD COUNT 5759660 MCV 86.8 fL 9 Unknown COMPLETE BLOOD COUNT 7219007 MCH 29.5 pg 9 Unknown COMPLETE BLOOD COUNT 8357842 MCHC 34.0 g/dL 9 Unknown COMPLETE BLOOD COUNT 0912135 PLATELET COUNT 197 10e9/L Unknown COMPLETE BLOOD COUNT 4804360 Mean Plt Volume 10.8 fL Unknown COMPLETE BLOOD COUNT 9461150 Neut Auto 49.6 % 9 Unknown COMPLETE BLOOD COUNT 9687450 Lymph Auto 36.8 % 05/07/19 19 Unknown COMPLETE BLOOD COUNT 8290988 [place] Auto 8.1 % 9 Unknown COMPLETE BLOOD COUNT 1364829 RDW 15.3 % 9 Unknown COMPLETE BLOOD COUNT 0534404 Eos Auto 5.3 % 9 Unknown COMPLETE BLOOD COUNT 4657139 Baso Auto 0.2 % 9 Unknown COMPLETE BLOOD COUNT 7297299 Neutrophil Abs 2.73 10e9/L Unknown COMPLETE BLOOD COUNT 7611034 Lymphocyte Abs 2.02 10e9/L Unknown COMPLETE BLOOD COUNT [id number] Monocyte Abs 0.45 10e9/L 04/17 Unknown COMPLETE BLOOD COUNT 2442399 Eosinophil Abs 0.29 10e9/L Unknown COMPLETE BLOOD COUNT 4246902 RDW-SD 47.9 fL 9 Unknown COMPLETE BLOOD COUNT 8063844 Basophil Abs 0.01 10e9/L 04/17 Unknown Procedures Procedure Codes Date ROUTINE VENIPUNCTURE CPT-4: 49371 08/18/2019 A1C HPLC CPT-4: 33712 08/18/2019 CEFTRIAXONE SODIUM INJECTION CPT-4: J0696 11/09/2018 THER/PROPH/DIAG INJ SC/IM CPT-4: 03054 11/09/2018 ROUTINE VENIPUNCTURE CPT-4: 11692 11/09/2018 COMPREHEN METABOLIC PANEL CPT-4: 93652 11/09/2018 COMPLETE CBC W/AUTO DIFF WBC CPT-4: 46762 11/09/2018 LIPID PANEL CPT-4: 22456 11/09/2018 PROTHROMBIN TIME CPT-4: 70666 11/09/2018 THROMBOPLASTIN TIME PARTIAL CPT-4: 22092 11/09/2018 THER/PROPH/DIAG INJ SC/IM CPT-4: 34240 09/23/2018 KETOROLAC TROMETHAMINE INJ CPT-4: J1885 09/23/2018 ROUTINE VENIPUNCTURE CPT-4: 43400 2018 ASSAY THYROID STIM HORMONE CPT-4: 18686 2018 COMPREHEN METABOLIC PANEL CPT-4: 28829 2018 COMPLETE CBC W/AUTO DIFF WBC CPT-4: 89184 2018 LIPID PANEL CPT-4: 49368 2018 CEFTRIAXONE SODIUM INJECTION CPT-4: J0696 04/14/2018 THER/PROPH/DIAG INJ SC/IM CPT-4: 50356 04/14/2018 CEFTRIAXONE SODIUM INJECTION CPT-4: J0696 03/18/2018 THER/PROPH/DIAG INJ SC/IM CPT-4: 39555 03/18/2018 THER/PROPH/DIAG INJ SC/IM CPT-4: 65034 01/26/2018 KETOROLAC TROMETHAMINE INJ CPT-4: J1885 01/26/2018 CEFTRIAXONE SODIUM INJECTION CPT-4: J0696 12/22/2017 THER/PROPH/DIAG INJ SC/IM CPT-4: 57323 12/22/2017 ROUTINE VENIPUNCTURE CPT-4: 22066 11/14/2016 COMPLETE CBC W/AUTO DIFF WBC CPT-4: 35926 11/14/2016 PT/PTT CPT-4: 6040268 11/14/2016 Vital Signs Date Vital 08/18/2019 Blood Pressure 1: 134/83 Code: 8480-6 Heart Rate 1: 75 bpm Respiratory Rate: 16 bpm SpO2: 97% Temperature: 36.3 (C) / 97.3 (F) We ight: 176 lbs 07/05/2019 Blood Pressure 1: 122/66 Code: 8480-6 [...] 1: 134/82 Code: 8480-6 BMI: 23.9 Code: 98541-9 Heart Rate 1: 100 bpm Height: 6'4" [...] 1: 138/70 Code: 8480-6 BMI: 22.6 Code: 42578-6 Heart Rate 1: 97 bpm Height: 6'4" [...] 1: 142/80 Code: 8480-6 BMI: 20.9 Code: 78602-4 Heart Rate 1: 108 bpm Height: 6'4" Respiratory Rate: 20 bpm SpO2: 97% Tempera ture: 36.6 (C) / 97.9 (F) Weight: 172 lbs 01/26/2018 Blood Pressure 1: 130/82 Code: 8480-6 Heart Rate 1: 98 bpm Respiratory Rate: 18 bpm SpO2: 99% Temperature: 35.7 (C) / 96.3 (F) We ight: 175 lbs 12/22/2017 Blood Pressure 1: 124/68 Code: 8480-6 BMI: 22.3 Code: 65200-8 Heart Rate 1: 100 bpm Height: 6'4" Respiratory Rate: 20 bpm SpO2: 98% Tempera ture: 36.7 (C) / 98.0 (F) Weight: 183 lbs 10/06/2017 Blood Pressure 1: 130/86 Code: 8480-6 BMI: 21.1 Code: 03246-8 Heart Rate 1: 92 bpm Height: 6'4" Respiratory Rate: 18 bpm SpO2: 98% Tempera ture: 36.9 (C) / 98.5 (F) Weight: 173 lbs 02/03/2017 Blood Pressure 1: 144/92 Code: 8480-6 BMI: 20.8 Code: 15298-1 Heart Rate 1: 88 bpm Height: 6'4" Respiratory Rate: 20 bpm SpO2: 97% Tempera ture: 36.7 (C) / 98.1 (F) Weight: 171 lbs 11/25/2016 Blood Pressure 1: 126/84 Code: 8480-6 Heart Rate 1: 76 bpm Respiratory Rate: 20 bpm SpO2: 96% Temperature: 36.9 (C) / 98.4 (F) We ight: 170 lbs 11/14/2016 Blood Pressure 1: 126/82 Code: 8480-6 BMI: 20.7 Code: 40207-5 Heart Rate 1: 86 bpm Height: 6'4" Respiratory Rate: 18 bpm SpO2: 96% Tempera ture: 35.8 (C) / 96.5 (F) Weight: 170 lbs 04/02/2016 Blood Pressure 1: 124/78 Code: 8480-6 Heart Rate 1: 88 bpm Respiratory Rate: 24 bpm SpO2: 97% Temperature: 36.1 (C) / 97.0 (F) We ight: 161 lbs 11/29/2015 Blood Pressure 1: 124/68 Code: 8480-6 BMI: 19.2 Code: 16889-5 Heart Rate 1: 94 bpm Height: 6'4" Respiratory Rate: 18 bpm SpO2: 97% Tempera ture: 36.1 (C) / 97.0 (F) Weight: 158 lbs 06/27/2015 Blood Pressure 1: 128/78 Code: 8480-6 BMI: 18.7 Code: 49700-4 Heart Rate 1: 72 bpm Height: 6'4" Respiratory Rate: 22 bpm SpO2: 98% Tempera ture: 35.9 (C) / 96.6 (F) Weight: 154 lbs 05/24/2015 Blood Pressure 1: 112/78 Code: 8480-6 BMI: 19.7 Code: 33758-3 Heart Rate 1: 78 bpm Height: 6'4" Respiratory Rate: 24 bpm SpO2: 97% Tempera ture: 36.4 (C) / 97.6 (F) Weight: 162 lbs Functional Status No Functional Status data Reason For Visit Reason For Visit Effective Dates Notes sores 08/18/2019 follow up 07/05/2019 follow up 05/17/2019 follow [...] care Encounters Encounter Performer Location Codes Date ([id number]) OFFICE/OUTPATIENT VISIT EST Diagnosis: DM w/o complication type II, uncontrolled[ICD10: E11.65] Diagnosis: Cellulitis of right foot[ICD10: L03.115] Janneth WARD Envia [facility] CPT-4: 32399 08/18/2019 ([id number]) OFFICE/OUTPATIENT VISIT EST Diagnosis: Other specified local infections of the skin and subcutaneous tissue[ICD10: L08.89] Diagnosis: DM w/o complication type II, uncontrolled[ICD10: E11.65] Diagnosis: Right leg DVT[ICD10: I82.401] Janneth WARD [facility] CPT-4: 62140 07/05/2019 ([id number]) OFFICE/OUTPATIENT VISIT EST Diagnosis: 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, implant, or graft[ICD10: T85.818A] Diagnosis: DM w/o complication type II, uncontrolled[ICD10: E11.65] Janneth WARD Envia [facility] CPT-4: 29634 05/17/2019 ([id number]) OFFICE/OUTPATIENT VISIT EST Diagnosis: Acute dermatitis[ICD10: L30.9] Diagnosis: DM w/o complication type II, uncontrolled[ICD10: E11.65] Diagnosis: Right leg DVT[ICD10: I82.401] Janneth WARD [facility] CPT-4: 83640 05/02/2019 ([id number]) OFFICE/OUTPATIENT VISIT EST Diagnosis: DM w/o complication type II, uncontrolled[ICD10: E11.65] Diagnosis: Allergic dermatitis[ICD10: L23.9] Diagnosis: Right leg DVT[ICD10: I82.401] Diagnosis: Paroxysmal atrial fibrillation[ICD10: I48.0] Diagnosis: Right calf pain[ICD10: M79.661] Janneth SHRESTHA [facility] CPT-4: 10363 04/25/2019 ([id number]) OFFICE/OUTPATIENT VISIT EST Diagnosis: DM w/o complication type II, uncontrolled[ICD10: E11.65] Diagnosis: 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, implant, or graft[ICD10: T85.818A] Diagnosis: Essential hypertension[ICD10: I10] Janneth NORWOODDYLANGINNY SHRESTHA [facility] CPT-4: 13050 04/11/2019 ([id number]) OFFICE/OUTPATIENT VISIT EST Diagnosis: Sinus tachycardia[ICD10: R00.0] Diagnosis: Folliculitis[ICD10: L73.9] [facility] 11355 03/01/2019 ([id number]) OFFICE/OUTPATIENT VISIT EST Diagnosis: Cellulitis of left lower limb[ICD10: L03.116] Diagnosis: Tendinitis of left peroneus longus tendon[ICD10: M76.72] Janneth SHRESTHA [facility] CPT-4: 07580 11/18/2018 ([id number]) OFFICE/OUTPATIENT VISIT EST Diagnosis: Cellulitis of left foot[ICD10: L03.116] Diagnosis: Spontaneous ecchymoses[ICD10: R23.3] Diagnosis: Venous insufficiency (chronic) (peripheral)[ICD10: I87.2] Diagnosis: Mixed hyperlipidemia[ICD10: E78.2] Vania Cohenshahram WEINER FLOR SHRESTHA [facility] CPT-4: 58478 11/09/2018 ([id number]) OFFICE/OUTPATIENT VISIT EST Diagnosis: Venous insufficiency (chronic) (peripheral)[ICD10: I87.2] Diagnosis: Cellulitis of left lower limb[ICD10: L03.116] Diagnosis: Pain in right foot[ICD10: M79.671] Vania Gironmary [facility] 07816 10/13/2018 ([id number]) OFFICE/OUTPATIENT VISIT EST Diagnosis: Low back pain[ICD10: M54.5] Vania [facility] CPT-4: 62146 09/23/2018 ([id number]) OFFICE/OUTPATIENT VISIT EST Diagnosis: Gastro-esophageal reflux disease without esophagitis[ICD10: K21.9] Diagnosis: Dysphagia, pharyngoesophageal phase[ICD10: R13.14] [facility]: 75996 09/06/2018 ([id number]) OFFICE/OUTPATIENT VISIT EST Diagnosis: Tinea corporis[ICD10: B35.4] Vania SHRESTHA [facility] CPT-4: 56970 07/15/2018 ([id number]) OFFICE/OUTPATIENT VISIT EST Diagnosis: Cellulitis of left toe[ICD10: L03.032] Diagnosis: Mixed hyperlipidemia[ICD10: E78.2] Mandy [facility] CPT[facility]: 48210 2018 OFFICE/OUTPATIENT VISIT EST Diagnosis: Cellulitis of left toe[ICD10: L03.032] Diagnosis: Unspecified disturbances of skin sensation[ICD10: R20.9] [facility] C[facility]: 86456 04/14/2018 ([id number]) OFFICE/OUTPATIENT VISIT EST Diagnosis: Cellulitis of left toe[ICD10: L03.032] Diagnosis: Insomnia, unspecified[ICD10: G47.00] Vania [facility] CPT-4: 86831 03/18/2018 ([id number]) OFFICE/OUTPATIENT VISIT EST Diagnosis: Other postprocedural complications and disorders of the circulatory system, not elsewhere classified[ICD10: I97.89] Diagnosis: Rash and other nonspecific skin eruption[ICD10: R21] Diagnosis: Pain in right leg[ICD10: M79.604] Vania [facility] CPT-4: 22345 01/26/2018 ([id number]) OFFICE/OUTPATIENT VISIT EST Diagnosis: Other postprocedural complications and disorders of the circulatory system, not elsewhere classified[ICD10: I97.89] Diagnosis: Cellulitis of right lower limb[ICD10: L03.115] Vania SHRESTHA DO [facility] CPT-4: 53011 12/22/2017 ([id number]) OFFICE/OUTPATIENT VISIT EST Diagnosis: Acute sinusitis, unspecified[ICD10: J01.90] Diagnosis: Unspecified disturbances of skin sensation[ICD10: R20.9] Vania SHRESTHA DO [facility] CPT-4: 16481 10/06/2017 ([id number]) OFFICE/OUTPATIENT VISIT EST Diagnosis: Primary insomnia[ICD10: F51.01] Diagnosis: Pain in left shoulder[ICD10: M25.512] Diagnosis: Poisoning by other parasympatholytics [anticholinergics and antimuscarinics] and spasmolytics, accidental (unintentional), sequela[ICD10: T44.3X1S] Janneth SHRESTHA Unruly [facility] CPT-4: 48392 02/03/2017 OFFICE/OUTPATIENT VISIT EST Diagnosis: Insomnia, unspecified[ICD10: G47.00] Diagnosis: Constipation, unspecified[ICD10: K59.00] Diagnosis: Spontaneous ecchymoses[ICD10: R23.3] Diagnosis: Pain in left foot[ICD10: M79.672] Vania SHRESTHA Unruly [facility] CPT-4: 22171 11/25/2016 OFFICE/OUTPATIENT VISIT EST Diagnosis: Insomnia, unspecified[ICD10: G47.00] Diagnosis: Constipation, unspecified[ICD10: K59.00] Diagnosis: Spontaneous ecchymoses[ICD10: R23.3] Diagnosis: Other specified local infections of the skin and subcutaneous tissue[ICD10: L08.89] Vania SHRESTHA DO [facility] CPT-4: 99 213 11/14/2016 ([id number]) OFFICE/OUTPATIENT VISIT EST Diagnosis: Acute upper respiratory infection, unspecified[ICD10: J06.9] Ester Grande JANNETH SHRESTHA [facility] CPT-4: 18377 04/02/2016 ([id number]) OFFICE/OUTPATIENT VISIT EST Diagnosis: Acute upper respiratory infection, unspecified[ICD10: J06.9] Ester SHRESTHA [email or web address] CPT-4: 06909 11/29/2015 ([id number]) OFFICE/OUTPATIENT VISIT EST Diagnosis: Pain in thoracic spine[ICD10: M54.6] Diagnosis: Paresthesia of skin[ICD10: R20.2] Diagnosis: Dysphagia, unspecified[ICD10: R13.10] Ester SHRESTHA [email or web address] CPT-4: 41125 06/27/2015 ([id number]) OFFICE/OUTPATIENT VISIT NEW Diagnosis: Pain in left leg[ICD10: M79.605] Diagnosis: Male erectile dysfunction, unspecified[ICD10: N52.9] Diagnosis: Dysphagia, unspecified[ICD10: R13.10] Ester SHRESTHA Unruly [facility] CPT-4: 97499 05/24/2015 Plan of Care Planned Activity Notes Codes Status Date Visit Diagnosis Plan: Puncture wound of right foot Dis cussion: Dry dressing 1 more week of levaquin Back to work August 21 ICD-9 : 892.0 ICD-10 : S91.331A 08/18/2019 Visit Diagnosis Plan: DM w/o complication type II, unc ontrolled Discussion: Lab drawn--HbA1C Accuchecks daily Continue current meds Check CMP and HbA1C in 3mos then fwup ICD-9 : 250.02 ICD-10 : E11.65 08/18/2019 Visit Diagnosis Plan: Cellulitis of right foot Discuss ion: 1 more week of levaquin Dry Dressing Back to work on August 21 ICD-9 : 682.7 ICD-10 : L03.115 08/18/2019 Appointment: [facility] [facility] [facility] 08/18/2019 Patient Education: Levaquin- [employer] Coupon [id number] https://www.Work in Field/samplemd/resources/getResource/61/68w9f29e-9v92-837o-tg Completed 08/18/2019 Appointment: Janneth Shrestha WPtel: [address] [place], [place] [address] [place] CANCELED 08/16/2019 Appointment: Janneth Shrestha WPtel: [address] [place], [place] [address] [place] CANCELED 07/21/2019 Visit Diagnosis Plan: Other specified lo gisel infections of the skin and subcutaneous tissue Discussion: Keflex and notify if worseni ng ICD-9 : 686.8 ICD-10 : L08.89 07/05/2019 Visit Diagnosis Plan: DM w/o complication type II, unc ontrolled Discussion: Will plan on lab and fwup end of July ICD-9 : 250.02 ICD-10 : E11.65 07/05/2019 Visit Diagnosis Plan: Right leg DVT Discussion: Releas e to work with no restrictions ICD-9 : 453.40 ICD-10 : I82.401 07/05/2019 Appointment: Janneth Shrestha WPtel: [address] [place], [place] [id number] [place] FOLLOW UP 07/05/2019 Patient Education: cephalexin- [employer] Coupon [id number] https://www.Work in Field/samplemd/resources/getResource/61/m1945c00-9497-5880-e3 Completed 07/05/2019 Visit Diagnosis Plan: 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, implan t, or graft Discussion: Patient has not been released to return to work by CV surgery yet but I am okay for return to work as soon as they release him ICD-9 : 996.70 ICD-10 : T85.818A 05/17/2019 Visit Diagnosis Plan: DM w/o complication type II, unc ontrolled Discussion: Increase metformin to 1000mg po BID Accuchecks BID Fwup 2mos with lab ICD-9 : 250.02 ICD-10 : E11.65 05/17/2019 Appointment: Janneth Shrestha WPtel: [address] [place], [place] [phone] [place] FOLLOW UP 05/17/2019 Patient Education: Metformin Patient Savings Message Alert Completed 05/17/2019 Visit Diagnosis Plan: Right leg DVT Discussion: Starts PTon Thursday ICD-9 : 453.40 ICD-10 : I82.401 05/02/2019 Visit Diagnosis Plan: DM w/o complication type II, unc ontrolled Discussion: Continue metformin and accuchecks--BS should come down after off steroids ICD-9 : 250.02 ICD-10 : E11.65 05/02/2019 Visit Diagnosis Plan: Acute dermatitis Discussion: Fin kalin prednisone then if rash worsens will need to consider allergic reaction to one of new meds llike Xarelto, amiodarone or metformin ICD-9 : 692.9 ICD-10 : L30.9 05/02/2019 Appointment: [facility]rest[facility]el[facility] [facility] [facility] 05/02/2019 Patient Education: metoprolol succinate- [employer] Co upon [id number] https://www.Work in Field/[employer]/resources/getResource/61/80911ef7-v6w6-397r-d6 Completed 05/02/2019 Visit Diagnosis Plan: DM w/o complication type II, unc ontrolled Discussion: Improving with increased dose of metformin ICD-9 : 250.02 ICD-10 : E11.65 04/25/2019 Visit Diagnosis Plan: Paroxysmal atrial fibrillation D iscussion: Now in NSR ICD-9 : 427.31 ICD-10 : I48.0 04/25/2019 Visit Diagnosis Plan: Right calf pain Discussion: Will likely need PT but sees surgery tomorrow ICD-9 : 729.5 ICD-10 : M79.661 04/25/2019 Visit Diagnosis Plan: Allergic dermatitis Discussion: Prednisone--warned of elevated BS ICD-9 : 692.9 ICD-10 : L23.9 04/25/2019 Visit Diagnosis Plan: Right leg DVT Discussion: S/P clarissa verduzco Sees Dr. Cortez tomorrow ICD-9 : 453.40 ICD-10 : I82.401 04/25/2019 Appointment: Janneth Shrestha [facility]el[facility] [address] [facility] [place] FOLLOW UP 04/25/2019 Patient Education: Metformin Patient Savings Message Alert Completed 04/25/2019 Patient Education: prednisone- [employer] Coupon [id number] https://www.Work in Field/[employer]/resources/getResource/61/7ed36pl0-u1tc-6x89-oi Completed 04/25/2019 Visit Diagnosis Plan: DM w/o [...] T85.818A 04/11/2019 Appointment: Janneth Shrestha WPtel: [address] [facility] ACUTE ILLNESS 04/11/2019 Patient Education: metoprolol succinate- [employer] Co upon [id number] https://www.Work in Field/[employer]/resources/getResource/61/pu110767-30ym-5r07-89 Completed 04/11/2019 Patient Education: Metformin Patient Savings Message Alert Completed 04/11/2019 Patient Education: cephalexin- [employer] Coupon [id number] https://www.Work in Field/[employer]/resources/getResource/61/1lzl5500-1i2t-4688-yg Completed 04/11/2019 Visit Diagnosis Plan: Folliculitis Discussion: Bactrim and topical bactroban ICD-9 : 704.8 ICD-10 : L73.9 03/01/2019 Visit Diagnosis Plan: Sinus tachycardia Discussion: St art low dose metoprolol ER 25mg daily Monitor pulse Sees Cardiology next month ICD-9 : 427.89 ICD-10 : R00.0 03/01/2019 Appointment: Janneth Shrestha WPtel: [address] [place], [place] [phone] [place] FOLLOW UP 03/01/2019 Patient Education: mupirocin- [employer] Coupon [id number] https://www.Work in Field/sampleGlassy Pro/resources/getResource/61/vk265jw7-96za-430e-ij Completed 03/01/2019 Appointment: Janneth Shrestha WPtel: [address] [place], [place] [phone] [place] CANCELED 12/20/2018 Visit Diagnosis Plan: Cellulitis [...] ICD-10 : M76.72 11/18/2018 Appointment: Vania García [address] [place] [address] [place] CANCELED 11/18/2018 Appointment: Janneth Shrestha WPtel: [address] [place], [place] [phone] [place] FOLLOW UP 11/18/2018 Patient Education: doxycycline monohydrate- [employer] Coupon [id number] https://www.Work in Field/samplemd/resources/getResource/61/xkm14521-x9c9-63e5-4i Completed 11/18/2018 Patient Education: prednisone- [employer] Coupon [id number] https://www.Work in Field/sampleGlassy Pro/resources/getResource/61/55uj4z7q-3br1-7058-la Completed 11/18/2018 Care Plan: Referral Order SNOMED-CT : 30 [id number] Pending 11/18/2018 Visit Diagnosis Plan: Venous insufficiency [...] [place]. discussed the risk [...] ICD-10 : R23.3 11/09/2018 Appointment: Vania García [address] [place], [place] [address] ACUTE ILLNESS 11/09/2018 Patient Education: clindamycin HCl- [employer] Coupon [id number] https://www.[employer].com/samplemd/resources/getResource/61/52fx21j3-gn61-6gv9-3x Completed 11/09/2018 Appointment: Janneth Shrestha WPtel: [address] [facility] [place] CANCELED 10/19/2018 Visit Diagnosis Plan: Pain [...] ICD-10 : L03.116 10/13/2018 Appointment: Vania García [address] [place], [place] [address] Patient cant pay copay till when he [...] ICD-10 : M54.5 09/23/2018 Appointment: Vania García [address] [place], [place] [address] ACUTE ILLNESS 09/23/2018 Patient Education: Medrol (Brenden)- [employer] Coupon [phone] https://www.Work in Field/[employer]/resources/getResource/61/tznr834s-6430-06o1-11 Completed 09/23/2018 Visit Diagnosis Plan: Gastro-esophageal reflux disease without esophagitis Discussion: Start omeprazole ICD-9 : 530.81 ICD-10 : K21.9 09/06/2018 Visit Diagnosis Plan: Dysphagia, pharyngoesophageal ph ase Discussion: Referral for EGD ICD-9 : 787.24 ICD-10 : R13.14 09/06/2018 Appointment: Janneth Shrestha WPtel: [address] [facility] [facility] ACUTE ILLNESS 09/06/2018 Patient Education: omeprazole- [employer] Coupon [phone] https://www.Work in Field/[employer] Solutions/resources/getResource/61/596tn480-06e6-011m-81 Completed 09/06/2018 Care Plan: Referral Order SNOMED-CT : 30 [id number] Pending 09/06/2018 Visit Diagnosis Plan: Tinea corporis Discussion: nysta tin to be used bid until rash gone and then an additional 2 days. diflucan every 3 days for 3 doses. keep area clean and dry with no moisturizers. call office if no improvement in 2 weeks or if worsening. ICD-9 : 110.5 ICD-10 : B35.4 07/15/2018 Appointment: Vania García [address] ACUTE ILLNESS 07/15/2018 Patient Education: nystatin- [employer] Coupon [id number] https://www.Work in Field/samplemd/resources/getResource/61/45mmr744-o3xu-24dj-8j Completed 07/15/2018 Patient Education: Plavix- [employer] Coupon [id number] https://www.Work in Field/sampleGlassy Pro/resources/getResource/61/67vv8g07-q36d-54ub-72 fa-l142o2870846.pdf Completed 07/15/2018 Patient Education: cyclobenzaprine- [employer] Coupon [id number] https://www.Work in Field/samplemd/resources/getResource/61/82820q3w-1l16-46f6-zf Completed 07/15/2018 Visit Diagnosis Plan: Cellulitis of [...] : L03.032 2018 Appointment: Mandy Hollins [address] FOLLOW UP 2018 Patient Education: mupirocin- [employer] Coupon [id number] https://www.Work in Field/samplemd/resources/getResource/61/g1fx67z2-0211-4801-1c Completed 2018 Visit Diagnosis Plan: Cellulitis of [...] : R20.9 04/14/2018 Appointment: Mandy Hollins [address] FOLLOW UP 04/14/2018 Visit Diagnosis Plan: [...] : G47.00 03/18/2018 Appointment: Vania García [address] ACUTE ILLNESS 03/18/2018 Patient Education: cyclobenzaprine- [employer] Coupon [id number] https://www.[employer].com/samplemd/resources/getResource/61/9341a849-3vx6-708w-j3 Completed 03/18/2018 Visit Diagnosis Plan: Other postprocedur al complications and disorders of the circulatory system, not elsewhere classified Discussion: discussed with dr. shrestha and patient was instructed to contact the [place] [facility] de[facility]. due to uncontrolled pain, continued erythema, patient needs to be re-evaluated by the surgeon. 60 mg toradol given to patient. patient verbalized understanding and voiced he will contact them today for an appointment. ICD-9 : 997.1 ICD-10 : I97.89 01/26/2018 Visit Diagnosis Plan: Rash and other nonspecific skin eruption Discussion: triamcinolone ordered to be used as directed. ICD-9 : 782.1 ICD-10 : R21 01/26/2018 Appointment: Vania García [address] [place], [place] [address] [place] [address] Follow Up 01/26/2018 Appointment: Janneth Shrestha WPtel: [address] [facility] [place] [address] NO SHOW 01/06/2018 Visit Diagnosis Plan: Other [...] : I97.89 12/22/2017 Appointment: Vania García [address] [facility] ACUTE ILLNESS 12/22/2017 Visit Diagnosis Plan: Unspecified [...] : J01.90 10/06/2017 Appointment: Vania García [address] [facility] ACUTE ILLNESS 10/06/2017 Patient Education: Patient Medication Summary Completed 10/06/2017 Appointment: Vania García [address] [facility] ER Follow UP 08/17/2017 Appointment: Vania García [address] [facility] [place] CANCELED 07/03/2017 Appointment: Janneth Shrestha WPtel: [address] [place] [address] [place] canceled at 8:05 this morning. 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 ICD-9 : 729.5 ICD-10 : M79.672 11/25/2016 Visit Diagnosis Plan: Insomnia, unspecified Recommenda tions: resolved with lunesta. continue taking as prescribed. ICD-9 : 780.52 ICD-10 : G47.00 11/25/2016 Appointment: [facility]ia García [address] [facility] [facility] 11/25/2016 Patient Education: Patient Medication [...] : K59.00 11/14/2016 Appointment: Vania García [address] [facility] 11/14/2016 Patient Education: Patient Medication Summary Completed 11/14/2016 Visit Diagnosis Plan: Acute upper respiratory infectio n, unspecified Discussion: Rxs as above Continue OTC and supportive meds Encouraged smoking cessation Follow up PRN ICD-9 : 465.9 ICD-10 : J06.9 04/02/2016 Appointment: Ester Grande [address] [facility] ACUTE ILLNESS 04/02/2016 Patient Education: Patient Medication Summary Completed 04/02/2016 Visit Plan: Rxs as above Supportive care reviewed Follow up PRN 11/29/2015 Appointment: Faith Grandey Florencio5 [facility]6676[facility] 11/27 confirmed~sl ACUTE ILLNESS 11/29/2015 Patient Education: [...] use for pain 06/27/2015 Appointment: Ester Grande Florencio5 [facility]6676[facility] 06/25 lm ~sl 06/26 phone not on~sl FOLLOW UP 06/27/2015 Patient Education: Patient Medication Summary Completed 06/27/2015 Care Plan: X-RAY EXAM RIBS UNI 2 VIEWS L OINC : 30825-8 Pending 06/27/2015 Referral: Héctor Woodard WPtel: [address] [facility] 05/29 Scheduled with sena ~ Appointment Re quested 06/26/2015 Referral: Cameron Khanna WPtel: [address] [facility] [place] Referral Initiated 06/11/2015 Referral: Marco Antonio Green WPtel: [address] [id number] [place] 05/30/15 Needs to be there at pre op time per ~sl Initiated 06/04/2015 Visit Plan: Will get all necessary refer rals set up - CTS, Uro and G/S Swallow study and routine labs ordered Will further investigate left leg pain with EMG if not cardio related 05/24/2015 Appointment: Harjinder Ester [address] [facility]6[address] NEW PATIENT 05/24/2015 Patient Education: Patient Medication Summary Completed 05/24/2015 Care Plan: Referral Order SNOMED-CT : 30 [id number] Pending 05/24/2015 Care Plan: Referral Order SNOMED-CT : 30 [id number] Pending 05/24/2015 Care Plan: Referral Order SNOMED-CT : 30 [id number] Pending 05/24/2015 Referral: Sudheer Gann WPtel: [address] [place] [address] [place] Referral Appointment Requested Referral: Alfonzo Andujar WPtel: [address] [place] [address] [place] Referral Initiated Referral: [facility] [address] [id number] [place] Referral Completed Referral: Cameron Khanna WPtel: [address] [place] [address] [place] Referral Appointment Requested Referral: Brianna Rose WPtel: [address] [place] [address] [place] Referral Initiated Referral: Héctor Woodard WPtel: [address] 05/24/15 [facility] office suggested he see another card. ~sl Initiated Referral: Alfonzo Andujar WPtel: [address] [place] [address] [place] Referral Appointment Requested Referral: Marco Antonio Green WPtel: [address] [id number] [place] Referral Appointment Requested Instructions Comment . [...]
--- OUTSIDE RECORDS SUMMARY | 2019-09-02 12:11 | XMS REPORT | CCD ---
Author Author [place] Organization JANNETH SHRESTHA DO [facility] Address [address] [place] [address] Phone Unavailable Care Team Providers Care Online Communications Manager Name Role Phone Janneth Shrestha D.O., PP Unavailable CCM Unavailable Summary Purpose Interface Exchange Insurance Providers Payer name Policy type / Coverage type Covered republican ID Effective Begin Date Effective End Date Blue Cross Blue Shield Blue Cross/Blue Shield [id number] Unknown Family History Family History data not found Social History Social History Element Codes Description Effective Dates Marital status Unknown 05/24/2015 Number of children Unknown 2 05/24/2015 Employment Unknown Currently employed 05/24/[address]: [id number] 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 [...] Fill Instructions Levaquin 500 mg tablet RxNorm: 551015 1 Tablet(s) Oral QD 08/18/2019 08/25/2019 Active metoprolol succinate ER 50 mg tablet,extended release 24 hr RxNorm: 092797 1 Tablet(s) Oral QD 08/01/2019 08/18/2019 Inactive cyclobenzaprine 10 mg tablet RxNorm: 621974 TAKE ONE TA BLET BY MOUTH AT BEDTIME NEEDED 07/12/2019 No Stop Date Active cephalexin 500 mg tablet RxNorm: 059738 1 Tablet(s) Oral three times a day 07/05/2019 07/12/2019 Inactive cyclobenzaprine 10 mg tablet RxNorm: 532153 TAKE ONE TA BLET BY MOUTH AT BEDTIME NEEDED 05/20/2019 07/11/2019 Inactive metformin ER 1,000 mg tablet,extended release 24hr RxNorm: 1 711943 1 Tablet(s) Oral two times a day replaces 500mg dose 05/17/2019 11/13/2019 Active [AttnRPh: Saving apply/adjudicate RxGRP:[id number] RxBIN:[id number] RxPCN: ID#:[id number]] ReliOn Prime Test Strips RxNorm: 1 Unit [...] 05/01/2019 Inactive Plavix 75 mg tablet RxNorm: 381035 TAKE ONE TABLET BY MOUTH DAILY 0 04/25/2019 04/26/2019 Inactive Plavix 75 mg tablet RxNorm: 565004 TAKE ONE TABLET BY MOUTH DAILY 0 04/25/2019 04/24/2019 Inactive Xarelto 20 mg tablet RxNorm: 1270016 1 Tablet(s) Oral QD 04/25/2019 0 07/04/2019 Inactive amiodarone 200 mg tablet RxNorm: 882401 1 Tablet(s) Oral QD 020 07/04/2019 Inactive metformin ER 500 mg 24 hr tablet,extended release RxNorm: 18 76070 1 Tablet(s) Oral two times a day 04/25/2019 05/16/2019 Inactive prednisone 20 mg tablet RxNorm: 986019 1 Tablet(s) Oral two jn es a day 04/25/2019 05/01/2019 Inactive aspirin 81 mg tablet,delayed release RxNorm: 272429 1 Tablet(s) Oral QD 04/11/2019 No Stop Date Active pantoprazole 40 mg tablet,delayed release RxNorm: 382318 1 Tabl et(s) Oral QAM 04/11/2019 08/18/2019 Inactive Vitamin C 1,000 mg tablet RxNorm: 203745 1 Tablet(s) Oral QD 201908/18/2019 Inactive Xarelto 15 mg tablet RxNorm: 1502335 1 Tablet(s) Oral QD 04/11/2019 0 04/24/2019 Inactive metformin ER 500 mg 24 hr tablet,extended release RxNorm: 18 53089 1 Tablet(s) Oral QD 04/11/2019 04/24/2019 Inactive cephalexin 500 mg capsule RxNorm: 478599 1 Capsule(s) Oral thre e times a day 04/11/2019 04/18/2019 Inactive metoprolol succinate ER 50 mg tablet,extended release 24 hr RxNorm: 753155 1 Tablet(s) Oral QD replaces 25mg dose 04/11/2019 05/01/2019 Inactive cyclobenzaprine 10 mg tablet RxNorm: 348455 TAKE ONE TA BLET BY MOUTH EVERY NIGHT AT BEDTIME NEEDED 03/11/2019 No Stop Date Active mupirocin 2 % topical ointment RxNorm: 793910 Applicati on Topical two times a day 03/01/2019 04/10/2019 Inactive metoprolol succinate ER 25 mg tablet,extended release 24 hr RxNorm: 482223 1 Tablet(s) Oral QD 03/01/2019 04/24/2019 Inactive Bactrim DS 800 mg-160 mg tablet RxNorm: 486914 1 Tablet(s) Oral two times a day 03/01/2019 03/11/2019 Inactive cyclobenzaprine 10 mg tablet RxNorm: 955002 TAKE ONE TA BLET BY MOUTH EVERY NIGHT AT BEDTIME NEEDED 01/10/2019 03/10/2019 Inactive Plavix 75 mg tablet RxNorm: 327117 TAKE ONE TABLET BY MOUTH DAILY 1 03/12/2018 04/24/2019 Inactive omeprazole 40 mg capsule,delayed release RxNorm: 815376 TAKE ONE CAPSULE BY MOUTH EVERY NIGHT AT BEDTIME FOR REFLUX 01/10/2019 05/16/2019 Inactive tramadol 50 mg tablet RxNorm: 788678 1 Tablet(s) Oral f our times a day as needed 01/03/2019 01/03/2019 Inactive doxycycline monohydrate 100 mg capsule RxNorm: 8995880 1 Capsule(s) Oral two times a day 11/22/2018 12/13/2018 Inactive prednisone 20 mg tablet RxNorm: 359312 1 Tablet(s) Oral two jn es a day 11/22/2018 11/29/2018 Inactive Levaquin 750 mg tablet RxNorm: 241123 Tablet(s) Oral 11/18/201802/28 Inactive prednisone 20 mg tablet RxNorm: 767214 1 Tablet(s) Oral two jn es a day 11/18/2018 11/21/2018 Inactive tramadol 50 mg tablet RxNorm: 514141 Tablet(s) Oral 11/18/20182018 Inactive doxycycline monohydrate 100 mg capsule RxNorm: 5718425 1 Capsule(s) Oral two times a day 11/18/2018 11/21/2018 Inactive Plavix 75 mg tablet RxNorm: 729755 TAKE ONE TABLET BY MOUTH DAILY 0 11/10/2018 01/08/2019 Inactive clindamycin HCl 300 mg capsule RxNorm: 768872 1 Capsule (s) Oral three times a day 11/09/2018 11/19/2018 Inactive Keflex 500 mg capsule RxNorm: 275031 1 Capsule(s) PO BID 10/13/2018 0 10/22/2018 Inactive Medrol (Brenden) 4 mg tablets in a dose pack RxNorm: 134659 Tablet(s) take as directed PO 09/23/2018 10/12/2018 Inactive omeprazole 40 mg capsule,delayed release RxNorm: 132061 1 Capsule(s) PO QHS for reflux 09/06/2018 11/04/2018 Inactive Diflucan 150 mg tablet RxNorm: 334373 1 Tablet(s) PO Q72H 07/15/2018 09/05/2018 Inactive cyclobenzaprine 10 mg tablet RxNorm: 897087 1 Tablet(s) PO QHS as needed 07/15/2018 10/12/2018 Inactive nystatin 100,000 unit/gram topical cream RxNorm: 996915 1 Gram( s) TOP BID 07/15/2018 09/05/2018 Inactive Plavix 75 mg tablet RxNorm: 660506 1 Tablet(s) PO QD 07/15/201810/12 Inactive cyclobenzaprine 10 mg tablet RxNorm: 058925 1 Tablet(s) PO QHS as needed 06/10/2018 06/09/2018 Inactive cyclobenzaprine 10 mg tablet RxNorm: 351980 TAKE ONE TA BLET BY MOUTH EVERY NIGHT AT BEDTIME NEEDED 05/10/2018 06/10/2018 Inactive mupirocin 2 % topical ointment RxNorm: 740831 1 Application TOP BID 2018 05/25/2018 Inactive 22 gram cyclobenzaprine 10 mg tablet RxNorm: 576699 1 Tablet(s) PO QHS as needed 04/14/2018 06/09/2018 Inactive doxycycline hyclate 100 mg tablet RxNorm: 3031502 1 Tablet(s) PO BI D 04/14/2018 04/23/2018 Inactive cyclobenzaprine 10 mg tablet RxNorm: 649908 1 Tablet(s) PO QHS as needed 04/07/2018 04/13/2018 Inactive Bactrim DS 800 mg-160 mg tablet RxNorm: 007931 1 Tablet(s) PO BID 0 03/18/2018 03/27/2018 Inactive cyclobenzaprine 10 mg tablet RxNorm: 566863 1 Tablet(s) PO QHS as needed 03/18/2018 04/06/2018 Inactive triamcinolone acetonide 0.1 % topical cream RxNorm: 2624235 APPLY TO AFFECTED AREA(S) TWO TIMES A DAY 02/03/2018 02/12/2018 Inactive triamcinolone acetonide 0.1 % topical cream RxNorm: 2526882 1 Application TOP BID 01/26/2018 02/02/2018 Inactive Medrol (Brenden) 4 mg tablets in a dose pack RxNorm: 221576 TAKE BY MOUTH INSTRUCTED - PER PACKAGE INSTRUCTIONS 12/11/2017 12/16/2017 Inactive Medrol (Brenden) 4 mg tablets in a dose pack RxNorm: 894110 Tablet(s) P O 10/06/2017 12/10/2017 Inactive Lunesta 3 mg tablet RxNorm: 313276 1 Tablet(s) PO QHS 11/25/201608/2016 Inactive Lunesta 3 mg tablet RxNorm: 402722 1 Tablet(s) PO QHS 11/14/201610/2016 Inactive Bactrim DS 800 mg-160 mg tablet RxNorm: 228660 1 Tablet(s) PO BID 0 11/14/2016 11/23/2016 Inactive Epi E-Z Pen 0.3 mg/0.3 mL injection, auto-injector RxNorm: 1 476940 Milliliter(s) IM Use as Directed 06/25/2016 09/05/2018 Inactive amoxicillin 875 mg tablet RxNorm: 221701 1 Tablet(s) PO BID 017 04/11/2016 Inactive prednisone 20 mg tablet RxNorm: 951610 1 Tablet(s) PO BID 04/02/2016 04/06/2016 Inactive azithromycin 250 mg tablet RxNorm: 746714 2 Tablet(s) P O on day one then 1 tab on days 2-5 11/29/2015 11/28/2015 Inactive Medrol (Brenden) 4 mg tablets in a dose pack RxNorm: 919848 Take as directed 11/29/2015 11/13/2016 Inactive meloxicam 15 mg tablet RxNorm: 575022 1 Tablet(s) PO QD 07/02/2015 Inactive Chantix Starting Month Box 0.5 mg (11)-1 mg (42) table ts in dose pack RxNorm: 547495 Tablet(s) PO As Directed 06/20/2015 07/10/2015 Inactive omeprazole 40 mg capsule,delayed release RxNorm: 095091 1 Capsu le(s) PO QD 05/31/2015 11/13/2016 Inactive omeprazole 40 mg capsule,delayed release RxNorm: 787857 1 Capsu le(s) PO QD 05/31/2015 05/30/2015 Inactive Multivitamin And Mineral oral RxNorm: oral No Start Date Active Wellbutrin SR 150 mg tablet,sustained-release RxNorm: 605147 1 Tablet(s) PO BID No Start Date 11/13/2016 Inactive gabapentin 100 mg capsule RxNorm: 478126 1 Capsule(s) PO TID No Sta rt Date 03/17/2018 Inactive Chantix Starting Month Box 0.5 mg (11)-1 mg (42) table ts in dose pack RxNorm: 826027 Tablet(s) PO As Directed No Start Date 06/19/2015 Inactive Eliquis 5 mg tablet RxNorm: 2515252 1 Tablet(s) PO BID No Start Date 03/17/2018 Inactive Lactobacillus acidophilus-Bifidobacterium longum oral RxNorm: oral No Start Date 07/04/2019 Inactive aspirin 325 mg tablet RxNorm: 670495 1 Tablet(s) PO QD No Start Date 11/13/2016 Inactive clindamycin HCl 300 mg capsule RxNorm: 645988 2 Capsule(s) PO Q8H N o Start Date 03/17/2018 Inactive Fish Oil 1,000 mg (120 mg-180 mg) capsule RxNorm: 1 Caps ule(s) PO QD No Start Date 09/05/2018 Inactive aspirin 81 mg tablet RxNorm: 522879 1 Tablet(s) PO QD No Start Date 1 03/28/2017 Inactive Fish Oil 1,000 mg capsule RxNorm: 1 Capsule(s) PO QD No Start Date 11/13/2016 Inactive Baby Aspirin 81 mg chewable tablet RxNorm: 234435 1 Tablet(s) P O BID No Start Date 02/02/2017 Inactive Xarelto 10 mg tablet RxNorm: 1352866 1 Tablet(s) PO QD No Start Date 01/25/2018 Inactive tramadol 50 mg tablet RxNorm: 518228 1-2 Tablet(s) PO Q6H No Start Date 03/17/2018 Inactive meloxicam 15 mg tablet RxNorm: 944889 1 Tablet(s) PO QD No Start Da te 07/01/2015 Inactive Epi E-Z Pen 0.3 mg/0.3 mL injection, auto-injector RxNorm: 1 664629 Milliliter(s) IM Use as Directed No Start Date 06/24/2016 Inactive Plavix 75 mg tablet RxNorm: 896737 1 Tablet(s) PO QD No Start Date Inactive Medication Administered No Medication Administered data Immunizations No Immunization data Results Observation Observation Code Item Item Code Result Date S ervice Location COMPREHENSIVE METABOLIC 86609 AST 25 U/L 2018 Unknown COMPREHENSIVE METABOLIC 09417 ALT 28 U/L 2018 Unknown COMPREHENSIVE METABOLIC 14308 BUN 13 mg/dL 2018 Unknown COMPREHENSIVE METABOLIC 84251 ALBUMIN 4.2 g/dL 2018 Unknown COMPREHENSIVE METABOLIC 88627 CHLORIDE 104 mmol/L 11/09 Unknown COMPREHENSIVE METABOLIC 20012 Bili Total 0.5 mg/dL 11/09 Unknown COMPREHENSIVE METABOLIC 97192 ALK PHOS 72 U/L 2018 Unknown COMPREHENSIVE METABOLIC 96376 SODIUM 139 mmol/L 11/09 Unknown COMPREHENSIVE METABOLIC 75113 CREATININE 0.98 mg/dL 10/18 Unknown COMPREHENSIVE METABOLIC 53326 CALCIUM 9.1 mg/dL 2018 Unknown COMPREHENSIVE METABOLIC 45673 POTASSIUM 3.7 mmol/L 11/09 Unknown COMPREHENSIVE METABOLIC 24124 Total Protein 7.2 g/dL Unknown COMPREHENSIVE METABOLIC 07940 Glucose 137 mg/dL 2018 Unknown COMPREHENSIVE METABOLIC 85833 Bicarbonate 24 mmol/L 10/18 Unknown COMPREHENSIVE METABOLIC 28508 AGAP 11 mmol/L 2018 Unknown COMPLETE BLOOD COUNT 8451134 WBC 4.6 10e9/L 11/10/19 19 Unknown COMPLETE BLOOD COUNT [id number] RBC 4.88 10e12/L 2018 Unknown COMPLETE BLOOD COUNT [id number] HEMOGLOBIN 14.7 g/dL 11/10/19 19 Unknown COMPLETE BLOOD COUNT [id number] HEMATOCRIT 43.7 % 11/10/19 19 Unknown COMPLETE BLOOD COUNT [id number] MCV 89.5 fL 9 Unknown COMPLETE BLOOD COUNT 2855505 MCH 30.1 pg 9 Unknown COMPLETE BLOOD COUNT [id number] MCHC 33.6 g/dL 9 Unknown COMPLETE BLOOD COUNT [id number] PLATELET COUNT 179 10e9/L Unknown COMPLETE BLOOD COUNT [id number] Mean Plt Volume 11.6 fL Unknown COMPLETE BLOOD COUNT 9997155 Neut Auto 55.5 % 9 Unknown COMPLETE BLOOD COUNT [id number] Lymph Auto 28.7 % 11/10/19 19 Unknown COMPLETE BLOOD COUNT [id number] Wake Auto 7.9 % 9 Unknown COMPLETE BLOOD COUNT 5159851 RDW 13.2 % 9 Unknown COMPLETE BLOOD COUNT [id number] Eos Auto 7.7 % 9 Unknown COMPLETE BLOOD COUNT [id number] Baso Auto 0.2 % 9 Unknown COMPLETE BLOOD COUNT [id number] Neutrophil Abs 2.55 10e9/L Unknown COMPLETE BLOOD COUNT [id number] Lymphocyte Abs 1.32 10e9/L Unknown COMPLETE BLOOD COUNT [id number] Monocyte Abs 0.36 10e9/L 10/18 Unknown COMPLETE BLOOD COUNT [id number] Eosinophil Abs 0.35 10e9/L Unknown COMPLETE BLOOD COUNT [id number] RDW-SD 42.2 fL 9 Unknown COMPLETE BLOOD COUNT [id number] Basophil Abs 0.01 10e9/L 10/18 Unknown LIP[facility] GROUP 79823 Cholesterol 205 mg/dL 11/09/2018 Unkno wn LIPID GROUP 25931 Triglyceride 268 mg/dL 11/09/2018 Unkn own LIPID GROUP 72841 HDL CHOLESTEROL 35 mg/dL 11/09/2018 U nknown LIPID GROUP 59382 Chol/HDL Ratio 5.86 ratio 11/09/2018 U nknown LIPID GROUP 55462 NON-HDL Chol 170 mg/dL 11/09/2018 Unkn own LIPID GROUP 57355 LDL Cholesterol 116 mg/dL 11/09/2018 U nknown PT 0137858 PT 12.7 Seconds 11/09/2018 Unknow n PT 2407249 INR 0.9 11/09/2018 Unknown GFR CALC 2040842 GFR Non Afr Amr >60 mL/min 11/09/2018 Un known GFR CALC 5447478 GFR Afr Amr >60 mL/min 11/09/2018 Unknow n ACT PARTIAL THRMBOPLASTIN TIME 41416 PTT 34.0 Seco nds 11/09/2018 Unknown LIPID GROUP 59923 Cholesterol 186 mg/dL 2018 Unkno wn LIPID GROUP 45598 Triglyceride 229 mg/dL 2018 Unkn own LIPID GROUP 84045 HDL CHOLESTEROL 36 mg/dL 2018 U nknown LIPID GROUP 09940 Chol/HDL Ratio 5.17 ratio 2018 U nknown LIPID GROUP 75113 NON-HDL Chol 150 mg/dL 2018 Unkn own LIPID GROUP 49788 LDL Cholesterol 104 mg/dL 2018 U nknown GFR CALC 1681744 GFR Non Afr Amr >60 mL/min 2018 Un known GFR CALC 8395347 GFR Afr Amr >60 mL/min 2018 Unknow n COMPREHENSIVE METABOLIC 54481 AST 23 U/L 2018 Unknown COMPREHENSIVE METABOLIC 79658 ALT 22 U/L 2018 Unknown COMPREHENSIVE METABOLIC 59249 BUN 15 mg/dL 2018 Unknown COMPREHENSIVE METABOLIC 39410 ALBUMIN 4.1 g/dL 2018 Unknown COMPREHENSIVE METABOLIC 15803 CHLORIDE 106 mmol/L 05/06 Unknown COMPREHENSIVE METABOLIC 58776 Bili Total 0.6 mg/dL 05/06 Unknown COMPREHENSIVE METABOLIC 20637 ALK PHOS 61 U/L 2018 Unknown COMPREHENSIVE METABOLIC 72309 SODIUM 141 mmol/L 05/06 Unknown COMPREHENSIVE METABOLIC 96497 CREATININE 0.91 mg/dL 04/17 Unknown COMPREHENSIVE METABOLIC 79323 CALCIUM 9.2 mg/dL 2018 Unknown COMPREHENSIVE METABOLIC 61967 POTASSIUM 3.8 mmol/L 05/06 Unknown COMPREHENSIVE METABOLIC 74521 Total Protein 7.0 g/dL Unknown COMPREHENSIVE METABOLIC 11499 Glucose 97 mg/dL 2018 Unknown COMPREHENSIVE METABOLIC 14166 Bicarbonate 28 mmol/L 04/17 Unknown COMPREHENSIVE METABOLIC 09410 AGAP 7 mmol/L 2018 Unknown THYROID STIMULATING HORMONE 88939 TSH 2.094 uIU/mL 2018 Unknown COMPLETE BLOOD COUNT 8900755 WBC 5.5 10e9/L 05/07/19 19 Unknown COMPLETE BLOOD COUNT [id number] RBC 4.61 10e12/L 2018 Unknown COMPLETE BLOOD COUNT 8624383 HEMOGLOBIN 13.6 g/dL 05/07/19 19 Unknown COMPLETE BLOOD COUNT 4193723 HEMATOCRIT 40.0 % 05/07/19 19 Unknown COMPLETE BLOOD COUNT 3669735 MCV 86.8 fL 9 Unknown COMPLETE BLOOD COUNT 4282859 MCH 29.5 pg 9 Unknown COMPLETE BLOOD COUNT 1022118 MCHC 34.0 g/dL 9 Unknown COMPLETE BLOOD COUNT 4017937 PLATELET COUNT 197 10e9/L Unknown COMPLETE BLOOD COUNT 8958433 Mean Plt Volume 10.8 fL Unknown COMPLETE BLOOD COUNT 5379184 Neut Auto 49.6 % 9 Unknown COMPLETE BLOOD COUNT [id number] Lymph Auto 36.8 % 05/07/19 19 Unknown COMPLETE BLOOD COUNT [id number] Wake Auto 8.1 % 9 Unknown COMPLETE BLOOD COUNT 7515815 RDW 15.3 % 9 Unknown COMPLETE BLOOD COUNT 4150247 Eos Auto 5.3 % 9 Unknown COMPLETE BLOOD COUNT 6578515 Baso Auto 0.2 % 9 Unknown COMPLETE BLOOD COUNT 5285296 Neutrophil Abs 2.73 10e9/L Unknown COMPLETE BLOOD COUNT 3664588 Lymphocyte Abs 2.02 10e9/L Unknown COMPLETE BLOOD COUNT 7149687 Monocyte Abs 0.45 10e9/L 04/17 Unknown COMPLETE BLOOD COUNT 1462106 Eosinophil Abs 0.29 10e9/L Unknown COMPLETE BLOOD COUNT [id number] RDW-SD 47.9 fL 9 Unknown COMPLETE BLOOD COUNT [id number] Basophil Abs 0.01 10e9/L 04/17 Unknown Procedures Procedure Codes Date ROUTINE VENIPUNCTURE CPT-4: 22414 08/18/2019 A1C HPLC CPT-4: 29985 08/18/2019 CEFTRIAXONE SODIUM INJECTION CPT-4: J0696 11/09/2018 THER/PROPH/DIAG INJ SC/IM CPT-4: 09414 11/09/2018 ROUTINE VENIPUNCTURE CPT-4: 50752 11/09/2018 COMPREHEN METABOLIC PANEL CPT-4: 11273 11/09/2018 COMPLETE CBC W/AUTO DIFF WBC CPT-4: 30141 11/09/2018 LIPID PANEL CPT-4: 74645 11/09/2018 PROTHROMBIN TIME CPT-4: 70771 11/09/2018 THROMBOPLASTIN TIME PARTIAL CPT-4: 76986 11/09/2018 THER/PROPH/DIAG INJ SC/IM CPT-4: 79812 09/23/2018 KETOROLAC TROMETHAMINE INJ CPT-4: J1885 09/23/2018 ROUTINE VENIPUNCTURE CPT-4: 51505 2018 ASSAY THYROID STIM HORMONE CPT-4: 03133 2018 COMPREHEN METABOLIC PANEL CPT-4: 12012 2018 COMPLETE CBC W/AUTO DIFF WBC CPT-4: 30823 2018 LIPID PANEL CPT-4: 67463 2018 CEFTRIAXONE SODIUM INJECTION CPT-4: J0696 04/14/2018 THER/PROPH/DIAG INJ SC/IM CPT-4: 50638 04/14/2018 CEFTRIAXONE SODIUM INJECTION CPT-4: J0696 03/18/2018 THER/PROPH/DIAG INJ SC/IM CPT-4: 53306 03/18/2018 THER/PROPH/DIAG INJ SC/IM CPT-4: 95214 01/26/2018 KETOROLAC TROMETHAMINE INJ CPT-4: J1885 01/26/2018 CEFTRIAXONE SODIUM INJECTION CPT-4: J0696 12/22/2017 THER/PROPH/DIAG INJ SC/IM CPT-4: 48526 12/22/2017 ROUTINE VENIPUNCTURE CPT-4: 20673 11/14/2016 COMPLETE CBC W/AUTO DIFF WBC CPT-4: 99171 11/14/2016 PT/PTT CPT-4: 8160794 11/14/2016 Vital Signs Date Vital 08/18/2019 Blood [...] 1: 134/82 Code: 8480-6 BMI: 23.9 Code: 55582-4 Heart Rate 1: 100 bpm Height: 6'4" [...] 1: 138/70 Code: 8480-6 BMI: 22.6 Code: 41341-5 Heart Rate 1: 97 bpm Height: 6'4" [...] 1: 142/80 Code: 8480-6 BMI: 20.9 Code: 07053-7 Heart Rate 1: 108 bpm Height: 6'4" Respiratory Rate: 20 bpm SpO2: 97% Tempera ture: 36.6 (C) / 97.9 (F) Weight: 172 lbs 01/26/2018 Blood Pressure 1: 130/82 Code: 8480-6 Heart Rate 1: 98 bpm Respiratory Rate: 18 bpm SpO2: 99% Temperature: 35.7 (C) / 96.3 (F) We ight: 175 lbs 12/22/2017 Blood Pressure 1: 124/68 Code: 8480-6 BMI: 22.3 Code: 30099-9 Heart Rate 1: 100 bpm Height: 6'4" Respiratory Rate: 20 bpm SpO2: 98% Tempera ture: 36.7 (C) / 98.0 (F) Weight: 183 lbs 10/06/2017 Blood Pressure 1: 130/86 Code: 8480-6 BMI: 21.1 Code: 55117-1 Heart Rate 1: 92 bpm Height: 6'4" Respiratory Rate: 18 bpm SpO2: 98% Tempera ture: 36.9 (C) / 98.5 (F) Weight: 173 lbs 02/03/2017 Blood Pressure 1: 144/92 Code: 8480-6 BMI: 20.8 Code: 17100-6 Heart Rate 1: 88 bpm Height: 6'4" Respiratory Rate: 20 bpm SpO2: 97% Tempera ture: 36.7 (C) / 98.1 (F) Weight: 171 lbs 11/25/2016 Blood Pressure 1: 126/84 Code: 8480-6 Heart Rate 1: 76 bpm Respiratory Rate: 20 bpm SpO2: 96% Temperature: 36.9 (C) / 98.4 (F) We ight: 170 lbs 11/14/2016 Blood Pressure 1: 126/82 Code: 8480-6 BMI: 20.7 Code: 49324-5 Heart Rate 1: 86 bpm Height: 6'4" Respiratory Rate: 18 bpm SpO2: 96% Tempera ture: 35.8 (C) / 96.5 (F) Weight: 170 lbs 04/02/2016 Blood Pressure 1: 124/78 Code: 8480-6 Heart Rate 1: 88 bpm Respiratory Rate: 24 bpm SpO2: 97% Temperature: 36.1 (C) / 97.0 (F) We ight: 161 lbs 11/29/2015 Blood Pressure 1: 124/68 Code: 8480-6 BMI: 19.2 Code: 13021-0 Heart Rate 1: 94 bpm Height: 6'4" Respiratory Rate: 18 bpm SpO2: 97% Tempera ture: 36.1 (C) / 97.0 (F) Weight: 158 lbs 06/27/2015 Blood Pressure 1: 128/78 Code: 8480-6 BMI: 18.7 Code: 65296-5 Heart Rate 1: 72 bpm Height: 6'4" Respiratory Rate: 22 bpm SpO2: 98% Tempera ture: 35.9 (C) / 96.6 (F) Weight: 154 lbs 05/24/2015 Blood Pressure 1: 112/78 Code: 8480-6 BMI: 19.7 Code: 20026-4 Heart Rate 1: 78 bpm Height: 6'4" [...] up 12/22/2017 fatigue 10/06/2017 follow up 02/03/2017 [facility] fwup follow up 11/25/2016 ~generic 11/14/2016 Family History of Le ukemia and would like checked for this cough 04/02/2016 cough 11/29/2015 follow up 06/27/2015 1 month ~generic 05/24/2015 Establishing care Encounters Encounter Performer Location Codes Date ([id number]) OFFICE/OUTPATIENT VISIT EST Diagnosis: Puncture wound of right foot[ICD10: S91.331A] Diagnosis: DM w/o complication type II, uncontrolled[ICD10: E11.65] Janneth [facility] [employer] CPT-4: 22469 08/18/2019 ([id number]) OFFICE/OUTPATIENT VISIT EST Diagnosis: Other specified local infections of the skin and subcutaneous tissue[ICD10: L08.89] Diagnosis: DM w/o complication type II, uncontrolled[ICD10: E11.65] Diagnosis: Right leg DVT[ICD10: I82.401] Janneth [facility]ARD [facility] [employer] CPT-4: 91234 07/05/2019 ([id number]) OFFICE/OUTPATIENT VISIT EST Diagnosis: 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, implant, or graft[ICD10: T85.818A] Diagnosis: DM w/o complication type II, uncontrolled[ICD10: E11.65] Janneth WARD [employer] CPT-4: 89281 05/17/2019 ([id number]) OFFICE/OUTPATIENT VISIT EST Diagnosis: Acute dermatitis[ICD10: L30.9] Diagnosis: DM w/o complication type II, uncontrolled[ICD10: E11.65] Diagnosis: Right leg DVT[ICD10: I82.401] Janneth WARD [employer] CPT-4: 19384 05/02/2019 ([id number]) OFFICE/OUTPATIENT VISIT EST Diagnosis: DM w/o complication type II, uncontrolled[ICD10: E11.65] Diagnosis: Allergic dermatitis[ICD10: L23.9] Diagnosis: Right leg DVT[ICD10: I82.401] Diagnosis: Paroxysmal atrial fibrillation[ICD10: I48.0] Diagnosis: Right calf pain[ICD10: M79.661] Jannethya WARD [employer] CPT-4: 50313 04/25/2019 ([id number]) OFFICE/OUTPATIENT VISIT EST Diagnosis: DM w/o complication type II, uncontrolled[ICD10: E11.65] Diagnosis: 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, implant, or graft[ICD10: T85.818A] Diagnosis: Essential hypertension[ICD10: I10] Janneth Shrestha REGINE FLOR SHRESTHA [employer] [facility] CPT-4: 46426 04/11/2019 ([id number]) OFFICE/OUTPATIENT VISIT EST Diagnosis: Sinus tachycardia[ICD10: R00.0] Diagnosis: Folliculitis[ICD10: L73.9] Janneth MERINOLINE Liza TAFOYAER [employer] CPT-4: 75231 03/01/2019 ([id number]) OFFICE/OUTPATIENT VISIT EST Diagnosis: Cellulitis of left lower limb[ICD10: L03.116] Diagnosis: Tendinitis of left peroneus longus tendon[ICD10: M76.72] Janneth MERINOLINE Liza CLARK [employer] [facility] CPT-4: 31223 11/18/2018 ([id number]) OFFICE/OUTPATIENT VISIT EST Diagnosis: Cellulitis of left foot[ICD10: L03.116] Diagnosis: Spontaneous ecchymoses[ICD10: R23.3] Diagnosis: Venous insufficiency (chronic) (peripheral)[ICD10: I87.2] Diagnosis: Mixed hyperlipidemia[ICD10: E78.2] Vania García REGINE FLOR SHRESTHA [employer] CPT-4: 22661 11/09/2018 ([id number]) OFFICE/OUTPATIENT VISIT EST Diagnosis: Venous insufficiency (chronic) (peripheral)[ICD10: I87.2] Diagnosis: Cellulitis of left lower limb[ICD10: L03.116] Diagnosis: Pain in right foot[ICD10: M79.671] Vania Cohenshahram RAY [facility]ARK [employer] CPT-4: 33144 10/13/2018 ([id number]) OFFICE/OUTPATIENT VISIT EST Diagnosis: Low back pain[ICD10: M54.5] Vania Cohenshahram WARD [facility] [employer] CPT-4: 12882 09/23/2018 ([id number]) OFFICE/OUTPATIENT VISIT EST Diagnosis: Gastro-esophageal reflux disease without esophagitis[ICD10: K21.9] Diagnosis: Dysphagia, pharyngoesophageal phase[ICD10: R13.14] Janneth SHRESTHA [facility] CPT-4: 10549 09/06/2018 ([id number]) OFFICE/OUTPATIENT VISIT EST Diagnosis: Tinea corporis[ICD10: B35.4] Vania SHRESTHA [facility] CPT-4: 52782 07/15/2018 ([id number]) OFFICE/OUTPATIENT VISIT EST Diagnosis: Cellulitis of left toe[ICD10: L03.032] Diagnosis: Mixed hyperlipidemia[ICD10: E78.2] Mandy MERINOGINNY RAY [facility] CPT-4: 16245 2018 OFFICE/OUTPATIENT VISIT EST Diagnosis: Cellulitis of left toe[ICD10: L03.032] Diagnosis: Unspecified disturbances of skin sensation[ICD10: R20.9] Mandy Gurvinder [facility] CPT-4: 30675 04/14/2018 ([id number]) OFFICE/OUTPATIENT VISIT EST Diagnosis: Cellulitis of left toe[ICD10: L03.032] Diagnosis: Insomnia, unspecified[ICD10: G47.00] [facility] CPT[facility]: 81766 03/18/2018 ([id number]) OFFICE/OUTPATIENT VISIT EST Diagnosis: Other postprocedural complications and disorders of the circulatory system, not elsewhere classified[ICD10: I97.89] Diagnosis: Rash and other nonspecific skin eruption[ICD10: R21] Diagnosis: Pain in right leg[ICD10: M79.604] Vania [facility] CPT-4: 96881 01/26/2018 ([id number]) OFFICE/OUTPATIENT VISIT EST Diagnosis: Other postprocedural complications and disorders of the circulatory system, not elsewhere classified[ICD10: I97.89] Diagnosis: Cellulitis of right lower limb[ICD10: L03.115] Vania [facility] CPT-4: 63419 12/22/2017 ([id number]) OFFICE/OUTPATIENT VISIT EST Diagnosis: Acute sinusitis, unspecified[ICD10: J01.90] Diagnosis: Unspecified disturbances of skin sensation[ICD10: R20.9] Vania SHRESTHA DO [employer] CPT-4: 82099 10/06/2017 ([id number]) OFFICE/OUTPATIENT VISIT EST Diagnosis: Primary insomnia[ICD10: F51.01] Diagnosis: Pain in left shoulder[ICD10: M25.512] Diagnosis: Poisoning by other parasympatholytics [anticholinergics and antimuscarinics] and spasmolytics, accidental (unintentional), sequela[ICD10: T44.3X1S] Janneth SHRESTHA [employer] [facility] CPT-4: 78338 02/03/2017 OFFICE/OUTPATIENT VISIT EST Diagnosis: Insomnia, unspecified[ICD10: G47.00] Diagnosis: Constipation, unspecified[ICD10: K59.00] Diagnosis: Spontaneous ecchymoses[ICD10: R23.3] Diagnosis: Pain in left foot[ICD10: M79.672] Vania SHRESTHA [employer] [facility] CPT-4: 69566 11/25/2016 OFFICE/OUTPATIENT VISIT EST Diagnosis: Insomnia, unspecified[ICD10: G47.00] Diagnosis: Constipation, unspecified[ICD10: K59.00] Diagnosis: Spontaneous ecchymoses[ICD10: R23.3] Diagnosis: Other specified local infections of the skin and subcutaneous tissue[ICD10: L08.89] Vania SHRESTHA [employer] [facility] CPT-4: 99 213 11/14/2016 ([id number]) OFFICE/OUTPATIENT VISIT EST Diagnosis: Acute upper respiratory infection, unspecified[ICD10: J06.9] Ester MERINOLINE Liza SHRESTHA [employer] [facility] CPT-4: 11470 04/02/2016 ([id number]) OFFICE/OUTPATIENT VISIT EST Diagnosis: Acute upper respiratory infection, unspecified[ICD10: J06.9] Ester Grande JANNETH SHRESTHA [employer] [facility] CPT-4: 87875 11/29/2015 ([id number]) OFFICE/OUTPATIENT VISIT EST Diagnosis: Pain in thoracic spine[ICD10: M54.6] Diagnosis: Paresthesia of skin[ICD10: R20.2] Diagnosis: Dysphagia, unspecified[ICD10: R13.10] Ester SHRESTHA DO [employer] CPT-4: 11394 06/27/2015 ([id number]) OFFICE/OUTPATIENT VISIT NEW Diagnosis: Pain in left leg[ICD10: M79.605] Diagnosis: Male erectile dysfunction, unspecified[ICD10: N52.9] Diagnosis: Dysphagia, unspecified[ICD10: R13.10] Ester SHRESTHA DO [employer] CPT-4: 74570 05/24/2015 Plan of Care Planned Activity Notes Codes Status Date Visit Diagnosis Plan: DM w/o complication type II, unc ontrolled Discussion: Lab drawn--HbA1C Accuchecks daily Continue current meds Check CMP and HbA1C in 3mos then fwup ICD-9 : 250.02 ICD-10 : E11.65 08/18/2019 Visit Diagnosis Plan: Puncture wound of right foot Dis cussion: Dry dressing 1 more week of levaquin Back to work August 21 ICD-9 : 892.0 ICD-10 : S91.331A 08/18/2019 Patient Education: Levaquin- [employer] Coupon [id number] https://www.[employer]/resources/getResource/61/[id number]-xw Completed 08/18/2019 Appointment: Janneth Shrestha WPtel: [address] [place], [place] [address] [place] CANCELED 08/16/2019 Appointment: Janneth Shrestha WPtel: [address] [place], [place] [address] [place] CANCELED 07/21/2019 Visit Diagnosis Plan: Other [...] : I82.401 07/05/2019 Appointment: Janneth [facility]restha [facility]Ptel: [phone] [facility] [place] FOLLOW [facility] 07/05/2019 Patient Education: cephalexin- [employer] Coupon [id number] https://www.[employer]/resources/getResource/61/x2795j54-1075-6161-v8 Completed 07/05/2019 Visit Diagnosis Plan: Blood clot [...] : E11.65 05/17/2019 Appointment: Janneth Shrestha WPtel: [address] [facility] [place] FOLLOW [place] 05/17/2019 Patient Education: Metformin [...] L30.9 05/02/2019 Appointment: Janneth Shrestha WPtel: [address] [facility] [place] FOLLOW UP 05/02/2019 Patient Education: metoprolol succinate- [employer] Co upon [id number] https://www.[employer]/resources/getResource/61/07901ax2-p6f5-493r-i6 Completed 05/02/2019 Visit Diagnosis Plan: DM w/o [...] : I82.401 04/25/2019 Appointment: Janneth Shrestha WPtel: [facility] FOLLOW UP 04/25/2019 Patient Education: Metformin Patient Savings Message Alert Completed 04/25/2019 Patient Education: prednisone- [employer] Coupon [id number] https://www.[employer]/resources/getResource/61/0nb41wv2-y1pz-1b47-wc Completed 04/25/2019 Visit Diagnosis Plan: DM w/o [...] : T85.818A 04/11/2019 Appointment: Janneth Shrestha WPtel: [address] [place] [address] ACUTE ILLNESS 04/11/2019 Patient Education: metoprolol succinate- [employer] Co upon [id number] https://www.[employer]/resources/getResource/61/wy140874-77ny-4s60-41 Completed 04/11/2019 Patient Education: Metformin Patient Savings Message Alert Completed 04/11/2019 Patient Education: cephalexin- [employer] Coupon [id number] https://www.[employer]/resources/getResource/61/9ohp8924-4p7d-4839-lf Completed 04/11/2019 Visit Diagnosis Plan: Folliculitis Discussion: Bactrim and topical bactroban ICD-9 : 704.8 ICD-10 : L73.9 03/01/2019 Visit Diagnosis Plan: Sinus tachycardia Discussion: St art low dose metoprolol ER 25mg daily Monitor pulse Sees Cardiology next month ICD-9 : 427.89 ICD-10 : R00.0 03/01/2019 Appointment: Janneth Shrestha WPtel: [address] [place], [place] [address] [place] FOLLOW UP 03/01/2019 Patient Education: mupirocin- [employer] Coupon [id number] https://www.[employer]/resources/getResource/61/wx099ok5-34dl-864q-kv Completed 03/01/2019 Appointment: Janneth Shrestha WPtel: [address] [place] [address] [place] CANCELED 12/20/2018 Visit Diagnosis Plan: Cellulitis [...] ICD-10 : M76.72 11/18/2018 Appointment: Vania García [address] [place], [place] [address] [place] CANCELED 11/18/2018 Appointment: Janneth Shrestha WPtel: [address] [facility] [place] FOLLOW UP 11/18/2018 Patient Education: doxycycline monohydrate- [employer] Coupon [id number] https://www.[employer]/resources/getResource/61/zsc16703-c1i6-64i8-0m Completed 11/18/2018 Patient Education: prednisone- [employer] Coupon 44109 321 https://www.[employer]/resources/getResource/61/44bm0j7u-7su4-9084-zl Completed 11/18/2018 Care Plan: Referral Order SNOMED-CT : 30 7803213 Pending 11/18/2018 Visit Diagnosis Plan: Venous insufficiency [...] evaluated in an ED whether it be [place] or wherever he's traveling. discussed the risk [...] ICD-10 : R23.3 11/09/2018 Appointment: Vania García [address] [place], [place] [id number] ACUTE ILLNESS 11/09/2018 Patient Education: clindamycin HCl- [employer] Coupon [id number] https://www.[employer]/resources/getResource/61/51sn86n6-ts68-3bm9-0h Completed 11/09/2018 Appointment: Janneth Shrestha WPtel: [phone] [facility] [place] CANCELED 10/19/2018 Visit Diagnosis Plan: Pain [...] : 682.6 ICD-10 : L03.116 10/13/2018 Appointment: aVnia García [address] [place], [place] [address] Patient cant pay copay till when he [...] ICD-10 : M54.5 09/23/2018 Appointment: Vania García [address] [place] [address] ACUTE ILLNESS 09/23/2018 Patient Education: Medrol (Brenden)- [employer] Coupon [phone] https://www.[employer]/resources/getResource/61/uqia493y-7386-17h2-12 Completed 09/23/2018 Visit Diagnosis Plan: Gastro-esophageal reflux disease without esophagitis Discussion: Start omeprazole ICD-9 : 530.81 ICD-10 : K21.9 09/06/2018 Visit Diagnosis Plan: Dysphagia, pharyngoesophageal ph ase Discussion: Referral for EGD ICD-9 : 787.24 ICD-10 : R13.14 09/06/2018 Appointment: Janneth Shrestha WPtel: [phone] ACUTE ILLNESS 09/06/2018 Patient Education: omeprazole- [employer] Coupon 84694 [id number] https://www.[employer]/resources/getResource/61/343xu528-16r9-432e-25 Completed 09/06/2018 Care Plan: Referral Order SNOMED-CT : 30 [id number] Pending 09/06/2018 Visit Diagnosis Plan: Tinea corporis Discussion: nysta tin to be used bid until rash gone and then an additional 2 days. diflucan every 3 days for 3 doses. keep area clean and dry with no moisturizers. call office if no improvement in 2 weeks or if worsening. ICD-9 : 110.5 ICD-10 : B35.4 07/15/2018 Appointment: Vania García [address] [place] [address] ACUTE ILLNESS 07/15/2018 Patient Education: nystatin- [employer] Coupon [id number] https://www.[employer]/resources/getResource/61/83ylb420-a0ld-32fi-1h Completed 07/15/2018 Patient Education: Plavix- [employer] Coupon [id number] https://www.[employer]/resources/getResource/61/91iw5c89-e31l-90yo-50 fa-w671l1720030.pdf Completed 07/15/2018 Patient Education: cyclobenzaprine- [employer] Coupon [id number] https://www.[employer]/resources/getResource/61/30587q6e-6g49-36x9-rr Completed 07/15/2018 Visit Diagnosis Plan: Cellulitis of [...] ICD-10 : L03.032 2018 Appointment: Mandy Hollins [facility] [employer] [address] FOLLOW UP 2018 Patient Education: mupirocin- [employer] Coupon [id number] https://www.[employer]/resources/getResource/61/q3uv49d8-1436-0410-7y Completed 2018 Visit Diagnosis Plan: Cellulitis of [...] : R20.9 04/14/2018 Appointment: [facility] [address] [facility] [facility] 04/14/2018 Visit Diagnosis Plan: Cellulitis [...] : G47.00 03/18/2018 App[facility]ment: [facility]ía [facility] [facility] 03/18/2018 Patient Education: cyclobenzaprine- [employer] Coupon [id number] https://www.[employer]/resources/getResource/61/6817d795-1bk7-359b-g5 Completed 03/18/2018 Visit Diagnosis Plan: Other postprocedur al complications and disorders of the circulatory system, not elsewhere classified Discussion: discussed with dr. shrestha and patient was instructed to contact the [place] [facility] due to uncontrolled pain, continued [...] ICD-10 : R21 01/26/2018 Appointment: Vania García [address] [facility] [facility] Follow Up 01/26/2018 Appointment: Janneth Shrestha WPtel: [phone] [facility] 2nd LM NO SHOW 01/06/2018 Visit Diagnosis [...] : I97.89 12/22/2017 Appointment: Vania García [address] [facility] ACUTE ILLNESS 12/22/2017 Visit Diagnosis Plan: [...] : J01.90 10/06/2017 Appointment: Vania García [address] [facility] ACUTE ILLNESS 10/06/2017 Patient Education: Patient Medication Summary Completed 10/06/2017 Appointment: Vania García [address] [facility] ER Follow UP 08/17/2017 Appointment: Vania García [address] [facility] [place] CANCELED 07/03/2017 Appointment: Janneth Shrestha WPtel: [address] [facility] [place] canceled at 8:05 this morning. 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 ICD-9 : 729.5 ICD-10 : M79.672 11/25/2016 Visit Diagnosis Plan: Insomnia, unspecified Recommenda tions: resolved with lunesta. continue taking as prescribed. ICD-9 : 780.52 ICD-10 : G47.00 11/25/2016 Appointment: Vania García [address] [place], [place] [address] FOLLOW UP 11/25/2016 Patient Education: Patient Medication Summary Completed 11/25/2016 Visit Diagnosis Plan: Other specified lo gisel [...] ICD-10 : K59.00 11/14/2016 Visit Diagnosis Plan: Insomnia, unspecified Discussion : lunesta 3 mg q hs ordered to be taken daily to assist with sleep disturbance Follow Up: 2 weeks ICD-9 : 780.52 ICD-10 : G47.00 11/14/2016 Appointment: Vania García [address] [place] [address] ACUTE ILLNESS 11/14/2016 Patient Education: Patient Medication Summary Completed 11/14/2016 Visit Diagnosis Plan: Acute upper respiratory infectio n, unspecified Discussion: Rxs as above Continue OTC and supportive meds Encouraged smoking cessation Follow up PRN ICD-9 : 465.9 ICD-10 : J06.9 04/02/2016 Appointment: Ester Grande [address] [place] [address] ACUTE ILLNESS 04/02/2016 Patient Education: Patient Medication Summary Completed 04/02/2016 Visit Plan: Rxs as above Supportive care reviewed Follow up PRN 11/29/2015 Appointment: Ester Grande [address] [place] [address] 11/27 confirmed~sl ACUTE ILLNESS 11/29/2015 Patient Education: [...] for pain 06/27/2015 [facility]ment[facility] [facility] 06/25 ~ 06/26 phone not on~ FOLLOW UP 06/27/2015 Patient Education: Patient Medication Summary Completed 06/27/2015 Care Plan: X-RAY EXAM RIBS UNI 2 VIEWS L OINC : 57592-7 Pending 06/27/2015 Referral: Héctor Woodard WPtel: [address] [facility] 05/29 Scheduled with [facility] Appointment Re quested 06/26/2015 Referral: Cameron Khanna WPtel: [phone] [place] [phone] Referral Initiated 06/11/2015 Referral: Marco Antonio Green WPtel: [address] [id number] 05/30/15 Needs to be there at pre op time per ~ Initiated 06/04/2015 Visit Plan: Will get all necessary refer rals set up - CTS, Uro and G/S Swallow study and routine labs ordered Will further investigate left leg pain with EMG if not cardio related 05/24/2015 Appointment: Ester Grande [address] [facility] NEW PATIENT 05/24/2015 Patient Education: Patient Medication Summary Completed 05/24/2015 Care Plan: Referral Order SNOMED-CT : 30 [id number] Pending 05/24/2015 Care Plan: Referral Order SNOMED-CT : 30 5409799 Pending 05/24/2015 Care Plan: Referral Order SNOMED-CT : 30 [id number] Pending 05/24/2015 Referral: Sudheer Gann WPtel: [address] [facility] Referral Appointment Requested Referral: Alfonzo Andujar WPtel: [address] [facility] [place] Referral Initiated Referral: [facility] [address] [id number] [place] Referral Completed Referral: Cameron Khanna WPtel: [address] [id number] [place] Referral Appointment Requested Referral: Brianna Rose WPtel: [address] [place] [address] [place] Referral Initiated Referral: Héctor Woodard WPtel: [address] [address] [place] 05/24/15 [facility] office suggested he see another card. ~sl Initiated Referral: Alfonzo Andujar WPtel: [address] [facility] [place] Referral Appointment Requested Referral: Marco Antonio Green WPtel: [address] [place] [address] [place] Referral Appointment Requested Instructions Comment . [...]
--- OUTSIDE RECORDS SUMMARY | 2019-09-02 12:11 | XMS REPORT | CCD ---
Author Author [place] Organization JANNETH SHRESTHA DO [facility] Address [address] [place] [address] Phone Unavailable Care Team Providers Care Assistant Operator Name Role Phone Janneth Shrestha D.O., PP Unavailable CCM Unavailable Summary Purpose Interface Exchange Insurance Providers Payer name Policy type / Coverage type Covered constitution party ID Effective Begin Date Effective End Date Blue Cross Blue Shield Blue Cross/Blue Shield [id number] Unknown Family History Family History data not found Social History Social History Element Codes Description Effective Dates Marital status Unknown 05/24/2015 Number of children Unknown 2 05/24/2015 Employment Unknown Currently employed 05/24/[address]: 58592051 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 [...] Fill Instructions Levaquin 500 mg tablet RxNorm: 510847 1 Tablet(s) Oral QD 08/18/2019 08/25/2019 Active metoprolol succinate ER 50 mg tablet,extended release 24 hr RxNorm: 763289 1 Tablet(s) Oral QD 08/01/2019 08/18/2019 Inactive cyclobenzaprine 10 mg tablet RxNorm: 212741 TAKE ONE TA BLET BY MOUTH AT BEDTIME NEEDED 07/12/2019 No Stop Date Active cephalexin 500 mg tablet RxNorm: 415739 1 Tablet(s) Oral three times a day 07/05/2019 07/12/2019 Inactive cyclobenzaprine 10 mg tablet RxNorm: 454271 TAKE ONE TA BLET BY MOUTH AT BEDTIME NEEDED 05/20/2019 07/11/2019 Inactive metformin ER 1,000 mg tablet,extended release 24hr RxNorm: 1 806039 1 Tablet(s) Oral two times a day replaces 500mg dose 05/17/2019 11/13/2019 Active [AttnRPh: Saving apply/adjudicate RxGRP:[id number] RxBIN:[id number] RxPCN: ID#:[id number]] ReliOn Prime Test Strips RxNorm: 1 Unit [...] 05/01/2019 Inactive Plavix 75 mg tablet RxNorm: 658539 TAKE ONE TABLET BY MOUTH DAILY 0 04/25/2019 04/26/2019 Inactive Plavix 75 mg tablet RxNorm: 901959 TAKE ONE TABLET BY MOUTH DAILY 0 04/25/2019 04/24/2019 Inactive Xarelto 20 mg tablet RxNorm: 6151280 1 Tablet(s) Oral QD 04/25/2019 0 07/04/2019 Inactive amiodarone 200 mg tablet RxNorm: 910865 1 Tablet(s) Oral QD 020 07/04/2019 Inactive metformin ER 500 mg 24 hr tablet,extended release RxNorm: 18 67928 1 Tablet(s) Oral two times a day 04/25/2019 05/16/2019 Inactive prednisone 20 mg tablet RxNorm: 517381 1 Tablet(s) Oral two jn es a day 04/25/2019 05/01/2019 Inactive aspirin 81 mg tablet,delayed release RxNorm: 285917 1 Tablet(s) Oral QD 04/11/2019 No Stop Date Active pantoprazole 40 mg tablet,delayed release RxNorm: 472561 1 Tabl et(s) Oral QAM 04/11/2019 08/18/2019 Inactive Vitamin C 1,000 mg tablet RxNorm: 791806 1 Tablet(s) Oral QD 201908/18/2019 Inactive Xarelto 15 mg tablet RxNorm: 0846002 1 Tablet(s) Oral QD 04/11/2019 0 04/24/2019 Inactive metformin ER 500 mg 24 hr tablet,extended release RxNorm: 18 95175 1 Tablet(s) Oral QD 04/11/2019 04/24/2019 Inactive cephalexin 500 mg capsule RxNorm: 254061 1 Capsule(s) Oral thre e times a day 04/11/2019 04/18/2019 Inactive metoprolol succinate ER 50 mg tablet,extended release 24 hr RxNorm: 307319 1 Tablet(s) Oral QD replaces 25mg dose 04/11/2019 05/01/2019 Inactive cyclobenzaprine 10 mg tablet RxNorm: 767590 TAKE ONE TA BLET BY MOUTH EVERY NIGHT AT BEDTIME NEEDED 03/11/2019 No Stop Date Active mupirocin 2 % topical ointment RxNorm: 062891 Applicati on Topical two times a day 03/01/2019 04/10/2019 Inactive metoprolol succinate ER 25 mg tablet,extended release 24 hr RxNorm: 181752 1 Tablet(s) Oral QD 03/01/2019 04/24/2019 Inactive Bactrim DS 800 mg-160 mg tablet RxNorm: 355465 1 Tablet(s) Oral two times a day 03/01/2019 03/11/2019 Inactive cyclobenzaprine 10 mg tablet RxNorm: 623923 TAKE ONE TA BLET BY MOUTH EVERY NIGHT AT BEDTIME NEEDED 01/10/2019 03/10/2019 Inactive Plavix 75 mg tablet RxNorm: 484196 TAKE ONE TABLET BY MOUTH DAILY 1 03/12/2018 04/24/2019 Inactive omeprazole 40 mg capsule,delayed release RxNorm: 152051 TAKE ONE CAPSULE BY MOUTH EVERY NIGHT AT BEDTIME FOR REFLUX 01/10/2019 05/16/2019 Inactive tramadol 50 mg tablet RxNorm: 670912 1 Tablet(s) Oral f our times a day as needed 01/03/2019 01/03/2019 Inactive doxycycline monohydrate 100 mg capsule RxNorm: 0826695 1 Capsule(s) Oral two times a day 11/22/2018 12/13/2018 Inactive prednisone 20 mg tablet RxNorm: 216231 1 Tablet(s) Oral two jn es a day 11/22/2018 11/29/2018 Inactive Levaquin 750 mg tablet RxNorm: 398674 Tablet(s) Oral 11/18/201802/28 Inactive prednisone 20 mg tablet RxNorm: 523435 1 Tablet(s) Oral two jn es a day 11/18/2018 11/21/2018 Inactive tramadol 50 mg tablet RxNorm: 153801 Tablet(s) Oral 11/18/20182018 Inactive doxycycline monohydrate 100 mg capsule RxNorm: 6650306 1 Capsule(s) Oral two times a day 11/18/2018 11/21/2018 Inactive Plavix 75 mg tablet RxNorm: 416413 TAKE ONE TABLET BY MOUTH DAILY 0 11/10/2018 01/08/2019 Inactive clindamycin HCl 300 mg capsule RxNorm: 775831 1 Capsule (s) Oral three times a day 11/09/2018 11/19/2018 Inactive Keflex 500 mg capsule RxNorm: 979475 1 Capsule(s) PO BID 10/13/2018 0 10/22/2018 Inactive Medrol (Brenden) 4 mg tablets in a dose pack RxNorm: 303569 Tablet(s) take as directed PO 09/23/2018 10/12/2018 Inactive omeprazole 40 mg capsule,delayed release RxNorm: 014504 1 Capsule(s) PO QHS for reflux 09/06/2018 11/04/2018 Inactive Diflucan 150 mg tablet RxNorm: 899680 1 Tablet(s) PO Q72H 07/15/2018 09/05/2018 Inactive cyclobenzaprine 10 mg tablet RxNorm: 085242 1 Tablet(s) PO QHS as needed 07/15/2018 10/12/2018 Inactive nystatin 100,000 unit/gram topical cream RxNorm: 163862 1 Gram( s) TOP BID 07/15/2018 09/05/2018 Inactive Plavix 75 mg tablet RxNorm: 388170 1 Tablet(s) PO QD 07/15/201810/12 Inactive cyclobenzaprine 10 mg tablet RxNorm: 682653 1 Tablet(s) PO QHS as needed 06/10/2018 06/09/2018 Inactive cyclobenzaprine 10 mg tablet RxNorm: 740860 TAKE ONE TA BLET BY MOUTH EVERY NIGHT AT BEDTIME NEEDED 05/10/2018 06/10/2018 Inactive mupirocin 2 % topical ointment RxNorm: 121635 1 Application TOP BID 2018 05/25/2018 Inactive 22 gram cyclobenzaprine 10 mg tablet RxNorm: 683271 1 Tablet(s) PO QHS as needed 04/14/2018 06/09/2018 Inactive doxycycline hyclate 100 mg tablet RxNorm: 2534407 1 Tablet(s) PO BI D 04/14/2018 04/23/2018 Inactive cyclobenzaprine 10 mg tablet RxNorm: 048355 1 Tablet(s) PO QHS as needed 04/07/2018 04/13/2018 Inactive Bactrim DS 800 mg-160 mg tablet RxNorm: 770597 1 Tablet(s) PO BID 0 03/18/2018 03/27/2018 Inactive cyclobenzaprine 10 mg tablet RxNorm: 242598 1 Tablet(s) PO QHS as needed 03/18/2018 04/06/2018 Inactive triamcinolone acetonide 0.1 % topical cream RxNorm: 7382020 APPLY TO AFFECTED AREA(S) TWO TIMES A DAY 02/03/2018 02/12/2018 Inactive triamcinolone acetonide 0.1 % topical cream RxNorm: 6936457 1 Application TOP BID 01/26/2018 02/02/2018 Inactive Medrol (Brenden) 4 mg tablets in a dose pack RxNorm: 451978 TAKE BY MOUTH INSTRUCTED - PER PACKAGE INSTRUCTIONS 12/11/2017 12/16/2017 Inactive Medrol (Brenden) 4 mg tablets in a dose pack RxNorm: 562113 Tablet(s) P O 10/06/2017 12/10/2017 Inactive Lunesta 3 mg tablet RxNorm: 708564 1 Tablet(s) PO QHS 11/25/201608/2016 Inactive Lunesta 3 mg tablet RxNorm: 829485 1 Tablet(s) PO QHS 11/14/201610/2016 Inactive Bactrim DS 800 mg-160 mg tablet RxNorm: 957693 1 Tablet(s) PO BID 0 11/14/2016 11/23/2016 Inactive Epi E-Z Pen 0.3 mg/0.3 mL injection, auto-injector RxNorm: 1 021207 Milliliter(s) IM Use as Directed 06/25/2016 09/05/2018 Inactive amoxicillin 875 mg tablet RxNorm: 054912 1 Tablet(s) PO BID 017 04/11/2016 Inactive prednisone 20 mg tablet RxNorm: 133862 1 Tablet(s) PO BID 04/02/2016 04/06/2016 Inactive azithromycin 250 mg tablet RxNorm: 095344 2 Tablet(s) P O on day one then 1 tab on days 2-5 11/29/2015 11/28/2015 Inactive Medrol (Brenden) 4 mg tablets in a dose pack RxNorm: 185217 Take as directed 11/29/2015 11/13/2016 Inactive meloxicam 15 mg tablet RxNorm: 035270 1 Tablet(s) PO QD 07/02/2015 Inactive Chantix Starting Month Box 0.5 mg (11)-1 mg (42) table ts in dose pack RxNorm: 019264 Tablet(s) PO As Directed 06/20/2015 07/10/2015 Inactive omeprazole 40 mg capsule,delayed release RxNorm: 779248 1 Capsu le(s) PO QD 05/31/2015 11/13/2016 Inactive omeprazole 40 mg capsule,delayed release RxNorm: 870728 1 Capsu le(s) PO QD 05/31/2015 05/30/2015 Inactive Multivitamin And Mineral oral RxNorm: oral No Start Date Active Wellbutrin SR 150 mg tablet,sustained-release RxNorm: 275913 1 Tablet(s) PO BID No Start Date 11/13/2016 Inactive gabapentin 100 mg capsule RxNorm: 266217 1 Capsule(s) PO TID No Sta rt Date 03/17/2018 Inactive Chantix Starting Month Box 0.5 mg (11)-1 mg (42) table ts in dose pack RxNorm: 558694 Tablet(s) PO As Directed No Start Date 06/19/2015 Inactive Eliquis 5 mg tablet RxNorm: 6312955 1 Tablet(s) PO BID No Start Date 03/17/2018 Inactive Lactobacillus acidophilus-Bifidobacterium longum oral RxNorm: oral No Start Date 07/04/2019 Inactive aspirin 325 mg tablet RxNorm: 386500 1 Tablet(s) PO QD No Start Date 11/13/2016 Inactive clindamycin HCl 300 mg capsule RxNorm: 473496 2 Capsule(s) PO Q8H N o Start Date 03/17/2018 Inactive Fish Oil 1,000 mg (120 mg-180 mg) capsule RxNorm: 1 Caps ule(s) PO QD No Start Date 09/05/2018 Inactive aspirin 81 mg tablet RxNorm: 469412 1 Tablet(s) PO QD No Start Date 1 03/28/2017 Inactive Fish Oil 1,000 mg capsule RxNorm: 1 Capsule(s) PO QD No Start Date 11/13/2016 Inactive Baby Aspirin 81 mg chewable tablet RxNorm: 113843 1 Tablet(s) P O BID No Start Date 02/02/2017 Inactive Xarelto 10 mg tablet RxNorm: 0709624 1 Tablet(s) PO QD No Start Date 01/25/2018 Inactive tramadol 50 mg tablet RxNorm: 981616 1-2 Tablet(s) PO Q6H No Start Date 03/17/2018 Inactive meloxicam 15 mg tablet RxNorm: 839467 1 Tablet(s) PO QD No Start Da te 07/01/2015 Inactive Epi E-Z Pen 0.3 mg/0.3 mL injection, auto-injector RxNorm: 1 049534 Milliliter(s) IM Use as Directed No Start Date 06/24/2016 Inactive Plavix 75 mg tablet RxNorm: 863666 1 Tablet(s) PO QD No Start Date Inactive Medication Administered No Medication Administered data Immunizations No Immunization data Results Observation Observation Code Item Item Code Result Date S ervice Location MEAN GLUC 7361063 Calc Mean Gluc 151 mg/dL 08/18/2019 Unkn own GLYCOSYLATED HEMOGLOBIN TEST 18782 Hgb A1c 60861-2 6.9 % 0 08/18/2019 Unknown COMPREHENSIVE METABOLIC 40432 AST 25 U/L 2018 Unknown COMPREHENSIVE METABOLIC 22844 ALT 28 U/L 2018 Unknown COMPREHENSIVE METABOLIC 00700 BUN 13 mg/dL 2018 Unknown COMPREHENSIVE METABOLIC 83845 ALBUMIN 4.2 g/dL 2018 Unknown COMPREHENSIVE METABOLIC 27863 CHLORIDE 104 mmol/L 11/09 Unknown COMPREHENSIVE METABOLIC 77737 Bili Total 0.5 mg/dL 11/09 Unknown COMPREHENSIVE METABOLIC 58981 ALK PHOS 72 U/L 2018 Unknown COMPREHENSIVE METABOLIC 69333 SODIUM 139 mmol/L 11/09 Unknown COMPREHENSIVE METABOLIC 67265 CREATININE 0.98 mg/dL 10/18 Unknown COMPREHENSIVE METABOLIC 52862 CALCIUM 9.1 mg/dL 2018 Unknown COMPREHENSIVE METABOLIC 17065 POTASSIUM 3.7 mmol/L 11/09 Unknown COMPREHENSIVE METABOLIC 66046 Total Protein 7.2 g/dL Unknown COMPREHENSIVE METABOLIC 24372 Glucose 137 mg/dL 2018 Unknown COMPREHENSIVE METABOLIC 82279 Bicarbonate 24 mmol/L 10/18 Unknown COMPREHENSIVE METABOLIC 33388 AGAP 11 mmol/L 2018 Unknown COMPLETE BLOOD COUNT 6779182 WBC 4.6 10e9/L 11/10/19 19 Unknown COMPLETE BLOOD COUNT [id number] RBC 4.88 10e12/L 2018 Unknown COMPLETE BLOOD COUNT 2159188 HEMOGLOBIN 14.7 g/dL 11/10/19 19 Unknown COMPLETE BLOOD COUNT 6188503 HEMATOCRIT 43.7 % 11/10/19 19 Unknown COMPLETE BLOOD COUNT 7781960 MCV 89.5 fL 9 Unknown COMPLETE BLOOD COUNT 3778454 MCH 30.1 pg 9 Unknown COMPLETE BLOOD COUNT 5791733 MCHC 33.6 g/dL 9 Unknown COMPLETE BLOOD COUNT 9278419 PLATELET COUNT 179 10e9/L Unknown COMPLETE BLOOD COUNT 6495788 Mean Plt Volume 11.6 fL Unknown COMPLETE BLOOD COUNT 0615407 Neut Auto 55.5 % 9 Unknown COMPLETE BLOOD COUNT 1799042 Lymph Auto 28.7 % 11/10/19 19 Unknown COMPLETE BLOOD COUNT 5623706 Atlantic Auto 7.9 % 9 Unknown COMPLETE BLOOD COUNT 8334104 RDW 13.2 % 9 Unknown COMPLETE BLOOD COUNT 4742560 Eos Auto 7.7 % 9 Unknown COMPLETE BLOOD COUNT 9475065 Baso Auto 0.2 % 9 Unknown COMPLETE BLOOD COUNT 6493973 Neutrophil Abs 2.55 10e9/L Unknown COMPLETE BLOOD COUNT 8499151 Lymphocyte Abs 1.32 10e9/L Unknown COMPLETE BLOOD COUNT 4853851 Monocyte Abs 0.36 10e9/L 10/18 Unknown COMPLETE BLOOD COUNT [id number] Eosinophil Abs 0.35 10e9/L Unknown COMPLETE BLOOD COUNT [id number] RDW-SD 42.2 fL 9 Unknown COMPLETE BLOOD COUNT 3936034 Basophil Abs 0.01 10e9/L 10/18 Unknown LIPID GROUP 69825 Cholesterol 205 mg/dL 11/09/2018 Unkno wn LIPID GROUP 31162 Triglyceride 268 mg/dL 11/09/2018 Unkn own LIPID GROUP 12728 HDL CHOLESTEROL 35 mg/dL 11/09/2018 U nknown LIPID GROUP 49893 Chol/HDL Ratio 5.86 ratio 11/09/2018 U nknown LIPID GROUP 38110 NON-HDL Chol 170 mg/dL 11/09/2018 Unkn own LIPID GROUP 83563 LDL Cholesterol 116 mg/dL 11/09/2018 U nknown PT 0373421 PT 12.7 Seconds 11/09/2018 Unknow n PT 8420225 INR 0.9 11/09/2018 Unknown GFR CALC 5266012 GFR Non Afr Amr >60 mL/min 11/09/2018 Un known GFR CALC 6373747 GFR Afr Amr >60 mL/min 11/09/2018 Unknow n ACT PARTIAL THRMBOPLASTIN TIME 44520 PTT 34.0 Sec[place] nds 11/09/2018 Unknown LIPID GROUP 20446 Cholesterol 186 mg/dL 2018 Unkno wn LIPID GROUP 31109 Triglyceride 229 mg/dL 2018 Unkn own LIPID GROUP 36705 HDL CHOLESTEROL 36 mg/dL 2018 U nknown LIPID GROUP 69942 Chol/HDL Ratio 5.17 ratio 2018 U nknown LIPID GROUP 46351 NON-HDL Chol 150 mg/dL 2018 Unkn own LIPID GROUP 82025 LDL Cholesterol 104 mg/dL 2018 U nknown GFR CALC 1540273 GFR Non Afr Amr >60 mL/min 2018 Un known GFR CALC 6955169 GFR Afr Amr >60 mL/min 2018 Unknow n COMPREHENSIVE METABOLIC 98325 AST 23 U/L 2018 Unknown COMPREHENSIVE METABOLIC 61024 ALT 22 U/L 2018 Unknown COMPREHENSIVE METABOLIC 93686 BUN 15 mg/dL 2018 Unknown COMPREHENSIVE METABOLIC 87398 ALBUMIN 4.1 g/dL 2018 Unknown COMPREHENSIVE METABOLIC 56914 CHLORIDE 106 mmol/L 05/06 Unknown COMPREHENSIVE METABOLIC 65742 Bili Total 0.6 mg/dL 05/06 Unknown COMPREHENSIVE METABOLIC 79988 ALK PHOS 61 U/L 2018 Unknown COMPREHENSIVE METABOLIC 35031 SODIUM 141 mmol/L 05/06 Unknown COMPREHENSIVE METABOLIC 04275 CREATININE 0.91 mg/dL 04/17 Unknown COMPREHENSIVE METABOLIC 72029 CALCIUM 9.2 mg/dL 2018 Unknown COMPREHENSIVE METABOLIC 74679 POTASSIUM 3.8 mmol/L 05/06 Unknown COMPREHENSIVE METABOLIC 15733 Total Protein 7.0 g/dL Unknown COMPREHENSIVE METABOLIC 19291 Glucose 97 mg/dL 2018 Unknown COMPREHENSIVE METABOLIC 41511 Bicarbonate 28 mmol/L 04/17 Unknown COMPREHENSIVE METABOLIC 15865 AGAP 7 mmol/L 2018 Unknown THYROID STIMULATING HORMONE 39945 TSH 2.094 uIU/mL 2018 Unknown COMPLETE BLOOD COUNT 0682075 WBC 5.5 10e9/L 05/07/19 19 Unknown COMPLETE BLOOD COUNT 1419828 RBC 4.61 10e12/L 2018 Unknown COMPLETE BLOOD COUNT 3578451 HEMOGLOBIN 13.6 g/dL 05/07/19 19 Unknown COMPLETE BLOOD COUNT 1325566 HEMATOCRIT 40.0 % 05/07/19 19 Unknown COMPLETE BLOOD COUNT 1382877 MCV 86.8 fL 9 Unknown COMPLETE BLOOD COUNT 6874351 MCH 29.5 pg 9 Unknown COMPLETE BLOOD COUNT 0313606 MCHC 34.0 g/dL 9 Unknown COMPLETE BLOOD COUNT 7936704 PLATELET COUNT 197 10e9/L Unknown COMPLETE BLOOD COUNT 0540597 Mean Plt Volume 10.8 fL Unknown COMPLETE BLOOD COUNT 8911728 Neut Auto 49.6 % 9 Unknown COMPLETE BLOOD COUNT 4540964 Lymph Auto 36.8 % 05/07/19 19 Unknown COMPLETE BLOOD COUNT 7115898 Atlantic Auto 8.1 % 9 Unknown COMPLETE BLOOD COUNT 6508032 RDW 15.3 % 9 Unknown COMPLETE BLOOD COUNT 3069650 Eos Auto 5.3 % 9 Unknown COMPLETE BLOOD COUNT 5526903 Baso Auto 0.2 % 9 Unknown COMPLETE BLOOD COUNT 1058192 Neutrophil Abs 2.73 10e9/L Unknown COMPLETE BLOOD COUNT 3749252 Lymphocyte Abs 2.02 10e9/L Unknown COMPLETE BLOOD COUNT 2187450 Monocyte Abs 0.45 10e9/L 04/17 Unknown COMPLETE BLOOD COUNT 6637471 Eosinophil Abs 0.29 10e9/L Unknown COMPLETE BLOOD COUNT 6698478 RDW-SD 47.9 fL 9 Unknown COMPLETE BLOOD COUNT 5343861 Basophil Abs 0.01 10e9/L 04/17 Unknown Procedures Procedure Codes Date ROUTINE VENIPUNCTURE CPT-4: 76012 08/18/2019 A1C HPLC CPT-4: 14093 08/18/2019 CEFTRIAXONE SODIUM INJECTION CPT-4: J0696 11/09/2018 THER/PROPH/DIAG INJ SC/IM CPT-4: 24878 11/09/2018 ROUTINE VENIPUNCTURE CPT-4: 49775 11/09/2018 COMPREHEN METABOLIC PANEL CPT-4: 78334 11/09/2018 COMPLETE CBC W/AUTO DIFF WBC CPT-4: 62134 11/09/2018 LIPID PANEL CPT-4: 66858 11/09/2018 PROTHROMBIN TIME CPT-4: 22395 11/09/2018 THROMBOPLASTIN TIME PARTIAL CPT-4: 53250 11/09/2018 THER/PROPH/DIAG INJ SC/IM CPT-4: 30867 09/23/2018 KETOROLAC TROMETHAMINE INJ CPT-4: J1885 09/23/2018 ROUTINE VENIPUNCTURE CPT-4: 12725 2018 ASSAY THYROID STIM HORMONE CPT-4: 07470 2018 COMPREHEN METABOLIC PANEL CPT-4: 00315 2018 COMPLETE CBC W/AUTO DIFF WBC CPT-4: 25294 2018 LIPID PANEL CPT-4: 37995 2018 CEFTRIAXONE SODIUM INJECTION CPT-4: J0696 04/14/2018 THER/PROPH/DIAG INJ SC/IM CPT-4: 77715 04/14/2018 CEFTRIAXONE SODIUM INJECTION CPT-4: J0696 03/18/2018 THER/PROPH/DIAG INJ SC/IM CPT-4: 47157 03/18/2018 THER/PROPH/DIAG INJ SC/IM CPT-4: 94480 01/26/2018 KETOROLAC TROMETHAMINE INJ CPT-4: J1885 01/26/2018 CEFTRIAXONE SODIUM INJECTION CPT-4: J0696 12/22/2017 THER/PROPH/DIAG INJ SC/IM CPT-4: 34092 12/22/2017 ROUTINE VENIPUNCTURE CPT-4: 93136 11/14/2016 COMPLETE CBC W/AUTO DIFF WBC CPT-4: 96426 11/14/2016 PT/PTT CPT-4: 7638544 11/14/2016 Vital Signs Date Vital 08/18/2019 Blood [...] 1: 134/82 Code: 8480-6 BMI: 23.9 Code: 17765-4 Heart Rate 1: 100 bpm Height: 6'4" [...] 1: 138/70 Code: 8480-6 BMI: 22.6 Code: 97164-5 Heart Rate 1: 97 bpm Height: 6'4" [...] 1: 142/80 Code: 8480-6 BMI: 20.9 Code: 80739-3 Heart Rate 1: 108 bpm Height: 6'4" Respiratory Rate: 20 bpm SpO2: 97% Tempera ture: 36.6 (C) / 97.9 (F) Weight: 172 lbs 01/26/2018 Blood Pressure 1: 130/82 Code: 8480-6 Heart Rate 1: 98 bpm Respiratory Rate: 18 bpm SpO2: 99% Temperature: 35.7 (C) / 96.3 (F) We ight: 175 lbs 12/22/2017 Blood Pressure 1: 124/68 Code: 8480-6 BMI: 22.3 Code: 79505-2 Heart Rate 1: 100 bpm Height: 6'4" Respiratory Rate: 20 bpm SpO2: 98% Tempera ture: 36.7 (C) / 98.0 (F) Weight: 183 lbs 10/06/2017 Blood Pressure 1: 130/86 Code: 8480-6 BMI: 21.1 Code: 50799-9 Heart Rate 1: 92 bpm Height: 6'4" Respiratory Rate: 18 bpm SpO2: 98% Tempera ture: 36.9 (C) / 98.5 (F) Weight: 173 lbs 02/03/2017 Blood Pressure 1: 144/92 Code: 8480-6 BMI: 20.8 Code: 97484-1 Heart Rate 1: 88 bpm Height: 6'4" Respiratory Rate: 20 bpm SpO2: 97% Tempera ture: 36.7 (C) / 98.1 (F) Weight: 171 lbs 11/25/2016 Blood Pressure 1: 126/84 Code: 8480-6 Heart Rate 1: 76 bpm Respiratory Rate: 20 bpm SpO2: 96% Temperature: 36.9 (C) / 98.4 (F) We ight: 170 lbs 11/14/2016 Blood Pressure 1: 126/82 Code: 8480-6 BMI: 20.7 Code: 84377-9 Heart Rate 1: 86 bpm Height: 6'4" Respiratory Rate: 18 bpm SpO2: 96% Tempera ture: 35.8 (C) / 96.5 (F) Weight: 170 lbs 04/02/2016 Blood Pressure 1: 124/78 Code: 8480-6 Heart Rate 1: 88 bpm Respiratory Rate: 24 bpm SpO2: 97% Temperature: 36.1 (C) / 97.0 (F) We ight: 161 lbs 11/29/2015 Blood Pressure 1: 124/68 Code: 8480-6 BMI: 19.2 Code: 93747-7 Heart Rate 1: 94 bpm Height: 6'4" Respiratory Rate: 18 bpm SpO2: 97% Tempera ture: 36.1 (C) / 97.0 (F) Weight: 158 lbs 06/27/2015 Blood Pressure 1: 128/78 Code: 8480-6 BMI: 18.7 Code: 76887-9 Heart Rate 1: 72 bpm Height: 6'4" Respiratory Rate: 22 bpm SpO2: 98% Tempera ture: 35.9 (C) / 96.6 (F) Weight: 154 lbs 05/24/2015 Blood Pressure 1: 112/78 Code: 8480-6 BMI: 19.7 Code: 91179-3 Heart Rate 1: 78 bpm Height: 6'4" [...] care Encounters Encounter Performer Location Codes Date ([id number]) OFFICE/OUTPATIENT VISIT EST Diagnosis: Puncture wound of right foot[ICD10: S91.331A] Diagnosis: DM w/o complication type II, uncontrolled[ICD10: E11.65] Janneth WARD [employer] CPT-4: 08866 08/18/2019 ([id number]) OFFICE/OUTPATIENT VISIT EST Diagnosis: Other specified local infections of the skin and subcutaneous tissue[ICD10: L08.89] Diagnosis: DM w/o complication type II, uncontrolled[ICD10: E11.65] Diagnosis: Right leg DVT[ICD10: I82.401] Janneth WARD [employer] CPT-4: 62965 07/05/2019 ([id number]) OFFICE/OUTPATIENT VISIT EST Diagnosis: 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, implant, or graft[ICD10: T85.818A] Diagnosis: DM w/o complication type II, uncontrolled[ICD10: E11.65] Janneth Henrietta WARD [employer] CPT-4: 31522 05/17/2019 ([id number]) OFFICE/OUTPATIENT VISIT EST Diagnosis: Acute dermatitis[ICD10: L30.9] Diagnosis: DM w/o complication type II, uncontrolled[ICD10: E11.65] Diagnosis: Right leg DVT[ICD10: I82.401] Jannethya WARD [employer] CPT-4: 79092 05/02/2019 ([id number]) OFFICE/OUTPATIENT VISIT EST Diagnosis: DM w/o complication type II, uncontrolled[ICD10: E11.65] Diagnosis: Allergic dermatitis[ICD10: L23.9] Diagnosis: Right leg DVT[ICD10: I82.401] Diagnosis: Paroxysmal atrial fibrillation[ICD10: I48.0] Diagnosis: Right calf pain[ICD10: M79.661] Janneth SHRESTHA DO [facility] CPT-4: 65826 04/25/2019 ([id number]) OFFICE/OUTPATIENT VISIT EST Diagnosis: DM w/o complication type II, uncontrolled[ICD10: E11.65] Diagnosis: 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, implant, or graft[ICD10: T85.818A] Diagnosis: Essential hypertension[ICD10: I10] Janneth SHRESTHA [employer] CPT-4: 00093 04/11/2019 ([id number]) OFFICE/OUTPATIENT VISIT EST Diagnosis: Sinus tachycardia[ICD10: R00.0] Diagnosis: Folliculitis[ICD10: L73.9] Janneth HARDY [employer] CPT-4: 91837 03/01/2019 ([id number]) OFFICE/OUTPATIENT VISIT EST Diagnosis: Cellulitis of left lower limb[ICD10: L03.116] Diagnosis: Tendinitis of left peroneus longus tendon[ICD10: M76.72] Janneth SHRESTHA [employer] CPT-4: 30336 11/18/2018 ([id number]) OFFICE/OUTPATIENT VISIT EST Diagnosis: Cellulitis of left foot[ICD10: L03.116] Diagnosis: Spontaneous ecchymoses[ICD10: R23.3] Diagnosis: Venous insufficiency (chronic) (peripheral)[ICD10: I87.2] Diagnosis: Mixed hyperlipidemia[ICD10: E78.2] Vania SHRESTHA [employer] CPT-4: 71099 11/09/2018 ([id number]) OFFICE/OUTPATIENT VISIT EST Diagnosis: Venous insufficiency (chronic) (peripheral)[ICD10: I87.2] Diagnosis: Cellulitis of left lower limb[ICD10: L03.116] Diagnosis: Pain in right foot[ICD10: M79.671] Vania SHRESTHA [employer] CPT-4: 31637 10/13/2018 ([id number]) OFFICE/OUTPATIENT VISIT EST Diagnosis: Low back pain[ICD10: M54.5] Vania DEY [facility] CPT-4: 70986 09/23/2018 ([id number]) OFFICE/OUTPATIENT VISIT EST Diagnosis: Gastro-esophageal reflux disease without esophagitis[ICD10: K21.9] Diagnosis: Dysphagia, pharyngoesophageal phase[ICD10: R13.14] [facility] CPT-[facility]: 97125 09/06/2018 ([id number]) OFFICE/OUTPATIENT VISIT EST Diagnosis: Tinea corporis[ICD10: B35.4] [facility] CPT-[facility]: 73754 07/15/2018 ([id number]) OFFICE/OUTPATIENT VISIT EST Diagnosis: Cellulitis of left toe[ICD10: L03.032] Diagnosis: Mixed hyperlipidemia[ICD10: E78.2] [facility]: 59176 2018 OFFICE/OUTPATIENT VISIT EST Diagnosis: Cellulitis of left toe[ICD10: L03.032] Diagnosis: Unspecified disturbances of skin sensation[ICD10: R20.9] Mandy MERINOLINE Liza [facility] CPT-4: 04929 04/14/2018 ([id number]) OFFICE/OUTPATIENT VISIT EST Diagnosis: Cellulitis of left toe[ICD10: L03.032] Diagnosis: Insomnia, unspecified[ICD10: G47.00] [facility] 48167 03/18/2018 ([id number]) OFFICE/OUTPATIENT VISIT EST Diagnosis: Other postprocedural complications and disorders of the circulatory system, not elsewhere classified[ICD10: I97.89] Diagnosis: Rash and other nonspecific skin eruption[ICD10: R21] Diagnosis: Pain in right leg[ICD10: M79.604] Vania Diaz SL[facility]andra [facility] CPT-4: 93197 01/26/2018 ([id number]) OFFICE/OUTPATIENT VISIT EST Diagnosis: Other postprocedural complications and disorders of the circulatory system, not elsewhere classified[ICD10: I97.89] Diagnosis: Cellulitis of right lower limb[ICD10: L03.115] Vania SHRESTHA [employer] [facility] CPT-4: 10897 12/22/2017 ([id number]) OFFICE/OUTPATIENT VISIT EST Diagnosis: Acute sinusitis, unspecified[ICD10: J01.90] Diagnosis: Unspecified disturbances of skin sensation[ICD10: R20.9] Vania SHRESTHA [employer] [facility] CPT-4: 83201 10/06/2017 ([id number]) OFFICE/OUTPATIENT VISIT EST Diagnosis: Primary insomnia[ICD10: F51.01] Diagnosis: Pain in left shoulder[ICD10: M25.512] Diagnosis: Poisoning by other parasympatholytics [anticholinergics and antimuscarinics] and spasmolytics, accidental (unintentional), sequela[ICD10: T44.3X1S] Janneth SHRESTHA [employer] [facility] CPT-4: 56977 02/03/2017 OFFICE/OUTPATIENT VISIT EST Diagnosis: Insomnia, unspecified[ICD10: G47.00] Diagnosis: Constipation, unspecified[ICD10: K59.00] Diagnosis: Spontaneous ecchymoses[ICD10: R23.3] Diagnosis: Pain in left foot[ICD10: M79.672] Vania SHRESTHA [employer] [facility] CPT-4: 10582 11/25/2016 OFFICE/OUTPATIENT VISIT EST Diagnosis: Insomnia, unspecified[ICD10: G47.00] Diagnosis: Constipation, unspecified[ICD10: K59.00] Diagnosis: Spontaneous ecchymoses[ICD10: R23.3] Diagnosis: Other specified local infections of the skin and subcutaneous tissue[ICD10: L08.89] Vania SHRESTHA [employer] [facility] CPT-4: 99 213 11/14/2016 ([id number]) OFFICE/OUTPATIENT VISIT EST Diagnosis: Acute upper respiratory infection, unspecified[ICD10: J06.9] Ester WARD [employer] [facility] CPT-4: 71807 04/02/2016 ([id number]) OFFICE/OUTPATIENT VISIT EST Diagnosis: Acute upper respiratory infection, unspecified[ICD10: J06.9] Ester SHRESTHA DO [facility] CPT-4: 88030 11/29/2015 ([id number]) OFFICE/OUTPATIENT VISIT EST Diagnosis: Pain in thoracic spine[ICD10: M54.6] Diagnosis: Paresthesia of skin[ICD10: R20.2] Diagnosis: Dysphagia, unspecified[ICD10: R13.10] Ester SHRESTHA DO [facility] CPT-4: 97440 06/27/2015 ([id number]) OFFICE/OUTPATIENT VISIT NEW Diagnosis: Pain in left leg[ICD10: M79.605] Diagnosis: Male erectile dysfunction, unspecified[ICD10: N52.9] Diagnosis: Dysphagia, unspecified[ICD10: R13.10] Ester SHRESTHA DO [facility] CPT-4: 23887 05/24/2015 Plan of Care Planned Activity Notes [...] S91.331A 08/18/2019 Patient Education: Levaquin- [employer] Coupon [id number] https://www.PrecisionHawk.com/sampleny/resources/getResource/61/35v0l42u-9x79-076x-gx Completed 08/18/2019 Appointment: Janneth Shrestha WPtel: [address] [place], [place] [address] [place] CANCELED 08/16/2019 Appointment: Janneth Shrestha WPtel: [address] [place], [place] [address] [place] CANCELED 07/21/2019 Visit Diagnosis Plan: Other [...] : I82.401 07/05/2019 Appointment: Janneth Shrestha WPtel: [address] [place], [place] [address] [place] FOLLOW UP 07/05/2019 Patient Education: cephalexin- [employer] Coupon [id number] https://www.Ansira/sampleZBD Displays/resources/getResource/61/i9557q88-8784-7341-c1 Completed 07/05/2019 Visit Diagnosis Plan: Blood clot [...] : E11.65 05/17/2019 Appointment: Janneth Shrestha WPtel: [address] [place], [place] [address] [place] FOLLOW UP 05/17/2019 Patient Education: Metformin [...] allergic reaction to one of new meds kentrell Esparza amiodarone or metformin ICD-9 : 692.9 ICD-10 : L30.9 05/02/2019 App[facility]ment: [facility] [address] [facility] [facility] 05/02/2019 Patient Education: metoprolol succinate- [employer]imize[employer] Co upon [id number] https://www.Ansira/[employer]Hawk/resources/getResource/61/12500kw6-b9m6-669t-l7 Completed 05/02/2019 Visit Diagnosis Plan: DM w/o [...] I82.401 04/25/2019 Appointment: [facility] [address] [facility] [place] [facility] 04/25/2019 Patient Education: Metformin Patient Savings Message Alert Completed 04/25/2019 Patient Education: prednisone- [employer] Coupon [id number] https://www.Ansira/[employer]/resources/getResource/61/4vw99qv4-v8qt-1d16-dw Completed 04/25/2019 Visit Diagnosis Plan: DM w/o [...] T85.818A 04/11/2019 Appointment: Janneth [facility]rest[facility] [address] [facility] [facility] 04/11/2019 Patient Education: metoprolol succinate- [employer]imize[employer] Co upon [id number] https://www.Ansira/[employer]Hawk/resources/getResource/61/uk024290-55mj-6h26-00 Completed 04/11/2019 Patient Education: Metformin Patient Savings Message Alert Completed 04/11/2019 Patient Education: cephalexin- [employer] Coupon [id number] https://www.Ansira/[employer]/resources/getResource/61/2nmc2928-1z7e-6972-uc Completed 04/11/2019 Visit Diagnosis Plan: Folliculitis Discussion: Bactrim and topical bactroban ICD-9 : 704.8 ICD-10 : L73.9 03/01/2019 Visit Diagnosis Plan: Sinus tachycardia Discussion: St art low dose metoprolol ER 25mg daily Monitor pulse Sees Cardiology next month ICD-9 : 427.89 ICD-10 : R00.0 03/01/2019 Appointment: Janneth [facility]restha [facility]el[facility] [address] [facility] [facility] 03/01/2019 Patient Education: mupirocin- [employer] Coupon [id number] https://www.Ansira/[employer]/resources/getResource/61/la552jr8-83as-688h-uw Completed 03/01/2019 Appointment: Janneth Shrestha WPtel: [address] [place], [place] [id number] [place] CANCELED 12/20/2018 Visit Diagnosis Plan: Cellulitis [...] ICD-10 : M76.72 11/18/2018 Appointment: Vania García [address] [place] [address] [place] CANCELED 11/18/2018 Appointment: Janneth Shrestha WPtel: [address] [place] [address] [place] FOLLOW UP 11/18/2018 Patient Education: doxycycline monohydrate- [employer] Coupon [id number] https://www.Ansira/sampleZBD Displays/resources/getResource/61/tio44084-i8r4-34i7-7y Completed 11/18/2018 Patient Education: prednisone- Opt[employer]RX Coupon 00102 [id number] https://www.Ansira/sampleZBD Displays/resources/getResource/61/42ar8a5s-1lg6-4577-bs Completed 11/18/2018 Care Plan: Referral Order SNOMED-CT : 30 3677418 Pending 11/18/2018 Visit Diagnosis Plan: Venous insufficiency [...] evaluated in an ED whether it be [place] or wherever he's traveling. discussed the risk of bone involvement and the importance of having it evaluated if worsens. follow up in office when he returns though if no worsening symptoms. ICD-9 : 682.7 ICD-10 : L03.116 11/09/2018 Visit Diagnosis Plan: Spontaneous ecchymoses Discussio n: cbc, cmp, pt/inr, ptt ordered to rule out acute issues. ICD-9 : 782.7 ICD-10 : R23.3 11/09/2018 Appointment: Vaina García [address] [place], [place] [address]a [id number] 11/09/2018 Patient Education: clindamycin HCl- [employer] Coupon [id number] https://www.[employer].CleanEdison/samplemd/resources/getResource/61/48kb21y7-ok17-2ey6-4b Completed 11/09/2018 Appointment: Janneth [facility]restha [facility]el[facility] [address] [facility] [place] [facility] 10/19/2018 Visit Diagnosis Plan: [...] ICD-10 : L03.116 10/13/2018 Appointment: Vania García [address] [place], [place] [address] [id number] Patient cant pay copay till when he [...] ICD-10 : M54.5 09/23/2018 Appointment: Vania García [address] [place] [address] ACUTE ILLNESS 09/23/2018 Patient Education: Medrol (Brenden)- Optimize[employer] Coupon [id number] https://www.Ansira/[employer]Hawk/resources/getResource/61/bopi461m-4123-92k2-42 Completed 09/23/2018 Visit Diagnosis Plan: Gastro-esophageal reflux disease without esophagitis Discussion: Start omeprazole ICD-9 : 530.81 ICD-10 : K21.9 09/06/2018 Visit Diagnosis Plan: Dysphagia, pharyngoesophageal ph ase Discussion: Referral for EGD ICD-9 : 787.24 ICD-10 : R13.14 09/06/2018 Appointment: Janneth Shrestha WPtel: [facility] [address] ACUTE ILLNESS 09/06/2018 Patient Education: omeprazole- [employer] Coupon [id number] https://www.Ansira/[employer]Hawk/resources/getResource/61/517km932-79y7-197h-42 Completed 09/06/2018 Care Plan: Referral Order SNOMED-CT : 30 7526485 Pending 09/06/2018 Visit Diagnosis Plan: Tinea corporis Discussion: nysta tin to be used bid until rash gone and then an additional 2 days. diflucan every 3 days for 3 doses. keep area clean and dry with no moisturizers. call office if no improvement in 2 weeks or if worsening. ICD-9 : 110.5 ICD-10 : B35.4 07/15/2018 Appointment: Vania García [address] [place] [address] ACUTE ILLNESS 07/15/2018 Patient Education: nystatin- [employer] Coupon [id number] https://www.[employer]Hawk.CleanEdison/samplemd/resources/getResource/61/92pby313-l7gg-27ea-5t Completed 07/15/2018 Patient Education: Plavix- [employer] Coupon [id number] https://www.[employer]Hawk.CleanEdison/samplemd/resources/getResource/61/25zb5w23-v04v-87aw-28 fa-a180l4831205.pdf Completed 07/15/2018 Patient Education: cyclobenzaprine- Opt[employer]RX Coupon 91203045 https://www.Ansira/sampleZBD Displays/resources/getResource/61/85699l0x-1x09-32s1-vz Completed 07/15/2018 Visit Diagnosis Plan: Cellulitis of [...] ICD-10 : L03.032 2018 Appointment: Mandy Hollins [address] [place] [address] FOLLOW UP 2018 Patient Education: mupirocin- [employer] Coupon 528686 [id number] https://www.[employer]Hawk.CleanEdison/samplemd/resources/getResource/61/e6iw97y5-2463-4997-4f Completed 2018 Visit Diagnosis Plan: Cellulitis of [...] : R20.9 04/14/2018 Appointment: Mandy Hollins [address] [id number] FOLLOW UP 04/14/2018 Visit Diagnosis Plan: Cellulitis [...] ICD-10 : G47.00 03/18/2018 Appointment: Vania García [address] [place], [place] [id number] ACUTE ILLNESS 03/18/2018 Patient Education: cyclobenzaprine- [employer] Coupon [id number] https://www.[employer]isionHawk.com/samplemd/resources/getResource/61/1130j192-3in4-965u-m5 Completed 03/18/2018 Visit Diagnosis Plan: Other postprocedur al complications and disorders of the circulatory system, not elsewhere classified Discussion: discussed with dr. shrestha and patient was instructed to contact [facility] due to uncontrolled pain, continued [...] ICD-10 : R21 01/26/2018 Appointment: Vania García [address] [place], [place] [id number] Hospital Follow Up 01/26/2018 Appointment: Janneth Shrestha WPtel: [phone] [id number] [place] 2nd LM NO SHOW 01/06/2018 Visit [...] ICD-10 : I97.89 12/22/2017 Appointment: Vania García [address] [place], [place] [id number] ACUTE ILLNESS 12/22/2017 Visit Diagnosis Plan: Unspecified [...] : 461.9 ICD-10 : J01.90 10/06/2017 Appointment: Vnaia García [address] [facility] ACUTE ILLNESS 10/06/2017 Patient Education: Patient Medication Summary Completed 10/06/2017 Appointment: Vania García [address] [place], [place] [id number] ER Follow UP 08/17/2017 Appointment: Vania García [address] [place], [place] [phone] CANCELED 07/03/2017 Appointment: [facility] [facility] [place] canceled at 8:05 this morning. [...] T44.3X1S 02/03/2017 Appointment: Jann[facility]rest[facility]el[facility] [address] [facility] [facility] 02/03/2017 Patient Education: [...] Discussion: re isabella sent for dr rose cafeteria manager. ICD-9 : 729.5 ICD-10 : M79.672 11/25/2016 Visit Diagnosis Plan: Insomnia, unspecified Recommenda tions: resolved with lunesta. continue taking as prescribed. ICD-9 : 780.52 ICD-10 : G47.00 11/25/2016 Appointment: Vania García [address] [place], [place] [phone] FOLLOW UP 11/25/2016 Patient Education: Patient Medication [...] ICD-10 : G47.00 11/14/2016 Appointment: Vania García [address] [facility] ACUTE ILLNESS 11/14/2016 Patient Education: Patient Medication Summary Completed 11/14/2016 Visit Diagnosis Plan: Acute upper respiratory infectio n, unspecified Discussion: Rxs as above Continue OTC and supportive meds Encouraged smoking cessation Follow up PRN ICD-9 : 465.9 ICD-10 : J06.9 04/02/2016 Appointment: Ester Grande [address] [facility] ACUTE ILLNESS 04/02/2016 Patient Education: Patient Medication Summary Completed 04/02/2016 Visit Plan: Rxs as above Supportive care reviewed Follow up PRN 11/29/2015 Appointment: Ester Grande [address] [facility] 11/27 confirmed~sl ACUTE ILLNESS 11/29/2015 Patient Education: [...] for pain 06/27/2015 Appointment: Ester Grande [address] [facility] 06/25 ~ 06/26 phone not on~ FOLLOW UP 06/27/2015 Patient Education: Patient Medication Summary Completed 06/27/2015 Care Plan: X-RAY EXAM RIBS UNI 2 VIEWS L OINC : 07943-1 Pending 06/27/2015 Ref[facility]: [facility] [facility] with [facility] Appointment Re quested 06/26/2015 Referral: Cameron Khanna WPtel: [address] [facility] Referral Initiated 06/11/2015 Referral: Marco Antonio Green WPtel: [address] [id number] 05/30/15 Needs to be there at pre op time per ~ Initiated 06/04/2015 Visit Plan: Will get all necessary refer rals set up - CTS, Uro and G/S Swallow study and routine labs ordered Will further investigate left leg pain with EMG if not cardio related 05/24/2015 Appointment: Ester Grande [address] [facility] [place] NEW PATIENT 05/24/2015 Patient Education: Patient Medication Summary Completed 05/24/2015 Care Plan: Referral Order SNOMED-CT : 30 8362066 Pending 05/24/2015 Care Plan: Referral Order SNOMED-CT : 30 7891855 Pending 05/24/2015 Care Plan: Referral Order SNOMED-CT : 30 4926684 Pending 05/24/2015 Referral: Sudheer Gann WPtel: [address] [facility] [place] Referral Appointment Requested Referral: Alfonzo Andujar WPtel: [address] [facility] [place] Referral Initiated Referral: [facility] [address] [id number] [place] Referral Completed Referral: Cameron Khanna WPtel: [phone] [place] [address] [place] Referral Appointment Requested Referral: Brianna Rose WPtel: [address] [facility] [place] Referral Initiated Referral: Héctor Woodard WPtel: [address] [facility] [place] 05/24/15 [facility] office suggested he see another card. ~sl Initiated Referral: Alfonzo Andujar WPtel: [address] [facility] [place] Referral Appointment Requested Referral: Marco Antonio Green WPtel: [address] [id number] [place] Referral Appointment Requested Instructions Comment . [...]
--- OUTSIDE RECORDS SUMMARY | 2019-09-02 12:12 | XMS REPORT | CCD ---
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 Role Phone Janneth Shrestha D.O., PP Unavailable CCM Unavailable Summary Purpose Interface Exchange Insurance Providers Payer name Policy type / Coverage type Covered alliance party ID Effective Begin Date Effective End Date Blue Cross Blue Shield Blue Cross/Blue Shield [id number] Unknown Family History Family History data not found Social History Social History Element Codes Description Effective Dates Marital status Unknown 05/24/2015 Number of children Unknown 2 05/24/2015 Employment Unknown Currently employed 05/24/[address]: 80166652 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 [...] Fill Instructions Levaquin 500 mg tablet RxNorm: 225480 1 Tablet(s) Oral QD 08/18/2019 08/25/2019 Active metoprolol succinate ER 50 mg tablet,extended release 24 hr RxNorm: 937641 1 Tablet(s) Oral QD 08/01/2019 08/18/2019 Inactive cyclobenzaprine 10 mg tablet RxNorm: 540731 TAKE ONE TA BLET BY MOUTH AT BEDTIME NEEDED 07/12/2019 No Stop Date Active cephalexin 500 mg tablet RxNorm: 352735 1 Tablet(s) Oral three times a day 07/05/2019 07/12/2019 Inactive cyclobenzaprine 10 mg tablet RxNorm: 984597 TAKE ONE TA BLET BY MOUTH AT BEDTIME NEEDED 05/20/2019 07/11/2019 Inactive metformin ER 1,000 mg tablet,extended release 24hr RxNorm: 1 943126 1 Tablet(s) Oral two times a day replaces 500mg dose 05/17/2019 11/13/2019 Active [AttnRPh: Saving apply/adjudicate RxGRP:[id number] RxBIN:[id number] RxPCN: ID#:[id number]] ReliOn Prime Test Strips RxNorm: 1 Unit [...] 05/01/2019 Inactive Plavix 75 mg tablet RxNorm: 222414 TAKE ONE TABLET BY MOUTH DAILY 0 04/25/2019 04/26/2019 Inactive Plavix 75 mg tablet RxNorm: 739526 TAKE ONE TABLET BY MOUTH DAILY 0 04/25/2019 04/24/2019 Inactive Xarelto 20 mg tablet RxNorm: 8202964 1 Tablet(s) Oral QD 04/25/2019 0 07/04/2019 Inactive amiodarone 200 mg tablet RxNorm: 887846 1 Tablet(s) Oral QD 020 07/04/2019 Inactive metformin ER 500 mg 24 hr tablet,extended release RxNorm: 18 65490 1 Tablet(s) Oral two times a day 04/25/2019 05/16/2019 Inactive prednisone 20 mg tablet RxNorm: 781365 1 Tablet(s) Oral two jn es a day 04/25/2019 05/01/2019 Inactive aspirin 81 mg tablet,delayed release RxNorm: 956440 1 Tablet(s) Oral QD 04/11/2019 No Stop Date Active pantoprazole 40 mg tablet,delayed release RxNorm: 292148 1 Tabl et(s) Oral QAM 04/11/2019 08/18/2019 Inactive Vitamin C 1,000 mg tablet RxNorm: 695202 1 Tablet(s) Oral QD 201908/18/2019 Inactive Xarelto 15 mg tablet RxNorm: 0802648 1 Tablet(s) Oral QD 04/11/2019 0 04/24/2019 Inactive metformin ER 500 mg 24 hr tablet,extended release RxNorm: 18 80975 1 Tablet(s) Oral QD 04/11/2019 04/24/2019 Inactive cephalexin 500 mg capsule RxNorm: 604887 1 Capsule(s) Oral thre e times a day 04/11/2019 04/18/2019 Inactive metoprolol succinate ER 50 mg tablet,extended release 24 hr RxNorm: 083211 1 Tablet(s) Oral QD replaces 25mg dose 04/11/2019 05/01/2019 Inactive cyclobenzaprine 10 mg tablet RxNorm: 246112 TAKE ONE TA BLET BY MOUTH EVERY NIGHT AT BEDTIME NEEDED 03/11/2019 No Stop Date Active mupirocin 2 % topical ointment RxNorm: 927512 Applicati on Topical two times a day 03/01/2019 04/10/2019 Inactive metoprolol succinate ER 25 mg tablet,extended release 24 hr RxNorm: 162946 1 Tablet(s) Oral QD 03/01/2019 04/24/2019 Inactive Bactrim DS 800 mg-160 mg tablet RxNorm: 394312 1 Tablet(s) Oral two times a day 03/01/2019 03/11/2019 Inactive cyclobenzaprine 10 mg tablet RxNorm: 048311 TAKE ONE TA BLET BY MOUTH EVERY NIGHT AT BEDTIME NEEDED 01/10/2019 03/10/2019 Inactive Plavix 75 mg tablet RxNorm: 868455 TAKE ONE TABLET BY MOUTH DAILY 1 03/12/2018 04/24/2019 Inactive omeprazole 40 mg capsule,delayed release RxNorm: 784607 TAKE ONE CAPSULE BY MOUTH EVERY NIGHT AT BEDTIME FOR REFLUX 01/10/2019 05/16/2019 Inactive tramadol 50 mg tablet RxNorm: 665708 1 Tablet(s) Oral f our times a day as needed 01/03/2019 01/03/2019 Inactive doxycycline monohydrate 100 mg capsule RxNorm: 2986273 1 Capsule(s) Oral two times a day 11/22/2018 12/13/2018 Inactive prednisone 20 mg tablet RxNorm: 603988 1 Tablet(s) Oral two jn es a day 11/22/2018 11/29/2018 Inactive Levaquin 750 mg tablet RxNorm: 284074 Tablet(s) Oral 11/18/201802/28 Inactive prednisone 20 mg tablet RxNorm: 854146 1 Tablet(s) Oral two jn es a day 11/18/2018 11/21/2018 Inactive tramadol 50 mg tablet RxNorm: 136374 Tablet(s) Oral 11/18/20182018 Inactive doxycycline monohydrate 100 mg capsule RxNorm: 2833254 1 Capsule(s) Oral two times a day 11/18/2018 11/21/2018 Inactive Plavix 75 mg tablet RxNorm: 871059 TAKE ONE TABLET BY MOUTH DAILY 0 11/10/2018 01/08/2019 Inactive clindamycin HCl 300 mg capsule RxNorm: 549995 1 Capsule (s) Oral three times a day 11/09/2018 11/19/2018 Inactive Keflex 500 mg capsule RxNorm: 057637 1 Capsule(s) PO BID 10/13/2018 0 10/22/2018 Inactive Medrol (Brenden) 4 mg tablets in a dose pack RxNorm: 204187 Tablet(s) take as directed PO 09/23/2018 10/12/2018 Inactive omeprazole 40 mg capsule,delayed release RxNorm: 296899 1 Capsule(s) PO QHS for reflux 09/06/2018 11/04/2018 Inactive Diflucan 150 mg tablet RxNorm: 931421 1 Tablet(s) PO Q72H 07/15/2018 09/05/2018 Inactive cyclobenzaprine 10 mg tablet RxNorm: 902249 1 Tablet(s) PO QHS as needed 07/15/2018 10/12/2018 Inactive nystatin 100,000 unit/gram topical cream RxNorm: 474196 1 Gram( s) TOP BID 07/15/2018 09/05/2018 Inactive Plavix 75 mg tablet RxNorm: 371981 1 Tablet(s) PO QD 07/15/201810/12 Inactive cyclobenzaprine 10 mg tablet RxNorm: 850138 1 Tablet(s) PO QHS as needed 06/10/2018 06/09/2018 Inactive cyclobenzaprine 10 mg tablet RxNorm: 249664 TAKE ONE TA BLET BY MOUTH EVERY NIGHT AT BEDTIME NEEDED 05/10/2018 06/10/2018 Inactive mupirocin 2 % topical ointment RxNorm: 156036 1 Application TOP BID 2018 05/25/2018 Inactive 22 gram cyclobenzaprine 10 mg tablet RxNorm: 703763 1 Tablet(s) PO QHS as needed 04/14/2018 06/09/2018 Inactive doxycycline hyclate 100 mg tablet RxNorm: 0180004 1 Tablet(s) PO BI D 04/14/2018 04/23/2018 Inactive cyclobenzaprine 10 mg tablet RxNorm: 516813 1 Tablet(s) PO QHS as needed 04/07/2018 04/13/2018 Inactive Bactrim DS 800 mg-160 mg tablet RxNorm: 948863 1 Tablet(s) PO BID 0 03/18/2018 03/27/2018 Inactive cyclobenzaprine 10 mg tablet RxNorm: 537508 1 Tablet(s) PO QHS as needed 03/18/2018 04/06/2018 Inactive triamcinolone acetonide 0.1 % topical cream RxNorm: 5601133 APPLY TO AFFECTED AREA(S) TWO TIMES A DAY 02/03/2018 02/12/2018 Inactive triamcinolone acetonide 0.1 % topical cream RxNorm: 0402432 1 Application TOP BID 01/26/2018 02/02/2018 Inactive Medrol (Brenden) 4 mg tablets in a dose pack RxNorm: 725031 TAKE BY MOUTH INSTRUCTED - PER PACKAGE INSTRUCTIONS 12/11/2017 12/16/2017 Inactive Medrol (Brenden) 4 mg tablets in a dose pack RxNorm: 804384 Tablet(s) P O 10/06/2017 12/10/2017 Inactive Lunesta 3 mg tablet RxNorm: 455210 1 Tablet(s) PO QHS 11/25/201608/2016 Inactive Lunesta 3 mg tablet RxNorm: 304250 1 Tablet(s) PO QHS 11/14/201610/2016 Inactive Bactrim DS 800 mg-160 mg tablet RxNorm: 211685 1 Tablet(s) PO BID 0 11/14/2016 11/23/2016 Inactive Epi E-Z Pen 0.3 mg/0.3 mL injection, auto-injector RxNorm: 1 323881 Milliliter(s) IM Use as Directed 06/25/2016 09/05/2018 Inactive amoxicillin 875 mg tablet RxNorm: 441581 1 Tablet(s) PO BID 017 04/11/2016 Inactive prednisone 20 mg tablet RxNorm: 540293 1 Tablet(s) PO BID 04/02/2016 04/06/2016 Inactive azithromycin 250 mg tablet RxNorm: 801228 2 Tablet(s) P O on day one then 1 tab on days 2-5 11/29/2015 11/28/2015 Inactive Medrol (Brenden) 4 mg tablets in a dose pack RxNorm: 722120 Take as directed 11/29/2015 11/13/2016 Inactive meloxicam 15 mg tablet RxNorm: 146176 1 Tablet(s) PO QD 07/02/2015 Inactive Chantix Starting Month Box 0.5 mg (11)-1 mg (42) table ts in dose pack RxNorm: 861191 Tablet(s) PO As Directed 06/20/2015 07/10/2015 Inactive omeprazole 40 mg capsule,delayed release RxNorm: 878384 1 Capsu le(s) PO QD 05/31/2015 11/13/2016 Inactive omeprazole 40 mg capsule,delayed release RxNorm: 605188 1 Capsu le(s) PO QD 05/31/2015 05/30/2015 Inactive Multivitamin And Mineral oral RxNorm: oral No Start Date Active Wellbutrin SR 150 mg tablet,sustained-release RxNorm: 087307 1 Tablet(s) PO BID No Start Date 11/13/2016 Inactive gabapentin 100 mg capsule RxNorm: 963215 1 Capsule(s) PO TID No Sta rt Date 03/17/2018 Inactive Chantix Starting Month Box 0.5 mg (11)-1 mg (42) table ts in dose pack RxNorm: 336668 Tablet(s) PO As Directed No Start Date 06/19/2015 Inactive Eliquis 5 mg tablet RxNorm: 7204838 1 Tablet(s) PO BID No Start Date 03/17/2018 Inactive Lactobacillus acidophilus-Bifidobacterium longum oral RxNorm: oral No Start Date 07/04/2019 Inactive aspirin 325 mg tablet RxNorm: 969923 1 Tablet(s) PO QD No Start Date 11/13/2016 Inactive clindamycin HCl 300 mg capsule RxNorm: 238560 2 Capsule(s) PO Q8H N o Start Date 03/17/2018 Inactive Fish Oil 1,000 mg (120 mg-180 mg) capsule RxNorm: 1 Caps ule(s) PO QD No Start Date 09/05/2018 Inactive aspirin 81 mg tablet RxNorm: 054334 1 Tablet(s) PO QD No Start Date 1 03/28/2017 Inactive Fish Oil 1,000 mg capsule RxNorm: 1 Capsule(s) PO QD No Start Date 11/13/2016 Inactive Baby Aspirin 81 mg chewable tablet RxNorm: 577462 1 Tablet(s) P O BID No Start Date 02/02/2017 Inactive Xarelto 10 mg tablet RxNorm: 9745017 1 Tablet(s) PO QD No Start Date 01/25/2018 Inactive tramadol 50 mg tablet RxNorm: 915319 1-2 Tablet(s) PO Q6H No Start Date 03/17/2018 Inactive meloxicam 15 mg tablet RxNorm: 870713 1 Tablet(s) PO QD No Start Da te 07/01/2015 Inactive Epi E-Z Pen 0.3 mg/0.3 mL injection, auto-injector RxNorm: 1 878243 Milliliter(s) IM Use as Directed No Start Date 06/24/2016 Inactive Plavix 75 mg tablet RxNorm: 854598 1 Tablet(s) PO QD No Start Date Inactive Medication Administered No Medication Administered data Immunizations No Immunization data Results Observation Observation Code Item Item Code Result Date S ervice Location COMPREHENSIVE METABOLIC 82409 AST 25 U/L 2018 Unknown COMPREHENSIVE METABOLIC 06356 ALT 28 U/L 2018 Unknown COMPREHENSIVE METABOLIC 68288 BUN 13 mg/dL 2018 Unknown COMPREHENSIVE METABOLIC 56729 ALBUMIN 4.2 g/dL 2018 Unknown COMPREHENSIVE METABOLIC 23633 CHLORIDE 104 mmol/L 11/09 Unknown COMPREHENSIVE METABOLIC 20652 Bili Total 0.5 mg/dL 11/09 Unknown COMPREHENSIVE METABOLIC 42839 ALK PHOS 72 U/L 2018 Unknown COMPREHENSIVE METABOLIC 30467 SODIUM 139 mmol/L 11/09 Unknown COMPREHENSIVE METABOLIC 59886 CREATININE 0.98 mg/dL 10/18 Unknown COMPREHENSIVE METABOLIC 62258 CALCIUM 9.1 mg/dL 2018 Unknown COMPREHENSIVE METABOLIC 92583 POTASSIUM 3.7 mmol/L 11/09 Unknown COMPREHENSIVE METABOLIC 73979 Total Protein 7.2 g/dL Unknown COMPREHENSIVE METABOLIC 15115 Glucose 137 mg/dL 2018 Unknown COMPREHENSIVE METABOLIC 42500 Bicarbonate 24 mmol/L 10/18 Unknown COMPREHENSIVE METABOLIC 68536 AGAP 11 mmol/L 2018 Unknown COMPLETE BLOOD COUNT 6646801 WBC 4.6 10e9/L 11/10/19 19 Unknown COMPLETE BLOOD COUNT [id number] RBC 4.88 10e12/L 2018 Unknown COMPLETE BLOOD COUNT 7554985 HEMOGLOBIN 14.7 g/dL 11/10/19 19 Unknown COMPLETE BLOOD COUNT [id number] HEMATOCRIT 43.7 % 11/10/19 19 Unknown COMPLETE BLOOD COUNT 3181588 MCV 89.5 fL 9 Unknown COMPLETE BLOOD COUNT 6263662 MCH 30.1 pg 9 Unknown COMPLETE BLOOD COUNT 3652314 MCHC 33.6 g/dL 9 Unknown COMPLETE BLOOD COUNT 1690966 PLATELET COUNT 179 10e9/L Unknown COMPLETE BLOOD COUNT 7830127 Mean Plt Volume 11.6 fL Unknown COMPLETE BLOOD COUNT 1383944 Neut Auto 55.5 % 9 Unknown COMPLETE BLOOD COUNT 1170804 Lymph Auto 28.7 % 11/10/19 19 Unknown COMPLETE BLOOD COUNT 3468556 [place] Auto 7.9 % 9 Unknown COMPLETE BLOOD COUNT 6299536 RDW 13.2 % 9 Unknown COMPLETE BLOOD COUNT 0694988 Eos Auto 7.7 % 9 Unknown COMPLETE BLOOD COUNT 4025334 Baso Auto 0.2 % 9 Unknown COMPLETE BLOOD COUNT 9998223 Neutrophil Abs 2.55 10e9/L Unknown COMPLETE BLOOD COUNT 6138092 Lymphocyte Abs 1.32 10e9/L Unknown COMPLETE BLOOD COUNT [id number] Monocyte Abs 0.36 10e9/L 10/18 Unknown COMPLETE BLOOD COUNT [id number] Eosinophil Abs 0.35 10e9/L Unknown COMPLETE BLOOD COUNT 9677826 RDW-SD 42.2 fL 9 Unknown COMPLETE BLOOD COUNT 1468484 Basophil Abs 0.01 10e9/L 10/18 Unknown LIP[facility] GROUP 98774 Cholesterol 205 mg/dL 11/09/2018 Unkno wn LIPID GROUP 49972 Triglyceride 268 mg/dL 11/09/2018 Unkn own LIPID GROUP 68827 HDL CHOLESTEROL 35 mg/dL 11/09/2018 U nknown LIPID GROUP 87610 Chol/HDL Ratio 5.86 ratio 11/09/2018 U nknown LIPID GROUP 15150 NON-HDL Chol 170 mg/dL 11/09/2018 Unkn own LIP[facility] GROUP 22188 LDL Cholesterol 116 mg/dL 11/09/2018 U nknown PT [id number] PT 12.7 Seconds 11/09/2018 Unknow n PT 5890717 INR 0.9 11/09/2018 Unknown GFR CALC 4591538 GFR Non Afr Amr >60 mL/min 11/09/2018 Un known GFR CALC 6639175 GFR Afr Amr >60 mL/min 11/09/2018 Unknow n ACT PARTIAL THRMBOPLASTIN TIME 54356 PTT 34.0 [place] nds 11/09/2018 Unknown LIPID GROUP 49371 Cholesterol 186 mg/dL 2018 Unkno wn LIPID GROUP 71752 Triglyceride 229 mg/dL 2018 Unkn own LIPID GROUP 36551 HDL CHOLESTEROL 36 mg/dL 2018 U nknown LIPID GROUP 52783 Chol/HDL Ratio 5.17 ratio 2018 U nknown LIPID GROUP 37351 NON-HDL Chol 150 mg/dL 2018 Unkn own LIPID GROUP 47610 LDL Cholesterol 104 mg/dL 2018 U nknown GFR CALC 4343688 GFR Non Afr Amr >60 mL/min 2018 Un known GFR CALC 4618699 GFR Afr Amr >60 mL/min 2018 Unknow n COMPREHENSIVE METABOLIC 20370 AST 23 U/L 2018 Unknown COMPREHENSIVE METABOLIC 71833 ALT 22 U/L 2018 Unknown COMPREHENSIVE METABOLIC 48675 BUN 15 mg/dL 2018 Unknown COMPREHENSIVE METABOLIC 78242 ALBUMIN 4.1 g/dL 2018 Unknown COMPREHENSIVE METABOLIC 25453 CHLORIDE 106 mmol/L 05/06 Unknown COMPREHENSIVE METABOLIC 22798 Bili Total 0.6 mg/dL 05/06 Unknown COMPREHENSIVE METABOLIC 23663 ALK PHOS 61 U/L 2018 Unknown COMPREHENSIVE METABOLIC 94444 SODIUM 141 mmol/L 05/06 Unknown COMPREHENSIVE METABOLIC 49713 CREATININE 0.91 mg/dL 04/17 Unknown COMPREHENSIVE METABOLIC 02280 CALCIUM 9.2 mg/dL 2018 Unknown COMPREHENSIVE METABOLIC 44490 POTASSIUM 3.8 mmol/L 05/06 Unknown COMPREHENSIVE METABOLIC 57718 Total Protein 7.0 g/dL Unknown COMPREHENSIVE METABOLIC 59758 Glucose 97 mg/dL 2018 Unknown COMPREHENSIVE METABOLIC 08779 Bicarbonate 28 mmol/L 04/17 Unknown COMPREHENSIVE METABOLIC 05558 AGAP 7 mmol/L 2018 Unknown THYROID STIMULATING HORMONE 92617 TSH 2.094 uIU/mL 2018 Unknown COMPLETE BLOOD COUNT 5832559 WBC 5.5 10e9/L 05/07/19 19 Unknown COMPLETE BLOOD COUNT 8333075 RBC 4.61 10e12/L 2018 Unknown COMPLETE BLOOD COUNT 4464287 HEMOGLOBIN 13.6 g/dL 05/07/19 19 Unknown COMPLETE BLOOD COUNT 6759115 HEMATOCRIT 40.0 % 05/07/19 19 Unknown COMPLETE BLOOD COUNT 1336667 MCV 86.8 fL 9 Unknown COMPLETE BLOOD COUNT 3087150 MCH 29.5 pg 9 Unknown COMPLETE BLOOD COUNT 8248914 MCHC 34.0 g/dL 9 Unknown COMPLETE BLOOD COUNT 2054554 PLATELET COUNT 197 10e9/L Unknown COMPLETE BLOOD COUNT 4031100 Mean Plt Volume 10.8 fL Unknown COMPLETE BLOOD COUNT 5930987 Neut Auto 49.6 % 9 Unknown COMPLETE BLOOD COUNT 9620626 Lymph Auto 36.8 % 05/07/19 19 Unknown COMPLETE BLOOD COUNT 4692919 [place] Auto 8.1 % 9 Unknown COMPLETE BLOOD COUNT 2358682 RDW 15.3 % 9 Unknown COMPLETE BLOOD COUNT 6744016 Eos Auto 5.3 % 9 Unknown COMPLETE BLOOD COUNT 2740221 Baso Auto 0.2 % 9 Unknown COMPLETE BLOOD COUNT 9096976 Neutrophil Abs 2.73 10e9/L Unknown COMPLETE BLOOD COUNT 2613391 Lymphocyte Abs 2.02 10e9/L Unknown COMPLETE BLOOD COUNT 2299622 Monocyte Abs 0.45 10e9/L 04/17 Unknown COMPLETE BLOOD COUNT 7048004 Eosinophil Abs 0.29 10e9/L Unknown COMPLETE BLOOD COUNT 4731788 RDW-SD 47.9 fL 9 Unknown COMPLETE BLOOD COUNT [id number] Basophil Abs 0.01 10e9/L 04/17 Unknown Procedures Procedure Codes Date CEFTRIAXONE SODIUM INJECTION CPT-4: J0696 11/09/2018 THER/PROPH/DIAG INJ SC/IM CPT-4: 09158 11/09/2018 ROUTINE VENIPUNCTURE CPT-4: 36978 11/09/2018 COMPREHEN METABOLIC PANEL CPT-4: 96308 11/09/2018 COMPLETE CBC W/AUTO DIFF WBC CPT-4: 82942 11/09/2018 LIPID PANEL CPT-4: 14085 11/09/2018 PROTHROMBIN TIME CPT-4: 88582 11/09/2018 THROMBOPLASTIN TIME PARTIAL CPT-4: 29551 11/09/2018 THER/PROPH/DIAG INJ SC/IM CPT-4: 48155 09/23/2018 KETOROLAC TROMETHAMINE INJ CPT-4: J1885 09/23/2018 ROUTINE VENIPUNCTURE CPT-4: 10611 2018 ASSAY THYROID STIM HORMONE CPT-4: 92132 2018 COMPREHEN METABOLIC PANEL CPT-4: 02917 2018 COMPLETE CBC W/AUTO DIFF WBC CPT-4: 68172 2018 LIPID PANEL CPT-4: 93380 2018 CEFTRIAXONE SODIUM INJECTION CPT-4: J0696 04/14/2018 THER/PROPH/DIAG INJ SC/IM CPT-4: 07607 04/14/2018 CEFTRIAXONE SODIUM INJECTION CPT-4: J0696 03/18/2018 THER/PROPH/DIAG INJ SC/IM CPT-4: 83924 03/18/2018 THER/PROPH/DIAG INJ SC/IM CPT-4: 46086 01/26/2018 KETOROLAC TROMETHAMINE INJ CPT-4: J1885 01/26/2018 CEFTRIAXONE SODIUM INJECTION CPT-4: J0696 12/22/2017 THER/PROPH/DIAG INJ SC/IM CPT-4: 85162 12/22/2017 ROUTINE VENIPUNCTURE CPT-4: 53948 11/14/2016 COMPLETE CBC W/AUTO DIFF WBC CPT-4: 26889 11/14/2016 PT/PTT CPT-4: 2020054 11/14/2016 Vital Signs Date Vital 08/18/2019 Blood [...] 1: 134/82 Code: 8480-6 BMI: 23.9 Code: 10919-6 Heart Rate 1: 100 bpm Height: 6'4" [...] 1: 138/70 Code: 8480-6 BMI: 22.6 Code: 79115-7 Heart Rate 1: 97 bpm Height: 6'4" [...] 1: 142/80 Code: 8480-6 BMI: 20.9 Code: 37677-0 Heart Rate 1: 108 bpm Height: 6'4" Respiratory Rate: 20 bpm SpO2: 97% Tempera ture: 36.6 (C) / 97.9 (F) Weight: 172 lbs 01/26/2018 Blood Pressure 1: 130/82 Code: 8480-6 Heart Rate 1: 98 bpm Respiratory Rate: 18 bpm SpO2: 99% Temperature: 35.7 (C) / 96.3 (F) We ight: 175 lbs 12/22/2017 Blood Pressure 1: 124/68 Code: 8480-6 BMI: 22.3 Code: 73456-1 Heart Rate 1: 100 bpm Height: 6'4" Respiratory Rate: 20 bpm SpO2: 98% Tempera ture: 36.7 (C) / 98.0 (F) Weight: 183 lbs 10/06/2017 Blood Pressure 1: 130/86 Code: 8480-6 BMI: 21.1 Code: 35102-3 Heart Rate 1: 92 bpm Height: 6'4" Respiratory Rate: 18 bpm SpO2: 98% Tempera ture: 36.9 (C) / 98.5 (F) Weight: 173 lbs 02/03/2017 Blood Pressure 1: 144/92 Code: 8480-6 BMI: 20.8 Code: 67664-1 Heart Rate 1: 88 bpm Height: 6'4" Respiratory Rate: 20 bpm SpO2: 97% Tempera ture: 36.7 (C) / 98.1 (F) Weight: 171 lbs 11/25/2016 Blood Pressure 1: 126/84 Code: 8480-6 Heart Rate 1: 76 bpm Respiratory Rate: 20 bpm SpO2: 96% Temperature: 36.9 (C) / 98.4 (F) We ight: 170 lbs 11/14/2016 Blood Pressure 1: 126/82 Code: 8480-6 BMI: 20.7 Code: 33529-3 Heart Rate 1: 86 bpm Height: 6'4" Respiratory Rate: 18 bpm SpO2: 96% Tempera ture: 35.8 (C) / 96.5 (F) Weight: 170 lbs 04/02/2016 Blood Pressure 1: 124/78 Code: 8480-6 Heart Rate 1: 88 bpm Respiratory Rate: 24 bpm SpO2: 97% Temperature: 36.1 (C) / 97.0 (F) We ight: 161 lbs 11/29/2015 Blood Pressure 1: 124/68 Code: 8480-6 BMI: 19.2 Code: 20238-8 Heart Rate 1: 94 bpm Height: 6'4" Respiratory Rate: 18 bpm SpO2: 97% Tempera ture: 36.1 (C) / 97.0 (F) Weight: 158 lbs 06/27/2015 Blood Pressure 1: 128/78 Code: 8480-6 BMI: 18.7 Code: 11502-5 Heart Rate 1: 72 bpm Height: 6'4" Respiratory Rate: 22 bpm SpO2: 98% Tempera ture: 35.9 (C) / 96.6 (F) Weight: 154 lbs 05/24/2015 Blood Pressure 1: 112/78 Code: 8480-6 BMI: 19.7 Code: 08427-1 Heart Rate 1: 78 bpm Height: 6'4" [...] care Encounters Encounter Performer Location Codes Date ([id number]) OFFICE/OUTPATIENT VISIT EST Diagnosis: Puncture wound of right foot[ICD10: S91.331A] Diagnosis: DM w/o complication type II, uncontrolled[ICD10: E11.65] Janneth SHRETSHA [employer] CPT-4: 05976 08/18/2019 ([id number]) OFFICE/OUTPATIENT VISIT EST Diagnosis: Other specified local infections of the skin and subcutaneous tissue[ICD10: L08.89] Diagnosis: DM w/o complication type II, uncontrolled[ICD10: E11.65] Diagnosis: Right leg DVT[ICD10: I82.401] Janneth WARD [employer] [email or web address] CPT-4: 85293 07/05/2019 ([id number]) OFFICE/OUTPATIENT VISIT EST Diagnosis: 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, implant, or graft[ICD10: T85.818A] Diagnosis: DM w/o complication type II, uncontrolled[ICD10: E11.65] Janenth WARD [employer] [employer] CPT-4: 54629 05/17/2019 ([id number]) OFFICE/OUTPATIENT VISIT EST Diagnosis: Acute dermatitis[ICD10: L30.9] Diagnosis: DM w/o complication type II, uncontrolled[ICD10: E11.65] Diagnosis: Right leg DVT[ICD10: I82.401] Janneth WARD [employer] CPT-4: 75177 05/02/2019 ([id number]) OFFICE/OUTPATIENT VISIT EST Diagnosis: DM w/o complication type II, uncontrolled[ICD10: E11.65] Diagnosis: Allergic dermatitis[ICD10: L23.9] Diagnosis: Right leg DVT[ICD10: I82.401] Diagnosis: Paroxysmal atrial fibrillation[ICD10: I48.0] Diagnosis: Right calf pain[ICD10: M79.661] Janneth WARD [employer] CPT-4: 66426 04/25/2019 ([id number]) OFFICE/OUTPATIENT VISIT EST Diagnosis: DM w/o complication type II, uncontrolled[ICD10: E11.65] Diagnosis: 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, implant, or graft[ICD10: T85.818A] Diagnosis: Essential hypertension[ICD10: I10] Janneth SHRESTHA [facility] CPT-4: 80731 04/11/2019 ([id number]) OFFICE/OUTPATIENT VISIT EST Diagnosis: Sinus tachycardia[ICD10: R00.0] Diagnosis: Folliculitis[ICD10: L73.9] [facility] 87534 03/01/2019 ([id number]) OFFICE/OUTPATIENT VISIT EST Diagnosis: Cellulitis of left lower limb[ICD10: L03.116] Diagnosis: Tendinitis of left peroneus longus tendon[ICD10: M76.72] Janneth CLARK [employer] [facility] CPT-4: 89421 11/18/2018 ([id number]) OFFICE/OUTPATIENT VISIT EST Diagnosis: Cellulitis of left foot[ICD10: L03.116] Diagnosis: Spontaneous ecchymoses[ICD10: R23.3] Diagnosis: Venous insufficiency (chronic) (peripheral)[ICD10: I87.2] Diagnosis: Mixed hyperlipidemia[ICD10: E78.2] Vania CLARK [employer] [facility] CPT-4: 66261 11/09/2018 ([id number]) OFFICE/OUTPATIENT VISIT EST Diagnosis: Venous insufficiency (chronic) (peripheral)[ICD10: I87.2] Diagnosis: Cellulitis of left lower limb[ICD10: L03.116] Diagnosis: Pain in right foot[ICD10: M79.671] Vania CLARK [employer] CPT-4: 82038 10/13/2018 ([id number]) OFFICE/OUTPATIENT VISIT EST Diagnosis: Low back pain[ICD10: M54.5] Vania Tayolr [facility] CPT-4: 40629 09/23/2018 ([id number]) OFFICE/OUTPATIENT VISIT EST Diagnosis: Gastro-esophageal reflux disease without esophagitis[ICD10: K21.9] Diagnosis: Dysphagia, pharyngoesophageal phase[ICD10: R13.14] Janneth SHRESTHA [facility] CPT-4: 25351 09/06/2018 ([id number]) OFFICE/OUTPATIENT VISIT EST Diagnosis: Tinea corporis[ICD10: B35.4] Vaina SHRESTHA DO [facility] CPT-4: 27572 07/15/2018 ([id number]) OFFICE/OUTPATIENT VISIT EST Diagnosis: Cellulitis of left toe[ICD10: L03.032] Diagnosis: Mixed hyperlipidemia[ICD10: E78.2] [facility] 65359 2018 OFFICE/OUTPATIENT VISIT EST Diagnosis: Cellulitis of left toe[ICD10: L03.032] Diagnosis: Unspecified disturbances of skin sensation[ICD10: R20.9] [facility]: 94897 04/14/2018 ([id number]) OFFICE/OUTPATIENT VISIT EST Diagnosis: Cellulitis of left toe[ICD10: L03.032] Diagnosis: Insomnia, unspecified[ICD10: G47.00] Vania SHRESTHA [facility] CPT-4: 12183 03/18/2018 ([id number]) OFFICE/OUTPATIENT VISIT EST Diagnosis: Other postprocedural complications and disorders of the circulatory system, not elsewhere classified[ICD10: I97.89] Diagnosis: Rash and other nonspecific skin eruption[ICD10: R21] Diagnosis: Pain in right leg[ICD10: M79.604] Vania SHRESTHA [employer] [facility] CPT-4: 90392 01/26/2018 ([id number]) OFFICE/OUTPATIENT VISIT EST Diagnosis: Other postprocedural complications and disorders of the circulatory system, not elsewhere classified[ICD10: I97.89] Diagnosis: Cellulitis of right lower limb[ICD10: L03.115] Vania SHRESTHA DO [facility] CPT-4: 66376 12/22/2017 ([id number]) OFFICE/OUTPATIENT VISIT EST Diagnosis: Acute sinusitis, unspecified[ICD10: J01.90] Diagnosis: Unspecified disturbances of skin sensation[ICD10: R20.9] Vania SHRESTHA DO [facility] CPT-4: 55136 10/06/2017 ([id number]) OFFICE/OUTPATIENT VISIT EST Diagnosis: Primary insomnia[ICD10: F51.01] Diagnosis: Pain in left shoulder[ICD10: M25.512] Diagnosis: Poisoning by other parasympatholytics [anticholinergics and antimuscarinics] and spasmolytics, accidental (unintentional), sequela[ICD10: T44.3X1S] Janneth SHRESTHA [employer] [facility] CPT-4: 31262 02/03/2017 OFFICE/OUTPATIENT VISIT EST Diagnosis: Insomnia, unspecified[ICD10: G47.00] Diagnosis: Constipation, unspecified[ICD10: K59.00] Diagnosis: Spontaneous ecchymoses[ICD10: R23.3] Diagnosis: Pain in left foot[ICD10: M79.672] Vania SHRESTHA [facility] CPT-4: 91100 11/25/2016 OFFICE/OUTPATIENT VISIT EST Diagnosis: Insomnia, unspecified[ICD10: G47.00] Diagnosis: Constipation, unspecified[ICD10: K59.00] Diagnosis: Spontaneous ecchymoses[ICD10: R23.3] Diagnosis: Other specified local infections of the skin and subcutaneous tissue[ICD10: L08.89] Vania SHRESTHA [facility] CPT-4: 99 213 11/14/2016 ([id number]) OFFICE/OUTPATIENT VISIT EST Diagnosis: Acute upper respiratory infection, unspecified[ICD10: J06.9] Ester SHRESTHA [facility] CPT-4: 08131 04/02/2016 ([id number]) OFFICE/OUTPATIENT VISIT EST Diagnosis: Acute upper respiratory infection, unspecified[ICD10: J06.9] Ester SHRESTHA [facility] CPT-4: 13269 11/29/2015 ([id number]) OFFICE/OUTPATIENT VISIT EST Diagnosis: Pain in thoracic spine[ICD10: M54.6] Diagnosis: Paresthesia of skin[ICD10: R20.2] Diagnosis: Dysphagia, unspecified[ICD10: R13.10] Ester SHRESTHA [facility] CPT-4: 38056 06/27/2015 ([id number]) OFFICE/OUTPATIENT VISIT NEW Diagnosis: Pain in left leg[ICD10: M79.605] Diagnosis: Male erectile dysfunction, unspecified[ICD10: N52.9] Diagnosis: Dysphagia, unspecified[ICD10: R13.10] Ester SHRESTHA [facility] CPT-4: 13500 05/24/2015 Plan of Care Planned Activity Notes [...] S91.331A 08/18/2019 Patient Education: Levaquin- [employer] Coupon [id number] https://www.[employer]/Define My Style/resources/getResource/61/09d4k60y-7g33-052s-hh Completed 08/18/2019 Appointment: Janneth Shrestha WPtel: [address] [place], [place] [id number] [place] CANCELED 08/16/2019 Appointment: Janneth Shrestha WPtel: [address] [place] [address] [place] CANCELED 07/21/2019 Visit Diagnosis Plan: Other [...] : I82.401 07/05/2019 Appointment: Janneth Shrestha WPtel: [address] [place], [place] [phone] [place] FOLLOW UP 07/05/2019 Patient Education: cephalexin- [employer] Coupon [id number] https://www.Define My [employer].PinoyTravel/samplepa/resources/getResource/61/z7151i93-8122-2541-g8 Completed 07/05/2019 Visit Diagnosis Plan: Blood clot [...] : E11.65 05/17/2019 Appointment: Janneth Shrestha WPtel: [address] [place], [place] [phone] [place] FOLLOW UP 05/17/2019 Patient Education: Metformin [...] : L30.9 05/02/2019 Appointment: Janneth Shrestha WPtel: [address] [place], [place] [phone] [place] FOLLOW UP 05/02/2019 Patient Education: metoprolol succinate- [employer] Co upon [id number] https://www.[employer]/Define My Style/resources/getResourHaul Zing./61/20341li9-i1h6-125m-e9 Completed 05/02/2019 Visit Diagnosis Plan: DM w/o [...] I82.401 04/25/2019 Appointment: [facility]ann[facility]rest[facility]Ptel[facility] [address] [facility] [facility] 04/25/2019 Patient Education: Metformin Patient Savings Message Alert Completed 04/25/2019 Patient Education: prednisone- [employer] Coupon [id number] https://www.[employer] My [employer]/resources/getResource/61/4lo59fp2-x5qr-7w54-ab Completed 04/25/2019 Visit Diagnosis Plan: DM w/o [...] : T85.818A 04/11/2019 Appointment: Janneth Shrestha WPtel: [address] [place], [place] [phone] ACUTE ILLNESS 04/11/2019 Patient Education: metoprolol succinate- [employer] Co upon [id number] https://www.[employer] My [employer]/resources/getResource/61/uf007973-71uo-4i60-85 Completed 04/11/2019 Patient Education: Metformin Patient Savings Message Alert Completed 04/11/2019 Patient Education: cephalexin- [employer] Coupon [id number] https://www.[employer] My [employer]/resources/getResource/61/4khm5186-8d0f-8647-dy Completed 04/11/2019 Visit Diagnosis Plan: Folliculitis Discussion: Bactrim and topical bactroban ICD-9 : 704.8 ICD-10 : L73.9 03/01/2019 Visit Diagnosis Plan: Sinus tachycardia Discussion: St art low dose metoprolol ER 25mg daily Monitor pulse Sees Cardiology next month ICD-9 : 427.89 ICD-10 : R00.0 03/01/2019 Appointment: Janneth Shrestha WPtel: [address] [place] [id number] [place] FOLLOW UP 03/01/2019 Patient Education: mupirocin- [employer] Coupon [id number] https://www.[employer]/resources/getResource/61/sl597te6-85rs-440o-mx Completed 03/01/2019 Appointment: Janneth Shrestha WPtel: [address] [place] [address] [place] CANCELED 12/20/2018 Visit Diagnosis Plan: Cellulitis [...] ICD-10 : M76.72 11/18/2018 Appointment: Vania García [address] [place], [place] [phone] [place] CANCELED 11/18/2018 Appointment: Janneth Shrestha WPtel: [address] [facility] [place] FOLLOW UP 11/18/2018 Patient Education: doxycycline monohydrate- [employer] Coupon [id number] https://www.[employer]/samplemd/resources/getResource/61/dkp29736-m1z5-26n2-5v Completed 11/18/2018 Patient Education: prednisone- [employer] Coupon [id number] https://www.[employer]/samplemd/resources/getResource/61/20ch7q0o-7zb1-7436-sb Completed 11/18/2018 Care Plan: Referral Order SNOMED-CT : 30 [id number] Pending 11/18/2018 Visit Diagnosis Plan: Venous insufficiency [...] evaluated in an ED whether it be [place] or wherever he's traveling. discussed the risk [...] ICD-10 : R23.3 11/09/2018 Appointment: Vania García [address] [place], [place] [address] ACUTE ILLNESS 11/09/2018 Patient Education: clindamycin HCl- [employer] Coupon [id number] https://www.Define My [employer].PinoyTravel/samplemd/resources/getResource/61/27hx46j9-qh54-3br3-6w Completed 11/09/2018 Appointment: Janneth Shrestha WPtel: [address] [place] [facility] [place] CANCELED 10/19/2018 Visit Diagnosis Plan: Pain [...] : L03.116 10/13/2018 Appointment: Vania García [facility] [place] Patient cant pay copay till when he [...] ICD-10 : M54.5 09/23/2018 Appointment: Vania García [address] [place] [address] ACUTE ILLNESS 09/23/2018 Patient Education: Medrol (Brenden)- [employer] Coupon [phone] https://www.[employer]olar[employer]erve/sampleCalibra Medical/resources/getResource/61/wqjy907v-9264-62n2-14 Completed 09/23/2018 Visit Diagnosis Plan: Gastro-esophageal reflux disease without esophagitis Discussion: Start omeprazole ICD-9 : 530.81 ICD-10 : K21.9 09/06/2018 Visit Diagnosis Plan: Dysphagia, pharyngoesophageal ph ase Discussion: Referral for EGD ICD-9 : 787.24 ICD-10 : R13.14 09/06/2018 Appointment: Janneth Shrestha WPtel: [facility] [place] [address] ACUTE ILLNESS 09/06/2018 Patient Education: omeprazole- [employer] Coupon [id number] https://www.Define My [employer].PinoyTravel/Define My Style/resources/getResource/61/912nh780-52e9-379j-63 Completed 09/06/2018 Care Plan: Referral Order SNOMED-CT : 30 8937711 Pending 09/06/2018 Visit Diagnosis Plan: Tinea corporis Discussion: nysta tin to be used bid until rash gone and then an additional 2 days. diflucan every 3 days for 3 doses. keep area clean and dry with no moisturizers. call office if no improvement in 2 weeks or if worsening. ICD-9 : 110.5 ICD-10 : B35.4 07/15/2018 Appointment: Vania García [address] [place], [place] [address] ACUTE ILLNESS 07/15/2018 Patient Education: nystatin- [employer] Coupon [id number] https://www.[employer]erve/samplemd/resources/getResource/61/57zqd058-l5ng-97le-7d Completed 07/15/2018 Patient Education: Plavix- [employer] Coupon [id number] https://www.[employer]erve/samplemd/resources/getResource/61/69ti1w86-t13m-65ql-12 fa-m495h1861238.pdf Completed 07/15/2018 Patient Education: cyclobenzaprine- [employer] Coupon [id number] https://www.S[employer]erve/samplemd/resources/getResource/61/55479a1s-7b53-55w5-cr Completed 07/15/2018 Visit Diagnosis Plan: Cellulitis of [...] ICD-10 : L03.032 2018 Appointment: Mandy Hollins [facility] [address] FOLLOW UP 2018 Patient Education: mupirocin- [employer] Coupon [id number] https://www.Solar[employer]erve/samplemd/resources/getResource/61/a1de24i8-6466-6548-6i Completed 2018 Visit Diagnosis Plan: Cellulitis of [...] ICD-10 : R20.9 04/14/2018 Appointment: Mandy [facility] [employer] [address] FOLLOW UP 04/14/2018 Visit Diagnosis Plan: Cellulitis [...] ICD-10 : G47.00 03/18/2018 Appointment: Vania García [address] [place], [place] [address] ACUTE ILLNESS 03/18/2018 Patient Education: cyclobenzaprine- [employer] Coupon [id number] https://www.Define My Style.PinoyTravel/samplemd/resources/getResource/61/1178p469-2is7-243o-j2 Completed 03/18/2018 Visit Diagnosis Plan: Other postprocedur al complications and disorders of the circulatory system, not elsewhere classified Discussion: discussed with dr. shrestha and patient was instructed to contact the [place] [facility] de[facility]. due to uncontrolled pain, continued [...] ICD-10 : R21 01/26/2018 Appointment: Vania García [address] [place], [place] [id number] [place] [address] Follow Up 01/26/2018 Appointment: Janneth Shrestha WPtel: [address] [facility] NO SHOW 01/06/2018 Visit Diagnosis Plan: [...] : I97.89 12/22/2017 Appointment: Vania García [address] [facility] ACUTE ILLNESS 12/22/2017 Visit Diagnosis Plan: Unspecified [...] : J01.90 10/06/2017 Appointment: Vania García [address] [facility] ACUTE ILLNESS 10/06/2017 Patient Education: Patient Medication Summary Completed 10/06/2017 Appointment: Vania García [address] [place], [place] [id number] ER Follow UP 08/17/2017 Appointment: Vania García [address] [facility] [place] CANCELED 07/03/2017 Appointment: Janneth Shrestha WPtel: [address] [facility] [place] canceled at 8:05 this morning. [...] T44.3X1S 02/03/2017 Appointment: Janneth Shrestha WPtel: [address] [facility] [place] [address] Follow Up 02/03/2017 Patient Education: Patient Medication Summary Completed 02/03/2017 Visit Diagnosis Plan: Spontaneous ecchymoses Discussio n: labs wnl. instructed patient on side effects of plavix and aspirin. will continue to monitor. educated on being careful with movements to prevent injuries. ICD-9 : 782.7 ICD-10 : R23.3 11/25/2016 Visit Diagnosis Plan: Constipation, unspecified Discus jxason: miralax daily was ineffective as well as increasing fiber. samples of trulance were given to pt. 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 ICD-9 : 729.5 ICD-10 : M79.672 11/25/2016 Visit Diagnosis Plan: Insomnia, unspecified Recommenda tions: resolved with lunesta. continue taking as prescribed. ICD-9 : 780.52 ICD-10 : G47.00 11/25/2016 Appointment: Vania García [address] [place], [place] [id number] FOLLOW UP 11/25/2016 Patient Education: Patient Medication [...] ICD-10 : G47.00 11/14/2016 Appointment: Vania García [address] [place] [address] ACUTE ILLNESS 11/14/2016 Patient Education: Patient Medication Summary Completed 11/14/2016 Visit Diagnosis Plan: Acute upper respiratory infectio n, unspecified Discussion: Rxs as above Continue OTC and supportive meds Encouraged smoking cessation Follow up PRN ICD-9 : 465.9 ICD-10 : J06.9 04/02/2016 Appointment: Ester Grande [address] [place], [place] [address] ACUTE [facility]LLNESS 04/02/2016 Patient Education: Patient Medication Summary Completed 04/02/2016 Visit Plan: Rxs as above Supportive care reviewed Follow up PRN 11/29/2015 Appointment: Ester Grande [address] [place], [place] [address] 11/27 confirmed~sl ACUTE ILLNESS 11/29/2015 [...] for pain 06/27/2015 Appointment: Ester Grande [address] [facility] 06/25 lm ~sl 06/26 phone not on~sl FOLLOW UP 06/27/2015 Patient Education: Patient Medication Summary Completed 06/27/2015 Care Plan: X-RAY EXAM RIBS UNI 2 VIEWS L OINC : 83395-8 Pending 06/27/2015 Referral: Héctor Woodard WPtel: [address] [facility] 05/29 Scheduled with sena ~ Appointment Re quested 06/26/2015 Referral: Cameron Khanna WPtel: [address] [facility] [place] Referral Initiated 06/11/2015 Referral: Marco Antonio Green WPtel: [address] [id number] 05/30/15 Needs to be there at pre op time per ~sl Initiated 06/04/2015 Visit Plan: Will get all necessary refer rals set up - CTS, Uro and G/S Swallow study and routine labs ordered Will further investigate left leg pain with EMG if not cardio related 05/24/2015 Appointment: [facility] NEW [facility]IENT 05/24/2015 Patient Education: Patient Medication Summary Completed 05/24/2015 Care Plan: Referral Order SNOMED-CT : 30 [id number] Pending 05/24/2015 Care Plan: Referral Order SNOMED-CT : 30 3847589 Pending 05/24/2015 Care Plan: Referral Order SNOMED-CT : 30 5933817 Pending 05/24/2015 Referral: Sudheer Gann WPtel: [address] [facility] [place] Referral Appointment Requested Referral: Alfonzo Andujar WPtel: [address] [facility] [place] Referral Initiated Referral: [facility] [address] [id number] [place] Referral Completed Referral: Jey Cameron BismarkLisandra WPtel: [address] [place] [address] [place] Referral Appointment Requested Referral: RoseBrianna WPtel: [address] [place] [address] [place] Referral Initiated Referral: Héctor Woodard WPtel: [address] [place] [address] [place] 05/24/15 [facility] office suggested he see another card. ~sl Initiated Referral: Alfonzo Andujar WPtel: [address] [place] [address] [place] Referral Appointment Requested Referral: Marco Antonio Green WPtel: [address] [place] [address] [place] Referral Appointment Requested Instructions Comment . [...]
--- OUTSIDE RECORDS SUMMARY | 2019-09-02 12:12 | XMS REPORT | CCD ---
Author Author [place] Organization [facility] Address [address] [place] [address] Phone Unavailable Care Team Providers Care Pre Sales Network Engineer Name Role Phone Janneth Shrestha D.O., PP Unavailable CCM Unavailable Summary Purpose Interface Exchange Insurance Providers Payer name Policy type / Coverage type Covered republican ID Effective Begin Date Effective End Date Blue Cross Blue Shield Blue Cross/Blue Shield [id number] Unknown Family History Family History data not found Social History Social History Element Codes Description Effective Dates Marital status Unknown 05/24/2015 Number of children Unknown 2 05/24/2015 Employment Unknown Currently employed 05/24/[address]: [id number] 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 [...] Fill Instructions Levaquin 500 mg tablet RxNorm: 200778 1 Tablet(s) Oral QD 08/18/2019 08/25/2019 Active metoprolol succinate ER 50 mg tablet,extended release 24 hr RxNorm: 775332 1 Tablet(s) Oral QD 08/01/2019 08/18/2019 Inactive cyclobenzaprine 10 mg tablet RxNorm: 610470 TAKE ONE TA BLET BY MOUTH AT BEDTIME NEEDED 07/12/2019 No Stop Date Active cephalexin 500 mg tablet RxNorm: 604769 1 Tablet(s) Oral three times a day 07/05/2019 07/12/2019 Inactive cyclobenzaprine 10 mg tablet RxNorm: 796481 TAKE ONE TA BLET BY MOUTH AT BEDTIME NEEDED 05/20/2019 07/11/2019 Inactive metformin ER 1,000 mg tablet,extended release 24hr RxNorm: 1 203774 1 Tablet(s) Oral two times a day replaces 500mg dose 05/17/2019 11/13/2019 Active [AttnRPh: Saving apply/adjudicate RxGRP:[id number] RxBIN:[id number] RxPCN: ID#:[id number]] ReliOn Prime Test Strips RxNorm: 1 Unit [...] 05/01/2019 Inactive Plavix 75 mg tablet RxNorm: 382260 TAKE ONE TABLET BY MOUTH DAILY 0 04/25/2019 04/26/2019 Inactive Plavix 75 mg tablet RxNorm: 594569 TAKE ONE TABLET BY MOUTH DAILY 0 04/25/2019 04/24/2019 Inactive Xarelto 20 mg tablet RxNorm: 4606184 1 Tablet(s) Oral QD 04/25/2019 0 07/04/2019 Inactive amiodarone 200 mg tablet RxNorm: 170016 1 Tablet(s) Oral QD 020 07/04/2019 Inactive metformin ER 500 mg 24 hr tablet,extended release RxNorm: 18 07204 1 Tablet(s) Oral two times a day 04/25/2019 05/16/2019 Inactive prednisone 20 mg tablet RxNorm: 591455 1 Tablet(s) Oral two jn es a day 04/25/2019 05/01/2019 Inactive aspirin 81 mg tablet,delayed release RxNorm: 237774 1 Tablet(s) Oral QD 04/11/2019 No Stop Date Active pantoprazole 40 mg tablet,delayed release RxNorm: 835766 1 Tabl et(s) Oral QAM 04/11/2019 08/18/2019 Inactive Vitamin C 1,000 mg tablet RxNorm: 784632 1 Tablet(s) Oral QD 201908/18/2019 Inactive Xarelto 15 mg tablet RxNorm: 1102624 1 Tablet(s) Oral QD 04/11/2019 0 04/24/2019 Inactive metformin ER 500 mg 24 hr tablet,extended release RxNorm: 18 02748 1 Tablet(s) Oral QD 04/11/2019 04/24/2019 Inactive cephalexin 500 mg capsule RxNorm: 872153 1 Capsule(s) Oral thre e times a day 04/11/2019 04/18/2019 Inactive metoprolol succinate ER 50 mg tablet,extended release 24 hr RxNorm: 963562 1 Tablet(s) Oral QD replaces 25mg dose 04/11/2019 05/01/2019 Inactive cyclobenzaprine 10 mg tablet RxNorm: 946551 TAKE ONE TA BLET BY MOUTH EVERY NIGHT AT BEDTIME NEEDED 03/11/2019 No Stop Date Active mupirocin 2 % topical ointment RxNorm: 320557 Applicati on Topical two times a day 03/01/2019 04/10/2019 Inactive metoprolol succinate ER 25 mg tablet,extended release 24 hr RxNorm: 980808 1 Tablet(s) Oral QD 03/01/2019 04/24/2019 Inactive Bactrim DS 800 mg-160 mg tablet RxNorm: 638221 1 Tablet(s) Oral two times a day 03/01/2019 03/11/2019 Inactive cyclobenzaprine 10 mg tablet RxNorm: 453759 TAKE ONE TA BLET BY MOUTH EVERY NIGHT AT BEDTIME NEEDED 01/10/2019 03/10/2019 Inactive Plavix 75 mg tablet RxNorm: 720225 TAKE ONE TABLET BY MOUTH DAILY 1 03/12/2018 04/24/2019 Inactive omeprazole 40 mg capsule,delayed release RxNorm: 463335 TAKE ONE CAPSULE BY MOUTH EVERY NIGHT AT BEDTIME FOR REFLUX 01/10/2019 05/16/2019 Inactive tramadol 50 mg tablet RxNorm: 145284 1 Tablet(s) Oral f our times a day as needed 01/03/2019 01/03/2019 Inactive doxycycline monohydrate 100 mg capsule RxNorm: 9563926 1 Capsule(s) Oral two times a day 11/22/2018 12/13/2018 Inactive prednisone 20 mg tablet RxNorm: 669899 1 Tablet(s) Oral two jn es a day 11/22/2018 11/29/2018 Inactive Levaquin 750 mg tablet RxNorm: 789037 Tablet(s) Oral 11/18/201802/28 Inactive prednisone 20 mg tablet RxNorm: 756424 1 Tablet(s) Oral two jn es a day 11/18/2018 11/21/2018 Inactive tramadol 50 mg tablet RxNorm: 381272 Tablet(s) Oral 11/18/20182018 Inactive doxycycline monohydrate 100 mg capsule RxNorm: 9384444 1 Capsule(s) Oral two times a day 11/18/2018 11/21/2018 Inactive Plavix 75 mg tablet RxNorm: 169358 TAKE ONE TABLET BY MOUTH DAILY 0 11/10/2018 01/08/2019 Inactive clindamycin HCl 300 mg capsule RxNorm: 186836 1 Capsule (s) Oral three times a day 11/09/2018 11/19/2018 Inactive Keflex 500 mg capsule RxNorm: 052611 1 Capsule(s) PO BID 10/13/2018 0 10/22/2018 Inactive Medrol (Brenden) 4 mg tablets in a dose pack RxNorm: 729818 Tablet(s) take as directed PO 09/23/2018 10/12/2018 Inactive omeprazole 40 mg capsule,delayed release RxNorm: 144467 1 Capsule(s) PO QHS for reflux 09/06/2018 11/04/2018 Inactive Diflucan 150 mg tablet RxNorm: 988073 1 Tablet(s) PO Q72H 07/15/2018 09/05/2018 Inactive cyclobenzaprine 10 mg tablet RxNorm: 548464 1 Tablet(s) PO QHS as needed 07/15/2018 10/12/2018 Inactive nystatin 100,000 unit/gram topical cream RxNorm: 276878 1 Gram( s) TOP BID 07/15/2018 09/05/2018 Inactive Plavix 75 mg tablet RxNorm: 830484 1 Tablet(s) PO QD 07/15/201810/12 Inactive cyclobenzaprine 10 mg tablet RxNorm: 269152 1 Tablet(s) PO QHS as needed 06/10/2018 06/09/2018 Inactive cyclobenzaprine 10 mg tablet RxNorm: 391322 TAKE ONE TA BLET BY MOUTH EVERY NIGHT AT BEDTIME NEEDED 05/10/2018 06/10/2018 Inactive mupirocin 2 % topical ointment RxNorm: 208409 1 Application TOP BID 2018 05/25/2018 Inactive 22 gram cyclobenzaprine 10 mg tablet RxNorm: 309648 1 Tablet(s) PO QHS as needed 04/14/2018 06/09/2018 Inactive doxycycline hyclate 100 mg tablet RxNorm: 9350748 1 Tablet(s) PO BI D 04/14/2018 04/23/2018 Inactive cyclobenzaprine 10 mg tablet RxNorm: 731708 1 Tablet(s) PO QHS as needed 04/07/2018 04/13/2018 Inactive Bactrim DS 800 mg-160 mg tablet RxNorm: 342106 1 Tablet(s) PO BID 0 03/18/2018 03/27/2018 Inactive cyclobenzaprine 10 mg tablet RxNorm: 740615 1 Tablet(s) PO QHS as needed 03/18/2018 04/06/2018 Inactive triamcinolone acetonide 0.1 % topical cream RxNorm: 6977628 APPLY TO AFFECTED AREA(S) TWO TIMES A DAY 02/03/2018 02/12/2018 Inactive triamcinolone acetonide 0.1 % topical cream RxNorm: 3022151 1 Application TOP BID 01/26/2018 02/02/2018 Inactive Medrol (Brenden) 4 mg tablets in a dose pack RxNorm: 086627 TAKE BY MOUTH INSTRUCTED - PER PACKAGE INSTRUCTIONS 12/11/2017 12/16/2017 Inactive Medrol (Brenden) 4 mg tablets in a dose pack RxNorm: 403210 Tablet(s) P O 10/06/2017 12/10/2017 Inactive Lunesta 3 mg tablet RxNorm: 299059 1 Tablet(s) PO QHS 11/25/201608/2016 Inactive Lunesta 3 mg tablet RxNorm: 444153 1 Tablet(s) PO QHS 11/14/201610/2016 Inactive Bactrim DS 800 mg-160 mg tablet RxNorm: 899442 1 Tablet(s) PO BID 0 11/14/2016 11/23/2016 Inactive Epi E-Z Pen 0.3 mg/0.3 mL injection, auto-injector RxNorm: 1 598040 Milliliter(s) IM Use as Directed 06/25/2016 09/05/2018 Inactive amoxicillin 875 mg tablet RxNorm: 593202 1 Tablet(s) PO BID 017 04/11/2016 Inactive prednisone 20 mg tablet RxNorm: 412103 1 Tablet(s) PO BID 04/02/2016 04/06/2016 Inactive azithromycin 250 mg tablet RxNorm: 673374 2 Tablet(s) P O on day one then 1 tab on days 2-5 11/29/2015 11/28/2015 Inactive Medrol (Brenden) 4 mg tablets in a dose pack RxNorm: 884625 Take as directed 11/29/2015 11/13/2016 Inactive meloxicam 15 mg tablet RxNorm: 547188 1 Tablet(s) PO QD 07/02/2015 Inactive Chantix Starting Month Box 0.5 mg (11)-1 mg (42) table ts in dose pack RxNorm: 996593 Tablet(s) PO As Directed 06/20/2015 07/10/2015 Inactive omeprazole 40 mg capsule,delayed release RxNorm: 002110 1 Capsu le(s) PO QD 05/31/2015 11/13/2016 Inactive omeprazole 40 mg capsule,delayed release RxNorm: 898040 1 Capsu le(s) PO QD 05/31/2015 05/30/2015 Inactive Multivitamin And Mineral oral RxNorm: oral No Start Date Active Wellbutrin SR 150 mg tablet,sustained-release RxNorm: 379072 1 Tablet(s) PO BID No Start Date 11/13/2016 Inactive gabapentin 100 mg capsule RxNorm: 310723 1 Capsule(s) PO TID No Sta rt Date 03/17/2018 Inactive Chantix Starting Month Box 0.5 mg (11)-1 mg (42) table ts in dose pack RxNorm: 413007 Tablet(s) PO As Directed No Start Date 06/19/2015 Inactive Eliquis 5 mg tablet RxNorm: 6303630 1 Tablet(s) PO BID No Start Date 03/17/2018 Inactive Lactobacillus acidophilus-Bifidobacterium longum oral RxNorm: oral No Start Date 07/04/2019 Inactive aspirin 325 mg tablet RxNorm: 412140 1 Tablet(s) PO QD No Start Date 11/13/2016 Inactive clindamycin HCl 300 mg capsule RxNorm: 684861 2 Capsule(s) PO Q8H N o Start Date 03/17/2018 Inactive Fish Oil 1,000 mg (120 mg-180 mg) capsule RxNorm: 1 Caps ule(s) PO QD No Start Date 09/05/2018 Inactive aspirin 81 mg tablet RxNorm: 395024 1 Tablet(s) PO QD No Start Date 1 03/28/2017 Inactive Fish Oil 1,000 mg capsule RxNorm: 1 Capsule(s) PO QD No Start Date 11/13/2016 Inactive Baby Aspirin 81 mg chewable tablet RxNorm: 315647 1 Tablet(s) P O BID No Start Date 02/02/2017 Inactive Xarelto 10 mg tablet RxNorm: 0676792 1 Tablet(s) PO QD No Start Date 01/25/2018 Inactive tramadol 50 mg tablet RxNorm: 679013 1-2 Tablet(s) PO Q6H No Start Date 03/17/2018 Inactive meloxicam 15 mg tablet RxNorm: 069070 1 Tablet(s) PO QD No Start Da te 07/01/2015 Inactive Epi E-Z Pen 0.3 mg/0.3 mL injection, auto-injector RxNorm: 1 490067 Milliliter(s) IM Use as Directed No Start Date 06/24/2016 Inactive Plavix 75 mg tablet RxNorm: 697895 1 Tablet(s) PO QD No Start Date Inactive Medication Administered No Medication Administered data Immunizations No Immunization data Results Observation Observation Code Item Item Code Result Date S ervice Location COMPREHENSIVE METABOLIC 65995 AST 25 U/L 2018 Unknown COMPREHENSIVE METABOLIC 27261 ALT 28 U/L 2018 Unknown COMPREHENSIVE METABOLIC 08635 BUN 13 mg/dL 2018 Unknown COMPREHENSIVE METABOLIC 88511 ALBUMIN 4.2 g/dL 2018 Unknown COMPREHENSIVE METABOLIC 46816 CHLORIDE 104 mmol/L 11/09 Unknown COMPREHENSIVE METABOLIC 94105 Bili Total 0.5 mg/dL 11/09 Unknown COMPREHENSIVE METABOLIC 45045 ALK PHOS 72 U/L 2018 Unknown COMPREHENSIVE METABOLIC 58561 SODIUM 139 mmol/L 11/09 Unknown COMPREHENSIVE METABOLIC 61638 CREATININE 0.98 mg/dL 10/18 Unknown COMPREHENSIVE METABOLIC 67085 CALCIUM 9.1 mg/dL 2018 Unknown COMPREHENSIVE METABOLIC 55348 POTASSIUM 3.7 mmol/L 11/09 Unknown COMPREHENSIVE METABOLIC 24017 Total Protein 7.2 g/dL Unknown COMPREHENSIVE METABOLIC 11879 Glucose 137 mg/dL 2018 Unknown COMPREHENSIVE METABOLIC 00498 Bicarbonate 24 mmol/L 10/18 Unknown COMPREHENSIVE METABOLIC 36924 AGAP 11 mmol/L 2018 Unknown COMPLETE BLOOD COUNT [id number] WBC 4.6 10e9/L 11/10/19 19 Unknown COMPLETE BLOOD COUNT [id number] RBC 4.88 10e12/L 2018 Unknown COMPLETE BLOOD COUNT 1553337 HEMOGLOBIN 14.7 g/dL 11/10/19 19 Unknown COMPLETE BLOOD COUNT [id number] HEMATOCRIT 43.7 % 11/10/19 19 Unknown COMPLETE BLOOD COUNT [id number] MCV 89.5 fL 9 Unknown COMPLETE BLOOD COUNT [id number] MCH 30.1 pg 9 Unknown COMPLETE BLOOD COUNT 3077567 MCHC 33.6 g/dL 9 Unknown COMPLETE BLOOD COUNT [id number] PLATELET COUNT 179 10e9/L Unknown COMPLETE BLOOD COUNT [id number] Mean Plt Volume 11.6 fL Unknown COMPLETE BLOOD COUNT 1064669 Neut Auto 55.5 % 9 Unknown COMPLETE BLOOD COUNT [id number] Lymph Auto 28.7 % 11/10/19 19 Unknown COMPLETE BLOOD COUNT 6293246 Ponce Auto 7.9 % 9 Unknown COMPLETE BLOOD COUNT [id number] RDW 13.2 % 9 Unknown COMPLETE BLOOD COUNT 5813665 Eos Auto 7.7 % 9 Unknown COMPLETE BLOOD COUNT 6964761 Baso Auto 0.2 % 9 Unknown COMPLETE BLOOD COUNT [id number] Neutrophil Abs 2.55 10e9/L Unknown COMPLETE BLOOD COUNT [id number] Lymphocyte Abs 1.32 10e9/L Unknown COMPLETE BLOOD COUNT [id number] Monocyte Abs 0.36 10e9/L 10/18 Unknown COMPLETE BLOOD COUNT [id number] Eosinophil Abs 0.35 10e9/L Unknown COMPLETE BLOOD COUNT [id number] RDW-SD 42.2 fL 9 Unknown COMPLETE BLOOD COUNT [id number] Basophil Abs 0.01 10e9/L 10/18 Unknown [facility] 54756 Cholesterol 205 mg/dL 11/09/2018 Unkno wn LIPID GROUP 52085 Triglyceride 268 mg/dL 11/09/2018 Unkn own LIP[facility] GROUP 34907 HDL CHOLESTEROL 35 mg/dL 11/09/2018 U nknown LIPID GROUP 08701 Chol/HDL Ratio 5.86 ratio 11/09/2018 U nknown LIPID GROUP 01625 NON-HDL Chol 170 mg/dL 11/09/2018 Unkn own L[facility] GROUP 26440 LDL Cholesterol 116 mg/dL 11/09/2018 U nknown PT 8188743 PT 12.7 Seconds 11/09/2018 Unknow n PT 3846914 INR 0.9 11/09/2018 Unknown GFR CALC 0131992 GFR Non Afr Amr >60 mL/min 11/09/2018 Un known GFR CALC 0815634 GFR Afr Amr >60 mL/min 11/09/2018 Unknow n ACT PARTIAL THRMBOPLASTIN TIME 25579 PTT 34.0 Seco nds 11/09/2018 Unknown LIPID GROUP 92807 Cholesterol 186 mg/dL 2018 Unkno wn LIP[facility] GROUP 94286 Triglyceride 229 mg/dL 2018 Unkn own LIP[facility] GROUP 98160 HDL CHOLESTEROL 36 mg/dL 2018 U nknown LIP[facility] GROUP 44633 Chol/HDL Ratio 5.17 ratio 2018 U nknown LIPID GROUP 70567 NON-HDL Chol 150 mg/dL 2018 Unkn own LIPID GROUP 81447 LDL Cholesterol 104 mg/dL 2018 U nknown GFR CALC 7498444 GFR Non Afr Amr >60 mL/min 2018 Un known GFR CALC 5976070 GFR Afr Amr >60 mL/min 2018 Unknow n COMPREHENSIVE METABOLIC 44515 AST 23 U/L 2018 Unknown COMPREHENSIVE METABOLIC 79441 ALT 22 U/L 2018 Unknown COMPREHENSIVE METABOLIC 81798 BUN 15 mg/dL 2018 Unknown COMPREHENSIVE METABOLIC 95412 ALBUMIN 4.1 g/dL 2018 Unknown COMPREHENSIVE METABOLIC 97532 CHLORIDE 106 mmol/L 05/06 Unknown COMPREHENSIVE METABOLIC 31042 Bili Total 0.6 mg/dL 05/06 Unknown COMPREHENSIVE METABOLIC 50565 ALK PHOS 61 U/L 2018 Unknown COMPREHENSIVE METABOLIC 41375 SODIUM 141 mmol/L 05/06 Unknown COMPREHENSIVE METABOLIC 57588 CREATININE 0.91 mg/dL 04/17 Unknown COMPREHENSIVE METABOLIC 43063 CALCIUM 9.2 mg/dL 2018 Unknown COMPREHENSIVE METABOLIC 87972 POTASSIUM 3.8 mmol/L 05/06 Unknown COMPREHENSIVE METABOLIC 80313 Total Protein 7.0 g/dL Unknown COMPREHENSIVE METABOLIC 96112 Glucose 97 mg/dL 2018 Unknown COMPREHENSIVE METABOLIC 19520 Bicarbonate 28 mmol/L 04/17 Unknown COMPREHENSIVE METABOLIC 95592 AGAP 7 mmol/L 2018 Unknown THYROID STIMULATING HORMONE 41012 TSH 2.094 uIU/mL 2018 Unknown COMPLETE BLOOD COUNT 4646089 WBC 5.5 10e9/L 05/07/19 19 Unknown COMPLETE BLOOD COUNT [id number] RBC 4.61 10e12/L 2018 Unknown COMPLETE BLOOD COUNT 5264977 HEMOGLOBIN 13.6 g/dL 05/07/19 19 Unknown COMPLETE BLOOD COUNT 2892588 HEMATOCRIT 40.0 % 05/07/19 19 Unknown COMPLETE BLOOD COUNT 1186548 MCV 86.8 fL 9 Unknown COMPLETE BLOOD COUNT 2375324 MCH 29.5 pg 9 Unknown COMPLETE BLOOD COUNT 1850627 MCHC 34.0 g/dL 9 Unknown COMPLETE BLOOD COUNT 8434193 PLATELET COUNT 197 10e9/L Unknown COMPLETE BLOOD COUNT 9875668 Mean Plt Volume 10.8 fL Unknown COMPLETE BLOOD COUNT 9927625 Neut Auto 49.6 % 9 Unknown COMPLETE BLOOD COUNT 9202743 Lymph Auto 36.8 % 05/07/19 19 Unknown COMPLETE BLOOD COUNT 4827451 Ponce Auto 8.1 % 9 Unknown COMPLETE BLOOD COUNT 8196776 RDW 15.3 % 9 Unknown COMPLETE BLOOD COUNT 3715183 Eos Auto 5.3 % 9 Unknown COMPLETE BLOOD COUNT 0475516 Baso Auto 0.2 % 9 Unknown COMPLETE BLOOD COUNT 5277889 Neutrophil Abs 2.73 10e9/L Unknown COMPLETE BLOOD COUNT 3609228 Lymphocyte Abs 2.02 10e9/L Unknown COMPLETE BLOOD COUNT [id number] Monocyte Abs 0.45 10e9/L 04/17 Unknown COMPLETE BLOOD COUNT 7107314 Eosinophil Abs 0.29 10e9/L Unknown COMPLETE BLOOD COUNT 3209062 RDW-SD 47.9 fL 9 Unknown COMPLETE BLOOD COUNT [id number] Basophil Abs 0.01 10e9/L 04/17 Unknown Procedures Procedure Codes Date CEFTRIAXONE SODIUM INJECTION CPT-4: J0696 11/09/2018 THER/PROPH/DIAG INJ SC/IM CPT-4: 58078 11/09/2018 ROUTINE VENIPUNCTURE CPT-4: 64098 11/09/2018 COMPREHEN METABOLIC PANEL CPT-4: 33228 11/09/2018 COMPLETE CBC W/AUTO DIFF WBC CPT-4: 89940 11/09/2018 LIPID PANEL CPT-4: 75009 11/09/2018 PROTHROMBIN TIME CPT-4: 01122 11/09/2018 THROMBOPLASTIN TIME PARTIAL CPT-4: 59367 11/09/2018 THER/PROPH/DIAG INJ SC/IM CPT-4: 93962 09/23/2018 KETOROLAC TROMETHAMINE INJ CPT-4: J1885 09/23/2018 ROUTINE VENIPUNCTURE CPT-4: 54535 2018 ASSAY THYROID STIM HORMONE CPT-4: 61844 2018 COMPREHEN METABOLIC PANEL CPT-4: 14760 2018 COMPLETE CBC W/AUTO DIFF WBC CPT-4: 82325 2018 LIPID PANEL CPT-4: 61499 2018 CEFTRIAXONE SODIUM INJECTION CPT-4: J0696 04/14/2018 THER/PROPH/DIAG INJ SC/IM CPT-4: 08353 04/14/2018 CEFTRIAXONE SODIUM INJECTION CPT-4: J0696 03/18/2018 THER/PROPH/DIAG INJ SC/IM CPT-4: 10955 03/18/2018 THER/PROPH/DIAG INJ SC/IM CPT-4: 34704 01/26/2018 KETOROLAC TROMETHAMINE INJ CPT-4: J1885 01/26/2018 CEFTRIAXONE SODIUM INJECTION CPT-4: J0696 12/22/2017 THER/PROPH/DIAG INJ SC/IM CPT-4: 76250 12/22/2017 ROUTINE VENIPUNCTURE CPT-4: 28400 11/14/2016 COMPLETE CBC W/AUTO DIFF WBC CPT-4: 52421 11/14/2016 PT/PTT CPT-4: 3288891 11/14/2016 Vital Signs Date Vital 08/18/2019 Blood [...] 1: 134/82 Code: 8480-6 BMI: 23.9 Code: 66716-8 Heart Rate 1: 100 bpm Height: 6'4" [...] 1: 138/70 Code: 8480-6 BMI: 22.6 Code: 69738-9 Heart Rate 1: 97 bpm Height: 6'4" [...] 1: 142/80 Code: 8480-6 BMI: 20.9 Code: 96068-9 Heart Rate 1: 108 bpm Height: 6'4" Respiratory Rate: 20 bpm SpO2: 97% Tempera ture: 36.6 (C) / 97.9 (F) Weight: 172 lbs 01/26/2018 Blood Pressure 1: 130/82 Code: 8480-6 Heart Rate 1: 98 bpm Respiratory Rate: 18 bpm SpO2: 99% Temperature: 35.7 (C) / 96.3 (F) We ight: 175 lbs 12/22/2017 Blood Pressure 1: 124/68 Code: 8480-6 BMI: 22.3 Code: 90922-7 Heart Rate 1: 100 bpm Height: 6'4" Respiratory Rate: 20 bpm SpO2: 98% Tempera ture: 36.7 (C) / 98.0 (F) Weight: 183 lbs 10/06/2017 Blood Pressure 1: 130/86 Code: 8480-6 BMI: 21.1 Code: 48538-1 Heart Rate 1: 92 bpm Height: 6'4" Respiratory Rate: 18 bpm SpO2: 98% Tempera ture: 36.9 (C) / 98.5 (F) Weight: 173 lbs 02/03/2017 Blood Pressure 1: 144/92 Code: 8480-6 BMI: 20.8 Code: 78556-6 Heart Rate 1: 88 bpm Height: 6'4" Respiratory Rate: 20 bpm SpO2: 97% Tempera ture: 36.7 (C) / 98.1 (F) Weight: 171 lbs 11/25/2016 Blood Pressure 1: 126/84 Code: 8480-6 Heart Rate 1: 76 bpm Respiratory Rate: 20 bpm SpO2: 96% Temperature: 36.9 (C) / 98.4 (F) We ight: 170 lbs 11/14/2016 Blood Pressure 1: 126/82 Code: 8480-6 BMI: 20.7 Code: 80709-8 Heart Rate 1: 86 bpm Height: 6'4" Respiratory Rate: 18 bpm SpO2: 96% Tempera ture: 35.8 (C) / 96.5 (F) Weight: 170 lbs 04/02/2016 Blood Pressure 1: 124/78 Code: 8480-6 Heart Rate 1: 88 bpm Respiratory Rate: 24 bpm SpO2: 97% Temperature: 36.1 (C) / 97.0 (F) We ight: 161 lbs 11/29/2015 Blood Pressure 1: 124/68 Code: 8480-6 BMI: 19.2 Code: 80298-6 Heart Rate 1: 94 bpm Height: 6'4" Respiratory Rate: 18 bpm SpO2: 97% Tempera ture: 36.1 (C) / 97.0 (F) Weight: 158 lbs 06/27/2015 Blood Pressure 1: 128/78 Code: 8480-6 BMI: 18.7 Code: 11078-8 Heart Rate 1: 72 bpm Height: 6'4" Respiratory Rate: 22 bpm SpO2: 98% Tempera ture: 35.9 (C) / 96.6 (F) Weight: 154 lbs 05/24/2015 Blood Pressure 1: 112/78 Code: 8480-6 BMI: 19.7 Code: 92076-7 Heart Rate 1: 78 bpm Height: 6'4" [...] care Encounters Encounter Performer Location Codes Date ([id number]) OFFICE/OUTPATIENT VISIT EST Diagnosis: Puncture wound of right foot[ICD10: S91.331A] Diagnosis: DM w/o complication type II, uncontrolled[ICD10: E11.65] Janneth SHRESTHA [employer] CPT-4: 64967 08/18/2019 ([id number]) OFFICE/OUTPATIENT VISIT EST Diagnosis: Other specified local infections of the skin and subcutaneous tissue[ICD10: L08.89] Diagnosis: DM w/o complication type II, uncontrolled[ICD10: E11.65] Diagnosis: Right leg DVT[ICD10: I82.401] Janneth WARD [employer]Lis[facility] [employer] CPT-4: 70663 07/05/2019 ([id number]) OFFICE/OUTPATIENT VISIT EST Diagnosis: 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, implant, or graft[ICD10: T85.818A] Diagnosis: DM w/o complication type II, uncontrolled[ICD10: E11.65] Janneth WARD [employer]Lisandra [employer] CPT-4: 76686 05/17/2019 ([id number]) OFFICE/OUTPATIENT VISIT EST Diagnosis: Acute dermatitis[ICD10: L30.9] Diagnosis: DM w/o complication type II, uncontrolled[ICD10: E11.65] Diagnosis: Right leg DVT[ICD10: I82.401] Janneth WARD [employer] CPT-4: 36794 05/02/2019 ([id number]) OFFICE/OUTPATIENT VISIT EST Diagnosis: DM w/o complication type II, uncontrolled[ICD10: E11.65] Diagnosis: Allergic dermatitis[ICD10: L23.9] Diagnosis: Right leg DVT[ICD10: I82.401] Diagnosis: Paroxysmal atrial fibrillation[ICD10: I48.0] Diagnosis: Right calf pain[ICD10: M79.661] Janneth WARD [employer] CPT-4: 50195 04/25/2019 ([id number]) OFFICE/OUTPATIENT VISIT EST Diagnosis: DM w/o complication type II, uncontrolled[ICD10: E11.65] Diagnosis: 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, implant, or graft[ICD10: T85.818A] Diagnosis: Essential hypertension[ICD10: I10] Janneth SHRESTHA [facility] CPT-4: 97073 04/11/2019 ([id number]) OFFICE/OUTPATIENT VISIT EST Diagnosis: Sinus tachycardia[ICD10: R00.0] Diagnosis: Folliculitis[ICD10: L73.9] [facility] 91699 03/01/2019 ([id number]) OFFICE/OUTPATIENT VISIT EST Diagnosis: Cellulitis of left lower limb[ICD10: L03.116] Diagnosis: Tendinitis of left peroneus longus tendon[ICD10: M76.72] Janneth CLARK [employer] [facility] CPT-4: 53665 11/18/2018 ([id number]) OFFICE/OUTPATIENT VISIT EST Diagnosis: Cellulitis of left foot[ICD10: L03.116] Diagnosis: Spontaneous ecchymoses[ICD10: R23.3] Diagnosis: Venous insufficiency (chronic) (peripheral)[ICD10: I87.2] Diagnosis: Mixed hyperlipidemia[ICD10: E78.2] Vania CLARK [employer] [facility] CPT-4: 52567 11/09/2018 ([id number]) OFFICE/OUTPATIENT VISIT EST Diagnosis: Venous insufficiency (chronic) (peripheral)[ICD10: I87.2] Diagnosis: Cellulitis of left lower limb[ICD10: L03.116] Diagnosis: Pain in right foot[ICD10: M79.671] Vania CLARK [employer] CPT-4: 38797 10/13/2018 ([id number]) OFFICE/OUTPATIENT VISIT EST Diagnosis: Low back pain[ICD10: M54.5] Vania Taylor [facility] CPT-4: 06655 09/23/2018 ([id number]) OFFICE/OUTPATIENT VISIT EST Diagnosis: Gastro-esophageal reflux disease without esophagitis[ICD10: K21.9] Diagnosis: Dysphagia, pharyngoesophageal phase[ICD10: R13.14] Janneth SHRESTHA [facility] CPT-4: 31196 09/06/2018 ([id number]) OFFICE/OUTPATIENT VISIT EST Diagnosis: Tinea corporis[ICD10: B35.4] Vania SHRESTHA DO [facility] CPT-4: 63149 07/15/2018 ([id number]) OFFICE/OUTPATIENT VISIT EST Diagnosis: Cellulitis of left toe[ICD10: L03.032] Diagnosis: Mixed hyperlipidemia[ICD10: E78.2] [facility]: 98627 2018 OFFICE/OUTPATIENT VISIT EST Diagnosis: Cellulitis of left toe[ICD10: L03.032] Diagnosis: Unspecified disturbances of skin sensation[ICD10: R20.9] [facility] C[facility]: 37093 04/14/2018 ([id number]) OFFICE/OUTPATIENT VISIT EST Diagnosis: Cellulitis of left toe[ICD10: L03.032] Diagnosis: Insomnia, unspecified[ICD10: G47.00] Vania SHRESTHA [facility] CPT-4: 25944 03/18/2018 ([id number]) OFFICE/OUTPATIENT VISIT EST Diagnosis: Other postprocedural complications and disorders of the circulatory system, not elsewhere classified[ICD10: I97.89] Diagnosis: Rash and other nonspecific skin eruption[ICD10: R21] Diagnosis: Pain in right leg[ICD10: M79.604] Vania SHRESTHA [facility] CPT-4: 36116 01/26/2018 ([id number]) OFFICE/OUTPATIENT VISIT EST Diagnosis: Other postprocedural complications and disorders of the circulatory system, not elsewhere classified[ICD10: I97.89] Diagnosis: Cellulitis of right lower limb[ICD10: L03.115] Vania SHRESTHA [facility] CPT-4: 19923 12/22/2017 ([id number]) OFFICE/OUTPATIENT VISIT EST Diagnosis: Acute sinusitis, unspecified[ICD10: J01.90] Diagnosis: Unspecified disturbances of skin sensation[ICD10: R20.9] Vania SHRESTHA [facility] CPT-4: 06058 10/06/2017 ([id number]) OFFICE/OUTPATIENT VISIT EST Diagnosis: Primary insomnia[ICD10: F51.01] Diagnosis: Pain in left shoulder[ICD10: M25.512] Diagnosis: Poisoning by other parasympatholytics [anticholinergics and antimuscarinics] and spasmolytics, accidental (unintentional), sequela[ICD10: T44.3X1S] Janneth SHRESTHA [facility] CPT-4: 87120 02/03/2017 OFFICE/OUTPATIENT VISIT EST Diagnosis: Insomnia, unspecified[ICD10: G47.00] Diagnosis: Constipation, unspecified[ICD10: K59.00] Diagnosis: Spontaneous ecchymoses[ICD10: R23.3] Diagnosis: Pain in left foot[ICD10: M79.672] Vania SHRESTHA [facility] CPT-4: 94984 11/25/2016 OFFICE/OUTPATIENT VISIT EST Diagnosis: Insomnia, unspecified[ICD10: G47.00] Diagnosis: Constipation, unspecified[ICD10: K59.00] Diagnosis: Spontaneous ecchymoses[ICD10: R23.3] Diagnosis: Other specified local infections of the skin and subcutaneous tissue[ICD10: L08.89] Vania SHRESTHA [facility] CPT-4: 99 213 11/14/2016 ([id number]) OFFICE/OUTPATIENT VISIT EST Diagnosis: Acute upper respiratory infection, unspecified[ICD10: J06.9] Ester SHRESTHA [facility] CPT-4: 94605 04/02/2016 (90923) OFFICE/OUTPATIENT VISIT EST Diagnosis: Acute upper respiratory infection, unspecified[ICD10: J06.9] Ester SHRESTHA [facility] CPT-4: 20948 11/29/2015 ([id number]) OFFICE/OUTPATIENT VISIT EST Diagnosis: Pain in thoracic spine[ICD10: M54.6] Diagnosis: Paresthesia of skin[ICD10: R20.2] Diagnosis: Dysphagia, unspecified[ICD10: R13.10] Ester SHRESTHA [facility] CPT-4: 27076 06/27/2015 ([id number]) OFFICE/OUTPATIENT VISIT NEW Diagnosis: Pain in left leg[ICD10: M79.605] Diagnosis: Male erectile dysfunction, unspecified[ICD10: N52.9] Diagnosis: Dysphagia, unspecified[ICD10: R13.10] Ester SHRESTHA [facility] CPT-4: 24781 05/24/2015 Plan of Care Planned Activity Notes [...] S91.331A 08/18/2019 Patient Education: Levaquin- [employer] Coupon [id number] https://www.[employer] Metrics/[employer]/resources/getResource/61/57h2b56n-4s69-976j-hs Completed 08/18/2019 Appointment: Janneth Shrestha WPtel: [address] [place], [place] [address] [place] CANCELED 08/16/2019 Appointment: Janneth Shrestha WPtel: [address] [place], [place] [address] [place] CANCELED 07/21/2019 Visit Diagnosis Plan: Other [...] : I82.401 07/05/2019 Appointment: Janneth Shrestha WPtel: [address] [place], [place] [phone] [place] FOLLOW UP 07/05/2019 Patient Education: cephalexin- [employer] Coupon [id number] https://www.[employer].Shoutlet/sampledc/resources/getResource/61/b2954b93-9675-3431-c0 Completed 07/05/2019 Visit Diagnosis Plan: Blood clot [...] : E11.65 05/17/2019 Appointment: Janneth Shrestha WPtel: [address] [place], [place] [phone] [place] FOLLOW UP 05/17/2019 Patient Education: Metformin [...] : L30.9 05/02/2019 Appointment: Janneth Shrestha WPtel: [address] [place], [place] [phone] [place] FOLLOW UP 05/02/2019 Patient Education: metoprolol succinate- [employer] Co upon [id number] https://www.[employer]/resources/getResourMobicious/61/60421ne5-c8r2-119r-k5 Completed 05/02/2019 Visit Diagnosis Plan: DM w/o [...] I82.401 04/25/2019 Appointment: [facility] [address] [facility] [facility] 04/25/2019 Patient Education: Metformin Patient Savings Message Alert Completed 04/25/2019 Patient Education: prednisone- [employer] Coupon [id number] https://www.[employer]/resources/getResource/61/6kh06sx6-i7mo-4x40-uv Completed 04/25/2019 Visit Diagnosis Plan: DM w/o [...] T85.818A 04/11/2019 Appointment: Janneth Shrestha WPtel: [address] [place], [place] [phone] ACUTE ILLNESS 04/11/2019 Patient Education: metoprolol succinate- [employer] Co upon [id number] https://www.[employer]/resources/getResource/61/gw242261-81kh-8r81-96 Completed 04/11/2019 Patient Education: Metformin Patient Savings Message Alert Completed 04/11/2019 Patient Education: cephalexin- [employer] Coupon [id number] https://www.[employer]/resources/getResource/61/7qcc2632-4x5k-4238-mp Completed 04/11/2019 Visit Diagnosis Plan: Folliculitis Discussion: Bactrim and topical bactroban ICD-9 : 704.8 ICD-10 : L73.9 03/01/2019 Visit Diagnosis Plan: Sinus tachycardia Discussion: St art low dose metoprolol ER 25mg daily Monitor pulse Sees Cardiology next month ICD-9 : 427.89 ICD-10 : R00.0 03/01/2019 Appointment: Janneth Shrestha WPtel: [address] [place], [place] [address] [place] FOLLOW UP 03/01/2019 Patient Education: mupirocin- [employer] Coupon [id number] https://www.[employer]/resources/getResource/61/dh160ui1-19td-077j-sg Completed 03/01/2019 Appointment: Janneth Shrestha WPtel: [address] [place], [place] [address] [place] CANCELED 12/20/2018 Visit Diagnosis Plan: Cellulitis [...] ICD-10 : M76.72 11/18/2018 Appointment: Vania García [address] [place], [place] [phone] [place] CANCELED 11/18/2018 Appointment: Janneth Shrestha WPtel: [address] [facility] [place] FOLLOW UP 11/18/2018 Patient Education: doxycycline monohydrate- [employer] Coupon [id number] https://www.Trust Metrics/samplemd/resources/getResource/61/jdk52007-c4x0-43j6-8m Completed 11/18/2018 Patient Education: prednisone- [employer] Coupon [id number] https://www.Trust Metrics/samplemd/resources/getResource/61/46yz1m5c-6kr7-1536-kx Completed 11/18/2018 Care Plan: Referral Order SNOMED-CT : 30 [id number] Pending 11/18/2018 Visit Diagnosis Plan: Venous insufficiency [...] evaluated in an ED whether it be [place] or wherever he's traveling. discussed the risk [...] ICD-10 : R23.3 11/09/2018 Appointment: Vania García [address] [place], [place] [address] ACUTE ILLNESS 11/09/2018 Patient Education: clindamycin HCl- [employer] Coupon [id number] https://www.[employer].Shoutlet/samplemd/resources/getResource/61/62pa22f6-uu91-8es8-1r Completed 11/09/2018 Appointment: Janneth Shrestha WPtel: [address] [place] [facility] [place] CANCELED 10/19/2018 Visit Diagnosis Plan: Pain [...] : L03.116 10/13/2018 Appointment: [facility] Patient cant pay copay till when [...] ICD-10 : M54.5 09/23/2018 Appointment: Vania García [address] [place] [address] ACUTE ILLNESS 09/23/2018 Patient Education: Medrol (Brenden)- [employer] Coupon [id number] https://www.Trust Metrics/sampleOpen Mile/resources/getResource/61/rqru138n-6499-30a7-30 Completed 09/23/2018 Visit Diagnosis Plan: Gastro-esophageal reflux disease without esophagitis Discussion: Start omeprazole ICD-9 : 530.81 ICD-10 : K21.9 09/06/2018 Visit Diagnosis Plan: Dysphagia, pharyngoesophageal ph ase Discussion: Referral for EGD ICD-9 : 787.24 ICD-10 : R13.14 09/06/2018 Appointment: Janneth Shrestha WPtel: [facility] [place] [address] ACUTE ILLNESS 09/06/2018 Patient Education: omeprazole- [employer] Coupon 20893 [id number] https://www.[employer].Shoutlet/[employer]/resources/getResource/61/696pl149-64o0-674i-09 Completed 09/06/2018 Care Plan: Referral Order SNOMED-CT : 30 2207344 Pending 09/06/2018 Visit Diagnosis Plan: Tinea corporis Discussion: nysta tin to be used bid until rash gone and then an additional 2 days. diflucan every 3 days for 3 doses. keep area clean and dry with no moisturizers. call office if no improvement in 2 weeks or if worsening. ICD-9 : 110.5 ICD-10 : B35.4 07/15/2018 Appointment: Vania García [address] [place], [place] [id number] ACUTE ILLNESS 07/15/2018 Patient Education: nystatin- [employer] Coupon [id number] https://www.Trust Metrics/samplemd/resources/getResource/61/70bda216-h4ja-73gv-2l Completed 07/15/2018 Patient Education: Plavix- [employer] Coupon [id number] https://www.Trust Metrics/samplemd/resources/getResource/61/12yq3y99-d91a-47wv-93 fa-c496g6148292.pdf Completed 07/15/2018 Patient Education: cyclobenzaprine- [employer] Coupon [id number] https://www.Trust Metrics/samplemd/resources/getResource/61/67626p3b-3y98-52b4-vz Completed 07/15/2018 Visit Diagnosis Plan: Cellulitis of [...] ICD-10 : L03.032 2018 Appointment: Mandy Hollins Formerly named [facility] [employer] [address] FOLLOW UP 2018 Patient Education: mupirocin- [employer] Coupon [id number] https://www.Trust Metrics/samplemd/resources/getResource/61/o6ld76r4-6004-4431-7g Completed 2018 Visit Diagnosis Plan: Cellulitis of [...] ICD-10 : R20.9 04/14/2018 Appointment: Mandy Hollins Formerly named [facility] [employer] [address] FOLLOW UP 04/14/2018 Visit Diagnosis Plan: [...] ICD-10 : G47.00 03/18/2018 Appointment: Vania García [address] [place], [place] [address] ACUTE ILLNESS 03/18/2018 Patient Education: cyclobenzaprine- [employer] Coupon [id number] https://www.[employer].Shoutlet/samplemd/resources/getResource/61/3393w262-0dr4-857k-y7 Completed 03/18/2018 Visit Diagnosis Plan: Other postprocedur al complications and disorders of the circulatory system, not elsewhere classified Discussion: discussed with dr. shrestha and patient was instructed to contact the [facility]. due to uncontrolled pain, continued [...] ICD-10 : R21 01/26/2018 Appointment: Vania García [address] [place], [place] [id number] [place] [address] Follow Up 01/26/2018 Appointment: Janneth Shrestha WPtel: [address] [facility] NO SHOW 01/06/2018 Visit Diagnosis Plan: [...] : I97.89 12/22/2017 Appointment: Vania García [address] [facility] ACUTE ILLNESS 12/22/2017 Visit Diagnosis Plan: Unspecified [...] : J01.90 10/06/2017 Appointment: Vania García [address] [facility] ACUTE ILLNESS 10/06/2017 Patient Education: Patient Medication Summary Completed 10/06/2017 Appointment: Vania García [address] [place], [place] [phone] ER Follow UP 08/17/2017 Appointment: Vania García [address] [facility] [place] CANCELED 07/03/2017 Appointment: Janneth Shrestha WPtel: [address] [facility] [place] canceled at 8:05 this [...] 02/03/2017 Appointment: Janneth Shrestha WPtel: [address] [facility] [place] [address] Follow Up 02/03/2017 Patient Education: Patient Medication [...] Discussion: re isabella sent for dr garcia gill tender. ICD-9 : 729.5 ICD-10 : M79.672 11/25/2016 Visit Diagnosis Plan: Insomnia, unspecified Recommenda tions: resolved with lunesta. continue taking as prescribed. ICD-9 : 780.52 ICD-10 : G47.00 11/25/2016 Appointment: Vania García [address] [place], [place] [id number] FOLLOW UP 11/25/2016 Patient Education: Patient Medication [...] ICD-10 : G47.00 11/14/2016 Appointment: Vania García [address] [place] [address] ACUTE ILLNESS 11/14/2016 Patient Education: Patient Medication Summary Completed 11/14/2016 Visit Diagnosis Plan: Acute upper respiratory infectio n, unspecified Discussion: Rxs as above Continue OTC and supportive meds Encouraged smoking cessation Follow up PRN ICD-9 : 465.9 ICD-10 : J06.9 04/02/2016 Appointment: Ester Grande [address] [place], [place] [address] ACUTE ILLNESS 04/02/2016 Patient Education: Patient Medication Summary Completed 04/02/2016 Visit Plan: Rxs as above Supportive care reviewed Follow up PRN 11/29/2015 Appointment: Ester Grande [address] [place], [place] [address] 11/27 confirmed~sl ACUTE ILLNESS 11/29/2015 [...] Grande [address] [facility] 06/25 lm ~sl 06/26 phone not on~sl FOLLOW UP 06/27/2015 Patient Education: Patient Medication Summary Completed 06/27/2015 Care Plan: X-RAY EXAM RIBS UNI 2 VIEWS L OINC : 04589-8 Pending 06/27/2015 Referral: Héctor Woodard WPtel: [address] [facility] 05/29 Scheduled with sena ~ Appointment Re quested 06/26/2015 Referral: Cameron Khanna WPtel: [address] [facility] [place] Referral Initiated 06/11/2015 Referral: Marco Antonio Green WPtel: [address] [place] [id number] 05/30/15 Needs to be there at pre op time per ~sl Initiated 06/04/2015 Visit Plan: Will get all necessary refer rals set up - CTS, Uro and G/S Swallow study and routine labs ordered Will further investigate left leg pain with EMG if not cardio related 05/24/2015 [facility]ment[facility] [facility] 05/24/2015 Patient Education: Patient Medication Summary Completed 05/24/2015 Care Plan: Referral Order SNOMED-CT : 30 [id number] Pending 05/24/2015 Care Plan: Referral Order SNOMED-CT : 30 [id number] Pending 05/24/2015 Care Plan: Referral Order SNOMED-CT : 30 1070372 Pending 05/24/2015 Referral: Sudheer Gann WPtel: [address] [facility] [place] Referral Appointment Requested Referral: Alfonzo Andujar WPtel: [address] [facility] [place] Referral Initiated Referral: [facility] [address] [id number] [place] Referral Completed Referral: Jey Cameron BismarkLisandra WPtel: [address] [place] [address] [place] Referral Appointment Requested Referral: RoseBrianna WPtel: [address] [place] [address] [place] Referral Initiated Referral: Héctor Woodard WPtel: [address] [place] [address] [place] 05/24/15 [facility] office suggested he see another card. ~sl Initiated Referral: Alfonzo Andujar WPtel: [address] [place] [address] [place] Referral Appointment Requested Referral: Marco Antonio Green WPtel: [address] [place] [address] [place] Referral Appointment Requested Instructions Comment . [...]
--- OUTSIDE RECORDS SUMMARY | 2019-09-02 12:13 | XMS REPORT | CCD ---
Author Author [place] Organization JANNETH SHRESTHA DO [facility] Address [address] [place] [address] Phone Unavailable Care Team Providers Care Fisher Pot Name Role Phone Janneth Shrestha D.O., PP Unavailable CCM Unavailable Summary Purpose Interface Exchange Insurance Providers Payer name Policy type / Coverage type Covered libertarian ID Effective Begin Date Effective End Date Blue Cross Blue Shield Blue Cross/Blue Shield [id number] Unknown Family History Family History data not found Social History Social History Element Codes Description Effective Dates Marital status Unknown 05/24/2015 Number of children Unknown 2 05/24/2015 Employment Unknown Currently employed 05/24/[address]: 13821696 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 [...] Fill Instructions Levaquin 500 mg tablet RxNorm: 171335 1 Tablet(s) Oral QD 08/18/2019 08/25/2019 Active metoprolol succinate ER 50 mg tablet,extended release 24 hr RxNorm: 936277 1 Tablet(s) Oral QD 08/01/2019 08/18/2019 Inactive cyclobenzaprine 10 mg tablet RxNorm: 343048 TAKE ONE TA BLET BY MOUTH AT BEDTIME NEEDED 07/12/2019 No Stop Date Active cephalexin 500 mg tablet RxNorm: 911698 1 Tablet(s) Oral three times a day 07/05/2019 07/12/2019 Inactive cyclobenzaprine 10 mg tablet RxNorm: 921272 TAKE ONE TA BLET BY MOUTH AT BEDTIME NEEDED 05/20/2019 07/11/2019 Inactive metformin ER 1,000 mg tablet,extended release 24hr RxNorm: 1 527730 1 Tablet(s) Oral two times a day replaces 500mg dose 05/17/2019 11/13/2019 Active [AttnRPh: Saving apply/adjudicate RxGRP:[id number] RxBIN:[id number] RxPCN: ID#:[id number]] ReliOn Prime Test Strips RxNorm: 1 Unit [...] 05/01/2019 Inactive Plavix 75 mg tablet RxNorm: 593703 TAKE ONE TABLET BY MOUTH DAILY 0 04/25/2019 04/26/2019 Inactive Plavix 75 mg tablet RxNorm: 359708 TAKE ONE TABLET BY MOUTH DAILY 0 04/25/2019 04/24/2019 Inactive Xarelto 20 mg tablet RxNorm: 1983955 1 Tablet(s) Oral QD 04/25/2019 0 07/04/2019 Inactive amiodarone 200 mg tablet RxNorm: 323609 1 Tablet(s) Oral QD 020 07/04/2019 Inactive metformin ER 500 mg 24 hr tablet,extended release RxNorm: 18 43792 1 Tablet(s) Oral two times a day 04/25/2019 05/16/2019 Inactive prednisone 20 mg tablet RxNorm: 051554 1 Tablet(s) Oral two jn es a day 04/25/2019 05/01/2019 Inactive aspirin 81 mg tablet,delayed release RxNorm: 511983 1 Tablet(s) Oral QD 04/11/2019 No Stop Date Active pantoprazole 40 mg tablet,delayed release RxNorm: 903566 1 Tabl et(s) Oral QAM 04/11/2019 08/18/2019 Inactive Vitamin C 1,000 mg tablet RxNorm: 022771 1 Tablet(s) Oral QD 201908/18/2019 Inactive Xarelto 15 mg tablet RxNorm: 1417134 1 Tablet(s) Oral QD 04/11/2019 0 04/24/2019 Inactive metformin ER 500 mg 24 hr tablet,extended release RxNorm: 18 52988 1 Tablet(s) Oral QD 04/11/2019 04/24/2019 Inactive cephalexin 500 mg capsule RxNorm: 962510 1 Capsule(s) Oral thre e times a day 04/11/2019 04/18/2019 Inactive metoprolol succinate ER 50 mg tablet,extended release 24 hr RxNorm: 943829 1 Tablet(s) Oral QD replaces 25mg dose 04/11/2019 05/01/2019 Inactive cyclobenzaprine 10 mg tablet RxNorm: 208447 TAKE ONE TA BLET BY MOUTH EVERY NIGHT AT BEDTIME NEEDED 03/11/2019 No Stop Date Active mupirocin 2 % topical ointment RxNorm: 136060 Applicati on Topical two times a day 03/01/2019 04/10/2019 Inactive metoprolol succinate ER 25 mg tablet,extended release 24 hr RxNorm: 537415 1 Tablet(s) Oral QD 03/01/2019 04/24/2019 Inactive Bactrim DS 800 mg-160 mg tablet RxNorm: 757367 1 Tablet(s) Oral two times a day 03/01/2019 03/11/2019 Inactive cyclobenzaprine 10 mg tablet RxNorm: 705335 TAKE ONE TA BLET BY MOUTH EVERY NIGHT AT BEDTIME NEEDED 01/10/2019 03/10/2019 Inactive Plavix 75 mg tablet RxNorm: 513711 TAKE ONE TABLET BY MOUTH DAILY 1 03/12/2018 04/24/2019 Inactive omeprazole 40 mg capsule,delayed release RxNorm: 943647 TAKE ONE CAPSULE BY MOUTH EVERY NIGHT AT BEDTIME FOR REFLUX 01/10/2019 05/16/2019 Inactive tramadol 50 mg tablet RxNorm: 147414 1 Tablet(s) Oral f our times a day as needed 01/03/2019 01/03/2019 Inactive doxycycline monohydrate 100 mg capsule RxNorm: 1531084 1 Capsule(s) Oral two times a day 11/22/2018 12/13/2018 Inactive prednisone 20 mg tablet RxNorm: 190611 1 Tablet(s) Oral two jn es a day 11/22/2018 11/29/2018 Inactive Levaquin 750 mg tablet RxNorm: 799922 Tablet(s) Oral 11/18/201802/28 Inactive prednisone 20 mg tablet RxNorm: 903093 1 Tablet(s) Oral two jn es a day 11/18/2018 11/21/2018 Inactive tramadol 50 mg tablet RxNorm: 021487 Tablet(s) Oral 11/18/20182018 Inactive doxycycline monohydrate 100 mg capsule RxNorm: 1944748 1 Capsule(s) Oral two times a day 11/18/2018 11/21/2018 Inactive Plavix 75 mg tablet RxNorm: 077408 TAKE ONE TABLET BY MOUTH DAILY 0 11/10/2018 01/08/2019 Inactive clindamycin HCl 300 mg capsule RxNorm: 018002 1 Capsule (s) Oral three times a day 11/09/2018 11/19/2018 Inactive Keflex 500 mg capsule RxNorm: 751338 1 Capsule(s) PO BID 10/13/2018 0 10/22/2018 Inactive Medrol (Brenden) 4 mg tablets in a dose pack RxNorm: 684254 Tablet(s) take as directed PO 09/23/2018 10/12/2018 Inactive omeprazole 40 mg capsule,delayed release RxNorm: 556014 1 Capsule(s) PO QHS for reflux 09/06/2018 11/04/2018 Inactive Diflucan 150 mg tablet RxNorm: 617863 1 Tablet(s) PO Q72H 07/15/2018 09/05/2018 Inactive cyclobenzaprine 10 mg tablet RxNorm: 711449 1 Tablet(s) PO QHS as needed 07/15/2018 10/12/2018 Inactive nystatin 100,000 unit/gram topical cream RxNorm: 730705 1 Gram( s) TOP BID 07/15/2018 09/05/2018 Inactive Plavix 75 mg tablet RxNorm: 063490 1 Tablet(s) PO QD 07/15/201810/12 Inactive cyclobenzaprine 10 mg tablet RxNorm: 818908 1 Tablet(s) PO QHS as needed 06/10/2018 06/09/2018 Inactive cyclobenzaprine 10 mg tablet RxNorm: 903248 TAKE ONE TA BLET BY MOUTH EVERY NIGHT AT BEDTIME NEEDED 05/10/2018 06/10/2018 Inactive mupirocin 2 % topical ointment RxNorm: 472488 1 Application TOP BID 2018 05/25/2018 Inactive 22 gram cyclobenzaprine 10 mg tablet RxNorm: 403065 1 Tablet(s) PO QHS as needed 04/14/2018 06/09/2018 Inactive doxycycline hyclate 100 mg tablet RxNorm: 2495288 1 Tablet(s) PO BI D 04/14/2018 04/23/2018 Inactive cyclobenzaprine 10 mg tablet RxNorm: 314788 1 Tablet(s) PO QHS as needed 04/07/2018 04/13/2018 Inactive Bactrim DS 800 mg-160 mg tablet RxNorm: 283069 1 Tablet(s) PO BID 0 03/18/2018 03/27/2018 Inactive cyclobenzaprine 10 mg tablet RxNorm: 216808 1 Tablet(s) PO QHS as needed 03/18/2018 04/06/2018 Inactive triamcinolone acetonide 0.1 % topical cream RxNorm: 4084007 APPLY TO AFFECTED AREA(S) TWO TIMES A DAY 02/03/2018 02/12/2018 Inactive triamcinolone acetonide 0.1 % topical cream RxNorm: 3166453 1 Application TOP BID 01/26/2018 02/02/2018 Inactive Medrol (Brenden) 4 mg tablets in a dose pack RxNorm: 335026 TAKE BY MOUTH INSTRUCTED - PER PACKAGE INSTRUCTIONS 12/11/2017 12/16/2017 Inactive Medrol (Brenden) 4 mg tablets in a dose pack RxNorm: 408991 Tablet(s) P O 10/06/2017 12/10/2017 Inactive Lunesta 3 mg tablet RxNorm: 919386 1 Tablet(s) PO QHS 11/25/201608/2016 Inactive Lunesta 3 mg tablet RxNorm: 303836 1 Tablet(s) PO QHS 11/14/201610/2016 Inactive Bactrim DS 800 mg-160 mg tablet RxNorm: 404078 1 Tablet(s) PO BID 0 11/14/2016 11/23/2016 Inactive Epi E-Z Pen 0.3 mg/0.3 mL injection, auto-injector RxNorm: 1 575600 Milliliter(s) IM Use as Directed 06/25/2016 09/05/2018 Inactive amoxicillin 875 mg tablet RxNorm: 974719 1 Tablet(s) PO BID 017 04/11/2016 Inactive prednisone 20 mg tablet RxNorm: 387643 1 Tablet(s) PO BID 04/02/2016 04/06/2016 Inactive azithromycin 250 mg tablet RxNorm: 414374 2 Tablet(s) P O on day one then 1 tab on days 2-5 11/29/2015 11/28/2015 Inactive Medrol (Brenden) 4 mg tablets in a dose pack RxNorm: 031851 Take as directed 11/29/2015 11/13/2016 Inactive meloxicam 15 mg tablet RxNorm: 708471 1 Tablet(s) PO QD 07/02/2015 Inactive Chantix Starting Month Box 0.5 mg (11)-1 mg (42) table ts in dose pack RxNorm: 946426 Tablet(s) PO As Directed 06/20/2015 07/10/2015 Inactive omeprazole 40 mg capsule,delayed release RxNorm: 933769 1 Capsu le(s) PO QD 05/31/2015 11/13/2016 Inactive omeprazole 40 mg capsule,delayed release RxNorm: 038348 1 Capsu le(s) PO QD 05/31/2015 05/30/2015 Inactive Multivitamin And Mineral oral RxNorm: oral No Start Date Active Wellbutrin SR 150 mg tablet,sustained-release RxNorm: 345617 1 Tablet(s) PO BID No Start Date 11/13/2016 Inactive gabapentin 100 mg capsule RxNorm: 706854 1 Capsule(s) PO TID No Sta rt Date 03/17/2018 Inactive Chantix Starting Month Box 0.5 mg (11)-1 mg (42) table ts in dose pack RxNorm: 779631 Tablet(s) PO As Directed No Start Date 06/19/2015 Inactive Eliquis 5 mg tablet RxNorm: 3215523 1 Tablet(s) PO BID No Start Date 03/17/2018 Inactive Lactobacillus acidophilus-Bifidobacterium longum oral RxNorm: oral No Start Date 07/04/2019 Inactive aspirin 325 mg tablet RxNorm: 197602 1 Tablet(s) PO QD No Start Date 11/13/2016 Inactive clindamycin HCl 300 mg capsule RxNorm: 249495 2 Capsule(s) PO Q8H N o Start Date 03/17/2018 Inactive Fish Oil 1,000 mg (120 mg-180 mg) capsule RxNorm: 1 Caps ule(s) PO QD No Start Date 09/05/2018 Inactive aspirin 81 mg tablet RxNorm: 855975 1 Tablet(s) PO QD No Start Date 1 03/28/2017 Inactive Fish Oil 1,000 mg capsule RxNorm: 1 Capsule(s) PO QD No Start Date 11/13/2016 Inactive Baby Aspirin 81 mg chewable tablet RxNorm: 621371 1 Tablet(s) P O BID No Start Date 02/02/2017 Inactive Xarelto 10 mg tablet RxNorm: 1829675 1 Tablet(s) PO QD No Start Date 01/25/2018 Inactive tramadol 50 mg tablet RxNorm: 695592 1-2 Tablet(s) PO Q6H No Start Date 03/17/2018 Inactive meloxicam 15 mg tablet RxNorm: 371456 1 Tablet(s) PO QD No Start Da te 07/01/2015 Inactive Epi E-Z Pen 0.3 mg/0.3 mL injection, auto-injector RxNorm: 1 729469 Milliliter(s) IM Use as Directed No Start Date 06/24/2016 Inactive Plavix 75 mg tablet RxNorm: 940755 1 Tablet(s) PO QD No Start Date Inactive Medication Administered No Medication Administered data Immunizations No Immunization data Results Observation Observation Code Item Item Code Result Date S ervice Location COMPREHENSIVE METABOLIC 32862 AST 25 U/L 2018 Unknown COMPREHENSIVE METABOLIC 46354 ALT 28 U/L 2018 Unknown COMPREHENSIVE METABOLIC 80006 BUN 13 mg/dL 2018 Unknown COMPREHENSIVE METABOLIC 15540 ALBUMIN 4.2 g/dL 2018 Unknown COMPREHENSIVE METABOLIC 52561 CHLORIDE 104 mmol/L 11/09 Unknown COMPREHENSIVE METABOLIC 39815 Bili Total 0.5 mg/dL 11/09 Unknown COMPREHENSIVE METABOLIC 66029 ALK PHOS 72 U/L 2018 Unknown COMPREHENSIVE METABOLIC 35027 SODIUM 139 mmol/L 11/09 Unknown COMPREHENSIVE METABOLIC 22109 CREATININE 0.98 mg/dL 10/18 Unknown COMPREHENSIVE METABOLIC 26387 CALCIUM 9.1 mg/dL 2018 Unknown COMPREHENSIVE METABOLIC 86369 POTASSIUM 3.7 mmol/L 11/09 Unknown COMPREHENSIVE METABOLIC 74954 Total Protein 7.2 g/dL Unknown COMPREHENSIVE METABOLIC 77285 Glucose 137 mg/dL 2018 Unknown COMPREHENSIVE METABOLIC 21555 Bicarbonate 24 mmol/L 10/18 Unknown COMPREHENSIVE METABOLIC 95225 AGAP 11 mmol/L 2018 Unknown COMPLETE BLOOD COUNT 2251103 WBC 4.6 10e9/L 11/10/19 19 Unknown COMPLETE BLOOD COUNT [id number] RBC 4.88 10e12/L 2018 Unknown COMPLETE BLOOD COUNT [id number] HEMOGLOBIN 14.7 g/dL 11/10/19 19 Unknown COMPLETE BLOOD COUNT 6857033 HEMATOCRIT 43.7 % 11/10/19 19 Unknown COMPLETE BLOOD COUNT 2563631 MCV 89.5 fL 9 Unknown COMPLETE BLOOD COUNT 5831227 MCH 30.1 pg 9 Unknown COMPLETE BLOOD COUNT 5751671 MCHC 33.6 g/dL 9 Unknown COMPLETE BLOOD COUNT 3445947 PLATELET COUNT 179 10e9/L Unknown COMPLETE BLOOD COUNT 7251577 Mean Plt Volume 11.6 fL Unknown COMPLETE BLOOD COUNT 1567449 Neut Auto 55.5 % 9 Unknown COMPLETE BLOOD COUNT 6195575 Lymph Auto 28.7 % 11/10/19 19 Unknown COMPLETE BLOOD COUNT 1849196 [place] Auto 7.9 % 9 Unknown COMPLETE BLOOD COUNT 0718017 RDW 13.2 % 9 Unknown COMPLETE BLOOD COUNT 9150196 Eos Auto 7.7 % 9 Unknown COMPLETE BLOOD COUNT 5601353 Baso Auto 0.2 % 9 Unknown COMPLETE BLOOD COUNT 1850758 Neutrophil Abs 2.55 10e9/L Unknown COMPLETE BLOOD COUNT 9917634 Lymphocyte Abs 1.32 10e9/L Unknown COMPLETE BLOOD COUNT [id number] Monocyte Abs 0.36 10e9/L 10/18 Unknown COMPLETE BLOOD COUNT [id number] Eosinophil Abs 0.35 10e9/L Unknown COMPLETE BLOOD COUNT 5917412 RDW-SD 42.2 fL 9 Unknown COMPLETE BLOOD COUNT [id number] Basophil Abs 0.01 10e9/L 10/18 Unknown LIPID GROUP 19538 Cholesterol 205 mg/dL 11/09/2018 Unkno wn LIPID GROUP 50830 Triglyceride 268 mg/dL 11/09/2018 Unkn own LIPID GROUP 73668 HDL CHOLESTEROL 35 mg/dL 11/09/2018 U nknown LIPID GROUP 98110 Chol/HDL Ratio 5.86 ratio 11/09/2018 U nknown LIPID GROUP 12332 NON-HDL Chol 170 mg/dL 11/09/2018 Unkn own LIPID GROUP 43766 LDL Cholesterol 116 mg/dL 11/09/2018 U nknown PT 2338989 PT 12.7 Seconds 11/09/2018 Unknow n PT [id number] INR 0.9 11/09/2018 Unknown GFR CALC 0818416 GFR Non Afr Amr >60 mL/min 11/09/2018 Un known GFR CALC 8984201 GFR Afr Amr >60 mL/min 11/09/2018 Unknow n ACT PARTIAL THRMBOPLASTIN TIME 40108 PTT 34.0 [place] nds 11/09/2018 Unknown LIPID GROUP 05613 Cholesterol 186 mg/dL 2018 Unkno wn LIPID GROUP 30313 Triglyceride 229 mg/dL 2018 Unkn own LIPID GROUP 11843 HDL CHOLESTEROL 36 mg/dL 2018 U nknown LIPID GROUP 71466 Chol/HDL Ratio 5.17 ratio 2018 U nknown LIPID GROUP 47356 NON-HDL Chol 150 mg/dL 2018 Unkn own LIPID GROUP 71431 LDL Cholesterol 104 mg/dL 2018 U nknown GFR CALC 7371225 GFR Non Afr Amr >60 mL/min 2018 Un known GFR CALC 4053382 GFR Afr Amr >60 mL/min 2018 Unknow n COMPREHENSIVE METABOLIC 67529 AST 23 U/L 2018 Unknown COMPREHENSIVE METABOLIC 04069 ALT 22 U/L 2018 Unknown COMPREHENSIVE METABOLIC 98470 BUN 15 mg/dL 2018 Unknown COMPREHENSIVE METABOLIC 96049 ALBUMIN 4.1 g/dL 2018 Unknown COMPREHENSIVE METABOLIC 73474 CHLORIDE 106 mmol/L 05/06 Unknown COMPREHENSIVE METABOLIC 12346 Bili Total 0.6 mg/dL 05/06 Unknown COMPREHENSIVE METABOLIC 47953 ALK PHOS 61 U/L 2018 Unknown COMPREHENSIVE METABOLIC 90082 SODIUM 141 mmol/L 05/06 Unknown COMPREHENSIVE METABOLIC 79801 CREATININE 0.91 mg/dL 04/17 Unknown COMPREHENSIVE METABOLIC 55873 CALCIUM 9.2 mg/dL 2018 Unknown COMPREHENSIVE METABOLIC 56297 POTASSIUM 3.8 mmol/L 05/06 Unknown COMPREHENSIVE METABOLIC 43465 Total Protein 7.0 g/dL Unknown COMPREHENSIVE METABOLIC 50442 Glucose 97 mg/dL 2018 Unknown COMPREHENSIVE METABOLIC 60325 Bicarbonate 28 mmol/L 04/17 Unknown COMPREHENSIVE METABOLIC 82561 AGAP 7 mmol/L 2018 Unknown THYROID STIMULATING HORMONE 46691 TSH 2.094 uIU/mL 2018 Unknown COMPLETE BLOOD COUNT 8842627 WBC 5.5 10e9/L 05/07/19 19 Unknown COMPLETE BLOOD COUNT 7077099 RBC 4.61 10e12/L 2018 Unknown COMPLETE BLOOD COUNT 6015478 HEMOGLOBIN 13.6 g/dL 05/07/19 19 Unknown COMPLETE BLOOD COUNT 8234277 HEMATOCRIT 40.0 % 05/07/19 19 Unknown COMPLETE BLOOD COUNT 3931298 MCV 86.8 fL 9 Unknown COMPLETE BLOOD COUNT 4765938 MCH 29.5 pg 9 Unknown COMPLETE BLOOD COUNT 5658678 MCHC 34.0 g/dL 9 Unknown COMPLETE BLOOD COUNT 8453841 PLATELET COUNT 197 10e9/L Unknown COMPLETE BLOOD COUNT 1345138 Mean Plt Volume 10.8 fL Unknown COMPLETE BLOOD COUNT 6738847 Neut Auto 49.6 % 9 Unknown COMPLETE BLOOD COUNT 1040957 Lymph Auto 36.8 % 05/07/19 19 Unknown COMPLETE BLOOD COUNT 2408716 [place] Auto 8.1 % 9 Unknown COMPLETE BLOOD COUNT 8271407 RDW 15.3 % 9 Unknown COMPLETE BLOOD COUNT 6513113 Eos Auto 5.3 % 9 Unknown COMPLETE BLOOD COUNT 6905842 Baso Auto 0.2 % 9 Unknown COMPLETE BLOOD COUNT 1969210 Neutrophil Abs 2.73 10e9/L Unknown COMPLETE BLOOD COUNT 2511452 Lymphocyte Abs 2.02 10e9/L Unknown COMPLETE BLOOD COUNT 1518696 Monocyte Abs 0.45 10e9/L 04/17 Unknown COMPLETE BLOOD COUNT 1446895 Eosinophil Abs 0.29 10e9/L Unknown COMPLETE BLOOD COUNT 8884494 RDW-SD 47.9 fL 9 Unknown COMPLETE BLOOD COUNT [id number] Basophil Abs 0.01 10e9/L 04/17 Unknown Procedures Procedure Codes Date CEFTRIAXONE SODIUM INJECTION CPT-4: J0696 11/09/2018 THER/PROPH/DIAG INJ SC/IM CPT-4: 19179 11/09/2018 ROUTINE VENIPUNCTURE CPT-4: 12323 11/09/2018 COMPREHEN METABOLIC PANEL CPT-4: 48143 11/09/2018 COMPLETE CBC W/AUTO DIFF WBC CPT-4: 59520 11/09/2018 LIPID PANEL CPT-4: 39383 11/09/2018 PROTHROMBIN TIME CPT-4: 16107 11/09/2018 THROMBOPLASTIN TIME PARTIAL CPT-4: 76727 11/09/2018 THER/PROPH/DIAG INJ SC/IM CPT-4: 74007 09/23/2018 KETOROLAC TROMETHAMINE INJ CPT-4: J1885 09/23/2018 ROUTINE VENIPUNCTURE CPT-4: 95245 2018 ASSAY THYROID STIM HORMONE CPT-4: 69964 2018 COMPREHEN METABOLIC PANEL CPT-4: 86050 2018 COMPLETE CBC W/AUTO DIFF WBC CPT-4: 10699 2018 LIPID PANEL CPT-4: 99174 2018 CEFTRIAXONE SODIUM INJECTION CPT-4: J0696 04/14/2018 THER/PROPH/DIAG INJ SC/IM CPT-4: 31491 04/14/2018 CEFTRIAXONE SODIUM INJECTION CPT-4: J0696 03/18/2018 THER/PROPH/DIAG INJ SC/IM CPT-4: 60388 03/18/2018 THER/PROPH/DIAG INJ SC/IM CPT-4: 51867 01/26/2018 KETOROLAC TROMETHAMINE INJ CPT-4: J1885 01/26/2018 CEFTRIAXONE SODIUM INJECTION CPT-4: J0696 12/22/2017 THER/PROPH/DIAG INJ SC/IM CPT-4: 25017 12/22/2017 ROUTINE VENIPUNCTURE CPT-4: 71794 11/14/2016 COMPLETE CBC W/AUTO DIFF WBC CPT-4: 62808 11/14/2016 PT/PTT CPT-4: 7324712 11/14/2016 Vital Signs Date Vital 08/18/2019 Blood [...] 1: 134/82 Code: 8480-6 BMI: 23.9 Code: 73235-2 Heart Rate 1: 100 bpm Height: 6'4" [...] 1: 138/70 Code: 8480-6 BMI: 22.6 Code: 38305-0 Heart Rate 1: 97 bpm Height: 6'4" [...] 1: 142/80 Code: 8480-6 BMI: 20.9 Code: 86225-5 Heart Rate 1: 108 bpm Height: 6'4" Respiratory Rate: 20 bpm SpO2: 97% Tempera ture: 36.6 (C) / 97.9 (F) Weight: 172 lbs 01/26/2018 Blood Pressure 1: 130/82 Code: 8480-6 Heart Rate 1: 98 bpm Respiratory Rate: 18 bpm SpO2: 99% Temperature: 35.7 (C) / 96.3 (F) We ight: 175 lbs 12/22/2017 Blood Pressure 1: 124/68 Code: 8480-6 BMI: 22.3 Code: 76850-3 Heart Rate 1: 100 bpm Height: 6'4" Respiratory Rate: 20 bpm SpO2: 98% Tempera ture: 36.7 (C) / 98.0 (F) Weight: 183 lbs 10/06/2017 Blood Pressure 1: 130/86 Code: 8480-6 BMI: 21.1 Code: 62854-6 Heart Rate 1: 92 bpm Height: 6'4" Respiratory Rate: 18 bpm SpO2: 98% Tempera ture: 36.9 (C) / 98.5 (F) Weight: 173 lbs 02/03/2017 Blood Pressure 1: 144/92 Code: 8480-6 BMI: 20.8 Code: 26913-6 Heart Rate 1: 88 bpm Height: 6'4" Respiratory Rate: 20 bpm SpO2: 97% Tempera ture: 36.7 (C) / 98.1 (F) Weight: 171 lbs 11/25/2016 Blood Pressure 1: 126/84 Code: 8480-6 Heart Rate 1: 76 bpm Respiratory Rate: 20 bpm SpO2: 96% Temperature: 36.9 (C) / 98.4 (F) We ight: 170 lbs 11/14/2016 Blood Pressure 1: 126/82 Code: 8480-6 BMI: 20.7 Code: 65435-9 Heart Rate 1: 86 bpm Height: 6'4" Respiratory Rate: 18 bpm SpO2: 96% Tempera ture: 35.8 (C) / 96.5 (F) Weight: 170 lbs 04/02/2016 Blood Pressure 1: 124/78 Code: 8480-6 Heart Rate 1: 88 bpm Respiratory Rate: 24 bpm SpO2: 97% Temperature: 36.1 (C) / 97.0 (F) We ight: 161 lbs 11/29/2015 Blood Pressure 1: 124/68 Code: 8480-6 BMI: 19.2 Code: 93709-1 Heart Rate 1: 94 bpm Height: 6'4" Respiratory Rate: 18 bpm SpO2: 97% Tempera ture: 36.1 (C) / 97.0 (F) Weight: 158 lbs 06/27/2015 Blood Pressure 1: 128/78 Code: 8480-6 BMI: 18.7 Code: 38575-6 Heart Rate 1: 72 bpm Height: 6'4" Respiratory Rate: 22 bpm SpO2: 98% Tempera ture: 35.9 (C) / 96.6 (F) Weight: 154 lbs 05/24/2015 Blood Pressure 1: 112/78 Code: 8480-6 BMI: 19.7 Code: 65343-6 Heart Rate 1: 78 bpm Height: 6'4" [...] care Encounters Encounter Performer Location Codes Date ([id number]) OFFICE/OUTPATIENT VISIT EST Diagnosis: Puncture wound of right foot[ICD10: S91.331A] Diagnosis: DM w/o complication type II, uncontrolled[ICD10: E11.65] Janneth SHRESTHA [facility] CPT-4: 93110 08/18/2019 ([id number]) OFFICE/OUTPATIENT VISIT EST Diagnosis: Other specified local infections of the skin and subcutaneous tissue[ICD10: L08.89] Diagnosis: DM w/o complication type II, uncontrolled[ICD10: E11.65] Diagnosis: Right leg DVT[ICD10: I82.401] Janneth WARD [facility] CPT-4: 42962 07/05/2019 ([id number]) OFFICE/OUTPATIENT VISIT EST Diagnosis: 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, implant, or graft[ICD10: T85.818A] Diagnosis: DM w/o complication type II, uncontrolled[ICD10: E11.65] Janneth WARD [employer] [employer] CPT-4: 11262 05/17/2019 ([id number]) OFFICE/OUTPATIENT VISIT EST Diagnosis: Acute dermatitis[ICD10: L30.9] Diagnosis: DM w/o complication type II, uncontrolled[ICD10: E11.65] Diagnosis: Right leg DVT[ICD10: I82.401] Janneth WARD [employer] CPT-4: 59656 05/02/2019 ([id number]) OFFICE/OUTPATIENT VISIT EST Diagnosis: DM w/o complication type II, uncontrolled[ICD10: E11.65] Diagnosis: Allergic dermatitis[ICD10: L23.9] Diagnosis: Right leg DVT[ICD10: I82.401] Diagnosis: Paroxysmal atrial fibrillation[ICD10: I48.0] Diagnosis: Right calf pain[ICD10: M79.661] Janneth WARD [employer] CPT-4: 06294 04/25/2019 ([id number]) OFFICE/OUTPATIENT VISIT EST Diagnosis: DM w/o complication type II, uncontrolled[ICD10: E11.65] Diagnosis: 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, implant, or graft[ICD10: T85.818A] Diagnosis: Essential hypertension[ICD10: I10] Janneth SHRESTHA [facility] CPT-4: 32277 04/11/2019 ([id number]) OFFICE/OUTPATIENT VISIT EST Diagnosis: Sinus tachycardia[ICD10: R00.0] Diagnosis: Folliculitis[ICD10: L73.9] [facility] 69437 03/01/2019 ([id number]) OFFICE/OUTPATIENT VISIT EST Diagnosis: Cellulitis of left lower limb[ICD10: L03.116] Diagnosis: Tendinitis of left peroneus longus tendon[ICD10: M76.72] Janneth CLARK [facility] CPT-4: 18815 11/18/2018 ([id number]) OFFICE/OUTPATIENT VISIT EST Diagnosis: Cellulitis of left foot[ICD10: L03.116] Diagnosis: Spontaneous ecchymoses[ICD10: R23.3] Diagnosis: Venous insufficiency (chronic) (peripheral)[ICD10: I87.2] Diagnosis: Mixed hyperlipidemia[ICD10: E78.2] Vania CLARK [facility] [employer] [facility] CPT-4: 44477 11/09/2018 ([id number]) OFFICE/OUTPATIENT VISIT EST Diagnosis: Venous insufficiency (chronic) (peripheral)[ICD10: I87.2] Diagnosis: Cellulitis of left lower limb[ICD10: L03.116] Diagnosis: Pain in right foot[ICD10: M79.671] Vania CLARK [facility] CPT-4: 84811 10/13/2018 ([id number]) OFFICE/OUTPATIENT VISIT EST Diagnosis: Low back pain[ICD10: M54.5] Vania Taylor [facility] CPT-4: 56622 09/23/2018 ([id number]) OFFICE/OUTPATIENT VISIT EST Diagnosis: Gastro-esophageal reflux disease without esophagitis[ICD10: K21.9] Diagnosis: Dysphagia, pharyngoesophageal phase[ICD10: R13.14] Janneth SHRESTHA [facility] CPT-4: 27899 09/06/2018 ([id number]) OFFICE/OUTPATIENT VISIT EST Diagnosis: Tinea corporis[ICD10: B35.4] Vania SHRESTHA DO [facility] CPT-4: 08639 07/15/2018 ([id number]) OFFICE/OUTPATIENT VISIT EST Diagnosis: Cellulitis of left toe[ICD10: L03.032] Diagnosis: Mixed hyperlipidemia[ICD10: E78.2] M[facility] CPT-4: 06832 2018 OFFICE/OUTPATIENT VISIT EST Diagnosis: Cellulitis of left toe[ICD10: L03.032] Diagnosis: Unspecified disturbances of skin sensation[ICD10: R20.9] [facility] CPT-[facility]: 37554 04/14/2018 ([id number]) OFFICE/OUTPATIENT VISIT EST Diagnosis: Cellulitis of left toe[ICD10: L03.032] Diagnosis: Insomnia, unspecified[ICD10: G47.00] Vania SHRESTHA [facility] CPT-4: 77553 03/18/2018 ([id number]) OFFICE/OUTPATIENT VISIT EST Diagnosis: Other postprocedural complications and disorders of the circulatory system, not elsewhere classified[ICD10: I97.89] Diagnosis: Rash and other nonspecific skin eruption[ICD10: R21] Diagnosis: Pain in right leg[ICD10: M79.604] Vania SHRESTHA [facility] CPT-4: 34801 01/26/2018 ([id number]) OFFICE/OUTPATIENT VISIT EST Diagnosis: Other postprocedural complications and disorders of the circulatory system, not elsewhere classified[ICD10: I97.89] Diagnosis: Cellulitis of right lower limb[ICD10: L03.115] Vania SHRESTHA [facility] CPT-4: 43304 12/22/2017 ([id number]) OFFICE/OUTPATIENT VISIT EST Diagnosis: Acute sinusitis, unspecified[ICD10: J01.90] Diagnosis: Unspecified disturbances of skin sensation[ICD10: R20.9] Vania SHRESTHA DO [facility] CPT-4: 64900 10/06/2017 ([id number]) OFFICE/OUTPATIENT VISIT EST Diagnosis: Primary insomnia[ICD10: F51.01] Diagnosis: Pain in left shoulder[ICD10: M25.512] Diagnosis: Poisoning by other parasympatholytics [anticholinergics and antimuscarinics] and spasmolytics, accidental (unintentional), sequela[ICD10: T44.3X1S] Janneth SHRESTHA [facility] CPT-4: 87836 02/03/2017 OFFICE/OUTPATIENT VISIT EST Diagnosis: Insomnia, unspecified[ICD10: G47.00] Diagnosis: Constipation, unspecified[ICD10: K59.00] Diagnosis: Spontaneous ecchymoses[ICD10: R23.3] Diagnosis: Pain in left foot[ICD10: M79.672] Vania SHRESTHA [facility] CPT-4: 72302 11/25/2016 OFFICE/OUTPATIENT VISIT EST Diagnosis: Insomnia, unspecified[ICD10: G47.00] Diagnosis: Constipation, unspecified[ICD10: K59.00] Diagnosis: Spontaneous ecchymoses[ICD10: R23.3] Diagnosis: Other specified local infections of the skin and subcutaneous tissue[ICD10: L08.89] Vania SHRESTHA [facility] CPT-4: 99 213 11/14/2016 ([id number]) OFFICE/OUTPATIENT VISIT EST Diagnosis: Acute upper respiratory infection, unspecified[ICD10: J06.9] Ester SHRESTHA [facility] CPT-4: 94425 04/02/2016 ([id number]) OFFICE/OUTPATIENT VISIT EST Diagnosis: Acute upper respiratory infection, unspecified[ICD10: J06.9] Ester SHRESTHA [facility] CPT-4: 47753 11/29/2015 ([id number]) OFFICE/OUTPATIENT VISIT EST Diagnosis: Pain in thoracic spine[ICD10: M54.6] Diagnosis: Paresthesia of skin[ICD10: R20.2] Diagnosis: Dysphagia, unspecified[ICD10: R13.10] Ester SHRESTHA [facility] CPT-4: 92531 06/27/2015 ([id number]) OFFICE/OUTPATIENT VISIT NEW Diagnosis: Pain in left leg[ICD10: M79.605] Diagnosis: Male erectile dysfunction, unspecified[ICD10: N52.9] Diagnosis: Dysphagia, unspecified[ICD10: R13.10] Ester SHRESTHA [facility] CPT-4: 94446 05/24/2015 Plan of Care Planned Activity Notes [...] S91.331A 08/18/2019 Patient Education: Levaquin- [facility] Coupon [id number] https://www.Turbulenz/gis.to/resources/getResource/61/41v9e98d-1w82-115i-sr Completed 08/18/2019 Appointment: Janneth Shrestha WPtel: [address] [place], [place] [address] [place] CANCELED 08/16/2019 Appointment: Janneth Shrestha WPtel: [address] [place], [place] [address] [place] CANCELED 07/21/2019 Visit Diagnosis Plan: Other [...] : I82.401 07/05/2019 Appointment: Janneth Shrestha WPtel: [address] [place], [place] [id number] [place] FOLLOW UP 07/05/2019 Patient Education: cephalexin- [employer] Coupon [id number] https://www.gis.to.Zimplistic/sampleva/resources/getResource/61/z4288u67-5933-6400-w4 Completed 07/05/2019 Visit Diagnosis Plan: Blood clot [...] : E11.65 05/17/2019 Appointment: Janneth Shrestha WPtel: [address] [place], [place] [phone] [place] FOLLOW UP 05/17/2019 Patient Education: Metformin [...] : L30.9 05/02/2019 Appointment: Janneth Shrestha WPtel: [address] [place], [place] [phone] [place] FOLLOW UP 05/02/2019 Patient Education: metoprolol succinate- [facility] Co upon [id number] https://www.Turbulenz/gis.to/resources/getResourTappnGo/61/70493cf3-x8d7-156e-i2 Completed 05/02/2019 Visit Diagnosis Plan: DM w/o [...] I82.401 04/25/2019 Appointment: [facility]el[facility] [address] [facility] [facility] 04/25/2019 Patient Education: Metformin Patient Savings Message Alert Completed 04/25/2019 Patient Education: prednisone- [employer] Coupon [id number] https://www.Turbulenz/gis.to/resources/getResource/61/3to29rm2-r6sb-5f46-vf Completed 04/25/2019 Visit Diagnosis Plan: DM w/o [...] : T85.818A 04/11/2019 Appointment: Janneth Shrestha WPtel: [address] [place], [place] [phone] ACUTE ILLNESS 04/11/2019 Patient Education: metoprolol succinate- [employer] Co upon [id number] https://www.Turbulenz/gis.to/resources/getResource/61/lw462519-81za-2g74-47 Completed 04/11/2019 Patient Education: Metformin Patient Savings Message Alert Completed 04/11/2019 Patient Education: cephalexin- [employer] Coupon [id number] https://www.Turbulenz/gis.to/resources/getResource/61/1fdw6040-9t3m-6570-sr Completed 04/11/2019 Visit Diagnosis Plan: Folliculitis Discussion: Bactrim and topical bactroban ICD-9 : 704.8 ICD-10 : L73.9 03/01/2019 Visit Diagnosis Plan: Sinus tachycardia Discussion: St art low dose metoprolol ER 25mg daily Monitor pulse Sees Cardiology next month ICD-9 : 427.89 ICD-10 : R00.0 03/01/2019 Appointment: Janneth Shrestha WPtel: [address] [place], [place] [address] [place] FOLLOW UP 03/01/2019 Patient Education: mupirocin- [employer] Coupon 414378 93 https://www.Turbulenz/gis.to/resources/getResource/61/tc701if7-23oj-938y-vp Completed 03/01/2019 Appointment: Janneth Shrestha WPtel: [address] [place] [address] [place] CANCELED 12/20/2018 Visit Diagnosis Plan: Cellulitis [...] ICD-10 : M76.72 11/18/2018 Appointment: Vania García [address] [place], [place] [id number] [place] CANCELED 11/18/2018 Appointment: Janneth Shrestha WPtel: [address] [facility] [place] FOLLOW UP 11/18/2018 Patient Education: doxycycline monohydrate- [employer] Coupon 19890038 https://www.Turbulenz/samplemd/resources/getResource/61/pnf56337-t8u3-08o1-7a Completed 11/18/2018 Patient Education: prednisone- [employer] Coupon 13224 321 https://www.Turbulenz/samplemd/resources/getResource/61/75tz1d1h-0xd3-8465-gp Completed 11/18/2018 Care Plan: Referral Order SNOMED-CT : 30 4880481 Pending 11/18/2018 Visit Diagnosis Plan: Venous insufficiency [...] evaluated in an ED whether it be [place] or wherever he's traveling. discussed the risk [...] ICD-10 : R23.3 11/09/2018 Appointment: Vania García [address] [place], [place] [address] ACUTE ILLNESS 11/09/2018 Patient Education: clindamycin HCl- [employer] Coupon [id number] https://www.gis.to.Zimplistic/samplemd/resources/getResource/61/02qv96k3-ro91-9ci4-5u Completed 11/09/2018 Appointment: Janneth Shrestha WPtel[facility] [address] [facility] [place] CANC[facility]ED 10/19/2018 Visit Diagnosis Plan: Pain [...] : L03.116 10/13/2018 Appointment: [facility]ia Garc[facility] Patient cant pay copay till when he [...] : M54.5 09/23/2018 Appointment: Vania García [address] [place] [address] ACUTE ILLNESS 09/23/2018 Patient Education: Medrol ([place])- [employer] Coupon [phone] https://www.Turbulenz/samplerapt.fm/resources/getResource/61/buhl144z-9249-24k0-27 Completed 09/23/2018 Visit Diagnosis Plan: Dysphagia, pharyngoesophageal ph ase Discussion: Referral for EGD ICD-9 : 787.24 ICD-10 : R13.14 09/06/2018 Visit Diagnosis Plan: Gastro-esophageal reflux disease without esophagitis Discussion: Start omeprazole ICD-9 : 530.81 ICD-10 : K21.9 09/06/2018 Appointment: Janneth Shrestha WPtel: [facility] [place] [address] ACUTE ILLNESS 09/06/2018 Patient Education: omeprazole- [employer] Coupon 19544 355 https://www.gis.to.Zimplistic/gis.to/resources/getResource/61/747sx305-15x9-391e-41 Completed 09/06/2018 Care Plan: Referral Order SNOMED-CT : 30 1775641 Pending 09/06/2018 Visit Diagnosis Plan: Tinea corporis Discussion: nysta tin to be used bid until rash gone and then an additional 2 days. diflucan every 3 days for 3 doses. keep area clean and dry with no moisturizers. call office if no improvement in 2 weeks or if worsening. ICD-9 : 110.5 ICD-10 : B35.4 07/15/2018 Appointment: Vania García [address] [place], [place] [address] ACUTE ILLNESS 07/15/2018 Patient Education: nystatin- [employer] Coupon [id number] 7 https://www.gis.to.Zimplistic/samplemd/resources/getResource/61/33oai769-f3qr-51rm-4h Completed 07/15/2018 Patient Education: Plavix- [employer] Coupon 66369013 https://www.Turbulenz/samplemd/resources/getResource/61/08ia4k51-f79j-05zu-61 fa-m204p1487699.pdf Completed 07/15/2018 Patient Education: cyclobenzaprine- [employer] Coupon [id number] https://www.Turbulenz/samplemd/resources/getResource/61/97267s9h-0b99-03t8-ys Completed 07/15/2018 Visit Diagnosis Plan: Cellulitis of [...] ICD-10 : L03.032 2018 Appointment: Mandy Hollins [facility] Elastra [address] FOLLOW UP 2018 Patient Education: mupirocin- [employer] Coupon 449684 78 https://www.Turbulenz/samplemd/resources/getResource/61/c4ey89j0-4349-4727-9w Completed 2018 Visit Diagnosis Plan: Cellulitis of [...] : R20.9 04/14/2018 Appointment: Mandy Hollins [facility] [place] [address] FOLLOW UP 04/14/2018 Visit Diagnosis Plan: Insomnia, [...] ICD-10 : L03.032 03/18/2018 Appointment: Vania García [address] [place] [address] ACUTE ILLNESS 03/18/2018 Patient Education: cyclobenzaprine- [employer] Coupon 44240460 https://www.gis.to.Zimplistic/samplemd/resources/getResource/61/3389u913-4wk3-033p-r6 Completed 03/18/2018 Visit Diagnosis Plan: Rash and other nonspecific skin eruption Discussion: triamcinolone ordered to be used as directed. ICD-9 : 782.1 ICD-10 : R21 01/26/2018 Visit Diagnosis Plan: Other postprocedur al complications and disorders of the circulatory system, not elsewhere classified Discussion: discussed with dr. shrestha and patient was instructed to contact the [facility] due to uncontrolled pain, continued erythema, patient needs to be re-evaluated by the surgeon. 60 mg toradol given to patient. patient verbalized understanding and voiced he will contact them today for an appointment. ICD-9 : 997.1 ICD-10 : I97.89 01/26/2018 Appointment: Vania García [address] [place], [place] [id number] [place] [address] Follow Up 01/26/2018 Appointment: Janneth Shrestha WPtel: [address] [facility] [address] NO SHOW 01/06/2018 Visit Diagnosis Plan: [...] : I97.89 12/22/2017 Appointment: Vania García [address] [facility] ACUTE ILLNESS 12/22/2017 Visit Diagnosis Plan: Acute [...] : R20.9 10/06/2017 Appointment: Vania García [address] [facility] ACUTE ILLNESS 10/06/2017 Patient Education: Patient Medication Summary Completed 10/06/2017 Appointment: Vania García [address] [place], [place] [id number] ER Follow UP 08/17/2017 Appointment: Vania García [address] [facility] [place] CANCELED 07/03/2017 Appointment: Janneth Shrestha WPtel: [address] [id number] [place] canceled at 8:05 this morning. 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 ICD-9 : 729.5 ICD-10 : M79.672 11/25/2016 Visit Diagnosis Plan: Spontaneous ecchymoses Discussio n: labs wnl. instructed patient on side effects of plavix and aspirin. will continue to monitor. educated on being careful with movements to prevent injuries. ICD-9 : 782.7 ICD-10 : R23.3 11/25/2016 Appointment: Vania García [address] [place], [place] [id number] FOLLOW UP 11/25/2016 Patient Education: Patient Medication [...] ICD-10 : R23.3 11/14/2016 Appointment: Vania García [address] [place] [address] ACUTE ILLNESS 11/14/2016 Patient Education: Patient Medication Summary Completed 11/14/2016 Visit Diagnosis Plan: Acute upper respiratory infectio n, unspecified Discussion: Rxs as above Continue OTC and supportive meds Encouraged smoking cessation Follow up PRN ICD-9 : 465.9 ICD-10 : J06.9 04/02/2016 Appointment: Ester Grande [address] [place], [place] [id number] ACUTE ILLNESS 04/02/2016 Patient Education: Patient Medication Summary Completed 04/02/2016 Visit Plan: Rxs as above Supportive care reviewed Follow up PRN 11/29/2015 Appointment: Ester Grande [address] [place] [address] 11/27 confirmed~sl ACUTE ILLNESS 11/29/2015 Patient Education: [...] for pain 06/27/2015 Appointment: Ester Grande [address] [facility] 06/25 lm ~sl 06/26 phone not on~sl FOLLOW UP 06/27/2015 Patient Education: Patient Medication Summary Completed 06/27/2015 Care Plan: X-RAY EXAM RIBS UNI 2 VIEWS L OINC : 31404-4 Pending 06/27/2015 Referral: Héctor Woodard WPtel: [address] [facility] 05/29 Scheduled with sena ~ Appointment Re quested 06/26/2015 Referral: Cameron Khanna WPtel: [address] [facility] [place] Referral Initiated 06/11/2015 Referral: Marco Antonio Green WPtel: [address] [id number] 05/30/15 Needs to be there at pre op time per ~sl Initiated 06/04/2015 Visit Plan: Will get all necessary refer rals set up - CTS, Uro and G/S Swallow study and routine labs ordered Will further investigate left leg pain with EMG if not cardio related 05/24/2015 App[facility]ment: [facility] [facility] 05/24/2015 Patient Education: Patient Medication Summary Completed 05/24/2015 Care Plan: Referral Order SNOMED-CT : 30 1372355 Pending 05/24/2015 Care Plan: Referral Order SNOMED-CT : 30 6914202 Pending 05/24/2015 Care Plan: Referral Order SNOMED-CT : 30 9618060 Pending 05/24/2015 Referral: Sudheer Gann WPtel: [address] [facility] [place] Referral Appointment Requested Referral: Alfonzo Andujar WPtel: [address] [facility] [place] Referral Initiated Referral: [facility] [address] [id number] [place] Referral Completed Referral: Jey Cameron BismarkLisandra WPtel: [address] [place] [address] [place] Referral Appointment Requested Referral: RoseBrianna WPtel: [address] [place] [address] [place] Referral Initiated Referral: Héctor Woodard WPtel: [address] [place] [place] [address] [place] 05/24/15 [facility] office suggested he see another card. ~sl Initiated Referral: Alfonzo Andujar WPtel: [address] [place] [address] [place] Referral Appointment Requested Referral: Marco Antonio Green WPtel: [address] [place] [place] [address] [place] Referral Appointment Requested Instructions Comment . [...]
--- OUTSIDE RECORDS SUMMARY | 2019-09-02 12:14 | XMS REPORT | CCD ---
Author Author [place] Organization JANNETH SHRESTHA DO [facility] Address [address] [place] [address] Phone Unavailable Care Team Providers Care Rawhide Trimmer Name Role Phone Janneth Shrestha D.O., PP Unavailable CCM Unavailable Summary Purpose Interface Exchange Insurance Providers Payer name Policy type / Coverage type Covered alliance party ID Effective Begin Date Effective End Date Blue Cross Blue Shield Blue Cross/Blue Shield [id number] Unknown Family History Family History data not found Social History Social History Element Codes Description Effective Dates Marital status Unknown 05/24/2015 Number of children Unknown 2 05/24/2015 Employment Unknown Currently employed 05/24/[address]: 51821883 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 [...] Fill Instructions Levaquin 500 mg tablet RxNorm: 694964 1 Tablet(s) Oral QD 08/18/2019 08/25/2019 Active metoprolol succinate ER 50 mg tablet,extended release 24 hr RxNorm: 059871 1 Tablet(s) Oral QD 08/01/2019 08/18/2019 Inactive cyclobenzaprine 10 mg tablet RxNorm: 978426 TAKE ONE TA BLET BY MOUTH AT BEDTIME NEEDED 07/12/2019 No Stop Date Active cephalexin 500 mg tablet RxNorm: 760475 1 Tablet(s) Oral three times a day 07/05/2019 07/12/2019 Inactive cyclobenzaprine 10 mg tablet RxNorm: 121799 TAKE ONE TA BLET BY MOUTH AT BEDTIME NEEDED 05/20/2019 07/11/2019 Inactive metformin ER 1,000 mg tablet,extended release 24hr RxNorm: 1 217652 1 Tablet(s) Oral two times a day replaces 500mg dose 05/17/2019 11/13/2019 Active [AttnRPh: Saving apply/adjudicate RxGRP:[id number] RxBIN:[id number] RxPCN: ID#:[id number]] ReliOn Prime Test Strips RxNorm: 1 Unit [...] 05/01/2019 Inactive Plavix 75 mg tablet RxNorm: 132236 TAKE ONE TABLET BY MOUTH DAILY 0 04/25/2019 04/26/2019 Inactive Plavix 75 mg tablet RxNorm: 709458 TAKE ONE TABLET BY MOUTH DAILY 0 04/25/2019 04/24/2019 Inactive Xarelto 20 mg tablet RxNorm: 3599427 1 Tablet(s) Oral QD 04/25/2019 0 07/04/2019 Inactive amiodarone 200 mg tablet RxNorm: 254425 1 Tablet(s) Oral QD 020 07/04/2019 Inactive metformin ER 500 mg 24 hr tablet,extended release RxNorm: 18 58410 1 Tablet(s) Oral two times a day 04/25/2019 05/16/2019 Inactive prednisone 20 mg tablet RxNorm: 196821 1 Tablet(s) Oral two jn es a day 04/25/2019 05/01/2019 Inactive aspirin 81 mg tablet,delayed release RxNorm: 933505 1 Tablet(s) Oral QD 04/11/2019 No Stop Date Active pantoprazole 40 mg tablet,delayed release RxNorm: 338332 1 Tabl et(s) Oral QAM 04/11/2019 08/18/2019 Inactive Vitamin C 1,000 mg tablet RxNorm: 603035 1 Tablet(s) Oral QD 201908/18/2019 Inactive Xarelto 15 mg tablet RxNorm: 4817005 1 Tablet(s) Oral QD 04/11/2019 0 04/24/2019 Inactive metformin ER 500 mg 24 hr tablet,extended release RxNorm: 18 95914 1 Tablet(s) Oral QD 04/11/2019 04/24/2019 Inactive cephalexin 500 mg capsule RxNorm: 267204 1 Capsule(s) Oral thre e times a day 04/11/2019 04/18/2019 Inactive metoprolol succinate ER 50 mg tablet,extended release 24 hr RxNorm: 455873 1 Tablet(s) Oral QD replaces 25mg dose 04/11/2019 05/01/2019 Inactive cyclobenzaprine 10 mg tablet RxNorm: 613356 TAKE ONE TA BLET BY MOUTH EVERY NIGHT AT BEDTIME NEEDED 03/11/2019 No Stop Date Active mupirocin 2 % topical ointment RxNorm: 426924 Applicati on Topical two times a day 03/01/2019 04/10/2019 Inactive metoprolol succinate ER 25 mg tablet,extended release 24 hr RxNorm: 045224 1 Tablet(s) Oral QD 03/01/2019 04/24/2019 Inactive Bactrim DS 800 mg-160 mg tablet RxNorm: 399635 1 Tablet(s) Oral two times a day 03/01/2019 03/11/2019 Inactive cyclobenzaprine 10 mg tablet RxNorm: 982238 TAKE ONE TA BLET BY MOUTH EVERY NIGHT AT BEDTIME NEEDED 01/10/2019 03/10/2019 Inactive Plavix 75 mg tablet RxNorm: 192666 TAKE ONE TABLET BY MOUTH DAILY 1 03/12/2018 04/24/2019 Inactive omeprazole 40 mg capsule,delayed release RxNorm: 528514 TAKE ONE CAPSULE BY MOUTH EVERY NIGHT AT BEDTIME FOR REFLUX 01/10/2019 05/16/2019 Inactive tramadol 50 mg tablet RxNorm: 070488 1 Tablet(s) Oral f our times a day as needed 01/03/2019 01/03/2019 Inactive doxycycline monohydrate 100 mg capsule RxNorm: 4912714 1 Capsule(s) Oral two times a day 11/22/2018 12/13/2018 Inactive prednisone 20 mg tablet RxNorm: 131067 1 Tablet(s) Oral two jn es a day 11/22/2018 11/29/2018 Inactive Levaquin 750 mg tablet RxNorm: 513428 Tablet(s) Oral 11/18/201802/28 Inactive prednisone 20 mg tablet RxNorm: 806380 1 Tablet(s) Oral two jn es a day 11/18/2018 11/21/2018 Inactive tramadol 50 mg tablet RxNorm: 335252 Tablet(s) Oral 11/18/20182018 Inactive doxycycline monohydrate 100 mg capsule RxNorm: 8998010 1 Capsule(s) Oral two times a day 11/18/2018 11/21/2018 Inactive Plavix 75 mg tablet RxNorm: 216372 TAKE ONE TABLET BY MOUTH DAILY 0 11/10/2018 01/08/2019 Inactive clindamycin HCl 300 mg capsule RxNorm: 753984 1 Capsule (s) Oral three times a day 11/09/2018 11/19/2018 Inactive Keflex 500 mg capsule RxNorm: 250201 1 Capsule(s) PO BID 10/13/2018 0 10/22/2018 Inactive Medrol (Brenden) 4 mg tablets in a dose pack RxNorm: 302762 Tablet(s) take as directed PO 09/23/2018 10/12/2018 Inactive omeprazole 40 mg capsule,delayed release RxNorm: 517765 1 Capsule(s) PO QHS for reflux 09/06/2018 11/04/2018 Inactive Diflucan 150 mg tablet RxNorm: 890051 1 Tablet(s) PO Q72H 07/15/2018 09/05/2018 Inactive cyclobenzaprine 10 mg tablet RxNorm: 002093 1 Tablet(s) PO QHS as needed 07/15/2018 10/12/2018 Inactive nystatin 100,000 unit/gram topical cream RxNorm: 066273 1 Gram( s) TOP BID 07/15/2018 09/05/2018 Inactive Plavix 75 mg tablet RxNorm: 640346 1 Tablet(s) PO QD 07/15/201810/12 Inactive cyclobenzaprine 10 mg tablet RxNorm: 990153 1 Tablet(s) PO QHS as needed 06/10/2018 06/09/2018 Inactive cyclobenzaprine 10 mg tablet RxNorm: 576107 TAKE ONE TA BLET BY MOUTH EVERY NIGHT AT BEDTIME NEEDED 05/10/2018 06/10/2018 Inactive mupirocin 2 % topical ointment RxNorm: 795738 1 Application TOP BID 2018 05/25/2018 Inactive 22 gram cyclobenzaprine 10 mg tablet RxNorm: 996299 1 Tablet(s) PO QHS as needed 04/14/2018 06/09/2018 Inactive doxycycline hyclate 100 mg tablet RxNorm: 8989748 1 Tablet(s) PO BI D 04/14/2018 04/23/2018 Inactive cyclobenzaprine 10 mg tablet RxNorm: 573904 1 Tablet(s) PO QHS as needed 04/07/2018 04/13/2018 Inactive Bactrim DS 800 mg-160 mg tablet RxNorm: 706130 1 Tablet(s) PO BID 0 03/18/2018 03/27/2018 Inactive cyclobenzaprine 10 mg tablet RxNorm: 802945 1 Tablet(s) PO QHS as needed 03/18/2018 04/06/2018 Inactive triamcinolone acetonide 0.1 % topical cream RxNorm: 2514508 APPLY TO AFFECTED AREA(S) TWO TIMES A DAY 02/03/2018 02/12/2018 Inactive triamcinolone acetonide 0.1 % topical cream RxNorm: 2503119 1 Application TOP BID 01/26/2018 02/02/2018 Inactive Medrol (Brenden) 4 mg tablets in a dose pack RxNorm: 116112 TAKE BY MOUTH INSTRUCTED - PER PACKAGE INSTRUCTIONS 12/11/2017 12/16/2017 Inactive Medrol (Brenden) 4 mg tablets in a dose pack RxNorm: 507823 Tablet(s) P O 10/06/2017 12/10/2017 Inactive Lunesta 3 mg tablet RxNorm: 579854 1 Tablet(s) PO QHS 11/25/201608/2016 Inactive Lunesta 3 mg tablet RxNorm: 247348 1 Tablet(s) PO QHS 11/14/201610/2016 Inactive Bactrim DS 800 mg-160 mg tablet RxNorm: 201775 1 Tablet(s) PO BID 0 11/14/2016 11/23/2016 Inactive Epi E-Z Pen 0.3 mg/0.3 mL injection, auto-injector RxNorm: 1 720526 Milliliter(s) IM Use as Directed 06/25/2016 09/05/2018 Inactive amoxicillin 875 mg tablet RxNorm: 139747 1 Tablet(s) PO BID 017 04/11/2016 Inactive prednisone 20 mg tablet RxNorm: 038548 1 Tablet(s) PO BID 04/02/2016 04/06/2016 Inactive azithromycin 250 mg tablet RxNorm: 171257 2 Tablet(s) P O on day one then 1 tab on days 2-5 11/29/2015 11/28/2015 Inactive Medrol (Brenden) 4 mg tablets in a dose pack RxNorm: 126853 Take as directed 11/29/2015 11/13/2016 Inactive meloxicam 15 mg tablet RxNorm: 695747 1 Tablet(s) PO QD 07/02/2015 Inactive Chantix Starting Month Box 0.5 mg (11)-1 mg (42) table ts in dose pack RxNorm: 819280 Tablet(s) PO As Directed 06/20/2015 07/10/2015 Inactive omeprazole 40 mg capsule,delayed release RxNorm: 244879 1 Capsu le(s) PO QD 05/31/2015 11/13/2016 Inactive omeprazole 40 mg capsule,delayed release RxNorm: 601979 1 Capsu le(s) PO QD 05/31/2015 05/30/2015 Inactive Multivitamin And Mineral oral RxNorm: oral No Start Date Active Wellbutrin SR 150 mg tablet,sustained-release RxNorm: 735886 1 Tablet(s) PO BID No Start Date 11/13/2016 Inactive gabapentin 100 mg capsule RxNorm: 331431 1 Capsule(s) PO TID No Sta rt Date 03/17/2018 Inactive Chantix Starting Month Box 0.5 mg (11)-1 mg (42) table ts in dose pack RxNorm: 102191 Tablet(s) PO As Directed No Start Date 06/19/2015 Inactive Eliquis 5 mg tablet RxNorm: 5718289 1 Tablet(s) PO BID No Start Date 03/17/2018 Inactive Lactobacillus acidophilus-Bifidobacterium longum oral RxNorm: oral No Start Date 07/04/2019 Inactive aspirin 325 mg tablet RxNorm: 513503 1 Tablet(s) PO QD No Start Date 11/13/2016 Inactive clindamycin HCl 300 mg capsule RxNorm: 398556 2 Capsule(s) PO Q8H N o Start Date 03/17/2018 Inactive Fish Oil 1,000 mg (120 mg-180 mg) capsule RxNorm: 1 Caps ule(s) PO QD No Start Date 09/05/2018 Inactive aspirin 81 mg tablet RxNorm: 356745 1 Tablet(s) PO QD No Start Date 1 03/28/2017 Inactive Fish Oil 1,000 mg capsule RxNorm: 1 Capsule(s) PO QD No Start Date 11/13/2016 Inactive Baby Aspirin 81 mg chewable tablet RxNorm: 899688 1 Tablet(s) P O BID No Start Date 02/02/2017 Inactive Xarelto 10 mg tablet RxNorm: 3654289 1 Tablet(s) PO QD No Start Date 01/25/2018 Inactive tramadol 50 mg tablet RxNorm: 661315 1-2 Tablet(s) PO Q6H No Start Date 03/17/2018 Inactive meloxicam 15 mg tablet RxNorm: 603253 1 Tablet(s) PO QD No Start Da te 07/01/2015 Inactive Epi E-Z Pen 0.3 mg/0.3 mL injection, auto-injector RxNorm: 1 457542 Milliliter(s) IM Use as Directed No Start Date 06/24/2016 Inactive Plavix 75 mg tablet RxNorm: 282563 1 Tablet(s) PO QD No Start Date Inactive Medication Administered No Medication Administered data Immunizations No Immunization data Results Observation Observation Code Item Item Code Result Date S ervice Location COMPREHENSIVE METABOLIC 28295 AST 25 U/L 2018 Unknown COMPREHENSIVE METABOLIC 61993 ALT 28 U/L 2018 Unknown COMPREHENSIVE METABOLIC 22223 BUN 13 mg/dL 2018 Unknown COMPREHENSIVE METABOLIC 77683 ALBUMIN 4.2 g/dL 2018 Unknown COMPREHENSIVE METABOLIC 58546 CHLORIDE 104 mmol/L 11/09 Unknown COMPREHENSIVE METABOLIC 05220 Bili Total 0.5 mg/dL 11/09 Unknown COMPREHENSIVE METABOLIC 77480 ALK PHOS 72 U/L 2018 Unknown COMPREHENSIVE METABOLIC 85972 SODIUM 139 mmol/L 11/09 Unknown COMPREHENSIVE METABOLIC 05103 CREATININE 0.98 mg/dL 10/18 Unknown COMPREHENSIVE METABOLIC 58862 CALCIUM 9.1 mg/dL 2018 Unknown COMPREHENSIVE METABOLIC 49336 POTASSIUM 3.7 mmol/L 11/09 Unknown COMPREHENSIVE METABOLIC 20088 Total Protein 7.2 g/dL Unknown COMPREHENSIVE METABOLIC 60022 Glucose 137 mg/dL 2018 Unknown COMPREHENSIVE METABOLIC 82745 Bicarbonate 24 mmol/L 10/18 Unknown COMPREHENSIVE METABOLIC 68835 AGAP 11 mmol/L 2018 Unknown COMPLETE BLOOD COUNT 1463179 WBC 4.6 10e9/L 11/10/19 19 Unknown COMPLETE BLOOD COUNT 3777262 RBC 4.88 10e12/L 2018 Unknown COMPLETE BLOOD COUNT 0932653 HEMOGLOBIN 14.7 g/dL 11/10/19 19 Unknown COMPLETE BLOOD COUNT 1435519 HEMATOCRIT 43.7 % 11/10/19 19 Unknown COMPLETE BLOOD COUNT 2582857 MCV 89.5 fL 9 Unknown COMPLETE BLOOD COUNT 2370279 MCH 30.1 pg 9 Unknown COMPLETE BLOOD COUNT 0715023 MCHC 33.6 g/dL 9 Unknown COMPLETE BLOOD COUNT 6824118 PLATELET COUNT 179 10e9/L Unknown COMPLETE BLOOD COUNT 7338299 Mean Plt Volume 11.6 fL Unknown COMPLETE BLOOD COUNT 9137145 Neut Auto 55.5 % 9 Unknown COMPLETE BLOOD COUNT 1771871 Lymph Auto 28.7 % 11/10/19 19 Unknown COMPLETE BLOOD COUNT 5898781 [place] Auto 7.9 % 9 Unknown COMPLETE BLOOD COUNT 5814971 RDW 13.2 % 9 Unknown COMPLETE BLOOD COUNT 6414984 Eos Auto 7.7 % 9 Unknown COMPLETE BLOOD COUNT 0891898 Baso Auto 0.2 % 9 Unknown COMPLETE BLOOD COUNT 8313231 Neutrophil Abs 2.55 10e9/L Unknown COMPLETE BLOOD COUNT 0785523 Lymphocyte Abs 1.32 10e9/L Unknown COMPLETE BLOOD COUNT 9633512 Monocyte Abs 0.36 10e9/L 10/18 Unknown COMPLETE BLOOD COUNT 7165526 Eosinophil Abs 0.35 10e9/L Unknown COMPLETE BLOOD COUNT 9355827 RDW-SD 42.2 fL 9 Unknown COMPLETE BLOOD COUNT 9214619 Basophil Abs 0.01 10e9/L 10/18 Unknown [facility] 77399 Cholesterol 205 mg/dL 11/09/2018 Unkno wn LIPID GROUP 76832 Triglyceride 268 mg/dL 11/09/2018 Unkn own L[facility] 43964 HDL CHOLESTEROL 35 mg/dL 11/09/2018 U nknown L[facility] GROUP 98592 Chol/HDL Ratio 5.86 ratio 11/09/2018 U nknown LIPID GROUP 78360 NON-HDL Chol 170 mg/dL 11/09/2018 Unkn own L[facility] 06144 LDL Cholesterol 116 mg/dL 11/09/2018 U nknown PT 6091527 PT 12.7 Seconds 11/09/2018 Unknow n PT 9910076 INR 0.9 11/09/2018 Unknown GFR CALC 7117622 GFR Non Afr Amr >60 mL/min 11/09/2018 Un known GFR CALC 7873210 GFR Afr Amr >60 mL/min 11/09/2018 Unknow n ACT PARTIAL THRMBOPLASTIN TIME 65959 PTT 34.0 Sec[place] nds 11/09/2018 Unknown LIPID GROUP 07806 Cholesterol 186 mg/dL 2018 Unkno wn L[facility] 95080 Triglyceride 229 mg/dL 2018 Unkn own LIP[facility] GROUP 97030 HDL CHOLESTEROL 36 mg/dL 2018 U nknown [facility] 16273 Chol/HDL Ratio 5.17 ratio 2018 U nknown LIP[facility] GROUP 81821 NON-HDL Chol 150 mg/dL 2018 Unkn own L[facility] GROUP 93703 LDL Cholesterol 104 mg/dL 2018 U nknown GFR CALC 8160929 GFR Non Afr Amr >60 mL/min 2018 Un known GFR CALC 1551240 GFR Afr Amr >60 mL/min 2018 Unknow n COMPREHENSIVE METABOLIC 59133 AST 23 U/L 2018 Unknown COMPREHENSIVE METABOLIC 59254 ALT 22 U/L 2018 Unknown COMPREHENSIVE METABOLIC 96093 BUN 15 mg/dL 2018 Unknown COMPREHENSIVE METABOLIC 01342 ALBUMIN 4.1 g/dL 2018 Unknown COMPREHENSIVE METABOLIC 59218 CHLORIDE 106 mmol/L 05/06 Unknown COMPREHENSIVE METABOLIC 24797 Bili Total 0.6 mg/dL 05/06 Unknown COMPREHENSIVE METABOLIC 26268 ALK PHOS 61 U/L 2018 Unknown COMPREHENSIVE METABOLIC 67608 SODIUM 141 mmol/L 05/06 Unknown COMPREHENSIVE METABOLIC 80989 CREATININE 0.91 mg/dL 04/17 Unknown COMPREHENSIVE METABOLIC 31060 CALCIUM 9.2 mg/dL 2018 Unknown COMPREHENSIVE METABOLIC 07948 POTASSIUM 3.8 mmol/L 05/06 Unknown COMPREHENSIVE METABOLIC 92821 Total Protein 7.0 g/dL Unknown COMPREHENSIVE METABOLIC 65421 Glucose 97 mg/dL 2018 Unknown COMPREHENSIVE METABOLIC 23791 Bicarbonate 28 mmol/L 04/17 Unknown COMPREHENSIVE METABOLIC 09806 AGAP 7 mmol/L 2018 Unknown THYROID STIMULATING HORMONE 51000 TSH 2.094 uIU/mL 2018 Unknown COMPLETE BLOOD COUNT 9648199 WBC 5.5 10e9/L 05/07/19 19 Unknown COMPLETE BLOOD COUNT 6462704 RBC 4.61 10e12/L 2018 Unknown COMPLETE BLOOD COUNT 4193676 HEMOGLOBIN 13.6 g/dL 05/07/19 19 Unknown COMPLETE BLOOD COUNT 1034092 HEMATOCRIT 40.0 % 05/07/19 19 Unknown COMPLETE BLOOD COUNT 2291270 MCV 86.8 fL 9 Unknown COMPLETE BLOOD COUNT 2695116 MCH 29.5 pg 9 Unknown COMPLETE BLOOD COUNT 1116350 MCHC 34.0 g/dL 9 Unknown COMPLETE BLOOD COUNT 9999568 PLATELET COUNT 197 10e9/L Unknown COMPLETE BLOOD COUNT 7944139 Mean Plt Volume 10.8 fL Unknown COMPLETE BLOOD COUNT 0823944 Neut Auto 49.6 % 9 Unknown COMPLETE BLOOD COUNT 6182699 Lymph Auto 36.8 % 05/07/19 19 Unknown COMPLETE BLOOD COUNT 7483169 [place] Auto 8.1 % 9 Unknown COMPLETE BLOOD COUNT 3162950 RDW 15.3 % 9 Unknown COMPLETE BLOOD COUNT 9119318 Eos Auto 5.3 % 9 Unknown COMPLETE BLOOD COUNT 6791269 Baso Auto 0.2 % 9 Unknown COMPLETE BLOOD COUNT 7049057 Neutrophil Abs 2.73 10e9/L Unknown COMPLETE BLOOD COUNT 3102199 Lymphocyte Abs 2.02 10e9/L Unknown COMPLETE BLOOD COUNT 8133316 Monocyte Abs 0.45 10e9/L 04/17 Unknown COMPLETE BLOOD COUNT 2746915 Eosinophil Abs 0.29 10e9/L Unknown COMPLETE BLOOD COUNT 7297166 RDW-SD 47.9 fL 9 Unknown COMPLETE BLOOD COUNT 6611644 Basophil Abs 0.01 10e9/L 04/17 Unknown Procedures Procedure Codes Date CEFTRIAXONE SODIUM INJECTION CPT-4: J0696 11/09/2018 THER/PROPH/DIAG INJ SC/IM CPT-4: 76722 11/09/2018 ROUTINE VENIPUNCTURE CPT-4: 81398 11/09/2018 COMPREHEN METABOLIC PANEL CPT-4: 57449 11/09/2018 COMPLETE CBC W/AUTO DIFF WBC CPT-4: 53817 11/09/2018 LIPID PANEL CPT-4: 25722 11/09/2018 PROTHROMBIN TIME CPT-4: 21362 11/09/2018 THROMBOPLASTIN TIME PARTIAL CPT-4: 97464 11/09/2018 THER/PROPH/DIAG INJ SC/IM CPT-4: 63573 09/23/2018 KETOROLAC TROMETHAMINE INJ CPT-4: J1885 09/23/2018 ROUTINE VENIPUNCTURE CPT-4: 33401 2018 ASSAY THYROID STIM HORMONE CPT-4: 41613 2018 COMPREHEN METABOLIC PANEL CPT-4: 74407 2018 COMPLETE CBC W/AUTO DIFF WBC CPT-4: 30519 2018 LIPID PANEL CPT-4: 38142 2018 CEFTRIAXONE SODIUM INJECTION CPT-4: J0696 04/14/2018 THER/PROPH/DIAG INJ SC/IM CPT-4: 22213 04/14/2018 CEFTRIAXONE SODIUM INJECTION CPT-4: J0696 03/18/2018 THER/PROPH/DIAG INJ SC/IM CPT-4: 83027 03/18/2018 THER/PROPH/DIAG INJ SC/IM CPT-4: 99945 01/26/2018 KETOROLAC TROMETHAMINE INJ CPT-4: J1885 01/26/2018 CEFTRIAXONE SODIUM INJECTION CPT-4: J0696 12/22/2017 THER/PROPH/DIAG INJ SC/IM CPT-4: 22780 12/22/2017 ROUTINE VENIPUNCTURE CPT-4: 31546 11/14/2016 COMPLETE CBC W/AUTO DIFF WBC CPT-4: 41314 11/14/2016 PT/PTT CPT-4: 5539597 11/14/2016 Vital Signs Date Vital 08/18/2019 Blood [...] 1: 134/82 Code: 8480-6 BMI: 23.9 Code: 77851-6 Heart Rate 1: 100 bpm Height: 6'4" [...] 1: 138/70 Code: 8480-6 BMI: 22.6 Code: 25838-7 Heart Rate 1: 97 bpm Height: 6'4" [...] 1: 142/80 Code: 8480-6 BMI: 20.9 Code: 52251-1 Heart Rate 1: 108 bpm Height: 6'4" Respiratory Rate: 20 bpm SpO2: 97% Tempera ture: 36.6 (C) / 97.9 (F) Weight: 172 lbs 01/26/2018 Blood Pressure 1: 130/82 Code: 8480-6 Heart Rate 1: 98 bpm Respiratory Rate: 18 bpm SpO2: 99% Temperature: 35.7 (C) / 96.3 (F) We ight: 175 lbs 12/22/2017 Blood Pressure 1: 124/68 Code: 8480-6 BMI: 22.3 Code: 19844-3 Heart Rate 1: 100 bpm Height: 6'4" Respiratory Rate: 20 bpm SpO2: 98% Tempera ture: 36.7 (C) / 98.0 (F) Weight: 183 lbs 10/06/2017 Blood Pressure 1: 130/86 Code: 8480-6 BMI: 21.1 Code: 30196-0 Heart Rate 1: 92 bpm Height: 6'4" Respiratory Rate: 18 bpm SpO2: 98% Tempera ture: 36.9 (C) / 98.5 (F) Weight: 173 lbs 02/03/2017 Blood Pressure 1: 144/92 Code: 8480-6 BMI: 20.8 Code: 16058-7 Heart Rate 1: 88 bpm Height: 6'4" Respiratory Rate: 20 bpm SpO2: 97% Tempera ture: 36.7 (C) / 98.1 (F) Weight: 171 lbs 11/25/2016 Blood Pressure 1: 126/84 Code: 8480-6 Heart Rate 1: 76 bpm Respiratory Rate: 20 bpm SpO2: 96% Temperature: 36.9 (C) / 98.4 (F) We ight: 170 lbs 11/14/2016 Blood Pressure 1: 126/82 Code: 8480-6 BMI: 20.7 Code: 33275-8 Heart Rate 1: 86 bpm Height: 6'4" Respiratory Rate: 18 bpm SpO2: 96% Tempera ture: 35.8 (C) / 96.5 (F) Weight: 170 lbs 04/02/2016 Blood Pressure 1: 124/78 Code: 8480-6 Heart Rate 1: 88 bpm Respiratory Rate: 24 bpm SpO2: 97% Temperature: 36.1 (C) / 97.0 (F) We ight: 161 lbs 11/29/2015 Blood Pressure 1: 124/68 Code: 8480-6 BMI: 19.2 Code: 94493-5 Heart Rate 1: 94 bpm Height: 6'4" Respiratory Rate: 18 bpm SpO2: 97% Tempera ture: 36.1 (C) / 97.0 (F) Weight: 158 lbs 06/27/2015 Blood Pressure 1: 128/78 Code: 8480-6 BMI: 18.7 Code: 34404-3 Heart Rate 1: 72 bpm Height: 6'4" Respiratory Rate: 22 bpm SpO2: 98% Tempera ture: 35.9 (C) / 96.6 (F) Weight: 154 lbs 05/24/2015 Blood Pressure 1: 112/78 Code: 8480-6 BMI: 19.7 Code: 18548-5 Heart Rate 1: 78 bpm Height: 6'4" [...] care Encounters Encounter Performer Location Codes Date ([id number]) OFFICE/OUTPATIENT VISIT EST Diagnosis: Puncture wound of right foot[ICD10: S91.331A] Diagnosis: DM w/o complication type II, uncontrolled[ICD10: E11.65] Janneth SHRESTHA [employer] CPT-4: 86409 08/18/2019 ([id number]) OFFICE/OUTPATIENT VISIT EST Diagnosis: Other specified local infections of the skin and subcutaneous tissue[ICD10: L08.89] Diagnosis: DM w/o complication type II, uncontrolled[ICD10: E11.65] Diagnosis: Right leg DVT[ICD10: I82.401] Janneth WARD [employer] CPT-4: 46535 07/05/2019 ([id number]) OFFICE/OUTPATIENT VISIT EST Diagnosis: 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, implant, or graft[ICD10: T85.818A] Diagnosis: DM w/o complication type II, uncontrolled[ICD10: E11.65] Janneth WARD [employer] CPT-4: 09443 05/17/2019 ([id number]) OFFICE/OUTPATIENT VISIT EST Diagnosis: Acute dermatitis[ICD10: L30.9] Diagnosis: DM w/o complication type II, uncontrolled[ICD10: E11.65] Diagnosis: Right leg DVT[ICD10: I82.401] Janneth WARD [employer] CPT-4: 19239 05/02/2019 ([id number]) OFFICE/OUTPATIENT VISIT EST Diagnosis: DM w/o complication type II, uncontrolled[ICD10: E11.65] Diagnosis: Allergic dermatitis[ICD10: L23.9] Diagnosis: Right leg DVT[ICD10: I82.401] Diagnosis: Paroxysmal atrial fibrillation[ICD10: I48.0] Diagnosis: Right calf pain[ICD10: M79.661] Janneth WARD [employer] CPT-4: 37417 04/25/2019 ([id number]) OFFICE/OUTPATIENT VISIT EST Diagnosis: DM w/o complication type II, uncontrolled[ICD10: E11.65] Diagnosis: 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, implant, or graft[ICD10: T85.818A] Diagnosis: Essential hypertension[ICD10: I10] Janneth SHRESTHA [facility] CPT-4: 26174 04/11/2019 ([id number]) OFFICE/OUTPATIENT VISIT EST Diagnosis: Sinus tachycardia[ICD10: R00.0] Diagnosis: Folliculitis[ICD10: L73.9] [facility]: 08660 03/01/2019 ([id number]) OFFICE/OUTPATIENT VISIT EST Diagnosis: Cellulitis of left lower limb[ICD10: L03.116] Diagnosis: Tendinitis of left peroneus longus tendon[ICD10: M76.72] Janneth CLARK [employer] [facility] CPT-4: 31674 11/18/2018 ([id number]) OFFICE/OUTPATIENT VISIT EST Diagnosis: Cellulitis of left foot[ICD10: L03.116] Diagnosis: Spontaneous ecchymoses[ICD10: R23.3] Diagnosis: Venous insufficiency (chronic) (peripheral)[ICD10: I87.2] Diagnosis: Mixed hyperlipidemia[ICD10: E78.2] Vania CLARK [employer] [facility] CPT-4: 63659 11/09/2018 ([id number]) OFFICE/OUTPATIENT VISIT EST Diagnosis: Venous insufficiency (chronic) (peripheral)[ICD10: I87.2] Diagnosis: Cellulitis of left lower limb[ICD10: L03.116] Diagnosis: Pain in right foot[ICD10: M79.671] Vania CLARK [employer] CPT-4: 64863 10/13/2018 ([id number]) OFFICE/OUTPATIENT VISIT EST Diagnosis: Low back pain[ICD10: M54.5] Vania Taylor [facility] CPT-4: 79474 09/23/2018 ([id number]) OFFICE/OUTPATIENT VISIT EST Diagnosis: Gastro-esophageal reflux disease without esophagitis[ICD10: K21.9] Diagnosis: Dysphagia, pharyngoesophageal phase[ICD10: R13.14] Janneth SHRESTHA [facility] CPT-4: 80944 09/06/2018 ([id number]) OFFICE/OUTPATIENT VISIT EST Diagnosis: Tinea corporis[ICD10: B35.4] Vania SHRESTHA DO [facility] CPT-4: 80965 07/15/2018 ([id number]) OFFICE/OUTPATIENT VISIT EST Diagnosis: Cellulitis of left toe[ICD10: L03.032] Diagnosis: Mixed hyperlipidemia[ICD10: E78.2] [facility] 84692 2018 OFFICE/OUTPATIENT VISIT EST Diagnosis: Cellulitis of left toe[ICD10: L03.032] Diagnosis: Unspecified disturbances of skin sensation[ICD10: R20.9] [facility]: 90958 04/14/2018 ([id number]) OFFICE/OUTPATIENT VISIT EST Diagnosis: Cellulitis of left toe[ICD10: L03.032] Diagnosis: Insomnia, unspecified[ICD10: G47.00] Vania SHRESTHA [facility] CPT-4: 74408 03/18/2018 ([id number]) OFFICE/OUTPATIENT VISIT EST Diagnosis: Other postprocedural complications and disorders of the circulatory system, not elsewhere classified[ICD10: I97.89] Diagnosis: Rash and other nonspecific skin eruption[ICD10: R21] Diagnosis: Pain in right leg[ICD10: M79.604] Vania SHRESTHA [employer] [facility] CPT-4: 91574 01/26/2018 ([id number]) OFFICE/OUTPATIENT VISIT EST Diagnosis: Other postprocedural complications and disorders of the circulatory system, not elsewhere classified[ICD10: I97.89] Diagnosis: Cellulitis of right lower limb[ICD10: L03.115] Vania SHRESTHA DO [facility] CPT-4: 78259 12/22/2017 ([id number]) OFFICE/OUTPATIENT VISIT EST Diagnosis: Acute sinusitis, unspecified[ICD10: J01.90] Diagnosis: Unspecified disturbances of skin sensation[ICD10: R20.9] Vania SHRESTHA DO [facility] CPT-4: 01260 10/06/2017 ([id number]) OFFICE/OUTPATIENT VISIT EST Diagnosis: Primary insomnia[ICD10: F51.01] Diagnosis: Pain in left shoulder[ICD10: M25.512] Diagnosis: Poisoning by other parasympatholytics [anticholinergics and antimuscarinics] and spasmolytics, accidental (unintentional), sequela[ICD10: T44.3X1S] Janneth SHRESTHA [employer] [facility] CPT-4: [id number] 02/03/2017 OFFICE/OUTPATIENT VISIT EST Diagnosis: Insomnia, unspecified[ICD10: G47.00] Diagnosis: Constipation, unspecified[ICD10: K59.00] Diagnosis: Spontaneous ecchymoses[ICD10: R23.3] Diagnosis: Pain in left foot[ICD10: M79.672] Vania SHRESTHA [facility] CPT-4: 98246 11/25/2016 OFFICE/OUTPATIENT VISIT EST Diagnosis: Insomnia, unspecified[ICD10: G47.00] Diagnosis: Constipation, unspecified[ICD10: K59.00] Diagnosis: Spontaneous ecchymoses[ICD10: R23.3] Diagnosis: Other specified local infections of the skin and subcutaneous tissue[ICD10: L08.89] Vania SHRESTHA [facility] CPT-4: 99 213 11/14/2016 ([id number]) OFFICE/OUTPATIENT VISIT EST Diagnosis: Acute upper respiratory infection, unspecified[ICD10: J06.9] Ester SHRESTHA [facility] CPT-4: 61153 04/02/2016 ([id number]) OFFICE/OUTPATIENT VISIT EST Diagnosis: Acute upper respiratory infection, unspecified[ICD10: J06.9] Ester SHRESTHA [facility] CPT-4: 74672 11/29/2015 ([id number]) OFFICE/OUTPATIENT VISIT EST Diagnosis: Pain in thoracic spine[ICD10: M54.6] Diagnosis: Paresthesia of skin[ICD10: R20.2] Diagnosis: Dysphagia, unspecified[ICD10: R13.10] Ester SHRESTHA [facility] CPT-4: 94545 06/27/2015 ([id number]) OFFICE/OUTPATIENT VISIT NEW Diagnosis: Pain in left leg[ICD10: M79.605] Diagnosis: Male erectile dysfunction, unspecified[ICD10: N52.9] Diagnosis: Dysphagia, unspecified[ICD10: R13.10] Ester SHRESTHA [facility] CPT-4: 30808 05/24/2015 Plan of Care Planned Activity Notes [...] S91.331A 08/18/2019 Patient Education: Levaquin- [employer] Coupon [id number] https://www.PromoJam/orderTopia/resources/getResource/61/10k9w17r-2o37-534t-if Completed 08/18/2019 Appointment: Janneth Shrestha WPtel: [address] [place], [place] [address] [place] CANCELED 08/16/2019 Appointment: Janneth Shrestha WPtel: [address] [place], [place] [address] [place] CANCELED 07/21/2019 Visit Diagnosis Plan: Other [...] : I82.401 07/05/2019 Appointment: Janneth Shrestha WPtel: [address] [place], [place] [phone] [place] FOLLOW UP 07/05/2019 Patient Education: cephalexin- [employer] Coupon [id number] https://www.orderTopia.LikeBright/samplene/resources/getResource/61/x8562a62-7766-1337-i2 Completed 07/05/2019 Visit Diagnosis Plan: Blood clot [...] : E11.65 05/17/2019 Appointment: Janneth Shrestha WPtel: [address] [place], [place] [phone] [place] FOLLOW UP 05/17/2019 Patient Education: Metformin [...] : L30.9 05/02/2019 Appointment: Janneth Shrestha WPtel: [address] [place], [place] [phone] [place] FOLLOW UP 05/02/2019 Patient Education: metoprolol succinate- [employer] Co upon [id number] https://www.PromoJam/orderTopia/resources/getResourLenddo/61/57709km9-h0j5-905d-h0 Completed 05/02/2019 Visit Diagnosis Plan: DM w/o [...] I82.401 04/25/2019 Appointment: [facility] [address] [facility] [facility] 04/25/2019 Patient Education: Metformin Patient Savings Message Alert Completed 04/25/2019 Patient Education: prednisone- [employer] Coupon [id number] https://www.PromoJam/orderTopia/resources/getResource/61/9bv65zt1-h6pa-6h51-dr Completed 04/25/2019 Visit Diagnosis Plan: DM w/o [...] : T85.818A 04/11/2019 Appointment: Janneth Shrestha WPtel: [address] [place], [place] [phone] ACUTE ILLNESS 04/11/2019 Patient Education: metoprolol succinate- [employer] Co upon [id number] https://www.PromoJam/orderTopia/resources/getResource/61/uj603653-93nx-5a85-75 Completed 04/11/2019 Patient Education: Metformin Patient Savings Message Alert Completed 04/11/2019 Patient Education: cephalexin- [employer] Coupon [id number] https://www.PromoJam/orderTopia/resources/getResource/61/7ehz9044-0w0g-0646-hm Completed 04/11/2019 Visit Diagnosis Plan: Folliculitis Discussion: Bactrim and topical bactroban ICD-9 : 704.8 ICD-10 : L73.9 03/01/2019 Visit Diagnosis Plan: Sinus tachycardia Discussion: St art low dose metoprolol ER 25mg daily Monitor pulse Sees Cardiology next month ICD-9 : 427.89 ICD-10 : R00.0 03/01/2019 Appointment: Janneth Shrestha WPtel: [address] [place], [place] [address] [place] FOLLOW UP 03/01/2019 Patient Education: mupirocin- [employer] Coupon [id number] https://www.PromoJam/orderTopia/resources/getResource/61/qy138ia6-76iz-978e-ay Completed 03/01/2019 Appointment: Janneth Shrestha WPtel: [address] [place], [place] [address] [place] CANCELED 12/20/2018 Visit Diagnosis Plan: Tendinitis [...] ICD-10 : L03.116 11/18/2018 Appointment: Vania García [address] [place], [place] [id number] [place] CANCELED 11/18/2018 Appointment: Janneth Shrestha WPtel: [address] [facility] [place] FOLLOW UP 11/18/2018 Patient Education: doxycycline monohydrate- [employer] Coupon [id number] https://www.PromoJam/samplemd/resources/getResource/61/phh16991-n1e2-61n0-0i Completed 11/18/2018 Patient Education: prednisone- [employer] Coupon 50228 321 https://www.PromoJam/samplemd/resources/getResource/61/70fq3c8z-3sv1-2696-jp Completed 11/18/2018 Care Plan: Referral Order SNOMED-CT : 30 8131441 Pending 11/18/2018 Visit Diagnosis Plan: Venous insufficiency [...] evaluated in an ED whether it be [place] or wherever he's traveling. discussed the risk of bone involvement and the importance of having it evaluated if worsens. follow up in office when he returns though if no worsening symptoms. ICD-9 : 682.7 ICD-10 : L03.116 11/09/2018 Appointment: Vania García [address] [place], [place] [address] ACUTE ILLNESS 11/09/2018 Patient Education: clindamycin HCl- [employer] Coupon [id number] https://www.orderTopia.com/samplemd/resources/getResource/61/29gr65y7-ud66-8cw3-0z Completed 11/09/2018 Appointment: [facility]Ptel[facility] [facility] [facility] 10/19/2018 Visit Diagnosis Plan: Cellulitis of [...] ICD-10 : M79.671 10/13/2018 Appointment: Vania García [address] [place] [address] Patient cant pay copay till when he [...] : M54.5 09/23/2018 Appointment: Vania García [address] [place] [address] ACUTE ILLNESS 09/23/2018 Patient Education: Medrol (Brenden)- [employer] Coupon [id number] https://www.PromoJam/sampleVolar Video/resources/getResource/61/wgkj040v-9088-35r8-52 Completed 09/23/2018 Visit Diagnosis Plan: Dysphagia, pharyngoesophageal ph ase Discussion: Referral for EGD ICD-9 : 787.24 ICD-10 : R13.14 09/06/2018 Visit Diagnosis Plan: Gastro-esophageal reflux disease without esophagitis Discussion: Start omeprazole ICD-9 : 530.81 ICD-10 : K21.9 09/06/2018 Appointment: Janneth Shrestha WPtel: [facility] [place] [address] ACUTE ILLNESS 09/06/2018 Patient Education: omeprazole- [employer] Coupon 86806 355 https://www.orderTopia.LikeBright/orderTopia/resources/getResource/61/712va559-10v7-997c-22 Completed 09/06/2018 Care Plan: Referral Order SNOMED-CT : 30 7373451 Pending 09/06/2018 Visit Diagnosis Plan: Tinea corporis Discussion: nysta tin to be used bid until rash gone and then an additional 2 days. diflucan every 3 days for 3 doses. keep area clean and dry with no moisturizers. call office if no improvement in 2 weeks or if worsening. ICD-9 : 110.5 ICD-10 : B35.4 07/15/2018 Appointment: Vania García [address] [place], [place] [address] ACUTE ILLNESS 07/15/2018 Patient Education: nystatin- [employer] Coupon [id number] https://www.orderTopia.LikeBright/samplemd/resources/getResource/61/94vvz675-o2tr-39qq-6w Completed 07/15/2018 Patient Education: Plavix- [employer] Coupon [id number] https://www.PromoJam/samplemd/resources/getResource/61/45dg0m39-w98y-58ou-56 fa-j874o6217450.pdf Completed 07/15/2018 Patient Education: cyclobenzaprine- [employer] Coupon [id number] https://www.PromoJam/samplemd/resources/getResource/61/90626f3z-1u81-78r8-gv Completed 07/15/2018 Visit Diagnosis Plan: Cellulitis of [...] : L03.032 2018 Appointment: Mandy Hollins [facility] [employer] [address] FOLLOW UP 2018 Patient Education: mupirocin- [employer] Coupon [id number] https://www.PromoJam/samplemd/resources/getResource/61/l7ri62x6-7104-1891-2c Completed 2018 Visit Diagnosis Plan: Cellulitis of [...] 04/14/2018 Appointment: Mandy Hollins [facility] [employer] [address] FOLLOW UP 04/14/2018 Visit Diagnosis Plan: [...] ICD-10 : L03.032 03/18/2018 Appointment: Vania García [address] [place] [address] ACUTE ILLNESS 03/18/2018 Patient Education: cyclobenzaprine- [employer] Coupon [id number] https://www.orderTopia.LikeBright/samplemd/resources/getResource/61/7534d435-0iz8-003h-y8 Completed 03/18/2018 Visit Diagnosis Plan: Rash and other nonspecific skin eruption Discussion: triamcinolone ordered to be used as directed. ICD-9 : 782.1 ICD-10 : R21 01/26/2018 Visit Diagnosis Plan: Other postprocedur al complications and disorders of the circulatory system, not elsewhere classified Discussion: discussed with dr. shrestha and patient was instructed to contact the [place] [facility] de[facility]. due to uncontrolled pain, continued erythema, patient needs to be re-evaluated by the surgeon. 60 mg toradol given to patient. patient verbalized understanding and voiced he will contact them today for an appointment. ICD-9 : 997.1 ICD-10 : I97.89 01/26/2018 Appointment: Vania García [address] [place], [place] [id number] [place] [address] Follow Up 01/26/2018 Appointment: Janneth Shrestha WPtel: [address] [facility] [address] NO SHOW 01/06/2018 Visit Diagnosis [...] Vania García [address] [facility] [address] ACUTE ILLNESS 12/22/2017 Visit Diagnosis Plan: Acute [...] : R20.9 10/06/2017 Appointment: Vania García [address] [facility] [address] ACUTE ILLNESS 10/06/2017 Patient Education: Patient Medication Summary Completed 10/06/2017 Appointment: Vania García [address] [place], [place] [id number] ER Follow UP 08/17/2017 Appointment: Vania García [address] [facility] [address] [place] CANCELED 07/03/2017 Appointment: Janneth Shrestha WPtel: [id number] [place] canceled at 8:05 this morning. 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 ICD-9 : 729.5 ICD-10 : M79.672 11/25/2016 Visit Diagnosis Plan: Spontaneous ecchymoses Discussio n: labs wnl. instructed patient on side effects of plavix and aspirin. will continue to monitor. educated on being careful with movements to prevent injuries. ICD-9 : 782.7 ICD-10 : R23.3 11/25/2016 Appointment: Vania García [address] [place], [place] [id number] FOLLOW UP 11/25/2016 Patient Education: Patient Medication [...] : R23.3 11/14/2016 Appointment: Vania García [address] [place] [address] ACUTE ILLNESS 11/14/2016 Patient Education: Patient Medication Summary Completed 11/14/2016 Visit Diagnosis Plan: Acute upper respiratory infectio n, unspecified Discussion: Rxs as above Continue OTC and supportive meds Encouraged smoking cessation Follow up PRN ICD-9 : 465.9 ICD-10 : J06.9 04/02/2016 Appointment: Ester Grande [address] [place], [place] [address] ACUTE ILLNESS 04/02/2016 Patient Education: Patient Medication Summary Completed 04/02/2016 Visit Plan: Rxs as above Supportive care reviewed Follow up PRN 11/29/2015 Appointment: Ester Grande [address] [place] [address] 11/27 confirmed~sl ACUTE ILLNESS 11/29/2015 Patient Education: [...] pain 06/27/2015 Appointment: Ester Grande [address] [facility] 06/25 lm ~sl 06/26 phone not on~sl FOLLOW UP 06/27/2015 Patient Education: Patient Medication Summary Completed 06/27/2015 Care Plan: X-RAY EXAM RIBS UNI 2 VIEWS L OINC : 71913-2 Pending 06/27/2015 Referral: Héctor Woodard WPtel: [address] [facility] 05/29 Scheduled with sena ~ Appointment Re quested 06/26/2015 Referral: Cameron Khanna WPtel: [address] [facility] [place] Referral Initiated 06/11/2015 Referral: Marco Antonio Green WPtel: [address] [id number] 05/30/15 Needs to be there at pre op time per ~sl Initiated 06/04/2015 Visit Plan: Will get all necessary refer rals set up - CTS, Uro and G/S Swallow study and routine labs ordered Will further investigate left leg pain with EMG if not cardio related 05/24/2015 [facility]ment[facility] [facility] 05/24/2015 Patient Education: Patient Medication Summary Completed 05/24/2015 Care Plan: Referral Order SNOMED-CT : 30 [id number] Pending 05/24/2015 Care Plan: Referral Order SNOMED-CT : 30 8791509 Pending 05/24/2015 Care Plan: Referral Order SNOMED-CT : 30 1709751 Pending 05/24/2015 Referral: Sudheer Gann WPtel: [address] [facility] [place] Referral Appointment Requested Referral: Alfonzo Andujar WPtel: [address] [facility] [place] Referral Initiated Referral: [facility] [address] [id number] [place] Referral Completed Referral: Jey Cameron BismarkLisandra WPtel: [phone] [place] [address] [place] Referral Appointment Requested Referral: RoseBrianna WPtel: [address] [place] [address] [place] Referral Initiated Referral: Héctor Woodard WPtel: [address] [place] [address] [place] 05/24/15 [facility] office suggested he see another card. ~sl Initiated Referral: Alfonzo Andujar WPtel: [address] [place] [address] [place] Referral Appointment Requested Referral: Marco Antonio Green WPtel: [address] [place] [address] [place] Referral Appointment Requested Instructions Comment . [...]
[2019-09-02] MEDS ORDERED: HYDROcodone/APAP 5 MG/325 MG (LORTAB) TAB PO ONE (12:15)
--- OUTSIDE RECORDS SUMMARY | 2019-09-02 12:21 | XMS REPORT | Continuity of Care Document ---
Author Organization Unknown Address Unknown Phone Unavailable Allergies Active Description Code Type Severity Reaction Onset Reported/Identified Relationship to Patient Clinical Status Yes cefaclor [id number] Drug Allergy Mild N/A 11/10/2018 Yes Penicillins [id number] Drug Aller gy Mild N/A 11/10/2018 Medications There is no data. 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 09/13/2015 LARS WATSONC, ALI FACP CCDS Ot R94.31 ABNORMAL ELECTROCARDIOGRAM [ECG] [EKG] 09/13/2015 LARS AMATO FACC, ALI FACP CCDS Ot Z72.0 TOBACCO USE 11/01/2015 JACKIE GONZALEZ APRN Ot M54.6 PAIN IN THORACIC SPINE 11/01/2015 JACKIE GONZALEZ APRN Ot R07.81 PLEURODYNIA 11/01/2015 Ot F17.210 NI COTINE DEPENDENCE, CIGARETTES, UNCOMPL 11/01/2015 LARS AMATO FACC, ALI FACP CCDS Ot 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 11/01/2015 LARS [...] FACC, ALI FACP CCDS Ot 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 05/09/2016 LARS WATSONC, ALI FACP CCDS Ot R94.31 ABNORMAL ELECTROCARDIOGRAM [ECG] [EKG] 05/09/2016 LARS AMATO FACC, ALI FACP CCDS Ot Z72.0 TOBACCO USE 05/12/2016 JACKIE GONZALEZ INTERIOR DESIGN PROFESSOR Ot M54.6 PAIN IN THORACIC SPINE 05/12/2016 JACKIE GONZALEZ INTERIOR DESIGN PROFESSOR Ot R07.81 PLEURODYNIA 05/12/2016 Ot F17.210 NI COTINE DEPENDENCE, CIGARETTES, UNCOMPL 05/12/2016 LARS AMATO FACC, ALI FACP CCDS Ot 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 05/12/2016 LARS AMATO FACC, ALI FACP CCDS Ot R94.31 ABNORMAL ELECTROCARDIOGRAM [ECG] [EKG] 05/12/2016 LARS AMATO FACC, ALI FACP CCDS Ot Z72.0 TOBACCO USE 05/15/2016 JACKIE GONZALEZ INTERIOR DESIGN PROFESSOR Ot M54.6 PAIN IN THORACIC SPINE 05/15/2016 JACKIE GONZALEZ INTERIOR DESIGN PROFESSOR Ot R07.81 PLEURODYNIA 05/15/2016 Ot F17.210 NI COTINE DEPENDENCE, CIGARETTES, UNCOMPL 05/15/2016 LARS AMATO FACC, ALI FACP CCDS Ot 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 05/15/2016 LARS AMATO FACC, ALI FACP CCDS Ot R94.31 ABNORMAL ELECTROCARDIOGRAM [ECG] [EKG] 05/15/2016 LARS AMATO FACC, ALI FACP CCDS Ot Z72.0 TOBACCO USE 05/16/2016 LARS AMATO FACC, ALI FACP CCDS Ot 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 05/16/2016 LARS AMATO FACC, ALI FACP CCDS Ot R94.31 ABNORMAL ELECTROCARDIOGRAM [ECG] [EKG] 05/16/2016 LARS AMATO FACC, ALI FACP CCDS Ot Z72.0 TOBACCO USE 06/02/2016 LARS WATSONC, ALI FACP CCDS Ot 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 06/02/2016 LARS AMATO FACC, ALI FACP CCDS Ot R94.31 ABNORMAL ELECTROCARDIOGRAM [ECG] [EKG] 06/02/2016 LARS WATSONC, ALI FACP CCDS Ot Z72.0 TOBACCO USE 06/18/2016 LARS WATSONC, ALI FACP CCDS Ot 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 06/18/2016 LARS WATSONC, ALI FACP CCDS Ot R94.31 ABNORMAL ELECTROCARDIOGRAM [ECG] [EKG] 06/18/2016 LARS AMATO FACC, ALI FACP CCDS Ot Z72.0 TOBACCO USE 07/16/2016 JACKIE GONZALEZ INTERIOR DESIGN PROFESSOR Ot M54.6 PAIN IN THORACIC SPINE 07/16/2016 JACKIE GONZALEZ APRN Ot R07.81 PLEURODYNIA 07/16/2016 Ot F17.210 NI COTINE DEPENDENCE, CIGARETTES, UNCOMPL 07/16/2016 LARS WATSONC, ALI FACP CCDS Ot 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 07/16/2016 LARS AMATO FACC, ALI FACP CCDS Ot R94.31 ABNORMAL ELECTROCARDIOGRAM [ECG] [EKG] 07/16/2016 LARS AMATO FACC, ALI FACP CCDS Ot Z72.0 TOBACCO USE 07/16/2016 LARS AMATO FACC, ALI FACP CCDS Ot 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 07/16/2016 LARS WATSONC, ALI FACP CCDS Ot R94.31 ABNORMAL ELECTROCARDIOGRAM [ECG] [EKG] 07/16/2016 LARS AMATO FACC, ALI FACP CCDS Ot Z72.0 TOBACCO USE 07/16/2016 LARS AMATO FACC, ALI FACP CCDS Ot 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 07/16/2016 LARS WATSONC, ALI FACP CCDS Ot R94.31 ABNORMAL ELECTROCARDIOGRAM [ECG] [EKG] 07/16/2016 LARS AMATO FACC, ALI FACP CCDS Ot Z72.0 TOBACCO USE 07/17/2016 JACKIE GONZALEZ INTERIOR DESIGN PROFESSOR Ot M54.6 PAIN IN THORACIC SPINE 07/17/2016 JACKIE GONZALEZ INTERIOR DESIGN PROFESSOR Ot R07.81 PLEURODYNIA 07/17/2016 Ot F17.210 NI COTINE DEPENDENCE, CIGARETTES, UNCOMPL 07/17/2016 LARS WATSONC, ALI FACP CCDS Ot 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 07/17/2016 LARS AMATO FACC, ALI FACP CCDS Ot R94.31 ABNORMAL ELECTROCARDIOGRAM [ECG] [EKG] 07/17/2016 LARS AMATO FACC, ALI FACP CCDS Ot Z72.0 TOBACCO USE 07/17/2016 LARS WATSONC, ALI FACP CCDS Ot 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 07/17/2016 LARS AMATO FACC, ALI FACP CCDS Ot R94.31 ABNORMAL ELECTROCARDIOGRAM [ECG] [EKG] 07/17/2016 LARS AMATO FACC, ALI FACP CCDS Ot Z72.0 TOBACCO USE 07/17/2016 LARS WATSONC, ALI FACP CCDS Ot 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 07/17/2016 LARS AMATO FACC, ZEE FACP CCDS Ot R94.31 ABNORMAL ELECTROCARDIOGRAM [ECG] [EKG] 07/17/2016 LARS AMATO FACC, ALI FACP CCDS Ot Z72.0 TOBACCO USE 07/21/2016 JACKIE GONZALEZ INTERIOR DESIGN PROFESSOR Ot M54.6 PAIN IN THORACIC SPINE 07/21/2016 JACKIE GONZALEZ INTERIOR DESIGN PROFESSOR Ot R07.81 PLEURODYNIA 07/21/2016 Ot F17.210 NI COTINE DEPENDENCE, CIGARETTES, UNCOMPL 07/21/2016 LARS WATSONC, ALI FACP CCDS Ot 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 07/21/2016 LARS AMATO FACC, ZEE FACP CCDS Ot R94.31 ABNORMAL ELECTROCARDIOGRAM [ECG] [EKG] 07/21/2016 LARS AMATO FACC, ALI FACP CCDS Ot Z72.0 TOBACCO USE 07/21/2016 LARS AMATO FACC, ALI FACP CCDS Ot 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 07/21/2016 LARS AMATO FACC, ALI FACP CCDS Ot R94.31 ABNORMAL ELECTROCARDIOGRAM [ECG] [EKG] 07/21/2016 LARS AMATO FACC, ALI FACP CCDS Ot Z72.0 TOBACCO USE 07/21/2016 LARS MD FACC, ALI FACP CCDS Ot 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 07/21/2016 LARS AMATO FACC, ALI FACP CCDS Ot R94.31 ABNORMAL ELECTROCARDIOGRAM [ECG] [EKG] 07/21/2016 LARS AMATO FACC, ALI FACP CCDS Ot Z72.0 TOBACCO USE 07/22/2016 JACKIE GONZALEZ INTERIOR DESIGN PROFESSOR Ot M54.6 PAIN IN THORACIC SPINE 07/22/2016 JACKIE GONZALEZ INTERIOR DESIGN PROFESSOR Ot R07.81 PLEURODYNIA 07/22/2016 Ot F17.210 NI COTINE DEPENDENCE, CIGARETTES, UNCOMPL 07/22/2016 LARS AMATO FACC, ALI FACP CCDS Ot 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 07/22/2016 LARS AMATO FACC, ALI FACP CCDS Ot R94.31 ABNORMAL ELECTROCARDIOGRAM [ECG] [EKG] 07/22/2016 LARS AMATO FACC, ALI FACP CCDS Ot Z72.0 TOBACCO USE 07/22/2016 LARS AMATO FACC, ALI FACP CCDS Ot 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 07/22/2016 LARS AMATO FACC, ALI FACP CCDS Ot R94.31 ABNORMAL ELECTROCARDIOGRAM [ECG] [EKG] 07/22/2016 LARS AMATO FACC, ALI FACP CCDS Ot Z72.0 TOBACCO USE 07/22/2016 LARS AMATO FACC, ALI FACP CCDS Ot 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 07/22/2016 LARS AMATO FACC, ALI FACP CCDS Ot R94.31 ABNORMAL ELECTROCARDIOGRAM [ECG] [EKG] 07/22/2016 LARS AMATO FACC, ALI FACP CCDS Ot Z72.0 TOBACCO USE 07/23/2016 LARS AMATO FACC, ALI FACP CCDS Ot I70.213 ATHSCL [place] ARTERIES OF EXTRM W INTRMT 07/23/2016 LARS [...] FACC, ALI FACP CCDS Ot I70.213 [facility]CL [facility] [facility] 07/25/2016 LARS AMATO FACC, ALI FACP CCDS [...] FACC, ALI FACP CCDS Ot I70.213 ATHSCL [place] [facility] 08/06/2016 LARS AMATO FACC, ALI FACP CCDS Ot I70.92 CHRONIC TOTAL OCCLUSION OF ARTERY OF THE 08/06/2016 LARS AMATO FACC, ALI FACP CCDS Ot Z72.0 TOBACCO USE 08/06/2016 LARS AMATO FACC, ALI FACP CCDS Ot Z79.899 OTHER INFECTION CONTROL PRACTITIONER (CURRENT) DRUG THERAPY 08/06/2016 LARS AMATO FACC, ALI FACP CCDS Ot Z95.820 PERIPHERAL VASCULAR ANGIOPLASTY STATUS W 08/08/2016 LARS AMATO FACC, ALI FACP CCDS Ot I45.10 UNSPECIFIED RIGHT BUNDLE-BRANCH BLOCK 08/08/2016 LARS AMATO FACC, ALI FACP CCDS Ot I70.213 ATHSCL [place] [facility]IES [facility] 08/08/2016 LARS AMATO FACC, ALI FACP CCDS Ot I70.92 CHRONIC TOTAL OCCLUSION OF ARTERY OF THE 08/08/2016 LARS AMATO FACC, ALI FACP CCDS Ot Z72.0 TOBACCO USE 08/08/2016 LARS AMATO FACC, ALI FACP CCDS Ot Z79.899 OTHER HALFWAY (CURRENT) DRUG THERAPY 08/08/2016 LARS AMATO FACC, ALI FACP CCDS Ot Z95.820 PERIPHERAL VASCULAR ANGIOPLASTY STATUS W 08/11/2016 LARS AMATO FACC, ALI FACP CCDS Ot I45.10 UNSPECIFIED RIGHT BUNDLE-BRANCH BLOCK 08/11/2016 LARS AMATO FACC, ALI FACP CCDS Ot I70.213 ATHSCL [place] ARTERIES OF EXTRM W INTRMT 08/11/2016 LARS AMATO FACC, ALI FACP CCDS Ot I70.92 CHRONIC TOTAL OCCLUSION OF ARTERY OF THE 08/11/2016 LARS AMATO FACC, ALI FACP CCDS Ot Z72.0 TOBACCO USE 08/11/2016 LARS AMATO FACC, ALI FACP CCDS Ot Z79.899 OTHER HALFWAY (CURRENT) DRUG THERAPY 08/11/2016 LARS AMATO FACC, [...] 01/30/2017 ANGELIQUE SHRESTHA DOLINE S Ot Z79.82 HALFWAY (CURRENT) USE OF ASPIRIN 01/30/2017 ANGELIQUE SHRESTHA DOLINE S Ot Z79.899 OTHER INFECTION CONTROL PRACTITIONER (CURRENT) DRUG THERAPY 01/30/2017 ANGELIQUE SHRESTHA DOLINE S Ot Z95.828 PRESENCE OF OTHER VASCULAR IMPLANTS AND 01/31/2017 CARLOS JACKIE Ramires APRN Ot M54.6 PAIN IN THORACIC SPINE 01/31/2017 CARLOS JACKIEMURIEL Ramires APRN Ot R07.81 PLEURODYNIA 01/31/2017 Ot F17.210 NI COTINE DEPENDENCE, CIGARETTES, UNCOMPL 01/31/2017 LARS AMATO FACC, ALI FACP CCDS Ot 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 01/31/2017 LARS AMATO FACC, ALI FACP CCDS Ot R94.31 ABNORMAL ELECTROCARDIOGRAM [ECG] [EKG] 01/31/2017 LARS AMATO FACC, ALI FACP CCDS Ot Z72.0 TOBACCO USE 01/31/2017 LARS AMATO FACC, ALI FACP CCDS Ot 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 01/31/2017 LARS AMATO FACC, ALI FACP CCDS Ot R94.31 ABNORMAL ELECTROCARDIOGRAM [ECG] [EKG] 01/31/2017 LARS AMATO FACC, ALI FACP CCDS Ot Z72.0 TOBACCO USE 01/31/2017 LARS AMATO FACC, ALI FACP CCDS Ot 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 01/31/2017 LARS AMATO FACC, ALI FACP CCDS Ot R94.31 ABNORMAL ELECTROCARDIOGRAM [ECG] [EKG] 01/31/2017 LARS WATSONC, ALI FACP CCDS Ot Z72.0 TOBACCO USE 01/31/2017 JACKIE GONZALEZ APRN Ot M54.6 PAIN IN THORACIC SPINE 01/31/2017 JACKIE GONZALEZ APRN Ot R07.81 PLEURODYNIA 01/31/2017 Ot F17.210 NI COTINE DEPENDENCE, CIGARETTES, UNCOMPL 01/31/2017 LARS AMATO FACC, ALI FACP CCDS Ot 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 01/31/2017 LARS AMATO FACC, ALI FACP CCDS Ot R94.31 ABNORMAL ELECTROCARDIOGRAM [ECG] [EKG] 01/31/2017 ALRS AMATO FACC, ALI FACP CCDS Ot Z72.0 TOBACCO USE 01/31/2017 LARS AMATO FACC, ALI FACP CCDS Ot 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 01/31/2017 LARS AMATO FACC, ALI FACP CCDS Ot R94.31 ABNORMAL ELECTROCARDIOGRAM [ECG] [EKG] 01/31/2017 LARS AMATO FACC, ALI FACP CCDS Ot Z72.0 TOBACCO USE 01/31/2017 LARS AMATO FACC, ALI FACP CCDS Ot 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 01/31/2017 LARS [...] AMATO FACC, ALI FACP CCDS Ot Z79.02 INFECTION CONTROL PRACTITIONER (CURRENT) USE OF ANTITHROMBOTI 04/15/2017 LARS AMATO FACC, ALI FACP CCDS Ot 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) 04/16/2017 LARS WATSONC, ALI FACP CCDS Ot F17.210 NICOTINE DEPENDENCE, CIGARETTES, UNCOMPL 04/16/2017 LARS WATSONC, ALI FACP CCDS Ot I73.9 PERIPHERAL VASCULAR DISEASE, UNSPECIFIED 04/16/2017 LARS AMATO FACC, ALI FACP CCDS Ot Z79.02 HALFWAY (CURRENT) USE OF ANTITHROMBOTI 04/16/2017 LARS WATSONC, ALI FACP CCDS Ot 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) 06/17/2017 LARS WATSONC, ALI FACP CCDS Ot E78.5 HYPERLIPIDEMIA, UNSPECIFIED 06/17/2017 LARS AMATO FACC, ALI FACP CCDS Ot 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 06/17/2017 LARS AMATO FACC, ALI FACP CCDS Ot R94.31 ABNORMAL ELECTROCARDIOGRAM [ECG] [EKG] 06/22/2017 LARS WATSONC, ALI FACP CCDS Ot E78.5 HYPERLIPIDEMIA, UNSPECIFIED 06/22/2017 LARS MD FACC, ALI FACP CCDS Ot 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 06/22/2017 LARS AMATO FACC, ALI FACP CCDS Ot R94.31 ABNORMAL ELECTROCARDIOGRAM [ECG] [EKG] 07/06/2017 LARS WATSONC, ALI FACP CCDS Ot E78.5 HYPERLIPIDEMIA, UNSPECIFIED 07/06/2017 LARS AMATO FACC, ALI FACP CCDS Ot 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 07/06/2017 LARS AMATO FACC, ALI FACP CCDS Ot R94.31 ABNORMAL ELECTROCARDIOGRAM [ECG] [EKG] 07/07/2017 LARS WATSONC, ALI FACP CCDS Ot E78.5 HYPERLIPIDEMIA, UNSPECIFIED 07/07/2017 LARS AMATO FACC, ALI FACP CCDS Ot 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 07/07/2017 LARS WATSONC, ALI FACP CCDS Ot R94.31 ABNORMAL ELECTROCARDIOGRAM [ECG] [EKG] 07/07/2017 LARS AMATO FACC, ALI FACP CCDS Ot E78.5 HYPERLIPIDEMIA, UNSPECIFIED 07/07/2017 LARS WATSONC, ALI FACP CCDS Ot 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 07/07/2017 LARS AMATO FACC, ALI FACP CCDS Ot R94.31 ABNORMAL ELECTROCARDIOGRAM [ECG] [EKG] 07/23/2017 LARS AMATO FACC, ALI FACP CCDS Ot E78.5 HYPERLIPIDEMIA, UNSPECIFIED 07/23/2017 LARS WATSONC, ALI FACP CCDS Ot 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 07/23/2017 LARS WATSONC, ALI FACP CCDS Ot R94.31 ABNORMAL ELECTROCARDIOGRAM [ECG] [EKG] 11/23/2017 LARS AMATO FACC, ALI FACP CCDS Ot E78.5 HYPERLIPIDEMIA, UNSPECIFIED 11/23/2017 LARS AMATO FACC, ALI FACP CCDS Ot 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 11/23/2017 LARS WATSONC, ALI FACP CCDS Ot R94.31 ABNORMAL ELECTROCARDIOGRAM [ECG] [EKG] 12/16/2017 LARS MD FACC, ALI FACP CCDS Ot E78.5 HYPERLIPIDEMIA, UNSPECIFIED 12/16/2017 LARS AMATO FACC, ALI FACP CCDS Ot G62.9 POLYNEUROPATHY, UNSPECIFIED 12/16/2017 LARS AMATO FACC, ALI FACP CCDS Ot I70.201 UNSP ATHSCL [place] ARTERIES OF [facility] 12/16/2017 LARS AMATO FACC, ALI FACP CCDS Ot R00.2 PALPITATIONS 12/16/2017 LARS AMATO FACC, ALI FACP CCDS Ot Z11.2 ENCOUNTER FOR SCREENING FOR OTHER BACTER 12/16/2017 LARS WATSONC, ALI FACP CCDS Ot Z72.0 TOBACCO USE 12/16/2017 LARS AMATO FACC, ALI FACP CCDS Ot Z79.01 HALFWAY (CURRENT) USE OF ANTICOAGULANT 12/16/2017 LARS AMATO FACC, ALI FACP CCDS Ot Z79.82 INFECTION CONTROL PRACTITIONER (CURRENT) USE OF ASPIRIN 12/16/2017 LARS AMATO [...] ALI FACP CCDS Ot I70.201 UNSP ATHSCL [place] ARTERIES OF [facility] 12/17/2017 LARS AMATO FACC, ALI FACP CCDS Ot R00.2 PALPITATIONS 12/17/2017 LARS AMATO FACC, ALI FACP CCDS Ot Z11.2 ENCOUNTER FOR SCREENING FOR OTHER BACTER 12/17/2017 LARS AMATO FACC, ALI FACP CCDS Ot Z72.0 TOBACCO USE 12/17/2017 LARS AMATO FACC, ALI FACP CCDS Ot Z79.01 HALFWAY (CURRENT) USE OF ANTICOAGULANT 12/17/2017 LARS AMATO FACC, ALI FACP CCDS Ot Z79.82 INFECTION CONTROL PRACTITIONER (CURRENT) USE OF ASPIRIN 12/17/2017 LARS WATSONC, [...] ZEE FACP CCDS Ot I70.201 UNSP ATHSCL [place] ARTERIES OF [facility] 12/21/2017 ZEE SOUSA MD, FACC FACP CCDS Ot R00.2 PALPITATIONS 12/21/2017 ZEE SOUSA MD, FACC FACP CCDS Ot Z11.2 ENCOUNTER FOR SCREENING FOR OTHER BACTER 12/21/2017 ZEE SOUSA MD, FACC FACP CCDS Ot Z72.0 TOBACCO USE 12/21/2017 LARS AMATO FACC ALI FACP CCDS Ot Z79.01 INFECTION CONTROL PRACTITIONER (CURRENT) USE OF ANTICOAGULANT 12/21/2017 ZEE SOUSA MD, FACC FACP CCDS Ot Z79.82 INFECTION CONTROL PRACTITIONER (CURRENT) USE OF ASPIRIN 12/21/2017 LARS AMATO FACC, ALI FACP CCDS Ot 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) 12/21/2017 LARS AMATO FACC, ZEE FACP CCDS Ot Z95.5 PRESENCE OF CORONARY ANGIOPLASTY IMPLANT 01/18/2018 LARS AMATO FACC, ZEE FACP CCDS Ot I70.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 W INTRWA 01/18/2018 ZEE SOUSA MD, FACC FACP CCDS Ot M79.604 PAIN IN RIGHT LEG 01/18/2018 LRAS AMATO FACC, ALI FACP CCDS Ot Z72.0 TOBACCO USE 01/18/2018 LARS AMATO FACC, ALI FACP CCDS Ot Z95.828 PRESENCE OF OTHER VASCULAR IMPLANTS AND 01/19/2018 ZEE SOUSA MD, FACC FACP CCDS Ot E78.5 HYPERLIPIDEMIA, UNSPECIFIED 01/19/2018 LARS AMATO FACC, ALI FACP CCDS Ot I70.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 W INTRWA 01/19/2018 ZEE SOUSA MD, FACC FACP CCDS Ot R94.31 ABNORMAL ELECTROCARDIOGRAM [ECG] [EKG] 01/19/2018 ZEE SOUSA MD, [facility]ACC [facility] CCDS Ot 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] VASCULAR ANGIOPLASTY STATUS W 02/17/2018 OTILIO MARKS METAL TEMPLATE MAKER Ot I70.213 ATHSCL [place] ARTERIES OF EXTRM W INTRMT 03/04/2018 OTILIO MARKS METAL TEMPLATE MAKER Ot I70.213 ATHSCL [place] ARTERIES OF EXTRM W INTRMT 04/08/2018 MARQUISOTILIO CRUZ METAL TEMPLATE MAKER Ot I70.213 ATHSCL [place] ARTERIES OF EXTRM W INTRMT 09/16/2018 GIANCARLO OREILLY MD, Ot Z01.81 8 ENCOUNTER FOR OTHER PREPROCEDURAL EXAMIN 09/21/2018 GIANCARLO OREILLY MD, Ot Z01.81 8 ENCOUNTER FOR OTHER PREPROCEDURAL EXAMIN 09/21/2018 GIANCARLO OREILLY MD, Ot Z01.81 8 ENCOUNTER FOR OTHER PREPROCEDURAL EXAMIN 09/22/2018 LARS AMATO FACC, ALI FACP CCDS Ot E78.5 HYPERLIPIDEMIA, UNSPECIFIED 09/22/2018 LARS AMATO FACC, ALI FACP CCDS Ot 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 09/22/2018 LARS AMATO FACC, ALI FACP CCDS Ot R94.31 ABNORMAL ELECTROCARDIOGRAM [ECG] [EKG] 09/22/2018 LARS AMATO FACC, ALI FACP CCDS Ot 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 09/22/2018 LARS [...] MD, Ot I25.10 ATHSCL HEART DISEASE OF [place] CORONARY 10/03/2018 GIANCARLO OREILLY MD Ot K21.0 [...] GIANCARLO OREILLY MD, Ot Z79.89 9 OTHER INFECTION CONTROL PRACTITIONER (CURRENT) DRUG THERAPY 10/03/2018 GIANCARLO OREILLY MD, [...] TO OTHER ANTIBIOTIC AGENT 10/15/2018 MIRIAM PLUMMER INTERIOR DESIGN PROFESSOR Ot M79.89 OTHER SPECIFIED SOFT TISSUE DISORDERS 10/19/2018 SREE RICHTER INTERIOR DESIGN PROFESSOR Ot I87.333 CHRONIC VENOUS HTN W ULCER AND INFLAM OF 10/19/2018 SREE RICHTER INTERIOR DESIGN PROFESSOR Ot I 96 GANGRENE, NOT ELSEWHERE CLASSIFIED 10/19/2018 SREE RICHTER INTERIOR DESIGN PROFESSOR Ot L97.322 NON-PRESSURE CHRONIC ULCER OF LEFT ANKLE 10/19/2018 SREE RICHTER INTERIOR DESIGN PROFESSOR Ot L97.512 NON-PRS CHRONIC ULCER OTH PRT RIGHT FOOT 11/10/2018 LARS AMATO FACC, ALI FACP CCDS Ot E78.5 HYPERLIPIDEMIA, UNSPECIFIED 11/10/2018 LARS AMATO FACC, ALI FACP CCDS Ot 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 05/17/2019 W T85.818A B lood clot due to device, implant, or graft DominikguanakoGualbertoJanneth S. 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 08/02/2019 LARS AMATO FACC, ALI FACP CCDS Ot R26.89 OTHER ABNORMALITIES OF GAIT AND MOBILITY 08/02/2019 LARS AMATO FACC, ALI FACP CCDS Ot Z98.890 OTHER SPECIFIED POSTPROCEDURAL STATES 08/04/2019 LARS AMATO FACC, ALI FACP CCDS Ot E11.9 TYPE 2 DIABETES MELLITUS WITHOUT COMPLIC 08/04/2019 LARS AMATO FACC, ALI FACP CCDS Ot I48.0 PAROXYSMAL ATRIAL FIBRILLATION 08/04/2019 LARS AMATO FACC, ALI FACP CCDS Ot 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 42 TYPE 2 DIABETES MELLITUS WITH DIABETIC P 08/10/2019 ARACELY REYES MD, Ot E11. 51 TYPE 2 DIABETES W DIABETIC PERIPHERAL AN 08/10/2019 AARCELY REYES MD, Ot G47. 9 SLEEP DISORDER, UNSPECIFIED 08/10/2019 ARACELY REYES MD, Ot K21. 9 GASTRO-ESOPHAGEAL REFLUX DISEASE WITHOUT 08/10/2019 ARACELY REYES MD, Ot K59. 09 OTHER CONSTIPATION 08/10/2019 ARACELY REYES MD, Ot L03.115 CELLULITIS OF RIGHT LOWER LIMB 08/10/2019 ARACELY REYES MD, Ot R13. 10 DYSPHAGIA, UNSPECIFIED 08/10/2019 ARACELY REYES MD, Ot S91.331A PUNCTURE WOUND WITHOUT FOREIGN BODY, RIG 08/10/2019 ARACELY REYES MD, Ot W45.0XXA NAIL ENTERING THROUGH SKIN, INITIAL ENCO 08/10/2019 ARACELY REYES MD Ot Z23 ENCOUNTER FOR IMMUNIZATION 08/10/2019 ARACELY REYES MD Ot Z79. 02 HALFWAY (CURRENT) USE OF ANTITHROMBOTI 08/10/2019 ARACELY REYES MD Ot Z86.718 PERSONAL HISTORY OF OTHER VENOUS THROMBO 08/10/2019 ARACELY REYES MD Ot Z87.891 PERSONAL HISTORY OF NICOTINE DEPENDENCE 08/10/2019 ARACELY REYES MD Ot Z91. 5 PERSONAL HISTORY OF SELF-HARM 08/10/2019 ARACELY REYES MD Ot Z95.828 PRESENCE OF OTHER VASCULAR IMPLANTS AND 08/18/2019 W E11.65 DM w/o complication type II, uncontrolled Orender, Janneth S. 08/18/2019 W S91.331A P uncture wound of right foot Orender, Janneth S. 08/18/2019 W E11.65 DM w/o complication type II, uncontrolled Orender, Janneth S. 08/18/2019 W S91.331A P uncture wound of right foot Orender, Janneth S. 08/18/2019 W E11.65 DM w/o complication type II, uncontrolled Orender, Janneth S. 08/18/2019 W S91.331A P uncture wound of right foot Orender, Janneth S. 08/22/2019 W E11.65 DM w/o complication type II, uncontrolled Orender, Janneth S. 08/22/2019 W L03.115 Ce llulitis of right foot Orender, Janneth S. 08/22/2019 W S91.331A P uncture wound of right foot Orender, Janneth S. Procedures There is no data. Results Test [...] u[iU]/mL 0.35-4.94 Automated blood complete blood count ( mogram) panel - 07/22/16 07:45 Blood leukocytes [...] mg/dL 8.5-10.1 Automated blood complete blood count ( mogram) panel - 08/05/16 07:40 Blood leukocytes [...] mg/dL 0.1-1.0 Serum or plasma alkaline phosphatase kraen surement (enzymatic activity/volume) 67 U/L 40-136 Serum [...] MMEN NRG FREE TEXT EXTERNAL SUSCEPTIBILITY REPORTED [id number] NRG QUANTITY OF GROWTH . NRG MRSA [...] 08/04 04:45 Blood monocytes/100 leukocytes 1 % NRG Manual blood segmented neutrophils/100 leukocytes 92 % NRG Blood band neutrophils/100 leukocytes 1 % NRG Manual blood lymphocytes/100 leukocytes 4 % NRG Manual eosinophils/100 leukocytes in nose 0 % NRG Manual blood basophils/100 leukocytes 0 % NRG Blood lymphocytes variant/100 leukocytes 2 % [facility] Blood erythrocyte morphology finding identification NORMAL [facility] Comprehensive metabolic panel - 11/11/18 04:45 Serum [...] d white blood cell (WBC) differential - 08/06/19 14:20 Blood leukocytes automated count (number/volume) 7.8 10*3/uL 4.3-11.0 Blood erythrocytes automated count (number/volume) 4.68 10*6/uL 4.35-5.85 Venous blood hemoglobin measurement (mass/volume) 13.6 g/dL 13.3-17.7 Blood hematocrit (volume fraction) 40 % 40-54 Automated erythrocyte mean corpuscular volume 86 [ foz_us] 80-99 Automated erythrocyte mean corpuscular h emoglobin (mass per erythrocyte) 29 pg 25-34 Automated erythrocyte mean corpuscular h emoglobin concentration measurement (mass/volume) 34 g/dL 32-36 Automated erythrocyte distribution width ratio 13. 5 % 10.0- 14.5 Automated blood platelet count (count/volume) 215 10*3/uL 130-400 Automated blood platelet mean volume measurement 10.2 [foz_us] 7.4-10.4 Automated blood neutrophils/100 leukocytes 67 % 42-75 Automated blood lymphocytes/100 leukocytes 22 % 12-44 Blood monocytes/100 leukocytes 9 % 0-12 Automated blood eosinophils/100 leukocytes 3 % 0-10 Automated blood basophils/100 leukocytes 0 % 0-10 Blood neutrophils automated count (number/volume) 5.2 10*3 1.8-7.8 Blood lymphocytes automated count (number/volume) 1.7 10*3 1.0-4.0 Blood monocytes automated count (number/volume) 0. 7 10*3 0.0-1.0 Automated eosinophil count 0.2 10*3/uL 0 .0-0.3 Automated blood basophil count (count/volume) 0.0 10*3/uL 0.0-0.1 Comprehensive metabolic panel - 08/06/19 14:20 Serum or plasma sodium measurement (moles/volume) 140 mmol/L 135-145 Serum or plasma potassium measurement (moles/volume) 4.3 mmol/L 3.6-5.0 Serum or plasma chloride measurement (moles/volume) 104 mmol/L 98-107 Carbon dioxide 22 mmol/L 21-32 Serum or plasma anion gap determination (moles/volume) 14 mmol/L 5-14 Serum or plasma urea nitrogen measurement (mass/volume ) 13 mg/dL 7-18 Serum or plasma creatinine measurement (mass/volume) 0.99 mg/dL 0.60-1.30 Serum or plasma urea nitrogen/creatinine mass ratio 13 NRG Serum or plasma creatinine measurement w ith calculation of estimated glomerular filtration rate > NRG Serum or plasma glucose measurement (mass/volume) 102 mg/dL 70-105 Serum or plasma calcium measurement (mass/volume) 9.9 mg/dL 8.5-10.1 Serum or plasma total bilirubin measurement (mass/volu me) 0.5 mg/dL 0.1-1.0 Serum or plasma alkaline phosphatase karen surement (enzymatic activity/volume) 106 U/L 40-136 Serum or plasma aspartate aminotransfera se measurement (enzymatic activity/volume) 31 U/L 5-34 Serum or plasma alanine aminotransferase measurement (enzymatic activity/volume) 50 U/L 0-55 Serum or plasma protein measurement (mass/volume) 8.3 g/dL 6.4-8.2 Serum or plasma albumin measurement (mass/volume) 4.4 g/dL 3.2-4.5 CALCIUM CORRECTED 9.6 mg/dL 8.5-10.1 Serum or plasma C reactive protein measu rement (mass/volume) - 08/06/19 14:20 Serum or plasma C reactive protein measurement (mass/v olume) > mg/dL 0.00-0.50 Erythrocyte sedimentation rate by mikhail gren method - 08/06/19 14:20 Erythrocyte sedimentation rate by westergren method 95 mm 0- 30 Vancomycin trough - 08/08/19 02:03 Vancomycin trough 20.3 ug/mL 10.0-20.0 Capillary blood glucose measurement by g lucometer (mass/volume) - 08/08/19 16:02 Capillary blood glucose measurement by glucometer (mas s/volume) 113 mg/dL 70-110 Capillary blood glucose measurement by g lucometer (mass/volume) - 08/08/19 20:12 Capillary blood glucose measurement by glucometer (mas s/volume) 106 mg/dL 70-110 Automated blood complete blood count (he mogram) panel - 08/09/19 05:10 Blood leukocytes automated count (number/volume) 5.7 10*3/uL 4.3-11.0 Blood erythrocytes automated count (number/volume) 4.24 10*6/uL 4.35-5.85 Venous blood hemoglobin measurement (mass/volume) 12.0 g/dL 13.3-17.7 Blood hematocrit (volume fraction) 36 % 40-54 Automated erythrocyte mean corpuscular volume 86 [ foz_us] 80-99 Automated erythrocyte mean corpuscular h emoglobin (mass per erythrocyte) 28 pg 25-34 Automated erythrocyte mean corpuscular h emoglobin concentration measurement (mass/volume) 33 g/dL 32-36 Automated erythrocyte distribution width ratio 13. 5 % 10.0- 14.5 Automated blood platelet count (count/volume) 256 10*3/uL 130-400 Automated blood platelet mean volume measurement 10.2 [foz_us] 7.4-10.4 Serum or plasma C reactive protein measu rement (mass/volume) - 08/09/19 05:10 Serum or plasma C reactive protein measurement (mass/v olume) 6.98 mg/dL 0.00-0.50 Erythrocyte sedimentation rate by mikhail gren method - 08/09/19 05:10 Erythrocyte sedimentation rate by westergren method 69 mm 0- 30 Capillary blood glucose measurement by g lucometer (mass/volume) - 08/09/19 05:32 Capillary blood glucose measurement by glucometer (mas s/volume) 171 mg/dL 70-110 Capillary blood glucose measurement by g lucometer (mass/volume) - 08/09/19 12:08 Capillary blood glucose measurement by glucometer (mas s/volume) 81 mg/dL 70-110 Capillary blood glucose measurement by g lucometer (mass/volume) - 08/09/19 16:21 Capillary blood glucose measurement by glucometer (mas s/volume) 118 mg/dL 70-110 Vancomycin trough - 08/09/19 18:58 Vancomycin trough 24.0 ug/mL 10.0-20.0 Capillary blood glucose measurement by g lucometer (mass/volume) - 08/09/19 20:11 Capillary blood glucose measurement by glucometer (mas s/volume) 166 mg/dL 70-110 Capillary blood glucose measurement by g lucometer (mass/volume) - 08/10/19 06:30 Capillary blood glucose measurement by glucometer (mas s/volume) 119 mg/dL 70-110 Vancomycin trough - 08/10/19 06:54 Vancomycin trough 15.2 ug/mL 10.0-20.0 Capillary blood glucose measurement by g lucometer (mass/volume) - 08/10/19 10:55 Capillary blood glucose measurement by glucometer (mas s/volume) 128 mg/dL 70-110 Encounters ACCT No. Visit Date/Time Discharge Status Pt. Type Provider Facility Loc./Unit Complaint 06/201703/01/2019 16:53:33 03/01/2019 23:59: 59 CLS Outpatient Janneth Shrestha 5615 04/11/2019 14:14:00 Document Registration [id number] 08/06/2019 13:06:00 14:01:00 DIS Outpatient ERIC AMATO, ARACELY Narayanan [facility] 4TH CELLULITIS FOOT [id number] 05/09/2019 13:32:00 00:01:00 DIS Outpatient LARS AMATO FACC, ZEE AMATO CC DS [facility] REHAB PAD OF Bartolome GLYNN [id number] 11/10/2018 13:24:00 12:50:00 DIS Inpatient HENRIETTA CHILD JANNETH S [facility] 4TH CELLULITIS LLB [id number] 10/19/2018 08:30:00 23:59:59 CLS Preadmit OTILIO MARKS [facility] CARD PAD [id number] 10/14/2018 07:59:00 23:59:59 CLS Outpatient SREE RICHTER INTERIOR DESIGN PROFESSOR [facility] WOUNDCARE [id number] 10/13/2018 10:42:00 23:59:59 CLS Outpatient MIRIAM PLUMMER INTERIOR DESIGN PROFESSOR [facility] RAD R FOOT PAIN AND SWELLING [id number] 09/22/2018 14:15:00 23:59:59 CLS Preadmit GIANCARLO OREILLY MD [facility] ENDO DYSPHAGIA [id number] 09/22/2018 09:15:00 12:05:00 DIS Outpatient GIANCARLO OREILLY MD [facility] ENDO DYSPHAGIA [id number] 09/21/2018 11:30:00 12:12:00 DIS Outpatient GIANCARLO OREILLY MD [facility] PREOP EGD [id number] 01/27/2018 13:21:00 12:02:00 DIS Outpatient OTILIO MARKS [facility] REHAB B LEG PAIN [id number] 01/19/2018 14:02:00 18:37:00 DIS Emergency LAKESHIA AMATO, JUS Hernandez [facility] ER R LEG PAIN [id number] 01/15/2018 12:30:00 018 23:59:59 CLS Outpatient LARS AMATO FACC, ALI FACP CC DS [facility] RAD RT HIP PAIN ,RT KNEE PAIN,PAD [id number] 12/15/2017 08:21:00 018 10:06:00 DIS Outpatient LARS AMATO FACC, ALI FACP CC DS [facility] CATH PAD [id number] 07/07/2017 07:25:00 018 23:59:59 CLS Outpatient LARS AMATO FACC, ALI FACP CC DS [facility] CARD I70.212 PAD [id number] 05/13/2017 08:00:00 018 23:59:59 CLS Preadmit LARS AMATO FACC, ALI FACP CCDS [facility] CARD I70.212 PAD [id number] 04/14/2017 06:34:00 018 10:05:00 DIS Outpatient LARS AMATO FACC, ALI FACP CC DS [facility] CATH PVD,LEG DISCOMFORT,CLAUDICATION [id number] 02/12/2017 07:45:00 017 23:59:59 CLS Preadmit LARS AMATO FACC, ALI FACP CCDS [facility] CARD R06.02 SOB [id number] 01/29/2017 09:30:00 017 10:52:00 DIS Inpatient JANNETH SHRESTHA DO S [facility] ICU OVERDOSE,AMS [id number] 08/05/2016 07:07:00 017 10:15:00 DIS Outpatient LARS AMATO FACC, ALI FACP CC DS [facility] CATH PAD,HL [id number] 07/22/2016 07:27:00 017 09:20:00 DIS Outpatient LARS AMATO FACC, ALI FACP CC DS [facility] CATH PAD,BILATER AL LEG DISCOMFORTS,HYPERLIPIDEMIA [id number] 06/03/2016 11:46:00 23:59:59 CLS Outpatient LARS AMATO FACC, ZEE WATSONP CC DS [facility] RAD PAD,TOBACCO USER,ABNORMAL ECG [id number] 05/15/2016 10:39:00 23:59:59 CLS Outpatient LARS AMATO FACC, ZEE WATSONP CC DS [facility] LAB PAD,TOBACCO USER,ABNORMAL ECG [id number] 08/31/2015 14:08:00 23:59:59 CLS Outpatient LARS AMATO FACC, ZEE WATSONP CC DS [facility] CARD PAD, TOBACC O USER, ABNORMAL EKG [id number] 06/29/2015 10:39:00 23:59:59 CLS Outpatient JACKIE GONZALEZ APRN [facility] RAD THORACIC PAIN L T SCAPULA, LT POSRERIOR RIB PAIN [id number] 06/04/2015 08:47:00 016 23:59:59 CLS Outpatient QUINTEN ZENG MD [facility] SDC SCREENING [id number] 06/01/2015 05:39:00 09:28:00 DIS Outpatient QUINTEN ZENG MD [facility] PREOP SCREENING [id number] 05/30/2015 11:48:00 23:59:59 CLS Outpatient JACKIE GONZALEZ APRN [facility] RAD DYSPHAGIA [id number] 07/31/2015 12:03:00 Document Registration
[2019-09-02 12:24] LABS: ALBUMIN 4.4 GM/DL (3.2-4.5)
[2019-09-02 12:25] LABS: CHLORIDE 105 MMOL/L (98-107); POTASSIUM 4.3 MMOL/L (3.6-5.0); SODIUM 138 MMOL/L (135-145)
[2019-09-02 12:26] LABS: CALCIUM 9.4 MG/DL (8.5-10.1)
[2019-09-02 12:27] LABS: GLUCOSE 112 MG/DL (70-105); TOTAL PROTEIN 7.9 GM/DL (6.4-8.2)
[2019-09-02 12:28] LABS: CARBON DIOXIDE 21 MMOL/L (21-32)
[2019-09-02 12:29] LABS: BILIRUBIN,TOTAL 0.6 MG/DL (0.1-1.0)
[2019-09-02 12:30] LABS: ALKALINE PHOSPHATASE 92 U/L (40-136)
[2019-09-02 12:31] LABS: CREATININE SERUM 1.11 MG/DL (0.60-1.30); GFR ESTIMATED > 60
--- NOTE | 2019-09-02 12:31 | Diagnostic Imaging Report ---
HISTORY: Stepped on nail. History of diabetes. COMPARISON: 08/06/2019 TECHNIQUE: 3 views of the right foot FINDINGS: There is a soft tissue defect in the lateral aspect of the right foot adjacent to the midshaft of the 5th metatarsal. No radiopaque foreign body is seen. No cortical erosion or periosteal reaction is seen. No acute fracture seen in the right foot. There are degenerative changes in the 2nd through 4th proximal interphalangeal joints of the right foot. IMPRESSION: 1. Soft tissue defect at the lateral right foot with no radiopaque foreign body or acute osseous abnormality seen. Dictated by: Dictated on workstation # [id number]
[2019-09-02 12:32] LABS: BUN/CREATININE RATIO 18
[2019-09-02 12:33] LABS: ALANINE AMINOTRANSFERASE 94 U/L (0-55)
[2019-09-02] MEDS ORDERED: HEParin DRIP 25000 UNIT/500ML 500 ML IV ONE (12:57)
[2019-09-02] MEDS ORDERED: HEParin 1000 UNIT/ML (10ML VIAL) FOR BOLUS IV ONE (13:00)
[2019-09-02] MEDS ORDERED: fentaNYL INJECTION 100 MCG/2 ML AMP IVP ONE (13:15)
[2019-09-02] MEDS ORDERED: NS IV 1000 ML 1,000 ML IV SCH (13:15)
[2019-09-02 13:26] LABS: BASOPHILS % (AUTO) 0 % (0-10); EOSINOPHILS # (AUTO) 0.3 10^3/uL (0.0-0.3); EOSINOPHILS % (AUTO) 4 % (0-10); HEMATOCRIT 37 % (40-54); HEMOGLOBIN 12.4 G/DL (13.3-17.7); LYMPHOCYTES # (AUTO) 1.8 X 10^3 (1.0-4.0); LYMPHOCYTES % (AUTO) 27 % (12-44); MEAN CORPUSCULAR HEMOGLOBIN 28 PG (25-34); MEAN CORPUSCULAR HGB CONC 33 G/DL (32-36); MEAN CORPUSCULAR VOLUME 85 FL (80-99); MEAN PLATELET VOLUME 10.4 FL (7.4-10.4); MONOCYTES # (AUTO) 0.6 X 10^3 (0.0-1.0); MONOCYTES % (AUTO) 9 % (0-12); NEUTROPHILS % (AUTO) 60 % (42-75); PLATELET COUNT 181 10^3/uL (130-400); RED CELL DISTRIBUTION WIDTH 14.5 % (10.0-14.5); WHITE BLOOD COUNT 6.7 10^3/uL (4.3-11.0)
[2019-09-02 13:51] LABS: ERYTHROCYTE SEDIMENTATION RATE 44 MM/HR (0-30)
--- NOTE | 2019-09-02 14:02 | Diagnostic Imaging Report ---
HISTORY: Severe right leg pain. COMPARISON: 08/08/2019. TECHNIQUE: Grayscale, color Doppler and spectral Doppler ultrasound of the arterial structures in the right lower extremity. FINDINGS: The right common femoral artery appears patent, with a slightly biphasic waveform, measuring 146 cm/s. The deep femoral artery has a monophasic waveform and measures 198 cm/s. The femoropopliteal bypass graft appears to be occluded proximally to distally. The mid popliteal artery measures 38 cm/s and has a monophasic waveform. The posterior tibial artery has a monophasic waveform and measures 26 cm/s. The anterior tibial artery is monophasic and measures 22 cm/s. The dorsalis pedis is monophasic and measures 10 cm/s. IMPRESSION: 1. 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 There is reconstitution of flow distally, although it is diminished with monophasic waveforms. Dictated by: Dictated on workstation # [id number]
[2019-09-02 14:57] VITALS: BP 122/68
== END 2019-09-02 14:57 | disposition short-term general hospital (02) ==
LOC: EDUNIT# 10:27 → ER 10:28
DX: I74.3 Embolism and thrombosis of arteries of the lower extremities (principal); S91.331A Puncture wound without foreign body, right foot, initial encounter; E11.40 Type 2 diabetes mellitus with diabetic neuropathy, unspecified; Z79.82 Long term (current) use of aspirin; Z79.02 Long term (current) use of antithrombotics/antiplatelets; Z87.891 Personal history of nicotine dependence; Z88.0 Allergy status to penicillin; Z88.1 Allergy status to other antibiotic agents; Z79.84 Long term (current) use of oral hypoglycemic drugs; Z95.1 Presence of aortocoronary bypass graft; Z95.5 Presence of coronary angioplasty implant and graft; Z89.021 Acquired absence of right finger(s); Z86.718 Personal history of other venous thrombosis and embolism; W26.8XXA Contact with other sharp object(s), not elsewhere classified, initial encounter
CPT/HCPCS: 36415; 73630; 80053; 85025; 85652; 93926

== ENCOUNTER 2019-11-18 12:34 | Outpatient (RCR) | payer BC ==
[~2019-11-18 12:34] MED LIST changes: +ASPI-1238 PO; -ASPI-983 PO
== END 2019-12-29 15:23 | disposition home or self-care (01) ==
PROVIDERS: ATTEND Orthopaedic Surgery
DX: M21.371 Foot drop, right foot (principal); M79.661 Pain in right lower leg; E11.9 Type 2 diabetes mellitus without complications

== ENCOUNTER → 2020-01-17 | Outpatient (CLI) | payer BC ==
[~2020-01-17] MED LIST changes: +CIPR500T4 PO; -CLIN300C11 PO; +CLIN300C12 PO
--- NOTE | 2020-01-17 14:35 | Diagnostic Imaging Report ---
Procedure: US right lower extremity venous. Technique: Multiple real-time grayscale images were obtained over the right lower extremity in various projections. Additional spectral analysis and color Doppler duplex images were also obtained. Date: January 17, 2020. Indication: 59-year-old male, right lower extremity swelling and pain. Comparison: October 13, 2018. Findings: There is a left inguinal lymph node with unremarkable lymph node morphology measuring 1.6 x 1.2 x 3.1 cm in size. The right common femoral vein, right superficial femoral vein, and right popliteal vein demonstrates blood flow and response to augmentation. The right posterior tibial vein and peroneal veins are patent. The imaged portions of the right greater saphenous vein and deep femoral vein are patent. Impression: 1. Negative for right lower extremity deep venous thrombosis. Dictated by: Dictated on workstation # [id number]
== END ==
LOC: RAD 12:28
PROVIDERS: ATTEND Family Medicine
DX: R22.41 Localized swelling, mass and lump, right lower limb (principal)

== ENCOUNTER 2020-01-21 20:31 | Emergency (ER) | payer BC ==
[~2020-01-21] VITALS: Ht 190 cm; Wt 83.0 kg
[~2020-01-21 20:31] MED LIST changes: -CIPR500T4 PO
--- NOTE | 2020-01-21 20:42 | ED Lower Extremity ---
General Chief Complaint: Laceration Stated Complaint: R FOOT LACERATION Source: patient Exam Limitations: no limitations History of Present Illness Date Seen by Provider: Jan 21, 2020 Time Seen by Provider: 20:42 Initial Comments To ER with a puncture wound to the lateral plantar surface of the right forefoot after he stepped on a nail. Tetanus was updated 1 week ago he states. Onset: just prior to arrival Severity: mild Pain/Injury Location: right foot Modifying Factors: Worse With Movement Allergies and Home Medications Allergies Coded Allergies: Penicillins (Verified Allergy, Mild, 11/10/18) cefaclor (Verified Allergy, Mild, 11/10/18) Home Medications Aspirin 81 Mg Tablet.dr, 81 MG PO HS, (Reported) Clopidogrel Bisulfate 75 Mg Tablet, 75 MG PO DAILY, (Reported) Cyclobenzaprine HCl 10 Mg Tablet, 10 MG PO HS PRN for MUSCLE SPASMS, (Reported) Levofloxacin 750 Mg Tablet, 750 MG PO DAILY@1100 Prescribed by: SYLVIA MARIA on 08/10/19 1333 Metformin HCl 500 Mg Tab.er.24, 500 MG PO BID, (Reported) Metoprolol Succinate 50 Mg Tab.er.24h, 50 MG PO DAILY, (Reported) Multivit &Minerals/Ferrous Fum 9 Mg/15 Ml Liquid, 9 MG PO DAILY, (Reported) Patient Home Medication List Home Medication List Reviewed: Yes Review of Systems Constitutional: see HPI EENTM: see HPI Respiratory: no symptoms reported Cardiovascular: no symptoms reported Genitourinary: no symptoms reported Musculoskeletal: see HPI Skin: no symptoms reported Psychiatric/Neurological: No Symptoms Reported Past Xygiimf-Xehsbo-Lyzqsr Hx Patient Social History Type Used: Cigarettes Former Smoker, Quit: Dec 15, 2016 2nd Hand Smoke Exposure: No Recent Foreign Travel: No Contact w/Someone Who Travel: No Recent Hopitalizations: No Immunizations Up To Date Tetanus Booster (TDap): More than 5yrs PED Vaccines UTD: Yes Seasonal Allergies Seasonal Allergies: No Past Medical History Surgeries: Yes (R FINGER AMPUTATION, ING HERNIA X2, TOE TENDON, AORTIC STENT, LEG BYPASS) CABG, Orthopedic, Vascular Surgery Respiratory: No Currently Using CPAP: No Currently Using BIPAP: No Cardiac: Yes (HX OF AORTIC STENT, multiple stents to lorin. lower extremities) Deep Vein Thrombosis, Peripheral Vascular Neurological: No Neuropathy Sexually Transmitted Disease: No HIV/AIDS: No Genitourinary: No Gastrointestinal: Yes (DYSPHAGIA) Chronic Constipation Musculoskeletal: No (FINGERS AMP ) Amputee Endocrine: No HEENT: Yes (GLASSES) Loss of Vision: Denies Hearing Impairment: Denies Cancer: No Psychosocial: No Sleep Difficulties, Suicide Attempts Integumentary: No Blood Disorders: No Adverse Reaction/Blood Tranf: No (N/A) Family Medical History No Pertinent Family Hx Physical Exam Vital Signs Capillary Refill : Height, Weight, BMI Height: 6'4.00" Weight: 180lbs. 0.0oz. 81.769153bu; 22.00 BMI Method:Stated General Appearance: WD/WN, no apparent distress Respiratory: no respiratory distress, no accessory muscle use Hips: bilateral hip non-tender, bilateral hip normal inspection, bilateral hip normal range of motion Legs: bilateral leg non-tender, bilateral leg normal inspection, bilateral leg normal range of motion Knees: bilateral knee non-tender, bilateral knee normal inspection, bilateral knee normal range of motion Ankles: bilateral ankle non-tender, bilateral ankle normal inspection, bilateral ankle normal range of motion Feet: left foot other (There is a nonbleeding but tender to touch puncture wound to the plantar surface of the right foot near the distal third of the fifth metatarsal) Neurologic/Tendon: normal sensation, normal motor functions, normal tendon functions Neurologic/Psychiatric: alert, normal mood/affect, oriented x 3 Skin: normal color, warm/dry Progress/Results/Core Measures Results/Orders My Orders Orders - TOMMY HOOPER APRN Foot, Right, 3 View (01/21/20 20:39) Ciprofloxacin Tablet (Cipro Tablet) (01/21/20 20:45) Rx-Hydrocodone/Apap 5-325 Mg (Rx-Vicodin (01/21/20 20:45) Departure Impression Primary Impression: Puncture wound of plantar aspect of foot Disposition: HOME, SELF-CARE Condition: Stable Departure-Patient Inst. Decision time for Depature: 20:45 Referrals: SYLVIA MARIA DO (PCP) Primary Care Physician Patient Instructions: Wound Care Add. Discharge Instructions: 1. Antibiotics as directed. Return to ER for any concerns. Follow-up with your doctor next week. Emergency department focuses on treating and ruling out life-threatening diseases. Whenever possible, a diagnosis is given. However, most patients are given an impression based on their history, physical exam, and workup during your brief time in the ER. Information about probable diagnosis and other educational material has been provided. Please take the time to read and understand this information. It is very important that you follow up with a physician as discussed during the visit today. Failure to adhere to your follow-up instructions may lead to severe disability, injury, or so please make sure to keep your appointments or obtain one as requested. All discharge instructions reviewed with patient and/or family. Voiced understanding. Scripts Ciprofloxacin HCl (Ciprofloxacin HCl) 500 Mg Tablet 500 MG PO BID, #6 TAB Prov: TOMMY HOOPER APRN 01/21/20 TOMMY HOOPER APRN Jan 21, 2020 20:42
[2020-01-21] MEDS ORDERED: RX-HYDROCODONE/APAP 5/325 MG #4 TAB PK PO PRN (20:45)
[2020-01-21] MEDS ORDERED: CIPROFLOXACIN 500 MG (CIPRO) TABLET PO SCH (20:45)
[2020-01-21] MEDS ORDERED: CIPR500T4 PO (20:46)
[2020-01-21 21:02] VITALS: BP 115/69
--- NOTE | 2020-01-21 21:06 | Diagnostic Imaging Report ---
INDICATION: Puncture wound to the plantar aspect of the right foot. Stepped on a nail. FINDINGS: There are what are likely degenerative subluxations demonstrated of the metatarsophalangeal joints which does not appear significantly changed compared to a prior study from August 2019. There are no findings of fracture of an acute osseous injury. The mid and hindfoot demonstrate no acute process. There is no soft tissue gas or evidence of a retained radiodense foreign body. 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 There is no acute osseous injury or evidence of a radiodense foreign body. Dictated by: Dictated on workstation # [id number]
== END 2020-01-21 21:06 | disposition home or self-care (01) ==
LOC: EDUNIT# 20:31 → ER 20:34
DX: S91.331A Puncture wound without foreign body, right foot, initial encounter (principal); Z95.5 Presence of coronary angioplasty implant and graft; Z95.1 Presence of aortocoronary bypass graft; Z87.891 Personal history of nicotine dependence; Z88.0 Allergy status to penicillin; Z88.1 Allergy status to other antibiotic agents; Z79.82 Long term (current) use of aspirin; W45.0XXA Nail entering through skin, initial encounter
CPT/HCPCS: 73630

== ENCOUNTER 2020-02-18 15:21 | Inpatient (IN) | payer BC ==
[~2020-02-18] VITALS: Ht 190 cm; Wt 79.5 kg
[~2020-02-18 15:21] MED LIST changes: +CIPR500T4 PO
[2020-02-18] MEDS ORDERED: VANCOMYCIN INJECTION 1,000 MG in NS (IVPB) 250 ML IV ONE (16:00)
[2020-02-18] MEDS ORDERED: CEFEPIME INJECTION 1,000 MG in WATER (STERILE) FOR INJECTION 10 ML IV ONE (16:00)
[2020-02-18] MEDS ORDERED: fentaNYL INJECTION 100 MCG/2 ML AMP IVP ONE (16:00)
[2020-02-18 16:48] LABS: BASOPHILS % (AUTO) 0 % (0-10); EOSINOPHILS # (AUTO) 0.2 10^3/uL (0.0-0.3); EOSINOPHILS % (AUTO) 3 % (0-10); HEMATOCRIT 37 % (40-54); HEMOGLOBIN 11.8 g/dL (13.3-17.7); LYMPHOCYTES # (AUTO) 1.7 10^3/uL (1.0-4.0); LYMPHOCYTES % (AUTO) 20 % (12-44); MEAN CORPUSCULAR HEMOGLOBIN 28 pg (25-34); MEAN CORPUSCULAR HGB CONC 32 g/dL (32-36); MEAN CORPUSCULAR VOLUME 86 fL (80-99); MEAN PLATELET VOLUME 10.2 fL (9.0-12.2); MONOCYTES # (AUTO) 0.6 10^3/uL (0.0-1.0); MONOCYTES % (AUTO) 7 % (0-12); NEUTROPHILS # (AUTO) 6.1 10^3/uL (1.8-7.8); NEUTROPHILS % (AUTO) 70 % (42-75); PLATELET COUNT 265 10^3/uL (130-400); WHITE BLOOD COUNT 8.7 10^3/uL (4.3-11.0)
[2020-02-18 16:53] LABS: CHLORIDE 104 MMOL/L (98-107); POTASSIUM 4.8 MMOL/L (3.6-5.0)
[2020-02-18 16:54] LABS: SODIUM 137 MMOL/L (135-145)
[2020-02-18 16:55] LABS: CALCIUM 9.2 MG/DL (8.5-10.1); GLUCOSE 133 MG/DL (70-105)
[2020-02-18 16:57] LABS: CARBON DIOXIDE 21 MMOL/L (21-32)
[2020-02-18 16:59] LABS: CREATININE SERUM 0.96 MG/DL (0.60-1.30); GFR ESTIMATED > 60
[2020-02-18 17:00] LABS: BUN/CREATININE RATIO 13
--- NOTE | 2020-02-18 17:01 | Diagnostic Imaging Report ---
INDICATION: Foot ulcer. TIME OF EXAM: 4:29 p.m. EXAMINATION: Two views of the right foot were obtained. FINDINGS: There appears to be an ulcer along the lateral aspect of the right foot at the level of the base of the 5th metatarsal. No underlying bony destructive changes are seen. Metatarsals and phalanges appear intact. Midfoot and hindfoot are unremarkable. IMPRESSION: Foot ulcer on the lateral right foot. No bony destructive change is seen to suggest osteomyelitis. Dictated by: Dictated on workstation # [id number]
--- NOTE | 2020-02-18 17:14 | ED Lower Extremity ---
General Chief Complaint: Lower Extremity Stated Complaint: R FOOT WOUND Nursing Triage Note: PT CO OF ULCER ON OUT SIDED OF L FOOT AREA REDDEND, OPEN ULCER . PT STATES HAS BEEN THERE FOR 1 MONTH AND CURRENTLY ON CIPROFLOXIN FOR ULCER. ODOR NOTED BY THIS RN WHEN CLOSE TO FOOT. PT STATES HAS PAIN 10/10 PAIN. Nursing Sepsis Screen: No Definite Risk Source: patient Exam Limitations: no limitations History of Present Illness Date Seen by Provider: Feb 18, 2020 Time Seen by Provider: 15:30 Initial Comments Patient is a 59-year-old male who with a history of diabetes on Metformin who presents to the emergency department today with a chief complaint of an ulcer to the right foot. Patient states that he has had this ulcer for about 1 month. His primary care doctor has been treating him outpatient with ciprofloxacin. Patient is complaining of increased pain redness and swelling to that lower extremity. He denies any fevers, chills, cough, nausea vomiting or diarrhea. All other review of systems reviewed and negative except as stated above. Onset: other (1 month) Severity: severe Pain/Injury Location: right foot Allergies and Home Medications Allergies Coded Allergies: Penicillins (Verified Allergy, Mild, 11/10/18) cefaclor (Verified Allergy, Mild, 11/10/18) Home Medications Amitriptyline HCl 10 Mg Tablet, 10 MG PO HS, (Reported) Aspirin 81 Mg Tablet.dr, 81 MG PO DAILY, (Reported) Cilostazol 50 Mg Tablet, 50 MG PO BID, (Reported) Clopidogrel Bisulfate 75 Mg Tablet, 75 MG PO DAILY, (Reported) Cyclobenzaprine HCl 10 Mg Tablet, 10 MG PO HS, (Reported) Metformin HCl 500 Mg Tab.er.24h, 1,000 MG PO DAILY, (Reported) TAKES 2 (500MG) TABS Metoprolol Succinate 50 Mg Tab.er.24h, 50 MG PO DAILY, (Reported) Pantoprazole Sodium 40 Mg Tablet.dr, 40 MG PO DAILY, (Reported) Patient Home Medication List Home Medication List Reviewed: Yes Review of Systems Constitutional: see HPI EENTM: no symptoms reported Respiratory: no symptoms reported Cardiovascular: no symptoms reported Gastrointestinal: no symptoms reported Genitourinary: no symptoms reported Musculoskeletal: joint pain, joint swelling Skin: lesions, rash Psychiatric/Neurological: No Symptoms Reported All Other Systems Reviewed Negative Unless Noted: Yes Past Hzbvvtz-Umoxdz-Ejhylj Hx Patient Social History Type Used: Cigarettes Former Smoker, Quit: Dec 15, 2016 2nd Hand Smoke Exposure: No Recent Foreign Travel: No Contact w/Someone Who Travel: No Recent Infectious Disease Expo: No Recent Hopitalizations: No Physical Abuse: No Sexual Abuse: No Immunizations Up To Date Tetanus Booster (TDap): More than 5yrs PED Vaccines UTD: Yes Seasonal Allergies Seasonal Allergies: No Past Medical History Surgeries: Yes (R FINGER AMPUTATION, ING HERNIA X2, TOE TENDON, AORTIC STENT, LEG BYPASS) CABG, Orthopedic, Vascular Surgery Respiratory: No Currently Using CPAP: No Currently Using BIPAP: No Cardiac: Yes (HX OF AORTIC STENT, multiple stents to lorin. lower extremities) Deep Vein Thrombosis, Peripheral Vascular Neurological: No Neuropathy Sexually Transmitted Disease: No HIV/AIDS: No Genitourinary: No Gastrointestinal: Yes (DYSPHAGIA) Chronic Constipation Musculoskeletal: No (FINGERS AMP ) Amputee Endocrine: No HEENT: Yes (GLASSES) Loss of Vision: Denies Hearing Impairment: Denies Cancer: No Psychosocial: No Sleep Difficulties, Suicide Attempts Integumentary: No Blood Disorders: No Adverse Reaction/Blood Tranf: No (N/A) Family Medical History No Pertinent Family Hx Physical Exam Vital Signs Vital Signs - First Documented 02/18/20 15:45 Temp 36.6 Pulse 104 Resp 20 B/P (MAP) 140/90 (107) Pulse Ox 100 O2 Delivery Room Air Capillary Refill : Less Than 3 Seconds Height, Weight, BMI Height: 6'4.00" Weight: 180lbs. 0.0oz. 81.097197af; 22.00 BMI Method:Stated General Appearance: WD/WN, no apparent distress HEENT: PERRL/EOMI Neck: full range of motion Cardiovascular: regular rate, rhythm Respiratory: lungs clear, normal breath sounds, no respiratory distress, no accessory muscle use Gastrointestinal: normal bowel sounds, non tender Feet: right foot pain, right foot soft tissue tenderness, right foot swelling Neurologic/Tendon: normal sensation, normal motor functions, normal tendon functions Neurologic/Psychiatric: alert, normal mood/affect, oriented x 3 Skin: warm/dry, other (Patient has a 3 x 4 cm ulcer to the base of the right fifth metatarsal along the lateral edge of the foot surrounding erythema and 2+ pitting edema, erythema extends up and over the dorsum of the foot) Progress/Results/Core Measures Results/Orders Lab Results Laboratory Tests Test 02/18/20 16:20 Range/Units White Blood Count 8.7 4.3-11.0 10^3/uL Red Blood Count 4.28 L 4.30-5.52 10^6/uL Hemoglobin 11.8 L 13.3-17.7 g/dL Hematocrit 37 L 40-54 % Mean Corpuscular Volume 86 80-99 fL Mean Corpuscular Hemoglobin 28 25-34 pg Mean Corpuscular Hemoglobin Concent 32 32-36 g/dL Red Cell Distribution Width 14.5 10.0-14.5 % Platelet Count 265 130-400 10^3/uL Mean Platelet Volume 10.2 9.0-12.2 fL Immature Granulocyte % (Auto) 0 % Neutrophils (%) (Auto) 70 42-75 % Lymphocytes (%) (Auto) 20 12-44 % Monocytes (%) (Auto) 7 0-12 % Eosinophils (%) (Auto) 3 0-10 % Basophils (%) (Auto) 0 0-10 % Neutrophils # (Auto) 6.1 1.8-7.8 10^3/uL Lymphocytes # (Auto) 1.7 1.0-4.0 10^3/uL Monocytes # (Auto) 0.6 0.0-1.0 10^3/uL Eosinophils # (Auto) 0.2 0.0-0.3 10^3/uL Basophils # (Auto) 0.0 0.0-0.1 10^3/uL Immature Granulocyte # (Auto) 0.0 0.0-0.1 10^3/uL Erythrocyte Sedimentation Rate 72 H 0-30 MM/HR Sodium Level 137 135-145 MMOL/L Potassium Level 4.8 3.6-5.0 MMOL/L Chloride Level 104 98-107 MMOL/L Carbon Dioxide Level 21 21-32 MMOL/L Anion Gap 12 5-14 MMOL/L Blood Urea Nitrogen 12 7-18 MG/DL Creatinine 0.96 0.60-1.30 MG/DL Estimat Glomerular Filtration Rate > 60 BUN/Creatinine Ratio 13 Glucose Level 133 H 70-105 MG/DL Lactic Acid Level 2.84 *H 0.50-2.00 MMOL/L Calcium Level 9.2 8.5-10.1 MG/DL C-Reactive Protein High Sensitivity 3.98 H 0.00-0.50 MG/DL Micro Results Microbiology 02/18/20 Blood Culture - Preliminary, Resulted No growth 02/18/20 Blood Culture - Preliminary, Resulted No growth My Orders Orders - JARRET GAN MD Ed Iv/Invasive Line Start (02/18/20 16:00) Foot, Right, 2 View (02/18/20 16:00) Hs C Reactive Protein (02/18/20 16:00) Erythrocyte Sedimentation Rate (02/18/20 16:00) Cbc With Automated Diff (02/18/20 16:00) Basic Metabolic Panel (02/18/20 16:00) Fentanyl Injection (Sublimaze Injection (02/18/20 16:00) Vancomycin Injection (Vancomycin Injecti (02/18/20 16:00) Cefepime Injection (Maxipime Injection) (02/18/20 16:00) Lactic Acid Analyzer (02/18/20 16:05) Medications Given in ED Vital Signs/I&O 02/18/20 15:45 Temp 36.6 Pulse 104 Resp 20 B/P (MAP) 140/90 (107) Pulse Ox 100 O2 Delivery Room Air Blood Pressure Mean: 107 Progress Progress Note : Time: 17:27 Progress Note Wound was cleaned at the bedside with sterile water and Betasept soap. Irrigated copiously Case was discussed with Dr. Gonzales on for Dr. Shrestha who accepts the patient for admission Diagnostic Imaging Diagonstic Imaging: Xray Plain Films/CT/US/NM/MRI: other Comments [facility], [place] NAME: WILLIAM AVILA [facility] REC#: [id number] PT STATUS: REG ER : 1960 PHYSICIAN: JARRET GAN MD ADMIT DATE: 02/18/20/ER Signed Date of Exam:02/18/20 FOOT, RIGHT, 2 VIEW INDICATION: Foot ulcer. TIME OF EXAM: 4:29 p.m. EXAMINATION: Two views of the right foot were obtained. FINDINGS: There appears to be an ulcer along the lateral aspect of the right foot at the level of the base of the 5th metatarsal. No underlying bony destructive changes are seen. Metatarsals and phalanges appear intact. Midfoot and hindfoot are unremarkable. IMPRESSION: Foot ulcer on the lateral right foot. No bony destructive change is seen to suggest osteomyelitis. Dictated by: Dictated on workstation # [id number] Dict: 02/18/[id number] Trans: 02/18/201704 [facility] [id number] Interpreted by: MP WOMACK MD Electronically signed by: MP WOMACK MD 02/18/20 1708 Departure Communication (Admissions) Time/Spoke to Admitting Phy: 17:[address] Gonzales on for Dr. Shrestha who accepts the patient for admission Impression Primary Impression: Cellulitis Qualified Codes: L03.115 - Cellulitis of right lower limb Additional Impression: Diabetic foot ulcer Qualified Codes: E11.621 - Type 2 diabetes mellitus with foot ulcer; L97.512 - Non-pressure chronic ulcer of other part of right foot with fat layer exposed Disposition: ADMITTED INPATIENT Condition: Stable Admissions Decision to Admit Reason: Admit from ER (General) Decision to Admit/Date: Feb 18, 2020 Time/Decision to Admit Time: 17:27 Departure-Patient Inst. Referrals: SYLVIA SHRESTHA DO (PCP/Family) Primary Care Physician JARRET GAN MD Feb 18, 2020 17:14
[2020-02-18 17:18] LABS: ERYTHROCYTE SEDIMENTATION RATE 72 MM/HR (0-30)
[2020-02-18] MEDS ORDERED: VANCOMYCIN INJECTION 0.1 MG in NS (IVPB) 250 ML IV SCH (18:00)
--- NOTE | 2020-02-18 18:01 | NUR ---
WILLIAM VAILA admitted to room 408-1, with an admitting diagnosis of cellulitis , on 02/18/20 from ED via wheel chair , accompanied by staff .WILLIAM AVILA introduced to surroundings, call light, bed controls, phone, TV, temperature control, lights, meal times, smoking policy, visitor policy, side rail policy, bathrooms and showers. Patient Rights given to patient in the handbook. WILLIAM AVILA verbalizes understanding that [facility] is not responsible for the loss or damage to any personal effects or valuables that are kept in the patients posession during their hospitalization. The following Patient Care Plans and discharge were discussed with the patient. WILLIAM AVILA verbalizes understanding of Interdisciplinary Patient Education. Patient was informed about the Rapid Response Team and its purpose.
[2020-02-18 18:13] VITALS: BP 118/58
[2020-02-18] MEDS ORDERED: HYDROcodone/APAP 5 MG/325 MG (LORTAB) TAB ONE (18:20)
[2020-02-18] MEDS: NS IV 1000 ML 1,000 ML IV SCH (18:24)
[2020-02-18] MEDS: HYDROcodone/APAP 5 MG/325 MG (LORTAB) TAB PO PRN ×2 (18:25→22:26)
[2020-02-18] MEDS ORDERED: CILO50TA PO (18:47)
[2020-02-18] MEDS ORDERED: AMIT10TA6 PO (18:47)
[2020-02-18] MEDS ORDERED: AMIO200T6 PO (18:49)
[2020-02-18] MEDS ORDERED: PANT40TA52 PO (18:50)
[2020-02-18] MEDS ORDERED: CYCL10TA9 PO (18:56)
[2020-02-18 19:22] VITALS: BP 123/68
[2020-02-18 20:08] VITALS: BP 140/90
--- NOTE | 2020-02-18 20:19 | NUR ---
MAXIMO HUGGINS FOR SOA. INITIATE 02 TO KEEP SATS GREATER THAN 90%. RT TO REEVALUATE OR REASSESS IN 72 HOURS OR NEEDED Addendum: 02/18/20 at 2019 by VICKY CLAYTON RT Amended: Links added.
[2020-02-18] MEDS ORDERED: RT-ALBUTEROL/IPRATROPIUM 3 ML (DUONEB) VIAL INH PRN (20:30)
[2020-02-18] MEDS: ENOXAPARIN 40 MG/0.4 ML (LOVENOX) SYR SC SCH (20:39)
[2020-02-18] MEDS ORDERED: metroNIDAZOLE 500MG/100ML IVPB 100 ML IV SCH (21:00)
[2020-02-18] MEDS ORDERED: NS (IVPB) 250 ML ONE (22:30)
[2020-02-18] MEDS ORDERED: VANCOMYCIN 1000 MG/VIAL ONE (22:30)
[2020-02-18] MEDS: VANCOMYCIN 1 GM/NS 250 ML IVPB IV SCH ×2 (22:38)
[2020-02-18 23:58] VITALS: BP 112/64
[2020-02-19] MEDS: CEFEPIME INJECTION 1,000 MG in WATER (STERILE) FOR INJECTION 10 ML IV SCH ×6 (00:31→23:34)
[2020-02-19] MEDS: HYDROcodone/APAP 5 MG/325 MG (LORTAB) TAB PO PRN ×6 (02:25→22:09)
[2020-02-19] MEDS: NS IV 1000 ML 1,000 ML IV SCH ×4 (02:26→20:53)
[2020-02-19 04:21] VITALS: BP 113/68
[2020-02-19] MEDS: metroNIDAZOLE 500 MG/100 ML IVPB (PRE-MIX) IV SCH ×2 (06:35→17:59)
[2020-02-19 08:00] VITALS: BP 124/73
[2020-02-19] MEDS: PANTOPRAZOLE 40 MG (PROTONIX) TAB PO SCH (09:08)
--- NOTE | 2020-02-19 10:37 | History & Physical-Hospitalist ---
History of Present Illness HPI/Chief Complaint Patient presented to ED yesterday with increasing pain of right foot wound. He has had this wound for the past month. Likely due to abnormal movement of ankle from drop foot. Patient has been seeing Dr. Shrestha for treatment and has been on oral cipro. He has been afebrile but pain worsening over the last few days. He has diabetes well-controlled on metformin at home. He was found to have erythematous streaking and edema to top of foot. Afebrile with normal white count, but lactic acid and inflammatory markers elevated. Started on flagyl, cefepime and vanc in ED. Source: patient, family, spouse Exam Limitations: no limitations Date Seen 02/19/20 Time Seen by a Provider: 10:35 Attending Physician Maricarmen Brown MD PCP Janneth Shrestha DO Referring Physician Date of Admission Feb 18, 2020 at 17:29 Home Medications & Allergies Home Medications Reviewed patient Home Medication Reconciliation performed by pharmacy medication reconciliations cnc maintenance technician and/or nursing. Patients Allergies have been reviewed. Allergies Allergies Coded Allergies Penicillins (Verified Allergy, Mild, 11/10/18) cefaclor (Verified Allergy, Mild, 11/10/18) Past Eabjejy-Bdvvel-Bogzku Hx Past Med/Social Hx: Reviewed Nursing Past Med/Soc Hx Patient Social History Marrital Status: Alcohol Use: Denies Use Recreational Drug Use: No Smoking Status: Former Smoker Former Smoker, Quit: Dec 15, 2016 Type Used: Cigarettes 2nd Hand Smoke Exposure: No Physical Abuse Screen: No Sexual Abuse: No Recent Foreign Travel: No Contact w/other who traveled: No Recent Hopitalizations: No Recent Infectious Disease Expo: No Immunizations Up To Date Tetanus Booster (TDap): More than 5yrs Pediatric: Yes Seasonal Allergies Seasonal Allergies: No Past Medical History Surgeries: CABG, Orthopedic, Vascular Surgery Currently Using CPAP: No Currently Using BIPAP: No Cardiac: Deep Vein Thrombosis, Peripheral Vascular Neurological: Neuropathy Sexually Transmitted Disease: No HIV/AIDS: No Gastrointestinal: Chronic Constipation Musculoskeletal: Amputee Loss of Vision: Denies Hearing Impairment: Denies Psychosocial: Sleep Difficulties, Suicide Attempts History of Blood Disorders: No Adverse Reaction to Blood [place]: No (N/A) Family History Reviewed Nursing Family Hx Cardiovascular disease 19 FATHER Completed stroke 19 FATHER Diabetes mellitus 19 MOTHER Myocardial infarction 19 FATHER No Pertinent Family Hx Review of Systems Constitutional: No chills, No diaphoresis, No fever EENTM: No ear discharge, No hearing loss, No ear pain Respiratory: No cough, No dyspnea on exertion, No hemoptysis, No orthopnea, No short of breath Cardiovascular: No chest pain; edema; No palpitations Gastrointestinal: No abdominal pain, No constipation, No diarrhea Musculoskeletal: No back pain, No gout, No joint pain Skin: No change in color, No rash Psychiatric/Neurological: Denies Anxiety, Denies Depressed Physical Exam Physical Exam Vital Signs Vital Signs - First Documented 02/18/20 02/18/20 02/18/20 15:45 18:13 20:08 Temp 36.6 Pulse 104 Resp 20 B/P (MAP) 140/90 (107) Pulse Ox 100 O2 Delivery Room Air O2 Flow Rate 100.00 FiO2 21 Capillary Refill : Less Than 3 Seconds Height, Weight, BMI Height: 6'4.00" Weight: 180lbs. 0.0oz. 81.411841bx; 22.02 BMI Method:Stated General Appearance: No Apparent Distress, WD/WN Eyes: Bilateral Eye Normal Inspection HEENT: Moist Mucous Membranes Neck: Full Range of Motion, Normal Inspection Respiratory: Chest Non Tender, Lungs Clear, Normal Breath Sounds, No Accessory Muscle Use, No Respiratory Distress Cardiovascular: Regular Rate, Rhythm, No Edema (edema on dorsum of right foot) Gastrointestinal: Normal Bowel Sounds, No Organomegaly Back: Normal Inspection Extremity: Normal Capillary Refill, Normal Inspection, Normal Range of Motion Skin: Normal Color, Warm/Dry (warm/dry, other (Patient has a 3 x 4 cm ulcer to the base of the right fifth metatarsal along the lateral edge of the foot surrounding erythema and 2+ pitting edema, erythema extends up and over the dorsum of the foot)) Results Results/Procedures Labs Laboratory Tests 02/18/20 16:20 Patient resulted labs reviewed. Assessment/Plan Admission Diagnosis Cellulitis of diabetic foot ulcer of right foot. Admission Status: Inpatient Order (span 2 midnights) Reason for Inpatient Admission: Failed outpatient oral therapy. Assessment and Plan Cellulitis of right diabetic foot ulcer- Failed outpatient treatment. - Continue flagyl, cefepime, and vanc. Get wound culture. No drainage currently. - Will consult surgery vs. wound care in AM. - Treat pain. - Discussed plan with patient's while at bedside. DM2- Continue diabetic diet. Ppx- Lovenox. Diagnosis/Problems Diagnosis/Problems (1) Diabetic foot ulcer Status: Acute Qualifiers: Diabetic foot ulcer location: other Diabetes mellitus type: type 2 Laterality: right Non-pressure ulcer stage: with fat layer exposed Qualified Codes: E11.621 - Type 2 diabetes mellitus with foot ulcer; L97.512 - Non- pressure chronic ulcer of other part of right foot with fat layer exposed (2) Cellulitis Status: Acute Qualifiers: Site of cellulitis: extremity Site of cellulitis of extremity: lower extr emity Laterality: right Qualified Codes: L03.115 - Cellulitis of right lower limb (3) Diabetes Clinical Quality Measures DVT/VTE Risk/Contraindication: Risk Factor Score Per Nursin RFS Level Per Nursing on Admit: 4+=Very High MARICARMEN BROWN MD Feb 19, 2020 10:37
[2020-02-19 12:00] VITALS: BP 122/65
[2020-02-19] MEDS: VANCOMYCIN 1 GM/NS 250 ML IVPB IV SCH ×4 (12:08→22:10)
[2020-02-19 16:00] VITALS: BP 129/70
[2020-02-19] MEDS: ENOXAPARIN 40 MG/0.4 ML (LOVENOX) SYR SC SCH (19:38)
[2020-02-19 20:00] VITALS: BP 147/87
[2020-02-20 00:04] VITALS: BP 129/66
[2020-02-20] MEDS: HYDROcodone/APAP 5 MG/325 MG (LORTAB) TAB PO PRN ×3 (02:08→10:38)
[2020-02-20] MEDS: NS IV 1000 ML 1,000 ML IV SCH ×4 (03:26→22:03)
[2020-02-20 04:00] VITALS: BP 143/69
[2020-02-20] MEDS: CEFEPIME INJECTION 1,000 MG in WATER (STERILE) FOR INJECTION 10 ML IV SCH ×3 (06:13→17:39)
[2020-02-20] MEDS: metroNIDAZOLE 500 MG/100 ML IVPB (PRE-MIX) IV SCH ×2 (06:13→17:39)
[2020-02-20 06:45] LABS: CHLORIDE 107 MMOL/L (98-107)
[2020-02-20 06:46] LABS: SODIUM 138 MMOL/L (135-145)
[2020-02-20 06:47] LABS: CALCIUM 8.4 MG/DL (8.5-10.1); GLUCOSE 117 MG/DL (70-105)
[2020-02-20 06:49] LABS: CARBON DIOXIDE 22 MMOL/L (21-32)
[2020-02-20 06:51] LABS: CREATININE SERUM 0.83 MG/DL (0.60-1.30); GFR ESTIMATED > 60
[2020-02-20 06:52] LABS: BUN/CREATININE RATIO 12
[2020-02-20 08:00] VITALS: BP 152/85
[2020-02-20] MEDS: PANTOPRAZOLE 40 MG (PROTONIX) TAB PO SCH (08:11)
[2020-02-20] MEDS ORDERED: METF-865 PO (09:37)
--- NOTE | 2020-02-20 09:38 | NUR ---
SPOKE WITH THE PT, WENT THRU THE EXT MED HISTORY AND CALLED [facility] TO COMPLETE THE MED REC ATORVASTATIN 10MG IS SHOWN ON THE EXT MED HISTORY BUT ACCORDING TO THE PT HE WAS TAKEN OFF THIS MEDICATION BY A DR AT [facility] METFORMIN [facility] 500MG- DIRECTIONS ARE 2 TABS BID BUT PT SAYS HE TAKES 2 TABS DAILY AMITRIPTYLINE 10MG- DIRECTIONS ARE 1 TO 2 TABS HS, BUT PT SAYS HE ONLY TAKES 1 TAB HS PANTOPRAZOLE 40MG WAS LAST FILLED ON 02-16-2020 #30/30DS (THIS IS NOT SHOWN ON THE EXT MED HISTORY) OTC MEDS: ASPIRIN 81MG
[2020-02-20] MEDS: VANCOMYCIN 1 GM/NS 250 ML IVPB IV SCH ×4 (11:55→22:27)
[2020-02-20 12:00] VITALS: BP 132/79
--- NOTE | 2020-02-20 12:25 | Progress Note ---
Subjective Date Seen by a Provider: Feb 20, 2020 Time Seen by a Provider: 08:40 Subjective/Events-last exam Fwup right foot ulcer with cellulitis, DMII, PAD. C/O pain and swelling in right foot. Focused Exam Lactate Level 02/18/20 16:20: Lactic Acid Level 2.84*H 02/18/20 18:11: Lactic Acid Level 1.13 Objective Exam Vital Signs Date Time Temp Pulse Resp B/P (MAP) Pulse Ox O2 Delivery O2 Flow Rate FiO2 02/20/20 08:00 35.5 99 17 152/85 (107) 98 Room Air 02/20/20 07:47 Room Air 02/20/20 04:00 36.5 87 18 143/69 (93) 92 Room Air 02/20/20 00:04 36.2 88 20 129/66 (87) 98 Room Air 02/19/20 20:00 Room Air 02/19/20 20:00 35.9 86 20 147/87 (107) 99 Room Air 02/19/20 18:38 97 Room Air 02/19/20 16:00 36.0 87 18 129/70 (89) 100 Room Air I & O 02/20/20 07:00 Intake Total 1785 ml Output Total 3125 ml Balance -1340 ml Capillary Refill : Less Than 3 Seconds General Appearance: No Apparent Distress Respiratory: Lungs Clear Cardiovascular: Regular Rate, Rhythm Gastrointestinal: normal bowel sounds, non tender, soft Extremity: Non Tender, No Calf Tenderness, Pedal Edema (to right foot) Neurologic/Psychiatric: Alert, Oriented x3, Abnormal Gait Skin: Other (right foot ulcer over base of 5th metatarsal with good granulation tissue--surrounding callus but no surrounding erythema) Results Lab Laboratory Tests 02/19/20 15:01: Glucometer 132H 02/19/20 22:20: Glucometer 119H 02/20/20 06:25: Sodium Level 138, Potassium Level 4.0, Chloride Level 107, Carbon Dioxide Level 22, Anion Gap 9, Blood Urea Nitrogen 10, Creatinine 0.83, Estimat Glomerular Filtration Rate > 60, BUN/Creatinine Ratio 12, Glucose Level 117H, Calcium Level 8.4L Microbiology 02/18/20 Blood Culture - Preliminary, Resulted No growth Assessment/Plan Assessment/Plan Assess & Plan/Chief Complaint 1. Right Foot Ulcer with Cellulitis--continue abx, wound care consult, may need ortho/podiatry consult for possible Charcot Foot 2. DMII--controlled 3. PAD--resume plavix, aspirin 4. HTN--resume metoprolol Clinical Quality Measures DVT/VTE Risk/Contraindication: Risk Factor Score Per Nursin RFS Level Per Nursing on Admit: 4+=Very High SYLVIA MARIA DO Feb 20, 2020 12:25
--- NOTE | 2020-02-20 13:08 | Wound Care Assessment ---
Wound Care Assessment Date Seen by Provider: Feb 20, 2020 Time Seen by Provider: 12:45 Chief Complaint R lateral foot ulcer. HPI The patient is a 59 year old male with infected ulcer of the R lateral foot, present x one month, x-ray negative for osteomyelitis, but wound probes to bone. Blood glucose levels reportedly well-controlled. On broad spectrum IV antibiotics. Dakin's BID dressings and MRI of foot ordered to R/O osteomyelitis. Recent revision R ?fem-pop? bypass per Dr. Fenton. Arterial re-evaluation pending. Will hold off on debridement until adequate perfusion documented. Past Medical History: Admits Diabetes Type II, Admits Heart Disease (Hypertension), Admits Peripheral Artery Disease Smoking Status: Former Smoker Recreational Drug Use: No Alcohol Use: Denies Use Review of Systems Pulmonary: No Dyspnea Cardiovascular: No: Chest Pain Exam Vital Signs Date Time Temp Pulse Resp B/P (MAP) Pulse Ox O2 Delivery O2 Flow Rate FiO2 02/20/20 12:00 36.4 81 18 132/79 (96) 99 Room Air 02/18/20 20:08 21 02/18/20 18:27 100.00 Capillary Refill : Less Than 3 Seconds General Appearance: no apparent distress Respiratory: no respiratory distress Extremities: other (R lateral foot ulcer -- 2.3 x 1.8 x 0.4 cm, base 75% granulation, 25% slough. Mod. s.s. drainage. Probes to bone.) Results Laboratory Tests 02/19/20 15:01: Glucometer 132H 02/19/20 22:20: Glucometer 119H 02/20/20 06:25: Sodium Level 138, Potassium Level 4.0, Chloride Level 107, Carbon Dioxide Level 22, Anion Gap 9, Blood Urea Nitrogen 10, Creatinine 0.83, Estimat Glomerular Filtration Rate > 60, BUN/Creatinine Ratio 12, Glucose Level 117H, Calcium Level 8.4L Microbiology 02/18/20 Blood Culture - Preliminary, Resulted No growth Microbiology 02/18/20 Blood Culture - Preliminary, Resulted No growth 02/18/20 Blood Culture - Preliminary, Resulted No growth Assessment/Plan/Dx 1. Diabetic foot ulcer, R lateral foot, probes to bone, R/O osteomyelitis. 2. Charcot foot with varus deformity. 3. Peripheral artery disease, s/p revision per Dr. Rodriguez. Plan: continue antibiotics. MRI to R/O osteomyelitis. Trial of CAM walker to try to off-load. MAXIMO KLEIN MD Feb 20, 2020 13:08
[2020-02-20] MEDS: HYDROcodone/APAP 7.5 MG/325 MG (LORTAB, LORCET PLUS) TABLET PO PRN ×3 (14:19→22:26)
--- NOTE | 2020-02-20 14:31 | Physical Therapy Progress Note ---
Therapy Progress Note Awaiting right foot dressing by RN to don CAM boot. PT educated patient on donning CAM boot and issued a FWW for room use. Patient voices understanding. PT will reassess in a.m. 1 visit JAIRO DELACRUZ PT Feb 20, 2020 14:31
--- NOTE | 2020-02-20 15:17 | NUR ---
"RD ASSESSMENT PMHx: DVT; chronic constipation; amputation; DM; PT INTERACTION: Pt was awake and pleasant during nutrition assessment. Pt states current appetite is good. Note avg PO intake 75% x1d, per chart review. Pt states following a diabetic diet at home, and has no issues with chewing/swallowing food. Pt states some recent issues with diarrhea. Note last BM was 1/4, and pt not currently on bowel regimen per chart review. Pt states no recent significant wt changes. Note recent 8# wt gain x1mon, per chart review. Pt states current DM management is good. Note unable to determine recent HbA1c, per chart review. Note presence of wound (R foot - diabetic ulcer), per chart review. Est. kcal needs: 6226-7043 kcal | 25-30 kcal/kg Est. Pro needs: 96-112 g Pro | 1.2-1.4 g Pro/kg PES STATEMENT: Inadequate protein intake (NI-2.1) related to increased protein needs, as evidenced by presence of wound (R foot - diabetic foot ulcer). INTERVENTION: Continue with current diet order of CHO 60g/m 1snack diet. Offered diet education on DM management, but pt declined at this time. Will attempt to offer again prior to discharge. Pt may benefit from nutrition supplementation, for perceived benefit to wound healing. Will continue to follow and reassess as pt needs, intake, and status change. Meet ROE, MS RD LD [phone] cell"
[2020-02-20 16:00] VITALS: BP 127/73
[2020-02-20] MEDS ORDERED: GADOBUTROL 7.5 MMOL/7.5 ML (GADAVIST) VIAL IV ONE (16:00)
--- NOTE | 2020-02-20 16:45 | Diagnostic Imaging Report ---
PROCEDURE: MR imaging right lower extremity with and without contrast, 02/20/2020. TECHNIQUE: Multiplanar, multisequence pre and post contrast-enhanced MR imaging of the right lower extremity was accomplished. INDICATION: History of diabetes. Prior tendon repair. History of ulcer to the right midfoot. CORRELATION made to radiographs from 02/18/2020 FINDINGS: There is diffuse abnormal signal intensity throughout the midfoot. T2 hyperintensity involves the base of the 2nd, 3rd, 4th and 5th metatarsals. There is similar abnormal T2 hyperintensity throughout the navicular and lateral most cuneiform and portions of the middle cuneiform. Surrounding soft tissue T2 hyperintensity is also noted but no drainable fluid collections are appreciated. There is a focus of nonspecific abnormal signal intensity at the base of the 2nd and 3rd metatarsals of uncertain etiology. This is both hypointense on T1 and T2-weighted imaging. This could represent blood products with irregularity of the adjacent osseous structures, nonspecific, but suspicious for fractures. CT of the foot is recommended. There are scattered areas of abnormal signal intensity within the cuboid, calcaneus and talus. Some of these findings could be degenerative and/or reactive in nature. Underlying fracture is less likely but not excluded. This could also be further characterized with CT imaging. On postcontrast imaging, there is enhancement involving all areas of abnormal osseous signal. Although many of these findings could be due to a developing neuropathic joint, given there is an overlying soft tissue irregularity in the region of the base of the 5th metatarsal and adjacent cuboid, focal osteomyelitis is suspected in this region. Correlate with symptoms. IMPRESSION: 1. Diffuse abnormal signal intensity within the osseous structures of the midfoot involving many of the metatarsals as well, some of which felt to represent a developing neuropathic joint degenerative change and/or reactive findings however the more lateral areas of abnormal signal intensity at the base of the 5th metatarsal and adjacent cuboid suspect for osteomyelitis given overlying ulceration. No drainable fluid collections are seen. 2. Nonspecific hypointensity in between the base of the 2nd and 3rd metatarsals, possibly an area of hemorrhagic material. Air is felt to be less likely but not excluded. CT is recommended. 3. Not mentioned above, linear hypointensity within the medial talar dome best seen on sagittal imaging, nonspecific. A small subchondral fracture or developing osteochondral defect not excluded. This could also be further evaluated with CT imaging Dictated by: Dictated on workstation # [id number]
[2020-02-20] MEDS: ENOXAPARIN 40 MG/0.4 ML (LOVENOX) SYR SC SCH (18:24)
[2020-02-20 20:00] VITALS: BP 148/79
[2020-02-20] MEDS: CYCLOBENZAPRINE 10 MG (FLEXERIL) TAB PO SCH (20:29)
[2020-02-20] MEDS: AMITRIPTYLINE 10 MG (ELAVIL) TAB PO SCH (20:30)
[2020-02-20] MEDS: DAKIN'S 1/4 STRENGTH (0.125%) 473 ML BTL TOP SCH (20:30)
[2020-02-21] VITALS: BP 142/67
[2020-02-21] MEDS: CEFEPIME INJECTION 1,000 MG in WATER (STERILE) FOR INJECTION 10 ML IV SCH ×2 (00:02→06:42)
[2020-02-21] MEDS: HYDROcodone/APAP 7.5 MG/325 MG (LORTAB, LORCET PLUS) TABLET PO PRN ×5 (02:28→19:48)
[2020-02-21 04:00] VITALS: BP 127/70
[2020-02-21] MEDS: metroNIDAZOLE 500 MG/100 ML IVPB (PRE-MIX) IV SCH (06:42)
[2020-02-21] MEDS: NS IV 1000 ML 1,000 ML IV SCH ×3 (06:45→20:30)
[2020-02-21 08:00] VITALS: BP 158/88
[2020-02-21] MEDS: metFORMIN XR 500 MG (GLUCOPHAGE XR) TAB PO SCH (08:02)
[2020-02-21] MEDS: PANTOPRAZOLE 40 MG (PROTONIX) TAB PO SCH (08:02)
[2020-02-21] MEDS: ASPIRIN E.C. 81 MG (ECOTRIN) TAB PO SCH (08:02)
[2020-02-21] MEDS: CLOPIDOGREL 75 MG (PLAVIX) TABLET PO SCH (08:03)
[2020-02-21] MEDS: meTOproloL SUCCINATE 50 MG (TOPROL XL) TAB PO SCH (08:03)
[2020-02-21] MEDS: DAKIN'S 1/4 STRENGTH (0.125%) 473 ML BTL TOP SCH ×2 (08:03→20:31)
--- NOTE | 2020-02-21 08:41 | Progress Note ---
Subjective Date Seen by a Provider: Feb 21, 2020 Time Seen by a Provider: 08:35 Subjective/Events-last exam Fwup right foot ulcer with cellulitis, DMII, PAD, HTN. MRI of right foot shows numerous abnormalities and probable osteomyelitis in 5th metatarsal. Focused Exam Lactate Level 02/18/20 16:20: Lactic Acid Level 2.84*H 02/18/20 18:11: Lactic Acid Level 1.13 Objective Exam Vital Signs Date Time Temp Pulse Resp B/P (MAP) Pulse Ox O2 Delivery O2 Flow Rate FiO2 02/21/20 04:00 36.6 81 17 127/70 (89) 96 Room Air 02/21/20 00:00 35.6 76 16 142/67 (92) 100 Room Air 02/20/20 20:09 Room Air 02/20/20 20:00 35.9 82 18 148/79 (102) 98 Room Air 02/20/20 20:00 Room Air 02/20/20 16:00 36.2 88 16 127/73 (91) 97 02/20/20 12:00 36.4 81 18 132/79 (96) 99 Room Air I & O 02/21/20 07:00 Intake Total 1180 ml Output Total 1550 ml Balance -370 ml Capillary Refill : Less Than 3 Seconds General Appearance: No Apparent Distress Extremity: Non Tender, No Calf Tenderness, Pedal Edema (right foot) Neurologic/Psychiatric: Alert, Oriented x3, No Motor/Sensory Deficits Skin: Other (right lateral foot with ulcer over 5th metatarsal head with surrounding erythema/edema) Results Lab Microbiology 02/20/20 Gram Stain, Resulted Pending 02/20/20 Wound Culture - Preliminary, Resulted Staphylococcus aureus 02/18/20 Blood Culture - Preliminary, Resulted No growth Assessment/Plan Assessment/Plan Assess & Plan/Chief Complaint 1. Right Foot Ulcer with Cellulitis--growing out MRSA so will de-escalate abx to Vancomycin, place PICC line for usp abx for osteomyelitis, wound care consulted, may need ortho/podiatry consult for possible Charcot Foot 2. DMII--controlled 3. PAD--on plavix, aspirin 4. HTN--on metoprolol 5. Right Neuropathic Foot--check CT scan of right foot, concerning for Charcot Foot Clinical Quality Measures DVT/VTE Risk/Contraindication: Risk Factor Score Per Nursin RFS Level Per Nursing on Admit: 4+=Very High SYLVIA MARIA DO Feb 21, 2020 08:41
[2020-02-21] MEDS ORDERED: PANTOPRAZOLE 40 MG (PROTONIX) TAB PO SCH (09:00)
--- NOTE | 2020-02-21 09:56 | Physical Therapy Progress Note ---
Therapy Progress Note PT in to assess patient with CAM boot, however, patient was in bed without a dressing right foot and was "picking" at left great toe wound. Med student and PT instructed and educated patient on the negative effect of this act could have on his health, however, patient continued. Patient reports he can put his CAM boot on and ambulates with crutch in room without difficulty. He declined PT. Dr. Shrestha notified. No PT indicated. 1 visit (815) JAIRO DELACRUZ PT Feb 21, 2020 09:56
[2020-02-21] MEDS ORDERED: TROUGH ORDER-PHARMACY XX ONE (10:00)
--- NOTE | 2020-02-21 11:22 | Diagnostic Imaging Report ---
EXAM: CT right foot and ankle without contrast. DATE: February 21, 2020. INDICATION: 59-year-old male, right foot pain and swelling. Ulcer. Evaluation for osteomyelitis. COMPARISON: MRI ankle February 20, 2020. Right foot radiographs February 18, 2020. TECHNIQUE: Contiguous axial CT images at the level of the right ankle and foot were obtained without contrast. Coronal and sagittal reformats were obtained and provided. All CT scans use one or more of the following dose optimizing techniques: automated exposure control, MA and/or KvP adjustment based on a patient size and exam type, or iterative reconstruction. FINDINGS: There are limitations of the exam relating to combined field of view of imaging of the foot and ankle. These exams should be acquired separately. There is also limitation of evaluation given obliquity of reformats. There is a comminuted displaced fracture involving the base of the third metatarsal with intra-articular fracture extension. The intra-articular fracture extension is best seen on series 300 image 28. There is medial to lateral splaying of the articulating surface measuring 3.8 mm and slight proximal to distal offset of approximately 1.7 mm. There is adjacent periosteal reaction. The fourth and fifth metatarsal bases appear medially subluxed relative to their expected articulation with the cuboid. Evaluation is somewhat difficult given the degree of obliquity of reformats. There is no identified cortical or aggressive bone destruction. There is no identified subchondral fracture or osteochondral lesion of the talar dome. There is a contour abnormality of the soft tissues laterally in the region of the fifth metatarsophalangeal joint, likely relating to soft tissue ulcer. Sensitivity for detection of abscess is reduced on CT and given lack of intravenous contrast administration. There is adjacent soft tissue swelling. There is diffuse subcutaneous edema at the level of the ankle and also prominent subcutaneous edema at the level of the foot. IMPRESSION: 1. Comminuted displaced intra-articular fracture of the base of the third metatarsal with mild offset of the articulating surface. There is periosteal reaction present. This is likely a subacute or late acute fracture. 2. The fourth and fifth metatarsal bases appear mildly subluxed relative to their expected articulation with the cuneiform. 3. Limitations of the study relating to significant obliquity of reformats and combined imaging of the foot and ankle. Ideally, separately obtained acquisitions would be performed at the level of the foot and ankle for optimal imaging evaluation. 4. Soft tissue ulcer laterally and volarly located in the region of the fifth metatarsophalangeal joint. 5. No clear cortical or aggressive bone destruction on CT to specifically diagnose osteomyelitis. The previously noted multifocal abnormal marrow signal on MRI including within the cuboid, middle cuneiform, lateral cuneiform, and second through fifth metatarsal bases as well as the talus, calcaneus, and distal tibia are nonspecific. The edema in the third metatarsal most likely relates to the adjacent fracture. Additional marrow edema is perhaps most likely stress related. There is no bone erosion or large joint effusion to specifically suggest Charcot arthropathy or crystalline arthropathy. Osteomyelitis is difficult to completely exclude although there is no evidence for a definitive diagnosis of osteomyelitis. Dictated by: Dictated on workstation # [id number]
--- NOTE | 2020-02-21 12:21 | NUR ---
PTD VANCOMYCIN LABS: SCR 0.83 VANCOMYCIN TROUGH @0903 19.5 PLAN: CONTINUE WITH VANCOMYCIN 1GRAM IV Q12H TODAY, AND SWITCH TO VANCOMYCIN 2GRAMS IV DAILY ON 02/21 @ 0900, PHARMACY WILL CHECK A TROUGH IN A FEW DAYS TO EVALUATE CLEARANCE. CHANGED TO DAILY DOSING IN ANTICIPATION OF OUTPATIENT THERAPY/NEED FOR LONG DURATION.
--- NOTE | 2020-02-21 12:46 | Diagnostic Imaging Report ---
INDICATION: PICC line placement. COMPARISON: January 19, 2018. TECHNIQUE: Single radiograph of the chest dated February 21, 2020. FINDINGS: Right-sided PICC line is in place with the distal tip overlying the expected location of the cavoatrial junction. No pneumothorax. The cardiac silhouette is within normal limits in size. No significant pulmonary vascular congestion. The lungs are clear. No pleural effusion. No acute osseous abnormality. IMPRESSION: Right-sided PICC line is present with the distal tip overlying the cavoatrial junction without pneumothorax. No acute cardiopulmonary abnormality. Dictated by: Dictated on workstation # [id number]
[2020-02-21] MEDS: VANCOMYCIN 1 GM/NS 250 ML IVPB IV SCH ×2 (15:27)
[2020-02-21] MEDS ORDERED: VANCOMYCIN 1 GM/NS 250 ML IVPB IV NR ×2 (15:30)
[2020-02-21 16:32] VITALS: BP 124/60
[2020-02-21] MEDS ORDERED: VANC2VIA IV (18:09)
[2020-02-21] MEDS ORDERED: HYDR-34 PO (18:09)
[2020-02-21] MEDS: ENOXAPARIN 40 MG/0.4 ML (LOVENOX) SYR SC SCH (20:29)
[2020-02-21] MEDS: AMITRIPTYLINE 10 MG (ELAVIL) TAB PO SCH (20:30)
[2020-02-21] MEDS: CYCLOBENZAPRINE 10 MG (FLEXERIL) TAB PO SCH (20:30)
[2020-02-22] MEDS: HYDROcodone/APAP 7.5 MG/325 MG (LORTAB, LORCET PLUS) TABLET PO PRN ×3 (00:03→12:42)
[2020-02-22 00:17] VITALS: BP 142/69
[2020-02-22] MEDS: NS IV 1000 ML 1,000 ML IV SCH ×2 (03:12→08:23)
[2020-02-22 04:29] LABS: BASOPHILS % (AUTO) 1 % (0-10); EOSINOPHILS # (AUTO) 0.2 10^3/uL (0.0-0.3); EOSINOPHILS % (AUTO) 5 % (0-10); HEMATOCRIT 35 % (40-54); HEMOGLOBIN 11.1 g/dL (13.3-17.7); LYMPHOCYTES # (AUTO) 1.9 10^3/uL (1.0-4.0); LYMPHOCYTES % (AUTO) 37 % (12-44); MEAN CORPUSCULAR HEMOGLOBIN 27 pg (25-34); MEAN CORPUSCULAR HGB CONC 32 g/dL (32-36); MEAN CORPUSCULAR VOLUME 85 fL (80-99); MEAN PLATELET VOLUME 10.1 fL (9.0-12.2); MONOCYTES # (AUTO) 0.4 10^3/uL (0.0-1.0); MONOCYTES % (AUTO) 7 % (0-12); NEUTROPHILS # (AUTO) 2.7 10^3/uL (1.8-7.8); NEUTROPHILS % (AUTO) 50 % (42-75); PLATELET COUNT 248 10^3/uL (130-400); WHITE BLOOD COUNT 5.3 10^3/uL (4.3-11.0)
[2020-02-22 04:42] LABS: CHLORIDE 108 MMOL/L (98-107); POTASSIUM 4.2 MMOL/L (3.6-5.0); SODIUM 141 MMOL/L (135-145)
[2020-02-22 04:43] LABS: CALCIUM 8.9 MG/DL (8.5-10.1); GLUCOSE 117 MG/DL (70-105)
[2020-02-22 04:45] LABS: CARBON DIOXIDE 25 MMOL/L (21-32)
[2020-02-22 04:47] LABS: CREATININE SERUM 0.84 MG/DL (0.60-1.30); GFR ESTIMATED > 60
[2020-02-22 04:48] LABS: BUN/CREATININE RATIO 11
[2020-02-22 08:00] VITALS: BP 115/55
[2020-02-22] MEDS: metFORMIN XR 500 MG (GLUCOPHAGE XR) TAB PO SCH (08:22)
[2020-02-22] MEDS: meTOproloL SUCCINATE 50 MG (TOPROL XL) TAB PO SCH (08:22)
[2020-02-22] MEDS: CLOPIDOGREL 75 MG (PLAVIX) TABLET PO SCH (08:23)
[2020-02-22] MEDS: PANTOPRAZOLE 40 MG (PROTONIX) TAB PO SCH (08:23)
[2020-02-22] MEDS: ASPIRIN E.C. 81 MG (ECOTRIN) TAB PO SCH (08:23)
[2020-02-22] MEDS: DAKIN'S 1/4 STRENGTH (0.125%) 473 ML BTL TOP SCH (08:25)
--- NOTE | 2020-02-22 08:40 | D/C HH Face to Face Order ---
D/C Face to Face Orders Reconcile Patient Problems Problems Reviewed?: Yes Instructions for Patient Via [facility] [employer], Patient Instructions/FollowUp: Fwup with Dr. Casillas and Dr. Morel as scheduled on 03/06/[address] Shrestha and Dr. Morris in 2 weeks Physician to follow Patient: Henrietta Discharge Diet for Home: ADA Diet, Low Sodium Diet Patient Data-Allergies,Ht & Wt Patient Allergies: Coded Allergies: Penicillins (Verified Allergy, Mild, 11/10/18) cefaclor (Verified Allergy, Mild, 11/10/18) Height (Feet): 6 Height (Inches): 4.00 Weight (Pounds): 180 Weight (Ounces): 0.0 Home Health Need/Face to Face Date of Face to Face: Feb 22, 2020 Clinical Findings: Non or partial weight bearing, Wound infection, Non-healing wound I have seen Pt [id number]: Yes Discharged To: Home Diagnosis/Conditions: Right Diabetic Foot Ulcer with Osteomyelitis and Right Foot Fracture Patient is Homebound due to: Non-weight bearing Homebound Status Due to the above stated illness, injury or surgical procedure (medical condition or diagnosis) and associated clinical findings, the patient is homebound because of his/her inability to leave home except with aid of a supportive device and/or person AND leaving the home requires a considerable and taxing effort or is medically contraindicated. Pt req the following assistanc: [facility] Nursing Orders Home Health Services Order: Nursing Services, Physical Therapy-Evaluate & Treat, Wound Care-Eval/Treat Home Health Infusion Therapy Line Start Date: Feb 21, 2020 Certify Stmt I certify that this patient is under my care and that I, a nurse practitioner or a physician; a telecom assistant working with me, had a face to face encounter that - meets the physician face to face encounter requirements with this patient as dated. SYLVIA SHRESTHA DO Feb 22, 2020 08:40
--- NOTE | 2020-02-22 08:42 | Progress Note ---
Subjective Subjective Date Seen by Provider: Feb 22, 2020 Time Seen by Provider: 07:45 Maico has had a PICC successfully placed yesterday. CT showed fracture of right 3rd MT at the base extending intra-articularly. He complains of some pain in the right foot as well as bruising on his penis. Had increased frequency of BMs yesterday, says this is dietary. The patient denies other complaints today including fever, chills, abdominal pain, new leg pain, new rashes. Sleeping and eating well. Review of Systems General: No Chills HEENT: No Head Aches Pulmonary: No Dyspnea Cardiovascular: No: Chest Pain Gastrointestinal: No: Abdominal Pain All Other Systems Reviewed All Other Systems Reviewed: Yes Objective Exam Vital Signs Vital Signs - First Documented 02/18/20 02/18/20 02/18/20 15:45 18:13 20:08 Temp 36.6 Pulse 104 Resp 20 B/P (MAP) 140/90 (107) Pulse Ox 100 O2 Delivery Room Air O2 Flow Rate 100.00 FiO2 21 Capillary Refill : Less Than 3 Seconds General Appearance: No Apparent Distress Eyes: Bilateral Eye Normal Inspection HEENT: Moist Mucous Membranes Neck: Full Range of Motion, Normal Inspection Respiratory: Lungs Clear Cardiovascular: Regular Rate, Rhythm Gastrointestinal: Non Tender, Soft Back: Normal Inspection Extremity: No Calf Tenderness, Pedal Edema (right foot), Other (right foot bandaged. Popliteal pulse palpable. 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.) Neurologic/Psychiatric: Alert, Oriented x3, No Motor/Sensory Deficits Skin: Normal Color, Warm/Dry, Other (right lateral foot with ulcer over 5th metatarsal head with surrounding erythema/edema) Results Lab Laboratory Tests 02/21/20 09:03: C-Reactive Protein High Sensitivity 3.01H, Vancomycin Level Trough 19.5 02/22/20 04:00: White Blood Count 5.3, Red Blood Count 4.09L, Hemoglobin 11.1L, Hematocrit 35L, Mean Corpuscular Volume 85, Mean Corpuscular Hemoglobin 27, Mean Corpuscular Hemoglobin Concent 32, Red Cell Distribution Width 14.6H, Platelet Count 248, Mean Platelet Volume 10.1, Immature Granulocyte % (Auto) 0, Neutrophils (%) (Auto) 50, Lymphocytes (%) (Auto) 37, Monocytes (%) (Auto) 7, Eosinophils (%) (Auto) 5, Basophils (%) (Auto) 1, Neutrophils # (Auto) 2.7, Lymphocytes # (Auto) 1.9, Monocytes # (Auto) 0.4, Eosinophils # (Auto) 0.2, Basophils # (Auto) 0.0, Immature Granulocyte # (Auto) 0.0, Sodium Level 141, Potassium Level 4.2, Chlor negrita Level 108H, Carbon Dioxide Level 25, Anion Gap 8, Blood Urea Nitrogen 9, Creatinine 0.84, Estimat Glomerular Filtration Rate > 60, BUN/Creatinine Ratio 11, Glucose Level 117H, Calcium Level 8.9 Microbiology 02/20/20 Gram Stain - Final, Resulted 02/20/20 Wound Culture - Preliminary, Resulted Staphylococcus aureus 02/18/20 Blood Culture - Preliminary, Resulted No growth Assessment/Plan Assessment/Plan Problems: (1) Diabetic foot ulcer Qualifiers: Qualified Codes: E11.621 - Type 2 diabetes mellitus with foot ulcer; L97.512 - Non-pressure chronic ulcer of other part of right foot with fat layer exposed (2) Cellulitis Qualifiers: Qualified Codes: L03.115 - Cellulitis of right lower limb (3) Diabetes Clinical Quality Measures DVT/VTE Risk/Contraindication: Risk Factor Score Per Nursin RFS Level Per Nursing on Admit: 4+=Very High TOMMY BATEMAN MED STUDENT Feb 22, 2020 08:42
[2020-02-22] MEDS ORDERED: VANCOMYCIN 2000 MG/NS 500 ML IVPB IV SCH ×2 (14:00)
[2020-02-22 14:37] VITALS: BP 115/55
--- NOTE | 2020-02-22 15:02 | NUR ---
WILLIAM AVILA demonstrates understanding of discharge instructions and accurately returns instructions upon questioning. Copy of Post-Discharge Instructions and Medication Discharge Instructions given to patient. WILLIAM AVILA is able to manage continuing needs after discharge. Patients belongings returned to patient. Patient discharged from [facility]- on 02/22/20 at 1505. WILLIAM AVILA left floor via wheelchair, accompanied by staff.
--- NOTE | 2020-02-22 15:36 | NUR ---
CM/SS finalized discharge. Plan: The patient will discharge with home health and IV antibiotics. The patient will be transported home by his Daughter. Home Health: CM/SS provided the patient with a patient preference form. He chose [facility]. CM/SS contacted [facility] and made the referral. At the time of this discussion, the plan was for the patient to do outpatient antibiotics. However, home health, reports they cannot accept patient if using outpatient services. CM/SS contacted outpatient wound care. They cannot see the patient until the . CM/SS contacted [facility] to inform them that the patient will discharge with home health and have IV antibiotics delivered. IV Antibiotics: CM/SS was informed from SS referral and patient that outpatient antibiotics is the preferred plan but due to not having outpatient wound care and needing home health, using [facility] was the best option. CM/SS contacted [facility] and spoke with Fatuma to make a referral. CM/SS faxed needed documents and script. [facility] reports that they will be able to accept patient and have the IV medications here tonight. The set time for administration is 1400 daily. Fatuma provided the cost and insurance coverage. CM/SS explained the cost/coverage and process of the IV antibiotics to the patient. He verbalized understanding. CM/SS informed him that home health with reach out via cell phone and they plan to start care tomorrow and teach the patient how to do IV antibiotic at home. He verbalized understanding. No further needs.
== END 2020-02-22 15:04 | disposition home health service (06) | DRG 638 ==
LOC: EDUNIT# 15:21 → ER 15:23 → 4TH 17:29
PROVIDERS: ADMIT Family Medicine; ATTEND Family Medicine
DX: E11.69 Type 2 diabetes mellitus with other specified complication (principal); M86.9 Osteomyelitis, unspecified; L03.115 Cellulitis of right lower limb; E11.621 Type 2 diabetes mellitus with foot ulcer; E11.40 Type 2 diabetes mellitus with diabetic neuropathy, unspecified; L97.519 Non-pressure chronic ulcer of other part of right foot with unspecified severity; Z79.84 Long term (current) use of oral hypoglycemic drugs; B95.62 Methicillin resistant Staphylococcus aureus infection as the cause of diseases classified elsewhere; M21.371 Foot drop, right foot; M21.171 Varus deformity, not elsewhere classified, right ankle; S92.331A Displaced fracture of third metatarsal bone, right foot, initial encounter for closed fracture; I73.9 Peripheral vascular disease, unspecified; I10 Essential (primary) hypertension; Z88.1 Allergy status to other antibiotic agents; Z88.0 Allergy status to penicillin; Z79.02 Long term (current) use of antithrombotics/antiplatelets; Z79.82 Long term (current) use of aspirin; Z87.891 Personal history of nicotine dependence; Z89.021 Acquired absence of right finger(s); Z95.820 Peripheral vascular angioplasty status with implants and grafts; Z95.1 Presence of aortocoronary bypass graft; Z86.718 Personal history of other venous thrombosis and embolism; Z91.5 Personal history of self-harm; X58.XXXA Exposure to other specified factors, initial encounter
CPT/HCPCS: 36415; 36569; 71045; 73620; 73700; 73720; 76937; 80048; 80202; 82962; 83605; 85025; 85652; 86141; 87040; 87070; 87077; 87186; 87205; 94760

== ENCOUNTER → 2020-02-27 | Outpatient (CLI) | payer BC ==
[~2020-02-27] MED LIST changes: +AMIO200T6 PO; +AMIT10TA6 PO; +CILO50TA PO; +HYDR-34 PO; +PANT40TA52 PO; +VANC2VIA IV
[2020-02-27 14:48] LABS: HEMOGLOBIN 12.4 g/dL (13.3-17.7); MEAN PLATELET VOLUME 10.9 fL (9.0-12.2); WHITE BLOOD COUNT 9.7 10^3/uL (4.3-11.0)
[2020-02-27 15:06] LABS: BUN/CREATININE RATIO 11; CARBON DIOXIDE 24 MMOL/L (21-32); CHLORIDE 105 MMOL/L (98-107); GFR ESTIMATED > 60; GLUCOSE 120 MG/DL (70-105); POTASSIUM 4.3 MMOL/L (3.6-5.0); SODIUM 138 MMOL/L (135-145)
[2020-02-27 15:10] LABS: VANCOMYCIN,TROUGH < 0.4 UG/ML (10.0-20.0)
== END ==
LOC: LABNPT 14:41
PROVIDERS: ATTEND Family Medicine
DX: Z01.89 Encounter for other specified special examinations (principal)
CPT/HCPCS: 80048; 80202; 85027

== ENCOUNTER → 2020-03-01 | Outpatient (CLI) | payer BC | LOC: LABNPT 14:28 | PROVIDERS: ATTEND Family Medicine | DX: Z01.89 Encounter for other specified special examinations (principal) | CPT/HCPCS: 80202 ==

== ENCOUNTER → 2020-03-06 | Outpatient (CLI) | payer BC | LOC: WOUNDCARE 12:38 | PROVIDERS: ATTEND Surgery | DX: E11.621 Type 2 diabetes mellitus with foot ulcer (principal); E11.42 Type 2 diabetes mellitus with diabetic polyneuropathy; L97.413 Non-pressure chronic ulcer of right heel and midfoot with necrosis of muscle; M14.671 Charcot's joint, right ankle and foot; M86.471 Chronic osteomyelitis with draining sinus, right ankle and foot; I70.234 Atherosclerosis of native arteries of right leg with ulceration of heel and midfoot; L97.522 Non-pressure chronic ulcer of other part of left foot with fat layer exposed; I70.245 Atherosclerosis of native arteries of left leg with ulceration of other part of foot | CPT/HCPCS: 11042; 11043; A6197; G0463 ==

== ENCOUNTER → 2020-03-12 | Outpatient (CLI) | payer BC | LOC: WOUNDCARE 11:56 | PROVIDERS: ATTEND Orthopaedic Surgery Hand Surgery | DX: E11.621 Type 2 diabetes mellitus with foot ulcer (principal); E11.42 Type 2 diabetes mellitus with diabetic polyneuropathy; I96 Gangrene, not elsewhere classified; L97.413 Non-pressure chronic ulcer of right heel and midfoot with necrosis of muscle; L97.522 Non-pressure chronic ulcer of other part of left foot with fat layer exposed; M14.671 Charcot's joint, right ankle and foot; M86.471 Chronic osteomyelitis with draining sinus, right ankle and foot; I70.234 Atherosclerosis of native arteries of right leg with ulceration of heel and midfoot; I70.245 Atherosclerosis of native arteries of left leg with ulceration of other part of foot | CPT/HCPCS: 11042; G0463 ==

== ENCOUNTER → 2020-03-12 | Outpatient (CLI) | payer BC ==
[2020-03-12 16:19] LABS: BASOPHILS # (AUTO) 0.1 10^3/uL (0.0-0.1); BASOPHILS % (AUTO) 1 % (0-10); EOSINOPHILS # (AUTO) 0.4 10^3/uL (0.0-0.3); EOSINOPHILS % (AUTO) 4 % (0-10); HEMATOCRIT 39 % (40-54); HEMOGLOBIN 12.7 g/dL (13.3-17.7); LYMPHOCYTES # (AUTO) 2.1 10^3/uL (1.0-4.0); LYMPHOCYTES % (AUTO) 20 % (12-44); MEAN CORPUSCULAR HEMOGLOBIN 28 pg (25-34); MEAN CORPUSCULAR HGB CONC 33 g/dL (32-36); MEAN CORPUSCULAR VOLUME 87 fL (80-99); MEAN PLATELET VOLUME 10.1 fL (9.0-12.2); MONOCYTES # (AUTO) 0.7 10^3/uL (0.0-1.0); MONOCYTES % (AUTO) 7 % (0-12); NEUTROPHILS # (AUTO) 7.2 10^3/uL (1.8-7.8); NEUTROPHILS % (AUTO) 69 % (42-75); PLATELET COUNT 230 10^3/uL (130-400); WHITE BLOOD COUNT 10.4 10^3/uL (4.3-11.0)
[2020-03-12 16:28] LABS: CHLORIDE 100 MMOL/L (98-107); POTASSIUM 4.7 MMOL/L (3.6-5.0); SODIUM 136 MMOL/L (135-145)
[2020-03-12 16:29] LABS: GLUCOSE 86 MG/DL (70-105)
[2020-03-12 16:31] LABS: CARBON DIOXIDE 27 MMOL/L (21-32)
[2020-03-12 16:33] LABS: CREATININE SERUM 0.93 MG/DL (0.60-1.30); GFR ESTIMATED > 60
[2020-03-12 16:34] LABS: BUN/CREATININE RATIO 13
[2020-03-12 16:43] LABS: VANCOMYCIN,TROUGH 12.1 UG/ML (10.0-20.0)
== END ==
LOC: CVS 16:13
PROVIDERS: ATTEND Family Medicine
DX: Z01.89 Encounter for other specified special examinations (principal)
CPT/HCPCS: 80048; 80202; 85025

== ENCOUNTER → 2020-03-19 | Outpatient (CLI) | payer BC ==
[2020-03-19 15:31] LABS: BASOPHILS % (AUTO) 0 % (0-10); EOSINOPHILS # (AUTO) 0.3 10^3/uL (0.0-0.3); EOSINOPHILS % (AUTO) 5 % (0-10); HEMATOCRIT 41 % (40-54); HEMOGLOBIN 13.1 g/dL (13.3-17.7); LYMPHOCYTES # (AUTO) 1.5 10^3/uL (1.0-4.0); LYMPHOCYTES % (AUTO) 22 % (12-44); MEAN CORPUSCULAR HEMOGLOBIN 28 pg (25-34); MEAN CORPUSCULAR HGB CONC 32 g/dL (32-36); MEAN CORPUSCULAR VOLUME 86 fL (80-99); MEAN PLATELET VOLUME 9.5 fL (9.0-12.2); MONOCYTES # (AUTO) 0.4 10^3/uL (0.0-1.0); MONOCYTES % (AUTO) 5 % (0-12); NEUTROPHILS # (AUTO) 4.7 10^3/uL (1.8-7.8); NEUTROPHILS % (AUTO) 68 % (42-75); PLATELET COUNT 225 10^3/uL (130-400)
[2020-03-19 15:46] LABS: CHLORIDE 106 MMOL/L (98-107); POTASSIUM 4.2 MMOL/L (3.6-5.0); SODIUM 142 MMOL/L (135-145)
[2020-03-19 15:47] LABS: CALCIUM 9.6 MG/DL (8.5-10.1); GLUCOSE 93 MG/DL (70-105)
[2020-03-19 15:49] LABS: CARBON DIOXIDE 25 MMOL/L (21-32)
[2020-03-19 15:51] LABS: CREATININE SERUM 0.85 MG/DL (0.60-1.30); GFR ESTIMATED > 60
[2020-03-19 15:52] LABS: BUN/CREATININE RATIO 8
[2020-03-19 16:00] LABS: VANCOMYCIN,TROUGH 15.2 UG/ML (10.0-20.0)
== END ==
LOC: LAB 14:45
PROVIDERS: ATTEND Urology
DX: E11.610 Type 2 diabetes mellitus with diabetic neuropathic arthropathy (principal)
CPT/HCPCS: 36415; 80048; 80202; 83036; 85025

== ENCOUNTER → 2020-03-19 | Outpatient (CLI) | payer BC | LOC: WOUNDCARE 10:43 | PROVIDERS: ATTEND Surgery | DX: E11.621 Type 2 diabetes mellitus with foot ulcer (principal); E11.42 Type 2 diabetes mellitus with diabetic polyneuropathy; L97.412 Non-pressure chronic ulcer of right heel and midfoot with fat layer exposed; M14.671 Charcot's joint, right ankle and foot; M86.471 Chronic osteomyelitis with draining sinus, right ankle and foot; I70.234 Atherosclerosis of native arteries of right leg with ulceration of heel and midfoot; L97.522 Non-pressure chronic ulcer of other part of left foot with fat layer exposed; I70.245 Atherosclerosis of native arteries of left leg with ulceration of other part of foot; E11.52 Type 2 diabetes mellitus with diabetic peripheral angiopathy with gangrene | CPT/HCPCS: 11042 ==

== ENCOUNTER → 2020-03-26 | Outpatient (CLI) | payer BC | LOC: WOUNDCARE 10:55 | PROVIDERS: ATTEND Surgery | DX: E11.621 Type 2 diabetes mellitus with foot ulcer (principal); E11.52 Type 2 diabetes mellitus with diabetic peripheral angiopathy with gangrene; E11.42 Type 2 diabetes mellitus with diabetic polyneuropathy; I70.261 Atherosclerosis of native arteries of extremities with gangrene, right leg; E11.610 Type 2 diabetes mellitus with diabetic neuropathic arthropathy; M86.471 Chronic osteomyelitis with draining sinus, right ankle and foot; L97.412 Non-pressure chronic ulcer of right heel and midfoot with fat layer exposed; L97.522 Non-pressure chronic ulcer of other part of left foot with fat layer exposed; L97.311 Non-pressure chronic ulcer of right ankle limited to breakdown of skin | CPT/HCPCS: 11042; G0463 ==

== ENCOUNTER → 2020-03-26 | Outpatient (CLI) | payer BC ==
[2020-03-26 15:20] LABS: BASOPHILS % (AUTO) 0 % (0-10); EOSINOPHILS # (AUTO) 0.3 10^3/uL (0.0-0.3); EOSINOPHILS % (AUTO) 8 % (0-10); HEMATOCRIT 39 % (40-54); HEMOGLOBIN 12.6 g/dL (13.3-17.7); LYMPHOCYTES # (AUTO) 1.5 10^3/uL (1.0-4.0); LYMPHOCYTES % (AUTO) 34 % (12-44); MEAN CORPUSCULAR HEMOGLOBIN 28 pg (25-34); MEAN CORPUSCULAR HGB CONC 32 g/dL (32-36); MEAN CORPUSCULAR VOLUME 87 fL (80-99); MEAN PLATELET VOLUME 10.7 fL (9.0-12.2); MONOCYTES # (AUTO) 0.3 10^3/uL (0.0-1.0); MONOCYTES % (AUTO) 7 % (0-12); NEUTROPHILS # (AUTO) 2.2 10^3/uL (1.8-7.8); NEUTROPHILS % (AUTO) 51 % (42-75); PLATELET COUNT 217 10^3/uL (130-400); WHITE BLOOD COUNT 4.4 10^3/uL (4.3-11.0)
[2020-03-26 15:29] LABS: CHLORIDE 105 MMOL/L (98-107); POTASSIUM 4.1 MMOL/L (3.6-5.0); SODIUM 142 MMOL/L (135-145)
[2020-03-26 15:30] LABS: CALCIUM 9.2 MG/DL (8.5-10.1)
[2020-03-26 15:31] LABS: GLUCOSE 142 MG/DL (70-105)
[2020-03-26 15:32] LABS: CARBON DIOXIDE 26 MMOL/L (21-32)
[2020-03-26 15:35] LABS: CREATININE SERUM 0.97 MG/DL (0.60-1.30); GFR ESTIMATED > 60
[2020-03-26 15:36] LABS: BUN/CREATININE RATIO 6
[2020-03-26 15:51] LABS: ERYTHROCYTE SEDIMENTATION RATE 30 MM/HR (0-30)
[2020-03-26 16:14] LABS: VANCOMYCIN,TROUGH 49.5 UG/ML (10.0-20.0)
== END ==
LOC: LABNPT 15:12
PROVIDERS: ATTEND Family Medicine
DX: Z01.89 Encounter for other specified special examinations (principal)
CPT/HCPCS: 80048; 80202; 85025; 85652; 86141

== ENCOUNTER → 2020-03-28 | Outpatient (CLI) | payer BC | LOC: LABNPT 13:15 | PROVIDERS: ATTEND Family Medicine | DX: L03.115 Cellulitis of right lower limb (principal); L97.512 Non-pressure chronic ulcer of other part of right foot with fat layer exposed; E11.621 Type 2 diabetes mellitus with foot ulcer | CPT/HCPCS: 80202 ==

== ENCOUNTER → 2020-04-02 | Outpatient (CLI) | payer BC ==
[~2020-04-02] MED LIST changes: -CIPR500T4 PO; +CIPR500T5 PO; -OXYC-471; +OXYC1TAB11
[2020-04-02 12:35] LABS: BASOPHILS % (AUTO) 0 % (0-10); EOSINOPHILS # (AUTO) 0.3 10^3/uL (0.0-0.3); EOSINOPHILS % (AUTO) 5 % (0-10); HEMATOCRIT 39 % (40-54); HEMOGLOBIN 13.1 g/dL (13.3-17.7); LYMPHOCYTES # (AUTO) 1.5 10^3/uL (1.0-4.0); LYMPHOCYTES % (AUTO) 21 % (12-44); MEAN CORPUSCULAR HEMOGLOBIN 28 pg (25-34); MEAN CORPUSCULAR HGB CONC 33 g/dL (32-36); MEAN CORPUSCULAR VOLUME 84 fL (80-99); MEAN PLATELET VOLUME 9.4 fL (9.0-12.2); MONOCYTES # (AUTO) 0.5 10^3/uL (0.0-1.0); MONOCYTES % (AUTO) 7 % (0-12); NEUTROPHILS # (AUTO) 4.7 10^3/uL (1.8-7.8); NEUTROPHILS % (AUTO) 67 % (42-75); PLATELET COUNT 207 10^3/uL (130-400); WHITE BLOOD COUNT 7.1 10^3/uL (4.3-11.0)
[2020-04-02 12:59] LABS: BUN/CREATININE RATIO 13; CALCIUM 9.6 MG/DL (8.5-10.1); CARBON DIOXIDE 19 MMOL/L (21-32); CHLORIDE 106 MMOL/L (98-107); CREATININE SERUM 0.98 MG/DL (0.60-1.30); GFR ESTIMATED > 60; GLUCOSE 102 MG/DL (70-105); POTASSIUM 4.5 MMOL/L (3.6-5.0); SODIUM 138 MMOL/L (135-145)
[2020-04-02 13:07] LABS: VANCOMYCIN,TROUGH 17.4 UG/ML (10.0-20.0)
== END ==
LOC: LAB 12:15
PROVIDERS: ATTEND Family Medicine
DX: M86.171 Other acute osteomyelitis, right ankle and foot (principal); Z16.21 Resistance to vancomycin
CPT/HCPCS: 36415; 80048; 80202; 85025

== ENCOUNTER → 2020-04-04 | Outpatient (CLI) | payer BC | LOC: WOUNDCARE 09:01 | PROVIDERS: ATTEND Orthopaedic Surgery Hand Surgery | DX: E11.621 Type 2 diabetes mellitus with foot ulcer (principal); I96 Gangrene, not elsewhere classified; E11.42 Type 2 diabetes mellitus with diabetic polyneuropathy; L97.412 Non-pressure chronic ulcer of right heel and midfoot with fat layer exposed; M14.671 Charcot's joint, right ankle and foot; M86.471 Chronic osteomyelitis with draining sinus, right ankle and foot; I70.234 Atherosclerosis of native arteries of right leg with ulceration of heel and midfoot; L97.522 Non-pressure chronic ulcer of other part of left foot with fat layer exposed; L97.311 Non-pressure chronic ulcer of right ankle limited to breakdown of skin | CPT/HCPCS: 11042; A6207; A6234; G0463 ==

== ENCOUNTER → 2020-04-05 | Outpatient (CLI) | payer BC ==
--- NOTE | 2020-04-05 16:39 | Diagnostic Imaging Report ---
INDICATION: Nonhealing ulcer of the great toe. FINDINGS: There is some bony erosion along the tip of the distal phalanx of the 1st toe. The interphalangeal joint appears moderately degenerated without bony erosion. The MP joint is normal. There is a small linear metallic density in the soft tissues just below the interphalangeal joint of the great toe which appears to represent tip of a needle. Moderate degenerative changes noted throughout the remaining interphalangeal joint. IMPRESSION: 1. Bony reabsorption along the tuft of the great toe is suggestive of osteomyelitis with open ulcer. 2. Small subcutaneous metallic foreign body along the plantar surface of the foot near the 1st MP joint probably representing a portion of a sewing needle. Dictated by: Dictated on workstation # [id number]
== END ==
LOC: RAD 15:30
PROVIDERS: ATTEND Orthopaedic Surgery Hand Surgery
DX: E11.621 Type 2 diabetes mellitus with foot ulcer (principal); L97.522 Non-pressure chronic ulcer of other part of left foot with fat layer exposed; E11.42 Type 2 diabetes mellitus with diabetic polyneuropathy; L97.412 Non-pressure chronic ulcer of right heel and midfoot with fat layer exposed; M14.671 Charcot's joint, right ankle and foot; M86.471 Chronic osteomyelitis with draining sinus, right ankle and foot; I70.234 Atherosclerosis of native arteries of right leg with ulceration of heel and midfoot; L97.311 Non-pressure chronic ulcer of right ankle limited to breakdown of skin
CPT/HCPCS: 73660

== ENCOUNTER → 2020-04-06 | Outpatient (CLI) | payer BC | LOC: WOUNDCARE 10:30 | PROVIDERS: ATTEND Orthopaedic Surgery Hand Surgery | DX: E11.621 Type 2 diabetes mellitus with foot ulcer (principal); E11.42 Type 2 diabetes mellitus with diabetic polyneuropathy; L97.412 Non-pressure chronic ulcer of right heel and midfoot with fat layer exposed; M14.671 Charcot's joint, right ankle and foot; M86.471 Chronic osteomyelitis with draining sinus, right ankle and foot; I70.234 Atherosclerosis of native arteries of right leg with ulceration of heel and midfoot; L97.522 Non-pressure chronic ulcer of other part of left foot with fat layer exposed; L97.311 Non-pressure chronic ulcer of right ankle limited to breakdown of skin | CPT/HCPCS: 29445; A6253; G0463 ==

== ENCOUNTER → 2020-04-09 | Outpatient (CLI) | payer BC | LOC: WOUNDCARE 10:43 | PROVIDERS: ATTEND Surgery | DX: E11.621 Type 2 diabetes mellitus with foot ulcer (principal); I96 Gangrene, not elsewhere classified; E11.42 Type 2 diabetes mellitus with diabetic polyneuropathy; S90.852A Superficial foreign body, left foot, initial encounter; L97.412 Non-pressure chronic ulcer of right heel and midfoot with fat layer exposed; M14.671 Charcot's joint, right ankle and foot; M86.471 Chronic osteomyelitis with draining sinus, right ankle and foot; I70.234 Atherosclerosis of native arteries of right leg with ulceration of heel and midfoot; L97.522 Non-pressure chronic ulcer of other part of left foot with fat layer exposed; L97.311 Non-pressure chronic ulcer of right ankle limited to breakdown of skin; M86.472 Chronic osteomyelitis with draining sinus, left ankle and foot | CPT/HCPCS: 11042; A6253; G0463 ==

== ENCOUNTER → 2020-04-16 | Outpatient (CLI) | payer BC | LOC: WOUNDCARE 12:18 | PROVIDERS: ATTEND Surgery | DX: E11.621 Type 2 diabetes mellitus with foot ulcer (principal); E11.42 Type 2 diabetes mellitus with diabetic polyneuropathy; L97.422 Non-pressure chronic ulcer of left heel and midfoot with fat layer exposed; M14.671 Charcot's joint, right ankle and foot; M86.471 Chronic osteomyelitis with draining sinus, right ankle and foot; I70.234 Atherosclerosis of native arteries of right leg with ulceration of heel and midfoot; L97.522 Non-pressure chronic ulcer of other part of left foot with fat layer exposed; L97.321 Non-pressure chronic ulcer of left ankle limited to breakdown of skin; M86.472 Chronic osteomyelitis with draining sinus, left ankle and foot; S90.852A Superficial foreign body, left foot, initial encounter; E11.52 Type 2 diabetes mellitus with diabetic peripheral angiopathy with gangrene; X58.XXXA Exposure to other specified factors, initial encounter | CPT/HCPCS: 11042; A6197; G0463 ==

== ENCOUNTER → 2020-04-23 | Outpatient (CLI) | payer BC ==
[~2020-04-23] MED LIST changes: -AMIT10TA6 PO; +AMT10T PO
== END ==
LOC: WOUNDCARE 10:45
PROVIDERS: ATTEND Surgery
DX: E11.621 Type 2 diabetes mellitus with foot ulcer (principal); E11.42 Type 2 diabetes mellitus with diabetic polyneuropathy; I96 Gangrene, not elsewhere classified; S90.852A Superficial foreign body, left foot, initial encounter; L97.412 Non-pressure chronic ulcer of right heel and midfoot with fat layer exposed; M14.671 Charcot's joint, right ankle and foot; M86.471 Chronic osteomyelitis with draining sinus, right ankle and foot; I70.234 Atherosclerosis of native arteries of right leg with ulceration of heel and midfoot; L97.512 Non-pressure chronic ulcer of other part of right foot with fat layer exposed; L97.311 Non-pressure chronic ulcer of right ankle limited to breakdown of skin; M86.472 Chronic osteomyelitis with draining sinus, left ankle and foot
CPT/HCPCS: 11042; G0463

== ENCOUNTER 2020-04-30 17:09 | Emergency (ER) | payer BC ==
[~2020-04-30] VITALS: Ht 193 cm; Wt 81.6 kg
--- NOTE | 2020-04-30 17:33 | ED Lower Extremity ---
General Chief Complaint: Lower Extremity Stated Complaint: R LEG PAIN Source: patient Exam Limitations: no limitations History of Present Illness Date Seen by Provider: Apr 30, 2020 Time Seen by Provider: 17:30 Initial Comments Patient is a 59-year-old male who presents to the emergency department today with a chief complaint of pain in his right foot secondary to a diabetic foot ulcer. Patient also has a diabetic foot ulcer at the apex of his left great toe. Patient states these have been under the treatment of Dr. Anna at wound care and his primary care physician, Dr. Shrestha. Patient is scheduled to see general surgery on 10 May for possible amputation of his right foot and his left great toe. Patient states normally he has no sensation in his feet but became concerned today because he started having shooting pains in his right foot. Patient has known osteomyelitis. He has been on a course of IV vancomycin without any relief of symptoms. Patient is currently not taking the vancomycin. He is also out of his 7.5/325 mg hydrocodone. Patient denies any recent fevers, chills, cough shortness of breath nausea vomiting or other GI or complaints. All other review of systems reviewed and negative except as stated. Onset: this afternoon Severity: severe Pain/Injury Location: right foot; left 1st toe Method of Injury: other (Diabetic foot wound) Allergies and Home Medications Allergies Coded Allergies: Penicillins (Verified Allergy, Mild, 11/10/18) cefaclor (Verified Allergy, Mild, 11/10/18) Home Medications Amitriptyline HCl 10 Mg Tablet, 10 MG PO HS, (Reported) Aspirin 81 Mg Tablet., 81 MG PO DAILY, (Reported) Cilostazol 50 Mg Tablet, 50 MG PO BID, (Reported) Clopidogrel Bisulfate 75 Mg Tablet, 75 MG PO DAILY, (Reported) Cyclobenzaprine HCl 10 Mg Tablet, 10 MG PO HS, (Reported) Hydrocodone Bit/Acetaminophen 1 Ea Tablet, 1 EA PO Q4H PRN for PAIN-MODERATE (5- 7) Prescribed by: SYLVIA SHRESTHA on 02/21/201808 Metformin HCl 500 Mg Tab.er.24h, 1,000 MG PO DAILY, (Reported) TAKES 2 (500MG) TABS Metoprolol Succinate 50 Mg Tab.er.24h, 50 MG PO DAILY, (Reported) Pantoprazole Sodium 40 Mg Tablet.dr, 40 MG PO DAILY, (Reported) Vancomycin HCl in Water 2 Gm/20 Ml Vial, 2 GM IV DAILY daily at 1400 Prescribed by: SYLVIA SHRESTHA on 02/21/20 8972 Patient Home Medication List Home Medication List Reviewed: Yes Review of Systems Constitutional: see HPI Respiratory: no symptoms reported Cardiovascular: no symptoms reported Gastrointestinal: no symptoms reported Genitourinary: no symptoms reported Musculoskeletal: joint pain (Right foot) Skin: lesions All Other Systems Reviewed Negative Unless Noted: Yes Past Zkmzsbd-Uhymhd-Dvmyhs Hx Patient Social History Alcohol Use: Denies Use Smoking Status: Former Smoker Type Used: Cigarettes Former Smoker, Quit: Dec 15, 2016 2nd Hand Smoke Exposure: No Recent Hopitalizations: No Immunizations Up To Date Tetanus Booster (TDap): More than 5yrs PED Vaccines UTD: Yes Seasonal Allergies Seasonal Allergies: No Past Medical History Surgeries: Yes (R FINGER AMPUTATION, ING HERNIA X2, TOE TENDON, AORTIC STENT, LEG BYPASS) CABG, Orthopedic, Vascular Surgery Respiratory: No Currently Using CPAP: No Currently Using BIPAP: No Cardiac: Yes (HX OF AORTIC STENT, multiple stents to lorin. lower extremities) Deep Vein Thrombosis, Peripheral Vascular Neurological: No Neuropathy Sexually Transmitted Disease: No HIV/AIDS: No Genitourinary: No Gastrointestinal: Yes (DYSPHAGIA) Chronic Constipation Musculoskeletal: No (FINGERS AMP ) Amputee Endocrine: No HEENT: Yes (GLASSES) Loss of Vision: Denies Hearing Impairment: Denies Cancer: No Psychosocial: No Sleep Difficulties, Suicide Attempts Integumentary: No Blood Disorders: No Adverse Reaction/Blood Tranf: No (N/A) Family Medical History Cardiovascular disease 19 FATHER Completed stroke 19 FATHER Diabetes mellitus 19 MOTHER Myocardial infarction 19 FATHER No Pertinent Family Hx Physical Exam Vital Signs Capillary Refill : Height, Weight, BMI Height: 6'4.00" Weight: 180lbs. 0.0oz. 81.172173do; 22.02 BMI Method:Stated General Appearance: WD/WN, moderate distress (Secondary to pain) Cardiovascular: regular rate, rhythm Respiratory: lungs clear, normal breath sounds, no respiratory distress Gastrointestinal: non tender, soft Legs: right leg bone tenderness, right leg pain, right leg soft tissue tenderness, right leg swelling (Right foot) Knees: bilateral knee non-tender, bilateral knee normal inspection, bilateral knee normal range of motion, bilateral knee no evidence of injury Ankles: bilateral ankle non-tender, bilateral ankle normal inspection, bilateral ankle normal range of motion, bilateral ankle no evidence of injury Feet: left foot other (Patient has an ulcer at the tip of his left great toe that is about 1 cm x 1 cm with surrounding edema no erythema is noted) Neurologic/Tendon: normal motor functions, sensory deficit (Left foot) Neurologic/Psychiatric: alert, normal mood/affect, oriented x 3 Skin: normal color, warm/dry Progress/Results/Core Measures Results/Orders My Orders Orders - JARRET GAN MD Hydromorphone Injection (Dilaudid Inject (04/30/20 17:45) Departure Impression Primary Impression: Diabetic foot ulcer Qualified Codes: E11.621 - Type 2 diabetes mellitus with foot ulcer; L97.412 - Non-pressure chronic ulcer of right heel and midfoot with fat layer exposed Additional Impressions: Osteomyelitis of forefoot Osteomyelitis of great toe of left foot Disposition: HOME, SELF-CARE Condition: Stable Departure-Patient Inst. Decision time for Depature: 17:47 Referrals: SYLVIA SHRESTHA DO (PCP/Family) Primary Care Physician Patient Instructions: CHRONIC PAIN, Diabetic Foot Ulcer (DC) Add. Discharge Instructions: Continue your home daily medications as previously prescribed. Please keep your follow-up scheduled for May 10 to have your wounds and feet evaluated Take the hydrocodone 7.5 mg 2-3 times daily as needed for severe pain. Return to the emergency room for fever, worsening pain, swelling, drainage or any other emergent concerning symptoms. Scripts Hydrocodone/Acetaminophen (Hydrocodone-Acetamin 7.5-325) 1 Each Tablet 1 EACH PO Q6H PRN for PAIN-SEVERE (8-10), #30 TAB Prov: JARRET GAN MD 04/30/20 Copy Copies To 1: SYLVIA SHRESTHA KATHRYN M MD Apr 30, 2020 17:33
[2020-04-30] MEDS ORDERED: HYDROmorphone 2 MG/ML VIAL (DILAUDID) IV ONE (17:45)
[2020-04-30] MEDS ORDERED: HYDR-3817 PO (17:50)
[2020-04-30 18:20] VITALS: BP 130/69
== END 2020-04-30 18:20 | disposition home or self-care (01) ==
LOC: EDUNIT# 17:09 → ER 17:12
DX: E11.621 Type 2 diabetes mellitus with foot ulcer (principal); L97.412 Non-pressure chronic ulcer of right heel and midfoot with fat layer exposed; E11.69 Type 2 diabetes mellitus with other specified complication; M86.9 Osteomyelitis, unspecified; E11.40 Type 2 diabetes mellitus with diabetic neuropathy, unspecified; E11.51 Type 2 diabetes mellitus with diabetic peripheral angiopathy without gangrene; Z87.891 Personal history of nicotine dependence; Z79.2 Long term (current) use of antibiotics; Z79.891 Long term (current) use of opiate analgesic; Z91.14 Patient's other noncompliance with medication regimen; Z79.82 Long term (current) use of aspirin; Z79.02 Long term (current) use of antithrombotics/antiplatelets; Z79.84 Long term (current) use of oral hypoglycemic drugs; Z89.021 Acquired absence of right finger(s); Z95.5 Presence of coronary angioplasty implant and graft; Z86.718 Personal history of other venous thrombosis and embolism; Z88.0 Allergy status to penicillin; Z88.1 Allergy status to other antibiotic agents
CPT/HCPCS: 82962

== ENCOUNTER → 2020-09-17 | Outpatient (CLI) | payer BC ==
[~2020-09-17] MED LIST changes: +ACHD5005 PO; +HYDR-3817 PO; -OMEP40CA27 PO; +OMEP40CA6 PO
[2020-09-17 08:14] LABS: BASOPHILS % (AUTO) 1 % (0-10); EOSINOPHILS # (AUTO) 0.2 10^3/uL (0.0-0.3); EOSINOPHILS % (AUTO) 3 % (0-10); HEMATOCRIT 39 % (40-54); HEMOGLOBIN 12.6 g/dL (13.3-17.7); LYMPHOCYTES # (AUTO) 1.6 10^3/uL (1.0-4.0); LYMPHOCYTES % (AUTO) 27 % (12-44); MEAN CORPUSCULAR HEMOGLOBIN 27 pg (25-34); MEAN CORPUSCULAR HGB CONC 33 g/dL (32-36); MEAN CORPUSCULAR VOLUME 82 fL (80-99); MEAN PLATELET VOLUME 10.4 fL (9.0-12.2); MONOCYTES # (AUTO) 0.5 10^3/uL (0.0-1.0); MONOCYTES % (AUTO) 9 % (0-12); NEUTROPHILS # (AUTO) 3.5 10^3/uL (1.8-7.8); NEUTROPHILS % (AUTO) 60 % (42-75); PLATELET COUNT 215 10^3/uL (130-400); WHITE BLOOD COUNT 5.8 10^3/uL (4.3-11.0)
[2020-09-17 08:25] LABS: ALBUMIN 3.9 GM/DL (3.2-4.5); BILIRUBIN,TOTAL 0.2 MG/DL (0.1-1.0); CALCIUM 9.1 MG/DL (8.5-10.1); CREATININE SERUM 1.07 MG/DL (0.60-1.30); POTASSIUM 4.6 MMOL/L (3.6-5.0); TOTAL PROTEIN 7.8 GM/DL (6.4-8.2)
--- NOTE | 2020-09-17 08:51 | Diagnostic Imaging Report ---
EXAM: LUMBAR SPINE - 2-3 VIEWS INDICATION: Fall. Low back pain. COMPARISON: None. FINDINGS: Superior endplate compression fracture of T12 results in approximately 30% height loss, is age indeterminate. Lumbar vertebral body heights are preserved. Normal alignment. Visualized pelvis is intact. No substantial spondylotic change. Vascular stent. IMPRESSION: Superior endplate compression fracture of T12 appears sclerotic but is age indeterminate. This could be better evaluated with MRI if clinically warranted. No acute radiographic findings in the lumbar spine. Dictated by: Dictated on workstation # [id number]
--- NOTE | 2020-09-17 09:02 | Diagnostic Imaging Report ---
EXAM: CERVICAL SPINE 3 VIEWS OR LESS INDICATION: Fall. Neck pain. COMPARISON: None. FINDINGS: Normal alignment. Vertebral body heights preserved. No fractures. Normal prevertebral soft tissues. No substantial spondylotic change. IMPRESSION: No acute radiographic findings in the cervical spine. Dictated by: Dictated on workstation # [id number]
== END ==
LOC: RAD 07:36
PROVIDERS: ATTEND Family Medicine
DX: M48.54XA Collapsed vertebra, not elsewhere classified, thoracic region, initial encounter for fracture (principal); W19.XXXA Unspecified fall, initial encounter
CPT/HCPCS: 36415; 72040; 72100; 80053; 83036; 85025

== ENCOUNTER 2020-09-20 15:49 | Emergency (ER) | payer BC ==
[~2020-09-20] VITALS: Ht 190 cm; Wt 79.3 kg
[~2020-09-20 15:49] MED LIST changes: -ACHD5005 PO
--- NOTE | 2020-09-20 16:14 | ED Neck-Back Pain/Injury ---
General Chief Complaint: Head/Cervical Problems Stated Complaint: FALL X3 WEEKS AGO, BACK PAIN, L ARM/SHOULDER PAIN Nursing Triage Note: PT PRESENTS TO ED VIA POV FROM HOME WITH COMPLAINTS OF L SIDED NECK AND SHOULDER PAIN SINCE HE FELL 3 WEEKS AGO. Source of Information: Patient Exam Limitations: No Limitations History of Present Illness Date Seen by Provider: Sep 20, 2020 Time Seen by Provider: 16:12 Initial Comments To ER with reports of a fall about 3 weeks ago. He is wheelchair-bound has a right below the knee amputation and amputation of the few of his fingers on the right arm. He was opening a gate at his house using a knee scooter at the time when he lost his balance and fell. No pain initially but about 3 days after the event he developed some left shoulder pain and tingling that radiates down to the left forearm and weakness in the left arm. He did not have this pain initially after the fall. Location: Lumbar Spine Severity: Moderate Pain/Injury Location: None Method of Injury: Unknown Associated Symptoms: tingling in legs/feet Allergies and Home Medications Allergies Coded Allergies: Penicillins (Verified Allergy, Mild, 11/10/18) cefaclor (Verified Allergy, Mild, 11/10/18) Home Medications Amitriptyline HCl 10 Mg Tablet, 10 MG PO HS, (Reported) Aspirin 81 Mg Tablet.dr, 81 MG PO DAILY, (Reported) Cilostazol 50 Mg Tablet, 50 MG PO BID, (Reported) Clopidogrel Bisulfate 75 Mg Tablet, 75 MG PO DAILY, (Reported) Cyclobenzaprine HCl 10 Mg Tablet, 10 MG PO HS, (Reported) Hydrocodone Bit/Acetaminophen 1 Ea Tablet, 1 EA PO Q4H PRN for PAIN-MODERATE (5- 7) Prescribed by: SYLVIA MARIA on 02/21/201808 Hydrocodone/Acetaminophen 1 Each Tablet, 1 EACH PO Q6H PRN for PAIN-SEVERE (8- 10) Prescribed by: JARRET GAN on 04/30/201750 Metformin HCl 500 Mg Tab.er.24h, 1,000 MG PO DAILY, (Reported) TAKES 2 (500MG) TABS Metoprolol Succinate 50 Mg Tab.er.24h, 50 MG PO DAILY, (Reported) Pantoprazole Sodium 40 Mg Tablet.dr, 40 MG PO DAILY, (Reported) Vancomycin HCl in Water 2 Gm/20 Ml Vial, 2 GM IV DAILY daily at 1400 Prescribed by: SYLVIA MARIA on 02/21/20 5106 Patient Home Medication List Home Medication List Reviewed: Yes Review of Systems Constitutional: see HPI EENTM: see HPI Respiratory: no symptoms reported Cardiovascular: no symptoms reported Genitourinary: no symptoms reported Musculoskeletal: no symptoms reported Skin: no symptoms reported Psychiatric/Neurological: No Symptoms Reported Past Xiopcoj-Eyzzjt-Atntsl Hx Patient Social History Tobacco Use?: No Smoking Status: Former Smoker Substance use?: No Alcohol Use?: No Pt feels they are or have been: No Immunizations Up To Date Tetanus Booster (TDap): More than 5yrs PED Vaccines UTD: Yes Seasonal Allergies Seasonal Allergies: No Past Medical History Surgery/Hospitalization HX: sx:r below the knee amputation, r finger ampution, hernia repair. pmh: peripheral vasc disease, dvt, blood clots, dm, high chol. Surgeries: Yes (R FINGER AMPUTATION, ING HERNIA X2, TOE TENDON, AORTIC STENT, LEG BYPASS) CABG, Orthopedic, Vascular Surgery Respiratory: No Currently Using CPAP: No Currently Using BIPAP: No Cardiac: Yes (HX OF AORTIC STENT, multiple stents to lorin. lower extremities) Deep Vein Thrombosis, Peripheral Vascular Neurological: No Neuropathy Sexually Transmitted Disease: No HIV/AIDS: No Genitourinary: No Gastrointestinal: Yes (DYSPHAGIA) Chronic Constipation Musculoskeletal: No (FINGERS AMP ) Amputee Endocrine: No HEENT: Yes (GLASSES) Loss of Vision: Denies Hearing Impairment: Denies Cancer: No Psychosocial: No Sleep Difficulties, Suicide Attempts Integumentary: No Blood Disorders: No Adverse Reaction/Blood Tranf: No (N/A) Family Medical History Cardiovascular disease 19 FATHER Completed stroke 19 FATHER Diabetes mellitus 19 MOTHER Myocardial infarction 19 FATHER No Pertinent Family Hx Physical Exam Vital Signs Vital Signs - First Documented 09/20/20 16:04 Temp 36.0 Pulse 99 Resp 18 B/P (MAP) 140/81 (100) Pulse Ox 96 Capillary Refill : Less Than 3 Seconds Height, Weight, BMI Height: 6'4.00" Weight: 180lbs. 0.0oz. 81.404276li; 21.00 BMI Method:Stated General Appearance: No Apparent Distress, WD/WN Neck: Full Range of Motion, Normal Inspection Respiratory: No Accessory Muscle Use, No Respiratory Distress Gastrointestinal: Normal Bowel Sounds, Non Tender, Soft Extremity: Normal Capillary Refill, Normal Inspection, Other (triceps weakness 3/5 on left, 5/5 on right. ) Neurologic/Psychiatric: Alert, Oriented x3 Skin: Normal Color, Warm/Dry Progress/Results/Core Measures Results/Orders My Orders Orders - TOMMY HOOPER APRN Ct Head/Cervical Spine Wo (09/20/20 16:11) Ct Lumbar Spine Wo (09/20/20 16:11) Hydrocodone/Apap 5/325 Tablet (Lortab 5 (09/20/20 17:15) Medications Given in ED Current Medications Medications Dose Ordered Sig/Marilee Route Start Time Stop Time Status Last Admin Dose Admin Acetaminophen/ Hydrocodone Bitart 1 ea ONCE ONCE PO 09/20/20 17:15 09/20/20 17:16 DC 09/20/20 17:14 1 EA Vital Signs/I&O 09/20/20 16:04 Temp 36.0 Pulse 99 Resp 18 B/P (MAP) 140/81 (100) Pulse Ox 96 Blood Pressure Mean: 100 Diagnostic Imaging Diagonstic Imaging: CT Comments NAME: WILLIAM AVILA [facility] REC#: [id number] PT STATUS: REG ER : 1960 PHYSICIAN: TOMMY HOOPER APRN ADMIT DATE: 09/20/20/ER Signed Date of Exam:09/20/20 CT LUMBAR SPINE WO PROCEDURE: CT lumbar spine without contrast. TECHNIQUE: Multiple contiguous axial images were obtained through the lumbar spine without the use of intravenous contrast. Sagittal and coronal reformations were then performed. Auto Exposure Controls were utilized during the CT exam to meet ALARA standards for radiation dose reduction. INDICATION: Fall three weeks ago. Continued left-sided back pain. COMPARISON: 09/17/2020. FINDINGS: There is an age-indeterminate compression fracture involving the superior endplate of T12 resulting in approximately 50% height loss centrally. There is associated sclerosis with this without evidence of bony retropulsion. A small amount of edema is noted in the prevertebral soft tissues. No acute fracture is seen in the lumbar spine. Alignment is anatomic. No suspicious osseous lesion is seen. Mild degenerative changes are present in the lumbar spine with disc bulges, marginal osteophytes and facet hypertrophy. These appear most prominent at the L4-L5 and L5-S1 levels. No high-density material is seen in the spinal canal. There is aneurysmal dilation of the infrarenal abdominal aorta measuring 2.5 cm in maximum diameter. No periaortic inflammatory change is seen. There is calcified aortic and iliac atherosclerotic plaque. A stent is seen within the left common iliac artery. IMPRESSION: 1. Age indeterminate, likely acute to subacute, compression fracture seen involving the T12 vertebral body with 50% height loss centrally and no bony retropulsion. 2. Mild aneurysmal dilation of the infrarenal abdominal aorta measuring 2.5 cm. 3. Degenerative changes in the lumbar spine, greatest at L4-L5 and L5-S1. Dictated by: Dictated on workstation # [id number] Dict: 09/20/20 170 Trans: 09/20/201710 [id number] Interpreted by: BALDO SAUCEDO DO Electronically signed by: BALDO SAUCEDO DO 09/20/201710 NAME: WILLIAM AVILA [facility] REC#: [id number] PT STATUS: REG ER : 1960 PHYSICIAN: TOMMY HOOPER APRN ADMIT DATE: 09/20/20/ER Draft Date of Exam:09/20/20 CT HEAD/CERVICAL SPINE WO PROCEDURE: CT head and CT cervical spine without contrast. TECHNIQUE: Multiple contiguous axial images were obtained through the brain and cervical spine without the use of intravenous contrast. Sagittal and coronal reformations through the cervical spine were then performed. Auto Exposure Controls were utilized during the CT exam to meet ALARA standards for radiation dose reduction. INDICATION: Trauma, head and neck pain. COMPARISON: There is no prior CT examination available for comparison. CT of the head: There is no mass, shift of the midline or hemorrhage to suggest an acute intracranial abnormality. There are basal ganglia calcifications, bilaterally. This is a developmental variant. The ventricles are not abnormally dilated. The bone windows show no sign of a fracture or of a destructive lesion. The orbits are symmetrical and within normal limits. The sinuses are generally clear. IMPRESSION: 1. There is no evidence for an acute intracranial abnormality. 2. If clinical concern regarding an underlying abnormality persists, then MRI would be recommended for further evaluation. CT cervical spine: The reconstructed parasagittal images show the vertebral body heights and alignment to be generally within normal limits. The intervertebral spaces are fairly well maintained. There is no high-grade central stenosis identified. However, there is neuroforaminal narrowing, bilaterally, at C3-C4 and on the right at C4-C5 and C5-C6. There is no fracture or acute bony abnormality appreciated. There is no sign of retropharyngeal edema. The thyroid gland is partially obscured by streak artifact. The lung apices are clear. IMPRESSION: There is no acute bony abnormality of the cervical spine. Dictated on workstation # [id number] Dict: 09/20/20 1703 Trans: 09/20/20 1716 [id number] Interpreted by: PALMA WHELAN MD Electronically signed by: Departure Impression Primary Impression: T12 compression fracture Additional Impression: Cervical radicular pain Disposition: 01 HOME, SELF-CARE Condition: Stable Departure-Patient Inst. Decision time for Depature: 17:16 Referrals: MARIA DEL CARMEN STARK BRIAN J MD ORENDER, JACQUELINE S DO (PCP/Family) Primary Care Physician Patient Instructions: Vertebral Compression Fracture Add. Discharge Instructions: . Pain medication as directed 2. Call a spine surgeon of your choosing. I did list the local spine surgeons. Purpose for this would be to see if they feel you are a good candidate for kyphoplasty to help with pain control., Given the left arm tingling and numbness, an MRI of the cervical spine may be warranted to evaluate for a disc injury to the neck. All discharge instructions reviewed with patient and/or family. Voiced understanding. Scripts Hydrocodone/Acetaminophen (Hydrocodone-Acetamin 5-325 mg) 1 Each Tablet 1 TAB PO Q4H PRN for PAIN-MODERATE (5-7), #20 TAB Prov: TOMMY HOOPER [employer] OTHER WRITERS 09/20/20 Copy Copies To 1: MARIA DEL CARMEN STARK DO; KAYDEN PATEL MD; SYLIVA MARIA PETER J APRN Sep 20, 2020 16:14
--- NOTE | 2020-09-20 17:11 | Diagnostic Imaging Report ---
PROCEDURE: CT lumbar spine without contrast. TECHNIQUE: Multiple contiguous axial images were obtained through the lumbar spine without the use of intravenous contrast. Sagittal and coronal reformations were then performed. Auto Exposure Controls were utilized during the CT exam to meet ALARA standards for radiation dose reduction. INDICATION: Fall three weeks ago. Continued left-sided back pain. COMPARISON: 09/17/2020. FINDINGS: There is an age-indeterminate compression fracture involving the superior endplate of T12 resulting in approximately 50% height loss centrally. There is associated sclerosis with this without evidence of bony retropulsion. A small amount of edema is noted in the prevertebral soft tissues. No acute fracture is seen in the lumbar spine. Alignment is anatomic. No suspicious osseous lesion is seen. Mild degenerative changes are present in the lumbar spine with disc bulges, marginal osteophytes and facet hypertrophy. These appear most prominent at the L4-L5 and L5-S1 levels. No high-density material is seen in the spinal canal. There is aneurysmal dilation of the infrarenal abdominal aorta measuring 2.5 cm in maximum diameter. No periaortic inflammatory change is seen. There is calcified aortic and iliac atherosclerotic plaque. A stent is seen within the left common iliac artery. IMPRESSION: 1. Age indeterminate, likely acute to subacute, compression fracture seen involving the T12 vertebral body with 50% height loss centrally and no bony retropulsion. 2. Mild aneurysmal dilation of the infrarenal abdominal aorta measuring 2.5 cm. 3. Degenerative changes in the lumbar spine, greatest at L4-L5 and L5-S1. Dictated by: Dictated on workstation # [id number]
[2020-09-20] MEDS ORDERED: HYDROcodone/APAP 5 MG/325 MG (LORTAB) TAB PO ONE (17:15)
--- NOTE | 2020-09-20 17:17 | Diagnostic Imaging Report ---
PROCEDURE: CT head and CT cervical spine without contrast. TECHNIQUE: Multiple contiguous axial images were obtained through the brain and cervical spine without the use of intravenous contrast. Sagittal and coronal reformations through the cervical spine were then performed. Auto Exposure Controls were utilized during the CT exam to meet ALARA standards for radiation dose reduction. INDICATION: Trauma, head and neck pain. COMPARISON: There is no prior CT examination available for comparison. CT of the head: There is no mass, shift of the midline or hemorrhage to suggest an acute intracranial abnormality. There are basal ganglia calcifications, bilaterally. This is a developmental variant. The ventricles are not abnormally dilated. The bone windows show no sign of a fracture or of a destructive lesion. The orbits are symmetrical and within normal limits. The sinuses are generally clear. IMPRESSION: 1. There is no evidence for an acute intracranial abnormality. 2. If clinical concern regarding an underlying abnormality persists, then MRI would be recommended for further evaluation. CT cervical spine: The reconstructed parasagittal images show the vertebral body heights and alignment to be generally within normal limits. The intervertebral spaces are fairly well maintained. There is no high-grade central stenosis identified. However, there is neuroforaminal narrowing, bilaterally, at C3-C4 and on the right at C4-C5 and C5-C6. There is no fracture or acute bony abnormality appreciated. There is no sign of retropharyngeal edema. The thyroid gland is partially obscured by streak artifact. The lung apices are clear. IMPRESSION: There is no acute bony abnormality of the cervical spine. Dictated by: Dictated on workstation # [id number]
[2020-09-20] MEDS ORDERED: ACHD5005 PO (17:28)
[2020-09-20 18:04] VITALS: BP 132/84
== END 2020-09-20 18:04 | disposition home or self-care (01) ==
LOC: EDUNIT# 15:49 → ER 15:51
DX: S22.080A Wedge compression fracture of T11-T12 vertebra, initial encounter for closed fracture (principal); M54.12 Radiculopathy, cervical region; Z87.891 Personal history of nicotine dependence; Z86.718 Personal history of other venous thrombosis and embolism; Z79.82 Long term (current) use of aspirin; Z79.01 Long term (current) use of anticoagulants; W18.30XA Fall on same level, unspecified, initial encounter
CPT/HCPCS: 70450; 72125; 72131

== ENCOUNTER → 2020-09-26 | Outpatient (CLI) | payer BC ==
[~2020-09-26] MED LIST changes: +ACHD5005 PO
--- NOTE | 2020-09-26 11:36 | Diagnostic Imaging Report ---
PROCEDURE: MR imaging cervical spine without contrast. TECHNIQUE: Multiplanar, multisequence MR imaging of the cervical spine was performed without contrast. INDICATION: Neck pain with left arm tingling and numbness. COMPARISON: CT cervical spine without contrast 09/20/2020. FINDINGS: Normal alignment. Vertebral body heights are preserved. Normal bone marrow signal. No abnormal signal in the cervical spinal cord. Visualized paravertebral soft tissues are unremarkable. C2-C3: Normal. C3-C4: Disc osteophyte complex and ligamentous hypertrophy result in moderate spinal canal stenosis. Severe left and moderate right neural foraminal narrowing. C4-C5: Uncovertebral and facet arthropathy result in [id number] bilateral neural foraminal narrowing. Annular disc bulging results in mild spinal canal narrowing. C5-C6: Uncovertebral joint hypertrophy results in severe right and mild left neural foraminal narrowing. Mild spinal canal narrowing. C6-C7: Annular disc bulge results in mild spinal canal and moderate bilateral neural foraminal narrowing. C7-T1: Normal. IMPRESSION: 1. Spondylotic changes result in scattered high-grade neural foraminal narrowing detailed above level by level. 2. There is also moderate spinal canal stenosis at C3-C4. 3. No abnormal signal in the cervical spinal cord. Dictated by: Dictated on workstation # [id number]
== END ==
LOC: RAD 08:00
PROVIDERS: ATTEND Family Medicine
DX: M50.123 Cervical disc disorder at C6-C7 level with radiculopathy (principal); M47.22 Other spondylosis with radiculopathy, cervical region; M48.02 Spinal stenosis, cervical region
CPT/HCPCS: 72141

== ENCOUNTER → 2020-10-30 | Outpatient (CLI) | payer BC | LOC: LABNPT 06:41 | PROVIDERS: ATTEND Orthopaedic Surgery | DX: Z01.812 Encounter for preprocedural laboratory examination (principal); Z20.822 Contact with and (suspected) exposure to COVID-19 | CPT/HCPCS: 87635 ==

== ENCOUNTER 2020-11-28 14:52 | Inpatient (IN) | payer BC ==
[~2020-11-28] VITALS: Ht 182.9 cm; Wt 83.1 kg
--- NOTE | 2020-11-28 15:10 | ED General ---
General Chief Complaint: Glucose Problems Stated Complaint: HIGH BLOOD SUGAR 478,BLURRED VISION, Source of Information: Patient Exam Limitations: No Limitations History of Present Illness Date Seen by Provider: Nov 28, 2020 Time Seen by Provider: 15:07 Initial Comments To ER with high blood sugar at 478 accompanied by blurred vision. He has had some abdominal pain with diarrhea. The abdominal pain is central and diffuse. This has been ongoing for about 1 week. No nausea or vomiting. He occasionally has some burning on urination. He checked his blood sugar last night and it was 540. He takes Metformin 1000 mg twice daily as prescribed by Dr. SHRESTHA. Last time he checked his blood sugar prior to last night was about 2 weeks ago and it was about 110. He denies fevers or chills. He has had blurred vision for about a week and a half. Timing/Duration: Constant, Getting Worse Severity: Moderate Associated Systoms: No Chest Pain, No Cough, No Diaphoresis, No Fever/Chills, No Headaches, No Loss of Appetite, No Malaise, No Nausea/Vomiting Allergies and Home Medications Allergies Coded Allergies: Penicillins (Verified Allergy, Mild, 11/10/18) cefaclor (Verified Allergy, Mild, 11/10/18) Patient Home Medication List Home Medication List Reviewed: Yes Amitriptyline HCl (Amitriptyline HCl) 10 Mg Tablet, 10 MG PO HS, (Reported) Entered as Reported by: GUILLERMINA THORPE on 02/18/201846 Aspirin (Aspirin EC) 81 Mg Tablet.dr, 81 MG PO DAILY, (Reported) Entered as Reported by: JANETTE GAMBOA on 08/08/19 111 Cilostazol (Cilostazol) 50 Mg Tablet, 50 MG PO BID, (Reported) Entered as Reported by: GUILLERMINA THORPE on 02/18/20 184 Clopidogrel Bisulfate (Clopidogrel) 75 Mg Tablet, 75 MG PO DAILY, (Reported) Entered as Reported by: PARISH NOLASCO on 11/10/18 1455 Cyclobenzaprine HCl (Cyclobenzaprine HCl) 10 Mg Tablet, 10 MG PO HS, (Reported) Entered as Reported by: GUILLERMINA THORPE on 02/18/20 185 Hydrocodone Bit/Acetaminophen (HYDROcodone/APAP 7.5/325 TAB) 1 Ea Tablet, 1 EA PO Q4H PRN for PAIN-MODERATE (5-7) Prescribed by: SYLVIA SHRESTHA on 02/21/20 1809 Hydrocodone/Acetaminophen (Hydrocodone-Acetamin 7.5-325) 1 Each Tablet, 1 EACH PO Q6H PRN for PAIN-SEVERE (8-10) Prescribed by: JARRET GAN on 04/30/20 1751 Hydrocodone/Acetaminophen (Hydrocodone-Acetamin 5-325 mg) 1 Each Tablet, 1 TAB PO Q4H PRN for PAIN-MODERATE (5-7) Prescribed by: TOMMY HOOPER on 09/20/20 1729 Metformin HCl (Metformin HCl ER) 500 Mg Tab.er.24h, 1,000 MG PO DAILY, (Reported) Entered as Reported by: JANETTE GAMBOA on 02/20/20 0937 Metoprolol Succinate (Metoprolol Succinate) 50 Mg Tab.er.24h, 50 MG PO DAILY, (Reported) Entered as Reported by: YESENIA ANDREWS on 08/07/19 1612 Pantoprazole Sodium (Pantoprazole Sodium) 40 Mg Tablet.dr, 40 MG PO DAILY, (Reported) Entered as Reported by: GUILLERMINA THORPE on 02/18/20 1850 Vancomycin HCl in Water (Vancomycin 2,000 mg/20Ml-Water) 2 Gm/20 Ml Vial, 2 GM IV DAILY Prescribed by: SYLVIA SHRESTHA on 02/21/20 180 Review of Systems Review of Systems Constitutional: see HPI; No chills, No fever EENTM: see HPI Respiratory: no symptoms reported Cardiovascular: no symptoms reported Gastrointestinal: abdominal pain, diarrhea Genitourinary: see HPI, dysuria Musculoskeletal: no symptoms reported Skin: no symptoms reported Psychiatric/Neurological: No Symptoms Reported Hematologic/Lymphatic: No Symptoms Reported Immunological/Allergic: no symptoms reported Past Zroyfdf-Jzjcnz-Fmzftp Hx Patient Social History Tobacco Use?: No Smoking Status: Never a Smoker Use of E-Cig and/or Vaping dev: Yes E-Cig or Vaping type used: Nicotine Use of E-Cig and/or Vaping Aneesh: Current Everyday User Substance use?: No Alcohol Use?: No Immunizations Up To Date Tetanus Booster (TDap): More than 5yrs PED Vaccines UTD: Yes First/Initial COVID19 Vaccinat: 07/17/2020 Second COVID19 Vaccination Edson: 08/13/2020 COVID19 Vaccine 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 pmh: peripheral vasc disease, dvt, blood clots, dm, high chol. Surgeries: Yes (R FINGER AMPUTATION, ING HERNIA X2, TOE TENDON, AORTIC STENT, LEG BYPASS) CABG, Orthopedic, Vascular Surgery Respiratory: No Currently Using CPAP: No Currently Using BIPAP: No Cardiac: Yes (HX OF AORTIC STENT, multiple stents to lorin. lower extremities) Deep Vein Thrombosis, Peripheral Vascular Neurological: No Neuropathy Sexually Transmitted Disease: No HIV/AIDS: No Genitourinary: No Gastrointestinal: Yes (DYSPHAGIA) Chronic Constipation Musculoskeletal: No (FINGERS AMP ) Amputee Endocrine: No HEENT: Yes (GLASSES) Loss of Vision: Denies Hearing Impairment: Denies Cancer: No Psychosocial: No Sleep Difficulties, Suicide Attempts Integumentary: No Blood Disorders: No Adverse Reaction/Blood Tranf: No (N/A) Family Medical History Cardiovascular disease 19 FATHER Completed stroke 19 FATHER Diabetes mellitus 19 MOTHER Myocardial infarction 19 FATHER No Pertinent Family Hx Physical Exam Vital Signs Vital Signs - First Documented 11/28/20 14:55 Temp 36.2 Pulse 104 Resp 20 B/P (MAP) 134/86 (102) Pulse Ox 98 O2 Delivery Room Air Capillary Refill : Height, Weight, BMI Height: 6'4.00" Weight: 180lbs. 0.0oz. [id number]; 21.00 BMI Method:Stated General Appearance: No Apparent Distress, WD/WN Eyes: Bilateral Eye Normal Inspection, Bilateral Eye PERRL, Bilateral Eye EOMI Neck: Full Range of Motion, Normal Inspection Respiratory: No Accessory Muscle Use, No Respiratory Distress Cardiovascular: Regular Rate, Rhythm, Normal Peripheral Pulses Gastrointestinal: Normal Bowel Sounds, Soft, Tenderness (Epigastric/right up per) Extremity: Normal Capillary Refill, Normal Inspection, Other (Previous below the knee amputation of the right leg and several fingers on the right hand) Neurologic/Psychiatric: Alert, Oriented x3 Skin: Normal Color, Warm/Dry Progress/Results/Core Measures Suspected Sepsis SIRS Temperature: Pulse: Respiratory Rate: Laboratory Tests 11/28/20 14:59: White Blood Count 5.3 Blood Pressure / Mean: Laboratory Tests 11/28/20 14:59: Creatinine 1.14, Platelet Count 221, Total Bilirubin 0.5 Results/Orders Lab Results Laboratory Tests Test 11/28/20 14:59 11/28/20 15:00 Range/Units White Blood Count 5.3 4.3-11.0 10^3/uL Red Blood Count 4.86 4.30-5.52 10^6/uL Hemoglobin 13.7 13.3-17.7 g/dL Hematocrit 40 40-54 % Mean Corpuscular Volume 83 80-99 fL Mean Corpuscular Hemoglobin 28 25-34 pg Mean Corpuscular Hemoglobin Concent 34 32-36 g/dL Red Cell Distribution Width 14.4 10.0-14.5 % Platelet Count 221 130-400 10^3/uL Mean Platelet Volume 10.4 9.0-12.2 fL Immature Granulocyte % (Auto) 0 % Neutrophils (%) (Auto) 61 42-75 % Lymphocytes (%) (Auto) 26 12-44 % Monocytes (%) (Auto) 8 0-12 % Eosinophils (%) (Auto) 5 0-10 % Basophils (%) (Auto) 1 0-10 % Neutrophils # (Auto) 3.3 1.8-7.8 10^3/uL Lymphocytes # (Auto) 1.4 1.0-4.0 10^3/uL Monocytes # (Auto) 0.4 0.0-1.0 10^3/uL Eosinophils # (Auto) 0.2 0.0-0.3 10^3/uL Basophils # (Auto) 0.0 0.0-0.1 10^3/uL Immature Granulocyte # (Auto) 0.0 0.0-0.1 10^3/uL Sodium Level 132 L 135-145 MMOL/L Potassium Level 4.3 3.6-5.0 MMOL/L Chloride Level 99 98-107 MMOL/L Carbon Dioxide Level 20 L 21-32 MMOL/L Anion Gap 13 5-14 MMOL/L Blood Urea Nitrogen 13 7-18 MG/DL Creatinine 1.14 0.60-1.30 MG/DL Estimat Glomerular Filtration Rate 66 BUN/Creatinine Ratio 11 Glucose Level 419 *H 70-105 MG/DL Calcium Level 9.6 8.5-10.1 MG/DL Corrected Calcium 9.7 8.5-10.1 MG/DL Total Bilirubin 0.5 0.1-1.0 MG/DL Aspartate Amino Transf (AST/SGOT) 17 5-34 U/L Alanine Aminotransferase (ALT/SGPT) 21 0-55 U/L Alkaline Phosphatase 116 40-136 U/L C-Reactive Protein High Sensitivity 0.81 H 0.00-0.50 MG/DL Total Protein 7.4 6.4-8.2 GM/DL Albumin 3.9 3.2-4.5 GM/DL Lipase 16 8-78 U/L Beta-Hydroxybutyrate (Chem panel) 0.18 0.00-0.27 MMOL/L Glucometer 416 *H 70-110 MG/DL My Orders Orders - TOMMY HOOPER APRN Cbc With Automated Diff (11/28/20:) Comprehensive Metabolic Panel (11/28/20:) Hs C Reactive Protein (11/28/20:) Beta Hydroxybutyrate (11/28/20:) Ua Culture If Indicated (11/28/20:) Ed Iv/Invasive Line Start (11/28/20:) Chest 1 View, Ap/Pa Only (11/28/20:) Lipase (11/28/20 15:) Ct Abdomen/Pelvis W (11/28/20 15:) Lactated Ringers (Lr 1000 Ml Iv Solution (11/28/20 15:15) Lactated Ringers (Lr 1000 Ml Iv Solution (11/28/20 15:15) Iohexol Injection (Omnipaque 350 Mg/Ml 1 (11/28/20 15:15) Received Contrast (Hold Metformin- Contr (11/28/20 15:15) Ns (Ivpb) (Sodium Chloride 0.9% Ivpb Bag (11/28/20 15:15) Fentanyl Inj (Sublimaze Injection) (11/28/20 15:15) Sodium Chloride Flush (Catheter Flush Sy (11/28/20 15:30) Us Aorta Doppler [id number] (11/28/20 16:09) Us Gallbladder [id number] (11/28/20 16:09) Insulin Determir (Per Unit) (Levemir (Pe (11/28/20 16:30) Fentanyl Inj (Sublimaze Injection) (11/28/20 17:00) Medications Given in ED Current Medications Medications Dose Ordered Sig/Marilee Route Start Time Stop Time Status Last Admin Dose Admin Fentanyl Citrate 50 mcg ONCE ONCE IVP 11/28/20 15:15 11/28/20 15:16 DC 11/28/20 15:21 50 MCG Insulin Detemir 10 unit ONCE ONCE SQ 11/28/20 16:30 11/28/20 16:31 DC 11/28/20 17:05 10 UNIT Iohexol 100 ml ONCE ONCE IV 11/28/20 15:15 11/28/20 15:16 DC 11/28/20 15:38 100 ML Sodium Chloride 10 ml NEEDED PRN IV 11/28/20 15:30 11/28/20 15:38 10 ML Vital Signs/I&O 11/28/20 14:55 Temp 36.2 Pulse 104 Resp 20 B/P (MAP) 134/86 (102) Pulse Ox 98 O2 Delivery Room Air Capillary Refill : Point of Care Testing Finger Stick Blood Glucose: 416 Blood Glucose Action Taken: RN NOTIFIED Departure Communication (Admissions) Family Conversation 1699-I spoke with radiologist from [place] about the CT finding of possible dissection flap of the right iliac artery. He states this is a chronic finding related to peripheral arterial disease and does not warrant emergent vascular surgery consult. Additionally, the gallbladder ultrasound per the tech does show sludge within the gallbladder, no pericholecystic fluid and a common bile duct could not be observed due to overlying bowel gas. The ultrasound report from radiologist does not demonstrate any evidence of acute cholecystitis though at the very least he does have symptomatic cholelithiasis given the stones on CT and tender right upper quadrant.. He also could not evaluate the right iliac artery because of overlying bowel gas. 1712-spoke with Dr. Shrestha and Dr. Gann. We will admit, hydrate, clear liquid diet and n.p.o. after midnight for possible cholecystectomy tomorrow pending Dr. Gann's evaluation. I will withhold antibiotics given the absence of infectious findings such as leukocytosis, fever or findings of acute cholecystitis on ultrasound. Will add Levemir 10 units subcu daily to his regimen and control his pain with fentanyl. He did receive a 2 L LR bolus in the ER as well as 10 units Levemir subcu injection. 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 TECHNIQUE: Multiple contiguous axial images were obtained through the abdomen and pelvis after the uneventful administration of intravenous contrast. All CT scans use one or more of the following dose optimizing techniques: automated exposure control, MA and/or KvP adjustment based on patient size and exam type or iterative reconstruction. HISTORY: epigastric pain COMPARISON: None available. FINDINGS: Lung bases: The lung bases are clear. Solid organs: Diffuse hypoattenuation of the liver which can be seen with hepatic steatosis. There may be mild gallbladder wall thickening. There is no biliary ductal dilation. There is atrophy of the pancreas without ductal dilatation. Spleen is normal. Adrenal glands are normal. The kidneys are normal without hydronephrosis. Bowel: There is a small hiatal hernia. There is no bowel obstruction. The left hemicolon is decompressed which limits evaluation. There are no findings of acute appendicitis. Peritoneum: There is no intraperitoneal free fluid or free air. No suspicious lymphadenopathy. Vasculature: Ectasia of the infrarenal abdominal aorta measuring up to 2.5 cm. There may be a tiny dissection flap seen within the right common iliac artery. Musculoskeletal: Degenerative changes of the spine without suspicious osseous lesion or compression fracture. Vertebral augmentation of T12. Pelvis: The prostate gland is normal. The urinary bladder is normal. IMPRESSION: 1. No acute abnormality in the abdomen or pelvis. 2. Possible mild gallbladder wall thickening. Recommend correlation with gallbladder ultrasound if there are any signs or symptoms of acute cholecystitis. 3. Hepatic steatosis. 4. Possible tiny dissection flap seen within the right common iliac artery. Dictated on workstation # [id number] Dict: 11/28/20 1551 Trans: 11/28/20 1603 [id number] Interpreted by: JYOTHI LOYOLA DO Electronically signed by: Impression Primary Impression: Symptomatic cholelithiasis Additional Impressions: Hyperglycemia PAD (peripheral artery disease) Disposition: ADMITTED INPATIENT Condition: Stable Admissions Decision to Admit Reason: Admit from ER (General) Decision to Admit/Date: Nov 28, 2020 Time/Decision to Admit Time: 17:12 Departure-Patient Inst. Referrals: SYLVIA SHRESTHA DO (PCP/Family) Primary Care Physician Copy Copies To 1: SYLVIA SHRESTHA PETER J APRN Nov 28, 2020 15:10
[2020-11-28 15:11] LABS: BASOPHILS % (AUTO) 1 % (0-10); EOSINOPHILS # (AUTO) 0.2 10^3/uL (0.0-0.3); EOSINOPHILS % (AUTO) 5 % (0-10); HEMATOCRIT 40 % (40-54); HEMOGLOBIN 13.7 g/dL (13.3-17.7); LYMPHOCYTES # (AUTO) 1.4 10^3/uL (1.0-4.0); LYMPHOCYTES % (AUTO) 26 % (12-44); MEAN CORPUSCULAR HEMOGLOBIN 28 pg (25-34); MEAN CORPUSCULAR HGB CONC 34 g/dL (32-36); MEAN CORPUSCULAR VOLUME 83 fL (80-99); MEAN PLATELET VOLUME 10.4 fL (9.0-12.2); MONOCYTES # (AUTO) 0.4 10^3/uL (0.0-1.0); MONOCYTES % (AUTO) 8 % (0-12); NEUTROPHILS # (AUTO) 3.3 10^3/uL (1.8-7.8); NEUTROPHILS % (AUTO) 61 % (42-75); PLATELET COUNT 221 10^3/uL (130-400); WHITE BLOOD COUNT 5.3 10^3/uL (4.3-11.0)
[2020-11-28] MEDS: LACTATED RINGERS 1,000 ML IV SCH ×3 (15:13→18:47)
[2020-11-28] MEDS ORDERED: IOHEXOL 350 MG/ML 100 ML (OMNIPAQUE 350) VIAL IV ONE ×2 (15:15→15:30)
[2020-11-28] MEDS ORDERED: LACTATED RINGERS 1,000 ML IV SCH (15:15)
[2020-11-28] MEDS ORDERED: fentaNYL INJ 100 MCG/2 ML AMP IVP ONE ×2 (15:15→17:00)
[2020-11-28] MEDS ORDERED: NS 100 ML (IVPB) BAG IV ONE ×2 (15:15→15:30)
[2020-11-28] MEDS ORDERED: HOLD METFORMIN - RECEIVED CONTRAST 20 ML VIAL IV SCH ×2 (15:15→15:30)
[2020-11-28 15:17] LABS: ALBUMIN 3.9 GM/DL (3.2-4.5); POTASSIUM 4.3 MMOL/L (3.6-5.0)
[2020-11-28 15:18] LABS: CALCIUM 9.6 MG/DL (8.5-10.1)
[2020-11-28 15:20] LABS: TOTAL PROTEIN 7.4 GM/DL (6.4-8.2)
[2020-11-28 15:21] LABS: BILIRUBIN,TOTAL 0.5 MG/DL (0.1-1.0)
[2020-11-28 15:23] LABS: CREATININE SERUM 1.14 MG/DL (0.60-1.30)
[2020-11-28] MEDS ORDERED: CATHETER FLUSH 10 ML SYR IV PRN (15:30)
--- NOTE | 2020-11-28 15:36 | Diagnostic Imaging Report ---
INDICATION: Hyperglycemia. EXAMINATION: Portable chest at 3:17 p.m. FINDINGS: Heart size and pulmonary vascularity are normal. Lungs are clear. There are no effusions or pneumothoraces. IMPRESSION: Negative chest. Dictated by: Dictated on workstation # [id number]
--- NOTE | 2020-11-28 16:03 | Diagnostic Imaging Report ---
EXAMINATION: CT abdomen and pelvis with intravenous contrast. TECHNIQUE: Multiple contiguous axial images were obtained through the abdomen and pelvis after the uneventful administration of intravenous contrast. All CT scans use one or more of the following dose optimizing techniques: automated exposure control, MA and/or KvP adjustment based on patient size and exam type or iterative reconstruction. HISTORY: epigastric pain COMPARISON: None available. FINDINGS: Lung bases: The lung bases are clear. Solid organs: Diffuse hypoattenuation of the liver which can be seen with hepatic steatosis. There may be mild gallbladder wall thickening. There is no biliary ductal dilation. There is atrophy of the pancreas without ductal dilatation. Spleen is normal. Adrenal glands are normal. The kidneys are normal without hydronephrosis. Bowel: There is a small hiatal hernia. There is no bowel obstruction. The left hemicolon is decompressed which limits evaluation. There are no findings of acute appendicitis. Peritoneum: There is no intraperitoneal free fluid or free air. No suspicious lymphadenopathy. Vasculature: Ectasia of the infrarenal abdominal aorta measuring up to 2.5 cm. There may be a tiny dissection flap seen within the right common iliac artery. Musculoskeletal: Degenerative changes of the spine without suspicious osseous lesion or compression fracture. Vertebral augmentation of T12. Pelvis: The prostate gland is normal. The urinary bladder is normal. IMPRESSION: 1. No acute abnormality in the abdomen or pelvis. 2. Possible mild gallbladder wall thickening. Recommend correlation with gallbladder ultrasound if there are any signs or symptoms of acute cholecystitis. 3. Hepatic steatosis. 4. Possible tiny dissection flap seen within the right common iliac artery. Dictated by: Dictated on workstation # [id number]
--- NOTE | 2020-11-28 17:10 | Diagnostic Imaging Report ---
EXAM: Right upper quadrant ultrasound. DATE: November 28, 2020. COMPARISON: CT abdomen and pelvis November 28, 2020. INDICATION: 60-year-old male, abdominal pain. PROCEDURE: Two-dimensional grayscale and color Doppler ultrasound examination of the right upper quadrant is performed. FINDINGS: Liver: The liver is unremarkable in size and contour. The main portal vein is patent with normal directional flow and velocity. There is limitation for evaluation of fatty infiltration of the liver given lack of a well provided image demonstrating both the right kidney and liver in the included [id number]. There does appear to be diffuse fatty infiltration of the liver based on prior CT. Bile ducts and gallbladder: There is echogenic material in the gallbladder with shadowing consistent with stones. The gallbladder is not distended. There is no identified pericholecystic fluid. There is no identified intrahepatic bile duct dilation. The common bile duct is not well demonstrated. There is no dilation of the common bile duct on same day CT abdomen and pelvis. Right kidney: Unremarkable right kidney. No hydronephrosis. The right kidney measures 10.6 cm x 4.0 cm x 5.3 cm. Pancreas: The pancreas is not well seen. IMPRESSION: 1. Diffuse fatty infiltration of the liver. 2. Cholelithiasis without evidence of acute cholecystitis. 3. No identified biliary ductal dilation. Dictated by: Dictated on workstation # [id number]
--- NOTE | 2020-11-28 17:13 | Diagnostic Imaging Report ---
PROCEDURE: US aorta Doppler. TECHNIQUE: Multiple real time grayscale images were obtained over the abdominal aorta in various projections. INDICATION: Abnormal CT of the right iliac artery, possible dissection. Proximal abdominal aorta measures 1.8 x 1.8 cm. Mid abdominal aorta measures 2.2 x 2.2 cm. Distal abdominal aorta measures 2.5 x 2.2 cm. Right common iliac artery measures 0.8 x 1.1 cm. Left iliac artery measures 0.7 x 1.1 cm. IMPRESSION: There is ectasia of the abdominal aorta just above the bifurcation. No dissection is seen by ultrasound. Dictated by: Dictated on workstation # [id number]
[2020-11-28] MEDS ORDERED: ONDANSETRON 4 MG/2 ML (SDV) Z0FRAN IVP PRN (18:00)
--- NOTE | 2020-11-28 18:04 | CONSULTATION REPORT ---
DATE OF SERVICE: 11/28/2020 ADMITTING PRIMARY CARE PHYSICIAN: Janneth Shrestha DO. HISTORY OF PRESENT ILLNESS: The patient is a 60-year-old male known to us. He does have significant past medical history including peripheral vascular disease, diabetes as well as hypertension and coronary artery disease. He presented to the Emergency Department with abdominal pain in the right upper abdominal quadrant as well as epigastric region. He does not report any nausea and no vomiting. He was found to be hyperglycemic with a glucose of 419. A CT scan was performed, which did show some mild gallbladder wall thickening as well as gallstones. Ultrasound confirmed this. These findings are consistent with chronic calculous cholecystitis, which is symptomatic. Once his glucose is under control, we will give him the option to proceed with a laparoscopic cholecystectomy on this admission. PAST MEDICAL HISTORY: Hypertension, diabetes, coronary artery disease, peripheral vascular disease, and gastroesophageal reflux disease. PAST SURGICAL HISTORY: Right second finger amputation, bilateral inguinal hernia, abdominal aortic stent placement, coronary artery bypass grafting, lower extremity bypass, multiple lower extremity angioplasties and stent placements, history of DVT, and orthopedic procedure. ALLERGIES: PENICILLIN and CEFACLOR. MEDICATIONS: Amitriptyline 10 mg daily, aspirin 81 mg daily, Plavix 75 mg daily, cyclobenzaprine 10 mg daily, hydrocodone p.r.n., metformin 1000 mg daily, metoprolol 50 mg daily, and Protonix 40 mg daily. SOCIAL HISTORY: Positive smoke 30 pack years. Negative alcohol. FAMILY HISTORY: Father, coronary artery disease, stroke, myocardial infarction. Mother, diabetes. REVIEW OF SYSTEMS: This is a thin-appearing male in no acute distress. He is not experiencing any shortness of breath or difficulty breathing. No chest pain, palpitations, and diaphoresis. Right upper abdominal quadrant as well as epigastric pain. No nausea, vomiting. No diarrhea or constipation. No fever, chills. No recent inadvertent weight loss. All other review of systems negative. PHYSICAL EXAMINATION: VITAL SIGNS: Temperature 36.2, blood pressure 134/86, pulse 104, respirations 20, and pulse ox 98% on room air. CHEST: Distant breath sounds and scattered wheezes bilaterally. HEART: Regular and no murmurs. EXTREMITIES: No lower extremity edema and negative Homans sign. HEENT: No scleral icterus. NECK: No cervical lymphadenopathy. ABDOMEN: Soft, nondistended. There is pain in the right upper abdominal quadrant upon deep palpation. No peritoneal signs. SKIN: Warm, dry. LABORATORY DATA: WBC 5.3, hemoglobin 13.7, hematocrit 40, platelets 221, BUN 13, creatinine 1.14, and glucose 419. Liver function enzymes are normal. ASSESSMENT AND PLAN: A 60-year-old male with hyperglycemia as well as symptomatic chronic calculous cholecystitis. He does have an extensive past medical history including coronary artery disease as well as peripheral vascular disease and he is also on anticoagulation with aspirin as well as Plavix. Once his glucose is under control as well as his aspirin and Plavix held for a few days, we may proceed with a laparoscopic cholecystectomy either on this admission versus as an outpatient. Job ID: [id number] DocumentID: [id number] Dictated Date: 11/28/2020 17:45:58 Physics Technician Date: 11/28/2020 18:02:55 Dictated By: GIANCARLO OREILLY MD MTDD
[2020-11-28 18:12] VITALS: BP 146/81
[2020-11-28] MEDS: CIPROFLOXACIN 400 MG/D5W 200 ML (PRE-MIX) IV SCH (18:37)
[2020-11-28] MEDS: fentaNYL INJ 100 MCG/2 ML AMP IV PRN ×3 (18:47→23:42)
[2020-11-28 20:14] VITALS: BP 125/78
[2020-11-28] MEDS: metroNIDAZOLE 500MG/100ML IVPB 100 ML IV SCH (21:33)
[2020-11-28] MEDS: inSUlin ASPART (NovoLOG) 1 UNIT/0.01 ML (CHARGE PER UNIT) SC SCH (22:15)
[2020-11-29 00:07] VITALS: BP 105/64
[2020-11-29] MEDS: LACTATED RINGERS 1,000 ML IV SCH ×3 (01:42→11:31)
[2020-11-29] MEDS: metroNIDAZOLE 500MG/100ML IVPB 100 ML IV SCH ×3 (01:58→19:26)
[2020-11-29] MEDS: fentaNYL INJ 100 MCG/2 ML AMP IV PRN ×3 (01:59→08:22)
[2020-11-29 02:01] LABS: BILIRUBIN,URINE NEGATIVE (NEGATIVE); CLARITY,URINE CLEAR; COLOR,URINE YELLOW; GLUCOSE, URINE (UA) 3+ (NEGATIVE); KETONES,URINE NEGATIVE (NEGATIVE); LEUKOCYTE ESTERASE ,URINE NEGATIVE (NEGATIVE); NITRITE,URINE NEGATIVE (NEGATIVE); PROTEIN,URINE NEGATIVE (NEGATIVE)
[2020-11-29 02:07] LABS: BACTERIA,URINE NEGATIVE /HPF; SQUAMOUS EPITHELIAL CELL,UR RARE /HPF
[2020-11-29 04:13] VITALS: BP 112/67
[2020-11-29] MEDS: CIPROFLOXACIN 400 MG/D5W 200 ML (PRE-MIX) IV SCH ×2 (05:40→18:00)
[2020-11-29] MEDS: inSUlin ASPART (NovoLOG) 1 UNIT/0.01 ML (CHARGE PER UNIT) SC SCH ×4 (05:40→21:32)
[2020-11-29 05:57] LABS: BASOPHILS % (AUTO) 1 % (0-10); EOSINOPHILS # (AUTO) 0.3 10^3/uL (0.0-0.3); EOSINOPHILS % (AUTO) 6 % (0-10); HEMATOCRIT 36 % (40-54); HEMOGLOBIN 11.9 g/dL (13.3-17.7); LYMPHOCYTES # (AUTO) 1.6 10^3/uL (1.0-4.0); LYMPHOCYTES % (AUTO) 35 % (12-44); MEAN CORPUSCULAR HEMOGLOBIN 28 pg (25-34); MEAN CORPUSCULAR HGB CONC 33 g/dL (32-36); MEAN CORPUSCULAR VOLUME 83 fL (80-99); MEAN PLATELET VOLUME 10.5 fL (9.0-12.2); MONOCYTES # (AUTO) 0.5 10^3/uL (0.0-1.0); MONOCYTES % (AUTO) 11 % (0-12); NEUTROPHILS # (AUTO) 2.1 10^3/uL (1.8-7.8); NEUTROPHILS % (AUTO) 47 % (42-75); PLATELET COUNT 172 10^3/uL (130-400); WHITE BLOOD COUNT 4.4 10^3/uL (4.3-11.0)
[2020-11-29 06:16] LABS: ALBUMIN 3.5 GM/DL (3.2-4.5); BILIRUBIN,TOTAL 0.4 MG/DL (0.1-1.0); CALCIUM 9.2 MG/DL (8.5-10.1); CREATININE SERUM 0.82 MG/DL (0.60-1.30); POTASSIUM 3.2 MMOL/L (3.6-5.0); TOTAL PROTEIN 6.4 GM/DL (6.4-8.2)
--- NOTE | 2020-11-29 07:49 | Consultation ---
SHARON HENNING 11/29/20 0748: HPI History of Present Illness: HPI/Chief Complaint 60yo M with history of diabetes, peripheral vascular disease, BKA, HTN, and CAD presented to ED with RUQ+epigastric abdominal pain with diarrhea, blurry vision, and hyperglycemic yesterday. Pt reported two days ago saw his blood sugar spike to 540, took two pills of metformin with blood sugar going down to 478, and then woke in the morning to go to the ED for his abdominal pain. Consulted for control of diabetes and medical management. Current blood glucose at 80 and reports diarrhea, blurry vision, and RUQ abdominal pain. Denies any fever, chills, nausea, vomiting, chest pain, headache, numbness, cough, or SOB. Source: patient Exam Limitations: no limitations Date Seen 11/29/20 Attending Physician Sylvia Shrestha DO PCP Sylvia Shrestha DO Referring Physician Dr. Abad Date of Admission Nov 28, 2020 at 17:10 Home Medications & Allergies Home Medications Reviewed patient Home Medication Reconciliation performed by pharmacy medication reconciliations system support technician and/or nursing. Patients Allergies have been reviewed. Allergies Allergies Coded Allergies No Known Drug Allergies (Xhdnvigqea92/13/21) Past Vtnovgk-Lpidys-Mwmigd Hx Patient Social History Tobacco Use?: No Tobacco type used: Cigarettes Smoking Status: Former Smoker Use of E-Cig and/or Vaping dev: Yes E-Cig or Vaping type used: Other Additional E-Cig or Vaping: no nicotine in the vapor per patient Use of E-Cig and/or Vaping Aneesh: Current Everyday User Substance use?: No Alcohol Use?: No Pt feels they are or have been: No Immunizations Up To Date First/Initial COVID19 Vaccinat: 07/17/2020 Second COVID19 Vaccination Edson: 08/13/2020 Tetanus Booster (TDap): Unknown Hepatitis A: No Hepatitis B: No PED Vaccines UTD: Yes Seasonal Allergies Seasonal Allergies: No Current Status Advance Directives: No Communicates: Verbally Primary Language: [place] Preferred Spoken Language: [place] Is interpretation needed?: No Sensory deficits: Vision impairment Implanted or Applied Medical D: None Past Medical History Surgeries: CABG, Orthopedic, Vascular Surgery Currently Using CPAP: No Currently Using BIPAP: No Deep Vein Thrombosis, Peripheral Vascular Neuropathy Sexually Transmitted Disease: No HIV/AIDS: No Chronic Constipation Amputee Loss of Vision: Denies Hearing Impairment: Denies Sleep Difficulties, Suicide Attempts Blood Disorders: No Adverse Reaction/Blood Tranf: No (N/A) Family Medical History Cardiovascular disease 19 FATHER Completed stroke 19 FATHER Diabetes mellitus 19 MOTHER Myocardial infarction 19 FATHER No Pertinent Family Hx Review of Systems Constitutional: No chills, No dizziness, No fever EENTM: blurred vision; No hearing loss, No eye pain Respiratory: No cough, No short of breath, No wheezing Cardiovascular: No chest pain, No edema, No palpitations Gastrointestinal: abdominal pain (RUQ), diarrhea; No nausea, No vomiting Genitourinary: No frequency, No incontinence Skin: change in color (pt reports some bruising on L arm); No lumps, No rash Psychiatric/Neurological: Headache; Denies Numbness, Denies Tingling Physical Exam Physical Exam Vital Signs Vital Signs - First Documented 11/28/20 14:55 Temp 36.2 Pulse 104 Resp 20 B/P (MAP) 134/86 (102) Pulse Ox 98 O2 Delivery Room Air Capillary Refill : Less Than 3 Seconds Height, Weight, BMI Height: 6'4.00" Weight: 180lbs. 0.0oz. 81.413503st; 24.84 BMI Method:Stated General Appearance: WD/WN Eyes: Bilateral Eye Normal Inspection, Bilateral Eye PERRL, Bilateral Eye EOMI HEENT: PERRL/EOMI Neck: Normal Inspection, Non Tender, Supple Respiratory: Chest Non Tender, Lungs Clear, Normal Breath Sounds, No Accessory Muscle Use, No Respiratory Distress Cardiovascular: No Edema Gastrointestinal: Normal Bowel Sounds, Distended, Tenderness (Epigastric/right upper) Extremity: Normal Capillary Refill, Non Tender, Other (R BKA, R hand 4 and 5th digit amputation, and L leg big toe amputation) Neurologic/Psychiatric: Alert, Oriented x3 Skin: Normal Color, Warm/Dry Results Results/Procedures Labs Laboratory Tests 11/28/20 14:59 11/29/20 05:48 Patient resulted labs reviewed. Assessment/Plan Assessment and Plan Assess & Plan/Chief Complaint 1. Symptomatic Cholelithiasis -- expected lap dora with Dr. Gann, clear liquid diet, IV fluids, NPO, held aspirin and plavix 2. Hyperglycemia -- current glucose at 80, continue sliding scale insulin and monitor 3. Hypokalemia -- IV potassium 4. PAD -- lovenox for dvt ppx SYLVIA SHRESTHA DO 11/29/20 1955: HPI History of Present Illness: Source: patient Past Xcrzjow-Ncspir-Gwyyyi Hx Patient Social History Marrital Status: Family Medical History Cardiovascular disease 19 FATHER Completed stroke 19 FATHER Diabetes mellitus 19 MOTHER Myocardial infarction 19 FATHER Supervisory-Addendum Brief Verification & Attestation Participated in pt care: history, physical Personally performed: exam, history, supervision of care Care discussed with: Medical Student Procedures: n/a Results interpretation: Verified all documentation Patient seen and examined. He is very groggy and slurred speech so will decrease fentanyl dose. His blood sugar is much improved and surgery is considering sending him home for surgery as an outpatient since he does not have acute cholecystitis and has been on blood thinners. I started lovenox for DVT prophylaxis as he has a history of DVT. If he is discharged home then I recommend bridge with lovenox while holding his plavix and aspirin until surgery. SHARON HENNING Nov 29, 2020 07:48 SYLVIA SHRESTHA DO Nov 29, 2020 19:55
[2020-11-29 08:10] VITALS: BP 122/76
[2020-11-29] MEDS: PANTOPRAZOLE 40 MG (PROTONIX) VIAL IV SCH (08:15)
[2020-11-29] MEDS ORDERED: MILK OF MAGNESIA 400 MG/5 ML 30 ML UDC PO PRN (08:45)
[2020-11-29] MEDS ORDERED: KCL 20 MEQ TAB (K-DUR) PO ONE (08:45)
[2020-11-29] MEDS: SENNA W/DOCUSATE (SENOKOT S) TABLET PO SCH ×2 (08:55→21:31)
[2020-11-29] MEDS: ENOXAPARIN 40 MG/0.4 ML (LOVENOX) SYR SC SCH (08:59)
[2020-11-29] MEDS ORDERED: ATOR10TA66 PO (09:42)
[2020-11-29] MEDS ORDERED: ACHD5005 PO (09:42)
[2020-11-29] MEDS ORDERED: AMIT50TA3 PO (09:42)
[2020-11-29] MEDS ORDERED: RIVA2.5T5 PO (09:42)
[2020-11-29] MEDS: fentaNYL INJ 100 MCG/2 ML AMP IVP PRN ×4 (11:32→21:32)
[2020-11-29 11:36] VITALS: BP 109/59
[2020-11-29 15:37] VITALS: BP 99/58
--- NOTE | 2020-11-29 16:05 | Progress Note ---
Standard Progress Note Progress Notes/Assess & Plan Date Seen by a Provider: Nov 29, 2020 Time Seen by a Provider: 16:00 Progress/Assessment & Plan patient ok with doing surgery as outpatient. lap dora will be scheduled for th(12/06). will restart asa and plavix now and regular diet. will have him hold asa and plavix starting thursday(12/03). Final Diagnosis chronic calculous cholecystitis GIANCARLO OREILLY MD Nov 29, 2020 16:05
[2020-11-29] MEDS ORDERED: HYDR-3817 PO (16:06)
--- NOTE | 2020-11-29 16:08 | Discharge Inst-Surgical ---
D/C Lap Instructions-KIDO New, Converted, or Re-Newed RX: RX on Chart will be scheduled for surgery as OP likely on 12/06. will need to hold asa, plavix, and xeralto on thursday (12/03) low fat diet. Activity as tolerated Avoid Alcohol, Caffeine, Spicy [place] and Acid foods. Drink 64 fluid oz or more of fluids per day. Symptoms to Report: Fever over 101 degree F, Nausea/Vomiting If any problems/questions: Contact your physician or go to Emergency Room GIANCARLO OREILLY MD Nov 29, 2020 16:08
[2020-11-29] MEDS: HYDROcodone/APAP 7.5 MG/325 MG (LORTAB, LORCET PLUS) TABLET PO PRN (18:35)
[2020-11-29 19:39] VITALS: BP 106/69
[2020-11-30 00:03] VITALS: BP 115/61
[2020-11-30] MEDS: fentaNYL INJ 100 MCG/2 ML AMP IVP PRN ×3 (01:09→10:06)
[2020-11-30] MEDS: LACTATED RINGERS 1,000 ML IV SCH (01:10)
[2020-11-30] MEDS: metroNIDAZOLE 500MG/100ML IVPB 100 ML IV SCH (03:08)
[2020-11-30 03:58] VITALS: BP 99/60
[2020-11-30] MEDS: CIPROFLOXACIN 400 MG/D5W 200 ML (PRE-MIX) IV SCH (05:51)
[2020-11-30] MEDS: inSUlin ASPART (NovoLOG) 1 UNIT/0.01 ML (CHARGE PER UNIT) SC SCH ×2 (05:51→12:40)
[2020-11-30 06:08] LABS: HEMATOCRIT 34 % (40-54); HEMOGLOBIN 11.1 g/dL (13.3-17.7); MEAN CORPUSCULAR HEMOGLOBIN 27 pg (25-34); MEAN CORPUSCULAR HGB CONC 33 g/dL (32-36); MEAN CORPUSCULAR VOLUME 83 fL (80-99); MEAN PLATELET VOLUME 10.4 fL (9.0-12.2); PLATELET COUNT 159 10^3/uL (130-400); WHITE BLOOD COUNT 3.4 10^3/uL (4.3-11.0)
[2020-11-30 06:39] LABS: CALCIUM 8.7 MG/DL (8.5-10.1); CREATININE SERUM 0.91 MG/DL (0.60-1.30); POTASSIUM 3.7 MMOL/L (3.6-5.0)
[2020-11-30 08:00] VITALS: BP 133/81
[2020-11-30] MEDS ORDERED: CLOPIDOGREL 75 MG (PLAVIX) TABLET PO SCH (09:00)
[2020-11-30] MEDS ORDERED: ASPIRIN E.C. 81 MG (ECOTRIN) TAB PO SCH (09:00)
--- NOTE | 2020-11-30 09:20 | Progress Note ---
Subjective Subjective Date Seen by Provider: Nov 30, 2020 Time Seen by Provider: 09:00 Follow up for symptomatic cholelithiasis, hyperglycemia, and hypokalemia. Pt reports diffuse abdominal pain. 2 bowel movements yesterday, one normal and the other loose. Eating and drinking fluids and solids. Denies any fever, chills, nausea, vomiting, chest pain or SOB. Potassium level improved to 3.7. Current glucose level at 221. Plans on having lap dora as outpatient with Dr. Gann on 12/06/2020. Objective Exam Vital Signs Vital Signs Date Time Temp Pulse Resp B/P (MAP) Pulse Ox O2 Delivery O2 Flow Rate FiO2 11/30/20 08:00 35.7 85 20 133/81 (98) 97 Room Air 11/30/20 03:58 36.7 91 16 99/60 (73) 96 Room Air 11/30/20 00:03 35.7 88 18 115/61 (79) 95 Room Air 11/29/20 20:00 Room Air 11/29/20 19:39 36.0 93 18 106/69 (81) 96 Room Air 11/29/20 15:37 36.4 80 18 99/58 (72) 95 Room Air 11/29/20 11:36 35.5 82 18 109/59 (76) 99 Room Air I & O 11/30/20 07:00 Intake Total 1790 ml Output Total 825 ml Balance 965 ml General Appearance: No Apparent Distress, WD/WN Eyes: Bilateral Eye Normal Inspection, Bilateral Eye PERRL, Bilateral Eye EOMI HEENT: PERRL/EOMI Neck: Normal Inspection, Non Tender, Supple Respiratory: Chest Non Tender, Lungs Clear, Normal Breath Sounds, No Accessory Muscle Use, No Respiratory Distress Cardiovascular: No Edema Gastrointestinal: Normal Bowel Sounds, Non Tender, Distended Extremity: Normal Capillary Refill, Non Tender, Other (R BKA, R hand 4 and 5th digit amputation, and L leg big toe amputation) Neurologic/Psychiatric: Alert, Oriented x3, Normal Mood/Affect Skin: Normal Color, Warm/Dry Results Lab Laboratory Tests 11/29/20 11:30: Glucometer 106 11/29/20 15:42: Glucometer 121H 11/29/20 20:07: Glucometer 226H 11/30/20 05:36: Glucometer 217H 11/30/20 05:45: White Blood Count 3.4L, Red Blood Count 4.06L, Hemoglobin 11.1L, Hematocrit 34L, Mean Corpuscular Volume 83, Mean Corpuscular Hemoglobin 27, Mean Corpuscular Hemoglobin Concent 33, Red Cell Distribution Width 14.5, Platelet Count 159, Mean Platelet Volume 10.4, Sodium Level 137, Potassium Level 3.7, Chloride Level 105, Carbon Dioxide Level 22, Anion Gap 10, Blood Urea Nitrogen 5L, Creatinine 0.91, Estimat Glomerular Filtration Rate 85, BUN/Creatinine Ratio 5, Glucose Level 221H, Calcium Level 8.7 Microbiology 11/28/20 MRSA Screen - Final, Complete MRSA not isolated Assessment/Plan Assessment/Plan Assessment and Plan 1. Symptomatic Cholelithiasis -- outpatient lap dora with Dr. Gann on 12/06/2020, hold Plavix and aspirin with lovenox bridge until surgery, avoid fatty and greasy foods 2. Hyperglycemia -- current glucose at 221, will send home on metformin 1000mg BID 3. Hypokalemia -- resolved 4. PAD Supervisory-Addendum Brief Verification & Attestation Participated in pt care: history, physical Personally performed: exam, history, supervision of care Care discussed with: Medical Student Procedures: n/a Results interpretation: Verified all documentation Patient seen and examined and I discussed case with Dr. Gann. He will be disc harged home with planned outpatient lap dora on 12/06/20. He will stop plavix, aspirin and xarelto on 12/01/20 and bridge with lovenox 40mg daily through 06/05/20 and resume his plavix, aspirin and xarelto on 06/07/20. He is instructed on strict low fat diet. He is also instructed to cancel his epidural on 12/03/20 for his cervical spine and reschedule this for after his lap dora. SHARON HENNING Nov 30, 2020 09:20 SYLVIA MARIA DO Nov 30, 2020 10:18
[2020-11-30] MEDS ORDERED: ENOX40DI8 SQ (09:39)
[2020-11-30] MEDS ORDERED: SITA100T12 PO (09:47)
[2020-11-30] MEDS: PANTOPRAZOLE 40 MG (PROTONIX) VIAL IV SCH (09:48)
[2020-11-30] MEDS: HYDROcodone/APAP 7.5 MG/325 MG (LORTAB, LORCET PLUS) TABLET PO PRN (09:49)
[2020-11-30] MEDS: SENNA W/DOCUSATE (SENOKOT S) TABLET PO SCH (09:49)
--- NOTE | 2020-11-30 09:54 | Discharge Summary ---
Diagnosis/Chief Complaint Date of Admission Nov 28, 2020 at 17:10 Date of Discharge Discharge Date: Nov 30, 2020 Discharge Diagnosis 1. Symptomatic Cholelithiasis 2. Diabetes mellitus II with hyperglycemia 3. Peripheral Arterial Disease 4. Right Below Knee Amputation due to Osteomyelitis and nonhealing wounds of foot due to PAD 5. Hypokalemia--resolved 6. Dehydration--resolved 7. Recent Kyphoplasty for T12 Compression Fracture 8. Cervical Radiculopathy with pending epidural--told patient that he needed to postpone epidural which is scheduled for 12/03/20 since he has surgery on 12/06/20 Discharge Summary Hospital Course Was the Problem List Reviewed?: Yes Hospital Course This is a 60 year old male who has a known history of diabetes mellitus II and noted that his blood sugar had spiked up to 400 recently. He had a recent kyphoplasty so it was felt that his elevated blood sugars could be a postprocedural spike. However, he then started having abdominal pain so he presented to the emergency room and was found to have cholelithiasis with early dehydration and elevated blood sugar of 419. The patient was admitted to the medical floor with surgical consult. He was given aggressive IVF rehydration and started on levemir for his blood sugar. By the following day, his blood sugar was down to 80. He was asking for fentanyl 50mg every 2hrs for pain control and was very groggy with slurred speech on exam. The fentanyl dose was decreased to 25mg. Surgery decided that due to his gallbladder not being acutely inflamed and the fact that he had been on 3 different blood thinners--plavix, aspirin and Xarelto that he could be sent home and schedule his surgery as an outpatient so he could hold his blood thinners in preparation for surgery. He was started on a regular diet and tolerated this with no increase in his pain. His blood sugar did come up to 200 after his diet was resumed so he will restart his metformin on discharge since he is 48hrs post IV contrast. I will also add Januvia on discharge for blood sugar control. He will be discharged home on a low fat diet. He will stop his plavix, aspirin, and xarelto starting 12/01/20 and be bridged with lovenox 40mg sc daily through 12/05/20. He may resume his plavix, aspirin and xarelto the day after surgery--12/07/20. He was supposed to have an epidural injection in his cervical spine on 12/03/20 but he will call and cancel that procedure and reschedule for after his lap dora. He will follow up with me in 3 weeks which will be 2 weeks postop. Labs Laboratory Tests 11/28/20 14:59: Sodium Level 132L, Carbon Dioxide Level 20L, Glucose Level 419*H, C-Reactive Protein High Sensitivity 0.81H 11/28/20 15:00: Glucometer 416*H 11/28/20 21:54: Glucometer 305H 11/29/20 01:53: Urine Glucose (UA) 3+H 11/29/20 05:00: 11/29/20 05:48: Hemoglobin 11.9L, Hematocrit 36L, Potassium Level 3.2L 11/29/20 11:30: 11/29/20 15:42: Glucometer 121H 11/29/20 20:07: Glucometer 226H 11/30/20 05:36: Glucometer 217H 11/30/20 05:45: White Blood Count 3.4L, Red Blood Count 4.06L, Hemoglobin 11.1L, Hematocrit 34L, Blood Urea Nitrogen 5L, Glucose Level 221H Procedures None. Consultations Surgery--Dr. Gann Discharge Physical Examination Allergies: Coded Allergies: No Known Drug Allergies (Unverified , 11/28/20) Vitals & I&Os Vital Signs Date Time Temp Pulse Resp B/P (MAP) Pulse Ox O2 Delivery O2 Flow Rate FiO2 11/30/20 08:00 35.7 85 20 133/81 (98) 97 Room Air General Appearance: Alert, Oriented X3, Cooperative, No Acute Distress Respiratory: Clear to Auscultation Cardiovascular: Regular Rate Abdominal: Normal Bowel Sounds, Soft, Other (RUQ tenderness) Extremities: No Clubbing, No Cyanosis, No Edema, Other (Right BKA) Neuro: Normal Speech Psych/Mental Status: Mental Status NL Discharge Home Medications Reviewed and agree with Discharge Medication list on patient's Discharge Instruction sheet Instructions to Patient/Family Please see electronic discharge instructions given to patient. SYLVIA MARIA DO Nov 30, 2020 09:54
[2020-11-30] MEDS: ENOXAPARIN 40 MG/0.4 ML (LOVENOX) SYR SC SCH (10:18)
[2020-11-30 13:21] VITALS: BP 133/81
== END 2020-11-30 13:00 | disposition home or self-care (01) | DRG 638 ==
LOC: EDUNIT# 14:52 → ER 14:53 → 4TH 17:10
PROVIDERS: ADMIT Family Medicine; ATTEND Family Medicine
DX: E11.65 Type 2 diabetes mellitus with hyperglycemia (principal); K80.10 Calculus of gallbladder with chronic cholecystitis without obstruction; E86.0 Dehydration; E11.51 Type 2 diabetes mellitus with diabetic peripheral angiopathy without gangrene; Z89.511 Acquired absence of right leg below knee; Z89.021 Acquired absence of right finger(s); E78.00 Pure hypercholesterolemia, unspecified; Z86.718 Personal history of other venous thrombosis and embolism; Z95.1 Presence of aortocoronary bypass graft; E11.40 Type 2 diabetes mellitus with diabetic neuropathy, unspecified; F17.210 Nicotine dependence, cigarettes, uncomplicated; Z79.82 Long term (current) use of aspirin; Z79.84 Long term (current) use of oral hypoglycemic drugs; Z79.899 Other long term (current) drug therapy; Z88.0 Allergy status to penicillin; K21.9 Gastro-esophageal reflux disease without esophagitis; E87.6 Hypokalemia
CPT/HCPCS: 36415; 71045; 74177; 76705; 80048; 80053; 81000; 82010; 82947; 83690; 85025; 85027; 86141; 87081; 93978

== ENCOUNTER 2020-12-04 10:42 | Outpatient (CLI) | payer BC ==
[~2020-12-04] VITALS: Ht 190.5 cm; Wt 81.7 kg
[~2020-12-04 10:42] MED LIST changes: +AMIT50TA3 PO; +ATOR10TA66 PO; +ENOX40DI8 SQ; +RIVA2.5T5 PO; +SITA100T12 PO
[2020-12-04] MEDS ORDERED: SITA100T12 PO (13:20)
[2020-12-04] MEDS ORDERED: METF-397 PO (13:20)
[2020-12-04] MEDS ORDERED: RIVA2.5T5 PO (13:20)
== END 2020-12-04 13:50 | disposition home or self-care (01) ==
LOC: PREOP 10:42
PROVIDERS: ATTEND Surgery
DX: Z01.818 Encounter for other preprocedural examination (principal)

== ENCOUNTER 2020-12-06 10:57 | Day surgery (SDC) | payer BC ==
[~2020-12-06] VITALS: Ht 190.5 cm; Wt 81.7 kg
[2020-12-06] VITALS (14 sets, daily range): BP systolic 118–200; BP diastolic 65–113
[~2020-12-06 10:57] MED LIST changes: +METF-397 PO
[2020-12-06] MEDS ORDERED: LACTATED RINGERS 1,000 ML IV PRN (11:15)
[2020-12-06] MEDS ORDERED: ceFAZolin 2 GM IV Premixed 50 ML IV ONE (11:15)
[2020-12-06] MEDS ORDERED: HYDR-3817 PO (11:36)
--- NOTE | 2020-12-06 11:37 | Discharge Inst-Surgical ---
D/C Lap Instructions-KIDO Reconcile Patient Problems Problems Reviewed?: Yes New, Converted, or Re-Newed RX: RX on Chart Follow Up Appt in 2 weeks Activity as tolerated No driving for 24 hours No driving while on pain medications Incentive Spirometry use every 2 hours while awake Regular Diet Symptoms to Report: Fever over 101 degree F, Nausea/Vomiting Infection Signs and Symptoms to report: Increased redness, Foul odor of wound, Increased drainage Bathing instructions: May shower Operative Area Clean/Dry; Keep incision clean/dry If any problems/questions: Contact your physician or go to Emergency Room SALMA ESTEVES APRN Dec 06, 2020 11:37
--- NOTE | 2020-12-06 11:38 | Progress Note-Pre Operative ---
Pre-Operative Progress Note H&P Reviewed The H&P was reviewed, patient examined and no changes noted. Date Seen by Provider: Dec 06, 2020 Time Seen by Provider: 11:35 Date H&P Reviewed: Dec 06, 2020 Time H&P Reviewed: 11:30 Pre-Operative Diagnosis: Chronic calculous cholecystitis SALMA ESTEVES APRN Dec 06, 2020 11:37
[2020-12-06] MEDS ORDERED: morphine INJ 10 MG/ML 1ML (SYR OR VIAL) IVP PRN (11:45)
[2020-12-06] MEDS ORDERED: ONDANSETRON 4 MG/2 ML (SDV) Z0FRAN IVP PRN ×2 (11:45→15:15)
[2020-12-06] MEDS ORDERED: ACETAMINOPHEN 325 MG TABLET PO PRN (11:45)
[2020-12-06] MEDS ORDERED: HYDROcodone/APAP 5 MG/325 MG (LORTAB) TAB PO ONE (11:45)
[2020-12-06] MEDS ORDERED: MIDAZOLAM 2 MG/2 ML (VERSED) VIAL ONE (12:41)
[2020-12-06] MEDS ORDERED: SEVOFLURANE (ULTANE) 15 ML INHAL SOLN ONE ×3 (12:41→15:04)
[2020-12-06] MEDS ORDERED: proPOfol 200 MG/20 ML (DIPRIVAN) VIAL IV ONE (12:41)
[2020-12-06] MEDS ORDERED: fentaNYL INJ 100 MCG/2 ML AMP ONE (12:41)
[2020-12-06] MEDS ORDERED: ROCURONIUM 10 MG/ML 5 ML SYRINGE IV ONE (12:41)
[2020-12-06] MEDS ORDERED: LIDOCAINE PF 2% 5 ML (XYLOCAINE) VIAL ONE (12:41)
[2020-12-06] MEDS ORDERED: LIDOCAINE/EPI 1%-1:200,000 (XYLOCAINE) 30 ML VIAL ONE (12:57)
[2020-12-06] MEDS ORDERED: PHENYLEPHRINE 100 MCG/ML 10 ML (ANESTHESIA) SYR ONE (14:15)
[2020-12-06] MEDS ORDERED: morphine INJ 10 MG/ML 1ML (SYR OR VIAL) ONE (14:33)
[2020-12-06] MEDS ORDERED: GLYCOPYRROLATE 0.2 MG/ML (ROBINUL) 2 ML VIAL ONE (15:02)
[2020-12-06] MEDS ORDERED: NEOSTIGMINE 3 MG/3 ML VIAL ONE (15:02)
[2020-12-06] MEDS ORDERED: meTOprolol 5 MG/5 ML (LOPRESSOR) VIAL ONE ×2 (15:05→16:12)
--- NOTE | 2020-12-06 15:06 | Progress Note-Post Operative ---
Post-Operative Progess Note Surgeon (s)/Slaughterer Religious Ritual (s) Surgeon GIANCARLO OREILLY MD Slaughterer Religious Ritual: raghu butler INTENSIVE CARE NURSE Pre-Operative Diagnosis Chronic calculous cholecystitis Post-Operative Diagnosis same Procedure & Operative Findings Date of Procedure 12/06/20 Procedure Performed/Findings laparoscopic cholecystectomy Anesthesia Type get Estimated Blood Loss Estimated blood loss (mL): minimal Specimens/Packing Specimens Removed gallbladder GIANCARLO OREILLY MD Dec 06, 2020 15:06
[2020-12-06] MEDS ORDERED: fentaNYL INJ 100 MCG/2 ML AMP IVP ONE (15:15)
[2020-12-06] MEDS ORDERED: morphine INJ 10 MG/ML 1ML (SYR OR VIAL) IVP ONE (15:15)
[2020-12-06] MEDS ORDERED: MEPERIDINE (DEMEROL) INJ 50 MG/ML IVP ONE (15:15)
--- NOTE | 2020-12-06 15:16 | Anesthesia-General Post-Op ---
General Patient Condition Mental Status/LOC: Same as Preop Cardiovascular: Satisfactory Nausea/Vomiting: Absent Respiratory: Satisfactory Pain: Controlled Complications: Absent Post Op Complications Complications None Follow Up Care/Instructions Patient Instructions None needed. Anesthesia/Patient Condition Patient Condition Patient is doing well, no complaints, stable vital signs, no apparent adverse anesthesia problems. No complications reported per nursing. KELVIN PATE CRNA Dec 06, 2020 15:16
[2020-12-06] MEDS ORDERED: meTOprolol 5 MG/5 ML (LOPRESSOR) VIAL IV ONE (16:15)
--- NOTE | 2020-12-06 22:05 | OPERATIVE REPORT ---
DATE OF SERVICE: 12/06/2020 ATTENDING PRIMARY CARE PHYSICIAN: Dr. Janneth Shrestha. PREOPERATIVE DIAGNOSIS: Symptomatic chronic calculous cholecystitis. POSTOPERATIVE DIAGNOSIS: Symptomatic chronic calculous cholecystitis. PROCEDURE: Laparoscopic cholecystectomy. SURGEON: Giancarlo Oreilly MD. ANESTHESIA: General endotracheal. ESTIMATED BLOOD LOSS: Minimal. FINDINGS: Symptomatic chronic calculous cholecystitis. DISPOSITION: The patient tolerated the procedure well. INDICATIONS: The patient is a 60-year-old male who presented with right upper abdominal quadrant pain. He was found to be hyperglycemic with a glucose of 419. A CT scan was performed, which did show gallbladder thickening as well as multiple gallstones. Ultrasound confirmed this. He also has severe peripheral vascular disease and is on a number of different anticoagulants. Once medically stabilized, it was decided to proceed with bridging him with Lovenox injections and schedule him for an outpatient cholecystectomy. DESCRIPTION OF PROCEDURE: The patient was brought to the operating room, laid supine on the table. After adequate IV pain and sedative medications and general endotracheal intubation, the abdomen was prepped and draped in standard surgical fashion. A 0.5% Marcaine with epinephrine was used to anesthetize the overlying skin in the left upper abdominal quadrant. A transverse skin incision made using 15 blade. An 0 silk suture was applied to the medial aspect of the incision for retraction and a Veress needle inserted with a low opening pressure of 0 mmHg and the abdomen was then insufflated to 15 mmHg pressure. The Veress needle removed and a 5 mm XL trocar placed followed by a 5 mm 45-degree angle laparoscope visualizing the peritoneal cavity. A 4-quadrant abdominal exploration was performed. A silk suture was applied to the medial aspect of the incision for retraction and a Veress needle inserted with low opening pressure of 0 mmHg. The abdomen was insufflated to 15 mmHg pressure. The Veress needle removed and a 5 mm XL trocar placed followed by a 5 mm 45-degree angle laparoscope visualizing the peritoneal cavity. A 4-quadrant abdominal exploration was performed. There was mild gallbladder wall thickening as well as gallbladder distention. Under direct visualization, we then proceeded to place a supraumbilical 10 mm port after the skin and peritoneal lining were anesthetized using 0.5% Marcaine with epinephrine and a transverse skin incision made using 15 blade. In a similar manner, a right upper abdominal quadrant 5 mm port was placed. The omental adhesions were then taken down using electrocautery. The fundus of the gallbladder was then retracted anteriorly and superiorly. The gallbladder was extremely distended and somewhat decompressed with laparoscopic aspiration needle and suction. The fundus of the gallbladder was then retracted anteriorly and superiorly. The patient was then placed in reverse Trendelenburg position as well as plane right side up, left side down. The hepatoduodenal ligament was then dissected using blunt dissection as well as a [place] dissector. The entire critical view of safety was identified including the triangle of Calot as well as the cystic duct and artery as the only two structures going into the gallbladder as well as the cystic plate behind the proximal gallbladder. A timeout was then taken and the cystic duct and artery were then clipped proximally, distally and cut with EndoShears. The gallbladder was then dissected off the liver bed using electrocautery and hook instrument with visualization of good hemostasis as well as no leaking ducts of Luschka. The gallbladder was removed through the 10 mm port site using an EndoCatch bag. The 10 mm port site fascia and peritoneum were then closed under direct visualization using a Dereje-Richie device and 0 Vicryl suture. The abdomen was desufflated and remaining ports were removed. All skin incisions were closed using 4-0 Monocryl running subcuticular sutures. Wounds were then cleaned and covered with Dermabond. The patient tolerated the procedure well. We will start IV normal pain medication as well as a clear liquid diet. Once he is tolerating clears, has good pain control with oral pain medications, ambulating well, we will discharge him home. He will be instructed to do no heavy lifting or exertion for the next two weeks. He may also start his previous regimen of anticoagulants starting tomorrow. Job ID: [id number] DocumentID: [id number] Dictated Date: 12/06/2020 15:16:05 C Java Developer Date: 12/06/2020 22:04:40 Dictated By: GIANCARLO OREILLY MD
== END 2020-12-06 17:35 | disposition home or self-care (01) ==
LOC: SDC 10:57
PROVIDERS: ATTEND Surgery
DX: K80.10 Calculus of gallbladder with chronic cholecystitis without obstruction (principal); I10 Essential (primary) hypertension; E11.42 Type 2 diabetes mellitus with diabetic polyneuropathy; I73.9 Peripheral vascular disease, unspecified; I25.10 Atherosclerotic heart disease of native coronary artery without angina pectoris; K21.9 Gastro-esophageal reflux disease without esophagitis; Z95.1 Presence of aortocoronary bypass graft; Z95.5 Presence of coronary angioplasty implant and graft; Z86.718 Personal history of other venous thrombosis and embolism; Z89.021 Acquired absence of right finger(s); Z88.0 Allergy status to penicillin; Z88.1 Allergy status to other antibiotic agents; Z79.82 Long term (current) use of aspirin; Z79.899 Other long term (current) drug therapy; Z79.02 Long term (current) use of antithrombotics/antiplatelets; Z87.891 Personal history of nicotine dependence; Z79.84 Long term (current) use of oral hypoglycemic drugs
CPT/HCPCS: 82947; 87081

== ENCOUNTER 2021-02-20 20:12 | Emergency (ER) | payer OTHER ==
[~2021-02-20] VITALS: Ht 188 cm; Wt 88.0 kg
[~2021-02-20 20:12] MED LIST changes: -AMIO200T6 PO; +AMIO200T65 PO; +CLIN-144 PO; -CLIN300C12 PO; +CYCL10TA25 PO; -CYCL10TA9 PO
[2021-02-20] MEDS ORDERED: methylPREDNISolone 40 MG/ML (DEPO MEDROL) VIAL IM ONE (20:30)
[2021-02-20] MEDS ORDERED: BUPIVACAINE 0.5% 30 ML (SENSORCAINE) VIAL INJ ONE (20:30)
--- NOTE | 2021-02-20 20:55 | ED Back Pain ---
General Chief Complaint: Back Problems Stated Complaint: NECK PAIN Nursing Triage Note: PT AMB TO ED BY POV WITH C/O NECK PAIN. PT REPORTS CHRONIC NECK PAIN ON L SIDE OF HIS NECK THAT HE HAS BEEN WORKING WITH DR. CRAVEN ON. PT REPORTS TAKING HYDROCODONE Q 6 HRS, STARTED PRESCRIBED STEROIDS THIS MORNING. PT ALSO REPORTS HE HAS HAD A COUGH FOR THE LAST COUPLE OF DAYS. DENIES SOB, FEVER, N/V/D. Source of Information: Patient Exam Limitations: No Limitations History of Present Illness Date Seen by Provider: Feb 20, 2021 Time Seen by Provider: 20:21 Initial Comments Patient presents ER by private conveyance with his significant other chief complaint that for the past couple weeks he has had a pinched nerve in the left side of his neck. He had this nerve off and on because pain for the past several years. He has been using hydrocodone 10 x 325 without improvement of the symptoms. He went to Thomas Craven's nurse practitioner today and was given oral steroids. He has a history of diabetes. He does not take NSAIDs because of his Eliquis use. He is not having any numbness or pain going beyond his left trapezius. He has had it worked on before and has had imaging of his neck and back both CT and MRI. He is not any worse than usual. No new trauma. He also notes for the last couple days has had a cold and would like to be tested for Covid and influenza. Allergies and Home Medications Allergies Coded Allergies: Penicillins (Unverified Allergy, Unknown, 12/06/20) cefaclor (Unverified Allergy, Unknown, 12/06/20) Patient Home Medication List Home Medication List Reviewed: Yes Amitriptyline HCl (Amitriptyline HCl) 50 Mg Tablet, 50 MG PO HS, (Reported) Entered as Reported by: JANETTE GAMBOA on 11/29/20 09 Atorvastatin Calcium (Atorvastatin Calcium) 10 Mg Tablet, 10 MG PO DAILY, (Reported) Entered as Reported by: JANETTE GAMBOA on 11/29/20 09 Cilostazol (Cilostazol) 50 Mg Tablet, 50 MG PO BID, (Reported) Entered as Reported by: GUILLERMINA THORPE on 02/18/20 1847 Cyclobenzaprine HCl (Cyclobenzaprine HCl) 10 Mg Tablet, 10 MG PO HS, (Reported) Entered as Reported by: GUILLERMINA THORPE on 02/18/20 1856 Hydrocodone/Acetaminophen (Hydrocodone-Acetamin 7.5-325) 1 Each Tablet, 1 EACH PO Q4H Prescribed by: GIANCARLO OREILLY on 11/29/20 1606 Hydrocodone/Acetaminophen (Hydrocodone-Acetamin 7.5-325) 1 Each Tablet, 1 EACH PO Q4H PRN for PAIN-BREAKTHROUGH Prescribed by: SALMA ESTEVES on 12/06/20 1136 Metformin HCl (Metformin HCl) 500 Mg Tablet, 500 MG PO BID, (Reported) Entered as Reported by: KAJAL ERIC on 12/04/20 1320 Metoprolol Succinate (Metoprolol Succinate) 50 Mg Tab.er.24h, 50 MG PO DAILY, (Reported) Entered as Reported by: YESENIA ANDREWS on 08/07/19 1612 Pantoprazole Sodium (Pantoprazole Sodium) 40 Mg Tablet.dr, 40 MG PO DAILY, (Reported) Entered as Reported by: GUILLERMINA THORPE on 02/18/20 185 Rivaroxaban (Xarelto) 2.5 Mg Tablet, 2.5 MG PO BID, (Reported) Entered as Reported by: KAJAL ERIC on 12/04/20 132 Sitagliptin Phosphate (Januvia) 100 Mg Tablet, 100 MG PO DAILY, (Reported) Entered as Reported by: KAJAL ERIC on 12/04/20 1320 Review of Systems Constitutional: No chills, No diaphoresis EENTM: No ear discharge, No ear pain Respiratory: cough; No dyspnea on exertion; phlegm; No short of breath, No wheezing Cardiovascular: No chest pain, No palpitations Gastrointestinal: No abdominal pain, No nausea, No vomiting Genitourinary: No discharge, No dysuria Musculoskeletal: see HPI; No back pain; muscle pain, muscle stiffness, neck pain All Other Systems Reviewed Negative Unless Noted: Yes Past Lwpmohj-Blfpig-Byomzu Hx Patient Social History Tobacco Use?: No Use of E-Cig and/or Vaping dev: No Substance use?: No Alcohol Use?: No Pt feels they are or have been: No Immunizations Up To Date Tetanus Booster (TDap): Unknown PED Vaccines UTD: Yes Influenza Vaccine Up-to-Date: No; Not Current First/Initial COVID19 Vaccinat: 07/17/2020 Second COVID19 Vaccination Edson: 08/13/2020 Third COVID19 Vaccination Date: 07/17/2020 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 pmh: peripheral vasc disease, dvt, blood clots, dm, high chol. Surgeries: Yes (R FINGER AMPUTATION, ING HERNIA X2, AORTIC STENT, LEG BYPASS) Abdominal, CABG, Coronary Stent, Orthopedic, Vascular Surgery Respiratory: No Currently Using CPAP: No Currently Using BIPAP: No Cardiac: Yes (HISTORY OF DVT) Coronary Artery Disease, Deep Vein Thrombosis, Peripheral Vascular Neurological: No Neuropathy Sexually Transmitted Disease: No HIV/AIDS: No Genitourinary: No Gastrointestinal: Yes Chronic Constipation Musculoskeletal: Yes (RIGHT SECOND FINGER AMP.) Amputee Endocrine: No HEENT: Yes (WEARS GLASSES) Loss of Vision: Denies Hearing Impairment: Denies Cancer: No Psychosocial: No Sleep Difficulties, Suicide Attempts Integumentary: No Blood Disorders: No Adverse Reaction/Blood Tranf: No (N/A) Family Medical History Cardiovascular disease 19 FATHER Completed stroke 19 FATHER Diabetes mellitus 19 MOTHER Myocardial infarction 19 FATHER No Pertinent Family Hx Physical Exam Vital Signs Vital Signs - First Documented 02/20/21 20:20 Temp 36.8 Pulse 118 Resp 18 B/P (MAP) 142/88 (106) Pulse Ox 97 O2 Delivery Room Air Capillary Refill : Less Than 3 Seconds Height, Weight, BMI Height: 6'4.00" Weight: 180lbs. 0.0oz. 81.534273py; 24.00 BMI Method:Stated General Appearance: No Apparent Distress, WD/WN HEENT: PERRL/EOMI, TMs Normal, Normal ENT Inspection, Pharynx Normal, Moist Mucous Membranes Neck: Full Range of Motion, Normal Inspection, Tender Lateral (Tender lateral around C5-C7 into the left trapezius with some trigger point tenderness.) Cardiovascular: Regular Rate, Rhythm, No Edema, Normal Peripheral Pulses Respiratory: Lungs Clear, Normal Breath Sounds, No Accessory Muscle Use, No Respiratory Distress, Decreased Breath Sounds Procedures/Interventions Progress Trigger point injection was given in his left trapezius at the point of maximal tenderness. Clean skin with alcohol and using Z track method and aspiration we used a 25-gauge 1-1/2 inch needle to inject 1/2 cc of lidocaine 1%, 1 cc of Marcaine half percent without epinephrine and 1cc Depo-Medrol 40 mg/mL in and around the area. Patient tolerated procedure well. A clean sterile bandage was placed. Progress/Results/Core Measures Results/Orders Lab Results Laboratory Tests Test 02/20/21 20:30 Range/Units Influenza Type A Antigen NEGATIVE NEGATIVE Influenza Type B Antigen NEGATIVE NEGATIVE SARS-CoV-2 RNA (RT-PCR) Positive H Negative My Orders Orders - ROOSEVELT JOHNSTON Covid 19 Inhouse Test (02/20/21 20:30) Influenza A & B Antigens (02/20/21 20:30) Methylprednisolone Acetate Inj (Depo-Med (02/20/21 20:30) Bupivacaine 0.5% Injection (Sensorcaine (02/20/21 20:30) Medications Given in ED Current Medications Medications Dose Ordered Sig/Marilee Route Start Time Stop Time Status Last Admin Dose Admin Bupivacaine HCl 30 ml ONCE ONCE INJ 02/20/21 20:30 02/20/21 20:33 DC 02/20/21 21:12 30 ML Methylprednisolone Acetate 40 mg ONCE ONCE IM 02/20/21 20:30 02/20/21 20:33 DC 02/20/21 21:11 40 MG Vital Signs/I&O 02/20/21 20:20 Temp 36.8 Pulse 118 Resp 18 B/P (MAP) 142/88 (106) Pulse Ox 97 O2 Delivery Room Air Blood Pressure Mean: 106 Progress Progress Note #1: Time: 20:53 Progress Note Offered to hold prednisone and gave her an injection of Depo-Medrol, Marcaine and lidocaine in his trapezius muscle. Patient is okay with this. We will give him a swab for Covid and influenza. He has aseptic vital signs, clear but diminished lung sounds and no evidence of any acute distress. Progress Note #2: Time: 21:22 Progress Note With a history of COPD, diabetes and COVID-19 we discussed not, bodies and their authorization under emergency use authorization by the FDA. We discussed risks, benefits and alternatives. Patient has elected to pursue them if possible although Sotrovimab is currently locally on severe shortage and he will be put in the queue. Patient does not require steroids at this time. We will provide him with some basic symptomatic support and go from there. Return precautions were discussed Departure Impression Primary Impression: Radiculopathy, cervical Additional Impression: COVID-19 Disposition: 01 HOME, SELF-CARE Condition: Stable Departure-Patient Inst. Decision time for Depature: 21:24 Referrals: SYLVIA MARIA DO (PCP/Family) Primary Care Physician Patient Instructions: COVID-19 ED, Sotrovimab FDA Fact Sheet Add. Discharge Instructions: Drink plenty fluids. Humidifiers and vapor rubs are recommended. Cough medicine such as Robitussin or Mucinex. Nasal decongestants can be helpful. Tylenol 1000 mg every 8 hours necessary for body aches fever chills. You are a good candidate for Sotrovimab however there is a national shortage. If we aquire doses in time we will have outpatient center call you and schedule an injection. If you have oxygen saturations below 90% while at rest then you need to return to the ER. Zofran 1 tablet every 6 hours as necessary for nausea or vomiting. Do not take the prednisone/steroid as prescribed by your primary care doctor as we gave you a steroid today that will last for about 5 to 7 days. Tessalon Perles 1 capsule every 6 hours as necessary for cough. Stay home for the next 5 days. Wear a mask around other people and wash your hands frequently. If you are fever free for the last 24 hours without any medications to mask a fever then you are okay to leave your house however you still need to wear a mask for an additional 5 days. All discharge instructions reviewed with patient and/or family. Voiced understanding. Scripts Ondansetron (Ondansetron Odt) 4 Mg Tab.rapdis 4 MG PO Q6H PRN for NAUSEA/VOMITING, #8 TAB 0 Refills Prov: ROOSEVELT JOHNSTON 02/20/21 Benzonatate (TESSALON PERLES) 100 Mg Capsule 100 MG PO Q6H PRN for COUGH for 7 Days, #30 CAP 0 Refills Prov: ROOSEVELT JOHNSTON 02/20/21 Work/School Note: Work Release Form Date Seen in the Emergency Department: Feb 20, 2021 Return to Work: Feb 26, 2021 Restrictions: Return-No Fever (24hrs) Other Restrictions Listed Below: Off quarantine if fever free last 24 hours ROOSEVELT JOHNSTON Feb 20, 2021 20:55
[2021-02-20] MEDS ORDERED: BENZ100C18 PO (21:29)
[2021-02-20] MEDS ORDERED: ONDA4TAB11 PO (21:29)
[2021-02-20 21:58] VITALS: BP 133/92
== END 2021-02-20 21:58 | disposition home or self-care (01) ==
LOC: EDUNIT# 20:12 → ER 20:14
DX: M54.12 Radiculopathy, cervical region (principal); U07.1 COVID-19; I25.10 Atherosclerotic heart disease of native coronary artery without angina pectoris; E78.00 Pure hypercholesterolemia, unspecified; E11.9 Type 2 diabetes mellitus without complications; Z86.718 Personal history of other venous thrombosis and embolism; Z79.01 Long term (current) use of anticoagulants; Z79.899 Other long term (current) drug therapy
CPT/HCPCS: 87636; 87804; 99284

== ENCOUNTER 2021-02-22 10:57 | Outpatient (CLI) | payer OTHER ==
[~2021-02-22] VITALS: Ht 190.5 cm; Wt 87.5 kg
[~2021-02-22 10:57] MED LIST changes: +BENZ100C18 PO; +ONDA4TAB11 PO
[2021-02-22] MEDS ORDERED: diphenhydrAMINE 50 MG/ML INJ (BENADRYL) IV PRN (11:15)
[2021-02-22] MEDS ORDERED: ACETAMINOPHEN 500 MG TAB (TYLENOL) PO PRN (11:15)
[2021-02-22] MEDS ORDERED: ONDANSETRON 4 MG/2 ML (SDV) Z0FRAN IV PRN (11:15)
[2021-02-22] MEDS ORDERED: BAMLANIVIMAB 700 MG/ETESEVIMAB 1,400 MG IN NS IV ONE ×3 (11:15)
[2021-02-22] MEDS ORDERED: EPINEPHrine INJECTION 1 MG/ML AMP IM PRN (11:15)
[2021-02-22 12:49] VITALS: BP 149/79
== END 2021-02-22 13:21 ==
LOC: INFUSION 10:57
PROVIDERS: ATTEND Nurse Practitioner Family
DX: U07.1 COVID-19 (principal)

== ENCOUNTER → 2021-08-07 | Outpatient (CLI) | payer BC, OTHER | LOC: RAD 15:57 | PROVIDERS: ATTEND Nurse Practitioner Family | DX: D64.9 Anemia, unspecified (principal) | CPT/HCPCS: 36415; 85007; 85027; 85045; 85055 ==

== ENCOUNTER → 2021-08-07 | Outpatient (CLI) | payer BC ==
[2021-08-07 17:05] LABS: ABSOLUTE RETIC # 50 10e9/uL (24-90); BASOPHILS # (AUTO) 0.1 10^3/uL (0.0-0.1); BASOPHILS % (AUTO) 1 % (0-10); EOSINOPHILS # (AUTO) 0.4 10^3/uL (0.0-0.3); EOSINOPHILS % (AUTO) 5 % (0-10); HEMATOCRIT 39 % (40-54); HEMOGLOBIN 12.8 g/dL (13.3-17.7); LYMPHOCYTES # (AUTO) 1.8 10^3/uL (1.0-4.0); LYMPHOCYTES % (AUTO) 22 % (12-44); MEAN CORPUSCULAR HEMOGLOBIN 29 pg (25-34); MEAN CORPUSCULAR HGB CONC 33 g/dL (32-36); MEAN CORPUSCULAR VOLUME 86 fL (80-99); MEAN PLATELET VOLUME 10.9 fL (9.0-12.2); MONOCYTES # (AUTO) 0.6 10^3/uL (0.0-1.0); MONOCYTES % (AUTO) 7 % (0-12); NEUTROPHILS # (AUTO) 5.3 10^3/uL (1.8-7.8); NEUTROPHILS % (AUTO) 65 % (42-75); PLATELET COUNT 229 10^3/uL (130-400); RETICULOCYTE % 1.12 % (0.50-2.40); WHITE BLOOD COUNT 8.1 10^3/uL (4.3-11.0)
[2021-08-07 17:50] LABS: EOSINOPHILS % (MANUAL) 3 %; LYMPHOCYTES % (MANUAL) 27 %; MONOCYTES % (MANUAL) 4 %; NEUTROPHILS % (MANUAL) 66 %; RBC MORPH NORMAL
== END ==
LOC: LABNPT 15:57
PROVIDERS: ATTEND Internal Medicine
DX: D64.9 Anemia, unspecified (principal)
CPT/HCPCS: 36415; 85007; 85027; 85045; 85055

== ENCOUNTER 2021-09-25 00:01 | Emergency (ER) | payer BC, OTHER ==
[~2021-09-25] VITALS: Ht 193 cm; Wt 80.1 kg
[2021-09-25 00:29] LABS: BASOPHILS % (AUTO) 0 % (0-10); EOSINOPHILS # (AUTO) 0.2 10^3/uL (0.0-0.3); EOSINOPHILS % (AUTO) 3 % (0-10); HEMATOCRIT 42 % (40-54); LYMPHOCYTES # (AUTO) 1.9 10^3/uL (1.0-4.0); LYMPHOCYTES % (AUTO) 24 % (12-44); MEAN CORPUSCULAR HEMOGLOBIN 28 pg (25-34); MEAN CORPUSCULAR HGB CONC 34 g/dL (32-36); MEAN CORPUSCULAR VOLUME 84 fL (80-99); MEAN PLATELET VOLUME 9.8 fL (9.0-12.2); MONOCYTES # (AUTO) 0.6 10^3/uL (0.0-1.0); MONOCYTES % (AUTO) 8 % (0-12); NEUTROPHILS # (AUTO) 5.2 10^3/uL (1.8-7.8); NEUTROPHILS % (AUTO) 65 % (42-75); PLATELET COUNT 257 10^3/uL (130-400)
[2021-09-25 00:46] LABS: ALBUMIN 4.2 GM/DL (3.2-4.5); CHLORIDE 107 MMOL/L (98-107); POTASSIUM 3.3 MMOL/L (3.6-5.0); SODIUM 141 MMOL/L (135-145)
[2021-09-25 00:47] LABS: CALCIUM 9.7 MG/DL (8.5-10.1)
[2021-09-25 00:48] LABS: GLUCOSE 128 MG/DL (70-105); TOTAL PROTEIN 8.2 GM/DL (6.4-8.2)
[2021-09-25 00:50] LABS: BILIRUBIN,TOTAL 0.6 MG/DL (0.1-1.0); CARBON DIOXIDE 22 MMOL/L (21-32)
[2021-09-25 00:52] LABS: ALKALINE PHOSPHATASE 89 U/L (40-136); CREATININE SERUM 1.03 MG/DL (0.60-1.30); GFR ESTIMATED 83
[2021-09-25 00:53] LABS: BUN/CREATININE RATIO 14
[2021-09-25 00:55] LABS: ALANINE AMINOTRANSFERASE 24 U/L (0-55); MAGNESIUM 2.2 MG/DL (1.6-2.4)
[2021-09-25 01:16] LABS: TSH (THYROID ANALYZER) 0.55 UIU/ML (0.35-4.94)
[2021-09-25] MEDS ORDERED: KETOROLAC 30 MG/ML VIAL IVP ONE (01:45)
[2021-09-25] MEDS ORDERED: HYDROcodone/APAP 5 MG/325 MG (LORTAB) TAB PO ONE (01:45)
[2021-09-25 02:31] LABS: BILIRUBIN,URINE NEGATIVE (NEGATIVE); CLARITY,URINE CLEAR; COLOR,URINE YELLOW; GLUCOSE, URINE (UA) 2+ (NEGATIVE); KETONES,URINE NEGATIVE (NEGATIVE); LEUKOCYTE ESTERASE ,URINE NEGATIVE (NEGATIVE); NITRITE,URINE NEGATIVE (NEGATIVE); PH,URINE 5.5 (5-9); PROTEIN,URINE TRACE (NEGATIVE)
[2021-09-25 02:39] LABS: BACTERIA,URINE NEGATIVE /HPF; GRANULAR CASTS,URINE RARE /LPF; RBC,URINE RARE /HPF
--- NOTE | 2021-09-25 02:53 | ED General ---
General Chief Complaint: General Problems/Pain Stated Complaint: WEAKNESS Nursing Triage Note: PT ARRIVAL TO ER [facility]IA [facility] WITH COMPLAINTS OF WEAKNESS, CHRONIC NECK PAIN. PT STATES THAT WHENEVER HE DRIVES INTO [place] FROM HIS HOME THE VIBRATION OF THE ROAD CAUSES HIS NECK PAIN TO FLARE UP AND CAUSE THE WEAKNESS. PT STATES THAT HE HAS FELT WEAK SINCE THIS AFTERNOON AFTER RETURNING HOME FROM [place]. PT STATES THAT HE TAKES HYDROCODONE FOR THE PAIN AND ITS NOT CUTTING IT. PT DOES HAVE APPOINTMENT WITH PAIN CLINIC TOMORROW. PT ALSO TOLD EMS THAT HE HAD EPISODE OF TACHYCARDIA AT HOME WHERE HIS HEART RATE GOT UP TO 114. EMS NEVER HAD HR ABOVE 94, AND PATIENT TELLS PROVIDER HIS HR WAS 143 AT HOME. Source of Information: Patient, EMS, Family Exam Limitations: No Limitations History of Present Illness Date Seen by Provider: Sep 25, 2021 Time Seen by Provider: 00:02 Initial Comments This 61-year-old gentleman presents to the emergency room with complaints of generalized weakness, acute abdominal pain, and exacerbation of chronic back pain. He is scheduled to see a paperhanger and painter for targeted injection therapy tomorrow. He takes hydrocodone at home. He last took hydrocodone about 5 or 6 hours prior to arrival. He reports vibrations of driving because of worsening pain for him. He did come to [place] from his home several miles away to do blood work and other errands. He reports at one point his heart was racing at 143. He does admit to being in disagreement with his at the time and being distraught. Blood sugar was 105 earlier today. Patient reports feeling constipated and taking laxatives. He is a patient of Dr. Craven. He arrives via EMS. Allergies and Home Medications Allergies Coded Allergies: Penicillins (Verified Allergy, Unknown, 02/22/21) cefaclor (Verified Allergy, Unknown, 02/22/21) Patient Home Medication List Home Medication List Reviewed: Yes Amitriptyline HCl (Amitriptyline HCl) 50 Mg Tablet, 50 MG PO HS, (Reported) Entered as Reported by: JANETTE GAMBOA on 11/29/20941 Atorvastatin Calcium (Atorvastatin Calcium) 10 Mg Tablet, 10 MG PO DAILY, (Reported) Entered as Reported by: JANETTE GAMBOA on 11/29/20941 Benzonatate (Tessalon Perles) 100 Mg Capsule, 100 MG PO Q6H PRN for COUGH Prescribed by: ROOSEVELT JOHNSTON on 02/20/212128 Cilostazol (Cilostazol) 50 Mg Tablet, 50 MG PO BID, (Reported) Entered as Reported by: GUILLERMINA THORPE on 02/18/20 184 Cyclobenzaprine HCl (Cyclobenzaprine HCl) 10 Mg Tablet, 10 MG PO HS, (Reported) Entered as Reported by: GUILLERMINA THORPE on 02/18/20 185 Hydrocodone/Acetaminophen (Hydrocodone-Acetamin 7.5-325) 1 Each Tablet, 1 EACH PO Q4H Prescribed by: GIANCARLO OREILLY on 11/29/20 1606 Hydrocodone/Acetaminophen (Hydrocodone-Acetamin 7.5-325) 1 Each Tablet, 1 EACH PO Q4H PRN for PAIN-BREAKTHROUGH Prescribed by: SALMA ESTEVES on 12/06/20 1136 Metformin HCl (Metformin HCl) 500 Mg Tablet, 500 MG PO BID, (Reported) Entered as Reported by: KAJAL ERIC on 12/04/20 132 Metoprolol Succinate (Metoprolol Succinate) 50 Mg Tab.er.24h, 50 MG PO DAILY, (Reported) Entered as Reported by: YESENIA ANDREWS on 08/07/19 161 Ondansetron (Ondansetron Odt) 4 Mg Tab.rapdis, 4 MG PO Q6H PRN for NAUSEA/VOMITING Prescribed by: ROOSEVELT JOHNSTON on 02/20/212128 Pantoprazole Sodium (Pantoprazole Sodium) 40 Mg Tablet.dr, 40 MG PO DAILY, (Reported) Entered as Reported by: GUILLERMINA THORPE on 02/18/201849 Rivaroxaban (Xarelto) 2.5 Mg Tablet, 2.5 MG PO BID, (Reported) Entered as Reported by: KAJAL ERIC on 12/04/20 132 Sitagliptin Phosphate (Januvia) 100 Mg Tablet, 100 MG PO DAILY, (Reported) Entered as Reported by: KAJAL ERIC on 12/04/20 132 Review of Systems Review of Systems Constitutional: see HPI, weakness EENTM: see HPI Respiratory: no symptoms reported Cardiovascular: no symptoms reported Gastrointestinal: see HPI Genitourinary: other (Urinary infrequency) Musculoskeletal: see HPI Skin: no symptoms reported Psychiatric/Neurological: See HPI Hematologic/Lymphatic: No Symptoms Reported Immunological/Allergic: no symptoms reported Past Fbhezfe-Rzuhju-Emcnuc Hx Patient Social History Tobacco Use?: No Use of E-Cig and/or Vaping dev: Yes E-Cig or Vaping type used: Nicotine Substance use?: No Alcohol Use?: No Pt feels they are or have been: No Immunizations Up To Date Tetanus Booster (TDap): Unknown PED Vaccines UTD: Yes Influenza Vaccine Up-to-Date: Yes; Up-to-Date First/Initial COVID19 Vaccinat: 07/17/2020 Second COVID19 Vaccination Edson: 08/13/2020 Third COVID19 Vaccination Date: 07/17/2020 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 pmh: peripheral vasc disease, dvt, blood clots, dm, high chol. Surgeries: Yes (R FINGER AMPUTATION, ING HERNIA X2, AORTIC STENT, LEG BYPASS) Abdominal, Amputation (Right BKA, left great toe, traumatic amputation of right fingers), CABG, Coronary Stent, Orthopedic, Vascular Surgery Respiratory: No Currently Using CPAP: No Currently Using BIPAP: No Cardiac: Yes (HISTORY OF DVT, tachycardia) Coronary Artery Disease, Deep Vein Thrombosis, Peripheral Vascular Neurological: Yes Neuropathy Sexually Transmitted Disease: No HIV/AIDS: No Genitourinary: No Gastrointestinal: Yes Chronic Constipation Musculoskeletal: Yes (RIGHT SECOND FINGER AMP., History osteomyelitis) Amputee, Chronic Back Pain Endocrine: Yes Diabetes, Non-Insulin dep HEENT: Yes (WEARS GLASSES) Loss of Vision: Denies Hearing Impairment: Denies Cancer: No Psychosocial: No Sleep Difficulties, Suicide Attempts Integumentary: No Blood Disorders: No Adverse Reaction/Blood Tranf: No (N/A) Family Medical History Cardiovascular disease 19 FATHER Completed stroke 19 FATHER Diabetes mellitus 19 MOTHER Myocardial infarction 19 FATHER No Pertinent Family Hx Physical Exam Vital Signs Vital Signs - First Documented 09/25/21 00:02 Temp 36.3 Pulse 93 Resp 18 B/P (MAP) 147/88 (107) Pulse Ox 98 O2 Delivery Room Air Capillary Refill : Less Than 3 Seconds Height, Weight, BMI Height: 6'4.00" Weight: 180lbs. 0.0oz. 81.318092sg; 21.00 BMI Method:Stated General Appearance: No Apparent Distress, WD/WN HEENT: PERRL/EOMI, Normal ENT Inspection Neck: Normal Inspection Respiratory: Lungs Clear, Normal Breath Sounds, No Accessory Muscle Use Cardiovascular: No Edema, No Murmur Gastrointestinal: Normal Bowel Sounds, Soft, Tenderness (Generalized, mild) Extremity: Non Tender, Other (Numbness due to neuropathy. Amputations as described in PMH) Neurologic/Psychiatric: Alert, Oriented x3, Normal Mood/Affect, um rn II-XII Norm as Tested, Sensory Deficit (Lower extremity neuropathy) Skin: Normal Color, Warm/Dry Progress/Results/Core Measures Suspected Sepsis SIRS Temperature: Pulse: 93 Respiratory Rate: 18 Laboratory Tests 09/25/21 00:20: White Blood Count 8.0 Blood Pressure 147 /88 Mean: 107 Laboratory Tests 09/25/21 00:20: Creatinine 1.03, Platelet Count 257, Total Bilirubin 0.6 Results/Orders Lab Results Laboratory Tests Test 09/25/21 00:20 Range/Units White Blood Count 8.0 4.3-11.0 10^3/uL Red Blood Count 4.95 4.30-5.52 10^6/uL Hemoglobin 14.0 13.3-17.7 g/dL Hematocrit 42 40-54 % Mean Corpuscular Volume 84 80-99 fL Mean Corpuscular Hemoglobin 28 25-34 pg Mean Corpuscular Hemoglobin Concent 34 32-36 g/dL Red Cell Distribution Width 13.5 10.0-14.5 % Platelet Count 257 130-400 10^3/uL Mean Platelet Volume 9.8 9.0-12.2 fL Immature Granulocyte % (Auto) 0 % Neutrophils (%) (Auto) 65 42-75 % Lymphocytes (%) (Auto) 24 12-44 % Monocytes (%) (Auto) 8 0-12 % Eosinophils (%) (Auto) 3 0-10 % Basophils (%) (Auto) 0 0-10 % Neutrophils # (Auto) 5.2 1.8-7.8 10^3/uL Lymphocytes # (Auto) 1.9 1.0-4.0 10^3/uL Monocytes # (Auto) 0.6 0.0-1.0 10^3/uL Eosinophils # (Auto) 0.2 0.0-0.3 10^3/uL Basophils # (Auto) 0.0 0.0-0.1 10^3/uL Immature Granulocyte # (Auto) 0.0 0.0-0.1 10^3/uL Urine Color YELLOW Urine Clarity CLEAR Urine pH 5.5 5-9 Urine Specific [place] >=1.030 1.016-1.022 Urine Protein TRACE H NEGATIVE Urine Glucose (UA) 2+ H NEGATIVE Urine Ketones NEGATIVE NEGATIVE Urine Nitrite NEGATIVE NEGATIVE Urine Bilirubin NEGATIVE NEGATIVE Urine Urobilinogen 0.2 < = 1.0 MG/DL Urine Leukocyte Esterase NEGATIVE NEGATIVE Urine RBC (Auto) TRACE-I H NEGATIVE Urine RBC RARE /HPF Urine WBC NONE /HPF Urine Squamous Epithelial Cells NONE /HPF Urine Crystals NONE /LPF Urine Bacteria NEGATIVE /HPF Urine Casts PRESENT /LPF Urine Granular Casts RARE /LPF Urine Mucus MODERATE H /LPF Urine Culture Indicated NO Sodium Level 141 135-145 MMOL/L Potassium Level 3.3 L 3.6-5.0 MMOL/L Chloride Level 107 98-107 MMOL/L Carbon Dioxide Level 22 21-32 MMOL/L Anion Gap 12 5-14 MMOL/L Blood Urea Nitrogen 14 7-18 MG/DL Creatinine 1.03 0.60-1.30 MG/DL Estimat Glomerular Filtration Rate 83 BUN/Creatinine Ratio 14 Glucose Level 128 H 70-105 MG/DL Calcium Level 9.7 8.5-10.1 MG/DL Corrected Calcium 9.5 8.5-10.1 MG/DL Magnesium Level 2.2 1.6-2.4 MG/DL Total Bilirubin 0.6 0.1-1.0 MG/DL Aspartate Amino Transf (AST/SGOT) 24 5-34 U/L Alanine Aminotransferase (ALT/SGPT) 24 0-55 U/L Alkaline Phosphatase 89 40-136 U/L Troponin I < 0.028 <0.028 NG/ML C-Reactive Protein High Sensitivity 0.33 0.00-0.50 MG/DL Total Protein 8.2 6.4-8.2 GM/DL Albumin 4.2 3.2-4.5 GM/DL Lipase 23 8-78 U/L TSH [place] Testing 0.55 0.35-4.94 UIU/ML My Orders Orders - JUS ASHER MD Ed Iv/Invasive Line Start (09/25/21 00:13) Ekg Tracing (09/25/21 00:13) Monitor-Rhythm Ecg Trace Only (09/25/21 00:13) Cbc With Automated Diff (09/25/21 00:13) Comprehensive Metabolic Panel (09/25/21 00:13) Magnesium (09/25/21 00:13) Thyroid Analyzer (09/25/21 00:13) Troponin I Ramin (09/25/21 00:13) Ua Culture If Indicated (09/25/21 00:13) Hs C Reactive Protein (09/25/21 01:00) Lipase (09/25/21 01:00) Acute Abd Series (09/25/21 01:00) Hydrocodone/Apap 5/325 Tablet (Lortab 5 (09/25/21 01:45) Ketorolac Injection (Toradol Injection) (09/25/21 01:45) Bladder Scan (09/25/21 02:01) Medications Given in ED Current Medications Medications Dose Ordered Sig/Marilee Route Start Time Stop Time Status Last Admin Dose Admin Acetaminophen/ Hydrocodone Bitart 2 ea ONCE ONCE PO 09/25/21 01:45 09/25/21 01:46 DC 09/25/21 01:57 2 EA Ketorolac Tromethamine 15 mg ONCE ONCE IVP 09/25/21 01:45 09/25/21 01:46 DC 09/25/21 01:56 15 MG Vital Signs/I&O 09/25/21 09/25/21 00:02 03:11 Temp 36.3 Pulse 93 73 Resp 18 18 B/P (MAP) 147/88 (107) 131/78 Pulse Ox 98 99 O2 Delivery Room Air Room Air Capillary Refill : Less Than 3 Seconds Blood Pressure Mean: 107 Progress Note : Progress Note Labs were relatively unremarkable. Patient was treated with his usual hydrocodone dose in addition to Toradol. Bladder scan was performed as patient reported abdominal pain and only urinating once or twice a day. No residual was identified. ECG Initial ECG Impression Date: Sep 25, 2021 Initial ECG Impression Time: 00:35 Initial ECG Rate: 86 Initial ECG Rhythm: Normal Sinus Initial ECG Intervals: Normal Initial ECG Impression: Normal Comment Normal sinus rhythm with no ST elevation or depression. No abnormal intervals or axis deviation. Diagnostic Imaging Diagonstic Imaging: Xray Plain Films/CT/US/NM/MRI: chest, abdomen, pelvis Comments Acute abdominal series viewed by me and report reviewed. See report below: NAME: WILLIAM AVILA [facility] REC#: [id number] PT STATUS: DEP ER : 1960 PHYSICIAN: JUS ASHER MD ADMIT DATE: 09/25/21/ER Signed Date of Exam:09/25/21 ACUTE ABD SERIES INDICATION: Abdominal pain. Supine and upright abdominal images are obtained. The patient has had previous kyphoplasty of T12. There are postsurgical changes from a cholecystectomy. There is a vascular stent in left iliac region. Lung bases are clear. Bowel gas pattern is normal. There are no pathologic masses or calcifications. IMPRESSION: Postsurgical changes as noted. No acute abnormalities seen. Dictated by: Dictated on workstation # [id number] Dict: 09/25/21612 Trans: 09/25/21629 [id number] Interpreted by: JOSE LOYOLA MD Electronically signed by: JOSE LOYOLA MD 09/25/21629 Departure Impression Primary Impression: Acute abdominal pain Additional Impressions: Chronic pain Qualified Codes: G89.29 - Other chronic pain Generalized weakness Disposition: HOME, SELF-CARE Condition: Improved Departure-Patient Inst. Decision time for Depature: 02:58 Referrals: BUD CRAVEN MD (PCP) Primary Care Physician Patient Instructions: Abdominal Pain, Adult ED Add. Discharge Instructions: Continue your medications as previously prescribed. Follow through with your pain management appointment. Follow-up with your primary care provider soon as possible. Call your doctor with questions or concerns, and return to the ER if you have worsening symptoms despite following these instructions. Your potassium was slightly low today. You may improve your potassium level by eating foods high in potassium such as banana, citrus fruits and juices, avocado, watermelon, sweet potatoes, etc. All discharge instructions reviewed with patient and/or family. Voiced understanding. Copy Copies To 1: BUD CRAVEN MD, JOSHUA T MD Sep 25, 2021 02:52
[2021-09-25 03:11] VITALS: BP 131/78
--- NOTE | 2021-09-25 06:15 | Diagnostic Imaging Report ---
INDICATION: Abdominal pain. Supine and upright abdominal images are obtained. The patient has had previous kyphoplasty of T12. There are postsurgical changes from a cholecystectomy. There is a vascular stent in left iliac region. Lung bases are clear. Bowel gas pattern is normal. There are no pathologic masses or calcifications. IMPRESSION: Postsurgical changes as noted. No acute abnormalities seen. Dictated by: Dictated on workstation # [id number]
== END 2021-09-25 03:09 | disposition home or self-care (01) ==
LOC: EDUNIT# 00:01 → ER 00:02
DX: G89.29 Other chronic pain (principal); R10.84 Generalized abdominal pain; R53.1 Weakness; F17.290 Nicotine dependence, other tobacco product, uncomplicated
CPT/HCPCS: 36415; 74022; 80053; 81000; 83690; 83735; 84443; 84484; 85025; 86141; 93005; 93041

== ENCOUNTER 2022-01-18 12:48 | Emergency (ER) | payer OTHER ==
[~2022-01-18] VITALS: Ht 182 cm; Wt 80.1 kg
[~2022-01-18 12:48] MED LIST changes: -CILO50TA PO; +CILO50TA2 PO; +CLOP-31 PO; -CLOP75TA69 PO; +LEVO750T PO; -LEVO750T39 PO; +MELA10TA20 PO; -MELA10TA7 PO
[2022-01-18] MEDS ORDERED: ETOMIDATE IV SOLN 20 MG/10 ML VIAL IV ONE ×2 (12:51→13:15)
[2022-01-18] MEDS ORDERED: ADENOSINE 6 MG/2 ML (ADENOCARD) VIAL IV ONE ×3 (12:56→13:15)
[2022-01-18] MEDS ORDERED: NS IV 1000 ML 1,000 ML ONE (12:58)
[2022-01-18] MEDS ORDERED: ASPIRIN 81 MG CHEW (CHILDREN'S ASA) PO ONE (13:15)
[2022-01-18 13:16] LABS: BASOPHILS % (AUTO) 0 % (0-10); EOSINOPHILS # (AUTO) 0.1 10^3/uL (0.0-0.3); EOSINOPHILS % (AUTO) 1 % (0-10); HEMATOCRIT 45 % (40-54); HEMOGLOBIN 15.3 g/dL (13.3-17.7); LYMPHOCYTES # (AUTO) 1.5 10^3/uL (1.0-4.0); LYMPHOCYTES % (AUTO) 9 % (12-44); MEAN CORPUSCULAR HEMOGLOBIN 29 pg (25-34); MEAN CORPUSCULAR HGB CONC 34 g/dL (32-36); MEAN CORPUSCULAR VOLUME 85 fL (80-99); MEAN PLATELET VOLUME 10.3 fL (9.0-12.2); MONOCYTES # (AUTO) 0.5 10^3/uL (0.0-1.0); MONOCYTES % (AUTO) 3 % (0-12); NEUTROPHILS # (AUTO) 13.9 10^3/uL (1.8-7.8); NEUTROPHILS % (AUTO) 86 % (42-75); PLATELET COUNT 226 10^3/uL (130-400); WHITE BLOOD COUNT 16.1 10^3/uL (4.3-11.0)
[2022-01-18 13:20] LABS: ALBUMIN 4.1 GM/DL (3.2-4.5)
[2022-01-18 13:21] LABS: POTASSIUM 4.2 MMOL/L (3.6-5.0)
[2022-01-18 13:22] LABS: CALCIUM 9.5 MG/DL (8.5-10.1)
[2022-01-18 13:23] LABS: TOTAL PROTEIN 7.9 GM/DL (6.4-8.2)
[2022-01-18 13:25] LABS: BILIRUBIN,TOTAL 0.7 MG/DL (0.1-1.0)
[2022-01-18 13:27] LABS: CREATININE SERUM 1.2 MG/DL (0.60-1.30)
[2022-01-18 13:30] LABS: MAGNESIUM 1.9 MG/DL (1.6-2.4)
[2022-01-18] MEDS ORDERED: SODIUM CHLORIDE IV ONE (13:30)
--- NOTE | 2022-01-18 13:34 | Diagnostic Imaging Report ---
INDICATION: Left upper chest pain. TECHNIQUE: Single view chest 1:31 PM. CORRELATION STUDY: 11/28/2020 FINDINGS: Defibrillator pads obscure portions of the lower chest. The heart size, mediastinal configuration and pulmonary vascularity are within normal limits. The lungs are clear with no consolidating infiltrate. There is no significant effusion or pneumothorax. IMPRESSION: 1. Negative appearing single view chest. Dictated by: Dictated on workstation # [id number]
[2022-01-18 13:48] LABS: LYMPHOCYTES % (MANUAL) 6 %; MONOCYTES % (MANUAL) 5 %; NEUTROPHILS % (MANUAL) 89 %; RBC MORPH NORMAL
--- NOTE | 2022-01-18 13:52 | ED Chest Pain ---
General Chief Complaint: Chest Pain Stated Complaint: HEART RACING, WEAKNESS, CHEST PAIN Nursing Triage Note: PT STATES HE WOKE ABOUT 1000 THIS A.M. WITH LT UPPER CHEST PAIN, "FEELS LIKE JELLO," DENIES FEVER, TYPE I DIABETIC, HAS NOT CHECKED BLOOD SUGAR. DR STEPHENSON TO 3 TO ASSES PT Source: patient Exam Limitations: no limitations History of Present Illness Date Seen by Provider: Jan 18, 2022 Time Seen by Provider: 12:52 Initial Comments 61-year-old male presents feeling weak, chest pain and palpitations. Pain is dull throbbing in his mid central chest with radiation to his left arm. He feels generally weak without any focal weakness. Has had this happen in the past with irregular heartbeats. He is also diabetic. Has not checked his blood sugar no known history of coronary artery disease illness no current fevers chills nausea or vomiting. Symptoms started when he awakened this morning and been persistent through the afternoon. Allergies and Home Medications Allergies Coded Allergies: Penicillins (Verified Allergy, Unknown, 02/22/21) cefaclor (Verified Allergy, Unknown, 02/22/21) Patient Home Medication List Home Medication List Reviewed: Yes Amitriptyline HCl (Amitriptyline HCl) 50 Mg Tablet, 50 MG PO HS, (Reported) Entered as Reported by: JANETTE GAMBOA on 11/29/20 0942 Atorvastatin Calcium (Atorvastatin Calcium) 10 Mg Tablet, 10 MG PO DAILY, (Reported) Entered as Reported by: JANETTE GAMBOA on 11/29/20 0942 Benzonatate (Tessalon Perles) 100 Mg Capsule, 100 MG PO Q6H PRN for COUGH Prescribed by: ROOSEVELT JOHNSTON on 02/20/212128 Cilostazol (Cilostazol) 50 Mg Tablet, 50 MG PO BID, (Reported) Entered as Reported by: GUILLERMINA THORPE on 02/18/20 1847 Cyclobenzaprine HCl (Cyclobenzaprine HCl) 10 Mg Tablet, 10 MG PO HS, (Reported) Entered as Reported by: GUILLERMINA THORPE on 02/18/20 1856 Hydrocodone/Acetaminophen (Hydrocodone-Acetamin 7.5-325) 1 Each Tablet, 1 EACH PO Q4H Prescribed by: GIANCARLO OREILLY on 11/29/20 1606 Hydrocodone/Acetaminophen (Hydrocodone-Acetamin 7.5-325) 1 Each Tablet, 1 EACH PO Q4H PRN for PAIN-BREAKTHROUGH Prescribed by: SLAMA ESTEVES on 12/06/20 1136 Metformin HCl (Metformin HCl) 500 Mg Tablet, 500 MG PO BID, (Reported) Entered as Reported by: KAJAL ERIC on 12/04/20 1320 Metoprolol Succinate (Metoprolol Succinate) 50 Mg Tab.er.24h, 50 MG PO DAILY, (Reported) Entered as Reported by: YESENIA ANDREWS on 08/07/19 1612 Ondansetron (Ondansetron Odt) 4 Mg Tab.rapdis, 4 MG PO Q6H PRN for N AUSEA/VOMITING Prescribed by: ROOSEVELT JOHNSTON on 02/20/212128 Pantoprazole Sodium (Pantoprazole Sodium) 40 Mg Tablet.dr, 40 MG PO DAILY, (Reported) Entered as Reported by: GUILLERMINA THORPE on 02/18/20 1850 Rivaroxaban (Xarelto) 2.5 Mg Tablet, 2.5 MG PO BID, (Reported) Entered as Reported by: KAJAL ERIC on 12/04/20 1320 Sitagliptin Phosphate (Januvia) 100 Mg Tablet, 100 MG PO DAILY, (Reported) Entered as Reported by: KAJAL ERIC on 12/04/20 132 Review of Systems Review of Systems Constitutional: weakness EENTM: No Symptoms Reported Respiratory: No Symptoms Reported Cardiovascular: Chest Pain Gastrointestinal: No Symptoms Reported Genitourinary: No Symptoms Reported Musculoskeletal: no symptoms reported Skin: no symptoms reported Psychiatric/Neurological: No Symptoms Reported Endocrine: No Symptoms Reported Hematologic/Lymphatic: No Symptoms Reported Past Mryzhbg-Mifgph-Uhrneg Hx Patient Social History Tobacco Use?: No Use of E-Cig and/or Vaping dev: No Substance use?: No Alcohol Use?: No Immunizations Up To Date Tetanus Booster (TDap): Unknown PED Vaccines UTD: Yes First/Initial COVID19 Vaccinat: 07/17/2020 Second COVID19 Vaccination Edson: 08/13/2020 Third COVID19 Vaccination Date: 07/17/2020 Seasonal Allergies Seasonal Allergies: No Past Medical History Surgery/Hospitalization HX: left great toe amputation sx:r below the knee amputation, r finger ampution, hernia repair. pmh: peripheral vasc disease, dvt, blood clots, dm, high chol. Surgeries: Yes (R FINGER AMPUTATION, ING HERNIA X2, AORTIC STENT, LEG BYPASS) Abdominal, Amputation, CABG, Coronary Stent, Orthopedic, Vascular Surgery Respiratory: No Currently Using CPAP: No Currently Using BIPAP: No Cardiac: Yes (HISTORY OF DVT, tachycardia) Coronary Artery Disease, Deep Vein Thrombosis, Peripheral Vascular Neurological: Yes Neuropathy Sexually Transmitted Disease: No HIV/AIDS: No Genitourinary: No Gastrointestinal: Yes Chronic Constipation Musculoskeletal: Yes (RIGHT SECOND FINGER AMP., History osteomyelitis) Amputee, Chronic Back Pain Endocrine: Yes Diabetes, Non-Insulin dep HEENT: Yes (WEARS GLASSES) Loss of Vision: Denies Hearing Impairment: Denies Cancer: No Psychosocial: No Sleep Difficulties, Suicide Attempts Integumentary: No Blood Disorders: No Adverse Reaction/Blood Tranf: No (N/A) Family Medical History Reviewed Nursing Family Hx Cardiovascular disease 19 FATHER Completed stroke 19 FATHER Diabetes mellitus 19 MOTHER Myocardial infarction 19 FATHER No Pertinent Family Hx Physical Exam Vital Signs Vital Signs - First Documented 01/18/22 01/18/22 12:52 13:07 Temp 36.3 Pulse 176 Resp 20 B/P (MAP) 97/84 (88) Pulse Ox 100 O2 Delivery Room Air O2 Flow Rate 2.00 Capillary Refill : Less Than 3 Seconds Height, Weight, BMI Height: 6'4.00" Weight: 180lbs. 0.0oz. 81.339018ka; 24.00 BMI Method:Stated General Appearance: Other (Patient appears ill, pale) HEENT: PERRL/EOMI, TMs Normal, Normal ENT Inspection, Pharynx Normal Neck: Full Range of Motion, Normal Inspection, Non Tender, Supple Respiratory: Chest Non Tender, Lungs Clear, Normal Breath Sounds, No Accessory Muscle Use, No Respiratory Distress Cardiovascular: No Murmur, Tachycardia, Other (Thready peripheral pulses) Gastrointestinal: Normal Bowel Sounds, No Organomegaly, No Pulsatile Mass, Non Tender, Soft Extremity: Normal Inspection, Normal Range of Motion, Non Tender, No Calf Tenderness, Other (Delayed capillary refill) Neurologic/Psychiatric: Alert, Oriented x3 Skin: Pallor Lymphatic: No Adenopathy Procedures/Interventions Patient Education: Explained Benefits, Explained Risks, Pt. Ack. Understanding Agreement on procedure with pt: Yes Breath Sounds per Auscultation: Clear Heart Sounds per Auscultation: Regular Airway Exam: Mouth opens >2 fingers Total Time spent in CS 5 Additional Procedures: cardioversion/defib Progress Synchronized cardioversion performed using etomidate for sedation. Initially tried 200 J was successful with conversion to sinus rhythm. Patient tolerated well with no complications. Critical Care Note Critical Care Total Time (minutes) 30 Progress/Results/Core Measures Results/Orders Lab Results Laboratory Tests Test 01/18/22 12:55 Range/Units White Blood Count 16.1 H 4.3-11.0 10^3/uL Red Blood Count 5.34 4.30-5.52 10^6/uL Hemoglobin 15.3 13.3-17.7 g/dL Hematocrit 45 40-54 % Mean Corpuscular Volume 85 80-99 fL Mean Corpuscular Hemoglobin 29 25-34 pg Mean Corpuscular Hemoglobin Concent 34 32-36 g/dL Red Cell Distribution Width 14.2 10.0-14.5 % Platelet Count 226 130-400 10^3/uL Mean Platelet Volume 10.3 9.0-12.2 fL Immature Granulocyte % (Auto) 0 % Neutrophils (%) (Auto) 86 H 42-75 % Lymphocytes (%) (Auto) 9 L 12-44 % Monocytes (%) (Auto) 3 0-12 % Eosinophils (%) (Auto) 1 0-10 % Basophils (%) (Auto) 0 0-10 % Neutrophils # (Auto) 13.9 H 1.8-7.8 10^3/uL Lymphocytes # (Auto) 1.5 1.0-4.0 10^3/uL Monocytes # (Auto) 0.5 0.0-1.0 10^3/uL Eosinophils # (Auto) 0.1 0.0-0.3 10^3/uL Basophils # (Auto) 0.0 0.0-0.1 10^3/uL Immature Granulocyte # (Auto) 0.0 0.0-0.1 10^3/uL Neutrophils % (Manual) 89 % Lymphocytes % (Manual) 6 % Monocytes % (Manual) 5 % Blood Morphology Comment NORMAL Sodium Level 140 135-145 MMOL/L Potassium Level 4.2 3.6-5.0 MMOL/L Chloride Level 105 98-107 MMOL/L Carbon Dioxide Level 21 21-32 MMOL/L Anion Gap 14 5-14 MMOL/L Blood Urea Nitrogen 12 7-18 MG/DL Creatinine 1.20 0.60-1.30 MG/DL Estimat Glomerular Filtration Rate 69 BUN/Creatinine Ratio 10 Glucose Level 144 H 70-105 MG/DL Calcium Level 9.5 8.5-10.1 MG/DL Corrected Calcium 9.4 8.5-10.1 MG/DL Magnesium Level 1.9 1.6-2.4 MG/DL Total Bilirubin 0.7 0.1-1.0 MG/DL Aspartate Amino Transf (AST/SGOT) 16 5-34 U/L Alanine Aminotransferase (ALT/SGPT) 13 0-55 U/L Alkaline Phosphatase 85 40-136 U/L Troponin I 0.031 H <0.028 NG/ML Total Protein 7.9 6.4-8.2 GM/DL Albumin 4.1 3.2-4.5 GM/DL My Orders Orders - SACHINCONNIE DO Ekg Tracing (01/18/22 12:52) Adenosine Injection (Adenocard Injection (01/18/22 12:56) Ns Iv 1000 Ml (Sodium Chloride 0.9%) (01/18/22 12:58) Ekg Tracing (01/18/22 13:08) Magnesium (01/18/22 13:10) Troponin I Ramin (01/18/22 13:10) Chest 1 View, Ap/Pa Only (01/18/22 13:10) Cbc With Automated Diff (01/18/22 13:10) Comprehensive Metabolic Panel (01/18/22 13:10) Aspirin Chewable Tablet (Baby Aspirin Ch (01/18/22 13:15) Etomidate Injection (Amidate Injection) (01/18/22 13:15) Adenosine Injection (Adenocard Injection (01/18/22 13:15) Adenosine Injection (Adenocard Injection (01/18/22 13:15) Ns (Ivpb) (Sodium Chloride 0.9%) (01/18/22 13:30) Manual Differential (01/18/22 12:55) Etomidate Injection (Amidate Injection) (01/18/22 12:51) Medications Given in ED Vital Signs/I&O 01/18/22 01/18/22 01/18/22 12:52 13:07 14:25 Temp 36.3 36.3 Pulse 176 113 Resp 20 18 B/P (MAP) 97/84 (88) 104/72 Pulse Ox 100 97 100 O2 Delivery Room Air Nasal Cannula Room Air O2 Flow Rate 2.00 Blood Pressure Mean: 88 FSBG Bedside Testing Finger Stick Blood Glucose: 130 Blood Glucose Action Taken: DR MORGAN EKG #1: Comment Atrial flutter with a rate in the 170s. No ST or T wave abnormalities. Normal axis. No STEMI. Intervals are normal outside the [place] interval. EKG #2: Comment Sinus rhythm with a rate of 116 bpm. Normal intervals. Normal axis. No ST or T wave abnormalities. No ectopy. No STEMI. Diagnostic Imaging Diagonstic Imaging: Xray Plain Films/CT/US/NM/MRI: chest Comments AP chest x-ray is negative for any acute findings Departure Communication (Admissions) Patient initially what appears to be SVT. Tried 6 mg and 12 mg of adenosine. It was apparent after 12 mg of adenosine was in atrial flutter. He was having significant chest pain and was hypotensive in the 80s to 90 systolic during this time so cardioversion was undertaken. I did confirm he was on Xarelto and had not missed any doses prior to cardioversion. Synchronized cardioversion performed at 200 J x 1 with good response. Patient converted to sinus rhythm. His troponin is slightly elevated, likely from demand ischemia related to his elevated heart rate the duration of the morning. He is no longer having chest pain and feels much better. His color is much improved and states he feels back to normal I talked to her about possible admission and he states "I am going home." I do believe he is likely stable to go home. I told him I would speak with her makeup artistry instructor however he stated "I am going home." Ultimately he is di scharged in stable condition. They request to follow-up with Dr. Woodard as an outpatient so this information is provided. I recommended he follow-up with them on Thursday or Thursday however they could not get him in as a new patient that he should see his current makeup artistry instructor, Dr. Doll in the meantime. They state understanding. He is discharged in stable condition and given strict return precautions if he has any chest pain or shortness of breath, dizziness or lightheadedness. Impression Primary Impression: Atrial flutter Qualified Codes: I48.3 - Typical atrial flutter Additional Impressions: Elevated troponin I level Chest pain Qualified Codes: I25.9 - Chronic ischemic heart disease, unspecified Disposition: 01 HOME, SELF-CARE Condition: Stable Departure-Patient Inst. Referrals: BUD CRAVEN MD (PCP) Primary Care Physician RYLEY WOODARD MD Patient Instructions: Atrial Flutter (DC), Chest Pain (DC) Add. Discharge Instructions: You were seen in the emergency department today for chest pain. Your heart was in a rhythm called atrial flutter which is a fast heart rhythm causing your symptoms. We tried medicine first which did not work and ended up shocking your heart back into rhythm. You have maintained a normal heart rhythm since that time. Your troponin, and enzyme that tells of damage to the muscle of your heart is slightly elevated. Recommended possible admission however you stated he wanted to go home. I believe it is safe for you to do so at this time as this elevation is likely related to your heart rate being elevated for the duration of the day. With that however if you develop any recurrent chest pain you need to return to the emergency department immediately for likely admission. I do recommend that you follow-up with Dr. Woodard (as you requested) by calling to schedule an appointment. I would see him sometime on Thursday or Thursday if at all possible. If he cannot get into see him I recommend you see Dr. Doll your current makeup artistry instructor until you can get into see him as a new patient. Again if your symptoms change in any way concerning to you you are welcome to return to the emergency department at any time. All discharge instructions reviewed with patient and/or family. Voiced understanding. Copy Copies To 1: RYLEY WOODARD MDUTMaryCONNIE Yuri CHILD Jan 18, 2022 13:52
[2022-01-18 14:25] VITALS: BP 104/72
== END 2022-01-18 14:25 | disposition home or self-care (01) ==
LOC: EDUNIT# 12:48 → ER 12:50
DX: I48.92 Unspecified atrial flutter (principal); I95.9 Hypotension, unspecified; Z95.1 Presence of aortocoronary bypass graft; Z79.01 Long term (current) use of anticoagulants
CPT/HCPCS: 36415; 71045; 80053; 83735; 84484; 85007; 85027; 93005

== ENCOUNTER 2022-01-24 05:42 | Outpatient (CLI) | payer OTHER ==
[~2022-01-24] VITALS: Ht 182.9 cm; Wt 78.0 kg
[2022-01-24] MEDS ORDERED: EMPA25TA PO (15:30)
[2022-01-24] MEDS ORDERED: DULA1.5P2 SQ (15:30)
[2022-01-24] MEDS ORDERED: ALEN70TA80 PO (15:30)
[2022-01-24] MEDS ORDERED: NIFE30TA89 PO (15:30)
[2022-01-24] MEDS ORDERED: ZOLP5TAB7 PO (15:30)
[2022-01-24] MEDS ORDERED: CLOP75TA28 PO (15:30)
== END 2022-01-24 15:37 | disposition home or self-care (01) ==
LOC: PREOP 05:42
PROVIDERS: ATTEND Surgery
DX: Z01.818 Encounter for other preprocedural examination (principal)

== ENCOUNTER 2022-01-29 11:57 | Day surgery (SDC) | payer OTHER ==
[~2022-01-29] VITALS: Ht 182.9 cm; Wt 78.0 kg
[2022-01-29] VITALS (7 sets, daily range): BP systolic 97–134; BP diastolic 54–80
[~2022-01-29 11:57] MED LIST changes: +ALEN70TA80 PO; +DULA1.5P2 SQ; +EMPA25TA PO; +NIFE30TA89 PO; +ZOLP5TAB7 PO
[2022-01-29] MEDS ORDERED: LACTATED RINGERS 1,000 ML IV STA (12:07)
[2022-01-29] MEDS ORDERED: HURRICAINE EXT TUBE (BENZOCAINE) XX PRN (12:15)
[2022-01-29] MEDS ORDERED: LIDOCAINE JELLY 2% 6 ML SYRINGE MM PRN (12:15)
--- NOTE | 2022-01-29 12:39 | Progress Note-Pre Operative ---
Pre-Operative Progress Note Date of Available H&P: Jan 29, 2022 Date H&P Reviewed: Jan 29, 2022 Time H&P Reviewed: 12:00 History & Physical: No changes noted Pre-Operative Diagnosis: GERD, dysphagia, change bowel habits GIANCARLO OREILLY MD Jan 29, 2022 12:39
--- NOTE | 2022-01-29 12:41 | Discharge Inst-Surgical ---
D/C Lap Instructions-DENILSON Follow Up Activity as tolerated High Fiber Diet 25g or more per day Avoid Alcohol, Caffeine, Spicy [place] Choice and Acid foods. Drink 64 fluid oz or more of fluids per day. Symptoms to Report: Fever over 101 degree F, Nausea/Vomiting If any problems/questions: Contact your physician or go to Emergency Room GIANCARLO OREILLY MD Jan 29, 2022 12:41
[2022-01-29] MEDS ORDERED: ONDANSETRON 4 MG/2 ML (SDV) Z0FRAN IVP PRN (12:45)
[2022-01-29] MEDS ORDERED: ONDANSETRON 4 MG (ZOFRAN) ORAL DISSOLVE TAB PO PRN (12:45)
[2022-01-29] MEDS ORDERED: MIDAZOLAM 2 MG/2 ML (VERSED) VIAL ONE (12:51)
[2022-01-29] MEDS ORDERED: PROPOFOL INJECTION 50 ML IV ONE (12:51)
--- NOTE | 2022-01-29 13:47 | Anesthesia-General Post-Op ---
MAC Patient Condition Mental Status/LOC: Same as Preop Cardiovascular: Satisfactory Nausea/Vomiting: Absent Respiratory: Satisfactory Pain: Controlled Complications: Absent Post Op Complications Complications None Follow Up Care/Instructions Patient Instructions None needed. Anesthesiology Discharge Order Discharge Order Patient is doing well, no complaints, stable vital signs, no apparent adverse anesthesia problems. No complications reported per nursing. SHIKHA WOLFF DO Jan 29, 2022 13:47
--- NOTE | 2022-01-29 14:04 | Progress Note-Post Operative ---
Post-Operative Progess Note Surgeon (s)/Welt Rougher (s) Surgeon GIANCARLO OREILLY MD Welt Rougher: none Pre-Operative Diagnosis GERD, dysphagia, change bowel habits Post-Operative Diagnosis reflux esophagitis(grade C), distal esophageal stricture, small HH(1.5cm), moderate gastritis. chronic stage 2 ext and int hemorrhoids, small HP rectum(2mm), mild sigmoid diverticulosis. Procedure & Operative Findings Date of Procedure 01/29/22 Procedure Performed/Findings EGD with bx and balloon dilatation. colonoscopy with bx. Anesthesia Type mac Estimated Blood Loss Estimated blood loss (mL): minimal Specimens/Packing Specimens Removed ge jxn, antrum, rectal polyp GIANCARLO OREILLY MD Jan 29, 2022 14:04
--- NOTE | 2022-01-29 23:21 | OPERATIVE REPORT ---
DATE OF SERVICE: 01/29/2022 ATTENDING PRIMARY CARE PHYSICIAN: Janneth Shrestha DO PREOPERATIVE DIAGNOSES: Gastroesophageal reflux disease, dysphagia, change in bowel habits. POSTOPERATIVE DIAGNOSES: Reflux esophagitis [place] grade C with a distal esophageal stricture, small hiatal hernia 1.5 cm in size, moderate gastritis. No distal obstructions. Chronic stage II external and internal hemorrhoids, small hyperplastic polyp of the rectum 2 mm in size. Mild sigmoid diverticulosis. PROCEDURE: EGD with biopsy and balloon dilatation, colonoscopy with polypectomy with hot biopsy forceps. SURGEON: Giancarlo Oreilly MD ANESTHESIA: Monitored anesthesia care. ESTIMATED BLOOD LOSS: Minimal. FINDINGS: Reflux esophagitis [place] grade C with a distal esophageal stricture, small hiatal hernia 1.5 cm in size, moderate gastritis. No distal obstructions. Chronic stage II external and internal hemorrhoids, small hyperplastic polyp of the rectum 2 mm in size. Mild sigmoid diverticulosis. DISPOSITION: The patient tolerated the procedure well. INDICATIONS: The patient is a 61-year-old male known to us. He has had issues with symptomatic reflux as well as dysphagia and we did do a balloon dilatation on him on 09/22/2018. He has had reoccurrence of the dysphagia. He reports no issues with hematemesis, no coffee-ground emesis. He also states that he has had a change in bowel habits, which encompasses worsening constipation. He reports, however, that his constipation has worsened and may only have a bowel movement once every week. He has also had some issues with rectal bleeding. This gentleman also does have a significant history of coronary artery disease as well as a history of deep vein thrombosis and is on triple anticoagulation therapy with Plavix, aspirin and Xarelto. DESCRIPTION OF PROCEDURE: The patient was brought to the endoscopy suite and laid in the left lateral decubitus position. After adequate IV pain and sedative medications and monitored anesthesia care, a mouth piece was applied. Endoscope was then placed in the mouth, visualizing the pharynx and hypopharyngeal region. Vocal cords, epiglottis and vallecula identified and appeared to be normal. The endoscope was then gently intubated into the esophageal opening, esophagus was insufflated. The endoscope was then advanced to the first, second and third portions of the esophagus, at the level of the GE junction a reflux esophagitis, [place] grade C identified with a distal esophageal stricture identified. A biopsy was taken of the GE junction with forceps with visualization with good hemostasis. The endoscope was then advanced into the stomach. The endoscope was retroflexed, visualizing the small hiatal hernia approximately 1.5 cm in size. There was a moderate severity gastritis. No ulcers, polyps, or any neoplasms and a biopsy was taken of the antrum to rule out H. pylori. The endoscope was then advanced to the pylorus and the first and second portion of the duodenum, which appeared normal with no distal obstructions. The balloon was then placed in the stomach and pulled back to the area of the stricture. We then proceeded with a graded dilatation in a stepwise fashion from 2, 4, then eventually 5 atmospheres of pressure for approximately 19.5 mm in luminal diameter with moderate resistance and left this in place for approximately 60 seconds. The balloon was then desufflated and removed with visualization of good hemostasis as well as no mucosal tears. The endoscope was then slowly withdrawn, taking a second look and suctioning of residual air with no additional findings. A digital rectal examination was performed which revealed chronic stage II external, internal hemorrhoids, not actively edematous nor inflamed and no bleeding. Normal sphincter tone was felt and there were no palpable masses. The prostate gland with palpable and appeared normal. Endoscope was then intubated into the anus and the rectum was gently insufflated. There was a small hyperplastic polyp identified of the rectum approximately 2 mm in size and this was biopsied and destroyed with forceps and electrocautery with visualization with good hemostasis. The endoscope was then advanced through the sigmoid colon where a few isolated small diverticula identified. The endoscope was then advanced through the remainder of the descending, transverse and ascending colon to the cecum, which were normal. No other lesions identified. The endoscope was then slowly withdrawn while taking a second look and suctioning of residual air with no additional findings. The patient tolerated the procedure well. RECOMMENDATIONS: We will recommend the necessary lifestyle and dietary accommodation including smaller more frequent meals, avoiding eating at night as well as head elevation while lying supine. He also needs to avoid caffeinated beverages, spicy, greasy, acidic foods. He will also need to continue with his PPI acid vascular nurse daily. We were able to dilate to 19.5 mm in diameter; however, if he has reoccurrence of symptoms, we will have him follow up for repeat dilatation. He will also need to incorporate a high fiber diet with addition of fiber supplement, which should equal or exceed 30 g daily as well as significant amounts of water to promote a soft consistency stool on a daily basis. If this is established and he is asymptomatic, he will not need another screening colonoscopy until 10 years. Job ID: [id number] DocumentID: [id number] Dictated Date: 01/29/2022 13:55:33 [facility] Date: 01/29/2022 23:19:00 Dictated By: GIANCARLO OREILLY MD MTDD
== END 2022-01-29 14:39 | disposition home or self-care (01) ==
LOC: ENDO 11:57
PROVIDERS: ATTEND Surgery
DX: K21.00 Gastro-esophageal reflux disease with esophagitis, without bleeding (principal); K22.2 Esophageal obstruction; K44.9 Diaphragmatic hernia without obstruction or gangrene; K29.70 Gastritis, unspecified, without bleeding; K62.1 Rectal polyp; K57.31 Diverticulosis of large intestine without perforation or abscess with bleeding; K64.1 Second degree hemorrhoids; K64.4 Residual hemorrhoidal skin tags; K31.A15 Gastric intestinal metaplasia without dysplasia, involving multiple sites; I25.10 Atherosclerotic heart disease of native coronary artery without angina pectoris; I10 Essential (primary) hypertension; Z86.718 Personal history of other venous thrombosis and embolism; Z79.01 Long term (current) use of anticoagulants; Z79.02 Long term (current) use of antithrombotics/antiplatelets; Z79.82 Long term (current) use of aspirin; Z79.899 Other long term (current) drug therapy; E11.9 Type 2 diabetes mellitus without complications; Z79.85 Long-term (current) use of injectable non-insulin antidiabetic drugs; Z79.84 Long term (current) use of oral hypoglycemic drugs; Z89.021 Acquired absence of right finger(s); F17.290 Nicotine dependence, other tobacco product, uncomplicated
CPT/HCPCS: 82947; 88305

== ENCOUNTER → 2022-03-07 | Outpatient (CLI) | payer OTHER ==
--- NOTE | 2022-03-07 10:45 | Diagnostic Imaging Report ---
PROCEDURE: US Venous Lower Ext [place]. TECHNIQUE: Multiple real-time grayscale images were obtained over the lower extremities in various projections, bilaterally. Additional duplex Doppler and color Doppler images were also obtained. INDICATION: Cold extremities. Both lower extremity deep venous systems demonstrate normal compressibility with normal response to augmentation and Valsalva. Patient does have a right sided below-knee amputation. No fluid collections or masses are detected. IMPRESSION: No evidence of right or left lower extremity DVT. Dictated by: Dictated on workstation # [id number]
--- NOTE | 2022-03-07 13:43 | Diagnostic Imaging Report ---
US RIGHT LOW EXT [id number] INDICATION: Peripheral vascular disease. Cold extremities. COMPARISON: None available. TECHNIQUE: Grayscale, color Doppler, and spectral Doppler imaging of the right lower extremity was performed. FINDINGS: The common femoral artery is patent with biphasic wave flow. Profunda femoris is patent. The [place] superficial femoral vein is occluded. The stent present within the superficial femoral artery with no flow. The patient's femoral-popliteal bypass is occluded. Patient has had a [id number] amputation. IMPRESSION: 1. Andre[place] superficial femoral artery is completely occluded. 2. The femoral-popliteal bypass graft is occluded. 3. Profunda femoris is patent proximally. Dictated by: Dictated on workstation # [id number]
== END ==
LOC: RAD 08:00
PROVIDERS: ATTEND Nurse Practitioner Family
DX: I73.9 Peripheral vascular disease, unspecified (principal)
CPT/HCPCS: 93926; 93970

== ENCOUNTER 2022-04-12 16:22 | Observation (INO) | payer OTHER ==
[~2022-04-12] VITALS: Ht 193 cm; Wt 68.5 kg
[2022-04-12] MEDS ORDERED: ASPIRIN 81 MG CHEW (CHILDREN'S ASA) PO ONE (16:45)
--- NOTE | 2022-04-12 16:50 | ED Chest Pain ---
General Chief Complaint: Cardiac/General Problems Stated Complaint: CHEST PAINS | LETHARGY Nursing Triage Note: PT TO [facility] BY [facility] WITH CC OF FEELING WEAK A COUPLE HRS AGO, HEART RATE 90-120'S BY EMS, HX OF A FIB, SVT, DIABETIC, CLOTS IN LEG Source: patient Exam Limitations: no limitations History of Present Illness Date Seen by Provider: Apr 12, 2022 Time Seen by Provider: 16:25 Initial Comments Here with report of lethargy and chest pain associated with weakness. Onset about 3 hours ago. EMS was called. They did call report from the field to me. EMS was concerned because patient had heart rate between low 100s and 170 and appears to be in atrial fibrillation with rapid ventricular response. EMS reports blood pressure ranging from 70-120 systolic depending on heart rate. Patient is somewhat lethargic but is answering questions and following commands and knows history, current situation and where he is at. States chest pain is central and 7 out of 10. He is on pain meds chronically for back pain and neck pain and states those are not helping his pain currently. Denies fever chills. Denies nausea or vomiting. 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 Timing/Duration: 4-6 hours Severity/Quality: moderate Location: central Radiation: no radiation Activities at Onset: none Prior CP/Workup: cardiac cath, echocardiography Modifying Factors: improves with rest ASA po DOCUMENT SCANNER: Yes NTG SL DOCUMENT SCANNER: No Associated Symptoms: No abdominal pain; back pain; No fever/chills, No heartburn, No nausea/vomiting, No shortness of breath Allergies and Home Medications Allergies Coded Allergies: Penicillins (Verified Allergy, Unknown, 02/22/21) cefaclor (Verified Allergy, Unknown, 02/22/21) Patient Home Medication List Home Medication List Reviewed: Yes Alendronate Sodium (Alendronate Sodium) 70 Mg Tablet, 70 MG PO DAILY, (Reported) Entered as Reported by: LIONEL MCKAY on 01/24/22 1530 Last Action: Last Taken Edited Apixaban (Eliquis) 5 Mg Tablet, 5 MG PO BID Prescribed by: ARACELY SHAHID on 04/13/22 1236 Atorvastatin Calcium (Atorvastatin Calcium) 10 Mg Tablet, 10 MG PO DAILY, (Reported) Entered as Reported by: JANETTE GAMBOA on 11/29/20941 Last Action: Last Taken Edited Carvedilol (Carvedilol) 6.25 Mg Tablet, 6.25 MG PO BID, (Reported) Entered as Reported by: FOSTER SAMUEL on 04/13/22 1351 Last Action: New Order Cilostazol (Cilostazol) 50 Mg Tablet, 50 MG PO BID, (Reported) Entered as Reported by: GUILLERMINA THORPE on 02/18/20 184 Last Action: Last Taken Edited Clopidogrel Bisulfate (Clopidogrel) 75 Mg Tablet, 75 MG PO DAILY, (Reported) Entered as Reported by: LIONEL MCKAY on 01/24/221529 Last Action: Last Taken Edited Cyclobenzaprine HCl (Cyclobenzaprine HCl) 10 Mg Tablet, 10 MG PO HS, (Reported) Entered as Reported by: GULILERMINA THORPE on 02/18/201855 Last Action: Last Taken Edited Diltiazem HCl (Diltiazem 24Hr Cd) 240 Mg Cap.er.24h, 240 MG PO DAILY Prescribed by: ARACELY SHAHID on 04/13/22 1236 Dulaglutide (Trulicity) 1.5 Mg/0.5 Ml Pen.injctr, 1.5 MG SQ UD, (Reported) Entered as Reported by: LIONEL MCKAY on 01/24/221529 Last Action: Last Taken Edited Hydrocodone/Acetaminophen (Hydrocodone-Acetamin 7.5-325) 1 Each Tablet, 1 EACH PO Q4H Prescribed by: GIANCARLO OREILLY on 11/29/20 1606 Last Action: Last Taken Edited Pantoprazole Sodium (Pantoprazole Sodium) 40 Mg Tablet.dr, 40 MG PO DAILY, (Reported) Entered as Reported by: GUILLERMINA THORPE on 02/18/201849 Last Action: Last Taken Edited Zolpidem Tartrate (Zolpidem Tartrate) 5 Mg Tablet, 5 MG PO DAILY, (Reported) Entered as Reported by: LIONEL MCKAY on 01/24/221529 Last Action: Last Taken Edited Discontinued Medications Amitriptyline HCl (Amitriptyline HCl) 50 Mg Tablet, 50 MG PO HS, (Reported) Discontinued Reason: No Longer Taking Entered as Reported by: JANETTE GAMBOA on 11/29/20941 Last Action: Discontinued Benzonatate (Tessalon Perles) 100 Mg Capsule, 100 MG PO Q6H PRN for COUGH Discontinued Reason: No Longer Taking Prescribed by: ROOSEVELT JOHNSTON on 02/20/212128 Last Action: Discontinued Empagliflozin (Jardiance) 25 Mg Tablet, 25 MG PO DAILY, (Reported) Discontinued Reason: No Longer Taking Entered as Reported by: LIONEL MCKAY on 01/24/221529 Last Action: Discontinued Hydrocodone/Acetaminophen (Hydrocodone-Acetamin 7.5-325) 1 Each Tablet, 1 EACH PO Q4H PRN for PAIN-BREAKTHROUGH Discontinued Reason: Duplicate Order Prescribed by: SALMA ESTEVES on 12/06/20 1136 Last Action: Discontinued Metformin HCl (Metformin HCl) 500 Mg Tablet, 500 MG PO BID, (Reported) Discontinued Reason: No Longer Taking Entered as Reported by: KAJAL ERIC on 12/04/201319 Last Action: Discontinued Metoprolol Succinate (Metoprolol Succinate) 50 Mg Tab.er.24h, 50 MG PO DAILY, (Reported) Discontinued Reason: Duplicate Order Entered as Reported by: YESENIA ANDREWS on 08/07/19 1612 Last Action: Discontinued Nifedipine (Nifedipine ER) 30 Mg Tablet.er, 30 MG PO DAILY, (Reported) Entered as Reported by: LIONEL MCKAY on 01/24/221529 Last Action: Last Taken Edited Ondansetron (Ondansetron Odt) 4 Mg Tab.rapdis, 4 MG PO Q6H PRN for NAUSEA/VOMITING Discontinued Reason: No Longer Taking Prescribed by: ROOSEVELT JOHNSTON on 02/20/212128 Last Action: Discontinued Rivaroxaban (Xarelto) 2.5 Mg Tablet, 2.5 MG PO BID, (Reported) Entered as Reported by: KAJAL ERIC on 12/04/201319 Last Action: Last Taken Edited Sitagliptin Phosphate (Januvia) 100 Mg Tablet, 100 MG PO DAILY, (Reported) Discontinued Reason: No Longer Taking Entered as Reported by: KAJAL ERIC on 12/04/201319 Last Action: Discontinued Review of Systems Review of Systems Constitutional: No chills, No fever EENTM: No Nose Congestion, No Throat Pain Respiratory: Denies Cough; Shortness of Air Cardiovascular: Chest Pain; Denies Edema Gastrointestinal: Denies Nausea, Denies Vomiting Genitourinary: No Symptoms Reported Musculoskeletal: back pain, muscle pain Skin: no symptoms reported Psychiatric/Neurological: No Symptoms Reported Past Beyavsw-Colsqj-Qcazab Hx Patient Social History Tobacco Use?: No Substance use?: No Alcohol Use?: No Immunizations Up To Date Tetanus Booster (TDap): Unknown PED Vaccines UTD: Yes First/Initial COVID19 Vaccinat: 07/17/2020 Second COVID19 Vaccination Edson: 08/13/2020 Third COVID19 Vaccination Date: 07/17/2020 Seasonal Allergies Seasonal Allergies: No Past Medical History Surgery/Hospitalization HX: left great toe amputation sx:rt below the knee amputation, r finger ampution, hernia repair. pmh: peripheral vasc disease, dvt, blood clots, dm, high chol. Surgeries: Yes (R FINGER AMPUTATION, ING HERNIA X2, AORTIC STENT, LEG BYPASS) Abdominal, Amputation, CABG, Coronary Stent, Orthopedic, Vascular Surgery Respiratory: No Currently Using CPAP: No Currently Using BIPAP: No Cardiac: Yes (HISTORY OF DVT, tachycardia) Coronary Artery Disease, Deep Vein Thrombosis, Peripheral Vascular Neurological: Yes Neuropathy Sexually Transmitted Disease: No HIV/AIDS: No Genitourinary: No Gastrointestinal: Yes Chronic Constipation Musculoskeletal: Yes (RIGHT SECOND FINGER AMP., History osteomyelitis) Amputee, Chronic Back Pain Endocrine: Yes Diabetes, Non-Insulin dep HEENT: Yes (WEARS GLASSES) Loss of Vision: Denies Hearing Impairment: Denies Cancer: No Psychosocial: No Sleep Difficulties, Suicide Attempts Integumentary: No Blood Disorders: No Adverse Reaction/Blood Tranf: No (N/A) Family Medical History Reviewed Nursing Family Hx Cardiovascular disease 19 FATHER Completed stroke 19 FATHER Diabetes mellitus 19 MOTHER Myocardial infarction 19 FATHER No Pertinent Family Hx Physical Exam Vital Signs Vital Signs - First Documented 04/12/22 16:25 Temp 36.2 Pulse 142 Resp 16 B/P (MAP) 128/60 (82) Pulse Ox 99 O2 Delivery Room Air Capillary Refill : Less Than 3 Seconds Height, Weight, BMI Height: 6'4.00" Weight: 180lbs. 0.0oz. 81.766587md; 26.00 BMI Method:Stated General Appearance: No Apparent Distress, WD/WN HEENT: PERRL/EOMI, Pharynx Normal Neck: Non Tender, Supple Respiratory: Lungs Clear, Normal Breath Sounds Cardiovascular: No Murmur, Irregularly Irregular, Tachycardia Gastrointestinal: Non Tender, Soft Extremity: Normal Range of Motion, Non Tender Neurologic/Psychiatric: Alert, Oriented x3 Skin: Normal Color, Warm/Dry Procedures/Interventions Patient Education: Explained Benefits, Explained Risks, Pt. Ack. Understanding Breath Sounds per Auscultation: Clear Heart Sounds per Auscultation: Regular Airway Exam: Mouth opens >2 fingers Progress/Results/Core Measures Results/Orders Lab Results Laboratory Tests Test 04/12/22 16:48 Range/Units White Blood Count 7.2 4.3-11.0 10^3/uL Red Blood Count 4.97 4.30-5.52 10^6/uL Hemoglobin 14.7 13.3-17.7 g/dL Hematocrit 43 40-54 % Mean Corpuscular Volume 86 80-99 fL Mean Corpuscular Hemoglobin 30 25-34 pg Mean Corpuscular Hemoglobin Concent 35 32-36 g/dL Red Cell Distribution Width 13.6 10.0-14.5 % Platelet Count 162 130-400 10^3/uL Mean Platelet Volume 10.1 9.0-12.2 fL Immature Granulocyte % (Auto) 0 % Neutrophils (%) (Auto) 73 42-75 % Lymphocytes (%) (Auto) 19 12-44 % Monocytes (%) (Auto) 6 0-12 % Eosinophils (%) (Auto) 2 0-10 % Basophils (%) (Auto) 0 0-10 % Neutrophils # (Auto) 5.3 1.8-7.8 10^3/uL Lymphocytes # (Auto) 1.4 1.0-4.0 10^3/uL Monocytes # (Auto) 0.4 0.0-1.0 10^3/uL Eosinophils # (Auto) 0.1 0.0-0.3 10^3/uL Basophils # (Auto) 0.0 0.0-0.1 10^3/uL Immature Granulocyte # (Auto) 0.0 0.0-0.1 10^3/uL Prothrombin Time 16.6 H 12.2-14.7 SEC INR Comment 1.3 0.8-1.4 Activated Partial Thromboplast Time 51 H 24-35 SEC Sodium Level 140 135-145 MMOL/L Potassium Level 3.9 3.6-5.0 MMOL/L Chloride Level 109 H 98-107 MMOL/L Carbon Dioxide Level 20 L 21-32 MMOL/L Anion Gap 11 5-14 MMOL/L Blood Urea Nitrogen 12 7-18 MG/DL Creatinine 0.83 0.60-1.30 MG/DL Estimat Glomerular Filtration Rate 100 BUN/Creatinine Ratio 14 Glucose Level 110 H 70-105 MG/DL Calcium Level 9.1 8.5-10.1 MG/DL Corrected Calcium 9.2 8.5-10.1 MG/DL Magnesium Level 2.1 1.6-2.4 MG/DL Total Bilirubin 0.6 0.1-1.0 MG/DL Aspartate Amino Transf (AST/SGOT) 16 5-34 U/L Alanine Aminotransferase (ALT/SGPT) 14 0-55 U/L Alkaline Phosphatase 66 40-136 U/L Myoglobin 38.3 10.0-92.0 NG/ML Troponin I < 0.028 <0.028 NG/ML B-Type Natriuretic Peptide 31.2 <100.0 PG/ML Total Protein 7.2 6.4-8.2 GM/DL Albumin 3.9 3.2-4.5 GM/DL My Orders Orders - JOSE RAMAN MD Cbc With Automated Diff (04/12/22 16:42) Magnesium (04/12/22 16:42) Chest 1 View, Ap/Pa Only (04/12/22 16:42) Comprehensive Metabolic Panel (04/12/22 16:42) Myoglobin Serum (04/12/22 16:42) Protime With Inr (04/12/22 16:42) Partial Thromboplastin Time (04/12/22 16:42) O2 (04/12/22 16:42) Monitor-Rhythm Ecg Trace Only (04/12/22 16:42) Ed Iv/Invasive Line Start (04/12/22 16:42) Bnp [facility] (04/12/22 16:42) Troponin I Ramin (04/12/22 16:42) Aspirin Chewable Tablet (Baby Aspirin Ch (04/12/22 16:45) Diltiazem Drip Pre-Mix (Cardizem Drip Pr (04/12/22 16:45) Diltiazem Injection (Cardizem Injection) (04/12/22 16:45) Ekg Tracing (04/12/22 17:04) Apixaban Tablet (Eliquis Tablet) (04/12/22 18:00) Diltiazem Cd 24 Hr Capsule (Cardizem Cd (04/12/22 18:00) Code/Resuscitation (04/12/22 18:21) Medications Given in ED Vital Signs/I&O 04/12/22 04/12/22 04/12/22 04/12/22 16:25 16:52 16:59 17:40 Temp 36.2 Pulse 142 138 106 90 Resp 16 16 B/P (MAP) 128/60 (82) 105/79 108/63 105/60 (75) Pulse Ox 99 96 O2 Delivery Room Air Room Air 04/12/22 18:23 Temp 36.2 Pulse 90 Resp 16 B/P (MAP) 128/50 Pulse Ox 86 O2 Delivery Room Air Blood Pressure Mean: 82 Progress Progress Note : Progress Note Seen and evaluated. IV by EMS with normal saline 1 L bolus running. Labs ordered including CBC, CMP, troponin, BNP and coags. Chest x-ray and EKG ordered. We will initiate Cardizem bolus at 20 mg and start Cardizem drip at 10 mg/h IV. Patient does have 2 IVs established by EMS. Monitor patient. Differential diagnosis includes cardiac event, atrial fibrillation with rapid ve ntricular response, atrial flutter with rapid ventricular response, musculoskeletal chest pain 1754: Patient has converted to sinus rhythm and is actually doing much better. CBC normal. Coags consistent with Xarelto use. CMP is grossly normal with trop onin negative and BNP negative as well as myoglobin negative. Chest x-ray shows elongated chest but no obvious infiltrate and no cardiomegaly. CT radiology report for details. I did discuss the case with Dr Reilly. Given that he was quite lethargic on arrival and A-fib with RVR, I am concerned about sending him home. He is not on the correct dose of Xarelto for paroxysmal atrial fibrillation. Dr Reilly is recommending changing anticoagulation to Eliquis 5 mg p.o. twice daily with first dose now. We will titrate off drip and initiate Cardizem CD2 140 mg p.o. now. Admit to cardiac stepdown, observation status. He will see patient in consult for cardiology. 1814: I did discuss the case with Dr. Shahid and she accepts patient for admission, observation status and has asked for 2D cardiac echo in the a.m. which is ordered. Findings and concerns discussed with patient and family who agree. Initial ECG Impression Date: Apr 12, 2022 Initial ECG Impression Time: 16:25 Initial ECG Rate: 121 Initial ECG Rhythm: A Fib/Flutter Initial ECG Impression: Atrial Fibrillation w/RVR Comment Paroxysmal atrial fibrillation/flutter, normal but rightward axis. No evidence of ST elevation ME. Interpreted by me. EKG : EKG Time: 17:03 Rate: 88 Rhythm: Normal Sinus Comment Patient now in sinus rhythm with left atrial abnormality. Rightward axis. Right ventricular hypertrophy. No evidence of ST elevation ME. Interpreted by me. Diagnostic Imaging Diagonstic Imaging: Xray Plain Films/CT/US/NM/MRI: chest Comments [facility], [place] NAME: WILLIAM AVILA [facility] REC#: [id number] PT STATUS: REG ER : 1960 PHYSICIAN: JOSE RAMAN MD ADMIT DATE: 04/12/22/ER Draft Date of Exam:04/12/22 CHEST 1 VIEW, AP/PA ONLY EXAM: Chest 1 view, AP/PA only INDICATION: Chest pain. COMPARISON: 01/18/2022. FINDINGS: Normal heart size and central pulmonary vascularity. Lungs are clear. No pleural effusion or pneumothorax. No acute osseous finding. No significant change. IMPRESSION: No acute cardiopulmonary finding. Dictated on workstation # [id number] Dict: 04/12/221712 Trans: 04/12/221713 [facility] [id number] Interpreted by: ANTONIA RIGGINS MD Electronically signed by: Reviewed: Reviewed by Me Departure Communication (Admissions) Time/Spoke to Admitting Phy: 18:15 Time/Spoke to Consulting Phy: 17:55 Impression Primary Impression: Paroxysmal atrial fibrillation with rapid ventricular response Disposition: ADMITTED INPATIENT Condition: Stable Admissions Decision to Admit Reason: Admit from ER (General) Decision to Admit/Date: Apr 12, 2022 Time/Decision to Admit Time: 17:55 Departure-Patient Inst. Referrals: BUD CRAVEN MD (PCP) Primary Care Physician Scripts Apixaban (Eliquis) 5 Mg Tablet 5 MG PO BID, #30 TAB Prov: ARACELY SHAHID MD 04/13/22 Diltiazem HCl (Diltiazem 24Hr Cd) 240 Mg Cap.er.24h 240 MG PO DAILY, #30 CAP Prov: ARACELY SHAHID MD 04/13/22 JOSE RAMAN MD Apr 12, 2022 16:50
[2022-04-12 16:52] LABS: BASOPHILS % (AUTO) 0 % (0-10); EOSINOPHILS # (AUTO) 0.1 10^3/uL (0.0-0.3); EOSINOPHILS % (AUTO) 2 % (0-10); HEMATOCRIT 43 % (40-54); HEMOGLOBIN 14.7 g/dL (13.3-17.7); LYMPHOCYTES # (AUTO) 1.4 10^3/uL (1.0-4.0); LYMPHOCYTES % (AUTO) 19 % (12-44); MEAN CORPUSCULAR HEMOGLOBIN 30 pg (25-34); MEAN CORPUSCULAR HGB CONC 35 g/dL (32-36); MEAN CORPUSCULAR VOLUME 86 fL (80-99); MEAN PLATELET VOLUME 10.1 fL (9.0-12.2); MONOCYTES # (AUTO) 0.4 10^3/uL (0.0-1.0); MONOCYTES % (AUTO) 6 % (0-12); NEUTROPHILS # (AUTO) 5.3 10^3/uL (1.8-7.8); NEUTROPHILS % (AUTO) 73 % (42-75); PLATELET COUNT 162 10^3/uL (130-400); WHITE BLOOD COUNT 7.2 10^3/uL (4.3-11.0)
[2022-04-12 16:59] LABS: INR 1.3 (0.8-1.4); PROTHROMBIN TIME PATIENT 16.6 SEC (12.2-14.7)
[2022-04-12] MEDS: dilTIAZem DRIP PRE-MIX 125 ML IV SCH (16:59)
[2022-04-12 17:00] LABS: ALBUMIN 3.9 GM/DL (3.2-4.5); POTASSIUM 3.9 MMOL/L (3.6-5.0)
[2022-04-12 17:01] LABS: CALCIUM 9.1 MG/DL (8.5-10.1)
[2022-04-12 17:02] LABS: TOTAL PROTEIN 7.2 GM/DL (6.4-8.2)
[2022-04-12 17:04] LABS: BILIRUBIN,TOTAL 0.6 MG/DL (0.1-1.0)
[2022-04-12 17:06] LABS: CREATININE SERUM 0.83 MG/DL (0.60-1.30)
[2022-04-12 17:09] LABS: MAGNESIUM 2.1 MG/DL (1.6-2.4)
--- NOTE | 2022-04-12 17:14 | Diagnostic Imaging Report ---
EXAM: Chest 1 view, AP/PA only INDICATION: Chest pain. COMPARISON: 01/18/2022. FINDINGS: Normal heart size and central pulmonary vascularity. Lungs are clear. No pleural effusion or pneumothorax. No acute osseous finding. No significant change. IMPRESSION: No acute cardiopulmonary finding. Dictated by: Dictated on workstation # [id number]
[2022-04-12] MEDS ORDERED: APIXABAN 5 MG (ELIQUIS) TABLET PO ONE (18:00)
[2022-04-12] MEDS ORDERED: morphine INJ 10 MG/ML 1ML (SYR OR VIAL) IVP STA (18:25)
[2022-04-12 19:37] VITALS: BP 111/60
[2022-04-12 20:00] VITALS: BP 110/57
[2022-04-12 21:00] VITALS: BP 94/67
[2022-04-12 22:00] VITALS: BP 115/67
[2022-04-12 23:00] VITALS: BP 112/68
[2022-04-13] VITALS: BP 99/57
[2022-04-13 04:00] VITALS: BP 99/64
[2022-04-13 04:44] LABS: BASOPHILS % (AUTO) 0 % (0-10); EOSINOPHILS # (AUTO) 0.2 10^3/uL (0.0-0.3); EOSINOPHILS % (AUTO) 2 % (0-10); HEMATOCRIT 39 % (40-54); HEMOGLOBIN 13.1 g/dL (13.3-17.7); LYMPHOCYTES # (AUTO) 1.8 10^3/uL (1.0-4.0); LYMPHOCYTES % (AUTO) 28 % (12-44); MEAN CORPUSCULAR HEMOGLOBIN 29 pg (25-34); MEAN CORPUSCULAR HGB CONC 34 g/dL (32-36); MEAN CORPUSCULAR VOLUME 87 fL (80-99); MEAN PLATELET VOLUME 10.1 fL (9.0-12.2); MONOCYTES # (AUTO) 0.5 10^3/uL (0.0-1.0); MONOCYTES % (AUTO) 7 % (0-12); NEUTROPHILS # (AUTO) 3.9 10^3/uL (1.8-7.8); NEUTROPHILS % (AUTO) 62 % (42-75); PLATELET COUNT 152 10^3/uL (130-400); WHITE BLOOD COUNT 6.3 10^3/uL (4.3-11.0)
[2022-04-13 04:53] LABS: POTASSIUM 3.9 MMOL/L (3.6-5.0)
[2022-04-13 04:54] LABS: CALCIUM 8.6 MG/DL (8.5-10.1)
[2022-04-13 04:59] LABS: CREATININE SERUM 0.81 MG/DL (0.60-1.30)
[2022-04-13] MEDS: dilTIAZem DRIP PRE-MIX 125 ML IV SCH (05:08)
[2022-04-13 07:33] VITALS: BP 99/59
--- NOTE | 2022-04-13 12:27 | Short Stay Summary ---
BEAR BARRON 04/13/22 1227: History of Present Illness History of Present Illness Reason for visit/HPI Patient is a 61-year-old male with a history of afib, DM, CAD, DVTs, and PVD that presented to the ED on 04/12 with chief complaint of lethargy and chest pain. Patient reports that he was at his apartment when he began feeling "like a bag of jello" with increasing amount of fatigue and weakness. Patient reports that he has had similar symptoms multiple times in the past, most recent at [facility] was in January where he was found to be in afib w/RVR which converted to sinus rhythm after electrical cardioversion. When EMS arrived, they found his pulse to to be ranging from low 100s to 170s. On admission to the ED, patient was found to be in afib with RVR. He was given a 20mg IV bolus of cardizem and placed on a 10mg/hr IV drip of cardizem which converted him back into sinus rhythym. He was taken off the drip and started on Cardizem 240mg PO daily and has remained in sinus rhythm with good rate control since. Echo showed an ejection fraction of 60-65% with some mild mitral regurgitation. Patient reports that he is feeling well and has no complaints. Patient is being seen by cardiology today, following that will be discharged with nifedipine 240mg PO daily for rate control, and with eliquis 5mg PO BID replacing xarelto 2.5mg PO BID. Date of Admission Apr 12, 2022 at 18:31 Date of Discharge Time Seen by Provider: 11:45 Attending Physician Thomas Ferraro MD Admitting Physician Admitting Physician: Aracely Reyes MD Attending Physician: Aracely Reyes MD Consult Allergies and Home Medications Allergies Coded Allergies: Penicillins (Verified Allergy, Unknown, 02/22/21) cefaclor (Verified Allergy, Unknown, 02/22/21) Patient Home Medication List Alendronate Sodium (Alendronate Sodium) 70 Mg Tablet, 70 MG PO DAILY, (Reported) Entered as Reported by: LIONEL MOSHER on 01/24/22 1530 Amitriptyline HCl (Amitriptyline HCl) 50 Mg Tablet, 50 MG PO HS, (Reported) Entered as Reported by: JANETTE GAMBOA on 11/29/20 0942 Apixaban (Eliquis) 5 Mg Tablet, 5 MG PO BID Prescribed by: ARACELY REYES on 04/13/22 1236 Atorvastatin Calcium (Atorvastatin Calcium) 10 Mg Tablet, 10 MG PO DAILY, (Reported) Entered as Reported by: JANETTE GAMBOA on 11/29/20 0942 Benzonatate (Tessalon Perles) 100 Mg Capsule, 100 MG PO Q6H PRN for COUGH Prescribed by: ROOSEVELT JOHNSTON on 02/20/212128 Cilostazol (Cilostazol) 50 Mg Tablet, 50 MG PO BID, (Reported) Entered as Reported by: GUILLERMINA THORPE on 02/18/20 1847 Clopidogrel Bisulfate (Clopidogrel) 75 Mg Tablet, 75 MG PO DAILY, (Reported) Entered as Reported by: LIONEL MCKAY on 01/24/22 1530 Cyclobenzaprine HCl (Cyclobenzaprine HCl) 10 Mg Tablet, 10 MG PO HS, (Reported) Entered as Reported by: GUILLERMINA THORPE on 02/18/20 185 Diltiazem HCl (Diltiazem 24Hr Cd) 240 Mg Cap.er.24h, 240 MG PO DAILY Prescribed by: ARACELY REYES on 04/13/22 1236 Dulaglutide (Trulicity) 1.5 Mg/0.5 Ml Pen.injctr, 1.5 MG SQ UD, (Reported) Entered as Reported by: LIONEL MCKAY on 01/24/22 1530 Empagliflozin (Jardiance) 25 Mg Tablet, 25 MG PO DAILY, (Reported) Entered as Reported by: LIONEL MCKAY on 01/24/22 1530 Hydrocodone/Acetaminophen (Hydrocodone-Acetamin 7.5-325) 1 Each Tablet, 1 EACH PO Q4H Prescribed by: GIANCARLO OREILLY on 11/29/20 1606 Hydrocodone/Acetaminophen (Hydrocodone-Acetamin 7.5-325) 1 Each Tablet, 1 EACH PO Q4H PRN for PAIN-BREAKTHROUGH Prescribed by: SALMA ESTEVES on 12/06/20 1136 Metformin HCl (Metformin HCl) 500 Mg Tablet, 500 MG PO BID, (Reported) Entered as Reported by: KAJAL ERIC on 12/04/20 1320 Metoprolol Succinate (Metoprolol Succinate) 50 Mg Tab.er.24h, 50 MG PO DAILY, (Reported) Entered as Reported by: YESENIA ANDREWS on 08/07/19 1612 Nifedipine (Nifedipine ER) 30 Mg Tablet.er, 30 MG PO DAILY, (Reported) Entered as Reported by: LIONEL MCKAY on 01/24/22 1530 Ondansetron (Ondansetron Odt) 4 Mg Tab.rapdis, 4 MG PO Q6H PRN for NAUSEA/VOMITING Prescribed by: ROOSEVELT JOHNSTON on 02/20/212128 Pantoprazole Sodium (Pantoprazole Sodium) 40 Mg Tablet.dr, 40 MG PO DAILY, (Reported) Entered as Reported by: GUILLERMINA THORPE on 02/18/20 185 Rivaroxaban (Xarelto) 2.5 Mg Tablet, 2.5 MG PO BID, (Reported) Entered as Reported by: KAJAL ERIC on 12/04/20 1320 Sitagliptin Phosphate (Januvia) 100 Mg Tablet, 100 MG PO DAILY, (Reported) Entered as Reported by: KAJAL ERIC on 12/04/20 1320 Zolpidem Tartrate (Zolpidem Tartrate) 5 Mg Tablet, 5 MG PO DAILY, (Reported) Entered as Reported by: LIONEL MCKAY on 01/24/22 1530 Past Qaseydw-Umfzlk-Wvxgem Hx Patient Social History Smoking Status: Current Everyday Smoker Former Smoker, Quit: Dec 15, 2016 2nd Hand Smoke Exposure: No Recent Hopitalizations: Yes Have you traveled recently?: No Alcohol Use?: No Pt feels they are or have been: No Immunizations Up To Date Tetanus Booster (TDap): Unknown Pediatric: Yes Seasonal Allergies Seasonal Allergies: No Surgeries Yes (R FINGER AMPUTATION, ING HERNIA X2, AORTIC STENT, LEG BYPASS) Abdominal, Amputation, CABG, Coronary Stent, Orthopedic, Vascular Surgery Respiratory No Currently Using CPAP: No Currently Using BIPAP: No Cardiovascular Yes (HISTORY OF DVT, tachycardia) Coronary Artery Disease, Deep Vein Thrombosis, Peripheral Vascular Neurological Yes Neuropathy Reproductive System Sexually Transmitted Disease: No HIV/AIDS: No Genitourinary No Gastrointestinal Yes Chronic Constipation Musculoskeletal Yes (RIGHT SECOND FINGER AMP., History osteomyelitis) Amputee, Chronic Back Pain Endocrine History of Endocrine Disorders: Yes Endocrine Disorders: Diabetes, Non-Insulin dep HEENT History of HEENT Disorders: Yes (WEARS GLASSES) Loss of Vision: Denies Hearing Impairment: Denies Cancer No Psychosocial History of Psychiatric Problem: No Behavioral Health Disorders: Sleep Difficulties, Suicide Attempts Integumentary History of Skin or Integumenta: No Blood Transfusions History of Blood Disorders: No Adverse Reaction to a Blood Tr: No (N/A) Family Medical History Significant Family History: No Pertinent Family Hx Family Hx: Cardiovascular disease 19 FATHER Completed stroke 19 FATHER Diabetes mellitus 19 MOTHER Myocardial infarction 19 FATHER Physical Exam Vital Signs Vital Signs - First Documented 04/12/22 16:25 Temp 36.2 Pulse 142 Resp 16 B/P (MAP) 128/60 (82) Pulse Ox 99 O2 Delivery Room Air Capillary Refill : Less Than 3 Seconds Height, Weight, BMI Height: 6'4.00" Weight: 180lbs. 0.0oz. 81.360924mu; 18.20 BMI Method:Stated Clinical Quality Measures AMI/AHF: ASA po Prior to arrival: Yes Short Stay Diagnosis Conclusion Labs Laboratory Tests 04/12/22 16:48: White Blood Count 7.2, Red Blood Count 4.97, Hemoglobin 14.7, Hematocrit 43, Mean Corpuscular Volume 86, Mean Corpuscular Hemoglobin 30, Mean Corpuscular Hem oglobin Concent 35, Red Cell Distribution Width 13.6, Platelet Count 162, Mean Platelet Volume 10.1, Immature Granulocyte % (Auto) 0, Neutrophils (%) (Auto) 73, Lymphocytes (%) (Auto) 19, Monocytes (%) (Auto) 6, Eosinophils (%) (Auto) 2, Basophils (%) (Auto) 0, Neutrophils # (Auto) 5.3, Lymphocytes # (Auto) 1.4, Monocytes # (Auto) 0.4, Eosinophils # (Auto) 0.1, Basophils # (Auto) 0.0, Immature Granulocyte # (Auto) 0.0, Prothrombin Time 16.6H, INR Comment 1.3, Activated Partial Thromboplast Time 51H, Sodium Level 140, Potassium Level 3.9, Chloride Level 109H, Carbon Dioxide Level 20L, Anion Gap 11, Blood Urea Nitrogen 12, Creatinine 0.83, Estimat Glomerular Filtration Rate 100, BUN/Creatinine Ratio 14, Glucose Level 110H, Calcium Level 9.1, Corrected Calcium 9.2, Magnesium Level 2.1, Total Bilirubin 0.6, Aspartate Amino Transf (AST/SGOT) 16, Alanine Aminotransferase (ALT/SGPT) 14, Alkaline Phosphatase 66, Myoglobin 38.3, Troponin I < 0.028, B-Type Natriuretic Peptide 31.2, Total Protein 7.2, Albumin 3.9 04/13/22 04:29: White Blood Count 6.3, Red Blood Count 4.47, Hemoglobin 13.1L, Hematocrit 39L, Mean Corpuscular Volume 87, Mean Corpuscular Hemoglobin 29, Mean Corpuscular Hemoglobin Concent 34, Red Cell Distribution Width 13.8, Platelet Count 152, Mean Platelet Volume 10.1, Immature Granulocyte % (Auto) 0, Neutrophils (%) (Auto) 62, Lymphocytes (%) (Auto) 28, Monocytes (%) (Auto) 7, Eosinophils (%) (Auto) 2, Basophils (%) (Auto) 0, Neutrophils # (Auto) 3.9, Lymphocytes # (Auto) 1.8, Monocytes # (Auto) 0.5, Eosinophils # (Auto) 0.2, Basophils # (Auto) 0.0, Immature Granulocyte # (Auto) 0.0, Sodium Level 140, Potassium Level 3.9, Chloride Level 108H, Carbon Dioxide Level 23, Anion Gap 9, Blood Urea Nitrogen 11, Creatinine 0.81, Estimat Glomerular Filtration Rate 101, BUN/Creatinine Ratio 14, Glucose Level 109H, Calcium Level 8.6, Triglycerides Level 133, Cholesterol Level 125, LDL Cholesterol Direct 76, VLDL Cholesterol 27, HDL Cholesterol 34L ARACELY REYES MD 04/13/22 1236: Allergies and Home Medications Allergies Coded Allergies: Penicillins (Verified Allergy, Unknown, 02/22/21) cefaclor (Verified Allergy, Unknown, 02/22/21) Patient Home Medication List Alendronate Sodium (Alendronate Sodium) 70 Mg Tablet, 70 MG PO DAILY, (Reported) Entered as Reported by: LIONEL MCKAY on 01/24/22 1530 Amitriptyline HCl (Amitriptyline HCl) 50 Mg Tablet, 50 MG PO HS, (Reported) Entered as Reported by: JANETTE GAMBOA on 11/29/20 0942 Apixaban (Eliquis) 5 Mg Tablet, 5 MG PO BID Prescribed by: ARACELY REYES on 04/13/22 1236 Atorvastatin Calcium (Atorvastatin Calcium) 10 Mg Tablet, 10 MG PO DAILY, (Repo rted) Entered as Reported by: JANETTE GAMBOA on 11/29/20 0942 Benzonatate (Tessalon Perles) 100 Mg Capsule, 100 MG PO Q6H PRN for COUGH Prescribed by: ROOSEVELT JOHNSTON on 02/20/21 212 Cilostazol (Cilostazol) 50 Mg Tablet, 50 MG PO BID, (Reported) Entered as Reported by: GUILLERMINA THORPE on 02/18/20 1847 Clopidogrel Bisulfate (Clopidogrel) 75 Mg Tablet, 75 MG PO DAILY, (Reported) Entered as Reported by: LIONEL MCKAY on 01/24/22 1530 Cyclobenzaprine HCl (Cyclobenzaprine HCl) 10 Mg Tablet, 10 MG PO HS, (Reported) Entered as Reported by: GUILLERMINA THORPE on 02/18/20 1856 Diltiazem HCl (Diltiazem 24Hr Cd) 240 Mg Cap.er.24h, 240 MG PO DAILY Prescribed by: ARACELY REYES on 04/13/22 1236 Dulaglutide (Trulicity) 1.5 Mg/0.5 Ml Pen.injctr, 1.5 MG SQ UD, (Reported) Entered as Reported by: LIONEL MCKAY on 01/24/22 1530 Empagliflozin (Jardiance) 25 Mg Tablet, 25 MG PO DAILY, (Reported) Entered as Reported by: LIONEL MCKAY on 01/24/22 1530 Hydrocodone/Acetaminophen (Hydrocodone-Acetamin 7.5-325) 1 Each Tablet, 1 EACH PO Q4H Prescribed by: GIANCARLO OREILLY on 11/29/20 1606 Hydrocodone/Acetaminophen (Hydrocodone-Acetamin 7.5-325) 1 Each Tablet, 1 EACH PO Q4H PRN for PAIN-BREAKTHROUGH Prescribed by: SALMA ESTEVES on 12/06/20 1136 Metformin HCl (Metformin HCl) 500 Mg Tablet, 500 MG PO BID, (Reported) Entered as Reported by: KAJAL ERIC on 12/04/20 1320 Metoprolol Succinate (Metoprolol Succinate) 50 Mg Tab.er.24h, 50 MG PO DAILY, (Reported) Entered as Reported by: YESENIA ANDREWS on 08/07/19 1612 Nifedipine (Nifedipine ER) 30 Mg Tablet.er, 30 MG PO DAILY, (Reported) Entered as Reported by: LIONEL MCKAY on 01/24/22 1530 Ondansetron (Ondansetron Odt) 4 Mg Tab.rapdis, 4 MG PO Q6H PRN for NAUSEA/VOMITING Prescribed by: ROOSEVELT JOHNSTON on 02/20/212128 Pantoprazole Sodium (Pantoprazole Sodium) 40 Mg Tablet.dr, 40 MG PO DAILY, (Reported) Entered as Reported by: GUILLERMINA THORPE on 02/18/20 1850 Rivaroxaban (Xarelto) 2.5 Mg Tablet, 2.5 MG PO BID, (Reported) Entered as Reported by: KAJAL ERIC on 12/04/20 1320 Sitagliptin Phosphate (Januvia) 100 Mg Tablet, 100 MG PO DAILY, (Reported) Entered as Reported by: KAJAL ERIC on 12/04/20 1320 Zolpidem Tartrate (Zolpidem Tartrate) 5 Mg Tablet, 5 MG PO DAILY, (Reported) Entered as Reported by: LIONEL MCKAY on 01/24/22 1530 Past Qlqtoda-Hxsgli-Dsvlei Hx Family Medical History Family Hx: Cardiovascular disease 19 FATHER Completed stroke 19 FATHER Diabetes mellitus 19 MOTHER Myocardial infarction 19 FATHER Supervisory-Addendum Brief Verification & Attestation Participated in pt care: history, MDM, physical Personally performed: exam, history, MDM, supervision of care Care discussed with: Medical Student Procedures: n/a Results interpretation: Verified all documentation Verification and Attestation of Medical Student E/M Service A medical student performed and documented this service in my presence. I reviewed and verified all information documented by the medical student and made modifications to such information, when appropriate. I personally performed the physical exam and medical decision making. Aracely Reyes, Apr 13, 2022,12:33 BEAR BARRON Apr 13, 2022 12:27 ARACELY REYES MD Apr 13, 2022 12:36
[2022-04-13] MEDS ORDERED: APIX5TAB PO (12:36)
[2022-04-13] MEDS ORDERED: DILT240C90 PO (12:36)
--- NOTE | 2022-04-13 12:39 | Discharge Inst-Simple/Standard ---
Discharge Inst-Standard Discharge Medications New, Converted or Re-Newed RX: Transmitted to Pharmacy Patient Instructions/Follow Up Plan of Care/Instructions/FU: Please continue to take your medications as written. Please follow up with your primary care doctor to follow up this hospital stay. Activity as Tolerated: Yes Discharge Diet: Cardiac Diet Return to The Hospital For: Chest pain, shortness of breath, racing heart, passing out or near passing out, weakness, abdominal pain, if you feel you are getting worse. ARACELY REYES MD Apr 13, 2022 12:39 pm
[2022-04-13] MEDS ORDERED: RIVAROXABAN 20 MG TABLET (XARELTO) PO NR (13:30)
[2022-04-13] MEDS ORDERED: CARV6.252 PO (13:51)
[2022-04-13 14:02] VITALS: BP 108/69
[2022-04-13] MEDS ORDERED: IOHEXOL 350 MG/ML 100 ML (OMNIPAQUE 350) VIAL IV ONE (14:15)
[2022-04-13] MEDS ORDERED: NS 100 ML (IVPB) BAG IV ONE (14:15)
--- NOTE | 2022-04-13 14:31 | Diagnostic Imaging Report ---
PROCEDURE: CT chest with contrast only. TECHNIQUE: Multiple contiguous axial images were obtained through the chest after administration of intravenous contrast. Auto Exposure Controls were utilized during the CT exam to meet ALARA standards for radiation dose reduction. DATE: April 13, 2022. COMPARISON: Chest radiograph April 12, 2022. INDICATION: 61-year-old male, chest pain, shortness of breath. FINDINGS: There is mild pleural parenchymal scarring in the lung apices bilaterally. There is no identified pulmonary nodule or lung mass. There is no otherwise noted focal airspace consolidation. There is no pneumothorax. There is no pleural effusion. The central airways are patent. There is no identified central or segmental pulmonary embolus. The heart is not enlarged. There is no identified pericardial effusion. There is a right hilar lymph node measuring 6 mm in short axis. There is a precarinal lymph node measuring approximately 7 mm in short axis on axial image 66. There is no mediastinal, hilar, or axillary lymph node which specifically meets CT size criteria for adenopathy. There does appear to be long segment mild mucosal enhancement of the esophagus. This may reflect esophagitis, especially given the long segment length. The gallbladder is surgically absent. There is mild distention of the stomach with internal debris. There are atherosclerotic calcifications. There are prior kyphoplasty changes of T12. There is no identified acute bony abnormality. IMPRESSION: CT CHEST. 1. No identified acute cardiopulmonary abnormality. 2. No pericardial effusion. 3. Long segment mild mucosal enhancement of the esophagus which may reflect esophagitis. Dictated by: Dictated on workstation # [id number]
--- NOTE | 2022-04-13 16:38 | Consultation-Cardiology ---
HPI-Cardiology Cardiology Consultation: Date of Consultation 04/13/22 Time Seen by a Provider: 15:40 Date of Admission Attending Physician Thomas Ferraro MD Admitting Physician Admitting Physician: Aracely Shahid MD Attending Physician: Aracely Shahid MD Consulting Physician ZEE SOUSA MD, MA, FACP, FACC, [facility], CCDS Physician requesting consult: Dr Shahid HPI: Chief Complaint: Reason for Card consult: PAF 61 yo man who was admitted through the eR on 04/12/22 after he presented with palp and gen malaise and was found to have A Fib with RVR that converted to sinus after he received an iv bolus of dilt and was then started on oral dilt and oral anticoag. He states he has had intermittent palp for a long time. Denies cp or syncope. Denies shortness of breath. Has chronic coldness of legs. Denies recent leg discoloration or pain. Denies focal weakness. Notes gen malaise and weakness. Denies n/v/d Review of Systems-Cardiology Review of Systems Constitutional: malaise, tiredness; No weight loss Eyes: No vision change Ears/Nose/Throat: No ear discharge, No nasal drainage, No recent hearing loss Respiratory: As described under HPI Cardiovascular: As described under HPI Gastrointestinal: As described under HPI Genitourinary: No dysuria, No urine frequency changes Musculoskeletal: As describe under HPI; No back pain, No joint pain Skin: No rash, No ulcerations Psychiatric/Neurological: No focal weakness, No syncope Hematologic: No bleeding abnormalities SBD-Alyvdb-Srqrme Hx Patient Social History Smoking Status: Current Everyday Smoker 2nd Hand Smoke Exposure: No Have you traveled recently?: No Alcohol Use?: No Pt feels they are or have been: No Immunizations Up To Date Tetanus Booster (TDap): Unknown Past Medical History PMH As described under Assessment. Family Medical History Family History: Cardiovascular disease 19 FATHER Completed stroke 19 FATHER Diabetes mellitus 19 MOTHER Myocardial infarction 19 FATHER Allergies and Home Medications Allergies Coded Allergies: Penicillins (Verified Allergy, Unknown, 02/22/21) cefaclor (Verified Allergy, Unknown, 02/22/21) Patient Home Medication List Home Medication List Reviewed: Yes Alendronate Sodium (Alendronate Sodium) 70 Mg Tablet, 70 MG PO DAILY, (Reported) Entered as Reported by: LIONEL MCKAY on 01/24/22 4954 Last Action: Last Taken Edited Apixaban (Eliquis) 5 Mg Tablet, 5 MG PO BID Prescribed by: ARACELY SHAHID on 04/13/22 1236 Atorvastatin Calcium (Atorvastatin Calcium) 10 Mg Tablet, 10 MG PO DAILY, (Reported) Entered as Reported by: JANETTE GAMBOA on 11/29/20 0942 Last Action: Last Taken Edited Carvedilol (Carvedilol) 6.25 Mg Tablet, 6.25 MG PO BID, (Reported) Entered as Reported by: FOSTER SAMUEL on 04/13/22 1351 Last Action: New Order Cilostazol (Cilostazol) 50 Mg Tablet, 50 MG PO BID, (Reported) Entered as Reported by: GUILLERMINA THORPE on 02/18/20 184 Last Action: Last Taken Edited Clopidogrel Bisulfate (Clopidogrel) 75 Mg Tablet, 75 MG PO DAILY, (Reported) Entered as Reported by: LIONEL MCKAY on 01/24/221529 Last Action: Last Taken Edited Cyclobenzaprine HCl (Cyclobenzaprine HCl) 10 Mg Tablet, 10 MG PO HS, (Reported) Entered as Reported by: GUILLERMINA THORPE on 02/18/201855 Last Action: Last Taken Edited Diltiazem HCl (Diltiazem 24Hr Cd) 240 Mg Cap.er.24h, 240 MG PO DAILY Prescribed by: ARACELY SHAHID on 04/13/22 1236 Dulaglutide (Trulicity) 1.5 Mg/0.5 Ml Pen.injctr, 1.5 MG SQ UD, (Reported) Entered as Reported by: LIONEL MCKAY on 01/24/221529 Last Action: Last Taken Edited Hydrocodone/Acetaminophen (Hydrocodone-Acetamin 7.5-325) 1 Each Tablet, 1 EACH PO Q4H Prescribed by: GIANCARLO OREILLY on 11/29/20 1606 Last Action: Last Taken Edited Pantoprazole Sodium (Pantoprazole Sodium) 40 Mg Tablet.dr, 40 MG PO DAILY, (Reported) Entered as Reported by: GUILLERMINA THORPE on 02/18/201849 Last Action: Last Taken Edited Zolpidem Tartrate (Zolpidem Tartrate) 5 Mg Tablet, 5 MG PO DAILY, (Reported) Entered as Reported by: LIONEL MCKAY on 01/24/221529 Last Action: Last Taken Edited Discontinued Medications Amitriptyline HCl (Amitriptyline HCl) 50 Mg Tablet, 50 MG PO HS, (Reported) Discontinued Reason: No Longer Taking Entered as Reported by: JANETTE GAMBOA on 11/29/20 0942 Last Action: Discontinued Benzonatate (Tessalon Perles) 100 Mg Capsule, 100 MG PO Q6H PRN for COUGH Discontinued Reason: No Longer Taking Prescribed by: ROOSEVELT JOHNSTON on 02/20/212128 Last Action: Discontinued Empagliflozin (Jardiance) 25 Mg Tablet, 25 MG PO DAILY, (Reported) Discontinued Reason: No Longer Taking Entered as Reported by: LIONEL MCKAY on 01/24/221529 Last Action: Discontinued Hydrocodone/Acetaminophen (Hydrocodone-Acetamin 7.5-325) 1 Each Tablet, 1 EACH PO Q4H PRN for PAIN-BREAKTHROUGH Discontinued Reason: Duplicate Order Prescribed by: SALMA ESTEVES on 12/06/20 1136 Last Action: Discontinued Metformin HCl (Metformin HCl) 500 Mg Tablet, 500 MG PO BID, (Reported) Discontinued Reason: No Longer Taking Entered as Reported by: KAJAL ERIC on 12/04/201319 Last Action: Discontinued Metoprolol Succinate (Metoprolol Succinate) 50 Mg Tab.er.24h, 50 MG PO DAILY, (Reported) Discontinued Reason: Duplicate Order Entered as Reported by: YESENIA ANDREWS on 08/07/19 1612 Last Action: Discontinued Nifedipine (Nifedipine ER) 30 Mg Tablet.er, 30 MG PO DAILY, (Reported) Entered as Reported by: LIONEL MCKAY on 01/24/221529 Last Action: Last Taken Edited Ondansetron (Ondansetron Odt) 4 Mg Tab.rapdis, 4 MG PO Q6H PRN for NAUSEA/VOMITING Discontinued Reason: No Longer Taking Prescribed by: ROOSEVELT JOHNSTON on 02/20/212128 Last Action: Discontinued Rivaroxaban (Xarelto) 2.5 Mg Tablet, 2.5 MG PO BID, (Reported) Entered as Reported by: KAJAL ERIC on 12/04/201319 Last Action: Last Taken Edited Sitagliptin Phosphate (Januvia) 100 Mg Tablet, 100 MG PO DAILY, (Reported) Discontinued Reason: No Longer Taking Entered as Reported by: KAJAL ERIC on 12/04/20 1320 Last Action: Discontinued Physical Exam-Cardiology Physical Exam Vital Signs/I&O 04/13/22 04/13/22 04/13/22 04/13/22 05:00 07:00 07:33 07:58 Temp 36.1 Pulse 81 75 84 Resp 16 B/P (MAP) 99/59 (72) Pulse Ox 95 96 96 O2 Delivery Room Air Room Air Room Air 04/13/22 04/13/22 12:32 14:02 Temp 35.9 Pulse 73 78 Resp 16 B/P (MAP) 108/69 (82) Pulse Ox 96 O2 Delivery Room Air 04/13/22 00:00 Intake Total 365.9 ml Output Total 0 ml Balance 365.9 ml Capillary Refill : Less Than 3 Seconds Constitutional: AAO x 3, well-developed, well-nourished HEENT: EOMI, hearing is well preserved; No xanthelasmas are seen Neck: carotid pulses are 2 + bilaterally, with good upstrokes Respiratory: No accessory muscle use; chest expansion is symmetric, chest is bilaterally symmetric, other (fair to good, bilateral air entry) Cardiovascular: regular rate-rhythm, S1 and S2, systolic murmur (soft MARCO A at ca rd basee) Gastrointestinal: No tender; soft; No guarding, No rebound; audible bowel sounds Extremities: other (R BKA, s/p amputation of 1st toe on the L foot, s/p amputation of R little and ring fingers); No clubbing, No cyanosis, No significant edema Skin: normal color, warm/dry; No rash, No ulcerations Data Review Labs Laboratory Tests 04/12/22 16:48: White Blood Count 7.2, Red Blood Count 4.97, Hemoglobin 14.7, Hematocrit 43, Mean Corpuscular Volume 86, Mean Corpuscular Hemoglobin 30, Mean Corpuscular Hemoglobin Concent 35, Red Cell Distribution Width 13.6, Platelet Count 162, Me an Platelet Volume 10.1, Immature Granulocyte % (Auto) 0, Neutrophils (%) (Auto) 73, Lymphocytes (%) (Auto) 19, Monocytes (%) (Auto) 6, Eosinophils (%) (Auto) 2, Basophils (%) (Auto) 0, Neutrophils # (Auto) 5.3, Lymphocytes # (Auto) 1.4, Monocytes # (Auto) 0.4, Eosinophils # (Auto) 0.1, Basophils # (Auto) 0.0, Immature Granulocyte # (Auto) 0.0, Prothrombin Time 16.6H, INR Comment 1.3, Activated Partial Thromboplast Time 51H, Sodium Level 140, Potassium Level 3.9, Chloride Level 109H, Carbon Dioxide Level 20L, Anion Gap 11, Blood Urea Nitrogen 12, Creatinine 0.83, Estimat Glomerular Filtration Rate 100, BUN/Creatinine Ratio 14, Glucose Level 110H, Calcium Level 9.1, Corrected Calcium 9.2, Magnesium Level 2.1, Total Bilirubin 0.6, Aspartate Amino Transf (AST/SGOT) 16, Alanine Aminotransferase (ALT/SGPT) 14, Alkaline Phosphatase 66, Myoglobin 38.3, Troponin I < 0.028, B-Type Natriuretic Peptide 31.2, Total Protein 7.2, Albumin 3.9 04/13/22 04:29: White Blood Count 6.3, Red Blood Count 4.47, Hemoglobin 13.1L, Hematocrit 39L, Mean Corpuscular Volume 87, Mean Corpuscular Hemoglobin 29, Mean Corpuscular Hemoglobin Concent 34, Red Cell Distribution Width 13.8, Platelet Count 152, Mean Platelet Volume 10.1, Immature Granulocyte % (Auto) 0, Neutrophils (%) (Auto) 62, Lymphocytes (%) (Auto) 28, Monocytes (%) (Auto) 7, Eosinophils (%) (Auto) 2, Basophils (%) (Auto) 0, Neutrophils # (Auto) 3.9, Lymphocytes # (Auto) 1.8, Monocytes # (Auto) 0.5, Eosinophils # (Auto) 0.2, Basophils # (Auto) 0.0, Immature Granulocyte # (Auto) 0.0, Sodium Level 140, Potassium Level 3.9, Chloride Level 108H, Carbon Dioxide Level 23, Anion Gap 9, Blood Urea Nitrogen 11, Creatinine 0.81, Estimat Glomerular Filtration Rate 101, BUN/Creatinine Ratio 14, Glucose Level 109H, Calcium Level 8.6, Triglycerides Level 133, Cholesterol Level 125, LDL Cholesterol Direct 76, VLDL Cholesterol 27, HDL Cholesterol 34L Laboratory Tests 04/12/22 16:48 04/13/22 04:29 A/P-Cardiology Assessment/Admission Diagnosis PAF diagnosed on 04/12/22 - Echo on 04/13/22: LVEF 60-65%, mild MR, PASP 20-25 mmHg, suspected localized pericardial fluid (but none found on subsequent CT chest with contrast) - CT chest with contrast on 04/13/22: No identified acute cardiopulmonary abnormality. No pericardial effusion. Long segment mild mucosal enhancement of the esophagus which may reflect esophagitis. PAD - h/o multiple PCI to R leg, ultimately unsuccessful and leading to R BKA in or around 2018. PAD has been followed by Dr Muhammad and Dr Argueta at [place], [place] - s/p amputation of great toe on the L Exercise MPI of July 07, 2017 showed no evidence of any significant myocardial ischemia or infarction. Normal regional wall motion. LVEF 81% Chronic tobacco use Chronic abnormal ECG that shows incomp RBBB vs RVH Status post accidental amputation of the R little and ring fingers several years ago Peripheral neuropathy with stocking distribution Discussion and Recomendations * Advised to quit smoking immediately and completely * Long-acting dilt for vent rate control * Apixaban for stroke prophylaxis * Advised outpt cardiac f/u * Advised continuing f/u on PAD with Dr Argueta * Discussed his CV issues with him and his * Discussed his case on the phone with Dr Shahid Clinical Quality Measures AMI/AHF: ASA po Prior to arrival: Yes ZEE SOUSA MD FACP FAC CCDS Apr 13, 2022 16:38
[2022-04-14] MEDS ORDERED: RIVAROXABAN 20 MG TABLET (XARELTO) PO SCH (17:00)
== END 2022-04-13 16:02 | disposition home or self-care (01) ==
LOC: EDUNIT# 16:22 → ER 16:23 → UNDOADMOB 18:31 → CSD 18:31 → UNDODISOB 04-13 16:02
PROVIDERS: ADMIT Family Medicine; ATTEND Family Medicine
DX: I48.0 Paroxysmal atrial fibrillation (principal); I73.9 Peripheral vascular disease, unspecified; G62.9 Polyneuropathy, unspecified; R94.31 Abnormal electrocardiogram [ECG] [EKG]; F17.290 Nicotine dependence, other tobacco product, uncomplicated; Z89.021 Acquired absence of right finger(s); Z79.899 Other long term (current) drug therapy
CPT/HCPCS: 71045; 71260; 80048; 80053; 80061; 83735; 83874; 83880; 84484; 85025 ×2; 85610; 85730; 93041; 99284; C8929; 36415; 93005; 93306; 96375